=== PATIENT | male | born 1955 | race Caucasian/White ===

== ENCOUNTER 2023-05-10 16:28 | Outpatient (RCR) | payer MEDICARE, SELFPAY | END 2023-08-18 12:00 | disposition home or self-care (01) | LOC: PT 16:28 | PROVIDERS: PCP Internal Medicine | DX: Z96.651 Presence of right artificial knee joint (principal) | CPT/HCPCS: 97110; 97112; 97161; 97530 ==

== ENCOUNTER 2023-06-02 14:13 | Emergency (ER) | payer MEDICARE, OTHER, SELFPAY ==
[2023-06-02 14:30] VITALS: BP 112/78; PULSE 83; RESP 20; O2SAT 99; BMI 28.6
== END 2023-06-02 16:26 | disposition left against medical advice (07) ==
LOC: ER 14:23
PROVIDERS: Emergency Provider Emergency Medicine; PCP Internal Medicine
DX: Z53.21 Procedure and treatment not carried out due to patient leaving prior to being seen by health care provider (principal)

== ENCOUNTER 2023-06-03 02:02 | Inpatient (IN) | payer MEDICARE, SELFPAY ==
[2023-06-03] VITALS (80 sets, daily range): BP systolic 70–125; BP diastolic 40–92; PULSE 24–104; RESP 0–41; TEMP 36.2–36.9; O2SAT 97–100; BMI 27.8; BMI 29.3
--- NOTE | 2023-06-03 02:13 | ED_ITS ---
HPI - GI Bleed General Chief complaint: GI Bleed Stated complaint: WEAKNESS Time Seen by Provider: 06/03/23 02:13 Source: patient Source comment: AND PATIENT Mode of arrival: Wheelchair Limitations: no limitations History of Present Illness HPI Narrative: presents complaining of vomiting blood and tarry stool that started yesterday. feels light headed and has cold sweats when he stands. vomited again this AM. Denies abdominal pain or fever. States he does not take blood thinners and no GERD symptoms. Patient denies past history of cirrhosis or alcohol abuse. No history of varices MD complaint: Reports coffee ground emesis and melena Onset (ago): day(s) Severity: moderate Related Data Home Medications Medication Instructions Recorded Confirmed amlodipine 5 mg-benazepril 40 mg 1 cap PO DAILY 06/03/23 06/03/23 capsule amlodipine 5 mg-benazepril 40 mg 1 cap PO DAILY 06/03/23 06/03/23 capsule aspirin 81 mg tablet,delayed 81 mg PO DAILY 06/03/23 06/03/23 release bupropion HCl 300 mg 24 hr tablet, 300 mg PO DAILY 06/03/23 06/03/23 extended release cyclobenzaprine 10 mg tablet 10 mg PO DAILY 06/03/23 06/03/23 docusate sodium 100 mg capsule 100 mg PO BID 06/03/23 06/03/23 finasteride 5 mg tablet 5 mg PO DAILY 06/03/23 06/03/23 metoprolol succinate 50 mg 50 mg PO DAILY 06/03/23 06/03/23 tablet,extended release 24 hr multivitamin-iron 27 mg-folic acid 1 tab PO DAILY 06/03/23 06/03/23 400 mcg-calcium and minerals tablet (Thera-Tabs M) tamsulosin 0.4 mg capsule 0.4 mg PO DAILY 06/03/23 06/03/23 trazodone 50 mg tablet 50 mg PO DAILY 06/03/23 06/03/23 Allergies Allergy/AdvReac Type Severity Reaction Status Date / Time No Known Drug Allergies Allergy Verified 06/03/23 02:20 Review of Systems ROS Status of ROS 10 or more systems reviewed and unremarkable except as noted in history and below [facility] Surgical History (Updated 06/03/23 @ 02:21 by Sayda Castelan) Social History Smoking status: Never smoker Exam Constitutional Vital Signs, click to edit/add: Last Vital Signs Temp 97.9 F 06/03/23 02:16 Pulse 82 06/03/23 04:15 Resp 20 06/03/23 04:15 BP 107/66 06/03/23 04:15 Pulse Ox 98 06/03/23 04:15 O2 Del Method Room Air 06/03/23 04:15 Common normals: no apparent distress, average body habitus, oriented x3 and alert Eye Common normals: EOMs intact bilaterally and conjunctivae normal Respiratory Common normals: normal respiratory effort, no retractions, no use of accessory muscles and clear to auscultation bilaterally Cardio Common normals: no JVD Rate: tachycardic GI Common normals: Normal to inspection, nondistended, normoactive bowel sounds present, soft to palpation and non-tender Extremity Common normals: normal to inspection and full ROM Neuro Common normals: oriented x3, CN's II-XII intact bilaterally, moves all extremities, no focal motor deficits and no sensory deficits noted Psych Appearance: grossly normal Course Vital Signs Vital signs: Vital Signs Temperature 97.9 F 06/03/23 02:07 Pulse Rate 102 H 06/03/23 02:07 Respiratory Rate 20 06/03/23 02:07 Blood Pressure 112/92 H 06/03/23 02:07 Pulse Oximetry 100 06/03/23 02:07 Oxygen Delivery Method Room Air 06/03/23 02:07 Temperature 97.9 F 06/03/23 02:16 Pulse Rate 82 06/03/23 04:15 Respiratory Rate 20 06/03/23 04:15 Blood Pressure 107/66 06/03/23 04:15 Pulse Oximetry 98 06/03/23 04:15 Oxygen Delivery Method Room Air 06/03/23 04:15 MDM - GI Bleed MDM Narrative Medical decision making narrative: patient presents with UGI bleed. coffee ground emesis and tarry stools. No associated abdominal pain. first vomited Thday night and then again yesterday AM.Came to the ER and waited in the waiting room for a couple of hours and decided to go home. Coffee ground emesis again this AM and light headiness and now he returns. No past history of esophageal varices, GERD or known PUD. He does not take blood thinners. His Hgb is 7.2. He has been given protonix and type and screen for 2U PRBC. His BP systolic did decrease to 76 but has increased after hydration to 107/66 with pulse 80. Discussed with Dr Hines inclusion special education teacher surgeon who is willing to consult on the patient. Discussed with the inclusion special education teacher hospitalist and he would like a CT of the abdomen. CT ordered. CT returns without acute findings. patient admitted to ICU Lab Data Labs: Lab Results 06/03/23 Range/Units 02:05 WBC 9.2 (4.0-11.0) 10^3/uL RBC 2.34 L (4.70-6.10) 10^6/uL Hgb 7.2 L (14.0-18.0) g/dL Hct 22.5 L* (42.0-54.0) % MCV 96.2 H (80.0-94.0) fL MCH 30.8 (25.9-34.0) pg MCHC 32.0 (29.9-35.2) g/dL RDW 13.8 (11.0-15.0) % Plt Count 275 (150-450) 10^3/uL MPV 10.7 (9.5-13.5) fL Neut % (Auto) 61.3 (43.0-75.0) % Lymph % (Auto) 27.8 (20.5-60.0) % [place] % (Auto) 7.7 (1.7-12.0) % Eos % (Auto) 1.8 (0.9-7.0) % Baso % (Auto) 0.5 (0.2-2.0) % Neut # (Auto) 5.6 (1.4-6.5) 10^3/uL Lymph # (Auto) 2.6 (1.2-3.8) 10^3/uL [place] # (Auto) 0.7 (0.3-0.8) 10^3/uL Eos # (Auto) 0.2 (0.0-0.7) 10^3/uL Baso # (Auto) 0.1 (0.0-0.1) 10^3/uL Abs Immat Gran (auto) 0.08 H (0.00-0.03) 10^3/uL Imm/Tot Granulo (auto) 0.9 H (0.0-0.5) % PT 11.9 H (9.0-11.6) sec INR 1.13 Sodium 138 (136-145) mmol/L Potassium 4.0 (3.5-5.1) mmol/L Chloride 105 (98-107) mmol/L Carbon Dioxide 23.5 (21.0-32.0) mmol/L Anion Gap 13.5 BUN 54.0 H (7.0-18.0) mg/dL Creatinine 1.23 (0.70-1.30) mg/dL Est GFR ( Amer) >60 (>=60) Est GFR (Non-Af Amer) 58 L (>=60) BUN/Creatinine Ratio 43.9 Glucose 212 H (74-106) mg/dL Calcium 8.6 (8.5-10.1) mg/dL Total Bilirubin 0.5 (0.2-1.0) mg/dL AST 15 (15-37) U/L ALT 28 (16-63) U/L Alkaline Phosphatase 49 (46-116) U/L Troponin I High Sens 9.9 (4.0-76.1) pg/mL Total Protein 5.9 L (6.4-8.2) g/dL Albumin 3.4 (3.4-5.0) g/dL Globulin 2.5 g/dL Albumin/Globulin Ratio 1.4 Discharge Plan Discharge Chief Complaint: GI Bleed Clinical Impression: Upper gastrointestinal hemorrhage Patient Disposition: Admitted as Observation
--- NOTE | 2023-06-03 02:16 | ECG_ITS ---
The [facility] Test Date: 2023-06-03 Pat Name: SETH PARIS Department: Room: - Gender: Male Civil Designer: : 1955 Requested By: ZARA GALDAMEZ Order Number: [id number] Reading MD: ZARA GALDAMEZ Measurements Intervals [place] Rate: 100 P: -30 VT: 126 QRS: 36 QRSD: 82 T: 48 QT: 334 QTc: 391 Interpretive Statements 1120 Sinus tachycardia 9140 abnormal rhythm ECG No previous ECG available for comparison Electronically Signed On 06-03-2023 14:35:26 EDT by ZARA GALDAMEZ
[2023-06-03 02:55] LABS: Basophils Absolute Auto 0.1 10^3/uL (0.0-0.1); Basophils Percent Auto 0.5 % (0.2-2.0); Eosinophils Absolute Auto 0.2 10^3/uL (0.0-0.7); Eosinophils Percent Auto 1.8 % (0.9-7.0); Hemoglobin 7.2 g/dL (14.0-18.0); Immature Granulocytes Abs Auto 0.08 10^3/uL (0.00-0.03); Immature Granulocytes Pct Auto 0.9 % (0.0-0.5); Lymphocytes Absolute Auto 2.6 10^3/uL (1.2-3.8); Lymphocytes Percent Auto 27.8 % (20.5-60.0); Mean Corpuscular Hemoglobin 30.8 pg (25.9-34.0); Mean Corpuscular Volume 96.2 fL (80.0-94.0); Mean Platelet Volume 10.7 fL (9.5-13.5); Monocytes Absolute Auto 0.7 10^3/uL (0.3-0.8); Monocytes Percent Auto 7.7 % (1.7-12.0); Neutrophils Absolute Auto 5.6 10^3/uL (1.4-6.5); Neutrophils Percent Auto 61.3 % (43.0-75.0); Platelet Count 275 10^3/uL (150-450); Red Blood Count 2.34 10^6/uL (4.70-6.10); Red Cell Distribution Width 13.8 % (11.0-15.0); White Blood Count 9.2 10^3/uL (4.0-11.0)
[2023-06-03 02:56] LABS: INR 1.13; Prothrombin Time 11.9 sec (9.0-11.6)
--- NOTE | 2023-06-03 02:56 | PC.NURSE ---
pt presents to ED, pt states that he was at ER today but it was busy and told it would be a long wait so patient left. pt states that since yesterday he has had n/v and throwing up coffee ground emesis as well as black tarry stools.. pt was told by his pcp saba mcghee that he probably has a GI bleed and to go to ER. pt states that he did have knee replacement surgery 3 weeks ago. no hx of gi bleeds. pt states today he is weak and dizzy and feels like he is going to pass out.
[2023-06-03 02:58] LABS: Hematocrit 22.5 % (42.0-54.0)
[2023-06-03] MEDS: ONDANSETRON PF 4 MG/2 ML VIAL IV (03:02)
[2023-06-03] MEDS: PANTOPRAZOLE SODIUM 40 MG VIAL IV ×2 (03:02→21:01)
[2023-06-03] MEDS: 0.9 % SODIUM CHLORIDE 1,000 ML 999 ML IV (03:02)
[2023-06-03 03:04] LABS: Alanine Aminotransferase 28 U/L (16-63); Albumin Globulin Ratio 1.4; Albumin Level 3.4 g/dL (3.4-5.0); Alkaline Phosphatase 49 U/L (46-116); Anion Gap 13.5; Aspartate Amino Transferase 15 U/L (15-37); BUN Creatinine Ratio 43.9; Bilirubin Total 0.5 mg/dL (0.2-1.0); Calcium 8.6 mg/dL (8.5-10.1); Carbon Dioxide 23.5 mmol/L (21.0-32.0); Chloride 105 mmol/L (98-107); Estimated GFR (African America >60 (>=60); Estimated GFR (Non-African Ame 58 (>=60); Globulin 2.5 g/dL; Glucose 212 mg/dL (74-106); Sodium 138 mmol/L (136-145); Total Protein 5.9 g/dL (6.4-8.2); Troponin I High Sensitivity 9.9 pg/mL (4.0-76.1)
[2023-06-03] MEDS: LORAZEPAM 2 MG/ML 1 ML VIAL 0.5 MG IV (04:37)
[2023-06-03] MEDS: 0.9 % SODIUM CHLORIDE 1,000 ML 75 ML IV (04:41)
--- NOTE | 2023-06-03 04:50 | CT_ITS ---
The [address] [address] Patient Name: SETH PARIS MRN: [id number] date: 1955 Sex: M Assigned Patient Location: ER Current Patient Location: ER Accession/Order Number: [id number] Exam Date: 06/03/2023 05:10 Report Date: 06/03/2023 06:06 At the request of: POLLY BURCIAGA Procedure: CT abdomen pelvis wo con EXAM: CT scan of the abdomen and pelvis without contrast. Dose reduction technique used: Automated exposure control and/or adjustment of the mA and/or kV according to patient size and/or use of iterative reconstruction technique. REASON FOR EXAM: Vomiting, blood in stool COMPARISON: None FINDINGS: NG tube with tip in the stomach. Bilateral renal cysts. Colonic diverticulosis. Left total hip arthroplasty. L2-S1 posterior martinez and pedicle screw fusion, hardware is intact. No renal, ureteral or bladder calculi. No hydronephrosis. Negative appendix. No free fluid in the abdomen or pelvis. No free intraperitoneal air. No dilated or thickened loops of small bowel or colon. Liver, pancreas, spleen, bilateral kidneys, and bilateral adrenal glands are otherwise unremarkable within the limitations of noncontrast CT. No lymphadenopathy in the abdomen or pelvis. Remainder unremarkable. CT/CT abdomen pelvis wo con IMPRESSION: No acute abnormalities in the abdomen or pelvis. Electronically authenticated by: MIKEY CORONADO Date: 06/03/2023 06:06
--- NOTE | 2023-06-03 06:03 | PC.NURSE ---
called poison control. Told them patient took 60xanax, 2 tramadol and a med bottle of vodka. Poison control stated that it would be supportive care and that patient shouldn't get any worse but will remain somulant for a long time, possible 6-12 hours. they recommended labs to check for acetomenophen and aspirin levels.
--- NOTE | 2023-06-03 08:13 | P.HP_ITS ---
H&P: HPI History of Present Illness Chief complaint: WEAKNESS Narrative: patient is a 67-year-old male with past medical history of hypertension, chronic pain due to multiple orthopedic surgeries,benign prostatic hypertrophy,insomnia. Recent reports several weeks ago he had his right knee replaced and since that time has been placed on Celebrex for pain control. He also has a prescription for medical marijuana but he also uses for pain control. He has been taking a baby aspirin along with Celebrex daily. approximately one day ago had two episodes of vomiting blood and dark red bowel movements. He denies any history of GERD, or peptic ulcer disease he also denies any abdominal pain associated with this. Patient denies any fevers or chills said yesterday he developed some dizziness and slight shortness of breath and tachycardia which led him to come to the emergency department. At the time of admission patient feels as if he has improved since the two units of blood have been transfused. We discussed the plan to consult surgery for an EGD today. Review of Systems ROS Narrative ROS: a complete review of systems were reviewed with patient and are positive as below or listed in History of Chief Complaint. General: no fever, chills, night sweats Head: no headache, trauma, visual changes, nausea or vomiting Skin: no reported rashes, itching or sores Eyes: no blurriness of vision Ears: no reported hearing loss, vertigo, earache, or tinnitus Throat: no sore throat, hoarseness, swelling of neck, or tongue pain Heart: no chest pain Lungs: no shortness of breath or cough GI: no diarrhea, vomiting blood x 2 Urinary: no urinary urgency, frequency or pain Neuro: no numbness or tingling HEM:bleeding ENDO: no thyroid problems Psych: no anxiety or depression PFSH PFSH Surgical History Family History Grandmother Family history of cancer, Onset Age: 60 Son Family history of cancer, Onset Age: 17 Father Family history of diabetes mellitus Family history of myocardial infarction, Onset Age: 50 Mother Family history of myocardial infarction, Onset Age: 80 Social History Smoking status: Never smoker Gender Identity: male Meds Home Medications and Allergies Home Medications Medication Instructions Recorded Confirmed Type amlodipine 5 mg-benazepril 40 mg 1 cap PO DAILY 06/03/23 06/03/23 History capsule amlodipine 5 mg-benazepril 40 mg 1 cap PO DAILY 06/03/23 06/03/23 History capsule aspirin 81 mg tablet,delayed 81 mg PO DAILY 06/03/23 06/03/23 History release bupropion HCl 300 mg 24 hr tablet, 300 mg PO DAILY 06/03/23 06/03/23 History extended release cyclobenzaprine 10 mg tablet 10 mg PO DAILY 06/03/23 06/03/23 History docusate sodium 100 mg capsule 100 mg PO BID 06/03/23 06/03/23 History finasteride 5 mg tablet 5 mg PO DAILY 06/03/23 06/03/23 History metoprolol succinate 50 mg 50 mg PO DAILY 06/03/23 06/03/23 History tablet,extended release 24 hr multivitamin-iron 27 mg-folic acid 1 tab PO DAILY 06/03/23 06/03/23 History 400 mcg-calcium and minerals tablet (Thera-Tabs M) tamsulosin 0.4 mg capsule 0.4 mg PO DAILY 06/03/23 06/03/23 History trazodone 50 mg tablet 50 mg PO DAILY 06/03/23 06/03/23 History Allergies Allergy/AdvReac Type Severity Reaction Status Date / Time No Known Drug Allergies Allergy Verified 06/03/23 02:20 Exam Narrative Exam Narrative: General: Patient is alert, and oriented to person, place and time with normal affect, proper hygiene Skin: no visible rashes, or ulcers Head: atraumatic, acephalic Eyes: PERRLA, no nystagmus present, conjunctiva clear, no scleral icterus Ears: normal Tympanic Membrane, normal gross auditory acuity Nose: symmetric, no discharge, no maxillary or frontal sinus tenderness Mouth/Throat: no erythema, exudate, or tonsillar enlargement, normal dentition Neck: no masses palpated, normal thyroid, no JVD or audible carotid bruits Heart: Normal rate and rhythm, no murmurs/rubs/gallops Lungs: no audible wheezes, crackles and normal breath sounds all lung brito Abdomen: Normal audible bowel sounds, no distension, No palpable masses, no organomegaly, no rebound/guarding/ or rigidity Musculoskeletal: muscle atrophy noted, ROM is limited due to being in hospital bed, no swelling bilateral lower extremities Vascular: Normal carotid, radial, femoral, posterior tibial, and dorsalis pedis pulses Lymph: no supraclavicular, axillary, or anterior/posterior cervical adenopathy Neuro: CN II-X grossly intact, normal sensation upper and lower extremities Constitutional Vital Signs, click to edit/add: Last Vital Signs Temp 98.2 F 06/03/23 07:44 Pulse 78 06/03/23 07:44 Resp 21 06/03/23 07:44 BP 105/66 06/03/23 07:44 Pulse Ox 97 06/03/23 07:44 O2 Del Method Room Air 06/03/23 07:44 Results Labs Labs: Short CBC 06/03/23 Range/Units 02:05 WBC 9.2 (4.0-11.0) 10^3/uL Hgb 7.2 L (14.0-18.0) g/dL Hct 22.5 L* (42.0-54.0) % Plt Count 275 (150-450) 10^3/uL BMP 06/03/23 02:05 Sodium 138 Potassium 4.0 Chloride 105 Carbon Dioxide 23.5 BUN 54.0 H Creatinine 1.23 Glucose 212 H Calcium 8.6 Liver Function 06/03/23 Range/Units 02:05 Total Bilirubin 0.5 (0.2-1.0) mg/dL AST 15 (15-37) U/L ALT 28 (16-63) U/L Alkaline Phosphatase 49 (46-116) U/L Albumin 3.4 (3.4-5.0) g/dL Assessment and Plan Assessment and Plan (1) Upper gastrointestinal hemorrhage: Assessment and Plan: patient was typed and screened and transfused two units of PRBCs, tolerated the transfusion well repeat H and H today was 8.2. Patient has remained nothing by mouth for EGD today. Most likely ulcer, will place on Protonix 40 mg every 12 hours. Most likely from the Celebrex and aspirin combination which will be held throughout his hospital stay. Tylenol as needed for pain will also continue IV fluids with LR at one fifty (2) Total knee replacement status: Assessment and Plan: recent surgery is being undergoing outpatient PT OT. (3) Hypertension: Assessment and Plan: continue home amlodipine and benazepril, and metoprolol (4) BPH (benign prostatic hyperplasia): Assessment and Plan: continue Flomax and finasteride (5) Insomnia: Assessment and Plan: continue trazodone Plan patient is a full code SCDs for prophylaxis given patient's active bleeding Patient is under inpatient status is expected to stay more than two days, surge ry consult for EGD
[2023-06-03] MEDS: LACTATED RINGER'S SOLUTION 1,000 ML 150 ML IV (08:46)
--- NOTE | 2023-06-03 09:07 | PC.NURSE ---
06/03/23 0908 call placed out to dr weathers for general surgeon consult, along with pharmacy contacted to change timing of protonix due to administered in er this am at 0300. Carlos Pierre RN
[2023-06-03] MEDS: ACETAMINOPHEN 325 MG TABLET PO (11:16)
[2023-06-03 11:41] LABS: Basophils Percent Auto 0.5 % (0.2-2.0); Eosinophils Absolute Auto 0.1 10^3/uL (0.0-0.7); Eosinophils Percent Auto 1.3 % (0.9-7.0); Hematocrit 24.8 % (42.0-54.0); Hemoglobin 8.2 g/dL (14.0-18.0); Immature Granulocytes Abs Auto 0.05 10^3/uL (0.00-0.03); Immature Granulocytes Pct Auto 0.7 % (0.0-0.5); Lymphocytes Absolute Auto 1.9 10^3/uL (1.2-3.8); Lymphocytes Percent Auto 24.3 % (20.5-60.0); Mean Corpuscular HGB Conc 33.1 g/dL (29.9-35.2); Mean Corpuscular Hemoglobin 30.3 pg (25.9-34.0); Mean Corpuscular Volume 91.5 fL (80.0-94.0); Mean Platelet Volume 10.2 fL (9.5-13.5); Monocytes Absolute Auto 0.6 10^3/uL (0.3-0.8); Monocytes Percent Auto 8.1 % (1.7-12.0); Neutrophils Percent Auto 65.1 % (43.0-75.0); Platelet Count 164 10^3/uL (150-450); Red Blood Count 2.71 10^6/uL (4.70-6.10); Red Cell Distribution Width 14.2 % (11.0-15.0); White Blood Count 7.7 10^3/uL (4.0-11.0)
--- NOTE | 2023-06-03 12:27 | P.GSCN_ITS ---
History of Present Illness Consult details Consult date: 06/03/23 Narrative: patient is a 67-year-old male who presents emergency department yesterday with episodes of coffee-ground emesis as well as melanotic stools. This process began the night prior. He is approximately three weeks status post total knee replacement and has been on Celebrex and aspirin during his recovery. He denies any similar previous episodes. He has not taken any significant amount of anti- inflammatory agents prior to this. He is not on any anticoagulation. He denies any prior stomach related problems. Review of Systems ROS Narrative negative except HPI PFSH PFSH Surgical History (Updated 06/03/23 @ 02:21 by Sayda Castelan) Family History (Updated 06/03/23 @ 10:45 by Jagruti Pierre) Grandmother Family history of cancer, Onset Age: 60 Son Family history of cancer, Onset Age: 17 Father Family history of diabetes mellitus Family history of myocardial infarction, Onset Age: 50 Mother Family history of myocardial infarction, Onset Age: 80 Social History Smoking status: Never smoker Gender Identity: male Meds Home Medications and Allergies Home Medications Medication Instructions Recorded Confirmed Type amlodipine 5 mg-benazepril 40 mg 1 cap PO DAILY 06/03/23 06/03/23 History capsule amlodipine 5 mg-benazepril 40 mg 1 cap PO DAILY 06/03/23 06/03/23 History capsule aspirin 81 mg tablet,delayed 81 mg PO DAILY 06/03/23 06/03/23 History release bupropion HCl 300 mg 24 hr tablet, 300 mg PO DAILY 06/03/23 06/03/23 History extended release cyclobenzaprine 10 mg tablet 10 mg PO DAILY 06/03/23 06/03/23 History docusate sodium 100 mg capsule 100 mg PO BID 06/03/23 06/03/23 History finasteride 5 mg tablet 5 mg PO DAILY 06/03/23 06/03/23 History metoprolol succinate 50 mg 50 mg PO DAILY 06/03/23 06/03/23 History tablet,extended release 24 hr multivitamin-iron 27 mg-folic acid 1 tab PO DAILY 06/03/23 06/03/23 History 400 mcg-calcium and minerals tablet (Thera-Tabs M) tamsulosin 0.4 mg capsule 0.4 mg PO DAILY 07/15/23 07/15/23 History trazodone 50 mg tablet 50 mg PO DAILY 06/03/23 06/03/23 History Allergies Allergy/AdvReac Type Severity Reaction Status Date / Time No Known Drug Allergies Allergy Verified 06/03/23 02:20 Exam Constitutional Vital Signs, click to edit/add: Last Vital Signs Temp 98.4 F 06/03/23 11:00 Pulse 71 06/03/23 12:11 Resp 15 06/03/23 12:11 BP 121/72 H 06/03/23 12:11 Pulse Ox 99 06/03/23 12:11 O2 Del Method Room Air 06/03/23 12:11 HENMT Common normals: normocephalic Neck & C-Spine Common normals: supple GI Common normals: Normal to inspection, nondistended, normoactive bowel sounds present and non-tender Neuro Common normals: oriented x3 Psych Common normals: mental status grossly normal Results Labs Labs: Abnormal lab results 06/03/23 06/03/23 06/03/23 Range/Units 02:05 03:05 11:26 RBC 2.34 L 2.71 L (4.70-6.10) 10^6/uL Hgb 7.2 L 8.2 L (14.0-18.0) g/dL Hct 22.5 L* 24.8 L (42.0-54.0) % MCV 96.2 H (80.0-94.0) fL Abs Immat Gran (auto) 0.08 H 0.05 H (0.00-0.03) 10^3/uL Imm/Tot Granulo (auto) 0.9 H 0.7 H (0.0-0.5) % PT 11.9 H (9.0-11.6) sec BUN 54.0 H (7.0-18.0) mg/dL Est GFR (Non-Af Amer) 58 L (>=60) Glucose 212 H (74-106) mg/dL Total Protein 5.9 L (6.4-8.2) g/dL Crossmatch See Detail Diabetes panel 06/03/23 Range/Units 02:05 Sodium 138 (136-145) mmol/L Potassium 4.0 (3.5-5.1) mmol/L Chloride 105 (98-107) mmol/L Carbon Dioxide 23.5 (21.0-32.0) mmol/L BUN 54.0 H (7.0-18.0) mg/dL Creatinine 1.23 (0.70-1.30) mg/dL Glucose 212 H (74-106) mg/dL Calcium 8.6 (8.5-10.1) mg/dL AST 15 (15-37) U/L ALT 28 (16-63) U/L Alkaline Phosphatase 49 (46-116) U/L Total Protein 5.9 L (6.4-8.2) g/dL Albumin 3.4 (3.4-5.0) g/dL Calcium panel 06/03/23 Range/Units 02:05 Calcium 8.6 (8.5-10.1) mg/dL Albumin 3.4 (3.4-5.0) g/dL Pituitary panel 06/03/23 Range/Units 02:05 Sodium 138 (136-145) mmol/L Potassium 4.0 (3.5-5.1) mmol/L Chloride 105 (98-107) mmol/L Carbon Dioxide 23.5 (21.0-32.0) mmol/L BUN 54.0 H (7.0-18.0) mg/dL Creatinine 1.23 (0.70-1.30) mg/dL Glucose 212 H (74-106) mg/dL Calcium 8.6 (8.5-10.1) mg/dL Adrenal panel 06/03/23 Range/Units 02:05 Sodium 138 (136-145) mmol/L Potassium 4.0 (3.5-5.1) mmol/L Chloride 105 (98-107) mmol/L Carbon Dioxide 23.5 (21.0-32.0) mmol/L BUN 54.0 H (7.0-18.0) mg/dL Creatinine 1.23 (0.70-1.30) mg/dL Glucose 212 H (74-106) mg/dL Calcium 8.6 (8.5-10.1) mg/dL Total Bilirubin 0.5 (0.2-1.0) mg/dL AST 15 (15-37) U/L ALT 28 (16-63) U/L Alkaline Phosphatase 49 (46-116) U/L Total Protein 5.9 L (6.4-8.2) g/dL Albumin 3.4 (3.4-5.0) g/dL All other labs normal. Assessment and Plan Assessment and Plan (1) Upper gastrointestinal hemorrhage: Plan Assessment - probable upper gastrointestinal bleed, patient is currently clinically stable and doubt there is continued active bleeding. Plan - will proceed with upper endoscopy today to evaluate possible etiology, continue PPI therapy
[2023-06-03] MEDS: LACTATED RINGER'S SOLUTION 1,000 ML 50 ML IV (12:29)
--- NOTE | 2023-06-03 13:35 | P.GSPRC_ITS ---
Date of procedure: 06/03/23 Indications for Procedure: Patient is a 67-year-old male who presented to the emergency department yesterday with episodes of coffee-ground emesis as well as melanotic stools. Clinically this was consistent with a gastrointestinal bleed and he was noted to be anemic. He was admitted to the ICU and transfused two units packed red blood cells. He remained hemodynamically stable. With these findings upper endoscopy was recommended. The risks benefits options and potential complications of the procedure were discussed in detail the patient and his and he agrees to proceed and consent was signed. Pre-op diagnosis: upper gastrointestinal bleed Post-op diagnosis: same (and gastric ulcer) Procedure: EGD with biopsy Anesthesia: MAC Surgeon: Yimi Hines Procedure Summary: The patient was brought to the endoscopy suite and placed in the supine and upright position. Under MAC a bite block was placed. The fiberoptic endoscope was passed through the oropharynx into the esophagus. This is easily advanced into the stomach. The stomach was insufflated. No blood was noted within the stomach. Upon inspection prepyloric region there appeared to be a few small gastric ulcers. Again no bleeding was evident. The endoscope was passed through the pylorus into the duodenum. The 1st and 2nd portions of the duodenum appeared unremarkable. The endoscope was then withdrawn into the stomach and retroflexed. The upper portion of the stomach appeared grossly normal. Antral biopsies were obtained ?2. Both sites were hemostatic. The gastroesophageal junction was visualized. This again appeared unremarkable. The stomach was decompressed. The remainder of the esophagus appeared unremarkable on final withdrawal of endosc ope and the procedure was ended. The patient tolerated the procedure well and was transferred to the recovery area in stable condition. Estimated blood loss (mL): 1 Specimens: antral biopsy ?2 Complications: No
[2023-06-04] VITALS (27 sets, daily range): BP systolic 109; BP diastolic 78; PULSE 64–86; RESP 0–22; TEMP 36.3; O2SAT 98
[2023-06-04 05:22] LABS: Basophils Percent Auto 0.7 % (0.2-2.0); Eosinophils Absolute Auto 0.3 10^3/uL (0.0-0.7); Eosinophils Percent Auto 4.2 % (0.9-7.0); Immature Granulocytes Abs Auto 0.03 10^3/uL (0.00-0.03); Immature Granulocytes Pct Auto 0.5 % (0.0-0.5); Lymphocytes Absolute Auto 1.7 10^3/uL (1.2-3.8); Mean Corpuscular HGB Conc 33.6 g/dL (29.9-35.2); Mean Corpuscular Hemoglobin 30.7 pg (25.9-34.0); Mean Corpuscular Volume 91.2 fL (80.0-94.0); Mean Platelet Volume 10.4 fL (9.5-13.5); Monocytes Absolute Auto 0.5 10^3/uL (0.3-0.8); Monocytes Percent Auto 7.7 % (1.7-12.0); Neutrophils Absolute Auto 3.7 10^3/uL (1.4-6.5); Neutrophils Percent Auto 59.9 % (43.0-75.0); Platelet Count 149 10^3/uL (150-450); Red Blood Count 2.61 10^6/uL (4.70-6.10); Red Cell Distribution Width 14.6 % (11.0-15.0); White Blood Count 6.1 10^3/uL (4.0-11.0)
[2023-06-04 05:33] LABS: Alanine Aminotransferase 28 U/L (16-63); Albumin Globulin Ratio 1.3; Albumin Level 3.1 g/dL (3.4-5.0); Alkaline Phosphatase 42 U/L (46-116); Anion Gap 12.3; Aspartate Amino Transferase 19 U/L (15-37); BUN Creatinine Ratio 30.4; Bilirubin Total 0.8 mg/dL (0.2-1.0); Calcium 8.4 mg/dL (8.5-10.1); Carbon Dioxide 25.6 mmol/L (21.0-32.0); Chloride 106 mmol/L (98-107); Estimated GFR (African America >60 (>=60); Estimated GFR (Non-African Ame >60 (>=60); Globulin 2.4 g/dL; Glucose 101 mg/dL (74-106); Potassium 3.9 mmol/L (3.5-5.1); Sodium 140 mmol/L (136-145); Total Protein 5.5 g/dL (6.4-8.2)
[2023-06-04 05:49] LABS: Hematocrit 23.8 % (42.0-54.0)
--- NOTE | 2023-06-04 08:39 | PM.DS1 ---
DS: Providers Provider Date of admission: 06/03/23 07:37 Primary care physician: Stevan Mitchell DO Admitting clinician: Sudeep Greene Consults: 06/03/23 08:05 Consult to General Surgeon Routine Consulting Provider: Yimi Hines Discharging clinician: Dolores Newton DS: Diagnosis Discharge Diagnosis (1) Upper gastrointestinal hemorrhage: (2) Total knee replacement status: (3) Hypertension: (4) BPH (benign prostatic hyperplasia): (5) Insomnia: DS: Summary Hospital Course Hospital Course: (1) Upper gastrointestinal hemorrhage: ?Assessment and Plan: patient was typed and screened and transfused two units of PRBCs, tolerated the transfusion well repeat H and H today was 8.0. Had EGD with diagnosis of ulcer, will place on Protonix 40 mg PO every 12 hours. Most likely from the Celebrex and aspirin combination which will be held throughout his hospital stay should be held at home. carafate at home as well. (2) Total knee replacement status: ?Assessment and Plan: recent surgery is being undergoing outpatient PT OT. (3) Hypertension: ?Assessment and Plan: continue home amlodipine and benazepril, and metoprolol (4) BPH (benign prostatic hyperplasia): ?Assessment and Plan: continue Flomax and finasteride (5) Insomnia: ?Assessment and Plan: continue trazodone Status at Discharge Functional status at discharge: independent ambulation Overall status at discharge: patient is back to baseline Time Spent with Patient Time attestation: Total time spent providing and/or coordinating discharge services: Exam Narrative Exam Narrative: General: Patient is alert, and oriented to person, place and time with normal affect, proper hygiene Skin: no visible rashes, or ulcers Head: atraumatic, acephalic Eyes: PERRLA, no nystagmus present, conjunctiva clear, no scleral icterus Ears: normal Tympanic Membrane, normal gross auditory acuity Nose: symmetric, no discharge, no maxillary or frontal sinus tenderness Mouth/Throat: no erythema, exudate, or tonsillar enlargement, normal dentition Neck: no masses palpated, normal thyroid, no JVD or audible carotid bruits Heart: Normal rate and rhythm, no murmurs/rubs/gallops Lungs: no audible wheezes, crackles and normal breath sounds all lung brito Abdomen: Normal audible bowel sounds, no distension, No palpable masses, no organomegaly, no rebound/guarding/ or rigidity Musculoskeletal: muscle atrophy noted, ROM is limited due to being in hospital bed, no swelling bilateral lower extremities Vascular: Normal carotid, radial, femoral, posterior tibial, and dorsalis pedis pulses Lymph: no supraclavicular, axillary, or anterior/posterior cervical adenopathy Neuro: CN II-X grossly intact, normal sensation upper and lower extremities Constitutional Vital Signs, click to edit/add: Last Vital Signs Temp 97.3 F L 06/04/23 03:00 Pulse 80 06/04/23 08:00 Resp 21 06/04/23 03:10 BP 109/78 06/04/23 03:00 Pulse Ox 98 06/04/23 03:00 O2 Del Method Room Air 06/03/23 14:27 DS: Data Data Completed and Pending Labs on day of discharge: Labs from last 24 hours 06/04/23 06/03/23 06/03/23 03:50 11:26 03:05 WBC 6.1 7.7 RBC 2.61 L 2.71 L Hgb 8.0 L 8.2 L Hct 23.8 L* 24.8 L MCV 91.2 91.5 MCH 30.7 30.3 MCHC 33.6 33.1 RDW 14.6 14.2 Plt Count 149 L 164 MPV 10.4 10.2 Neut % (Auto) 59.9 65.1 Lymph % (Auto) 27.0 24.3 [place] % (Auto) 7.7 8.1 Eos % (Auto) 4.2 1.3 Baso % (Auto) 0.7 0.5 Neut # (Auto) 3.7 5.0 Lymph # (Auto) 1.7 1.9 [place] # (Auto) 0.5 0.6 Eos # (Auto) 0.3 0.1 Baso # (Auto) 0.0 0.0 Abs Immat Gran (auto) 0.03 0.05 H Imm/Tot Granulo (auto) 0.5 0.7 H Sodium 140 Potassium 3.9 Chloride 106 Carbon Dioxide 25.6 Anion Gap 12.3 BUN 21.0 H Creatinine 0.69 L Est GFR ( Amer) >60 Est GFR (Non-Af Amer) >60 BUN/Creatinine Ratio 30.4 Glucose 101 Calcium 8.4 L Total Bilirubin 0.8 AST 19 ALT 28 Alkaline Phosphatase 42 L Total Protein 5.5 L Albumin 3.1 L Globulin 2.4 Albumin/Globulin Ratio 1.3 Crossmatch See Detail Discharge Plan Discharge Disposition: Home, Self-Care (OBS FBC) Condition: Good Discharge Medications: New pantoprazole [Protonix] 40 mg tablet,delayed release (DR/EC) 40 mg PO BID 14 Days Qty: 28 0RF sucralfate [Carafate] 1 gram tablet 1 g PO TID PRN (Reason: stomach upset) 28 Days Qty: 84 0RF Rx Instructions: use before meals as needed Continued bupropion HCl 300 mg tablet extended release 24 hr 300 mg PO DAILY docusate sodium 100 mg capsule 100 mg PO BID finasteride 5 mg tablet 5 mg PO DAILY metoprolol succinate 50 mg tablet extended release 24 hr 50 mg PO DAILY Thera-Tabs M 27 mg iron-400 mcg tablet 1 tab PO DAILY Rx Instructions: HS tamsulosin 0.4 mg capsule 0.4 mg PO DAILY trazodone 50 mg tablet 50 mg PO DAILY cyclobenzaprine 10 mg tablet 10 mg PO DAILY amlodipine-benazepril 5-40 mg capsule 1 cap PO DAILY amlodipine-benazepril 5-40 mg capsule 1 cap PO DAILY Held aspirin 81 mg tablet,delayed release (DR/EC) 81 mg PO DAILY Hold Instructions: Resume on 06/18/23. Activity: resume usual activities as tolerated Diet: advance to your usual diet Patient Instructions: Sucralfate (By mouth) (Carafate), Omeprazole (By mouth), Gastrointestinal Bleeding (IP) Forms: Portal Instructions Follow Up Appointments: Dr. Mitchell 1 week; avoid NSAIDS (celebrex) Dr Jimmy Mitchell [phone] Discharge location: home
[2023-06-04] MEDS: PANTOPRAZOLE SODIUM 40 MG VIAL IV (09:07)
--- NOTE | 2023-06-04 12:33 | PM.GSPN ---
Progress Note: A&P Assessment and Plan (1) Upper gastrointestinal hemorrhage: Assessment and Plan: patient is stable for discharge from a surgical standpoint (2) Total knee replacement status: (3) Hypertension: (4) BPH (benign prostatic hyperplasia): (5) Insomnia: Subjective Subjective Interval history: patient feels well, no further bleeding, tolerating regular diet Exam Narrative Exam Narrative: vvital signs stable, abdomen soft and nontender hemoglobin 8.0 Constitutional Vital Signs, click to edit/add: Last Vital Signs Temp 97.3 F L 06/04/23 03:00 Pulse 64 06/04/23 11:48 Resp 21 06/04/23 10:38 BP 109/78 06/04/23 03:00 Pulse Ox 98 06/04/23 03:00 O2 Del Method Room Air 06/03/23 14:27
--- NOTE | 2023-06-05 16:05 | CM.DCFOLLOWU ---
Person spoke with: Kareem How are you feeling? Much better How is your pain? No pain and no vomiting Did you understand your discharge instructions? yes Do you have any questions about your discharge instructions? no Were you given any prescriptions at discharge? yes Were you able to get your prescriptions filled? yes Do you understand how to take your medications as ordered? yes Do you have any questions about your follow up appointment and do you plan to keep your follow up appointment? Spoke with Dr. Mitchell today and have scheduled repeat blood work and f/u appt Is there anything else that you would like to discuss? no Questions/Comments/Concerns/Other:
== END 2023-06-04 00:45 | disposition home or self-care (01) | DRG 379 ==
LOC: ER 06:24 → ICU 11:09
PROVIDERS: Surgery; Admitting Provider Family Medicine; Emergency Provider Internal Medicine; PCP Internal Medicine; Visit Provider Family Medicine
PROC: 0DB78ZX Excision of Stomach, Pylorus, Via Natural or Artificial Opening Endoscopic, Diagnostic (ICD-10-PCS; principal; 2023-06-03 13:00)
DX: K25.0 Acute gastric ulcer with hemorrhage (principal); I10 Essential (primary) hypertension; N40.0 Benign prostatic hyperplasia without lower urinary tract symptoms; G89.29 Other chronic pain; G47.00 Insomnia, unspecified; K21.9 Gastro-esophageal reflux disease without esophagitis; M19.90 Unspecified osteoarthritis, unspecified site; Z79.899 Other long term (current) 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; Z79.82 Long term (current) use of aspirin; Z79.1 Long term (current) use of non-steroidal anti-inflammatories (NSAID); Z96.651 Presence of right artificial knee joint; Z82.49 Family history of ischemic heart disease and other diseases of the circulatory system; Z83.3 Family history of diabetes mellitus; Z80.9 Family history of malignant neoplasm, unspecified; T39.015A Adverse effect of aspirin, initial encounter; T39.395A Adverse effect of other nonsteroidal anti-inflammatory drugs [NSAID], initial encounter; Y92.019 Unspecified place in single-family (private) house as the place of occurrence of the external cause; Z98.890 Other specified postprocedural states; Z96.649 Presence of unspecified artificial hip joint; Z97.2 Presence of dental prosthetic device (complete) (partial)
CPT/HCPCS: 36415; 36430; 74176; 80053; 84484; 85025; 85610; 86850; 86900; 86901; 86920; 88305; 88342; 93005; 96361; 96374; 96375; 96376; 97110; 99285; J2704; P9016

== ENCOUNTER 2023-06-05 09:46 | Outpatient (OUT) | payer MEDICARE, OTHER, SELFPAY ==
--- NOTE | 2023-06-05 09:53 | US_ITS ---
[address] [address] Patient Name: SETH PARIS MRN: [id number] date: 1955 Sex: M Assigned Patient Location: US Current Patient Location: LAB Accession/Order Number: [id number] Exam Date: 06/05/2023 10:00 Report Date: 06/05/2023 19:48 At the request of: ZARA GALDAMEZ Procedure: US carotid duplex BI EXAMINATION: US carotid duplex BI HISTORY: Bilateral Carotid Bruit R09.89 COMPARISON: No relevant comparison available. TECHNIQUE: Duplex Doppler ultrasound analysis of carotid and vertebral arteries. . Bilateral carotid arterial duplex examination was performed using B-mode, color flow and spectral analysis. Carotid stenosis is reported according to validated velocity parameters, similar to NASCET criteria. FINDINGS: RIGHT CAROTID ARTERY Mild atherosclerotic plaque Subclavian: PSV: 88.5 cm/s cm/s EDV: 14.2 cm/s cm/s CCA: Prox: PSV: 63.8 cm/s cm/s EDV: 22.0 cm/s cm/s Mid: PSV: 50.7 cm/s cm/s EDV: 19.4 cm/s cm/s Distal: PSV: 66.4 cm/s cm/s EDV: 22.0 cm/s cm/s BULB: PSV: 52.0 cm/s cm/s EDV: 19.4 cm/s cm/s ICA: Prox: PSV: 40.0 cm/s cm/s EDV: 20.0 cm/s cm/s Mid: PSV: 76.2 cm/s cm/s EDV: 34.8 cm/s cm/s Distal: PSV: 68.5 cm/s cm/s EDV: 28.3 cm/s cm/s ECA: PSV: 56.8 cm/s cm/s EDV: 11.5 cm/s cm/s VERTEBRAL: PSV: 56.8 cm/s cm/s EDV: 24.5 cm/s cm/s ICA/CCA ratio: PSV: 1.1 EDV: 1.6 LEFT CAROTID ARTERY mild atherosclerotic plaque Subclavian: PSV: 66.8 cm/s cm/s EDV: 0.0 cm/s CCA: Prox: PSV: 66.8 cm/s cm/s EDV: 25.4 cm/s Mid: PSV: 62.8 cm/s cm/s EDV: 22.5 cm/s Distal: PSV: 75.7 cm/s cm/s EDV: 27.3 cm/s BULB: PSV: 49.9 cm/s cm/s EDV: 22.4 cm/s ICA: Prox: PSV: 86.5 cm/s cm/s EDV: 35.3 cm/s Mid: PSV: 86.5 cm/s cm/s EDV: 31.3 cm/s Distal: PSV: 66.8 cm/s cm/s EDV: 29.4 cm/s ECA: PSV: 61.4 cm/s cm/s EDV: 6.5 cm/s VERTEBRAL: PSV: 42.7 cm/s cm/s EDV: 14.7 cm/s ICA/CCA ratio: PSV: 1.1 EDV: 1.3 US/US carotid duplex BI IMPRESSION: 0-49% flow stenosis bilateral internal carotid arteries Spectral Doppler US Thresholds (Reference: Micheal EG, et al. Radiology 2000; 214:247-252) Stenosis (%) PSV (cm/sec) VICA/VCCA 0-49 <150 <2.5 50-69 150-225 2.5-4.0 >70 >225 >4.0 Electronically authenticated by: DAVIN GALAVIZ Date: 06/05/2023 19:48
== END 2023-06-05 09:47 | disposition home or self-care (01) ==
LOC: US 09:47
PROVIDERS: PCP Internal Medicine; Visit Provider Internal Medicine
DX: R09.89 Other specified symptoms and signs involving the circulatory and respiratory systems (principal)
CPT/HCPCS: 93880

== ENCOUNTER 2023-06-06 11:54 | Outpatient (OUT) | payer MEDICARE, OTHER, SELFPAY ==
[2023-06-06 12:14] LABS: Basophils Absolute Auto 0.1 10^3/uL (0.0-0.1); Basophils Percent Auto 1.1 % (0.2-2.0); Eosinophils Absolute Auto 0.2 10^3/uL (0.0-0.7); Eosinophils Percent Auto 3.6 % (0.9-7.0); Hematocrit 29.4 % (42.0-54.0); Hemoglobin 9.7 g/dL (14.0-18.0); Immature Granulocytes Abs Auto 0.02 10^3/uL (0.00-0.03); Immature Granulocytes Pct Auto 0.3 % (0.0-0.5); Lymphocytes Absolute Auto 1.5 10^3/uL (1.2-3.8); Lymphocytes Percent Auto 24.9 % (20.5-60.0); Mean Corpuscular Hemoglobin 30.6 pg (25.9-34.0); Mean Corpuscular Volume 92.7 fL (80.0-94.0); Mean Platelet Volume 10.2 fL (9.5-13.5); Monocytes Absolute Auto 0.6 10^3/uL (0.3-0.8); Monocytes Percent Auto 9.2 % (1.7-12.0); Neutrophils Absolute Auto 3.8 10^3/uL (1.4-6.5); Neutrophils Percent Auto 60.9 % (43.0-75.0); Platelet Count 216 10^3/uL (150-450); Red Blood Count 3.17 10^6/uL (4.70-6.10); Red Cell Distribution Width 14.6 % (11.0-15.0); White Blood Count 6.2 10^3/uL (4.0-11.0)
== END 2023-06-06 11:55 | disposition home or self-care (01) ==
LOC: LAB 11:54
PROVIDERS: PCP Internal Medicine; Visit Provider Internal Medicine
DX: D62 Acute posthemorrhagic anemia (principal)
CPT/HCPCS: 36415; 85025; 86850; 86900; 86901

== ENCOUNTER 2023-07-05 14:08 | Outpatient (OUT) | payer MEDICARE, OTHER, SELFPAY ==
[2023-07-05 14:31] LABS: Basophils Percent Auto 0.4 % (0.2-2.0); Eosinophils Absolute Auto 0.2 10^3/uL (0.0-0.7); Eosinophils Percent Auto 3.5 % (0.9-7.0); Hematocrit 34.2 % (42.0-54.0); Hemoglobin 11.3 g/dL (14.0-18.0); Immature Granulocytes Abs Auto 0.01 10^3/uL (0.00-0.03); Immature Granulocytes Pct Auto 0.2 % (0.0-0.5); Lymphocytes Absolute Auto 1.4 10^3/uL (1.2-3.8); Lymphocytes Percent Auto 28.2 % (20.5-60.0); Mean Corpuscular Hemoglobin 28.6 pg (25.9-34.0); Mean Corpuscular Volume 86.6 fL (80.0-94.0); Mean Platelet Volume 10.1 fL (9.5-13.5); Monocytes Absolute Auto 0.4 10^3/uL (0.3-0.8); Monocytes Percent Auto 8.9 % (1.7-12.0); Neutrophils Absolute Auto 2.8 10^3/uL (1.4-6.5); Neutrophils Percent Auto 58.8 % (43.0-75.0); Platelet Count 198 10^3/uL (150-450); Red Blood Count 3.95 10^6/uL (4.70-6.10); Red Cell Distribution Width 13.3 % (11.0-15.0); White Blood Count 4.8 10^3/uL (4.0-11.0)
== END 2023-07-05 14:09 | disposition home or self-care (01) ==
PROVIDERS: PCP Internal Medicine; Visit Provider Internal Medicine
DX: D62 Acute posthemorrhagic anemia (principal)
CPT/HCPCS: 36415; 85025

== ENCOUNTER 2023-09-06 08:57 | Outpatient (OUT) | payer MEDICARE, SELFPAY ==
--- NOTE | 2023-09-06 09:23 | PM.CN ---
Consult Note: HPI Data of Consult Patient: known to practice within the last 3 years Requesting Physician: Rosibel Hyatt NP Primary Care Provider: Stevan Mitchell DO Consult Narrative Reason for consult: 6 month F/u Narrative: Kareem Bell a pleasant 67 year old male presents for evaluation and management of chronic low back pain. Patient has had his right knee replaced since last visit and just completed PT for that. Today rating pain as a 6/10 ache. Patient reports he is doing well since last appointment, benefits from medical marijuana flexeril and trazadone. cc:: CC: Rosibel Hyatt NP Review of Systems ROS Status of ROS 10 or more systems reviewed and unremarkable except as noted in history and below Musculoskeletal Reports: back pain and joint pain PFSH PFSH Surgical History (Updated 06/03/23 @ 18:27 by Gita Lal) History of esophagogastroduodenoscopy (EGD) ?Z98.890 - Other specified postprocedural states (ICD-10) Status post total hip replacement, right ?Z96.641 - Presence of right artificial hip joint (ICD-10) Total knee replacement status ?Z96.659 - Presence of unspecified artificial knee joint (ICD-10) Family History Grandmother Family history of cancer, Onset Age: 60 Son Family history of cancer, Onset Age: 17 Father Family history of diabetes mellitus Family history of myocardial infarction, Onset Age: 50 Mother Family history of myocardial infarction, Onset Age: 80 Social History Smoking status: Never smoker Gender Identity: male Meds Home Medications and Allergies Home Medications Medication Instructions Recorded Confirmed Type amlodipine 5 mg-benazepril 40 mg 1 cap PO DAILY 06/03/23 06/03/23 History capsule amlodipine 5 mg-benazepril 40 mg 1 cap PO DAILY 06/03/23 06/03/23 History capsule aspirin 81 mg tablet,delayed 81 mg PO DAILY 06/03/23 06/03/23 History release bupropion HCl 300 mg 24 hr tablet, 300 mg PO DAILY 06/03/23 06/03/23 History extended release cyclobenzaprine 10 mg tablet 10 mg PO DAILY 06/03/23 06/03/23 History docusate sodium 100 mg capsule 100 mg PO BID 06/03/23 06/03/23 History finasteride 5 mg tablet 5 mg PO DAILY 06/03/23 06/03/23 History metoprolol succinate 50 mg 50 mg PO DAILY 06/03/23 06/03/23 History tablet,extended release 24 hr multivitamin-iron 27 mg-folic acid 1 tab PO DAILY 06/03/23 06/03/23 History 400 mcg-calcium and minerals tablet (Thera-Tabs M) tamsulosin 0.4 mg capsule 0.4 mg PO DAILY 06/03/23 06/03/23 History trazodone 50 mg tablet 50 mg PO DAILY 06/03/23 06/03/23 History pantoprazole 40 mg tablet,delayed 40 mg PO BID 14 days #28 tabs 06/04/23 Rx release (Protonix) sucralfate 1 gram tablet (Carafate) 1 g PO TID PRN stomach upset 4 06/04/23 Rx weeks #84 tabs Allergies Allergy/AdvReac Type Severity Reaction Status Date / Time No Known Drug Allergies Allergy Verified 06/03/23 02:20 Exam Constitutional Documenting provider has reviewed patient's vital signs: yes Common normals: no apparent distress, oriented x3, healthy appearing, alert and well nourished General appearance: cooperative HENMT Common normals: normocephalic, hearing grossly normal bilaterally and moist oral mucous membranes Head and scalp: normocephalic Eye Common normals: PERRL Pupil: PERRL Neck & C-Spine General: normal visual inspection Cervical spine: cervical ROM abnormal and pain with cervical ROM Chest Common normals: inspection of chest normal Respiratory Common normals: normal respiratory effort, no retractions and no use of accessory muscles Back & Pelvis Thoracic spine/upper back: ROM limited and pain with ROM Lumbar spine/lower back: ROM limited, pain with ROM and straight leg raise negative bilaterally Sacroiliac joints: SI joints normal Other: history of surgery on cervical and thoracic spine rods and screws per pt Neuro Common normals: oriented x3, CN's II-XII intact bilaterally, moves all extremities, no focal motor deficits, no sensory deficits noted and deep tendon reflexes 2+ bilaterally Sensorium/orientation: alert Motor exam: strength 5/5 throughout and no movement abnormalities noted Psych Common normals: mental status grossly normal, thought process normal, cooperative, affect normal, speech normal and activity/motor behavior normal Speech: normal speech Thought process: normal thought process Assessment and Plan Assessment and Plan (1) Chronic pain syndrome: Assessment and Plan: well controlled per patient (2) Medical marijuana use: (3) Insomnia: Plan PCP to take over trazadone f/u prn in the future, would like to meet Dr Bates in the future as he has not met him before.
== END 2023-09-06 08:58 | disposition home or self-care (01) ==
LOC: PM 08:59
PROVIDERS: PCP Internal Medicine; Visit Provider Nurse Practitioner
DX: G89.4 Chronic pain syndrome (principal); Z79.899 Other long term (current) 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; G47.00 Insomnia, unspecified
CPT/HCPCS: G0463

== ENCOUNTER 2023-09-26 12:33 | Outpatient (OUT) | payer MEDICARE, SELFPAY ==
[2023-09-26 13:03] LABS: Basophils Absolute Auto 0.1 10^3/uL (0.0-0.1); Basophils Percent Auto 1.1 % (0.2-2.0); Eosinophils Absolute Auto 0.2 10^3/uL (0.0-0.7); Eosinophils Percent Auto 3.4 % (0.9-7.0); Hematocrit 39.1 % (42.0-54.0); Hemoglobin 12.6 g/dL (14.0-18.0); Immature Granulocytes Abs Auto 0.02 10^3/uL (0.00-0.03); Immature Granulocytes Pct Auto 0.4 % (0.0-0.5); Lymphocytes Absolute Auto 1.4 10^3/uL (1.2-3.8); Mean Corpuscular HGB Conc 32.2 g/dL (29.9-35.2); Mean Corpuscular Hemoglobin 27.2 pg (25.9-34.0); Mean Corpuscular Volume 84.3 fL (80.0-94.0); Mean Platelet Volume 10.6 fL (9.5-13.5); Monocytes Absolute Auto 0.5 10^3/uL (0.3-0.8); Monocytes Percent Auto 9.3 % (1.7-12.0); Neutrophils Absolute Auto 3.4 10^3/uL (1.4-6.5); Neutrophils Percent Auto 60.8 % (43.0-75.0); Platelet Count 189 10^3/uL (150-450); Red Blood Count 4.64 10^6/uL (4.70-6.10); Red Cell Distribution Width 16.4 % (11.0-15.0); White Blood Count 5.6 10^3/uL (4.0-11.0)
== END 2023-09-26 12:34 | disposition home or self-care (01) ==
LOC: LAB 12:38
PROVIDERS: PCP Internal Medicine; Visit Provider Internal Medicine
DX: D62 Acute posthemorrhagic anemia (principal)
CPT/HCPCS: 36415; 85025

== ENCOUNTER 2023-12-28 14:15 | Outpatient (OUT) | payer MEDICARE, SELFPAY ==
[2023-12-28 15:37] LABS: Prostate Specific Antigen Dx 0.83 ng/mL (<=4.00)
== END 2023-12-28 14:16 | disposition home or self-care (01) ==
LOC: LAB 14:16
PROVIDERS: PCP Internal Medicine; Visit Provider Urology
DX: R97.20 Elevated prostate specific antigen [PSA] (principal)
CPT/HCPCS: 36415; 84153

== ENCOUNTER 2024-05-24 13:31 | Outpatient (OUT) | payer MEDICARE, SELFPAY ==
--- OUTSIDE RECORDS SUMMARY | 2024-05-24 13:46 | XMS_ITS | CCD ---
Author Organization [facility] Care Team Providers Care Customer Service Agent Name Role Phone Rudolph Stevan Johnson Unavailable Unavailable Unavailable Stevan Galdamez DO Primary Care Provider Stevan Galdamez DO Primary Care Provider STEVAN GALDAMEZ Primary Care Physician RUDOLPH, DR ZUÑIGA Primary Care Unavailable GONZALEZ ., MARIA EUGENIA Consulting Unavailable DUNN ., DR ANETA Gonzalez Attending Unavailable DUNN ., DR ANETA Gonzalez Admitting Unavailable BALL, DR ZUÑIGA Primary Care Unavailable LAKSHMIPATHY ., NARYANNA Admitting Laura vailable LAKSHMIPATHY ., RUSLAN Attending Laura vailable RUDOLPH, DR ZUÑIGA Admitting Unavailable BALL, DR ZUÑIGA Referring Unavailable BALL, DR ZUÑIGA Attending Unavailable BALL, DR ZUÑIGA Consulting Unavailable BALL, DR ZUÑIGA Primary Care Unavailable BROWN, DAVIN Consulting Unavailable DUNN, AILYN Consulting Unavailable DUNN, AILYN Admitting Unavailable BALL, DR ZUÑIGA Primary Care Unavailable AILYN DUNN Attending Unavailable MISC, DR MORRIS Attending Unavailable MISC, DR MORRIS Consulting Unavailable MISC, DR MORRIS Admitting Unavailable BALL, DR ZUÑIGA Primary Care Unavailable BALL, DR ZUÑIGA Admitting Unavailable BALL, DR ZUÑIGA Attending Unavailable BALL, DR ZUÑIGA Primary Care Unavailable DUNN ., DR ANETA Gonzalez Admitting Unavailable BALL, DR ZUÑIGA Primary Care Unavailable GONZALEZ ., MARIA EUGENIA Consulting Unavailable DUNN ., DR ANETA Gonzalez Attending Unavailable RUDOLPH, DR ZUÑIGA Primary Care Unavailable HALKER ., ELIZ Admitting Unavailable HALKER ., ELIZ Attending Unavailable HALKER ., ELIZ Consulting Unavailable Stevan Galdamez Unavailable Stevan Galdamez DO Primary Care Provider MD ALAN HENLEY Attending Unavailable LAZARUS CORONADO Referring Unavailable RUDOLPH, STEVAN Primary Care Unavailable LAZARUS CORONADO Attending Unavailable LAZARUS CORONADO Admitting Unavailable FOSTER, LAZARUS Referring Unavailable BALL, STEVAN Primary Care Unavailable FOSTER, LAZARUS Attending Unavailable FOSTER, LAZARUS Referring Unavailable BALL, STEVAN Primary Care Unavailable FOSTER, LAZARUS Attending Unavailable BALL, STEVAN Primary Care Unavailable Rosangela BURNHAM Referring Unavailable FOSTER, LAZARUS Attending Unavailable BALL, STEVAN Primary Care Unavailable GERARDO, MONE Attending Unavailable GERARDO, MONE Referring Unavailable BALL, STEVAN Primary Care Unavailable GERARDO, MONE Attending Unavailable GERARDO, MONE Referring Unavailable FOSTER, LAZARUS Referring Unavailable BALL, STEVAN Primary Care Unavailable FOSTER, LAZARUS Attending Unavailable FOSTER, LAZARUS Referring Unavailable BALL, STEVAN Primary Care Unavailable FOSTER, LAZARUS Attending Unavailable FOSTER, LAZARUS Referring Unavailable BALL, STEVAN Primary Care Unavailable FOSTER, LAZARUS Attending Unavailable BALL, STEVAN Primary Care Unavailable FOSTER, LAZARUS Attending Unavailable SELF, SELF Referring Unavailable BALL, STEVAN Primary Care Unavailable GERARDO, MONE Attending Unavailable GERARDO, MONE Referring Unavailable BALL, STEVAN Primary Care Unavailable GERARDO, MONE Attending Unavailable GERARDO, MONE Referring Unavailable FOSTER, LAZARUS Referring Unavailable BALL, STEVAN Primary Care Unavailable FOSTER, LAZARUS Attending Unavailable FOSTER, LAZARUS Admitting Unavailable BALL, STEVAN Primary Care Unavailable SHAHZAD WHITING Consulting Unavailable FOSTER, LAZARUS Referring Unavailable FOSTER, LAZARUS Attending Unavailable NILL, Bonifacio Dee Attending Unavailable BALL, STEVAN Referring Unavailable DUNN, Ailyn Dee Attending Unavailable DUNN, Ailyn R Attending Unavailable ALGHOTHANI, JOAQUIM Attending Unavailable Allergies Allergy Classification Reported Allergen(s) Allergy Type Date of Onset Reaction(s) Facility (10 sources) patient allergy list reviewed by nurse or physicia Propensity to adverse reactions 7 Comment:Done [employer] Other (10 sources) Allergies Reconciled Propensity to adverse reactions Unknown [employer] Other (1 source) No Known Medication Allergies; 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: [No Known Medication Allergies] Propensity to adverse reactions (disorder) [facility] Repository Medications Current Medications Medication Drug Class(es) Dates Sig (Normalized) Sig (Original) 3mL syringe (3 sources) Start: 06-19-2020 3mL syringe 3mL syringe, See Instructions, 6 EA, 1, Use 1 syringe each month, [id number], Supply, 179, cm, 06/05/20 11:23:00 EDT, Height/Length Measured, 88, kg, 06/05/20 11:23:00 EDT, Weight Measured Start Date: 06/19/20 Status: Ordered acetaminophen 325 mg oral tablet (12 sources) Start: 05-08-2023 End: 05-09-2023 take 1 tablet by mouth every six hours acetaminophen (TYLENOL) tablet 1,000 mg Start: 10-10-2022 End: 05-08-2023 take 2 tablets by mouth every four hours as needed Acetaminophen 325 MG tablet Take 2 tablets by mouth every 4 hours as needed for Mild Pain. 50 tablet 1 05/08/2023 Active Start: 10-10-2022 End: 10-11-2022 take 1 tablet by mouth every six hours acetaminophen (TYLENOL) tablet 1,000 mg amLODIPine 5 mg / benazepril hydrochloride 20 mg oral capsule (20 sources) Dihydropyridine Calcium Channel Juvenal, Angiotensin Converting Enzyme Inhibitor Start: 04-11-2024 take 1 capsule by mouth once daily amLODIPine-benazepril 5 mg-20 mg Cap 1 cap(s), Oral, Daily, Refill(s) 0 Start Date: 04/11/24 Status: Ordered Start: 06-08-2023 amLODIPine Bes y-Benazepril HCl 5-20 MG as directed Orally daily for 30 days May, Active Start: 06-09-2021 take 5-40 mg by mout h once daily amLODIPine Besy-Benazepril HCl - 5-40 MG Oral Capsule TAKE 1 CAPSULE BY MOUTH EVERY DAY Quantity: 90 Refills: 0 Ordered: 07-Mar-2022 DO Start : 09-Jun-2021 Active Start: 06-11-2019 amlodipine-saba azepril 5 mg-40 mg oral capsule cap(s), Oral, Refill(s) 0 Start Date: 06/11/19 Status: Ordered aspirin 81 mg delayed release oral tablet (20 sources) Platelet Aggregation Inhibitor, Nonsteroidal Anti-inflammatory Drug Start: 05-10-2023 End: 05-09-2023 take 81 mg by mouth once daily 81 mg, Oral, DAILY, First dose on Mon05/10/23 at 0900, Until Discontinued Start: 05-09-2023 End: 05-09-2023 Aspirin tablet delayed relea se 81 mg Start: 10-10-2022 End: 05-08-[address] tablet Take 1 tab twice a day for 30 days. This medication is for blood clot prevention. 60 tablet 0 05/08/2023 Active aspirin 81 mg oral tablet, disintegrating (2 sources) Start: 06-11-2019 take 1 tablet by mouth once daily aspirin 81 mg oral tablet, disintegrating See Instructions, 1 tab(s) Oral Daily, Refills(s) 0 Start Date: 06/11/19 Status: Ordered 12 hr buPROPion hydrochloride 150 mg extended release oral tablet (20 sources) Aminoketone Start: 04-11-2024 take 1 tablet by mouth once daily buPROPion 150 mg ER Tab 150 mg = 1 tab(s), Oral, Daily, Refills(s) 0 Start Date: 04/11/24 Status: Ordered Start: 01-01-2024 take 1 tablet by adiel th once daily buPROPion 300 mg/24 hours ER Tab 300 mg = 1 tab(s), Oral, Daily, Refills(s) 0 Start Date: 01/01/24 Status: Ordered Start: 01-01-2024 buPROPion 300 mg/24 hours ER Tab Refills(s) 0 Start Date: 01/01/24 Status: Ordered Start: 05-09-2023 End: 05-09-2023 buPROPion (WELLBUTRIN) table t XL 450 mg Start: 05-08-2023 End: 05-08-2023 take 300 mg by mouth once daily 300 mg, Oral, DAILY, F irst dose on Mon05/08/23 at 1230, Until Discontinued Start: 06-30-2022 take 1 tablet by adiel th once daily buPROPion HCl ER, XL, 450 MG Tab SR 24 HR Take 300 mg by mouth daily. 0 06/30/2022 Active Start: 12-01-2021 End: 05-08-2023 buPROPion (WELLBUTRIN) table t XL 150 mg Start: 11-09-2021 End: 10-11-2022 take 300 mg by mouth once daily 300 mg, Oral, DAILY, F irst dose on Mon10/11/22 at 0900, Until Discontinued Do not crush, chew, or divide. Start: 10-04-2021 take 1 tablet by adiel th once daily buPROPion 300 MG tablet XL Take 1 tablet by mouth daily. 0 06/30/2022 Active celecoxib 200 mg oral capsule (7 sources) Nonsteroidal Anti-inflammatory Drug Start: 05-08-2023 End: 06-19-2023 take 1 capsule by mouth twice daily Celecoxib 200 MG capsule Take 1 capsule by mouth 2 times daily. 84 capsule 0 05/08/2023 06/19/2023 Active Start: 10-10-2022 End: 11-21-2022 take 1 capsule by mouth twice daily celecoxib 200 MG capsule Take 1 capsule by mouth 2 times daily. 84 capsule 0 10/10/2022 Active cyclobenzaprine hydrochloride 10 mg oral tablet (12 sources) Muscle Relaxant Start: 06-23-2022 End: 10-11-2022 take 1 tablet by mouth at bedtime cyclobenzaprine 10 MG tablet Take 1 tablet by mouth at bedtime. 0 06/23/2022 Active Start: 03-16-2022 Cyclobenzaprin e HCl - 10 MG Oral Tablet Quantity: 90 Refills: 0 Ordered: 16-Mar-2022 DO Start : 16-Mar-2022 Complete Flexeril TABS Qu antity: 0 Refills: 0 Ordered: 17-Mar-2022 DO Active docusate sodium 100 mg oral capsule (10 sources) Start: 10-10-2022 End: 05-09-2023 take 1 capsule by mouth twice daily Docusate 100 MG capsule Take 1 capsule by mouth 2 times daily. 60 capsule 0 05/08/2023 Active finasteride 5 mg oral tablet (20 sources) 5-alpha Reductase Inhibitor Start: 12-13-2023 End: 12-07-2024 take 1 tablet by mouth once daily finasteride 5 mg Tab 5 mg = 1 tab(s), Oral, Daily, X 90 day(s), # 90 tab(s), Refills(s) 3, Pharmacy: [id number], 179, cm, 12/05/22 9:44:00 EST, Height/Length Dosing, 91, kg, 12/05/22 9:44:00 EST, Weight Dosing Start Date: 12/13/23 Stop Date: 12/07/24 Status: Ordered Start: 05-08-2023 End: 05-09-2023 take 5 mg by mouth once daily 5 mg, Oral, DAILY, First dose on 04/20 at 2000, Until Discontinued Do not split, break, crush or open this medication. Contact pharmacy if altered route or dose needed. Start: 12-10-2021 End: 10-11-2022 take 1 tablet by mouth once daily finasteride 5 mg Tab 5 mg = 1 tab(s), Or al, Daily, # 90 tab(s), Refills(s) 3, Pharmacy: [id number], 179, cm, 12/03/21 9:55:00 EST, Height/Length Dosing, 91.9, kg, 12/03/21 9:55:00 EST, Weight Dosing Start Date: 12/10/21 Status: Ordered Proscar 5 MG Ora l Tablet Quantity: 0 Refills: 0 Ordered: 17-Mar-2022 DO Active gabapentin 100 mg oral capsule (11 sources) Anti-epileptic Agent Start: 06-08-2023 take 1 capsule by mouth every twenty-four hours Gabapentin 100 MG 1 capsule Orally Once a day for 30 days May, Active medicinal cannabis (MEDICINAL MARIJUANA) (6 sources) Misc. Devices (Raised Toilet Seat) Misc (6 sources) Start: 10-07-2022 naloxone hydrochloride 40 mg/ml nasal spray (2 sources) Opioid Antagonist Start: 05-08-2023 End: 05-08-2023 naloxone 4 MG/0.1ML 1 spray by Nasal route once for 1 dose. [place] into the nose as directed. Call 911. If no response in 2 minutes use a new nasal spray in other nostril. Repeat until help arrives. 1 Each 0 05/08/2023 Active omeprazole 20 mg delayed release oral capsule (20 sources) Proton Pump Inhibitor Start: 05-08-2023 take 1 capsule by mouth once daily omeprazole [address] capsule Take 1 capsule by mouth daily. 30 capsule 0 05/08/2023 Active Start: 12-07-2021 End: 05-08-2023 take 1 capsule by mouth once daily in the morning Omeprazole 40 MG Oral Capsule Delayed Release TAKE 1 CAPSULE EVERY MORNING ON AN EMPTY STOMACH followed in 30 MINUTES by BREAKFAST Quantity: 30 Refills: 0 Ordered: 07-Dec-2021 DO Start : 07-Dec-2021 Complete ondansetron 4 mg disintegrating oral tablet (20 sources) Serotonin-3 Receptor Antagonist Start: 06-02-2023 take 1 tablet by mouth every six hours as needed for nausea Ondansetron 4 MG 1 tablet on the tongue and allow to dissolve Orally every 6 hours as needed for nausea for 5 days May, Active Start: 05-08-2023 End: 05-09-2023 take 4 mg intravenously every four hours as needed Ondansetron 4mg/2ml (ZOFRAN) injection 4 mg Start: 10-10-2022 End: 10-11-2022 take 4 mg intravenously every four hours as needed ondansetron 4mg/2ml (ZOFRAN) injection 4 mg oxyCODONE hydrochloride 5 mg oral tablet (6 sources) Opioid Agonist Start: 05-08-2023 End: 05-15-2023 take 1-2 tablets by mouth every four to six hours as needed for pain oxyCODONE 5 MG tablet Indications: Acute postoperative pain of left knee Take 1-2 tabs po q 4-6 hours prn pain. Wean as tolerated. 30 tablet 0 05/08/2023 Active Start: 05-08-2023 End: 05-09-2023 take 5-10 mg by mouth every four hours as needed oxyCODONE (ROXICODONE) tablet 5-10 mg Start: 10-10-2022 End: 10-17-2022 take 1-2 tablets by mouth every four to six hours as needed for pain oxyCODONE 5 MG tablet Indications: Postoperative wound infection of left hip Take 1-2 tabs po q 4-6 hours prn pain. Wean as tolerated. 30 tablet 0 10/10/2022 Active Start: 10-10-2022 End: 10-11-2022 take 5-10 mg by mouth every four hours as needed oxyCODONE (ROXICODONE) tablet 5-10 mg pantoprazole 40 mg delayed release oral tablet (16 sources) Proton Pump Inhibitor Start: 04-11-2024 take 1 tablet by mouth once daily Pantoprazole [address] Tab 40 mg = 1 tab(s), Oral, Daily, Refills(s) 0 Start Date: 04/11/24 Status: Ordered Start: 06-14-2023 take 1 tablet by adiel th every twelve hours Pantoprazole Sodium 40 MG 1 tablet Orally twice a day for 90 days May, Active Start: 05-08-2023 End: 05-09-2023 take 40 mg by mouth once daily 40 mg, Oral, DAILY, Fir st dose on Mon05/08/23 at 1230, Until Discontinued Swallow whole; do not crush or chew. Indications: Inpt Stress Ulcer Prophylaxis Start: 10-11-2022 End: 10-11-2022 take 40 mg by mouth once daily 40 mg, Oral, DAILY, Fir st dose on Mon10/11/22 at 0900, Until Discontinued, Indications: Continuation of Home Therapy, Inpt Stress Ulcer Prophylaxis paxlovid (300/100) 20 x 150 mg & 10 x 100mg tablet therapy pack (2 sources) Start: 11-27-2023 Paxlovid (300/ 100) 20 x 150 MG & 10 x 100MG as directed Orally bid for 5 days Nov, Active tadalafil 20 mg oral tablet (3 sources) Phosphodiesterase 5 Inhibitor Start: 07-04-2023 Cialis 20 mg Tab 20 mg = 1 tab(s), Oral, As Directed, take 1-2hrs. prior to sexual activity, # 30 tab(s), Refills(s) 3, Pharmacy: [facility] #[id number], 179, cm, 12/05/22 9:44:00 EST, Height/Length Dosing, 91, kg, 12/05/22 9:44:00 EST, Weight Dosing Start Date: 07/04/23 Status: Ordered Start: 12-18-2020 Cialis 20 mg T ab 20 mg = 1 tab(s), Oral, As Directed, take 1-2hrs. prior to sexual activity, # 30 tab(s), Refills(s) 3, [facility]: [id number], 179, cm, 12/18/20 10:48:00 EST, Height/Length Dosing, 88, kg, 12/18/20 10:48:00 EST, Weight Dosing Start Date: 12/18/20 Status: Ordered tamsulosin hydrochloride 0.4 mg oral capsule (20 sources) alpha-Adrenergic Juvenal Start: 02-12-2024 End: 02-06-2025 take 1 capsule by mouth twice daily Flomax 0.4 mg Cap 0.4 mg = 1 cap(s), Oral, BID, X 90 day(s), # 180 cap(s), Refills(s) 3, Pharmacy: [facility] #[id number], 179, cm, 01/01/24 12:08:00 EST, Height/Length Dosing, 90, kg, 01/01/24 12:08:00 EST, Weight Dosing Start Date: 02/12/24 Stop Date: 02/06/25 Status: Ordered Start: 12-05-2022 End: 11-30-2023 take 1 capsule by mouth twice daily tamsulosin 0.4 mg Cap 0.4 mg = 1 cap(s), Oral, BID, X 90 day(s), # 180 cap(s), Refills(s) 3, Pharmacy: [facility] #[id number], 179, cm, 12/05/22 9:44:00 EST, Height/Length Dosing, 91, kg, 12/05/22 9:44:00 EST, Weight Dosing Start Date: 12/05/22 Stop Date: 11/30/23 Status: Ordered Start: 03-11-2022 End: 05-09-2023 take 0.4 mg by mouth once daily 0.4 mg, Oral, DAILY, F irst dose on Mon05/08/23 at 1230, Until Discontinued Slow release product. Do not chew or crush Start: 03-11-2022 Tamsulosin HCl - 0.4 MG Oral Capsule Quantity: 90 Refills: 0 Ordered: 11-Mar-2022 DO Start : 11-Mar-2022 Complete Flomax 0.4 MG Or al Capsule Quantity: 0 Refills: 0 Ordered: 17-Mar-2022 DO Active therapeutic multivitamin-minerals tablet (8 sources) Start: 05-08-2023 take 1 tablet by mouth at bedtime therapeutic multivitamin-minerals tablet Take 1 tablet by mouth at bedtime. 30 tablet 0 05/08/2023 Active Start: 10-10-2022 End: 05-08-2023 take 1 tablet by mouth at bedtime therapeutic multivitamin-minerals tablet Take 1 tablet by mouth at bedtime. 30 tablet 0 10/10/2022 05/08/2023 Discontinued (Stop Taking at Discharge) Start: 10-10-2022 take 1 tablet by adiel th at bedtime therapeutic multivitamin-minerals tablet Take 1 tablet by mouth at bedtime. 30 tablet 0 10/10/2022 Active traZODone hydrochloride 50 mg oral tablet (20 sources) Serotonin Reuptake Inhibitor Start: 04-11-2024 take 1 tablet by mouth once daily at bedtime traZODONE 50 mg Tab 50 mg = 1 tab(s), Oral, Once a day (at bedtime), Refills(s) 0 Start Date: 04/11/24 Status: Ordered Start: 09-08-2023 take 1 tablet by adiel th every twenty-four hours traZODone HCl 50 MG 1 tablet at bedtime as needed Orally Once a day for 30 days Aug, Active Start: 12-09-2021 End: 05-09-2023 take 1 tablet by mouth at bedtime traZODone 50 MG tabl et Take 1 tablet by mouth at bedtime. 0 06/23/2022 Active Completed/Discontinued Medications Medication Drug Class(es) Dates Sig (Normalized) Sig (Original) acetaminophen 325 mg / oxyCODONE hydrochloride 5 mg oral tablet (13 sources) Opioid Agonist Start: 03-02-2022 take 1 tablet by mouth three times daily as needed oxyCODONE-Acetamino phen 5-325 MG Oral Tablet TAKE 1 TABLET BY MOUTH THREE TIMES DAILY NEEDED for inflammaction OF sacroiliac joint Quantity: 90 Refills: 0 Ordered: 02-Mar-2022 DO Start : 02-Mar-2022 Active Start: 06-18-2019 take 1 tablet by adiel th twice daily Percocet 2.5/325 oral tablet 1 tab(s), Oral, BID, Refill(s) 0 Start Date: 06/18/19 Status: Ordered End: 05-08-2023 oxyCODONE-acetaminophen 5-32 5 MG per tablet Every 6 hours. 0 05/08/2023 Discontinued (Stop Taking at Discharge) amLODIPine 5 mg oral tablet (2 sources) Dihydropyridine Calcium Channel Juvenal Start: 05-08-2023 End: 05-09-2023 take 5 mg by mouth once daily 5 mg, Oral, DAILY, First dose on Mon05/08/23 at 2000, Until Discontinued Start: 10-11-2022 End: 10-11-2022 take 5 mg by mouth once daily 5 mg, Oral, DAILY, First dose on Mon10/11/22 at 0900, Until Discontinued atorvastatin 40 mg oral tablet (20 sources) HMG-CoA Reductase Inhibitor Start: 05-08-2023 End: 05-09-2023 take 80 mg by mouth once daily 80 mg, Oral, DAILY, First dose on Mon05/08/23 at 2000, Until Discontinued Start: 10-11-2022 End: 10-11-2022 take 80 mg by mouth once daily 80 mg, Oral, DAILY, Fir st dose on Mon10/11/22 at 0900, Until Discontinued Start: 06-11-2019 take 1 tablet by aidel th once daily Lipitor 80 mg Tab 80 mg = 1 tab(s), Oral, Daily, Refills(s) 0 Start Date: 06/11/19 Status: Ordered bisacodyl 10 mg rectal suppository (2 sources) Stimulant Laxative Start: 05-08-2023 End: 05-09-2023 bisacodyl (DULCOLAX) suppository 10 mg Start: 10-10-2022 End: 10-11-2022 bisacodyl (DULCOLAX) supposi tory 10 mg ceFAZolin 2000 mg injection (2 sources) Cephalosporin Antibacterial Start: 05-08-2023 End: 05-09-2023 take 2 g intravenously every eight hours ceFAZolin (ANCEF) 2 g in dextrose 100 mL premix IVPB Start: 10-10-2022 End: 10-11-2022 take 2 g intravenously every eight hours ceFAZolin (ANCEF) 2 g in dextrose 100 mL premix IVPB ciprofloxacin 500 mg oral tablet (2 sources) Quinolone Antimicrobial Start: 11-04-2021 Ciprofloxacin HCl - 500 MG Oral Tablet TAKE 1 TABLET BY MOUTH every 12 hours for 7 days, start 3 days prior to procedure Quantity: 14 Refills: 0 Ordered: 04-Nov-2021 DO Start : 04-Nov-2021 Complete dexamethasone phosphate 10 mg/ml injectable solution (3 sources) Corticosteroid Start: 05-09-2023 End: 05-09-2023 take 10 mg intravenously every twenty-four hours dexAMETHasone (DECADRON) injection 10 mg Start: 10-11-2022 End: 10-11-2022 take 10 mg intravenously every twenty-four hours dexAMETHasone (DECADRON) injection 10 mg Start: 10-11-2022 End: 10-11-2022 dexAMETHasone (DECADRON) injection diclofenac sodium 75 mg delayed release oral tablet (9 sources) Nonsteroidal Anti-inflammatory Drug Start: 07-21-2022 End: 10-10-2022 take 1 tablet by mouth twice daily at mealtime diclofenac EC [address] tablet TAKE 1 TABLET BY MOUTH TWICE DAILY with food 0 07/21/2022 10/10/2022 Discontinued (Stop Taking at Discharge) Start: 03-03-2022 take 1 tablet by adiel th twice daily at mealtime Diclofenac Sodium 75 MG Oral Tablet Delayed Release TAKE 1 TABLET BY MOUTH TWICE DAILY WITH FOOD Quantity: 60 Refills: 0 Ordered: 03-Mar-2022 DO Start : 03-Mar-2022 Complete Diclofenac sodiu m (Voltaren) 1 % Gel gel Apply 2 g topically as needed. 0 Active docusate sodium 50 mg / sennosides, care home 8.6 mg oral tablet (2 sources) Start: 05-08-2023 End: 05-09-2023 senna-docusate (SENOKOT-S) 8 .6-50 MG per tablet 2 tablet Start: 10-10-2022 End: 10-11-2022 senna-docusate (SENOKOT-S) 8 .6-50 MG per tablet 2 tablet 1 ml HYDROmorphone hydrochloride 1 mg/ml cartridge (3 sources) Opioid Agonist Start: 05-08-2023 End: 05-09-2023 take 0.5 mg intravenously every four hours as needed HYDROmorphone (DILAUDID) injection 0.5 mg Start: 10-10-2022 End: 10-11-2022 take 0.5 mg intravenously every four hours as needed HYDROmorphone (DILAUDID) injection 0.5 mg 1 ml ketorolac tromethamine 30 mg/ml cartridge (2 sources) Nonsteroidal Anti-inflammatory Drug, Cyclooxygenase Inhibitor Start: 05-08-2023 End: 05-09-2023 Ketorolac (TORADOL) injection 7.5 mg Start: 10-10-2022 End: 10-11-2022 take 7.5 mg intravenously every six hours ketorolac (TORADOL) injection 7.5 mg lisinopril 20 mg oral tablet (2 sources) Angiotensin Converting Enzyme Inhibitor Start: 05-08-2023 End: 05-09-2023 take 40 mg by mouth once daily 40 mg, Oral, DAILY, First dose on Mon05/08/23 at 1230, Until Discontinued Start: 10-11-2022 End: 10-11-2022 take 40 mg by mouth once daily 40 mg, Oral, DAILY, Fir st dose on Mon10/11/22 at 0900, Until Discontinued 24 hr metoprolol succinate 50 mg extended release oral tablet (20 sources) beta-Adrenergic Juvenal Start: 10-10-2022 End: 10-11-2022 take 25 mg by mouth every twelve hours 25 mg, Oral, EVERY 12 HOURS, First dose on Mon10/10/22 at 2100, Until Discontinued Start: 06-11-2019 End: 05-09-2023 take 1 tablet by mouth once daily Toprol XL 50 mg Tab-ER 50 mg = 1 tab(s), Oral, Daily, Refills(s) 0 Start Date: 06/11/19 Status: Ordered mupirocin 0.02 mg/mg topical ointment (1 source) RNA Synthetase Inhibitor Antibacterial Start: 09-23-2022 End: 10-11-2022 apply 15 g nasal route twice daily mupirocin 2 % ointment Indications: Arthralgia, unspecified joint Each nostril BID x 5 days 15 g 0 09/23/2022 10/11/2022 Discontinued (Stop Taking at Discharge) PARoxetine hydrochloride 20 mg oral tablet (2 sources) Serotonin Reuptake Inhibitor Start: 12-15-2020 take 1 tablet by mouth once daily in the evening PARoxetine HCl - 20 MG Oral Tablet TAKE 1 TABLET BY MOUTH EVERY EVENING Quantity: 90 Refills: 0 Ordered: 08-Sep-2021 DO Start : 15-Dec-2020 Complete 200 ml ropivacaine hydrochloride 2 mg/ml injection (1 source) Amide Local Anesthetic Start: 05-08-2023 End: 05-09-2023 ropivacaine (NAROPIN) 0.2 % On-Q pump 750 mL ropivacaine (NAROPIN) 1 % 400 mg, EPINEPHrine PF (ADRENALIN) 1 MG/ML 1 mg, ketorolac (TORADOL) 30 MG/ML 30 mg, cloNIDine 100 MCG/ML 167 mcg, sodium chloride 0.9% 45 mL 88.67 mL (total volume) (1 source) Start: 10-10-2022 End: 10-10-2022 ropivacaine (NAROPIN) 1 % 400 mg, EPINEPHrine PF (ADRENALIN) 1 MG/ML 1 mg, ketorolac (TORADOL) 30 MG/ML 30 mg, cloNIDine 100 MCG/ML 167 mcg, sodium chloride 0.9% 45 mL 88.67 mL (total volume) Ropivacaine (NAROPIN) 1 % 400 mg, EPINEPHrine PF (ADRENALIN) 1 MG/ML 1 mg, Ketorolac (TORADOL) 30 MG/ML 30 mg, cloNIDine 100 MCG/ML 179 mcg, Sodium chloride 0.9% 45 mL 88.79 mL (total volume) (1 source) Start: 05-08-2023 End: 05-08-2023 Ropivacaine (NAROPIN) 1 % 400 mg, EPINEPHrine PF (ADRENALIN) 1 MG/ML 1 mg, Ketorolac (TORADOL) 30 MG/ML 30 mg, cloNIDine 100 MCG/ML 179 mcg, Sodium chloride 0.9% 45 mL 88.79 mL (total volume) 1000 ml sodium chloride 9 mg/ml injection (5 sources) Start: 05-08-2023 End: 05-09-2023 Sodium chloride 0.9% IV solution Start: 10-10-2022 End: 10-10-2022 sodium chloride 0.9 % irriga tion Start: 10-10-2022 End: 10-11-2022 sodium chloride 0.9% IV solu tion sodium phosphate, dibasic 35 .5 mg/ml / sodium phosphate, monobasic 96.4 mg/ml enema (2 sources) Start: 05-08-2023 End: 05-09-2023 sodium phosphate w/sodium biphosphate (FLEETS) enema 1 enema Start: 10-10-2022 End: 10-11-2022 sodium phosphate w/sodium bi phosphate (FLEETS) enema 1 enema tiZANidine 4 mg oral tablet (2 sources) Central alpha-2 Adrenergic Agonist Start: 06-21-2021 take 0.5-1 tablets by mouth once daily at bedtime as needed for pain tiZANidine HCl - 4 MG Oral Tablet TAKE 1/2 (ONE-HALF) TO 1 (ONE)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 reviewed the previous health record information and history for this patient from Dr. Dunn. I have reviewed and verified the staff HPI to be accurate for this encounter. Review of Systems PHQ Score Initial Depression Screen Score: 0 SCORE ROS - Provider Constitutional: denies weight loss, denies hot flashes. Eyes: denies eye problems. Gastrointestinal: denies nausea, denies vomiting. Cardiovascular: denies chest pain or angina. Integumentary: no dryness Musculoskeletal: denies musculoskeletal symptoms. ENMT: denies otolaryngeal symptoms. Respiratory: no shortness of breath. Heme/Lymph: denies easy bleeding tendency, denies easy bruising tendency. Psychiatric: no confusion, no anxiety. Genitourinary: See HPI. Physical Exam Vitals & Measurements HR: 70(Peripheral) RR: 16 BP: 122/86 HT: 70 in HT: 179 cm WT: 90 kg WT: 198 lb BMI: 28.09 General Appearance: alert, no distress, well nourished, well developed male. Genitourinary: normal scrotum, normal testes, normal urethra, normal epididymis, normal vas deferens/spermatic cord. Flank Pain: none. Bladder: nonpalpable. Prostate: normal prostate, estimated weight 40 gms, no hard nodule observed. Assessment/Plan 1. Elevated PSA (R97.20: Elevated prostate specific antigen [PSA]) PSA: 04/21/20 - 0.62 09/17/21 - 1.85 (3.7 Finasteride) 12/06/22 - 0.62 (1.24 Finasteride) 12/28/23 - 0.83 (1.66 Finasteride) Prostate MRI 10/19/21 - PI-RADS 4. S/p fusion bx 11/09/21 - negative. ELENA: 40g, benign Discussed PSA level w/ pt, has slightly increased from prior. Will continue to monitor. -PSA in 1 yr 2. Enlarged prostate with urinary obstruction (N40.1: Benign prostatic hyperplasia with lower urinary tract symptoms) UA today negative for blood and infection. Taking Finasteride 5mg qd. Increased Tamsulosin 0.4mg qd to bid at prior OV due to pt being PO total hip replacement and having increased frequency. -Cont Finasteride 5mg qd and Tamsulosin 0.4mg bid 3. Hypogonadism male (E29.1: Testicular hypofunction) Injections d/c previously as pt felt they were not beneficial. Last level drawn in 11/2020 - 556 ([phone]). [1] 4. Erectile dysfunction (N52.9: Male erectile dysfunction, unspecified) Cialis 20mg PRN. [2] Follow-up With When Contact Information DUNN Ailyn SHEETS URL In 1 year [facility] [address] [place] [address] [phone] Additional Instructions: w/ PSA Patient Education Prostate Cancer Screening I, Pamela Quezada, personally scribed for Dr. Dunn on 01/01/2024 12:59:23. . Documentation recorded by the scribe, Pamela Quezada, accurately reflects the services(s) I performed and decisions made by me. Authenticated by Dr. Dunn on 01/01/2024 13:00:07. Problem List/Past Medical History Ongoing Anticoagulated Elevated PSA Enlarged prostate with urinary obstruction Erectile dysfunction Former smoker Heart disease Hematuria Hypertension Hypogonadism male Microscopic hematuria Nocturia Nonspecific abnormal findings on radiological and other examination of abdominal area, including retroperitoneum Proteinuria Retrograde ejaculation Umbilical hernia Historical Benign hypertension BPH - benign prostatic hyperplasia Placement of stent Procedure/Surgical History Arthroplasty of knee (04/2023), Arthroplasty of the hip (2021), MRI-US fusion guided prostate biopsy (11/09/2021), Cystoscopy (09/18/2014), Arthroscopy of knee, Cardiac catheterisation, combined right and left heart, Hemorrhoidectomy, neck surgery, Vasectomy. Medications 22 gauge needle, See Instructions, 1 refills 3mL syringe, See Instructions, 1 refills amlodipine-benazepril 5 mg-40 mg oral capsule, Oral aspirin 81 mg oral tablet, disintegrating, See Instructions buPROPion 300 mg/24 hours ER Tab Cialis 20 mg Tab, 20 mg= 1 tab(s), Oral, As Directed, 3 refills finasteride 5 mg Tab, 5 mg= 1 tab(s), Oral, Daily, 3 refills Flomax 0.4 mg Cap, 0.4 mg= 1 cap(s), Oral, Daily, 3 refills Lipitor 80 mg Tab, Oral Toprol XL 50 mg Tab-ER, Oral Allergies No Known Medication Allergies Social History Alcohol Current, 1-2 times pe (more content not included)... Normal [facility] Comment on above: Result Comment: Elec tronically Signed By: Ailyn DUNN MD\.br\Date and Time Signed: 01/01/24 13:00 EST\.br\Electronically Co-Signed By: Pamela Quezada\.antonio\Date and Time Co-Signed: 01/01/24 12:59 EST Lab Reportson 12-29-2023 Lab Reports [id number] [facility] SURGICAL PATH REPORTon 06-07 SURGICAL PATH REPORT 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 - H. PYLORI IMMUNOSTAIN IS NEGATIVE. MARK HAY PATHOLOGIST (Electronic Signature) Date Verified 06/07/2023 LL Clinical Data PRE-OP DIAGNOSIS: Not specified POST-OP DIAGNOSIS: Gastric ulcer PROCEDURES: EGD SPECIMEN: Antrum / Intensive care unit Gross Description Labeled antrum. Received in formalin on a sponge is a single irregular castano segment of soft tissue measuring 0.4 x 0.4 x 0.3 cm. The specimen is entirely submitted in one cassette. MP/adan 06/05/2023 Tissue pathology report for: [facility], [address] [place] [id number]; ____ ____ Print 06/07/2023 11:16 EDT Number: Date/Time: [facility] Department of Pathology [address] [place] [id number] Name: SETH BELL : 1955 [facility] [id number] Number: Gender Male [facility] МАРИНА : n: Admit 67 years Attending ALAN HENLEY Age: Provider: Ordering ALAN HENLEY Provider: Consulti Surgical Pathology Report ng: ACCESSION: COLLECTED DATE/TIME: RECEIVED DATE/TIME: PATHOLOGIST: [id number] 06/03/2023 12:04 EDT 06/05/2023 12:04 EDT BHARTI SHEETS, MARK MELENDEZ Gross Description PATHOLOGY SERVICES PROVIDED BY [employer] (CLIA #[id number]) in cooperation with [facility] at [address] [place] [address] (CLIA #[id number]) Microscopic Diagnosis The final diagnosis is based on a microscopic exam of service center representative sections. NOTE: One or more of the reagents used to perform assays on this specimen MAY have contained components considered to be analyte specific reagents ( ASRs). ASRs have not been cleared or approved by the U.S. Food and Drug Administration. The performance characteristics of these assays have been determined by the Department of Pathology at [facility]. This assay was performed subsequent to the H and E examination. Appropriate positive and negative controls were examined with appropriate reactivity. Codes CPT CODE: 72726 + [id number] ____ ____ Print 06/07/2023 11:16 EDT Number: Date/Time: Normal [facility] Comment on above: Performed By: #### [id number] #### [facility] Laboratory Services [id number] [place] [id number] Conflicts Analyst: Rainer Doss MD BASIC METABOLIC PANELon 04-21 Anion gap [Moles/Vol] 7 mmol/L Low [facility] Calcium [Mass/Vol] 8.1 mg/dL Low [facility] Chloride [Moles/Vol] 103 mmol/L [facility] Comment on above: Please note: Triglyc eride levels of 600mg/dL or higher may positively bias chloride results by approximately 2.1 mmol CO2 [Moles/Vol] 22 mmol/L [facility] Creatinine [Mass/Vol] 0.60 mg/dL Low [facility] GFR COMMENT Average GFR for 60-6 9 years old = 85. [facility] Comment on above: Chronic Kidney disea se, GFR = <60. Kidney failure, GFR = <15. The GFR estimate is not adjusted for extreme body surface area or acute process, nor has it been validated for women or ethnic groups other than and . Testing performed at [place], [place] [address] GFR/1.73 sq M.predicted among blacks MDRD (S/P/Bld) [Vol rate/Area] 172 mL/min/{1.73_m2} ml/min/1.73sq .m [facility] GFR/1.73 sq M.predicted among non-blacks MDRD (S/P/Bld) [Vol rate/Area] 142 mL/min/{1.73_m2} ml/min/1.73sq .m [facility] Glucose post fast [Mass/Vol] 136 mg/dL High [facility] Comment on above: NORMAL <100 mg/dL PREDIABETES 101-126 mg/dL DIABETES 126 mg/dL or higher Interpretation and review of laboratory results Abnormal [facility] Potassium [Moles/Vol] 4.0 mmol/L [facility] Sodium [Moles/Vol] 132 mmol/L Low [facility] Urea nitrogen [Mass/Vol] 18 mg/dL [facility] BMP FASTINGon 05-09-2023 Anion gap [Moles/Vol] 7 mmol/L Low 8-16 [facility] Comment on above: Performed By: #### B MPF ####Testing performed at [address] [address]#### ACBC ####Testing performed at [address] [address] Calcium [Mass/Vol] 8.1 mg/dL Low 8.4-10.2 [facility] Comment on above: Performed By: #### B MPF ####Testing performed at [address] [address]#### ACBC ####Testing performed at [address] [address] Chloride [Moles/Vol] 103 mmol/L Normal 98-107 [facility] Comment on above: Result Comment: Grey romero note: Triglyceride levels of 600mg/dL or higher may positively bias chloride results by approximately 2.1 mmol Performed By: #### B MPF ####Testing performed at [address] [address]#### ACBC ####Testing performed at [address] [address] CO2 [Moles/Vol] 22 mmol/L Normal 22-30 [facility] Comment on above: Performed By: #### B MPF ####Testing performed at [address] [address]#### ACBC ####Testing performed at [address] [address] Creatinine [Mass/Vol] 0.60 mg/dL Low 0.7-1.2 [facility] Comment on above: Performed By: #### B MPF ####Testing performed at [address] [address]#### ACBC ####Testing performed at [address] [address] EST. GFR, 172 ml/min/1.73sq.m Normal [facility] Comment on above: Performed By: #### B MPF ####Testing performed at [address] [address]#### ACBC ####Testing performed at [address] [address] EST. GFR,Non 142 ml/min/1.73sq.m [facility] Comment on above: Performed By: #### B MPF ####Testing performed at [address] [address]#### ACBC ####Testing performed at [address] [address] GFR Information Average GFR for 60-6 9 years old = 85. [facility] Comment on above: Result Comment: Candlemaker katarzyna Kidney disease, GFR = <60. Kidney failure, GFR = <15. The GFR estimate is not adjusted for extreme body surface area or acute process, nor has it been validated for women or ethnic groups other than and . Testing performed at [place] [address] Performed By: #### B MPF ####Testing performed at [address] [address]#### ACBC ####Testing performed at [address] [address] Glucose [Mass/Vol] 136 mg/dL High 70-100 [facility] Comment on above: Result Comment: NORMAL <100 mg/dL PREDIABETES 101-126 mg/dL DIABETES 126 mg/dL or higher Performed By: #### B MPF ####Testing performed at [address] [address]#### ACBC ####Testing performed at [address] [address] Potassium [Moles/Vol] 4.0 mmol/L Normal 3.5-5.1 [facility] Comment on above: Performed By: #### B MPF ####Testing performed at [address] [address]#### ACBC ####Testing performed at [address] [address] Sodium [Moles/Vol] 132 mmol/L Low 137-145 [facility] Comment on above: Performed By: #### B MPF ####Testing performed at [address] [address]#### ACBC ####[place] [address] Urea nitrogen [Mass/Vol] 18 mg/dL Normal 7-20 [facility] Comment on above: Performed By: #### B MPF ####Testing performed at [place] [id number]#### ACBC ####[place] [address] CBCon 05-09-2023 ABSOLUTE BAS 0.0 10*3/uL Normal 0.0-0.2 [facility] Comment on above: Performed By: #### B MPF ####Testing performed at [place] [id number]#### ACBC ####[place] [address] ABSOLUTE EOS 0.0 10*3/uL Normal 0.0-0.7 [facility] Comment on above: Performed By: #### B MPF ####Testing performed at [place] [id number]#### ACBC ####Testing performed at [place] [id number] ABSOLUTE NEUTROPHIL COUNT 10.1 10*3/uL High 1.4-6.5 [facility] Comment on above: Performed By: #### B MPF ####Testing performed at [address] [address]#### ACBC ####Testing performed at [place] [id number] Basophils/100 WBC (Bld) 0.0 % Normal 0.0-2.0 [facility] Comment on above: Performed By: #### B MPF ####Testing performed at [address] [address]#### ACBC ####Testing performed at [address] [place] [address] DTYPE AUTO DIFF Normal [facility] Comment on above: Performed By: #### B MPF ####Testing performed at [address] [place] [address]#### ACBC ####Testing performed at [address] [address] Eosinophils/100 WBC (Bld) 0.0 % Normal 0.0-11.0 [facility] Comment on above: Performed By: #### B MPF ####Testing performed at [address] [address]#### ACBC ####Testing performed at [address] [place] [address] Lymphocytes (Bld) [#/Vol] 0.8 10*3/uL Low 1.2-3.4 [facility] Comment on above: Performed By: #### B MPF ####Testing performed at [address] [address]#### ACBC ####Testing performed at [address] [address] Lymphocytes/100 WBC (Bld) 6.7 % Low 20.0-55.0 [facility] Comment on above: Performed By: #### B MPF ####Testing performed at [address] [address]#### ACBC ####Testing performed at [address] [address] Monocytes (Bld) [#/Vol] 1.0 10*3/uL High 0.0-0.7 [facility] Comment on above: Performed By: #### B MPF ####Testing performed at [address] [address]#### ACBC ####Testing performed at [address] [address] Monocytes/100 WBC (Bld) 8.3 % Normal 0.0-10.0 [facility] Comment on above: Performed By: #### B MPF ####Testing performed at [place] [id number]#### ACBC ####Testing performed at [place] [id number] Neutrophils/100 WBC (Bld) 85.0 % High 37.0-75.0 [facility] Comment on above: Performed By: #### B MPF ####[place] [address]#### ACBC ####[place] [address] Erythrocyte distribution width (RBC) [Ratio] 13.8 % Normal 11.5-14.5 [facility] Comment on above: Performed By: #### B MPF ####[place] [address]#### ACBC ####[place] [address] Hematocrit (Bld) [Volume fraction] 25.8 % Low 42.0-52.0 [facility] Comment on above: Performed By: #### B MPF ####[place] [address]#### ACBC ####Testing performed at [place] [id number] Hemoglobin (Bld) [Mass/Vol] 9.0 g/dL Low 14.0-18.0 [facility] Comment on above: Performed By: #### B MPF ####Testing performed at [place] [id number]#### ACBC ####Testing performed at [place] [id number] MCH (RBC) [Entitic mass] 31.3 pg Normal 26.0-35.0 [facility] Comment on above: Performed By: #### B MPF ####Testing performed at [place] [id number]#### ACBC ####Testing performed at [address] [address] MCHC (RBC) [Mass/Vol] 34.8 g/dL Normal 27.0-37.0 [facility] Comment on above: Performed By: #### B MPF ####Testing performed at [place] [id number]#### ACBC ####Testing performed at [address] [address] MCV (RBC) [Entitic vol] 90.0 fL Normal 80.0-100.0 [facility] Comment on above: Performed By: #### B MPF ####Testing performed at [place] [id number]#### ACBC ####Testing performed at [address] [address] Platelet mean volume (Bld) [Entitic vol] 9.1 fL Normal 7.4-11.0 [facility] Comment on above: Performed By: #### B MPF ####Testing performed at [place] [id number]#### ACBC ####Testing performed at [address] [address] Platelets (Bld) [#/Vol] 149 10*3/uL Normal 130-400 [facility] Comment on above: Performed By: #### B MPF ####Testing performed at [place] [id number]#### ACBC ####Testing performed at [address] [address] RBC (Bld) [#/Vol] 2.87 10*6/uL Low 4.0-6.1 [facility] Comment on above: Performed By: #### B MPF ####Testing performed at [place] [id number]#### ACBC ####Testing performed at [address] [address] WBC (Bld) [#/Vol] 11.9 10*3/uL High 3.6-11.0 [facility] Comment on above: Performed By: #### B MPF ####Testing performed at [facility] [place] [address]#### ACBC ####Testing performed at [facility] [place] [address] CBC, EDIF, PLATELETon 2022 ABSOLUTE BASOPHIL COUNT 0.0 10*3/uL 0.0 - 0.2 10*3/uL [facility] Basophils/100 WBC (Bld) 0.0 % 0.0 - 2.0 % [facility] Differential cell count method Nom (Bld) AUTO DIFF % [facility] Eosinophils (Bld) [#/Vol] 0.0 10*3/uL 0.0 - 0.7 10*3/uL [facility] Eosinophils/100 WBC (Bld) 0.0 % 0.0 - 11.0 % [facility] Erythrocyte distribution width (RBC) [Ratio] 13.8 % 11.5 - 14.5 % [facility] Hematocrit (Bld) [Volume fraction] 25.8 % Low 42.0 - 52.0 % [facility] Hemoglobin (Bld) [Mass/Vol] 9.0 g/dL Low [facility] Interpretation and review of laboratory results Abnormal [facility] Lymphocytes (Bld) [#/Vol] 0.8 10*3/uL Low 1.2 - 3.4 10*3/uL [facility] Lymphocytes/100 WBC (Bld) 6.7 % Low 20.0 - 55.0 % [facility] MCH (RBC) [Entitic mass] 31.3 pg 26.0 - 35.0 PG [facility] MCHC (RBC) [Mass/Vol] 34.8 g/dL [facility] MCV (RBC) [Entitic vol] 90.0 fL [facility] Monocytes (Bld) [#/Vol] 1.0 10*3/uL High 0.0 - 0.7 10*3/uL [facility] Monocytes/100 WBC (Bld) 8.3 % 0.0 - 10.0 % [facility] Neutrophils (Bld) [#/Vol] 10.1 10*3/uL High 1.4 - 6.5 10*3/uL [facility] Neutrophils/100 WBC (Bld) 85.0 % High 37.0 - 75.0 % [facility] Platelet mean volume (Bld) [Entitic vol] 9.1 fL [facility] Platelets (Bld) [#/Vol] 149 10*3/uL 130 - 400 10*3/uL [facility] RBC (Bld) [#/Vol] 2.87 10*6/uL Low 4.0 - 6.1 10*6/uL [facility] WBC (Bld) [#/Vol] 11.9 10*3/uL High 3.6 - 11.0 10*3/uL [facility] MRSA SCREENon 05-08-2023 MRSA DNA DALIA+probe Ql (Unsp spec) Negative Normal NEGATIVE [facility] Comment on above: Performed By: #### M RSAST ####[place] [address] STAPH AUREUS SCREEN Negative Normal NEGATIVE [facility] Comment on above: Result Comment: TEST ING PERFORMED BY PCR Performed By: #### M RSAST ####[place] [address] SCREEN: MRSA ONLY, NARES (IS OLATION SCREEN)on 05-08-2023 MRSA isol Org specific cx Ql (Nose) Negative NEGATIVE [facility] STAPHYOCOCCUS AUREUS BY PCR Negative NEGATIVE [facility] Comment on above: TESTING PERFORMED BY PCR [facility] XR KNEE LEFT 2 VIEWSon 05-08 XR KNEE LEFT 2 VIEWS EXAM: XR KNEE LEFT 2 VIEWS INDICATION: tka COMPARISON: None. TECHNIQUE: Radiographs as described above FINDINGS/IMPRESSION: Status post total knee arthroplasty without evidence of complication. Expected perioperative soft tissue changes. Normal [facility] XR Knee - left 2 Viewson FINDINGS/IMPRESSION: Status post total knee arthroplasty without evidence of complication. Expected perioperative soft tissue changes. RADIOLOGY EXAM: XR KNEE LEFT 2 VIEWS INDICATION: tka COMPARISON: None. TECHNIQUE: Radiographs as described above RADIOLOGY Clinton Dickens MD - 05/08/2023 EXAM: XR KNEE LEFT 2 VIEWS INDICATION: tka COMPARISON: None. TECHNIQUE: Radiographs as described above IMPRESSION FINDINGS/IMPRESSION: Status post total knee arthroplasty without evidence of complication. Expected perioperative soft tissue changes. [facility] Radiology Study observation (narrative) [facility] XR Knee - left 2 ViewsOrdere d By: Clinton Dickens on 05-08-2023 [facility] Work Phone: CBCon 04-13-2023 ABSOLUTE BAS 0.0 10*3/uL Normal 0.0-0.2 [facility] Comment on above: Performed By: #### U MAC #### Testing performed at [address] [address] ABSOLUTE EOS 0.2 10*3/uL Normal 0.0-0.7 [facility] Comment on above: Performed By: #### U MAC #### Testing performed at [address] [address] ABSOLUTE NEUTROPHIL COUNT 3.8 10*3/uL Normal 1.4-6.5 [facility] Comment on above: Performed By: #### U MAC #### Testing performed at [address] [address] Basophils/100 WBC (Bld) 0.5 % Normal 0.0-2.0 [facility] Comment on above: Performed By: #### U MAC #### Testing performed at [address] [address] DTYPE AUTO DIFF Normal [facility] Comment on above: Performed By: #### U MAC #### Testing performed at [address] [address] Eosinophils/100 WBC (Bld) 2.6 % Normal 0.0-11.0 [facility] Comment on above: Performed By: #### U MAC #### Testing performed at [address] [address] Lymphocytes (Bld) [#/Vol] 1.3 10*3/uL Normal 1.2-3.4 [facility] Comment on above: Performed By: #### U MAC #### Testing performed at [address] [address] Lymphocytes/100 WBC (Bld) 22.9 % Normal 20.0-55.0 [facility] Comment on above: Performed By: #### U MAC #### Testing performed at [address] [address] Monocytes (Bld) [#/Vol] 0.5 10*3/uL Normal 0.0-0.7 [facility] Comment on above: Performed By: #### U MAC #### Testing performed at [address] [address] Monocytes/100 WBC (Bld) 8.9 % Normal 0.0-10.0 [facility] Comment on above: Performed By: #### U MAC #### Testing performed at [address] [address] Neutrophils/100 WBC (Bld) 65.1 % Normal 37.0-75.0 [facility] Comment on above: Performed By: #### U MAC #### Testing performed at [address] [address] Erythrocyte distribution width (RBC) [Ratio] 14.6 % High 11.5-14.5 [facility] Comment on above: Performed By: #### U MAC #### Testing performed at [address] [address] Hematocrit (Bld) [Volume fraction] 40.8 % Low 42.0-52.0 [facility] Comment on above: Performed By: #### U MAC #### Testing performed at [address] [address] Hemoglobin (Bld) [Mass/Vol] 13.5 g/dL Low 14.0-18.0 [facility] Comment on above: Performed By: #### U MAC #### Testing performed at [address] [address] MCH (RBC) [Entitic mass] 29.9 pg Normal 26.0-35.0 [facility] Comment on above: Performed By: #### U MAC #### Testing performed at [address] [address] MCHC (RBC) [Mass/Vol] 33.0 g/dL Normal 27.0-37.0 [facility] Comment on above: Performed By: #### U MAC #### Testing performed at [address] [address] MCV (RBC) [Entitic vol] 90.7 fL Normal 80.0-100.0 [facility] Comment on above: Performed By: #### U MAC #### Testing performed at [address] [address] Platelet mean volume (Bld) [Entitic vol] 8.9 fL Normal 7.4-11.0 [facility] Comment on above: Performed By: #### U MAC #### Testing performed at [address] [address] Platelets (Bld) [#/Vol] 157 10*3/uL Normal 130-400 [facility] Comment on above: Performed By: #### U MAC #### Testing performed at [address] [address] RBC (Bld) [#/Vol] 4.50 10*6/uL Normal 4.0-6.1 [facility] Comment on above: Performed By: #### U MAC #### Testing performed at [address] [address] WBC (Bld) [#/Vol] 5.9 10*3/uL Normal 3.6-11.0 [facility] Comment on above: Performed By: #### U MAC #### Testing performed at [address] [address] CMP FASTINGon 04-13-2023 A:G RATIO 1.6 RATIO Normal 1.3-2.2 [facility] Comment on above: Performed By: #### U MAC #### Testing performed at [address] [address] ALBUMIN 4.4 G/dl Normal 3.5-5.0 [facility] Comment on above: Performed By: #### U MAC #### Testing performed at [address] [address] ALP [Catalytic activity/Vol] 52 U/L Normal 38-126 [facility] Comment on above: Performed By: #### U MAC #### Testing performed at [address] [address] ALT [Catalytic activity/Vol] 41 U/L Normal 17-63 [facility] Comment on above: Performed By: #### U MAC #### Testing performed at [address] [address] AST [Catalytic activity/Vol] 29 U/L Normal 15-41 [facility] Comment on above: Performed By: #### U MAC #### Testing performed at [address] [address] Bilirubin [Mass/Vol] 1.6 mg/dL High 0.2-1.2 [facility] Comment on above: Performed By: #### U MAC #### Testing performed at [address] [address] Calcium [Mass/Vol] 9.8 mg/dL Normal 8.4-10.2 [facility] Comment on above: Performed By: #### U MAC #### Testing performed at [address] [address] Chloride [Moles/Vol] 105 mmol/L Normal 98-107 [facility] Comment on above: Performed By: #### U MAC #### Testing performed at [address] [address] CO2 [Moles/Vol] 24 mmol/L Normal 22-30 [facility] Comment on above: Performed By: #### U MAC #### Testing performed at [address] [address] Creatinine [Mass/Vol] 0.67 mg/dL Normal 0.66-1.25 [facility] Comment on above: Performed By: #### U MAC #### Testing performed at [address] [place] [address] EST. GFR, 151 ml/min/1.73sq.m [facility] Comment on above: Performed By: #### U MAC #### Testing performed at [address] [place] [address] EST. GFR,Non 125 ml/min/1.73sq.m [facility] Comment on above: Performed By: #### U MAC #### Testing performed at [address] [address] GFR Information Average GFR for 60-6 9 years old = 85. Normal [facility] Comment on above: Result Comment: Candlemaker katarzyna Kidney disease, GFR = <60. Kidney failure, GFR = <15. The GFR estimate is not adjusted for extreme body surface area or acute process, nor has it been validated for women or ethnic groups other than and . Performed By: #### U MAC #### Testing performed at [address] [address] Glucose [Mass/Vol] 106 mg/dL High 70-100 [facility] Comment on above: Result Comment: NORMAL <100 mg/dL PREDIABETES 101-126 mg/dL DIABETES 126 mg/dL or higher Performed By: #### U MAC #### Testing performed at [address] [address] Potassium [Moles/Vol] 4.2 mmol/L Normal 3.5-5.1 [facility] Comment on above: Performed By: #### U MAC #### Testing performed at [address] [address] Protein [Mass/Vol] 7.2 g/dL Normal 6.3-8.2 [facility] Comment on above: Performed By: #### U MAC #### Testing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 0.2-1.2 [facility] Comment on above: Performed By: #### C MPF, ACBC, PT ####Testing performed at [address] [address] Calcium [Mass/Vol] 9.9 mg/dL Normal 8.4-10.2 [facility] Comment on above: Performed By: #### C MPF, ACBC, PT ####Testing performed at [address] [address] Chloride [Moles/Vol] 100 mmol/L Normal 98-107 [facility] Comment on above: Performed By: #### C MPF, ACBC, PT ####Testing performed at [address] [address] CO2 [Moles/Vol] 23 mmol/L Normal 22-30 [facility] Comment on above: Performed By: #### C MPF, ACBC, PT ####Testing performed at [address] [address] Creatinine [Mass/Vol] 0.60 mg/dL Low 0.66-1.25 [facility] Comment on above: Performed By: #### C MPF, ACBC, PT ####Testing performed at [address] [address] EST. GFR, 172 ml/min/1.73sq.m [facility] Comment on above: Performed By: #### C MPF, ACBC, PT ####Testing performed at [address] [address] EST. GFR,Non 142 ml/min/1.73sq.m [facility] Comment on above: Performed By: #### C MPF, ACBC, PT ####Testing performed at [address] [place] [address] GFR Information Average GFR for 60-6 9 years old = 85. Normal [facility] Comment on above: Result Comment: Candlemaker katarzyna Kidney disease, GFR = <60. Kidney failure, GFR = <15. The GFR estimate is not adjusted for extreme body surface area or acute process, nor has it been validated for women or ethnic groups other than and . Performed By: #### C MPF, ACBC, PT ####Testing performed at [address] [address] Glucose [Mass/Vol] 127 mg/dL High 70-100 [facility] Comment on above: Result Comment: NORMAL <100 mg/dL PREDIABETES 101-126 mg/dL DIABETES 126 mg/dL or higher Performed By: #### C MPF, ACBC, PT ####Testing performed at [address] [address] Potassium [Moles/Vol] 4.1 mmol/L Normal 3.5-5.1 [facility] Comment on above: Performed By: #### C MPF, ACBC, PT ####Testing performed at [address] [address] Protein [Mass/Vol] 7.1 g/dL Normal 6.3-8.2 [facility] Comment on above: Performed By: #### C MPF, ACBC, PT ####Testing performed at [address] [address] Sodium [Moles/Vol] 136 mmol/L Normal 136-145 [facility] Comment on above: Performed By: #### C MPF, ACBC, PT ####Testing performed at [address] [address] Urea nitrogen [Mass/Vol] 12 mg/dL Normal 7-20 [facility] Comment on above: Performed By: #### C MPF, ACBC, PT ####Testing performed at [address] [address] HEMOGLOBIN A1Con 09-15-2022 Glucose [Mass/Vol] 105 mg/dL Normal [facility] Comment on above: Performed By: #### H A1CT #### Testing performed at [address] [address] HbA1c (Bld) [Mass fraction] 5.3 % Normal <6 [facility] Comment on above: Result Comment: NORMAL <5.7% PREDIABETES 5.7-6.4% DIABETES 6.5% OR HIGHER Performed By: #### H A1CT #### Testing performed at [address] [address] MRSA SCREENon 09-15-2022 MRSA DNA DALIA+probe Ql (Unsp spec) Not detected Normal NOT DETECTED [facility] Comment on above: Performed By: #### M RSAST #### Testing performed at [address] [address] STAPH AUREUS SCREEN Detected Abnormal NOT DETECTED [facility] Comment on above: Performed By: #### M RSAST #### Testing performed at [address] [address] PROTIMEon 09-15-2022 INR Coag (PPP) [Relative time] 1.08 {INR} Normal 0.85-1.10 [facility] Comment on above: Result Comment: 2.0-3.0 THERAPEUTIC RANGE 2.5-3.5 MECHANICAL VALVE RANGE Performed By: #### C MPF, ACBC, PT ####Testing performed at [address] [address] PT Coag (PPP) [Time] 14.1 s Normal 11.8-14.4 [facility] Comment on above: Performed By: #### C MPF, ACBC, PT ####Testing performed at [address] [address] RAPID TOX SCREEN,URINEon AMPHETAMINE Negative Normal NEGATIVE [facility] Comment on above: Result Comment: <500 ng/ml CUTOFF Performed By: #### R TOX, UMAC ####Testing performed at [address] [place] [address] BARBITURATES Negative Normal NEGATIVE [facility] Comment on above: Result Comment: <200 ng/ml CUTOFF Performed By: #### R TOX, UMAC ####Testing performed at [address] [place] [address] BENZODIAZEPINES Negative Normal NEGATIVE [facility] Comment on above: Result Comment: <150 ng/ml CUTOFF Performed By: #### R TOX, UMAC ####Testing performed at [address] [place] [address] BUPRENORPHINE Negative Normal NEGATIVE [facility] Comment on above: Result Comment: <10 ng/ml CUTOFF Performed By: #### R TOX, UMAC ####Testing performed at [address] [place] [address] CANNABINOIDS Positive Abnormal NEGATIVE [facility] Comment on above: Result Comment: <50 ng/ml CUTOFF *Unconfirmed Screening Result* Unconfirmed screening results are to be used only for medical treatment purposes. Performed By: #### R TOX, UMAC ####Testing performed at [address] [place] [address] COCAINE Negative Normal NEGATIVE [facility] Comment on above: Result Comment: <150 ng/ml CUTOFF Performed By: #### R TOX, UMAC ####Testing performed at [address] [place] [address] METHADONE Negative Normal NEGATIVE [facility] Comment on above: Result Comment: <200 ng/ml CUTOFF Performed By: #### R TOX, UMAC ####Testing performed at [address] [place] [address] METHAMPHETAMINE Negative Normal NEGATIVE [facility] Comment on above: Result Comment: <500 ng/ml CUTOFF Performed By: #### R TOX, UMAC ####Testing performed at [address] [place] [address] OPIATES Negative Normal NEGATIVE [facility] Comment on above: Result Comment: <100 ng/ml CUTOFF Performed By: #### R TOX, UMAC ####Testing performed at [address] [place] [address] OXYCODONE Positive Abnormal NEGATIVE [facility] Comment on above: Result Comment: <100 ng/ml CUTOFF *Unconfirmed Screening Result* Unconfirmed screening results are to be used only for medical treatment purposes. Performed By: #### R TOX, UMAC ####Testing performed at [address] [place] [address] PHENCYCLIDINE Negative Normal NEGATIVE [facility] Comment on above: Result Comment: <25 ng/ml CUTOFF Performed By: #### R TOX, UMAC ####Testing performed at [address] [place] [address] PROPOXYPHENE Negative Normal NEGATIVE [facility] Comment on above: Result Comment: <300 ng/ml CUTOFF Performed By: #### R TOX, UMAC ####Testing performed at [address] [place] [address] TRICYCLIC ANTIDEPRESSANTS Positive Abnormal NEGATIVE [facility] Comment on above: Result Comment: <300 ng/ml CUTOFF *Unconfirmed Screening Result* Unconfirmed screening results are to be used only for medical treatment purposes. Performed By: #### R TOX, UMAC ####Testing performed at [address] [address] TYPE AND SCREEN CROSSMATCH C ONVERTIBLEon 09-15-2022 TYPE AND SCREEN CROSSMATCH CONVERTIBLE WORKUP EXPIRES 10/13/2022,2359 ABO/RH(D) O POSITIVE ANTIBODY SCREEN NEGATIVE ARM BAND NUMBER [id number] Normal [facility] Comment on above: Performed By: #### T SCC #### Testing performed at [address] [address] URINE MACROSCOPICon 09-15-20 22 Bilirubin Ql (U) Negative Normal NEGATIVE [facility] Comment on above: Performed By: #### R TOX, UMAC ####Testing performed at [address] [place] [address] Clarity (U) CLEAR Normal CLEAR [facility] Comment on above: Performed By: #### R TOX, UMAC ####Testing performed at [address] [place] [address] Color (U) YELLOW Normal YELLOW [facility] Comment on above: Performed By: #### R TOX, UMAC ####Testing performed at [address] [address] Glucose Ql (U) Negative Normal NEGATIVE [facility] Comment on above: Performed By: #### R TOX, UMAC ####Testing performed at [address] [place] [address] pH (U) 5.5 [pH] Normal 5.0-7.0 [facility] Comment on above: Performed By: #### R TOX, UMAC ####Testing performed at [address] [place] [address] URINE HEMOGLOBIN Negative Normal NEGATIVE [facility] Comment on above: Performed By: #### R TOX, UMAC ####Testing performed at [address] [place] [address] URINE KETONE Negative Normal NEGATIVE [facility] Comment on above: Performed By: #### R TOX, UMAC ####Testing performed at [address] [place] [address] URINE LEUKOTEST Negative Normal NEGATIVE [facility] Comment on above: Performed By: #### R TOX, UMAC ####Testing performed at [address] [place] [address] URINE NITRATES Negative Normal NEGATIVE [facility] Comment on above: Performed By: #### R TOX, UMAC ####Testing performed at [address] [address] URINE SPEC GRAVITY 1.015 Normal 1.010-1.025 [facility] Comment on above: Performed By: #### R TOX, UMAC ####Testing performed at [address] [address] URINE TOTAL PROTEIN Negative Normal NEGATIVE [facility] Comment on above: Performed By: #### R TOX, UMAC ####Testing performed at [address] [address] Urobilinogen Qn (U) 0.2 {Tee'U}/dL Normal 0.2-1.0 [facility] Comment on above: Performed By: #### R TOX, UMAC ####Testing performed at [address] [address] Office Visit (Audiology)on 07-15-2022 Follow-up visit Diagnoses/Problems Bilateral sensorineural hearing loss (389.18) (H90.3) Otosclerosis of left ear (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 Excellent word understanding and normal middle ear function bilaterally. Treatment Plan: 1. Follow-up with Dr. Rojas 2. Retest hearing in conjunction with medical management 3. Consider binaural amplification [id number] Adult Risk Screening There are no spiritual/cultural practices/values/needs that are important to know Initial Fall Risk Screening: Screening not indicated for medical reasons. Reference Documentation See scanned note Procedure Note: audiogram. History of Present Illness Seth Romano), 66 years old, was seen for a hearing test at the referral of Dr. Rojas. He has a left stapedectomy on 05/11/22. Overall, pain is adequately controlled, and he denies significant imbalance, or discharge from the surgical ear. The patient is doing well. His subjective hearing seems to be unchanged. Patient's preferred language: Namibian Preferred language of the parent, legal guardian or surrogate decision-maker of this minor or incapacitated patient: Not Applicable No overt signs of domestic violence/neglect/abuse . No referral made to [employer]. Pain not interfering with optimal level of function or ability to assess and/or treat. Pain Scale rank: 0/10 Pain Scale used: Numeric No referral made to primary care provider (PCP). Factors/Barriers influencing patient's ability to complete assessment or learn: none. Person taught: patient. Readiness to learn: no barriers. Results of Teaching/Counseling: verbalize recall / understanding and teaching complete. Procedure Otoscopy revealed clear ear canals with visible tympanic membranes, bilaterally. Tympanometry: Right Ear: Normal middle ear function with normal ear canal volume, peak pressure, and compliance. Left Ear: Normal middle ear function with normal ear canal volume, peak pressure, and compliance. Ipsilateral Acoustic Reflexes: Right Ear: Absent 500-4000 Hz. Left Ear: Absent 500-4000 Hz. Behavioral Hearing Evaluation: Right Ear: mild to moderate sensorineural hearing loss. Excellent word understanding (100%) at 70 dB HL. Left Ear: mild to moderate sensorineural hearing loss. Excellent word understanding (100%) at 70 dB HL.. Speech oil spot washer threshold (30 dB HL in the right and 30 dB HL in the left) in agreement with pure tone averages. Signatures Electronically signed by : Parag Carver,[email or web address]; Jul 15 2022 1:41PM EST (Author) Normal [facility] XR HIP LT 2 3V W PELVISon XR HIP LT 2 3V W PELVIS EXAM: XR HIP LT 2 3V W PELVIS HISTORY: . Pain of left hip joint . COMPARISON: None. TECHNIQUE: 3 views FINDINGS: Bony pelvis is intact. No fracture or bony destructive process is noted. There is been previous posterior fusion of the lower lumbar spine and sacrum. There is moderate narrowing of the left hip joint with sclerosis of the superior acetabular rim. Spurring is noted involving the acetabulum and small spurs are noted involving the left femoral head. No fracture is noted. Surrounding soft tissues are unremarkable. IMPRESSION: 1. Moderate to marked osteoarthritic changes of left hip. 2. No acute bony abnormality of the pelvis. 3. Postop changes involving the lower lumbar spine and sacrum. Electronically authenticated by: DAVIN LYNN Date: 2022-06-15 18:[address] 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 Overall, pain is adequately controlled, and he denies significant imbalance, or discharge from the surgical ear. The patient is doing well. His subjective hearing seems to be unchanged. Physical Examination: Steri-strips were removed revealing the incision healing well without signs of infection. Ear canal examined using the otomicroscope. Packing was removed. Graft appears to be healing well. Flap is healing well. There are no signs to suggest an infection. Air conduction appears to be better than bone at 512 and 1024 Hz. Impression: Status post left stapedectomy Plan: Maintain dry ear precautions. Schedule a follow up in 6-8 weeks along with a hearing test. It appears that his conductive component has improved. This note was created using speech recognition client relations representative software/or [employer] client relations representative services. Despite proofreading, several typographical errors might be present that might affect the meaning of the content. Please call with any questions. By signing my name below, mAie Lutz Scribe, attest that this documentation has been prepared under the direction and in the presence of Dr. Rojas. All medical record entries made by the [employer] were at my direction and personally dictated by me. I have reviewed the chart and agree that the record accurately reflects my personal performance of the history, physical exam, discussion, and plan. 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) Otosclerosis of left ear (387.9) (H80.92) Past Medical History History of arthritis (V13.4) (Z87.39) History of hypertension (V12.59) (Z86.79) History of prostate disorder (V13.29) (Z87.438) History of sleep apnea (V13.89) (Z86.69) History of snoring (V15.89) (Z87.898) Surgical History History of Back surgery History of Neck surgery Family History Family history of Alive and well Family history of Family history of malignant neoplasm (V16.9) (Z80.9) Social History Drinks beer (V49.89) (Z78.9) Former smoker (V15.82) (Z87.891) Lives with Retired from employment Allergies No Known Drug Allergies Recorded By: Rosemary Torres; 03/17/2022 3:27:37 PM No Known Environmental Allergies Recorded By: Rosemary Torres; 03/17/2022 3:27:37 PM No Known Food Allergies Recorded By: Rosemary Torres; 03/17/2022 3:27:37 PM Current Meds Medication NameInstruction amLODIPine Besy-Benazepril HCl - 5-40 MG Oral CapsuleTAKE 1 CAPSULE BY MOUTH EVERY DAY Atorvastatin Calcium 80 MG Oral TabletTAKE 1 TABLET BY MOUTH EVERY DAY IN THE EVENING buPROPion HCl ER (XL) 150 MG Oral Tablet Extended Release 24 HourTAKE 1 TABLET BY MOUTH EVERY DAY buPROPion HCl ER (XL) 300 MG Oral Tablet Extended Release 24 HourTAKE 1 TABLET BY MOUTH DAILY Flexeril TABS Flomax 0.4 MG Oral Capsule Metoprolol Succinate ER 50 MG Oral Tablet Extended Release 24 HourTake 1 tablet by mouth daily oxyCODONE-Acetaminophe n 5-325 MG Oral TabletTAKE 1 TABLET BY MOUTH THREE TIMES DAILY NEEDED for inflammaction OF sacroiliac joint Proscar 5 MG Oral Tablet traZODone HCl - 50 MG Oral TabletTAKE 1 TABLET DAILY AT BEDTIME Vitals Vital Signs Recorded: [id number] 10:48AM [id number] F Height5 ft 4.5 in Wvsanw075 lb 8 oz BMI Ejuxfiiahe44.69 kg/m2 BSA Calculated1.91 Tobacco Useb) No Falls Screening (Age 18+)b) One or more falls in the last year Pain Scale8/10 'Scores and Scales' Signatures Electronically signed by : Jamie Rojas MD; Jun 03 2022 12:52PM EST (Author) Normal [place] Order Reconciliationon 05-11 Order Reconciliation Page 1 Discharge Reconciliation Document Reconciliation Type: Discharge requested on behalf of Kevyn Epperson (Resident) done by Kevyn Epperson (Resident)) Discharge - Partial Reconciliation: 11-May-2022 12:26 by: Kevyn Epperson (Resident)) Discharge - Partial Reconciliation: 11-May-2022 12:28 by: Kevyn Epperson (Resident)) Discharge - Reconciliation: 11-May-2022 12:31 by: Kevyn Epperson (Resident)) Home Medications EnteredHOME MEDICATIONS AT DISCHARGE DateReconciliation Comment/ Additional Information Flexeril 10 mg oral tablet orally once a day 11-May-2022 09:13 Flexeril 10 mg oral tablet orally once a day 11-May-2022 09:13 Flexeril 10 mg oral tablet is continued as Flexeril 10 mg oral tablet Flomax 0.4 mg oral capsule 1 cap(s) orally once a day 11-May-2022 09:11 Flomax 0.4 mg oral capsule 1 cap(s) orally once a day 11-May-2022 09:11 Flomax 0.4 mg oral capsule is continued as Flomax 0.4 mg oral capsule Lipitor 80 mg oral tablet 1 tab(s) orally once a day 11-May-2022 09:11 Lipitor 80 mg oral tablet 1 tab(s) orally once a day 11-May-2022 09:11 Lipitor 80 mg oral tablet is continued as Lipitor 80 mg oral tablet Lotrel 5 mg-40 mg oral capsule 1 cap(s) orally once a day 11-May-2022 09:10 Lotrel 5 mg-40 mg oral capsule 1 cap(s) orally once a day 11-May-2022 09:10 Lotrel 5 mg-40 mg oral capsule is continued as Lotrel 5 mg-40 mg oral capsule oxycodone-acetaminophe n 5 mg-325 mg oral tablet 11-May-2022 09:13 oxycodone-acetaminophe n 5 mg-325 mg oral tablet 11-May-2022 09:13 oxycodone-acetaminophe n 5 mg-325 mg oral tablet is continued as oxycodone-acetaminophe n 5 mg-325 mg oral tablet PriLOSEC 40 mg oral delayed release capsule 1 cap(s) orally once a day 11-May-2022 09:11 PriLOSEC 40 mg oral delayed release capsule 1 cap(s) orally once a day 11-May-2022 09:11 PriLOSEC 40 mg oral delayed release capsule is continued as PriLOSEC 40 mg oral delayed release capsule Proscar 5 mg oral tablet 1 tab(s) orally once a day 11-May-2022 09:11 Proscar 5 mg oral tablet 1 tab(s) orally once a day 11-May-2022 09:11 Proscar 5 mg oral tablet is continued as Proscar 5 mg oral tablet Toprol-XL 50 mg oral tablet, extended release 1 tab(s) orally once a day 11-May-2022 09:13 Toprol-XL 50 mg oral tablet, extended release 1 tab(s) orally once a day 11-May-2022 09:13 Toprol-XL 50 mg oral tablet, extended release is continued as Toprol-XL 50 mg oral tablet, extended release traZODone 50 mg oral tablet orally once a day (at bedtime) 11-May-2022 09:13 traZODone 50 mg oral tablet orally once a day (at bedtime) 11-May-2022 09:13 traZODone 50 mg oral tablet is continued as traZODone 50 mg oral tablet Voltaren 75 mg oral delayed release tablet 1 tab(s) orally 2 times a day 11-May-2022 09:14 Voltaren 75 mg oral delayed release tablet 1 tab(s) orally 2 times a day 11-May-2022 09:14 Voltaren 75 mg oral delayed release tablet is continued as Voltaren 75 mg oral delayed release tablet Wellbutrin XL 150 mg/24 hours oral tablet, extended release 1 tab(s) orally every 24 hours 11-May-2022 09:15 Wellbutrin XL 150 mg/24 hours oral tablet, extended release 1 tab(s) orally every 24 hours 11-May-2022 09:15 Wellbutrin XL 150 mg/24 hours oral tablet, extended release is continued as Wellbutrin XL 150 mg/24 hours oral tablet, extended release Wellbutrin XL 300 mg/24 hours oral tablet, extended release 1 tab(s) orally every 24 hours 11-May-2022 09:14 Wellbutrin XL 300 mg/24 hours oral tablet, extended release 1 tab(s) orally every 24 hours 11-May-2022 09:14 Wellbutrin XL 300 mg/24 hours oral tablet, extended release is continued as Wellbutrin XL 300 mg/24 hours oral tablet, extended release Current OrdersDateHOME MEDICATIONS AT DISCHARGE DateReconciliation Comment/ Additional Information Acetaminophen Tablet (TYLENOL)DOSE = 650 mg Oral Every 4 Hours, PRN Pain - Mild (1-3) (PACU) when able to take OralClinician Notes: Tiera-operative order ONLY 11-May-2022 10:34 Acetaminophen is not required Albuterol 2.5 mg/ 3 mL Nebulizer Soln (PROVENTIL)DOSE = 3 mL Inhalation Once via Nebulizer, PRN Wheezing (PACU)Clinician Notes: Tiera-operative order ONLY 11-May-2022 10:34 Albuterol 2.5 mg/ 3 mL Nebulizer Soln is not required HYDROmorphone Injectable (DILAUDID)DOSE = 0.2 mg IntraVenous Push Every 5 Minutes, PRN Pain - Mod (4-6) (PACU) if unable to take oralClinician Notes: Tiera-operative order ONLYMax total of 4 mg regardless of dose. 11-May-2022 10:34 HYDROmorphone Injectable is not required HYDROmorphone Injectable (DILAUDID)DOSE = 0.4 mg IntraVenous Push Every 5 Minutes, PRN Pain - Severe (7-10) (PACU)Clinician Notes: Tiera-operative order ONLYMax total of 4 mg regardless of dose. 11-May-2022 10:34 HYDROmorphone Injectable is not required Lactated Ringers Infusion IV Bag Volume = 1,000 mL Run at: 100 mL/hr IntraVenous Clinician Notes: Tiera-operative order ONLY 22- (more content not included)... Normal [facility] CORONAVIRUS 2019, SCREEN ASY MPTOMATICon 05-10-2022 SARS-CoV-2 (COVID-19) RNA DALIA+probe Ql (Unsp spec) Not detected Normal Not Detected [facility] Comment on above: Result Comment: . This assay is designed to detect the N, ORF1ab and/or S genes of SARS-CoV-2 via nucleic acid amplification. A Negative (NOT DETECTED) result does not preclude 2019-nCoV infection since the adequacy of sample collection and/or low viral burden may result in presence of viral nucleic acids below the clinical sensitivity of this test method. Negative (NOT DETECTED) result should not be used as the sole basis for treatment or other patient management decisions. Rather negative results should be combined with clinical observations, patient history, and epidemiological information to make patient management decisions. Fact sheet for providers: https://www.fda.gov/media/589873/download Fact sheet for patients: https://www.fda.gov/media/956261/download This test has received FDA Emergency Use Authorization (EUA) and has been verified by [facility] ([facility]). This test is only authorized for the duration of time that circumstances exist to justify the authorization of the emergency use of in vitro diagnostic tests for the detection of SARS-CoV-2 virus and/or diagnosis of COVID-19 infection under section 564(b)(1) of the Act, 21 U.S.C. 360bbb-3(b)(1), unless the authorization is terminated or revoked sooner. [facility] is certified under CLIA-88 as qualified to perform high complexity testing. Testing is performed in the [facility] laboratories located at [address] [place] [address]. Performed By: #### C OVSC #### [place] [address] Covid 19 Resultson 2 SARS-CoV-2 (COVID-19) RNA DALIA+probe Ql (Unsp spec) NEGATIVE COVID-19 Test Coronaviruses are common world-wide and are the cause of many common colds. SARS-COV2 is a new coronavirus that began circulating worldwide in 2019 so we are calling it COVID-19. It has been estimated that four out of five patients with COVID-19 will recover at home without the need for medical attention. Symptoms of COVID-19 may include cough, fever, shortness of breath, loss of taste or smell and other flu-like symptoms including chills, sore muscles, sore throat, and headache. Severe illness is more common in older people and people with other health problems such as high blood pressure, obesity, and immune system problems. If the test is positive, you have COVID-19. You will be contacted by the ordering physicians office and instructed to remain on home isolation, in accordance with CDC guidelines. You may also be contacted by the [facility] to see if any of your close contacts may have been exposed to the virus and need to quarantine. If the test is negative, you likely do not have COVID-19 at this time, but you still may have a different illness that can spread to other people (like Influenza, or the Flu) and could still be at risk for getting COVID-19. We recommend that you stay away from other people to limit the spread of illness until your symptoms are improving and you are fever-free for 24 hours without the use of fever lowering medications such as acetaminophen or ibuprofen. No test is 100% accurate so if you are still concerned you may have COVID-19, talk to your doctor about the need to continue to stay away from others. Medicines Unless your provider told you not to use the following: Acetaminophen (Tylenol and others) is generally safe. Anti-inflammatory medications, such as Ibuprofen (Advil or Motrin) or Naproxen (Aleve) can also be used. Umrv-aft-xxibbss cough and cold medicines can be used according to the instructions on the package. Some zmro-wuh-kwjshrh medicines also contain acetaminophen. Make sure you are not taking more than your recommended dose. For those not hospitalized, there is no specific treatment available for this illness. Antibiotics do not treat Coronaviruses. Follow-Up Follow up with your doctor by scheduling a virtual visit or consider follow-up at one of our urgent care fever clinics. If you are having difficulty breathing, or are very weak and having difficulty standing, this is a medical emergency. Call 911 or have someone take you to the nearest emergency room immediately. If possible, wear a facemask. Additional guidance from the CDC for patients who tested POSITIVE for COVID-19 How to isolate: Isolate yourself in a specific room at home and limit your contact with others. Use a separate bathroom from other members of the household, when possible. Leave home only to get essential medical care. Do not go to work, school or public areas. Avoid using public transportation, ride-sharing, or taxis. Restrict contact with pets and other animals. If you must care for your pet or be around animals while you are sick, wash your hands before and after your interaction and wear a facemask. Make sure that shared spaces in the home have good airflow, such as by an air conditioner or an opened window, weather permitting. Personal Hygiene Procedures: Wear a face mask when in the same room as other people or pets. If a face mask interferes with your breathing, others should wear a mask when sharing space with you. Frequent hand-washing: wash your hands with soap and water for at least 20 seconds. If soap and water are not available, use alcohol-based hand computer information systems instructor. Avoid touching your eyes, nose, and mouth with unwashed hands. Household Hygiene Procedures: Avoid sharing personal household items such as dishes, glassware, cups, eating utensils, towels or bedding with other people or pets in your home. After use, these items should be washed with soap and hot water. Disinfect all high-touch surfaces every day with antibacterial cleaning solutions such as Lysol wipes, bleach, cleansers, etc. High-touch surfaces include tabletops, doorknobs, bathroom fixtures, toilets, phones, keyboards, tablets and bedside tables. Immediately clean any surfaces that may have blood, poop or body fluids on them, using antibacterial cleaning solutions such as Lysol wipes, bleach, cleansers, etc. If clothing or bedding come into contact with blood, poop or body fluids, they should be washed immediately. Follow the directions on the laundry detergent and clothing labels but hot water is recommended when possible. Stopping home isolation precautions: If possible, consult your doctor before stopping home isolation precautions. According to the CDC, you can discontinue home isolation precautions when you have met both of these criteria: Your fever and respiratory symptoms have been gone for 24 maggy (more content not included)... 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 (procedure may be cancelled if no delivery truck driver heavy), time to arrive, remove jewerly/piercings, insurance information, diabetes meds - patient advised to consult ordering provider, center location How to be AddressedBob Spoken Language PreferredEnglish Source of Informationpatient Stated Reason for Admissionleft ear Primary Contact Name and [phone] Limitations on Visitors/Phone Callsnone Medications Brought to Hospitalno General Health: Weight in kg86.4 kilogram(s) Weight in vup233.4 pound(s) Height in feet5 feet Height in inches6.97 inch(es) Height in cm170.1 centimeter(s) Height Methodstated BMI (kg/m2)29.861 square meter Patient or Family Member Reaction to Anesthesiano previous reaction; no previous family member reaction Blood Avoidance/Restrictions none Previous Transfusion Reactionno Health Mgmt: Symptoms/Conditions Managed at Homerespiratory; cardiovascular; behavioral health Behavioral Health Symptoms/Conditionsanx iety Cardiovascular Symptoms/Conditionshyp ertension Respiratory Symptoms/Conditionssle ep disordered breathing Respiratory Management StrategiesBiPAP Barriers to Managing Healthnone Relationship/Environ: Lives Withspouse Living Arrangementshouse Resource/Environmental Concernsnone Anticipated Transition Tofreeman Services Anticipated at Transitionnone Tobacco Use: Tobacco Useno Pre-op Checklist: Arrival [id number] Arrival Time09:07 Procedure Typeleft ear surgery NPOyes Last Food [id number] 22:00 Last Clear Fluid [id number] 22:00 ID Band On Patientpatient ID (name) Consent Signedpending H&P Completepending Anesthesia Assessment Completedpending EKG Performednot ordered Chest X-Ray Performednot ordered COVID 19 Results in Last 7 days05/09/22 negative Soap and Water Bath the Night Before Surgerynot applicable Hair Washed with Shampoonot applicable Bowel Prepno Surgical Site Infection Preventionyes Pain Scales and Managementyes Additional Information: Information Review: Allergies, Home Meds and Significant Events have been Reviewed and Verified with Patient/Familyyes Electronic Signatures: Teri Grant (RICARDO) (Signed 10-May-2022 09:21) Authored: Initial Info Makeda Augustine (RICARDO) (Signed 11-May-2022 09:24) Authored: Initial Info, General Health, Health Mgmt, Relationship/Environ, Tobacco Use, Pre-op Checklist, Additional Information Last Updated: 11-May-2022 09:24 by Makeda Augustine (RICARDO) Normal [facility] CORONAVIRUS 2019, SCREEN ASY MPTOMATICon 05-09-2022 Lab Specimen Source Nasal, Nasopharyngeal Normal [facility] Comment on above: Performed By: #### C OVSC #### [facility] [address] [place] [address] CBC AUTO DIFFon 05-03-2022 BASO # 0.0 103/ul Normal 0.0-0.1 [facility] Comment on above: Performed By: #### C BC #### [facility] [address] [place] [address] Dr. Natty Daily Basophils/100 WBC (Bld) 0.2 % Normal 0.2-2.0 [facility] Comment on above: Performed By: #### C BC #### [facility] [address] [place] [address] Dr. Natty Daily EO # 0.0 103/ul Normal 0.0-0.7 [facility] Comment on above: Performed By: #### C BC #### [facility] [address] [place] [address] Dr. Natty Daily Eosinophils/100 WBC (Bld) 0.0 % Critically low 0.9-7.0 [facility] Comment on above: Performed By: #### C BC #### [facility] [address] [place] [address] Dr. Natty Daily Erythrocyte distribution width (RBC) [Ratio] 12.9 % Normal 11.0-15.0 [facility] Comment on above: Performed By: #### C BC #### [facility] [address] [place] [address] Dr. Natty Daily Hematocrit (Bld) [Volume fraction] 38.6 % Critically low 42.0-54.0 [facility] Comment on above: Performed By: #### C BC #### [facility] [address] [place] [address] Dr. Natty Daily Hemoglobin (Bld) [Mass/Vol] 13.1 g/dL Critically low 14.0-18.0 [facility] Comment on above: Performed By: #### C BC #### [facility] [address] [place] [address] Dr. Natty Daily IG # 0.09 10e3/ul Critically high 0.00-0.03 [facility] Comment on above: Performed By: #### C BC #### [facility] [address] [place] [address] Dr. Natty Daily IG % 1.1 % Critically high 0.0-0.5 [facility] Comment on above: Performed By: #### C BC #### [facility] [address] [place] [address] Dr. Natty Daily LYMPH # 1.3 103/ul Normal 1.2-3.8 [facility] Comment on above: Performed By: #### C BC #### [facility] [address] [place] [address] Dr. Natty Daily Lymphocytes/100 WBC (Bld) 15.8 % Critically low 20.5-60.0 [facility] Comment on above: Performed By: #### C BC #### [facility] [address] [place] [address] Dr. Natty Daily MANUAL DIFF REQ NO Normal [facility] Comment on above: Performed By: #### C BC #### [facility] [address] [address] [address] Natty Daily MCH (RBC) [Entitic mass] 30.9 pg Normal 25.9-34.0 [facility] Comment on above: Performed By: #### C BC #### [facility] [address] [address] [address] Natty Daily MCHC (RBC) [Mass/Vol] 33.9 g/dL Normal 29.9-35.2 [facility] Comment on above: Performed By: #### C BC #### [facility] [address] [place] [address] Dr. Natty Daily MCV (RBC) [Entitic vol] 91.0 fL Normal 80.0-94.0 [facility] Comment on above: Performed By: #### C BC #### [facility] [address] [place] [address] Dr. Natty Daily MONO # 0.7 103/ul Normal 0.3-0.8 [facility] Comment on above: Performed By: #### C BC #### [facility] [address] [place] [address] Dr. Natty Daily Monocytes/100 WBC (Bld) 8.3 % Normal 1.7-12.0 [facility] Comment on above: Performed By: #### C BC #### [facility] [address] [place] [address] Dr. Natty Daily NEUT # 6.1 103/ul Normal 1.4-6.[address] [facility] Comment on above: Performed By: #### C BC #### [facility] [address] [place] [address] Dr. Natty Daily Neutrophils/100 WBC (Bld) 74.6 % Normal 43.0-75.[address] [facility] Comment on above: Performed By: #### C BC #### [facility] [address] [place] [address] Dr. Natty Daily Platelet mean volume (Bld) [Entitic vol] 9.5 fL Normal 9.5-13.5 [facility] Comment on above: Performed By: #### C BC #### [facility] [address] [address] [address] Natty Daily PLT 231 103/ul Normal 150-450 [facility] Comment on above: Performed By: #### C BC #### [facility] [address] [place] [address] Dr. Natty Daily RBC 4.24 106/ul Critically low 4.70-6.10 [facility] Comment on above: Performed By: #### C BC #### [facility] [address] [address] [address] Natty Daily WBC 8.1 103/ul Normal 4.0-11.0 [facility] Comment on above: Performed By: #### C BC #### [facility] [address] [place] [address] Dr. Natty Daily PROF 14(COMP METB)on 022 Albumin [Mass/Vol] 3.9 g/dL Normal 3.4-5.0 [facility] Comment on above: Performed By: #### C MP #### [facility] [address] [place] [address] Dr. Natty Daily Albumin/Globulin [Mass ratio] 1.2 {ratio} Normal [facility] Comment on above: Performed By: #### C MP #### [facility] [address] [place] [address] Dr. Natty Daily ALP [Catalytic activity/Vol] 58 U/L Normal 46-[address] [facility] Comment on above: Performed By: #### C MP #### [facility] [address] [place] [address] Dr. Natty Daily ALT [Catalytic activity/Vol] 78 U/L Critically high 16-63 [facility] Comment on above: Performed By: #### C MP #### [facility] [address] [place] [address] Dr. Natty Daily Anion gap [Moles/Vol] 14.3 mmol/L Normal [facility] Comment on above: Performed By: #### C MP #### [facility] [address] [address] [address] Natty Daily AST [Catalytic activity/Vol] 39 U/L Critically high 15-37 [facility] Comment on above: Performed By: #### C MP #### [facility] [address] [address] [address] Natty Daily Bilirubin [Mass/Vol] 0.8 mg/dL Normal 0.2-1.0 [facility] Comment on above: Performed By: #### C MP #### [facility] [address] [address] [address] Natty Daily Calcium [Mass/Vol] 9.0 mg/dL Normal 8.5-10.1 [facility] Comment on above: Performed By: #### C MP #### [facility] [address] [address] [address] Natty Daily Chloride [Moles/Vol] 104 mmol/L Normal 98-107 [facility] Comment on above: Performed By: #### C MP #### [facility] [address] [address] [address] Natty Daily CO2 [Moles/Vol] 24.8 mmol/L Normal 21.0-32.0 [facility] Comment on above: Performed By: #### C MP #### [facility] [address] [address] [address] Natty Daily Creatinine [Mass/Vol] 0.77 mg/dL Normal 0.70-1.30 [facility] Comment on above: Performed By: #### C MP #### [facility] [address] [address] [address] Natty Daily EGFR-AF MONTSERRATIAN >60 Normal >=60 [facility] Comment on above: Performed By: #### C MP #### [facility] [address] [address] [address] Natty Daily EGFR-NON AF MONTSERRATIAN >60 Normal >=60 [facility] Comment on above: Performed By: #### C MP #### [facility] [address] [address] [address] Natty Daily Globulin (S) [Mass/Vol] 3.2 g/dL Normal [facility] Comment on above: Performed By: #### C MP #### [facility] [address] [address] [address] Natty Daily Glucose [Mass/Vol] 131 mg/dL Critically high 74-106 [facility] Comment on above: Performed By: #### C MP #### [facility] [address] [address] [address] Natty Daily Potassium [Moles/Vol] 4.1 mmol/L Normal 3.5-5.1 [facility] Comment on above: Performed By: #### C MP #### [facility] [address] [place] [address] Dr. Natty Daily Protein [Mass/Vol] 7.1 g/dL Normal 6.4-8.2 [facility] Comment on above: Performed By: #### C MP #### [facility] [address] [address] [address] Natty Daily Sodium [Moles/Vol] 139 mmol/L Normal 136-145 [facility] Comment on above: Performed By: #### C MP #### [facility] [address] [place] [address] Dr. Natty Daily Urea nitrogen [Mass/Vol] 22.0 mg/dL Critically high 7.0-18.0 [facility] Comment on above: Performed By: #### C MP #### [facility] [address] [address] [address] Natty Daily Urea nitrogen/Creatinine [Mass ratio] 28.6 mg/mg Normal [facility] Comment on above: Performed By: #### C MP #### [facility] [address] [place] [address] Dr. Natty Daily PROTIMEon 05-03-2022 INR Coag (PPP) [Relative time] 1.06 {INR} Normal [facility] Comment on above: Performed By: #### P T, PTT #### [facility] [address] [place] [address] Dr. Natty Daily INR GUIDELINES SEE BELOW Normal [facility] Comment on above: Result Comment: REEMA RED INR: 2.0 - 3.0 CONDITIONS NOT LISTED BELOW 2.5 - 3.5 FOR PROSTHETIC HEART VALVE REPLACEMENT 2.5 - 3.5 RECURRENT THROMBOSIS Performed By: #### P T, PTT #### [facility] [address] [place] [address] Dr. Natty Daily PT Coag (PPP) [Time] 11.4 s Normal 9.0-11.6 [facility] Comment on above: Performed By: #### P T, PTT #### [facility] [address] [address] [address] Natty Daily PTTon 05-03-2022 aPTT Coag (Bld) [Time] 25.6 s Normal 22.3-36.2 [facility] Comment on above: Performed By: #### P T, PTT #### [facility] [address] [place] [address] Dr. Natty Daily Tobacco Screening.on 022 Fall risk assessment a) No falls within the last year [facility]Otolaryngol [facility] Work Phone: Tobacco use status CP b) No [facility]Otolaryngol [facility] Work Phone: Blood Urea Nitrogenon 2020 Urea nitrogen [Mass/Vol] 21 mg/dL Normal 9- [facility] Comment on above: Performed By: #### C REAT, BUN #### [facility] [address] Creatinineon 10-19-2021 Creatinine [Mass/Vol] 0.92 mg/dL Normal 0.64-1.27 [facility] Comment on above: Performed By: #### C REAT, BUN #### [facility] [address] Creatinine Clr Calc Pharmacy 86.54 Normal [facility] Comment on above: Result Comment: PERF ORMED BY: [place] [address] PATHOLOGIST [employer] JAVID GRACIA M.D. Performed By: #### C REAT, BUN #### [facility] [address] [place] [address] Estimated GFR ( Jaida > 60 Normal [facility] Comment on above: Result Comment: GFR estimated reference range: According to KDOQI guidelines, <60 ml/min/1.73m2 is sufficient to diagnose a patient with chronic kidney disease. Performed By: #### C REAT, BUN #### [facility] [address] [place] [address] Estimated GFR (Non- Am > 60 Normal [facility] Comment on above: Performed By: #### C REAT, BUN #### [address] MR prostate wo/w conon 10-19 MR prostate wo/w con [facility] Main [place] [address] [place] [address] MRI Report Signed Patient: Seth Bell MR#: [id number] 343 : 1955 Acct:[id number] Age/Sex: 65 / M ADM Date: 10/19/21 Loc: MR Room: Type: [facility] Attending Dr: Ailyn Dunn MD Ordering Provider: Ailyn Dunn MD Date of Service: 10/19/21 MR/MR prostate wo/w con: R97.2 Copies to: Ailyn Dunn MD MRI OF THE PROSTATE GLAND WITHOUT AND WITH CONTRAST INDICATIONS: Elevated prostate specific antigen. Evaluate for prostate cancer. PSA 1.85 TECHNIQUE: MRI of the prostate gland with and without 18 mL MultiHance. PI-RADS v2 Classification* PI-RADS 5 Highly Suspicious for Malignancy PI-RADS 4 Probably Malignant PI-RADS 3 Indeterminate PI-RADS 2 Probably Benign PI-RADS 1 Most Probably Benign *Based Upon ACR Guidelines November 2014. FINDINGS: Prostate Gland Size: The prostate gland measures 3.9 cm AP x 4.5 cm transverse x 6.0 cm craniocaudad consistent with a prostatic gland volume of 54.7 cc. PSA Density: 0.033 ng/mL/cc. Central Zone: No tumor-suspicious regions are identified in the central zone. Transition Zone: There is moderate nodular enlargement and inhomogeneous signal intensity throughout the transition zone most commonly due to benign prostatic hyperplasia. There is a tumor suspicious region, PI-RADS 4, involving the upper left transition zone at the extreme base. This is centered in the 5 o'clock position. This measures 8 x 8 x 7 mm. This can be seen on image 14 series 4 and image 9 series 700. This demonstrates non-circumscribed moderate T2 shortening and evidence of restricted diffusion with early contrast enhancement. Peripheral Zone: No tumor-suspicious regions are identified in the peripheral zone. Extraprostatic Extension: None. Seminal Vesicle Invasion: None. Pelvic Lymphadenopathy: None. Urinary Bladder: The urinary bladder wall is normal in thickness without evidence of a mass. Rectosigmoid Colon: There is no evidence of diverticulitis or diverticulosis. No rectosigmoid mass is identified. No rectal hemorrhoids are seen. No inguinal hernia is identified. Pelvic Osseous Structures: There is no evidence of osseous metastatic disease at the level of the prostate gland. IMPRESSION: 1. The prostate gland volume equals 54.7 cc. 2. The PSA density equals 0.033 ng/mL/cc. 3. There is moderate nodular enlargement and inhomogeneous signal intensity throughout the transition zone most commonly due to benign prostatic hyperplasia. 4. Tumor suspicious region, PI-RADS 4, involving the upper left transition zone at the extreme base. This is centered in the 5 o'clock position. 5. There is no evidence of extraprostatic extension of prostate cancer, seminal vesicle invasion or pelvic lymphadenopathy. Electronically signed on Oct 19, 2021 3:10:51 PM COT by: Asa Kline MD Diplomate, [place] [employer] Report Completed: Oct 19, 2021 3:10:51 PM COT This transmission is proprietary, privileged and confidential. It is intended to be communication only for the use of the addressee; access to this message by anyone else is unauthorized. If you are not the intended recipient and have received this communication in error, please notify us immediately. Any other action taken, including but not limited to the disclosure, copying or distribution of this communication is prohibited by law. Transcribed By: 10/19/21 1521 Dictated By: NON STAFF 10/19/21 1510 Signed By: 10/19/21 1522 [facility] Vital Signs Date Time Vital Sign Value Performing Clinician Facility 04-23-2024 08:22-0400 Diastolic blood pressure 71 mm[Hg] Bonifacio NILL [facility] [place] 04-23-2024 08:22-0400 Heart rate 50 /min Bonifacio NILL [facility] 04-23-2024 08:22-0400 Respiratory rate 16 /min Bonifacio NILL [facility] 04-23-2024 08:22-0400 Systolic blood pressure 130 mm[Hg] Bonifacio NILL [facility] 01-01-2024 12:00-0500 Blood Pressure Location Ailynanneliese DUNN [facility] 01-01-2024 12:00-0500 Diastolic blood pressure 86 mm[Hg] Ailynanneliese DUNN [facility] 01-01-2024 12:00-0500 Heart rate 70 /min Ailynanneliese DUNN [facility] 01-01-2024 12:00-0500 Respiratory rate 16 /min Ailynanneliese DUNN [facility] 01-01-2024 12:00-0500 Systolic blood pressure 122 mm[Hg] Ailynanneliese DUNN [facility] 10-03-2023 10:00-0500 Body height 165.1 cm Stevan Galdamez Other [employer] [facility] [employer] Other 10-03-2023 10:00-0500 Body mass index (BMI) [Ratio] 32.71 kg/m2 Stevan Galdamez Other [employer] Other 10-03-2023 10:00-0500 Body weight 89.18 kg Stevan Ball Other [employer] Other 10-03-2023 10:00-0500 Diastolic blood pressure 81 mm[Hg] Stevan Ball Other [employer] Other 10-03-2023 10:00-0500 Respiratory rate 12 /min Stevan Ball Other [employer] Other 10-03-2023 10:00-0500 Systolic blood pressure 131 mm[Hg] Stevan Ball Other [employer] Other 06-08-2023 09:45-0400 Body height 165.1 cm Stevan Ball Other [employer] Other 06-08-2023 09:45-0400 Body mass index (BMI) [Ratio] 32.15 kg/m2 Stevan Ball Other [employer] Other 06-08-2023 09:45-0400 Body weight 87.64 kg Stevan Ball Other [employer] Other 06-08-2023 09:45-0400 Diastolic blood pressure 66 mm[Hg] Stevan Ball Other [employer] Other 06-08-2023 09:45-0400 Respiratory rate 12 /min Stevan Ball Other [employer] Other 06-08-2023 09:45-0400 Systolic blood pressure 99 mm[Hg] Stevan Ball Other [employer] Other 06-01-2023 11:38-0400 Body height 165.1 cm Mone MORRSION Work Phone: [facility] 06-01-2023 11:38-0400 Body mass index (BMI) [Ratio] 32.78 kg/m2 Mone Watson APRN-CRAYON SORTING MACHINE FEEDER Work Phone: [facility] [employer] [facility] 06-01-2023 11:38-0400 Body temperature 97.39 [degF] Mone Watson APRN-[employer]AYON SORTING MACHINE FEEDER Work Phone: [facility] [employer] [facility] 06-01-2023 11:38-0400 Body weight 89.36 kg Mone Watson APRN-CRAYON SORTING MACHINE FEEDER Work Phone: [employer] [facility] 05-29-2023 14:15-0400 Body height 165.1 cm Stevan Ball Other [employer] Other 05-29-2023 14:15-0400 Body mass index (BMI) [Ratio] 32.58 kg/m2 Stevan Ball Other [employer] Other 05-29-2023 14:15-0400 Body weight 88.81 kg Stevan Ball Other [employer] Other 05-29-2023 14:15-0400 Diastolic blood pressure 79 mm[Hg] Stevan Ball Other [employer] Other 05-29-2023 14:15-0400 Respiratory rate 12 /min Stevan Ball Other [employer] Other 05-29-2023 14:15-0400 Systolic blood pressure 124 mm[Hg] Stevan Ball Other [employer] Other 05-09-2023 15:49-0400 Body temperature 98.6 [degF] Lazarus Coronado MD Work Phone: [employer] [facility] 05-09-2023 15:49-0400 Diastolic blood pressure 68 mm[Hg] Lazarus Coronado MD Work Phone: [employer] 06-20-2023 15:49-0400 Heart rate 71 /min Lazarus Coronado MD Work Phone: [employer] 05-09-2023 15:49-0400 Respiratory rate 16 /min Lazarus Coronado MD Work Phone: [employer] 05-09-2023 15:49-0400 SaO2% (BldA) [Mass fraction] 94 % Lazarus Coronado MD Work Phone: [employer] 05-09-2023 15:49-0400 Systolic blood pressure 138 mm[Hg] Lazarus Coronado MD Work Phone: [employer] 05-08-2023 07:10-0400 Body height 172.7 cm Lazarus Coronado MD Work Phone: [employer] 05-08-2023 07:10-0400 Body mass index (BMI) [Ratio] 29.63 kg/m2 Lazarus Coronado MD Work Phone: [employer] 05-08-2023 07:10-0400 Body weight 88.41 kg Lazarus Coronado MD Work Phone: [employer] 04-14-2023 10:00-0400 Body height 165.1 cm Stevan Ball Other [employer] Other 04-14-2023 10:00-0400 Body mass index (BMI) [Ratio] 33.24 kg/m2 Stevan Ball Other [employer] Other 04-14-2023 10:00-0400 Body weight 90.63 kg Stevan Ball Other [employer] Other 04-14-2023 10:00-0400 Diastolic blood pressure 93 mm[Hg] Stevan Ball Other [employer] Other 04-14-2023 10:00-0400 Respiratory rate 12 /min Stevan Ball Other [employer] Other 04-14-2023 10:00-0400 Systolic blood pressure 145 mm[Hg] Stevan Galdamez Other [employer] Other 03-23-2023 10:11-0400 Body height 170.2 cm Lazarus Coronado MD Work Phone: [employer] [facility] 03-23-2023 10:11-0400 Body mass index (BMI) [Ratio] 30.98 kg/m2 Lazarus Coronado MD Work Phone: [facility] 03-23-2023 10:11-0400 Body temperature 97.39 [degF] Lazarus Coronado MD Work Phone: [facility] 03-23-2023 10:11-0400 Body weight 89.72 kg Lazarus Coronado MD Work Phone: [facility] 12-05-2022 09:23-0500 Blood Pressure Location Ailyn DUNN [facility] 12-05-2022 09:23-0500 Diastolic blood pressure 88 mm[Hg] Ailyn DUNN [facility] 12-05-2022 09:23-0500 Heart rate 76 /min Ailyn DUNN [facility] 12-05-2022 09:23-0500 Respiratory rate 16 /min Ailyn DUNN [facility] 12-05-2022 09:23-0500 Systolic blood pressure 130 mm[Hg] Ailyn DUNN [facility] 10-11-2022 11:21-0500 Body temperature 98.4 [degF] Lazarus Coronado MD Work Phone: [facility] 10-11-2022 11:21-0500 Diastolic blood pressure 63 mm[Hg] Lazarus Coronado MD Work Phone: [facility] 10-11-2022 11:21-0500 Heart rate 61 /min Lazarus Coronado MD Work Phone: [employer] [facility] 10-11-2022 11:21-0500 Respiratory rate 16 /min Lazarus Coronado MD Work Phone: [employer] [facility] 10-11-2022 11:21-0500 SaO2% (BldA) [Mass fraction] 96 % Lazarus Coronado MD Work Phone: [employer] [facility] 10-11-2022 11:21-0500 Systolic blood pressure 106 mm[Hg] Lazarus Coronado MD Work Phone: [employer] [facility] 10-10-2022 13:00-0500 Body height 165.1 cm Lazarus Coronado MD Work Phone: [employer] [facility] 10-10-2022 13:00-0500 Body mass index (BMI) [Ratio] 30.79 kg/m2 Lazarus Coronado MD Work Phone: [employer] [facility] 10-10-2022 13:00-0500 Body weight 83.92 kg Lazarus Coronado MD Work Phone: [employer] [facility] 08-03-2022 14:13-0400 Body height 165.1 cm Lazarus Coronado MD Work Phone: [employer] [facility] 08-03-2022 14:13-0400 Body mass index (BMI) [Ratio] 30.65 kg/m2 Lazarus Coronado MD Work Phone: [employer] [facility] 08-03-2022 14:13-0400 Body temperature 97 [degF] Lazarus Coronado MD Work Phone: [employer] 08-03-2022 14:13-0400 Body weight 83.55 kg Lazarus Coronado MD Work Phone: [employer] [facility] 03-17-2022 15:18-0400 Body height 170.18 cm Stevan Galdamez Work Phone: SQ-Dewaacjgfseoqw-Jm [place] Work Phone: 03-17-2022 15:18-0400 Body mass index (BMI) [Ratio] 32.26 kg/m2 Stevan Galdamez Work Phone: EN-Dgpchikvjkqufm-Sp [place] Work Phone: 03-17-2022 15:18-0400 Body surface area Derived from formula 2.05 m2 Stevan Galdamez Work Phone: OA-Wklagjsxwxduyz-Qv [place] Work Phone: 03-17-2022 15:18-0400 Body temperature 98.4 [degF] Stvean Galdamez Work Phone: JQ-Giqnvowzoajjoj-Pl [place] Work Phone: 03-17-2022 15:18-0400 Body weight 93.44 kg Stevan Galdamez Work Phone: VK-Zpbxcabcubeuux-Ew [place] Work Phone: 03-17-2022 15:18-0400 0 1 Stevan Galdamez Work Phone: UR-Flpkabsrxwaaka-Tv [place] Work Phone: Comment on above: [employer] Encounters Encounter Date Encounter Type Care Provider Facility Start: 04-23-2024 End: 04-23-2024 ambulatory Bonifacio GRAVES Facility:[facility] Start: 04-23-2024 End: 04-23-2024 Patient encounter procedure Bonifacio GRAVES [facility] [place] Start: 04-09-2024 ambulatory Bonifacio GRAVES Facility:[facility] Start: 03-20-2024 End: 03-20-2024 ambulatory [facility] Start: 01-01-2024 End: 01-01-2024 ambulatory Ailyn DUNN Facility:[facility] Start: 01-01-2024 End: 01-01-2024 Patient encounter procedure [facility] Start: 11-27-2023 End: 11-27-2023 ambulatory Stevan Ball Other [employer] Other Start: 11-27-2023 Office outpatient vi sit 15 minutes Stevan Ball [facility] Start: 11-27-2023 Telephone encounter Stevan Ball [facility] Start: 10-03-2023 End: 10-03-2023 ambulatory Stevan Ball Other [employer] Other Start: 10-03-2023 Office outpatient vi sit 25 minutes Stevan Ball [facility] Start: 09-21-2023 End: 09-21-2023 ambulatory Stevan Ball Other [employer] Other Start: 09-21-2023 Telephone encounter Stevan Ball [facility] Start: 09-04-2023 End: 09-04-2023 ambulatory Stevan Ball Other [employer] Other Start: 09-04-2023 Telephone encounter Stevan Ball [facility] Start: 09-01-2023 End: 09-01-2023 ambulatory Stevan Ball Other [employer] Other Start: 09-01-2023 Telephone encounter Stevan Ball [facility] Start: 08-28-2023 End: 08-28-2023 ambulatory Stevan Ball Other [employer] Other Start: 08-28-2023 Telephone encounter Stevan Ball [facility] Start: 08-17-2023 End: 08-17-2023 ambulatory Stevan Ball Other [employer] Other Start: 08-17-2023 Telephone encounter Stevan Ball [facility] Start: 08-10-2023 End: 08-10-2023 ambulatory Stevan Ball Other [employer] Other Start: 08-10-2023 Telephone encounter Stevan Ball [facility] Start: 08-08-2023 End: 08-08-2023 ambulatory Stevan Rudolph Other [employer] Other Start: 08-08-2023 Telephone encounter Stevan Ball [facility] Start: 07-12-2023 End: 07-12-2023 ambulatory Stevan Ball Other [employer] Other Start: 07-12-2023 Telephone encounter Stevan Ball [facility] Start: 07-07-2023 End: 07-07-2023 ambulatory Stevan Ball Other [employer] Other Start: 07-07-2023 Telephone encounter Stevan Ball [facility] Start: 06-13-2023 End: 06-13-2023 ambulatory Stevan Ball Other [employer] Other Start: 06-13-2023 Telephone encounter Stevan Ball [facility] Start: 06-08-2023 End: 06-08-2023 ambulatory Stevan Ball Other [employer] Other Start: 06-08-2023 Office outpatient vi sit 25 minutes Stevan Ball [facility] Start: 06-05-2023 End: 06-05-2023 ambulatory Stevan Ball Other [employer] Other Start: 06-05-2023 Telephone encounter Stevan Ball [facility] Start: 06-03-2023 End: 06-04-2023 ambulatory MD ALAN HENLEY Facility:[facility] Start: 06-02-2023 End: 06-02-2023 ambulatory Stevan Ball Other [employer] Other Start: 06-02-2023 Telephone encounter Stevan Ball [facility] Start: 06-01-2023 Telephone encounter Stevan Ball [facility] Start: 06-01-2023 End: 06-01-2023 ambulatory STEVAN BALL [employer] Other Start: 06-01-2023 End: 06-01-2023 Postop follow up visit related to original px Mone Watson AGRIBUSINESS PROFESSOR-CRAYON SORTING MACHINE FEEDER Work Phone: [facility]3] Orthopedics Comment on above: Hx of total knee art hroplasty, right (Primary Dx) Start: 05-29-2023 End: 05-29-2023 ambulatory Stevan Galdamez Other [employer] Other Start: 05-29-2023 Office outpatient vi sit 15 minutes Stevan Galdamez [facility] Start: 05-09-2023 End: 05-09-2023 ambulatory Stevan Galdamez Other [employer] Other Start: 05-09-2023 Telephone encounter [facility] Start: 05-08-2023 End: 05-09-2023 ambulatory [facility] Start: 05-08-2023 End: 05-09-2023 Subsequent hospital visit by physician Lazarus Coronado MD Work Phone: [facility]3] Med Surg Comment on above: Osteoarthritis of ri ght knee Start: 04-14-2023 End: 04-14-2023 ambulatory Stevan Galdamez Other [employer] Other Start: 04-14-2023 Encounter for other preprocedural examination [facility] Start: 04-14-2023 Office outpatient vi sit 25 minutes Stevan Galdamez [facility] Start: 04-13-2023 ambulatory [facility] Start: 04-13-2023 Encounter for other preprocedural examination [facility] Start: 04-11-2023 End: 04-11-2023 ambulatory Stevan Galdamez Other [employer] Other Start: 04-11-2023 Telephone encounter [facility] Start: 03-24-2023 End: 03-25-[address] STEVAN GALDAMEZ Facility: Start: 03-23-2023 ambulatory [facility] Start: 03-23-2023 ambulatory [facility] Start: 03-23-2023 End: 03-23-2023 Subsequent hospital visit by physician Mone Watson APRN-CABRERA Work Phone: [facility] Start: 03-23-2023 End: 03-23-2023 Office outpatient visit 40 minutes Lazarus Coronado MD Work Phone: [facility]3] Orthopedics Comment on above: Hx of total hip arth roplasty, left (Primary Dx); Right knee pain, unspecified chronicity Start: 03-23-2023 End: 03-23-2023 Subsequent hospital visit by physician Lazarus Coronado MD Work Phone: [facility] Start: 02-23-[address] STEVAN Wetzel ty:[facility] Start: 12-05-2022 End: 12-05-2022 Patient encounter procedure Ailyn DUNN [facility] Start: 12-03-2022 End: 12-04-2022 ambulatory AILYN DUNN Facility:[facility] Start: 11-03-2022 ambulatory STEVAN GALDAMEZ [facility] Start: 11-03-2022 End: 11-03-2022 Subsequent hospital visit by physician Mone Watson APRN-CRAYON SORTING MACHINE FEEDER Work Phone: [facility] Start: 10-27-2022 End: 10-28-[address] ANETA DUNN . Facility:[facility] Start: 10-10-2022 End: 10-11-[facility] Start: 10-10-2022 End: 10-11-2022 Encounter for preprocedural laboratory examination [facility] Start: 10-10-2022 End: 10-11-2022 Patient encounter status Lazarus Coronado MD Work Phone: [facility]3] Med Surg Start: 10-10-2022 End: 10-11-2022 Subsequent hospital visit by physician Lazarus Coronado MD Work Phone: [phone] [place] [address] Med Surg Comment on above: Primary osteoarthrit is of left hip Start: 09-27-2022 Pre-procedure evalua tion check Stevan Galdamez Other [employer] Other Start: 09-15-2022 ambulatory [facility] Start: 08-03-2022 ambulatory [facility] Start: 08-03-2022 ambulatory [facility] Start: 08-03-2022 End: 08-03-2022 Office outpatient new 60 minutes Lazarus Coronado MD Work Phone: [facility]3] Orthopedics Comment on above: Left hip pain (Prima ry Dx) Start: 08-03-2022 End: 08-03-2022 Subsequent hospital visit by physician Lazarus Coronado MD Work Phone: [facility] Start: 07-23-2022 Adult health examination Milan Galdamez Other [employer] Other Start: 07-21-2022 End: 07-22-[address] STEVAN GALDAMEZ Facility:[facility] Start: 06-15-2022 End: 06-16-[address] STEVAN GALDAMEZ Facility:[facility] Start: 05-05-2022 Encounter for preprocedural cardiovascular examination DR DOCTOR GILL [facility] Start: 05-05-2022 Encounter for preprocedural laboratory examination DR DOCTOR GILL [facility] Start: 05-04-2022 End: 05-21-[address] STEVAN GALDAMEZ Facility:[facility] Start: 05-03-2022 End: 05-04-[address] DOCTOR GILL Facility:[facility] Start: 05-03-2022 End: 05-04-2022 Encounter for preprocedural cardiovascular examination DR DOCTOR GILL Facility:[facility] Start: 03-17-2022 Office outpatient ne w 45 minutes Stevan Galdamez Work Phone: [facility] Work Phone: Evaluation finding Stevan hernandez Work Phone: [facility] Work Phone: Procedures Date Procedure Procedure Detail Performing Clinician Start: 05-09-2023 Basic metabolic panel calcium total Shahzad Whiting MD Work Phone: Start: 05-09-2023 Complete blood count with white cell differential, automated Mone Watson AGRIBUSINESS PROFESSOR-[employer] SORTING MACHINE FEEDER Work Phone: Start: 05-08-2023 Radiologic examination knee 1/2 views Mone Watson APRN-CRAYON SORTING MACHINE FEEDER Work Phone: Start: 05-08-2023 End: 05-08-2023 Arthrp kne condyle&platu medial&lat compartments Lazarus Coronado MD Work Phone: Start: 05-08-2023 Cultyp nuc acid amp prb cult/isolate ea orgnism Shahzad Whiting MD Work Phone: Start: 04-20-2023 Arthroplasty of knee Ailyn DUNN Start: 12-03-[address] STEVAN GALDAMEZ Comment on above: Performed By: #### PSAD #### [facility] [address] [place] [address] Dr. Natty Daily Start: 10-11-2022 Basic metabolic panel calcium total Shahzad Whiting MD Work Phone: Start: 10-11-2022 Complete blood count with white cell differential, automated Mone Watson APRN-CRAYON SORTING MACHINE FEEDER Work Phone: Start: 10-10-2022 Radiologic examination pelvis 1/2 views Mone Watson APRN-CRAYON SORTING MACHINE FEEDER Work Phone: Start: 10-10-2022 End: 10-10-2022 Arthrp acetblr/prox fem prostc agrft/algrft Lazarus Coronado MD Work Phone: Start: 10-10-2022 Drug test prsmv read direct optical obs pr date Fabian Masters DO Work Phone: Start: 10-10-2022 Blood group typing, RH phenotyping Lazarus Coronado MD Work Phone: Start: 10-10-2022 Sars-cov-2 detection by dna/rna Mone montoya APRN-[employer] Work Phone: Start: 11-20-2021 Repair of hip Ailyn DUNN Start: 11-09-2021 MRI-US fusion guided prostate biopsy Ailyn DUNN Start: 03-08-2018 Preoperative cardiovascular examination Stevan Galdamez Other Start: 10-24-2016 Preoperative pulmonary examination Milan Galdamez Other Start: 05-03-2016 Pre-surgery evaluation Stevan Galdamez Other Start: 09-18-2014 Cystoscopy Ailyn DUNN Start: 11-20-2013 Colonoscopy Bonifacio GRAVES Arthroscopy of knee Ailyn DUNN Catheterization of b oth left and right heart Ailyn DUNN Comment on above: stent placement End: 06-15-2022 Depression screening Stevan Galdamez Other Esophagogastroduodenoscopy Darya GRAVES Excision of lumbar i ntervertebral disc Ailyn DUNN Hemorrhoidectomy Ailyn HURLEY Laboratory test result abnormal Stevan Galdamez Other neck surgery Ailyn DUNN Placement of stent Placement of stent Ailyn DUNN Placement of stent i n coronary artery Bonifacio GRAVES Procedure on back Stevan Galdamez Work Phone: Procedure on neck Stevan Galdamez Work Phone: Repair of umbilical hernia Darya GRAVES Vasectomy Ailyn DUNN Plan of Treatment Date Care Activity Detail Author Start: 12-20-2024 ambulatory Ambulatory Facility:[facility] Parra Start: 05-08-2024 End: 05-08-2024 Patient encounter procedure 05/08/2024 9:00 AM EDT Office Visit [facility]3] Orthopedics [address] [place] [address], [place] [address] Mone Watson APRN-CNP [address] [place] [address] [facility]3] Orthopedics Start: 07-21-2023 Influenza vaccination A [facility] Start: 06-01-2023 End: 06-01-2023 Patient encounter procedure 06/01/2023 11:40 AM EDT Office Visit [facility] ([facility]3] Orthopedics [address] [place] [address], [place] [address] Mone Watson APRN-CNP [address] [place] [address] [facility]3] Orthopedics Start: 04-13-2023 End: 04-13-2023 ambulatory 04/13/2023 Pre-Operative Nurse Assessment Internal Medicine [facility]3] Pre Admission Start: 03-08-2023 End: 03-08-2023 Patient encounter procedure 03/08/2023 Office Visit Orthopaedics Lazarus Coronado MD [address] [place] [address] [facility]3] Orthopedics Start: 11-03-2022 End: 11-03-2022 Patient encounter procedure 11/03/2022 Office Visit Orthopaedics Mone Watson APRN-CABRERA [address] [place] [id number] [facility]3] Orthopedics Start: 09-15-2022 End: 09-15-2022 ambulatory 09/15/2022 Pre-Operative Nurse Assessment Internal Medicine [facility]3] Pre Admission Start: 08-03-2022 End: 08-03-2023 XR Pelvis 2 Views [facility] Work Phone: Comment on above: 1 Occurrences starti ng 08/03/2022 until 08/03/2022 Expected: 08/03/2022 , Expires: 08/03/2023 Start: 07-21-2022 Influenza vaccination INFLUENZA VACC INE (#1) [facility] Start: 06-03-2022 POV, Provider: Jamie Rojas, Status: Pen, Time: 9:45 AM POV, Provider: Jamie Rojas, Status: Pen, Time: 9:45 AM [facility] Work Phone: Start: 05-12-2021 COVID-19 VACCINE (3 - Booster for Pfizer series) COVID-19 VACCINE (3 - Booster for Pfizer series) [facility] Start: 05-12-2021 COVID-19 VACCINE (3 - Pfizer series) COVID-19 VACCINE (3 - Pfizer series) [facility] Start: 07-09-2020 Pneumococcal vaccination PNEUMOCOCCAL VACCINE SERIES (2 - PPSV23 if available, else PCV20) [facility] Start: 2018 Abdominal aortic aneurysm screening ABDOMINAL AORTIC ANEURYSM HIGH RISK SCREEN [facility] Start: 2018 Pneumococcal vaccination PNEUMOCOCCAL VACCINE SERIES (1 - PCV) [facility] Start: 2003 Prostate specific antigen measurement PROSTATE CANCER SCREENING DISCUSSION [facility] Start: 2003 Zoster vaccine hzv live for subcutaneous use ZOSTER (SHINGLES) VACCINE (1 of 2) [facility] Start: 1998 Colonoscopy COLORECTAL CAN CER SCREENING DISCUSSION [facility] Start: 1998 Screening for malignant neoplasm of colon COLORECTAL CANCER SCREENING DISCUSSION [facility] Start: 1993 Fasting lipid profile LIPID SCREENIN G [facility] Start: 1993 Lipid panel LIPID SCREENING [facility] Start: 1972 Third diphtheria, tetanus and acellular pertussis (DTaP) vaccination TDAP (ADULT) [facility] Start: 1971 Tetanus vaccination TETANUS [facility] Start: [birth year]20-1956 COVID-19 VACCINE (#1) COVID-19 VACCI NE (#1) [facility] Start: 1955 Hepatitis C antibody , confirmatory test HEPATITIS C VIRUS SCREENING [facility] Start: 1955 Hepatitis C screening HEPATITI S C VIRUS SCREENING [facility] Start: 1955 Tetanus vaccination TETANUS [facility] Radiography for bone length studies XR BONE LENGTH STUDY Imaging Routine Right knee pain, unspecified chronicity 03/23/2023 11:04 AM EDT [facility] Work Phone: End: 10-10-2022 RF Unspecified body region Views during surgery [facility] Comment on above: One Time for 1 Occur rences starting 10/10/2022 until 10/10/2022 SURGICAL PATHOLOGY REQUEST SURGICAL PATHOLOGY REQUEST Surg Path Routine Primary osteoarthritis of left hip Release Upon Ordering for 1 Occurrences starting 10/10/2022 [facility] Comment on above: Release Upon Orderin g for 1 Occurrences starting 10/10/2022 SURGICAL PATHOLOGY REQUEST SURGICAL PATHOLOGY REQUEST Surg Path Routine Primary osteoarthritis of right knee Release Upon Ordering for 1 Occurrences starting 05/08/2023 [facility] Comment on above: Release Upon Orderin g for 1 Occurrences starting 05/08/2023 XR Knee - right 3 Views XR KNEE RIGHT 3 VIEWS Imaging Routine Hx of total knee arthroplasty, right 06/01/2023 11:26 AM EDT [facility] XR Knee - right 4 Views [facility] Work Phone: Comment on above: Ordered: 03/23/2023 XR Pelvis and Hip - left Views XR HIP WITH PELVIS LEFT Imaging Routine Left hip pain 08/03/2022 2:08 PM T [facility] Work Phone: XR Pelvis and Hip - left Views XR HIP WITH PELVIS LEFT Imaging Routine Hx of total hip arthroplasty, left 11/03/2022 10:44 AM [facility] XR Pelvis and Hip - left Views XR HIP WITH PELVIS LEFT Imaging Routine Hx of total hip arthroplasty, left Ordered: 03/07/2023 [facility] Comment on above: Ordered: 03/07/2023 Immunizations Immunization Date Immunization Notes Care Provider Tiffanie daugherty 10-03-2023 influenza, high dose seasonal, preservative-free Stevan Galdamez Other [employer] Other 09-27-2022 influenza, high dose seasonal, preservative-free Stevan Galdamez Other [employer] Other 09-27-2022 influenza virus vaccine, split virus (incl. purified surface antigen) Stevan Galdamez Other [employer] Other 08-20-2021 influenza virus vaccine, split virus (incl. purified surface antigen) Stevan Galdamez Other [employer] Other 03-17-2021 SARS-CoV-2 (COVID-19 ) mRNA BNT-162b2 [employer] Ailyn MoPals [facility] 02-24-2021 SARS-CoV-2 (COVID-19 ) mRNA BNT-162b2 vax Ailyn [facility] 11-20-2020 SARS-CoV-2 (COVID-19 ) mRNA BNT-162m4 [employer] [facility] Comment on above: Result Comment: pt i s fully vaccinated but does not have his card with him 08-19-2020 influenza virus vaccine, split virus (incl. purified surface antigen) Stevan Galdamez Other [employer] Other 10-29-2019 tetanus and diphther ia toxoids, adsorbed, preservative free, for adult use (5 Lf of tetanus toxoid and 2 Lf of diphtheria toxoid) Stevan Galdamez Other [employer] Other 07-09-2019 pneumococcal conjuga te vaccine, 13 valent Stevan Galdamez Other [employer] Other 07-09-2019 pneumococcal Conjuga te, unspecified formulation; 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: [Need for prophylactic vaccination against Streptococcus pneumoniae (pneumococcus)] Stevan Galdamez Other [employer] Other Payers Date Payer Category Payer Private Health Insurance 2022 Medicare [id number] 2021 Private Health Insurance [facility] 2021 Unknown 1959 Medicare [id number] 1959 Private Health Insurance [facility] [id number] 1953 Unknown [id number] 2.16.84 0.1.369809.3.579.2.593 1953 Unknown [id number] 2.16.84 0.1.054096.3.579.2.593 1953 Unknown [id number] 2.16.84 0.1.764490.3.579.2.593 1953 Unknown [id number] 2.16.84 0.1.424130.3.579.2.593 1953 Unknown [id number] 2.16.84 0.1.910132.3.579.2.593 1953 Unknown [id number] 2.16.84 0.1.415525.3.579.2.593 1953 Unknown [id number] 2.16.84 0.1.913849.3.579.2.593 1953 Unknown [id number] 2.16.84 0.1.056788.3.579.2.593 1953 Unknown [id number] 2.16.8 40.1.394819.3.579.2.159 1953 Unknown [id number] 2.16.8 40.1.281701.3.579.2.983 1953 Unknown [id number] 2.16.8 40.1.489084.3.579.2.983 1953 Unknown [id number] 2.16.8 40.1.975524.3.579.2.983 1953 Unknown [id number] 2.16.8 40.1.740477.3.579.2.983 1953 Unknown [id number] 2.16.8 40.1.478054.3.579.2.983 1953 Unknown [id number] 2.16.8 40.1.801509.3.579.2.983 1953 Unknown [id number] 2.16.8 40.1.391746.3.579.2.983 1953 Unknown [id number] 2.16.8 40.1.831755.3.579.2.983 1953 Unknown [id number] 2.16.8 40.1.233113.3.579.2.983 1953 Unknown [id number] 2.16.8 40.1.766680.3.579.2.983 1953 Unknown [id number] 2.16.8 40.1.274746.3.579.2.983 1953 Unknown [id number] 2.16.8 40.1.827543.3.579.2.983 1953 Unknown [id number] 2.16.8 40.1.489332.3.579.2.983 1953 Unknown [id number] 2.16.8 40.1.497398.3.579.2.983 1953 Unknown [id number] 2.16.8 40.1.534244.3.579.2.727 1953 Unknown [id number] 2.16.8 40.1.001713.3.579.2.727 1953 Unknown [id number] 2.16.8 40.1.853781.3.579.2.727 Social History Date Type Detail Facility Start: 05-09-2023 End: 06-01-2023 Former smoker Former smoker [facility] Work Phone: Start: 08-03-2022 End: 04-23-2024 Tobacco smoking status NHIS Ex-smoker [facility] End: 11-20-1988 History of tobacco use Cigarette Smoker [facility] [employer] Start: 08-03-2022 End: 06-01-2023 Alcohol intake Current drinker of alcohol (finding) [facility] Start: 08-03-2022 History SDOH Alcohol Comment daily [facility] Start: 1955 Sex Assigned At Not on file A [facility] End: 11-20-1988 History of tobacco use Current smoker [facility] Start: 09-13-2022 End: 04-04-2023 Tobacco use and exposure Smokeless tobacco non-user [facility] Start: 09-30-2022 End: 05-08-2023 Exposure to SARS-CoV-2 (event) Not sure [facility] Tobacco smoking status Never [facility] Start: 05-09-2023 End: 06-01-2023 Sex Assigned At Male [facility] Start: 04-04-2023 Alcohol Comment hard cider daily [facility] Medical Equipment Procedure Code Equipment Code Equipment Origin al Text Equipment Identifier Dates Bi Mentum Liner [id number] Start: 10-10-2022 22 gauge needle, See Instructions, 12 EA, 1, Use 2 needles per month, one to draw up and one for injection, [id number], Supply, 179, cm, 06/05/20 11:23:00 EDT, Height/Length Measured, 88, kg, 06/05/20 11:23:00 EDT, Weight Measured Start: 06-19-2020 Insert - Knee - [id number] Start: 05-08-2023 22 gauge needle, See Instructions, 12 EA, 1, Use 2 needles per month, one to draw up and one for injection, [id number], Supply, 179, cm, 06/05/20 11:23:00 EDT, Height/Length Measured, 88, kg, 06/05/20 11:23:00 EDT, Weight Measured Start: 06-19-2020 22 gauge needle, See Instructions, 12 EA, 1, Use 2 needles per month, one to draw up and one for injection, [id number], Supply, 179, cm, 06/05/20 11:23:00 EDT, Height/Length Measured, 88, kg, 06/05/20 11:23:00 EDT, Weight Measured Start: 06-19-2020 Functional Status Date Assessment Result Facility 04-23-2024 Functional Status N/A [facility] [place] 01-01-2024 Functional Status N/A [facility] 12-05-2022 Functional Status N/A [facility] Clinical Notes 03-17-2022 to 04-23-2024 Note Date & Type Note Facility 04-23-2024 Note Chief Complaint consultation for colonoscopy HPI Staff 68 year old male presents on consultation from Dr. Galdamez for screening colonoscopy. Denies abdominal or rectal pain. No rectal bleeding or change in bowel habits. Denies nausea or vomiting. No unexplained weight loss. Last colonoscopy completed 2013 with diverticulosis. History of Present Illness 68 yo male with h/o CAD, htn, hyperlipidemia, lumbar radiculopathy, CYNTHIA, RLS, BPH, GERD, referred for screening colonoscopy; denies change in bms or blood in stools; no abd complaints; last colonoscopy 2013 with sigmoid diverticulosis; abd operations significant for umbilical hernia repair; no asa or NSAID use; no tobacco use; no fmhx of GI malignancy or IBD. Review of Systems PHQ Score Initial Depression Screen Score: 0 SCORE ROS - Provider Constitutional: no fever, no sweats, no weight loss. Eyes: no glasses, no blurred vision, no visual loss. ENMT: no dentures, no hoarseness, no swallowing difficulties, no hearing loss, no ear infection(s), no nose bleeds. Cardiovascular: normal blood pressure, no chest pain, regular heartbeat, no heart murmur. Respiratory: no shortness of breath, no cough, no asthma, no wheezing. Gastrointestinal: no nausea, no vomiting, no diarrhea, no constipation, no blood in stool, no change in bowel habits, no abdominal pain, no hepatitis. Genitourinary: no kidney stones, no urine infection, no dysuria. Musculoskeletal: no pain, no weakness. Skin: no changing moles, no rash, no skin lumps. Neurologic: no seizures, no epilepsy, no headache. Psychiatric: no emotional or psychiatric problem. Heme/Lymph: no bleeding problems, no anemia, no blood clots, no transfusions. Allergy/Immunologic: no swollen lymph nodes/glands, no IV drug abuse. Other: Additional ROS info: Except as noted in the above Review of Systems and in the History of Present Illness, all other systems have been reviewed and are negative or noncontributory. Physical Exam Vitals & Measurements HR: 50(Peripheral) RR: 16 BP: 130/71 HT: 65 in HT: 165 cm WT: 82.8 kg WT: 182.16 lb BMI: 30.41 HEENT: normal conjunctiva, sclera clear, no scleral icterus, EOM intact, PERRLA, oral mucosa moist without lesions. Neck: trachea midline, no mass, symmetric, no thyromegaly or nodules, no adenopathy Respiratory: lungs CTA, respirations non labored. Cardiovascular: regular rate and rhythm, no murmur, no pedal edema or varicosities. Gastrointestinal: obese,soft, non distended, no tenderness, no masses, no palpable hernias, diastasis recti no, no hepatosplenomegaly; normal bs Lymphatic: no cervical adenopathy, no supraclavicular adenopathy. Musculoskeletal: normal gait, digits and nails without infection, nodes, cyanosis, clubbing. Skin: no rashes, no lesions, no ulcers, no subcutaneous nodules, induration. Psychiatric/Neuro: oriented to time, place, person, judgement normal, affect appropriate for age, insight intact, no focal deficits. Tests: , review of old records completed , Discussed surgical options, risks, and possible complications with patient. Assessment/Plan 1. Screening for malignant neoplasm of colon (Z12.11: Encounter for screening for malignant neoplasm of colon) plan colonoscopy under anesthesia, informed consent obtained. Follow-up No qualifying data available Problem List/Past Medical History Ongoing BMI 30.0-30.9,adult Coronary atherosclerosis Depression Diverticulosis Elevated PSA Enlarged prostate with urinary obstruction Erectile dysfunction Familial hypercholesterolemia Former smoker GERD (gastroesophageal reflux disease) Hearing loss Heart disease Hematuria Hyperlipidemia Hypertension Hypogonadism male Lumbar radiculopathy Lumbar spondylosis Microscopic hematuria Nocturia Obesity due to excess calories CYNTHIA (obstructive sleep apnea) Proteinuria Retrograde ejaculation RLS (restless legs syndrome) Screening for malignant neoplasm of colon Seasonal allergic rhinitis Umbilical hernia Historical Benign hypertension BPH - benign prostatic hyperplasia Placement of stent Procedure/Surgical History Arthroplasty of knee (04/2023), Arthroplasty of the hip (2021), MRI-US fusion guided prostate biopsy (11/09/2021), Cystoscopy (09/18/2014), Colonoscopy (2013), Arthroscopy of knee, Cardiac catheterisation, combined right and left heart, EGD - esophagogastroduodenoscopy, Hemorrhoidectomy, Insertion of coronary artery stent, Lumbar discectomy, neck surgery, Repair of umbilical hernia, Vasectomy. Medications 22 gauge needle, See Instructions, 1 refills 3mL syringe, See Instructions, 1 refills amLODIPine-benazepril 5 mg-20 mg Cap, 1 cap(s), Oral, Daily buPROPion 150 mg ER Tab, 150 mg= 1 tab(s), Oral, Daily buPROPion 300 mg/24 hours ER Tab, 300 mg= 1 tab(s), Oral, Daily Cialis 20 mg Tab, 20 mg= 1 tab(s), Oral, As Directed, 3 refills finasteride 5 mg Tab, 5 mg= 1 tab(s), Oral, Daily, 3 refills Flomax 0.4 mg Cap, 0.4 (more content not included)... [facility] Comment on above: Result Comment: Elec tronically Signed By: ELY SHEETS, Bonifacio Daniels.antonio\Date and Time Signed: 04/23/24 09:05 EDT 03-20-2024 Note Patient here for 1 y ear follow up CAD, hypertension, and hyperlipidemia. Denies chest pain, SOB, palpitations, and lightheadedness/syncope. He was admitted in May 2023 for upper GI bleed. Doing very well since then. [facility] 03-20-2024 Note [place] Cardiology Note HPI Chief Complaint: Seth Bell is a 66 y.o. male here for Coronary Artery Disease, Hypertension, and Hyperlipidemia Patient here for follow up of Coronary Artery Disease, Hypertension, and Hyperlipidemia. Patient adamantly denies any cardiac complaints or concerns. Patient denies any chest pain or shortness of breath. Patient denies any lower extremity edema, orthopnea, or proximal nocturnal dyspnea. No near-syncope or syncope. No dizziness or lightheadedness. Review of Systems 10 point ROS was performed and is negative unless otherwise specified in HPI Visit Vitals BP 130/88 (BP Location: Left arm, Patient Position: Sitting) Pulse 66 Ht 1.778 m (5' 10 ) Wt 83.9 kg (185 lb) SpO2 97% BMI 26.54 kg/m??? Smoking Status Former BSA 2.04 m??? Medications: Current Outpatient Medications on File Prior to Visit Medication Sig Dispense Refill amLODIPine-benazepriL (Lotrel) 5-20 mg capsule Take 1 capsule by mouth in the morning. aspirin 81 mg EC tablet Take 81 mg by mouth in the morning. atorvastatin (Lipitor) 80 mg tablet in the evening. buPROPion XL (Wellbutrin XL) 300 mg 24 hr tablet Take 450 mg by mouth 1 (one) time each day at the same time. cyclobenzaprine (Flexeril) 10 mg tablet cyclobenzaprine 10 mg tablet TAKE 1 TABLET BY MOUTH EVERY DAY AT BEDTIME finasteride (Proscar) 5 mg tablet finasteride 5 mg tablet TAKE 1 TABLET BY MOUTH DAILY metoprolol succinate XL (Toprol-XL) 50 mg 24 hr tablet metoprolol succinate ER 50 mg tablet,extended release 24 hr Take 1 tablet by mouth daily tamsulosin (Flomax) 0.4 mg 24 hr capsule Take 0.4 mg by mouth 2 times daily. traZODone (Desyrel) 50 mg tablet trazodone 50 mg tablet TAKE 1 TABLET BY MOUTH EVERY DAY AT BEDTIME pantoprazole (ProtoNix) 40 mg EC tablet Take 40 mg by mouth in the morning and at bedtime. No current facility-administered medications on file prior to visit. Physical Exam: Constitutional: Appearance: Normal appearance. Without apparent distress HENT: Head: Normocephalic and atraumatic. Nose: Nose normal. Mouth/Throat: Mouth: Mucous membranes are moist. Eyes: Extraocular Movements: Extraocular movements intact. Conjunctiva/sclera: Conjunctivae normal. Neck: Vascular: No JVD. Cardiovascular: Rate and Rhythm: Normal rate and regular rhythm. Pulses: Dorsalis pedis pulses are 3 on the right side and 3on the left side. Posterior tibial pulses are 3 on the right side and 3 on the left side. Heart sounds: Normal heart sounds, S1 normal and S2 normal. Pulmonary: Effort: Pulmonary effort is normal. Breath sounds: Normal breath sounds. Abdominal: General: Bowel sounds are normal. Palpations: Abdomen is soft. Musculoskeletal: General: Normal range of motion. Cervical back: Normal range of motion. Right lower leg: No edema. Left lower leg: No edema. Skin: General: Skin is warm and dry. Capillary Refill: Capillary refill takes less than 2 seconds. Neurological: General: No focal deficit present. Mental Status: She is alert and oriented to person, place, and time. Psychiatric: Mood and Affect: Mood normal. Behavior: Behavior normal. Thought Content: Thought content normal. Judgment: Judgment normal. Labs: 08/24/21 CBC normal, Renal function normal, Liver function normal Lipd level stable CHOL 154, LDL 71.8 Last lab values have been reviewed CV Testing: EKG today- sinus bradycardia HR 58 bpm, no acute ST or T waves changes and no acute concerns. Assessment/Plan: Mixed hyperlipidemia Patient is on atorvastatin 80 mg daily Continue current dose Essential hypertension He states that his blood pressure is well controlled at home Continue current medication regimen Monitor Bp at home, 2 hours after taking meds, and contact Cardiology if Bp is above discussed target range. Coronary artery disease involving point hope ira coronary artery of point [place]a heart without angina pectoris Patient adamantly denies any angina or anginal equivalent Continue aspirin, beta-juvenal, atorvastatin He states that he is very active and is not having any chest pain or shortness of breath -Optimize medical management -Aggressive risk factor modification -Plan of care discussed with patient. All questions were answered. Patient voices understanding and is agreeable with current plan. -Patient was educated on red flag symptoms. Strict return precautions were provided. Patient verbalizes understanding -Follow-up in cardiology clinic Joaquim Chaudhary MD [place] Interventional Cardiology [facility] 01-01-2024 Hospital Discharge instructions Patient Education 01/01/2024 12:51:39 Prostate Cancer Screening Prostate Cancer Screening Prostate cancer screening is testing that is done to check for the presence of prostate cancer in men. The prostate gland is a walnut-sized gland that is located below the bladder and in front of the rectum in males. The function of the prostate is to add fluid to semen during ejaculation. Prostate cancer is one of the most common types of cancer in men. Who should have prostate cancer screening? Screening recommendations vary based on age and other risk factors, as well as between the professional organizations who make the recommendations. In general, screening is recommended if: You are age 50 to 70 and have an average risk for prostate cancer. You should talk with your health care provider about your need for screening and how often screening should be done. Because most prostate cancers are slow growing and will not cause , screening in this age group is generally reserved for men who have a 10- to 15-year life expectancy. You are younger than age 50, and you have these risk factors: ?Having a father, brother, or uncle who has been diagnosed with prostate cancer. The risk is higher if your family member's cancer occurred at an early age or if you have multiple family members with prostate cancer at an early age. ?Being a male who is Black or is of [place] or sub-Saharan descent. In general, screening is not recommended if: You are younger than age 40. You are between the ages of 40 and 49 and you have no risk factors. You are 70 years of age or older. At this age, the risks that screening can cause are greater than the benefits that it may provide. If you are at high risk for prostate cancer, your health care provider may recommend that you have screenings more often or that you start screening at a younger age. How is screening for prostate cancer done? The recommended prostate cancer screening test is a blood test called the prostate-specific antigen (PSA) test. PSA is a protein that is made in the prostate. As you age, your prostate naturally produces more PSA. Abnormally high PSA levels may be caused by: Prostate cancer. An enlarged prostate that is not caused by cancer (benign prostatic hyperplasia, or BPH). This condition is very common in older men. A prostate gland infection (prostatitis) or urinary tract infection. Certain medicines such as male hormones (like testosterone) or other medicines that raise testosterone levels. A rectal exam may be done as part of prostate cancer screening to help provide information about the size of your prostate gland. When a rectal exam is performed, it should be done after the PSA level is drawn to avoid any effect on the results. Depending on the PSA results, you may need more tests, such as: A physical exam to check the size of your prostate gland, if not done as part of screening. Blood and imaging tests. A procedure to remove tissue samples from your prostate gland for testing (biopsy). This is the only way to know for certain if you have prostate cancer. What are the benefits of prostate cancer screening? Screening can help to identify cancer at an early stage, before symptoms start and when the cancer can be treated more easily. There is a small chance that screening may lower your risk of dying from prostate cancer. The chance is small because prostate cancer is a slow-growing cancer, and most men with prostate cancer from a different cause. What are the risks of prostate cancer screening? The main risk of prostate cancer screening is diagnosing and treating prostate cancer that would never have caused any symptoms or problems. This is called overdiagnosisand overtreatment. PSA screening cannot tell you if your PSA is high due to cancer or a different cause. A prostate biopsy is the only procedure to diagnose prostate cancer. Even the results of a biopsy may not tell you if your cancer needs to be treated. Slow-growing prostate cancer may not need any treatment other than monitoring, so diagnosing and treating it may cause unnecessary stress or other side effects. Questions to ask your health care provider When should I start prostate cancer screening? What is my risk for prostate cancer? How often do I need screening? What type of screening tests do I need? How do I get my test results? What do my results mean? Do I need treatment? Where to find more information The [place] [employer]: www.cancer.org [place] [employer]: www.auanet.org Contact a health care provider if: You have difficulty urinating. You have pain when you urinate or ejaculate. You have blood in your urine or semen. You have pain in your back or in the area of your prostate. Summary Prostate cancer is a common type of cancer in men. The prostate gland is located below the bladder and in front of the rectum. This gland adds fluid to semen during ejaculation. Prostate cancer screening may identify cancer at an early stage, when the cancer can be treated more easily and is less likely to have spread to other areas of the body. The prostate-specific antigen (PSA) test is the recommended screening test for prostate cancer, but it has associated risks. Discuss the risks and benefits of prostate cancer screening with your health care provider. If you are age 70 or older, the risks that screening can cause are greater than the benefits that it may provide. This information is not intended to replace advice given to you by your health care provider. Make sure you discuss any questions you have with your health care provider. Document Revised: 05/02/2022 Document Reviewed: 05/02/2022 [employer] Patient Education 2022 [employer]. Follow Up Care 12/05/2022 10:43:19 With:SHAUN SHEETS, Ailyn Dee, URL Address: [facility] [address] , [place] [address] [phone] When:Within 1 Year(s) Comments:w/ PSA [facility] Марина 11-27-2023 Evaluation note Encounter Date Diagnosis Assessment Notes Nov, COVID-19 (ICD-10 - U07.1) Instructed to use Robitussin or Mucinex for cough, saline or Flonase NS for congestion, Tylenol for pain and fever. Self isolate at home. - Cannot work - avoid contact with others - avoid pets - wipe counters, door knobs if touched - if can't avoid leaving home, must wear mask to protect others - need to stay isolated for 10 days from onset of symptoms - to discontinue isolation must be 5 days AND must be without fever for 24 hours AND symptoms must be improving. Always wear a mask in public places for complete 10 days Nov, ASHD (arterios clerotic heart disease) (ICD-10 - I25.10) Increases risk for more severe infection [employer] Other 01-08-2024 Evaluation note* Encounter Date Diagnosis Assessment Notes Treatment Notes Treatment Clinical Notes Nov, COVID-19 (ICD-10 - U07.1) [employer] Other 11-14-2023 Evaluation note* Encounter Date Diagnosis Assessment Notes Treatment Notes Treatment Clinical Notes Sep, ASHD (arteriosclerotic heart disease) (ICD-10 - I25.10) This patient is stable without activity related CP, dyspnea or lightheadedness. They are instructed to continue exercise and AHA diet plan. Continue secondary prevention measures. Sep, Hyperlipidemia type II (ICD-10 - E78.01) Instructed on diet and exercise with continued statin therapy.Discussed the beneficial effects of lowering cholesterol in reducing the risk for cerebrovascular and cardiovascular disease. Sep, Primary hypertension (ICD-10 - I10) This patient is instructed to consume a healthy, low-fat, low-salt diet. They are also encouraged to continue exercise to achieve/maintain a normal BMI. Sep, Gastroesophageal reflux disease with esophagitis without hemorrhage (ICD-10 - K21.00) Diet instructions: Smaller portions, avoid eating and laying flat, avoid eating or drinking prior to bedtime. Weight loss. Stop Carafate and decrease PPI to qd. Sep, Acute gastric ulcer with hemorrhage (ICD-10 - K25.0) Continue PPI Due for colonoscopy next year, will consider repeat EGD simultaneously Sep, Acute blood loss anemia (ICD-10 - D62) Slowly improving Latest Hgb 12.6gms He denies N/V, heartburn, abdominal pain, melena or hematochezia Sep, Recurrent major depressive disorder, in full remission (ICD-10 - F33.42) Mood and affect normal. Active lifestyle, looking forward to hunting. [employer] Other 11-02-2023 Evaluation note* Encounter Date Diagnosis Assessment Notes Treatment Notes Treatment Clinical Notes Sep, Acute blood loss anemia (ICD-10 - D62) [employer] Other 09-28-2023 Evaluation note* Encounter Date Diagnosis Assessment Notes Treatment Notes Treatment Clinical Notes Jul, ASHD (arteriosclerot ic heart disease) (ICD-10 - I25.10) Jul, Pure hypercholestero lemia (ICD-10 - E78.00) [employer] Other 09-21-2023 Evaluation note* Encounter Date Diagnosis Assessment Notes Treatment Notes Treatment Clinical Notes Jul, Primary hypertension (ICD-10 - I10) [employer] Other 07-20-2023 Evaluation note* Encounter Date Diagnosis Assessment Notes Treatment Notes Treatment Clinical Notes May, Acute blood loss anemia (ICD-10 - D62) Healthy diet Monitor for recurrent N/V/D, melena or hematemesis H/H in 1 month May, Acute gastric ulcer with hemorrhage (ICD-10 - K25.0) COntinue PPI bid x 8 wks Carafate bid Healthy diet Stop all NSAIDs and COX2 meds Hold ASA until Jun 20 May, RLS (restless legs syndrome) (ICD-10 - G25.81) Stretching exercises Start Gabapentin - 100mg and increase 100mg every 2 nights until resolves or reach 300mg May, Primary hypertension (ICD-10 - I10) This patient is instructed to consume a healthy, low-fat, low-salt diet. They are also encouraged to continue exercise to achieve/maintain a normal BMI. Low BP due to anemia - reduce lotrel to 5/20 for now May, ASHD (arteriosclerotic heart disease) (ICD-10 - I25.10) Holding ASA due to acute UGI bleed, resume after holding for 2 wks [employer] Other 07-17-2023 Evaluation note* Encounter Date Diagnosis Assessment Notes Treatment Notes Treatment Clinical Notes May, Acute blood loss anemia (ICD-10 - D62) [employer] Other 07-14-2023 Evaluation note* Encounter Date Diagnosis Assessment Notes Treatment Notes Treatment Clinical Notes May, Nausea (ICD-10 - R11.0) [employer] Other 07-13-2023 Evaluation note* Encounter Date Diagnosis Assessment Notes Treatment Notes Treatment Clinical Notes May, Bilateral carotid bruits (ICD-10 - R09.89) [employer] Other 07-13-2023 History of Present illness Narrative* Kayley Lisa LPN - 06/01/2023 11:40 AM EDT Ortho Nurse - Established Patient Intake Room#: 5 Date: 06/01/2023 11:43 AM Patient: Seth Bell MR#: [id number] : 1955 Age: 67 y.o. 3 wks s/p R TKA. He states he is doing well and having very minimal pain in his knee. Uses his walker for distance only. He has had some bruising and discomfort on his lower rdz area. Referring Physician: Mone Watson APRN-CNP Insurance: Payor: MEDICARE / Plan: MEDICARE A AND B / Product Type: *No Product type* / Chief Complaint Patient presents with Right Knee - Post Op Visit Visit Vitals Temp 97.4 F (36.3 C) (Temporal) Ht 1.651 m (5' 5 ) Wt 89.4 kg (197 lb) BMI 32.78 kg/m Pain Recent Labs No results found for: CRP No results found for: SEDRATE Lab Results Component Value Date WBC 11.9 (H) 05/09/2023 HGB 9.0 (L) 05/09/2023 HCT 25.8 (L) 05/09/2023 PLATELET 149 05/09/2023 MCV 90.0 05/09/2023 History 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 CYNTHIA (obstructive sleep apnea) Sciatica, right side Past Surgical History: Procedure Laterality Date ARTHROPLASTY KNEE TOTAL Right 05/08/2023 Laterality: Right; Surgeon: Lazarus Coronado MD; Location: [facility] OR ARTHROPLASTY HIP TOTAL ANTERIOR APPROACH Left 10/10/2022 Laterality: Left; Surgeon: Lazarus Coronado MD; Location: [facility] OR BACK SURGERY 2015 x2 NECK SURGERY 2015 x2 HEART CATHETERIZATION 2007 stent x1 COLONOSCOPY DIAGNOSTIC EAR SURGERY Left titanium piece placed OTHER SURGICAL prostate biopsy Family History: His family history includes Dementia in his mother; Diabetes in his father. Social History: His reports that he quit smoking about 34 years ago. His smoking use included cigarettes. He has never used smokeless tobacco. He reports current alcohol use. He reports current drug use. Drug: Marijuana. Outpatient Medications Prior to Visit Medication Sig Dispense Refill Acetaminophen 325 MG tablet Take 2 tablets by mouth every 4 hours as needed for Mild Pain. 50 tablet 1 amlodipine-benazepril 5-40 MG capsule PM Aspirin [address] tablet At bedtime. Aspirin [address] tablet Take 1 tab twice a day for 30 days. This medication is for blood clot prevention. 60 tablet 0 atorvastatin 80 MG tablet Take 1 tablet by mouth every evening. buPROPion HCl ER, XL, 450 MG Tab SR 24 HR Take 300 mg by mouth daily. Celecoxib 200 MG capsule Take 1 capsule by mouth 2 times daily. 84 capsule 0 cyclobenzaprine 10 MG tablet Take 1 tablet by mouth at bedtime. Diclofenac sodium (Voltaren) 1 % Gel gel Apply 2 g topically as needed. Docusate 100 MG capsule Take 1 capsule by mouth 2 times daily. 60 capsule 0 finasteride 5 MG tablet medicinal cannabis (MEDICINAL MARIJUANA) by Unknown route. 2 puffs once daily metoprolol succinate 50 MG tablet XL Take 1 tablet by mouth daily. pm Misc. Devices (Raised Toilet Seat) Misc 1 Units by Unknown route daily. (Patient not taking: Reported on 03/23/2023) 1 Each 0 naloxone 4 MG/0.1ML 1 spray by Nasal route once for 1 dose. [place] into the nose as directed. Call 911. If no response in 2 minutes use a new nasal spray in other nostril. Repeat until help arrives. 1Each 0 omeprazole [address] capsule Take 1 capsule by mouth daily. 30 capsule 0 oxyCODONE 5 MG tablet Take 1-2 tabs po q 4-6 hours prn pain. Wean as tolerated. 30 tablet 0 Tamsulosin HCl 0.4 MG capsule tamsulosin 0.4 mg capsule TAKE 1 CAPSULE BY MOUTH EVERY DAY therapeutic multivitamin-minerals tablet Take 1 tablet by mouth at bedtime. 30 tablet 0 traZODone 50 MG tablet Take 1 tablet by mouth at bedtime. No facility-administered medications prior to visit. Current Outpatient Medications: Acetaminophen 325 MG tablet, Take 2 tablets by mouth every 4 hours as needed for Mild Pain., Disp: 50 tablet, Rfl: 1 amlodipine-benazepril 5-40 MG capsule, PM, Disp: , Rfl: Aspirin [address] tablet, At bedtime., Disp: , Rfl: Aspirin [address] tablet, Take 1 tab twice a day for 30 days. This medication is for blood clot prevention., Disp: 60 tablet, Rfl: 0 atorvastatin 80 MG tablet, Take 1 tablet by mouth every evening., Disp: , Rfl: buPROPion HCl ER, XL, 450 MG Tab SR 24 HR, Take 300 mg by mouth daily., Disp: , Rfl: Celecoxib 200 MG capsule, Take 1 capsule by mouth 2 times daily., Disp: 84 capsule, Rfl: 0 cyclobenzaprine 10 MG tablet, Take 1 tablet by mouth at bedtime., Disp: , Rfl: Diclofenac sodium (Voltaren) 1 % Gel gel, Apply 2 g topically as needed., Disp: , Rfl: Docusate 100 MG capsule, Take 1 capsule by mouth 2 times daily., Disp: 60 capsule, Rfl: 0 finasteride 5 MG tablet, , Disp: , Rfl: medicinal cannabis (MEDICINAL MARIJUANA), by Unknown route. 2 puffs once daily, Disp: , Rfl: metoprolol succinate 50 MG tablet XL, Take 1 tablet by mouth daily. pm, Disp: , Rfl: Misc. Devices (Raised Toilet Seat) Misc, 1 Units by Unknown route daily. (Patient not taking: Reported on 03/23/2023), Disp: 1 Each, Rfl: 0 naloxone 4 MG/0.1ML, 1 spray by Nasal route once for 1 dose. [place] into the nose as directed. Call 911. If no response in 2 minutes use a new nasal spray in other nostril. Repeat until help arrives.,Disp: 1 Each, Rfl: 0 omeprazole [address] capsule, Take 1 capsule by mouth daily., Disp: 30 capsule, Rfl: 0 oxyCODONE 5 MG tablet, Take 1-2 tabs po q 4-6 hours prn pain. Wean as tolerated., Disp: 30 tablet, Rfl: 0 Tamsulosin HCl 0.4 MG capsule, tamsulosin 0.4 mg capsule TAKE 1 CAPSULE BY MOUTH EVERY DAY, Disp: ,Rfl: therapeutic multivitamin-minerals tablet, Take 1 tablet by mouth at bedtime., Disp: 30 tablet, Rfl:0 traZODone 50 MG tablet, Take 1 tablet by mouth at bedtime., Disp: , Rfl: Allergies: He has No Known Allergies. * Mone Watson APRN-[employer] SORTING MACHINE FEEDER - 06/01/2023 11:40 AM EDT HPI: Seth Bell is 3 weeks s/p right TKA. He is happy with his recovery to date and could not be happier with the outcomes of the operation. He is participating in PT in the outpatient setting, using aspirin for DVT prophylaxis along with compression stockings. He reports minimal discomfort of lower rdz area. Overall, he reports he is doing well. PHYSICAL EXAM: Today on examination he is Temp 97.4 F (36.3 C) (Temporal) Ht 1.651 m (5' 5 ) Wt 89.4 kg (197 lb) BMI 32.78 kg/m Smoking Status Former Body mass index is 32.78 kg/m . Pain is reported as 2/10. Incision is healing well without erythema, drainage, induration or evidence of dehiscence. There is mild global knee swelling. Calves are soft and non tender bilaterally with negative Homans sign. Distal neurovascular exam is intact. ROM is reported at 0-120 per patient, today it is found to be 0-125. The examination is stable to varus and valgus stress. DIAGNOSTIC STUDIES/INTERPRETATION: X-rays were reviewed today and reveal right total knee arthroplasty in good position and alignment unchanged from the immediate postop films. Assessment/Plan: 3 weeks postop right TKA. Continue DVT prophylaxis as prescribed. Continue physical therapy- if ROM goals not obtained the patient is to call the office for a follow up appointment otherwise plan for: follow up [address] Coronado is optional for clinical and radiological evaluation. Certainly see in office should an need arise. Dental prophylaxis was prescribed and instructions given. All questions were answered to his satisfaction. All questions and concerns were addressed at this appointment and the patient expressed understanding. All pertinent portions of the clinical air support operations operator documentation was reviewed and agree. PRIN[facility] Yo Ortho Nurse - Established Patient Intake Room#: 5 Date: 06/01/2023 11:43 AM Patient: Seth Bell MR#: [id number] : 1955 Age: 67 y.o. 3 wks s/p R TKA. He states he is doing well and having very minimal pain in his knee. Uses his walker for distance only. He has had some bruising and discomfort on his lower rdz area. Referring Physician: Mone Watson APRN-CNP Insurance: Payor: MEDICARE / Plan: MEDICARE A AND B / Product Type: *No Product type* / Chief Complaint Patient presents with Right Knee - Post Op Visit Visit Vitals Temp 97.4 F (36.3 C) (Temporal) Ht 1.651 m (5' 5 ) Wt 89.4 kg (197 lb) BMI 32.78 kg/m Pain Recent Labs No results found for: CRP No results found for: SEDRATE Lab Results Component Value Date WBC 11.9 (H) 05/09/2023 HGB 9.0 (L) 05/09/2023 HCT 25.8 (L) 05/09/2023 PLATELET 149 05/09/2023 MCV 90.0 05/09/2023 History 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 CYNTHIA (obstructive sleep apnea) Sciatica, right side Past Surgical History: Procedure Laterality Date ARTHROPLASTY KNEE TOTAL Right 05/08/2023 Laterality: Right; Surgeon: Lazarus Coronado MD; Location: [facility] OR ARTHROPLASTY HIP TOTAL ANTERIOR APPROACH Left 10/10/2022 Laterality: Left; Surgeon: Lazarus Coronado MD; Location: [facility] OR BACK SURGERY 2016 x2 NECK SURGERY 2016 x2 HEART CATHETERIZATION 2007 stent x1 COLONOSCOPY DIAGNOSTIC EAR SURGERY Left titanium piece placed OTHER SURGICAL prostate biopsy Family History: His family history includes Dementia in his mother; Diabetes in his father. Social History: His reports that he quit smoking about 34 years ago. His smoking use included cigarettes. He has never used smokeless tobacco. He reports current alcohol use. He reports current drug use. Drug: Marijuana. Outpatient Medications Prior to Visit Medication Sig Dispense Refill Acetaminophen 325 MG tablet Take 2 tablets by mouth every 4 hours as needed for Mild Pain. 50 tablet 1 amlodipine-benazepril 5-40 MG capsule PM Aspirin [address] tablet At bedtime. Aspirin [address] tablet Take 1 tab twice a day for 30 days. This medication is for blood clot prevention. 60 tablet 0 atorvastatin 80 MG tablet Take 1 tablet by mouth every evening. buPROPion HCl ER, XL, 450 MG Tab SR 24 HR Take 300 mg by mouth daily. Celecoxib 200 MG capsule Take 1 capsule by mouth 2 times daily. 84 capsule 0 cyclobenzaprine 10 MG tablet Take 1 tablet by mouth at bedtime. Diclofenac sodium (Voltaren) 1 % Gel gel Apply 2 g topically as needed. Docusate 100 MG capsule Take 1 capsule by mouth 2 times daily. 60 capsule 0 finasteride 5 MG tablet medicinal cannabis (MEDICINAL MARIJUANA) by Unknown route. 2 puffs once daily metoprolol succinate 50 MG tablet XL Take 1 tablet by mouth daily. pm Misc. Devices (Raised Toilet Seat) Misc 1 Units by Unknown route daily. (Patient not taking: Reported on 03/23/2023) 1 Each 0 naloxone 4 MG/0.1ML 1 spray by Nasal route once for 1 dose. [place] into the nose as directed. Call 911. If no response in 2 minutes use a new nasal spray in other nostril. Repeat until help arrives. 1Each 0 omeprazole [address] capsule Take 1 capsule by mouth daily. 30 capsule 0 oxyCODONE 5 MG tablet Take 1-2 tabs po q 4-6 hours prn pain. Wean as tolerated. 30 tablet 0 Tamsulosin HCl 0.4 MG capsule tamsulosin 0.4 mg capsule TAKE 1 CAPSULE BY MOUTH EVERY DAY therapeutic multivitamin-minerals tablet Take 1 tablet by mouth at bedtime. 30 tablet 0 traZODone 50 MG tablet Take 1 tablet by mouth at bedtime. No facility-administered medications prior to visit. Current Outpatient Medications: Acetaminophen 325 MG tablet, Take 2 tablets by mouth every 4 hours as needed for Mild Pain., Disp: 50 tablet, Rfl: 1 amlodipine-benazepril 5-40 MG capsule, PM, Disp: , Rfl: Aspirin [address] tablet, At bedtime., Disp: , Rfl: Aspirin [address] tablet, Take 1 tab twice a day for 30 days. This medication is for blood clot prevention., Disp: 60 tablet, Rfl: 0 atorvastatin 80 MG tablet, Take 1 tablet by mouth every evening., Disp: , Rfl: buPROPion HCl ER, XL, 450 MG Tab SR 24 HR, Take 300 mg by mouth daily., Disp: , Rfl: Celecoxib 200 MG capsule, Take 1 capsule by mouth 2 times daily., Disp: 84 capsule, Rfl: 0 cyclobenzaprine 10 MG tablet, Take 1 tablet by mouth at bedtime., Disp: , Rfl: Diclofenac sodium (Voltaren) 1 % Gel gel, Apply 2 g topically as needed., Disp: , Rfl: Docusate 100 MG capsule, Take 1 capsule by mouth 2 times daily., Disp: 60 capsule, Rfl: 0 finasteride 5 MG tablet, , Disp: , Rfl: medicinal cannabis (MEDICINAL MARIJUANA), by Unknown route. 2 puffs once daily, Disp: , Rfl: metoprolol succinate 50 MG tablet XL, Take 1 tablet by mouth daily. pm, Disp: , Rfl: Misc. Devices (Raised Toilet Seat) Misc, 1 Units by Unknown route daily. (Patient not taking: Reported on 03/23/2023), Disp: 1 Each, Rfl: 0 naloxone 4 MG/0.1ML, 1 spray by Nasal route once for 1 dose. [place] into the nose as directed. Call 911. If no response in 2 minutes use a new nasal spray in other nostril. Repeat until help arrives.,Disp: 1 Each, Rfl: 0 omeprazole [address] capsule, Take 1 capsule by mouth daily., Disp: 30 capsule, Rfl: 0 oxyCODONE 5 MG tablet, Take 1-2 tabs po q 4-6 hours prn pain. Wean as tolerated., Disp: 30 tablet, Rfl: 0 Tamsulosin HCl 0.4 MG capsule, tamsulosin 0.4 mg capsule TAKE 1 CAPSULE BY MOUTH EVERY DAY, Disp: ,Rfl: therapeutic multivitamin-minerals tablet, Take 1 tablet by mouth at bedtime., Disp: 30 tablet, Rfl:0 traZODone 50 MG tablet, Take 1 tablet by mouth at bedtime., Disp: , Rfl: Allergies: He has No Known Allergies. [facility] Miscellaneous Notes* Nursing Notes - Keira Qiu RN - 05/09/2023 3:41 PM EDT Discharge instructions and education reviewed with pt and his daughter, education provided for dx and new medications, printed education given, denies any questions. Hemovac care reviewed. HOLLY hose, ABDs, and ice packs provided. Meds to beds with integrity seal intact provided. * Nursing Notes - Keira Qiu RN - 05/09/2023 11:57 AM EDT Assessment is complete and remains unchanged from previous at this time with any exceptions noted in the flowsheet. Patient denies further needs and is left with call light and personals in reach. * Nursing Notes - Lily Gill RN - 05/09/2023 11:42 AM EDT Patient is admitted to Med Surg floor * Nursing Notes - Galilea Rodrigues RN - 05/09/2023 10:42 AM EDT Medhat was just given bedside teaching on his On Q Ball. The methods used for this teaching included discussion, hands on demonstrations, and material handouts. His teaching begin with the purpose of the On Q Ball and it's use. All parts of the Ball were discussed and the working of the dial. He was able to adjust his dial and flow rate. Medhat's rate is currently set at 2ml/hr and he is aware he can now increase his rate according to his level of pain. At this moment Medhat rates his pain level a 6 on a 1 to 10 scale. He understands his pain management once home should begin with his scheduled medication, his ice wrap, movement, adjusting his On Q Ball, and finally his prescribed narcotic pain medication. I then discussed in details when to remove the inserted catheter and how to remove it. Medhat is aware the On Q Ball is totally disposable. Signs and symptoms that need medical attention were discussed as well. General care and showering were addressed. Medhat stated he had a good understanding ofthe teaching provided. He agrees with the discharge Plan of Care for using the On Q Ball as his first line for pain management on discharge. The plan is for Medhat to be discharged home later today. * Nursing Notes - Diamond Alves RN - 05/09/2023 8:31 AM EDT Oxycodone 10 mg verified by this RN and administered to patient by Keira GUTIERREZ, unable to scan in [facility] due to connectivity issues. * Op Note - Lazarus Coronado MD - 05/09/2023 8:25 AM EDT DATE OF PROCEDURE: May 08, 2023 ATTENDING PHYSICIAN: Lazarus Coronado M.D. MANAGER OF PMO: Mone Watson CNP PREOPERATIVE DIAGNOSIS: Severe right knee osteoarthritis. POSTOPERATIVE DIAGNOSIS: Severe right knee osteoarthritis. PROCEDURES PERFORMED: 1. Right total knee arthroplasty. 2. Periarticular injection, right knee. 3. Placement of continuous catheter, adductor canal right knee. ANESTHESIA: General. ANESTHESIOLOGIST: Per record. ESTIMATED BLOOD LOSS: 25 mL. COMPLICATIONS: None. INTRAVENOUS FLUIDS: Adequate. SPECIMENS: Bone. INSTRUMENTATION USED: DePuy Attune size 7 right CR cemented femoral component with a size 5 tibial component, a size 8 CR polyethylene, and a 41 mm all-poly patella. INDICATIONS: Seth is a 67-year-old male with a history of debilitating right knee pain and a diagnosis of osteoarthritis, who failed conservative management. Given the options of treatment, patientelected to proceed forward with operative intervention and, for that reason, was scheduled for the procedure for which the patient appears today. Upon arrival to the preoperative unit, the risks, bene fits and alternatives were thoroughly explained, informed consent was verified, and the site was marked. After evaluation by Anesthesia and administration of preoperative antibiotics, patient was then brought to the operating room. DESCRIPTION OF THE PROCEDURE: Upon arrival to the operating room, patient was placed supine on the operating room table, and general anesthetic was induced. The right lower extremity was prepared forsurgery with the tourniquet, two leg holders and a bump. It was elevated, prepped, and draped in the standard sterile fashion. A proper timeout was performed. I began with elevation of the leg, and the tourniquet was increased to 250 mm/Hg. Total tourniquet time was 36 minutes. I then began with a midline incision and performed a medial parapatellar arthrotomy to the knee. In coming through the knee, I noted severe arthritis. A subperiosteal release was taken off the proximal medial tibial plateau. The fat pad was resected, the patella subluxed laterally, and the step drill was used to gain access to the intramedullary canal. I then set my distal femoral resection guide for 5 degrees, according to the preoperative plan, and performed the resection.The ACL was resected. The extramedullary alignment guide was assembled, and the tibial cut was referenced. Once done, the bony remnant was removed. The knee was then brought out into extension and assessed with a gap block. There was full extension and, with appropriate soft tissue balancing, slight laxity in the lateral compartment with neutral recreation of the mechanical axis as evidenced by the drop martinez. I then turned my attention back to the distal femur. With the distal femur now re-exposed, I set rotation using a 3-degree external rotation guide placed across the posterior condyles. I referenced this against the flexion gap, Zapata's line, and the epicondylar axis as well. I then used an anterior referencing stylus and sized it to a size 7. At this point then, the 4:1 cutting block was pinned into place, and all four cuts were performed. The f lexion space was opened up with the lamina engineer conductor, and the medial and lateral menisci were then removed. The posterior knee was inspected for loose bodies and then injected with the periarticular injection. I then subluxed forward the tibia and sized it to a size 5. I rotated it to the medial one-third ofthe tibial tubercle and ensured no overhang. I then used the tower, tibial drill and keel punch, and then placed the femoral trial with a 8 mm polyethylene. Overall, I had improved the preoperative range of motion, which was from approximately 7 to 110 degrees to approximately 0 to 120 degrees posto perative with a size 8 mm polyethylene. I had excellent balance of the knee with slight laxity in the lateral compartment throughout the arc of motion and anatomic tracking at the point hope ira patella. Thus, the patella itself was flipped over and measured to be approximately 23 mm pre-resection and composite after measured resection and resurfacing. A lateral facetectomy and neurectomy was performed. Patellar tracking remained unchanged, no subluxation or tilt. The trial components were then removed. The knee was thoroughly irrigated, cleaned and dried, and then the final implants were cemented into place. The knee was held with an axial load with a size 8 polyethylene until complete polymerization had occurred. Once done, I re-evaluated the knee. Performance was unchanged from the trials withfull range of motion, anatomic tracking of the patella, and a stable balanced ligamentous exam. Thetrial polyethylene was removed. The knee was again inspected for loose bodies. It was thoroughly irrigated. The final polyethylene was impacted into place, locked and verified to be secure. The periarticular injection was administered and the Betadine soak saline solution was used. Following this, a thorough pulsatile lavage irrigation was performed. The tourniquet was let down. Hemostasis was obtained 1 gram of vancomycin was placed deep to the implant and I turned my attention toward wound closure. The wound was closed with a #1 Vicryl around the pole of the patella and over sewn with a #2 Quill for the arthrotomy. Next, 0-Quill was used for the subcutaneous and subcuticular layer and for the skin, Dermabond. The extremity was cleansed. A sterile dressing applied. A HOLLY hose was applied over this with foot pumps. The patient was then awakened from anesthetic and taken to the postoperative care unit in stable condition. Prior to wound closure, I placed the On-Q catheter into the knee. I lifted up the VMO. I bluntly dissected up to the inferior border of the adductor canal. I passed the catheter; it flushed appropriately. Wound closure commenced as written above. POSTOPERATIVE PLAN OF CARE: 1. Weight bearing as tolerated, with physical therapy to start today. 2. IV antibiotics for 24 hours postop. 3. DVT prophylaxis, both mechanical and chemical. 4. Follow up in the office in 2-3 weeks. ATTENDING/ASSISTING PARTICIPATION: This operation could not have been safely performed (without compromising the technical results or length of the procedure) without the assistance of a skilled anesthesiology physician assistant. A anesthesiology physician assistant was medically necessary for positioning, retraction and instrume ntation. * Nursing Notes - Denise Treviño RN - 05/09/2023 12:54 AM EDT This RN assisted patient to bathroom at this time, x1 assist /c walker and gait belt. Before assisting the patient in ambulating to the bathroom, this RN assessed a zulma sized amount of sanguinous drainage on patient's abd pad located over the surgical site. Refer to flowsheets regarding patient'soutput and ambulation toleration. After this RN assisted patient back to bed after the patient voided, this RN observed a moderate amount of sanguineous dressing on the patient's abd pad. This RN applied zechariah wrap compression dressing at this time and informed the patient that this RN will continue to monitor the patient's incisional area for drainage. No other change in pt condition since the last nursing assessment unless noted in the flowsheets. Patient denies needs. Call light and bedside table within reach. * Nursing Notes - Denise Treviño RN - 05/08/2023 10:38 PM EDT This RN assisted patient in ambulating to the bathroom x1 assist /c gait belt and walker at this time, refer to flowsheets. When this RN assisted patient back to bed after voiding, This RN observed new drainage on abd pad at surgical site. This RN changed the soiled abd pad at this time. Patient's incision closed with sutures and dermabond, well approximated, no s/s infection and minimal swelling at the site, no active bleeding observed by this RN. Moderate amount of sanguineus drainage on abd pad. No odor. New abd pad placed over patient's incision and secured with holly hose per surgeon's orders. Foot pumps placed on back on patient. Bed alarm set. Patient denies further needs. Call light and bedside table within reach. * Nursing Notes - Keira Qiu RN - 05/08/2023 3:00 PM EDT Assessment is complete and remains unchanged from previous at this time with any exceptions noted in the flowsheet. Patient denies further needs and is left with call light and personals in reach. * Nursing Notes - Keira Qiu RN - 05/08/2023 10:51 AM EDT Patient arrives back to room 3752 at this time. Report received. Dressing to right knee dry and intact, onq unclamped at 2ml/hr. Hemovac with small amount of sanguinous drainage. Postop vitals started, foot pumps in place, tele applied, ice water and ice chips provided. Assessment unchanged from previous otherwise. He denies both pain and further needs and is left with call light and personals inreach, family at bedside. * Brief Op Note - PRINCE Yo - 05/08/2023 10:19 AM EDT POST OPERATIVE/PROCEDURE NOTE Seth Lackey Arabella 67 y.o. male [id number] SURGEON Surgeon(s) and Role: * Lazarus Coronado MD - Primary MANAGER OF PMO PRINCE Yo ANESTHESIOLOGIST TRANSMITTER ENGINEER: Boy Vidal APRN-TRANSMITTER ENGINEER; Cindy Dietz APRN-LENARD SURGICAL STAFF Emt Dispatcher: Shelley Brown RN; Debi Wiggins RN Nurse Practitioner: Mone Watson APRN-CABRERA Scrub Person: Sarita Lizama RN Harbor Engineer: Mahesh Armstrong LPN PROCEDURE PERFORMED Procedure(s) (LRB): ARTHROPLASTY KNEE TOTAL (Right) r knee periarticular injection r adductor canal catheter placment PRIMARY CLOSURE yes ANESTHESIA (type of) General ESTIMATED BLOOD LOSS 25 DRAINS Med hv BLOOD PRODUCTS None PRE OPERATIVE DIAGNOSIS Primary osteoarthritis of right knee [M17.11] POST OPERATIVE DIAGNOSIS Primary osteoarthritis of right knee [M17.11] FINDINGS Severe oa knee CONDITION OF PATIENT Stable COMPLICATION No complications GRAFTS AND/OR IMPLANTS Implant Name Type Inv. Item Serial No. Financial Center Manager Lot No. LRB No. Used Action PALACOS R 1 X 40 US - [id number] PALACOS R 1 X 40 US [id number] Right 2 Implanted PATELLA - KNEE - [id number] PATELLA - KNEE [id number] Right 1 Implanted FEMUR - KNEE - [id number] FEMUR - KNEE [id number] Right 1 Implanted Attune Knee System Tibial Base Fixed Bearing DEPUY [id number] Right 1 Implanted INSERT - KNEE - [id number] INSERT - KNEE [id number] Right 1 Implanted SPECIMENS ID Type Source Tests Collected by Time Destination 1 : Bone RIght Knee Permanent TISSUE SURGICAL PATHOLOGY REQUEST Lazarus Coronado MD 05/08/2023 0914 PRINCE Yo May 08, 2023 10:20 AM [facility]* Nursing Notes - Keira Qiu RN - 05/09/2023 3:41 PM EDT Discharge instructions and education reviewed with pt and his daughter, education provided for dx and new medications, printed education given, denies any questions. Hemovac care reviewed. HOLLY hose, ABDs, and ice packs provided. Meds to beds with integrity seal intact provided. [facility] History of Present illness Narrative* Asa Malik, SIOBHAN - 05/09/2023 12:08 PM EDT 05/09/23 1037 Time In/Out Time In 1037 Time Out 1117 Total Visit Time 40 minutes Subjective RN Approved Intervention as tolerated Existing Precautions/Restrictions fall Subjective Reports Pt sitting in bedside chair upon arrival this session. Pt agreeable for therapy and pt states pain at 5-6/10 Cognitive Status Examination Orientation Status (Cognition) oriented x 4 Level of Consciousness alert;cooperative Able to Follow Commands (Communication) WNL Personal Safety and Judgment intact General Pain Documentation (Adult, OB, Peds) Presence of Pain complains of pain/discomfort Pain Location knee, right Pain Management Interventions cold application;ambulated Select Pain Scale (8-9/10 wiht walking) Objective Therapeutic Interventions Pt sitting in bedside chair upon arrival this session. Pt agreeable for therapy and pt began with STS to FWW, CGA and then pt ambulated into hallway for approx 125ft with slow and steady gait using swing through pattern with no LOB noted. Pt then entered therapy room and pt transfered to sitting at edge of mat table for rest break. Pt then practiced modified car transferwith pt demonstrating good technique.Pt also practiced steps x4 stairs with L HR and SPC with CGA and min verbal cues for proper sequencing with no LOB noted. Pt then transfered to mat table and pt completed all protocol exercises including LAQs, ankle pumps, QS, GS, SAQs, and SLRs x10 reps each. Knee ext stretches with heel propped, calf stretches with belt, and heel slides x10 reps with belt. ROM measueing at 2-110 degrees this session. Pt then ambulated back to room for an additional 125ft with no LOB noted. Pt then transfered back to lying in bed with HOB elevated, ice pack applied to knee, and call light left within reach. Bed Mobility Skill: Supine to Sit, Rehab Eval Level of Adams: Supine/Sit supervision Transfer Skill: Sit To Stand, Rehab Eval Adams (Sit-Stand Transfers) contact guard Physical Assist/Nonphysical Assist: Sit/Stand 1 person assist Weight-Bearing Restrictions: Sit/Stand weight-bearing as tolerated Assistive Device For Transfer: Sit/Stand 2 wheeled walker Gait Skills, PT Eval Level of Adams: Gait contact guard Physical Assist/Nonphysical Assist: Gait 1 person assist Weight-Bearing Restrictions: Gait weight-bearing as tolerated Assistive Device For Transfer: Gait 2 wheeled walker Gait Distance (125ft x2) Gait Analysis, PT Eval Gait Pattern Used swing-through gait Gait Deviations Identified (Gait) decreased win;decreased gait speed;decreased step length;decreased stride length Impairments Contributing To Gait Deviations impaired balance;pain;decreased ROM;decreased strength Stair Negotiation Adams Level: Stair Negotiation contact guard assist Physical Assist: Stair Negotiation (1 person) Weight-Bearing Restrictions: Stair Negotiation weight-bearing as tolerated Assistive Device: Stair Negotiation left rail (ascending);straight cane Number of stairs 4 Stair Railings present on left side (ascending) Plan Plan for next visit Cont with protocol ex, ROM, and mobility Maintain frequency yes * Brittani Honeycutt RN - 05/09/2023 9:30 AM EDT Met with patient for follow up regarding discharge plan. Patient to go to outpatient therapy at [facility] tomorrow at 4:30 pm. Patient informed of post-op follow up call tomorrow. Patient verbalizes understanding, he states that he has been very happy with his care and is complementary of the staff. He denies any other needs at this time. * Mone Watson APRN-CABRERA - 05/09/2023 7:21 AM EDT Total Joint Progress Note P O DAY # 1 PROCEDURE: r tka SUBJECTIVE: No new symptoms or complaints PAIN RATIN/10 OBJECTIVE: Lab Results Component Value Date WBC 11.9 (H) 05/09/2023 HGB 9.0 (L) 05/09/2023 HGB 13.5 (L) 04/13/2023 HGB 10.1 (L) 10/11/2022 HCT 25.8 (L) 05/09/2023 HCT 40.8 (L) 04/13/2023 HCT 29.8 (L) 10/11/2022 PLATELET 149 05/09/2023 MCV 90.0 05/09/2023 Lab Results Component Value Date SODIUM 137 04/13/2023 POTASSIUM 4.2 04/13/2023 CHLORIDE 105 04/13/2023 CO2 24 04/13/2023 BUN 17 04/13/2023 BUN 16 10/11/2022 BUN 12 09/15/2022 CREATSERUM 0.67 04/13/2023 CREATSERUM 0.68 10/11/2022 CREATSERUM 0.60 (L) 09/15/2022 GLUCOSE 106 (H) 04/13/2023 Vital Signs: Vitals: 05/09/23 0352 BP: 103/80 Pulse: 74 Resp: 16 Temp: 97.2 F (36.2 C) SpO2: 98% Patient is alert and oriented times three. Abdomen: Soft, non-tender without organomegaly and bowel sounds are active Vascular: Dorsalis pedis/posterior tibial pulses RIGHT/LEFT/BILATERAL: Bilateral NORMAL / ABNORMAL (RESULT): Normal Neuro: Intact/deficit: intact to light touch Wound Appearance: DESCRIPTION; WOUND: incision Erythema: PRESENT OR ABSENT: absent Drainage none Dressing: Clean/dry/intact DVT Screening Exam: Calves soft/non-tender Holly hose: PRESENT OR ABSENT: present Foot pumps/ SCD's: PRESENT OR ABSENT: present Hemovac Drain Output: 110 mL/last shift Physical Therapy: ROM: 0-112 degrees Gait Distance: Up with PT Feet: ASSESSMENT: sp r tka pod 1 PLAN: 1. PT/OT 2. IV antibiotics 3. Incisional bleeding- additional dermabond applied. Incision clear otherwise. 4. DVT prophylaxis 5. Discharge planning DISCHARGE PLANNING: plans; post hospital: SEE SS NOTES * Shereen Nichole RRT - 05/08/2023 2:34 PM EDT Patient instructed on proper use of incentive spirometer. Patient achieves 2750 cc. Demonstrates proper use and technique. * Juliette Thomas OT - 05/08/2023 1:55 PM EDT 05/08/23 1245 Time In/Out Time In 1245 Time Out 1317 Total Visit Time 32 minutes Initial Evaluation/Screen Completed? yes General Information RN Approved Intervention as tolerated Admitting Diagnosis osteoarthritis of knee Surgical Procedure right TKA with on-Q and hemovac Past Surgical History Past Surgical History: Procedure Laterality Date ARTHROPLASTY HIP TOTAL ANTERIOR APPROACH Left 10/10/2022 Laterality: Left; Surgeon: Lazarus Coronado MD; Location: [facility] OR BACK SURGERY 2015 x2 NECK SURGERY 2015 x2 HEART CATHETERIZATION 2007 stent x1 COLONOSCOPY DIAGNOSTIC EAR SURGERY Left titanium piece placed OTHER SURGICAL prostate biopsy Past Medical History 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 CYNTHIA (obstructive sleep apnea) Sciatica, right side Existing Precautions/Restrictions fall Previous Level of Function Bed Mobility/Transfers independent Bathing independent Upper Body Dressing independent Lower Body Dressing independent Grooming independent Toileting independent Eating independent Home Management Skills independent General Pain Documentation (Adult, OB, Peds) Presence of Pain complains of pain/discomfort Pain Location knee, left Pain Management Interventions cold application Select Pain Scale (7-8/10) Home Setting Residence House Lives With spouse First floor setup bedroom;tub shower Number of Stairs to Enter Home 4 Number of Stairs Within Home 0 Equipment Available straight cane;wheeled walker;shower chair;elevated toilet seat;sock-aid;automated cutting machine operator;long-handled shoe horn;dressing stick;long handle sponge Cognitive Status Examination Orientation Status (Cognition) oriented x 4 Level of Consciousness alert Able to Follow Commands (Communication) WFL Personal Safety and Judgment intact Sensory Examination Sensory Examination WFL Range of Motion (ROM) Range of Motion Examination bilateral upper extremity ROM was WFL Manual Muscle Testing (MMT) Dominant Hand right Bed Mobility Skill: Supine to Sit, Rehab Eval Level of Adams: Supine/Sit stand-by assist Physical Assist/Nonphysical Assist: Supine/Sit 1 person assist Transfer Skill: Sit to Stand, Rehab Eval Level of Adams: Sit/Stand contact guard Physical Assist/Nonphysical Assist: Sit/Stand 1 person assist Weight-Bearing Restrictions: Sit/Stand weight-bearing as tolerated Assistive Device for Transfer: Sit/Stand wheeled walker Upper Body Dressing Level of Adams independent Physical Assist/Nonphysical Assist set-up required Lower Body Dressing Level of Adams maximum assist (25% patients effort) Physical Assist/Nonphysical Assist 1 person assist Toileting Level of Adams contact guard Physical Assist/Nonphysical Assist 1 person assist Grooming Adams Level (Grooming) wash face, hands;contact guard assist Physical Assist/Nonphysical Assist 1 person assist General Therapy Interventions Planned Therapy Interventions (OT Eval) ADL retraining;balance training;transfer training Clinical Impression Co-evaluation/co-treatment performed? Yes, combination of simultaneous billable and individual billable skilled care Patient Instruction Pt instructed on LB dressing techniques donning shorts CGA in sitting and standing with instruction on on-Q and hemovac management. Pt instructed on walker placement during toileting tasks in standing and walker placement for standing at sink hand hygiene Rehab Potential (OT Eval) good, to achieve stated therapy goals Therapy Frequency 7 times a week Today's Treatment Included Pt demonstrates good safety awareness during functional mobility and transfer training following initial instruction, patient had several occasions had right knee buckling,provide additional education on safety for mobility. Pt spouse can assist as needed. Pt states he had difficulty prior to surgery with LB dressing tasks, patient has had several falls prior to surgery Continue care plan yes Goals Goals For Discharge Pt will return home Discussed risk / benefits with patient;patient's family Therapist Recommendations At Discharge Recommendations OT Services not recommended at Discharge Plan Plan for next session continue with bathing, dressing, bathroom transfers and hygiene training utilizing AE as needed Therapist Information License # [id number] 1. Pt will complete LB dressing MOD I 2. Pt will complete sponge bathing MOD I 3. Pt will complete toileting MOD I 4. Pt will complete hygiene/grooming standing at sink independent 5. Pt will complete simulated tub/shower transfer SBA * Federico Muir, PT - 05/08/2023 1:15 PM EDT 05/08/23 1212 Time In/Out Time In 1212 Time Out 1254 Total Visit Time 42 minutes Total Treatment Time (skilled, billable minutes) 42 minutes PT Therapy Completed Yes Initial Evaluation/Screen Completed? 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 CYNTHIA (obstructive sleep apnea) Sciatica, right side Past Surgical History Past Surgical History: Procedure Laterality Date ARTHROPLASTY HIP TOTAL ANTERIOR APPROACH Left 10/10/2022 Laterality: Left; Surgeon: Lazarus Coronado MD; Location: [facility] OR BACK SURGERY 2016 x2 NECK SURGERY 2016 x2 HEART CATHETERIZATION 2007 stent x1 COLONOSCOPY DIAGNOSTIC EAR SURGERY Left titanium piece placed OTHER SURGICAL prostate biopsy Existing Precautions/Restrictions fall;weight bearing (WBAT RLE) Right Lower Extremity weight bearing as tolerated Home Setting Residence House (1-story house) Lives With spouse First floor setup bedroom;walk-in shower Number of stairs to enter home 4 Number of stairs in home 13 (to basement, does not access basement) Stair Railings at Home entry - present on left side (ascending);interior - with rail Mobility Equipment Available none used;straight cane;2 wheeled walker Home Environment Details Patient notes living independently prior to admission, drives, enjoys hunting/fishing. Patient's family notes probably should have used something when walking outside the home due to history of multiple falls. Previous Level of Function Ambulation Skills independent Assistive Device none used Level of Ambulation community General Pain Documentation (Adult, OB, Peds) Presence of Pain complains of pain/discomfort Pain Location knee, left Pain Management Interventions ambulated;cold application;elevation;positioning;prescribed exercises Select Pain Scale (NPRS: 6/10 at rest, 7-8/10 with activity/walking) Cognitive Status Examination Orientation Status (Cognition) oriented x 4 Level of Consciousness alert;cooperative Able to Follow Commands (Communication) WFL Personal Safety and Judgment intact Vision corrective lenses needed (reading glasses only) Hearing no gross deficit noted Speech no gross deficit noted Range of Motion (ROM) Range of Motion Examination deficits as listed below;LLE ROM was WFL (right knee: 0-112 deg; hip/ankle WFL) Manual Muscle Testing (MMT) Manual Muscle Testing Results LLE MMT was WFL;deficits as listed below (Right hip flex: 4-/5, knee ext: 3+/5, knee flex: 4-/5, ankle DF: 4/5) Muscle Tone Assessment LLE Muscle Tone Assessment WNL RLE Muscle Tone Assessment WNL Skin Integrity Skin Integrity Description Surgical Incision Edema Edema present Location Right knee joint Bed Mobility Skill: Supine to Sit, Rehab Eval Level of Adams: Supine/Sit stand-by assist Physical Assist/Nonphysical Assist: Supine/Sit 1 person assist;verbal cues Transfer Skill: Sit To Stand, Rehab Eval Adams (Sit-Stand Transfers) contact guard Physical Assist/Nonphysical Assist: Sit/Stand 1 person assist;verbal cues Weight-Bearing Restrictions: Sit/Stand weight-bearing as tolerated Assistive Device For Transfer: Sit/Stand 2 wheeled walker Gait Skills, PT Eval Level of Adams: Gait contact guard Physical Assist/Nonphysical Assist: Gait 1 person assist;verbal cues Weight-Bearing Restrictions: Gait weight-bearing as tolerated Assistive Device For Transfer: Gait 2 wheeled walker Gait Distance 50 feet Gait Analysis, PT Eval Gait Pattern Used swing-through gait Gait Deviations Identified (Gait) antalgic;right;decreased win;decreased gait speed;decreased step length;decreased stride length;wide base of support;other (see comments) (excessive right hip IR causing pigeon-toed foot positioning) Impairments Contributing To Gait Deviations impaired balance;decreased flexibility;pain;decreased ROM;decreased strength;impaired motor control;impaired postural control Stair Negotiation Adams Level: Stair Negotiation not tested Sensory Examination Sensory Examination WFL Sensory Tests light touch sensation Plan of Care Interventions Planned Therapy Interventions balance training;bed mobility training;edema control;endurance;functional activity tolerance;gait training;joint mobilization;motor coordination training;neuromuscular re-education;postural re- education;ROM;strengthening;stretching;transfer training Additional Comments Patient completes HEP per protocol in bed prior to initiating walking/restroom:ankle pumps, quad/glute sets, heel slides, SAQ, LAQ, SLR flexion, calf/hamstring stretches, and propped-heel knee extension stretch. Patient and family educated on HEP, edema control measures with good understanding stated. Patient returns to room and sits in chair with OT present in room for assessment. Assessment VTE Prevention/Management On - Compression stockings (graduated) Assessment Narrative Patient is s/p right TKA POD [address] Coronado, presents with increased pain, weakness of right knee, requires use of FWW and assistance x 1 person at all times when OOB to maintain safety with mobility. Further, the patient demonstrates decreased postural control of right knee,decreased right knee ROM, and cueing to maintain safe gait with FWW. Discharge Recommendations Patient will discharge home with family support with OP PT to follow in hometown area. Clinical Impression Co-evaluation/co-treatment performed? No simultaneous skilled care performed Criteria for Skilled Therapeutic Interventions Met (PT Eval) yes, treatment indicated Impairments Found (PT Eval) Strength;ROM (range of motion);Balance;Coordination;Pain;Posture;Transfers;Gait/Locomotion;Edema;Skin integrity;Motor control;Cognition/Arousal/Attention;Circulation/vascular;Aerobic capacity/endurance;Ventilation and respiration/gas exchange;Cranial and peripheral nerveintegrity;Neuromotor development and sensory integration Rehab Potential (PT Eval) good Therapy Frequency BID (twice a day) Anticipated Equipment Needs at Discharge (PT Eval) none Continue care plan yes Today's Treatment Included PT evaluation, ther ex's, HEP education, edema control measures Goals Goals For Discharge Patient will return home with family support and OP PT to follow Goals Goal 1 Patient will complete all transfers, bed mobility Supervision with FWW to improve safety with mobility Goal 2 Patient will ambulate x 150 ft SBA with FWW and proper step-through pattern to improve safety, endurance of gait to access the home Goal 3 Patient will ascend/descend x 4 steps with single railing on left (ascending) SBA +/- LRAD to safely enter/exit the home Goal 4 Patient will increase right knee ROM to 0-117 deg to improve ease of functional mobility Goal 5 Patient will complete HEP exercises independently or with occasional assistance per family to maximize right knee ROM, strength, transfers, gait training Therapist Recommendations At Discharge Recommendations PT Services recommended at Discharge Plan Plan for next session PT will continue to address overall mobility, safety in all functional mobility, improve ROM/strength, decrease fall risk to safely return home with OP PT to follow Therapist Information License # [id number] * Brittani Honeycutt RN - 05/08/2023 12:01 PM EDT Patient was assessed in [facility] [place] on 04/13/23. Met with patient, spouse and daughter for follow up after surgery to discuss discharge plan. Patient plans to return home with spouse and would to like go to outpatient therapy at [facility]. Patient has a wheeled walker and denies any equipmentneeds at this time. Nursing reports that the incision has been closed with dermabond with hemovac in place, will request a 3 week follow up appointment. Patient denies any other questions or needs atthis time. Referral information faxed to [facility] OP Therapy, appointment scheduled for 05/10/23 @ 4:30 pm. Follow up appointment scheduled for @ 11:40 am. * Gloria Carlson RD - 05/08/2023 11:07 AM EDT NUTRITION ASSESSMENT: POST-OP ORTHOPEDIC Nutrition Assessment Will order Ensure Max @ 3:00 pm Pt would benefit from the additional kcal, protein, vitamins, and minerals to help meet increased nutrition needs based on recent orthopedic surgery with Dr. Coronado. Recommend to continue supplementation at home for 2-4 weeks after surgery. Anthropometrics: Ht Readings from Last 1 Encounters: 05/08/23 1.727 m (5' 8 ) Wt Readings from Last 5 Encounters: 05/08/23 88.4 kg (194 lb 14.4 oz) 04/04/23 89.4 kg (197 lb) 03/23/23 89.7 kg (197 lb 12.8 oz) 11/03/22 83.5 kg (184 lb) 10/10/22 83.9 kg (185 lb) Max body weight: 68.4 kg (150 lb 12.7 oz) Adjusted ideal body weight: 76.4 kg (168 lb 7 oz) Body mass index is 29.63 kg/m . Nutrition Intake: Current Diet Orders Procedures DIET HEART HEALTHY - 4 GM SODIUM Oral Supplement Ensure Max 3:00 vary flavors Standing Status: Standing Number of Occurrences: 1 Order Specific Question: Additional Modifier: Answer: Oral Supplement No Known Allergies Labs: Lab Results Component Value Date GLUCOSE 106 (H) 04/13/2023 GLUCOSE 153 (H) 10/11/2022 GLUCOSE 127 (H) 09/15/2022 HGBA1C 5.3 04/13/2023 SODIUM 137 04/13/2023 POTASSIUM 4.2 04/13/2023 CALCIUM 9.8 04/13/2023 ALBUMIN 4.4 04/13/2023 TP 7.2 04/13/2023 BUN 17 04/13/2023 CREATSERUM 0.67 04/13/2023 AST 29 04/13/2023 ALT 41 04/13/2023 HGB 13.5 (L) 04/13/2023 HCT 40.8 (L) 04/13/2023 WBC 5.9 04/13/2023 RBC 4.50 04/13/2023 PMH & PSH: 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 Interventions Order Ensure Max @ 3:00 pm Diet order: Heart Healthy Monitoring & Evaluation PO intake, labs, weight, ONS intake, and medical condition DIOMEDES Thacker Registered Dietitian, Licensed Dietitian 05/08/23 * PRINCE Yo - 05/08/2023 10:20 AM EDT THIS PATIENT HAS HAD ORTHOPEDIC SURGERY AND IS EXPECTED TO HAVE PAIN REQUIRING NARCOTICS FOR >7 DAYS AND MAY NEED UP TO 12 tabs of oxycodone PER DAY AND THEREFORE 30tabs ARE BEING DISPENSED IN ACCORDANCE WITH POC DISCUSSED WITH DR CORONADO. * Brittani Honeycutt RN - 05/08/2023 8:32 AM EDT Spouse updates that outpatient therapy appointment will need to be changed to an afternoon appointment d/t transportation issues on Monday. [facility] contacted and appointment time changed. Will fax updated information to OP rehab after patient has had surgery. Will continue to follow up with patient and family for discharge needs. * Jazmyne Cardona LPN - 04/13/2023 11:54 AM EDT 04/13/23 1152 Referral Information Arrived From home or self-care Information Source Information Source patient Contact Information [employer] Name Brittani Honeycutt RN Case Manager's Living Environment Lives With spouse Living Arrangements house (1 story home with 3 steps to enter) Provides Primary Care For no one Primary Care Provided By self Support System Immediate family Able to Return to Prior Arrangements yes Functional Status Patient's Functional Status Prior To This Admission? Independent Initial Discharge Planning Anticipated discharge disposition Home Anticipated Services at Discharge Physical Therapy CM met with patient and spouse this date to discuss post-surgical discharge plans. Patient states that would like to return home with spouse and have OP therapy at [facility], phone number is [phone], patient prefers late morning appointment. Patient has a FW wheeled walker, in addition to raised toilet seat, railing and shower chair. Patient denies any other questions or needs at thistime. CM to continue to follow and assist with discharge plans. [facility]* Nursing Notes - Keira Qiu RN - 05/09/2023 11:57 AM EDT Assessment is complete and remains unchanged from previous at this time with any exceptions noted in the flowsheet. Patient denies further needs and is left with call light and personals in reach. Karisma Kidz [id number] Nurse Note* Nursing Notes - Lily Gill RN - 05/09/2023 11:42 AM EDT Patient is admitted to Med Surg floor Karisma Kidz [id number] Nurse Note* Nursing Notes - Galilea Rodrigues RN - 05/09/2023 10:42 AM EDT Medhat was just given bedside teaching on his On Q Ball. The methods used for this teaching included discussion, hands on demonstrations, and material handouts. His teaching begin with the purpose of the On Q Ball and it's use. All parts of the Ball were discussed and the working of the dial. He was able to adjust his dial and flow rate. Medhat's rate is currently set at 2ml/hr and he is aware he can now increase his rate according to his level of pain. At this moment Medhat rates his pain level a 6 on a 1 to 10 scale. He understands his pain management once home should begin with his scheduled medication, his ice wrap, movement, adjusting his On Q Ball, and finally his prescribed narcotic pain medication. I then discussed in details when to remove the inserted catheter and how to remove it. Medhat is aware the On Q Ball is totally disposable. Signs and symptoms that need medical attention were discussed as well. General care and showering were addressed. Medhat stated he had a good understanding ofthe teaching provided. He agrees with the discharge Plan of Care for using the On Q Ball as his first line for pain management on discharge. The plan is for Medhat to be discharged home later today. [facility]06-20-2023 Nurse Note* Nursing Notes - Diamond Alves RN - 05/09/2023 8:31 AM EDT Oxycodone 10 mg verified by this RN and administered to patient by Keira GUTIERREZ, unable to scan in [facility] due to connectivity issues. [facility]06-20-2023 Surgery Postoperative evaluation and management note* Op Note - Lazarus Coronado MD - 05/09/2023 8:25 AM EDT DATE OF PROCEDURE: May 08, 2023 ATTENDING PHYSICIAN: Lazarus Coronado M.D. MANAGER OF PMO: Mone Watson CNP PREOPERATIVE DIAGNOSIS: Severe right knee osteoarthritis. POSTOPERATIVE DIAGNOSIS: Severe right knee osteoarthritis. PROCEDURES PERFORMED: 1. Right total knee arthroplasty. 2. Periarticular injection, right knee. 3. Placement of continuous catheter, adductor canal right knee. ANESTHESIA: General. ANESTHESIOLOGIST: Per record. ESTIMATED BLOOD LOSS: 25 mL. COMPLICATIONS: None. INTRAVENOUS FLUIDS: Adequate. SPECIMENS: Bone. INSTRUMENTATION USED: DePuy Attune size 7 right CR cemented femoral component with a size 5 tibial component, a size 8 CR polyethylene, and a 41 mm all-poly patella. INDICATIONS: Seth is a 67-year-old male with a history of debilitating right knee pain and a diagnosis of osteoarthritis, who failed conservative management. Given the options of treatment, patientelected to proceed forward with operative intervention and, for that reason, was scheduled for the procedure for which the patient appears today. Upon arrival to the preoperative unit, the risks, benefits and alternatives were thoroughly explained, informed consent was verified, and the site was marked. After evaluation by Anesthesia and administration of preoperative antibiotics, patient was then brought to the operating room. DESCRIPTION OF THE PROCEDURE: Upon arrival to the operating room, patient was placed supine on the operating room table, and general anesthetic was induced. The right lower extremity was prepared forsurgery with the tourniquet, two leg holders and a bump. It was elevated, prepped, and draped in the standard sterile fashion. A proper timeout was performed. I began with elevation of the leg, and the tourniquet was increased to 250 mm/Hg. Total tourniquet time was 36 minutes. I then began with a midline incision and performed a medial parapatellar arthrotomy to the knee. In coming through the knee, I noted severe arthritis. A subperiosteal release was taken off the proximal medial tibial plateau. The fat pad was resected, the patella subluxed laterally, and the step drill was used to gain access to the intramedullary canal. I then set my distal femoral resection guide for 5 degrees, according to the preoperative plan, and performed the resection.The ACL was resected. The extramedullary alignment guide was assembled, and the tibial cut was referenced. Once done, the bony remnant was removed. The knee was then brought out into extension and assessed with a gap block. There was full extension and, with appropriate soft tissue balancing, slight laxity in the lateral compartment with neutral recreation of the mechanical axis as evidenced by the drop martinez. I then turned my attention back to the distal femur. With the distal femur now re-exposed, I set rotation using a 3-degree external rotation guide placed across the posterior condyles. I referenced this against the flexion gap, Zapata's line, and the epicondylar axis as well. I then used an anterior referencing stylus and sized it to a size 7. At this point then, the 4:1 cutting block was pinned into place, and all four cuts were performed. The flexion space was opened up with the lamina engineer conductor, and the medial and lateral menisci were then removed. The posterior knee was inspected for loose bodies and then injected with the periarticular injection. I then subluxed forward the tibia and sized it to a size 5. I rotated it to the medial one-third ofthe tibial tubercle and ensured no overhang. I then used the tower, tibial drill and keel punch, and then placed the femoral trial with a 8 mm polyethylene. Overall, I had improved the preoperative range of motion, which was from approximately 7 to 110 degrees to approximately 0 to 120 degrees posto perative with a size 8 mm polyethylene. I had excellent balance of the knee with slight laxity in the lateral compartment throughout the arc of motion and anatomic tracking at the point hope ira patella. Thus, the patella itself was flipped over and measured to be approximately 23 mm pre-resection and composite after measured resection and resurfacing. A lateral facetectomy and neurectomy was performed. Patellar tracking remained unchanged, no subluxation or tilt. The trial components were then removed. The knee was thoroughly irrigated, cleaned and dried, and then the final implants were cemented into place. The knee was held with an axial load with a size 8 polyethylene until complete polymerization had occurred. Once done, I re-evaluated the knee. Performance was unchanged from the trials withfull range of motion, anatomic tracking of the patella, and a stable balanced ligamentous exam. Thetrial polyethylene was removed. The knee was again inspected for loose bodies. It was thoroughly irrigated. The final polyethylene was impacted into place, locked and verified to be secure. The periarticular injection was administered and the Betadine soak saline solution was used. Following this, a thorough pulsatile lavage irrigation was performed. The tourniquet was let down. Hemostasis was obtained 1 gram of vancomycin was placed deep to the implant and I turned my attention toward wound closure. The wound was closed with a #1 Vicryl around the pole of the patella and over sewn with a #2 Quill for the arthrotomy. Next, 0-Quill was used for the subcutaneous and subcuticular layer and for the skin, Dermabond. The extremity was cleansed. A sterile dressing applied. A HOLLY hose was applied over this with foot pumps. The patient was then awakened from anesthetic and taken to the postoperative care unit in stable condition. Prior to wound closure, I placed the On-Q catheter into the knee. I lifted up the VMO. I bluntly dissected up to the inferior border of the adductor canal. I passed the catheter; it flushed appropriately. Wound closure commenced as written above. POSTOPERATIVE PLAN OF CARE: 1. Weight bearing as tolerated, with physical therapy to start today. 2. IV antibiotics for 24 hours postop. 3. DVT prophylaxis, both mechanical and chemical. 4. Follow up in the office in 2-3 weeks. ATTENDING/ASSISTING PARTICIPATION: This operation could not have been safely performed (without compromising the technical results or length of the procedure) without the assistance of a skilled anesthesiology physician assistant. A anesthesiology physician assistant was medically necessary for positioning, retraction and instrume ntation. [employer] Work Phone: [phone] 182-120306-20-2023 Hospital course Narrative* Shahzad Whiting MD - 05/09/2023 7:27 AM EDT Images from the original note were not included. Discharge Summary Name: Seth Bell Age: 67 y.o. Birthday: 1955 Admit Date: 05/08/2023 6:42 AM Discharge Date: 05/09/23 Discharge Time: midday Discharge Unit: Med/Surg Admission Information Admitting Physician: Lazarus Coronado MD Discharge Information Discharge Physician: Shahzad Whiting MD Problem List Active Hospital Problems Diagnosis Osteoarthritis of right knee Resolved Hospital Problems No resolved problems to display. Brief Summary of Hospital Course for Discharge Summary: Medical Consultation/Discharge Patient is a 67 y/o male s/p TKA. He is doing well postoperatively. Pain is adequately controlled. Has ambulated and voided. Denies CP, palpitations, cough, sputum, SOB, nausea, vtg, edema. Therapy going well. Known coronary artery disease. he is feeling well. There are no complaints relative to his heart disease. Patient is compliant with medications. he denies any side effects from medications. he denies chest pain, SOB, LAY, palpitations, orthopnea, PND, edema, headache, focal neurologic complaints, claudication. Known high blood pressure. he is feeling well. There are no complaints relative to his blood pressure. Ambulatory blood pressures are normal. Patient is compliant with medications. he denies any side effects from medications. he denies chest pain, SOB, LAY, palpitations, orthopnea, PND, edema, headache, focal neurologic complaints, claudication. Known hyperlipidemia. he is feeling well. There are no complaints relative to his lipids. Patient is compliant with medications. he denies any side effects from medications. he denies chest pain, SOB, LAY, palpitations, orthopnea, PND, edema, headache, focal neurologic complaints, claudication. Known GERD/gastritis. Symptoms are under good control. There are no side effects noted from the medication. he denies water brash, bitter or metallic taste, dysphagia, nausea, vomiting, hematemesis, melena, or black/tarry stools. Known depression. Mood stable. Known BPH. Voiding. Known CYNTHIA - stable on CPAP. General: No fever, chills, weight loss. HEENT: No sinus pain, ear pain, sore throat. Neck: No LAD. Lungs: No cough, sputum, pleuritic pain, hemoptysis, SOB. CV: No chest pain, palpitation, orthopnea, PND, edema. GI: No abd pain, nausea, vomiting, diarrhea, constipation, melena, hematochezia. : No dysuria, frequency, hematuria. Skin: No rash or lesion. Neuro: No mental status changes, headache, focal neurologic complaints. Objective: Blood pressure 103/80, pulse 74, temperature 97.2 F (36.2 C), temperature source Temporal, resp. rate 16, height 1.727 m (5' 8 ), weight 88.4 kg (194 lb 14.4 oz), SpO2 98 %. Results for orders placed or performed during the hospital encounter of 05/08/23 SCREEN: MRSA ONLY, NARES (ISOLATION SCREEN) Specimen: NARES; E-Swab Result Value Ref Range SCREEN: MRSA NEGATIVE NEGATIVE STAPHYOCOCCUS AUREUS BY PCR NEGATIVE NEGATIVE CBC, EDIF, PLATELET Result Value Ref Range WBC (WHITE BLOOD COUNT) 11.9 (H) 3.6 - 11.0 10*3/uL RBC 2.87 (L) 4.0 - 6.1 10*6/uL HEMOGLOBIN (HGB) 9.0 (L) 14.0 - 18.0 G/DL HEMATOCRIT (HCT) 25.8 (L) 42.0 - 52.0 % MEAN CELL VOLUME 90.0 80.0 - 100.0 FL Mean Cell HGB 31.3 26.0 - 35.0 PG MEAN CELL HGB CONCENTRATION 34.8 27.0 - 37.0 G/DL RBC DISTRIBUTION 13.8 11.5 - 14.5 % PLATELET COUNT 149 130 - 400 10*3/uL MEAN PLATELET VOLUME 9.1 7.4 - 11.0 FL DIFFERENTIAL TYPE AUTO DIFF % NEUTROPHILS 85.0 (H) 37.0 - 75.0 % LYMPHOCYTE 6.7 (L) 20.0 - 55.0 % MONOCYTE % 8.3 0.0 - 10.0 % EOSINOPHIL % 0.0 0.0 - 11.0 % BASOPHIL % 0.0 0.0 - 2.0 % Absolute Neutrophil Count 10.1 (H) 1.4 - 6.5 10*3/uL LYMPHOCYTES, ABSOLUTE 0.8 (L) 1.2 - 3.4 10*3/uL MONOCYTES, ABSOLUTE 1.0 (H) 0.0 - 0.7 10*3/uL ABSOLUTE EOSINOPHIL COUNT 0.0 0.0 - 0.7 10*3/uL ABSOLUTE BASOPHIL COUNT 0.0 0.0 - 0.2 10*3/uL HEENT: NC/AT, PERRLA, EOMI, fundi benign, external ears normal, OP normal. Neck: No LAD/thyromegaly. No JVD/bruit. Lungs: Clear to auscultation bilaterally. No wheezes, rales, ronchi. Heart: RRR. No S3/S4. Abdomen: Soft, NT/ND, normal bowel sounds, no HSM, no bruits. Extremities: No clubbing, cyanosis, edema. Normal pulses. Neurologic: CN II-XII intact. Strength/DTR's/sensation symmetric. Cerebellar function normal. Skin: No rash or suspicious lesions. Musculoskeletal: No edema, redness, warmth, deformities. Psychiatric: Alert and oriented. Affect and mood normal. Assessment and Plan: POD #1 TKA - ok to discharge if ok with ortho. CAD - continue home Rx. No symptoms here and tele normal. HTN - continue home Rx, monitor BP's. HLD - continue home Rx. GERD - continue PPI at home. Depression - continue home Rx. BPH - continue home Rx. Voiding well. CYNTHIA - continue CPAP at home. Anemia - expected drop in H&H. Follow up as outpt. IFG - carb controlled diet at home. 35 minutes total time. Shahzad Whiting MD 05/09/2023 Brief Summary of Consults for Discharge Summary: Brief Summary of Procedures and Imaging for Discharge Summary: See operative note. Summary of last selected lab results and date obtained: Lab Results Component Value Date WBC 11.9 (H) 05/09/2023 HGB 9.0 (L) 05/09/2023 HCT 25.8 (L) 05/09/2023 PLATELET 149 05/09/2023 MCV 90.0 05/09/2023 Lab Results Component Value Date SODIUM 137 04/13/2023 POTASSIUM 4.2 04/13/2023 CHLORIDE 105 04/13/2023 CO2 24 04/13/2023 BUN 17 04/13/2023 CREATSERUM 0.67 04/13/2023 GLUCOSE 106 (H) 04/13/2023 Lab Results Component Value Date ALT 41 04/13/2023 AST 29 04/13/2023 ALKPHOS 52 04/13/2023 BILITOTAL 1.6 (H) 04/13/2023 Brief Summary of Labs for Discharge Summary: Discharge Orders AMB REFERRAL TO PHYSICAL THERAPY Current Outpatient Meds: Medication List for when you go home START taking these medications naloxone 4 MG/0.1ML 1 spray by Nasal route once for 1 dose. [place] into the nose as directed. Call 911. If no response in 2 minutes use a new nasal spray in other nostril. Repeat until help arrives. Commonly known as: NARCAN CHANGE how you take these medications * Aspirin [address] tablet At bedtime. What changed: Another medication with the same name was changed. Make sure you understand how and when to take each. * Aspirin [address] tablet Take 1 tab twice a day for 30 days. This medication is for blood clot prevention. What changed: additional instructions Notes to patient: Take next dose around 9PM. omeprazole [address] capsule Take 1 capsule by mouth daily. Commonly known as: PRILOSEC What changed: The strength you have reported taking of this medication has changed See the new instructions. Notes to patient: Take next dose tomorrow morning. traZODone 50 MG TABS Take 1 tablet by mouth at bedtime. Commonly known as: DESYREL What changed: Another medication with the same name was removed. Continue taking this medication, and follow the directions you see here. * The same medication is listed twice. Please discuss with your provider. CONTINUE taking these medications Acetaminophen 325 MG tablet Take 2 tablets by mouth every 4 hours as needed for Mild Pain. Commonly known as: TYLENOL amlodipine-benazepril 5-40 MG CAPS PM Commonly known as: LOTREL Notes to patient: Take next dose tonight. atorvastatin 80 MG TABS Take 1 tablet by mouth every evening. Commonly known as: LIPITOR Notes to patient: Take next dose tonight. buPROPion HCl ER (XL) 450 MG tab XL Take 300 mg by mouth daily. Commonly known as: WELLBUTRIN-XL Celecoxib 200 MG CAPS Take 1 capsule by mouth 2 times daily. Commonly known as: CELEBREX Notes to patient: Take next dose tomorrow morning. Cyclobenzaprine 10 MG TABS Take 1 tablet by mouth at bedtime. Commonly known as: FLEXERIL Notes to patient: Take next dose tonight. Docusate 100 MG CAPS Take 1 capsule by mouth 2 times daily. Commonly known as: COLACE Notes to patient: Take next dose this evening. Finasteride 5 MG TABS Commonly known as: PROSCAR Notes to patient: Take next dose tonight. medicinal cannabis (MEDICINAL MARIJUANA) by Unknown route. 2 puffs once daily Commonly known as: MEDICINAL MARIJUANA Metoprolol succinate 50 MG tablet XL Take 1 tablet by mouth daily. pm Commonly known as: TOPROL-XL Notes to patient: Take next dose tonight. oxyCODONE 5 MG TABS Take 1-2 tabs po q 4-6 hours prn pain. Wean as tolerated. Commonly known as: ROXICODONE For diagnoses: Acute postoperative pain of left knee Raised Toilet Seat MISC 1 Units by Unknown route daily. For diagnoses: Aftercare following left hip joint replacement surgery Tamsulosin HCl 0.4 MG CAPS tamsulosin 0.4 mg capsule TAKE 1 CAPSULE BY MOUTH EVERY DAY Commonly known as: FLOMAX Notes to patient: Take next dose tomorrow morning. therapeutic multivitamin-minerals TABS Take 1 tablet by mouth at bedtime. Notes to patient: Take next dose at bedtime. Voltaren 1 % GEL gel Apply 2 g topically as needed. Generic drug: Diclofenac sodium STOP taking these medications chlorhexidine 4 % LIQD Commonly known as: HIBICLENS Mupirocin 2 % ointment Commonly known as: BACTROBAN oxyCODONE-acetaminophen 5-325 MG per tablet Commonly known as: PERCOCET Follow-up: [facility] OP Therapy ext: [phone] Follow up on 05/10/2023 Outpatient therapy appointment scheduled for Monday at 4:30 pm, please arrive at 4:15 pm for theregistration process. Bring insurance cards and photo ID. Upcoming Appointments (up to five)-Some appointments for [facility] outpatient clinics or diagnostic testing locations are not displayed below Provider Department Dept Phone 06/01/2023 11:40 AM [facility] [phone] [facility]* Nursing Notes - Denise Treviño RN - 05/09/2023 12:54 AM EDT This RN assisted patient to bathroom at this time, x1 assist /c walker and gait belt. Before assisting the patient in ambulating to the bathroom, this RN assessed a zulma sized amount of sanguinous drainage on patient's abd pad located over the surgical site. Refer to flowsheets regarding patient'soutput and ambulation toleration. After this RN assisted patient back to bed after the patient voided, this RN observed a moderate amount of sanguineous dressing on the patient's abd pad. This RN applied zechariah wrap compression dressing at this time and informed the patient that this RN will continue to monitor the patient's incisional area for drainage. No other change in pt condition since the last nursing assessment unless noted in the flowsheets. Patient denies needs. Call light and bedside table within reach. [facility]-19[facility] Nurse Note* Nursing Notes - Denise Treviño RN - 05/08/2023 10:38 PM EDT This RN assisted patient in ambulating to the bathroom x1 assist /c gait belt and walker at this time, refer to flowsheets. When this RN assisted patient back to bed after voiding, This RN observed new drainage on abd pad at surgical site. This RN changed the soiled abd pad at this time. Patient's incision closed with sutures and dermabond, well approximated, no s/s infection and minimal swellingat the site, no active bleeding observed by this RN. Moderate amount of sanguineus drainage on abd pad. No odor. New abd pad placed over patient's incision and secured with holly hose per surgeon's orders. Foot pumps placed on back on patient. Bed alarm set. Patient denies further needs. Call light and bedside table within reach. [facility]06-19-[facility] Consult note* Shahzad Whiting MD - 05/08/2023 6:17 PM EDTAssociated Order(s): IP CONSULT TO GENERAL MEDICINE Medical Consultation Patient is a 67 y/o male s/p TKA. He was at his baseline state of health prior to surgery. He was medically optimized by his primary care provider. Testing notable for a Hgb of 13.5, BS 106, HgbA1C 5.3, MSSA s/p treatment. He is doing well postoperatively. Pain is adequately controlled. Has ambulated and voided. Denies CP, palpitations, cough, sputum, SOB, nausea, vtg, edema. Known coronary artery disease. he is feeling well. There are no complaints relative to his heart disease. Patient is compliant with medications. he denies any side effects from medications. he denies chest pain, SOB, LAY, palpitations, orthopnea, PND, edema, headache, focal neurologic complaints, claudication. Known high blood pressure. he is feeling well. There are no complaints relative to his blood pressure. Ambulatory blood pressures are normal. Patient is compliant with medications. he denies any side effects from medications. he denies chest pain, SOB, LAY, palpitations, orthopnea, PND, edema, headache, focal neurologic complaints, claudication. Known hyperlipidemia. he is feeling well. There are no complaints relative to his lipids. Patient is compliant with medications. he denies any side effects from medications. he denies chest pain, SOB, LAY, palpitations, orthopnea, PND, edema, headache, focal neurologic complaints, claudication. Known GERD/gastritis. Symptoms are under good control. There are no side effects noted from the medication. he denies water brash, bitter or metallic taste, dysphagia, nausea, vomiting, hematemesis, melena, or black/tarry stools. Known depression. Mood stable. Known BPH. Voiding. Known CYNTHIA - stable on CPAP. General: No fever, chills, weight loss. HEENT: No sinus pain, ear pain, sore throat. Neck: No LAD. Lungs: No cough, sputum, pleuritic pain, hemoptysis, SOB. CV: No chest pain, palpitation, orthopnea, PND, edema. GI: No abd pain, nausea, vomiting, diarrhea, constipation, melena, hematochezia. : No dysuria, frequency, hematuria. Skin: No rash or lesion. Neuro: No mental status changes, headache, focal neurologic complaints. 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 OR BACK SURGERY 2015 x2 NECK SURGERY 2015 x2 HEART CATHETERIZATION 2007 stent x1 COLONOSCOPY DIAGNOSTIC EAR SURGERY Left titanium piece placed OTHER SURGICAL prostate biopsy Social History Socioeconomic History Marital status: Spouse name: Not on file Number of children: Not on file Years of education: Not on file Highest education level: Not on file Occupational History Not on file Tobacco Use Smoking status: Former Years: 25.00 Types: Cigarettes Quit date: 1988 Years since quittin.4 Smokeless tobacco: Never Vaping Use Vaping Use: Every day Substances: THC, CBD Devices: Disposable, Pre-filled or refillable cartridge Substance and Sexual Activity Alcohol use: Yes Comment: hard cider daily Drug use: Yes Types: Marijuana Comment: smokes 2 puffs every day Sexual activity: Not on file Other Topics Concern Not on file Social History Narrative Not on file Social Determinants of Health Financial Resource Strain: Not on file Food Insecurity: Not on file Transportation Needs: Not on file Physical Activity: Not on file Stress: Not on file Social Connections: Not on file Intimate Partner Violence: Not on file Housing Stability: Not on file No Known Allergies Objective: Blood pressure 124/75, pulse 72, temperature 98.1 F (36.7 C), temperature source Temporal, resp. rate 16, height 1.727 m (5' 8 ), weight 88.4 kg (194 lb 14.4 oz), SpO2 96 %. Results for orders placed or performed during the hospital encounter of 05/08/23 SCREEN: MRSA ONLY, NARES (ISOLATION SCREEN) Specimen: NARES; E-Swab Result Value Ref Range SCREEN: MRSA NEGATIVE NEGATIVE STAPHYOCOCCUS AUREUS BY PCR NEGATIVE NEGATIVE HEENT: NC/AT, PERRLA, EOMI, fundi benign, external ears normal, OP normal. Neck: No LAD/thyromegaly. No JVD/bruit. Lungs: Clear to auscultation bilaterally. No wheezes, rales, ronchi. Heart: RRR. No S3/S4. Abdomen: Soft, NT/ND, normal bowel sounds, no HSM, no bruits. Extremities: No clubbing, cyanosis, edema. Normal pulses. Neurologic: CN II-XII intact. Strength/DTR's/sensation symmetric. Cerebellar function normal. Skin: No rash or suspicious lesions. Musculoskeletal: No edema, redness, warmth, deformities. Psychiatric: Alert and oriented. Affect and mood normal. Assessment and Plan: POD #0 TKA - pain Rx, therapy, and anticoagulation per ortho. CAD - home Rx, monitor clinically, tele. HTN - home Rx, monitor BP's, BMP in am. HLD - home Rx and monitor clinically. GERD - PPI also for GI prophylaxis. Depression - continue home Rx. BPH - home Rx. Voiding. Monitor UO. CYNTHIA - CPAP at home setting. Anemia - follow H&H. IFG - HgbA1C normal. No need to monitor BS's. 75 minutes total time. Shahzad Whiting MD 05/08/2023 [facility]06-19-2023 Consult note* Shahzad Whiting MD - 05/08/2023 6:17 PM EDTAssociated Order(s): IP CONSULT TO GENERAL MEDICINE Medical Consultation Patient is a 67 y/o male s/p TKA. He was at his baseline state of health prior to surgery. He was medically optimized by his primary care provider. Testing notable for a Hgb of 13.5, BS 106, HgbA1C 5.3, MSSA s/p treatment. He is doing well postoperatively. Pain is adequately controlled. Has ambulated and voided. Denies CP, palpitations, cough, sputum, SOB, nausea, vtg, edema. Known coronary artery disease. he is feeling well. There are no complaints relative to his heart disease. Patient is compliant with medications. he denies any side effects from medications. he denies chest pain, SOB, LAY, palpitations, orthopnea, PND, edema, headache, focal neurologic complaints, claudication. Known high blood pressure. he is feeling well. There are no complaints relative to his blood pressure. Ambulatory blood pressures are normal. Patient is compliant with medications. he denies any side effects from medications. he denies chest pain, SOB, LAY, palpitations, orthopnea, PND, edema, headache, focal neurologic complaints, claudication. Known hyperlipidemia. he is feeling well. There are no complaints relative to his lipids. Patient is compliant with medications. he denies any side effects from medications. he denies chest pain, SOB, LAY, palpitations, orthopnea, PND, edema, headache, focal neurologic complaints, claudication. Known GERD/gastritis. Symptoms are under good control. There are no side effects noted from the medication. he denies water brash, bitter or metallic taste, dysphagia, nausea, vomiting, hematemesis, melena, or black/tarry stools. Known depression. Mood stable. Known BPH. Voiding. Known CYNTHIA - stable on CPAP. General: No fever, chills, weight loss. HEENT: No sinus pain, ear pain, sore throat. Neck: No LAD. Lungs: No cough, sputum, pleuritic pain, hemoptysis, SOB. CV: No chest pain, palpitation, orthopnea, PND, edema. GI: No abd pain, nausea, vomiting, diarrhea, constipation, melena, hematochezia. : No dysuria, frequency, hematuria. Skin: No rash or lesion. Neuro: No mental status changes, headache, focal neurologic complaints. 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 CYNTHIA (obstructive sleep apnea) Sciatica, right side Past Surgical History: Procedure Laterality Date ARTHROPLASTY HIP TOTAL ANTERIOR APPROACH Left 10/10/2022 Laterality: Left; Surgeon: Lazarus Coronado MD; Location: [facility] OR BACK SURGERY 2016 x2 NECK SURGERY 2016 x2 HEART CATHETERIZATION 2007 stent x1 COLONOSCOPY DIAGNOSTIC EAR SURGERY Left titanium piece placed OTHER SURGICAL prostate biopsy Social History Socioeconomic History Marital status: Spouse name: Not on file Number of children: Not on file Years of education: Not on file Highest education level: Not on file Occupational History Not on file Tobacco Use Smoking status: Former Years: 25.00 Types: Cigarettes Quit date: 1988 Years since quittin.4 Smokeless tobacco: Never Vaping Use Vaping Use: Every day Substances: THC, CBD Devices: Disposable, Pre-filled or refillable cartridge Substance and Sexual Activity Alcohol use: Yes Comment: hard cider daily Drug use: Yes Types: Marijuana Comment: smokes 2 puffs every day Sexual activity: Not on file Other Topics Concern Not on file Social History Narrative Not on file Social Determinants of Health Financial Resource Strain: Not on file Food Insecurity: Not on file Transportation Needs: Not on file Physical Activity: Not on file Stress: Not on file Social Connections: Not on file Intimate Partner Violence: Not on file Housing Stability: Not on file No Known Allergies Objective: Blood pressure 124/75, pulse 72, temperature 98.1 F (36.7 C), temperature source Temporal, resp. rate 16, height 1.727 m (5' 8 ), weight 88.4 kg (194 lb 14.4 oz), SpO2 96 %. Results for orders placed or performed during the hospital encounter of 05/08/23 SCREEN: MRSA ONLY, NARES (ISOLATION SCREEN) Specimen: NARES; E-Swab Result Value Ref Range SCREEN: MRSA NEGATIVE NEGATIVE STAPHYOCOCCUS AUREUS BY PCR NEGATIVE NEGATIVE HEENT: NC/AT, PERRLA, EOMI, fundi benign, external ears normal, OP normal. Neck: No LAD/thyromegaly. No JVD/bruit. Lungs: Clear to auscultation bilaterally. No wheezes, rales, ronchi. Heart: RRR. No S3/S4. Abdomen: Soft, NT/ND, normal bowel sounds, no HSM, no bruits. Extremities: No clubbing, cyanosis, edema. Normal pulses. Neurologic: CN II-XII intact. Strength/DTR's/sensation symmetric. Cerebellar function normal. Skin: No rash or suspicious lesions. Musculoskeletal: No edema, redness, warmth, deformities. Psychiatric: Alert and oriented. Affect and mood normal. Assessment and Plan: POD #0 TKA - pain Rx, therapy, and anticoagulation per ortho. CAD - home Rx, monitor clinically, tele. HTN - home Rx, monitor BP's, BMP in am. HLD - home Rx and monitor clinically. GERD - PPI also for GI prophylaxis. Depression - continue home Rx. BPH - home Rx. Voiding. Monitor UO. CYNTHIA - CPAP at home setting. Anemia - follow H&H. IFG - HgbA1C normal. No need to monitor BS's. 75 minutes total time. Shahzad Whiting MD 05/08/2023 documented in [facility] encounter[facility]* Nursing Notes - Keira Qiu RN - 05/08/2023 3:00 PM EDT Assessment is complete and remains unchanged from previous at this time with any exceptions noted in the flowsheet. Patient denies further needs and is left with call light and personals in reach. [facility]06[facility] Nurse Note* Nursing Notes - Keira Qiu RN - 05/08/2023 10:51 AM EDT Patient arrives back to room 3752 at this time. Report received. Dressing to right knee dry and intact, onq unclamped at 2ml/hr. Hemovac with small amount of sanguinous drainage. Postop vitals started, foot pumps in place, tele applied, ice water and ice chips provided. Assessment unchanged from previous otherwise. He denies both pain and further needs and is left with call light and personals inreach, family at bedside. [facility] Nurse Note* Chyna Atkins RN - 05/08/2023 10:50 AM EDT Patient discharged from PACU. Patient transported via bed to room 3752. Bed in lowest position calllight within reach. No other complaints at this time. Report given to Keira GUTIERREZ. * Debi Wiggins RN - 05/08/2023 9:11 AM EDT OR 4 Temp: 66.0' Hum: 42.0% documented in this encounterMem[facility] Nurse Surgical operation note* Chyna Atkins RN - 05/08/2023 10:50 AM EDT Patient discharged from PACU. Patient transported via bed to room 3752. Bed in lowest position calllight within reach. No other complaints at this time. Report given to Keira GUTIERREZ. [facility]06-[facility] Hospital Discharge instructions* Discharge Instructions* Keira Qiu RN - 05/08/2023 10:47 AM EDT You have been given printed educational handouts on all new medications. Please refer to your greendischarge folder for handouts. You have been given seven ABD pads, one ice gel compression wrap, six ice gel packs, two pairs of HOLLY hose and all personal belongings. If at any time you have questions please refer to your green discharge folder with all at home care instructions. Holly Hose: > Help reduce the risk of blood clots and decrease swelling > To be worn bilaterally to the lower extremities for 30 days post-op > You are able to take your HOLLY hose off for 1 hour for every 8 hours that they wear them Medications: > You have been sent home with prescriptions, including medication for pain to be taken as directed. Stay ahead and do not allow your pain to get out of control. > If prescribed Aspirin, take twice a day for 30 days. Do not skip a dose, this is your medication for the prevention of blood clots. > If you have not had a bowel movement by your 3rd post-operative day you will need to use a gentle over the counter laxative such as Milk of magnesia, Fiberlax, Miralax, etc. Bowels need to move within 3 days or take action. Gel Ice Packs > Change every 4 hours or as needed for swelling and pain for at least the first 2 weeks Ambulation > Weight bearing status : weight bearing as tolerated For Knee Replacements: > Above weight bearing status as tolerated with a walker then progress to a cane if stable, unless noted otherwise by the physician or therapist. > Physical therapy 3 times per week for 6 full weeks > Maintain uninterrupted therapy if transitioning from home therapy to out patient therapy > No therabands over your wound/incision > Patients should be doing home exercises on days they are not working with a therapist > Do not rest with a pillow under the knee, work on flexion and extension exercises to improve range of motion Anesthesia Precautions & Expectations: After anesthesia, rest for [address], drink alcoholic beverages or make any important decisions during this time. General anesthesia may cause a sore throat, jaw discomfort or muscle aches. These symptoms can last for one or two days. If you have been discharged the same day as surgery, Dr. Coronado's office will call you the morning after your discharge to follow up with how your recovery is progressing at home. * Discharge Instr - Activity* Keira Qiu RN - 05/08/2023 10:46 AM EDT Ambulate with wheeled walker until follow up appointment or directed by Dr. Coronado. * Discharge Instr - Diet* Keira Qiu RN - 05/08/2023 10:46 AM EDT Resume home diet as tolerated. * Discharge Instr - Notify* Keira Qiu RN - 05/08/2023 10:46 AM EDT Contact Office ([phone]) if: > Total Knee ROM < 90 degrees upon admission to home health or at any time during recovery period > Any falls or injuries > Redness, drainage or swelling at the incision site that is out of the ordinary from post-operative findings (minor redness, swelling and warmth around the entire knee are common post-operatively) > Patient non-compliance with assistive devices during gait > Fever > 101 degrees. For low grade fevers use Incentive Spirometry @ 10 puffs per hour and tylenol as directed. * Discharge Instr - Wound Care* Keira Qiu RN - 05/08/2023 10:46 AM EDT Images from the original note were not included. Your incision is closed with Dermabond. You may shower with this. Do not saturate or submerge extremity in water (i.e. Bathtub, hot tub, etc.) until cleared by the provider. Do not wash/scrub directly over/on your incision. Pat your incision dry do not rub your incision with a towel. Do not place any lotions, ointments, creams or powder on your incision or operative leg. When applying your new ABD pad after showering as a reminder do not place any tape over you ABD pad. Your HOLLY hose are to hold your pad in place. When you go home after surgery, you may have one or more drains in place to help your wounds heal. Hemovac, Marvin Goetz(JEFFERY) and Jose are common drains used for wounds. The drain has a squeezable container connected to flexible tubing. The tubing is put into an area near your surgical incision. It is held in place by stitches. When the drain is pressed flat, a gentle suction helps remove fluid from the wound. Your doctor will tell you when your drain can be removed. [facility] [employer] Taking Care of Your Drain(s) You will need to empty the drain and record the drainage amount on your wound drainage record sheet. Bring this record sheet to every appointment with your surgeon. What does normal drainage look like? After surgery, the color and consistency of your drainage may change in the following way: It is normal for your drainage to be a little bloody in the morning or when you move around and then return to a clear red or pink color the rest of the day. Call your surgeon s office and report if: The drainage color changed from a light color and has become bloody or bright red in color. The drainage smell has changed. The drainage has pus. How to Empty Your Drain Empty your drain in the morning and again in the evening. You should also empty the drain anytime it is long-term full. Follow these steps to empty your drain: Wash your hands well with soap and warm water. Rinse and dry. Get a measuring cup and your Wound Drainage Record Sheet. Use a record sheet to write down the amount and color of fluid from the drain. You can use the record sheet at the end of this handout or make your own. Unfasten the pin or clip that holds the drain to your clothing. Open the plug on the drain. Turn the drain upside down over the measuring cup and gently squeeze the drain to empty it. Continue to squeeze the drain. Press down on the drain until it is flat and replace the plug. All of the air needs to be out of the drain or it will not work properly. If you are not able to squeeze and plug the drain at the same time, it may help to put the drain arturo firm flat surface like a table. Do not let the drain dangle. Carefully pin or clip the drain to your clothing. Attach the drain lower than the area where it comes out of your body. Make sure the tubing lies flat with no kinks. Check the amount and color of the fluid in the measuring cup. Call your doctor if the fluid is cloudy, smells bad or the amount of fluid has increased. Write the date, time, amount and color of the fluid on the wound drainage record sheet. If you havemore than one drain, empty, measure and write down the amount of fluid for each drain. Empty the fluid into the toilet, rinse the measuring cup and flush the toilet. If you have more than one drain, repeat steps 3 to 10. Wash your hands well with soap and warm water. Rinse and dry Drain removal If you have Home Health Care, your drain will be removed by your Home Health Care Nurse. If you do not have Home Care, please call Dr. Coronado's nurse ([phone]) the morning after discharge with the recorded amount of drainage from your hemovac. The nurse will give you further instructions regarding when your drain should be removed. When to call the doctor? Call your doctor right away if you have any of the following: Fever of 100.4 degrees Fahrenheit (38 degrees Celsius) or higher Redness, swelling, or unusual drainage where the tube comes out of the skin Drainage that becomes milky, cloudy or smells bad A sudden increase in the amount of drainage Any new or increased pain Little or no drainage in the drain and fluid is leaking where the tube comes out of your skin Your drain will not stay pressed together after you have emptied it The drain tubing pulls out of your skin * Attachments The following attachments cannot be sent through Care Everywhere. * celecoxib (Namibian) * docusate (oral/rectal) (Namibian) * oxycodone (Namibian) documented in this [facility]06-19-2023 Surgery Postoperative evaluation and management note* Brief Op Note - PRINCE Yo - 05/08/2023 10:19 AM EDT POST OPERATIVE/PROCEDURE NOTE Seth Lackey [place] 67 y.o. male [id number] SURGEON Surgeon(s) and Role: * Lazarus Coronado MD - Primary MANAGER OF PMO PRINCE Yo ANESTHESIOLOGIST TRANSMITTER ENGINEER: MERRY Steele; MERRY Hutchinson SURGICAL STAFF Emt Dispatcher: Shelley Brown RN; Debi Wiggins RN Nurse Practitioner: PRINCE Yo Scrub Person: Sarita Lizama RN Harbor Engineer: Mahesh Armstrong LPN PROCEDURE PERFORMED Procedure(s) (LRB): ARTHROPLASTY KNEE TOTAL (Right) r knee periarticular injection r adductor canal catheter placment PRIMARY CLOSURE yes ANESTHESIA (type of) General ESTIMATED BLOOD LOSS 25 DRAINS Med hv BLOOD PRODUCTS None PRE OPERATIVE DIAGNOSIS Primary osteoarthritis of right knee [M17.11] POST OPERATIVE DIAGNOSIS Primary osteoarthritis of right knee [M17.11] FINDINGS Severe oa knee CONDITION OF PATIENT Stable COMPLICATION No complications GRAFTS AND/OR IMPLANTS Implant Name Type Inv. Item Serial No. Financial Center Manager Lot No. LRB No. Used Action PALACOS R 1 X 40 US - [id number] PALACOS R 1 X 40 US [id number] Right 2 Implanted PATELLA - KNEE - [id number] PATELLA - KNEE [id number] Right 1 Implanted FEMUR - KNEE - [id number] FEMUR - KNEE [id number] Right 1 Implanted Attune Knee System Tibial Base Fixed Bearing DEPUY [id number] Right 1 Implanted INSERT - KNEE - [id number] INSERT - KNEE [id number] Right 1 Implanted SPECIMENS ID Type Source Tests Collected by Time Destination 1 : Bone RIght Knee Permanent TISSUE SURGICAL PATHOLOGY REQUEST Lazarus Coronado MD 05/08/2023 [id number] Mone Watson APRN-CRAYON SORTING MACHINE FEEDER May 08, 2023 10:20 AM [facility]06-19-2023 Nurse Surgical operation note* Debi Wiggins RN - 05/08/2023 9:11 AM EDT OR 4 Temp: 66.0' Hum: 42.0% [facility]05-26-2023 Evaluation note* Encounter Date Diagnosis Assessment Notes Treatment Notes Treatment Clinical Notes March, Pre-operative examin [facility] (ICD-10 - Z01.818) Reviewed medication and preadmission testing. - no abnormal findings to prohibit surgery Due to hx of PCI/stent, he was instructed to continue w/ ASA daily March, ASHD (arteriosclerot ic heart disease) (ICD-10 - I25.10) Stable w/o activity limiting symptoms. EGK reviewed, no acute ST/T wave changes, NSR March, Primary hypertension (ICD-10 - I10) Stable, continue medication prescribed w/o interruption March, Pure hypercholestero lemia (ICD-10 - E78.00) March, Gastroesophageal ref lux disease without esophagitis (ICD-10 - K21.9) Stable, continue PPI as needed. March, Primary osteoarthrit is of right knee (ICD-10 - M17.11) Scheduled for [facility] [employer] Other 05-04-2023 History of Present illness Narrative* Sneha Busby LPN - 03/23/2023 10:00 AM EDT Ortho Nurse - Established Patient Intake Room#: 2--Visit today is a 4 month post-op check of Left MIKE (D/A)--10-10-22. His pain today is a 6. Has complaints of stiffness. Date: 03/23/2023 10:20 AM Patient: Seth Bell MR#: [id number] : 1955 Age: 67 y.o. Referring Physician: Self, Self Insurance: Payor: MEDICARE / Plan: MEDICARE A AND B / Product Type: *No Product type* / Chief Complaint Patient presents with Left Hip - Post Op Visit Visit Vitals Temp 97.4 F (36.3 C) (Temporal) Ht 1.702 m (5' 7 ) Wt 89.7 kg (197 lb 12.8 oz) BMI 30.98 kg/m Pain Presence of Pain: complains of pain/discomfort Pain Location: hip, left Select Pain Scale: DVPRS (Defense and Veterans Pain Rating Scale) (Adult- Cognitively Intact) Pain Location: hip, left Select Pain Scale: DVPRS (Defense and Veterans Pain Rating Scale) (Adult- Cognitively Intact) Recent Labs No results found for: CRP No results found for: SEDRATE Lab Results Component Value Date WBC 9.7 10/11/2022 HGB 10.1 (L) 10/11/2022 HCT 29.8 (L) 10/11/2022 PLATELET 146 10/11/2022 MCV 89.3 10/11/2022 History 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 CYNTHIA (obstructive sleep apnea) Past Surgical History: Procedure Laterality Date ARTHROPLASTY HIP TOTAL ANTERIOR APPROACH Left 10/10/2022 Laterality: Left; Surgeon: Lazarus Coronado MD; Location: [facility] BACK SURGERY 2016 x2 NECK SURGERY 2016 x2 HEART CATHETERIZATION 2007 stent x1 COLONOSCOPY DIAGNOSTIC EAR SURGERY Left titanium piece placed OTHER SURGICAL prostate biopsy Family History: His family history is not on file. Social History: His reports that he has quit smoking. His smoking use included cigarettes. He has never used smokeless tobacco. He reports current alcohol use. He reports current drug use. Drug: Marijuana. Outpatient Medications Prior to Visit Medication Sig Dispense Refill acetaminophen 325 MG tablet Take 2 tablets by mouth every 4 hours as needed for Mild Pain. 50 tablet 1 amlodipine-benazepril 5-40 MG capsule amlodipine 5 mg-benazepril 40 mg capsule TAKE 1 CAPSULE BY MOUTH EVERY DAY Aspirin [address] tablet At bedtime. atorvastatin 80 MG tablet Take 1 tablet by mouth every evening. buPROPion 300 MG tablet XL Take 1 tablet by mouth daily. medicinal cannabis (MEDICINAL MARIJUANA) by Unknown route. 2 puffs once daily metoprolol succinate 50 MG tablet XL Take 1 tablet by mouth daily. pm omeprazole [address] capsule omeprazole 40 mg capsule,delayed release TAKE 1 CAPSULE EVERY MORNING ON AN EMPTY STOMACH followed in 30 MINUTES by BREAKFAST oxyCODONE-acetaminophen 5-325 MG per tablet Every 6 hours. Tamsulosin HCl 0.4 MG capsule tamsulosin 0.4 mg capsule TAKE 1 CAPSULE BY MOUTH EVERY DAY traZODone 50 MG tablet Take 1 tablet by mouth at bedtime. aspirin EC [address] Take 1 table twice a day for 30days. This medication is for blood clot prevention. (Patient not taking: Reported on 03/23/2023) 60 tablet 0 celecoxib 200 MG capsule Take 1 capsule by mouth 2 times daily. 84 capsule 0 cyclobenzaprine 10 MG tablet Take 10 mg by mouth at bedtime. (Patient not taking: Reported on 03/23/2023) docusate 100 MG capsule Take 1 capsule by mouth 2 times daily. (Patient not taking: Reported on 03/23/2023) 60 capsule 0 finasteride 5 MG tablet finasteride 5 mg tablet TAKE 1 TABLET BY MOUTH DAILY (Patient not taking: Reported on 03/23/2023) Misc. Devices (Raised Toilet Seat) Misc 1 Units by Unknown route daily. (Patient not taking: Reported on 03/23/2023) 1 Each 0 oxyCODONE 5 MG tablet Take 1-2 tabs po q 4-6 hours prn pain. Wean as tolerated. 30 tablet 0 therapeutic multivitamin-minerals tablet Take 1 tablet by mouth at bedtime. (Patient not taking: Reported on 03/23/2023) 30 tablet 0 traZODone 50 MG tablet 1 tablet at bedtime as needed Orally Once a day for 30 day(s) (Patient not taking: Reported on 03/23/2023) No facility-administered medications prior to visit. Allergies: He has No Known Allergies. * Lazarus Coronado MD - 03/23/2023 10:00 AM EDT HPI: Patient is here today to be evaluated for right knee pain. He is a pleasant 67 y.o. male. Primary complaint is pain and discomfort. He has experienced a progressive decline in physical function and quality of life secondary to the discomfort in the right knee. He presents with a highly complexarray of symptoms upon exam today. The more he is on it, the more it hurts. He has increased pain with physical activities. He has locking, popping, catching, clicking and instability. He reports theknee recently buckled last week and nearly caused him a fall - he now has a daily fear of falling. He has attempted and failed conservative treatment in the past. 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 Patient is also here today for evaluation of his operative hip. He is status post left total hip arthroplasty. He is about 4 months out and reports that he is doing well and is pleased with the outcome of the intervention. The hip feels better now than it did before, and feels the new hip is way better than what I had before . His pain is a 3/10. PHYSICAL EXAM: This is an alert, oriented, and age-appropriate male. He is in no distress. Pleasantand cooperative. EXTREMITIES: The upper extremities have no gross deformities. Normal stability. Skin Intact. 5/5 motor. Intact sensation. Normal neurovascular status. Normal coordination. The lower extremities have no gross deformities. Normal stability. Skin Intact. 5/5 motor. Intact sensation. Normal neurovascular status. Normal coordination. Range of motion upon exam today is 5-115. Fixed varus alignment. Crepitus throughout the arc of motion. Painful range of motion. Full motion of hip. Nopain. No impingement. No instability. The operative lower extremity is soft, nontender with full and supple motion of the hip. No pain, no impingement. No instability. Bilateral lower extremities have normal neurovascular status. DIAGNOSTIC STUDIES/INTERPRETATION: Long-standing films of mechanical axis that falls to the medial compartment of the right knee. Multiple views of knee demonstrate severe arthritis of the knee with loss of joint space, subchondral sclerosis, osteophyte formation, and jrtp-nf-lyqz contact. AP hip and pelvis films demonstrate a left total hip arthroplasty in good position and alignment. No evidence of prosthetic implant loosening or migration. IMPRESSION: 1.) Symptomatic end-stage arthritis of the right knee. 2.) Stable status post left total hip arthroplasty, doing well. PLAN: We have discussed in great detail the nature of the diagnosis, the natural history and expected progression which is likely worsening pain, instability with risks of falls, and additional jointwear and or bone loss. We have discussed the options for treatment including both conservative and operative treatments. We have discussed the risks, benefits, and alternatives to each treatment. Seth is interested in surgical management in the form of a right total knee replacement. Seth understands that the potential benefits are reduced pain, improved stability and improved function. Seth also understands that the major limb and/or life threatening risks include, but are not limited to: bleeding, infection, neurovascular injury including foot drop or paralysis, dislocation, componentfailure, implant loosening, ligament or tendon disruption, fracture, stiffness, chronic pain, chronic disability, need for further surgery, blood clots in the extremities or lungs, stroke, heart attack, loss of limb, and ultimately loss of life. termination clerk expectations, risks and general implant survivorship were also discussed. Despite these risks, the patient would like to proceed with surgical planning. Today, we will initiate the pre- surgical process including nasal MRSA screening, scheduling an appointment for [facility] and the potential surgical date, and reviewing and signing the consent forms. PLAN OF CARE FOR THE LEFT HIP: I reviewed my findings with patient. Overall, I am pleased with the outcome of intervention. He has made an excellent recovery. We discussed the stages of healing alongwith what symptoms can be expected at current stage of healing. He understands he is at the 50% efrain of total recovery. We then discussed the benefits of performing a variety of exercises at home, with a physical therapist or local gym. He understands and agrees to continue this in a slow, steady manner. I expect continued improvement in strength and mobility moving forward. I recommend followup at one year postop for repeat clinical and radiographic examination or sooner if any new symptoms develop. He will call with any questions or concerns in the meantime. I have reviewed the findings of my clinical staff below and agree with their assessment. Ortho Nurse - Established Patient Intake Room#: 2--Visit today is a 4 month post-op check of Left MIKE (D/A)--10-10-22. His pain today is a 6. Has complaints of stiffness. Date: 03/23/2023 10:20 AM Patient: Seth Bell MR#: [id number] : 1955 Age: 67 y.o. Referring Physician: Self, Self Insurance: Payor: MEDICARE / Plan: MEDICARE A AND B / Product Type: *No Product type* / Chief Complaint Patient presents with Left Hip - Post Op Visit Visit Vitals Temp 97.4 F (36.3 C) (Temporal) Ht 1.702 m (5' 7 ) Wt 89.7 kg (197 lb 12.8 oz) BMI 30.98 kg/m Pain Presence of Pain: complains of pain/discomfort Pain Location: hip, left Select Pain Scale: DVPRS (Defense and Veterans Pain Rating Scale) (Adult- Cognitively Intact) Pain Location: hip, left Select Pain Scale: DVPRS (Defense and Veterans Pain Rating Scale) (Adult- Cognitively Intact) Recent Labs No results found for: CRP No results found for: SEDRATE Lab Results Component Value Date WBC 9.7 10/11/2022 HGB 10.1 (L) 10/11/2022 HCT 29.8 (L) 10/11/2022 PLATELET 146 10/11/2022 MCV 89.3 10/11/2022 History 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 CYNTHIA (obstructive sleep apnea) Past Surgical History: Procedure Laterality Date ARTHROPLASTY HIP TOTAL ANTERIOR APPROACH Left 10/10/2022 Laterality: Left; Surgeon: Lazarus Coronado MD; Location: [facility] BACK SURGERY 2016 x2 NECK SURGERY 2016 x2 HEART CATHETERIZATION 2007 stent x1 COLONOSCOPY DIAGNOSTIC EAR SURGERY Left titanium piece placed OTHER SURGICAL prostate biopsy Family History: His family history is not on file. Social History: His reports that he has quit smoking. His smoking use included cigarettes. He has never used smokeless tobacco. He reports current alcohol use. He reports current drug use. Drug: Marijuana. Outpatient Medications Prior to Visit Medication Sig Dispense Refill acetaminophen 325 MG tablet Take 2 tablets by mouth every 4 hours as needed for Mild Pain. 50 tablet 1 amlodipine-benazepril 5-40 MG capsule amlodipine 5 mg-benazepril 40 mg capsule TAKE 1 CAPSULE BY MOUTH EVERY DAY Aspirin [address] tablet At bedtime. atorvastatin 80 MG tablet Take 1 tablet by mouth every evening. buPROPion 300 MG tablet XL Take 1 tablet by mouth daily. medicinal cannabis (MEDICINAL MARIJUANA) by Unknown route. 2 puffs once daily metoprolol succinate 50 MG tablet XL Take 1 tablet by mouth daily. pm omeprazole [address] capsule omeprazole 40 mg capsule,delayed release TAKE 1 CAPSULE EVERY MORNING ON AN EMPTY STOMACH followed in 30 MINUTES by BREAKFAST oxyCODONE-acetaminophen 5-325 MG per tablet Every 6 hours. Tamsulosin HCl 0.4 MG capsule tamsulosin 0.4 mg capsule TAKE 1 CAPSULE BY MOUTH EVERY DAY traZODone 50 MG tablet Take 1 tablet by mouth at bedtime. aspirin EC [address] Take 1 table twice a day for 30days. This medication is for blood clot prevention. (Patient not taking: Reported on 03/23/2023) 60 tablet 0 celecoxib 200 MG capsule Take 1 capsule by mouth 2 times daily. 84 capsule 0 cyclobenzaprine 10 MG tablet Take 10 mg by mouth at bedtime. (Patient not taking: Reported on 03/23/2023) docusate 100 MG capsule Take 1 capsule by mouth 2 times daily. (Patient not taking: Reported on 03/23/2023) 60 capsule 0 finasteride 5 MG tablet finasteride 5 mg tablet TAKE 1 TABLET BY MOUTH DAILY (Patient not taking: Reported on 03/23/2023) Misc. Devices (Raised Toilet Seat) Misc 1 Units by Unknown route daily. (Patient not taking: Reported on 03/23/2023) 1 Each 0 oxyCODONE 5 MG tablet Take 1-2 tabs po q 4-6 hours prn pain. Wean as tolerated. 30 tablet 0 therapeutic multivitamin-minerals tablet Take 1 tablet by mouth at bedtime. (Patient not taking: Reported on 03/23/2023) 30 tablet 0 traZODone 50 MG tablet 1 tablet at bedtime as needed Orally Once a day for 30 day(s) (Patient not taking: Reported on 03/23/2023) No facility-administered medications prior to visit. Allergies: He has No Known Allergies. [facility] Discharge instructions Patient Education 12/05/2022 08:07:53 Benign Prostatic Hyperplasia Benign Prostatic Hyperplasia Benign prostatic hyperplasia (BPH) is an enlarged prostate gland that is caused by the normal agingprocess and not by cancer. The prostate is a walnut-sized gland that is involved in the production of semen. It is located in front of the rectum and below the bladder. The bladder stores urine and the urethra is the tube that carries the urine out of the body. The prostate may get bigger as a man gets older. An enlarged prostate can press on the urethra. This can make it harder to pass urine. The build-up of urine in the bladder can cause infection. Back pressure and infection may progress to bladder damage and kidney (renal) failure. What are the causes? This condition is part of a normal aging process. However, not all men develop problems from this condition. If the prostate enlarges away from the urethra, urine flow will not be blocked. If it enlarges toward the urethra and compresses it, there will be problems passing urine. What increases the risk? This condition is more likely to develop in men over the age of 50 years. What are the signs or symptoms? Symptoms of this condition include: Getting up often during the night to urinate. Needing to urinate frequently during the day. Difficulty starting urine flow. Decrease in size and strength of your urine stream. Leaking (dribbling) after urinating. Inability to pass urine. This needs immediate treatment. Inability to completely empty your bladder. Pain when you pass urine. This is more common if there is also an infection. Urinary tract infection (UTI). How is this diagnosed? This condition is diagnosed based on your medical history, a physical exam, and your symptoms. Tests will also be done, such as: A post-void bladder scan. This measures any amount of urine that may remain in your bladder after you finish urinating. A digital rectal exam. In a rectal exam, your health care provider checks your prostate by putting a lubricated, gloved finger into your rectum to feel the back of your prostate gland. This exam detects the size of your gland and any abnormal lumps or growths. An exam of your urine (urinalysis). A prostate specific antigen (PSA) screening. This is a blood test used to screen for prostate cancer. An ultrasound. This test uses sound waves to electronically produce a picture of your prostate gland. Your health care provider may refer you to a specialist in kidney and prostate diseases (urologist). How is this treated? Once symptoms begin, your health care provider will monitor your condition (active surveillance or watchful waiting). Treatment for this condition will depend on the severity of your condition. Treatment may include: Observation and yearly exams. This may be the only treatment needed if your condition and symptoms are mild. Medicines to relieve your symptoms, including: ?Medicines to shrink the prostate. ?Medicines to relax the muscle of the prostate. Surgery in severe cases. Surgery may include: ?Prostatectomy. In this procedure, the prostate tissue is removed completely through an open incision or with a laparoscope or robotics. ?Transurethral resection of the prostate (TURP). In this procedure, a tool is inserted through the opening at the tip of the penis (urethra). It is used to cut away tissue of the inner core of the prostate. The pieces are removed through the same opening of the penis. This removes the blockage. ?Transurethral incision (TUIP). In this procedure, small cuts are made in the prostate. This lessens the prostate's pressure on the urethra. ?Transurethral microwave thermotherapy (TUMT). This procedure uses microwaves to create heat. The heat destroys and removes a small amount of prostate tissue. ?Transurethral needle ablation (TUNA). This procedure uses radio frequencies to destroy and remove a small amount of prostate tissue. ?Interstitial laser coagulation (ILC). This procedure uses a laser to destroy and remove a small amount of prostate tissue. ?Transurethral electrovaporization (TUVP). This procedure uses electrodes to destroy and remove a small amount of prostate tissue. ?Prostatic urethral lift. This procedure inserts an implant to push the lobes of the prostate away from the urethra. Follow these instructions at home: Take [id number] and prescription medicines only as told by your health care provider. Monitor your symptoms for any changes. Contact your health care provider with any changes. Avoid drinking large amounts of liquid before going to bed or out in public. Avoid or reduce how much caffeine or alcohol you drink. Give yourself time when you urinate. Keep all follow-up visits as told by your health care provider. This is important. Contact a health care provider if: You have unexplained back pain. Your symptoms do not get better with treatment. You develop side effects from the medicine you are taking. Your urine becomes very dark or has a bad smell. Your lower abdomen becomes distended and you have trouble passing your urine. Get help right away if: You have a fever or chills. You suddenly cannot urinate. You feel lightheaded, or very dizzy, or you faint. There are large amounts of blood or clots in the urine. Your urinary problems become hard to manage. You develop moderate to severe low back or flank pain. The flank is the side of your body between the ribs and the hip. These symptoms may represent a serious problem that is an emergency. Do not wait to see if the symptoms will go away. Get medical help right away. Call your local emergency services (911 in the [place] Do not drive yourself to the hospital. Summary Benign prostatic hyperplasia (BPH) is an enlarged prostate that is caused by the normal aging process and not by cancer. An enlarged prostate can press on the urethra. This can make it hard to pass urine. This condition is part of a normal aging process and is more likely to develop in men over the age of 50 years. Get help right away if you suddenly cannot urinate. This information is not intended to replace advice given to you by your health care provider. Make sure you discuss any questions you have with your health care provider. Document Released: 11/06/2006 Document Revised: 10/01/2019 Document Reviewed: 12/11/2017 [employer] Patient Education 2020 [employer]. Follow Up Care 12/03/2021 10:50:50 With:SHAUN SHEETS, TOO Duffy Address: [facility] [address], [place] [id number]- When: Unknown [facility] 12-08-2022 NoteCONSULTATION CONSULTATION DATE: 10/27/2022 HISTORY OF PRESENT ILLNESS: This is a 67-year-old gentleman returning to the clinic for a three month follow up for his chronic lower back pain and hip pain. Since his last visit in July, the patient had a left total hip replacement and is overall doing wonderful. It was completed at [facility] in [place] by Dr. Coronado. The patient is recovering well and has no back pain today. His current medications include Percocet 5/325 b.i.d., Flexeril 10 mg q.h.s., Celebrex 100 mg daily and multivitamin. He is using a walker at this time in the post-op phase. Patient's REVIEW OF SYSTEMS / PAST MEDICAL HISTORY / ALLERGIES and IMAGES have been reviewed and noted on the chart. PHYSICAL EXAM: VITAL SIGNS: Blood pressure 125/77, heart rate is 59. He is 5'5 , weighs 87 kg. GENERAL APPEARANCE: Pleasant, appropriate, no acute distress. FOCUSED EXAM - BACK: Range of motion is functional in lateral rotation and flexion/extension. Paravertebral muscles are non-spasmodic. No reproduction of spinal axial pain along compression of the posterior elements of the facets. Rodger's point non-tender bilaterally. MUSCULOSKELETAL: Motor is intact, 4/5 bilaterally. Slight muscle atrophy noted to left lower quadriceps. Patient ambulates steadily with a walker. NEUROLOGICAL: Negative polyneuropathy. Patient is cognitively intact. Bilateral patellar is +2. DIAGNOSIS: Chronic lower back pain, lumbar spondylosis, status post left total hip replacement. PLAN: Overall, the patient is doing quite well and is in good spirits. There will be no changes to his medication dose and frequency at this time. He is to continue with his home supportive measures such as heat and stretches and increase activity. He will be seen in the clinic in three months' time unless otherwise indicated.[id number] Miscellaneous Notes* Nursing Notes - Keira Qiu RN - 10/11/2022 1:22 PM EST Patient is discharging home with belongings at this time. * Nursing Notes - Lily Gill RN - 10/11/2022 1:22 PM EST If reports having pain: Are you taking medications prescribed to alleviate pain? Patient did not answer phone Do the pain medications give pain relief? Patient did not answer phone Is the level of your pain acceptable to you? Yes Surgical Dressing: Do you have an surgical dressing? patient will contact provider for surgical dressing concerns Surgical Site: Do you have any of the following? Patient did not answer phone Nausea / Vomiting: Are you having any nausea or vomiting? patient will contact provider to discuss nausea / vomiting Post Op Instructions: Did you understand your Post-op Instructions? Patient encouraged to contact Dr. Coronado's office foradditional questions Staff Provider office contact: NA * Nursing Notes - Ly Lynn RN - 10/11/2022 12:39 PM EST Discharge instructions and education reviewed with pt, education provided for dx and new medications, printed education given, denies any questions, IV removed. Extra ABDs, ice packs and holly hose given to patient. Meds to bed with integrity seal intact given to patient also. * Nursing Notes - Ly Lynn RN - 10/11/2022 10:52 AM EST Assessment is complete and remains unchanged from previous at this time with any exceptions noted in the flowsheet. Patient denies further needs and is left with call light and personals in reach. Will continue to monitor. * Op Note - Lazarus Coronado MD - 10/11/2022 7:33 AM EST DATE OF PROCEDURE: 10/10/2022 ATTENDING PHYSICIAN: Lazarus Coronado M.D. MANAGER OF PMO: Mone Watson CNP. PREOPERATIVE DIAGNOSES: 1. Severe left hip osteoarthritis. 2. Spinopelvic stiffness left hip. POSTOPERATIVE DIAGNOSES: 1. Severe left hip osteoarthritis. 2. Spinopelvic stiffness left hip. PROCEDURES PERFORMED: 1. Direct anterior left total hip arthroplasty. 2. Periarticular injection left hip. 3. Interpretation of intraoperative fluoroscopy left hip. ANESTHESIA: General. ANESTHESIOLOGIST: Per record. ESTIMATED BLOOD LOSS: 125 mL. COMPLICATIONS: None. INTRAVENOUS FLUIDS: Adequate. SPECIMENS: Bone. INSTRUMENTATION USED: DePuy Bimentum Press-fit cup 53 with a 28-53 PE liner, an Actis size 6 high-offset hip stem, and a Biolox delta ceramic head 28 diameter, +5 neck length, 12/14 taper. INDICATIONS: Seth is an established patient of [employer]. She is a very pleasant, 66-year-old female with a history of severe left hip pain and has been diagnosed with osteoarthritis. Patient has failedconservative management and was given the options of treatment, and elected to proceed forward withoperative intervention. For that reason then, the patient was scheduled for the procedure, for which he appears today. Upon arrival to the preoperative unit, the risks, benefits and alternatives werethoroughly explained, informed consent was verified, and the surgical site was marked. After evaluation by Anesthesia and administration of the preoperative antibiotics, the patient was then brought to the operating room. DESCRIPTION OF THE PROCEDURE: Upon arrival to the operating room, the patient was placed supine on the operating room table and general anesthetic was induced. The patient was repositioned on the Buhl table for anterior hip surgery. The operative region was then prepped and draped in a sterile standard fashion. A proper timeout was performed. I began by utilizing a direct anterior incision, starting one fingerbreadth inferior and lateral tothe ASIS. I came down over the TFL. I split the fascia in line with the original incision. I then peeled up the medial border of the fascia and bluntly dissected over the medial side of the TFL to the superior femoral neck recess. Retraction was established here with a Cobra retractor. A Jackson was used to mobilize the rectus medially off the capsule, and retraction was then established around theinferior femoral neck with a second Cobra. I then ligated the ascending femoral circumflex vessels with the Aquamantys device, and I continued with an L-shaped capsulotomy of the anterior hip capsule, which was tagged and retracted anteriorly throughout the duration of the case. Gentle traction andexternal rotation was applied and a second posterior-superior leaflet was released out of the piriformis fossa, preserving the piriformis, obturator internus, and the obturator externus tendons. Thiswas then tagged, and I then released the pubofemoral portion of the capsule down to the level of the lesser trochanter. Using this as reference, I then marked my neck cut in accordance with my preoperative template. The head and neck osteotomy was performed. The head was removed, which demonstratedsevere endstage arthritis with significant deformity and complete loss of the cartilage. The femur naturally translated posteriorly and exposure was gained about the acetabulum with a #3 retractor placed under the anterior capsule directly on the anterior wall and then a Cobra placed directly adjacent to the posterior wall. A complete labrectomy was performed and the contents of the notch were resected. I started off with a size 49 reamer and reamed up to a size 53 mm reamer. In doing so, I reamed to my templated, planned position. I then impacted a 54 mm shell at approximately 40 degrees of abduction and 10-15 degrees of anteversion, which was in line with the natural acetabularanteversion and the transverse acetabular ligament. Rim osteophytes were safely removed. Impaction and final cup position was also verified with intraoperative fluoroscopy. Following this, the wound was thoroughly irrigated and the final liner was impacted into the shell. It was free of soft tissueentrapment and verified to be secure. I then turned my attention to the proximal femur. The proximal femur was re-exposed. The lifting hook was placed with great care directly adjacent tothe bone of the proximal femur, and the leg was externally rotated, dropped into extension and slight adduction. I then manually lifted the hook to verify proper tension, and then secured its position with the Buhl table lift. With adequate exposure of the proximal femur, I then used a box osteotome in line with the posterior cortical neck. I then used a curved rasp to gain access to the canal and verify appropriate position. I then used a starting broach in line with the posterior cortical neck and increased all the way up to a size 6 high-offset broach. I was satisfied with the metaphyseal s tability of this construct, the neck height, and shoulder height and, at this point, I started off trialing head and neck options according to my preoperative template. The hook was removed and the leg was reduced. Function and stability was assessed. There was excellent stability to full extensionand external rotation to 90 degrees in both abduction and adduction. There was no impingement and no instability. There was full flexion, and at 90 degrees of flexion there was approximately 80 degrees of internal rotation without any evidence of impingement or instability. Intraoperative fluoroscopy was used to verify appropriate position, fit and fill, and recreation of leg length and offset. It matched that compared to my preoperative template. Thus, at this point, the hip was re-dislocated.The trials were removed and the final implant was impacted down to a similar place as the trial. I re-trialed the hip with a +5 neck option as I felt this best optimized length, offset, stability, and motion. I was satisfied with this and the final head/neck combination was impacted onto a clean and dried Kay taper and this was verified to be secure. The hip was then reduced and performance wasunchanged. I then turned my attention towards wound closure. The wound was thoroughly irrigated. It was soaked with Betadine soak saline solution and irrigated further. The periarticular injection was administered. A gram of vancomycin was placed deep over theimplant. I then closed the capsule with 0-Vicryl Pop-Offs. The fascia layer of the TFL was closed with #0 Quill. The subcutaneous fatty layer was closed with #0 Quill and the skin was closed with Dermabond. A sterile dressing was placed. The patient was woken up from the anesthetic, extubated and taken to the postoperative care unit in stable condition. POSTOPERATIVE PLAN OF CARE: 1. Weightbearing as tolerated, therapy to start today. 2. Antibiotics 24 hours postop. 3. DVT prophylaxis, both mechanical and chemical. 4. Follow up in the office in 2-3 weeks. Due to the patient s spinopelvic stiffness, I opted to use a dual-mobility construct as described above to reduce the long-term incidence of instability. ATTENDING/ ASSISTING PARTICIPATION: This operation could not have been safely performed (without compromising the technical results or length of the procedure) without the assistance of a skilled anesthesiology physician assistant. A anesthesiology physician assistant was medically necessary for positioning, retraction and instrum entation. * Nursing Notes - Felecia Carrera RN - 10/11/2022 2:58 AM EST Pt assessment remains unchanged. Pt c/o 8-9/10 pain to L. Hip. Pt states pain is stinging. Dilaudid given- see MAR. Pt ambulated to BR to void at this time. Ice pack changed and applied to L. Hip. Denies any further needs at this time. Call light within reach. * Nursing Notes - Felecia Carrera RN - 10/11/2022 12:31 AM EST Pt assessment remains unchanged. Pt c/o 5/10 pain to L. Hip. Medication given - see MAR. Fresh ice pack applied to L. Hip. Denies any further needs at this time. Call light within reach. * Nursing Notes - Felecia Carrera RN - 10/10/2022 8:29 PM EST Pt assessment complete. POC reviewed with pt. Pt states pain to L.hip is 5/10. Medication given- see MAR. Ice pack applied to L. Hip. Denies any further needs at this time. Call light within reach. * Nursing Notes - Ly Lynn RN - 10/10/2022 3:22 PM EST Assessment is complete and remains unchanged from previous at this time with any exceptions noted in the flowsheet. Patient denies further needs and is left with call light and personals in reach. Will continue to monitor. * Nursing Notes - Ly Lynn RN - 10/10/2022 1:00 PM EST Report received from SECURITY RESEARCHER. Patient hooked up to tele and vitals at this time. Call light within reach and bed in low position. * Brief Op Note - PRINCE Yo - 10/10/2022 11:42 AM EST POST OPERATIVE/PROCEDURE NOTE Seth Bell 66 y.o. male [id number] SURGEON Surgeon(s) and Role: * Lazarus Coronado MD - Primary MANAGER OF PMO PRINCE Yo ANESTHESIOLOGIST TRANSMITTER ENGINEER: MERRY Rodriguez SURGICAL STAFF Emt Dispatcher: Imelda Gilbert RN; Lisa Bueno RN Nurse Practitioner: PRINCE Yo Inspector Plating: Don Snider; Refugio De Leon PROCEDURE PERFORMED Procedure(s) (LRB): ARTHROPLASTY HIP TOTAL DA - LEFT * covid test o/a* (Left) Left hip periarticular injection intraop interpretation of fluoroscopy PRIMARY CLOSURE yes ANESTHESIA (type of) * No anesthesia type entered * ESTIMATED BLOOD LOSS 125 DRAINS noen BLOOD PRODUCTS None PRE OPERATIVE DIAGNOSIS Primary osteoarthritis of left hip [M16.12] POST OPERATIVE DIAGNOSIS Primary osteoarthritis of left hip [M16.12] FINDINGS Severe oa hip CONDITION OF PATIENT Stable COMPLICATION No complications GRAFTS AND/OR IMPLANTS Implant Name Type Inv. Item Serial No. Financial Center Manager Lot No. LRB No. Used Action bi mentum press fit cup 53 [id number] Left 1 Implanted femoral stem sz 6 [id number] [id number] Left 1 Implanted femoral head 28mm DEPUY [id number] Left 1 Implanted bi mentum liner DEPUY [id number] Left 1 Implanted SPECIMENS ID Type Source Tests Collected by Time Destination 1 : left femoral head Permanent TISSUE SURGICAL PATHOLOGY REQUEST Lazarus Coronado MD 10/10/2022 1045 PRINCE Yo October 10, 2022 11:42 AM * Nursing Notes - Brittani Honeycutt RN - 09/15/2022 10:07 AM EDT 09/15/22 1004 Information Source Information Source patient ;child Contact Information [employer] Name Brittani Honeycutt RN Case Manager's Living Environment Lives With spouse Living Arrangements house (One story home with basement) Provides Primary Care For no one Primary Care Provided By self Support System Immediate family Able to Return to Prior Arrangements yes Employment/Financial Employed? Retired Cognitive/Perceptual/Developmental Current Mental Status/Cognitive Functioning no deficits noted Recent Changes in Mental Status/Cognitive Functioning no changes Developmental Stage Stage 8 (65 years-/Late Adulthood) Integrity vs. Despair Emotional/Psychological Affect no deficits noted Mood congruent to situation Verbal Skills no deficits noted Current Interpersonal Conduct/Behavior appropriate to situation Mental Health Conditions/Symptoms anxiety disorder Thought Process Alterations no deficits noted Previous Mental Health Treatment medication (Patient states that medication is effective) Referral Information Referral Source physician CM met with patient and daughter on this date to discuss post-surgical discharge plans. Patient states that he plans to return home with no needs for his hip. He states that his spouse recently had neck surgery and will also be recovering. Patient's two daughters will be providing assistance after surgery. Patient has a wheeled walker, instructed to bring with him on the day of surgery. He states that he also has a shower bench and elevated toilet seat. Patient denies any other questions or needs at this time. CM to continue to follow and assist with discharge plans. documented in this [facility]11-22-2022 Note* Nursing Notes - Keira Qiu RN - 10/11/2022 1:22 PM EST Patient is discharging home with belongings at this time. [facility]11-22-2022 Note* Nursing Notes - Lily Gill RN - 10/11/2022 1:22 PM EST If reports having pain: Are you taking medications prescribed to alleviate pain? Patient did not answer phone Do the pain medications give pain relief? Patient did not answer phone Is the level of your pain acceptable to you? Yes Surgical Dressing: Do you have an surgical dressing? patient will contact provider for surgical dressing concerns Surgical Site: Do you have any of the following? Patient did not answer phone Nausea / Vomiting: Are you having any nausea or vomiting? patient will contact provider to discuss nausea / vomiting Post Op Instructions: Did you understand your Post-op Instructions? Patient encouraged to contact Dr. Coronado's office foradditional questions Staff Provider office contact: NA [facility]11-22-2022 Note* Nursing Notes - Ly Lynn RN - 10/11/2022 12:39 PM EST Discharge instructions and education reviewed with pt, education provided for dx and new medications, printed education given, denies any questions, IV removed. Extra ABDs, ice packs and holly hose given to patient. Meds to bed with integrity seal intact given to patient also. [facility]11-22-2022 History of Present illness Narrative* Oriana Menendez RPH - 10/11/2022 12:14 PM EST AOP Patient Education on Meds to Beds Scripts AOP received prescriptions for Seth Bell for bedside delivery at discharge Medications ordered: Tylenol 325 mg Oxycodone 5 mg Docusate Sodium 100 mg Thera-Tabs Aspirin Ec 81 mg Celebrex 200 mg Issues Identified N/A Patient Education Counseled patient on appropriate use and side effects of medications. Oriana Menendez RP * Brittani Honeycutt RN - 10/11/2022 11:37 AM EST Met with patient for follow up regarding discharge plan. Patient to return home with family and no needs for his hip, following HEP. Patient informed of post-op follow up call tomorrow, patient denies any other needs at this time. * Gloria Gates PTA - 10/11/2022 11:11 AM EST 10/11/22 1014 Time In/Out Time In 1014 Time Out 1052 Total Visit Time 38 minutes Subjective Subjective Reports Pt states left hip is achy General Pain Documentation (Adult, OB, Peds) Pain Location hip, left DVPRS (Defense and Veterans Pain Rating Scale) DVPRS: Rest 7- severe pain DVPRS: Activity 7- severe pain Objective Therapeutic Interventions Ther ex left LE in reclincer: QS,GS,SAQ,AP, heel slide, LAQ [id number] ea. Pt trans sit to stand Patricia with use of FWW. Gt with fww x250ft SBA/S with step thru pattern, mildly antalgic left. no LOB incl with turns. Pt ed car trans with good understanding. Pt amb up/down 4 steps x2 reps with use of handrails and SBA. Pt ed frequent use of ice packs, HEP 2-3 times per day and use of FWW for amb with inst to walk every 1-2 hrs during day. Assessment Progress toward goals Pt demos good progress with all goals Plan Plan for next visit pt to be dc home today Maintain frequency no * Emilie Dean, RD - 10/11/2022 9:13 AM EST NUTRITION ASSESSMENT: POST-OP ORTHOPEDIC Nutrition Assessment Will order Ensure Max at 10am. Pt would benefit from the additional kcal, protein, vitamins, and minerals to help meet increased nutrition needs based on recent orthopedic surgery with Dr. Coronado. Recommend to continue supplementation at home for 2-4 weeks after surgery. Anthropometrics: Ht Readings from Last 1 Encounters: 10/10/22 1.651 m (5' 5 ) Wt Readings from Last 5 Encounters: 10/10/22 83.9 kg (185 lb) 09/07/22 83.5 kg (184 lb) 08/03/22 83.6 kg (184 lb 3.2 oz) Max body weight: 61.5 kg (135 lb 9.3 oz) Adjusted ideal body weight: 70.5 kg (155 lb 5.6 oz) Body mass index is 30.79 kg/m . Nutrition Intake: Current Diet Orders Procedures DIET HEART HEALTHY - 4 GM SODIUM Standing Status: Standing Number of Occurrences: 1 No Known Allergies Labs: Lab Results Component Value Date GLUCOSE 153 (H) 10/11/2022 GLUCOSE 127 (H) 09/15/2022 HGBA1C 5.3 09/15/2022 SODIUM 136 10/11/2022 POTASSIUM 3.7 10/11/2022 CALCIUM 8.4 10/11/2022 ALBUMIN 4.6 09/15/2022 TP 7.1 09/15/2022 BUN 16 10/11/2022 CREATSERUM 0.68 10/11/2022 AST 22 09/15/2022 ALT 31 09/15/2022 HGB 10.1 (L) 10/11/2022 HCT 29.8 (L) 10/11/2022 WBC 9.7 10/11/2022 RBC 3.33 (L) 10/11/2022 PMH & PSH: 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 Interventions Order Ensure Max at 10am Diet order: Heart Healthy Monitoring & Evaluation PO intake, labs, weight, ONS intake, and medical condition Emilie Dean RD LD Registered Dietitian, Licensed Dietitian 10/11/22 * Mone Watson APRN-[employer] SORTING MACHINE FEEDER - 10/11/2022 6:52 AM EST Total Joint Progress Note P O DAY # 1 PROCEDURE: l mike da SUBJECTIVE: No new symptoms or complaints PAIN RATIN/10 OBJECTIVE: Lab Results Component Value Date WBC 9.7 10/11/2022 HGB 10.1 (L) 10/11/2022 HGB 13.9 (L) 09/15/2022 HCT 29.8 (L) 10/11/2022 HCT 40.9 (L) 09/15/2022 PLATELET 146 10/11/2022 MCV 89.3 10/11/2022 Lab Results Component Value Date SODIUM 136 10/11/2022 POTASSIUM 3.7 10/11/2022 CHLORIDE 105 10/11/2022 CO2 22 10/11/2022 BUN 16 10/11/2022 BUN 12 09/15/2022 CREATSERUM 0.68 10/11/2022 CREATSERUM 0.60 (L) 09/15/2022 GLUCOSE 153 (H) 10/11/2022 Vital Signs: Vitals: 10/11/22 0305 BP: 124/72 Pulse: 77 Resp: 16 Temp: 98 F (36.7 C) Patient is alert and oriented times three. Abdomen: Soft, non-tender without organomegaly and bowel sounds are active Vascular: Dorsalis pedis/posterior tibial pulses RIGHT/LEFT/BILATERAL: Bilateral NORMAL / ABNORMAL (RESULT): Normal Neuro: Intact/deficit: intact to light touch Wound Appearance: DESCRIPTION; WOUND: incision Erythema: PRESENT OR ABSENT: absent Drainage none Dressing: Clean/dry/intact DVT Screening Exam: Calves soft/non-tender Holly hose: PRESENT OR ABSENT: present Foot pumps/ SCD's: PRESENT OR ABSENT: present Hemovac Drain Output: na mL/last shift Physical Therapy: Gait Distance: 100 Feet: ASSESSMENT: sp l mike da pod 1 PLAN: 1. PT/OT 2. IV antibiotics 3. DVT prophylaxis 4. Discharge planning DISCHARGE PLANNING: plans; post hospital: SEE SS NOTES * Juliette Thomas OT - 10/10/2022 5:43 PM EST 10/10/22 1410 Time In/Out Time In 1410 Time Out 1437 Total Visit Time 27 minutes Initial Evaluation/Screen Completed? 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 CYNTHIA (obstructive sleep apnea) Existing Precautions/Restrictions fall Previous Level of Function Bed Mobility/Transfers needs device Bathing needs device Upper Body Dressing independent Lower Body Dressing needs device Grooming independent Toileting independent Eating independent Home Management Skills needs device General Pain Documentation (Adult, OB, Peds) Presence of Pain complains of pain/discomfort Pain Location hip, left Pain Management Interventions cold application Select Pain Scale (4-5/10) Home Setting Residence House Lives With spouse First floor setup bedroom;walk-in shower Number of Stairs to Enter Home 4 Number of Stairs Within Home 0 Equipment Available wheeled walker;shower chair;elevated toilet seat;sock-aid;automated cutting machine operator;long-handled shoe horn;long handle sponge Cognitive Status Examination Orientation Status (Cognition) oriented x 4 Level of Consciousness alert Able to Follow Commands (Communication) WNL Personal Safety and Judgment intact Sensory Examination Sensory Examination WFL Range of Motion (ROM) Range of Motion Examination bilateral upper extremity ROM was WFL Manual Muscle Testing (MMT) Dominant Hand right Transfer Skill: Sit to Stand, Rehab Eval Level of Adams: Sit/Stand contact guard Physical Assist/Nonphysical Assist: Sit/Stand 1 person assist Weight-Bearing Restrictions: Sit/Stand weight-bearing as tolerated Assistive Device for Transfer: Sit/Stand wheeled walker Upper Body Dressing Level of Adams independent Physical Assist/Nonphysical Assist set-up required Lower Body Dressing Level of Adams moderate assist (50% patients effort) Physical Assist/Nonphysical Assist 1 person assist (including HOLLY hose) General Therapy Interventions Planned Therapy Interventions (OT Eval) ADL retraining;balance training;transfer training Clinical Impression Co-evaluation/co-treatment performed? Yes, combination of simultaneous billable and individual billable skilled care Patient Instruction Pt instructed on LB dressing techniques doffing surgical underwear with assistance for ABD pad placement, donning boxer brief underwear and shorts in sitting and standing CGA withplacement of ABD pad. Rehab Potential (OT Eval) good, to achieve stated therapy goals Therapy Frequency 7 times a week Today's Treatment Included Pt doing well post op, he is alert and following directions well. Pt spouse had cervical surgery and is currently in a brace, daughters will be assisting at home for a while. One who is present for this session. Pt educated on utilizing automated cutting machine operator and sock aid for LB dressing techniques Continue care plan yes Goals Goals For Discharge Pt will return home Discussed risk / benefits with patient;patient's family Therapist Recommendations At Discharge Recommendations OT Services not recommended at Discharge Plan Plan for next session continue with bathing, dressing, bathroom transfers and hygiene training Therapist Information License # [id number] 1. Pt will complete LB dressing MOD I 2. Pt will complete sponge bathing MOD I 3. Pt will complete toileting MOD I 4. Pt will complete hygiene/grooming standing at sink independent 5. Pt will complete walk in shower transfer SBA * Nancy Fox, PT - 10/10/2022 3:20 PM EST 10/10/22 1349 Time In/Out Time In 1349 Time Out 1420 Total Visit Time 31 minutes PT Therapy Completed Yes Initial Evaluation/Screen Completed? 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 CYNTHIA (obstructive sleep apnea) Past Surgical History Past Surgical History: Procedure Laterality Date BACK SURGERY 2015 x2 NECK SURGERY 2016 x2 HEART CATHETERIZATION 2007 stent x1 COLONOSCOPY DIAGNOSTIC EAR SURGERY Left titanium piece placed OTHER SURGICAL prostate biopsy Existing Precautions/Restrictions fall Left Lower Extremity weight bearing as tolerated Home Setting Residence House Lives With spouse First floor setup bedroom Number of stairs to enter home 4 Stair Railings at Home entry - with rail Mobility Equipment Available 2 wheeled walker Previous Level of Function Ambulation Skills independent Assistive Device 2 wheeled walker Level of Ambulation community General Pain Documentation (Adult, OB, Peds) Presence of Pain denies pain/discomfort Cognitive Status Examination Orientation Status (Cognition) oriented x 4 Level of Consciousness alert Able to Follow Commands (Communication) WNL Personal Safety and Judgment intact Range of Motion (ROM) Range of Motion Examination bilateral lower extremity ROM was WFL Manual Muscle Testing (MMT) Manual Muscle Testing Results deficits as listed below (L hip 4/5; L knee 4+/5) Bed Mobility Skill: Supine to Sit, Rehab Eval Level of Adams: Supine/Sit stand-by assist Physical Assist/Nonphysical Assist: Supine/Sit 1 person assist Transfer Skill: Sit To Stand, Rehab Eval Adams (Sit-Stand Transfers) contact guard Physical Assist/Nonphysical Assist: Sit/Stand 1 person assist Weight-Bearing Restrictions: Sit/Stand weight-bearing as tolerated Assistive Device For Transfer: Sit/Stand 2 wheeled walker Gait Skills, PT Eval Level of Adams: Gait contact guard Physical Assist/Nonphysical Assist: Gait 1 person assist Weight-Bearing Restrictions: Gait weight-bearing as tolerated Assistive Device For Transfer: Gait 2 wheeled walker Gait Distance 100 feet Gait Analysis, PT Eval Gait Pattern Used swing-through gait Balance Additional Documentation (Seated/Standing: Good) Sensory Examination Sensory Examination WFL Plan of Care Interventions Planned Therapy Interventions bed mobility training;edema control;endurance;gait training;strengthening;transfer training Additional Comments Pt performed glut sets, quad sets, heel slides, SAQ, and ankle pumps on the L LE for 1x10. Pt educated on sequencing for transfers and gait using FWW. Pt progressing to a swing through pattern. Assessment Assessment Narrative Pt is a 66 year old male s/p L MIKE (direct anterior). Pt doing well post op. Pt initially reporting mild pain but then continued to deny any pain. Pt with good strength and movement of the L hip. Pt hesitant with mobility initially. Pt performing mobility tasks well and safely.Pt will be safe to return home and will not require further PT services following discharge. Discharge Recommendations Pt to return home with HEP Clinical Impression Co-evaluation/co-treatment performed? Yes, combination of simultaneous billable and individual billable skilled care Criteria for Skilled Therapeutic Interventions Met (PT Eval) yes, treatment indicated Impairments Found (PT Eval) Strength;Transfers;Gait/Locomotion;Edema;Aerobic capacity/endurance Rehab Potential (PT Eval) good Therapy Frequency 7 times a week PT Therapies Still to Complete 6 Continue care plan yes Today's Treatment Included PT evaluation, ther ex, gait and patient education Therapist Recommendations At Discharge Recommendations PT Services not recommended at Discharge Plan Plan for next session Next visit progress mobility, practice car transfers and steps as able, and review/perform HEP. PT Goals: 1. Pt will perform all transfers with FWW and SBA to improve safety at home. 2. Pt will ambulate 200ft with FWW and SBA. 3. Pt will ambulate up and down 4 steps with SBA. 4. Pt will be independent with HEP per protocol. * Brittani Honeycutt RN - 10/10/2022 3:15 PM EST Patient was assessed in [facility] on 09/15/22. Met with patient, spouse and daughter for follow upafter surgery to discuss discharge plan. Patient to return home with no needs for his hip and HEP per PT after evaluation. Patient has a wheeled walker and denies any equipment needs at this time. Nursing reports that the incision has been closed with dermabond, will request a 3 week follow up appointment. Patient denies any other questions or needs at this time. Follow up appointment scheduled for 11/03/22 @ 10:40 am. * PRINCE Yo - 10/10/2022 11:43 AM EST THIS PATIENT HAS HAD ORTHOPEDIC SURGERY AND IS EXPECTED TO HAVE PAIN REQUIRING NARCOTICS FOR >7 DAYS AND MAY NEED UP TO 12 tabs of oxcodone PER DAY AND THEREFORE 30tabs ARE BEING DISPENSED IN ACCORDANCE WITH POC DISCUSSED WITH DR CORONADO. Pt to hold chronic percocet while on acute pain regimen. documented in this [facility]11-22-2022 Note* Nursing Notes - Ly Lynn RN - 10/11/2022 10:52 AM EST Assessment is complete and remains unchanged from previous at this time with any exceptions noted in the flowsheet. Patient denies further needs and is left with call light and personals in reach. Will continue to monitor. [facility]22 Hospital course Narrative* Shahzad Whiting MD - 10/11/2022 7:56 AM EST Images from the original note were not included. Discharge Summary Name: Seth Bell Age: 66 y.o. Birthday: 1955 Admit Date: 10/10/2022 6:53 AM Discharge Date: 10/11/22 Discharge Time: afternoon Discharge Unit: Med/Surg Admission Information Admitting Physician: Lazarus Coronado MD Discharge Information Discharge Physician: Shahzad Whiting MD Problem List Active Hospital Problems Diagnosis Primary osteoarthritis of left hip Resolved Hospital Problems No resolved problems to display. Brief Summary of Hospital Course for Discharge Summary: Medical Consultation Patient is a 66 yo male s/p MIKE. Doing well postoperatively. Pain controlled. Denies CP, palpitations, SOB, cough, sputum, nausea, vtg, edema. Voided and ambulated. Therapy going well. Known coronary artery disease. he is feeling well. There are no complaints relative to his heart disease. Patient is compliant with medications. he denies any side effects from medications. he denies chest pain, SOB, LAY, palpitations, orthopnea, PND, edema, headache, focal neurologic complaints, claudication. Known high blood pressure. he is feeling well. There are no complaints relative to his blood pressure. Ambulatory blood pressures are normal. Patient is compliant with medications. he denies any side effects from medications. he denies chest pain, SOB, LAY, palpitations, orthopnea, PND, edema, headache, focal neurologic complaints, claudication. Known GERD/gastritis. Symptoms are under good control. There are no side effects noted from the medication. he denies water brash, bitter or metallic taste, dysphagia, nausea, vomiting, hematemesis, melena, or black/tarry stools. Known hyperlipidemia. he is feeling well. There are no complaints relative to his lipids. Patient is compliant with medications. he denies any side effects from medications. he denies chest pain, SOB, LAY, palpitations, orthopnea, PND, edema, headache, focal neurologic complaints, claudication. Known depression. Patient denies sleep disturbance, loss of interest, guilty feelings, fatigue, poor concentration, appetite problems, anger/tearfullness, and suicidal ideations. BPH - voiding well. CYNTHIA - doing well in CPAP. General: No fever, chills, weight loss. HEENT: No sinus pain, ear pain, sore throat. Neck: No LAD. Lungs: No cough, sputum, pleuritic pain, hemoptysis, SOB. CV: No chest pain, palpitation, orthopnea, PND, edema. GI: No abd pain, nausea, vomiting, diarrhea, constipation, melena, hematochezia. : No dysuria, frequency, hematuria. Skin: No rash or lesion. Neuro: No mental status changes, headache, focal neurologic complaints. Objective: Blood pressure 109/63, pulse 63, temperature 98.2 F (36.8 C), temperature source Temporal, resp. rate 18, height 1.651 m (5' 5 ), weight 83.9 kg (185 lb), SpO2 97 %. Results for orders placed or performed during the hospital encounter of 10/10/22 [facility] - NASOPHARYNGEAL Specimen: NASOPHARYNGEAL; Fluid/Swab Result Value Ref Range SARS COV 2 RNA, QL REAL TIME RT PCR NOT DETECTED NOT DETECTED NARRATIVE -1 This test was performed using isothermal DALIA and has been approved as Emergency Use Authorization (EUA) for the qualitative detection [id number] nucleic acid. XR FLUORO < 1 HOUR OR Result Value Ref Range BSA 1.91 m2 TOXICOLOGY DRUG SCREEN, URINE Result Value Ref Range CANNABINOIDS (MARIJUANA) POSITIVE (A) NEGATIVE NG/ML Phencyclidine, S/P, Screen NEGATIVE NEGATIVE NG/ML Cocaine Metabolite NEGATIVE NEGATIVE NG/ML Methamphetamine NEGATIVE NEGATIVE NG/ML Opiates NEGATIVE NEGATIVE NG/ML Amphetamine NEGATIVE NEGATIVE NG/ML Benzodiazepines NEGATIVE NEGATIVE NG/ML TRICYCLIC ANTIDEPRESSANTS SCREEN, URINE POSITIVE (A) NEGATIVE NG/ML Methadone NEGATIVE NEGATIVE NG/ML Barbiturate NEGATIVE NEGATIVE NG/ML Oxycodone POSITIVE (A) NEGATIVE NG/ML PROPOXYPHENE NEGATIVE NEGATIVE NG/ML Buprenorphine NEGATIVE NEGATIVE NG/ML CBC, EDIF, PLATELET Result Value Ref Range WBC (WHITE BLOOD COUNT) 9.7 3.6 - 11.0 10*3/uL RBC 3.33 (L) 4.0 - 6.1 10*6/uL HEMOGLOBIN (HGB) 10.1 (L) 14.0 - 18.0 G/DL HEMATOCRIT (HCT) 29.8 (L) 42.0 - 52.0 % MEAN CELL VOLUME 89.3 80.0 - 100.0 FL Mean Cell HGB 30.2 26.0 - 35.0 PG MEAN CELL HGB CONCENTRATION 33.8 27.0 - 37.0 G/DL RBC DISTRIBUTION 12.8 11.5 - 14.5 % PLATELET COUNT 146 130.0 - 400.0 10*3/uL MEAN PLATELET VOLUME 9.3 7.4 - 11.0 FL DIFFERENTIAL TYPE AUTO DIFF % NEUTROPHILS 80.6 (H) 37.0 - 75.0 % LYMPHOCYTE 8.4 (L) 20.0 - 55.0 % MONOCYTE % 10.8 (H) 0.0 - 10.0 % EOSINOPHIL % 0.1 0.0 - 11.0 % BASOPHIL % 0.1 0.0 - 2.0 % Absolute Neutrophil Count 7.8 (H) 1.4 - 6.5 10*3/uL LYMPHOCYTES, ABSOLUTE 0.8 (L) 1.2 - 3.4 10*3/uL MONOCYTES, ABSOLUTE 1.1 (H) 0.0 - 0.7 10*3/uL ABSOLUTE EOSINOPHIL COUNT 0.0 0.0 - 0.7 10*3/uL ABSOLUTE BASOPHIL COUNT 0.0 0.0 - 0.2 10*3/uL BASIC METABOLIC PANEL Result Value Ref Range GLUCOSE 153 (H) 70 - 100 MG/DL BUN 16 7 - 20 MG/DL CREATININE SERUM 0.68 0.66 - 1.25 MG/DL SODIUM 136 136 - 145 MMOL/L POTASSIUM 3.7 3.5 - 5.1 MMOL/L CHLORIDE 105 98 - 107 MMOL/L CARBON DIOXIDE (CO2) 22 22 - 30 MMOL/L ANION GAP 9 8 - 16 MMOL/L CALCIUM 8.4 8.4 - 10.2 MG/DL ESTIMATED GFR, NON AMER 123 ml/min/1.73sq.m ESTIMATED GFR, 149 ml/min/1.73sq.m GFR COMMENT Average GFR for 60-69 years old = 85. REPEAT ABO/RH (D) TYPING Result Value Ref Range ABO/RH(D) O POSITIVE HEENT: NC/AT, PERRLA, EOMI, fundi benign, external ears normal, OP normal. Neck: No LAD/thyromegaly. No JVD/bruit. Lungs: Clear to auscultation bilaterally. No wheezes, rales, ronchi. Heart: RRR. No S3/S4. Abdomen: Soft, NT/ND, normal bowel sounds, no HSM, no bruits. Extremities: No clubbing, cyanosis, edema. Normal pulses. Neurologic: CN II-XII intact. Strength/DTR's/sensation symmetric. Cerebellar function normal. Skin: No rash or suspicious lesions. Musculoskeletal: No edema, redness, warmth, deformities. Psychiatric: Alert and oriented. Affect and mood normal. Assessment and Plan: POD #1 MIKE - pain controlled. Theroay going well. CAD - no symptoms. Continue home Rx. HTN - continue home Rx. Monitor BP's at home. GERD - continue home Rx. HLD - continue home R. Depression - stable. Home Rx. BPH - home Rx. Voiding well. CYNTHIA - continue CPAP. Shahzad Whitnig MD 10/11/2022 Brief Summary of Consults for Discharge Summary: See my note. Brief Summary of Procedures and Imaging for Discharge Summary: See operative note. Summary of last selected lab results and date obtained: Lab Results Component Value Date WBC 9.7 10/11/2022 HGB 10.1 (L) 10/11/2022 HCT 29.8 (L) 10/11/2022 PLATELET 146 10/11/2022 MCV 89.3 10/11/2022 Lab Results Component Value Date SODIUM 136 10/11/2022 POTASSIUM 3.7 10/11/2022 CHLORIDE 105 10/11/2022 CO2 22 10/11/2022 BUN 16 10/11/2022 CREATSERUM 0.68 10/11/2022 GLUCOSE 153 (H) 10/11/2022 Lab Results Component Value Date ALT 31 09/15/2022 AST 22 09/15/2022 ALKPHOS 76 09/15/2022 BILITOTAL 1.3 (H) 09/15/2022 Brief Summary of Labs for Discharge Summary: No discharge procedures on file. Current Outpatient Meds: Medication List for when you go home START taking these medications acetaminophen 325 MG tablet Take 2 tablets by mouth every 4 hours as needed for Mild Pain. Commonly known as: TYLENOL celecoxib 200 MG CAPS Take 1 capsule by mouth 2 times daily. Commonly known as: CELEBREX docusate 100 MG CAPS Take 1 capsule by mouth 2 times daily. Commonly known as: COLACE oxyCODONE 5 MG TABS Take 1-2 tabs po q 4-6 hours prn pain. Wean as tolerated. Commonly known as: ROXICODONE For diagnoses: Postoperative wound infection of left hip therapeutic multivitamin-minerals TABS Take 1 tablet by mouth at bedtime. CHANGE how you take these medications * Aspirin [address] tablet At bedtime. What changed: Another medication with the same name was added. Make sure you understand how and when to take each. * aspirin EC [address] Take 1 table twice a day for 30days. This medication is for blood clot prevention. What changed: You were already taking a medication with the same name, and this prescription was added. Make sure you understand how and when to take each. * The same medication is listed twice. Please discuss with your provider. CONTINUE taking these medications amlodipine-benazepril 5-40 MG CAPS amlodipine 5 mg-benazepril 40 mg capsule TAKE 1 CAPSULE BY MOUTH EVERY DAY Commonly known as: LOTREL atorvastatin 80 MG TABS Take 80 mg by mouth every evening. Commonly known as: LIPITOR buPROPion 300 MG tablet XL Take 300 mg by mouth daily. Commonly known as: WELLBUTRIN cyclobenzaprine 10 MG TABS Take 10 mg by mouth at bedtime. Commonly known as: FLEXERIL finasteride 5 MG TABS finasteride 5 mg tablet TAKE 1 TABLET BY MOUTH DAILY Commonly known as: PROSCAR medicinal cannabis (MEDICINAL MARIJUANA) by Unknown route. 2 puffs once daily Commonly known as: MEDICINAL MARIJUANA metoprolol succinate 50 MG tablet XL Take 50 mg by mouth daily. pm Commonly known as: TOPROL-XL omeprazole [address] capsule omeprazole 40 mg capsule,delayed release TAKE 1 CAPSULE EVERY MORNING ON AN EMPTY STOMACH followed in 30 MINUTES by BREAKFAST Commonly known as: PRILOSEC Raised Toilet Seat MISC 1 Units by Unknown route daily. For diagnoses: Aftercare following left hip joint replacement surgery Tamsulosin HCl 0.4 MG CAPS tamsulosin 0.4 mg capsule TAKE 1 CAPSULE BY MOUTH EVERY DAY Commonly known as: FLOMAX traZODone 50 MG TABS Take 50 mg by mouth at bedtime. Commonly known as: DESYREL STOP taking these medications chlorhexidine 4 % LIQD Commonly known as: HIBICLENS diclofenac EC [address] tablet Commonly known as: VOLTAREN mupirocin 2 % ointment Commonly known as: BACTROBAN oxyCODONE-acetaminophen 5-325 MG per tablet Commonly known as: PERCOCET Follow-up: No follow-up provider specified. Upcoming Appointments (up to five)-Some appointments for [facility] outpatient clinics or diagnostic testing locations are not displayed below Provider Department Dept Phone 11/03/2022 10:40 AM [facility] [phone] documented in this [facility]11-22-2022 Note* Op Note - Lazarus Coronado MD - 10/11/2022 7:33 AM EST DATE OF PROCEDURE: 10/10/2022 ATTENDING PHYSICIAN: Lazarus Coronado M.D. MANAGER OF PMO: Mone Watson CNP. PREOPERATIVE DIAGNOSES: 1. Severe left hip osteoarthritis. 2. Spinopelvic stiffness left hip. POSTOPERATIVE DIAGNOSES: 1. Severe left hip osteoarthritis. 2. Spinopelvic stiffness left hip. PROCEDURES PERFORMED: 1. Direct anterior left total hip arthroplasty. 2. Periarticular injection left hip. 3. Interpretation of intraoperative fluoroscopy left hip. ANESTHESIA: General. ANESTHESIOLOGIST: Per record. ESTIMATED BLOOD LOSS: 125 mL. COMPLICATIONS: None. INTRAVENOUS FLUIDS: Adequate. SPECIMENS: Bone. INSTRUMENTATION USED: DePuy Bimentum Press-fit cup 53 with a 28-53 PE liner, an Actis size 6 high-offset hip stem, and a Biolox delta ceramic head 28 diameter, +5 neck length, 12/14 taper. INDICATIONS: Seth is an established patient of [employer]. She is a very pleasant, 66-year-old female with a history of severe left hip pain and has been diagnosed with osteoarthritis. Patient has failedconservative management and was given the options of treatment, and elected to proceed forward withoperative intervention. For that reason then, the patient was scheduled for the procedure, for which he appears today. Upon arrival to the preoperative unit, the risks, benefits and alternatives werethoroughly explained, informed consent was verified, and the surgical site was marked. After evaluation by Anesthesia and administration of the preoperative antibiotics, the patient was then brought to the operating room. DESCRIPTION OF THE PROCEDURE: Upon arrival to the operating room, the patient was placed supine on the operating room table and general anesthetic was induced. The patient was repositioned on the Buhl table for anterior hip surgery. The operative region was then prepped and draped in a sterile standard fashion. A proper timeout was performed. I began by utilizing a direct anterior incision, starting one fingerbreadth inferior and lateral tothe ASIS. I came down over the TFL. I split the fascia in line with the original incision. I then peeled up the medial border of the fascia and bluntly dissected over the medial side of the TFL to the superior femoral neck recess. Retraction was established here with a Cobra retractor. A Jackson was used to mobilize the rectus medially off the capsule, and retraction was then established around theinferior femoral neck with a second Cobra. I then ligated the ascending femoral circumflex vessels with the Aquamantys device, and I continued with an L-shaped capsulotomy of the anterior hip capsule, which was tagged and retracted anteriorly throughout the duration of the case. Gentle traction andexternal rotation was applied and a second posterior-superior leaflet was released out of the piriformis fossa, preserving the piriformis, obturator internus, and the obturator externus tendons. Thiswas then tagged, and I then released the pubofemoral portion of the capsule down to the level of the lesser trochanter. Using this as reference, I then marked my neck cut in accordance with my preoperative template. The head and neck osteotomy was performed. The head was removed, which demonstratedsevere endstage arthritis with significant deformity and complete loss of the cartilage. The femur naturally translated posteriorly and exposure was gained about the acetabulum with a #3 retractor placed under the anterior capsule directly on the anterior wall and then a Cobra placed directly adjacent to the posterior wall. A complete labrectomy was performed and the contents of the notch were resected. I started off with a size 49 reamer and reamed up to a size 53 mm reamer. In doing so, I reamed to my templated, planned position. I then impacted a 54 mm shell at approximately 40 degrees of abduction and 10-15 degrees of anteversion, which was in line with the natural acetabularanteversion and the transverse acetabular ligament. Rim osteophytes were safely removed. Impaction and final cup position was also verified with intraoperative fluoroscopy. Following this, the wound was thoroughly irrigated and the final liner was impacted into the shell. It was free of soft tissueentrapment and verified to be secure. I then turned my attention to the proximal femur. The proximal femur was re-exposed. The lifting hook was placed with great care directly adjacent tothe bone of the proximal femur, and the leg was externally rotated, dropped into extension and slight adduction. I then manually lifted the hook to verify proper tension, and then secured its position with the Buhl table lift. With adequate exposure of the proximal femur, I then used a box osteotome in line with the posterior cortical neck. I then used a curved rasp to gain access to the canal and verify appropriate position. I then used a starting broach in line with the posterior cortical neck and increased all the way up to a size 6 high-offset broach. I was satisfied with the metaphyseal s tability of this construct, the neck height, and shoulder height and, at this point, I started off trialing head and neck options according to my preoperative template. The hook was removed and the leg was reduced. Function and stability was assessed. There was excellent stability to full extensionand external rotation to 90 degrees in both abduction and adduction. There was no impingement and no instability. There was full flexion, and at 90 degrees of flexion there was approximately 80 degrees of internal rotation without any evidence of impingement or instability. Intraoperative fluoroscopy was used to verify appropriate position, fit and fill, and recreation of leg length and offset. It matched that compared to my preoperative template. Thus, at this point, the hip was re-dislocated.The trials were removed and the final implant was impacted down to a similar place as the trial. I re-trialed the hip with a +5 neck option as I felt this best optimized length, offset, stability, and motion. I was satisfied with this and the final head/neck combination was impacted onto a clean and dried Kay taper and this was verified to be secure. The hip was then reduced and performance wasunchanged. I then turned my attention towards wound closure. The wound was thoroughly irrigated. It was soaked with Betadine soak saline solution and irrigated further. The periarticular injection was administered. A gram of vancomycin was placed deep over theimplant. I then closed the capsule with 0-Vicryl Pop-Offs. The fascia layer of the TFL was closed with #0 Quill. The subcutaneous fatty layer was closed with #0 Quill and the skin was closed with Dermabond. A sterile dressing was placed. The patient was woken up from the anesthetic, extubated and taken to the postoperative care unit in stable condition. POSTOPERATIVE PLAN OF CARE: 1. Weightbearing as tolerated, therapy to start today. 2. Antibiotics 24 hours postop. 3. DVT prophylaxis, both mechanical and chemical. 4. Follow up in the office in 2-3 weeks. Due to the patient s spinopelvic stiffness, I opted to use a dual-mobility construct as described above to reduce the long-term incidence of instability. ATTENDING/ ASSISTING PARTICIPATION: This operation could not have been safely performed (without compromising the technical results or length of the procedure) without the assistance of a skilled anesthesiology physician assistant. A anesthesiology physician assistant was medically necessary for positioning, retraction and instrum entation. [facility] Work Phone: [phone] Note* Nursing Notes - Felecia Carrera RN - 10/11/2022 2:58 AM EST Pt assessment remains unchanged. Pt c/o 8-9/10 pain to L. Hip. Pt states pain is stinging. Dilaudid given- see MAR. Pt ambulated to BR to void at this time. Ice pack changed and applied to L. Hip. Denies any further needs at this time. Call light within reach. [facility]11-22-2022 Note* Nursing Notes - Felecia Carrera RN - 10/11/2022 12:31 AM EST Pt assessment remains unchanged. Pt c/o 5/10 pain to L. Hip. Medication given - see MAR. Fresh ice pack applied to L. Hip. Denies any further needs at this time. Call light within reach. [facility]11-21-2022 Note* Nursing Notes - Felecia Carrera RN - 10/10/2022 8:29 PM EST Pt assessment complete. POC reviewed with pt. Pt states pain to L.hip is 5/10. Medication given- see MAR. Ice pack applied to L. Hip. Denies any further needs at this time. Call light within reach. [facility]11-21-2022 Consult note* Shahzad Whiting MD - 10/10/2022 6:17 PM ESTAssociated Order(s): IP CONSULT TO GENERAL MEDICINE Medical Consultation Patient is a 66 yo male s/p MIKE. He was at his baseline state of health prior to surgery. He was medically optimized by his primary care provider. Labs notable for Tox positive THC, opioids, TCA. Also Hgb 13.9, BS 127, HgbA1C 5.3. Doing well postoperatively. Pain controlled. Denies CP, palpitations, SOB, cough, sputum, nausea, vtg, edema. Voided and ambulated. Known coronary artery disease. he is feeling well. There are no complaints relative to his heart disease. Patient is compliant with medications. he denies any side effects from medications. he denies chest pain, SOB, LAY, palpitations, orthopnea, PND, edema, headache, focal neurologic complaints, claudication. Known high blood pressure. he is feeling well. There are no complaints relative to his blood pressure. Ambulatory blood pressures are normal. Patient is compliant with medications. he denies any side effects from medications. he denies chest pain, SOB, LAY, palpitations, orthopnea, PND, edema, headache, focal neurologic complaints, claudication. Known GERD/gastritis. Symptoms are under good control. There are no side effects noted from the medication. he denies water brash, bitter or metallic taste, dysphagia, nausea, vomiting, hematemesis, melena, or black/tarry stools. Known hyperlipidemia. he is feeling well. There are no complaints relative to his lipids. Patient is compliant with medications. he denies any side effects from medications. he denies chest pain, SOB, LAY, palpitations, orthopnea, PND, edema, headache, focal neurologic complaints, claudication. Known depression. Patient denies sleep disturbance, loss of interest, guilty feelings, fatigue, poor concentration, appetite problems, anger/tearfullness, and suicidal ideations. BPH - voiding well. CYNTHIA - doing well in CPAP. General: No fever, chills, weight loss. HEENT: No sinus pain, ear pain, sore throat. Neck: No LAD. Lungs: No cough, sputum, pleuritic pain, hemoptysis, SOB. CV: No chest pain, palpitation, orthopnea, PND, edema. GI: No abd pain, nausea, vomiting, diarrhea, constipation, melena, hematochezia. : No dysuria, frequency, hematuria. Skin: No rash or lesion. Neuro: No mental status changes, headache, focal neurologic complaints. 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 Types: Cigarettes Smokeless tobacco: Never Vaping Use Vaping Use: Never used Substance and Sexual Activity Alcohol use: Yes Comment: daily Drug use: Yes Types: Marijuana Comment: smokes 2 puffs every day Sexual activity: Not on file Other Topics Concern Not on file Social History Narrative Not on file Social Determinants of Health Financial Resource Strain: Not on file Food Insecurity: Not on file Transportation Needs: Not on file Physical Activity: Not on file Stress: Not on file Social Connections: Not on file Intimate Partner Violence: Not on file Housing Stability: Not on file No Known Allergies Objective: Blood pressure 129/75, pulse 82, temperature 97.8 F (36.6 C), temperature source Oral, resp. rate 15, height 1.651 m (5' 5 ), weight 83.9 kg (185 lb), SpO2 95 %. Results for orders placed or performed during the hospital encounter of 10/10/22 [facility] - NASOPHARYNGEAL Specimen: NASOPHARYNGEAL; Fluid/Swab Result Value Ref Range SARS COV 2 RNA, QL REAL TIME RT PCR NOT DETECTED NOT DETECTED NARRATIVE -1 This test was performed using isothermal DALIA and has been approved as Emergency Use Authorization (EUA) for the qualitative detection [id number] nucleic acid. XR FLUORO < 1 HOUR OR Result Value Ref Range BSA 1.91 m2 TOXICOLOGY DRUG SCREEN, URINE Result Value Ref Range CANNABINOIDS (MARIJUANA) POSITIVE (A) NEGATIVE NG/ML Phencyclidine, S/P, Screen NEGATIVE NEGATIVE NG/ML Cocaine Metabolite NEGATIVE NEGATIVE NG/ML Methamphetamine NEGATIVE NEGATIVE NG/ML Opiates NEGATIVE NEGATIVE NG/ML Amphetamine NEGATIVE NEGATIVE NG/ML Benzodiazepines NEGATIVE NEGATIVE NG/ML TRICYCLIC ANTIDEPRESSANTS SCREEN, URINE POSITIVE (A) NEGATIVE NG/ML Methadone NEGATIVE NEGATIVE NG/ML Barbiturate NEGATIVE NEGATIVE NG/ML Oxycodone POSITIVE (A) NEGATIVE NG/ML PROPOXYPHENE NEGATIVE NEGATIVE NG/ML Buprenorphine NEGATIVE NEGATIVE NG/ML REPEAT ABO/RH (D) TYPING Result Value Ref Range ABO/RH(D) O POSITIVE HEENT: NC/AT, PERRLA, EOMI, fundi benign, external ears normal, OP normal. Neck: No LAD/thyromegaly. No JVD/bruit. Lungs: Clear to auscultation bilaterally. No wheezes, rales, ronchi. Heart: RRR. No S3/S4. Abdomen: Soft, NT/ND, normal bowel sounds, no HSM, no bruits. Extremities: No clubbing, cyanosis, edema. Normal pulses. Neurologic: CN II-XII intact. Strength/DTR's/sensation symmetric. Cerebellar function normal. Skin: No rash or suspicious lesions. Musculoskeletal: No edema, redness, warmth, deformities. Psychiatric: Alert and oriented. Affect and mood normal. Assessment and Plan: POD #0 MIKE - pain Rx, therapy, and anticoagulation per ortho. CAD - no symptoms. Monitor clinically. HTN - home Rx. Monitor BP's and labs. GERD - home Rx also for GI prophylaxis. HLD - home Rx and monitor clinically. Depression - stable. Home Rx. BPH - home Rx and monitor voiding. CYNTHIA - sleep apnea. Shahzad Whiting MD 10/10/2022 [facility]11-21-2022 Consult note* Shahzad Whiting MD - 10/10/2022 6:17 PM ESTAssociated Order(s): IP CONSULT TO GENERAL MEDICINE Medical Consultation Patient is a 66 yo male s/p MIKE. He was at his baseline state of health prior to surgery. He was medically optimized by his primary care provider. Labs notable for Tox positive THC, opioids, TCA. Also Hgb 13.9, BS 127, HgbA1C 5.3. Doing well postoperatively. Pain controlled. Denies CP, palpitations, SOB, cough, sputum, nausea, vtg, edema. Voided and ambulated. Known coronary artery disease. he is feeling well. There are no complaints relative to his heart disease. Patient is compliant with medications. he denies any side effects from medications. he denies chest pain, SOB, LAY, palpitations, orthopnea, PND, edema, headache, focal neurologic complaints, claudication. Known high blood pressure. he is feeling well. There are no complaints relative to his blood pressure. Ambulatory blood pressures are normal. Patient is compliant with medications. he denies any side effects from medications. he denies chest pain, SOB, LAY, palpitations, orthopnea, PND, edema, headache, focal neurologic complaints, claudication. Known GERD/gastritis. Symptoms are under good control. There are no side effects noted from the medication. he denies water brash, bitter or metallic taste, dysphagia, nausea, vomiting, hematemesis, melena, or black/tarry stools. Known hyperlipidemia. he is feeling well. There are no complaints relative to his lipids. Patient is compliant with medications. he denies any side effects from medications. he denies chest pain, SOB, LAY, palpitations, orthopnea, PND, edema, headache, focal neurologic complaints, claudication. Known depression. Patient denies sleep disturbance, loss of interest, guilty feelings, fatigue, poor concentration, appetite problems, anger/tearfullness, and suicidal ideations. BPH - voiding well. CYNTHIA - doing well in CPAP. General: No fever, chills, weight loss. HEENT: No sinus pain, ear pain, sore throat. Neck: No LAD. Lungs: No cough, sputum, pleuritic pain, hemoptysis, SOB. CV: No chest pain, palpitation, orthopnea, PND, edema. GI: No abd pain, nausea, vomiting, diarrhea, constipation, melena, hematochezia. : No dysuria, frequency, hematuria. Skin: No rash or lesion. Neuro: No mental status changes, headache, focal neurologic complaints. 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 CYNTHIA (obstructive sleep apnea) Past Surgical History: Procedure Laterality Date BACK SURGERY 2015 x2 NECK SURGERY 2016 x2 HEART CATHETERIZATION 2007 stent x1 COLONOSCOPY DIAGNOSTIC EAR SURGERY Left titanium piece placed OTHER SURGICAL prostate biopsy Social History Socioeconomic History Marital status: Spouse name: Not on file Number of children: Not on file Years of education: Not on file Highest education level: Not on file Occupational History Not on file Tobacco Use Smoking status: Former Years: 25.00 Types: Cigarettes Smokeless tobacco: Never Vaping Use Vaping Use: Never used Substance and Sexual Activity Alcohol use: Yes Comment: daily Drug use: Yes Types: Marijuana Comment: smokes 2 puffs every day Sexual activity: Not on file Other Topics Concern Not on file Social History Narrative Not on file Social Determinants of Health Financial Resource Strain: Not on file Food Insecurity: Not on file Transportation Needs: Not on file Physical Activity: Not on file Stress: Not on file Social Connections: Not on file Intimate Partner Violence: Not on file Housing Stability: Not on file No Known Allergies Objective: Blood pressure 129/75, pulse 82, temperature 97.8 F (36.6 C), temperature source Oral, resp. rate 15, height 1.651 m (5' 5 ), weight 83.9 kg (185 lb), SpO2 95 %. Results for orders placed or performed during the hospital encounter of 10/10/22 [facility] - NASOPHARYNGEAL Specimen: NASOPHARYNGEAL; Fluid/Swab Result Value Ref Range SARS COV 2 RNA, QL REAL TIME RT PCR NOT DETECTED NOT DETECTED NARRATIVE -1 This test was performed using isothermal DALIA and has been approved as Emergency Use Authorization (EUA) for the qualitative detection [id number] nucleic acid. XR FLUORO < 1 HOUR OR Result Value Ref Range BSA 1.91 m2 TOXICOLOGY DRUG SCREEN, URINE Result Value Ref Range CANNABINOIDS (MARIJUANA) POSITIVE (A) NEGATIVE NG/ML Phencyclidine, S/P, Screen NEGATIVE NEGATIVE NG/ML Cocaine Metabolite NEGATIVE NEGATIVE NG/ML Methamphetamine NEGATIVE NEGATIVE NG/ML Opiates NEGATIVE NEGATIVE NG/ML Amphetamine NEGATIVE NEGATIVE NG/ML Benzodiazepines NEGATIVE NEGATIVE NG/ML TRICYCLIC ANTIDEPRESSANTS SCREEN, URINE POSITIVE (A) NEGATIVE NG/ML Methadone NEGATIVE NEGATIVE NG/ML Barbiturate NEGATIVE NEGATIVE NG/ML Oxycodone POSITIVE (A) NEGATIVE NG/ML PROPOXYPHENE NEGATIVE NEGATIVE NG/ML Buprenorphine NEGATIVE NEGATIVE NG/ML REPEAT ABO/RH (D) TYPING Result Value Ref Range ABO/RH(D) O POSITIVE HEENT: NC/AT, PERRLA, EOMI, fundi benign, external ears normal, OP normal. Neck: No LAD/thyromegaly. No JVD/bruit. Lungs: Clear to auscultation bilaterally. No wheezes, rales, ronchi. Heart: RRR. No S3/S4. Abdomen: Soft, NT/ND, normal bowel sounds, no HSM, no bruits. Extremities: No clubbing, cyanosis, edema. Normal pulses. Neurologic: CN II-XII intact. Strength/DTR's/sensation symmetric. Cerebellar function normal. Skin: No rash or suspicious lesions. Musculoskeletal: No edema, redness, warmth, deformities. Psychiatric: Alert and oriented. Affect and mood normal. Assessment and Plan: POD #0 MIKE - pain Rx, therapy, and anticoagulation per ortho. CAD - no symptoms. Monitor clinically. HTN - home Rx. Monitor BP's and labs. GERD - home Rx also for GI prophylaxis. HLD - home Rx and monitor clinically. Depression - stable. Home Rx. BPH - home Rx and monitor voiding. CYNTHIA - sleep apnea. Shahzad Whiting MD 10/10/2022 [facility]* Nursing Notes - Ly Lynn RN - 10/10/2022 3:22 PM EST Assessment is complete and remains unchanged from previous at this time with any exceptions noted in the flowsheet. Patient denies further needs and is left with call light and personals in reach. Will continue to monitor. [facility] Hospital Discharge instructions* Discharge Instructions* Keira Qiu RN - 10/10/2022 2:48 PM EST You have been given printed educational handouts on all new medications. Please refer to your greendischarge folder for handouts. You have been given seven ABD pads, one ice gel compression wrap, six ice gel packs, two pairs of HOLLY hose and all personal belongings. If at any time you have questions please refer to your green discharge folder with all at home care instructions. Holly Hose: > Help reduce the risk of blood clots and decrease swelling > To be worn bilaterally to the lower extremities for 30 days post-op > You are able to take your HOLLY hose off for 1 hour for every 8 hours that they wear them Medications: > You have been sent home with prescriptions, including medication for pain to be taken as directed. Stay ahead and do not allow your pain to get out of control. > If prescribed Aspirin, take twice a day for 30 days. Do not skip a dose, this is your medication for the prevention of blood clots. > If you have not had a bowel movement by your 3rd post-operative day you will need to use a gentle over the counter laxative such as Milk of magnesia, Fiberlax, Miralax, etc. Bowels need to move within 3 days or take action. Gel Ice Packs > Change every 4 hours or as needed for swelling and pain for at least the first 2 weeks Ambulation > Weight bearing status : weight bearing as tolerated For Direct Anterior Total Hip Replacement: > No formal physical therapy, walking is the patients best therapy, unless otherwise noted. Anesthesia Precautions & Expectations: After anesthesia, rest for [address], drink alcoholic beverages or make any important decisions during this time. General anesthesia may cause a sore throat, jaw discomfort or muscle aches. These symptoms can last for one or two days. If you have been discharged the same day as surgery, Dr. Coronado's office will call you the morning after your discharge to follow up with how your recovery is progressing at home. * Discharge Instr - Activity* Keira Qiu RN - 10/10/2022 2:47 PM EST Ambulate with wheeled walker until follow up appointment or directed by Dr. Coronado. * Discharge Instr - Diet* Keira Qiu RN - 10/10/2022 2:47 PM EST Resume home diet as tolerated. * Discharge Instr - Notify* Keira Qiu RN - 10/10/2022 2:47 PM EST Contact Office ([phone]) if: > Total Knee ROM < 90 degrees upon admission to home health or at any time during recovery period > Any falls or injuries > Redness, drainage or swelling at the incision site that is out of the ordinary from post-operative findings (minor redness, swelling and warmth around the entire knee are common post-operatively) > Patient non-compliance with assistive devices during gait > Fever > 101 degrees. For low grade fevers use Incentive Spirometry @ 10 puffs per hour and tylenol as directed. * Discharge Instr - Wound Care* Keira Qiu RN - 10/10/2022 2:47 PM EST Your incision is closed with Dermabond. You may shower with this. Do not saturate or submerge extremity in water (i.e. Bathtub, hot tub, etc.) until cleared by the provider. Do not wash/scrub directly over/on your incision. Pat your incision dry do not rub your incision with a towel. Do not place any lotions, ointments, creams or powder on your incision or operative leg. When applying your new ABD pad after showering as a reminder do not place any tape over you ABD pad. Your underwear are to hold your pad in place. * Attachments The following attachments cannot be sent through Care Everywhere. * celecoxib (Namibian) * docusate (oral/rectal) (Namibian) * oxycodone (Namibian) documented in [facility] encounter[facility] Note* Nursing Notes - Ly Lynn RN - 10/10/2022 1:00 PM EST Report received from SECURITY RESEARCHER. Patient hooked up to tele and vitals at this time. Call light within reach and bed in low position. [facility]11-[facility] Nurse Note* Diamond Barillas RN - 10/10/2022 12:45 PM EST Discharged from PACU in stable condition. Transported via bed to room 3754 Bed placed in lowest position. Call light within reach. Report given to Jared GUTIERREZ documented in this encounterMem[facility] Nurse Surgical operation note* Diamond Barillas RN - 10/10/2022 12:45 PM EST Discharged from PACU in stable condition. Transported via bed to room 3754 Bed placed in lowest position. Call light within reach. Report given to Jared RN [facility]11-21-2022 Note* Brief Op Note - PRINCE Yo - 10/10/2022 11:42 AM EST POST OPERATIVE/PROCEDURE NOTE Seth Bell 66 y.o. male [id number] SURGEON Surgeon(s) and Role: * Lazarus Coronado MD - Primary MANAGER OF PMO PRINCE Yo ANESTHESIOLOGIST TRANSMITTER ENGINEER: MERRY Rodriguez SURGICAL STAFF Emt Dispatcher: Imelda Gilbert RN; Lisa Bueno RN Nurse Practitioner: PRINCE Yo Inspector Plating: Don Snider; Refugio De Leon PROCEDURE PERFORMED Procedure(s) (LRB): ARTHROPLASTY HIP TOTAL DA - LEFT * covid test o/a* (Left) Left hip periarticular injection intraop interpretation of fluoroscopy PRIMARY CLOSURE yes ANESTHESIA (type of) * No anesthesia type entered * ESTIMATED BLOOD LOSS 125 DRAINS noen BLOOD PRODUCTS None PRE OPERATIVE DIAGNOSIS Primary osteoarthritis of left hip [M16.12] POST OPERATIVE DIAGNOSIS Primary osteoarthritis of left hip [M16.12] FINDINGS Severe oa hip CONDITION OF PATIENT Stable COMPLICATION No complications GRAFTS AND/OR IMPLANTS Implant Name Type Inv. Item Serial No. Financial Center Manager Lot No. LRB No. Used Action bi mentum press fit cup [id number] Left 1 Implanted femoral stem sz 6 DEPUY [id number] Left 1 Implanted femoral head 28mm [employer] [id number] Left 1 Implanted bi mentum liner [employer] [id number] Left 1 Implanted SPECIMENS ID Type Source Tests Collected by Time Destination 1 : left femoral head Permanent TISSUE SURGICAL PATHOLOGY REQUEST Lazarus Coronado MD 10/10/2022 1045 Mone Watson APRN-CRAYON SORTING MACHINE FEEDER October 10, 2022 11:42 AM [facility] [employer] [id number] Note* Nursing Notes - Brittani Honeycutt RN - 09/15/2022 10:07 AM EDT 09/15/22 1004 Information Source Information Source patient ;child Contact Information [employer] Name Brittani Honeycutt RN Case Manager's Living Environment Lives With spouse Living Arrangements house (One story home with basement) Provides Primary Care For no one Primary Care Provided By self Support System Immediate family Able to Return to Prior Arrangements yes Employment/Financial Employed? Retired Cognitive/Perceptual/Developmental Current Mental Status/Cognitive Functioning no deficits noted Recent Changes in Mental Status/Cognitive Functioning no changes Developmental Stage Stage 8 (65 years-/Late Adulthood) Integrity vs. Despair Emotional/Psychological Affect no deficits noted Mood congruent to situation Verbal Skills no deficits noted Current Interpersonal Conduct/Behavior appropriate to situation Mental Health Conditions/Symptoms anxiety disorder Thought Process Alterations no deficits noted Previous Mental Health Treatment medication (Patient states that medication is effective) Referral Information Referral Source physician CM met with patient and daughter on this date to discuss post-surgical discharge plans. Patient states that he plans to return home with no needs for his hip. He states that his spouse recently had neck surgery and will also be recovering. Patient's two daughters will be providing assistance after surgery. Patient has a wheeled walker, instructed to bring with him on the day of surgery. He states that he also has a shower bench and elevated toilet seat. Patient denies any other questions or needs at this time. CM to continue to follow and assist with discharge plans. Karisma Kidz [id number] History of Present illness Narrative* Sneha Busby LPN - 08/03/2022 2:10 PM EDT Ortho Nurse - Patient Intake Room#: 1--Visit today to evaluate left hip pain. He has had pain for over 3-4 months. He had no falls or injury to this area. His pain today is a 7. He has had no treatment for this hip in the past. Date: 08/03/2022 2:26 PM Patient: Seth Bell MR#: [id number] : 1955 Age: 66 y.o. Referring Physician: Rosangela Burnham DO Insurance: Payor: MEDICARE / Plan: MEDICARE A AND B / Product Type: *No Product type* / Chief Complaint Patient presents with Left Hip - Pain, New Patient Visit Vitals Temp 97 F (36.1 C) (Temporal) Ht 1.651 m (5' 5 ) Wt 83.6 kg (184 lb 3.2 oz) BMI 30.65 kg/m Pain Presence of Pain: complains of pain/discomfort Pain Location: hip, left Select Pain Scale: DVPRS (Defense and Veterans Pain Rating Scale) (Adult- Cognitively Intact) Pain Location: hip, left Select Pain Scale: DVPRS (Defense and Veterans Pain Rating Scale) (Adult- Cognitively Intact) Recent Labs No results found for: CRP No results found for: SEDRATE No results found for: WBC, WBCCOUNT, WBCFETAL, HGB, HCT, PLATELET, MCV History Past Medical History: Diagnosis Date Arthritis CAD (coronary artery disease) Depression Essential hypertension, benign CYNTHIA (obstructive sleep apnea) Past Surgical History: Procedure Laterality Date BACK SURGERY 2016 NECK SURGERY 2016 Family History: His family history is not on file. Social History: His reports that he has quit smoking. His smoking use included cigarettes. He quit after 25.00 years of use. He does not have any smokeless tobacco history on file. He reports currentalcohol use. He reports that he does not use drugs. Additional Social History Y N Notes Do you live alone? [] [x] Who lives with you: Do you have children? [x] [] How many: 3 Do you currently work? [] [x] What type of work do you do: Do you have stairs in the home? [x] [] How many do you have to climb to enter your home: 4 What services do you currently receive at home? [] [x] Name: Do you have transportation to go to outpatient therapy if needed? [x] [] What Equipment do you have at home? [x] [] [x]Walker, []Crutches, []Commode Chair, [x]Shower []Chair, [x]cane, []bracing Are you followed by a placing judge? [x] [] Name: [facility] cariology group Are you followed by pain management? [x] [] Name: Dr. Dunn--Har[place] Are you followed by any other specialists? [] [x] Name: Outpatient Medications Prior to Visit Medication Sig Dispense Refill amlodipine-benazepril 5-40 MG capsule amlodipine 5 mg-benazepril 40 mg capsule TAKE 1 CAPSULE BY MOUTH EVERY DAY Aspirin [address] tablet At bedtime. atorvastatin 80 MG tablet Take 80 mg by mouth every evening. buPROPion 300 MG tablet XL Take 300 mg by mouth daily. diclofenac EC [address] tablet TAKE 1 TABLET BY MOUTH TWICE DAILY with food finasteride 5 MG tablet finasteride 5 mg tablet TAKE 1 TABLET BY MOUTH DAILY metoprolol succinate 50 MG tablet XL metoprolol succinate ER 50 mg tablet,extended release 24 hr Take 1 tablet by mouth daily oxyCODONE-acetaminophen 5-325 MG per tablet Take 1 tablet by mouth every 6 hours as needed. Tamsulosin HCl 0.4 MG capsule tamsulosin 0.4 mg capsule TAKE 1 CAPSULE BY MOUTH EVERY DAY traZODone 50 MG tablet Take 50 mg by mouth at bedtime. No facility-administered medications prior to visit. Allergies: He has no allergies on file. Y N Are you allergic to any metals? [] [x] If yes, what metals: Review of Systems System Y N Symptoms Constitutional [] [x] Weight Loss [] [x] Weight Gain [] [x] Chronic Fever [] [x] Insomnia Eyes [] [x] Resent Vision Change [] [x] Cataracts [] [x] Glaucoma [] [x] Any Hx of Metal Fragments in the Eye ENT [x] [] Loss of hearing [] [x] Hearing Aids [] [x] Seasonal Allergies [] [x] Dental Issues Cardiovascular [] [x] Chest Pain [] [x] Angina [x] [] Stent -1 [x] [] Hypertension [] [x] Heart Murmur [] [x] Irregular Pulse [] [x] Pacemaker [] [x] Palpitations [] [x] High cholesteral Respiratory [] [x] Wheezing [] [x] Shortness of Breath [] [x] Pneumonia [] [x] Bronchitis [x] [] Sleep Apnea [] [x] COPD [] [x] Date/ LOC of last CXR: Gastrointestinal [] [x] Heartburn [] [x] Indigestion [] [x] Constipation [] [x] Ulcer [] [x] GI Stomach Bleed [] [x] Diarrhea [] [x] Colon Cancer [] [x] Acid Reflux [] [x] Blood in Stools Musculoskeletal [x] [] Arthritis [] [x] Muscle Weakness [x] [] Joint Pain [x] [] Back Pain [] [x] Fibromyalgia [] [x] Bone Infection [] [x] Swelling - Multiple Joints [] [x] Reflex Sympathetic Dystrophy Skin [] [x] Chronic Rash [] [x] Ulcers [] [x] Eczema [] [x] Psoriasis [] [x] Skin Cancer [] [x] Melanoma Neurologic [] [x] Numbness [] [x] Weakness or loss of sensation in arms or legs [] [x] Leg Pain / Sciatica [] [x] Headaches [] [x] Loss of bowel or bladder control Psychiatric [x] [] Anxiety [] [x] Claustrophobia [] [x] Other Psychiatric Problems Hematologic [] [x] Easy Bruising [] [x] Easy Bleeding [] [x] Blood Transfusion Date: Endocrine [] [x] Hypothyroid [] [x] Hyperthyroid [] [x] Hot Flashes [] [x] Hormone Replacement [] [x] Prednisone Use Does pt have dentures? no * Lazarus Coronado MD - 08/03/2022 2:10 PM EDT HPI: Patient is here today for evaluation of his left hip pain. He is a new patient for me. He is here today as a referral from Dr. Burnham for consideration of direct anterior approach. A pleasant 66 y.o. male with a history of progressive decline, physical function and decreased quality of life secondary to the hip pain over the past 3-4 months. He presents with a highly complex array of symptoms upon exam today. He is experiencing locking, popping, catching and clicking. He has weakness, pain and instability. He uses a walker for his unpredictable ambulation. He takes Tylenol PRN. He has completed formal physical therapy without success. He denies past falls, accidents or injuries. The pain is 7 on a 10-point scale. He no longer enjoys his hobbies and is not able to stay physical active as he so desires. At this time, he is weary of his symptoms and is here today for evaluation and to discuss scheduling a left total hip arthroplasty for optimal custodial management. PHYSICAL EXAM: This is an alert, oriented, and age-appropriate male. He is in no distress. Pleasantand cooperative. EXTREMITIES: The upper extremities have no gross deformity. Normal stability. 5/5 motor. Intact sensation. Normal coordination. Skin intact. Lower extremities have no gross deformity. Normal stability. 5/5 motor. Intact sensation. Normal coordination. Skin intact. Left hip demonstrates 4/5 with increased pain with rotation and flexion. Groin pain. Slow, antalgic gait. Externally rotated left foot. Painful range of motion. Contralateral hip has full and supple motion. No pain. No impingement. No instability. Normal neurovascular status in lower extremities bilaterally. IMAGING: Plain film radiographs were reviewed. There is severe arthritis to left hip, loss of jointspace, subchondral sclerosis, osteophyte formation, and [id number] contact. Available radiographsfrom 08/2021 appeared normal. IMPRESSION: 1.) Severe symptomatic end-stage arthritis, left hip 2.) Spinopelvic stiffness. 3.) Extensive back history. PLAN: We have discussed in great detail the nature of the diagnosis, the natural history and expected progression which is likely worsening pain, instability with risks of falls, and additional jointwear and or bone loss. We have discussed the options for treatment including both conservative and operative treatments. We have discussed the risks, benefits, and alternatives to each treatment. Seth is interested in surgical management in the form of a left direct anterior total hip replacement. Seth understands that the potential benefits are reduced pain, improved stability and improved function. Seth also understands that the major life or limb threatening risks include, but are not limited to: bleeding, infection, neurovascular injury including foot drop or paralysis, dislocation,component failure, implant loosening, leg length inequality, ligament or tendon disruption, fracture, stiffness, chronic pain, chronic limp, chronic disability, need for further surgery, blood clots in the extremities or lungs, stroke, heart attack, loss of limb, and ultimately loss of life. termination clerk expectations, risks and general implant survivorship were also discussed. Despite these risks, the patient would like to proceed with surgical planning. Today, we will initiate the pre-surgical process including nasal MRSA screening, scheduling an appointment for [facility] and the potential surgical date, and reviewing and signing the consent forms. Sit/stand films were also taken today for presurgical planning purposes. I have reviewed the findings of my clinical staff below and agree with their assessment. Vitals: 08/03/22 1413 Temp: 97 degrees F (36.1 degrees C) TempSrc: Temporal Weight: 83.6 kg (184 lb 3.2 oz) Height: 1.651 m (5' 5 ) Pain Presence of Pain: complains of pain/discomfort Pain Location: hip, left Select Pain Scale: DVPRS (Defense and Veterans Pain Rating Scale) (Adult- Cognitively Intact) Pain Location: hip, left Select Pain Scale: DVPRS (Defense and Veterans Pain Rating Scale) (Adult- Cognitively Intact) Recent Labs No results found for: CRP No results found for: SEDRATE No results found for: WBC, WBCCOUNT, WBCFETAL, HGB, HCT, PLATELET, MCV Past Medical History: Diagnosis Date Arthritis CAD (coronary artery disease) Depression Essential hypertension, benign CYNTHIA (obstructive sleep apnea) Past Surgical History: Procedure Laterality Date BACK SURGERY 2016 NECK SURGERY 2016 No family history on file. Social History Socioeconomic History Marital status: Tobacco Use Smoking status: Former Smoker Years: 25.00 Types: Cigarettes Vaping Use Vaping Use: Never used Substance and Sexual Activity Alcohol use: Yes Comment: daily Drug use: Never Current Outpatient Medications: amlodipine-benazepril 5-40 MG capsule, amlodipine 5 mg-benazepril 40 mg capsule TAKE 1 CAPSULE BY MOUTH EVERY DAY, Disp: , Rfl: Aspirin [address] tablet, At bedtime., Disp: , Rfl: atorvastatin 80 MG tablet, Take 80 mg by mouth every evening., Disp: , Rfl: buPROPion 300 MG tablet XL, Take 300 mg by mouth daily., Disp: , Rfl: diclofenac EC [address] tablet, TAKE 1 TABLET BY MOUTH TWICE DAILY with food, Disp: , Rfl: finasteride 5 MG tablet, finasteride 5 mg tablet TAKE 1 TABLET BY MOUTH DAILY, Disp: , Rfl: metoprolol succinate 50 MG tablet XL, metoprolol succinate ER 50 mg tablet,extended release 24 hr Take 1 tablet by mouth daily, Disp: , Rfl: oxyCODONE-acetaminophen 5-325 MG per tablet, Take 1 tablet by mouth every 6 hours as needed., Disp:, Rfl: Tamsulosin HCl 0.4 MG capsule, tamsulosin 0.4 mg capsule TAKE 1 CAPSULE BY MOUTH EVERY DAY, Disp: ,Rfl: traZODone 50 MG tablet, Take 50 mg by mouth at bedtime., Disp: , Rfl: Not on File documented in this [facility]09-01-2022 NoteCONSULTATION CONSULTATION DATE: 07/21/2022 HISTORY OF PRESENT ILLNESS: This is a pleasant, 66-year-old gentleman returning to the clinic for a three month follow up for his chronic lower back pain. He was last seen on 03/31/2022 which, at that time, he received right sided lumbar trigger point injections. Patient reports today that it was very, very helpful and it allowed him to go camping this summer with less pain. His main complaint today is left hip pain, which he rates 7/10. He has seen Dr. Burnham who plans to do a right knee replacement, but prior to doing that, the patient is in need of a left hip evaluation. He has a pending appointment on 08/18/[address] Lazarus Coronado at [facility], with the intention of moving forward with a left total hip replacement. He was referred to this physician due to needed an anterior approach. Medications include diclofenac 75 mg b.i.d., trazodone 50 mg q.h.s. Flexeril 10 mg q.h.s. and Percocet 5/325 t.i.d. p.r.n. He has no back complaints today and denies any new vasomotor weakness or radicular pain. Patient's REVIEW OF SYSTEMS / PAST MEDICAL HISTORY / ALLERGIES and IMAGES have been reviewed and they are noted on the chart. PHYSICAL EXAM: VITAL SIGNS: Blood pressure 126/80, heart rate is 65. Temperature is 97.8. He is 5'5 and weighs 85 kg. GENERAL APPEARANCE: Pleasant, appropriate, in no acute distress. FOCUSED EXAM - BACK: Range of motion is functional in lateral rotation and flexion/extension. No reproduction of spinal axial pain to posterior compression along the lumbar facets. Rodger's point is non-tender bilaterally. FABERs and compression tests are negative. MUSCULOSKELETAL: Motor is intact, 4/5 bilaterally. Patient does have diffuse muscle atrophy to his lower extremities. He does walk with an antalgic gait, weakness noted to left lower extremity secondary to left hip pathology. NEUROLOGICAL: Radicular sensory is intact. Negative polyneuropathy. Patellar and Achilles reflexes are intact. DIAGNOSIS: Lumbar spondylosis, lumbar degenerative disc disease, left hip osteoarthritis. PLAN: Overall, the patient is doing quite well in regards to the back. He is to continue with his heat and menthol rub to his back, in addition to his seated stretches which were demonstrated. He will receive a U-Tox in the office today. Patient was asked to call the office following his appointment with Dr. Coronado in [place] regarding his hip consultation. He will be seen in the clinic in three months' time unless otherwise indicated.[facility] [id number] NotePROCEDURE DETAILS Preoperative Diagnosis: 1. Conductive hearing loss 2. Otosclerosis Postoperative Diagnosis: 1. Conductive hearing loss 2. Otosclerosis Surgeon: Bob Resident/Fellow/Other Inspector And Tester: Zeenat Procedure: 1. Left stapedectomy Estimated Blood Loss: 5 Findings: 1. Stapes fixed with evidence of otosclerosis around footplate 2. 4.75mm x 0.6mm stapes prosthesis 3. Small marginal perforation reconstructed with biodesign Specimens(s) Collected: no, Operative Report: Pre-operative diagnosis: Left conductive hearing loss Post-operative diagnosis: Left non-obliterative otosclerosis Procedure: Left stapedectomy with use of argon laser Microsurgical techniques requiring use of operating microscope. Surgeon: Jamie Rojas MD Inspector And Tester surgeon: Leila Epperson MD Anesthesia: General Endotracheal. Estimated blood loss: 2 ml. History: The patient was referred to the practice for evaluation of Left progressive hearing loss. There was no pertinent past otological history. The physical examination showed an intact tympanic membrane. His audiogram showed a Left -sided conductive hearing loss, with absent reflexes. The presumed diagnosis was otosclerosis. Options for hearing rehabilitation were discussed and included hearing amplification or stapedectomy. The patient elected to undergo stapes surgery. The risks discussed included but were not limited to bleeding, infection with labyrinthitis, persistent or worsening hearing loss, tinnitus, dizziness, taste disturbance, tympanic membrane perforation and rarely iatrogenic cholesteatoma. Operative findings: the malleus and incus were mobile. The stapes was fixed. A small fenestra stapedotomy was done using the argon laser. A 4.75 x 0.6 mm, an Eclipse 360, nitinol-based piston was placed and crimped onto the incus. Gentle palpation confirmed adequate mobility. There was a small marginal perforation in the posterior inferior tympanic membrane reconstructed with Biodesign. Operative procedure: The patient was seen in the pre-operative area. The informed consent was signed, and the correct side was marked. the patient was then taken back to the operative suite and laid on the operative table. A time-out was completed according to the protocol. General anesthesia was induced, and endotracheal intubation was done. The endotracheal tube was secured. The table was tilted 180 degrees. The patient was strapped to the surgical bed. The operative ear was exposed and prepped and draped using the standard sterile techniques. An appropriately sized ear speculum was introduced in the ear canal and the operative microscope was brought into the field and utilized throughout the procedure to provide high-powered magnification. Four-quadrant canal injection was done with a mixture of 1% lidocaine and 1/100.000 epinephrine. An anteriorly based tympanomeatal flap was elevated. The flap was very thin and the there was evidence of a foreign body embedded within the canal skin inferiorly, just lateral to the tympanic membrane. This was removed with a aviles pick and appeared to be fragments of glass. The tympanic annulus was visualized and elevated and the middle ear was exposed by elevating the annulus circumferentially. The posterior malleolar ligament was lysed, and the chorda tympani was dissected off the undersurface of the drum. The malleus and incus were palpated and noted to be mobile. The stapes was gently palpated and the footplate were fixed confirming the diagnosis. A focus of otosclerosis was seen along the anterior annular ligament. Bone was removed from the scutum with a curette and 0.7mm donny drill. The incudo-stapedial joint was then . The argon laser was utilized to vaporize the stapedial tendon and the posterior dangelo. Then, the stapes superstructure was down fractured and removed. The distance between the incus and footplate was measured. Using the laser, a dallin was created in the footplate. The small fenestration was created with a 0.7 mm fluted microdrill. A 4.75 x 0.6 mm, 360-degree Eclipse nitinol-based piston [place] [employer] [place] was then placed and crimped onto the long process using the laser at low thermal energy. Adequate mobility of the prosthesis with movement in and out of the vestibule was confirmed by gently palpating the incus. A blood patch obtained in a sterile fashion was placed in the middle ear and the tympanomeatal flap was laid back to its original position. There was a small marginal perforation of the posterior-inferior aspect of the tympanic membrane that was repaired with Biodesign underlay. The tympanomeatal flap was returned to its original position and the entirety of the peroforation was covered. Gelfoam was placed in the canal to pack the flap. The table was then rotated back to the anesthesiologist and the patient was awakened and tr (more content not included)...[facility] 05-11-2022 NoteHistory & Physical Reviewed: I have reviewed the History and Physical dated: 11-May-2022 History and Physical reviewed and relevant findings noted. Patient examined to review pertinent physical findings.: No significant changes Home Medications Reviewed: no changes noted Allergies Reviewed: no changes noted ERAS (Enhanced Recovery After Surgery): ERAS Patient: no Consent: COVID-19 Consent: COVID-19 Risk ConsentSurgeon has reviewed cates risks related to the risk of cal COVID-19 and if they contract COVID-19 what the risks are. Electronic Signatures: Jamie Rojas) (Signed 11-May-2022 10:07) Authored: History & Physical Reviewed, ERAS, Consent, Note Completion Last Updated: 11-May-2022 10:07 by Jamie Rojas)[facility]04-28-2022 NoteDiagnoses/Problems Blood tests prior to treatment or procedure (V72.63) (Z01.812) Mixed hearing loss of left ear (389.21) (H90.72) Otosclerosis of left ear (387.9) (H80.92) Orders Coagulation Screen; Status:Active - Retrospective By Protocol Authorization; Requested for:17Mar2022; Complete Blood Count; Status:Active - Retrospective By Protocol Authorization; Requested for:17Mar2022; Comprehensive Metabolic Panel; Status:Active - Retrospective By Protocol Authorization; Requested for:17Mar2022; Electrocardiogram EKG; Status:Hold For - Scheduling,Retrospective By Protocol Authorization; Requested for:17Mar2022; Tobacco Use Screening; Status:Complete; Done: 17Mar2022 Chief Complaint New patient visit for otosclerosis and SNHL, referred by Dr. Davila History of Present IllnessHistory of present illness: This is the initial visit for this patient who is a 66-year-old male referred by Dr. Davila for evaluation of progressive left conductive hearing loss and possible otosclerosis in the left ear. The patient is accompanied by his daughter. Patient states he has had progressive hearing loss bilaterally greatest in the left ear and having difficulty with speech discrimination especially in crowded loud settings. Denies family hx of hearing loss. Denies ototoxic medication use. 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 Denies otorrhea otalgia or vertigo. When asked about a significant past otological history including history of prior ear surgery, noise exposure, exposure to ototoxic drugs or agents, and/or family history of hearing loss, the patientdenies experiencing any of these. The patient?s current medications, active allergies and list of medical problems were reviewed in the EHR and confirmed electronically. Physical Examination: CONSTITUTIONAL: No acute distress VOICE: No hoarseness or other abnormality RESPIRATION: Breathing comfortably, no stridor CV: No clubbing/cyanosis/edema in hands EYES: EOM intact, sclera clear NEURO: Alert and oriented times 3, Cranial nerves II-XII grossly intact and symmetric bilaterally HEAD AND FACE: Symmetric facial features, no masses or lesions RIGHT EAR: Normal external ear and post auricular area, no visible lesions, external auditory canalpatent, tympanic membrane intact, no retraction, no signs of mass, no effusion, no fluid, or infection within the middle ear LEFT EAR: Normal external ear and post auricular area, no visible lesions, external auditory canal patent, tympanic membrane intact, no retraction, no signs of mass, no effusion, no fluid, or infection within the middle ear . BC>AC at 512 and 1024Hz. NOSE: External nose midline, anterior rhinoscopy is normal with limited visualization to the anterior aspect of the interior turbinates, no bleeding or drainage, no lesions ORAL CAVITY/OROPHARYNX/LIPS: Normal mucous membranes, normal floor of mouth/tongue/OP, no masses orlesions PHARYNGEAL WILL: No masses or lesions NECK/LYMPH: No LAD, no thyroid masses, trachea midline SKIN: Neck and facial skin is without scar or injury PSYCH: Alert and oriented with appropriate mood and affect Diagnostic testing: The audiogram by Dr. Davila showed moderate mixed hearing loss on the left side sloping. Mild sloping SNHL on the right. Speech discrimination was 100% bilaterally. type A tympanogram bilaterally. I personally reviewed the available patient?s external record and independently reviewed their audiometric testing through the appropriate viewing software as detailed in my note and agree with the detailed report. Impression: Left mixed hearing loss. Right SNHL Possible left otosclerosis. Recommendation: The condition was reviewed and explained. The patient's auditory rehabilitative options were discussed. Those included observation, hearing amplification and left middle ear exploration possible leftstapedectomy. The risks benefits alternatives of each of the approaches were discussed. The risks of stapedectomy discussed included but not limited to bleeding, infection, tympanic membrane perforation, taste disturbance, hearing loss, dizziness, tinnitus and rarely facial injury. The patient desires to proceed with the left stapedectomy surgery. We will schedule at his convenience. I discussed with the patient the complexity of my medical decision making including the treatment and testing rational, indications of their elective procedure and possible adverse effects and/or complications. Based on the provided documentation and my professional assessment of this patient?s chronic progressive condition, the complexity of evaluation and treatment is moderate. This note was created using speech recognition client relations representative software/or [employer] client relations representative services. Despite proofreading, several typographical errors might be present that might affect the meaning of the content. Please call with any questions. By signing my name below, I, Amie Lowe, (more content not included)... TouchworksEvaluation + Plan note Future Appointments Appointment Date:12/08/2023 08:30:00 AM Scheduled Provider:Ailyn DUNN MD Location:[facility] Appointment Type:URO Office Visit Diagnostic Tests Pending * PSA Total 12/05/22 [facility] evaluation + Plan note Future Appointments Appointment Date:12/20/2024 08:30:00 AM Scheduled Provider:Ailyn DUNN MD Location:[facility] Appointment Type:URO Office Visit Diagnostic Tests Pending * PSA Total 01/01/24 [facility] evaluation + Plan note Future Appointments Appointment Date:12/20/2024 08:30:00 AM Scheduled Provider:Ailyn DUNN MD Location:[facility] Appointment Type:URO Office Visit [facility] [facility] General Surgery [place] Evaluation note* Diagnosis Left hip pain Pain in joint, pelvic region and thigh documented in this encounter AzoooEvaluation note* Diagnosis Left hip pain- Primary Pain in joint, pelvic region and thigh documented in this encounter AzoooEvaluation note* Diagnosis Postoperative wound infection of left hip- Primary Other postoperative infection Preop testing Preoperative examination, unspecified Encounter for preoperative screening laboratory testing for COVID-19 virus Primary osteoarthritis of left hip Primary localized osteoarthrosis, pelvic region and thigh Primary osteoarthritis of left hip Primary localized osteoarthrosis, pelvic region and thigh documented in this encounter AzoooEvaluation note* Diagnosis Hx of total hip arthroplasty, left- Primary Right knee pain, unspecified chronicity documented in this encounter AzoooEvaluation noteNo [email or web address] Other evaluation note* Diagnosis Acute postoperative pain of left knee- Primary Primary osteoarthritis of right knee Primary localized osteoarthrosis, lower leg Osteoarthritis of right knee Osteoarthrosis, unspecified whether generalized or localized, lower leg documented in this encounter AzoooEvaluation [email or web address] Other evaluation note* Diagnosis Hx of total knee arthroplasty, right- Primary documented in this encounter AzoooHistory general Narrative - Reported* Type Description Date Medical History GERD (gastroesophageal reflux di sease) Medical History Hyperlipidemia type II Medical History Essential hypertension Medical History ASHD (arteriosclerotic heart dis ease) Medical History Arthritis of left hip Medical History Benign prostatic hyp erplasia with lower urinary tract symptoms Medical History Nocturnal leg cramps Medical History Recurrent major depressive disor reed, in full remission Medical History Lumbar spondylosis Medical History Elevated transaminase level Medical History Hip pain, left Medical History High risk medication use Medical History Esophageal dysphagia Medical History Anemia Medical History Low testosterone in male Medical History Abnormal liver enzymes Surgical History CYSTOSCOPY 2013 Surgical History COLONOSCOPY 2013 Surgical History [facility] Surgical History PCDF C3-7 2015 Surgical History L2-S1 LAMINECTOMY, DECOMPRESSIO N, FUSION 2017 Surgical History ARTHROSCOPY RIGHT KNEE 2018 Surgical History LAP UMBILICAL HERNIA REPAIR 201 9 Surgical History TRANSRECTAL ULTRASOUND (TRUS) W ITH BIOPSY 2021 Surgical History LEFT TOTAL HIP ARTHROPLASTY 202 2 Hospitalization History [facility] Other History general Narrative - Reported* Type Description Date Medical History GERD (gastroesophageal reflux di sease) Medical History Hyperlipidemia type II Medical History Essential hypertension Medical History ASHD (arteriosclerotic heart dis ease) Medical History Arthritis of left hip Medical History Benign prostatic hyp erplasia with lower urinary tract symptoms Medical History Nocturnal leg cramps Medical History Recurrent major depr essive disorder, in full remission Medical History Lumbar spondylosis Medical History Elevated transaminase level Medical History Hip pain, left Medical History High risk medication use Medical History Esophageal dysphagia Medical History Anemia Medical History Low testosterone in male Medical History Abnormal liver enzymes Surgical History CYSTOSCOPY 2013 Surgical History COLONOSCOPY 2013 Surgical History [facility] Surgical History PCDF C3-7 2015 Surgical History L2-S1 LAMINECTOMY, DECOMPRESSIO N, FUSION 2017 Surgical History ARTHROSCOPY RIGHT KNEE 2018 Surgical History LAP UMBILICAL HERNIA REPAIR 201 9 Surgical History TRANSRECTAL ULTRASOUND (TRUS) W ITH BIOPSY 2021 Surgical History LEFT TOTAL HIP ARTHROPLASTY 202 2 Surgical History Right TKA 04/2023` Hospitalization History [facility] Other History general [facility]ative - [facility] Other History general Narrative - Reported* Type Description Date Medical History GERD (gastroesophageal reflux di sease) Medical History Hyperlipidemia type II Medical History Essential hypertension Medical History ASHD (arteriosclerotic heart dis ease) Medical History Arthritis of left hip Medical History Benign prostatic hyp erplasia with lower urinary tract symptoms Medical History Nocturnal leg cramps Medical History Recurrent major depr essive disorder, in full remission Medical History Lumbar spondylosis Medical History Elevated transaminase level Medical History Hip pain, left Medical History High risk medication use Medical History Esophageal dysphagia Medical History Anemia Medical History Low testosterone in male Medical History Abnormal liver enzymes Surgical History CYSTOSCOPY 2013 Surgical History COLONOSCOPY 2013 Surgical History C Surgical History PCDF C3-7 2015 Surgical History L2-S1 LAMINECTOMY, DECOMPRESSIO N, FUSION 2017 Surgical History ARTHROSCOPY RIGHT KNEE 2018 Surgical History LAP UMBILICAL HERNIA REPAIR 201 9 Surgical History TRANSRECTAL ULTRASOUND (TRUS) W ITH BIOPSY 2021 Surgical History LEFT TOTAL HIP ARTHROPLASTY 202 2 Surgical History Right TKA 04/2023` Surgical History EGD 05/2023 Hospitalization History [facility] Other History of Present illness Narrative* History of present illness: * This is the initial visit for this patient who is a 66-year-old male referred by Dr. Davila for evaluation of progressive left conductive hearing loss and possible otosclerosis in the left ear. The patient is accompanied by his daughter. Patient states he has had progressive hearing loss bilaterally greatest in the left ear and having difficulty with speech discrimination especially in crowded loud settings. Denies family hx of hearing loss. Denies ototoxic medication use. 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 Denies otorrhea otalgia or vertigo. * When asked about a significant past otological history including history of prior ear surgery, noise exposure, exposure to ototoxic drugs or agents, and/or family history of hearing loss, the patientdenies experiencing any of these. * The patient s current medications, active allergies and list of medical problems were reviewed in the EHR and confirmed electronically. * Physical Examination: * CONSTITUTIONAL: No acute distress * VOICE: No hoarseness or other abnormality * RESPIRATION: Breathing comfortably, no stridor * CV: No clubbing/cyanosis/edema in hands * EYES: EOM intact, sclera clear * NEURO: Alert and oriented times 3, Cranial nerves II-XII grossly intact and symmetric bilaterally * HEAD AND FACE: Symmetric facial features, no masses or lesions * RIGHT EAR: Normal external ear and post auricular area, no visible lesions, external auditory canalpatent, tympanic membrane intact, no retraction, no signs of mass, no effusion, no fluid, or infection within the middle ear * LEFT EAR: Normal external ear and post auricular area, no visible lesions, external auditory canal patent, tympanic membrane intact, no retraction, no signs of mass, no effusion, no fluid, or infection within the middle ear . BC>AC at 512 and 1024Hz. * NOSE: External nose midline, anterior rhinoscopy is normal with limited visualization to the anterior aspect of the interior turbinates, no bleeding or drainage, no lesions * ORAL CAVITY/OROPHARYNX/LIPS: Normal mucous membranes, normal floor of mouth/tongue/OP, no masses orlesions * PHARYNGEAL WILL: No masses or lesions * NECK/LYMPH: No LAD, no thyroid masses, trachea midline * SKIN: Neck and facial skin is without scar or injury * PSYCH: Alert and oriented with appropriate mood and affect * Diagnostic testing: * The audiogram by Dr. Davila showed moderate mixed hearing loss on the left side sloping. Mild sloping SNHL on the right. Speech discrimination was 100% bilaterally. type A tympanogram bilaterally. * I personally reviewed the available patient s external record and independently reviewed their audiometric testing through the appropriate viewing software as detailed in my note and agree with the detailed report. * Impression: * Left mixed hearing loss. * Right SNHL * Possible left otosclerosis. * Recommendation: * The condition was reviewed and explained. The patient's auditory rehabilitative options were discussed. Those included observation, hearing amplification and left middle ear exploration possible leftstapedectomy. The risks benefits alternatives of each of the approaches were discussed. The risks of stapedectomy discussed included but not limited to bleeding, infection, tympanic membrane perforation, taste disturbance, hearing loss, dizziness, tinnitus and rarely facial injury. The patient desires to proceed with the left stapedectomy surgery. We will schedule at his convenience. * I discussed with the patient the complexity of my medical decision making including the treatment and testing rational, indications of their elective procedure and possible adverse effects and/or complications. Based on the provided documentation and my professional assessment of this patient s custodial officer katarzyna progressive condition, the complexity of evaluation and treatment is moderate. * This note was created using speech recognition client relations representative software/or [employer] client relations representative services. Despite proofreading, several typographical errors might be present that might affect the meaning of the content. Please call with any questions. * By signing my name below, I, Tiff Petit, attest that this documentation has been prepared under the direction and in the presence of Dr. Rojas. All medical record entries made by the [employer] were at my direction and personally dictated by me. I have reviewed the chart and agree that the record accurately reflects my personal performance of the history, physical exam, discussion, and plan. * Patient Information: * Stapedectomy * Stapedectomy/Stapedotomy is a middle ear operation to restore hearing related to a frozen bone or bones in the middle ear. This allows improvement of hearing by restoring vibration of the middle ear bones to the fluid of the middle ear. * Complications from stapedectomy are infrequent and are usually related to uncommon variations in anatomy or defects. The likelihood of total hearing loss is rare. Facial paralysis is extremely rare for stapedectomy. Loss of taste on the side of the tongue is a common complaint that usually res olves within a few months. Some dizziness after surgery is normal and may last several days or weeks. Severe or disabling dizziness is less common and could be a symptom of inner ear disturbances. Tinnitus that was present before surgery commonly persists, but could disappear or diminish. On the other hand, tinnitus may develop as a result of surgery. * Failure to improve hearing occurs in about 2-10% of cases. If there is deterioration of hearing after successful surgery and adequate nerve function remains, it may be possible to restore that hearing by additional surgery. The likelihood of success in those cases has been estimated at 60-80%. A hearing aid may be a reasonable alternative to surgery and that option should be discussed. Unless otherwise advised by your surgeon, stapedectomy for otosclerosis is an elective procedure. OC-Bcizmdkvjxgtyb-Wyqkjtnx Work Phone: History of Present illness Narrative* History of present illness: * This is the initial visit for this patient who is a 66-year-old male referred by Dr. Davila for evaluation of progressive left conductive hearing loss and possible otosclerosis in the left ear. The patient is accompanied by his daughter. Patient states he has had progressive hearing loss bilaterally greatest in the left ear and having difficulty with speech discrimination especially in crowded loud settings. Denies family hx of hearing loss. Denies ototoxic medication use. 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 Denies otorrhea otalgia or vertigo. * When asked about a significant past otological history including history of prior ear surgery, noise exposure, exposure to ototoxic drugs or agents, and/or family history of hearing loss, the patientdenies experiencing any of these. * The patient s current medications, active allergies and list of medical problems were reviewed in the EHR and confirmed electronically. * Physical Examination: * CONSTITUTIONAL: No acute distress * VOICE: No hoarseness or other abnormality * RESPIRATION: Breathing comfortably, no stridor * CV: No clubbing/cyanosis/edema in hands * EYES: EOM intact, sclera clear * NEURO: Alert and oriented times 3, Cranial nerves II-XII grossly intact and symmetric bilaterally * HEAD AND FACE: Symmetric facial features, no masses or lesions * RIGHT EAR: Normal external ear and post auricular area, no visible lesions, external auditory canalpatent, tympanic membrane intact, no retraction, no signs of mass, no effusion, no fluid, or infection within the middle ear * LEFT EAR: Normal external ear and post auricular area, no visible lesions, external auditory canal patent, tympanic membrane intact, no retraction, no signs of mass, no effusion, no fluid, or infection within the middle ear . BC>AC at 512 and 1024Hz. * NOSE: External nose midline, anterior rhinoscopy is normal with limited visualization to the anterior aspect of the interior turbinates, no bleeding or drainage, no lesions * ORAL CAVITY/OROPHARYNX/LIPS: Normal mucous membranes, normal floor of mouth/tongue/OP, no masses orlesions * PHARYNGEAL WILL: No masses or lesions * NECK/LYMPH: No LAD, no thyroid masses, trachea midline * SKIN: Neck and facial skin is without scar or injury * PSYCH: Alert and oriented with appropriate mood and affect * Diagnostic testing: * The audiogram by Dr. Davila showed moderate mixed hearing loss on the left side sloping. Mild sloping SNHL on the right. Speech discrimination was 100% bilaterally. type A tympanogram bilaterally. * I personally reviewed the available patient s external record and independently reviewed their audiometric testing through the appropriate viewing software as detailed in my note and agree with the detailed report. * Impression: * Left mixed hearing loss. * Right SNHL * Possible left otosclerosis. * Recommendation: * The condition was reviewed and explained. The patient's auditory rehabilitative options were discussed. Those included observation, hearing amplification and left middle ear exploration possible leftstapedectomy. The risks benefits alternatives of each of the approaches were discussed. The risks of stapedectomy discussed included but not limited to bleeding, infection, tympanic membrane perforation, taste disturbance, hearing loss, dizziness, tinnitus and rarely facial injury. The patient desires to proceed with the left stapedectomy surgery. We will schedule at his convenience. * I discussed with the patient the complexity of my medical decision making including the treatment and testing rational, indications of their elective procedure and possible adverse effects and/or complications. Based on the provided documentation and my professional assessment of this patient s custodial officer katarzyna progressive condition, the complexity of evaluation and treatment is moderate. * This note was created using speech recognition client relations representative software/or [employer] client relations representative services. Despite proofreading, several typographical errors might be present that might affect the meaning of the content. Please call with any questions. * By signing my name below, I, Tiff Petit, attest that this documentation has been prepared under the direction and in the presence of Dr. Rojas. All medical record entries made by the [employer] were at my direction and personally dictated by me. I have reviewed the chart and agree that the record accurately reflects my personal performance of the history, physical exam, discussion, and plan. * Patient Information: * Stapedectomy * Stapedectomy/Stapedotomy is a middle ear operation to restore hearing related to a frozen bone or bones in the middle ear. This allows improvement of hearing by restoring vibration of the middle ear bones to the fluid of the middle ear. * Complications from stapedectomy are infrequent and are usually related to uncommon variations in anatomy or defects. The likelihood of total hearing loss is rare. Facial paralysis is extremely rare for stapedectomy. Loss of taste on the side of the tongue is a common complaint that usually res olves within a few months. Some dizziness after surgery is normal and may last several days or weeks. Severe or disabling dizziness is less common and could be a symptom of inner ear disturbances. Tinnitus that was present before surgery commonly persists, but could disappear or diminish. On the other hand, tinnitus may develop as a result of surgery. * Failure to improve hearing occurs in about 2-10% of cases. If there is deterioration of hearing after successful surgery and adequate nerve function remains, it may be possible to restore that hearing by additional surgery. The likelihood of success in those cases has been estimated at 60-80%. A hearing aid may be a reasonable alternative to surgery and that option should be discussed. Unless otherwise advised by your surgeon, stapedectomy for otosclerosis is an elective procedure. QQ-Nehjfhgvrgardv-Cqqecdbu Work Phone: Hospital course Narrative No data available for this section [facility] Hospital Discharge instructions No data available for this section [facility] General Surgery [place] Progress note No data available for this section [facility] reason for visit Narrative* Auth/Cert Specialty Diagnoses / Procedures Referred By Dodie silverman Referred To Contact Diagnoses Primary osteoarthritis of left hip Primary osteoarthritis of left hip [M16.12] Procedures MI TOTAL HIP ARTHROPLASTY ARTHROPLASTY HIP TOTAL ANTERIOR APPROACH Lazarus Coronado MD [address] [place] [address] Referral ID Status Reason Start Date Expiration Date Visits Re quested Visits Authorized [id number] 08/15/2022 1 1 [employer] Summary Purpose Family History No Family History Records FoundUnknown Family Member Name Dates Details : Father Status:Active Family history of malignant neoplasm: Father(V16.9, Z80.9) Status:Active Alive and well: Mother Status:Active Unknown Family Member Name Dates Details : Father Status:Active Family history of malignant neoplasm: Father(V16.9, Z80.9) Status:Active Alive and well: Mother Status:Active Advance Directives No Advanced Directives Records FoundLatest Code Status on File Code Status Date Activated Date Inactivated Comments Full Code 10/10/2022 11:40 AM Latest Code Status on File Code Status Date Activated Date Inactivated Comments Full Code 05/08/2023 10:16 AM Code Status History Code Status Date Activated Date Inactivated Comments Full Code 10/10/2022 11:40 AM 05/08/2023 10:16 AM Chief Complaint New patient visit for otosclerosis and SNHL, referred by Dr. Chilel patient visit for otosclerosis and SNHL, referred by Dr. Davila Reason for Referral Specialty Diagnoses / Procedures Referred By Contac t Referred To Contact Diagnoses Left hip pain Procedures XR HIP WITH PELVIS LEFT Lazarus Coronado MD [address] [place] [id number] Referral ID Status Reason Start Date Expiration Date V isits Requested Visits Authorized [id number] Pending Review 08/03/2022 08/28/2023 1 1 Specialty Diagnoses / Procedures Referred By Contac t Referred To Contact Diagnoses Right knee pain, unspecified chronicity Procedures XR KNEE RIGHT 4+ VIEWS Lazarus Coronado MD [address] [place] [id number] Referral ID Status Reason Start Date Expiration Date V isits Requested Visits Authorized [id number] New Request 03/23/2023 04/16/2024 1 1 Specialty Diagnoses / Procedures Referred By Contac t Referred To Contact Diagnoses Right knee pain, unspecified chronicity Procedures XR BONE LENGTH STUDY Lazarus Coronado MD [address] [place] [phone] Referral ID Status Reason Start Date Expiration Date V isits Requested Visits Authorized [id number] New Request 03/23/2023 04/16/2024 1 1 Referral ID Status Reason Start Date Expiration Date V isits Requested Visits Authorized [id number] New Request 03/23/2023 04/16/2024 1 1 Specialty Diagnoses / Procedures Referred By Contac t Referred To Contact Diagnoses Hx of total hip arthroplasty, left Procedures XR HIP WITH PELVIS LEFT Lazarus Coronado MD [address] [place] [phone] Referral ID Status Reason Start Date Expiration Date V isits Requested Visits Authorized [id number] New Request 03/07/2023 03/31/2024 1 1 Specialty Diagnoses / Procedures Referred By Contac t Referred To Contact Physical Therapy Diagnoses Acute postoperative pain of left knee Mone Watson APRN-[facility]A [address] [place] [id number] Referral ID Status Reason Start Date Expiration Date V isits Requested Visits Authorized [id number] New Request 05/08/2023 06/01/2024 1 1 Scheduling Instructions . Specialty Diagnoses / Procedures Referred By Contac t Referred To Contact Diagnoses Hx of total knee arthroplasty, right Procedures XR KNEE RIGHT 3 VIEWS Mone Watson APRN-[employer] [address] [place] [address] Referral ID Status Reason Start Date Expiration Date V isits Requested Visits Authorized [id number] New Request 05/24/2023 06/17/2024 1 1 Additional Source Comments (unrecognized sect ion and content) No Status Records FoundNo Status Records FoundNo Status Records FoundNo Status Records FoundNo Status Records FoundNo Status Records FoundNo Status Records FoundNo Status Records Found INFORMATION SOURCE (unrecogn ized section and content) DATE CREATED AUTHOR 12/15/2021 [facility] DATE CREATED AUTHOR AUTHOR'S ORGANIZ ATION 07/17/2022 [employer] DATE CREATED AUTHOR AUTHOR'S ORGANIZ ATION 07/18/2022 [facility] DATE CREATED AUTHOR AUTHOR'S ORGANIZ ATION 03/31/2023 [facility] DATE CREATED AUTHOR AUTHOR'S ORGANIZ ATION 06/08/2023 [facility] DATE CREATED AUTHOR AUTHOR'S ORGANIZ ATION 06/27/2023 [facility] DATE CREATED AUTHOR AUTHOR'S ORGANIZ ATION 04/25/2024 [facility] DATE CREATED AUTHOR AUTHOR'S ORGANIZ ATION 05/20/2024 [facility] Reason for Visit (unrecogniz ed section and content) Specialty Diagnoses / Procedures Referred By Contac t Referred To Contact Diagnoses Left hip pain Procedures XR HIP WITH PELVIS LEFT Lazarus Coronado MD [address] [place] [address] Referral ID Status Reason Start Date Expiration Date V isits Requested Visits Authorized [id number] Pending Review 08/03/2022 08/28/2023 1 1 Reason Comments Pain New Patient Specialty Diagnoses / Procedures Referred By Contac t Referred To Contact Diagnoses Hx of total hip arthroplasty, left Procedures XR HIP WITH PELVIS LEFT Mone Watson, AGRIBUSINESS PROFESSOR-[employer] [address] [place] [address] Referral ID Status Reason Start Date Expiration Date V isits Requested Visits Authorized [id number] New Request 10/27/2022 11/21/2023 1 1 Specialty Diagnoses / Procedures Referred By Contac t Referred To Contact Diagnoses Hx of total hip arthroplasty, left Procedures XR HIP WITH PELVIS LEFT Lazarus Coronado MD [address] [place] [address] Referral ID Status Reason Start Date Expiration Date V isits Requested Visits Authorized [id number] New Request 03/07/2023 03/31/2024 1 1 Specialty Diagnoses / Procedures Referred By Contac t Referred To Contact Diagnoses Right knee pain, unspecified chronicity Procedures XR BONE LENGTH STUDY Lazarus Coronado MD [address] [place] [phone] Referral ID Status Reason Start Date Expiration Date V isits Requested Visits Authorized [id number] New Request 03/23/2023 04/16/2024 1 1 Reason Comments Post Op Visit Specialty Diagnoses / Procedures Referred By Contac t Referred To Contact Diagnoses Primary osteoarthritis of right knee Primary osteoarthritis of right knee [M17.11] Procedures MI TOTAL KNEE ARTHROPLASTY ARTHROPLASTY KNEE TOTAL aLzarus Coronado MD [address] [place] [id number] Referral ID Status Reason Start Date Expiration Date Visits Re quested Visits Authorized [id number] 03/29/2023 1 1 Reason Comments Post Op Visit Care Teams (unrecognized sec tion and content) Customer Service Agent Relationship Specialty Start Date End Date Stevan Galdamez [address] [place] [address] PCP - General Internal Medicine 08/03/22 Customer Service Agent Relationship Specialty Start Date End Date Stevan Galdamez [address] [place] [address] PCP - General Internal Medicine 08/03/22 Customer Service Agent Relationship Specialty Start Date End Date Stevan Galdamez [address] [place] [address] PCP - General Internal Medicine 08/03/22 Customer Service Agent Relationship Specialty Start Date End Date Stevan Galdamez, DO [address] [place] [facility] [address] PCP - General Internal Medicine 08/03/22 Customer Service Agent Relationship Specialty Start Date End Date Stevan Galdamez, DO [address] [place] [address] PCP - General Internal Medicine 08/03/22 Customer Service Agent Relationship Specialty Start Date End Date Stevan Galdamez, DO [address] [place] [facility] [address] PCP - General Internal Medicine 08/03/22 Customer Service Agent Relationship Specialty Start Date End Date Stevan Galdamez, DO [address] [place] [address] PCP - General Internal Medicine 08/03/22 Customer Service Agent Relationship Specialty Start Date End Date Stevan Galdamez DO [address] [place] [address] PCP - General Internal Medicine 08/03/22 Customer Service Agent Relationship Specialty Start Date End Date Stevan Galdamez DO [address] [place] [address] PCP - General Internal Medicine 08/03/22 Scheduled Active and Recently Administ ered Medications (unrecognized section and content) Medication Order 10/09/2022 10/10/2022 10/11/2022 acetaminophen (TYLENOL) tablet 1,000 mg (COMPLETED) 1,000 mg, Oral, ONCE, 1 dose, On Mon10/10/22 at 0700, Administer 1 hour preop., Pre-op/Pre-Proc 0720 (Given - Provider: Chyna Atkins RN) acetaminophen (TYLENOL) tablet 1,000 mg 1,000 mg, Oral, EVERY 6 HOURS NON-STANDARD, First dose on Mon10/10/22 at 1500, Until Discontinued, , Post-op/Post-Proc 1522 (Given - Provider: Ly Lynn RN)2029 (Given - Provider: Felecia Carrera RN) 0241 (Given - Provider: Felecia Carrera RN)0834 (Given - Provider: Ly Lynn RN)1500 (Canceled Entry - Provider: System Discharge - Comment: Automatically canceled at discontinue of medication order) amLODIPine (NORVASC) tablet 5 mg 5 mg, Oral, DAILY, First dose on Mon10/11/22 at 0900, Until Discontinued 0834 (Given - Provid er: Ly Lynn RN) aspirin EC tablet DR 81 mg 81 mg, Oral, EVERY 12 HOURS, First dose on Mon10/11/22 at 0900, Until Discontinued, Start in AM day after surgery, Post-op/Post-Proc 0836 (Given - Provid er: Ly Lynn RN) atorvastatin (LIPITOR) tablet 80 mg 80 mg, Oral, DAILY, First dose on Mon10/11/22 at 0900, Until Discontinued 0835 (Given - Provid er: Ly Lynn RN) buPROPion (WELLBUTRIN) tablet XL 300 mg 300 mg, Oral, DAILY, First dose on Mon10/11/22 at 0900, Until Discontinued, Do not crush, chew, or divide. 0834 (Given - Provid er: Ly Lynn RN) ceFAZolin (ANCEF) 2 g in dextrose 100 mL premix IVPB (COMPLETED) 2 g, Intravenous, Administer over 30 Minutes, EVERY 8 HOURS NON-STANDARD, 3 doses, First dose on Mon10/10/22 at 1800, Last dose on Mon10/11/22 at 1000, Post-op/Post-Proc 1720 ($$New Bag$$ - Provider: Ly Lynn RN) 0246 ($$New Bag$$ - Provider: Felecia Carrera RN)0700 (Stopped - Provider: Keira Qiu RN - Comment: not runnning upon arrival to floor for shift)1052 ($$New Bag$$ - Provider: Ly Lynn RN)1122 (Stopped - Provider: Ly Lynn RN) celecoxib (CELEBREX) capsule 200 mg (COMPLETED) 200 mg, Oral, ONCE, 1 dose, On Mon10/10/22 at 0700, Administer 2 hours preop., Pre-op/Pre-Proc 0721 (Given - Provider: Chyna Atkins RN) cyclobenzaprine (FLEXERIL) tablet 10 mg 10 mg, Oral, DAILY AT BEDTIME, First dose on Mon10/10/22 at 2100, Until Discontinued 2030 (Given - Provider: Felecia Carrera RN) dexAMETHasone (DECADRON) injection 10 mg (COMPLETED) 10 mg, Intravenous, EVERY 24 HOURS, 1 dose, First dose (after last modification) on Mon10/11/22 at 1200, 24 hours post op, Post-op/Post-Proc 1053 (Given - Provid er: Ly Lynn RN) docusate (COLACE) capsule 100 mg 100 mg, Oral, 2 TIMES DAILY, First dose on Mon10/10/22 at 1700, Until Discontinued, Post-op/Post-Proc 1720 (Given - Provider: Ly Lynn RN) 0834 (Given - Provider: Ly Lynn RN) finasteride (PROSCAR) tablet 5 mg 5 mg, Oral, DAILY, First dose on Mon10/11/22 at 0900, Until Discontinued, Do not split, break, crush or open this medication. Contact pharmacy if altered route or dose needed. 0834 (Given - Provid er: Ly Lynn RN) ketorolac (TORADOL) injection 7.5 mg 7.5 mg, Intravenous, EVERY 6 HOURS NON-STANDARD, First dose on Mon10/10/22 at 1400, Until Discontinued, Post-op/Post-Proc 1522 (Given - Provider: Ly Lynn RN)203 (Given - Provider: Felecia Carrera RN) 0241 (Given - Provider: Felecia Carrera RN)0833 (Given - Provider: Ly Lynn RN)1400 (Canceled Entry - Provider: System Discharge - Comment: Automatically canceled at discontinue of medication order) lisinopril (PRINIVIL) tablet 40 mg 40 mg, Oral, DAILY, First dose on Mon10/11/22 at 0900, Until Discontinued 0834 (Given - Provid er: Ly Lynn RN) metoprolol (LOPRESSOR) tablet 25 mg 25 mg, Oral, EVERY 12 HOURS, First dose on Mon10/10/22 at 2100, Until Discontinued, 2028 (Given - Provider: Felecia Carrera RN) 0837 (Not Given - Provider: Ly Lynn RN - Reason: Other - Comment: BP is 109/63) pantoprazole (PROTONIX) tablet DR 40 mg 40 mg, Oral, DAILY, First dose on Mon10/11/22 at 0900, Until Discontinued, Indications: Continuation of Home Therapy, Inpt Stress Ulcer Prophylaxis 0834 (Given - Provid er: Ly Lynn RN) ropivacaine (NAROPIN) 1 % 400 mg, EPINEPHrine PF (ADRENALIN) 1 MG/ML 1 mg, ketorolac (TORADOL) 30 MG/ML 30 mg, cloNIDine 100 MCG/ML 167 mcg, sodium chloride 0.9% 45 mL 88.67 mL (total volume) (COMPLETED) Intra-articular, INTRA-OP ONCE, 1 dose, Starting on Mon10/10/22 at 1100, Until Mon10/10/22 at 1100, 88.67 mL, To be mixed by pharmacy NOT for IV use, Intra-op/Intra-Proc 1100 (Given - Provider: Imelda Gilbert RN - Comment: to sterile field for intra op use) Tamsulosin HCl (FLOMAX) capsule 0.4 mg 0.4 mg, Oral, DAILY, First dose on Mon10/11/22 at 0900, Until Discontinued, Slow release product. Do not chew or crush 0834 (Given - Provid er: Ly Lynn RN) tranexamic acid (LYSTEDA) tablet 1,950 mg (COMPLETED) 1,950 mg, Oral, ONCE, 1 dose, On Mon10/10/22 at 0700, Administer 2 hours preop, Pre-op/Pre-Proc 720 (Given - Provider: Chyna Atkins RN) traZODone (DESYREL) tablet 50 mg 50 mg, Oral, DAILY AT BEDTIME, First dose on Mon10/10/22 at 2100, Until Discontinued 2029 (Given - Provider: Felecia Carrera RN) Continuous Medication Order 10/09/2022 10/10/2022 10/11/2022 sodium chloride 0.9% IV solution (CANCELED) Intravenous, at 100 mL/hr, CONTINUOUS, Starting on Mon10/10/22 at 0700, Until Mon10/10/22 at 1302, Pre-op/Pre-Proc 0723 ($$New Bag$$ - Provider: Chyna Atkins RN)1121 (Paused - Provider: MERRY Rodriguez - Comment: Switch to gravity)1122 ($$New Bag$$ - Provider: MERRY Rodriguez)1300 (Stopped - Provider: Keira Qiu RN - Comment: see new order) sodium chloride 0.9% IV solution Intravenous, at 100 mL/hr, CONTINUOUS, Starting on Mon10/10/22 at 1315, Until Mon10/11/22 at 1529, Convert IV to PRN adapter post op day 1 if adequate oral intake, Post-op/Post-Proc 1300 ($$New Bag$$ - Provider: Ly Lynn RN)1700 (Rate/Dose Verify - Provider: Keira Qiu RN) 0734 (Stopped - Provider: Keira Qiu RN)1122 (Stopped - Provider: Ly Lynn RN) PRN Medication Order 10/09/2022 10/10/2022 10/11/2022 bisacodyl (DULCOLAX) suppository 10 mg 10 mg, Rectal, DAILY NEEDED, Starting on Mon10/10/22 at 1306, Until Mon10/11/22 at 1529, constipation, Post-op/Post-Proc ceFAZolin (ANCEF) 2 g in dextrose 100 mL premix IVPB (COMPLETED) 2 g, Intravenous, Administer over 30 Minutes, CAMP COORDINATOR TO PROCEDURE, 1 dose, Starting on Mon10/10/22 at 0657, Until Discontinued, Other, Pre-operative antibiotic, For 15 Minutes, Pre-op/Pre-Proc 1015 (Given - Provider: MERRY Rodriguez) HYDROmorphone (DILAUDID) injection 0.5 mg 0.5 mg, Intravenous, EVERY 4 HOURS NEEDED, Starting on Mon10/10/22 at 1306, Until Mon10/11/22 at 1529, Severe Pain, Post-op/Post-Proc 0258 (Given - Provid er: Felecia Carrera RN) HYDROmorphone (DILAUDID) injection 0.5 mg (CANCELED) 0.5 mg, Intravenous, EVERY 10 MINUTES NEEDED, 4 doses, Starting on Mon10/10/22 at 1153, Until Mon10/10/22 at 1302, Other, VAS over 3/10, Hold for RR less than 12 VAS over 3/10, Recovery 1204 (Given - Provider: Diamond Barillas RN)1219 (Given - Provider: Diamond Barillas, RN) ondansetron 4mg/2ml (ZOFRAN) injection 4 mg 4 mg, Intravenous, EVERY 4 HOURS NEEDED, Starting on Mon10/10/22 at 1306, Until Mon10/11/22 at 1529, Nausea / Vomiting, Post-op/Post-Proc ondansetron 4mg/2ml (ZOFRAN) injection 4 mg (COMPLETED) 4 mg, Intravenous, ONCE NEEDED, 1 dose, Starting on Mon10/10/22 at 1153, Until Mon10/10/22 at 1203, Nausea / Vomiting, Recovery 1203 (Given - Provider: Diamond Barillas, BRENDA) oxyCODONE (ROXICODONE) tablet 5-10 mg 5-10 mg, Oral, EVERY 4 HOURS NEEDED, Starting on Mon10/10/22 at 1306, Until Mon10/11/22 at 1529, moderate-severe pain, If pain unrelieved with oxycodone, contact pharmacist to enter order for Oxycodone ER 10mg PO Q12H for 3 days, Post-op/Post-Proc 2030 (Given - Provider: Felecia Carrera, RN) 0031 (Given - Provider: Felecia Carrera, BRENDA)0845 (Given - Provider: Ly Lynn RN) senna-docusate (SENOKOT-S) 8.6-50 MG per tablet 2 tablet 2 tablet, Oral, 2 TIMES DAILY NEEDED, Starting on Mon10/10/22 at 1306, Until Mon10/11/22 at 1529, constipation, Post-op/Post-Proc sodium chloride 0.9 % irrigation (CANCELED) NEEDED, Starting on Mon10/10/22 at 1030, Until Mon10/10/22 at 1302, Intra-op/Intra-Proc 1030 (Given - Provider: Lazarus Coronado MD)1240 (Given - Provider: Diamond Barillas RN) sodium phosphate w/sodium biphosphate (FLEETS) enema 1 enema 1 enema, Rectal, DAILY NEEDED, Starting on Mon10/10/22 at 1306, Until Mon10/11/22 at 1529, Refractory Constipation, use per package instructions, Post-op/Post-Proc vancomycin (VANCOCIN) injection (CANCELED) NEEDED, Starting on Mon10/10/22 at 1000, Until Mon10/10/22 at 1302, Intra-op/Intra-Proc 1000 (Given - Provider: Lazarus Coronado MD) zolpidem (AMBIEN) tablet 5 mg 5 mg, Oral, DAILY AT BEDTIME NEEDED, Starting on Mon10/10/22 at 2100, Until Mon10/11/22 at 1529, Sleep, Post-op/Post-Proc Scheduled Medication Order 05/07/2023 05/08/2023 05/09/2023 acetaminophen (TYLENOL) tablet 1,000 mg 1,000 mg, Oral, EVERY 6 HOURS NON-STANDARD, First dose on Mon05/08/23 at 1300, Until Discontinued, , Post-op/Post-Proc 1331 (Given - Provider: Keira Qiu RN)1821 (Given - Provider: Keira Qiu RN) 0054 (Given - Provider: Denise Treviño RN)0833 (Given - Provider: Keira Qiu RN)1418 (Given - Provider: Keira Qiu RN) amLODIPine (NORVASC) tablet 5 mg 5 mg, Oral, DAILY, First dose on Mon05/08/23 at 2000, Until Discontinued 2037 (Given - Provider: eDnise Treivño RN) Aspirin tablet delayed release 81 mg 81 mg, Oral, EVERY 12 HOURS, First dose on Mon05/09/23 at 0900, Until Discontinued, Start in AM day after surgery, Post-op/Post-Proc 0833 (Given - Provid er: Keira Qiu RN) Aspirin tablet delayed release 81 mg 81 mg, Oral, DAILY, First dose on Mon05/10/23 at 0900, Until Discontinued Atorvastatin (LIPITOR) tablet 80 mg 80 mg, Oral, DAILY, First dose on Mon05/08/23 at 2000, Until Discontinued 2037 (Given - Provider: Denise Treviño, BRENDA) buPROPion (WELLBUTRIN) tablet XL 150 mg (COMPLETED) 150 mg, Oral, ONCE, 1 dose, On Mon05/08/23 at 1415, Do not crush, chew, or divide. 1344 (Given - Provider: Keira Qiu RN) buPROPion (WELLBUTRIN) tablet XL 300 mg (CANCELED) 300 mg, Oral, DAILY, First dose on Mon05/08/23 at 1230, Until Discontinued 1331 (Given - Provider: Keira Qiu RN) buPROPion (WELLBUTRIN) tablet XL 450 mg 450 mg, Oral, DAILY, First dose on Mon05/09/23 at 0900, Until Discontinued, Do not crush, chew, or divide. 0833 (Given - Provid er: Keira Qiu RN) ceFAZolin (ANCEF) 2 g in dextrose 100 mL premix IVPB (COMPLETED) 2 g, Intravenous, Administer over 30 Minutes, EVERY 8 HOURS NON-STANDARD, 3 doses, First dose on Mon05/08/23 at 1600, Last dose on Mon05/09/23 at 0800, Post-op/Post-Proc 1650 ($$New Bag$$ - Provider: Keira Qiu RN) 0055 ($$New Bag$$ - Provider: Denise Treviño RN)0700 (Stopped - Provider: Keira Qiu RN - Comment: not running upon arrival to floor for shift)0833 ($$New Bag$$ - Provider: Keira Qiu RN)0903 (Stopped - Provider: Keira Qiu RN) dexAMETHasone (DECADRON) injection 10 mg (COMPLETED) 10 mg, Intravenous, EVERY 24 HOURS, 1 dose, First dose on Mon05/09/23 at 1100, 24 hours post op, Post-op/Post-Proc 1157 (Given - Provid er: Keira Qiu RN) Docusate (COLACE) capsule 100 mg 100 mg, Oral, 2 TIMES DAILY, First dose on Mon05/08/23 at 1100, Until Discontinued, Post-op/Post-Proc 1057 (Not Given - Provider: Keira Qiu RN - Reason: Other)1650 (Given - Provider: Keira Qiu RN) 0833 (Given - Provider: Keira Qiu RN)1700 (Canceled Entry - Provider: System Discharge - Comment: Automatically canceled at discontinue of medication order) Finasteride (PROSCAR) tablet 5 mg 5 mg, Oral, DAILY, First dose on Mon05/08/23 at 2000, Until Discontinued, Do not split, break, crush or open this medication. Contact pharmacy if altered route or dose needed. 2037 (Given - Provider: Denise Treviño RN) Ketorolac (TORADOL) injection 7.5 mg 7.5 mg, Intravenous, EVERY 6 HOURS, 12 doses, First dose on Mon05/08/23 at 1200, Last dose on Mon05/11/23 at 0600, Post-op/Post-Proc 1330 (Given - Provider: Keira Qiu RN)1821 (Given - Provider: Keira Qiu RN) 0054 (Given - Provider: Denise Treviño RN)0549 (Given - Provider: Denise Treviño RN)1157 (Given - Provider: Keira Qiu RN) Lisinopril (PRINIVIL) tablet 40 mg 40 mg, Oral, DAILY, First dose on Mon05/08/23 at 1230, Until Discontinued 2100 (Not Given - Provider: Denise Treviño RN - Reason: Patient/family refused - Comment: This medication rescheduled by previous RN d/t patient returning back from surgery. Patient states he will take the next dose tomorrow in the AM.) 08 (Given - Provider: Keira Qiu RN) Metoprolol succinate (TOPROL-XL) tablet XL 50 mg 50 mg, Oral, DAILY, First dose on Mon05/08/23 at 2000, Until Discontinued, Slow release product. Do not crush. Extended release can be cut in half. 2037 (Given - Provider: Denise Treviño RN) Pantoprazole (PROTONIX) tablet DR 40 mg 40 mg, Oral, DAILY, First dose on Mon05/08/23 at 1230, Until Discontinued, Swallow whole; do not crush or chew., Indications: Inpt Stress Ulcer Prophylaxis 1331 (Given - Provider: Keira Qiu RN) 0833 (Given - Provider: Keira Qiu RN) Ropivacaine (NAROPIN) 1 % 400 mg, EPINEPHrine PF (ADRENALIN) 1 MG/ML 1 mg, Ketorolac (TORADOL) 30 MG/ML 30 mg, cloNIDine 100 MCG/ML 179 mcg, Sodium chloride 0.9% 45 mL 88.79 mL (total volume) (COMPLETED) Intra-articular, INTRA-OP ONCE, 1 dose, Starting on Mon05/08/23 at 0900, Until Discontinued, 88.79 mL, To be mixed by pharmacy NOT for IV use, Intra-op/Intra-Proc 0951 (Given - Provider: Debi Wiggins RN) Tamsulosin HCl (FLOMAX) capsule 0.4 mg 0.4 mg, Oral, DAILY, First dose on Mon05/08/23 at 1230, Until Discontinued, Slow release product. Do not chew or crush 1331 (Given - Provider: Keira Qiu RN) 0833 (Given - Provider: Keira Qiu RN) traZODone (DESYREL) tablet 50 mg 50 mg, Oral, DAILY AT BEDTIME, First dose on Mon05/08/23 at 2100, Until Discontinued 2037 (Given - Provider: Denise Treviño RN) Continuous Medication Order 05/07/2023 05/08/2023 05/09/2023 ropivacaine (NAROPIN) 0.2 % On-Q pump 750 mL Surgical Site, CONTINUOUS, Starting on Mon05/08/23 at 0900, Until Mon05/09/23 at 1750, Recovery to Continue 1022 ($$New Bag$$ - Provider: Chyna Atkins RN - Comment: verified unclamped with lonnie GUTIERREZ at 2 mL)1619 (Rate/Dose Verify - Provider: Keira Qiu RN) Sodium chloride 0.9% IV solution Intravenous, at 100 mL/hr, CONTINUOUS, Starting on Mon05/08/23 at 0715, Until Mon05/09/23 at 1750, Pre-op/Pre-Proc 0734 ($$New Bag$$ - Provider: Keira Qiu RN)1015 (Paused - Provider: MERRY Steele - Comment: Switch to gravity)1016 (Restarted - Provider: MERRY Steele)1057 (Stopped - Provider: Keira Qiu RN) Sodium chloride 0.9% IV solution Intravenous, at 100 mL/hr, CONTINUOUS, Starting on Mon05/08/23 at 1100, Until Mon05/09/23 at 1750, Convert IV to PRN adapter if adequate oral intake, Post-op/Post-Proc 1057 (Rate/Dose Verify - Provider: Keira Qiu RN)1619 (Rate/Dose Verify - Provider: Keria Qiu RN)2302 ($$New Bag$$ - Provider: Denise Treviño RN) 0726 (Stopped - Provider: Keira Qiu RN) PRN Medication Order 05/07/2023 05/08/2023 05/09/2023 acetaminophen (TYLENOL) tablet 1,000 mg (COMPLETED) 1,000 mg, Oral, ONCE DIRECTED, 1 dose, Starting on Mon05/08/23 at 0708, Until Discontinued, See admin instructions, Administer 1 hour preop., Pre-op/Pre-Proc 07 (Given - Provider: Keira Qiu RN) bisacodyl (DULCOLAX) suppository 10 mg 10 mg, Rectal, DAILY NEEDED, Starting on Mon05/08/23 at 1051, Until Mon05/09/23 at 1750, constipation, Post-op/Post-Proc ceFAZolin (ANCEF) 2 g in dextrose 100 mL premix IVPB (COMPLETED) 2 g, Intravenous, Administer over 30 Minutes, CAMP COORDINATOR TO PROCEDURE, 1 dose, Starting on Mon05/08/23 at 0708, Until Discontinued, Other, Pre-operative antibiotic, For 15 Minutes, Pre-op/Pre-Proc 0847 (Given - Provider: Boy Vidal, AGRIBUSINESS PROFESSOR-TRANSMITTER ENGINEER) Celecoxib (CELEBREX) capsule 200 mg (COMPLETED) 200 mg, Oral, ONCE DIRECTED, 1 dose, Starting on Mon05/08/23 at 0708, Until Discontinued, See admin instructions, Administer 2 hours preop., Pre-op/Pre-Proc 0730 (Given - Provider: Keira Qiu RN) HYDROmorphone (DILAUDID) injection 0.5 mg 0.5 mg, Intravenous, EVERY 4 HOURS NEEDED, Starting on Mon05/08/23 at 1051, Until Mon05/09/23 at 1750, Severe Pain, Post-op/Post-Proc 2238 (Given - Provider: Denise Treviño RN) Ondansetron 4mg/2ml (ZOFRAN) injection 4 mg 4 mg, Intravenous, EVERY 4 HOURS NEEDED, Starting on Mon05/08/23 at 1051, Until Mon05/09/23 at 1750, Nausea / Vomiting, Post-op/Post-Proc oxyCODONE (ROXICODONE) tablet 5-10 mg 5-10 mg, Oral, EVERY 4 HOURS NEEDED, Starting on Mon05/08/23 at 1051, Until Mon05/09/23 at 1750, moderate-severe pain, If pain unrelieved with oxycodone, contact pharmacist to enter order for Oxycodone ER 10mg PO Q12H for 3 days, Post-op/Post-Proc 0833 (Given - Provid er: Keira Qiu RN - Comment: unable to scan due to connectivity issues, verfied patient and dose with BRENDA Fields. IT aware, working on issue)1418 (Given - Provider: Keira Qiu RN) senna-docusate (SENOKOT-S) 8.6-50 MG per tablet 2 tablet 2 tablet, Oral, 2 TIMES DAILY NEEDED, Starting on Mon05/08/23 at 1051, Until Mon05/09/23 at 1750, constipation, Post-op/Post-Proc Sodium chloride 0.9 % irrigation (CANCELED) NEEDED, Starting on Mon05/08/23 at 0910, Until Mon05/08/23 at 1021, Intra-op/Intra-Proc 0910 (Given - Provider: Lazarus Coronado MD) sodium phosphate w/sodium biphosphate (FLEETS) enema 1 enema 1 enema, Rectal, DAILY NEEDED, Starting on Mon05/08/23 at 1051, Until Mon05/09/23 at 1750, Refractory Constipation, use per package instructions, Post-op/Post-Proc tranexamic acid (LYSTEDA) tablet 1,950 mg (COMPLETED) 1,950 mg, Oral, ONCE DIRECTED, 1 dose, Starting on Mon05/08/23 at 0708, Until Discontinued, See admin instructions, Administer 2 hours preop, Pre-op/Pre-Proc 0730 (Given - Provider: Keira Qiu RN) Vancomycin (VANCOCIN) injection (CANCELED) NEEDED, Starting on Mon05/08/23 at 0910, Until Mon05/08/23 at 1021, Intra-op/Intra-Proc 0910 (Given - Provider: Lazarus Coronado MD) Zolpidem (AMBIEN) tablet 5 mg 5 mg, Oral, DAILY AT BEDTIME NEEDED, Starting on Mon05/08/23 at 1051, Until Mon05/09/23 at 1750, Sleep, Post-op/Post-Proc FOR RECORDS PERTAINING TO PATIENTS WHO ARE OR HAVE BEEN ENROLLED IN A CHEMICAL DEPENDENCY/SUBSTANCEABUSE PROGRAM, SOME INFORMATION MAY BE OMITTED. This clinical summary was aggregated from multiple sources. Caution should be exercised in using it in the provision of clinical care. This summary normalizes information from multiple sources, and as a consequence, information in this document may materially change the coding, format and clinical context of patient data. In addition, data may be omitted in some cases. CLINICAL DECISIONS SHOULD BE BASED ON THE PRIMARY CLINICAL RECORDS. [facility]. provides no warranty or guarantee of the accuracy or completeness of information in this document.
== END 2024-05-24 13:32 | disposition home or self-care (01) ==
LOC: PST 13:31
PROVIDERS: PCP Internal Medicine; Visit Provider Surgery
DX: Z01.818 Encounter for other preprocedural examination (principal); Z12.11 Encounter for screening for malignant neoplasm of colon

== ENCOUNTER 2024-05-29 08:15 | Day surgery (SDC) | payer MEDICARE, SELFPAY ==
--- NOTE | 2024-05-29 | OP_ITS ---
OPERATION DATE: 05/29/2024 PREOPERATIVE DIAGNOSIS: Colorectal screening. POSTOPERATIVE DIAGNOSIS: Severe diverticulosis throughout the colon. PROCEDURE: Colonoscopy to cecum. SURGEON: Bonifacio Rodriguez M.D. ANESTHESIA: Monitored anesthesia care. ESTIMATED BLOOD LOSS: Zero. INDICATIONS AND CONSENT: Patient is a 68-year-old male presents for colorectal screening. Indications, risks, benefits, alternatives of proceeding with colonoscopy were explained extensively to the patient, including the risks of bleeding, colon perforation or anesthetic complications. All of his questions were answered. Informed consent was obtained. PROCEDURE: Patient brought to the operating room, placed in the left lateral decubitus position. Monitored anesthesia care was provided. Rectal exam was performed which showed no masses or blood. The scope was inserted into the anal canal. Under direct visualization, it was advanced. It was advanced to the cecum where cecal markings were clearly identified. There was noted to be a good prep. Upon withdrawal of the scope, mucosal surfaces were carefully examined. There were no mass lesions or polyps. There was noted to be severe diverticulosis throughout the colon, more severe in the descending and sigmoid colon, without inflammatory changes or scarring. The scope was retroflexed in the anal canal. There was no significant hemorrhoidal disease. The scope was then withdrawn. Patient tolerated procedure well, was sent to recovery room in good condition. Follow up screening colonoscopy should be in 10 years, if patient remains in good health. CC: Dr. Jimmy CARL
[2024-05-29 08:41] VITALS: BP 141/78; PULSE 49; TEMP 36.4; O2SAT 96; BMI 28.0
[2024-05-29] MEDS: LACTATED RINGER'S SOLUTION 1,000 ML 50 ML IV (08:49)
[2024-05-29 09:42] VITALS: BP 110/74; PULSE 50; TEMP 36.8; O2SAT 97
[2024-05-29 09:57] VITALS: BP 135/80; PULSE 49; O2SAT 96
[2024-05-29 10:12] VITALS: BP 145/81; PULSE 51; O2SAT 98
== END 2024-05-29 10:12 | disposition home or self-care (01) ==
PROVIDERS: PCP Internal Medicine; Visit Provider Surgery
PROC: (CPT G0121; principal; 2024-05-29 09:20)
DX: Z12.11 Encounter for screening for malignant neoplasm of colon (principal); K57.30 Diverticulosis of large intestine without perforation or abscess without bleeding; I25.10 Atherosclerotic heart disease of native coronary artery without angina pectoris; I10 Essential (primary) hypertension; E78.5 Hyperlipidemia, unspecified; M54.16 Radiculopathy, lumbar region; G47.33 Obstructive sleep apnea (adult) (pediatric); G25.81 Restless legs syndrome; N40.1 Benign prostatic hyperplasia with lower urinary tract symptoms; K21.9 Gastro-esophageal reflux disease without esophagitis; Z87.891 Personal history of nicotine dependence; Z96.659 Presence of unspecified artificial knee joint; Z96.649 Presence of unspecified artificial hip joint; Z95.5 Presence of coronary angioplasty implant and graft
CPT/HCPCS: G0121; J2704

== ENCOUNTER 2024-06-28 06:40 | Outpatient (OUT) | payer MEDICARE, SELFPAY ==
--- OUTSIDE RECORDS SUMMARY | 2024-06-28 06:43 | XMS_ITS | CCD ---
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 Name Role Phone Rudolph Stevan Johnson Unavailable [...] Unavailable Stevan Galdamez DO Primary Care Provider [phone] MD ALAN HENLEY Attending Unavailable LAZARUS CORONADO [...] LAZARUS Referring Unavailable FOSTER, LAZARUS Attending Unavailable ALGHOTHANI, JOAQUIM Attending Unavailable DUNN, Ailyn Dee Attending Unavailable DUNN, Ailyn Dee Attending Unavailable NILL, Bonifacio R Attending Unavailable BALL, STEVAN Referring Unavailable NILL, Bonifacio R Attending Unavailable NILL, Bonifacio R Attending Unavailable BALL, STEVAN Referring Unavailable Allergies Allergy Classification Reported Allergen(s) Allergy Type Date of Onset Reaction(s) Facility (10 sources) patient allergy list reviewed by nurse or physicia Propensity to adverse reactions 7 Comment:Done Attune Other (10 sources) Allergies Reconciled Propensity to adverse reactions Unknown Attune Other (1 source) No Known Medication Allergies; 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: [No Known Medication Allergies] Propensity to adverse reactions (disorder) [facility] Repository Medications Current Medications Medication Drug Class(es) Dates Sig (Normalized) Sig (Original) 3mL syringe (4 sources) Start: 06-19-2020 3mL syringe 3mL syringe, [...] day(s), # 90 tab(s), Refills(s) 3, Pharmacy: [facility] #[facility], 179, cm, 12/05/22 9:44:00 EST, [...] Daily, # 90 tab(s), Refills(s) 3, Pharmacy: [facility] #[facility], 179, cm, 12/03/21 9:55:00 EST, Height/Length [...] by Nasal route once for 1 dose. [place] into the nose as directed. Call 911. [...] pantoprazole 40 mg delayed release oral tablet (17 sources) Proton Pump Inhibitor Start: 04-11-2024 take 1 tablet by mouth once daily Pantoprazole [address] Tab 40 mg = 1 tab(s), Oral, Daily, Refills(s) 0 Start Date: 04/11/24 Status: Ordered Start: 06-14-2023 take 1 tablet by adiel every twelve hours Pantoprazole Sodium 40 MG [...] Nov, Active tadalafil 20 mg oral tablet (4 sources) Phosphodiesterase 5 Inhibitor Start: 07-04-2023 Cialis 20 mg Tab 20 mg = 1 tab(s), Oral, As Directed, take 1-2hrs. prior to sexual activity, # 30 tab(s), Refills(s) 3, Pharmacy: [facility] #[facility], 179, cm, 12/05/22 9:44:00 EST, Height/Length [...] day(s), # 180 cap(s), Refills(s) 3, Pharmacy: [facility] #[facility], 179, cm, 01/01/24 12:08:00 EST, Height/Length Dosing, 90, kg, 01/01/24 12:08:00 EST, Weight Dosing Start Date: 02/12/24 Stop Date: 02/06/25 Status: Ordered Start: 12-05-2022 End: 11-30-2023 take 1 capsule by mouth twice daily tamsulosin 0.4 mg Cap 0.4 mg = 1 cap(s), Oral, BID, X 90 day(s), # 180 cap(s), Refills(s) 3, Pharmacy: [facility] #[facility], 179, cm, 12/05/22 9:44:00 EST, Height/Length [...] Discontinued Start: 06-11-2019 take 1 tablet by adiel once daily Lipitor 80 mg Tab 80 [...] Active docusate sodium 50 mg / sennosides, assisted 8.6 mg oral tablet (2 sources) Start: [...] (2 sources) Antifibrinolytic Agent Start: 05-08-2023 End: 05-08-2023 tranexamic acid (LYSTEDA) tablet 1,950 mg Start: 10-10-2022 End: 10-10-2022 tranexamic acid (LYSTEDA) ta blet 1,950 mg zolpidem tartrate 5 mg oral tablet (2 sources) gamma-Aminobutyric Acid-ergic Agonist Start: 05-08-2023 End: 05-09-2023 Zolpidem (AMBIEN) tablet 5 mg Start: 10-10-2022 End: 10-11-2022 zolpidem (AMBIEN) tablet 5 m g Problems Active Problems Problem Classification Problem Date Documented Da te Episodic/Chronic Abdominal hernia (17 sources) Umbilical hernia; 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: [Umbilical hernia with obstruction but no gangrene] Onset: 9 06-18-2019 Episodic Abdominal pain (15 sources) Periumbilical pain; 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: [Periumbilical pain] Onset: 9 Episodic Acute bronchitis (13 sources) Acute bronchitis; 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: [Acute bronchitis due to other specified organisms] Episodic Coronary atherosclerosis and other heart disease (20 sources) Coronary arteriosclerosis; 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: [Atherosclerotic heart disease of red devil coronary artery without angina pectoris] Onset: 2 Chronic Deficiency and other anemia (20 sources) Anemia; 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: [Anemia, unspecified] Episodic Disorders of lipid metabolism (20 sources) Pure hypercholesterolemia; 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: [Pure hypercholesterolemia, unspecified] Onset: 2 Chronic Diverticulosis and diverticulitis (2 sources) Diverticular disease 04-11-2024 Chronic Esophageal disorders (20 sources) Gastroesophageal reflux disease; 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: [Gastro-esophageal reflux disease without esophagitis] Chronic Essential hypertension (20 sources) Benign hypertension; 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: [Hypertensive disorder] Onset: 5 06-18-2019 Chronic Genitourinary symptoms and ill-defined conditions (16 sources) Blood in urine; 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: [Microscopic hematuria] [...] sources) H/O: high risk medication; 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: [Other [place] [facility]current[facility] 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] Episodic Other aftercare (12 sources) Long-term current use of 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; 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: [Other [place] [facility] [place] ([place] 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] Episodic Other aftercare (1 source) Other [place] [facility] 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; 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: [Other [place] [facility] [place] ([place] 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] Episodic Other and ill-defined heart disease (4 sources) Heart disease 06-23-2019 Chronic Other and unspecified benign neoplasm (2 sources) Lipoma of spermatic cord; 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] Onset: 4 Episodic Other circulatory disease (2 sources) H/O: hypertension; [...] Chronic Other ear and sense organ disorders (2 sources) Hearing loss 04-11-2024 Chronic Other endocrine disorders (2 sources) Testicular hypofunction; 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: [Testicular hypofunction] Onset: 3 Chronic Other endocrine disorders (4 sources) Male hypogonadism 12-18-2020 Chronic Other endocrine [...] Other hereditary and degenerative nervous system conditions (16 sources) Restless legs; 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: [Restless legs syndrome] [...] serum enzymes] Episodic Other male genital disorders (7 sources) Male erectile dysfunction, unspecified; 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: [Erectile dysfunction] Onset: 3 Chronic Other male genital disorders (2 sources) H/O: male genital disorder; 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: [Personal history of other genital system and obstetric disorders] Episodic Other male genital disorders (4 sources) Retrograde ejaculation 06-05-2020 Episodic Other nervous [...] Chronic Other nutritional; endocrine; and metabolic disorders (13 sources) Overweight; 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: [Overweight] 06-27-2024 Episodic Other nutritional; endocrine; and metabolic disorders (1 source) Overweight; 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: [Overweight] Episodic Other nutritional; endocrine; and metabolic disorders (1 source) Overweight in adulthood with body mass index of 25 or more but less than 30 06-27-2024 Episodic Other screening for suspected conditions (not mental disorders or infectious disease) (20 sources) Raised prostate specific antigen; 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: [Elevated prostate specific antigen [PSA]] Onset: 3 Episodic Other upper respiratory disease (14 sources) Seasonal allergic rhinitis; 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: [Other seasonal allergic rhinitis] Onset: 7 04-11-2024 Chronic Other upper respiratory disease (1 source) Other seasonal allergic rhinitis; 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: [Other seasonal allergic rhinitis] Onset: 7 Chronic Otitis media and related conditions (15 sources) Otosclerosis; 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: [Otosclerosis, unspecified] Episodic Residual codes; unclassified (14 sources) Obstructive sleep apnea syndrome; 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: [Obstructive [...] of mental health and substance abuse codes (17 sources) Ex-smoker; 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: [History of tobacco use] [...] with and (suspected) exposure to COVID-19] Unclassified (2 sources) Patient encounter status 04-23-2024 Past or Other Problems Problem Classification Problem Date Documented Da te Episodic/Chronic Acute posthemorrhagic anemia (20 sources) Acute posthemorrhagic [...] Spondylosis; intervertebral disc disorders; other back problems (14 sources) Low back pain; 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: [Low back [...] Test Name Value Interpretation Reference Range Facility Reminderson 05-30-2024 Reminders Reminders From: Nati Shane LPN To: N - Clinical; Sent: 05/30/2024 12:26:52 EDT Show up: 04/29/2034 07:00:00 EDT Subject: colonoscopy recall Due Date/Time: 05/29/2034 07:00:00 EDT Reminder/Recall Patient due for screening colonoscopy 05/29/2034. Normal [facility] Consent for Procedure/Surger yon 04-24-2024 Consent for Procedure/Surgery [id number] 0TIFF Normal [facility] Ambulatory Visit Summaryon 0 04-23-2024 Ambulatory Visit Summary SETH BELL :1955 Visit Date:04/23/2024 Ambulatory Visit Instructions Your Diagnosis Screening for malignant neoplasm of colon Your Care Team Attending Physician - ELY SHEETS, Bonifacio Dee Primary Care Physician - STEVAN GALDAMEZ DO Referring Physician - STEVAN GALDAMEZ DO This Is Your Medications List Contact prescribing [...] Follow-Up Appointments Monday 8:30 AM EST With: SHAUN SHEETS, Ailyn eDe Where: [facility] Physician Referralon 024 Physician Referral [id number] TIFF Normal [facility] Office Visiton 03-20-2024 Follow-up visit [id number] Seth Bell 1955 M Date Provider Department Center 03/20/2024 Vahe8-JOAQUIM CHAUDHARY [facility] Family History Problem Relation Age of Onset Dementia Mother Family Status - Relation Status Age at Mother Alive Father Level of Service:48486 VA OFFICE/OUTPATIENT ESTABLISHED LOW MDM 20 MIN Normal [facility] Patient Educationon 01-01-20 24 Patient Education Oncology [...] Where to find more information ? The [employer]: www.cancer.org ? [employer]: www.auanet.org Contact a health care [...] adds flu (more content not included)... Normal [facility] Urology Office/Clinic Noteon 01-01-2024 Urology Office/Clinic [...] level drawn in 11/2020 - 556 ([phone]). [1] 4. Erectile dysfunction (N52.9: Male erectile dysfunction, unspecified) Cialis 20mg PRN. [2] Follow-up With When Contact Information SHAUN SHEETS, Ailyn Dee, TOO In 1 year [facility] [address], [place] [phone] Additional Instructions: w/ PSA Patient Education Prostate [...] times pe (more content not included)... Normal [facility] Comment on above: Result Comment: Elec tronically Signed By: Ailyn DUNN MD\.br\Date and Time Signed: 01/01/24 13:00 EST\.br\Electronically Co-Signed By: Pamela Quezada\.br\Date and Time Co-Signed: 01/01/24 12:59 EST Lab Reportson 12-29-2023 Lab Reports [id number] 0TIFF Normal [facility] SURGICAL PATH REPORTon 06-07 SURGICAL PATH REPORT [facility] Department of Pathology [address] [place] [phone] Name: SETH BELL : 1955 [facility] [id number] Number: Gender Male [facility] : n: Admit 67 years Attending ALAN HENLEY Age: Provider: Ordering ALAN HENLEY Provider: Consulti Surgical Pathology Report ng: ACCESSION: COLLECTED DATE/TIME: RECEIVED DATE/TIME: PATHOLOGIST: [id number] 06/03/2023 12:04 EDT 06/05/2023 12:04 EDT BHARTI SHEETS, MARK MELENDEZ Final Diagnosis Report for [facility] [place] ANTRAL STOMACH, BIOPSY: - ANTRAL TYPE [...] specimen is entirely submitted in one cassette. LICHA/adan 06/05/2023 Tissue pathology report for: [facility], [address] [place] [address]; ____ ____ Print 06/07/2023 11:16 EDT Number: Date/Time: [facility] Department of Pathology [address] [place] [phone] Name: SETH BELL : 1955 [facility] [id number] Number: [facility] : n: Admit 67 years Attending ALAN HELNEY Age: Provider: Ordering ALAN HENLEY Provider: Consulti Surgical Pathology Report ng: ACCESSION: COLLECTED DATE/TIME: RECEIVED DATE/TIME: PATHOLOGIST: [id number] 06/03/2023 12:04 EDT 06/05/2023 12:04 EDT BHARTI SHEETS, MARK MELENDEZ Gross Description PATHOLOGY SERVICES PROVIDED BY [employer] (CLIA #[id number]) in cooperation with [facility] at [address] [place] [address] (CLIA #[id number]) Microscopic Diagnosis The final diagnosis is based on a microscopic exam of sales representative public utilities sections. NOTE: One or more of the reagents used to perform assays on this specimen MAY have contained components considered to be analyte specific reagents ( ASRs). ASRs have not been cleared or approved by the U.S. Food and Drug Administration. The performance characteristics of these assays have been determined by the Department of Pathology at [facility]. This assay was performed subsequent to the H and E examination. Appropriate positive and negative controls were examined with appropriate reactivity. Codes CPT CODE: 87069 + [id number] ____ ____ Print 06/07/2023 11:16 EDT Number: Date/Time: Normal [facility] Comment on above: Performed By: #### 9 [id number] #### [facility] Services [address] [place] [id number] Cut Off Saw Operator Metal: Rainer Doss MD BASIC METABOLIC PANELon 04-21 Anion gap [Moles/Vol] 7 mmol/L Low [facility] Calcium [Mass/Vol] 8.1 mg/dL Low [facility] Chloride [Moles/Vol] 103 mmol/L [facility] Comment on above: Please note: Triglyc eride levels of 600mg/dL or higher may positively bias chloride results by approximately 2.1 mmol CO2 [Moles/Vol] 22 mmol/L [facility] Creatinine [Mass/Vol] 0.60 mg/dL Low [facility] GFR COMMENT Average GFR for 60-6 9 years old = 85. [facility] Comment on above: Chronic Kidney disea se, GFR = <60. Kidney failure, GFR = <15. The GFR estimate is not adjusted for extreme body surface area or acute process, nor has it been validated for women or ethnic groups other than and . Testing performed at [place], [place] [address] GFR/1.73 sq M.predicted among blacks MDRD (S/P/Bld) [Vol rate/Area] 172 mL/min/{1.73_m2} ml/min/1.73sq .m [facility] GFR/1.73 sq M.predicted among non-blacks MDRD (S/P/Bld) [Vol rate/Area] 142 mL/min/{1.73_m2} ml/min/1.73sq .m [facility] Glucose post fast [Mass/Vol] 136 mg/dL High [facility] Comment on above: NORMAL <100 mg/dL PREDIABETES 101-126 mg/dL DIABETES 126 mg/dL or higher Interpretation and review of laboratory results Abnormal [facility] Potassium [Moles/Vol] 4.0 mmol/L [facility] Sodium [Moles/Vol] 132 mmol/L Low [facility] Urea nitrogen [Mass/Vol] 18 mg/dL [facility] BMP FASTINGon 05-09-2023 Anion gap [Moles/Vol] 7 mmol/L Low 8-16 [facility] Comment on above: Performed By: #### B MPF ####[place] [address]#### ACBC ####[place] [address] Calcium [Mass/Vol] 8.1 mg/dL Low 8.4-10.2 [facility] Comment on above: Performed By: #### B MPF ####Testing performed at [address] [address]#### ACBC ####Testing performed at [address] [address] Chloride [Moles/Vol] 103 mmol/L Normal 98-107 [facility] Comment on above: Result Comment: Grey romero note: Triglyceride levels of 600mg/dL or higher may positively bias chloride results by approximately 2.1 mmol Performed By: #### B MPF ####Testing performed at [address] [address]#### ACBC ####Testing performed at [place] [id number] CO2 [Moles/Vol] 22 mmol/L Normal 22-30 [facility] Comment on above: Performed By: #### B MPF ####Testing performed at [address] [address]#### ACBC ####[place] [address] Creatinine [Mass/Vol] 0.60 mg/dL Low 0.7-1.2 [facility] Comment on above: Performed By: #### B MPF ####Testing performed at [place] [id number]#### ACBC ####Testing performed at [address] [address] EST. GFR, 172 ml/min/1.73sq.m [facility] Comment on above: Performed By: #### B MPF ####[place] [address]#### ACBC ####Testing performed at [address] [address] EST. GFR,Non 142 ml/min/1.73sq.m [facility] Comment on above: Performed By: #### B MPF ####[place] [address]#### ACBC ####Testing performed at [address] [address] GFR Information Average GFR for 60-6 9 years old = 85. [facility] Comment on above: Result Comment: [employer] Machinist katarzyna Kidney disease, GFR = <60. Kidney failure, GFR = <15. The GFR estimate is not adjusted for extreme body surface area or acute process, nor has it been validated for women or ethnic groups other than and . Testing performed at [place] [address] Performed By: #### B MPF ####[place] [address]#### ACBC ####Testing performed at [address] [address] Glucose [Mass/Vol] 136 mg/dL High 70-100 [facility] Comment on above: Result Comment: NORMAL <100 mg/dL PREDIABETES 101-126 mg/dL DIABETES 126 mg/dL or higher Performed By: #### B MPF ####Testing performed at [address] [address]#### ACBC ####Testing performed at [address] [address] Potassium [Moles/Vol] 4.0 mmol/L Normal 3.5-5.1 [facility] Comment on above: Performed By: #### B MPF ####Testing performed at [address] [address]#### ACBC ####Testing performed at [address] [address] Sodium [Moles/Vol] 132 mmol/L Low 137-145 [facility] Comment on above: Performed By: #### B MPF ####Testing performed at [address] [address]#### ACBC ####Testing performed at [address] [address] Urea nitrogen [Mass/Vol] 18 mg/dL Normal 7-20 [facility] Comment on above: Performed By: #### B MPF ####Testing performed at [address] [address]#### ACBC ####Testing performed at [address] [address] CBCon 05-09-2023 ABSOLUTE BAS 0.0 10*3/uL Normal 0.0-0.2 [facility] Comment on above: Performed By: #### B MPF ####Testing performed at [address] [address]#### ACBC ####Testing performed at [address] [address] ABSOLUTE EOS 0.0 10*3/uL Normal 0.0-0.7 [facility] Comment on above: Performed By: #### B MPF ####Testing performed at [address] [place] [address]#### ACBC ####Testing performed at [address] [place] [address] ABSOLUTE NEUTROPHIL COUNT 10.1 10*3/uL High 1.4-6.5 [facility] Comment on above: Performed By: #### B MPF ####Testing performed at [address] [place] [address]#### ACBC ####Testing performed at [address] [place] [address] Basophils/100 WBC (Bld) 0.0 % Normal 0.0-2.0 [facility] Comment on above: Performed By: #### B MPF ####Testing performed at [address] [place] [address]#### ACBC ####Testing performed at [address] [place] [address] DTYPE AUTO DIFF Normal [facility] Comment on above: Performed By: #### B MPF ####Testing performed at [address] [place] [address]#### ACBC ####Testing performed at [address] [place] [address] Eosinophils/100 WBC (Bld) 0.0 % Normal 0.0-11.0 [facility] Comment on above: Performed By: #### B MPF ####Testing performed at [address] [place] [address]#### ACBC ####Testing performed at [address] [place] [address] Lymphocytes (Bld) [#/Vol] 0.8 10*3/uL Low 1.2-3.4 [facility] Comment on above: Performed By: #### B MPF ####Testing performed at [address] [place] [address]#### ACBC ####Testing performed at [address] [address] Lymphocytes/100 WBC (Bld) 6.7 % Low 20.0-55.0 [facility] Comment on above: Performed By: #### B MPF ####Testing performed at [address] [address]#### ACBC ####Testing performed at [address] [address] Monocytes (Bld) [#/Vol] 1.0 10*3/uL High 0.0-0.7 [facility] Comment on above: Performed By: #### B MPF ####Testing performed at [place] [id number]#### ACBC ####Testing performed at [address] [address] Monocytes/100 WBC (Bld) 8.3 % Normal 0.0-10.0 [facility] Comment on above: Performed By: #### B MPF ####Testing performed at [place] [id number]#### ACBC ####Testing performed at [address] [address] Neutrophils/100 WBC (Bld) 85.0 % High 37.0-75.0 [facility] Comment on above: Performed By: #### B MPF ####Testing performed at [place] [id number]#### ACBC ####Testing performed at [address] [address] Erythrocyte distribution width (RBC) [Ratio] 13.8 % Normal 11.5-14.5 [facility] Comment on above: Performed By: #### B MPF ####Testing performed at [address] [address]#### ACBC ####Testing performed at [address] [address] Hematocrit (Bld) [Volume fraction] 25.8 % Low 42.0-52.0 [facility] Comment on above: Performed By: #### B MPF ####Testing performed at [place] [id number]#### ACBC ####Testing performed at [address] [address] Hemoglobin (Bld) [Mass/Vol] 9.0 g/dL Low 14.0-18.0 [facility] Comment on above: Performed By: #### B MPF ####[place] [address]#### ACBC ####Testing performed at [place] [id number] MCH (RBC) [Entitic mass] 31.3 pg Normal 26.0-35.0 [facility] Comment on above: Performed By: #### B MPF ####[place] [address]#### ACBC ####[place] [address] MCHC (RBC) [Mass/Vol] 34.8 g/dL Normal 27.0-37.0 [facility] Comment on above: Performed By: #### B MPF ####[place] [address]#### ACBC ####Testing performed at [place] [id number] MCV (RBC) [Entitic vol] 90.0 fL Normal 80.0-100.0 [facility] Comment on above: Performed By: #### B MPF ####Testing performed at [place] [id number]#### ACBC ####Testing performed at [address] [address] Platelet mean volume (Bld) [Entitic vol] 9.1 fL Normal 7.4-11.0 [facility] Comment on above: Performed By: #### B MPF ####[place] [address]#### ACBC ####Testing performed at [address] [address] Platelets (Bld) [#/Vol] 149 10*3/uL Normal 130-400 [facility] Comment on above: Performed By: #### B MPF ####[place] [address]#### ACBC ####[place] [address] RBC (Bld) [#/Vol] 2.87 10*6/uL Low 4.0-6.1 [facility] Comment on above: Performed By: #### B MPF ####[place] [address]#### ACBC ####[place] [address] WBC (Bld) [#/Vol] 11.9 10*3/uL High 3.6-11.0 [facility] Comment on above: Performed By: #### B MPF ####[place] [address]#### ACBC ####Testing performed at [place] [id number] CBC, EDIF, PLATELETon 2022 ABSOLUTE BASOPHIL COUNT 0.0 10*3/uL 0.0 - 0.2 10*3/uL [facility] Basophils/100 WBC (Bld) 0.0 % 0.0 - 2.0 % [facility] Differential cell count method Nom (Bld) AUTO DIFF % [facility] Eosinophils (Bld) [#/Vol] 0.0 10*3/uL 0.0 - 0.7 10*3/uL [facility] Eosinophils/100 WBC (Bld) 0.0 % 0.0 - 11.0 % [facility] Erythrocyte distribution width (RBC) [Ratio] 13.8 % 11.5 - 14.5 % [facility] Hematocrit (Bld) [Volume fraction] 25.8 % Low 42.0 - 52.0 % [facility] Hemoglobin (Bld) [Mass/Vol] 9.0 g/dL Low [facility] Interpretation and review of laboratory results Abnormal [facility] Lymphocytes (Bld) [#/Vol] 0.8 10*3/uL Low 1.2 - 3.4 10*3/uL [facility] Lymphocytes/100 WBC (Bld) 6.7 % Low 20.0 - 55.0 % [facility] MCH (RBC) [Entitic mass] 31.3 pg 26.0 - 35.0 PG [facility] MCHC (RBC) [Mass/Vol] 34.8 g/dL [facility] MCV (RBC) [Entitic vol] 90.0 fL [facility] Monocytes (Bld) [#/Vol] 1.0 10*3/uL High 0.0 - 0.7 10*3/uL [facility] Monocytes/100 WBC (Bld) 8.3 % 0.0 - 10.0 % [facility] Neutrophils (Bld) [#/Vol] 10.1 10*3/uL High 1.4 - 6.5 10*3/uL [facility] Neutrophils/100 WBC (Bld) 85.0 % High 37.0 - 75.0 % [facility] Platelet mean volume (Bld) [Entitic vol] 9.1 fL [facility] Platelets (Bld) [#/Vol] 149 10*3/uL 130 - 400 10*3/uL [facility] RBC (Bld) [#/Vol] 2.87 10*6/uL Low 4.0 - 6.1 10*6/uL [facility] WBC (Bld) [#/Vol] 11.9 10*3/uL High 3.6 - 11.0 10*3/uL [facility] MRSA SCREENon 05-08-2023 MRSA DNA DALIA+probe Ql (Unsp spec) Negative Normal NEGATIVE [facility] Comment on above: Performed By: #### M RSAST ####Testing performed at [facility] [place] [address] STAPH AUREUS SCREEN Negative Normal NEGATIVE [facility] Comment on above: Result Comment: TEST ING PERFORMED BY PCR Performed By: #### M RSAST ####Testing performed at [address] [address] SCREEN: MRSA ONLY, NARES (IS OLATION SCREEN)on 05-08-2023 MRSA isol Org specific cx Ql (Nose) Negative NEGATIVE [facility] STAPHYOCOCCUS AUREUS BY PCR Negative NEGATIVE [facility] Comment on above: TESTING PERFORMED BY PCR [facility] XR KNEE LEFT 2 VIEWSon 05-08 XR KNEE LEFT 2 VIEWS EXAM: XR KNEE LEFT 2 VIEWS INDICATION: tka COMPARISON: None. TECHNIQUE: Radiographs as described above FINDINGS/IMPRESSION: Status post total knee arthroplasty without evidence of complication. Expected perioperative soft tissue changes. Normal [facility] XR Knee - left 2 Viewson FINDINGS/IMPRESSION: [...] of complication. Expected perioperative soft tissue changes. [facility] Radiology Study observation (narrative) [facility] XR Knee - left 2 ViewsAndrewe d By: Clinton Dickens on 05-08-2023 [facility] Work Phone: CBCon 04-13-2023 ABSOLUTE BAS 0.0 10*3/uL Normal 0.0-0.2 [facility] Comment on above: Performed By: #### U MAC #### Testing performed at [place] [id number] ABSOLUTE EOS 0.2 10*3/uL Normal 0.0-0.7 [facility] Comment on above: Performed By: #### U MAC #### Testing performed at [place] [id number] ABSOLUTE NEUTROPHIL COUNT 3.8 10*3/uL Normal 1.4-6.5 [facility] Comment on above: Performed By: #### U MAC #### Testing performed at [place] [id number] Basophils/100 WBC (Bld) 0.5 % Normal 0.0-2.0 [facility] Comment on above: Performed By: #### U MAC #### Testing performed at [address] [address] DTYPE AUTO DIFF Normal [facility] Comment on above: Performed By: #### U MAC #### Testing performed at [address] [address] Eosinophils/100 WBC (Bld) 2.6 % Normal 0.0-11.0 [facility] Comment on above: Performed By: #### U MAC #### Testing performed at [address] [address] Lymphocytes (Bld) [#/Vol] 1.3 10*3/uL Normal 1.2-3.4 [facility] Comment on above: Performed By: #### U MAC #### Testing performed at [address] [address] Lymphocytes/100 WBC (Bld) 22.9 % Normal 20.0-55.0 [facility] Comment on above: Performed By: #### U MAC #### Testing performed at [address] [address] Monocytes (Bld) [#/Vol] 0.5 10*3/uL Normal 0.0-0.7 [facility] Comment on above: Performed By: #### U MAC #### Testing performed at [address] [address] Monocytes/100 WBC (Bld) 8.9 % Normal 0.0-10.0 [facility] Comment on above: Performed By: #### U MAC #### Testing performed at [address] [address] Neutrophils/100 WBC (Bld) 65.1 % Normal 37.0-75.0 [facility] Comment on above: Performed By: #### U MAC #### Testing performed at [address] [address] Erythrocyte distribution width (RBC) [Ratio] 14.6 % High 11.5-14.5 [facility] Comment on above: Performed By: #### U MAC #### Testing performed at [address] [address] Hematocrit (Bld) [Volume fraction] 40.8 % Low 42.0-52.0 [facility] Comment on above: Performed By: #### U MAC #### Testing performed at [address] [address] Hemoglobin (Bld) [Mass/Vol] 13.5 g/dL Low 14.0-18.0 [facility] Comment on above: Performed By: #### U MAC #### Testing performed at [address] [address] MCH (RBC) [Entitic mass] 29.9 pg Normal 26.0-35.0 [facility] Comment on above: Performed By: #### U MAC #### Testing performed at [address] [address] MCHC (RBC) [Mass/Vol] 33.0 g/dL Normal 27.0-37.0 [facility] Comment on above: Performed By: #### U MAC #### Testing performed at [address] [address] MCV (RBC) [Entitic vol] 90.7 fL Normal 80.0-100.0 [facility] Comment on above: Performed By: #### U MAC #### Testing performed at [address] [address] Platelet mean volume (Bld) [Entitic vol] 8.9 fL Normal 7.4-11.0 [facility] Comment on above: Performed By: #### U MAC #### Testing performed at [address] [address] Platelets (Bld) [#/Vol] 157 10*3/uL Normal 130-400 [facility] Comment on above: Performed By: #### U MAC #### Testing performed at [address] [address] RBC (Bld) [#/Vol] 4.50 10*6/uL Normal 4.0-6.1 [facility] Comment on above: Performed By: #### U MAC #### Testing performed at [address] [address] WBC (Bld) [#/Vol] 5.9 10*3/uL Normal 3.6-11.0 [facility] Comment on above: Performed By: #### U MAC #### Testing performed at [address] [address] CMP FASTINGon 04-13-2023 A:G RATIO 1.6 RATIO Normal 1.3-2.2 [facility] Comment on above: Performed By: #### U MAC #### Testing performed at [address] [address] ALBUMIN 4.4 G/dl Normal 3.5-5.0 [facility] Comment on above: Performed By: #### U MAC #### Testing performed at [address] [address] ALP [Catalytic activity/Vol] 52 U/L Normal 38-126 [facility] Comment on above: Performed By: #### U MAC #### Testing performed at [address] [address] ALT [Catalytic activity/Vol] 41 U/L Normal 17-63 [facility] Comment on above: Performed By: #### U MAC #### Testing performed at [address] [address] AST [Catalytic activity/Vol] 29 U/L Normal 15-41 [facility] Comment on above: Performed By: #### U MAC #### Testing performed at [address] [address] Bilirubin [Mass/Vol] 1.6 mg/dL High 0.2-1.2 [facility] Comment on above: Performed By: #### U MAC #### Testing performed at [address] [address] Calcium [Mass/Vol] 9.8 mg/dL Normal 8.4-10.2 [facility] Comment on above: Performed By: #### U MAC #### Testing performed at [address] [address] Chloride [Moles/Vol] 105 mmol/L Normal 98-107 [facility] Comment on above: Performed By: #### U MAC #### Testing performed at [address] [address] CO2 [Moles/Vol] 24 mmol/L Normal 22-30 [facility] Comment on above: Performed By: #### U MAC #### Testing performed at [address] [address] Creatinine [Mass/Vol] 0.67 mg/dL Normal 0.66-1.25 [facility] Comment on above: Performed By: #### U MAC #### Testing performed at [address] [address] EST. GFR, 151 ml/min/1.73sq.m [facility] Comment on above: Performed By: #### U MAC #### Testing performed at [address] [address] EST. GFR,Non 125 ml/min/1.73sq.m [facility] Comment on above: Performed By: #### U MAC #### Testing performed at [address] [address] GFR Information Average GFR for 60-6 9 years old = 85. Normal [facility] Comment on above: Result Comment: [employer]atarzyna Kidney disease, GFR = <60. Kidney failure, GFR = <15. The GFR estimate is not adjusted for extreme body surface area or acute process, nor has it been validated for women or ethnic groups other than and . Performed By: #### U MAC #### Testing performed at [address] [address] Glucose [Mass/Vol] 106 mg/dL High 70-100 [facility] Comment on above: Result Comment: NORMAL <100 mg/dL PREDIABETES 101-126 mg/dL DIABETES 126 mg/dL or higher Performed By: #### U MAC #### Testing performed at [address] [address] Potassium [Moles/Vol] 4.2 mmol/L Normal 3.5-5.1 [facility] Comment on above: Performed By: #### U MAC #### Testing performed at [address] [address] Protein [Mass/Vol] 7.2 g/dL Normal 6.3-8.2 [facility] Comment on above: Performed By: #### U MAC #### Testing performed at [place] [id number] Sodium [Moles/Vol] 137 mmol/L Normal 136-145 [facility] Comment on above: Performed By: #### U MAC #### Testing performed at [place] [id number] Urea nitrogen [Mass/Vol] 17 mg/dL Normal 7-20 [facility] Comment on above: Performed By: #### U MAC #### Testing performed at [address] [address] HEMOGLOBIN A1Con 04-13-2023 Glucose [Mass/Vol] 105 mg/dL Normal [facility] Comment on above: Performed By: #### U MAC #### [place] [address] HbA1c (Bld) [Mass fraction] 5.3 % Normal <6 [facility] Comment on above: Result Comment: NORMAL <5.7% PREDIABETES 5.7-6.4% DIABETES 6.5% OR HIGHER Performed By: #### U MAC #### [place] [address] MRSA SCREENon 04-13-2023 MRSA DNA DALIA+probe Ql (Unsp spec) Negative Normal NEGATIVE [facility] Comment on above: Performed By: #### M RSAST ####[place] [address] STAPH AUREUS SCREEN Positive Abnormal NEGATIVE [facility] Comment on above: Result Comment: TEST ING PERFORMED BY PCR Performed By: #### M RSAST ####Testing performed at [address] [address] PROTIMEon 04-13-2023 INR Coag (PPP) [Relative time] 1.02 {INR} Normal 0.85-1.10 [facility] Comment on above: Result Comment: 2.0-3.0 THERAPEUTIC RANGE 2.5-3.5 MECHANICAL VALVE RANGE Performed By: #### U MAC #### Testing performed at [place] [id number] PT Coag (PPP) [Time] 13.5 s Normal 11.8-14.4 [facility] Comment on above: Performed By: #### U MAC #### Testing performed at [address] [address] TYPE AND SCREEN CROSSMATCH C ONVERTIBLEon 04-13-2023 TYPE AND SCREEN CROSSMATCH CONVERTIBLE WORKUP EXPIRES 05/11/2023,2359 ABO/RH(D) O POSITIVE ANTIBODY SCREEN NEGATIVE ARM BAND NUMBER [id number] Normal [facility] Comment on above: Performed By: #### U MAC #### Testing performed at [address] [address] URINE MACROSCOPICon 04-13-20 Bilirubin Ql (U) Negative Normal NEGATIVE [facility] Comment on above: Performed By: #### U MAC #### Testing performed at [address] [address] Clarity (U) CLEAR Normal CLEAR [facility] Comment on above: Performed By: #### U MAC #### Testing performed at [address] [address] Color (U) YELLOW Normal YELLOW [facility] Comment on above: Performed By: #### U MAC #### Testing performed at [address] [address] Glucose Ql (U) Negative Normal NEGATIVE [facility]3] Comment on above: Performed By: #### U MAC #### Testing performed at [address] [address] pH (U) 6.0 [pH] Normal 5.0-7.0 [facility] Comment on above: Performed By: #### U MAC #### Testing performed at [address] [address] URINE HEMOGLOBIN Negative Normal NEGATIVE [facility] Comment on above: Performed By: #### U MAC #### Testing performed at [address] [address] URINE KETONE Negative Normal NEGATIVE [facility] Comment on above: Performed By: #### U MAC #### Testing performed at [address] [address] URINE LEUKOTEST Negative Normal NEGATIVE [facility] Comment on above: Performed By: #### U MAC #### Testing performed at [address] [address] URINE NITRATES Negative Normal NEGATIVE [facility]3] Comment on above: Performed By: #### U MAC #### Testing performed at [address] [address] URINE SPEC GRAVITY 1.025 Normal 1.010-1.025 [facility] Comment on above: Performed By: #### U MAC #### Testing performed at [address] [address] URINE TOTAL PROTEIN Negative Normal NEGATIVE [facility] Comment on above: Performed By: #### U MAC #### Testing performed at [address] [address] Urobilinogen Qn (U) 1.0 {Tee'U}/dL Normal 0.2-1.0 [facility] Comment on above: Performed By: #### U MAC #### Testing performed at [address] [address] BASIC METABOLIC PANELon 11-2 Anion gap [Moles/Vol] 9 mmol/L [facility] Calcium [Mass/Vol] 8.4 mg/dL [facility] Chloride [Moles/Vol] 105 mmol/L [facility] CO2 [Moles/Vol] 22 mmol/L [facility] Creatinine [Mass/Vol] 0.68 mg/dL [facility] GFR COMMENT Average GFR for 60-6 9 years old = 85. [facility] Comment on above: Chronic Kidney disea se, GFR = <60. Kidney failure, GFR = <15. The GFR estimate is not adjusted for extreme body surface area or acute process, nor has it been validated for women or ethnic groups other than and . GFR/1.73 sq M.predicted among blacks MDRD (S/P/Bld) [Vol rate/Area] 149 mL/min/{1.73_m2} ml/min/1.73sq .m [facility] GFR/1.73 sq M.predicted among non-blacks MDRD (S/P/Bld) [Vol rate/Area] 123 mL/min/{1.73_m2} ml/min/1.73sq .m [facility] Glucose post fast [Mass/Vol] 153 mg/dL High [facility] Comment on above: NORMAL <100 mg/dL PREDIABETES 101-126 mg/dL DIABETES 126 mg/dL or higher Interpretation and review of laboratory results Abnormal [facility] Potassium [Moles/Vol] 3.7 mmol/L [facility] Sodium [Moles/Vol] 136 mmol/L [facility] Urea nitrogen [Mass/Vol] 16 mg/dL [facility] BMP FASTINGon 10-11-2022 Anion gap [Moles/Vol] 9 mmol/L Normal 8-16 [facility] Comment on above: Performed By: #### A CBC, BMPF #### Testing performed at [address] [address] Calcium [Mass/Vol] 8.4 mg/dL Normal 8.4-10.2 [facility] Comment on above: Performed By: #### A CBC, BMPF #### Testing performed at [address] [address] Chloride [Moles/Vol] 105 mmol/L Normal 98-107 [facility] Comment on above: Performed By: #### A CBC, BMPF #### Testing performed at [address] [address] CO2 [Moles/Vol] 22 mmol/L Normal 22-30 [facility] Comment on above: Performed By: #### A CBC, BMPF #### Testing performed at [address] [address] Creatinine [Mass/Vol] 0.68 mg/dL Normal 0.66-1.25 [facility] Comment on above: Performed By: #### A CBC, BMPF #### Testing performed at [address] [address] EST. GFR, 149 ml/min/1.73sq.m Normal [facility] Comment on above: Performed By: #### A CBC, BMPF #### Testing performed at [address] [address] EST. GFR,Non 123 ml/min/1.73sq.m Normal [facility] Comment on above: Performed By: #### A CBC BMPF #### Testing performed at [address] [address] GFR Information Average GFR for 60-6 9 years old = 85. Normal [facility] Comment on above: Result Comment: [employer] katarzyna Kidney disease, GFR = <60. Kidney failure, GFR = <15. The GFR estimate is not adjusted for extreme body surface area or acute process, nor has it been validated for women or ethnic groups other than and . Performed By: #### A CBC, BMPF #### Testing performed at [place] [id number] Glucose [Mass/Vol] 153 mg/dL High 70-100 [facility] Comment on above: Result Comment: NORMAL <100 mg/dL PREDIABETES 101-126 mg/dL DIABETES 126 mg/dL or higher Performed By: #### A CBC, BMPF #### Testing performed at [address] [address] Potassium [Moles/Vol] 3.7 mmol/L Normal 3.5-5.1 [facility] Comment on above: Performed By: #### A CBC, BMPF #### Testing performed at [address] [address] Sodium [Moles/Vol] 136 mmol/L Normal 136-145 [facility] Comment on above: Performed By: #### A CBC, BMPF #### Testing performed at [address] [address] Urea nitrogen [Mass/Vol] 16 mg/dL Normal 7-20 [facility] Comment on above: Performed By: #### A CBC, BMPF #### Testing performed at [address] [address] CBCon 10-11-2022 ABSOLUTE BAS 0.0 10*3/uL Normal 0.0-0.2 [facility] Comment on above: Performed By: #### A CBC, BMPF #### Testing performed at [address] [address] ABSOLUTE EOS 0.0 10*3/uL Normal 0.0-0.7 [facility] Comment on above: Performed By: #### A CBC, BMPF #### Testing performed at [address] [address] ABSOLUTE NEUTROPHIL COUNT 7.8 10*3/uL High 1.4-6.5 [facility] Comment on above: Performed By: #### A CBC, BMPF #### Testing performed at [address] [address] Basophils/100 WBC (Bld) 0.1 % Normal 0.0-2.0 [facility] Comment on above: Performed By: #### A CBC, BMPF #### Testing performed at [address] [address] DTYPE AUTO DIFF Normal [facility] Comment on above: Performed By: #### A CBC, BMPF #### Testing performed at [address] [address] Eosinophils/100 WBC (Bld) 0.1 % Normal 0.0-11.0 [facility] Comment on above: Performed By: #### A CBC, BMPF #### Testing performed at [address] [address] Erythrocyte distribution width (RBC) [Ratio] 12.8 % Normal 11.5-14.5 [facility] Comment on above: Performed By: #### A CBC, BMPF #### Testing performed at [address] [address] Hematocrit (Bld) [Volume fraction] 29.8 % Low 42.0-52.0 [facility] Comment on above: Performed By: #### A CBC, BMPF #### Testing performed at [address] [address] Hemoglobin (Bld) [Mass/Vol] 10.1 g/dL Low 14.0-18.0 [facility] Comment on above: Performed By: #### A CBC, BMPF #### Testing performed at [address] [address] Lymphocytes (Bld) [#/Vol] 0.8 10*3/uL Low 1.2-3.4 [facility] Comment on above: Performed By: #### A CBC, BMPF #### Testing performed at [address] [address] Lymphocytes/100 WBC (Bld) 8.4 % Low 20.0-55.0 [facility] Comment on above: Performed By: #### A CBC, BMPF #### Testing performed at [address] [address] MCH (RBC) [Entitic mass] 30.2 pg Normal 26.0-35.0 [facility] Comment on above: Performed By: #### A CBC, BMPF #### Testing performed at [address] [address] MCHC (RBC) [Mass/Vol] 33.8 g/dL Normal 27.0-37.0 [facility] Comment on above: Performed By: #### A CBC, BMPF #### Testing performed at [address] [address] MCV (RBC) [Entitic vol] 89.3 fL Normal 80.0-100.0 [facility] Comment on above: Performed By: #### A CBC, BMPF #### Testing performed at [address] [address] Monocytes (Bld) [#/Vol] 1.1 10*3/uL High 0.0-0.7 [facility] Comment on above: Performed By: #### A CBC, BMPF #### Testing performed at [address] [address] Monocytes/100 WBC (Bld) 10.8 % High 0.0-10.0 [facility] Comment on above: Performed By: #### A CBC, BMPF #### Testing performed at [address] [address] Neutrophils/100 WBC (Bld) 80.6 % High 37.0-75.0 [facility] Comment on above: Performed By: #### A CBC, BMPF #### Testing performed at [address] [address] Platelet mean volume (Bld) [Entitic vol] 9.3 fL Normal 7.4-11.0 [facility] Comment on above: Performed By: #### A CBC, BMPF #### Testing performed at [address] [address] Platelets (Bld) [#/Vol] 146 10*3/uL Normal 130.0-400.0 [facility] Comment on above: Performed By: #### A CBC, BMPF #### Testing performed at [address] [address] RBC (Bld) [#/Vol] 3.33 10*6/uL Low 4.0-6.1 [facility] Comment on above: Performed By: #### A CBC, BMPF #### Testing performed at [address] [address] WBC (Bld) [#/Vol] 9.7 10*3/uL Normal 3.6-11.0 [facility] Comment on above: Performed By: #### A CBC, BMPF #### Testing performed at [address] [address] CBC, EDIF, PLATELETon 2021 ABSOLUTE BASOPHIL COUNT 0.0 10*3/uL 0.0 - 0.2 10*3/uL [facility] Basophils/100 WBC (Bld) 0.1 % 0.0 - 2.0 % [facility] Differential cell count method Nom (Bld) AUTO DIFF % [facility] Eosinophils (Bld) [#/Vol] 0.0 10*3/uL 0.0 - 0.7 10*3/uL [facility] Eosinophils/100 WBC (Bld) 0.1 % 0.0 - 11.0 % [facility] Erythrocyte distribution width (RBC) [Ratio] 12.8 % 11.5 - 14.5 % [facility] Hematocrit (Bld) [Volume fraction] 29.8 % Low 42.0 - 52.0 % [facility] Hemoglobin (Bld) [Mass/Vol] 10.1 g/dL Low [facility] Interpretation and review of laboratory results Abnormal [facility] Lymphocytes (Bld) [#/Vol] 0.8 10*3/uL Low 1.2 - 3.4 10*3/uL [facility] Lymphocytes/100 WBC (Bld) 8.4 % Low 20.0 - 55.0 % [facility] MCH (RBC) [Entitic mass] 30.2 pg 26.0 - 35.0 PG [facility] MCHC (RBC) [Mass/Vol] 33.8 g/dL [facility] MCV (RBC) [Entitic vol] 89.3 fL [facility] Monocytes (Bld) [#/Vol] 1.1 10*3/uL High 0.0 - 0.7 10*3/uL [facility] Monocytes/100 WBC (Bld) 10.8 % High 0.0 - 10.0 % [facility] Neutrophils (Bld) [#/Vol] 7.8 10*3/uL High 1.4 - 6.5 10*3/uL [facility] Neutrophils/100 WBC (Bld) 80.6 % High 37.0 - 75.0 % [facility] Platelet mean volume (Bld) [Entitic vol] 9.3 fL [facility] Platelets (Bld) [#/Vol] 146 10*3/uL 130.0 - 400.0 10*3/uL [facility] RBC (Bld) [#/Vol] 3.33 10*6/uL Low 4.0 - 6.1 10*6/uL [facility] WBC (Bld) [#/Vol] 9.7 10*3/uL 3.6 - 11.0 10*3/uL [facility] NOVEL CORONAVIRUSon 11-21-20 22 NARRATIVE This test was performed using isothermal DALIA and has been approved as Emergency Use Authorization (EUA) for the qualitative detection [id number] nucleic acid. Normal [facility] Comment on above: Performed By: #### C OVID #### [place] [address] SARS-CoV-2 (COVID-19) RNA DALIA+probe Ql (Unsp spec) Not detected Normal NOT DETECTED [facility] Comment on above: Result Comment: Nega tive [...] #### C OVID #### Testing performed at [place] [id number] NOVEL CORONAVIRUS LAB 1 - NA SOPHARYNGEALon 10-10-2022 NARRATIVE -1 This test was performed using isothermal DALIA and has been approved as Emergency Use Authorization (EUA) for the qualitative detection [id number] nucleic acid. [facility] SARS-CoV-2 (COVID-19) RNA DALIA+probe Ql (Unsp spec) Not detected NOT DETECTED [facility] Comment on above: Negative results do [...] patient is critically ill or clinically deteriorating. [facility] RAPID TOX SCREEN,URINEon AMPHETAMINE Negative Normal NEGATIVE [facility] Comment on above: Result Comment: <500 ng/ml CUTOFF Performed By: #### R TOX #### Testing performed at [address] [address] BARBITURATES Negative Normal NEGATIVE [facility] Comment on above: Result Comment: <200 ng/ml CUTOFF Performed By: #### R TOX #### Testing performed at [address] [address] BENZODIAZEPINES Negative Normal NEGATIVE [facility] Comment on above: Result Comment: <150 ng/ml CUTOFF Performed By: #### R TOX #### Testing performed at [address] [address] BUPRENORPHINE Negative Normal NEGATIVE [facility] Comment on above: Result Comment: <10 ng/ml CUTOFF Performed By: #### R TOX #### Testing performed at [address] [place] [address] CANNABINOIDS Positive Abnormal NEGATIVE [facility] Comment on above: Result Comment: <50 ng/ml CUTOFF *Unconfirmed Screening Result* Unconfirmed screening results are to be used only for medical treatment purposes. Performed By: #### R TOX #### Testing performed at [address] [place] [address] COCAINE Negative Normal NEGATIVE [facility] Comment on above: Result Comment: <150 ng/ml CUTOFF Performed By: #### R TOX #### Testing performed at [address] [address] METHADONE Negative Normal NEGATIVE [facility] Comment on above: Result Comment: <200 ng/ml CUTOFF Performed By: #### R TOX #### Testing performed at [address] [place] [address] METHAMPHETAMINE Negative Normal NEGATIVE [facility] Comment on above: Result Comment: <500 ng/ml CUTOFF Performed By: #### R TOX #### Testing performed at [address] [address] OPIATES Negative Normal NEGATIVE [facility] Comment on above: Result Comment: <100 ng/ml CUTOFF Performed By: #### R TOX #### Testing performed at [address] [place] [address] OXYCODONE Positive Abnormal NEGATIVE [facility] Comment on above: Result Comment: <100 ng/ml CUTOFF *Unconfirmed Screening Result* Unconfirmed screening results are to be used only for medical treatment purposes. Performed By: #### R TOX #### Testing performed at [address] [address] PHENCYCLIDINE Negative Normal NEGATIVE [facility] Comment on above: Result Comment: <25 ng/ml CUTOFF Performed By: #### R TOX #### Testing performed at [address] [place] [address] PROPOXYPHENE Negative Normal NEGATIVE [facility] Comment on above: Result Comment: <300 ng/ml CUTOFF Performed By: #### R TOX #### Testing performed at [address] [address] TRICYCLIC ANTIDEPRESSANTS Positive Abnormal NEGATIVE [facility] Comment on above: Result Comment: <300 ng/ml CUTOFF *Unconfirmed Screening Result* Unconfirmed screening results are to be used only for medical treatment purposes. Performed By: #### R TOX #### Testing performed at [address] [address] REPEAT ABO/RHon 10-10-2022 REPEAT ABO/RH Positive Normal [facility] Comment on above: Performed By: #### R ABRH #### Testing performed at [address] [address] REPEAT ABO/RH (D) TYPINGon 12-10-2021 ABO and Rh group Nom (Bld ) [facility] TOXICOLOGY DRUG SCREEN, URIN Alexander 10-10-2022 Amphetamine (U) [Mass/Vol] Negative NEGATIVE NG/ML [facility] Comment on above: <500 ng/ml CUTOFF Barbiturates Screen Ql (U) Negative NEGATIVE NG/ML [facility] Comment on above: <200 ng/ml CUTOFF Benzodiazepines Ql (U) Negative NEGATIVE NG/ML [facility] Comment on above: <150 ng/ml CUTOFF Benzoylecgonine Ql (U) Negative NEGATIVE NG/ML [facility] Comment on above: <150 ng/ml CUTOFF Buprenorphine Ql (U) Negative NEGATIV E NG/ML [facility] Comment on above: <10 ng/ml CUTOFF Cannabinoids Screen Ql (U) Positive Abnormal NEGATIVE NG/ML [facility] Comment on above: <50 ng/ml CUTOFF *Unconfirmed Screening Result* Unconfirmed screening results are to be used only for medical treatment purposes. Interpretation and review of laboratory results Abnormal [facility] Methadone Screen Ql (U) Negative NEGATIVE NG/ML [facility] Comment on above: <200 ng/ml CUTOFF Methamphetamine (U) [Mass/Vol] Negative NEGATIVE NG/ML [facility] Comment on above: <500 ng/ml CUTOFF Opiates Screen Ql (U) Negative NEGATIVE NG/ML [facility] Comment on above: <100 ng/ml CUTOFF oxyCODONE Ql (U) Positive Abnormal NEGATIVE NG/ML [facility] Comment on above: <100 ng/ml CUTOFF *Unconfirmed Screening Result* Unconfirmed screening results are to be used only for medical treatment purposes. Phencyclidine Screen method >25 ng/mL Ql (U) Negative NEGATIVE NG/ML [facility] Comment on above: <25 ng/ml CUTOFF Propoxyphene+Norprop oxyphene Screen Ql (U) Negative NEGATIVE NG/ML [facility] Comment on above: <300 ng/ml CUTOFF Tricyclic antidepressants Screen Ql (U) Positive Abnormal NEGATIVE NG/ML [facility] Comment on above: <300 ng/ml CUTOFF *Unconfirmed Screening Result* Unconfirmed screening results are to be used only for medical treatment purposes. [facility] XR PELVIS AP ONLYon 10-10-20 XR PELVIS [...] no periprosthetic fracture or dislocation identified. Normal [facility] XR Pelvis APon 10-10-2022 IMPRESSION: Left hip [...] arthroplasty, no periprosthetic fracture or dislocation identified. [facility] Radiology Study observation (narrative) [facility] XR Pelvis APOrdered By: Hayden Reno on 10-10-2022 [facility] Work Phone: CBCon 09-15-2022 ABSOLUTE BAS 0.0 10*3/uL Normal 0.0-0.2 [facility] Comment on above: Performed By: #### C MPF, ACBC, PT ####Testing performed at [address] [address] ABSOLUTE EOS 0.1 10*3/uL Normal 0.0-0.7 [facility] Comment on above: Performed By: #### C MPF, ACBC, PT ####Testing performed at [address] [address] ABSOLUTE NEUTROPHIL COUNT 4.3 10*3/uL Normal 1.4-6.5 [facility] Comment on above: Performed By: #### C MPF, ACBC, PT ####Testing performed at [address] [address] Basophils/100 WBC (Bld) 0.6 % Normal 0.0-2.0 [facility] Comment on above: Performed By: #### C MPF, ACBC, PT ####Testing performed at [address] [address] DTYPE AUTO DIFF Normal [facility] Comment on above: Performed By: #### C MPF, ACBC, PT ####Testing performed at [address] [address] Eosinophils/100 WBC (Bld) 2.0 % Normal 0.0-11.0 [facility] Comment on above: Performed By: #### C MPF, ACBC, PT ####Testing performed at [address] [address] Lymphocytes (Bld) [#/Vol] 1.2 10*3/uL Normal 1.2-3.4 [facility] Comment on above: Performed By: #### C MPF, ACBC, PT ####Testing performed at [address] [address] Lymphocytes/100 WBC (Bld) 19.4 % Low 20.0-55.0 [facility] Comment on above: Performed By: #### C MPF, ACBC, PT ####[place] [address] Monocytes (Bld) [#/Vol] 0.5 10*3/uL Normal 0.0-0.7 [facility] Comment on above: Performed By: #### C MPF, ACBC, PT ####Testing performed at [place] [id number] Monocytes/100 WBC (Bld) 8.8 % Normal 0.0-10.0 [facility] Comment on above: Performed By: #### C MPF, ACBC, PT ####Testing performed at [place] [id number] Neutrophils/100 WBC (Bld) 69.2 % Normal 37.0-75.0 [facility] Comment on above: Performed By: #### C MPF, ACBC, PT ####[place] [address] Erythrocyte distribution width (RBC) [Ratio] 12.3 % Normal 11.5-14.5 [facility] Comment on above: Performed By: #### C MPF, ACBC, PT ####Testing performed at [place] [id number] Hematocrit (Bld) [Volume fraction] 40.9 % Low 42.0-52.0 [facility] Comment on above: Performed By: #### C MPF, ACBC, PT ####Testing performed at [place] [id number] Hemoglobin (Bld) [Mass/Vol] 13.9 g/dL Low 14.0-18.0 [facility] Comment on above: Performed By: #### C MPF, ACBC, PT ####Testing performed at [place] [id number] MCH (RBC) [Entitic mass] 30.6 pg Normal 26.0-35.0 [facility] Comment on above: Performed By: #### C MPF, ACBC, PT ####Testing performed at [address] [address] MCHC (RBC) [Mass/Vol] 34.0 g/dL Normal 27.0-37.0 [facility] Comment on above: Performed By: #### C MPF, ACBC, PT ####Testing performed at [address] [address] MCV (RBC) [Entitic vol] 89.9 fL Normal 80.0-100.0 [facility] Comment on above: Performed By: #### C MPF, ACBC, PT ####Testing performed at [address] [address] Platelet mean volume (Bld) [Entitic vol] 8.8 fL Normal 7.4-11.0 [facility] Comment on above: Performed By: #### C MPF, ACBC, PT ####Testing performed at [address] [address] Platelets (Bld) [#/Vol] 200 10*3/uL Normal 130.0-400.0 [facility] Comment on above: Performed By: #### C MPF, ACBC, PT ####Testing performed at [address] [address] RBC (Bld) [#/Vol] 4.55 10*6/uL Normal 4.0-6.1 [facility] Comment on above: Performed By: #### C MPF, ACBC, PT ####Testing performed at [address] [address] WBC (Bld) [#/Vol] 6.2 10*3/uL Normal 3.6-11.0 [facility] Comment on above: Performed By: #### C MPF, ACBC, PT ####Testing performed at [address] [address] CMP FASTINGon 09-15-2022 A:G RATIO 1.8 RATIO Normal 1.3-2.2 [facility] Comment on above: Performed By: #### C MPF, ACBC, PT ####Testing performed at [address] [address] ALBUMIN 4.6 G/dl Normal 3.5-5.0 [facility] Comment on above: Performed By: #### C MPF, ACBC, PT ####Testing performed at [address] [place] [address] ALP [Catalytic activity/Vol] 76 U/L Normal 38-126 [facility] Comment on above: Performed By: #### C MPF, ACBC, PT ####Testing performed at [address] [place] [address] ALT [Catalytic activity/Vol] 31 U/L Normal 17-63 [facility] Comment on above: Performed By: #### C MPF, ACBC, PT ####Testing performed at [address] [address] AST [Catalytic activity/Vol] 22 U/L Normal 15-41 [facility] Comment on above: Performed By: #### C MPF, ACBC, PT ####Testing performed at [address] [address] Bilirubin [Mass/Vol] 1.3 mg/dL High 0.2-1.2 [facility] Comment on above: Performed By: #### C MPF, ACBC, PT ####Testing performed at [address] [address] Calcium [Mass/Vol] 9.9 mg/dL Normal 8.4-10.2 [facility] Comment on above: Performed By: #### C MPF, ACBC, PT ####Testing performed at [address] [address] Chloride [Moles/Vol] 100 mmol/L Normal 98-107 [facility] Comment on above: Performed By: #### C MPF, ACBC, PT ####Testing performed at [address] [address] CO2 [Moles/Vol] 23 mmol/L Normal 22-30 [facility] Comment on above: Performed By: #### C MPF, ACBC, PT ####Testing performed at [address] [address] Creatinine [Mass/Vol] 0.60 mg/dL Low 0.66-1.25 [facility] Comment on above: Performed By: #### C CLAUDIA ALMODOVAR, PT ####Testing performed at [address] [address] EST. GFR, 172 ml/min/1.73sq.m [facility] Comment on above: Performed By: #### C MPF ACBC, PT ####Testing performed at [place] [id number] EST. GFR,Non 142 ml/min/1.73sq.m Normal [facility] Comment on above: Performed By: #### C CLAUDIA ALMODOVAR, PT ####[place] [address] GFR Information Average GFR for 60-6 9 years old = 85. Normal [facility] Comment on above: Result Comment: [employer]ist katarzyna Kidney disease, GFR = <60. Kidney failure, GFR = <15. The GFR estimate is not adjusted for extreme body surface area or acute process, nor has it been validated for women or ethnic groups other than and . Performed By: #### C CLAUDIA ALMODOVAR, PT ####Testing performed at [place] [id number] Glucose [Mass/Vol] 127 mg/dL High 70-100 [facility] Comment on above: Result Comment: NORMAL <100 mg/dL PREDIABETES 101-126 mg/dL DIABETES 126 mg/dL or higher Performed By: #### C MPPieter ACBC, PT ####Testing performed at [place] [id number] Potassium [Moles/Vol] 4.1 mmol/L Normal 3.5-5.1 [facility] Comment on above: Performed By: #### C MPPieter ACBC, PT ####Testing performed at [address] [address] Protein [Mass/Vol] 7.1 g/dL Normal 6.3-8.2 [facility] Comment on above: Performed By: #### C MPF ACBC, PT ####Testing performed at [address] [address] Sodium [Moles/Vol] 136 mmol/L Normal 136-145 [facility] Comment on above: Performed By: #### C MPF, ACBC, PT ####Testing performed at [address] [address] Urea nitrogen [Mass/Vol] 12 mg/dL Normal 7-20 [facility] Comment on above: Performed By: #### C MPF, ACBC, PT ####Testing performed at [address] [address] HEMOGLOBIN A1Con 09-15-2022 Glucose [Mass/Vol] 105 mg/dL Normal [facility] Comment on above: Performed By: #### H A1CT #### Testing performed at [address] [address] HbA1c (Bld) [Mass fraction] 5.3 % Normal <6 [facility] Comment on above: Result Comment: NORMAL <5.7% PREDIABETES 5.7-6.4% DIABETES 6.5% OR HIGHER Performed By: #### H A1CT #### Testing performed at [address] [address] MRSA SCREENon 09-15-2022 MRSA DNA DALIA+probe Ql (Unsp spec) Not detected Normal NOT DETECTED [facility] Comment on above: Performed By: #### M RSAST #### Testing performed at [address] [address] STAPH AUREUS SCREEN Detected Abnormal NOT DETECTED [facility] Comment on above: Performed By: #### M RSAST #### Testing performed at [address] [address] PROTIMEon 09-15-2022 INR Coag (PPP) [Relative time] 1.08 {INR} Normal 0.85-1.10 [facility] Comment on above: Result Comment: 2.0-3.0 THERAPEUTIC RANGE 2.5-3.5 MECHANICAL VALVE RANGE Performed By: #### C MPF, ACBC, PT ####Testing performed at [address] [address] PT Coag (PPP) [Time] 14.1 s Normal 11.8-14.4 [facility] Comment on above: Performed By: #### C MPF, ACBC, PT ####[place] [address] RAPID TOX SCREEN,URINEon AMPHETAMINE Negative Normal NEGATIVE [facility] Comment on above: Result Comment: <500 ng/ml CUTOFF Performed By: #### R TOX, UMAC ####[place] [address] BARBITURATES Negative Normal NEGATIVE [facility] Comment on above: Result Comment: <200 ng/ml CUTOFF Performed By: #### R TOX, UMAC ####[place] [address] BENZODIAZEPINES Negative Normal NEGATIVE [facility] Comment on above: Result Comment: <150 ng/ml CUTOFF Performed By: #### R TOX, UMAC ####[place] [address] BUPRENORPHINE Negative Normal NEGATIVE [facility] Comment on above: Result Comment: <10 ng/ml CUTOFF Performed By: #### R TOX, UMAC ####[place] [address] CANNABINOIDS Positive Abnormal NEGATIVE [facility] Comment on above: Result Comment: <50 ng/ml CUTOFF *Unconfirmed Screening Result* Unconfirmed screening results are to be used only for medical treatment purposes. Performed By: #### R TOX, UMAC ####[place] [address] COCAINE Negative Normal NEGATIVE [facility] Comment on above: Result Comment: <150 ng/ml CUTOFF Performed By: #### R TOX, UMAC ####[place] [address] METHADONE Negative Normal NEGATIVE [facility] Comment on above: Result Comment: <200 ng/ml CUTOFF Performed By: #### R TOX, UMAC ####[place] [address] METHAMPHETAMINE Negative Normal NEGATIVE [facility] Comment on above: Result Comment: <500 ng/ml CUTOFF Performed By: #### R TOX, UMAC ####Testing performed at [address] [address] OPIATES Negative Normal NEGATIVE [facility] Comment on above: Result Comment: <100 ng/ml CUTOFF Performed By: #### R TOX, UMAC ####Testing performed at [address] [address] OXYCODONE Positive Abnormal NEGATIVE [facility] Comment on above: Result Comment: <100 ng/ml CUTOFF *Unconfirmed Screening Result* Unconfirmed screening results are to be used only for medical treatment purposes. Performed By: #### R TOX, UMAC ####Testing performed at [address] [address] PHENCYCLIDINE Negative Normal NEGATIVE [facility] Comment on above: Result Comment: <25 ng/ml CUTOFF Performed By: #### R TOX, UMAC ####Testing performed at [address] [address] PROPOXYPHENE Negative Normal NEGATIVE [facility] Comment on above: Result Comment: <300 ng/ml CUTOFF Performed By: #### R TOX, UMAC ####Testing performed at [address] [address] TRICYCLIC ANTIDEPRESSANTS Positive Abnormal NEGATIVE [facility] Comment on above: Result Comment: <300 ng/ml CUTOFF *Unconfirmed Screening Result* Unconfirmed screening results are to be used only for medical treatment purposes. Performed By: #### R TOX, UMAC ####Testing performed at [address] [address] TYPE AND SCREEN CROSSMATCH C ONVERTIBLEon 09-15-2022 TYPE AND SCREEN CROSSMATCH CONVERTIBLE WORKUP EXPIRES 10/13/2022,2359 ABO/RH(D) O POSITIVE ANTIBODY SCREEN NEGATIVE ARM BAND NUMBER [id number] Normal [facility] Comment on above: Performed By: #### T SCC #### Testing performed at [address] [address] URINE MACROSCOPICon 09-15-20 22 Bilirubin Ql (U) Negative Normal NEGATIVE [facility] Comment on above: Performed By: #### R TOX, UMAC ####Testing performed at [address] [place] [address] Clarity (U) CLEAR Normal CLEAR [facility] Comment on above: Performed By: #### R TOX, UMAC ####Testing performed at [address] [place] [address] Color (U) YELLOW Normal YELLOW [facility] Comment on above: Performed By: #### R TOX, UMAC ####Testing performed at [address] [place] [address] Glucose Ql (U) Negative Normal NEGATIVE [facility] Comment on above: Performed By: #### R TOX, UMAC ####Testing performed at [address] [place] [address] pH (U) 5.5 [pH] Normal 5.0-7.0 [facility] Comment on above: Performed By: #### R TOX, UMAC ####Testing performed at [address] [place] [address] URINE HEMOGLOBIN Negative Normal NEGATIVE [facility] Comment on above: Performed By: #### R TOX, UMAC ####Testing performed at [address] [place] [address] URINE KETONE Negative Normal NEGATIVE [facility] Comment on above: Performed By: #### R TOX, UMAC ####Testing performed at [address] [address] URINE LEUKOTEST Negative Normal NEGATIVE [facility] Comment on above: Performed By: #### R TOX, UMAC ####Testing performed at [address] [place] [address] URINE NITRATES Negative Normal NEGATIVE [facility]] Comment on above: Performed By: #### R TOX, UMAC ####Testing performed at [address] [place] [address] URINE SPEC GRAVITY 1.015 Normal 1.010-1.025 [facility] Comment on above: Performed By: #### R TOX, UMAC ####Testing performed at [address] [place] [address] URINE TOTAL PROTEIN Negative Normal NEGATIVE [facility] Comment on above: Performed By: #### R TOX, UMAC ####Testing performed at [address] [address] Urobilinogen Qn (U) 0.2 {Tee'U}/dL Normal 0.2-1.0 [facility] Comment on above: Performed By: #### R TOX, UMAC ####Testing performed at [address] [address] Office Visit (Audiology)on 0 07-15-2022 Follow-up visit Diagnoses/Problems Bilateral sensorineural hearing loss (389.18) (H90.3) Otosclerosis of left ear (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 Excellent word understanding and normal middle ear function bilaterally. Treatment Plan: 1. Follow-up with Dr. Rojas 2. Retest hearing in conjunction with medical management 3. Consider binaural amplification [id number] Adult Risk Screening There are no spiritual/cultural [...] seems to be unchanged. Patient's preferred language: Nauruan Preferred language of the parent, legal guardian or surrogate decision-maker of this minor or incapacitated patient: Not Applicable No overt signs of domestic violence/neglect/abuse . No referral made to [employer]. Pain not interfering with optimal level of [...] understanding (100%) at 70 dB HL.. Speech corporate receptionist threshold (30 dB HL in the right and 30 dB HL in the left) in agreement with pure tone averages. Signatures Electronically signed by : Parag Carver,TUYET-A; Jul 15 2022 1:41PM EST (Author) Normal [facility] XR HIP LT 2 3V W PELVISon [...] by: DAVIN LYNN Date: 2022-06-15 18:[address] [facility] Established Visit (Otolaryng ology)on 06-03-2022 Established [...] This note was created using speech recognition bench assembler battery software/or [employer] bench assembler battery services. Despite proofreading, several typographical errors might be present that might affect the meaning of the content. Please call with any questions. By signing my name below, I, Tiff Petit, attest that this documentation has been prepared under the direction and in the presence of Dr. Rojas. All medical record entries made by the Scribe were at my direction and personally dictated [...] DAILY AT BEDTIME Vitals Vital Signs Recorded: [id number] 10:48AM [id number] F Height5 ft 4.5 in Mmeinp649 lb 8 oz BMI Vkbtdikzcx97.69 kg/m2 BSA Calculated1.91 Tobacco Useb) No Falls Screening (Age 18+)b) One or more falls in the last year Pain Scale8/10 'Scores and Scales' Signatures Electronically signed by : Jamie Rojas MD; Jun 03 2022 12:52PM EST (Author) Normal [facility] Order Reconciliationon 05-11 Order Reconciliation Page 1 [...] mL/hr IntraVenous Clinician Notes: Tiera-operative order ONLY 22-Ju (more content not included)... Normal [facility] CORONAVIRUS 2019, SCREEN ASY MPTOMATICon 05-10-2022 SARS-CoV-2 (COVID-19) RNA DALIA+probe Ql (Unsp spec) Not detected Normal Not Detected [facility] Comment on above: Result Comment: [...] patient management decisions. Fact sheet for providers: https://www.fda.gov/media/765083/download Fact sheet for patients: https://www.fda.gov/media/670150/download This test has received FDA Emergency Use Authorization (EUA) and has been verified by [facility] ([facility]). This test is only authorized for the duration of time that circumstances exist to justify the authorization of the emergency use of in vitro diagnostic tests for the detection of SARS-CoV-2 virus and/or diagnosis of COVID-19 infection under section 564(b)(1) of the Act, 21 U.S.C. 360bbb-3(b)(1), unless the authorization is terminated or revoked sooner. [facility] is certified under CLIA-88 as qualified to perform high complexity testing. Testing is performed in the [facility] laboratories located at [address] [place] [address]. Performed By: #### C OVSC #### [address] [place] [address] Covid 19 Resultson 2 SARS-CoV-2 (COVID-19) RNA [...] You may also be contacted by the [facility] to see if any of your close [...] or Naproxen (Aleve) can also be used. Nuei-wrb-fcapzxm cough and cold medicines can be used according to the instructions on the package. Some omfs-lzm-gikitbg medicines also contain acetaminophen. Make sure you [...] water are not available, use alcohol-based hand pressurised container filler. Avoid touching your eyes, nose, and mouth [...] 24 maggy (more content not included)... Normal [facility] Patient Profile - Preop v3on 05-10-2022 Patient Profile - Preop v3 Patient Profile - Preop: Initial Info: Patient DemographicsName: SETH BELL Date: 1955 Address: [address] [place] [address] Date/Time [id number] 09:19 Primary Phone [phone] Call Attemptedleft message Instructions Givenanticoagulant meds - patient advised to consult ordering provider, appropriate clothing, bring list of medications, bring responsible adult as the driver wheelchair (procedure may be cancelled if no driver wheelchair), time to arrive, remove jewerly/piercings, insurance information, diabetes meds - patient advised to consult ordering provider, center location How to be AddressedBob Spoken Language PreferredEnglish Source of Informationpatient Stated Reason for Admissionleft ear Primary Contact Name and [phone] Limitations on Visitors/Phone Callsnone Medications Brought to Hospitalno General Health: Weight in kg86.4 kilogram(s) Weight in qka419.4 pound(s) Height in feet5 feet Height in [...] Withspouse Living Arrangementshouse Resource/Environmental Concernsnone Anticipated Transition [place] [facility] Anticipated at Transitionnone Tobacco Use: Tobacco Useno Pre-op Checklist: Arrival [id number] Arrival Time09:07 Procedure Typeleft ear surgery NPOyes Last Food [id number] 22:00 Last Clear Fluid [id number] 22:00 ID Band On Patientpatient ID (name) [...] 11-May-2022 09:24 by Makeda Augustine (RICARDO) Normal [facility] CORONAVIRUS 2019, SCREEN ASY MPTOMATICon 05-09-2022 Lab Specimen Source Nasal, Nasopharyngeal Normal [facility] Comment on above: Performed By: #### C OVSC #### [facility] [address] [place] [address] CBC AUTO DIFFon 05-03-2022 BASO # 0.0 103/ul Normal 0.0-0.1 [facility] Comment on above: Performed By: #### C BC #### [facility] [address] [address] [address] Natty Daily Basophils/100 WBC (Bld) 0.2 % Normal 0.2-2.0 [facility] Comment on above: Performed By: #### C BC #### [facility] [address] [address] [address] Natty Daily EO # 0.0 103/ul Normal 0.0-0.7 [facility] Comment on above: Performed By: #### C BC #### [facility] [address] [place] [address] Dr. Natty Daily Eosinophils/100 WBC (Bld) 0.0 % Critically low 0.9-7.0 [facility] Comment on above: Performed By: #### C BC #### [facility] [address] [address] [address] Natty Daily Erythrocyte distribution width (RBC) [Ratio] 12.9 % Normal 11.0-15.0 [facility] Comment on above: Performed By: #### C BC #### [facility] [address] [place] [address] Dr. Natty Daily Hematocrit (Bld) [Volume fraction] 38.6 % Critically low 42.0-54.0 [facility] Comment on above: Performed By: #### C BC #### [facility] [address] [address] [address] Natty Daily Hemoglobin (Bld) [Mass/Vol] 13.1 g/dL Critically low 14.0-18.0 [facility] Comment on above: Performed By: #### C BC #### [facility] [address] [place] [address] Dr. Natty Daily IG # 0.09 10e3/ul Critically high 0.00-0.03 [facility] Comment on above: Performed By: #### C BC #### [facility] [address] [place] [address] Dr. Natty Daily IG % 1.1 % Critically high 0.0-0.5 [facility] Comment on above: Performed By: #### C BC #### [facility] [address] [place] [address] Dr. Natty Daily LYMPH # 1.3 103/ul Normal 1.2-3.8 [facility] Comment on above: Performed By: #### C BC #### [facility] [address] [place] [address] Dr. Natty Daily Lymphocytes/100 WBC (Bld) 15.8 % Critically low 20.5-60.0 [facility] Comment on above: Performed By: #### C BC #### [facility] [address] [place] [address] Dr. Natty Daily MANUAL DIFF REQ NO Normal [facility] Comment on above: Performed By: #### C BC #### [facility] [address] [place] [address] Dr. Natty Daily MCH (RBC) [Entitic mass] 30.9 pg Normal 25.9-34.0 [facility] Comment on above: Performed By: #### C BC #### [facility] [address] [place] [address] Dr. Natty Daily MCHC (RBC) [Mass/Vol] 33.9 g/dL Normal 29.9-35.2 [facility] Comment on above: Performed By: #### C BC #### [facility] [address] [place] [address] Dr. Natty Daily MCV (RBC) [Entitic vol] 91.0 fL Normal 80.0-94.0 [facility] Comment on above: Performed By: #### C BC #### [facility] [address] [place] [address] Dr. Natty Daily MONO # 0.7 103/ul Normal 0.3-0.8 [facility] Comment on above: Performed By: #### C BC #### [facility] [address] [place] [address] Dr. Natty Daily Monocytes/100 WBC (Bld) 8.3 % Normal 1.7-12.0 [facility] Comment on above: Performed By: #### C BC #### [facility] [address] [place] [address] Dr. Natty Daily NEUT # 6.1 103/ul Normal 1.4-6.5 [facility] Comment on above: Performed By: #### C BC #### [facility] [address] [place] [address] Dr. Natty Daily Neutrophils/100 WBC (Bld) 74.6 % Normal 43.0-75.0 [facility] Comment on above: Performed By: #### C BC #### [facility] [address] [place] [address] Dr. Natty Daily Platelet mean volume (Bld) [Entitic vol] 9.5 fL Normal 9.5-13.5 [facility] Comment on above: Performed By: #### C BC #### [facility] [address] [place] [address] Dr. Natty Daily PLT 231 103/ul Normal 150-450 [facility] Comment on above: Performed By: #### C BC #### [facility] [address] [place] [address] Dr. Natty Daily RBC 4.24 106/ul Critically low 4.70-6.10 [facility] Comment on above: Performed By: #### C BC #### [facility] [address] [place] [address] Dr. Natty Daily WBC 8.1 103/ul Normal 4.0-11.0 [facility] Comment on above: Performed By: #### C BC #### [facility] [address] [place], [place] [id number] Dr. Natty Daily PROF 14(COMP METB)on 022 Albumin [Mass/Vol] 3.9 g/dL Normal 3.4-5.0 [facility] Comment on above: Performed By: #### C MP #### [facility] [address] [place] [address] Dr. Natty Daily Albumin/Globulin [Mass ratio] 1.2 {ratio} Normal [facility] Comment on above: Performed By: #### C MP #### [facility] [address] [place] [address] Dr. Natty Daily ALP [Catalytic activity/Vol] 58 U/L Normal 46-116 [facility] Comment on above: Performed By: #### C MP #### [facility] [address] [address] [address] Natty Daily ALT [Catalytic activity/Vol] 78 U/L Critically high 16-63 [facility] Comment on above: Performed By: #### C MP #### [facility] [address] [place] [address] Dr. Natty Daily Anion gap [Moles/Vol] 14.3 mmol/L Normal [facility] Comment on above: Performed By: #### C MP #### [facility] [address] [place] [address] Dr. Natty Daily AST [Catalytic activity/Vol] 39 U/L Critically high 15-37 [facility] Comment on above: Performed By: #### C MP #### [facility] [address] [place] [address] Dr. Natty Daily Bilirubin [Mass/Vol] 0.8 mg/dL Normal 0.2-1.0 [facility] Comment on above: Performed By: #### C MP #### [facility] [address] [place] [address] Dr. Natty Daily Calcium [Mass/Vol] 9.0 mg/dL Normal 8.5-10.1 [facility] Comment on above: Performed By: #### C MP #### [facility] [address] [place] [address] Dr. Natty Daily Chloride [Moles/Vol] 104 mmol/L Normal 98-107 [facility] Comment on above: Performed By: #### C MP #### [facility] [address] [place] [address] Dr. Natty Daily CO2 [Moles/Vol] 24.8 mmol/L Normal 21.0-32.0 [facility] Comment on above: Performed By: #### C MP #### [facility] [address] [address] [address] Natty Daily Creatinine [Mass/Vol] 0.77 mg/dL Normal 0.70-1.30 [facility] Comment on above: Performed By: #### C MP #### [facility] [address] [address] [address] Natty Daily EGFR-AF CHINESE >60 Normal >=60 [facility] Comment on above: Performed By: #### C MP #### [facility] [address] [address] [address] Natty Daily EGFR-NON AF CHINESE >60 Normal >=60 [facility] Comment on above: Performed By: #### C MP #### [facility] [address] [place] [address] Dr. Natty Daily Globulin (S) [Mass/Vol] 3.2 g/dL Normal [facility] Comment on above: Performed By: #### C MP #### [facility] [address] [address] [address] Natty Daily Glucose [Mass/Vol] 131 mg/dL Critically high 74-106 [facility] Comment on above: Performed By: #### C MP #### [facility] [address] [place] [address] Dr. Natty Daily Potassium [Moles/Vol] 4.1 mmol/L Normal 3.5-5.1 [facility] Comment on above: Performed By: #### C MP #### [facility] [address] [place] [address] Dr. Natty Daily Protein [Mass/Vol] 7.1 g/dL Normal 6.4-8.2 [facility] Comment on above: Performed By: #### C MP #### [facility] [address] [address] [address] Natty Daily Sodium [Moles/Vol] 139 mmol/L Normal 136-145 [facility] Comment on above: Performed By: #### C MP #### [facility] [address] [place] [address] Dr. Natty Daily Urea nitrogen [Mass/Vol] 22.0 mg/dL Critically high 7.0-18.0 [facility] Comment on above: Performed By: #### C MP #### [facility] [address] [place] [address] Dr. Natty Daily Urea nitrogen/Creatinine [Mass ratio] 28.6 mg/mg Normal [facility] Comment on above: Performed By: #### C MP #### [facility] [address] [place] [address] Dr. Natty Daily PROTIMEon 05-03-2022 INR Coag (PPP) [Relative time] 1.06 {INR} Normal [facility] Comment on above: Performed By: #### P T, PTT #### [facility] [address] [place] [address] Dr. Natty Daily INR GUIDELINES SEE BELOW Normal [facility] Comment on above: Result Comment: REEMA RED INR: 2.0 - 3.0 CONDITIONS NOT LISTED BELOW 2.5 - 3.5 FOR PROSTHETIC HEART VALVE REPLACEMENT 2.5 - 3.5 RECURRENT THROMBOSIS Performed By: #### P T, PTT #### [facility] [address] [place] [address] Dr. Natty Daily PT Coag (PPP) [Time] 11.4 s Normal 9.0-11.6 [facility] Comment on above: Performed By: #### P T, PTT #### [facility] [address] [place] [address] Dr. Natty Daily PTTon 05-03-2022 aPTT Coag (Bld) [Time] 25.6 s Normal 22.3-36.2 [facility] Comment on above: Performed By: #### P T, PTT #### [facility] [address] [place] [address] Dr. Natty Daily Tobacco Screening.on 022 Fall risk assessment a) No falls within the last year [facility] Work Phone: Tobacco use status [facility] b) No MG-Otolaryngol polina-Flor[facility] Work Phone: Blood Urea Nitrogenon 2020 Urea nitrogen [Mass/Vol] 21 mg/dL Normal 9- [facility] Comment on above: Performed By: #### C REAT, BUN #### [facility] [address] [place] [address] [place] Creatinineon 10-19-2021 Creatinine [Mass/Vol] 0.92 mg/dL Normal 0.64-1.27 [facility] Comment on above: Performed By: #### C REAT, BUN #### [place] [address] [place] Creatinine Clr Calc Pharmacy 86.54 [facility] Comment on above: Result Comment: PERF ORMED BY: [place] [address] PATHOLOGIST CONCRETE ANALYST JAVID GRACIA M.D. Performed By: #### C REAT, BUN #### [address] Estimated GFR ( Jaida > 60 [facility] Comment on above: Result Comment: GFR estimated reference range: According to KDOQI guidelines, <60 ml/min/1.73m2 is sufficient to diagnose a patient with chronic kidney disease. Performed By: #### C REAT, BUN #### [address] Estimated GFR (Non- Am > 60 Normal [facility] Comment on above: Performed By: #### C REAT, BUN #### [address] MR prostate wo/w conon 10-19 MR prostate wo/w con [facility] [place] [address] [place] [address] MRI Report Signed Patient: Seth Bell MR#: [id number] 343 : 1955 Acct:[id number] Age/Sex: 65 / M ADM Date: 10/19/21 Loc: MR Room: Type: [facility] Attending Dr: Ailyn Dunn MD Ordering Provider: [...] PM COT by: Asa Kline MD Diplomate, [place] [employer] Report Completed: Oct 19, [...] STAFF 10/19/21 1510 Signed By: 10/19/21 1522 [facility] Vital Signs Date Time Vital Sign Value Performing Clinician Facility 06-27-2024 13:12-0400 Blood Pressure Location Bonifacio NILL [facility] [place] 06-27-2024 13:12-0400 Diastolic blood pressure 74 mm[Hg] Bonifacio NILL [facility] 06-27-2024 13:12-0400 Heart rate 45 /min Bonifacio NILL [facility] 06-27-2024 13:12-0400 Respiratory rate 16 /min Bonifacio NILL [facility] 06-27-2024 13:12-0400 Systolic blood pressure 134 mm[Hg] Bonifacio NILL [facility] 04-23-2024 08:22-0400 Diastolic blood pressure 71 mm[Hg] Bonifacio NILL [facility] 04-23-2024 08:22-0400 Heart rate 50 /min Bonifacio NILL [facility] [place] 04-23-2024 08:22-0400 Respiratory rate 16 /min Bonifacio FONSECAL [facility] 04-23-2024 08:22-0400 Systolic blood pressure 130 mm[Hg] Bonifacio NILL [facility] 01-01-2024 12:00-0500 Blood Pressure Location Ailyn DUNN [facility] 01-01-2024 12:00-0500 Diastolic blood pressure 86 mm[Hg] Ailyn DUNN [facility] 01-01-2024 12:00-0500 Heart rate 70 /min Ailyn DUNN [facility] 01-01-2024 12:00-0500 Respiratory rate 16 /min Ailyn DUNN [facility] 01-01-2024 12:00-0500 Systolic blood pressure 122 mm[Hg] Ailyn DUNN [facility] 10-03-2023 10:00-0500 Body height 165.1 cm Stevan Galdamez Other [facility] [employer] Other 10-03-2023 10:00-0500 Body mass index (BMI) [Ratio] 32.71 kg/m2 Stevan Ball Other [employer] [facility] [employer] Other 10-03-2023 10:00-0500 Body weight 89.18 kg Stevan Ball Other [employer] [facility] [employer] Other 10-03-2023 10:00-0500 Diastolic blood pressure 81 mm[Hg] Stevan Galdamez Other [employer] Other 10-03-2023 10:00-0500 Respiratory rate 12 /min Stevan Ball Other [employer] Other 10-03-2023 10:00-0500 Systolic blood pressure 131 mm[Hg] Stevan Ball Other [employer] Other 06-08-2023 09:45-0400 Body height 165.1 cm Stevan Ball Other [employer] Other 06-08-2023 09:45-0400 Body mass index (BMI) [Ratio] 32.15 kg/m2 Stevan Ball Other [employer] Other 06-08-2023 09:45-0400 Body weight 87.64 kg Stevan Ball Other [employer] Other 06-08-2023 09:45-0400 Diastolic blood pressure 66 mm[Hg] Stevan Ball Other [employer] Other 06-08-2023 09:45-0400 Respiratory rate 12 /min Stevan Ball Other [employer] Other 06-08-2023 09:45-0400 Systolic blood pressure 99 mm[Hg] Stevan Ball Other [employer] Other 06-01-2023 11:38-0400 Body height 165.1 cm Mone PipetteNPayParrot Work Phone: [employer] 06-01-2023 11:38-0400 Body mass index (BMI) [Ratio] 32.78 kg/m2 Mone Dimple Dough FITNESS INSTRUCTOR-REPAIR SERVICER Work Phone: [employer] 06-01-2023 11:38-0400 Body temperature 97.39 [degF] Mone Watson APRN-REPAIR SERVICER Work Phone: [employer] 06-01-2023 11:38-0400 Body weight 89.36 kg Mone Watson APRN-REPAIR SERVICER Work Phone: [employer] 05-29-2023 14:15-0400 Body height 165.1 cm Stevan Ball Other [employer] Other 05-29-2023 14:15-0400 Body mass index (BMI) [Ratio] 32.58 kg/m2 Stevan Ball Other [employer] Other 05-29-2023 14:15-0400 Body weight 88.81 kg Stevan Ball Other [employer] Other 05-29-2023 14:15-0400 Diastolic blood pressure 79 mm[Hg] Stevan Ball Other [employer] Other 05-29-2023 14:15-0400 Respiratory rate 12 /min Stevan Ball Other [employer] Other 05-29-2023 14:15-0400 Systolic blood pressure 124 mm[Hg] Stevan Ball Other [employer] Other 05-09-2023 15:49-0400 Body temperature 98.6 [degF] Lazarus Coronado MD Work Phone: [employer] 05-09-2023 15:49-0400 Diastolic blood pressure 68 mm[Hg] Lazarus Coronado MD Work Phone: [employer] 05-09-2023 15:49-0400 Heart rate 71 /min Lazarus Coronado MD Work Phone: [employer] 05-09-2023 15:49-0400 Respiratory rate 16 /min Lazarus Coronado MD Work Phone: [employer] 05-09-2023 15:49-0400 SaO2% (BldA) [Mass fraction] 94 % Lazarus Coronado MD Work Phone: [facility] [employer] 05-09-2023 15:49-0400 Systolic blood pressure 138 mm[Hg] Lazarus Coronado MD Work Phone: [facility] [employer] [facility] 05-08-2023 07:10-0400 Body height 172.7 cm Lazarus Coronado MD Work Phone: [facility] [employer] [facility] 05-08-2023 07:10-0400 Body mass index (BMI) [Ratio] 29.63 kg/m2 Lazarus Coronado MD Work Phone: [employer] 05-08-2023 07:10-0400 Body weight 88.41 kg Lazarus Coronado MD Work Phone: [employer] 04-14-2023 10:00-0400 Body height 165.1 cm Stevan Ball Other [employer] Other 04-14-2023 10:00-0400 Body mass index (BMI) [Ratio] 33.24 kg/m2 Stevan Ball Other [employer] Other 04-14-2023 10:00-0400 Body weight 90.63 kg Stevan Ball Other [employer] Other 04-14-2023 10:00-0400 Diastolic blood pressure 93 mm[Hg] Stevan Ball Other [employer] Other 04-14-2023 10:00-0400 Respiratory rate 12 /min Stevan Ball Other [employer] Other 04-14-2023 10:00-0400 Systolic blood pressure 145 mm[Hg] Stevan Ball Other [employer] Other 03-23-2023 10:11-0400 Body height 170.2 cm Lazarus Coronado MD Work Phone: [facility] 03-23-2023 10:11-0400 Body mass index (BMI) [Ratio] 30.98 kg/m2 Lazarus Coronado MD Work Phone: [facility] 03-23-2023 10:11-0400 Body temperature 97.39 [degF] Lazarus Coronado MD Work Phone: [facility] 03-23-2023 10:11-0400 Body weight 89.72 kg Lazarus Coronado MD Work Phone: [facility] 12-05-2022 09:23-0500 Blood Pressure Location Ailyn DUNN [facility] 12-05-2022 09:23-0500 Diastolic blood pressure 88 mm[Hg] Ailyn DUNN [facility] 12-05-2022 09:23-0500 Heart rate 76 /min Ailyn DUNN [facility] 12-05-2022 09:23-0500 Respiratory rate 16 /min Ailyn DUNN [facility] 12-05-2022 09:23-0500 Systolic blood pressure 130 mm[Hg] Ailyn DUNN [facility] 10-11-2022 11:21-0500 Body temperature 98.4 [degF] Lazarus Coronado MD Work Phone: [facility] 10-11-2022 11:21-0500 Diastolic blood pressure 63 mm[Hg] Lazarus Coronado MD Work Phone: [facility] 10-11-2022 11:21-0500 Heart rate 61 /min Lazarus Coronado MD Work Phone: [facility] 10-11-2022 11:21-0500 Respiratory rate 16 /min Lazarus Coronado MD Work Phone: [facility] [employer] [facility] 10-11-2022 11:21-0500 SaO2% (BldA) [Mass fraction] 96 % Lazarus Coronado MD Work Phone: [facility] 10-11-2022 11:21-0500 Systolic blood pressure 106 mm[Hg] Lazarus Coronado MD Work Phone: [facility] 10-10-2022 13:00-0500 Body height 165.1 cm Lazarus Coronado MD Work Phone: [facility] 10-10-2022 13:00-0500 Body mass index (BMI) [Ratio] 30.79 kg/m2 Lazarus Coronado MD Work Phone: [facility] 10-10-2022 13:00-0500 Body weight 83.92 kg Lazarus Coronado MD Work Phone: [facility] [employer] [facility] 08-03-2022 14:13-0400 Body height 165.1 cm Lazarus Coronado MD Work Phone: [facility] 08-03-2022 14:13-0400 Body mass index (BMI) [Ratio] 30.65 kg/m2 Lazarus Coronado MD Work Phone: [facility] 08-03-2022 14:13-0400 Body temperature 97 [degF] Lazarus Coronado MD Work Phone: [facility] [employer] [facility] 08-03-2022 14:13-0400 Body weight 83.55 kg Lazarus Coronado MD Work Phone: [facility] [employer] [facility] 03-17-2022 15:18-0400 Body height 170.18 cm Stevan Galdamez Work Phone: [facility] [place] Work Phone: 03-17-2022 15:18-0400 Body mass index (BMI) [Ratio] 32.26 kg/m2 Stevan Galdamez Work Phone: JZ-Vzfdaqwqtbtwxz-Jx [place] Work Phone: 03-17-2022 15:18-0400 Body surface area Derived from formula 2.05 m2 Stevan Galdamez Work Phone: NS-Ucxoppijrsivtb-Hi [place] Work Phone: 03-17-2022 15:18-0400 Body temperature 98.4 [degF] Stevan Galdamez Work Phone: GF-Djvfzwwlrprktp-Dd [place] Work Phone: 03-17-2022 15:18-0400 Body weight 93.44 kg Stevan Galdamez Work Phone: UR-Cohuxntgdvrkpo-Dj [place] Work Phone: 03-17-2022 15:18-0400 0 1 Stevan Galdamez Work Phone: UR-Hhfbaslxaicgcg-Kd [place] Work Phone: Comment on above: [employer] Encounters Encounter Date Encounter Type Care Provider Facility Start: 12-20-2024 ambulatory Ailyn Wetzeli ty:[facility] Start: 06-27-2024 ambulatory STEVAN GALDAMEZ Facility: [facility] Start: 06-27-2024 End: 06-27-2024 Patient encounter procedure Bonifacio GRAVES [facility] [place] Start: 05-29-2024 End: 05-29-2024 ambulatory Bonifacio GRAVES Facility:[id number] Start: 04-23-2024 End: 04-23-2024 ambulatory Bonifacio FONSECAL Facility:[facility] Start: 04-23-2024 End: 04-23-2024 Patient encounter procedure Bonifacio FONSECAL [facility] [place] Start: 04-09-2024 ambulatory Ailyn DUNN Facility :[facility] Start: 03-20-2024 End: 03-20-2024 ambulatory JOAQUIM [facility] Start: 01-01-2024 End: 01-01-2024 ambulatory Ailyn DUNN Facility:[facility] Start: 01-01-2024 End: 01-01-2024 Patient encounter procedure Ailyn Dee SHAUN [facility] Start: 11-27-2023 End: 11-27-2023 ambulatory Stevan Ball Other [employer] Other Start: 11-27-2023 Office outpatient vi sit 15 minutes Stevan Ball [facility] Start: 11-27-2023 Telephone encounter Stevan Ball [facility] Start: 10-03-2023 End: 10-03-2023 ambulatory Stevan Ball Other [employer] Other Start: 10-03-2023 Office outpatient vi sit 25 minutes Stevan Ball [facility] Start: 09-21-2023 End: 09-21-2023 ambulatory Stevan Ball Other [employer] Other Start: 09-21-2023 Telephone encounter Stevan Ball [facility] Start: 09-04-2023 End: 09-04-2023 ambulatory Stevan Ball Other [employer] Other Start: 09-04-2023 Telephone encounter Stevan Ball [facility] Start: 09-01-2023 End: 09-01-2023 ambulatory Stevan Ball Other [employer] Other Start: 09-01-2023 Telephone encounter Stevan Ball [facility] Start: 08-28-2023 End: 08-28-2023 ambulatory Stevan Ball Other [employer] Other Start: 08-28-2023 Telephone encounter Stevan Ball [facility] Start: 08-17-2023 End: 08-17-2023 ambulatory Stevan Ball Other [employer] Other Start: 08-17-2023 Telephone encounter Stevan Ball [facility] Start: 08-10-2023 End: 08-10-2023 ambulatory Stevan Ball Other Attune Other Start: 08-10-2023 Telephone encounter Stevan Ball [facility] Start: 08-08-2023 End: 08-08-2023 ambulatory Stevan Ball Other Att[employer] Other Start: 08-08-2023 Telephone encounter Stevan Ball [facility] Start: 07-12-2023 End: 07-12-2023 ambulatory Stevan Ball Other [employer] Other Start: 07-12-2023 Telephone encounter Stevan Ball [facility] Start: 07-07-2023 End: 07-07-2023 ambulatory Stevan Ball Other [facility] Other Start: 07-07-2023 Telephone encounter Stevan Ball [facility] Start: 06-13-2023 End: 06-13-2023 ambulatory Stevan Ball Other [facility] Other Start: 06-13-2023 Telephone encounter Stevan Ball [facility] Start: 06-08-2023 End: 06-08-2023 ambulatory Stevan Ball Other [facility] Other Start: 06-08-2023 Office outpatient vi sit 25 minutes Stevan Ball [facility] Start: 06-05-2023 End: 06-05-2023 ambulatory Stevan Ball Other [employer] Other Start: 06-05-2023 Telephone encounter Stevan Ball [facility] Start: 06-03-2023 End: 06-04-2023 ambulatory MD ALAN HENLEY Facility:[facility] Start: 06-02-2023 End: 06-02-2023 ambulatory Stevan Ball Other [facility] Other Start: 06-02-2023 Telephone encounter Stevan [facility] Start: 06-01-2023 Telephone encounter Stevan [facility] Start: 06-01-2023 End: 06-01-2023 ambulatory STEVAN GALDAMEZ [facility] Other Start: 06-01-2023 End: 06-01-2023 Postop follow up visit related to original px Mone Watson FITNESS INSTRUCTOR-REPAIR SERVICER Work Phone: [facility] Comment on above: Hx of total knee art hroplasty, right (Primary Dx) Start: 05-29-2023 End: 05-29-2023 ambulatory Stevan Galdamez Other [employer] Other Start: 05-29-2023 Office outpatient vi sit 15 minutes Stevan Galdamez [facility] Start: 05-09-2023 End: 05-09-2023 ambulatory Stevan Galdamez Other [employer] Other Start: 05-09-2023 Telephone encounter Stevan [facility] Start: 05-08-2023 End: 05-09-2023 ambulatory [facility] Start: 05-08-2023 End: 05-09-2023 Subsequent hospital visit by physician Lazarus Coronado MD Work Phone: [facility] Comment on above: Osteoarthritis of ri ght knee Start: 04-14-2023 End: 04-14-2023 ambulatory Stevan Galdamez Other [employer] Other Start: 04-14-2023 Encounter for other preprocedural examination Stevan Galdamez [facility] Start: 04-14-2023 Office outpatient vi sit 25 minutes Stevan Ball [facility] Start: 04-13-2023 ambulatory [facility] Start: 04-13-2023 Encounter for other preprocedural examination [facility] Start: 04-11-2023 End: 04-11-2023 ambulatory Stevan Galdamez Other Att[employer] Other Start: 04-11-2023 Telephone encounter Stevan Galdamez [facility] Start: 03-24-2023 End: 03-25-[address] STEVAN GALDAMEZ Facility:[facility] Start: 03-23-2023 ambulatory [facility] Start: 03-23-2023 ambulatory [facility] Start: 03-23-2023 End: 03-23-2023 Subsequent hospital visit by physician Mone Watson FITNESS INSTRUCTOR-REPAIR SERVICER Work Phone: [facility] Start: 03-23-2023 End: 03-23-2023 Office outpatient visit 40 minutes Lazarus Coronado MD Work Phone: [facility] Comment on above: Hx of total hip arth roplasty, left (Primary Dx); Right knee pain, unspecified chronicity Start: 03-23-2023 End: 03-23-2023 Subsequent hospital visit by physician Lazarus Coronado MD Work Phone: [facility] Start: 02-23-[address] STEVAN GALDAMEZ Facili ty:[facility]1 Start: 12-05-2022 End: 12-05-2022 Patient encounter procedure Ailyn DUNN [facility] Start: 12-03-2022 End: 12-04-2022 ambulatory AILYN DUNN Facility:[facility] Start: 11-03-2022 ambulatory STEVAN GALDAMEZ [facility] [place] [facility] Start: 11-03-2022 End: 11-03-2022 Subsequent hospital visit by physician Mone Watson FITNESS INSTRUCTOR-REPAIR SERVICER Work Phone: [facility] Start: 10-27-2022 End: 10-28-[address] ANETA DUNN . Facility:[facility] Start: 10-10-2022 End: 10-11-2022 ambulatory [facility] Start: 10-10-2022 End: 10-11-2022 Encounter for preprocedural laboratory examination [facility] Start: 10-10-2022 End: 10-11-2022 Patient encounter status Lazarus Coronado MD Work Phone: [facility] Start: 10-10-2022 End: 10-11-2022 Subsequent hospital visit by physician Lazarus Coronado MD Work Phone: [facility] Comment on above: Primary osteoarthrit is of left hip Start: 09-27-2022 Pre-procedure evalua tion luiz Galdamez Other [employer] Other Start: 09-15-2022 ambulatory [facility] Start: 08-03-2022 ambulatory [facility] Start: 08-03-2022 ambulatory [facility] Start: 08-03-2022 End: 08-03-2022 Office outpatient new 60 minutes Lazarus Coronado MD Work Phone: [facility] Comment on above: Left hip pain (Prima ry Dx) Start: 08-03-2022 End: 08-03-2022 Subsequent hospital visit by physician Lazarus Coronado MD Work Phone: [facility] Start: 07-23-2022 Adult health examination Milan Galdamez Other [employer] Other Start: 07-21-2022 End: 07-22-[address] STEVAN GALDAMEZ Facility:[facility] Start: 06-15-2022 End: 06-16-[address] STEVAN GALDAMEZ Facility:[facility] Start: 05-05-2022 Encounter for preprocedural cardiovascular examination DR DOCTOR GILL [facility] Start: 05-05-2022 Encounter for preprocedural laboratory examination DR [facility] Start: 05-04-2022 End: 05-21-[address] STEVAN GALDAMEZ Facility:[facility] Start: 05-03-2022 End: 05-04-[address] DOCTOR GILL Facility:[facility] Start: 05-03-2022 End: 05-04-2022 Encounter for preprocedural cardiovascular examination DR DOCTOR GILL Facility:[facility] Start: 03-17-2022 Office outpatient ne w 45 minutes Stevan Galdamez Work Phone: [facility] Work Phone: Evaluation finding [facility] Work Phone: [facility] Work Phone: Procedures Date Procedure Procedure Detail Performing Clinician Start: 05-29-2024 Colonoscopy Bonifacio GRAVES Start: 05-09-2023 Basic metabolic panel calcium total Shahzad Whiting MD Work Phone: Start: 05-09-2023 Complete blood count with white cell differential, automated Mone Watson FITNESS INSTRUCTOR-REPAIR SERVICER Work Phone: Start: 05-08-2023 Radiologic examination knee 1/2 views Mone Watson FITNESS INSTRUCTOR-REPAIR SERVICER Work Phone: Start: 05-08-2023 End: 05-08-2023 Arthrp kne condyle&platu medial&lat compartments Lazarus Coronado MD Work Phone: Start: 05-08-2023 Cultyp nuc acid amp prb cult/isolate ea orgnism Shahzad Whiting MD Work Phone: Start: 04-20-2023 Arthroplasty of knee Ailyn DUNN Start: 12-03-[address] STEVAN GALDAMEZ Comment on above: Performed By: #### PSAD #### [facility] [address] [place] [address] Dr. Natty Daily Start: 10-11-2022 Basic metabolic panel calcium total Shahzad Whiting MD Work Phone: Start: 10-11-2022 Complete blood count with white cell differential, automated Mone Watson FITNESS INSTRUCTOR-REPAIR SERVICER Work Phone: Start: 10-10-2022 Radiologic examination pelvis 1/2 views Mone Watson FITNESS INSTRUCTOR-REPAIR SERVICER Work Phone: Start: 10-10-2022 End: 10-10-2022 Arthrp acetblr/prox fem prostc agrft/algrft Lazarus Coronado MD Work Phone: Start: 10-10-2022 Drug test prsmv read direct optical obs pr date Fabian Masters DO Work Phone: Start: 10-10-2022 Blood group typing, RH phenotyping Lazarus Coronado MD Work Phone: Start: 10-10-2022 Sars-cov-2 detection by dna/rna Mone montoya FITNESS INSTRUCTOR-REPAIR SERVICER Work Phone: Start: 11-20-2021 Repair of hip [...] 06-15-2022 Depression screening Stevan Galdamez Other Esophagogastroduodenoscopy M ichael ELY Excision of lumbar i ntervertebral disc Ailyn [...] Treatment Date Care Activity Detail Author Start: 05-08-2024 End: 05-08-2024 Patient encounter procedure 05/08/2024 9:00 AM EDT Office Visit [facility] [address] [place] [id number] Mone Watson APRN-CABRERA [address] [place] [phone] [facility] Start: 07-21-2023 Influenza vaccination A [facility] Start: 06-01-2023 End: 06-01-2023 Patient encounter procedure 06/01/2023 11:40 AM EDT Office Visit [facility] [address] [place] [phone] Mone Watson APRN-CABRERA [address] [place] [phone] [facility] Start: 04-13-2023 End: 04-13-2023 ambulatory 04/13/2023 Pre-Operative Nurse Assessment Internal Medicine [facility] Pre [facility] Start: 03-08-2023 End: 03-08-2023 Patient encounter procedure 03/08/2023 Office Visit Orthopaedics Lazarus Coronado MD [address] [place] [phone] [facility] Start: 11-03-2022 End: 11-03-2022 Patient encounter procedure 11/03/2022 Office Visit Orthopaedics Mone Watson APRN-REPAIR SERVICER [address] [place] [phone] [facility] Start: 09-15-2022 End: 09-15-2022 ambulatory 09/15/2022 Pre-Operative Nurse Assessment Internal Medicine [facility] Start: 08-03-2022 End: 08-03-2023 XR Pelvis 2 Views [facility] Work Phone: Comment on above: 1 Occurrences starti ng 08/03/2022 until 08/03/2022 Expected: 08/03/2022 , Expires: 08/03/2023 Start: 07-21-2022 Influenza vaccination INFLUENZA VACC INE (#1) [facility] Start: 06-03-2022 POV, Provider: Jamie Rojas, Status: Pen, Time: 9:45 AM POV, Provider: Jamie Rojas, Status: Pen, Time: 9:45 AM IB-Qixqtbbdsjdmtz-Iyf angela Work Phone: Start: 05-12-2021 COVID-19 VACCINE (3 - Booster for Pfizer series) COVID-19 VACCINE (3 - Booster for Pfizer series) [facility] Start: 05-12-2021 COVID-19 VACCINE (3 - Pfizer series) COVID-19 VACCINE (3 - Pfizer series) [facility] Start: 07-09-2020 Pneumococcal vaccination PNEUMOCOCCAL VACCINE SERIES (2 - PPSV23 if available, else PCV20) [facility] Start: 2018 Abdominal aortic aneurysm screening ABDOMINAL AORTIC ANEURYSM HIGH RISK SCREEN [facility] Start: 2018 Pneumococcal vaccination PNEUMOCOCCAL VACCINE SERIES (1 - PCV) [facility] Start: 2003 Prostate specific antigen measurement PROSTATE CANCER SCREENING DISCUSSION [facility] Start: 2003 Zoster vaccine hzv live for subcutaneous use ZOSTER (SHINGLES) VACCINE (1 of 2) [facility] Start: 1998 Colonoscopy COLORECTAL CAN CER SCREENING DISCUSSION [facility] Start: 1998 Screening for malignant neoplasm of colon COLORECTAL CANCER SCREENING DISCUSSION [facility] Start: 1993 Fasting lipid profile LIPID SCREENIN G [facility] Start: 1993 Lipid panel LIPID SCREENING [facility] Start: 1972 Third diphtheria, tetanus and acellular pertussis (DTaP) vaccination TDAP (ADULT) [facility] Start: 1971 Tetanus vaccination TETANUS [facility] Start: 04-20-1954 COVID-19 VACCINE (#1) COVID-19 VACCI NE (#1) [facility] Start: 1953 Hepatitis C antibody , confirmatory test HEPATITIS C VIRUS SCREENING [facility] Start: 1953 Hepatitis C screening HEPATITI S C VIRUS SCREENING [facility] Start: 1953 Tetanus vaccination TETANUS [facility] Radiography for bone length studies XR BONE LENGTH STUDY Imaging Routine Right knee pain, unspecified chronicity 03/23/2023 11:04 AM EDT [employer] [facility] Work Phone: End: 10-10-2022 RF Unspecified body region Views during surgery [facility] [employer] Comment on above: One Time for 1 Occur rences starting 10/10/2022 until 10/10/2022 SURGICAL PATHOLOGY REQUEST SURGICAL PATHOLOGY REQUEST Surg Path Routine Primary osteoarthritis of left hip Release Upon Ordering for 1 Occurrences starting 10/10/2022 [facility] Comment on above: Release Upon Orderin g for 1 Occurrences starting 10/10/2022 SURGICAL PATHOLOGY REQUEST SURGICAL PATHOLOGY REQUEST Surg Path Routine Primary osteoarthritis of right knee Release Upon Ordering for 1 Occurrences starting 05/08/2023 [facility] [employer] [facility] Comment on above: Release Upon Orderin g for 1 Occurrences starting 05/08/2023 XR Knee - right 3 Views XR KNEE RIGHT 3 VIEWS Imaging Routine Hx of total knee arthroplasty, right 06/01/2023 11:26 AM EDT [employer] XR Knee - right 4 Views [facility] [employer] Work Phone: Comment on above: Ordered: 03/23/2023 XR Pelvis and Hip - left Views XR HIP WITH PELVIS LEFT Imaging Routine Left hip pain 08/03/2022 2:08 PM EDT [employer] Work Phone: XR Pelvis and Hip - left Views XR HIP WITH PELVIS LEFT Imaging Routine Hx of total hip arthroplasty, left 11/03/2022 10:44 AM EST [facility] XR Pelvis and Hip - left Views XR HIP WITH PELVIS LEFT Imaging Routine Hx of total hip arthroplasty, left Ordered: 03/07/2023 [facility] [employer] Comment on above: Ordered: 03/07/2023 Immunizations Immunization Date Immunization Notes Care Provider Tiffanie daugherty 10-03-2023 influenza, high dose seasonal, preservative-free Stevan Galdamez Other [employer] Other 09-27-2022 influenza, high dose seasonal, preservative-free Stevan Galdamez Other [employer] Other 09-27-2022 influenza virus vaccine, split virus (incl. purified surface antigen) Stevan Galdamez Other [employer] Other 08-20-2021 influenza virus vaccine, split virus (incl. purified surface antigen) Stevan Galdamez Other [employer] Other 03-17-2021 SARS-CoV-2 (COVID-19 ) mRNA BNT-162b2 TX. com. cnx Ailyn [employer] [facility] 02-24-2021 SARS-CoV-2 (COVID-19 ) mRNA BNT-162b2 RetAPPs [facility] 11-20-2020 SARS-CoV-2 (COVID-19 ) mRNA BNT-162b2 TX. com. cnx Ailyn RunTitle [facility] Comment on above: Result Comment: pt i s fully vaccinated but does not have his card with him 08-19-2020 influenza virus vaccine, split virus (incl. purified surface antigen) Stevan Galdamez Other [employer] Other 10-29-2019 tetanus and diphther ia toxoids, adsorbed, preservative free, for adult use (5 Lf of tetanus toxoid and 2 Lf of diphtheria toxoid) Stevan Galdamez Other [employer] Other 07-09-2019 pneumococcal conjuga te vaccine, 13 valent Stevan Galdamez Other [employer] Other 07-09-2019 pneumococcal Conjuga te, unspecified formulation; 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: [Need for prophylactic vaccination against Streptococcus pneumoniae (pneumococcus)] Stevan Galdamez Other [employer] Other Payers Date Payer Category Payer Private Health Insurance 2022 Medicare [id number] 2021 Private Health Insurance [facility] 2021 Unknown 1959 Medicare [id number] 1959 Private Health Insurance [facility] 1955 Unknown [id number] 2.16.84 0.1.750562.3.579.2.593 1955 Unknown [id number] 2.16.84 0.1.620665.3.579.2.593 1953 Unknown [id number] 2.16.84 0.1.298277.3.579.2.593 1953 Unknown [id number] 2.16.84 0.1.256710.3.579.2.593 1953 Unknown [id number] 2.16.84 0.1.773737.3.579.2.593 1953 Unknown [id number] 2.16.84 0.1.433338.3.579.2.593 1953 Unknown [id number] 2.16.84 0.1.079139.3.579.2.593 1953 Unknown [id number] 2.16.84 0.1.274031.3.579.2.593 1953 Unknown [id number] 2.16.8 40.1.530530.3.579.2.159 1953 Unknown [id number] 2.16.8 40.1.743792.3.579.2.983 1953 Unknown [id number] 2.16.8 40.1.097522.3.579.2.983 1953 Unknown [id number] 2.16.8 40.1.349459.3.579.2.983 1953 Unknown [id number] 2.16.8 40.1.938816.3.579.2.983 1953 Unknown [id number] 2.16.8 40.1.472946.3.579.2.983 1953 Unknown [id number] 2.16.8 40.1.230153.3.579.2.983 1953 Unknown [id number] 2.16.8 40.1.907131.3.579.2.983 1953 Unknown [id number] 2.16.8 40.1.621141.3.579.2.983 1953 Unknown [id number] 2.16.8 40.1.398203.3.579.2.983 1953 Unknown [id number] 2.16.8 40.1.314642.3.579.2.983 1953 Unknown [id number] 2.16.8 40.1.166875.3.579.2.983 1953 Unknown [id number] 2.16.8 40.1.296287.3.579.2.983 1953 Unknown [id number] 2.16.8 40.1.355019.3.579.2.983 1953 Unknown [id number] 2.16.8 40.1.698014.3.579.2.983 1953 Unknown [id number] 2.16.8 40.1.576264.3.579.2.727 1953 Unknown [id number] 2.16.8 40.1.725152.3.579.2.727 1953 Unknown [id number] 2.16.8 40.1.702240.3.579.2.727 1953 Unknown [id number] 2.16.8 40.1.241671.3.579.2.727 1953 Unknown [id number] 2.16.8 40.1.327830.3.579.2.727 Social History Date Type Detail Facility Start: 05-09-2023 End: 06-01-2023 Former smoker Former smoker [facility] Work Phone: Start: 08-03-2022 End: 06-27-2024 Tobacco smoking status NHIS Ex-smoker [facility] End: 11-20-1988 History of tobacco use Cigarette Smoker [facility] Start: 08-03-2022 End: 06-01-2023 Alcohol intake Current drinker of alcohol (finding) [facility] Start: 08-03-2022 History SDOH Alcohol Comment daily [facility] Start: 1955 Sex Assigned At Not on file A [facility] End: 11-20-1988 History of tobacco use Current smoker [facility] Start: 09-13-2022 End: 04-04-2023 Tobacco use and exposure Smokeless tobacco non-user [facility] Start: 09-30-2022 End: 05-08-2023 Exposure to SARS-CoV-2 (event) Not sure [facility] Tobacco smoking status Never [facility] Start: 05-09-2023 End: 06-01-2023 Sex Assigned At Male [facility] Start: 04-04-2023 Alcohol Comment hard cider daily [facility] Medical Equipment Procedure Code Equipment Code Equipment Origin al Text Equipment Identifier Dates Bi Mentum Liner [id number] Start: 10-10-2022 22 gauge needle, See Instructions, 12 EA, 1, Use 2 needles per month, one to draw up and one for injection, [id number], Supply, 179, cm, 06/05/20 11:23:00 EDT, Height/Length Measured, 88, kg, 06/05/20 11:23:00 EDT, Weight Measured Start: 06-19-2020 Insert - Knee - [id number] Start: 05-08-2023 22 gauge needle, See [...] 06-19-2020 Functional Status Date Assessment Result Facility 06-27-2024 Functional Status N/A [facility] [place] 04-23-2024 Functional Status N/A [facility] [place] 01-01-2024 Functional Status N/A [facility] 12-05-2022 Functional Status N/A [facility] Clinical Notes 03-17-2022 to 04-23-2024 Note [...] mg Cap, 0.4 (more content not included)... [facility] Comment on above: Result Comment: Elec tronically Signed By: ELY SHEETS, Bonifacio Duarte\Date and Time Signed: 04/23/24 09:05 EDT 03-20-2024 Note Patient here for 1 y ear follow up CAD, hypertension, and hyperlipidemia. Denies chest pain, SOB, palpitations, and lightheadedness/syncope. He was admitted in May 2023 for upper GI bleed. Doing very well since then. [facility] 03-20-2024 Note [place] Cardiology Note HPI Chief Complaint: Seth Bell [...] discussed target range. Coronary artery disease involving red devil coronary artery of red devil heart without angina pectoris Patient adamantly denies [...] -Follow-up in cardiology clinic Joaquim Chaudhary MD [place] Interventional Cardiology [facility] 01-01-2024 Hospital Discharge instructions Patient Education 01/01/2024 [...] treatment? Where to find more information [employer]: www.cancer.org [employer]: www.auanet.org Contact a health care [...] provider. Document Revised: 05/02/2022 Document Reviewed: 05/02/2022 [email or web address] Patient Education 2022 HomeStay. Follow Up Care 12/05/2022 10:43:19 With:SHAUN SHEETS, Ailyn Dee, URL Address: [facility] [address] , [place] [phone] When:Within 1 Year(s) Comments:w/ PSA [facility] 11-27-2023 Evaluation note Encounter Date Diagnosis Assessment [...] I25.10) Increases risk for more severe infection [facility] Other 01-08-2024 Evaluation note* Encounter Date Diagnosis Assessment Notes Treatment Notes Treatment Clinical Notes Nov, COVID-19 (ICD-10 - U07.1) [facility] Other 11-14-2023 Evaluation note* Encounter Date Diagnosis [...] normal. Active lifestyle, looking forward to hunting. [facility] Other 11-02-2023 Evaluation note* Encounter Date Diagnosis Assessment Notes Treatment Notes Treatment Clinical Notes Sep, Acute blood loss anemia (ICD-10 - D62) [facility] Other 09-28-2023 Evaluation note* Encounter Date Diagnosis Assessment Notes Treatment Notes Treatment Clinical Notes Jul, ASHD (arteriosclerot ic heart disease) (ICD-10 - I25.10) Jul, Pure hypercholestero lemia (ICD-10 - E78.00) [facility] Other 09-21-2023 Evaluation note* Encounter Date Diagnosis Assessment Notes Treatment Notes Treatment Clinical Notes Jul, Primary hypertension (ICD-10 - I10) [facility] Other 07-20-2023 Evaluation note* Encounter Date Diagnosis [...] bleed, resume after holding for 2 wks [facility] Other 07-17-2023 Evaluation note* Encounter Date Diagnosis Assessment Notes Treatment Notes Treatment Clinical Notes May, Acute blood loss anemia (ICD-10 - D62) [facility] Other 07-14-2023 Evaluation note* Encounter Date Diagnosis Assessment Notes Treatment Notes Treatment Clinical Notes May, Nausea (ICD-10 - R11.0) [facility] Other 07-13-2023 Evaluation note* Encounter Date Diagnosis Assessment Notes Treatment Notes Treatment Clinical Notes May, Bilateral carotid bruits (ICD-10 - R09.89) [facility] Other 07-13-2023 History of Present illness Narrative* Kayley Lisa LPN - 06/01/2023 11:40 AM EDT Ortho Nurse - Established Patient Intake Room#: 5 Date: 06/01/2023 11:43 AM Patient: Seth Bell MR#: [id number] : 1955 Age: 67 y.o. 3 wks [...] Laterality: Right; Surgeon: Lazarus Coronado MD; Location: [facility] OR ARTHROPLASTY HIP TOTAL ANTERIOR APPROACH Left 10/10/2022 Laterality: Left; Surgeon: Lazarus Coronado MD; Location: [facility] OR BACK SURGERY 2016 x2 NECK SURGERY [...] by Nasal route once for 1 dose. [place] into the nose as directed. Call 911. [...] by Nasal route once for 1 dose. [place] into the nose as directed. Call 911. [...] has No Known Allergies. * Mone Watson APRN-REPAIR SERVICER - 06/01/2023 11:40 AM EDT HPI: Seth [...] understanding. All pertinent portions of the clinical field support rep documentation was reviewed and agree. PRINCE Yo Ortho Nurse - Established Patient Intake Room#: 5 Date: 06/01/2023 11:43 AM Patient: Seth Bell MR#: [id number] : 1955 Age: 67 y.o. 3 wks [...] Laterality: Right; Surgeon: Lazarus Coronado MD; Location: [facility] OR ARTHROPLASTY HIP TOTAL ANTERIOR APPROACH Left 10/10/2022 Laterality: Left; Surgeon: Lazarus Coronado MD; Location: [facility] OR BACK SURGERY 2016 x2 NECK SURGERY [...] by Nasal route once for 1 dose. [place] into the nose as directed. Call 911. [...] by Nasal route once for 1 dose. [place] into the nose as directed. Call 911. [...] has No Known Allergies. documented in this [facility]06-20-2023 Miscellaneous Notes* Nursing Notes - Keira Qiu [...] by Keira GUTIERREZ, unable to scan in [facility] due to connectivity issues. * Op Note - Lazarus Coronado MD - 05/09/2023 8:25 AM EDT DATE OF PROCEDURE: May 08, 2023 ATTENDING PHYSICIAN: Lazarus Coronado M.D. BASIC COMBATANT SWIMMER: Mone Watson CNP PREOPERATIVE DIAGNOSIS: Severe right [...] I referenced this against the flexion gap, Enio's line, and the epicondylar axis as well. I then used an anterior referencing stylus and sized it to a size 7. At this point then, the 4:1 cutting block was pinned into place, and all four cuts were performed. The f lexion space was opened up with the lamina advisor to command in combat, and the medial and lateral menisci were [...] of motion and anatomic tracking at the red devil patella. Thus, the patella itself was flipped [...] procedure) without the assistance of a skilled surgical appliances salesperson. A surgical appliances salesperson was medically necessary for positioning, retraction and [...] AM EDT Patient arrives back to room 375 at this time. Report received. Dressing to [...] 10:19 AM EDT POST OPERATIVE/PROCEDURE NOTE Seth Bell 67 y.o. male [id number] SURGEON Surgeon(s) and Role: * Lazarus Coronado MD - Primary BASIC COMBATANT SWIMMER PRINCE Yo ANESTHESIOLOGIST COOK CHILI: MERRY Steele; MERRY Hutchinson SURGICAL STAFF Museum Archivist: Shelley Brown RN; Debi Wiggins RN Nurse Practitioner: PRINCE Yo Scrub Person: Sarita Lizama RN Agency Sales Director: Mahesh Armstrong LPN PROCEDURE PERFORMED Procedure(s) (LRB): [...] Implant Name Type Inv. Item Serial No. Slide Maker Lot No. LRB No. Used Action PALACOS R 1 X 40 US - [id number] PALACOS R 1 X 40 US [id number] Right 2 Implanted PATELLA - KNEE - [id number] PATELLA - KNEE [id number] Right 1 Implanted FEMUR - KNEE - [id number] FEMUR - KNEE [id number] Right 1 Implanted Attune Knee System Tibial Base Fixed Bearing DEPUY [id number] Right 1 Implanted INSERT - KNEE - [id number] INSERT - KNEE [id number] Right 1 Implanted SPECIMENS ID Type Source Tests Collected by Time Destination 1 : Bone RIght Knee Permanent TISSUE SURGICAL PATHOLOGY REQUEST Lazarus Coronado MD 05/08/2023 0914 Mone Watson, FITNESS INSTRUCTOR-REPAIR SERVICER May 08, 2023 10:20 AM documented in this encounterOhio [facility]06-[facility]23 Nurse Note* Nursing Notes - Keira Qiu RN - 05/09/2023 3:41 PM EDT Discharge instructions and education reviewed with pt and his daughter, education provided for dx and new medications, printed education given, denies any questions. Hemovac care reviewed. HOLLY hose, ABDs, and ice packs provided. Meds to beds with integrity seal intact provided. [facility]06-20[facility] History of Present illness Narrative* Asa Malik, MAIL HANDLER SORTER - 05/09/2023 12:08 PM EDT 05/09/23 1037 [...] Supine to Sit, Rehab Eval Level of Gilliam: Supine/Sit supervision Transfer Skill: Sit To Stand, Rehab Eval Gilliam (Sit-Stand Transfers) contact guard Physical Assist/Nonphysical Assist: Sit/Stand 1 person assist Weight-Bearing Restrictions: Sit/Stand weight-bearing as tolerated Assistive Device For Transfer: Sit/Stand 2 wheeled walker Gait Skills, PT Eval Level of Gilliam: Gait contact guard Physical Assist/Nonphysical Assist: Gait 1 person assist Weight-Bearing Restrictions: Gait weight-bearing as tolerated Assistive Device For Transfer: Gait 2 wheeled walker Gait Distance (125ft x2) Gait Analysis, PT Eval Gait Pattern Used swing-through gait Gait Deviations Identified (Gait) decreased win;decreased gait speed;decreased step length;decreased stride length Impairments Contributing To Gait Deviations impaired balance;pain;decreased ROM;decreased strength Stair Negotiation Gilliam Level: Stair Negotiation contact guard assist Physical [...] Patient to go to outpatient therapy at [facility] tomorrow at 4:30 pm. Patient informed of post-op follow up call tomorrow. Patient verbalizes understanding, he states that he has been very happy with his care and is complementary of the staff. He denies any other needs at this time. * Mone Watson APRN-REPAIR SERVICER - 05/09/2023 7:21 AM EDT Total Joint [...] post hospital: SEE SS NOTES * Shereen Nichole, BENCH MECHANIC - 05/08/2023 2:34 PM EDT Patient instructed [...] Equipment Available straight cane;wheeled walker;shower chair;elevated toilet seat;sock-aid;granulator operator;long-handled shoe horn;dressing stick;long handle sponge Cognitive [...] Supine to Sit, Rehab Eval Level of Gilliam: Supine/Sit stand-by assist Physical Assist/Nonphysical Assist: Supine/Sit 1 person assist Transfer Skill: Sit to Stand, Rehab Eval Level of Gilliam: Sit/Stand contact guard Physical Assist/Nonphysical Assist: Sit/Stand 1 person assist Weight-Bearing Restrictions: Sit/Stand weight-bearing as tolerated Assistive Device for Transfer: Sit/Stand wheeled walker Upper Body Dressing Level of Gilliam independent Physical Assist/Nonphysical Assist set-up required Lower Body Dressing Level of Gilliam maximum assist (25% patients effort) Physical Assist/Nonphysical Assist 1 person assist Toileting Level of Gilliam contact guard Physical Assist/Nonphysical Assist 1 person assist Grooming Gilliam Level (Grooming) wash face, hands;contact guard assist [...] as needed Therapist Information License # [id number] 1. Pt will complete LB dressing MOD [...] Supine to Sit, Rehab Eval Level of Gilliam: Supine/Sit stand-by assist Physical Assist/Nonphysical Assist: Supine/Sit 1 person assist;verbal cues Transfer Skill: Sit To Stand, Rehab Eval Gilliam (Sit-Stand Transfers) contact guard Physical Assist/Nonphysical Assist: Sit/Stand 1 person assist;verbal cues Weight-Bearing Restrictions: Sit/Stand weight-bearing as tolerated Assistive Device For Transfer: Sit/Stand 2 wheeled walker Gait Skills, PT Eval Level of Gilliam: Gait contact guard Physical Assist/Nonphysical Assist: Gait [...] strength;impaired motor control;impaired postural control Stair Negotiation Gilliam Level: Stair Negotiation not tested Sensory Examination [...] PT to follow Therapist Information License # [id number] * Brittani Honeycutt RN - 05/08/2023 12:01 PM EDT Patient was assessed in [facility] [place] on 04/13/23. Met with patient, spouse and daughter for follow up after surgery to discuss discharge plan. Patient plans to return home with spouse and would to like go to outpatient therapy at [facility]. Patient has a wheeled walker and denies any equipmentneeds at this time. Nursing reports that the incision has been closed with dermabond with hemovac in place, will request a 3 week follow up appointment. Patient denies any other questions or needs atthis time. Referral information faxed to [facility] OP Therapy, appointment scheduled for 05/10/23 @ 4:30 pm. Follow up appointment scheduled for 06/01/@ 11:40 am. * Gloria Carlson RD - [...] (184 lb) 10/10/22 83.9 kg (185 lb) [place] body weight: 68.4 kg (150 lb 12.7 [...] Laterality: Left; Surgeon: Lazarus Coronado MD; Location: [facility] OR BACK SURGERY 2016 x2 NECK SURGERY [...] Thacker Registered Dietitian, Licensed Dietitian 05/08/23 * Mone Watson APRN-CABRERA - 05/08/2023 10:20 AM EDT THIS PATIENT [...] afternoon appointment d/t transportation issues on Monday. [facility] contacted and appointment time changed. Will fax updated information to OP rehab after patient has had surgery. Will continue to follow up with patient and family for discharge needs. * Jazmyne Cardona LPN - 04/13/2023 11:54 AM EDT 04/13/23 1152 Referral Information Arrived From home or self-care Information Source Information Source patient Contact Information Gis Web Developer Name Brittani Honeycutt RN Case Manager's Living [...] with spouse and have OP therapy at [facility], phone number is [phone], patient prefers late morning appointment. Patient has a FW wheeled walker, in addition to raised toilet seat, railing and shower chair. Patient denies any other questions or needs at thistime. CM to continue to follow and assist with discharge plans. documented in this encounterOhio Valley Surgical Hospital06-20-2023 Nurse Note* Nursing Notes - Keira Qiu RN - 05/09/2023 11:57 AM EDT Assessment is complete and remains unchanged from previous at this time with any exceptions noted in the flowsheet. Patient denies further needs and is left with call light and personals in reach. [facility]06-20-2023 Nurse Note* Nursing Notes - Lily Gill RN - 05/09/2023 11:42 AM EDT Patient is admitted to Med Surg floor [facility]06-20-2023 Nurse Note* Nursing Notes - Galilea Rodrigues [...] Medhat to be discharged home later today. [facility] Nurse Note* Nursing Notes - Diamond Alves RN - 05/09/2023 8:31 AM EDT Oxycodone 10 mg verified by this RN and administered to patient by Keira GUTIERREZ, unable to scan in [facility] due to connectivity issues. [facility]06-20-[facility] Surgery Postoperative evaluation and management note* Op Note - Lazarus Coronado MD - 05/09/2023 8:25 AM EDT DATE OF PROCEDURE: May 08, 2023 ATTENDING PHYSICIAN: Lazarus Coronado M.D. BASIC COMBATANT SWIMMER: Mone Watson CNP PREOPERATIVE DIAGNOSIS: Severe right [...] I referenced this against the flexion gap, Derby's line, and the epicondylar axis as well. I then used an anterior referencing stylus and sized it to a size 7. At this point then, the 4:1 cutting block was pinned into place, and all four cuts were performed. The flexion space was opened up with the lamina advisor to command in combat, and the medial and lateral menisci were [...] of motion and anatomic tracking at the red devil patella. Thus, the patella itself was flipped [...] procedure) without the assistance of a skilled surgical appliances salesperson. A surgical appliances salesperson was medically necessary for positioning, retraction and instrume ntation. [employer] Work Phone: [phone] Hospital course Narrative* Shahzad Whiting MD - [...] by Nasal route once for 1 dose. [place] into the nose as directed. Call 911. [...] per tablet Commonly known as: PERCOCET Follow-up: [facility] OP Therapy ext: [phone] Follow up on 05/10/2023 Outpatient therapy appointment scheduled for Monday at 4:30 pm, please arrive at 4:15 pm for theregistration process. Bring insurance cards and photo ID. Upcoming Appointments (up to five)-Some appointments for Medical Center outpatient clinics or diagnostic testing locations are not displayed below Provider Department Dept Phone 06/01/2023 11:40 AM [facility] [phone] documented in this [facility]06-20-2023 Nurse Note* Nursing Notes - Denise Treviño [...] Call light and bedside table within reach. [facility]06-19-2023 Nurse Note* Nursing Notes - Denise Treviño [...] Call light and bedside table within reach. [facility] [employer] [id number] Consult note* Shahzad Whiting MD - 05/08/2023 [...] Laterality: Left; Surgeon: Lazarus Coronado MD; Location: [facility] ONT OR BACK SURGERY 2016 x2 [...] time. Shahzad Whiting MD 05/08/2023 [facility]06-19-2023 Consult note* Shahzad Whiting MD - 05/08/2023 [...] Laterality: Left; Surgeon: Lazarus Coronado MD; Location: [facility] OR BACK SURGERY 2015 x2 NECK SURGERY 2016 [...] Shahzad Whiting MD 05/08/2023 documented in this encounterOhio Valley Surgical Hospital06-19-2023 Nurse Note* Nursing Notes - Keira Qiu RN - 05/08/2023 3:00 PM EDT Assessment is complete and remains unchanged from previous at this time with any exceptions noted in the flowsheet. Patient denies further needs and is left with call light and personals in reach. [facility] Nurse Note* Nursing Notes - Keira [...] light and personals inreach, family at bedside. [facility]-19-[facility] Nurse Note* Chyna Atkins RN - 05/08/2023 10:50 AM EDT Patient discharged from PACU. Patient transported via bed to room 3752. Bed in lowest position calllight within reach. No other complaints at this time. Report given to Keira GUTIERREZ. * Debi Wiggins RN - 05/08/2023 9:11 AM EDT OR 4 Temp: 66.0' Hum: 42.0% documented in this encounterOhio Valley Surgical Hospital06-19-2023 Nurse Surgical operation note* Chyna Atkins RN - 05/08/2023 10:50 AM EDT Patient discharged from PACU. Patient transported via bed to room 3752. Bed in lowest position calllight within reach. No other complaints at this time. Report given to Keira GUTIERREZ. [facility] Hospital Discharge instructions* Discharge Instructions* Keira [...] - 05/08/2023 10:46 AM EDT Contact Office ([phone]) if: > Total Knee ROM < 90 [...] also empty the drain anytime it is snf full. Follow these steps to empty your [...] Home Care, please call Dr. Coronado's nurse ([phone]) the morning after discharge with the recorded [...] be sent through Care Everywhere. * celecoxib (Nauruan) * docusate (oral/rectal) (Nauruan) * oxycodone (Nauruan) documented in this encounterOhio Valley Surgical Hospital06-19-2023 Surgery Postoperative evaluation and management note* Brief Op Note - PRINCE Yo - 05/08/2023 10:19 AM EDT POST OPERATIVE/PROCEDURE NOTE Seth Bell 67 y.o. male [id number] SURGEON Surgeon(s) and Role: * Lazarus Coronado MD - Primary BASIC COMBATANT SWIMMER PRINCE Yo ANESTHESIOLOGIST COOK CHILI: MEAGAN SteeleCOOK CHILI; MERRY Hutchinson SURGICAL STAFF Museum Archivist: Shelley Brown RN; Debi Wiggins RN Nurse Practitioner: PRINCE Yo Scrub Person: Sarita Lizama RN Agency Sales Director: Mahesh Armstrong LPN PROCEDURE PERFORMED Procedure(s) (LRB): [...] Implant Name Type Inv. Item Serial No. Slide Maker Lot No. LRB No. Used Action PALACOS R 1 X 40 US - [id number] PALACOS R 1 X 40 US [id number] Right 2 Implanted PATELLA - KNEE - [id number] PATELLA - KNEE [id number] Right 1 Implanted FEMUR - KNEE - [id number] FEMUR - KNEE [id number] Right 1 Implanted Attune Knee System Tibial Base Fixed Bearing DEPUY [id number] Right 1 Implanted INSERT - KNEE - [id number] INSERT - KNEE [id number] Right 1 Implanted SPECIMENS ID Type Source Tests Collected by Time Destination 1 : Bone RIght Knee Permanent TISSUE SURGICAL PATHOLOGY REQUEST Lazarus Coronado MD 05/08/2023 0914 PRINCE Yo May 08, 2023 10:20 AM [facility] Nurse Surgical operation note* Debi Wiggins RN - 05/08/2023 9:11 AM EDT OR 4 Temp: 66.0' Hum: 42.0% [facility]05-26-20[facility] Evaluation note* Encounter Date Diagnosis Assessment Notes Treatment Notes Treatment Clinical Notes March, Pre-operative examin [facility] [place] for internal medicine (ICD-10 - Z01.818) Reviewed [...] knee (ICD-10 - M17.11) Scheduled for TKA Attune Other 05-04-2023 History of Present illness Narrative* Sneha Busby LPN - 03/23/2023 10:00 AM EDT Ortho Nurse - Established Patient Intake Room#: 2--Visit today is a 4 month post-op check of Left MIKE (D/A)--10-10-22. His pain today is a 6. Has complaints of stiffness. Date: 03/23/2023 10:20 AM Patient: Seth Bell MR#: [id number] : 1955 Age: 67 y.o. Referring Physician: [...] OR BACK SURGERY 2015 x2 NECK SURGERY 2016 [...] right total knee arthroplasty for optimal long term care phlebotomist management. Patient is also here today for [...] joint space, subchondral sclerosis, osteophyte formation, and kxos-ue-iwik contact. AP hip and pelvis films demonstrate [...] of limb, and ultimately loss of life. 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 Despite these risks, the patient would like to proceed with surgical planning. Today, we will initiate the pre- surgical process including nasal MRSA screening, scheduling an appointment for [facility] [place] and the potential surgical date, and reviewing [...] 03/23/2023 10:20 AM Patient: Seth Bell MR#: [id number] : 1955 Age: 67 y.o. Referring Physician: [...] Laterality: Left; Surgeon: Lazarus Coronado MD; Location: [facility] ONT OR BACK SURGERY 2015 x2 NECK SURGERY 2016 [...] has No Known Allergies. documented in this encounterOhio Valley Surgical Hospital01-16-2023 Hospital Discharge instructions Patient Education 12/05/2022 [...] urethra. Follow these instructions at home: Take plhi-jbh-tmemeld and prescription medicines only as told by [...] 11/06/2006 Document Revised: 10/01/2019 Document Reviewed: 12/11/2017 [email or web address] Patient Education Wearable Intelligence. Follow Up Care 12/03/2021 10:50:50 With:SHAUN SHEETS, Ailyn Dee, URL Address: [facility] [address] , [place] [address]- When: Unknown [facility] 12-08-2022 NoteCONSULTATION CONSULTATION DATE: 10/27/2022 HISTORY OF PRESENT ILLNESS: This is a 67-year-old gentleman returning to the clinic for a three month follow up for his chronic lower back pain and hip pain. Since his last visit in July, the patient had a left total hip replacement and is overall doing wonderful. It was completed at [facility] in [place] by Dr. Coronado. The patient is recovering [...] in three months' time unless otherwise indicated.[facility] [id number] Miscellaneous Notes* Nursing Notes - Keira Qiu [...] PROCEDURE: 10/10/2022 ATTENDING PHYSICIAN: Lazarus Coronado M.D. BASIC COMBATANT SWIMMER: Mone Wtason CNP. PREOPERATIVE DIAGNOSES: 1. Severe left hip [...] INDICATIONS: Seth is an established patient of [address]. She is a very pleasant, 66-year-old female [...] induced. The patient was repositioned on the Boston table for anterior hip surgery. The operative [...] and then secured its position with the Boston table lift. With adequate exposure of the [...] procedure) without the assistance of a skilled surgical appliances salesperson. A surgical appliances salesperson was medically necessary for positioning, retraction and [...] to L.hip is 5/10. Medication given- see JAN. Ice pack applied to L. Hip. Denies [...] 10/10/2022 1:00 PM EST Report received from SIGNAL WORKER. Patient hooked up to tele and vitals at this time. Call light within reach and bed in low position. * Brief Op Note - PRINCE Yo - 10/10/2022 11:42 AM EST POST OPERATIVE/PROCEDURE NOTE Seth Bell 66 y.o. male [id number] SURGEON Surgeon(s) and Role: * Lazarus Coronado MD - Primary BASIC COMBATANT SWIMMER PRINCE Yo ANESTHESIOLOGIST COOK CHILI: Gino Rashid APRN-LENARD SURGICAL STAFF Museum Archivist: Imelda Gilbert RN; Lisa Bueno RN Nurse Practitioner: PRINCE Yo Design Studio Consultant: Don Snider; Refugio De Leon PROCEDURE PERFORMED [...] Implant Name Type Inv. Item Serial No. Slide Maker Lot No. LRB No. Used Action bi mentum press fit cup 53 [id number] Left 1 Implanted femoral stem sz 6 DEPUY [id number] Left 1 Implanted femoral head 28mm DEPUY [id number] Left 1 Implanted bi mentum liner DEPUY [id number] Left 1 Implanted SPECIMENS ID Type Source Tests Collected by Time Destination 1 : left femoral head Permanent TISSUE SURGICAL PATHOLOGY REQUEST Lazarus Coronado MD 10/10/2022 1045 Mone Watson APRN-REPAIR SERVICER October 10, 2022 11:42 AM * Nursing Notes - Brittani Honeycutt RN - 09/15/2022 10:07 AM EDT 09/15/22 1004 Information Source Information Source patient ;child Contact Information Gis Web Developer Name Brittani Honeycutt RN Case Manager's Living [...] is effective) Referral Information Referral Source physician NEW met with patient and daughter on this [...] assist with discharge plans. documented in this encounterOhio Valley Surgical Hospital11-22-2022 Note* Nursing Notes - Keira Qiu RN - 10/11/2022 1:22 PM EST Patient is discharging home with belongings at this time. [facility]11-22-2022 Note* Nursing Notes - Lily Gill RN [...] foradditional questions Staff Provider office contact: NA [facility]11-22-2022 Note* Nursing Notes - Ly Lynn RN - 10/11/2022 12:39 PM EST Discharge instructions and education reviewed with pt, education provided for dx and new medications, printed education given, denies any questions, IV removed. Extra ABDs, ice packs and holly hose given to patient. Meds to bed with integrity seal intact given to patient also. [facility]11-22-2022 History of Present illness Narrative* Oriana Menendez [facility] - 10/11/2022 12:14 PM EST AOP Patient Education on Meds to Beds Scripts AOP received prescriptions for Seth Bell for bedside delivery at discharge Medications ordered: Tylenol 325 mg Oxycodone 5 mg Docusate Sodium 100 mg Thera-Tabs Aspirin Ec 81 mg Celebrex 200 mg Issues Identified N/A Patient Education Counseled patient on appropriate use and side effects of medications. Oriana Menendez RPH * Brittani Honeycutt RN - 10/11/2022 11:37 [...] LE in reclincer: QS,GS,SAQ,AP, heel slide, LAQ [id number] ea. Pt trans sit to stand Patricia [...] home today Maintain frequency no * Emilie Dean RD - 10/11/2022 9:13 AM EST NUTRITION [...] 08/03/22 83.6 kg (184 lb 3.2 oz) [place] body weight: 61.5 kg (135 lb 9.3 [...] weight, ONS intake, and medical condition DIOMEDES Lim Registered Dietitian, Licensed Dietitian 10/11/22 * Mone WatsonSUKH-REPAIR SERVICER - 10/11/2022 6:52 AM EST Total Joint [...] post hospital: SEE SS NOTES * Juliette Thomas, OT - 10/10/2022 5:43 PM EST 10/10/22 [...] 0 Equipment Available wheeled walker;shower chair;elevated toilet seat;sock-aid;granulator operator;long-handled shoe horn;long handle sponge Cognitive Status [...] Sit to Stand, Rehab Eval Level of Gilliam: Sit/Stand contact guard Physical Assist/Nonphysical Assist: Sit/Stand 1 person assist Weight-Bearing Restrictions: Sit/Stand weight-bearing as tolerated Assistive Device for Transfer: Sit/Stand wheeled walker Upper Body Dressing Level of Gilliam independent Physical Assist/Nonphysical Assist set-up required Lower Body Dressing Level of Gilliam moderate assist (50% patients effort) Physical Assist/Nonphysical [...] for this session. Pt educated on utilizing granulator operator and sock aid for LB dressing techniques Continue care plan yes Goals Goals For Discharge Pt will return home Discussed risk / benefits with patient;patient's family Therapist Recommendations At Discharge Recommendations OT Services not recommended at Discharge Plan Plan for next session continue with bathing, dressing, bathroom transfers and hygiene training Therapist Information License # [id number] 1. Pt will complete LB dressing MOD [...] Supine to Sit, Rehab Eval Level of Gilliam: Supine/Sit stand-by assist Physical Assist/Nonphysical Assist: Supine/Sit 1 person assist Transfer Skill: Sit To Stand, Rehab Eval Gilliam (Sit-Stand Transfers) contact guard Physical Assist/Nonphysical Assist: Sit/Stand 1 person assist Weight-Bearing Restrictions: Sit/Stand weight-bearing as tolerated Assistive Device For Transfer: Sit/Stand 2 wheeled walker Gait Skills, PT Eval Level of Gilliam: Gait contact guard Physical Assist/Nonphysical Assist: Gait [...] on acute pain regimen. documented in this encounterOhio Valley Surgical Hospital11-22-2022 Note* Nursing Notes - Ly Lynn RN - 10/11/2022 10:52 AM EST Assessment is complete and remains unchanged from previous at this time with any exceptions noted in the flowsheet. Patient denies further needs and is left with call light and personals in reach. Will continue to monitor. [facility] Hospital course Narrative* Shahzad Whiting MD [...] Use Authorization (EUA) for the qualitative detection uvECYT-BjC-2 nucleic acid. XR FLUORO < 1 HOUR [...] Voiding well. CYNTHIA - continue CPAP. Shahzad Whiting MD 10/11/2022 Brief Summary of Consults for [...] Department Dept Phone 11/03/2022 10:40 AM Mone Watson [facility] [phone] documented in this [facility]11-22-2022 Note* Op Note - Lazarus Coronado MD - 10/11/2022 7:33 AM EST DATE OF PROCEDURE: 10/10/2022 ATTENDING PHYSICIAN: Lazarus Coronado M.D. BASIC COMBATANT SWIMMER: Mone Watson CNP. PREOPERATIVE DIAGNOSES: 1. Severe [...] INDICATIONS: Seth is an established patient of [facility]. She is a very pleasant, 66-year-old female [...] induced. The patient was repositioned on the [place] table for anterior hip surgery. The operative [...] and then secured its position with the [place] table lift. With adequate exposure of the [...] procedure) without the assistance of a skilled surgical appliances salesperson. A surgical appliances salesperson was medically necessary for positioning, retraction and instrum entation. [employer] Work Phone: [phone] 518-700211-22-2022 Note* Nursing Notes - Felecia Carrera RN - 10/11/2022 2:58 AM EST Pt assessment remains unchanged. Pt c/o 8-9 pain to L. Hip. Pt states pain is stinging. Dilaudid given- see MAR. Pt ambulated to BR to void at this time. Ice pack changed and applied to L. Hip. Denies any further needs at this time. Call light within reach. [employer]11-22-2022 Note* Nursing Notes - Felecia Carrera RN - 10/11/2022 12:31 AM EST Pt assessment remains unchanged. Pt c/o 5/10 pain to L. Hip. Medication given - see JAN. Fresh ice pack applied to L. Hip. Denies any further needs at this time. Call light within reach. [facility]11-21-2022 Note* Nursing Notes - Felecia Carrera RN - 10/10/2022 8:29 PM EST Pt assessment complete. POC reviewed with pt. Pt states pain to L.hip is 5/10. Medication given- see JAN. Ice pack applied to L. Hip. Denies any further needs at this time. Call light within reach. [facility]11-21-2022 Consult note* Shahzad Whiting MD - 10/10/2022 [...] Use Authorization (EUA) for the qualitative detection uxRFFD-HlE-4 nucleic acid. XR FLUORO < 1 HOUR [...] - sleep apnea. Shahzad Whiting MD 10/10/2022 [facility]11-21-2022 Consult note* Shahzad Whiting MD - 10/10/2022 [...] Use Authorization (EUA) for the qualitative detection vbRMAG-BrZ-2 nucleic acid. XR FLUORO < 1 HOUR [...] Shahzad Whiting MD 10/10/2022 [facility]* Nursing Notes - Ly Lynn RN - 10/10/2022 3:22 PM EST Assessment is complete and remains unchanged from previous at this time with any exceptions noted in the flowsheet. Patient denies further needs and is left with call light and personals in reach. Will continue to monitor. [facility]11-[facility] Hospital Discharge instructions* Discharge Instructions* Keira [...] - 10/10/2022 2:47 PM EST Contact Office ([phone]) if: > Total Knee ROM < 90 [...] be sent through Care Everywhere. * celecoxib (Nauruan) * docusate (oral/rectal) (Nauruan) * oxycodone (Nauruan) documented in this [facility]11-21-2022 Note* Nursing Notes - Ly Lynn RN - 10/10/2022 1:00 PM EST Report received from SIGNAL WORKER. Patient hooked up to tele and vitals at this time. Call light within reach and bed in low position. [facility]11-21-2022 Nurse Note* Diamond Barillas RN - 10/10/2022 12:45 PM EST Discharged from PACU in stable condition. Transported via bed to room 3754 Bed placed in lowest position. Call light within reach. Report given to Jared GUTIERREZ documented in this [facility]11-21-2022 Nurse Surgical operation note* Diamond Barillas RN - 10/10/2022 12:45 PM EST Discharged from PACU in stable condition. Transported via bed to room 3754 Bed placed in lowest position. Call light within reach. Report given to Jared GUTIERREZ [facility]11-21-2022 Note* Brief Op Note - PRINCE Yo - 10/10/2022 11:42 AM EST POST OPERATIVE/PROCEDURE NOTE Seth Bell 66 y.o. male [id number] SURGEON Surgeon(s) and Role: * Lazarus Coronado MD - Primary BASIC COMBATANT SWIMMER Mone Watson APRN-CABRERA ANESTHESIOLOGIST COOK CHILI: MERRY Rodriguez SURGICAL STAFF Museum Archivist: Imelda Gilbert RN; Lisa Bueno RN Nurse Practitioner: PRINCE Yo Design Studio Consultant: Don Snider; Refugio De Leon PROCEDURE PERFORMED [...] Implant Name Type Inv. Item Serial No. Slide Maker Lot No. LRB No. Used Action bi mentum press fit cup 53 [id number] Left 1 Implanted femoral stem sz 6 DEPUY [id number] Left 1 Implanted femoral head 28mm DEPUY [id number] Left 1 Implanted bi mentum liner DEPUY [id number] Left 1 Implanted SPECIMENS ID Type Source Tests Collected by Time Destination 1 : left femoral head Permanent TISSUE SURGICAL PATHOLOGY REQUEST Lazarus Coronado MD 10/10/2022 1045 PRINCE Yo October 10, 2022 11:42 AM [facility]10-27-2022 Note* Nursing Notes - Brittani Honeycutt RN - 09/15/2022 10:07 AM EDT 09/15/22 1004 Information Source Information Source patient ;child Contact Information Gis Web Developer Name Brittani Honeycutt RN Case Manager's Living [...] to follow and assist with discharge plans. T [facility]09-14-2022 History of Present illness Narrative* Sneha Kehinde, CLARITZA - 08/03/2022 2:10 PM EDT Ortho Nurse - Patient Intake Room#: 1--Visit today to evaluate left hip pain. He has had pain for over 3-4 months. He had no falls or injury to this area. His pain today is a 7. He has had no treatment for this hip in the past. Date: 08/03/2022 2:26 PM Patient: Seth Bell MR#: [id number] : 1955 Age: 66 y.o. Referring Physician: [...] Laterality Date BACK SURGERY 2016 NECK SURGERY 2015 Family History: His family history is not [...] [x]cane, []bracing Are you followed by a examination grader? [x] [] Name: [facility] cariology group Are you followed by [...] a left total hip arthroplasty for optimal [place] [facility] management. PHYSICAL EXAM: This is an alert, [...] of jointspace, subchondral sclerosis, osteophyte formation, and cgeg-ze-gyyg contact. Available radiographsfrom 08/2021 appeared normal. IMPRESSION: [...] of limb, and ultimately loss of life. 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 Despite these risks, the patient would like to proceed with surgical planning. Today, we will initiate the pre-surgical process including nasal MRSA screening, scheduling an appointment for [facility] and the potential surgical date, and reviewing [...] Rfl: Not on File documented in this [facility]09-01-2022 NoteCONSULTATION CONSULTATION DATE: 07/21/2022 HISTORY OF PRESENT [...] on 08/18/[address] Lazarus Coronado at [facility], with the intention of moving forward with [...] following his appointment with Dr. Coronado in [place] regarding his hip consultation. He will be seen in the clinic in three months' time unless otherwise indicated.[facility] [place] [address]-22-2022 NotePROCEDURE DETAILS Preoperative Diagnosis: 1. Conductive hearing loss 2. Otosclerosis Postoperative Diagnosis: 1. Conductive hearing loss 2. Otosclerosis Surgeon: Bob Resident/Fellow/Other Sexual Assault Counselor: Zeenat Procedure: 1. Left stapedectomy Estimated Blood [...] of operating microscope. Surgeon: Jamie Rojas MD Sexual Assault Counselor surgeon: Leila Epperson MD Anesthesia: General Endotracheal. [...] mm, 360-degree Eclipse nitinol-based piston manufactured by [employer], [place], [place] was then placed and crimped onto [...] was awakened and tr (more content not included)...[facility] 05-11-2022 NoteHistory & Physical Reviewed: [...] Completion Last Updated: 11-May-2022 10:07 by Jamie Rojas)[facility]04-28-2022 NoteDiagnoses/Problems Blood tests prior to [...] This note was created using speech recognition bench assembler battery software/or [employer] bench assembler battery services. Despite proofreading, several typographical errors might be present that might affect the meaning of the content. Please call with any questions. By signing my name below, I, Amie Lowe, (more content not included)... TouchworksEvaluation + Plan note Future Appointments Appointment Date:12/08/2023 08:30:00 AM Scheduled Provider:Ailyn DUNN MD Location:[facility] Appointment Type:URO Office Visit Diagnostic Tests Pending * PSA Total 12/05/22 [facility] evaluation + Plan note Future Appointments Appointment Date:12/20/2024 08:30:00 AM Scheduled Provider:Ailyn DUNN MD Location:[facility] Appointment Type:URO Office Visit Diagnostic Tests Pending * PSA Total 01/01/24 [facility] evaluation + Plan note Future Appointments Appointment Date:12/20/2024 08:30:00 AM Scheduled Provider:Ailyn DUNN MD Location:[facility] Appointment Type:URO Office Visit [facility] Evaluation + Plan note Future Appointments Appointment Date:12/20/2024 08:30:00 AM Scheduled Provider:Ailyn DUNN MD Location:[facility] Appointment Type:URO Office Visit Future Scheduled Tests Laboratory* Creatinine 06/27/24 [facility] Evaluation note* Diagnosis Left hip pain Pain in joint, pelvic region and thigh documented in this encounter [facility] [place] [facility]* Diagnosis Left hip pain- Primary Pain in joint, pelvic region and thigh documented in this encounter [employer] note* Diagnosis Postoperative wound infection of left hip- Primary Other postoperative infection Preop testing Preoperative examination, unspecified Encounter for preoperative screening laboratory testing for COVID-19 virus Primary osteoarthritis of left hip Primary localized osteoarthrosis, pelvic region and thigh Primary osteoarthritis of left hip Primary localized osteoarthrosis, pelvic region and thigh documented in this encounter [facility] [place] [facility]* Diagnosis Hx of total hip arthroplasty, left- Primary Right knee pain, unspecified chronicity documented in this encounter [employer] noteNo [facility] [email or web address] Other Evaluation note* Diagnosis Acute postoperative pain of left knee- Primary Primary osteoarthritis of right knee Primary localized osteoarthrosis, lower leg Osteoarthritis of right knee Osteoarthrosis, unspecified whether generalized or localized, lower leg documented in this encounter [employer] [facility] [email or web address] Other Evaluation note* Diagnosis Hx of total knee arthroplasty, right- Primary documented in this encounter [facility] Narrative - Reported* Type Description Date [...] Surgical History CYSTOSCOPY 2013 Surgical History COLONOSCOPY 2014 Surgical History C Surgical History PCDF C3-7 2015 Surgical History L2-S1 LAMINECTOMY, DECOMPRESSIO N, FUSION 2017 Surgical History ARTHROSCOPY RIGHT KNEE 2018 Surgical History LAP UMBILICAL HERNIA REPAIR 201 9 Surgical History TRANSRECTAL ULTRASOUND (TRUS) W ITH BIOPSY 2021 Surgical History LEFT TOTAL HIP ARTHROPLASTY 202 2 Hospitalization History SEE SURGICAL HX Attune Other History general Narrative - Reported* Type [...] 2013 Surgical History COLONOSCOPY 2013 Surgical History LHC Surgical History PCDF C3-7 2015 Surgical History L2-S1 LAMINECTOMY, DECOMPRESSIO N, FUSION 2016 Surgical History ARTHROSCOPY RIGHT KNEE 2018 Surgical History LAP UMBILICAL HERNIA REPAIR 201 9 Surgical History TRANSRECTAL ULTRASOUND (TRUS) W ITH BIOPSY 2021 Surgical History LEFT TOTAL HIP ARTHROPLASTY 202 2 Surgical History Right TKA 04/2023` Hospitalization History SEE SURGICAL HX Attune Other History general Narrative - ReportedNoMoxie Other History general Narrative - Reported* Type [...] 2013 Surgical History COLONOSCOPY 2013 Surgical History LHC Surgical History PCDF C3-7 2015 Surgical History L2-S1 LAMINECTOMY, DECOMPRESSIO N, FUSION 2016 Surgical History ARTHROSCOPY RIGHT KNEE 2018 Surgical History LAP UMBILICAL HERNIA REPAIR 201 9 Surgical History TRANSRECTAL ULTRASOUND (TRUS) W ITH BIOPSY 2021 Surgical History LEFT TOTAL HIP ARTHROPLASTY 202 2 Surgical History Right TKA 04/2023` Surgical History EGD 05/2023 Hospitalization History SEE SURGICAL HX Attune Other History of Present illness Narrative* History [...] my professional assessment of this patient s manager inspection katarzyna progressive condition, the complexity of evaluation and treatment is moderate. * This note was created using speech recognition bench assembler battery software/or [employer] bench assembler battery services. Despite proofreading, several typographical errors might be present that might affect the meaning of the content. Please call with any questions. * By signing my name below, I, Tiff Petit, attest that this documentation has been prepared under the direction and in the presence of Dr. Rojas. All medical record entries made by the Tiff were at my direction and personally dictated [...] stapedectomy for otosclerosis is an elective procedure. [employer]xl[facility]lchiaudi-Sjgsbffh Work Phone: History of Present illness Narrative* [...] my professional assessment of this patient s manager inspection katarzyna progressive condition, the complexity of evaluation and treatment is moderate. * This note was created using speech recognition bench assembler battery software/or [employer] bench assembler battery services. Despite proofreading, several typographical errors might be present that might affect the meaning of the content. Please call with any questions. * By signing my name below, I, Amie Lowe, Scribe, attest that this documentation has been prepared under the direction and in the presence of Dr. Rojas. All medical record entries made by the Tiff were at my direction and personally dictated [...] stapedectomy for otosclerosis is an elective procedure. [employer]Kte[facility]llsnincmj[facility]Unvwhhdr Work Phone: Hospital course Narrative No data available for this section [facility] Hospital Discharge instructions No data available for this section [facility] [place] Progress note No data available for this section [facility] reason for visit Narrative* Auth/Cert Specialty Diagnoses / Procedures Referred By Dodie t Referred To Contact Diagnoses Primary osteoarthritis of left hip Primary osteoarthritis of left hip [M16.12] Procedures [facility] TOTAL HIP ARTHROPLASTY ARTHROPLASTY HIP TOTAL ANTERIOR APPROACH Lazarus Coronado MD [address] [place] [address] Referral ID Status Reason Start Date Expiration Date Visits Re quested Visits Authorized [id number] 08/15/2022 1 1 [facility] Summary Purpose Family History Unknown Family Member Name Dates Details : Father Status:Active Family history of malignant neoplasm: Father(V16.9, Z80.9) Status:Active Alive and well: Mother Status:Active Unknown Family Member Name Dates Details : Father Status:Active Family history of malignant neoplasm: Father(V16.9, Z80.9) Status:Active Alive and well: Mother Status:Active Advance Directives Latest Code Status on File Code Status [...] Referral Specialty Diagnoses / Procedures Referred By Dodie silverman Referred To Contact Diagnoses Left hip pain Procedures XR HIP WITH PELVIS LEFT Lazarus Coronado MD [address] [place] [address] Referral ID Status Reason Start Date Expiration Date V isits Requested Visits Authorized [id number] Pending Review 08/03/2022 08/28/2023 1 1 Specialty Diagnoses / Procedures Referred By Dodie t Referred To Contact Diagnoses Right knee pain, unspecified chronicity Procedures XR KNEE RIGHT 4+ VIEWS Lazarus Coronado MD [address] [place] [address] Referral ID Status Reason Start Date Expiration Date V isits Requested Visits Authorized [id number] New Request 03/23/2023 04/16/2024 1 1 Specialty Diagnoses / Procedures Referred By Octaviaac t Referred To Contact Diagnoses Right knee pain, unspecified chronicity Procedures XR BONE LENGTH STUDY Lazarus Coronado MD [address] [place] [address] Referral ID Status Reason Start Date Expiration Date V isits Requested Visits Authorized [id number] New Request 03/23/2023 04/16/2024 1 1 Referral ID Status Reason Start Date Expiration Date V isits Requested Visits Authorized [id number] New Request 03/23/2023 04/16/2024 1 1 Specialty Diagnoses / Procedures Referred By Contac t Referred To Contact Diagnoses Hx of total hip arthroplasty, left Procedures XR HIP WITH PELVIS LEFT Lazarus Coronado MD [address] [place] [address] Referral ID Status Reason Start Date Expiration Date V isits Requested Visits Authorized [id number] New Request 03/07/2023 03/31/2024 1 1 Specialty Diagnoses / Procedures Referred By Contac t Referred To Contact Physical Therapy Diagnoses Acute postoperative pain of left knee Mone Watson, SUKH-REPAIR SERVICER [address] [place] [address] Referral ID Status Reason Start Date Expiration Date V isits Requested Visits Authorized [id number] New Request 05/08/2023 06/01/2024 1 1 Scheduling Instructions . Specialty Diagnoses / Procedures Referred By Octaviaac t Referred To Contact Diagnoses Hx of total knee arthroplasty, right Procedures XR KNEE RIGHT 3 VIEWS Mone Watson, FITNESS INSTRUCTOR-REPAIR SERVICER [address] [place] [address] Referral ID Status Reason Start Date Expiration Date V isits Requested Visits Authorized [id number] New Request 05/24/2023 06/17/2024 1 1 Additional Source Comments (unrecognized sect ion and content) No Status Records FoundNo Status Records FoundNo Status Records FoundNo Status Records FoundNo Status Records FoundNo Status Records FoundNo Status Records FoundNo Status Records Found INFORMATION SOURCE (unrecogn ized section and content) DATE CREATED AUTHOR 12/15/2021 [facility] DATE CREATED AUTHOR AUTHOR'S ORGANIZ ATION 07/17/2022 [employer] DATE CREATED AUTHOR AUTHOR'S ORGANIZ ATION 07/18/2022 [facility] DATE CREATED AUTHOR AUTHOR'S ORGANIZ ATION 03/31/2023 [facility] DATE CREATED AUTHOR AUTHOR'S ORGANIZ ATION 06/08/2023 [facility] DATE CREATED AUTHOR AUTHOR'S ORGANIZ ATION 06/27/2023 [facility] DATE CREATED AUTHOR AUTHOR'S ORGANIZ ATION 05/20/2024 [facility] DATE CREATED AUTHOR AUTHOR'S ORGANIZ ATION 06/25/2024 [facility] Reason for Visit (unrecogniz ed section and content) Specialty Diagnoses / Procedures Referred By Contac t Referred To Contact Diagnoses Left hip pain Procedures XR HIP WITH PELVIS LEFT Lazraus Coronado MD [address] [place] [address] Referral ID Status Reason Start Date Expiration Date V isits Requested Visits Authorized [id number] Pending Review 08/03/2022 08/28/2023 1 1 Reason Comments Pain New Patient Specialty Diagnoses / Procedures Referred By Contac t Referred To Contact Diagnoses Hx of total hip arthroplasty, left Procedures XR HIP WITH PELVIS LEFT Mone Watson, FITNESS INSTRUCTOR-CABRERA [address] [place] [address] Referral ID Status Reason Start Date Expiration Date V isits Requested Visits Authorized [id number] New Request 10/27/2022 11/21/2023 1 1 Specialty Diagnoses / Procedures Referred By Contac t Referred To Contact Diagnoses Hx of total hip arthroplasty, left Procedures XR HIP WITH PELVIS LEFT Lazarus Coronado MD [address] [place] [address] Referral ID Status Reason Start Date Expiration Date V isits Requested Visits Authorized [id number] New Request 03/07/2023 03/31/2024 1 1 Specialty Diagnoses / Procedures Referred By Contac t Referred To Contact Diagnoses Right knee pain, unspecified chronicity Procedures XR BONE LENGTH STUDY Lazarus Coronado MD [address] [place] [phone] Referral ID Status Reason Start Date Expiration Date V isits Requested Visits Authorized [id number] New Request 03/23/2023 04/16/2024 1 1 Reason Comments Post Op Visit Specialty Diagnoses / Procedures Referred By Dodie silverman Referred To Contact Diagnoses Primary osteoarthritis of right knee Primary osteoarthritis of right knee [M17.11] Procedures [facility] TOTAL KNEE ARTHROPLASTY ARTHROPLASTY KNEE TOTAL Lazarus Coronado MD [address] [facility] [place] [address] Referral ID Status Reason Start Date Expiration Date Visits Re quested Visits Authorized [id number] 03/29/2023 1 1 Reason Comments Post Op Visit Care Teams (unrecognized sec tion and content) Personnel Name: STEVAN GALDAMEZ DO Address: Address: [address] Wood Finisher Apprentice Relationship Specialty Start Date End Date Stevan Galdamez DO [address] [facility] [place] [phone] PCP - General Internal Medicine 08/03/22 Wood Finisher Apprentice Relationship Specialty Start Date End Date Stevan Galdamez DO [address] [place] [phone] PCP - General Internal Medicine 08/03/22 Wood Finisher Apprentice Relationship Specialty Start Date End Date Stevan Galdamez DO [address] [place] [phone] PCP - General Internal Medicine 08/03/22 Wood Finisher Apprentice Relationship Specialty Start Date End Date Stevan Galdamez DO [address] [place] [phone] PCP - General Internal Medicine 08/03/22 Wood Finisher Apprentice Relationship Specialty Start Date End Date Stevan Galdamez DO [address] [place] [phone] PCP - General Internal Medicine 08/03/22 Wood Finisher Apprentice Relationship Specialty Start Date End Date Stevan Galdamez DO [address] [place] [phone] PCP - General Internal Medicine 08/03/22 Wood Finisher Apprentice Relationship Specialty Start Date End Date Stevan Galdamez DO [address] [place] [address] PCP - General Internal Medicine 08/03/22 Wood Finisher Apprentice Relationship Specialty Start Date End Date Stevan Galdamez DO [address] [place] [address] PCP - General Internal Medicine 08/03/22 Wood Finisher Apprentice Relationship Specialty Start Date End Date Stevan Galdamez DO [address] [place] [address] PCP - General Internal Medicine [...] Ly Lynn RN)2029 (Given - Provider: Felecia Carrera, BRENDA) 0241 (Given - Provider: Felecia Carrera, RN)0834 (Given - Provider: Ly Lynn RN)1500 [...] Until Discontinued 2029 (Given - Provider: Felecia Carrera, BRENDA) dexAMETHasone (DECADRON) injection 10 mg (COMPLETED) 10 [...] on Mon10/10/22 at 1400, Until Discontinued, Post-op/Post-Proc 152 (Given - Provider: Ly Lynn RN)2034 (Given - Provider: Felecia Carrera RN) 024 (Given - Provider: Felecia Carrera RN)0833 (Given [...] at 0700, Administer 2 hours preop, Pre-op/Pre-Proc 0721 (Given - Provider: Chyna Atkins RN) traZODone (DESYREL) tablet 50 mg 50 mg, Oral, DAILY AT BEDTIME, First dose on Mon10/10/22 at 2100, Until Discontinued 2030 (Given - Provider: Felecia Carrera RN) Continuous Medication Order 10/09/2022 10/10/2022 10/11/2022 sodium chloride 0.9% IV solution (CANCELED) Intravenous, at 100 mL/hr, CONTINUOUS, Starting on Mon10/10/22 at 0700, Until Mon10/10/22 at 1302, Pre-op/Pre-Proc 0723 ($$New Bag$$ - Provider: Chyna Atikns RN)1121 (Paused - Provider: MERRY Rodriguez - [...] 2 g, Intravenous, Administer over 30 Minutes, SAMPLE WRAPPER TO PROCEDURE, 1 dose, Starting on Mon10/10/22 at 0657, Until Discontinued, Other, Pre-operative antibiotic, For 15 Minutes, Pre-op/Pre-Proc 1015 (Given - Provider: Gino Rashid, FITNESS INSTRUCTOR-COOK CHILI) HYDROmorphone (DILAUDID) injection 0.5 mg 0.5 mg, [...] Diamond Barillas RN)1219 (Given - Provider: Diamond Barillas RN) ondansetron 4mg/2ml (ZOFRAN) injection 4 mg 4 mg, Intravenous, EVERY 4 HOURS NEEDED, Starting on Mon10/10/22 at 1306, Until Mon10/11/22 at 1529, Nausea / Vomiting, Post-op/Post-Proc ondansetron 4mg/2ml (ZOFRAN) injection 4 mg (COMPLETED) 4 mg, Intravenous, ONCE NEEDED, 1 dose, Starting on Mon10/10/22 at 1153, Until Mon10/10/22 at 1203, Nausea / Vomiting, Recovery 1203 (Given - Provider: Diamond Barillas, RN) oxyCODONE (ROXICODONE) tablet 5-10 mg 5-10 mg, Oral, EVERY 4 HOURS NEEDED, Starting on Mon10/10/22 at 1306, Until Mon10/11/22 at 1529, moderate-severe pain, If pain unrelieved with oxycodone, contact pharmacist to enter order for Oxycodone ER 10mg PO Q12H for 3 days, Post-op/Post-Proc 2030 (Given - Provider: Felecia Carrera, BRENDA) 0031 (Given - Provider: Felecia Carrera RN)0845 (Given - Provider: Ly Lynn RN) senna-docusate (SENOKOT-S) 8.6-50 MG per tablet 2 tablet 2 tablet, Oral, 2 TIMES DAILY NEEDED, Starting on Mon10/10/22 at 1306, Until Mon10/11/22 at 1529, constipation, Post-op/Post-Proc sodium chloride 0.9 % irrigation (CANCELED) NEEDED, Starting on Mon10/10/22 at 1030, Until Mon10/10/22 at 1302, Intra-op/Intra-Proc 1030 (Given - Provider: Lazarus Coronado MD)1240 (Given - Provider: Diamond Barillas, RN) sodium phosphate w/sodium biphosphate (FLEETS) enema [...] Mon05/08/23 at 1300, Until Discontinued, , Post-op/Post-Proc 133 (Given - Provider: Keira Qiu RN)1821 (Given - Provider: Keira Qiu RN) 0054 (Given - Provider: Denise Treviño RN)0833 (Given - Provider: Keira Qiu RN)1418 (Given - Provider: Keira Qiu RN) amLODIPine (NORVASC) tablet 5 mg 5 mg, Oral, DAILY, First dose on Mon05/08/23 at 2000, Until Discontinued 2037 (Given - Provider: Denise Treviño RN) Aspirin tablet delayed release 81 mg 81 mg, Oral, EVERY 12 HOURS, First dose on Mon05/09/23 at 0900, Until Discontinued, Start in AM day after surgery, Post-op/Post-Proc 832 (Given - Provid er: Keira Qiu RN) Aspirin tablet delayed release 81 mg 81 mg, Oral, DAILY, First dose on Mon05/10/23 at 0900, Until Discontinued Atorvastatin (LIPITOR) tablet 80 mg 80 mg, Oral, DAILY, First dose on Mon05/08/23 at 2000, Until Discontinued 2037 (Given - Provider: Denise Treviño RN) buPROPion (WELLBUTRIN) tablet XL 150 mg (COMPLETED) 150 mg, Oral, ONCE, 1 dose, On Mon05/08/23 at 1415, Do not crush, chew, or divide. 1344 (Given - Provider: Keira Qiu RN) buPROPion (WELLBUTRIN) tablet XL 300 mg (CANCELED) 300 mg, Oral, DAILY, First dose on Mon05/08/23 at 1230, Until Discontinued 133 (Given - Provider: Keira Qiu RN) buPROPion [...] or chew., Indications: Inpt Stress Ulcer Prophylaxis 133 (Given - Provider: Keira Qiu RN) 08 (Given - Provider: Keira Qiu RN) Ropivacaine [...] by pharmacy NOT for IV use, Intra-op/Intra-Proc 950 (Given - Provider: Debi Wiggins RN) Tamsulosin HCl (FLOMAX) capsule 0.4 mg 0.4 mg, Oral, DAILY, First dose on Mon05/08/23 at 1230, Until Discontinued, Slow release product. Do not chew or crush 1330 (Given - Provider: Keira Qiu RN) 0833 (Given - Provider: Keira Qiu RN) traZODone (DESYREL) tablet 50 mg 50 mg, Oral, DAILY AT BEDTIME, First dose on Mon05/08/23 at 2100, Until Discontinued 2037 (Given - Provider: Denise Treviño, RN) Continuous Medication Order 05/07/2023 05/08/2023 05/09/2023 [...] Provider: Keira Qiu RN)1015 (Paused - Provider: MEAGAN SteeleCOOK CHILI - Comment: Switch to gravity)1016 (Restarted - Provider: MEAGAN SteeleCOOK CHILI)1057 (Stopped - Provider: Keira Qiu RN) Sodium chloride 0.9% IV solution Intravenous, at 100 mL/hr, CONTINUOUS, Starting on Mon05/08/23 at 1100, Until Mon05/09/23 at 1750, Convert IV to PRN adapter if adequate oral intake, Post-op/Post-Proc 1057 (Rate/Dose Verify - Provider: Keira Qiu RN)1619 (Rate/Dose Verify - Provider: Keira Qiu RN)2302 ($$New Bag$$ - Provider: Denise Treviño RN) 0726 (Stopped - Provider: Keira Qiu RN) PRN Medication Order 05/07/2023 05/08/2023 05/09/2023 acetaminophen (TYLENOL) tablet 1,000 mg (COMPLETED) 1,000 mg, Oral, ONCE DIRECTED, 1 dose, Starting on Mon05/08/23 at 0708, Until Discontinued, See admin instructions, Administer 1 hour preop., Pre-op/Pre-Proc 0730 (Given - Provider: Keira Qiu RN) bisacodyl (DULCOLAX) suppository 10 mg 10 mg, Rectal, DAILY NEEDED, Starting on Mon05/08/23 at 1051, Until Mon05/09/23 at 1750, constipation, Post-op/Post-Proc ceFAZolin (ANCEF) 2 g in dextrose 100 mL premix IVPB (COMPLETED) 2 g, Intravenous, Administer over 30 Minutes, SAMPLE WRAPPER TO PROCEDURE, 1 dose, Starting on Mon05/08/23 at 0708, Until Discontinued, Other, Pre-operative antibiotic, For 15 Minutes, Pre-op/Pre-Proc 0847 (Given - Provider: Boy Vidal APRN-COOK CHILI) Celecoxib (CELEBREX) capsule 200 mg (COMPLETED) 200 [...] BE BASED ON THE PRIMARY CLINICAL RECORDS. [facility] [employer] [facility]. provides no warranty or guarantee of the accuracy or completeness of information in this document.
[2024-06-28 07:08] LABS: Alanine Aminotransferase 32 U/L (16-63); Albumin Globulin Ratio 1.4; Albumin Level 3.8 g/dL (3.4-5.0); Alkaline Phosphatase 50 U/L (46-116); Anion Gap 10.7; Aspartate Amino Transferase 21 U/L (15-37); BUN Creatinine Ratio 21.3; Bilirubin Total 0.9 mg/dL (0.2-1.0); Calcium 8.9 mg/dL (8.5-10.1); Chloride 104 mmol/L (98-107); Estimated GFR (African America >60 (>=60); Estimated GFR (Non-African Ame >60 (>=60); Globulin 2.7 g/dL; Glucose 96 mg/dL (74-106); Potassium 3.7 mmol/L (3.5-5.1); Sodium 140 mmol/L (136-145); Total Protein 6.5 g/dL (6.4-8.2)
[2024-06-28 08:47] LABS: Basophils Absolute Auto 0.1 10^3/uL (0.0-0.1); Eosinophils Absolute Auto 0.2 10^3/uL (0.0-0.7); Eosinophils Percent Auto 3.5 % (0.9-7.0); Hematocrit 39.7 % (42.0-54.0); Hemoglobin 13.2 g/dL (14.0-18.0); Immature Granulocytes Abs Auto 0.02 10^3/uL (0.00-0.03); Immature Granulocytes Pct Auto 0.3 % (0.0-0.5); Lymphocytes Percent Auto 32.9 % (20.5-60.0); Mean Corpuscular HGB Conc 33.2 g/dL (29.9-35.2); Mean Corpuscular Hemoglobin 29.9 pg (25.9-34.0); Mean Corpuscular Volume 89.8 fL (80.0-94.0); Monocytes Absolute Auto 0.7 10^3/uL (0.3-0.8); Monocytes Percent Auto 11.4 % (1.7-12.0); Neutrophils Absolute Auto 3.1 10^3/uL (1.4-6.5); Neutrophils Percent Auto 50.9 % (43.0-75.0); Platelet Count 183 10^3/uL (150-450); Red Blood Count 4.42 10^6/uL (4.70-6.10); Red Cell Distribution Width 13.2 % (11.0-15.0); White Blood Count 6.1 10^3/uL (4.0-11.0)
[2024-06-28 09:05] LABS: Chol HDL Ratio 2.3; Cholesterol 125 mg/dL (<=200); HDL Cholesterol 55 mg/dL (40-60); LDL Cholesterol Calculated 48.8 mg/dL; Triglycerides 106 mg/dL (<=150); VLDL CHOLESTEROL 21.2 mg/dL
== END 2024-06-28 06:41 | disposition home or self-care (01) ==
LOC: LAB 06:40
PROVIDERS: PCP Internal Medicine; Visit Provider Internal Medicine
DX: I25.10 Atherosclerotic heart disease of native coronary artery without angina pectoris (principal); I10 Essential (primary) hypertension; E78.00 Pure hypercholesterolemia, unspecified; K21.00 Gastro-esophageal reflux disease with esophagitis, without bleeding
CPT/HCPCS: 36415; 80053; 80061; 85025

== ENCOUNTER 2024-06-28 06:47 | Outpatient (OUT) | payer MEDICARE, SELFPAY ==
--- OUTSIDE RECORDS SUMMARY | 2024-06-28 06:50 | XMS_ITS | CCD ---
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 Role Phone Rudolph Stevan Johnson Unavailable Unavailable Unavailable Stevan Galdamez DO Primary Care Provider Stevan Galdamez DO Primary Care Provider [phone] STEVAN GALDAMEZ Primary Care Physician [phone] RUDOLPH, DR ZUÑIGA Primary Care Unavailable GONZALEZ [...] physicia Propensity to adverse reactions 7 Comment:Done [facility] Other (10 sources) Allergies Reconciled Propensity to adverse reactions Unknown [facility] Other (1 source) No Known Medication Allergies; 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: [No Known Medication Allergies] Propensity to adverse reactions (disorder) [facility] Repository Medications Current Medications Medication Drug Class(es) [...] day(s), # 90 tab(s), Refills(s) 3, Pharmacy: [email or web address], 179, cm, 12/05/22 9:44:00 EST, Height/Length [...] Daily, # 90 tab(s), Refills(s) 3, Pharmacy: [facility], 179, cm, 12/03/21 9:55:00 EST, Height/Length [...] by Nasal route once for 1 dose. Tye into the nose as directed. Call 911. [...] activity, # 30 tab(s), Refills(s) 3, Pharmacy: [facility], 179, cm, 12/05/22 9:44:00 EST, Height/Length [...] day(s), # 180 cap(s), Refills(s) 3, Pharmacy: [facility], 179, cm, 01/01/24 12:08:00 EST, Height/Length Dosing, 90, kg, 01/01/24 12:08:00 EST, Weight Dosing Start Date: 02/12/24 Stop Date: 02/06/25 Status: Ordered Start: 12-05-2022 End: 11-30-2023 take 1 capsule by mouth twice daily tamsulosin 0.4 mg Cap 0.4 mg = 1 cap(s), Oral, BID, X 90 day(s), # 180 cap(s), Refills(s) 3, Pharmacy: [facility], 179, cm, 12/05/22 9:44:00 EST, Height/Length [...] Active docusate sodium 50 mg / sennosides, halfway 8.6 mg oral tablet (2 sources) Start: [...] Coronary arteriosclerosis; 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: [Atherosclerotic heart disease of [place] coronary artery without angina pectoris] Onset: 2 [...] sources) H/O: high risk medication; 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: [Other fpc (current) 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] Episodic Other aftercare (12 sources) Long-term current use of 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; 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: [Other fpc (current) 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] Episodic Other aftercare (1 source) Other fpc (current) 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; 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: [Other fpc (current) 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] Episodic Other and ill-defined [...] Patient due for screening colonoscopy 05/29/2034. Normal [facility] Consent for Procedure/Surger yon 04-24-2024 Consent for Procedure/Surgery [id number] 0TIFF Normal [facility] Ambulatory Visit Summaryon 0 04-23-2024 Ambulatory [...] 8:30 AM EST With: SHAUN SHEETS, Ailyn Dee Where: [facility] Physician Referralon 024 Physician Referral [id number] TIFF Normal [facility] Office Visiton 03-20-2024 Follow-up visit [id number] Seth Bell 1955 M Date Provider Department Center 03/20/2024 Vahe8-JOAQUIM CHAUDHARY [facility] Family History Problem Relation Age of Onset Dementia Mother Family Status - Relation Status Age at Mother Alive Father Level of Service:13578 [place] OFFICE/OUTPATIENT ESTABLISHED LOW MDM 20 MIN Normal [facility] Patient Educationon 01-01-20 24 Patient Education [...] Where to find more information ? The [place] [employer]: www.cancer.org ? [place] [employer]: www.auanet.org Contact a health care [...] adds flu (more content not included)... Normal [facility] Urology Office/Clinic Noteon 01-01-2024 Urology Office/Clinic Note [...] [facility] [address], [place] [address] [phone] Additional Instructions: w/ PSA Patient Education Prostate [...] times pe (more content not included)... Normal [facility] Comment on above: Result Comment: Elec tronically Signed By: Ailyn DUNN MD\.br\Date and Time Signed: 01/01/24 13:00 EST\.br\Electronically Co-Signed By: Pamela Quezada\.br\Date and Time Co-Signed: 01/01/24 12:59 EST Lab Reportson 12-29-2023 Lab Reports [id number] 0TIFF Normal [facility] SURGICAL PATH REPORTon 06-07 SURGICAL PATH REPORT [facility] Department of Pathology [address] [place] [id number] Name: SETH BELL : 1955 [facility] [id number] Number: Gender Male [facility] : n: Admit 67 years Attending ALAN HENLEY Age: Provider: Ordering ALAN HENLEY Provider: Consulti Surgical Pathology Report ng: ACCESSION: COLLECTED DATE/TIME: RECEIVED DATE/TIME: PATHOLOGIST: [id number] 06/03/2023 12:04 EDT 06/05/2023 12:04 EDT BHARTI SHEETS, MARK MELENDEZ Final Diagnosis Report for [facility] [place] ANTRAL STOMACH, BIOPSY: - ANTRAL TYPE [...] LICHA/adan 06/05/2023 Tissue pathology report for: [facility], [address] [place] [address]; ____ ____ Print 06/07/2023 11:16 EDT Number: Date/Time: [facility] Department of Pathology [address] [place] [id number] Name: SETH BELL : 1955 [facility] [id number] Number: [facility] : n: Admit 67 years Attending ALAN HENLEY Age: Provider: Ordering ALAN HENLEY Provider: Consulti Surgical Pathology Report ng: ACCESSION: COLLECTED DATE/TIME: RECEIVED DATE/TIME: PATHOLOGIST: [id number] 06/03/2023 12:04 EDT 06/05/2023 12:04 EDT BHARTI SHEETS, AMRK MELENDEZ Gross Description PATHOLOGY SERVICES PROVIDED BY [employer] (CLIA #[id number]) in cooperation with [facility] at [address] [place] [address] (CLIA #[id number]) Microscopic Diagnosis The final diagnosis is based on a microscopic exam of sales and merchandising representative sections. NOTE: One or more of the reagents used to perform assays on this specimen MAY have contained components considered to be analyte specific reagents ( ASRs). ASRs have not been cleared or approved by the U.S. Food and Drug Administration. The performance characteristics of these assays have been determined by the Department of Pathology at [facility]. This assay was performed subsequent to the H and E examination. Appropriate positive and negative controls were examined with appropriate reactivity. Codes CPT CODE: 39023 + [id number] ____ ____ Print 06/07/2023 11:16 EDT Number: Date/Time: Normal [facility] Comment on above: Performed By: #### 9 [id number] #### [facility] Services [address] [place] [id number] White Sourer: Rainer Doss MD BASIC METABOLIC PANELon 04-21 Anion gap [Moles/Vol] 7 mmol/L Low [facility] Calcium [Mass/Vol] 8.1 mg/dL Low [facility] Chloride [Moles/Vol] 103 mmol/L [facility] Comment on above: Please note: Triglyc eride levels of 600mg/dL or higher may positively bias chloride results by approximately 2.1 mmol CO2 [Moles/Vol] 22 mmol/L [facility] Creatinine [Mass/Vol] 0.60 mg/dL Low [facility] GFR COMMENT Average GFR for 60-6 9 years old = 85. [facility] Comment on above: Chronic Kidney disea se, GFR = <60. Kidney failure, GFR = <15. The GFR estimate is not adjusted for extreme body surface area or acute process, nor has it been validated for women or ethnic groups other than and . Testing performed at [place], [place] [address] GFR/1.73 sq M.predicted among blacks MDRD (S/P/Bld) [Vol rate/Area] 172 mL/min/{1.73_m2} ml/min/1.73sq .m [facility] GFR/1.73 sq M.predicted among non-blacks MDRD (S/P/Bld) [Vol rate/Area] 142 mL/min/{1.73_m2} ml/min/1.73sq .m [facility] Glucose post fast [Mass/Vol] 136 mg/dL High [facility] Comment on above: NORMAL <100 mg/dL PREDIABETES 101-126 mg/dL DIABETES 126 mg/dL or higher Interpretation and review of laboratory results Abnormal [facility] Potassium [Moles/Vol] 4.0 mmol/L [facility] Sodium [Moles/Vol] 132 mmol/L Low [facility] Urea nitrogen [Mass/Vol] 18 mg/dL [facility] BMP FASTINGon 05-09-2023 Anion gap [Moles/Vol] 7 mmol/L Low 8-16 [facility] Comment on above: Performed By: #### B MPF ####[place] [address]#### ACBC ####[place] [address] Calcium [Mass/Vol] 8.1 mg/dL Low 8.4-10.2 [facility] Comment on above: Performed By: #### B MPF ####Testing performed at [address] [address]#### ACBC ####Testing performed at [address] [address] Chloride [Moles/Vol] 103 mmol/L Normal 98-107 [facility] Comment on above: Result Comment: Grey romero note: Triglyceride levels of 600mg/dL or higher may positively bias chloride results by approximately 2.1 mmol Performed By: #### B MPF ####Testing performed at [address] [address]#### ACBC ####Testing performed at [place] [id number] CO2 [Moles/Vol] 22 mmol/L Normal 22-30 [facility] Comment on above: Performed By: #### B MPF ####Testing performed at [address] [address]#### ACBC ####[place] [address] Creatinine [Mass/Vol] 0.60 mg/dL Low 0.7-1.2 [facility] Comment on above: Performed By: #### B MPF ####Testing performed at [place] [id number]#### ACBC ####Testing performed at [address] [address] EST. GFR, 172 ml/min/1.73sq.m [facility] Comment on above: Performed By: #### B MPF ####[place] [address]#### ACBC ####Testing performed at [address] [address] EST. GFR,Non 142 ml/min/1.73sq.m [facility] Comment on above: Performed By: #### B MPF ####[place] [address]#### ACBC ####Testing performed at [address] [address] GFR Information Average GFR for 60-6 9 years old = 85. [facility] Comment on above: Result Comment: Biom[employer] Facilitator katarzyna Kidney disease, GFR = <60. Kidney failure, GFR = <15. The GFR estimate is not adjusted for extreme body surface area or acute process, nor has it been validated for women or ethnic groups other than and . Testing performed at [place] [address] Performed By: #### B MPF ####[place] [address]#### ACBC ####Testing performed at [address] [address] Glucose [Mass/Vol] 136 mg/dL High 70-100 [facility] Comment on above: Result Comment: NORMAL <100 mg/dL PREDIABETES 101-126 mg/dL DIABETES 126 mg/dL or higher Performed By: #### B MPF ####Testing performed at [address] [address]#### ACBC ####Testing performed at [address] [address] Potassium [Moles/Vol] 4.0 mmol/L Normal 3.5-5.1 [facility] Comment on above: Performed By: #### B MPF ####Testing performed at [address] [address]#### ACBC ####Testing performed at [address] [address] Sodium [Moles/Vol] 132 mmol/L Low 137-145 [facility] Comment on above: Performed By: #### B MPF ####Testing performed at [address] [address]#### ACBC ####Testing performed at [address] [address] Urea nitrogen [Mass/Vol] 18 mg/dL Normal 7-20 [facility] Comment on above: Performed By: #### B MPF ####Testing performed at [address] [address]#### ACBC ####Testing performed at [address] [address] CBCon 05-09-2023 ABSOLUTE BAS 0.0 10*3/uL Normal 0.0-0.2 [facility] Comment on above: Performed By: #### B MPF ####Testing performed at [address] [address]#### ACBC ####Testing performed at [address] [address] ABSOLUTE EOS 0.0 10*3/uL Normal 0.0-0.7 [facility] Comment on above: Performed By: #### B MPF ####Testing performed at [address] [place] [address]#### ACBC ####Testing performed at [address] [place] [address] ABSOLUTE NEUTROPHIL COUNT 10.1 10*3/uL High 1.4-6.5 [facility] Comment on above: Performed By: #### B MPF ####Testing performed at [address] [place] [address]#### ACBC ####Testing performed at [address] [place] [address] Basophils/100 WBC (Bld) 0.0 % Normal 0.0-2.0 [facility] Comment on above: Performed By: #### B MPF ####Testing performed at [address] [place] [address]#### ACBC ####Testing performed at [address] [place] [address] DTYPE AUTO DIFF Normal [facility] Comment on above: Performed By: #### B MPF ####Testing performed at [address] [place] [address]#### ACBC ####Testing performed at [address] [place] [address] Eosinophils/100 WBC (Bld) 0.0 % Normal 0.0-11.0 [facility] Comment on above: Performed By: #### B MPF ####Testing performed at [address] [place] [address]#### ACBC ####Testing performed at [address] [place] [address] Lymphocytes (Bld) [#/Vol] 0.8 10*3/uL Low 1.2-3.4 [facility] Comment on above: Performed By: #### B MPF ####Testing performed at [address] [place] [address]#### ACBC ####Testing performed at [address] [address] Lymphocytes/100 WBC (Bld) 6.7 % Low 20.0-55.0 [facility] Comment on above: Performed By: #### B MPF ####Testing performed at [address] [address]#### ACBC ####Testing performed at [address] [address] Monocytes (Bld) [#/Vol] 1.0 10*3/uL High 0.0-0.7 [facility] Comment on above: Performed By: #### B MPF ####Testing performed at [place] [id number]#### ACBC ####Testing performed at [address] [address] Monocytes/100 WBC (Bld) 8.3 % Normal 0.0-10.0 [facility] Comment on above: Performed By: #### B MPF ####Testing performed at [place] [id number]#### ACBC ####Testing performed at [address] [address] Neutrophils/100 WBC (Bld) 85.0 % High 37.0-75.0 [facility] Comment on above: Performed By: #### B MPF ####Testing performed at [place] [id number]#### ACBC ####Testing performed at [address] [address] Erythrocyte distribution width (RBC) [Ratio] 13.8 % Normal 11.5-14.5 [facility] Comment on above: Performed By: #### B MPF ####Testing performed at [address] [address]#### ACBC ####Testing performed at [address] [address] Hematocrit (Bld) [Volume fraction] 25.8 % Low 42.0-52.0 [facility] Comment on above: Performed By: #### B MPF ####Testing performed at [place] [id number]#### ACBC ####Testing performed at [address] [address] Hemoglobin (Bld) [Mass/Vol] 9.0 g/dL Low 14.0-18.0 [facility] Comment on above: Performed By: #### B MPF ####[place] [address]#### ACBC ####Testing performed at [place] [id number] MCH (RBC) [Entitic mass] 31.3 pg Normal 26.0-35.0 [facility] Comment on above: Performed By: #### B MPF ####[place] [address]#### ACBC ####[place] [address] MCHC (RBC) [Mass/Vol] 34.8 g/dL Normal 27.0-37.0 [facility] Comment on above: Performed By: #### B MPF ####[place] [address]#### ACBC ####Testing performed at [place] [id number] MCV (RBC) [Entitic vol] 90.0 fL Normal 80.0-100.0 [facility] Comment on above: Performed By: #### B MPF ####Testing performed at [place] [id number]#### ACBC ####Testing performed at [address] [address] Platelet mean volume (Bld) [Entitic vol] 9.1 fL Normal 7.4-11.0 [facility]3] Comment on above: Performed By: #### B MPF ####[place] [address]#### ACBC ####Testing performed at [address] [address] Platelets (Bld) [#/Vol] 149 10*3/uL Normal 130-400 [facility] Comment on above: Performed By: #### B MPF ####[place] [address]#### ACBC ####[place] [address] RBC (Bld) [#/Vol] 2.87 10*6/uL Low 4.0-6.1 [facility] Comment on above: Performed By: #### B MPF ####[place] [address]#### ACBC ####[place] [address] WBC (Bld) [#/Vol] 11.9 10*3/uL High 3.6-11.0 [facility] Comment on above: Performed By: #### B MPF ####[place] [address]#### ACBC ####Testing performed at [place] [id number] CBC, EDIF, PLATELETon 2022 ABSOLUTE BASOPHIL COUNT 0.0 10*3/uL 0.0 - 0.2 10*3/uL [facility] Basophils/100 WBC (Bld) 0.0 % 0.0 - 2.0 % [facility] Differential cell count method Nom (Bld) AUTO DIFF % [facility] Eosinophils (Bld) [#/Vol] 0.0 10*3/uL 0.0 - 0.7 10*3/uL [facility] Eosinophils/100 WBC (Bld) 0.0 % 0.0 - 11.0 % [facility] Erythrocyte distribution width (RBC) [Ratio] 13.8 % 11.5 - 14.5 % [facility] Hematocrit (Bld) [Volume fraction] 25.8 % Low 42.0 - 52.0 % [facility] Hemoglobin (Bld) [Mass/Vol] 9.0 g/dL Low [facility] Interpretation and review of laboratory results Abnormal [facility] Lymphocytes (Bld) [#/Vol] 0.8 10*3/uL Low 1.2 - 3.4 10*3/uL [facility] Lymphocytes/100 WBC (Bld) 6.7 % Low 20.0 - 55.0 % [facility] MCH (RBC) [Entitic mass] 31.3 pg 26.0 - 35.0 PG [facility] MCHC (RBC) [Mass/Vol] 34.8 g/dL [facility] MCV (RBC) [Entitic vol] 90.0 fL [facility] Monocytes (Bld) [#/Vol] 1.0 10*3/uL High 0.0 - 0.7 10*3/uL [facility] Monocytes/100 WBC (Bld) 8.3 % 0.0 - 10.0 % [facility] Neutrophils (Bld) [#/Vol] 10.1 10*3/uL High 1.4 - 6.5 10*3/uL [facility] Neutrophils/100 WBC (Bld) 85.0 % High 37.0 - 75.0 % [facility] Platelet mean volume (Bld) [Entitic vol] 9.1 fL [facility] Platelets (Bld) [#/Vol] 149 10*3/uL 130 - 400 10*3/uL [facility] RBC (Bld) [#/Vol] 2.87 10*6/uL Low 4.0 - 6.1 10*6/uL [facility] WBC (Bld) [#/Vol] 11.9 10*3/uL High 3.6 - 11.0 10*3/uL [facility] MRSA SCREENon 05-08-2023 MRSA DNA DALIA+probe Ql (Unsp spec) Negative Normal NEGATIVE [facility] Comment on above: Performed By: #### M RSAST ####Testing performed at [facility] [place] [address] STAPH AUREUS SCREEN Negative Normal NEGATIVE [facility] Comment on above: Result Comment: TEST ING PERFORMED BY PCR Performed By: #### M RSAST ####Testing performed at [address] [address] SCREEN: MRSA ONLY, NARES (IS OLATION SCREEN)on 05-08-2023 MRSA isol Org specific cx Ql (Nose) Negative NEGATIVE [facility] STAPHYOCOCCUS AUREUS BY PCR Negative NEGATIVE [facility] Comment on above: TESTING PERFORMED BY PCR [facility] XR KNEE LEFT 2 VIEWSon 05-08 XR KNEE LEFT 2 VIEWS EXAM: XR KNEE LEFT 2 VIEWS INDICATION: tka COMPARISON: None. TECHNIQUE: Radiographs as described above FINDINGS/IMPRESSION: Status post total knee arthroplasty without evidence of complication. Expected perioperative soft tissue changes. Normal [facility] XR Knee - left 2 Viewson FINDINGS/IMPRESSION: [...] of complication. Expected perioperative soft tissue changes. [facility] Radiology Study observation (narrative) [facility] XR Knee - left 2 ViewsAndrewe d By: Clinton Dickens on 05-08-2023 [facility] Work Phone: CBCon 04-13-2023 ABSOLUTE BAS 0.0 10*3/uL Normal 0.0-0.2 [facility] Comment on above: Performed By: #### U MAC #### Testing performed at [place] [id number] ABSOLUTE EOS 0.2 10*3/uL Normal 0.0-0.7 [facility] Comment on above: Performed By: #### U MAC #### Testing performed at [place] [id number] ABSOLUTE NEUTROPHIL COUNT 3.8 10*3/uL Normal 1.4-6.5 [facility] Comment on above: Performed By: #### U MAC #### Testing performed at [place] [id number] Basophils/100 WBC (Bld) 0.5 % Normal 0.0-2.0 [facility] Comment on above: Performed By: #### U MAC #### Testing performed at [address] [address] DTYPE AUTO DIFF Normal [facility] Comment on above: Performed By: #### U MAC #### Testing performed at [address] [address] Eosinophils/100 WBC (Bld) 2.6 % Normal 0.0-11.0 [facility] Comment on above: Performed By: #### U MAC #### Testing performed at [address] [address] Lymphocytes (Bld) [#/Vol] 1.3 10*3/uL Normal 1.2-3.4 [facility] Comment on above: Performed By: #### U MAC #### Testing performed at [address] [address] Lymphocytes/100 WBC (Bld) 22.9 % Normal 20.0-55.0 [facility] Comment on above: Performed By: #### U MAC #### Testing performed at [address] [address] Monocytes (Bld) [#/Vol] 0.5 10*3/uL Normal 0.0-0.7 [facility] Comment on above: Performed By: #### U MAC #### Testing performed at [address] [address] Monocytes/100 WBC (Bld) 8.9 % Normal 0.0-10.0 [facility] Comment on above: Performed By: #### U MAC #### Testing performed at [address] [address] Neutrophils/100 WBC (Bld) 65.1 % Normal 37.0-75.0 [facility] Comment on above: Performed By: #### U MAC #### Testing performed at [address] [address] Erythrocyte distribution width (RBC) [Ratio] 14.6 % High 11.5-14.5 [facility] Comment on above: Performed By: #### U MAC #### Testing performed at [address] [address] Hematocrit (Bld) [Volume fraction] 40.8 % Low 42.0-52.0 [facility] Comment on above: Performed By: #### U MAC #### Testing performed at [address] [address] Hemoglobin (Bld) [Mass/Vol] 13.5 g/dL Low 14.0-18.0 [facility] Comment on above: Performed By: #### U MAC #### Testing performed at [address] [address] MCH (RBC) [Entitic mass] 29.9 pg Normal 26.0-35.0 [facility] Comment on above: Performed By: #### U MAC #### Testing performed at [address] [address] MCHC (RBC) [Mass/Vol] 33.0 g/dL Normal 27.0-37.0 [facility] Comment on above: Performed By: #### U MAC #### Testing performed at [address] [address] MCV (RBC) [Entitic vol] 90.7 fL Normal 80.0-100.0 [facility] Comment on above: Performed By: #### U MAC #### Testing performed at [address] [address] Platelet mean volume (Bld) [Entitic vol] 8.9 fL Normal 7.4-11.0 [facility]3] Comment on above: Performed By: #### U MAC #### Testing performed at [address] [address] Platelets (Bld) [#/Vol] 157 10*3/uL Normal 130-400 [facility] Comment on above: Performed By: #### U MAC #### Testing performed at [address] [address] RBC (Bld) [#/Vol] 4.50 10*6/uL Normal 4.0-6.1 [facility] Comment on above: Performed By: #### U MAC #### Testing performed at [address] [address] WBC (Bld) [#/Vol] 5.9 10*3/uL Normal 3.6-11.0 [facility] Comment on above: Performed By: #### U MAC #### Testing performed at [address] [address] CMP FASTINGon 04-13-2023 A:G RATIO 1.6 RATIO Normal 1.3-2.2 [facility] Comment on above: Performed By: #### U MAC #### Testing performed at [address] [address] ALBUMIN 4.4 G/dl Normal 3.5-5.0 [facility] Comment on above: Performed By: #### U MAC #### Testing performed at [address] [address] ALP [Catalytic activity/Vol] 52 U/L Normal 38-126 [facility] Comment on above: Performed By: #### U MAC #### Testing performed at [address] [address] [address] ALT [Catalytic activity/Vol] 41 U/L Normal 17-63 [facility] Comment on above: Performed By: #### U MAC #### Testing performed at [address] [address] AST [Catalytic activity/Vol] 29 U/L Normal 15-41 [facility] Comment on above: Performed By: #### U MAC #### Testing performed at [address] [address] Bilirubin [Mass/Vol] 1.6 mg/dL High 0.2-1.2 [facility] Comment on above: Performed By: #### U MAC #### Testing performed at [address] [address] Calcium [Mass/Vol] 9.8 mg/dL Normal 8.4-10.2 [facility] Comment on above: Performed By: #### U MAC #### Testing performed at [address] [address] Chloride [Moles/Vol] 105 mmol/L Normal 98-107 [facility] Comment on above: Performed By: #### U MAC #### Testing performed at [address] [address] CO2 [Moles/Vol] 24 mmol/L Normal 22-30 [facility] Comment on above: Performed By: #### U MAC #### Testing performed at [address] [address] Creatinine [Mass/Vol] 0.67 mg/dL Normal 0.66-1.25 [facility] Comment on above: Performed By: #### U MAC #### Testing performed at [address] [address] EST. GFR, 151 ml/min/1.73sq.m [facility] Comment on above: Performed By: #### U MAC #### Testing performed at [address] [address] EST. GFR,Non 125 ml/min/1.73sq.m [facility] Comment on above: Performed By: #### U MAC #### Testing performed at [address] [address] GFR Information Average GFR for 60-6 9 years old = 85. Normal [facility] Comment on above: Result Comment: Biomass Facilitator katarzyna Kidney disease, GFR = <60. Kidney failure, GFR = <15. The GFR estimate is not adjusted for extreme body surface area or acute process, nor has it been validated for women or ethnic groups other than and . Performed By: #### U MAC #### Testing performed at [address] [address] Glucose [Mass/Vol] 106 mg/dL High 70-100 [facility] Comment on above: Result Comment: NORMAL <100 mg/dL PREDIABETES 101-126 mg/dL DIABETES 126 mg/dL or higher Performed By: #### U MAC #### Testing performed at [address] [address] Potassium [Moles/Vol] 4.2 mmol/L Normal 3.5-5.1 [facility] Comment on above: Performed By: #### U MAC #### Testing performed at [address] [address] Protein [Mass/Vol] 7.2 g/dL Normal 6.3-8.2 [facility] Comment on above: Performed By: #### U MAC #### Testing performed at [place] [id number] Sodium [Moles/Vol] 137 mmol/L Normal 136-145 [facility] Comment on above: Performed By: #### U MAC #### Testing performed at [place] [id number] Urea nitrogen [Mass/Vol] 17 mg/dL Normal 7-20 [facility] Comment on above: Performed By: #### U MAC #### Testing performed at [address] [address] HEMOGLOBIN A1Con 04-13-2023 Glucose [Mass/Vol] 105 mg/dL Normal [facility] Comment on above: Performed By: #### U MAC #### [place] [address] HbA1c (Bld) [Mass fraction] 5.3 % Normal <6 [facility] Comment on above: Result Comment: NORMAL <5.7% PREDIABETES 5.7-6.4% DIABETES 6.5% OR HIGHER Performed By: #### U MAC #### [place] [address] MRSA SCREENon 04-13-2023 MRSA DNA DALIA+probe Ql (Unsp spec) Negative Normal NEGATIVE [facility] Comment on above: Performed By: #### M RSAST ####[place] [address] STAPH AUREUS SCREEN Positive Abnormal NEGATIVE [facility] Comment on above: Result Comment: TEST ING PERFORMED BY PCR Performed By: #### M RSAST ####Testing performed at [address] [address] PROTIMEon 04-13-2023 INR Coag (PPP) [Relative time] 1.02 {INR} Normal 0.85-1.10 [facility] Comment on above: Result Comment: 2.0-3.0 THERAPEUTIC RANGE 2.5-3.5 MECHANICAL VALVE RANGE Performed By: #### U MAC #### Testing performed at [place] [id number] PT Coag (PPP) [Time] 13.5 s Normal 11.8-14.4 [facility] Comment on above: Performed By: #### U MAC #### Testing performed at [address] [address] TYPE AND SCREEN CROSSMATCH C ONVERTIBLEon 04-13-2023 TYPE AND SCREEN CROSSMATCH CONVERTIBLE WORKUP EXPIRES 05/11/2023,2359 ABO/RH(D) O POSITIVE ANTIBODY SCREEN NEGATIVE ARM BAND NUMBER [id number] Normal [facility] Comment on above: Performed By: #### U MAC #### Testing performed at [address] [address] URINE MACROSCOPICon 04-13-20 Bilirubin Ql (U) Negative Normal NEGATIVE [facility] Comment on above: Performed By: #### U MAC #### Testing performed at [address] [address] Clarity (U) CLEAR Normal CLEAR [facility] Comment on above: Performed By: #### U MAC #### Testing performed at [address] [address] Color (U) YELLOW Normal YELLOW [facility] Comment on above: Performed By: #### U MAC #### Testing performed at [address] [address] Glucose Ql (U) Negative Normal NEGATIVE [facility] Comment on above: Performed By: #### U MAC #### Testing performed at [address] [address] pH (U) 6.0 [pH] Normal 5.0-7.0 [facility] Comment on above: Performed By: #### U MAC #### Testing performed at [address] [address] URINE HEMOGLOBIN Negative Normal NEGATIVE [facility] Comment on above: Performed By: #### U MAC #### Testing performed at [address] [address] URINE KETONE Negative Normal NEGATIVE [facility]3] Comment on above: Performed By: #### U MAC #### Testing performed at [address] [address] URINE LEUKOTEST Negative Normal NEGATIVE [facility] Comment on above: Performed By: #### U MAC #### Testing performed at [address] [address] URINE NITRATES Negative Normal NEGATIVE [facility] Comment on above: Performed By: #### U MAC #### Testing performed at [address] [address] URINE SPEC GRAVITY 1.025 Normal 1.010-1.025 [facility] Comment on above: Performed By: #### U MAC #### Testing performed at [address] [address] URINE TOTAL PROTEIN Negative Normal NEGATIVE [facility] Comment on above: Performed By: #### U MAC #### Testing performed at [address] [address] Urobilinogen Qn (U) 1.0 {Tee'U}/dL Normal 0.2-1.0 [facility] Comment on above: Performed By: #### U MAC #### Testing performed at [address] [address] BASIC METABOLIC PANELon 11-2 Anion gap [Moles/Vol] 9 mmol/L [facility] Calcium [Mass/Vol] 8.4 mg/dL [facility] Chloride [Moles/Vol] 105 mmol/L [facility] CO2 [Moles/Vol] 22 mmol/L [facility] Creatinine [Mass/Vol] 0.68 mg/dL [facility] GFR COMMENT Average GFR for 60-6 9 years old = 85. [facility] Comment on above: Chronic Kidney disea se, GFR = <60. Kidney failure, GFR = <15. The GFR estimate is not adjusted for extreme body surface area or acute process, nor has it been validated for women or ethnic groups other than and . GFR/1.73 sq M.predicted among blacks MDRD (S/P/Bld) [Vol rate/Area] 149 mL/min/{1.73_m2} ml/min/1.73sq .m [facility] GFR/1.73 sq M.predicted among non-blacks MDRD (S/P/Bld) [Vol rate/Area] 123 mL/min/{1.73_m2} ml/min/1.73sq .m [facility] Glucose post fast [Mass/Vol] 153 mg/dL High [facility] Comment on above: NORMAL <100 mg/dL PREDIABETES 101-126 mg/dL DIABETES 126 mg/dL or higher Interpretation and review of laboratory results Abnormal [facility] Potassium [Moles/Vol] 3.7 mmol/L [facility] Sodium [Moles/Vol] 136 mmol/L [facility] Urea nitrogen [Mass/Vol] 16 mg/dL [facility] BMP FASTINGon 10-11-2022 Anion gap [Moles/Vol] 9 mmol/L Normal 8-16 [facility] Comment on above: Performed By: #### A CBC, BMPF #### Testing performed at [address] [address] Calcium [Mass/Vol] 8.4 mg/dL Normal 8.4-10.2 [facility] Comment on above: Performed By: #### A CBC, BMPF #### Testing performed at [address] [address] Chloride [Moles/Vol] 105 mmol/L Normal 98-107 [facility] Comment on above: Performed By: #### A CBC, BMPF #### Testing performed at [address] [address] CO2 [Moles/Vol] 22 mmol/L Normal 22-30 [facility] Comment on above: Performed By: #### A CBC, BMPF #### Testing performed at [address] [address] Creatinine [Mass/Vol] 0.68 mg/dL Normal 0.66-1.25 [facility] Comment on above: Performed By: #### A CBC, BMPF #### Testing performed at [address] [address] EST. GFR, 149 ml/min/1.73sq.m Normal [facility]3] Comment on above: Performed By: #### A CBC, BMPF #### Testing performed at [address] [address] EST. GFR,Non 123 ml/min/1.73sq.m Normal [facility]3] Comment on above: Performed By: #### A CBC BMPF #### Testing performed at [address] [address] GFR Information Average GFR for 60-6 9 years old = 85. Normal [facility] Comment on above: Result Comment: Biomass Facilitator katarzyna Kidney disease, GFR = <60. Kidney failure, GFR = <15. The GFR estimate is not adjusted for extreme body surface area or acute process, nor has it been validated for women or ethnic groups other than and . Performed By: #### A CBC, BMPF #### Testing performed at [place] [id number] Glucose [Mass/Vol] 153 mg/dL High 70-100 [facility] Comment on above: Result Comment: NORMAL <100 mg/dL PREDIABETES 101-126 mg/dL DIABETES 126 mg/dL or higher Performed By: #### A CBC, BMPF #### Testing performed at [address] [address] Potassium [Moles/Vol] 3.7 mmol/L Normal 3.5-5.1 [facility] Comment on above: Performed By: #### A CBC, BMPF #### Testing performed at [address] [address] Sodium [Moles/Vol] 136 mmol/L Normal 136-145 [facility] Comment on above: Performed By: #### A CBC, BMPF #### Testing performed at [address] [address] Urea nitrogen [Mass/Vol] 16 mg/dL Normal 7-20 [facility] Comment on above: Performed By: #### A CBC, BMPF #### Testing performed at [address] [address] CBCon 10-11-2022 ABSOLUTE BAS 0.0 10*3/uL Normal 0.0-0.2 [facility] Comment on above: Performed By: #### A CBC, BMPF #### Testing performed at [address] [address] ABSOLUTE EOS 0.0 10*3/uL Normal 0.0-0.7 [facility] Comment on above: Performed By: #### A CBC, BMPF #### Testing performed at [address] [address] ABSOLUTE NEUTROPHIL COUNT 7.8 10*3/uL High 1.4-6.5 [facility] Comment on above: Performed By: #### A CBC, BMPF #### Testing performed at [address] [address] Basophils/100 WBC (Bld) 0.1 % Normal 0.0-2.0 [facility] Comment on above: Performed By: #### A CBC, BMPF #### Testing performed at [address] [address] DTYPE AUTO DIFF Normal [facility] Comment on above: Performed By: #### A CBC, BMPF #### Testing performed at [address] [address] Eosinophils/100 WBC (Bld) 0.1 % Normal 0.0-11.0 [facility] Comment on above: Performed By: #### A CBC, BMPF #### Testing performed at [address] [address] Erythrocyte distribution width (RBC) [Ratio] 12.8 % Normal 11.5-14.5 [facility] Comment on above: Performed By: #### A CBC, BMPF #### Testing performed at [address] [address] Hematocrit (Bld) [Volume fraction] 29.8 % Low 42.0-52.0 [facility] Comment on above: Performed By: #### A CBC, BMPF #### Testing performed at [address] [address] Hemoglobin (Bld) [Mass/Vol] 10.1 g/dL Low 14.0-18.0 [facility] Comment on above: Performed By: #### A CBC, BMPF #### Testing performed at [address] [address] Lymphocytes (Bld) [#/Vol] 0.8 10*3/uL Low 1.2-3.4 [facility] Comment on above: Performed By: #### A CBC, BMPF #### Testing performed at [address] [address] Lymphocytes/100 WBC (Bld) 8.4 % Low 20.0-55.0 [facility] Comment on above: Performed By: #### A CBC, BMPF #### Testing performed at [address] [address] MCH (RBC) [Entitic mass] 30.2 pg Normal 26.0-35.0 [facility] Comment on above: Performed By: #### A CBC, BMPF #### Testing performed at [address] [address] MCHC (RBC) [Mass/Vol] 33.8 g/dL Normal 27.0-37.0 [facility] Comment on above: Performed By: #### A CBC, BMPF #### Testing performed at [address] [address] MCV (RBC) [Entitic vol] 89.3 fL Normal 80.0-100.0 [facility] Comment on above: Performed By: #### A CBC, BMPF #### Testing performed at [address] [address] Monocytes (Bld) [#/Vol] 1.1 10*3/uL High 0.0-0.7 [facility] Comment on above: Performed By: #### A CBC, BMPF #### Testing performed at [address] [address] Monocytes/100 WBC (Bld) 10.8 % High 0.0-10.0 [facility] Comment on above: Performed By: #### A CBC, BMPF #### Testing performed at [address] [address] Neutrophils/100 WBC (Bld) 80.6 % High 37.0-75.0 [facility] Comment on above: Performed By: #### A CBC, BMPF #### Testing performed at [address] [address] Platelet mean volume (Bld) [Entitic vol] 9.3 fL Normal 7.4-11.0 [facility]3] Comment on above: Performed By: #### A CBC, BMPF #### Testing performed at [address] [address] Platelets (Bld) [#/Vol] 146 10*3/uL Normal 130.0-400.0 [facility] Comment on above: Performed By: #### A CBC, BMPF #### Testing performed at [address] [address] RBC (Bld) [#/Vol] 3.33 10*6/uL Low 4.0-6.1 [facility] Comment on above: Performed By: #### A CBC, BMPF #### Testing performed at [address] [address] WBC (Bld) [#/Vol] 9.7 10*3/uL Normal 3.6-11.0 [facility] Comment on above: Performed By: #### A CBC, BMPF #### Testing performed at [address] [address] CBC, EDIF, PLATELETon 2021 ABSOLUTE BASOPHIL COUNT 0.0 10*3/uL 0.0 - 0.2 10*3/uL [facility] Basophils/100 WBC (Bld) 0.1 % 0.0 - 2.0 % [facility] Differential cell count method Nom (Bld) AUTO DIFF % [facility] Eosinophils (Bld) [#/Vol] 0.0 10*3/uL 0.0 - 0.7 10*3/uL [facility] Eosinophils/100 WBC (Bld) 0.1 % 0.0 - 11.0 % [facility] Erythrocyte distribution width (RBC) [Ratio] 12.8 % 11.5 - 14.5 % [facility] Hematocrit (Bld) [Volume fraction] 29.8 % Low 42.0 - 52.0 % [facility] Hemoglobin (Bld) [Mass/Vol] 10.1 g/dL Low [facility] Interpretation and review of laboratory results Abnormal [facility] Lymphocytes (Bld) [#/Vol] 0.8 10*3/uL Low 1.2 - 3.4 10*3/uL [facility] Lymphocytes/100 WBC (Bld) 8.4 % Low 20.0 - 55.0 % [facility] MCH (RBC) [Entitic mass] 30.2 pg 26.0 - 35.0 PG [facility] MCHC (RBC) [Mass/Vol] 33.8 g/dL [facility] MCV (RBC) [Entitic vol] 89.3 fL [facility] Monocytes (Bld) [#/Vol] 1.1 10*3/uL High 0.0 - 0.7 10*3/uL [facility] Monocytes/100 WBC (Bld) 10.8 % High 0.0 - 10.0 % [facility] Neutrophils (Bld) [#/Vol] 7.8 10*3/uL High 1.4 - 6.5 10*3/uL [facility] Neutrophils/100 WBC (Bld) 80.6 % High 37.0 - 75.0 % [facility] Platelet mean volume (Bld) [Entitic vol] 9.3 fL [facility] Platelets (Bld) [#/Vol] 146 10*3/uL 130.0 - 400.0 10*3/uL [facility] RBC (Bld) [#/Vol] 3.33 10*6/uL Low 4.0 - 6.1 10*6/uL [facility] WBC (Bld) [#/Vol] 9.7 10*3/uL 3.6 - 11.0 10*3/uL [facility] NOVEL CORONAVIRUSon 11-21-20 22 NARRATIVE This test was performed using isothermal DALIA and has been approved as Emergency Use Authorization (EUA) for the qualitative detection [id number] nucleic acid. Normal [facility] Comment on above: Performed By: #### C OVID #### [place] [address] SARS-CoV-2 (COVID-19) RNA DALIA+probe Ql (Unsp spec) Not detected Normal NOT DETECTED [facility] Comment on above: Result Comment: Nega tive [...] #### C OVID #### Testing performed at [place] [id number] NOVEL CORONAVIRUS LAB 1 - NA SOPHARYNGEALon 10-10-2022 NARRATIVE -1 This test was performed using isothermal DALIA and has been approved as Emergency Use Authorization (EUA) for the qualitative detection [id number] nucleic acid. [facility] SARS-CoV-2 (COVID-19) RNA DALIA+probe Ql (Unsp spec) Not detected NOT DETECTED [facility] Comment on above: Negative results do [...] patient is critically ill or clinically deteriorating. [facility] RAPID TOX SCREEN,URINEon AMPHETAMINE Negative Normal NEGATIVE [facility] Comment on above: Result Comment: <500 ng/ml CUTOFF Performed By: #### R TOX #### Testing performed at [address] [address] BARBITURATES Negative Normal NEGATIVE [facility]3] Comment on above: Result Comment: <200 ng/ml CUTOFF Performed By: #### R TOX #### Testing performed at [address] [address] BENZODIAZEPINES Negative Normal NEGATIVE [facility] Comment on above: Result Comment: <150 ng/ml CUTOFF Performed By: #### R TOX #### Testing performed at [address] [address] BUPRENORPHINE Negative Normal NEGATIVE [facility] Comment on above: Result Comment: <10 ng/ml CUTOFF Performed By: #### R TOX #### Testing performed at [address] [place] [address] CANNABINOIDS Positive Abnormal NEGATIVE [facility]3] Comment on above: Result Comment: <50 ng/ml CUTOFF *Unconfirmed Screening Result* Unconfirmed screening results are to be used only for medical treatment purposes. Performed By: #### R TOX #### Testing performed at [address] [place] [address] COCAINE Negative Normal NEGATIVE [facility] Comment on above: Result Comment: <150 ng/ml CUTOFF Performed By: #### R TOX #### Testing performed at [address] [address] METHADONE Negative Normal NEGATIVE [facility] Comment on above: Result Comment: <200 ng/ml CUTOFF Performed By: #### R TOX #### Testing performed at [address] [place] [address] METHAMPHETAMINE Negative Normal NEGATIVE [facility] Comment on above: Result Comment: <500 ng/ml CUTOFF Performed By: #### R TOX #### Testing performed at [address] [address] OPIATES Negative Normal NEGATIVE [facility] Comment on above: Result Comment: <100 ng/ml CUTOFF Performed By: #### R TOX #### Testing performed at [address] [place] [address] OXYCODONE Positive Abnormal NEGATIVE [facility] Comment on above: Result Comment: <100 ng/ml CUTOFF *Unconfirmed Screening Result* Unconfirmed screening results are to be used only for medical treatment purposes. Performed By: #### R TOX #### Testing performed at [address] [address] PHENCYCLIDINE Negative Normal NEGATIVE [facility] Comment on above: Result Comment: <25 ng/ml CUTOFF Performed By: #### R TOX #### Testing performed at [address] [place] [address] PROPOXYPHENE Negative Normal NEGATIVE [facility]3] Comment on above: Result Comment: <300 ng/ml CUTOFF Performed By: #### R TOX #### Testing performed at [address] [address] TRICYCLIC ANTIDEPRESSANTS Positive Abnormal NEGATIVE [facility] Comment on above: Result Comment: <300 ng/ml CUTOFF *Unconfirmed Screening Result* Unconfirmed screening results are to be used only for medical treatment purposes. Performed By: #### R TOX #### Testing performed at [address] [address] REPEAT ABO/RHon 10-10-2022 REPEAT ABO/RH Positive Normal [facility] Comment on above: Performed By: #### R ABRH #### Testing performed at [address] [address] REPEAT ABO/RH (D) TYPINGon 12-10-2021 ABO and Rh group Nom (Bld ) [facility] TOXICOLOGY DRUG SCREEN, URIN Alexander 10-10-2022 Amphetamine (U) [Mass/Vol] Negative NEGATIVE NG/ML [facility] Comment on above: <500 ng/ml CUTOFF Barbiturates Screen Ql (U) Negative NEGATIVE NG/ML [facility] Comment on above: <200 ng/ml CUTOFF Benzodiazepines Ql (U) Negative NEGATIVE NG/ML [facility] Comment on above: <150 ng/ml CUTOFF Benzoylecgonine Ql (U) Negative NEGATIVE NG/ML [facility] Comment on above: <150 ng/ml CUTOFF Buprenorphine Ql (U) Negative NEGATIV E NG/ML [facility] Comment on above: <10 ng/ml CUTOFF Cannabinoids Screen Ql (U) Positive Abnormal NEGATIVE NG/ML [facility] Comment on above: <50 ng/ml CUTOFF *Unconfirmed Screening Result* Unconfirmed screening results are to be used only for medical treatment purposes. Interpretation and review of laboratory results Abnormal [facility] Methadone Screen Ql (U) Negative NEGATIVE [facility] Comment on above: <200 ng/ml CUTOFF Methamphetamine (U) [Mass/Vol] Negative NEGATIVE NG/ML [facility] Comment on above: <500 ng/ml CUTOFF Opiates Screen Ql (U) Negative NEGATIVE NG/ML [facility] Comment on above: <100 ng/ml CUTOFF oxyCODONE Ql (U) Positive Abnormal NEGATIVE NG/ML [facility] Comment on above: <100 ng/ml CUTOFF *Unconfirmed Screening Result* Unconfirmed screening results are to be used only for medical treatment purposes. Phencyclidine Screen method >25 ng/mL Ql (U) Negative NEGATIVE NG/ML [facility] Comment on above: <25 ng/ml CUTOFF Propoxyphene+Norprop oxyphene Screen Ql (U) Negative NEGATIVE NG/ML [facility] Comment on above: <300 ng/ml CUTOFF Tricyclic antidepressants Screen Ql (U) Positive Abnormal NEGATIVE NG/ML [facility] Comment on above: <300 ng/ml CUTOFF *Unconfirmed Screening Result* Unconfirmed screening results are to be used only for medical treatment purposes. [facility] XR PELVIS AP ONLYon 10-10-20 XR [...] no periprosthetic fracture or dislocation identified. Normal [facility] XR Pelvis APon 10-10-2022 IMPRESSION: Left hip [...] arthroplasty, no periprosthetic fracture or dislocation identified. [facility] Radiology Study observation (narrative) [facility] XR Pelvis APOrdered By: Hayden Reno on 10-10-2022 [facility] Work Phone: CBCon 09-15-2022 ABSOLUTE BAS 0.0 10*3/uL Normal 0.0-0.2 [facility] Comment on above: Performed By: #### C MPF, ACBC, PT ####Testing performed at [address] [address] ABSOLUTE EOS 0.1 10*3/uL Normal 0.0-0.7 [facility] Comment on above: Performed By: #### C MPF, ACBC, PT ####Testing performed at [address] [address] ABSOLUTE NEUTROPHIL COUNT 4.3 10*3/uL Normal 1.4-6.5 [facility] Comment on above: Performed By: #### C MPF, ACBC, PT ####Testing performed at [address] [address] Basophils/100 WBC (Bld) 0.6 % Normal 0.0-2.0 [facility] Comment on above: Performed By: #### C MPF, ACBC, PT ####Testing performed at [address] [address] DTYPE AUTO DIFF Normal [facility] Comment on above: Performed By: #### C MPF, ACBC, PT ####Testing performed at [address] [address] Eosinophils/100 WBC (Bld) 2.0 % Normal 0.0-11.0 [facility] Comment on above: Performed By: #### C MPF, ACBC, PT ####Testing performed at [address] [address] Lymphocytes (Bld) [#/Vol] 1.2 10*3/uL Normal 1.2-3.4 [facility] Comment on above: Performed By: #### C MPF, ACBC, PT ####Testing performed at [address] [address] Lymphocytes/100 WBC (Bld) 19.4 % Low 20.0-55.0 [facility] Comment on above: Performed By: #### C MPF, ACBC, PT ####[place] [address] Monocytes (Bld) [#/Vol] 0.5 10*3/uL Normal 0.0-0.7 [facility] Comment on above: Performed By: #### C MPF, ACBC, PT ####Testing performed at [place] [id number] Monocytes/100 WBC (Bld) 8.8 % Normal 0.0-10.0 [facility] Comment on above: Performed By: #### C MPF, ACBC, PT ####Testing performed at [place] [address] Neutrophils/100 WBC (Bld) 69.2 % Normal 37.0-75.0 [facility] Comment on above: Performed By: #### C MPF, ACBC, PT ####[place] [address] Erythrocyte distribution width (RBC) [Ratio] 12.3 % Normal 11.5-14.5 [facility] Comment on above: Performed By: #### C MPF, ACBC, PT ####Testing performed at [place] [id number] Hematocrit (Bld) [Volume fraction] 40.9 % Low 42.0-52.0 [facility] Comment on above: Performed By: #### C MPF, ACBC, PT ####Testing performed at [place] [address] Hemoglobin (Bld) [Mass/Vol] 13.9 g/dL Low 14.0-18.0 [facility] Comment on above: Performed By: #### C MPF, ACBC, PT ####Testing performed at [place] [id number] MCH (RBC) [Entitic mass] 30.6 pg Normal 26.0-35.0 [facility] Comment on above: Performed By: #### C MPF, ACBC, PT ####Testing performed at [address] [address] MCHC (RBC) [Mass/Vol] 34.0 g/dL Normal 27.0-37.0 [facility] Comment on above: Performed By: #### C MPF, ACBC, PT ####Testing performed at [address] [address] MCV (RBC) [Entitic vol] 89.9 fL Normal 80.0-100.0 [facility] Comment on above: Performed By: #### C MPF, ACBC, PT ####Testing performed at [address] [address] Platelet mean volume (Bld) [Entitic vol] 8.8 fL Normal 7.4-11.0 [facility]3] Comment on above: Performed By: #### C MPF, ACBC, PT ####Testing performed at [address] [address] Platelets (Bld) [#/Vol] 200 10*3/uL Normal 130.0-400.0 [facility] Comment on above: Performed By: #### C MPF, ACBC, PT ####Testing performed at [address] [address] RBC (Bld) [#/Vol] 4.55 10*6/uL Normal 4.0-6.1 [facility] Comment on above: Performed By: #### C MPF, ACBC, PT ####Testing performed at [address] [address] WBC (Bld) [#/Vol] 6.2 10*3/uL Normal 3.6-11.0 [facility] Comment on above: Performed By: #### C MPF, ACBC, PT ####Testing performed at [address] [address] CMP FASTINGon 09-15-2022 A:G RATIO 1.8 RATIO Normal 1.3-2.2 [facility] Comment on above: Performed By: #### C MPF, ACBC, PT ####Testing performed at [address] [address] ALBUMIN 4.6 G/dl Normal 3.5-5.0 [facility] Comment on above: Performed By: #### C MPF, ACBC, PT ####Testing performed at [address] [place] [address] ALP [Catalytic activity/Vol] 76 U/L Normal 38-126 [facility] Comment on above: Performed By: #### C MPF, ACBC, PT ####Testing performed at [address] [place] [address] ALT [Catalytic activity/Vol] 31 U/L Normal 17-63 [facility] Comment on above: Performed By: #### C MPF, ACBC, PT ####Testing performed at [address] [address] AST [Catalytic activity/Vol] 22 U/L Normal 15-41 [facility] Comment on above: Performed By: #### C MPF, ACBC, PT ####Testing performed at [address] [address] Bilirubin [Mass/Vol] 1.3 mg/dL High 0.2-1.2 [facility] Comment on above: Performed By: #### C MPF, ACBC, PT ####Testing performed at [address] [address] Calcium [Mass/Vol] 9.9 mg/dL Normal 8.4-10.2 [facility] Comment on above: Performed By: #### C MPF, ACBC, PT ####Testing performed at [address] [address] Chloride [Moles/Vol] 100 mmol/L Normal 98-107 [facility] Comment on above: Performed By: #### C MPF, ACBC, PT ####Testing performed at [address] [address] CO2 [Moles/Vol] 23 mmol/L Normal 22-30 [facility] Comment on above: Performed By: #### C MPF, ACBC, PT ####Testing performed at [address] [address] Creatinine [Mass/Vol] 0.60 mg/dL Low 0.66-1.25 [facility] Comment on above: Performed By: #### C CLAUDIA ALMODOVAR, PT ####Testing performed at [address] [address] EST. GFR, 172 ml/min/1.73sq.m [facility] Comment on above: Performed By: #### C MPF ACBC, PT ####Testing performed at [place] [id number] EST. GFR,Non 142 ml/min/1.73sq.m Normal [facility]3] Comment on above: Performed By: #### C CLAUDIA ALMODOVAR, PT ####[place] [address] GFR Information Average GFR for 60-6 9 years old = 85. Normal [facility] Comment on above: Result Comment: Biomass Facilitator katarzyna Kidney disease, GFR = <60. Kidney failure, GFR = <15. The GFR estimate is not adjusted for extreme body surface area or acute process, nor has it been validated for women or ethnic groups other than and . Performed By: #### C CLAUDIA ALMODOVAR, PT ####Testing performed at [place] [id number] Glucose [Mass/Vol] 127 mg/dL High 70-100 [facility] Comment on above: Result Comment: NORMAL <100 mg/dL PREDIABETES 101-126 mg/dL DIABETES 126 mg/dL or higher Performed By: #### C MPPieter ACBC, PT ####Testing performed at [place] [address] Potassium [Moles/Vol] 4.1 mmol/L Normal 3.5-5.1 [facility] Comment on above: Performed By: #### C MPPieter ACBC, PT ####Testing performed at [address] [address] Protein [Mass/Vol] 7.1 g/dL Normal 6.3-8.2 [facility] Comment on above: Performed By: #### C MPF ACBC, PT ####Testing performed at [address] [address] Sodium [Moles/Vol] 136 mmol/L Normal 136-145 [facility] Comment on above: Performed By: #### C MPF, ACBC, PT ####Testing performed at [address] [address] Urea nitrogen [Mass/Vol] 12 mg/dL Normal 7-20 [facility] Comment on above: Performed By: #### C MPF, ACBC, PT ####Testing performed at [address] [address] HEMOGLOBIN A1Con 09-15-2022 Glucose [Mass/Vol] 105 mg/dL Normal [facility] Comment on above: Performed By: #### H A1CT #### Testing performed at [address] [address] HbA1c (Bld) [Mass fraction] 5.3 % Normal <6 [facility] Comment on above: Result Comment: NORMAL <5.7% PREDIABETES 5.7-6.4% DIABETES 6.5% OR HIGHER Performed By: #### H A1CT #### Testing performed at [address] [address] MRSA SCREENon 09-15-2022 MRSA DNA DALIA+probe Ql (Unsp spec) Not detected Normal NOT DETECTED [facility] Comment on above: Performed By: #### M RSAST #### Testing performed at [address] [address] STAPH AUREUS SCREEN Detected Abnormal NOT DETECTED [facility] Comment on above: Performed By: #### M RSAST #### Testing performed at [address] [address] PROTIMEon 09-15-2022 INR Coag (PPP) [Relative time] 1.08 {INR} Normal 0.85-1.10 [facility] Comment on above: Result Comment: 2.0-3.0 THERAPEUTIC RANGE 2.5-3.5 MECHANICAL VALVE RANGE Performed By: #### C MPF, ACBC, PT ####Testing performed at [address] [address] PT Coag (PPP) [Time] 14.1 s Normal 11.8-14.4 [facility] Comment on above: Performed By: #### C MPF, ACBC, PT ####[place] [address] RAPID TOX SCREEN,URINEon AMPHETAMINE Negative Normal NEGATIVE [facility] Comment on above: Result Comment: <500 ng/ml CUTOFF Performed By: #### R TOX, UMAC ####[place] [address] BARBITURATES Negative Normal NEGATIVE [facility]3] Comment on above: Result Comment: <200 ng/ml CUTOFF Performed By: #### R TOX, UMAC ####[place] [address] BENZODIAZEPINES Negative Normal NEGATIVE [facility] Comment on above: Result Comment: <150 ng/ml CUTOFF Performed By: #### R TOX, UMAC ####[place] [address] BUPRENORPHINE Negative Normal NEGATIVE [facility] Comment on above: Result Comment: <10 ng/ml CUTOFF Performed By: #### R TOX, UMAC ####[place] [address] CANNABINOIDS Positive Abnormal NEGATIVE [facility]3] Comment on above: Result Comment: <50 ng/ml CUTOFF *Unconfirmed Screening Result* Unconfirmed screening results are to be used only for medical treatment purposes. Performed By: #### R TOX, UMAC ####[place] [address] COCAINE Negative Normal NEGATIVE [facility] Comment on above: Result Comment: <150 ng/ml CUTOFF Performed By: #### R TOX, UMAC ####[place] [address] METHADONE Negative Normal NEGATIVE [facility] Comment on above: Result Comment: <200 ng/ml CUTOFF Performed By: #### R TOX, UMAC ####[place] [address] METHAMPHETAMINE Negative Normal NEGATIVE [facility] Comment on above: Result Comment: <500 ng/ml CUTOFF Performed By: #### R TOX, UMAC ####Testing performed at [address] [address] OPIATES Negative Normal NEGATIVE [facility] Comment on above: Result Comment: <100 ng/ml CUTOFF Performed By: #### R TOX, UMAC ####Testing performed at [address] [address] OXYCODONE Positive Abnormal NEGATIVE [facility] Comment on above: Result Comment: <100 ng/ml CUTOFF *Unconfirmed Screening Result* Unconfirmed screening results are to be used only for medical treatment purposes. Performed By: #### R TOX, UMAC ####Testing performed at [address] [address] PHENCYCLIDINE Negative Normal NEGATIVE [facility] Comment on above: Result Comment: <25 ng/ml CUTOFF Performed By: #### R TOX, UMAC ####Testing performed at [address] [address] PROPOXYPHENE Negative Normal NEGATIVE [facility]3] Comment on above: Result Comment: <300 ng/ml CUTOFF Performed By: #### R TOX, UMAC ####Testing performed at [address] [address] TRICYCLIC ANTIDEPRESSANTS Positive Abnormal NEGATIVE [facility] Comment on above: Result Comment: <300 ng/ml CUTOFF *Unconfirmed Screening Result* Unconfirmed screening results are to be used only for medical treatment purposes. Performed By: #### R TOX, UMAC ####Testing performed at [address] [address] TYPE AND SCREEN CROSSMATCH C ONVERTIBLEon 09-15-2022 TYPE AND SCREEN CROSSMATCH CONVERTIBLE WORKUP EXPIRES 10/13/2022,2359 ABO/RH(D) O POSITIVE ANTIBODY SCREEN NEGATIVE ARM BAND NUMBER [id number] Normal [facility] Comment on above: Performed By: #### T SCC #### Testing performed at [address] [address] URINE MACROSCOPICon 09-15-20 22 Bilirubin Ql (U) Negative Normal NEGATIVE [facility] Comment on above: Performed By: #### R TOX, UMAC ####Testing performed at [address] [place] [address] Clarity (U) CLEAR Normal CLEAR [facility] Comment on above: Performed By: #### R TOX, UMAC ####Testing performed at [address] [place] [address] Color (U) YELLOW Normal YELLOW [facility] Comment on above: Performed By: #### R TOX, UMAC ####Testing performed at [address] [place] [address] Glucose Ql (U) Negative Normal NEGATIVE [facility] Comment on above: Performed By: #### R TOX, UMAC ####Testing performed at [address] [place] [address] pH (U) 5.5 [pH] Normal 5.0-7.0 [facility] Comment on above: Performed By: #### R TOX, UMAC ####Testing performed at [address] [place] [address] URINE HEMOGLOBIN Negative Normal NEGATIVE [facility] Comment on above: Performed By: #### R TOX, UMAC ####Testing performed at [address] [place] [address] URINE KETONE Negative Normal NEGATIVE [facility]3] Comment on above: Performed By: #### R TOX, UMAC ####Testing performed at [address] [address] URINE LEUKOTEST Negative Normal NEGATIVE [facility] Comment on above: Performed By: #### R TOX, UMAC ####Testing performed at [address] [place] [address] URINE NITRATES Negative Normal NEGATIVE [facility] Comment on above: Performed By: #### R TOX, UMAC ####Testing performed at [address] [place] [address] URINE SPEC GRAVITY 1.015 Normal 1.010-1.025 [facility] Comment on above: Performed By: #### R TOX, UMAC ####Testing performed at [address] [place] [address] URINE TOTAL PROTEIN Negative Normal NEGATIVE [facility] Comment on above: Performed By: #### R TOX, UMAC ####Testing performed at [address] [address] Urobilinogen Qn (U) 0.2 {Tee'U}/dL Normal 0.2-1.0 [facility] Comment on above: Performed By: #### R TOX, UMAC ####Testing performed at [address] [address] Office Visit (Audiology)on 0 07-15-2022 Follow-up visit [...] with medical management 3. Consider binaural amplification [id number] Adult Risk Screening There are no spiritual/cultural [...] seems to be unchanged. Patient's preferred language: Romanian Preferred language of the parent, legal guardian or surrogate decision-maker of this minor or incapacitated patient: Not Applicable No overt signs of domestic violence/neglect/abuse . No referral made to Prism Inspector. Pain not interfering with optimal level of [...] understanding (100%) at 70 dB HL.. Speech reception clerk threshold (30 dB HL in the right and 30 dB HL in the left) in agreement with pure tone averages. Signatures Electronically signed by : Parag Carver,TUYET-A; Jul 15 2022 1:41PM EST (Author) Normal [employer] XR HIP LT 2 3V W PELVISon [...] by: DAVIN LYNN Date: 2022-06-15 18:35 Normal [facility] Established Visit (Otolaryng ology)on 06-03-2022 Established [...] This note was created using speech recognition superintendent renting managing software/or [employer] superintendent renting managing services. Despite proofreading, several typographical errors might [...] DAILY AT BEDTIME Vitals Vital Signs Recorded: [id number] 10:48AM Gprdmpfwjaw24 F Height5 ft 4.5 in Jrodtv657 lb 8 oz BMI Oirnwjjwon75.69 kg/m2 BSA Calculated1.91 Tobacco Useb) No Falls Screening (Age 18+)b) One or more falls in the last year Pain Scale8/10 'Scores and Scales' Signatures Electronically signed by : Jamie Rojas MD; Jun 03 2022 12:52PM EST (Author) Normal [employer] Order Reconciliationon 05-11 Order Reconciliation Page 1 [...] ONLY 22-Ju (more content not included)... Normal [facility] CORONAVIRUS 2019, SCREEN ASY MPTOMATICon 05-10-2022 SARS-CoV-2 (COVID-19) RNA DALIA+probe Ql (Unsp spec) Not detected Normal Not Detected [facility] Comment on above: Result Comment: . This [...] patient management decisions. Fact sheet for providers: https://www.fda.gov/media/253701/download Fact sheet for patients: https://www.fda.gov/media/893437/download This test has received FDA Emergency Use Authorization (EUA) and has been verified by [facility] ([facility]). This test is only authorized for the duration of time that circumstances exist to justify the authorization of the emergency use of in vitro diagnostic tests for the detection of SARS-CoV-2 virus and/or diagnosis of COVID-19 infection under section 564(b)(1) of the Act, 21 U.S.C. 360bbb-3(b)(1), unless the authorization is terminated or revoked sooner. [facility] is certified under CLIA-88 as qualified to perform high complexity testing. Testing is performed in the [facility] laboratories located at [address] [place] [address]. Performed By: #### C OVSC #### [address] [place] [address] Covid 19 Resultson 2 SARS-CoV-2 (COVID-19) RNA [...] You may also be contacted by the [facility] to see if any of your [...] or Naproxen (Aleve) can also be used. Mlsj-xzo-fkmlimk cough and cold medicines can be used according to the instructions on the package. Some eemk-wbs-kajbprf medicines also contain acetaminophen. Make sure you [...] water are not available, use alcohol-based hand automatic mold sander. Avoid touching your eyes, nose, and mouth [...] 24 maggy (more content not included)... Normal [facility] Patient Profile - Preop v3on 05-10-2022 Patient Profile - Preop v3 Patient Profile - Preop: Initial Info: Patient DemographicsName: SETH BELL Date: 1955 Address: [address] [place] [address] Date/Time [id number] 09:19 Primary Phone [phone] Call Attemptedleft message Instructions Givenanticoagulant meds - patient advised to consult ordering provider, appropriate clothing, bring list of medications, bring responsible adult as the motor driver (procedure may be cancelled if no motor driver), time to arrive, remove jewerly/piercings, insurance information, diabetes meds - patient advised to consult ordering provider, center location How to be AddressedBob Spoken Language PreferredEnglish Source of Informationpatient Stated Reason for Admissionleft ear Primary Contact Name and [phone] Limitations on Visitors/Phone Callsnone Medications Brought to [facility]: Weight in kg86.4 kilogram(s) Weight in mnb462.4 pound(s) Height in feet5 feet Height in [...] Withspouse Living Arrangementshouse Resource/Environmental Concernsnone Anticipated Transition [facility] Anticipated at Transitionnone Tobacco Use: Tobacco Useno Pre-op Checklist: Arrival [id number] Arrival Time09:07 Procedure Typeleft ear surgery NPOyes Last Food [id number] 22:00 Last Clear Fluid [id number] 22:00 ID Band On Patientpatient ID (name) [...] 11-May-2022 09:24 by Makeda Augustine (RICARDO) Normal [facility] CORONAVIRUS 2019, SCREEN ASY MPTOMATICon 05-09-2022 Lab Specimen Source Nasal, Nasopharyngeal Normal [facility] Comment on above: Performed By: #### C OVSC #### [facility] [address] [place] [address] CBC AUTO DIFFon 05-03-2022 BASO # 0.0 103/ul Normal 0.0-0.1 [facility] Comment on above: Performed By: #### C BC #### [facility] [address] [place] [address] [address] Natty Daily Basophils/100 WBC (Bld) 0.2 % Normal 0.2-2.0 [facility] Comment on above: Performed By: #### C BC #### [facility] [address] [place] [address] [address] Natty Daily EO # 0.0 103/ul Normal 0.0-0.7 [facility] Comment on above: Performed By: #### C BC #### [facility] [address] [place] [address] Dr. Natty Daily Eosinophils/100 WBC (Bld) 0.0 % Critically low 0.9-7.0 [facility] Comment on above: Performed By: #### C BC #### [facility] [address] [address] [address] Natty Daily Erythrocyte distribution width (RBC) [Ratio] 12.9 % Normal 11.0-15.0 [facility] Comment on above: Performed By: #### C BC #### [facility] [address] [place] [address] Dr. Natty Daily Hematocrit (Bld) [Volume fraction] 38.6 % Critically low 42.0-54.0 [facility] Comment on above: Performed By: #### C BC #### [facility] [address] [address] [address] Natty Daily Hemoglobin (Bld) [Mass/Vol] 13.1 g/dL Critically low 14.0-18.0 [facility] Comment on above: Performed By: #### C BC #### [facility] [address] [place] [address] Dr. Natty Daily IG # 0.09 10e3/ul Critically high 0.00-0.[address] [facility] Comment on above: Performed By: #### C BC #### [facility] [address] [place] [address] Dr. Natty Daily IG % 1.1 % Critically high 0.0-0.[address] [facility] Comment on above: Performed By: #### C BC #### [facility] [address] [place] [address] Dr. Natty Daily LYMPH # 1.3 103/ul Normal 1.2-3.8 [facility] Comment on above: Performed By: #### C BC #### [facility] [address] [place] [address] Dr. Natty Daily Lymphocytes/100 WBC (Bld) 15.8 % Critically low 20.5-60.0 [facility] Comment on above: Performed By: #### C BC #### [facility] [address] [place] [address] Dr. Natty Daily MANUAL DIFF REQ NO Normal [facility] Comment on above: Performed By: #### C BC #### [facility] [address] [place] [address] Dr. Natty Daily MCH (RBC) [Entitic mass] 30.9 pg Normal 25.9-34.0 [facility] Comment on above: Performed By: #### C BC #### [facility] [address] [place] [address] Dr. Natty Daily MCHC (RBC) [Mass/Vol] 33.9 g/dL Normal 29.9-35.2 [facility] Comment on above: Performed By: #### C BC #### [facility] [address] [place] [address] Dr. Natty Daily MCV (RBC) [Entitic vol] 91.0 fL Normal 80.0-94.0 [facility] Comment on above: Performed By: #### C BC #### [facility] [address] [place] [address] Dr. Natty Daily MONO # 0.7 103/ul Normal 0.3-0.8 [facility] Comment on above: Performed By: #### C BC #### [facility] [address] [place] [address] Dr. Natty Daily Monocytes/100 WBC (Bld) 8.3 % Normal 1.7-12.0 [facility] Comment on above: Performed By: #### C BC #### [facility] [address] [place] [address] Dr. Natty Daily NEUT # 6.1 103/ul Normal 1.4-6.5 [facility] Comment on above: Performed By: #### C BC #### [facility] [address] [place] [address] Dr. Natty Daily Neutrophils/100 WBC (Bld) 74.6 % Normal 43.0-75.0 [facility] Comment on above: Performed By: #### C BC #### [facility] [address] [place] [address] Dr. Natty Daily Platelet mean volume (Bld) [Entitic vol] 9.5 fL Normal 9.5-13.5 [facility] Comment on above: Performed By: #### C BC #### [facility] [address] [place] [address] Dr. Natty Daily PLT 231 103/ul Normal 150-450 [facility] Comment on above: Performed By: #### C BC #### [facility] [address] [place] [address] Dr. Natty Daily RBC 4.24 106/ul Critically low 4.70-6.10 The [facility] Comment on above: Performed By: #### C BC #### [facility] [address] [place] [address] Dr. Natty Daily WBC 8.1 103/ul Normal 4.0-11.0 [facility] Comment on above: Performed By: #### C BC #### [facility] [address] [place], [place] [id number] Dr. Natty Daily PROF 14(COMP METB)on 022 Albumin [Mass/Vol] 3.9 g/dL Normal 3.4-5.0 [facility] Comment on above: Performed By: #### C MP #### [facility] [address] [place] [address] Dr. Natty Daily Albumin/Globulin [Mass ratio] 1.2 {ratio} Normal [facility] Comment on above: Performed By: #### C MP #### [facility] [address] [place] [address] Dr. Natty aDily ALP [Catalytic activity/Vol] 58 U/L Normal 46-116 [facility] Comment on above: Performed By: #### C MP #### [facility] [address] [address] [address] Natty Daily ALT [Catalytic activity/Vol] 78 U/L Critically high 16-63 [facility] Comment on above: Performed By: #### C MP #### [facility] [address] [place] [address] Dr. Natty Daily Anion gap [Moles/Vol] 14.3 mmol/L Normal [facility] Comment on above: Performed By: #### C MP #### [facility] [address] [place] [address] Dr. Natty Daily AST [Catalytic activity/Vol] 39 U/L Critically high 15-37 [facility] Comment on above: Performed By: #### C MP #### [facility] [address] [place] [address] Dr. Natty Daily Bilirubin [Mass/Vol] 0.8 mg/dL Normal 0.2-1.0 [facility] Comment on above: Performed By: #### C MP #### [facility] [address] [place] [address] Dr. Natty Daily Calcium [Mass/Vol] 9.0 mg/dL Normal 8.5-10.1 [facility] Comment on above: Performed By: #### C MP #### [facility] [address] [place] [address] Dr. Natty Daily Chloride [Moles/Vol] 104 mmol/L Normal 98-107 [facility] Comment on above: Performed By: #### C MP #### [facility] [address] [place] [address] Dr. Natty Daily CO2 [Moles/Vol] 24.8 mmol/L Normal 21.0-32.0 [facility] Comment on above: Performed By: #### C MP #### [facility] [address] [address] [address] Natty Daily Creatinine [Mass/Vol] 0.77 mg/dL Normal 0.70-1.30 [facility] Comment on above: Performed By: #### C MP #### [facility] [address] [address] [address] Natty Daily EGFR-AF MAURITANIAN >60 Normal >=60 [facility] Comment on above: Performed By: #### C MP #### [facility] [address] [address] [address] Natty Daily EGFR-NON AF MAURITANIAN >60 Normal >=60 [facility] Comment on above: Performed By: #### C MP #### [facility] [address] [place] [address] Dr. Natty Daily Globulin (S) [Mass/Vol] 3.2 g/dL Normal [facility] Comment on above: Performed By: #### C MP #### [facility] [address] [address] [address] Natty Daily Glucose [Mass/Vol] 131 mg/dL Critically high 74-106 [facility] Comment on above: Performed By: #### C MP #### [facility] [address] [place] [address] Dr. Natty Daily Potassium [Moles/Vol] 4.1 mmol/L Normal 3.5-5.1 [facility] Comment on above: Performed By: #### C MP #### [facility] [address] [place] [address] Dr. Natty Daily Protein [Mass/Vol] 7.1 g/dL Normal 6.4-8.2 [facility] Comment on above: Performed By: #### C MP #### [facility] [address] [address] [address] Natty Daily Sodium [Moles/Vol] 139 mmol/L Normal 136-145 [facility] Comment on above: Performed By: #### C MP #### [facility] [address] [place] [address] Dr. Natty Daily Urea nitrogen [Mass/Vol] 22.0 mg/dL Critically high 7.0-18.0 [facility] Comment on above: Performed By: #### C MP #### [facility] [address] [place] [address] Dr. Natty Daily Urea nitrogen/Creatinine [Mass ratio] 28.6 mg/mg Normal [facility] Comment on above: Performed By: #### C MP #### [facility] [address] [place] [address] Dr. Natty Daily PROTIMEon 05-03-2022 INR Coag (PPP) [Relative time] 1.06 {INR} Normal [facility] Comment on above: Performed By: #### P T, PTT #### [facility] [address] [place] [address] Dr. Natty Daily INR GUIDELINES SEE BELOW Normal [facility] Comment on above: Result Comment: REEMA RED INR: 2.0 - 3.0 CONDITIONS NOT LISTED BELOW 2.5 - 3.5 FOR PROSTHETIC HEART VALVE REPLACEMENT 2.5 - 3.5 RECURRENT THROMBOSIS Performed By: #### P T, PTT #### [facility] [address] [place] [address] Dr. Natty Daily PT Coag (PPP) [Time] 11.4 s Normal 9.0-11.6 [facility] Comment on above: Performed By: #### P T, PTT #### [facility] [address] [place] [address] Dr. Natty Daily PTTon 05-03-2022 aPTT Coag (Bld) [Time] 25.6 s Normal 22.3-36.2 [facility] Comment on above: Performed By: #### P T, PTT #### [facility] [address] [place] [address] Dr. Natty Daily Tobacco Screening.on 022 Fall risk assessment a) No falls within the last year [facility] Work Phone: Tobacco use status [facility] b) No MG-Otolaryngol [facility] Work Phone: Blood Urea Nitrogenon 2020 Urea nitrogen [Mass/Vol] 21 mg/dL Normal 9- [facility] Comment on above: Performed By: #### C REAT, BUN #### [facility] [address] [place] [address] [place] Creatinineon 10-19-2021 Creatinine [Mass/Vol] 0.92 mg/dL Normal 0.64-1.27 [facility] Comment on above: Performed By: #### C REAT, BUN #### [place] [address] [place] Creatinine Clr Calc Pharmacy 86.54 [facility] Comment on above: Result Comment: PERF ORMED BY: [place] [address] PATHOLOGIST WASTEWATER TREATMENT ENGINEER JAVID GRACIA M.D. Performed By: #### C REAT, BUN #### [address] Estimated GFR ( Jaida > 60 [facility] Comment on above: Result Comment: GFR estimated reference range: According to KDOQI guidelines, <60 ml/min/1.73m2 is sufficient to diagnose a patient with chronic kidney disease. Performed By: #### C REAT, BUN #### [address] Estimated GFR (Non- Am > 60 Normal [facility] Comment on above: Performed By: #### C REAT, BUN #### [address] MR prostate wo/w conon 10-19 MR prostate wo/w con [facility] Main [place] [address] [place] [address] MRI Report Signed Patient: Seth Bell MR#: [id number] : 1955 Acct:[id number] Age/Sex: 65 / M ADM Date: 10/19/21 Loc: MR Room: Type: [facility] Attending Dr: Ailyn Dunn MD Ordering Provider: [...] PM COT by: Asa Kline MD Diplomate, [place] [employer] Report Completed: Oct 19, [...] STAFF 10/19/21 1510 Signed By: 10/19/21 1522 [facility] Vital Signs Date Time Vital Sign Value Performing Clinician Facility 06-27-2024 13:12-0400 Blood Pressure Location Bonifacio NILL [facility] [place] 06-27-2024 13:12-0400 Diastolic blood pressure 74 mm[Hg] Bonifacio NILL [facility] 06-27-2024 13:12-0400 Heart rate 45 /min Bonifacio NILL [facility] 06-27-2024 13:12-0400 Respiratory rate 16 /min Bonifacio NILL [facility] 06-27-2024 13:12-0400 Systolic blood pressure 134 mm[Hg] Bonifacio NILL [facility] 04-23-2024 08:22-0400 Diastolic blood pressure 71 mm[Hg] Bonifacio NILL [facility] 04-23-2024 08:22-0400 Heart rate 50 /min Bonifacio NILL [facility] [place] 04-23-2024 08:22-0400 Respiratory rate 16 /min Bonifacio FONSECAL [facility] 04-23-2024 08:22-0400 Systolic blood pressure 130 mm[Hg] Bonifacio NILL [facility] 01-01-2024 12:00-0500 Blood Pressure Location Ailyn DUNN [facility] 01-01-2024 12:00-0500 Diastolic blood pressure 86 mm[Hg] Ailyn DUNN [facility] 01-01-2024 12:00-0500 Heart rate 70 /min Ailyn DUNN [facility] 01-01-2024 12:00-0500 Respiratory rate 16 /min Ailyn DUNN [facility] 01-01-2024 12:00-0500 Systolic blood pressure 122 mm[Hg] Ailyn DUNN [facility] 10-03-2023 10:00-0500 Body height 165.1 cm Stevan Galdamez Other [facility] [employer] Other 10-03-2023 10:00-0500 Body mass index (BMI) [Ratio] 32.71 kg/m2 Stevan Ball Other [employer] [facility] [employer] Other 10-03-2023 10:00-0500 Body weight 89.18 kg Stevan Ball Other [employer] [facility] [employer] Other 10-03-2023 10:00-0500 Diastolic blood pressure 81 mm[Hg] Stevan Galdamez Other [employer] Other 10-03-2023 10:00-0500 Respiratory rate 12 /min Stevan Ball Other [employer] Other 10-03-2023 10:00-0500 Systolic blood pressure 131 mm[Hg] Stevan Ball Other [employer] Other 06-08-2023 09:45-0400 Body height 165.1 cm Stevan Ball Other [employer] Other 06-08-2023 09:45-0400 Body mass index (BMI) [Ratio] 32.15 kg/m2 Stevan Ball Other [employer] Other 06-08-2023 09:45-0400 Body weight 87.64 kg Stevan Ball Other [employer] Other 06-08-2023 09:45-0400 Diastolic blood pressure 66 mm[Hg] Stevan Ball Other [employer] Other 06-08-2023 09:45-0400 Respiratory rate 12 /min Stevan Ball Other [employer] Other 06-08-2023 09:45-0400 Systolic blood pressure 99 mm[Hg] Stevan Ball Other [employer] Other 06-01-2023 11:38-0400 Body height 165.1 cm Mone Sirenas [employer] Work Phone: [employer] 06-01-2023 11:38-0400 Body mass index (BMI) [Ratio] 32.78 kg/m2 Mone Trigemina CAMP COUNSELOR-DRUG SAFETY ASSISTANT Work Phone: [employer] 06-01-2023 11:38-0400 Body temperature 97.39 [degF] Mone Watson APRN-DRUG SAFETY ASSISTANT Work Phone: [employer] 06-01-2023 11:38-0400 Body weight 89.36 kg Mone Watson APRN-DRUG SAFETY ASSISTANT Work Phone: [employer] 05-29-2023 14:15-0400 Body height 165.1 cm Stevan Ball Other [employer] Other 05-29-2023 14:15-0400 Body mass index (BMI) [Ratio] 32.58 kg/m2 Stevan Ball Other [employer] Other 05-29-2023 14:15-0400 Body weight 88.81 kg Stevan Ball Other [employer] Other 05-29-2023 14:15-0400 Diastolic blood pressure 79 mm[Hg] Stevan Ball Other [employer] Other 05-29-2023 14:15-0400 Respiratory rate 12 /min Stevan Ball Other [employer] Other 05-29-2023 14:15-0400 Systolic blood pressure 124 mm[Hg] Stevan Ball Other [employer] Other 05-09-2023 15:49-0400 Body temperature 98.6 [degF] Lazarus Coronado MD Work Phone: [employer] 05-09-2023 15:49-0400 Diastolic blood pressure 68 mm[Hg] Lazarus Coronado MD Work Phone: [employer] 05-09-2023 15:49-0400 Heart rate 71 /min Lazarus Coronado MD Work Phone: [employer] 05-09-2023 15:49-0400 Respiratory rate 16 /min Lazarus Coronado MD Work Phone: [employer] 05-09-2023 15:49-0400 SaO2% (BldA) [Mass fraction] 94 % Lazarus Coronado MD Work Phone: [facility] [employer] 05-09-2023 15:49-0400 Systolic blood pressure 138 mm[Hg] Lazarus Coronado MD Work Phone: [facility] [employer] [facility] 05-08-2023 07:10-0400 Body height 172.7 cm Lazarus Coronado MD Work Phone: [facility] [employer] [facility] 05-08-2023 07:10-0400 Body mass index (BMI) [Ratio] 29.63 kg/m2 Lazarus Coronado MD Work Phone: [employer] [facility] [employer] 05-08-2023 07:10-0400 Body weight 88.41 kg Lazarus Coronado MD Work Phone: [employer] [facility] [employer] 04-14-2023 10:00-0400 Body height 165.1 cm Stevan Ball Other [employer] Other 04-14-2023 10:00-0400 Body mass index (BMI) [Ratio] 33.24 kg/m2 Stevan Ball Other [employer] Other 04-14-2023 10:00-0400 Body weight 90.63 kg Stevan Ball Other [employer] Other 04-14-2023 10:00-0400 Diastolic blood pressure 93 mm[Hg] Stevan Ball Other [employer] Other 04-14-2023 10:00-0400 Respiratory rate 12 /min Stevan Ball Other [employer] Other 04-14-2023 10:00-0400 Systolic blood pressure 145 mm[Hg] Stevan Ball Other [employer] Other 03-23-2023 10:11-0400 Body height 170.2 cm Lazarus Coronado MD Work Phone: [facility] 03-23-2023 10:11-0400 Body mass index (BMI) [Ratio] 30.98 kg/m2 Lazarus Coronado MD Work Phone: [facility] 03-23-2023 10:11-0400 Body temperature 97.39 [degF] Lazarus Coronado MD Work Phone: [facility] 03-23-2023 10:11-0400 Body weight 89.72 kg Lazarus Coronado MD Work Phone: [facility] 12-05-2022 09:23-0500 Blood Pressure Location Ailyn DUNN [facility] 12-05-2022 09:23-0500 Diastolic blood pressure 88 mm[Hg] Ailyn DUNN [facility] 12-05-2022 09:23-0500 Heart rate 76 /min Ailyn DUNN [facility] 12-05-2022 09:23-0500 Respiratory rate 16 /min Ailyn DUNN [facility] 12-05-2022 09:23-0500 Systolic blood pressure 130 mm[Hg] Ailyn DUNN [facility] 10-11-2022 11:21-0500 Body temperature 98.4 [degF] Lazarus Coronado MD Work Phone: [facility] 10-11-2022 11:21-0500 Diastolic blood pressure 63 mm[Hg] Lazarus Coronado MD Work Phone: [facility] 10-11-2022 11:21-0500 Heart rate 61 /min Lazarus Coronado MD Work Phone: [facility] 10-11-2022 11:21-0500 Respiratory rate 16 /min Lazarus Coronado MD Work Phone: [facility] [employer] [facility] 10-11-2022 11:21-0500 SaO2% (BldA) [Mass fraction] 96 % Lazarus Coronado MD Work Phone: [facility] 10-11-2022 11:21-0500 Systolic blood pressure 106 mm[Hg] Lazarus Coronado MD Work Phone: [facility] 10-10-2022 13:00-0500 Body height 165.1 cm Lazarus Coronado MD Work Phone: [facility] 10-10-2022 13:00-0500 Body mass index (BMI) [Ratio] 30.79 kg/m2 Lazarus Coronado MD Work Phone: [facility] 10-10-2022 13:00-0500 Body weight 83.92 kg Lazarus Coronado MD Work Phone: [facility] [employer] [facility] 08-03-2022 14:13-0400 Body height 165.1 cm Lazarus Coronado MD Work Phone: [facility] 08-03-2022 14:13-0400 Body mass index (BMI) [Ratio] 30.65 kg/m2 Lazarus Coronado MD Work Phone: [facility] 08-03-2022 14:13-0400 Body temperature 97 [degF] Lazarus Coronado MD Work Phone: [facility] [employer] [facility] 08-03-2022 14:13-0400 Body weight 83.55 kg Lazarus Coronado MD Work Phone: [facility] [employer] [facility] 03-17-2022 15:18-0400 Body height 170.18 cm Stevan Galdamez Work Phone: [facility] [place] Work Phone: 03-17-2022 15:18-0400 Body mass index (BMI) [Ratio] 32.26 kg/m2 Stevan Galdamez Work Phone: HE[facility]Kujxjbpkojzzbs[facility] [place] Work Phone: 03-17-2022 15:18-0400 Body surface area Derived from formula 2.05 m2 Stevan Galdamez Work Phone: HT-Qmrjgzywenemec-[facility] [place] Work Phone: 03-17-2022 15:18-0400 Body temperature 98.4 [degF] Stevan Galdamez Work Phone: PO-Szxulyepivsubp-Ee [place] Work Phone: 03-17-2022 15:18-0400 Body weight 93.44 kg Stevan Galdamez Work Phone: WV-Lycqlcukjebcwh-Jv [place] Work Phone: 03-17-2022 15:18-0400 0 1 Stevan Galdamez Work Phone: SS-Kfvkrjuywsmkdm-Yx [place] Work Phone: Comment on above: [employer] Encounters Encounter Date Encounter Type Care Provider Facility Start: 12-20-2024 ambulatory Ailyn Wetzeli ty:[facility] Start: 06-27-2024 ambulatory STEVAN GALDAMEZ Facility: [facility] Start: 06-27-2024 End: 06-27-2024 Patient encounter procedure Bonifacio GRAVES [facility] [place] Start: 05-29-2024 End: 05-29-2024 ambulatory Bonifacio GRAVES Facility:[id number] Start: 04-23-2024 End: 04-23-2024 ambulatory Bonifacio FONSECAL Facility:[facility] Start: 04-23-2024 End: 04-23-2024 Patient encounter procedure Bonifacio FONSECAL [facility] [place] Start: 04-09-2024 ambulatory Ailyn DUNN Facility :[facility] Start: 03-20-2024 End: 03-20-2024 ambulatory JOAQUIM [facility] Start: 01-01-2024 End: 01-01-2024 ambulatory Ailyn DUNN Facility:[facility] Start: 01-01-2024 End: 01-01-2024 Patient encounter procedure Ailyn Dee SHAUN [facility] Start: 11-27-2023 End: 11-27-2023 ambulatory Stevan Ball Other [employer] Other Start: 11-27-2023 Office outpatient vi sit 15 minutes Stevan Ball [facility] Start: 11-27-2023 Telephone encounter Stevan Ball [facility] Start: 10-03-2023 End: 10-03-2023 ambulatory Stevan Ball Other [employer] Other Start: 10-03-2023 Office outpatient vi sit 25 minutes Stevan Ball [facility] Start: 09-21-2023 End: 09-21-2023 ambulatory Stevan Ball Other [employer] Other Start: 09-21-2023 Telephone encounter Stevan Ball [facility] Start: 09-04-2023 End: 09-04-2023 ambulatory Stevan Ball Other [employer] Other Start: 09-04-2023 Telephone encounter Stevan Ball [facility] Start: 09-01-2023 End: 09-01-2023 ambulatory Stevan Ball Other [employer] Other Start: 09-01-2023 Telephone encounter Stevan Ball [facility] Start: 08-28-2023 End: 08-28-2023 ambulatory Stevan Ball Other [employer] Other Start: 08-28-2023 Telephone encounter Stevan Ball [facility] Start: 08-17-2023 End: 08-17-2023 ambulatory Stevan Ball Other [employer] Other Start: 08-17-2023 Telephone encounter Stevan Ball [facility] Start: 08-10-2023 End: 08-10-2023 ambulatory Stevan Ball Other [employer] Other Start: 08-10-2023 Telephone encounter Stevan Ball [facility] Start: 08-08-2023 End: 08-08-2023 ambulatory Stevan Ball Other [employer] Other Start: 08-08-2023 Telephone encounter Stevan Ball [facility] Start: 07-12-2023 End: 07-12-2023 ambulatory Stevan Ball Other [employer] Other Start: 07-12-2023 Telephone encounter Stevan Ball [facility] Start: 07-07-2023 End: 07-07-2023 ambulatory Stevan Ball Other [employer] Other Start: 07-07-2023 Telephone encounter Stevan Ball [facility] Start: 06-13-2023 End: 06-13-2023 ambulatory Stevan Ball Other [employer] Other Start: 06-13-2023 Telephone encounter Stevan Ball [facility] Start: 06-08-2023 End: 06-08-2023 ambulatory Stevan Ball Other [employer] Other Start: 06-08-2023 Office outpatient vi sit 25 minutes Stevan Ball [facility] Start: 06-05-2023 End: 06-05-2023 ambulatory Stevan Ball Other [employer] Other Start: 06-05-2023 Telephone encounter Stevan Ball [facility] Start: 06-03-2023 End: 06-04-2023 ambulatory MD ALAN HENLEY Facility:[facility] Start: 06-02-2023 End: 06-02-2023 ambulatory Stevan Ball Other [employer] Other Start: 06-02-2023 Telephone encounter Stevan DALLAS [facility] Start: 06-01-2023 Telephone encounter Stevan DALLAS [facility] Start: 06-01-2023 End: 06-01-2023 ambulatory STEVAN GALDAMEZ [employer] Other Start: 06-01-2023 End: 06-01-2023 Postop follow up visit related to original px Moen Watson CAMP COUNSELOR-DRUG SAFETY ASSISTANT Work Phone: [facility] Comment on above: Hx of total knee art hroplasty, right (Primary Dx) Start: 05-29-2023 End: 05-29-2023 ambulatory Stevan Galdamez Other [employer] Other Start: 05-29-2023 Office outpatient vi sit 15 minutes Stevan Galdamez [facility] Start: 05-09-2023 End: 05-09-2023 ambulatory Stevan Galdamez Other [employer] Other Start: 05-09-2023 Telephone encounter Stevan DALLAS [facility] Start: 05-08-2023 End: 05-09-2023 ambulatory [facility] Start: 05-08-2023 End: 05-09-2023 Subsequent hospital visit by physician Lazarus Coronado MD Work Phone: [facility] Comment on above: Osteoarthritis of ri ght knee Start: 04-14-2023 End: 04-14-2023 ambulatory Stevan Galdamez Other [employer] Other Start: 04-14-2023 Encounter for other preprocedural examination Stevan Galdamez [facility] Start: 04-14-2023 Office outpatient vi sit 25 minutes Stevan Ball [facility] Start: 04-13-2023 ambulatory [facility] Start: 04-13-2023 Encounter for other preprocedural examination [facility] Start: 04-11-2023 End: 04-11-2023 ambulatory Stevan Galdamez Other [employer] Other Start: 04-11-2023 Telephone encounter Stevan Galdamez [facility] Start: 03-24-2023 End: 03-25-[address] STEVAN GALDAMEZ Facility:[facility] Start: 03-23-2023 ambulatory [facility] Start: 03-23-2023 ambulatory [facility] Start: 03-23-2023 End: 03-23-2023 Subsequent hospital visit by physician Mone Watson CAMP COUNSELOR-DRUG SAFETY ASSISTANT Work Phone: [facility] Start: 03-23-2023 End: 03-23-2023 Office outpatient visit 40 minutes Lazarus Coronado MD Work Phone: [facility] Comment on above: Hx of total hip arth roplasty, left (Primary Dx); Right knee pain, unspecified chronicity Start: 03-23-2023 End: 03-23-2023 Subsequent hospital visit by physician Lazarus Coronado MD Work Phone: [facility] Start: 02-23-[address] STEVAN GALDAMEZ Facili ty:[facility] Start: 12-05-2022 End: 12-05-2022 Patient encounter procedure Ailyn DUNN [facility] Start: 12-03-2022 End: 12-04-2022 ambulatory AILYN DUNN Facility:[facility] Start: 11-03-2022 ambulatory STEVAN GALDAMEZ [facility] Start: 11-03-2022 End: 11-03-2022 Subsequent hospital visit by physician Mone Watson CAMP COUNSELOR-DRUG SAFETY ASSISTANT Work Phone: [facility] Start: 10-27-2022 End: 10-28-[address] ANETA DUNN . Facility:[facility] Start: 10-10-2022 End: 10-11-2022 ambulatory [facility] Start: 10-10-2022 End: 10-11-2022 Encounter for preprocedural laboratory examination [facility] Start: 10-10-2022 End: 10-11-2022 Patient encounter status Lazarus Coronado MD Work Phone: [facility] Start: 10-10-2022 End: 10-11-2022 Subsequent hospital visit by physician Lazarus Coronado MD Work Phone: [facility] S[facility] Comment on above: Primary osteoarthrit is of left hip Start: 09-27-2022 Pre-procedure evalua tion luiz Galdamez Other [employer] Other Start: 09-15-2022 ambulatory [facility] Start: 08-03-2022 ambulatory [facility] Start: 08-03-2022 ambulatory [facility] Start: 08-03-2022 End: 08-03-2022 Office outpatient new 60 minutes Lazarus Coronado MD Work Phone: [facility] Comment on above: Left hip pain (Prima ry Dx) Start: 08-03-2022 End: 08-03-2022 Subsequent hospital visit by physician Lazarus Coronado MD Work Phone: [facility] Start: 07-23-2022 Adult health examination Milan Galdamez Other [employer] Other Start: 07-21-2022 End: 07-22-[address] STEVAN GALDAMEZ Facility:H1 Start: 06-15-2022 End: 06-16-[address] STEVAN GALDAMEZ Facility:[facility]1 Start: 05-05-2022 Encounter for preprocedural cardiovascular examination DR DOCTOR GILL [facility] Start: 05-05-2022 Encounter for preprocedural laboratory examination DR DOCTOR GILL [facility] Start: 05-04-2022 End: 05-21-[address] STEVAN GALDAMEZ Facility:[facility]1 Start: 05-03-2022 End: 05-04-[address] DOCTOR GILL Facility:[facility]1 Start: 05-03-2022 End: 05-04-2022 Encounter for preprocedural cardiovascular examination DR DOCTOR GILL Facility:[facility]1 Start: 03-17-2022 Office outpatient ne w 45 minutes Stevan Galdamez Work Phone: [facility] Work Phone: Evaluation finding Stevan [facility] Work Phone: [facility] Work Phone: Procedures Date Procedure Procedure Detail Performing Clinician Start: 05-29-2024 Colonoscopy Bonifacio GRAVES Start: 05-09-2023 Basic metabolic panel calcium total Shahzad Whiting MD Work Phone: Start: 05-09-2023 Complete blood count with white cell differential, automated Mone Watson CAMP COUNSELOR-DRUG SAFETY ASSISTANT Work Phone: Start: 05-08-2023 Radiologic examination knee 1/2 views Mone Watson CAMP COUNSELOR-DRUG SAFETY ASSISTANT Work Phone: Start: 05-08-2023 End: 05-08-2023 Arthrp kne condyle&platu medial&lat compartments Lazarus Coronado MD Work Phone: Start: 05-08-2023 Cultyp nuc acid amp prb cult/isolate ea orgnism Shahzad Whiting MD Work Phone: Start: 04-20-2023 Arthroplasty of knee Ailyn DUNN Start: 12-03-[address] STEVAN GALDAMEZ Comment on above: Performed By: #### PSAD #### [facility] [address] [place] [address] Dr. Natty Daily Start: 10-11-2022 Basic metabolic panel calcium total Shahzad Whiting MD Work Phone: Start: 10-11-2022 Complete blood count with white cell differential, automated Mone Watson CAMP COUNSELOR-DRUG SAFETY ASSISTANT Work Phone: Start: 10-10-2022 Radiologic examination pelvis 1/2 views Mone Watson CAMP COUNSELOR-DRUG SAFETY ASSISTANT Work Phone: Start: 10-10-2022 End: 10-10-2022 Arthrp acetblr/prox fem prostc agrft/algrft Lazarus Coronado MD Work Phone: Start: 10-10-2022 Drug test prsmv read direct optical obs pr date Fabian Masters DO Work Phone: Start: 10-10-2022 Blood group typing, RH phenotyping Lazarus Coronado MD Work Phone: Start: 10-10-2022 Sars-cov-2 detection by dna/rna Mone montoya CAMP COUNSELOR-DRUG SAFETY ASSISTANT Work Phone: Start: 11-20-2021 Repair of hip [...] procedure 05/08/2024 9:00 AM EDT Office Visit [facility] [address] [place] [id number] Mone Watson APRN-CABRERA [address] [place] [phone] [facility] Start: 07-21-2023 Influenza vaccination A [facility] Start: 06-01-2023 End: 06-01-2023 Patient encounter procedure 06/01/2023 11:40 AM EDT Office Visit [facility] [address] [place] [id number] Mone Watson APRN-CABRERA [address] [place] [phone] [facility] Start: 04-13-2023 End: 04-13-2023 ambulatory 04/13/2023 Pre-Operative Nurse Assessment Internal Medicine [facility] Start: 03-08-2023 End: 03-08-2023 Patient encounter procedure 03/08/2023 Office Visit Orthopaedics Lazarus Corondao MD [address] [place] [id number] [facility] Start: 11-03-2022 End: 11-03-2022 Patient encounter procedure 11/03/2022 Office Visit Orthopaedics Mone Watson APRN-DRUG SAFETY ASSISTANT [address] [place] [id number] [facility] Start: 09-15-2022 End: 09-15-2022 ambulatory 09/15/2022 Pre-Operative Nurse Assessment Internal Medicine [facility] Start: 08-03-2022 End: 08-03-2023 XR Pelvis 2 Views [facility] Work Phone: Comment on above: 1 Occurrences starti ng 08/03/2022 until 08/03/2022 Expected: 08/03/2022 , Expires: 08/03/2023 Start: 07-21-2022 Influenza vaccination INFLUENZA VACC INE (#1) [facility] Start: 06-03-2022 POV, Provider: Jamie Rojas, Status: Pen, Time: 9:45 AM POV, Provider: Jamie Rojas, Status: Pen, Time: 9:45 AM HX-Qrzvpnjsqodpcg-Fmd angela Work Phone: Start: 05-12-2021 COVID-19 VACCINE (3 - Booster for Pfizer series) COVID-19 VACCINE (3 - Booster for Pfizer series) [facility] Start: 05-12-2021 COVID-19 VACCINE (3 - Pfizer series) COVID-19 VACCINE (3 - Pfizer series) [facility] Start: 07-09-2020 Pneumococcal vaccination PNEUMOCOCCAL VACCINE SERIES (2 - PPSV23 if available, else PCV20) [facility] Start: 2018 Abdominal aortic aneurysm screening ABDOMINAL AORTIC ANEURYSM HIGH RISK SCREEN [facility] Start: 2018 Pneumococcal vaccination PNEUMOCOCCAL VACCINE SERIES (1 - PCV) [facility] Start: 2003 Prostate specific antigen measurement PROSTATE CANCER SCREENING DISCUSSION [facility] Start: 2003 Zoster vaccine hzv live for subcutaneous use ZOSTER (SHINGLES) VACCINE (1 of 2) [facility] Start: 1998 Colonoscopy COLORECTAL CAN CER SCREENING DISCUSSION [facility] Start: 1998 Screening for malignant neoplasm of colon COLORECTAL CANCER SCREENING DISCUSSION [facility] Start: 1993 Fasting lipid profile LIPID SCREENIN G [facility] Start: 1993 Lipid panel LIPID SCREENING [facility] Start: 1972 Third diphtheria, tetanus and acellular pertussis (DTaP) vaccination TDAP (ADULT) [facility] Start: 1971 Tetanus vaccination TETANUS [facility] Start: 04-20-1956 COVID-19 VACCINE (#1) COVID-19 VACCI NE (#1) [facility] Start: 1953 Hepatitis C antibody , confirmatory test HEPATITIS C VIRUS SCREENING [facility] Start: 1953 Hepatitis C screening HEPATITI S C VIRUS SCREENING [facility] Start: 1955 Tetanus vaccination TETANUS [facility] Radiography for bone length studies XR BONE LENGTH STUDY Imaging Routine Right knee pain, unspecified chronicity 03/23/2023 11:04 AM EDT Nub[facility] Work Phone: End: 10-10-2022 RF Unspecified body region Views during surgery [facility] [employer] Comment on above: One Time for 1 Occur rences starting 10/10/2022 until 10/10/2022 SURGICAL PATHOLOGY REQUEST SURGICAL PATHOLOGY REQUEST Surg Path Routine Primary osteoarthritis of left hip Release Upon Ordering for 1 Occurrences starting 10/10/2022 [facility] Comment on above: Release Upon Orderin g for 1 Occurrences starting 10/10/2022 SURGICAL PATHOLOGY REQUEST SURGICAL PATHOLOGY REQUEST Surg Path Routine Primary osteoarthritis of right knee Release Upon Ordering for 1 Occurrences starting 05/08/2023 [facility] [employer] [facility] Comment on above: Release Upon Orderin g for 1 Occurrences starting 05/08/2023 XR Knee - right 3 Views XR KNEE RIGHT 3 VIEWS Imaging Routine Hx of total knee arthroplasty, right 06/01/2023 11:26 AM EDT [employer] XR Knee - right 4 Views [facility] [employer] Work Phone: Comment on above: Ordered: 03/23/2023 XR Pelvis and Hip - left Views XR HIP WITH PELVIS LEFT Imaging Routine Left hip pain 08/03/2022 2:08 PM EDT [employer] Work Phone: XR Pelvis and Hip - left Views XR HIP WITH PELVIS LEFT Imaging Routine Hx of total hip arthroplasty, left 11/03/2022 10:44 AM [facility] XR Pelvis and Hip - left Views XR HIP WITH PELVIS LEFT Imaging Routine Hx of total hip arthroplasty, left Ordered: 03/07/2023 [facility] [employer] Comment on above: Ordered: 03/07/2023 Immunizations Immunization Date Immunization Notes Care Provider Tiffanie daugherty 10-03-2023 influenza, high dose seasonal, preservative-free Stevan Galdamez Other [employer] Other 09-27-2022 influenza, high dose seasonal, preservative-free Stevan Galdamez Other [employer] Other 09-27-2022 influenza virus vaccine, split virus (incl. purified surface antigen) Stevan Galdamez Other [employer] Other 08-20-2021 influenza virus vaccine, split virus (incl. purified surface antigen) Stevan Galdamez Other [employer] Other 03-17-2021 SARS-CoV-2 (COVID-19 ) mRNA BNT-162b2 [employer] Ailyn [facility] 02-24-2021 SARS-CoV-2 (COVID-19 ) mRNA BNT-162b2 [email or web address] [facility] 11-20-2020 SARS-CoV-2 (COVID-19 ) mRNA BNT-162b2 [employer] Ailyn [facility] Comment on above: Result Comment: pt i s fully vaccinated but does not have his card with him 08-19-2020 influenza virus vaccine, split virus (incl. purified surface antigen) Stevan Galdamez Other [employer] Other 10-29-2019 tetanus and diphther ia toxoids, adsorbed, preservative free, for adult use (5 Lf of tetanus toxoid and 2 Lf of diphtheria toxoid) Stevan Galdamez Other [employer] Other 07-09-2019 pneumococcal conjuga te vaccine, 13 valent Stevan Galdamez Other [employer] Other 07-09-2019 pneumococcal Conjuga te, unspecified formulation; 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: [Need for prophylactic vaccination against Streptococcus pneumoniae (pneumococcus)] Stevan Galdamez Other [employer] Other Payers Date Payer Category Payer Private Health Insurance 2022 Medicare [id number] 2021 Private Health Insurance [facility] 2021 Unknown 1959 Medicare [id number] 1959 Private Health Insurance [facility] 1953 Unknown [id number] 2.16.84 0.1.205880.3.579.2.593 1953 Unknown [id number] 2.16.84 0.1.149208.3.579.2.593 1953 Unknown [id number] 2.16.84 0.1.303182.3.579.2.593 1953 Unknown [id number] 2.16.84 0.1.866197.3.579.2.593 1953 Unknown [id number] 2.16.84 0.1.802511.3.579.2.593 1953 Unknown [id number] 2.16.84 0.1.530615.3.579.2.593 1953 Unknown [id number] 2.16.84 0.1.731182.3.579.2.593 1953 Unknown [id number] 2.16.84 0.1.088042.3.579.2.593 1953 Unknown [id number] 2.16.8 40.1.806469.3.579.2.159 1953 Unknown [id number] 2.16.8 40.1.254073.3.579.2.983 1953 Unknown [id number] 2.16.8 40.1.674371.3.579.2.983 1953 Unknown [id number] 2.16.8 40.1.831037.3.579.2.983 1953 Unknown [id number] 2.16.8 40.1.144667.3.579.2.983 1953 Unknown [id number] 2.16.8 40.1.020567.3.579.2.983 1953 Unknown [id number] 2.16.8 40.1.121917.3.579.2.983 1953 Unknown [id number] 2.16.8 40.1.566936.3.579.2.983 1953 Unknown [id number] 2.16.8 40.1.365895.3.579.2.983 1953 Unknown [id number] 2.16.8 40.1.258094.3.579.2.983 1953 Unknown [id number] 2.16.8 40.1.670792.3.579.2.983 1953 Unknown [id number] 2.16.8 40.1.224860.3.579.2.983 1953 Unknown [id number] 2.16.8 40.1.286537.3.579.2.983 1953 Unknown [id number] 2.16.8 40.1.031412.3.579.2.983 1953 Unknown [id number] 2.16.8 40.1.520468.3.579.2.983 1953 Unknown [id number] 2.16.8 40.1.810082.3.579.2.727 1953 Unknown [id number] 2.16.8 40.1.168971.3.579.2.727 1953 Unknown [id number] 2.16.8 40.1.851702.3.579.2.727 1953 Unknown [id number] 2.16.8 40.1.669910.3.579.2.727 1953 Unknown [id number] 2.16.8 40.1.474589.3.579.2.727 Social History Date Type Detail Facility Start: 05-09-2023 End: 06-01-2023 Former smoker Former smoker [facility] Work Phone: Start: 08-03-2022 End: 06-27-2024 Tobacco smoking status NHIS Ex-smoker [facility] End: 11-20-1988 History of tobacco use Cigarette Smoker [facility] Start: 08-03-2022 End: 06-01-2023 Alcohol intake Current drinker of alcohol (finding) [facility] Start: 08-03-2022 History SDOH Alcohol Comment daily [facility] Start: 1955 Sex Assigned At Not on file A [facility] End: 11-20-1988 History of tobacco use Current smoker [facility] Start: 09-13-2022 End: 04-04-2023 Tobacco use and exposure Smokeless tobacco non-user [facility] Start: 09-30-2022 End: 05-08-2023 Exposure to SARS-CoV-2 (event) Not sure [facility] Tobacco smoking status Never [facility] Start: 05-09-2023 End: 06-01-2023 Sex Assigned At Male [facility] Start: 04-04-2023 Alcohol Comment hard cider daily [facility] Medical Equipment Procedure Code Equipment Code Equipment Origin al Text Equipment Identifier Dates Bi Mentum Liner [id number] Start: 10-10-2022 22 gauge needle, See Instructions, 12 EA, 1, Use 2 needles per month, one to draw up and one for injection, [id number], Supply, 179, cm, 06/05/20 11:23:00 EDT, Height/Length Measured, 88, kg, 06/05/20 11:23:00 EDT, Weight Measured Start: 06-19-2020 Insert - Knee - [id number] Start: 05-08-2023 22 gauge needle, See [...] Assessment Result Facility 06-27-2024 Functional Status N/A [facility] [place] 04-23-2024 Functional Status N/A [facility] [place] 01-01-2024 Functional Status N/A [facility] 12-05-2022 Functional Status N/A [facility] Clinical Notes 03-17-2022 to 04-23-2024 Note [...] mg Cap, 0.4 (more content not included)... [facility] Comment on above: Result Comment: Elec tronically Signed By: ELY SHEETS, Bonifacio Duarte\Date and Time Signed: 04/23/24 09:05 EDT 03-20-2024 Note Patient here for 1 y ear follow up CAD, hypertension, and hyperlipidemia. Denies chest pain, SOB, palpitations, and lightheadedness/syncope. He was admitted in May 2023 for upper GI bleed. Doing very well since then. [facility] 03-20-2024 Note [place] Cardiology Note HPI Chief Complaint: Seth Bell [...] discussed target range. Coronary artery disease involving [place] coronary artery of [place]ot heart without angina pectoris Patient adamantly denies [...] -Follow-up in cardiology clinic Joaquim Chaudhary MD [place] Interventional Cardiology [facility] 01-01-2024 Hospital Discharge instructions Patient Education [...] treatment? Where to find more information [employer] [place] [employer]: www.cancer.org [place] [employer]: www.auanet.org Contact a health care [...] provider. Document Revised: 05/02/2022 Document Reviewed: 05/02/2022 [email or web address] Patient Education 2022 [employer]. Follow Up Care 12/05/2022 10:43:19 With:SHAUN SHEETS, Ailyn Dee, URL Address: [facility] [address] , [place] [address]- [phone] When:Within 1 Year(s) Comments:w/ PSA [facility] 11-27-2023 Evaluation note Encounter Date Diagnosis [...] I25.10) Increases risk for more severe infection [facility] Other 01-08-2024 Evaluation note* Encounter Date Diagnosis Assessment Notes Treatment Notes Treatment Clinical Notes Nov, COVID-19 (ICD-10 - U07.1) [facility] Other 11-14-2023 Evaluation note* Encounter Date Diagnosis [...] normal. Active lifestyle, looking forward to hunting. [employer] Other 11-02-2023 Evaluation note* Encounter Date Diagnosis Assessment Notes Treatment Notes Treatment Clinical Notes Sep, Acute blood loss anemia (ICD-10 - D62) [facility] Other 09-28-2023 Evaluation note* Encounter Date Diagnosis Assessment Notes Treatment Notes Treatment Clinical Notes Jul, ASHD (arteriosclerot ic heart disease) (ICD-10 - I25.10) Jul, Pure hypercholestero lemia (ICD-10 - E78.00) [facility] Other 09-21-2023 Evaluation note* Encounter Date Diagnosis Assessment Notes Treatment Notes Treatment Clinical Notes Jul, Primary hypertension (ICD-10 - I10) [facility] Other 07-20-2023 Evaluation note* Encounter Date Diagnosis [...] bleed, resume after holding for 2 wks [facility] Other 07-17-2023 Evaluation note* Encounter Date Diagnosis Assessment Notes Treatment Notes Treatment Clinical Notes May, Acute blood loss anemia (ICD-10 - D62) [facility] Other 07-14-2023 Evaluation note* Encounter Date Diagnosis Assessment Notes Treatment Notes Treatment Clinical Notes May, Nausea (ICD-10 - R11.0) [facility] Other 07-13-2023 Evaluation note* Encounter Date Diagnosis Assessment Notes Treatment Notes Treatment Clinical Notes May, Bilateral carotid bruits (ICD-10 - R09.89) [facility] Other 07-13-2023 History of Present illness Narrative* Kayley Lisa LPN - 06/01/2023 11:40 AM EDT Ortho Nurse - Established Patient Intake Room#: 5 Date: 06/01/2023 11:43 AM Patient: Seth Bell MR#: [id number] : 1955 Age: 67 y.o. 3 wks [...] Laterality: Right; Surgeon: Lazarus Coronado MD; Location: [facility] OR ARTHROPLASTY HIP TOTAL ANTERIOR APPROACH Left 10/10/2022 Laterality: Left; Surgeon: Lazarus Coronado MD; Location: [facility] OR BACK SURGERY 2016 x2 NECK [...] by Nasal route once for 1 dose. Tye into the nose as directed. Call 911. [...] by Nasal route once for 1 dose. Tye into the nose as directed. Call 911. [...] has No Known Allergies. * Mone Watson APRN-DRUG SAFETY ASSISTANT - 06/01/2023 11:40 AM EDT HPI: Seth [...] understanding. All pertinent portions of the clinical business support assistant documentation was reviewed and agree. PRINCE Yo Ortho Nurse - Established Patient Intake Room#: 5 Date: 06/01/2023 11:43 AM Patient: Seth Bell MR#: [id number] : 1955 Age: 67 y.o. 3 wks [...] Laterality: Right; Surgeon: Lazarus Coronado MD; Location: [facility] OR ARTHROPLASTY HIP TOTAL ANTERIOR APPROACH Left 10/10/2022 Laterality: Left; Surgeon: Lazarus Coronado MD; Location: [facility] OR BACK SURGERY 2016 x2 NECK [...] by Nasal route once for 1 dose. Tye into the nose as directed. Call 911. [...] by Nasal route once for 1 dose. Tye into the nose as directed. Call 911. [...] has No Known Allergies. documented in this [facility]06-20-2023 Miscellaneous Notes* Nursing Notes - Keira Qiu RN - 05/09/2023 3:41 PM EDT Discharge instructions and education reviewed with pt and his daughter, education provided for dx and new medications, printed education given, denies any questions. Hemovac care reviewed. HOLLY hose, ABDs, and ice packs provided. Meds to beds with integrity seal intact provided. * Nursing Notes - Keira iQu RN - 05/09/2023 11:57 AM EDT Assessment [...] by Keira GUTIERREZ, unable to scan in [facility] due to connectivity issues. * Op Note - Lazarus Coronado MD - 05/09/2023 8:25 AM EDT DATE OF PROCEDURE: May 08, 2023 ATTENDING PHYSICIAN: Lazarus Coronado M.D. OPTICS MANUFACTURING TECHNICIAN: Mone Watson CNP PREOPERATIVE DIAGNOSIS: Severe right [...] space was opened up with the lamina grad intern, and the medial and lateral menisci were [...] of motion and anatomic tracking at the pen[place]sc[place] patella. Thus, the patella itself was flipped [...] procedure) without the assistance of a skilled certified surgical technologist. A certified surgical technologist was medically necessary for positioning, retraction and [...] OPERATIVE/PROCEDURE NOTE Seth Bell 67 y.o. male [id number] SURGEON Surgeon(s) and Role: * Lazarus Coronado MD - Primary OPTICS MANUFACTURING TECHNICIAN PRINCE Yo ANESTHESIOLOGIST LEAD GAME DESIGNER: MRERY Steele; MERRY Hutchinson SURGICAL STAFF Bilingual Inside Sales Representative: Shelley Brown RN; Debi Wiggins RN Nurse Practitioner: PRINCE Yo Scrub Person: Sarita Lizama RN Materials Research Engineer: Mahesh Armstrong LPN PROCEDURE PERFORMED Procedure(s) [...] Implant Name Type Inv. Item Serial No. Resolution Manager Lot No. LRB No. Used Action PALACOS R 1 X 40 US - [id number] PALACOS R 1 X 40 US [id number] Right 2 Implanted PATELLA - KNEE - [id number] PATELLA - KNEE [id number] Right 1 Implanted FEMUR - KNEE - [id number] FEMUR - KNEE [id number] Right 1 Implanted Attune Knee System Tibial Base Fixed Bearing DEPUY [id number] Right 1 Implanted INSERT - KNEE - [id number] INSERT - KNEE [id number] Right 1 Implanted SPECIMENS ID Type Source Tests Collected by Time Destination 1 : Bone RIght Knee Permanent TISSUE SURGICAL PATHOLOGY REQUEST Lazarus Coronado MD 05/08/2023 0914 Mone Watson, CAMP COUNSELOR-DRUG SAFETY ASSISTANT May 08, 2023 10:20 AM [facility]* Nursing Notes - Keira Qiu RN - 05/09/2023 3:41 PM EDT Discharge instructions and education reviewed with pt and his daughter, education provided for dx and new medications, printed education given, denies any questions. Hemovac care reviewed. HOLLY hose, ABDs, and ice packs provided. Meds to beds with integrity seal intact provided. [facility]06-20-2023 History of Present illness Narrative* Asa Malik, PACKAGE DESIGNER - 05/09/2023 12:08 PM EDT 05/09/23 1037 [...] Supine to Sit, Rehab Eval Level of [place]: Supine/Sit supervision Transfer Skill: Sit To Stand, Rehab Eval [place] (Sit-Stand Transfers) contact guard Physical Assist/Nonphysical Assist: Sit/Stand 1 person assist Weight-Bearing Restrictions: Sit/Stand weight-bearing as tolerated Assistive Device For Transfer: Sit/Stand 2 wheeled walker Gait Skills, PT Eval Level of [place]: Gait contact guard Physical Assist/Nonphysical Assist: Gait 1 person assist Weight-Bearing Restrictions: Gait weight-bearing as tolerated Assistive Device For Transfer: Gait 2 wheeled walker Gait Distance (125ft x2) Gait Analysis, PT Eval Gait Pattern Used swing-through gait Gait Deviations Identified (Gait) decreased win;decreased gait speed;decreased step length;decreased stride length Impairments Contributing To Gait Deviations impaired balance;pain;decreased ROM;decreased strength Stair Negotiation [place] Level: Stair Negotiation contact guard assist Physical [...] Patient to go to outpatient therapy at [facility] tomorrow at 4:30 pm. Patient informed of post-op follow up call tomorrow. Patient verbalizes understanding, he states that he has been very happy with his care and is complementary of the staff. He denies any other needs at this time. * Mone Watson APRN-DRUG SAFETY ASSISTANT - 05/09/2023 7:21 AM EDT Total Joint [...] hospital: SEE SS NOTES * Shereen Nichole, UNIVERSITY RELATIONS VICE PRESIDENT - 05/08/2023 2:34 PM EDT Patient instructed [...] Equipment Available straight cane;wheeled walker;shower chair;elevated toilet seat;sock-aid;motion and time study teacher;long-handled shoe horn;dressing stick;long handle sponge Cognitive Status [...] Supine to Sit, Rehab Eval Level of [place]: Supine/Sit stand-by assist Physical Assist/Nonphysical Assist: Supine/Sit 1 person assist Transfer Skill: Sit to Stand, Rehab Eval Level of [place]: Sit/Stand contact guard Physical Assist/Nonphysical Assist: Sit/Stand 1 person assist Weight-Bearing Restrictions: Sit/Stand weight-bearing as tolerated Assistive Device for Transfer: Sit/Stand wheeled walker Upper Body Dressing Level of [place] independent Physical Assist/Nonphysical Assist set-up required Lower Body Dressing Level of [place] maximum assist (25% patients effort) Physical Assist/Nonphysical Assist 1 person assist Toileting Level of [place] contact guard Physical Assist/Nonphysical Assist 1 person assist Grooming [place] Level (Grooming) wash face, hands;contact guard assist [...] as needed Therapist Information License # [id number] 1. Pt will complete LB dressing MOD [...] Supine to Sit, Rehab Eval Level of [place]: Supine/Sit stand-by assist Physical Assist/Nonphysical Assist: Supine/Sit 1 person assist;verbal cues Transfer Skill: Sit To Stand, Rehab Eval [place] (Sit-Stand Transfers) contact guard Physical Assist/Nonphysical Assist: Sit/Stand 1 person assist;verbal cues Weight-Bearing Restrictions: Sit/Stand weight-bearing as tolerated Assistive Device For Transfer: Sit/Stand 2 wheeled walker Gait Skills, PT Eval Level of [place]: Gait contact guard Physical Assist/Nonphysical Assist: Gait [...] strength;impaired motor control;impaired postural control Stair Negotiation [place] Level: Stair Negotiation not tested Sensory Examination [...] PT to follow Therapist Information License # [id number] * Brittani Honeycutt RN - 05/08/2023 12:01 PM EDT Patient was assessed in [place] on 04/13/23. Met with patient, spouse and daughter for follow up after surgery to discuss discharge plan. Patient plans to return home with spouse and would to like go to outpatient therapy at [facility]. Patient has a wheeled walker and denies any equipmentneeds at this time. Nursing reports that the incision has been closed with dermabond with hemovac in place, will request a 3 week follow up appointment. Patient denies any other questions or needs atthis time. Referral information faxed to [facility] OP Therapy, appointment scheduled for 05/10/23 @ [...] (184 lb) 10/10/22 83.9 kg (185 lb) [place] body weight: 68.4 kg (150 lb 12.7 [...] Laterality: Left; Surgeon: Lazarus Coronado MD; Location: [facility] OR BACK SURGERY 2016 x2 NECK [...] afternoon appointment d/t transportation issues on Monday. [facility] Rehab contacted and appointment time changed. Will fax updated information to OP rehab after patient has had surgery. Will continue to follow up with patient and family for discharge needs. * Jazmyne Cardona LPN - 04/13/2023 11:54 AM EDT 04/13/23 1152 Referral Information Arrived From home or self-care Information Source Information Source patient Contact Information Er Rn Name Brittani Honeycutt RN Case Manager's Living [...] with spouse and have OP therapy at [facility], phone number is [phone], patient prefers late morning appointment. Patient has a FW wheeled walker, in addition to raised toilet seat, railing and shower chair. Patient denies any other questions or needs at thistime. CM to continue to follow and assist with discharge plans. [facility]* Nursing Notes - Keira Qiu RN - 05/09/2023 11:57 AM EDT Assessment is complete and remains unchanged from previous at this time with any exceptions noted in the flowsheet. Patient denies further needs and is left with call light and personals in reach. [facility]06-20-2023 Nurse Note* Nursing Notes - Lily Gill RN - 05/09/2023 11:42 AM EDT Patient is admitted to Med Surg floor [facility]06-20-2023 Nurse Note* Nursing Notes - Galilea Rodrigues [...] Medhat to be discharged home later today. [facility]* Nursing Notes - Diamond Alves RN - 05/09/2023 8:31 AM EDT Oxycodone 10 mg verified by this RN and administered to patient by Keira GUTIERREZ, unable to scan in [facility] due to connectivity issues. [facility] Surgery Postoperative evaluation and management note* Op Note - Lazarus Coronado MD - 05/09/2023 8:25 AM EDT DATE OF PROCEDURE: May 08, 2023 ATTENDING PHYSICIAN: Lazarus Coronado M.D. OPTICS MANUFACTURING TECHNICIAN: Mone Watson CNP PREOPERATIVE DIAGNOSIS: Severe right [...] I referenced this against the flexion gap, Austin's line, and the epicondylar axis as well. I then used an anterior referencing stylus and sized it to a size 7. At this point then, the 4:1 cutting block was pinned into place, and all four cuts were performed. The flexion space was opened up with the lamina grad intern, and the medial and lateral menisci were [...] of motion and anatomic tracking at the [place] patella. Thus, the patella itself was flipped [...] procedure) without the assistance of a skilled certified surgical technologist. A certified surgical technologist was medically necessary for positioning, retraction and instrume ntation. [employer] Work Phone: 1(351) 429-584906-20-2023 Hospital course Narrative* Shahzad Whiting MD - [...] by Nasal route once for 1 dose. Tye into the nose as directed. Call 911. [...] per tablet Commonly known as: PERCOCET Follow-up: [facility] OP Therapy ext: [phone] Follow up on 05/10/2023 Outpatient therapy appointment scheduled for Monday at 4:30 pm, please arrive at 4:15 pm for theregistration process. Bring insurance cards and photo ID. Upcoming Appointments (up to five)-Some appointments for Medical Center outpatient clinics or diagnostic testing locations are not displayed below Provider Department Dept Phone 06/01/2023 11:40 AM [facility] [phone] documented in this [facility]06-20-2023 Nurse Note* Nursing Notes - Denise Treviño [...] Call light and bedside table within reach. [facility] [employer]06-19-2023 Nurse Note* Nursing Notes - Denise Treviño [...] Call light and bedside table within reach. [facility] Nubli [id number] Consult note* Shahzad Whiting MD - 05/08/2023 [...] Laterality: Left; Surgeon: Lazarus Coronado MD; Location: [facility] [place] OR BACK SURGERY 2016 x2 NECK [...] minutes total time. Shahzad Whiting MD 05/08/2023 [facility]06-19-2023 Consult note* Shahzad Whiting MD - 05/08/2023 [...] Laterality: Left; Surgeon: Lazarus Coronado MD; Location: [facility] OR BACK SURGERY 2015 x2 NECK [...] Shahzad Whiting MD 05/08/2023 [facility]* Nursing Notes - Keira Qiu RN - 05/08/2023 3:00 PM EDT Assessment is complete and remains unchanged from previous at this time with any exceptions noted in the flowsheet. Patient denies further needs and is left with call light and personals in reach. [facility] Note* Nursing Notes - Keira [...] light and personals inreach, family at bedside. [facility] Note* Chyna Atkins RN - 05/08/2023 10:50 AM EDT Patient discharged from PACU. Patient transported via bed to room 3752. Bed in lowest position calllight within reach. No other complaints at this time. Report given to Keira GUTIERREZ. * Debi Wiggins RN - 05/08/2023 9:11 AM EDT OR 4 Temp: 66.0' Hum: 42.0% documented in [facility] Nurse Surgical operation note* Chyna Atkins RN - 05/08/2023 10:50 AM EDT Patient discharged from PACU. Patient transported via bed to room 3752. Bed in lowest position calllight within reach. No other complaints at this time. Report given to Keira GUTIERREZ. [facility] Discharge instructions* Discharge Instructions* Keira [...] - 05/08/2023 10:46 AM EDT Contact Office ([phone]) if: > Total Knee ROM < 90 [...] also empty the drain anytime it is mcfp full. Follow these steps to empty your [...] Home Care, please call Dr. Coronado's nurse ([phone]) the morning after discharge with the recorded [...] be sent through Care Everywhere. * celecoxib (Romanian) * docusate (oral/rectal) (Romanian) * oxycodone (Romanian) documented in [facility]06[facility] Surgery Postoperative evaluation and management note* Brief Op Note - PRINCE Yo - 05/08/2023 10:19 AM EDT POST OPERATIVE/PROCEDURE NOTE Seth Bell 67 y.o. male [id number] SURGEON Surgeon(s) and Role: * Lazarus Coronado MD - Primary OPTICS MANUFACTURING TECHNICIAN PRINCE Yo ANESTHESIOLOGIST LEAD GAME DESIGNER: MEAGAN SteeleLEAD GAME DESIGNER; MERRY Hutchinson SURGICAL STAFF Bilingual Inside Sales Representative: Shelley Brown RN; Debi Wiggins RN Nurse Practitioner: PRINCE Yo Scrub Person: Sarita Lizama RN Materials Research Engineer: Mahesh Armstrong LPN PROCEDURE PERFORMED Procedure(s) [...] Implant Name Type Inv. Item Serial No. Resolution Manager Lot No. LRB No. Used Action PALACOS R 1 X 40 US - [id number] PALACOS R 1 X 40 US [id number] Right 2 Implanted PATELLA - KNEE - [id number] PATELLA - KNEE [id number] Right 1 Implanted FEMUR - KNEE - [id number] FEMUR - KNEE [id number] Right 1 Implanted Attune Knee System Tibial Base Fixed Bearing DEPUY [id number] Right 1 Implanted INSERT - KNEE - [id number] INSERT - KNEE [id number] Right 1 Implanted SPECIMENS ID Type Source Tests Collected by Time Destination 1 : Bone RIght Knee Permanent TISSUE SURGICAL PATHOLOGY REQUEST Lazarus Coronado MD 05/08/2023 0914 PRINCE Yo May 08, 2023 10:20 AM [facility] Surgical operation note* Debi Wiggins RN - 05/08/2023 9:11 AM EDT OR 4 Temp: 66.0' Hum: 42.0% [facility] Evaluation note* Encounter Date Diagnosis Assessment Notes Treatment Notes Treatment Clinical Notes March, Pre-operative examin [facility] [place] for internal medicine (ICD-10 - Z01.818) Reviewed [...] knee (ICD-10 - M17.11) Scheduled for [facility]KA [employer] Other 05-04-2023 History of Present illness Narrative* Sneha Busby LPN - 03/23/2023 10:00 AM EDT Ortho Nurse - Established Patient Intake Room#: 2--Visit today is a 4 month post-op check of Left MIKE (D/A)--10-10-22. His pain today is a 6. Has complaints of stiffness. Date: 03/23/2023 10:20 AM Patient: Seth Bell MR#: [id number] : 1955 Age: 67 y.o. 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 Patient is also here today for [...] joint space, subchondral sclerosis, osteophyte formation, and kfsb-nt-nqmu contact. AP hip and pelvis films demonstrate [...] of limb, and ultimately loss of life. intermediate teacher expectations, risks and general implant survivorship were also discussed. Despite these risks, the patient would like to proceed with surgical planning. Today, we will initiate the pre- surgical process including nasal MRSA screening, scheduling an appointment for [facility] [place] and the potential surgical date, and reviewing [...] 03/23/2023 10:20 AM Patient: Seth Bell MR#: [id number] : 1955 Age: 67 y.o. Referring Physician: [...] Laterality: Left; Surgeon: Lazarus Coronado MD; Location: [facility] [place] [place] OR BACK SURGERY 2015 x2 NECK [...] has No Known Allergies. documented in [facility] Hospital Discharge instructions Patient Education 12/05/2022 [...] urethra. Follow these instructions at home: Take xyve-oag-wdnscuc and prescription medicines only as told by [...] 11/06/2006 Document Revised: 10/01/2019 Document Reviewed: 12/11/2017 [email or web address] Patient Education [employer]. Follow Up Care 12/03/2021 10:50:50 With:SHAUN SHEETS, Ailyn Dee, URL Address: [facility] [address] , [place] [address]- When: Unknown [facility] 12-08-2022 NoteCONSULTATION CONSULTATION DATE: 10/27/2022 HISTORY OF PRESENT ILLNESS: This is a 67-year-old gentleman returning to the clinic for a three month follow up for his chronic lower back pain and hip pain. Since his last visit in July, the patient had a left total hip replacement and is overall doing wonderful. It was completed at [facility] in [place] by Dr. Coronado. The patient is recovering [...] in three months' time unless otherwise indicated.[facility] [id number] Miscellaneous Notes* Nursing Notes - Keira Qiu [...] PROCEDURE: 10/10/2022 ATTENDING PHYSICIAN: Lazarus Coronado M.D. OPTICS MANUFACTURING TECHNICIAN: Mone Watson CNP. PREOPERATIVE DIAGNOSES: 1. Severe [...] INDICATIONS: Seth is an established patient of [facility]. She is a very pleasant, 66-year-old female [...] induced. The patient was repositioned on the [place] table for anterior hip surgery. The operative [...] and then secured its position with the [place] table lift. With adequate exposure of the [...] procedure) without the assistance of a skilled certified surgical technologist. A certified surgical technologist was medically necessary for positioning, retraction and [...] 10/10/2022 1:00 PM EST Report received from DENTAL INSURANCE BILLER. Patient hooked up to tele and vitals at this time. Call light within reach and bed in low position. * Brief Op Note - PRINCE Yo - 10/10/2022 11:42 AM EST POST OPERATIVE/PROCEDURE NOTE Seth Bell 66 y.o. male [id number] SURGEON Surgeon(s) and Role: * Lazarus Coronado MD - Primary OPTICS MANUFACTURING TECHNICIAN PRINCE Yo ANESTHESIOLOGIST LEAD GAME DESIGNER: Gino Rashid APRN-LENARD SURGICAL STAFF Bilingual Inside Sales Representative: Imelda Gilbert RN; Lisa Bueno RN Nurse Practitioner: PRINCE Yo Hydrometer Calibrator: Don Snider; Refugio De Leon PROCEDURE PERFORMED [...] Implant Name Type Inv. Item Serial No. Resolution Manager Lot No. LRB No. Used Action bi mentum press fit cup [id number] Left 1 Implanted femoral stem sz 6 DEPUY [id number] Left 1 Implanted femoral head 28mm DEPUY [id number] Left 1 Implanted bi mentum liner DEPUY [id number] Left 1 Implanted SPECIMENS ID Type Source Tests Collected by Time Destination 1 : left femoral head Permanent TISSUE SURGICAL PATHOLOGY REQUEST Lazarus Coronado MD 10/10/2022 1045 Mone Watson APRN-DRUG SAFETY ASSISTANT October 10, 2022 11:42 AM * Nursing Notes - Brittani Honeycutt RN - 09/15/2022 10:07 AM EDT 09/15/22 1004 Information Source Information Source patient ;child Contact Information Er Rn Name Brittani Honeycutt RN Case Manager's Living [...] assist with discharge plans. documented in [facility]11-[facility]22 Note* Nursing Notes - Keira Qiu RN - 10/11/2022 1:22 PM EST Patient is discharging home with belongings at this time. [facility]11-22-2022 Note* Nursing Notes - Lily Gill [...] foradditional questions Staff Provider office contact: NA [facility]11-22-2022 Note* Nursing Notes - Ly Lynn RN - 10/11/2022 12:39 PM EST Discharge instructions and education reviewed with pt, education provided for dx and new medications, printed education given, denies any questions, IV removed. Extra ABDs, ice packs and holly hose given to patient. Meds to bed with integrity seal intact given to patient also. [facility]11-22-2022 History of Present illness Narrative* Oriana Menendez [facility] - 10/11/2022 12:14 PM EST AOP [...] LE in reclincer: QS,GS,SAQ,AP, heel slide, LAQ r21wqtd ea. Pt trans sit to stand Patricia [...] 08/03/22 83.6 kg (184 lb 3.2 oz) [place] body weight: 61.5 kg (135 lb 9.3 [...] Registered Dietitian, Licensed Dietitian 10/11/22 * Mone WatsonSUKH-DRUG SAFETY ASSISTANT - 10/11/2022 6:52 AM EST Total Joint [...] 0 Equipment Available wheeled walker;shower chair;elevated toilet seat;sock-aid;motion and time study teacher;long-handled shoe horn;long handle sponge Cognitive Status Examination Orientation Status (Cognition) oriented x 4 Level of Consciousness alert Able to Follow Commands (Communication) WNL Personal Safety and Judgment intact Sensory Examination Sensory Examination WFL Range of Motion (ROM) Range of Motion Examination bilateral upper extremity ROM was WFL Manual Muscle Testing (MMT) Dominant Hand right Transfer Skill: Sit to Stand, Rehab Eval Level of [place]: Sit/Stand contact guard Physical Assist/Nonphysical Assist: Sit/Stand 1 person assist Weight-Bearing Restrictions: Sit/Stand weight-bearing as tolerated Assistive Device for Transfer: Sit/Stand wheeled walker Upper Body Dressing Level of [place] independent Physical Assist/Nonphysical Assist set-up required Lower Body Dressing Level of [place] moderate assist (50% patients effort) Physical Assist/Nonphysical [...] for this session. Pt educated on utilizing motion and time study teacher and sock aid for LB dressing techniques Continue care plan yes Goals Goals For Discharge Pt will return home Discussed risk / benefits with patient;patient's family Therapist Recommendations At Discharge Recommendations OT Services not recommended at Discharge Plan Plan for next session continue with bathing, dressing, bathroom transfers and hygiene training Therapist Information License # [id number] 1. Pt will complete LB dressing MOD [...] Supine to Sit, Rehab Eval Level of [place]: Supine/Sit stand-by assist Physical Assist/Nonphysical Assist: Supine/Sit 1 person assist Transfer Skill: Sit To Stand, Rehab Eval [place] (Sit-Stand Transfers) contact guard Physical Assist/Nonphysical Assist: Sit/Stand 1 person assist Weight-Bearing Restrictions: Sit/Stand weight-bearing as tolerated Assistive Device For Transfer: Sit/Stand 2 wheeled walker Gait Skills, PT Eval Level of [place]: Gait contact guard Physical Assist/Nonphysical Assist: Gait [...] on acute pain regimen. documented in this [facility]11-[facility]22 Note* Nursing Notes - Ly Lynn RN - 10/11/2022 10:52 AM EST Assessment is complete and remains unchanged from previous at this time with any exceptions noted in the flowsheet. Patient denies further needs and is left with call light and personals in reach. Will continue to monitor. [facility] Hospital course Narrative* Shahzad Whiting MD [...] Use Authorization (EUA) for the qualitative detection ciVTLK-IsD-8 nucleic acid. XR FLUORO < 1 HOUR [...] Dept Phone 11/03/2022 10:40 AM Mone Watson [facility] [phone] documented in this [facility]11-22-2022 Note* Op Note - Lazarus Coronado MD - 10/11/2022 7:33 AM EST DATE OF PROCEDURE: 10/10/2022 ATTENDING PHYSICIAN: Lazarus Coronado M.D. OPTICS MANUFACTURING TECHNICIAN: Mone Watson CNP. PREOPERATIVE DIAGNOSES: 1. Severe [...] INDICATIONS: Seth is an established patient of [facility]. She is a very pleasant, 66-year-old female [...] induced. The patient was repositioned on the [place] table for anterior hip surgery. The operative [...] and then secured its position with the [place] table lift. With adequate exposure of the [...] procedure) without the assistance of a skilled certified surgical technologist. A certified surgical technologist was medically necessary for positioning, retraction and instrum entation. [employer] Work Phone: 1(137) 440-437611-22-2022 Note* Nursing Notes - Felecia Carrera RN - 10/11/2022 2:58 AM EST Pt assessment remains unchanged. Pt c/o 8-9 pain to L. Hip. Pt states pain is stinging. Dilaudid given- see MAR. Pt ambulated to BR to void at this time. Ice pack changed and applied to L. Hip. Denies any further needs at this time. Call light within reach. [employer]11-22-2022 Note* Nursing Notes - Felecia Carrera RN - 10/11/2022 12:31 AM EST Pt assessment remains unchanged. Pt c/o 5/10 pain to L. Hip. Medication given - see JAN. Fresh ice pack applied to L. Hip. Denies any further needs at this time. Call light within reach. [facility]11-21-2022 Note* Nursing Notes - Felecia Carrera RN - 10/10/2022 8:29 PM EST Pt assessment complete. POC reviewed with pt. Pt states pain to L.hip is 5/10. Medication given- see JAN. Ice pack applied to L. Hip. Denies any further needs at this time. Call light within reach. [facility]11-21-2022 Consult note* Shahzad Whiting MD - [...] Use Authorization (EUA) for the qualitative detection djAXFA-JkN-8 nucleic acid. XR FLUORO < 1 HOUR [...] - sleep apnea. Shahzad Whiting MD 10/10/2022 [facility]11-21-2022 Consult note* Shahzad Whiting MD - [...] Use Authorization (EUA) for the qualitative detection rnARJD-AgH-2 nucleic acid. XR FLUORO < 1 HOUR [...] Shahzad Whiting MD 10/10/2022 documented in [facility]11[facility]* Nursing Notes - Ly Lynn RN - 10/10/2022 3:22 PM EST Assessment is complete and remains unchanged from previous at this time with any exceptions noted in the flowsheet. Patient denies further needs and is left with call light and personals in reach. Will continue to monitor. [facility] Discharge instructions* Discharge Instructions* Keira [...] - 10/10/2022 2:47 PM EST Contact Office ([phone]) if: > Total Knee ROM < 90 [...] be sent through Care Everywhere. * celecoxib (Romanian) * docusate (oral/rectal) (Romanian) * oxycodone (Romanian) documented in this [facility]11-21-20[facility] Note* Nursing Notes - Ly Lynn RN - 10/10/2022 1:00 PM EST Report received from DENTAL INSURANCE BILLER. Patient hooked up to tele and vitals at this time. Call light within reach and bed in low position. [facility] Nurse Note* Diamond Barillas RN - 10/10/2022 12:45 PM EST Discharged from PACU in stable condition. Transported via bed to room 3754 Bed placed in lowest position. Call light within reach. Report given to Jared GUTIERREZ documented in this [facility]11-21-2022 Nurse Surgical operation note* Diamond Barillas RN - 10/10/2022 12:45 PM EST Discharged from PACU in stable condition. Transported via bed to room 3754 Bed placed in lowest position. Call light within reach. Report given to Jared GUTIERREZ [facility]11-21-2022 Note* Brief Op Note - PRINCE Yo - 10/10/2022 11:42 AM EST POST OPERATIVE/PROCEDURE NOTE Seth Bell 66 y.o. male [id number] SURGEON Surgeon(s) and Role: * Lazarus Coronado MD - Primary OPTICS MANUFACTURING TECHNICIAN Mone Watson APRN-CABRERA ANESTHESIOLOGIST LEAD GAME DESIGNER: MERRY Rodriguez SURGICAL STAFF Bilingual Inside Sales Representative: Imelda Gilbert RN; Lisa Bueno RN Nurse Practitioner: PRINCE Yo Hydrometer Calibrator: Don Snider; Refugio De Leon PROCEDURE PERFORMED [...] Implant Name Type Inv. Item Serial No. Resolution Manager Lot No. LRB No. Used Action bi mentum press fit cup [id number] Left 1 Implanted femoral stem sz 6 DEPUY [id number] Left 1 Implanted femoral head 28mm DEPUY [id number] Left 1 Implanted bi mentum liner DEPUY [id number] Left 1 Implanted SPECIMENS ID Type Source Tests Collected by Time Destination 1 : left femoral head Permanent TISSUE SURGICAL PATHOLOGY REQUEST Lazarus Coronado MD 10/10/2022 1045 PRINCE Yo October 10, 2022 11:42 AM [facility]10-27-2022 Note* Nursing Notes - Brittani Honeycutt RN - 09/15/2022 10:07 AM EDT 09/15/22 1004 Information Source Information Source patient ;child Contact Information Er Rn Name Brittani Honeycutt RN Case Manager's Living [...] follow and assist with discharge plans. [facility] History of Present illness Narrative* Sneha [...] 08/03/2022 2:26 PM Patient: Seth Bell MR#: [id number] : 1955 Age: 66 y.o. Referring Physician: [...] [x]cane, []bracing Are you followed by a continuous improvement intern? [x] [] Name: [facility] cariology group Are you [...] a left total hip arthroplasty for optimal fpc management. PHYSICAL EXAM: This is an alert, [...] of jointspace, subchondral sclerosis, osteophyte formation, and evhf-qj-xbee contact. Available radiographsfrom 08/2021 appeared normal. IMPRESSION: [...] of limb, and ultimately loss of life. intermediate teacher expectations, risks and general implant survivorship were also discussed. Despite these risks, the patient would like to proceed with surgical planning. Today, we will initiate the pre-surgical process including nasal MRSA screening, scheduling an appointment for [facility] [place] and the potential surgical date, and reviewing [...] Rfl: Not on File documented in this [facility]09-01-2022 NoteCONSULTATION CONSULTATION DATE: 07/21/2022 HISTORY OF PRESENT [...] on 08/18/[address] Lazarus Coronado at [facility], with the intention of moving forward with [...] following his appointment with Dr. Coronado in [place] regarding his hip consultation. He will be seen in the clinic in three months' time unless otherwise indicated.[facility] [place] [address]-22-2022 NotePROCEDURE DETAILS Preoperative Diagnosis: 1. Conductive hearing loss 2. Otosclerosis Postoperative Diagnosis: 1. Conductive hearing loss 2. Otosclerosis Surgeon: Bob Resident/Fellow/Other Link Wire Fabric Machine Operator: Zeenat Procedure: 1. Left stapedectomy Estimated Blood [...] of operating microscope. Surgeon: Jamie Rojas MD [employer] Wire Fabric Machine Operator surgeon: Leila Epperson MD Anesthesia: General Endotracheal. [...] mm, 360-degree Eclipse nitinol-based piston manufactured by [employer], [place], [place] was then placed and crimped onto [...] was awakened and tr (more content not included)...[facility] 05-11-2022 NoteHistory & Physical Reviewed: I have [...] Completion Last Updated: 11-May-2022 10:07 by Jamie Rojas)[facility]04-28-2022 NoteDiagnoses/Problems Blood tests prior to treatment or [...] is a 66-year-old male referred by Dr. Davlia for evaluation of progressive left conductive hearing [...] This note was created using speech recognition superintendent renting managing software/or [employer] superintendent renting managing services. Despite proofreading, several typographical errors might be present that might affect the meaning of the content. Please call with any questions. By signing my name below, I, Amie Lowe, (more content not included)... TouchworksEvaluation + Plan note Future Appointments Appointment Date:12/08/2023 08:30:00 AM Scheduled Provider:Ailyn DUNN MD Location:[facility] Appointment Type:URO Office Visit Diagnostic Tests Pending * PSA Total 12/05/22 [facility] evaluation + Plan note Future Appointments Appointment Date:12/20/2024 08:30:00 AM Scheduled Provider:Ailyn DUNN MD Location:[facility] Appointment Type:URO Office Visit Diagnostic Tests Pending * PSA Total 01/01/24 [facility] evaluation + Plan note Future Appointments Appointment Date:12/20/2024 08:30:00 AM Scheduled Provider:Ailyn DUNN MD Location:[facility] Appointment Type:URO Office Visit [facility] Evaluation + Plan note Future Appointments Appointment Date:12/20/2024 08:30:00 AM Scheduled Provider:Ailyn DUNN MD Location:[facility] Appointment Type:URO Office Visit Future Scheduled Tests Laboratory* Creatinine 06/27/24 [facility] Evaluation note* Diagnosis Left hip pain Pain in joint, pelvic region and thigh documented in this encounter [facility] [place] [facility]* Diagnosis Left hip pain- Primary Pain in joint, pelvic region and thigh documented in this encounter RF nanoEvMindSumo note* Diagnosis Postoperative wound infection of left hip- Primary Other postoperative infection Preop testing Preoperative examination, unspecified Encounter for preoperative screening laboratory testing for COVID-19 virus Primary osteoarthritis of left hip Primary localized osteoarthrosis, pelvic region and thigh Primary osteoarthritis of left hip Primary localized osteoarthrosis, pelvic region and thigh documented in this encounter [facility] [place] [facility]* Diagnosis Hx of total hip arthroplasty, left- Primary Right knee pain, unspecified chronicity documented in this encounter Jumio noteNo [facility] [place] Other Evaluation note* Diagnosis Acute postoperative pain of left knee- Primary Primary osteoarthritis of right knee Primary localized osteoarthrosis, lower leg Osteoarthritis of right knee Osteoarthrosis, unspecified whether generalized or localized, lower leg documented in this encounter Jumio [facility] [place] Other Evaluation note* Diagnosis Hx of total knee arthroplasty, right- Primary documented in this encounter [facility] general Narrative - Reported* Type Description Date [...] 202 2 Hospitalization History SEE SURGICAL HX Instaclustr Other History general Narrative - Reported* Type [...] TKA 04/2023` Hospitalization History SEE SURGICAL HX Instaclustr Other History general Narrative - ReportedNoShotSpotter Other History general Narrative - Reported* Type [...] EGD 05/2023 Hospitalization History SEE SURGICAL HX Instaclustr Other History of Present illness Narrative* History [...] my professional assessment of this patient s boat master katarzyna progressive condition, the complexity of evaluation and treatment is moderate. * This note was created using speech recognition superintendent renting managing software/or [employer] superintendent renting managing services. Despite proofreading, several typographical errors might [...] stapedectomy for otosclerosis is an elective procedure. YI-Nrzpxfzmdolces-Hxkzvuol Work Phone: History of Present illness Narrative* [...] my professional assessment of this patient s boat master katarzyna progressive condition, the complexity of evaluation and treatment is moderate. * This note was created using speech recognition superintendent renting managing software/or [employer] superintendent renting managing services. Despite proofreading, several typographical errors might [...] stapedectomy for otosclerosis is an elective procedure. DV-Kryjxjecwkzeev-Sjectcxe Work Phone: Hospital course Narrative No data available for this section [facility] Hospital Discharge instructions No data available for this section [facility] [place] Progress note No data available for this section [facility] reason for visit Narrative* Auth/Cert Specialty Diagnoses / Procedures Referred By Dodie t Referred To Contact Diagnoses Primary osteoarthritis of left hip Primary osteoarthritis of left hip [M16.12] Procedures OH TOTAL HIP ARTHROPLASTY ARTHROPLASTY HIP TOTAL ANTERIOR APPROACH Lazarus Coronado MD [address] [place] [phone] Referral ID Status Reason Start Date Expiration Date Visits Re quested Visits Authorized [id number] 08/15/2022 1 1 [facility] Summary Purpose Family History Unknown Family [...] HIP WITH PELVIS LEFT Lazarus Coronado MD [address] [place] [address]31 Referral ID Status Reason Start Date Expiration Date V isits Requested Visits Authorized [id number] Pending Review 08/03/2022 08/28/2023 1 1 Specialty Diagnoses / Procedures Referred By Dodie t Referred To Contact Diagnoses Right knee pain, unspecified chronicity Procedures XR KNEE RIGHT 4+ VIEWS Lazarus Coronado MD [address] [place] [phone] Referral ID Status Reason Start Date Expiration Date V isits Requested Visits Authorized [id number] New Request 03/23/2023 04/16/2024 1 1 Specialty Diagnoses / Procedures Referred By Octaviaac t Referred To Contact Diagnoses Right knee pain, unspecified chronicity Procedures XR BONE LENGTH STUDY Lazarus Coronado MD [address] [place] [phone] Referral ID Status Reason Start Date Expiration Date V isits Requested Visits Authorized [id number] New Request 03/23/2023 04/16/2024 1 1 Referral ID Status Reason Start Date Expiration Date V isits Requested Visits Authorized [id number] New Request 03/23/2023 04/16/2024 1 1 Specialty Diagnoses / Procedures Referred By Contac t Referred To Contact Diagnoses Hx of total hip arthroplasty, left Procedures XR HIP WITH PELVIS LEFT Lazarus Coronado MD [address] [place] [phone] Referral ID Status Reason Start Date Expiration Date V isits Requested Visits Authorized [id number] New Request 03/07/2023 03/31/2024 1 1 Specialty Diagnoses / Procedures Referred By Contac t Referred To Contact Physical Therapy Diagnoses Acute postoperative pain of left knee Mone Watson, SUKH-DRUG SAFETY ASSISTANT [address] [place] [phone] Referral ID Status Reason Start Date Expiration Date V isits Requested Visits Authorized [id number] New Request 05/08/2023 06/01/2024 1 1 Scheduling Instructions . Specialty Diagnoses / Procedures Referred By Octaviaac t Referred To Contact Diagnoses Hx of total knee arthroplasty, right Procedures XR KNEE RIGHT 3 VIEWS Mone Watson, CAMP COUNSELOR-DRUG SAFETY ASSISTANT [address] [place] [address] 11834 Referral ID Status Reason Start Date Expiration Date V isits Requested Visits Authorized [id number] New Request 05/24/2023 06/17/2024 1 1 Additional Source Comments (unrecognized sect ion and content) No Status Records FoundNo Status Records FoundNo Status Records FoundNo Status Records FoundNo Status Records FoundNo Status Records FoundNo Status Records FoundNo Status Records Found INFORMATION SOURCE (unrecogn ized section and content) DATE CREATED AUTHOR 12/15/2021 [facility] DATE CREATED AUTHOR AUTHOR'S ORGANIZ ATION 07/17/[address] [employer] [address] [employer] DATE CREATED AUTHOR AUTHOR'S ORGANIZ ATION 07/18/2022 [facility] DATE CREATED AUTHOR AUTHOR'S ORGANIZ ATION 03/31/2023 [facility] DATE CREATED AUTHOR AUTHOR'S ORGANIZ ATION 06/08/2023 [facility] DATE CREATED AUTHOR AUTHOR'S ORGANIZ ATION 06/27/2023 [facility] DATE CREATED AUTHOR AUTHOR'S ORGANIZ ATION 05/20/2024 [facility] DATE CREATED AUTHOR AUTHOR'S ORGANIZ ATION 06/25/2024 [facility]by [facility] Reason for Visit (unrecogniz ed section and content) Specialty Diagnoses / Procedures Referred By Contac t Referred To Contact Diagnoses Left hip pain Procedures XR HIP WITH PELVIS LEFT Lazarus Coronado MD [address] [place] [address] Referral ID Status Reason Start Date Expiration Date V isits Requested Visits Authorized [id number] Pending Review 08/03/2022 08/28/2023 1 1 Reason Comments Pain New Patient Specialty Diagnoses / Procedures Referred By Contac t Referred To Contact Diagnoses Hx of total hip arthroplasty, left Procedures XR HIP WITH PELVIS LEFT Mone Watson, CAMP COUNSELOR-CABRERA [address] [place] [address] 47217 Referral ID Status Reason Start Date Expiration Date V isits Requested Visits Authorized [id number] New Request 10/27/2022 11/21/2023 1 1 Specialty Diagnoses / Procedures Referred By Contac t Referred To Contact Diagnoses Hx of total hip arthroplasty, left Procedures XR HIP WITH PELVIS LEFT Lazarus Coronado MD [address] [place] [address] 51163 Referral ID Status Reason Start Date Expiration Date V isits Requested Visits Authorized [id number] New Request 03/07/2023 03/31/2024 1 1 Specialty Diagnoses / Procedures Referred By Contac t Referred To Contact Diagnoses Right knee pain, unspecified chronicity Procedures XR BONE LENGTH STUDY Lazarus Coronado MD [address] [place] [address] [phone] Referral ID Status Reason Start Date Expiration Date V isits Requested Visits Authorized [id number] New Request 03/23/2023 04/16/2024 1 1 Reason Comments Post Op Visit Specialty Diagnoses / Procedures Referred By Dodie silverman Referred To Contact Diagnoses Primary osteoarthritis of right knee Primary osteoarthritis of right knee [M17.11] Procedures OH TOTAL KNEE ARTHROPLASTY ARTHROPLASTY KNEE TOTAL Lazarus Coronado MD [address] [facility] [place] [address] Referral ID Status Reason Start Date Expiration Date Visits Re quested Visits Authorized [id number] 03/29/2023 1 1 Reason Comments Post Op Visit Care Teams (unrecognized sec tion and content) Personnel Name: STEVAN GALDAMEZ DO Address: Address: [address] Meat Cutting Teacher Relationship Specialty Start Date End Date Stevan Galdamez DO [address] [facility] [place] [phone] PCP - General Internal Medicine 08/03/22 Meat Cutting Teacher Relationship Specialty Start Date End Date Stevan Galdamez DO [address] [place] [phone] PCP - General Internal Medicine 08/03/22 Meat Cutting Teacher Relationship Specialty Start Date End Date Stevan Galdamez DO [address] [place] [phone] PCP - General Internal Medicine 08/03/22 Meat Cutting Teacher Relationship Specialty Start Date End Date Stevan Galdamez DO [address] [place] [phone] PCP - General Internal Medicine 08/03/22 Meat Cutting Teacher Relationship Specialty Start Date End Date Stevan Galdamez DO [address] [place] [phone] PCP - General Internal Medicine 08/03/22 Meat Cutting Teacher Relationship Specialty Start Date End Date Stevan Galdamez DO [address] [place] [phone] PCP - General Internal Medicine 08/03/22 Meat Cutting Teacher Relationship Specialty Start Date End Date Stevan Galdamez DO [address] [place] [phone] PCP - General Internal Medicine 08/03/22 Meat Cutting Teacher Relationship Specialty Start Date End Date Stevan Galdamez DO [address] [place] [phone] PCP - General Internal Medicine 08/03/22 Meat Cutting Teacher Relationship Specialty Start Date End Date Stevan Galdamez DO [address] [place] [phone] PCP - General Internal Medicine [...] 2 g, Intravenous, Administer over 30 Minutes, INVESTMENT SALES ASSISTANT TO PROCEDURE, 1 dose, Starting on Mon10/10/22 at 0657, Until Discontinued, Other, Pre-operative antibiotic, For 15 Minutes, Pre-op/Pre-Proc 1015 (Given - Provider: Gino Rashid, CAMP COUNSELOR-LEAD GAME DESIGNER) HYDROmorphone (DILAUDID) injection 0.5 mg 0.5 mg, [...] Qiu RN) 0833 (Given - Provider: Keira iQu RN) traZODone (DESYREL) tablet 50 mg 50 [...] Keira Qiu RN)1015 (Paused - Provider: MEAGAN SteeleLEAD GAME DESIGNER - Comment: Switch to gravity)1016 (Restarted - Provider: MEAGAN SteeleLEAD GAME DESIGNER)1057 (Stopped - Provider: Keira Qiu RN) Sodium [...] 2 g, Intravenous, Administer over 30 Minutes, INVESTMENT SALES ASSISTANT TO PROCEDURE, 1 dose, Starting on Mon05/08/23 at 0708, Until Discontinued, Other, Pre-operative antibiotic, For 15 Minutes, Pre-op/Pre-Proc 0847 (Given - Provider: Boy Vidal APRN-LEAD GAME DESIGNER) Celecoxib (CELEBREX) capsule 200 mg (COMPLETED) 200 [...] BE BASED ON THE PRIMARY CLINICAL RECORDS. [facility] [employer] [facility]. provides no warranty or guarantee of the accuracy or completeness of information in this document.
--- NOTE | 2024-06-28 08:20 | CT_ITS ---
[address] [address] Patient Name: SETH PARIS MRN: [id number] date: 1955 Sex: M Assigned Patient Location: LAB Current Patient Location: Accession/Order Number: [id number] Exam Date: 06/28/2024 08:07 Report Date: 07/01/2024 14:20 At the request of: JAGDEEP GRAVES Procedure: CT abdomen pelvis w con EXAMINATION: CT abdomen pelvis w con HISTORY: Right Lower Quadrant Pain COMPARISON: No relevant comparison available. TECHNIQUE: CT images were created with IV contrast. Axial, Coronal, and Sagittal images. Dose reduction techniques were achieved by using automated exposure control and/or adjustment of mA and/or kV according to patient size and/or use of iterative reconstruction technique. FINDINGS: LUNG BASES: No visible pulmonary or pleural disease. LIVER: No enlargement, atrophy, abnormal density, or significant focal lesion. BILIARY: No visible dilatation or calcification. PANCREAS: No lesion, fluid collection, ductal dilatation, or atrophy. SPLEEN: No enlargement or focal lesion. ADRENALS: No mass or enlargement. KIDNEYS: Bilateral renal cortical hypodensities likely cysts. No hydronephrosis or obstructing nephrolithiasis BOWEL/MESENTERY: Moderate colonic diverticulosis without evidence of acute diverticulitis. Nonobstructive bowel gas pattern. Normal appendix. AORTA/VASCULAR: No aortic aneurysm. Moderate diffuse atherosclerosis RETROPERITONEUM: No mass or adenopathy. LYMPH NODES: No adenopathy. URINARY BLADDER: No visible focal wall thickening, lesion, or calculus. PELVIC ORGANS: Enlarged heterogeneous prostate gland measuring 4.8 cm in diameter ABDOMINAL WALL: No mass or hernia. BONES: No bony lesion or fracture. Posterior decompression bilateral transpedicular fusion L2-S1. No mechanical failure. Moderate to severe degenerative changes of the spine. Left hip arthroplasty. OTHER: Negative. CT/CT abdomen pelvis w con IMPRESSION: No obstructive uropathy Normal appendix Electronically authenticated by: DAVIN GALAVIZ Date: 07/01/2024 14:20
== END 2024-06-28 06:48 | disposition home or self-care (01) ==
LOC: LAB 06:47
PROVIDERS: PCP Internal Medicine; Visit Provider Surgery
DX: R10.31 Right lower quadrant pain (principal)
CPT/HCPCS: 74177; Q9967

== ENCOUNTER 2024-09-19 14:18 | Outpatient (OUT) | payer MEDICARE, SELFPAY ==
--- OUTSIDE RECORDS SUMMARY | 2024-09-19 14:29 | XMS_ITS | CCD ---
Author Organization [facility] Care Team Providers Care Knot Cutter Name Role Phone Rudolph Stevan Johnson Unavailable Unavailable Unavailable Stevan Galdamez DO Primary Care Provider [phone] Stevan Galdamez DO Primary Care Provider [phone] STEVAN GALDAMEZ Primary Care Physician [phone] RUDOLPH, DR ZUÑIGA Primary Care Unavailable GONZALEZ [...] Unavailable BALL, STEVAN Primary Care Unavailable FOSTER, LAZRAUS Attending Unavailable FOSTER, LAZARUS Referring Unavailable BALL, [...] LAZARUS Referring Unavailable FOSTER, LAZARUS Attending Unavailable JOAQUIM CHAUDHARY Attending Unavailable Ball Stevan SHEETS Primary Care Provider SARAH HOOKS Attending Unavailable BALL, STEVAN E Referring Unavailable NILL, Bonifacio Dee Attending Unavailable BALL, STEVAN Referring Unavailable BALL, STEVAN Referring Unavailable NILL, Bonifacio Dee Attending Unavailable DUNN, Ailyn Dee Attending Unavailable DUNN, Ailyn Dee Attending Unavailable NILL, Bonifacio Dee Attending Unavailable NILL, Bonifacio Dee Attending Unavailable Allergies Allergy Classification Reported Allergen(s) Allergy Type Date of Onset Reaction(s) Facility (10 sources) patient allergy list reviewed by nurse or physicia Propensity to adverse reactions 7 Comment:Done [facility] Other (10 sources) Allergies Reconciled Propensity to adverse reactions Unknown [facility] Other (1 source) No Known Medication Allergies; 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: [No Known Medication Allergies] Propensity to adverse reactions (disorder) [facility] Repository Medications Current Medications Medication Drug Class(es) Dates Sig (Normalized) Sig (Original) 3mL syringe (5 sources) Start: 06-19-2020 3mL syringe 3mL syringe, See Instructions, 6 EA, 1, Use 1 syringe each month, [facility][id number], Supply, 179, cm, 06/05/20 11:23:00 EDT, Height/Length [...] day(s), # 90 tab(s), Refills(s) 3, Pharmacy: [facility], 179, cm, 12/05/22 9:44:00 EST, Height/Length [...] Daily, # 90 tab(s), Refills(s) 3, Pharmacy: [facility], 179, cm, 12/03/21 9:55:00 EST, Height/Length [...] Active medicinal cannabis (MEDICINAL MARIJUANA) (6 sources) 24 hr metoprolol succinate 50 mg extended release oral tablet (20 sources) beta-Adrenergic Juvenal Start: 10-10-2022 End: 10-11-2022 take 25 mg by mouth every twelve hours 25 mg, Oral, EVERY 12 HOURS, First dose on Mon10/10/22 at 2100, Until Discontinued Start: 06-11-2019 End: 05-09-2023 take 1 tablet by mouth once daily metoprolol succinate XL (Toprol-XL) 50 MG 24 hr tablet Take 1 tablet by mouth Daily 08/14/2024 Active Misc. Devices (Raised Toilet Seat) Misc (6 sources) Start: 10-07-2022 naloxone hydrochloride 40 mg/ml nasal spray (2 sources) Opioid Antagonist Start: 05-08-2023 End: 05-08-2023 naloxone 4 MG/0.1ML 1 spray by Nasal route once for 1 dose. Ophelia into the nose as directed. Call 911. [...] pantoprazole 40 mg delayed release oral tablet (20 sources) Proton Pump Inhibitor Start: 02-29-2024 take 1 tablet by mouth once daily [...] Nov, Active tadalafil 20 mg oral tablet (5 sources) Phosphodiesterase 5 Inhibitor Start: 07-04-2023 Cialis 20 mg Tab 20 mg = 1 tab(s), Oral, As Directed, take 1-2hrs. prior to sexual activity, # 30 tab(s), Refills(s) 3, Pharmacy: [facility], 179, cm, 12/05/22 9:44:00 EST, Height/Length [...] day(s), # 180 cap(s), Refills(s) 3, Pharmacy: [facility], 179, cm, 01/01/24 12:08:00 EST, Height/Length Dosing, 90, kg, 01/01/24 12:08:00 EST, Weight Dosing Start Date: 02/12/24 Stop Date: 02/06/25 Status: Ordered Start: 01-12-2024 take 1 capsule by [facility] every twenty-four hours in the morning tamsulosin (Flomax) 0.4 MG 24 hr capsule Take 0.4 mg by mouth in the morning and 0.4 mg before bedtime. 01/12/2024 Active Start: 12-05-2022 End: 11-30-2023 take 1 capsule by mouth twice daily tamsulosin 0.4 mg Cap 0.4 mg = 1 cap(s), Oral, BID, X 90 day(s), # 180 cap(s), Refills(s) 3, Pharmacy: [facility], 179, cm, 12/05/22 9:44:00 EST, Height/Length Dosing, 91, kg, 12/05/22 9:44:00 EST, Weight Dosing Start Date: 12/05/22 Stop Date: 11/30/23 Status: Ordered Start: 03-11-2022 End: 05-09-2023 take 0.4 mg by mouth once daily 0.4 mg, Oral, DAILY, F irst dose on 05/08/23 at 1230, Until Discontinued Slow release product. [...] Start: 06-11-2019 take 1 tablet by adiel th once daily Lipitor 80 mg Tab [...] Active docusate sodium 50 mg / sennosides, [facility] 8.6 mg oral tablet (2 sources) Start: [...] dose on Mon10/11/22 at 0900, Until Discontinued mupirocin 0.02 mg/mg topical ointment (1 source) [...] Date Documented Da te Episodic/Chronic Abdominal hernia (20 sources) Umbilical hernia; 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: [Umbilical hernia with obstruction but no gangrene] Onset: 9 06-18-2019 Episodic Abdominal pain (16 sources) Periumbilical pain; 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: [Periumbilical pain] Onset: 9 Episodic Acute bronchitis (13 sources) Acute bronchitis; 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: [Acute bronchitis due to other specified organisms] Episodic Coronary atherosclerosis and other heart disease (20 sources) Coronary arteriosclerosis; 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: [Atherosclerotic heart disease of [place] coronary artery without angina pectoris] Onset: 2 Chronic Deficiency and other anemia (20 sources) Anemia; 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: [Anemia, unspecified] Episodic Disorders of lipid metabolism (20 sources) Pure hypercholesterolemia; 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: [Pure hypercholesterolemia, unspecified] Onset: 2 Chronic Diverticulosis and diverticulitis (3 sources) Diverticular disease 04-11-2024 Chronic Esophageal disorders (20 sources) Gastroesophageal reflux disease; 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: [Gastro-esophageal reflux disease without esophagitis] Chronic Essential hypertension (20 sources) Benign hypertension; 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: [Hypertensive disorder] Onset: 5 06-18-2019 Chronic Genitourinary symptoms and ill-defined conditions (20 sources) Blood in urine; 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: [Microscopic hematuria] [...] sources) H/O: high risk medication; 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: [Other jail (current) 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] Episodic Other aftercare (12 sources) Long-term current use of 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; 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: [Other jail (current) 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] Episodic Other aftercare (1 source) Other terminal clerk (current) 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; 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: [Other jail (current) 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] Episodic Other and ill-defined heart disease (5 sources) Heart disease 06-23-2019 Chronic Other and unspecified benign neoplasm (3 sources) Lipoma of spermatic cord; 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: [Benign [...] Chronic Other ear and sense organ disorders (3 sources) Hearing loss 04-11-2024 Chronic Other endocrine disorders (2 sources) Testicular hypofunction; 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: [Testicular hypofunction] Onset: 3 Chronic Other endocrine disorders (5 sources) Male hypogonadism 12-18-2020 Chronic Other endocrine [...] Other hereditary and degenerative nervous system conditions (17 sources) Restless legs; 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: [Restless legs syndrome] [...] serum enzymes] Episodic Other male genital disorders (8 sources) Male erectile dysfunction, unspecified; 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: [Erectile dysfunction] Onset: 3 Chronic Other male genital disorders (2 sources) H/O: male genital disorder; 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: [Personal history of other genital system and obstetric disorders] Episodic Other male genital disorders (5 sources) Retrograde ejaculation 06-05-2020 Episodic Other nervous [...] Chronic Other nutritional; endocrine; and metabolic disorders (14 sources) Overweight; 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: [Overweight] 08-08-2024 Episodic Other nutritional; endocrine; and metabolic disorders (1 source) Overweight; 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: [Overweight] Episodic Other nutritional; endocrine; and metabolic disorders (2 sources) Overweight in adulthood with body mass index of 25 or more but less than 30 06-27-2024 Episodic Other screening for suspected conditions (not mental disorders or infectious disease) (20 sources) Raised prostate specific antigen; 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: [Elevated prostate specific antigen [PSA]] Onset: 3 Episodic Other upper respiratory disease (15 sources) Seasonal allergic rhinitis; 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: [Other seasonal allergic rhinitis] Onset: 7 04-11-2024 Chronic Other upper respiratory disease (1 source) Other seasonal allergic rhinitis; 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: [Other seasonal allergic rhinitis] Onset: 7 Chronic Otitis media and related conditions (15 sources) Otosclerosis; 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: [Otosclerosis, unspecified] Episodic Residual codes; unclassified (15 sources) Obstructive sleep apnea syndrome; 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: [Obstructive [...] of mental health and substance abuse codes (18 sources) Ex-smoker; 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: [History of tobacco use] [...] with and (suspected) exposure to COVID-19] Unclassified (3 sources) Patient encounter status 04-23-2024 Past or [...] Spondylosis; intervertebral disc disorders; other back problems (15 sources) Low back pain; 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: [Low back [...] Test Name Value Interpretation Reference Range Facility Ambulatory Visit Summaryon 0 06-27-2024 Ambulatory Visit Summary Ambulatory Visit Summary SETH BELL :1955 Visit Date:06/27/2024 Ambulatory Visit Instructions Your Diagnosis Right groin pain, Right lower quadrant abdominal pain Tests Performed CT Abdomen/Pelvis w/ Contrast -- Results Pending -- Please visit your patient portal for your results or contact your primary care physician. Your Care Team Attending Physician - Bonifacio GRAVES MD Primary Care Physician - STEVAN GALDAMEZ DO [...] trazodone (traZODONE 50 mg Tab) Procedures Performed Colonoscopy (05/29/2024), Arthroplasty of knee (04/2023), Arthroplasty of the hip (2021), MRI-US fusion guided prostate biopsy (11/09/2021), Cystoscopy (09/18/2014), Colonoscopy (2013), Arthroscopy of knee, Cardiac catheterisation, combined right and left heart, EGD - esophagogastroduodenosco py, Hemorrhoidectomy, Insertion of coronary artery stent, Lumbar discectomy, neck surgery, Repair of umbilical hernia, Vasectomy. Discharge Vitals Heart Rate (Peripheral) 45 Respiratory Rate 16 Blood Pressure 134/74 Height 165 cm Height 65 in Weight 80.1 kg Weight 176.22 lb BMI 29.42 What to do next Scheduled Follow-Up Appointments Monday 8:30 AM EST With: SHAUN SHEETS, Ailyn Dee Where: [facility] [place] [address]- Medications What How Much When Instructions Unchanged amlodipine-benazepril (amLODIPine-benazepril 5 mg-20 mg Cap) 1 Capsules By Mouth Every day Contact prescribing physician if questions or concerns Unchanged atorvastatin (Lipitor 80 mg Tab) 1 Tablets By Mouth Every day Contact prescribing physician if questions or concerns Unchanged buPROPion (buPROPion 150 mg ER Tab) 1 Tablets By Mouth Every day Contact prescribing physician if questions or concerns Unchanged buPROPion (buPROPion 300 mg/ 24 hours ER Tab) 1 Tablets By Mouth Every day Contact prescribing physician if questions or concerns Unchanged finasteride (finasteride 5 mg Tab) 1 Tablets By Mouth Every day Duration: 90 Days Contact prescribing physician if questions or concerns Unchanged metoprolol (Toprol XL 50 mg Tab-ER) 1 Tablets By Mouth Every day Contact prescribing physician if questions or concerns Unchanged Misc Prescription (22 gauge needle) See instructions Use 2 needles per month, one to draw up and one for injection Contact prescribing physician if questions or concerns Unchanged Misc Prescription (3mL syringe) See instructions Use 1 syringe each month Contact prescribing physician if questions or concerns Unchanged pantoprazole (Pantoprazole [address] Tab) 1 Tablets By Mouth Every day Contact prescribing physician if questions or concerns Unchanged tadalafil (Cialis 20 mg Tab) 1 Tablets By Mouth As Directed take 1-2hrs. prior to sexual activity Contact prescribing physician if questions or concerns Unchanged tamsulosin (Flomax 0.4 mg Cap) 1 Capsules By Mouth 2 times a day Duration: 90 Days Contact prescribing physician if questions or concerns Unchanged trazodone (traZODONE 50 mg Tab) 1 Tablets By Mouth Once a day (at bedtime) Contact prescribing physician if questions or concerns Allergies No Known Allergies No Known Medication Allergies Problems Ongoing - Any problem that you are currently receiving treatment for. BMI 29.0-29.9,adult Coronary atherosclerosis Depression Diverticulosis Elevated PSA Enlarged prostate with urinary obstruction Erectile dysfunction Familial hypercholesterolemia Former smoker GERD (gastroesophageal reflux disease) Hearing loss Heart disease Hematuria Hypercholesterolemia Hyperlipidemia Hypertension Hypogonadism male Lumbar radiculopathy Lumbar spondylosis Microscopic hematuria Nocturia CYNTHIA (obstructive sleep apnea) Overweight Proteinuria Retrograde ejaculation Right groin pain RLS (restless legs syndrome) Screening for malignant neoplasm of colon Seasonal allergic rhinitis Umbilical hernia Historical - Any problem that you are no longer receiving treatment for. Benign hypertension BPH - benign prostatic hyperplasia Placement of stent Patient Survey You may receive a survey via text or e-mail asking about your office visit. Please share your experience with us by completing your survey. We appreciate your feedback and thank you for choosing us for your care. (more content not included)... [facility] Reminderson 05-30-2024 Reminders Reminders From: Nati Shane LPN To: GSN - Clinical; Sent: 05/30/2024 12:26:52 EDT Show up: 04/29/2034 07:00:00 EDT Subject: colonoscopy recall Due Date/Time: 05/29/2034 07:00:00 EDT Reminder/Recall Patient due for screening colonoscopy 05/29/2034. [facility] Consent for Procedure/Surger yon 04-24-2024 Consent for Procedure/Surgery [id number] F [facility] Ambulatory Visit Summaryon 0 04-23-2024 Ambulatory [...] combined right and left heart, EGD - esophagogastroduodenosco py, Hemorrhoidectomy, Insertion of coronary artery stent, Lumbar discectomy, neck surgery, Repair of umbilical hernia, Vasectomy. Discharge Vitals Heart Rate (Peripheral) 50 Respiratory Rate 16 Blood Pressure 130/71 Height 165 cm Height 65 in Weight 82.8 kg Weight 182.16 lb BMI 30.41 What to do next Scheduled Follow-Up Appointments Monday 8:30 AM EST With: SHAUN SHEETS, Ailyn Dee Where: [facility] Physician Referralon 024 Physician Referral [id number] [facility] Office Visiton 03-20-2024 Follow-up visit [id number] Lona Bell 1955 M Date Provider Department Center 03/20/2024 3848-JOAQUIM CHAUDHARY FLORENCIA Tsai Family History Problem Relation Age of Onset Dementia Mother Family Status - Relation Status Age at Mother Alive Father Level of Service:16517 DC OFFICE/OUTPATIENT ESTABLISHED LOW MDM 20 MIN Normal [facility] Patient Educationon 01-01-20 24 Patient Education [...] Where to find more information ? The [place] [employer]: www.cancer.org ? [employer]: www.auanet.org Contact a health care [...] adds flu (more content not included)... Normal [facility] Urology Office/Clinic Noteon 01-01-2024 Urology Office/Clinic Note [...] In 1 year [facility] [address] [place] [address]- [phone] Additional Instructions: w/ PSA Patient Education Prostate [...] times pe (more content not included)... Normal [facility] Comment on above: Result Comment: Elec tronically Signed By: Ailyn DUNN MD\.br\Date and Time Signed: 01/01/24 13:00 EST\.br\Electronically Co-Signed By: Pamela Quezada.antonio\Date and Time Co-Signed: 01/01/24 12:59 EST Lab Reportson 12-29-2023 Lab Reports [id number] F Normal [facility] SURGICAL PATH REPORTon 06-07 SURGICAL PATH REPORT [facility] Department of Pathology [address] [place] [address] Name: SETH BELL : 1955 Financial [id number] Number: Gender Male [facility] : n: Admit 67 years Attending ALAN HENLEY Age: Provider: Ordering ALAN HENLEY Provider: Consulti Surgical Pathology Report ng: ACCESSION: COLLECTED DATE/TIME: RECEIVED DATE/TIME: PATHOLOGIST: [id number] 06/03/2023 12:04 EDT 06/05/2023 12:04 EDT BHARTI SHEETS, MARK MELENDEZ Final Diagnosis Report for [facility] [place] ANTRAL STOMACH, BIOPSY: - ANTRAL TYPE [...] MP/adan 06/05/2023 Tissue pathology report for: [facility], [address] [place] [address]; ____ Print 06/07/2023 11:16 EDT Number: Date/Time: [facility] Department of Pathology [address] [place] [id number] Name: ESTH BELL : 1955 Financial [id number] Number: [facility] : n: Admit 67 years Attending ALAN HENLEY Age: Provider: Ordering ALAN HENLEY Provider: Consulti Surgical Pathology Report ng: ACCESSION: COLLECTED DATE/TIME: RECEIVED DATE/TIME: PATHOLOGIST: [id number] 06/03/2023 12:04 EDT 06/05/2023 12:04 EDT BHARTI SHEETS, MARK MELENDEZ Gross Description PATHOLOGY SERVICES PROVIDED BY [employer] (CLIA #[id number]) in cooperation with [facility] at [address] [place] [address] (CLIA #[id number]) Microscopic Diagnosis The final diagnosis is based on a microscopic exam of hobbies and crafts sales representative sections. NOTE: One or more of the reagents used to perform assays on this specimen MAY have contained components considered to be analyte specific reagents ( ASRs). ASRs have not been cleared or approved by the U.S. Food and Drug Administration. The performance characteristics of these assays have been determined by the Department of Pathology at [facility]. This assay was performed subsequent to the H and E examination. Appropriate positive and negative controls were examined with appropriate reactivity. Codes CPT CODE: 85295 + 24133 ____ Print 06/07/2023 11:16 EDT Number: Date/Time: Normal [facility] Comment on above: Performed By: #### [id number] #### [facility] Laboratory Services [address] [place] [address] Missile Control Pilot: Rainer Doss MD BASIC METABOLIC PANELon 04-21 Anion gap [Moles/Vol] 7 mmol/L Low [facility] Calcium [Mass/Vol] 8.1 mg/dL Low [facility] Chloride [Moles/Vol] 103 mmol/L [facility] Comment on above: Please note: Triglyc eride levels of 600mg/dL or higher may positively bias chloride results by approximately 2.1 mmol CO2 [Moles/Vol] 22 mmol/L [facility] Creatinine [Mass/Vol] 0.60 mg/dL Low [facility] GFR COMMENT Average GFR for 60-6 9 years old = 85. [facility] Comment on above: Chronic Kidney disea se, GFR = <60. Kidney failure, GFR = <15. The GFR estimate is not adjusted for extreme body surface area or acute process, nor has it been validated for women or ethnic groups other than and . Testing performed at [place] [id number] GFR/1.73 sq M.predicted among blacks MDRD (S/P/Bld) [Vol rate/Area] 172 mL/min/{1.73_m2} ml/min/1.73s q.m [facility] GFR/1.73 sq M.predicted among non-blacks MDRD (S/P/Bld) [Vol rate/Area] 142 mL/min/{1.73_m2} ml/min/1.73s q.m [facility] Glucose post fast [Mass/Vol] 136 mg/dL High [facility] Comment on above: NORMAL <100 mg/dL PREDIABETES 101-126 mg/dL DIABETES 126 mg/dL or higher Interpretation and review of laboratory results Abnormal [facility] Potassium [Moles/Vol] 4.0 mmol/L [facility] Sodium [Moles/Vol] 132 mmol/L Low [facility] Urea nitrogen [Mass/Vol] 18 mg/dL [facility] BMP FASTINGon 05-09-2023 Anion gap [Moles/Vol] 7 mmol/L Low 8-16 [facility] Comment on above: Performed By: #### B MPF ####Testing performed at [address] [address]#### ACBC ####Testing performed at [address] [address] Calcium [Mass/Vol] 8.1 mg/dL Low 8.4-10.2 [facility] Comment on above: Performed By: #### B MPF ####Testing performed at [address] [address]#### ACBC ####Testing performed at [address] [address] Chloride [Moles/Vol] 103 mmol/L Normal 98-107 [facility] Comment on above: Result Comment: Grey romero note: Triglyceride levels of 600mg/dL or higher may positively bias chloride results by approximately 2.1 mmol Performed By: #### B MPF ####Testing performed at [address] [address]#### ACBC ####Testing performed at [address] [address] CO2 [Moles/Vol] 22 mmol/L Normal 22-30 [facility] Comment on above: Performed By: #### B MPF ####Testing performed at [address] [address]#### ACBC ####Testing performed at [address] [address] Creatinine [Mass/Vol] 0.60 mg/dL Low 0.7-1.2 [facility] Comment on above: Performed By: #### B MPF ####Testing performed at [address] [address]#### ACBC ####Testing performed at [address] [address] EST. GFR, 172 ml/min/1.73sq.m [facility] Comment on above: Performed By: #### B MPF ####Testing performed at [address] [address]#### ACBC ####Testing performed at [address] [address] EST. GFR,Non 142 ml/min/1.73sq.m [facility] Comment on above: Performed By: #### B MPF ####Testing performed at [address] [address]#### ACBC ####Testing performed at [address] [address] GFR Information Average GFR for 60-6 9 years old = 85. Normal [facility] Comment on above: Result Comment: Peripheral Equipment Operator katarzyna Kidney disease, GFR = <60. Kidney failure, GFR = <15. The GFR estimate is not adjusted for extreme body surface area or acute process, nor has it been validated for women or ethnic groups other than and . Testing performed at [place] [address] Performed By: #### B MPF ####[place] [address]#### ACBC ####[place] [address] Glucose [Mass/Vol] 136 mg/dL High 70-100 [facility] Comment on above: Result Comment: NORMAL <100 mg/dL PREDIABETES 101-126 mg/dL DIABETES 126 mg/dL or higher Performed By: #### B MPF ####[place] [address]#### ACBC ####Testing performed at [place] [id number] Potassium [Moles/Vol] 4.0 mmol/L Normal 3.5-5.1 [facility] Comment on above: Performed By: #### B MPF ####Testing performed at [place] [id number]#### ACBC ####Testing performed at [address] [address] Sodium [Moles/Vol] 132 mmol/L Low 137-145 [facility] Comment on above: Performed By: #### B MPF ####Testing performed at [place] [id number]#### ACBC ####Testing performed at [address] [address] Urea nitrogen [Mass/Vol] 18 mg/dL Normal 7-20 [facility] Comment on above: Performed By: #### B MPF ####Testing performed at [place] [id number]#### ACBC ####Testing performed at [address] [address] CBCon 05-09-2023 ABSOLUTE BAS 0.0 10*3/uL Normal 0.0-0.2 [facility] Comment on above: Performed By: #### B MPF ####Testing performed at [address] [address]#### ACBC ####Testing performed at [address] [address] ABSOLUTE EOS 0.0 10*3/uL Normal 0.0-0.7 [facility] Comment on above: Performed By: #### B MPF ####Testing performed at [address] [address]#### ACBC ####Testing performed at [address] [address] ABSOLUTE NEUTROPHIL COUNT 10.1 10*3/uL High 1.4-6.5 [facility] Comment on above: Performed By: #### B MPF ####Testing performed at [address] [address]#### ACBC ####Testing performed at [address] [address] Basophils/100 WBC (Bld) 0.0 % Normal 0.0-2.0 [facility] Comment on above: Performed By: #### B MPF ####Testing performed at [address] [address]#### ACBC ####Testing performed at [address] [place] [address] DTYPE AUTO DIFF Normal [facility] Comment on above: Performed By: #### B MPF ####Testing performed at [address] [address]#### ACBC ####Testing performed at [address] [address] Eosinophils/100 WBC (Bld) 0.0 % Normal 0.0-11.0 [facility] Comment on above: Performed By: #### B MPF ####[place] [address]#### ACBC ####Testing performed at [address] [address] Lymphocytes (Bld) [#/Vol] 0.8 10*3/uL Low 1.2-3.4 [facility] Comment on above: Performed By: #### B MPF ####[place] [address]#### ACBC ####Testing performed at [address] [address] Lymphocytes/100 WBC (Bld) 6.7 % Low 20.0-55.0 [facility] Comment on above: Performed By: #### B MPF ####[place] [address]#### ACBC ####Testing performed at [address] [address] Monocytes (Bld) [#/Vol] 1.0 10*3/uL High 0.0-0.7 [facility] Comment on above: Performed By: #### B MPF ####[place] [address]#### ACBC ####Testing performed at [address] [address] Monocytes/100 WBC (Bld) 8.3 % Normal 0.0-10.0 [facility] Comment on above: Performed By: #### B MPF ####Testing performed at [address] [address]#### ACBC ####Testing performed at [address] [address] Neutrophils/100 WBC (Bld) 85.0 % High 37.0-75.0 [facility] Comment on above: Performed By: #### B MPF ####[place] [address]#### ACBC ####Testing performed at [address] [address] Erythrocyte distribution width (RBC) [Ratio] 13.8 % Normal 11.5-14.5 [facility] Comment on above: Performed By: #### B MPF ####Testing performed at [address] [address]#### ACBC ####Testing performed at [address] [address] Hematocrit (Bld) [Volume fraction] 25.8 % Low 42.0-52.0 [facility] Comment on above: Performed By: #### B MPF ####Testing performed at [address] [address]#### ACBC ####Testing performed at [address] [address] Hemoglobin (Bld) [Mass/Vol] 9.0 g/dL Low 14.0-18.0 [facility] Comment on above: Performed By: #### B MPF ####Testing performed at [address] [address]#### ACBC ####Testing performed at [address] [address] MCH (RBC) [Entitic mass] 31.3 pg Normal 26.0-35.0 [facility] Comment on above: Performed By: #### B MPF ####Testing performed at [address] [address]#### ACBC ####Testing performed at [address] [address] MCHC (RBC) [Mass/Vol] 34.8 g/dL Normal 27.0-37.0 [facility] Comment on above: Performed By: #### B MPF ####Testing performed at [address] [address]#### ACBC ####Testing performed at [address] [address] MCV (RBC) [Entitic vol] 90.0 fL Normal 80.0-100.0 [facility] Comment on above: Performed By: #### B MPF ####Testing performed at [address] [address]#### ACBC ####Testing performed at [address] [address] Platelet mean volume (Bld) [Entitic vol] 9.1 fL Normal 7.4-11.0 [facility] [place] Comment on above: Performed By: #### B MPF ####Testing performed at [address] [address]#### ACBC ####Testing performed at [address] [address] Platelets (Bld) [#/Vol] 149 10*3/uL Normal 130-400 [facility] Comment on above: Performed By: #### B MPF ####Testing performed at [place] [id number]#### ACBC ####Testing performed at [place] [id number] RBC (Bld) [#/Vol] 2.87 10*6/uL Low 4.0-6.1 [facility] Comment on above: Performed By: #### B MPF ####Testing performed at [place] [id number]#### ACBC ####Testing performed at [address] [address] WBC (Bld) [#/Vol] 11.9 10*3/uL High 3.6-11.0 [facility] Comment on above: Performed By: #### B MPF ####Testing performed at [address] [address]#### ACBC ####Testing performed at [address] [address] CBC, EDIF, PLATELETon 2022 ABSOLUTE BASOPHIL COUNT 0.0 10*3/uL 0.0 - 0.2 10*3/uL [facility] Basophils/100 WBC (Bld) 0.0 % 0.0 - 2.0 % [facility] Differential cell count method Nom (Bld) AUTO DIFF % [facility] Eosinophils (Bld) [#/Vol] 0.0 10*3/uL 0.0 - 0.7 10*3/uL [facility] Eosinophils/100 WBC (Bld) 0.0 % 0.0 - 11.0 % [facility] Erythrocyte distribution width (RBC) [Ratio] 13.8 % 11.5 - 14.5 % [facility] Hematocrit (Bld) [Volume fraction] 25.8 % Low 42.0 - 52.0 % [facility] Hemoglobin (Bld) [Mass/Vol] 9.0 g/dL Low [facility] Interpretation and review of laboratory results Abnormal [facility] Lymphocytes (Bld) [#/Vol] 0.8 10*3/uL Low 1.2 - 3.4 10*3/uL [facility] Lymphocytes/100 WBC (Bld) 6.7 % Low 20.0 - 55.0 % [facility] MCH (RBC) [Entitic mass] 31.3 pg 26.0 - 35.0 PG [facility] MCHC (RBC) [Mass/Vol] 34.8 g/dL [facility] MCV (RBC) [Entitic vol] 90.0 fL [facility] Monocytes (Bld) [#/Vol] 1.0 10*3/uL High 0.0 - 0.7 10*3/uL [facility] Monocytes/100 WBC (Bld) 8.3 % 0.0 - 10.0 % [facility] Neutrophils (Bld) [#/Vol] 10.1 10*3/uL High 1.4 - 6.5 10*3/uL [facility] Neutrophils/100 WBC (Bld) 85.0 % High 37.0 - 75.0 % [facility] Platelet mean volume (Bld) [Entitic vol] 9.1 fL [facility] Platelets (Bld) [#/Vol] 149 10*3/uL 130 - 400 10*3/uL [facility] RBC (Bld) [#/Vol] 2.87 10*6/uL Low 4.0 - 6.1 10*6/uL [facility] WBC (Bld) [#/Vol] 11.9 10*3/uL High 3.6 - 11.0 10*3/uL [facility] MRSA SCREENon 05-08-2023 MRSA DNA DALIA+probe Ql (Unsp spec) Negative Normal NEGATIVE [facility] Comment on above: Performed By: #### M RSAST ####[place] [address] STAPH AUREUS SCREEN Negative Normal NEGATIVE [facility] Comment on above: Result Comment: TEST ING PERFORMED BY PCR Performed By: #### M RSAST ####[place] [address] SCREEN: MRSA ONLY, NARES (IS OLATION SCREEN)on 05-08-2023 MRSA isol Org specific cx Ql (Nose) Negative NEGATIVE [facility] STAPHYOCOCCUS AUREUS BY PCR Negative NEGATIVE [facility] Comment on above: TESTING PERFORMED BY PCR [facility] XR KNEE LEFT 2 VIEWSon 05-08 XR KNEE LEFT 2 VIEWS EXAM: XR KNEE LEFT 2 VIEWS INDICATION: tka COMPARISON: None. TECHNIQUE: Radiographs as described above FINDINGS/IMPRESSION: Status post total knee arthroplasty without evidence of complication. Expected perioperative soft tissue changes. Normal [facility] XR Knee - left 2 Viewson FINDINGS/IMPRESSION: [...] of complication. Expected perioperative soft tissue changes. [facility] Radiology Study observation (narrative) [facility] XR Knee - left 2 ViewsOrdere d By: Clinton Dickens on 05-08-2023 [facility] Work Phone: CBCon 04-13-2023 ABSOLUTE BAS 0.0 10*3/uL Normal 0.0-0.2 [facility] Comment on above: Performed By: #### U MAC #### Testing performed at [address] [address] ABSOLUTE EOS 0.2 10*3/uL Normal 0.0-0.7 [facility] Comment on above: Performed By: #### U MAC #### Testing performed at [address] [address] ABSOLUTE NEUTROPHIL COUNT 3.8 10*3/uL Normal 1.4-6.5 [facility] Comment on above: Performed By: #### U MAC #### Testing performed at [address] [address] Basophils/100 WBC (Bld) 0.5 % Normal 0.0-2.0 [facility] Comment on above: Performed By: #### U MAC #### Testing performed at [address] [address] DTYPE AUTO DIFF Normal [facility] Comment on above: Performed By: #### U MAC #### Testing performed at [address] [address] Eosinophils/100 WBC (Bld) 2.6 % Normal 0.0-11.0 [facility] Comment on above: Performed By: #### U MAC #### Testing performed at [address] [address] Lymphocytes (Bld) [#/Vol] 1.3 10*3/uL Normal 1.2-3.4 [facility] Comment on above: Performed By: #### U MAC #### Testing performed at [address] [address] Lymphocytes/100 WBC (Bld) 22.9 % Normal 20.0-55.0 [facility] Comment on above: Performed By: #### U MAC #### Testing performed at [address] [address] Monocytes (Bld) [#/Vol] 0.5 10*3/uL Normal 0.0-0.7 [facility] Comment on above: Performed By: #### U MAC #### Testing performed at [address] [address] Monocytes/100 WBC (Bld) 8.9 % Normal 0.0-10.0 [facility] Comment on above: Performed By: #### U MAC #### Testing performed at [address] [address] Neutrophils/100 WBC (Bld) 65.1 % Normal 37.0-75.0 [facility] Comment on above: Performed By: #### U MAC #### Testing performed at [address] [address] Erythrocyte distribution width (RBC) [Ratio] 14.6 % High 11.5-14.5 [facility] Comment on above: Performed By: #### U MAC #### Testing performed at [address] [address] Hematocrit (Bld) [Volume fraction] 40.8 % Low 42.0-52.0 [facility] Comment on above: Performed By: #### U MAC #### Testing performed at [address] [address] Hemoglobin (Bld) [Mass/Vol] 13.5 g/dL Low 14.0-18.0 [facility] Comment on above: Performed By: #### U MAC #### Testing performed at [address] [address] MCH (RBC) [Entitic mass] 29.9 pg Normal 26.0-35.0 [facility] Comment on above: Performed By: #### U MAC #### Testing performed at [address] [address] MCHC (RBC) [Mass/Vol] 33.0 g/dL Normal 27.0-37.0 [facility] Comment on above: Performed By: #### U MAC #### Testing performed at [address] [address] MCV (RBC) [Entitic vol] 90.7 fL Normal 80.0-100.0 [facility] Comment on above: Performed By: #### U MAC #### Testing performed at [address] [address] Platelet mean volume (Bld) [Entitic vol] 8.9 fL Normal 7.4-11.0 [facility] [place] Comment on above: Performed By: #### U MAC #### Testing performed at [address] [place] [address] Platelets (Bld) [#/Vol] 157 10*3/uL Normal 130-400 [facility] Comment on above: Performed By: #### U MAC #### Testing performed at [address] [place] [address] RBC (Bld) [#/Vol] 4.50 10*6/uL Normal 4.0-6.1 [facility] Comment on above: Performed By: #### U MAC #### Testing performed at [address] [address] WBC (Bld) [#/Vol] 5.9 10*3/uL Normal 3.6-11.0 [facility] Comment on above: Performed By: #### U MAC #### Testing performed at [address] [address] CMP FASTINGon 04-13-2023 A:G RATIO 1.6 RATIO Normal 1.3-2.2 [facility] Comment on above: Performed By: #### U MAC #### Testing performed at [address] [place] [address] ALBUMIN 4.4 G/dl Normal 3.5-5.0 [facility] Comment on above: Performed By: #### U MAC #### Testing performed at [address] [place] [address] ALP [Catalytic activity/Vol] 52 U/L Normal 38-126 [facility] Comment on above: Performed By: #### U MAC #### Testing performed at [address] [place] [address] ALT [Catalytic activity/Vol] 41 U/L Normal 17-63 [facility] Comment on above: Performed By: #### U MAC #### Testing performed at [address] [address] AST [Catalytic activity/Vol] 29 U/L Normal 15-41 [facility] Comment on above: Performed By: #### U MAC #### Testing performed at [address] [place] [address] Bilirubin [Mass/Vol] 1.6 mg/dL High 0.2-1.2 [facility] Comment on above: Performed By: #### U MAC #### Testing performed at [address] [address] Calcium [Mass/Vol] 9.8 mg/dL Normal 8.4-10.2 [facility] Comment on above: Performed By: #### U MAC #### Testing performed at [address] [address] Chloride [Moles/Vol] 105 mmol/L Normal 98-107 [facility] Comment on above: Performed By: #### U MAC #### Testing performed at [address] [address] CO2 [Moles/Vol] 24 mmol/L Normal 22-30 [facility] Comment on above: Performed By: #### U MAC #### Testing performed at [address] [address] Creatinine [Mass/Vol] 0.67 mg/dL Normal 0.66-1.25 [facility] Comment on above: Performed By: #### U MAC #### Testing performed at [address] [address] EST. GFR, 151 ml/min/1.73sq.m [facility] Comment on above: Performed By: #### U MAC #### Testing performed at [address] [address] EST. GFR,Non 125 ml/min/1.73sq.m [facility] Comment on above: Performed By: #### U MAC #### Testing performed at [address] [address] GFR Information Average GFR for 60-6 9 years old = 85. Normal [facility] Comment on above: Result Comment: Peripheral Equipment Operator katarzyna Kidney disease, GFR = <60. Kidney failure, GFR = <15. The GFR estimate is not adjusted for extreme body surface area or acute process, nor has it been validated for women or ethnic groups other than and . Performed By: #### U MAC #### Testing performed at [address] [address] Glucose [Mass/Vol] 106 mg/dL High 70-100 [facility] Comment on above: Result Comment: NORMAL <100 mg/dL PREDIABETES 101-126 mg/dL DIABETES 126 mg/dL or higher Performed By: #### U MAC #### Testing performed at [address] [address] Potassium [Moles/Vol] 4.2 mmol/L Normal 3.5-5.1 [facility] Comment on above: Performed By: #### U MAC #### Testing performed at [address] [address] Protein [Mass/Vol] 7.2 g/dL Normal 6.3-8.2 [facility] Comment on above: Performed By: #### U MAC #### Testing performed at [address] [address] Sodium [Moles/Vol] 137 mmol/L Normal 136-145 [facility] Comment on above: Performed By: #### U MAC #### Testing performed at [address] [address] Urea nitrogen [Mass/Vol] 17 mg/dL Normal 7-20 [facility] Comment on above: Performed By: #### U MAC #### Testing performed at [address] [address] HEMOGLOBIN A1Con 04-13-2023 Glucose [Mass/Vol] 105 mg/dL Normal [facility] Comment on above: Performed By: #### U MAC #### Testing performed at [address] [address] HbA1c (Bld) [Mass fraction] 5.3 % Normal <6 [facility] Comment on above: Result Comment: NORMAL <5.7% PREDIABETES 5.7-6.4% DIABETES 6.5% OR HIGHER Performed By: #### U MAC #### Testing performed at [address] [address] MRSA SCREENon 04-13-2023 MRSA DNA DALIA+probe Ql (Unsp spec) Negative Normal NEGATIVE [facility] Comment on above: Performed By: #### M RSAST ####Testing performed at [address] [address] STAPH AUREUS SCREEN Positive Abnormal NEGATIVE [facility] Comment on above: Result Comment: TEST ING PERFORMED BY PCR Performed By: #### M RSAST ####Testing performed at [address] [place] [address] PROTIMEon 04-13-2023 INR Coag (PPP) [Relative time] 1.02 {INR} Normal 0.85-1.10 [facility] Comment on above: Result Comment: 2.0-3.0 THERAPEUTIC RANGE 2.5-3.5 MECHANICAL VALVE RANGE Performed By: #### U MAC #### Testing performed at [address] [address] PT Coag (PPP) [Time] 13.5 s Normal 11.8-14.4 [facility] Comment on above: Performed By: #### U MAC #### Testing performed at [address] [address] TYPE AND SCREEN CROSSMATCH C ONVERTIBLEon 04-13-2023 TYPE AND SCREEN CROSSMATCH CONVERTIBLE WORKUP EXPIRES 05/11/2023,2359 ABO/RH(D) O POSITIVE ANTIBODY SCREEN NEGATIVE ARM BAND NUMBER [id number] Normal [facility] Comment on above: Performed By: #### U MAC #### Testing performed at [address] [address] URINE MACROSCOPICon 04-13-20 23 Bilirubin Ql (U) Negative Normal NEGATIVE [facility] Comment on above: Performed By: #### U MAC #### Testing performed at [address] [address] Clarity (U) CLEAR Normal CLEAR [facility] Comment on above: Performed By: #### U MAC #### Testing performed at [address] [place] [address] Color (U) YELLOW Normal YELLOW [facility] Comment on above: Performed By: #### U MAC #### Testing performed at [address] [address] Glucose Ql (U) Negative Normal NEGATIVE [facility] Comment on above: Performed By: #### U MAC #### Testing performed at [address] [address] pH (U) 6.0 [pH] Normal 5.0-7.0 [facility] Comment on above: Performed By: #### U MAC #### Testing performed at [address] [address] URINE HEMOGLOBIN Negative Normal NEGATIVE [facility] Comment on above: Performed By: #### U MAC #### Testing performed at [address] [address] URINE KETONE Negative Normal NEGATIVE [facility] [place] Comment on above: Performed By: #### U MAC #### Testing performed at [address] [address] URINE LEUKOTEST Negative Normal NEGATIVE [facility] Comment on above: Performed By: #### U MAC #### Testing performed at [address] [address] URINE NITRATES Negative Normal NEGATIVE [facility] Comment on above: Performed By: #### U MAC #### Testing performed at [address] [address] URINE SPEC GRAVITY 1.025 Normal 1.010-1.025 [facility] Comment on above: Performed By: #### U MAC #### Testing performed at [address] [address] URINE TOTAL PROTEIN Negative Normal NEGATIVE [facility] Comment on above: Performed By: #### U MAC #### Testing performed at [address] [address] Urobilinogen Qn (U) 1.0 {Tee'U}/dL Normal 0.2-1.0 [facility] Comment on above: Performed By: #### U MAC #### Testing performed at [address] [address] BASIC METABOLIC PANELon 11- Anion gap [Moles/Vol] 9 mmol/L [facility] Calcium [Mass/Vol] 8.4 mg/dL [facility] Chloride [Moles/Vol] 105 mmol/L [facility] CO2 [Moles/Vol] 22 mmol/L [facility] Creatinine [Mass/Vol] 0.68 mg/dL [facility] GFR COMMENT Average GFR for 60-6 9 years old = 85. [facility] Comment on above: Chronic Kidney disea se, GFR = <60. Kidney failure, GFR = <15. The GFR estimate is not adjusted for extreme body surface area or acute process, nor has it been validated for women or ethnic groups other than and . GFR/1.73 sq M.predicted among blacks MDRD (S/P/Bld) [Vol rate/Area] 149 mL/min/{1.73_m2} ml/min/1.73s q.m [facility] GFR/1.73 sq M.predicted among non-blacks MDRD (S/P/Bld) [Vol rate/Area] 123 mL/min/{1.73_m2} ml/min/1.73s q.m [facility] Glucose post fast [Mass/Vol] 153 mg/dL High [facility] Comment on above: NORMAL <100 mg/dL PREDIABETES 101-126 mg/dL DIABETES 126 mg/dL or higher Interpretation and review of laboratory results Abnormal [facility] Potassium [Moles/Vol] 3.7 mmol/L [facility] Sodium [Moles/Vol] 136 mmol/L [facility] Urea nitrogen [Mass/Vol] 16 mg/dL [facility] BMP FASTINGon 10-11-2022 Anion gap [Moles/Vol] 9 mmol/L Normal 8-16 [facility] Comment on above: Performed By: #### A CBC, BMPF #### Testing performed at [address] [address] Calcium [Mass/Vol] 8.4 mg/dL Normal 8.4-10.2 [facility] Comment on above: Performed By: #### A CBC, BMPF #### Testing performed at [address] [address] Chloride [Moles/Vol] 105 mmol/L Normal 98-107 [facility] Comment on above: Performed By: #### A CBC, BMPF #### Testing performed at [address] [address] CO2 [Moles/Vol] 22 mmol/L Normal 22-30 [facility] Comment on above: Performed By: #### A CBC, BMPF #### Testing performed at [address] [address] Creatinine [Mass/Vol] 0.68 mg/dL Normal 0.66-1.25 [facility] Comment on above: Performed By: #### A CBC BMPF #### Testing performed at [address] [address] EST. GFR, 149 ml/min/1.73sq.m [facility] Comment on above: Performed By: #### A CBC BMPF #### Testing performed at [address] [address] EST. GFR,Non 123 ml/min/1.73sq.m [facility] Comment on above: Performed By: #### A CBC BMPF #### Testing performed at [address] [address] GFR Information Average GFR for 60-6 9 years old = 85. Normal [facility] Comment on above: Result Comment: Peripheral Equipment Operator katarzyna Kidney disease, GFR = <60. Kidney failure, GFR = <15. The GFR estimate is not adjusted for extreme body surface area or acute process, nor has it been validated for women or ethnic groups other than and . Performed By: #### A CBC BMPF #### Testing performed at [address] [address] Glucose [Mass/Vol] 153 mg/dL High 70-100 [facility] Comment on above: Result Comment: NORMAL <100 mg/dL PREDIABETES 101-126 mg/dL DIABETES 126 mg/dL or higher Performed By: #### A CBC, BMPF #### Testing performed at [address] [address] Potassium [Moles/Vol] 3.7 mmol/L Normal 3.5-5.1 [facility] Comment on above: Performed By: #### A CBC BMPF #### Testing performed at [address] [address] Sodium [Moles/Vol] 136 mmol/L Normal 136-145 [facility] Comment on above: Performed By: #### A CBC, BMPF #### Testing performed at [address] [address] Urea nitrogen [Mass/Vol] 16 mg/dL Normal 7-20 [facility] Comment on above: Performed By: #### A CBC, BMPF #### Testing performed at [address] [address] CBCon 10-11-2022 ABSOLUTE BAS 0.0 10*3/uL Normal 0.0-0.2 [facility] Comment on above: Performed By: #### A CBC, BMPF #### Testing performed at [address] [address] ABSOLUTE EOS 0.0 10*3/uL Normal 0.0-0.7 [facility] Comment on above: Performed By: #### A CBC, BMPF #### Testing performed at [address] [address] ABSOLUTE NEUTROPHIL COUNT 7.8 10*3/uL High 1.4-6.5 [facility] Comment on above: Performed By: #### A CBC, BMPF #### Testing performed at [address] [address] Basophils/100 WBC (Bld) 0.1 % Normal 0.0-2.0 [facility] Comment on above: Performed By: #### A CBC, BMPF #### Testing performed at [address] [address] DTYPE AUTO DIFF Normal [facility] Comment on above: Performed By: #### A CBC, BMPF #### Testing performed at [address] [address] Eosinophils/100 WBC (Bld) 0.1 % Normal 0.0-11.0 [facility] Comment on above: Performed By: #### A CBC, BMPF #### Testing performed at [address] [address] Erythrocyte distribution width (RBC) [Ratio] 12.8 % Normal 11.5-14.5 [facility] Comment on above: Performed By: #### A CBC, BMPF #### Testing performed at [address] [address] Hematocrit (Bld) [Volume fraction] 29.8 % Low 42.0-52.0 [facility] Comment on above: Performed By: #### A CBC, BMPF #### Testing performed at [address] [address] Hemoglobin (Bld) [Mass/Vol] 10.1 g/dL Low 14.0-18.0 [facility] Comment on above: Performed By: #### A CBC, BMPF #### Testing performed at [address] [address] Lymphocytes (Bld) [#/Vol] 0.8 10*3/uL Low 1.2-3.4 [facility] Comment on above: Performed By: #### A CBC, BMPF #### Testing performed at [address] [address] Lymphocytes/100 WBC (Bld) 8.4 % Low 20.0-55.0 [facility] Comment on above: Performed By: #### A CBC, BMPF #### Testing performed at [address] [address] MCH (RBC) [Entitic mass] 30.2 pg Normal 26.0-35.0 [facility] Comment on above: Performed By: #### A CBC, BMPF #### Testing performed at [address] [address] MCHC (RBC) [Mass/Vol] 33.8 g/dL Normal 27.0-37.0 [facility] Comment on above: Performed By: #### A CBC, BMPF #### Testing performed at [address] [address] MCV (RBC) [Entitic vol] 89.3 fL Normal 80.0-100.0 [facility] Comment on above: Performed By: #### A CBC, BMPF #### Testing performed at [address] [address] Monocytes (Bld) [#/Vol] 1.1 10*3/uL High 0.0-0.7 [facility] Comment on above: Performed By: #### A CBC, BMPF #### Testing performed at [facility] [address] [place] [address] Monocytes/100 WBC (Bld) 10.8 % High 0.0-10.0 [facility] Comment on above: Performed By: #### A CBC BMPF #### Testing performed at [address] [place] [address] Neutrophils/100 WBC (Bld) 80.6 % High 37.0-75.0 [facility] Comment on above: Performed By: #### A CBC, BMPF #### Testing performed at [address] [address] Platelet mean volume (Bld) [Entitic vol] 9.3 fL Normal 7.4-11.0 [facility] [place] Comment on above: Performed By: #### A CBC, BMPF #### Testing performed at [address] [address] Platelets (Bld) [#/Vol] 146 10*3/uL Normal 130.0-400.0 [facility] Comment on above: Performed By: #### A CBC, BMPF #### Testing performed at [address] [address] RBC (Bld) [#/Vol] 3.33 10*6/uL Low 4.0-6.1 [facility] Comment on above: Performed By: #### A CBC, BMPF #### Testing performed at [address] [address] WBC (Bld) [#/Vol] 9.7 10*3/uL Normal 3.6-11.0 [facility] Comment on above: Performed By: #### A CBC, BMPF #### Testing performed at [address] [address] CBC, EDIF, PLATELETon 2021 ABSOLUTE BASOPHIL COUNT 0.0 10*3/uL 0.0 - 0.2 10*3/uL [facility] Basophils/100 WBC (Bld) 0.1 % 0.0 - 2.0 % [facility] Differential cell count method Nom (Bld) AUTO DIFF % [facility] Eosinophils (Bld) [#/Vol] 0.0 10*3/uL 0.0 - 0.7 10*3/uL [facility] Eosinophils/100 WBC (Bld) 0.1 % 0.0 - 11.0 % [facility] Erythrocyte distribution width (RBC) [Ratio] 12.8 % 11.5 - 14.5 % [facility] Hematocrit (Bld) [Volume fraction] 29.8 % Low 42.0 - 52.0 % [facility] Hemoglobin (Bld) [Mass/Vol] 10.1 g/dL Low [facility] Interpretation and review of laboratory results Abnormal [facility] Lymphocytes (Bld) [#/Vol] 0.8 10*3/uL Low 1.2 - 3.4 10*3/uL [facility] Lymphocytes/100 WBC (Bld) 8.4 % Low 20.0 - 55.0 % [facility] MCH (RBC) [Entitic mass] 30.2 pg 26.0 - 35.0 PG [facility] MCHC (RBC) [Mass/Vol] 33.8 g/dL [facility] MCV (RBC) [Entitic vol] 89.3 fL [facility] Monocytes (Bld) [#/Vol] 1.1 10*3/uL High 0.0 - 0.7 10*3/uL [facility] Monocytes/100 WBC (Bld) 10.8 % High 0.0 - 10.0 % [facility] Neutrophils (Bld) [#/Vol] 7.8 10*3/uL High 1.4 - 6.5 10*3/uL [facility] Neutrophils/100 WBC (Bld) 80.6 % High 37.0 - 75.0 % [facility] Platelet mean volume (Bld) [Entitic vol] 9.3 fL [facility] Platelets (Bld) [#/Vol] 146 10*3/uL 130.0 - 400.0 10*3/uL [facility] RBC (Bld) [#/Vol] 3.33 10*6/uL Low 4.0 - 6.1 10*6/uL [facility] WBC (Bld) [#/Vol] 9.7 10*3/uL 3.6 - 11.0 10*3/uL [facility] NOVEL CORONAVIRUSon 10-10-20 22 NARRATIVE This test was perfor med using isothermal DALIA and has been approved as Emergency Use Authorization (EUA) for the qualitative detection [id number] nucleic acid. Normal [facility] Comment on above: Performed By: #### C OVID #### Testing performed at [address] [address] SARS-CoV-2 (COVID-19) RNA DALIA+probe Ql (Unsp spec) Not detected Normal NOT DETECTED [facility] Comment on above: Result Comment: Nega tive [...] #### C OVID #### Testing performed at [address] [address] NOVEL CORONAVIRUS LAB 1 - NA SOPHARYNGEALon 10-10-2022 NARRATIVE -1 This test was perfor med using isothermal DALIA and has been approved as Emergency Use Authorization (EUA) for the qualitative detection [id number] nucleic acid. [facility] SARS-CoV-2 (COVID-19) RNA DALIA+probe Ql (Unsp spec) Not detected NOT DETECTED [facility] Comment on above: Negative results do not [...] patient is critically ill or clinically deteriorating. [facility] RAPID TOX SCREEN,URINEon AMPHETAMINE Negative Normal NEGATIVE [facility] Comment on above: Result Comment: <500 ng/ml CUTOFF Performed By: #### R TOX #### Testing performed at [address] [place] [address] BARBITURATES Negative Normal NEGATIVE [facility] Comment on above: Result Comment: <200 ng/ml CUTOFF Performed By: #### R TOX #### Testing performed at [address] [place] [address] BENZODIAZEPINES Negative Normal NEGATIVE [facility] Comment on above: Result Comment: <150 ng/ml CUTOFF Performed By: #### R TOX #### Testing performed at [address] [place] [address] BUPRENORPHINE Negative Normal NEGATIVE [facility] Comment on above: Result Comment: <10 ng/ml CUTOFF Performed By: #### R TOX #### Testing performed at [address] [place] [address] CANNABINOIDS Positive Abnormal NEGATIVE [facility] [place] [facility] Comment on above: Result Comment: <50 ng/ml CUTOFF *Unconfirmed Screening Result* Unconfirmed screening results are to be used only for medical treatment purposes. Performed By: #### R TOX #### Testing performed at [address] [place] [address] COCAINE Negative Normal NEGATIVE [facility] Comment on above: Result Comment: <150 ng/ml CUTOFF Performed By: #### R TOX #### Testing performed at [address] [place] [address] METHADONE Negative Normal NEGATIVE [facility] Comment on above: Result Comment: <200 ng/ml CUTOFF Performed By: #### R TOX #### Testing performed at [address] [place] [address] METHAMPHETAMINE Negative Normal NEGATIVE [facility] Comment on above: Result Comment: <500 ng/ml CUTOFF Performed By: #### R TOX #### Testing performed at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 [address] Dr. Natty Daily Erythrocyte distribution width (RBC) [Ratio] 12.9 % Normal 11.0-15.0 [facility] Comment on above: Performed By: #### C BC #### [facility] [address] [place] [address] Dr. Natty Daily Hematocrit (Bld) [Volume fraction] 38.6 % Critically low 42.0-54.0 [facility] Comment on above: Performed By: #### C BC #### [facility] [address] [place] [address] Dr. Natty Daily Hemoglobin (Bld) [Mass/Vol] 13.1 g/dL Critically low 14.0-18.0 [facility] Comment on above: Performed By: #### C BC #### [facility] [address] [place] [address] Dr. Natty Daily IG # 0.09 10e3/ul Critically high 0.00-0.03 [facility] Comment on above: Performed By: #### C BC #### [facility] [address] [place] [address] Dr. aNtty Daily IG % 1.1 % Critically high 0.0-0.5 [facility] Comment on above: Performed By: #### C BC #### [facility] [address] [place] [address] Dr. Natty Daily LYMPH # 1.3 103/ul Normal 1.2-3.8 [facility] Comment on above: Performed By: #### C BC #### [facility] [address] [place] [address] Dr. Natty Daily Lymphocytes/100 WBC (Bld) 15.8 % Critically low 20.5-60.0 [facility] Comment on above: Performed By: #### C BC #### [facility] [address] [place] [address] Dr. Natty Daily MANUAL DIFF REQ NO Normal [facility] Comment on above: Performed By: #### C BC #### [facility] [address] [place] [address] Dr. Natty Daily MCH (RBC) [Entitic mass] 30.9 pg Normal 25.9-34.0 [facility] Comment on above: Performed By: #### C BC #### [facility] [address] [place] [address] Dr. Natty Daily MCHC (RBC) [Mass/Vol] 33.9 g/dL Normal 29.9-35.2 [facility] Comment on above: Performed By: #### C BC #### [facility] [address] [address] [address] Natty Daily MCV (RBC) [Entitic vol] 91.0 fL Normal 80.0-94.0 [facility] Comment on above: Performed By: #### C BC #### [facility] [address] [address] [address] Natty Daily MONO # 0.7 103/ul Normal 0.3-0.8 [facility] Comment on above: Performed By: #### C BC #### [facility] [address] [address] [address] Natty Daily Monocytes/100 WBC (Bld) 8.3 % Normal 1.7-12.0 [facility] Comment on above: Performed By: #### C BC #### [facility] [address] [address] [address] Natty Daily NEUT # 6.1 103/ul Normal 1.4-6.5 [facility] Comment on above: Performed By: #### C BC #### [facility] [address] [place] [address] Dr. Natty Daily Neutrophils/100 WBC (Bld) 74.6 % Normal 43.0-75.0 [facility] Comment on above: Performed By: #### C BC #### [facility] [address] [address] [address] Natty Daily Platelet mean volume (Bld) [Entitic vol] 9.5 fL Normal 9.5-13.5 [facility] Comment on above: Performed By: #### C BC #### [facility] [address] [place] [address] Dr. Natty Daily PLT 231 103/ul Normal 150-450 [facility] Comment on above: Performed By: #### C BC #### [facility] [address] [address] [address] Natty Daily RBC 4.24 106/ul Critically low 4.70-6.10 [facility] Comment on above: Performed By: #### C BC #### [facility] [address] [address] [address] Natty Daily WBC 8.1 103/ul Normal 4.0-11.0 [facility] Comment on above: Performed By: #### C BC #### [facility] [address] [place] [address] Dr. Natty Daily PROF 14(COMP METB)on 022 Albumin [Mass/Vol] 3.9 g/dL Normal 3.4-5.0 [facility] Comment on above: Performed By: #### C MP #### [facility] [address] [place] [address] Dr. Natty Daily Albumin/Globulin [Mass ratio] 1.2 {ratio} Normal [facility] Comment on above: Performed By: #### C MP #### [facility] [address] [place] [address] Dr. Natty Daily ALP [Catalytic activity/Vol] 58 U/L Normal 46-116 [facility] Comment on above: Performed By: #### C MP #### [facility] [address] [place] [address] Dr. Natty Daily ALT [Catalytic activity/Vol] 78 U/L Critically high 16-63 [facility] Comment on above: Performed By: #### C MP #### [facility] [address] [place] [address] Dr. Natty Daily Anion gap [Moles/Vol] 14.3 mmol/L Normal [facility] Comment on above: Performed By: #### C MP #### [facility] [address] [place] [address] Dr. Natty Daily AST [Catalytic activity/Vol] 39 U/L Critically high 15-37 [facility] Comment on above: Performed By: #### C MP #### [facility] [address] [place] [address] Dr. Natty Daily Bilirubin [Mass/Vol] 0.8 mg/dL Normal 0.2-1.0 [facility] Comment on above: Performed By: #### C MP #### [facility] [address] [place] [address] Dr. Natty Daily Calcium [Mass/Vol] 9.0 mg/dL Normal 8.5-10.1 [facility] Comment on above: Performed By: #### C MP #### [facility] [address] [place] [address] Dr. Natty Daily Chloride [Moles/Vol] 104 mmol/L Normal 98-107 [facility] Comment on above: Performed By: #### C MP #### [facility] [address] [place] [address] Dr. Natty Daily CO2 [Moles/Vol] 24.8 mmol/L Normal 21.0-32.0 [facility] Comment on above: Performed By: #### C MP #### [facility] [address] [place] [address] Dr. Natty Daily Creatinine [Mass/Vol] 0.77 mg/dL Normal 0.70-1.30 [facility] Comment on above: Performed By: #### C MP #### [facility] [address] [place] [address] Dr. Natty Daily EGFR-AF CUBAN >60 Normal >=60 [facility] Comment on above: Performed By: #### C MP #### [facility] [address] [place] [address] Dr. Natty Daily EGFR-NON AF CUBAN >60 Normal >=60 [facility] Comment on above: Performed By: #### C MP #### [facility] [address] [place] [address] Dr. Natty Daily Globulin (S) [Mass/Vol] 3.2 g/dL Normal [facility] Comment on above: Performed By: #### C MP #### [facility] [address] [address] [address] Natty Daily Glucose [Mass/Vol] 131 mg/dL Critically high 74-106 [facility] Comment on above: Performed By: #### C MP #### [facility] [address] [place] [address] Dr. Natty Daily Potassium [Moles/Vol] 4.1 mmol/L Normal 3.5-5.1 [facility] Comment on above: Performed By: #### C MP #### [facility] [address] [address] [address] Natty Daily Protein [Mass/Vol] 7.1 g/dL Normal 6.4-8.2 [facility] Comment on above: Performed By: #### C MP #### [facility] [address] [address] [address] Natty Daily Sodium [Moles/Vol] 139 mmol/L Normal 136-145 [facility] Comment on above: Performed By: #### C MP #### [facility] [address] [address] [address] Natty Daily Urea nitrogen [Mass/Vol] 22.0 mg/dL Critically high 7.0-18.0 [facility] Comment on above: Performed By: #### C MP #### [facility] [address] [address] [address] Natty Daily Urea nitrogen/Creatinine [Mass ratio] 28.6 mg/mg Normal [facility] Comment on above: Performed By: #### C MP #### [facility] [address] [address] [address] Natty Daily PROTIMEon 05-03-2022 INR Coag (PPP) [Relative time] 1.06 {INR} Normal [facility] Comment on above: Performed By: #### P T, PTT #### [facility] [address] [place] [address] Dr. Natty Daily INR GUIDELINES SEE BELOW Normal [facility] Comment on above: Result Comment: REEMA RED INR: 2.0 - 3.0 CONDITIONS NOT LISTED BELOW 2.5 - 3.5 FOR PROSTHETIC HEART VALVE REPLACEMENT 2.5 - 3.5 RECURRENT THROMBOSIS Performed By: #### P T, PTT #### [facility] [address] [address] [address] Natty Daily PT Coag (PPP) [Time] 11.4 s Normal 9.0-11.6 [facility] Comment on above: Performed By: #### P T, PTT #### [facility] [address] [place], [place] [id number] Dr. Natty Daily PTTon 05-03-2022 aPTT Coag (Bld) [Time] 25.6 s Normal 22.3-36.2 [facility] Comment on above: Performed By: #### P T, PTT #### [facility] [address] [address] [address] Natty Daily Tobacco Screening.on 022 Fall risk assessment a) No falls within the last year [facility] Work Phone: Tobacco use status [facility] b) No [facility] Work Phone: Blood Urea Nitrogenon 2020 Urea nitrogen [Mass/Vol] 21 mg/dL Normal 9-23 [facility] Comment on above: Performed By: #### C REAT, BUN #### [facility] [address] [place] [address] [place] Creatinineon 10-19-2021 Creatinine [Mass/Vol] 0.92 mg/dL Normal 0.64-1.27 [facility] Comment on above: Performed By: #### C REAT, BUN #### [place] [address] [place] Creatinine Clr Calc Pharmacy 86.54 [facility] Comment on above: Result Comment: PERF ORMED BY: [place] [address] PATHOLOGIST LITHOGRAPH PRESS OPERATOR TINWARE JAVID GRACIA M.D. Performed By: #### C REAT, BUN #### [place] [address] [place] Estimated GFR ( Jaida > 60 [facility] Comment on above: Result Comment: GFR estimated reference range: According to KDOQI guidelines, <60 ml/min/1.73m2 is sufficient to diagnose a patient with chronic kidney disease. Performed By: #### C REAT, BUN #### [place] [address] [place] Estimated GFR (Non- Am > 60 [facility] Comment on above: Performed By: #### C MAYCOL FOUNTAIN #### [facility] [address] [id number] [facility] MR prostate wo/w conon 10-19 MR prostate wo/w con [facility] [place] [address] [id number] MRI Report Signed Patient: Seth Bell MR#: [id number] : 1955 Acct:[id number] Age/Sex: 65 / M ADM Date: 10/19/21 Loc: MR Room: Type: [facility] Attending Dr: Ailyn Dunn MD Ordering [...] PM COT by: Asa Kline MD Diplomate, [place] [employer] Report Completed: Oct 19, [...] STAFF 10/19/21 1510 Signed By: 10/19/21 1522 [facility] Vital Signs Date Time Vital Sign Value Performing Clinician Facility 09-09-2024 09:41-0400 Body height 170.2 cm [facility] Phone: [facility] 09-09-2024 09:41-0400 Body mass index (BMI) [Ratio] 28.38 kg/m2 [facility] Phone: [facility] 09-09-2024 09:41-0400 Body weight 82.19 kg [facility] Phone: [facility] 09-09-2024 09:41-0400 Diastolic blood pressure 82 mm[Hg] Sarah Bella DO Work Phone: [facility] 09-09-2024 09:41-0400 Heart rate 51 /min Sarah Bella DO Work Phone: [facility] 09-09-2024 09:41-0400 Respiratory rate 14 /min Sarah Bella DO Work Phone: [facility] 09-09-2024 09:41-0400 Systolic blood pressure 142 mm[Hg] Sarahzoe Wareett DO Work Phone: [facility] 06-27-2024 13:12-0400 Blood Pressure Location Bonifacio NILL [facility] 06-27-2024 13:12-0400 Diastolic blood pressure 74 mm[Hg] Bonifacio NILL [facility] 06-27-2024 13:12-0400 Heart rate 45 /min Bonifacio NILL [facility] 06-27-2024 13:12-0400 Respiratory rate 16 /min Bonifacio NILL [facility] 06-27-2024 13:12-0400 Systolic blood pressure 134 mm[Hg] Bonifacio NILL [facility] 04-23-2024 08:22-0400 Diastolic blood pressure 71 mm[Hg] Bonifacio NILL [facility] 04-23-2024 08:22-0400 Heart rate 50 /min Bonifacio NILL [facility] 04-23-2024 08:22-0400 Respiratory rate 16 /min Bonifacio NILL [facility] 04-23-2024 08:22-0400 Systolic blood pressure 130 mm[Hg] Bonifacio NILL [facility] [place] 01-01-2024 12:00-0500 Blood Pressure Location Ailyn DUNN [facility] 01-01-2024 12:00-0500 Diastolic blood pressure 86 mm[Hg] Ailyn DUNN [facility] 01-01-2024 12:00-0500 Heart rate 70 /min Ailyn DUNN [facility] 01-01-2024 12:00-0500 Respiratory rate 16 /min Ailyn DUNN [facility] 01-01-2024 12:00-0500 Systolic blood pressure 122 mm[Hg] Ailyn DUNN [facility] 10-03-2023 10:00-0500 Body height 165.1 cm Stevan Ball Other [facility] [employer] Other 10-03-2023 10:00-0500 Body mass index (BMI) [Ratio] 32.71 kg/m2 Stevan Ball Other [facility] [employer] Other 10-03-2023 10:00-0500 Body weight 89.18 kg Stevan Ball Other [place] [employer] Other 10-03-2023 10:00-0500 Diastolic blood pressure 81 mm[Hg] Stevan Ball Other [place] [employer] Other 10-03-2023 10:00-0500 Respiratory rate 12 /min Stevan Ball Other [employer] Other 10-03-2023 10:00-0500 Systolic blood pressure 131 mm[Hg] Stevan Ball Other [employer] Other 06-08-2023 09:45-0400 Body height 165.1 cm Stevan Ball Other [employer] Other 06-08-2023 09:45-0400 Body mass index (BMI) [Ratio] 32.15 kg/m2 Stevan Ball Other [employer] Other 06-08-2023 09:45-0400 Body weight 87.64 kg Stevan Ball Other [employer] Other 06-08-2023 09:45-0400 Diastolic blood pressure 66 mm[Hg] Stevan Ball Other [employer] Other 06-08-2023 09:45-0400 Respiratory rate 12 /min Stevan Ball Other [employer] Other 06-08-2023 09:45-0400 Systolic blood pressure 99 mm[Hg] Stevan Ball Other [employer] Other 06-01-2023 11:38-0400 Body height 165.1 cm Mone Watson INFECTION CONTROL PREVENTIONIST-HAIR CUTTER Work Phone: [employer] 06-01-2023 11:38-0400 Body mass index (BMI) [Ratio] 32.78 kg/m2 Mone Watson INFECTION CONTROL PREVENTIONIST-HAIR CUTTER Work Phone: [employer] 06-01-2023 11:38-0400 Body temperature 97.39 [degF] Mone Watson INFECTION CONTROL PREVENTIONIST-HAIR CUTTER Work Phone: [employer] 06-01-2023 11:38-0400 Body weight 89.36 kg Mone Watson INFECTION CONTROL PREVENTIONIST-HAIR CUTTER Work Phone: [employer] 05-29-2023 14:15-0400 Body height 165.1 cm Stevan Ball Other [employer] Other 05-29-2023 14:15-0400 Body mass index (BMI) [Ratio] 32.58 kg/m2 Stevan Ball Other [employer] Other 05-29-2023 14:15-0400 Body weight 88.81 kg Stevan Ball Other [employer] Other 05-29-2023 14:15-0400 Diastolic blood pressure 79 mm[Hg] Stevan Ball Other [employer] Other 05-29-2023 14:15-0400 Respiratory rate 12 /min Stevan Ball Other [employer] Other 05-29-2023 14:15-0400 Systolic blood pressure 124 mm[Hg] Stevan Ball Other [employer] Other 05-09-2023 15:49-0400 Body temperature 98.6 [degF] Lazarus Coronado MD Work Phone: [employer] 05-09-2023 15:49-0400 Diastolic blood pressure 68 mm[Hg] Lazarus Coronado MD Work Phone: [employer] 05-09-2023 15:49-0400 Heart rate 71 /min Lazarus Coronado MD Work Phone: [employer] 05-09-2023 15:49-0400 Respiratory rate 16 /min Lazarus Coronado MD Work Phone: [employer] 05-09-2023 15:49-0400 SaO2% (BldA) [Mass fraction] 94 % Lazarus Coronado MD Work Phone: [employer] 05-09-2023 15:49-0400 Systolic blood pressure 138 mm[Hg] Lazarus Coronado MD Work Phone: [employer] 05-08-2023 07:10-0400 Body height 172.7 cm Lazarus Coronado MD Work Phone: [employer] 05-08-2023 07:10-0400 Body mass index (BMI) [Ratio] 29.63 kg/m2 Lazarus Coronado MD Work Phone: [employer] 05-08-2023 07:10-0400 Body weight 88.41 kg Lazarus Coronado MD Work Phone: [employer] 04-14-2023 10:00-0400 Body height 165.1 cm Stevan Ball Other [employer] Other 04-14-2023 10:00-0400 Body mass index (BMI) [Ratio] 33.24 kg/m2 Stevan Ball Other [employer] Other 04-14-2023 10:00-0400 Body weight 90.63 kg Stevan Ball Other [employer] Other 04-14-2023 10:00-0400 Diastolic blood pressure 93 mm[Hg] Stevan Ball Other [employer] Other 04-14-2023 10:00-0400 Respiratory rate 12 /min Stevan Ball Other [employer] Other 04-14-2023 10:00-0400 Systolic blood pressure 145 mm[Hg] Stevan Ball Other [employer] Other 03-23-2023 10:11-0400 Body height 170.2 cm Lazarus Coronado MD Work Phone: [employer] 03-23-2023 10:11-0400 Body mass index (BMI) [Ratio] 30.98 kg/m2 Lazarus Coronado MD Work Phone: [employer] 03-23-2023 10:11-0400 Body temperature 97.39 [degF] Lazarus Coronado MD Work Phone: [facility] 03-23-2023 10:11-0400 Body weight 89.72 kg Lazarus Coronado MD Work Phone: [facility] 12-05-2022 09:23-0500 Blood Pressure Location Ailyn DUNN [facility] 12-05-2022 09:23-0500 Diastolic blood pressure 88 mm[Hg] Ailyn DUNN [facility] 12-05-2022 09:23-0500 Heart rate 76 /min Ailyn DUNN [facility] 12-05-2022 09:23-0500 Respiratory rate 16 /min Ailyn DUNN [facility] 12-05-2022 09:23-0500 Systolic blood pressure 130 mm[Hg] Ailyn DUNN [facility] 10-11-2022 11:21-0500 Body temperature 98.4 [degF] Lazarus Coronado MD Work Phone: [facility] 10-11-2022 11:21-0500 Diastolic blood pressure 63 mm[Hg] Lazarus Coronado MD Work Phone: [facility] 10-11-2022 11:21-0500 Heart rate 61 /min Lazarus Coronado MD Work Phone: [facility] 10-11-2022 11:21-0500 Respiratory rate 16 /min Lazarus Coronado MD Work Phone: [facility] 10-11-2022 11:21-0500 SaO2% (BldA) [Mass fraction] 96 % Lazarus Coronado MD Work Phone: [facility] 10-11-2022 11:21-0500 Systolic blood pressure 106 mm[Hg] Lazarus Coronado MD Work Phone: [facility] 10-10-2022 13:00-0500 Body height 165.1 cm Lazarus Coronado MD Work Phone: [facility] 10-10-2022 13:00-0500 Body mass index (BMI) [Ratio] 30.79 kg/m2 Lazarus Coronado MD Work Phone: [facility] 10-10-2022 13:00-0500 Body weight 83.92 kg Lazarus Coronado MD Work Phone: [facility] 08-03-2022 14:13-0400 Body height 165.1 cm Lazarus Coronado MD Work Phone: [facility] 08-03-2022 14:13-0400 Body mass index (BMI) [Ratio] 30.65 kg/m2 Lazarus Coronado MD Work Phone: [facility] 08-03-2022 14:13-0400 Body temperature 97 [degF] Lazarus Coronado MD Work Phone: [facility] 08-03-2022 14:13-0400 Body weight 83.55 kg Lazarus Coronado MD Work Phone: [facility] 03-17-2022 15:18-0400 Body height 170.18 cm Stevan Galdamez Work Phone: AL-Phabjtkykqmqqr-Fw [place] Work Phone: 03-17-2022 15:18-0400 Body mass index (BMI) [Ratio] 32.26 kg/m2 Stevan Galdamez Work Phone: FF-Wkozyzvksqsszk-Dy [place] Work Phone: 03-17-2022 15:18-0400 Body surface area Derived from formula 2.05 m2 Stevan Galdamez Work Phone: ON-Rtxyqaoxjzuauq-Wk [place] Work Phone: 03-17-2022 15:18-0400 Body temperature 98.4 [degF] Stevan Galdamez Work Phone: RJ-Byxoeudusljrnz-Bv [place] Work Phone: 03-17-2022 15:18-0400 Body weight 93.44 kg Stevan Galdamez Work Phone: DW-Ujiwwqawribusp-Kg [place] Work Phone: 03-17-2022 15:18-0400 0 1 Stevan Galdamez Work Phone: WF-Dutrcxmvjfaabe-Mc [place] Work Phone: Comment on above: [employer] Encounters Encounter Date Encounter Type Care Provider Facility Start: 09-17-2024 End: 09-17-2024 ambulatory [facility] Start: 09-17-2024 End: 09-17-2024 [facility] Start: 09-09-2024 End: 09-09-2024 Bamboo flowsheet Sarah Bella DO Work Phone: [facility] Start: 09-09-2024 End: 09-09-2024 Bamboo flowsheet Sarah Bella DO Work Phone: [facility] Start: 09-09-2024 End: 09-09-2024 ambulatory SARAH HOOKS Not Available Start: 09-09-2024 End: 09-09-2024 Office outpatient new 45 minutes Sarah Bella DO Work Phone: [facility] Comment on above: Right inguinal herni a Start: 06-27-2024 End: 06-27-2024 ambulatory STEVAN GALDAMEZ Facility:[facility] Start: 06-27-2024 End: 06-27-2024 Patient encounter procedure Bonifacio FONSECADandre [facility] [place] Start: 05-29-2024 End: 05-29-2024 ambulatory Bonifacio FONSECADandre Facility:[id number] Start: 04-23-2024 End: 04-23-2024 ambulatory Bonifacio GRAVES Facility:[facility] Start: 04-23-2024 End: 04-23-2024 Patient encounter procedure Bonifacio Dee MARIANDandre [facility] [place] Start: 04-09-2024 ambulatory Bonifacio GRAVES Facility:[facility] Start: 03-20-2024 End: 03-20-2024 [facility] Start: 01-01-2024 End: 01-01-2024 ambulatory Ailyn R DUNN Facility:[facility] Start: 01-01-2024 End: 01-01-2024 Patient encounter procedure Ailyn DUNN [facility] [place] Start: 11-27-2023 End: 11-27-2023 ambulatory Stevan Ball Other [employer] Other Start: 11-27-2023 Office outpatient vi sit 15 minutes Stevan Ball [facility] Start: 11-27-2023 Telephone encounter Stevan Ball [facility] Start: 10-03-2023 End: 10-03-2023 ambulatory Stevan Ball Other [employer] Other Start: 10-03-2023 Office outpatient vi sit 25 minutes Stevan Ball [facility] Start: 09-21-2023 End: 09-21-2023 ambulatory Stevan Ball Other [employer] Other Start: 09-21-2023 Telephone encounter Stevan Ball [facility] Start: 09-04-2023 End: 09-04-2023 ambulatory Stevan Ball Other [employer] Other Start: 09-04-2023 Telephone encounter Stevan Ball [facility] Start: 09-01-2023 End: 09-01-2023 ambulatory Stevan Ball Other [employer] Other Start: 09-01-2023 Telephone encounter Stevan Ball [facility] Start: 08-28-2023 End: 08-28-2023 ambulatory Stevan Ball Other [employer] Other Start: 08-28-2023 Telephone encounter Stevan Ball [facility] Start: 08-17-2023 End: 08-17-2023 ambulatory Stevan Ball Other [employer] Other Start: 08-17-2023 Telephone encounter Stevan Ball [facility] Start: 08-10-2023 End: 08-10-2023 ambulatory Stevan Ball Other [employer] Other Start: 08-10-2023 Telephone encounter Stevan Ball [facility] Start: 08-08-2023 End: 08-08-2023 ambulatory Stevan Ball Other [employer] Other Start: 08-08-2023 Telephone encounter Stevan Ball [facility] Start: 07-12-2023 End: 07-12-2023 ambulatory Stevan Ball Other [employer] Other Start: 07-12-2023 Telephone encounter Stevan Ball [facility] Start: 07-07-2023 End: 07-07-2023 ambulatory Stevan Ball Other [employer] Other Start: 07-07-2023 Telephone encounter Stevan Ball [facility] Start: 06-13-2023 End: 06-13-2023 ambulatory Stevan Ball Other [employer] Other Start: 06-13-2023 Telephone encounter Stevan Ball [facility] Start: 06-08-2023 End: 06-08-2023 ambulatory Stevan Ball Other [employer] Other Start: 06-08-2023 Office outpatient vi sit 25 minutes Stevan Ball [facility] Start: 06-05-2023 End: 06-05-2023 ambulatory Stevan Ball Other [employer] Other Start: 06-05-2023 Telephone encounter Stevan Ball [facility] Start: 06-03-2023 End: 06-04-2023 ambulatory MD ALAN HENLEY Facility:[facility] Start: 06-02-2023 End: 06-02-2023 ambulatory Stevan Ball Other [employer] Other Start: 06-02-2023 Telephone encounter Stevan Ball [facility] Start: 06-01-2023 Telephone encounter Stevan Ball [facility] Start: 06-01-2023 End: 06-01-2023 ambulatory STEVAN BALL [employer] Other Start: 06-01-2023 End: 06-01-2023 Postop follow up visit related to original px Mone Watson INFECTION CONTROL PREVENTIONIST-HAIR CUTTER Work Phone: [facility] Comment on above: Hx of total knee art hroplasty, right (Primary Dx) Start: 05-29-2023 End: 05-29-2023 ambulatory Stevan Ball Other [employer] Other Start: 05-29-2023 Office outpatient vi sit 15 minutes Stevan Ball [facility] Start: 05-09-2023 End: 05-09-2023 ambulatory Stevan Ball Other [employer] Other Start: 05-09-2023 Telephone encounter Stevan Ball [facility] Start: 05-08-2023 End: 05-09-2023 ambulatory LAZARUS CORONADO [facility] Start: 05-08-2023 End: 05-09-2023 Subsequent hospital visit by physician Lazarus Coronado MD Work Phone: [facility] Comment on above: Osteoarthritis of ri ght knee Start: 04-14-2023 End: 04-14-2023 ambulatory Stevan Ball Other [employer] Other Start: 04-14-2023 Encounter for other preprocedural examination Stevan Galdamez [facility] Start: 04-14-2023 Office outpatient vi sit 25 minutes Stevan Galdamez [facility] Start: 04-13-2023 ambulatory [facility] Start: 04-13-2023 Encounter for other preprocedural examination [facility] Start: 04-11-2023 End: 04-11-2023 ambulatory Stevan Galdamez Other [employer] Other Start: 04-11-2023 Telephone encounter Stevan Galdamez [facility] Start: 03-24-2023 End: 03-25-[address] STEVAN GALDAMEZ Facility:[facility] Start: 03-23-2023 ambulatory [facility] Start: 03-23-2023 ambulatory [facility] Start: 03-23-2023 End: 03-23-2023 Subsequent hospital visit by physician Mone MORRISON Work Phone: [facility] Start: 03-23-2023 End: 03-23-2023 Office outpatient visit 40 minutes Lazarus Coronado MD Work Phone: [facility] Comment on above: Hx of total hip arth roplasty, left (Primary Dx); Right knee pain, unspecified chronicity Start: 03-23-2023 End: 03-23-2023 Subsequent hospital visit by physician Lazarus Coronado MD Work Phone: [facility] Start: 02-23-[address] STEVAN GALDAMEZ Facili ty:[facility] Start: 12-05-2022 End: 12-05-2022 Patient encounter procedure Ailyn DUNN [facility] Start: 12-03-2022 End: 12-04-2022 ambulatory AILYN DUNN Facility:[facility] Start: 11-03-2022 ambulatory STEVAN GALDAMEZ [facility] Start: 11-03-2022 End: 11-03-2022 Subsequent hospital visit by physician Mone Watson INFECTION CONTROL PREVENTIONIST-HAIR CUTTER Work Phone: [facility] Start: 10-27-2022 End: 10-28-[address] ANETA DUNN . Facility:[facility] Start: 10-10-2022 End: 10-11-2022 ambulatory [facility] Start: 10-10-2022 End: 10-11-2022 Encounter for preprocedural laboratory examination [facility] Start: 10-10-2022 End: 10-11-2022 Patient encounter status Lazarus Coronado MD Work Phone: [facility] Start: 10-10-2022 End: 10-11-2022 Subsequent hospital visit by physician Lazarus Coronado MD Work Phone: [facility] Comment on above: Primary osteoarthrit is of left hip Start: 09-27-2022 Pre-procedure evalua tion luiz Galdamez Other [employer] Other Start: 09-15-2022 ambulatory [facility] Start: 08-03-2022 ambulatory [facility] Start: 08-03-2022 ambulatory [facility] Start: 08-03-2022 End: 08-03-2022 Office outpatient new 60 minutes Lazarus Coronado MD Work Phone: [facility] Comment on above: Left hip pain (Prima ry Dx) Start: 08-03-2022 End: 08-03-2022 Subsequent hospital visit by physician Lazarus Coronado MD Work Phone: [facility] Start: 07-23-2022 Adult health examination Milan Galdamez Other [employer] Other Start: 07-21-2022 End: 07-22-[address] STEVAN GALDAMEZ Facility:[facility] Start: 06-15-2022 End: 06-16-[address] STEVAN GALDAMEZ Facility:[facility] Start: 05-05-2022 Encounter for preprocedural cardiovascular examination DR DOCTOR GILL [facility] Start: 05-05-2022 Encounter for preprocedural laboratory examination DR DOCTOR GILL [facility] Start: 05-04-2022 End: 05-21-[address] STEVAN GALDAMEZ Facility:[facility] Start: 05-03-2022 End: 05-04-[address] DOCTOR GILL Facility:[facility] Start: 05-03-2022 End: 05-04-2022 Encounter for preprocedural cardiovascular examination DR DOCTOR GILL Facility:[facility] Start: 03-17-2022 Office outpatient ne w 45 minutes Stevan Galdamez Work Phone: TS-Dcpsjzzgkcjiph-Fdrp lake Work Phone: Evaluation finding tSevan hernandez Work Phone: PB-Bzhsaqpizpinaa-Lklw lake Work Phone: Procedures Date Procedure Procedure Detail Performing Clinician Start: 05-29-2024 Colonoscopy Sarah Hooks DO Work Phone: Start: 05-29-2024 Colonoscopy Bonifacio GRAVES Start: 05-09-2023 Basic metabolic panel calcium total Shahzad Whiting MD Work Phone: Start: 05-09-2023 Complete blood count with white cell differential, automated Mone Watson INFECTION CONTROL PREVENTIONIST-HAIR CUTTER Work Phone: Start: 05-08-2023 Radiologic examination knee 1/2 views Mone Watson APRN-HAIR CUTTER Work Phone: Start: 05-08-2023 End: 05-08-2023 Arthrp kne condyle&platu medial&lat compartments Lazarus Coroando MD Work Phone: Start: 05-08-2023 Cultyp nuc acid amp prb cult/isolate ea orgnism Shahzad Whiting MD Work Phone: Start: 04-20-2023 Arthroplasty of knee Ailyn DUNN Start: 12-03-[address] STEVAN GALDAMEZ Comment on above: Performed By: #### PSAD #### [facility] [address] [place], [place] [id number] Dr. Natty Daily Start: 10-11-2022 Basic metabolic panel calcium total Shahzad Whiting MD Work Phone: Start: 10-11-2022 Complete blood count with white cell differential, automated Mone Watson INFECTION CONTROL PREVENTIONIST-HAIR CUTTER Work Phone: Start: 10-10-2022 Radiologic examination pelvis 1/2 views Monewilfredo Watson INFECTION CONTROL PREVENTIONIST-HAIR CUTTER Work Phone: Start: 10-10-2022 End: 10-10-2022 Arthrp acetblr/prox fem prostc agrft/algrft Lazarus Coronado MD Work Phone: Start: 10-10-2022 Drug test prsmv read direct optical obs pr date Fabian Masters DO Work Phone: Start: 10-10-2022 Blood group typing, RH phenotyping Lazarus Coronado MD Work Phone: Start: 10-10-2022 Sars-cov-2 detection by dna/rna Mone Bertrand montoya INFECTION CONTROL PREVENTIONIST-HAIR CUTTER Work Phone: Start: 11-20-2021 Repair of hip [...] Treatment Date Care Activity Detail Author Start: 05-29-2034 Screening for malignant neoplasm of colon [facility] Start: 12-20-2024 ambulatory Ambulatory Facility:[facility] Start: 05-08-2024 End: 05-08-2024 Patient encounter procedure 05/08/2024 9:00 AM EDT Office Visit [facility] [address] [place] [id number] Mone Watson, INFECTION CONTROL PREVENTIONIST-HAIR CUTTER [address] [place] [id number] [facility] Start: 07-21-2023 Influenza vaccination A [facility] Start: 06-01-2023 End: 06-01-2023 Patient encounter procedure 06/01/2023 11:40 AM EDT Office Visit [facility] [address] [place] [id number] Mone Watson, INFECTION CONTROL PREVENTIONIST-HAIR CUTTER [address] [place] [id number] [facility] Start: 04-13-2023 End: 04-13-2023 ambulatory 04/13/2023 Pre-Operative Nurse Assessment Internal Medicine [facility] Start: 03-08-2023 End: 03-08-2023 Patient encounter procedure 03/08/2023 Office Visit Orthopaedics Lazarus Coronado MD [address] [place] [address] [facility] Start: 11-03-2022 End: 11-03-2022 Patient encounter procedure 11/03/2022 Office Visit Orthopaedics Mone Watson, INFECTION CONTROL PREVENTIONIST-HAIR CUTTER [address] [place] [address] [facility] Start: 09-15-2022 End: 09-15-2022 ambulatory 09/15/2022 Pre-Operative Nurse Assessment Internal Medicine [facility] Start: 08-03-2022 End: 08-03-2023 XR Pelvis 2 Views [facility] Work Phone: Comment on above: 1 Occurrences starti ng 08/03/2022 until 08/03/2022 Expected: 08/03/2022 , Expires: 08/03/2023 Start: 07-21-2022 Influenza vaccination INFLUENZA VACC INE (#1) [facility] Start: 06-03-2022 POV, Provider: Jamie Rojas, Status: Pen, Time: 9:45 AM POV, Provider: Jamie Rojas, Status: Pen, Time: 9:45 AM FD-Jqvinajudgswty-Nwc tlake Work Phone: Start: 05-12-2021 COVID-19 VACCINE (3 - Booster for Pfizer series) COVID-19 VACCINE (3 - Booster for Pfizer series) [facility] Start: 05-12-2021 COVID-19 VACCINE (3 - Pfizer series) COVID-19 VACCINE (3 - Pfizer series) [facility] Start: 07-09-2020 Pneumococcal vaccination PNEUMOCOCCAL VACCINE SERIES (2 - PPSV23 if available, else PCV20) [facility] Start: 07-09-2020 Pneumococcal Vaccine : 65+ Years (2 of 2 - PPSV23 or PCV20) Pneumococcal Vaccine: 65+ Years (2 of 2 - PPSV23 or PCV20) [facility] Start: 2018 Abdominal aortic aneurysm screening ABDOMINAL AORTIC ANEURYSM HIGH RISK SCREEN [facility] Start: 2018 Pneumococcal vaccination PNEUMOCOCCAL VACCINE SERIES (1 - PCV) [facility] Start: 2003 Prostate specific antigen measurement PROSTATE CANCER SCREENING DISCUSSION [facility] Start: 2003 Zoster vaccine hzv live for subcutaneous use ZOSTER (SHINGLES) VACCINE (1 of 2) [facility] Start: 1998 Colonoscopy COLORECTAL CAN CER SCREENING DISCUSSION [facility] Start: 1998 Screening for malignant neoplasm of colon COLORECTAL CANCER SCREENING DISCUSSION [facility] Start: 1993 Fasting lipid profile LIPID SCREENIN G [facility] Start: 1993 Lipid panel LIPID SCREENING [facility] Start: 1972 Third diphtheria, tetanus and acellular pertussis (DTaP) vaccination TDAP (ADULT) [facility] Start: 1971 Tetanus vaccination TETANUS [facility] Start: 04-20-1954 COVID-19 VACCINE (#1) COVID-19 VACCI NE (#1) [facility] Start: 1953 Hepatitis C antibody , confirmatory test HEPATITIS C VIRUS SCREENING [facility] Start: 1953 Hepatitis C screening HEPATITI S C VIRUS SCREENING [facility] Start: 1953 Screening for malignant neoplasm of colon [facility] Start: 1953 Tetanus vaccination TETANUS [facility] Radiography for bone length studies XR BONE LENGTH STUDY Imaging Routine Right knee pain, unspecified chronicity 03/23/2023 11:04 AM EDT [facility] Work Phone: End: 10-10-2022 RF Unspecified body region Views during surgery [facility] Comment on above: One Time for 1 Occur rences starting 10/10/2022 until 10/10/2022 SURGICAL PATHOLOGY REQUEST SURGICAL PATHOLOGY REQUEST Surg Path Routine Primary osteoarthritis of left hip Release Upon Ordering for 1 Occurrences starting 10/10/2022 [facility] Comment on above: Release Upon Orderin g for 1 Occurrences starting 10/10/2022 SURGICAL PATHOLOGY REQUEST SURGICAL PATHOLOGY REQUEST Surg Path Routine Primary osteoarthritis of right knee Release Upon Ordering for 1 Occurrences starting 05/08/2023 [facility] Comment on above: Release Upon Orderin g for 1 Occurrences starting 05/08/2023 XR Knee - right 3 Views XR KNEE RIGHT 3 VIEWS Imaging Routine Hx of total knee arthroplasty, right 06/01/2023 11:26 AM EDT [employer] XR Knee - right 4 Views [employer] Work Phone: Comment on above: Ordered: 03/23/2023 XR Pelvis and Hip - left Views XR HIP WITH PELVIS LEFT Imaging Routine Left hip pain 08/03/2022 2:08 PM EDT [employer] Work Phone: XR Pelvis and Hip - left Views XR HIP WITH PELVIS LEFT Imaging Routine Hx of total hip arthroplasty, left 11/03/2022 10:44 AM EST [facility] XR Pelvis and Hip - left Views XR HIP WITH PELVIS LEFT Imaging Routine Hx of total hip arthroplasty, left Ordered: 03/07/2023 [employer] Comment on above: Ordered: 03/07/2023 Immunizations Immunization Date Immunization Notes Care Provider Tiffanie daugherty 10-03-2023 influenza, high dose seasonal, preservative-free Stevan Galdamez Other [employer] Other 09-27-2022 influenza, high dose seasonal, preservative-free Stevan Galdamez Other [employer] Other 09-27-2022 influenza virus vaccine, split virus (incl. purified surface antigen) Stevan Galdamez Other [employer] Other 08-20-2021 influenza virus vaccine, split virus (incl. purified surface antigen) Stevan Galdamez Other [employer] Other 03-17-2021 SARS-CoV-2 (COVID-19 ) mRNA BNT-162b2 fam DUNN [facility] 02-24-2021 SARS-CoV-2 (COVID-19 ) mRNA BNT-162b2 fam DUNN [facility] 11-20-2020 SARS-CoV-2 (COVID-19 ) mRNA BNT-162b2 vax Ailyn DUNN [facility] Comment on above: Result Comment: pt i s fully vaccinated but does not have his card with him 08-19-2020 influenza virus vaccine, split virus (incl. purified surface antigen) Stevan Galdamez Other [employer] Other 10-29-2019 tetanus and diphther ia toxoids, adsorbed, preservative free, for adult use (5 Lf of tetanus toxoid and 2 Lf of diphtheria toxoid) Stevan Galdamez Other [employer] Other 07-09-2019 pneumococcal conjuga te vaccine, 13 valent Stevan Galdamez Other [employer] Other 07-09-2019 pneumococcal Conjuga te, unspecified formulation; 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: [Need for prophylactic vaccination against Streptococcus pneumoniae (pneumococcus)] Stevan Galdamez Other [employer] Other Payers Date Payer Category Payer Private Health Insurance 2021 Private Health Insurance [facility] 2021 Unknown 2020 Medicare [id number] 1961 Medicare [id number] 1959 Private Health Insurance [facility] [id number] 1953 Unknown [id number] 2.16.84 [id number] 1953 Unknown [id number] 2.16.84 [id number] 1953 Unknown [id number] 2.16.84 [id number] 1953 Unknown [id number] 2.16.84 [id number] 1953 Unknown [id number] 2.16.84 0.1.203159.3.579.2.593 1953 Unknown [id number] 2.16.84 [id number] 1953 Unknown [id number] 2.16.84 0.1.410177.3.579.2.593 1953 Unknown [id number] 2.16.84 0.1.503294.3.579.2.593 1953 Unknown [id number] 2.16.8 [id number] 1953 Unknown [id number] 2.16.8 40.1.087144.3.579.2.983 1953 Unknown [id number] 2.16.8 40.1.697933.3.579.2.983 1953 Unknown [id number] 2.16.8 40.1.113282.3.579.2.983 1953 Unknown [id number] 2.16.8 [id number] 1953 Unknown [id number] 2.16.8 40.1.951554.3.579.2.983 1953 Unknown [id number] 2.16.8 [id number] 1955 Unknown [id number] 2.16.8 40.1.968626.3.579.2.983 1955 Unknown [id number] 2.16.8 40.1.109544.3.579.2.983 1955 Unknown [id number] 2.16.8 40.1.574727.3.579.2.983 1955 Unknown [id number] 2.16.8 40.1.890337.3.579.2.983 1955 Unknown [id number] 2.16.8 40.1.259887.3.579.2.983 1955 Unknown [id number] 2.16.8 40.1.049444.3.579.2.983 1955 Unknown [id number] 2.16.8 40.1.975686.3.579.2.983 1955 Unknown [id number] 2.16.8 40.1.403139.3.579.2.983 1955 Unknown [id number] 2.16.84 0.1.547456.3.579.2.1259 1955 Unknown [id number] 2.16.8 40.1.086150.3.579.2.727 1955 Unknown [id number] 2.16.8 40.1.560888.3.579.2.727 1955 Unknown [id number] 2.16.8 40.1.811164.3.579.2.727 1955 Unknown [id number] 2.16.8 40.1.274094.3.579.2.727 1955 Unknown [id number] 2.16.8 40.1.223000.3.579.2.727 1955 Unknown [id number] 2.16.8 40.1.407089.3.579.2.727 Social History Date Type Detail Facility Start: 05-09-2023 End: 06-01-2023 Former smoker Former smoker [facility] Work Phone: Start: 08-03-2022 End: 06-27-2024 Tobacco smoking status NHIS Ex-smoker [facility] End: 11-20-1988 History of tobacco use Cigarette Smoker [facility] Start: 08-03-2022 End: 06-01-2023 Alcohol intake Current drinker of alcohol (finding) [facility] Start: 08-03-2022 History SDOH Alcohol Comment daily [facility] Start: 1955 Sex Assigned At Not on file A [facility] End: 11-20-1988 History of tobacco use Current smoker [facility] Start: 09-13-2022 End: 04-04-2023 Tobacco use and exposure Smokeless tobacco non-user [facility] Start: 09-30-2022 End: 05-08-2023 Exposure to SARS-CoV-2 (event) Not sure [facility] Tobacco smoking status Never [facility] Start: 05-09-2023 End: 06-01-2023 Sex Assigned At Male [facility] Start: 04-04-2023 Alcohol Comment hard cider daily [facility] Tobacco smoking status NHIS Tobacco smoking consumption unknown [facility] Medical Equipment Procedure Code Equipment Code Equipment Origin al Text Equipment Identifier Dates Bi Mentum Liner [id number] Start: 10-10-2022 22 gauge needle, See Instructions, 12 EA, 1, Use 2 needles per month, one to draw up and one for injection, [id number], Supply, 179, cm, 06/05/20 11:23:00 EDT, Height/Length Measured, 88, kg, 06/05/20 11:23:00 EDT, Weight Measured Start: 06-19-2020 Insert - Knee - [id number] Start: 05-08-2023 22 gauge needle, See Instructions, [...] to draw up and one for injection, [id number], Supply, 179, cm, 06/05/20 11:23:00 EDT, Height/Length Measured, 88, kg, 06/05/20 11:23:00 EDT, Weight Measured Start: 06-19-2020 Functional Status Date Assessment Result Facility 06-27-2024 Functional Status N/A [facility] [place] 04-23-2024 Functional Status N/A [facility] [place] 01-01-2024 Functional Status N/A [facility] 12-05-2022 Functional Status N/A [facility] Clinical Notes 03-17-2022 to 09-09-2024 Sarah Hooks DO - 09/09/2024 9:30 AM EDT Note Date & Type Note Facility 09-09-2024 History of Present illness Narrative General Surgery H&P Seth Bell 1955 Seth Bell is a 68 y.o. male presents with chief complaint of Hernia (Patient presents with right inguinal hernia. Patient states he has had it for more than a month. Patient states he has pain. Has had CT scan. Bulge is mainly in the abdomen but pain also in scrotum. Denies hx of excessive weight loss. Denies fevers, chills, or sweats. Denies nausea or vomiting. Discussed surgery and risks for robotic assisted laparoscopic right inguinal hernia repair with mesh procedure. Patient would like to proceed with surgery. He understands the no heavy lifting or vigorous exercise for 6 weeks after the procedure. SUBJECTIVE: MEDICATIONS: ALLERGIES Current Outpatient Medications Medication Instructions aspirin (ASPIR) 81 mg, Once atorvastatin (Lipitor) 80 MG tablet 1 tablet, Every evening buPROPion XL (Wellbutrin XL) 150 MG 24 hr tablet 1 tablet, Daily finasteride (Proscar) 5 MG tablet 1 tablet, Daily metoprolol succinate XL (Toprol-XL) 50 MG 24 hr tablet 1 tablet, Daily pantoprazole (PROTONIX) 40 mg, Daily before breakfast tamsulosin (FLOMAX) 0.4 mg, 2 times daily traZODone (Desyrel) 50 MG tablet 1 tablet, Nightly No Known Allergies PAST MEDICAL HISTORY: SOCIAL HISTORY SURGICAL HISTORY: No past medical history on file. No past surgical history on file. No family history on file. No Known Allergies No past surgical history on file. Tobacco Use: Medium Risk (06/01/2023) Received from [facility] Patient History Smoking Tobacco Use: Former Smokeless Tobacco Use: Never Passive Exposure: Not on file Alcohol Use: Not on file Depression: Not on file Physical Activity: Not on file REVIEW OF SYMPTOMS: Review of Systems All other systems reviewed and are negative. 10 systems were reviewed. Positives noted above. Remainder are negative per CMS guidelines OBJECTIVE: Visit Vitals BP 142/82 (BP Location: Right arm) Pulse 51 Resp 14 Ht 5' 7 Wt 181 lb 3.2 oz BMI 28.38 kg/m BSA 1.97 m Physical Exam Vitals reviewed. General: AAOx3, NAD Head: atraumatic normocephalic Neck: trachea midline. No masses or lymphadenopathy Heart: Regular rate and rhythm Lungs: equal chest rise and fall, non labored breathing Abdomen: soft, non distended right inguinal hernia noted with reducible contents, mild tenderness to deep palpation, no skin changes Ext: motor 5/5 all extremities with no gross deformities Psych: alert and oriented, behavior appropriate ASSESSMENT AND PLAN: Assessment/Plan Diagnoses and all orders for this visit: Right inguinal hernia Patient informed of the risks of robotic assisted laparoscopic right inguinal hernia repair with mesh procedure which include but not limited to bleeding, scarring, damage to nearby structures, chronic pain, wound healing issues, possible need for more procedures and risks of anesthesia. Patient understood risks and signed informed consent. Will schedule at patient's earliest convenience. He needs cardiac and PCP clearance. He understands this. Thank you, Margareth Hooks DO documented in this encounter [facility] 06-27-2024 Note General Surgery Offi ce/Clinic Note Chief Complaint consultation for inguinal hernia HPI Staff 68 year old male presents on consultation from Dr. Galdamez for right inguinal hernia. Reports increasing right inguinal pain over 3-4 weeks. Pain intensifies with activity. He is wearing an abdominal binder which has been assisting in supporting area and reducing discomfort. He notes a bulge but is unsure if bulge is constant vs intermittent. Denies nausea, vomiting or bowel changes. No imaging completed. History of Present Illness 68 yo female with h/o CAD, htn, hypercholesterolemia, lumbar radiculopathy, GERD, CYNTHIA, referred for right groin pain, possible hernia; patient was lifting heavy bag of cement and developed pain in right groin, burning ache, worse with activity and standing/sitting, relieved with lying down; possible slight bulge in area, no skin changes, no N/V or bowel changes, no fevers; only abd operation umbilical herniorrhaphy; recent colonoscopy with diffuse diverticular disease. taking occasional ibuprofen with some relief. abd binder to lower abd provides some relief as well when active. Review of Systems PHQ Score Initial Depression [...] noncontributory. Physical Exam Vitals & Measurements HR: 45(Peripheral) RR: 16 BP: 134/74 HT: 65 in HT: 165 cm WT: 80.1 kg WT: 176.22 lb BMI: 29.42 HEENT: normal conjunctiva, sclera clear, no scleral icterus, EOM intact, PERRLA, oral mucosa moist without lesions. Neck: trachea midline, no mass, symmetric, no thyromegaly or nodules, no adenopathy Respiratory: lungs CTA, respirations non labored. Cardiovascular: regular rate and rhythm, no murmur, no pedal edema or varicosities. Gastrointestinal: soft, non distended,point tender over right pubic tubercle, no skin changes, no mass, small reducible cord lipoma, no palpable hernias, diastasis recti no, no hepatosplenomegaly; normal bs Lymphatic: no cervical adenopathy, no supraclavicular adenopathy, no inguinal adenopathy. Musculoskeletal: abnormal gait, kyphosis; digits and nails without infection, nodes, cyanosis, clubbing. Skin: no rashes, no lesions, no ulcers, no subcutaneous nodules, induration. Psychiatric/Neuro: oriented to time, place, person, judgement normal, affect appropriate for age, insight intact, no focal deficits. Tests: review of old records completed , Assessment/Plan 1. Right groin pain, (R10.31: Right lower quadrant pain)Right lower quadrant abdominal pain likely groin strain; recommend NSAIDs with food; ice prn; avoid strenuous activities; due to development of pain several days after colonoscopy, and known severe diverticulosis, will obtain abd/pelvic ct scan with contrast for further evaluation of other etiologies, and to evaluate for occult hernia; will call patient with results; call sooner if problems/questions. Ordered: Creatinine CT Abdomen/Pelvis w/ Contrast E&M of Est. Patient High 40-54 Min 72918 3. 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 Patient High 40-54 Min 76631 Follow-up No qualifying data available Problem List/Past Medical History Ongoing BMI 29.0-29.9,adult Coronary atherosclerosis Depression Diverticulosis Elevated PSA Enlarged prostate with urinary obstruction Erectile dysfunction Familial hypercholesterolemia Former smoker GERD (gastroesophageal reflux disease) Hearing loss Heart disease Hematuria Hypercholesterolemia Hyperlipidemia Hypertension Hypogonadism male Lipoma of spermatic cord Lumbar radiculopathy Lumbar spondylosis Microscopic hematuria Nocturia CYNTHIA (obstructive sleep apnea) Overweight Proteinuria Retrograde ejaculation Right groin pain RLS (restless legs syndrome) Screening for malignant neoplasm (more content not included)... [facility] Comment on above: Result Comment: Elec tronically Signed By: ELY SHEETS, Bonifacio Duarte\Date and Time Signed: 06/27/24 14:57 EDT 04-23-2024 Note Chief Complaint consultation for colonoscopy [...] mg Cap, 0.4 (more content not included)... [facility] Comment on above: Result Comment: Elec tronically Signed By: ELY SHEETS, Bonifacio Duarte\Date and Time Signed: 04/23/24 09:05 EDT 03-20-2024 Note Patient here for 1 y ear follow up CAD, hypertension, and hyperlipidemia. Denies chest pain, SOB, palpitations, and lightheadedness/syncope. He was admitted in May 2023 for upper GI bleed. Doing very well since then. [facility] 03-20-2024 Note [place] Cardiology Note HPI Chief Complaint: Seth Bell [...] discussed target range. Coronary artery disease involving [place] coronary artery of [place] heart without angina pectoris Patient adamantly denies [...] -Follow-up in cardiology clinic Joaquim Chaudhary MD [place] Interventional Cardiology [facility] 01-01-2024 Hospital Discharge instructions Patient Education [...] treatment? Where to find more information [employer]: www.cancer.org [employer] [employer]: www.auanet.org Contact a health care [...] provider. Document Revised: 05/02/2022 Document Reviewed: 05/02/2022 [employer] Patient Education 2022 [employer]. Follow Up Care 12/05/2022 10:43:19 With:SHAUN SHEETS, Ailyn Dee, URL Address: [facility] [address] , [place] [address]- [phone] When:Within 1 Year(s) Comments:w/ PSA [facility] Марина 11-27-2023 Evaluation note Encounter Date Diagnosis [...] I25.10) Increases risk for more severe infection [facility] Other 01-08-2024 Evaluation note* Encounter Date Diagnosis Assessment Notes Treatment Notes Treatment Clinical Notes Nov, COVID-19 (ICD-10 - U07.1) [facility] Other 11-14-2023 Evaluation note* Encounter Date Diagnosis [...] normal. Active lifestyle, looking forward to hunting. [facility] Other 11-02-2023 Evaluation note* Encounter Date Diagnosis Assessment Notes Treatment Notes Treatment Clinical Notes Sep, Acute blood loss anemia (ICD-10 - D62) [facility] Other 09-28-2023 Evaluation note* Encounter Date Diagnosis Assessment Notes Treatment Notes Treatment Clinical Notes Jul, ASHD (arteriosclerot ic heart disease) (ICD-10 - I25.10) Jul, Pure hypercholestero lemia (ICD-10 - E78.00) [facility] Other 09-21-2023 Evaluation note* Encounter Date Diagnosis Assessment Notes Treatment Notes Treatment Clinical Notes Jul, Primary hypertension (ICD-10 - I10) [facility] Other 07-20-2023 Evaluation note* Encounter Date Diagnosis [...] bleed, resume after holding for 2 wks [facility] Other 07-17-2023 Evaluation note* Encounter Date Diagnosis Assessment Notes Treatment Notes Treatment Clinical Notes May, Acute blood loss anemia (ICD-10 - D62) [facility] Other 07-14-2023 Evaluation note* Encounter Date Diagnosis Assessment Notes Treatment Notes Treatment Clinical Notes May, Nausea (ICD-10 - R11.0) [facility] Other 07-13-2023 Evaluation note* Encounter Date Diagnosis Assessment Notes Treatment Notes Treatment Clinical Notes May, Bilateral carotid bruits (ICD-10 - R09.89) [facility] Other 07-13-2023 History of Present illness Narrative* Kayley Lisa LPN - 06/01/2023 11:40 AM EDT Ortho Nurse - Established Patient Intake Room#: 5 Date: 06/01/2023 11:43 AM Patient: Seth Bell MR#: [id number] : 1955 Age: 67 y.o. 3 wks [...] Hyperlipidemia 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 CYTNHIA (obstructive sleep apnea) Sciatica, right side Past [...] by Nasal route once for 1 dose. Ophelia into the nose as directed. Call 911. [...] by Nasal route once for 1 dose. Ophelia into the nose as directed. Call 911. [...] has No Known Allergies. * Mone Watson APRN-HAIR CUTTER - 06/01/2023 11:40 AM EDT HPI: Seth [...] understanding. All pertinent portions of the clinical technical support 1 software engineer documentation was reviewed and agree. PRINCE Yo Ortho Nurse - Established Patient Intake Room#: 5 Date: 06/01/2023 11:43 AM Patient: Seth Bell MR#: [id number] : 1955 Age: 67 y.o. 3 wks [...] by Nasal route once for 1 dose. Ophelia into the nose as directed. Call 911. [...] by Nasal route once for 1 dose. Ophelia into the nose as directed. Call 911. [...] has No Known Allergies. [facility] Miscellaneous Notes* Nursing Notes - Keira [...] by Keira GUTIERREZ, unable to scan in [employer] due to connectivity issues. * Op Note - Lazarus Coronado MD - 05/09/2023 8:25 AM EDT DATE OF PROCEDURE: May 08, 2023 ATTENDING PHYSICIAN: Lazarus Coronado M.D. MANAGER TAX: Mone Watson CNP PREOPERATIVE DIAGNOSIS: Severe right [...] I referenced this against the flexion gap, Yalobusha's line, and the epicondylar axis as well. I then used an anterior referencing stylus and sized it to a size 7. At this point then, the 4:1 cutting block was pinned into place, and all four cuts were performed. The f lexion space was opened up with the lamina check viewer, and the medial and lateral menisci were [...] of motion and anatomic tracking at the [place] patella. Thus, the patella itself was flipped [...] without the assistance of a skilled surgical assist. A surgical assist was medically necessary for positioning, retraction and [...] OPERATIVE/PROCEDURE NOTE Seth Bell 67 y.o. male [id number] SURGEON Surgeon(s) and Role: * Lazarus Coronado MD - Primary MANAGER TAX PRINCE Yo ANESTHESIOLOGIST AGATE SETTER: MEAGAN SteeleAGATE SETTER; MERRY Hutchinson SURGICAL STAFF Chemical Engineering Technologist: Shelley Brown RN; Debi Wiggins RN Nurse Practitioner: PRINCE Yo Scrub Person: Sarita Lizama RN Grinder Set Up Operator: Mahesh Armstrong LPN PROCEDURE PERFORMED Procedure(s) (LRB): [...] Implant Name Type Inv. Item Serial No. Production Support Specialist Lot No. LRB No. Used Action PALACOS R 1 X 40 US - [id number] PALACOS R 1 X 40 US [id number] Right 2 Implanted PATELLA - KNEE - [id number] PATELLA - KNEE [id number] Right 1 Implanted FEMUR - KNEE - [id number] FEMUR - KNEE [id number] Right 1 Implanted Attune Knee System Tibial Base Fixed Bearing DEPUY [id number] Right 1 Implanted INSERT - KNEE - [id number] INSERT - KNEE [id number] Right 1 Implanted SPECIMENS ID Type Source Tests Collected by Time Destination 1 : Bone RIght Knee Permanent TISSUE SURGICAL PATHOLOGY REQUEST Lazarus Coronado MD 05/08/2023 0914 PRINCE Yo May 08, 2023 10:20 AM documented in this encounterMet[facility] Nurse Note* Nursing Notes - Keira Qiu RN - 05/09/2023 3:41 PM EDT Discharge instructions and education reviewed with pt and his daughter, education provided for dx and new medications, printed education given, denies any questions. Hemovac care reviewed. HOLLY hose, ABDs, and ice packs provided. Meds to beds with integrity seal intact provided. [facility] History of Present illness Narrative* Asa Malik PTA - 05/09/2023 12:08 PM EDT 05/09/23 1037 [...] Supine to Sit, Rehab Eval Level of [place]: Supine/Sit supervision Transfer Skill: Sit To Stand, Rehab Eval [place] (Sit-Stand Transfers) contact guard Physical Assist/Nonphysical Assist: Sit/Stand 1 person assist Weight-Bearing Restrictions: Sit/Stand weight-bearing as tolerated Assistive Device For Transfer: Sit/Stand 2 wheeled walker Gait Skills, PT Eval Level of [place]: Gait contact guard Physical Assist/Nonphysical Assist: Gait 1 person assist Weight-Bearing Restrictions: Gait weight-bearing as tolerated Assistive Device For Transfer: Gait 2 wheeled walker Gait Distance (125ft x2) Gait Analysis, PT Eval Gait Pattern Used swing-through gait Gait Deviations Identified (Gait) decreased win;decreased gait speed;decreased step length;decreased stride length Impairments Contributing To Gait Deviations impaired balance;pain;decreased ROM;decreased strength Stair Negotiation [place] Level: Stair Negotiation contact guard assist Physical [...] Patient to go to outpatient therapy at [facility] tomorrow at 4:30 pm. Patient informed [...] Hyperlipidemia 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 CYNHTIA (obstructive sleep apnea) Sciatica, right side Existing [...] Equipment Available straight cane;wheeled walker;shower chair;elevated toilet seat;sock-aid;goggles assembler;long-handled shoe horn;dressing stick;long handle sponge Cognitive Status [...] Supine to Sit, Rehab Eval Level of [place]: Supine/Sit stand-by assist Physical Assist/Nonphysical Assist: Supine/Sit 1 person assist Transfer Skill: Sit to Stand, Rehab Eval Level of [place]: Sit/Stand contact guard Physical Assist/Nonphysical Assist: Sit/Stand 1 person assist Weight-Bearing Restrictions: Sit/Stand weight-bearing as tolerated Assistive Device for Transfer: Sit/Stand wheeled walker Upper Body Dressing Level of [place] independent Physical Assist/Nonphysical Assist set-up required Lower Body Dressing Level of [place] maximum assist (25% patients effort) Physical Assist/Nonphysical Assist 1 person assist Toileting Level of [place] contact guard Physical Assist/Nonphysical Assist 1 person assist Grooming [place] Level (Grooming) wash face, hands;contact guard assist [...] as needed Therapist Information License # [id number] 1. Pt will complete LB dressing MOD [...] Supine to Sit, Rehab Eval Level of [place]: Supine/Sit stand-by assist Physical Assist/Nonphysical Assist: Supine/Sit 1 person assist;verbal cues Transfer Skill: Sit To Stand, Rehab Eval [place] (Sit-Stand Transfers) contact guard Physical Assist/Nonphysical Assist: Sit/Stand 1 person assist;verbal cues Weight-Bearing Restrictions: Sit/Stand weight-bearing as tolerated Assistive Device For Transfer: Sit/Stand 2 wheeled walker Gait Skills, PT Eval Level of [place]: Gait contact guard Physical Assist/Nonphysical Assist: Gait [...] strength;impaired motor control;impaired postural control Stair Negotiation [place] Level: Stair Negotiation not tested Sensory Examination [...] PT to follow Therapist Information License # [id number] * Brittani Honeycutt RN - 05/08/2023 12:01 PM EDT Patient was assessed in [facility] on 04/13/23. Met with patient, spouse and daughter for follow up after surgery to discuss discharge plan. Patient plans to return home with spouse and would to like go to outpatient therapy at [facility]. Patient has a wheeled walker and denies any equipmentneeds at this time. Nursing reports that the incision has been closed with dermabond with hemovac in place, will request a 3 week follow up appointment. Patient denies any other questions or needs atthis time. Referral information faxed to [facility] OP Therapy, appointment scheduled for 05/10/23 [...] (184 lb) 10/10/22 83.9 kg (185 lb) Arthur body weight: 68.4 kg (150 lb 12.7 [...] afternoon appointment d/t transportation issues on Monday. [facility] contacted and appointment time changed. Will fax updated information to OP rehab after patient has had surgery. Will continue to follow up with patient and family for discharge needs. * Jazmyne Cardona LPN - 04/13/2023 11:54 AM EDT 04/13/23 1152 Referral Information Arrived From home or self-care Information Source Information Source patient Contact Information Pay Clerk Name Brittani Honeycutt RN Case Manager's Living [...] with spouse and have OP therapy at [facility], phone number is [phone], patient prefers late morning appointment. Patient has a FW wheeled walker, in addition to raised toilet seat, railing and shower chair. Patient denies any other questions or needs at thistime. CM to continue to follow and assist with discharge plans. documented in this encounterMet[facility] Nurse Note* Nursing Notes - Keira Qiu RN - 05/09/2023 11:57 AM EDT Assessment is complete and remains unchanged from previous at this time with any exceptions noted in the flowsheet. Patient denies further needs and is left with call light and personals in reach. [id number] [id number] Nurse Note* Nursing Notes - Lily Gill RN - 05/09/2023 11:42 AM EDT Patient is admitted to Med Surg floor BPeSA [id number] Nurse Note* Nursing Notes - Galilea Rodrigues [...] Medhat to be discharged home later today. [facility]06-20-2023 Nurse Note* Nursing Notes - Diamond Alves RN - 05/09/2023 8:31 AM EDT Oxycodone 10 mg verified by this RN and administered to patient by Keira GUTIERREZ, unable to scan in [facility] due to connectivity issues. [facility]06-20-2023 Surgery Postoperative evaluation and management note* Op Note - Lazarus Coronado MD - 05/09/2023 8:25 AM EDT DATE OF PROCEDURE: May 08, 2023 ATTENDING PHYSICIAN: Lazarus Coronado M.D. MANAGER TAX: Mone Watson CNP PREOPERATIVE DIAGNOSIS: Severe right [...] I referenced this against the flexion gap, Yalobusha's line, and the epicondylar axis as well. I then used an anterior referencing stylus and sized it to a size 7. At this point then, the 4:1 cutting block was pinned into place, and all four cuts were performed. The flexion space was opened up with the lamina check viewer, and the medial and lateral menisci were [...] of motion and anatomic tracking at the [place] patella. Thus, the patella itself was flipped [...] without the assistance of a skilled surgical assist. A surgical assist was medically necessary for positioning, retraction and instrume ntation. [employer] Work Phone: 1(988) 917-513606-20-2023 Hospital course Narrative* Shahzad Whiting MD - [...] by Nasal route once for 1 dose. Ophelia into the nose as directed. Call 911. [...] per tablet Commonly known as: PERCOCET Follow-up: [facility] ext: [phone] Follow up on 05/10/2023 Outpatient therapy appointment scheduled for Monday at 4:30 pm, please arrive at 4:15 pm for theregistration process. Bring insurance cards and photo ID. Upcoming Appointments (up to five)-Some appointments for Medical Center outpatient clinics or diagnostic testing locations are not displayed below Provider Department Dept Phone 06/01/2023 11:40 AM [facility] [phone] documented in this encounter[facility]* Nursing Notes - Denise [...] Call light and bedside table within reach. [facility]06[facility]19[facility] Nurse Note* Nursing Notes - Denise Treviño [...] Call light and bedside table within reach. [facility]06-19-2023 Consult note* Shahzad Whiting MD - 05/08/2023 [...] Laterality: Left; Surgeon: Lazarus Coronado MD; Location: [facility] OR BACK SURGERY 2015 x2 NECK [...] minutes total time. Shahzad Whiting MD 05/08/2023 [facility]06-19-2023 Consult note* Shahzad Whiting MD - 05/08/2023 [...] Laterality: Left; Surgeon: Lazarus Coronado MD; Location: [facility] OR BACK SURGERY 2016 x2 NECK [...] Shahzad Whiting MD 05/08/2023 documented in this encounterMet[facility] Nurse Note* Nursing Notes - Keira Qiu RN - 05/08/2023 3:00 PM EDT Assessment is complete and remains unchanged from previous at this time with any exceptions noted in the flowsheet. Patient denies further needs and is left with call light and personals in reach. [facility] Nurse Note* Nursing Notes - Keira Qiu [...] light and personals inreach, family at bedside. [facility] Nurse Note* Chyna Atkins RN - 05/08/2023 10:50 AM EDT Patient discharged from PACU. Patient transported via bed to room 3752. Bed in lowest position calllight within reach. No other complaints at this time. Report given to Keira GUTIERREZ. * Debi Wiggins RN - 05/08/2023 9:11 AM EDT OR 4 Temp: 66.0' Hum: 42.0% documented in this encounterMet[facility]23 Nurse Surgical operation note* Chyna Atkins RN - 05/08/2023 10:50 AM EDT Patient discharged from PACU. Patient transported via bed to room 3752. Bed in lowest position calllight within reach. No other complaints at this time. Report given to Keira GUTIERREZ. [facility] Hospital Discharge instructions* Discharge Instructions* Keira Qiu [...] - 05/08/2023 10:46 AM EDT Contact Office ([phone]) if: > Total Knee ROM < 90 [...] Home Care, please call Dr. Coronado's nurse ([phone]) the morning after discharge with the recorded [...] be sent through Care Everywhere. * celecoxib (Maltese) * docusate (oral/rectal) (Maltese) * oxycodone (Maltese) documented in this [facility]06-19-2023 Surgery Postoperative evaluation and management note* Brief Op Note - PRINCE Yo - 05/08/2023 10:19 AM EDT POST OPERATIVE/PROCEDURE NOTE Seth Bell 67 y.o. male [id number] SURGEON Surgeon(s) and Role: * Lazarus Coronado MD - Primary MANAGER TAX PRINCE Yo ANESTHESIOLOGIST AGATE SETTER: MERRY Steele; MERRY Hutchinson SURGICAL STAFF Chemical Engineering Technologist: Shelley Brown RN; Debi Wiggins RN Nurse Practitioner: PRINCE Yo Scrub Person: Sarita Lizama RN Grinder Set Up Operator: Mahesh Armstrong LPN PROCEDURE PERFORMED Procedure(s) (LRB): [...] Implant Name Type Inv. Item Serial No. Production Support Specialist Lot No. LRB No. Used Action PALACOS R 1 X 40 US - [id number] PALACOS R 1 X 40 US [id number] Right 2 Implanted PATELLA - KNEE - [id number] PATELLA - KNEE [id number] Right 1 Implanted FEMUR - KNEE - [id number] FEMUR - KNEE [id number] Right 1 Implanted Attune Knee System Tibial Base Fixed Bearing DEPUY [id number] Right 1 Implanted INSERT - KNEE - [id number] INSERT - KNEE [id number] Right 1 Implanted SPECIMENS ID Type Source Tests Collected by Time Destination 1 : Bone RIght Knee Permanent TISSUE SURGICAL PATHOLOGY REQUEST Lazarus Coronado MD 05/08/2023 0914 Mone Watson APRN-HAIR CUTTER May 08, 2023 10:20 AM [facility]06-19-2023 Nurse Surgical operation note* Debi Wiggins RN - 05/08/2023 9:11 AM EDT OR 4 Temp: 66.0' Hum: 42.0% [facility]05-26-2023 Evaluation note* Encounter Date Diagnosis Assessment Notes [...] knee (ICD-10 - M17.11) Scheduled for TKA [facility] Other 05-04-2023 History of Present illness Narrative* Sneha Busby LPN - 03/23/2023 10:00 AM EDT Ortho Nurse - Established Patient Intake Room#: 2--Visit today is a 4 month post-op check of Left MIKE (D/A)--10-10-22. His pain today is a 6. Has complaints of stiffness. Date: 03/23/2023 10:20 AM Patient: Seth Bell MR#: [id number] : 1955 Age: 67 y.o. Referring Physician: [...] a right total knee arthroplasty for optimal jail management. Patient is also here today for [...] joint space, subchondral sclerosis, osteophyte formation, and tquf-ui-fiez contact. AP hip and pelvis films demonstrate [...] of limb, and ultimately loss of life. assisted expectations, risks and general implant survivorship were also discussed. Despite these risks, the patient would like to proceed with surgical planning. Today, we will initiate the pre- surgical process including nasal MRSA screening, scheduling an appointment for [facility] and the potential surgical date, and reviewing [...] 03/23/2023 10:20 AM Patient: Seth Bell MR#: [id number] : 1955 Age: 67 y.o. Referring Physician: [...] has No Known Allergies. documented in this encounterMet[facility]01-[facility]23 Hospital Discharge instructions Patient Education 12/05/2022 08:07:53 [...] urethra. Follow these instructions at home: Take bxyg-gvn-ffofzhq and prescription medicines only as told by [...] 11/06/2006 Document Revised: 10/01/2019 Document Reviewed: 12/11/2017 [employer] Patient Education 2020 [employer]. Follow Up Care 12/03/2021 10:50:50 With:SHAUN SHEETS, TOO Duffy Address: [facility] [address] , [place] [address]- When: Unknown [facility] 12-08-2022 NoteCONSULTATION CONSULTATION DATE: 10/27/2022 HISTORY OF PRESENT ILLNESS: This is a 67-year-old gentleman returning to the clinic for a three month follow up for his chronic lower back pain and hip pain. Since his last visit in July, the patient had a left total hip replacement and is overall doing wonderful. It was completed at [facility] in [place] by Dr. Coronado. The patient is recovering [...] in three months' time unless otherwise indicated.The [facility] [id number] Miscellaneous Notes* Nursing Notes - Keira Qiu [...] 10/10/2022 ATTENDING PHYSICIAN: Lazarus Coronado M.D. MANAGER TAX: Mone Watson CNP. PREOPERATIVE DIAGNOSES: 1. Severe [...] INDICATIONS: Seth is an established patient of [employer]. She is a very pleasant, 66-year-old female [...] induced. The patient was repositioned on the Felton table for anterior hip surgery. The operative [...] and then secured its position with the Felton table lift. With adequate exposure of the [...] without the assistance of a skilled surgical assist. A surgical assist was medically necessary for positioning, retraction and [...] 10/10/2022 1:00 PM EST Report received from SPIKE MACHINE OPERATOR. Patient hooked up to tele and vitals at this time. Call light within reach and bed in low position. * Brief Op Note - PRINCE Yo - 10/10/2022 11:42 AM EST POST OPERATIVE/PROCEDURE NOTE Seth Bell 66 y.o. male [id number] SURGEON Surgeon(s) and Role: * Lazarus Coronado MD - Primary MANAGER TAX PRINCE Yo ANESTHESIOLOGIST AGATE SETTER: MERRY Rodriguez SURGICAL STAFF Chemical Engineering Technologist: Imelda Gilbert RN; Lisa Bueno RN Nurse Practitioner: PRINCE Yo Ceiling Installer: Don Snider; Refugio De Leon PROCEDURE PERFORMED [...] Implant Name Type Inv. Item Serial No. Production Support Specialist Lot No. LRB No. Used Action bi mentum press fit cup [id number] Left 1 Implanted femoral stem sz 6 DEPUY [id number] Left 1 Implanted femoral head 28mm DEPUY [id number] Left 1 Implanted bi mentum liner DEPUY [id number] Left 1 Implanted SPECIMENS ID Type Source Tests Collected by Time Destination 1 : left femoral head Permanent TISSUE SURGICAL PATHOLOGY REQUEST Lazarus Coronado MD 10/10/2022 1045 PRINCE Yo October 10, 2022 11:42 AM * Nursing Notes - Brittani Honeycutt RN - 09/15/2022 10:07 AM EDT 09/15/22 1004 Information Source Information Source patient ;child Contact Information Pay Clerk Name Brittani Honeycutt RN Case Manager's Living [...] assist with discharge plans. documented in this encounterMet[facility]11-22-2022 Note* Nursing Notes - Keira Qiu RN - 10/11/2022 1:22 PM EST Patient is discharging home with belongings at this time. [facility]11-22-2022 Note* Nursing Notes - Lily [...] foradditional questions Staff Provider office contact: NA [facility]11-22-2022 Note* Nursing Notes - Ly Lynn RN - 10/11/2022 12:39 PM EST Discharge instructions and education reviewed with pt, education provided for dx and new medications, printed education given, denies any questions, IV removed. Extra ABDs, ice packs and holly hose given to patient. Meds to bed with integrity seal intact given to patient also. [facility]11-22-[facility] History of Present illness Narrative* Oriaan Menendez RPH - 10/11/2022 12:14 PM EST [...] LE in reclincer: QS,GS,SAQ,AP, heel slide, LAQ [id number] ea. Pt trans sit to stand Patricia [...] 08/03/22 83.6 kg (184 lb 3.2 oz) Arthur body weight: 61.5 kg (135 lb 9.3 [...] Dietitian, Licensed Dietitian 10/11/22 * Mone Watson APRN-HAIR CUTTER - 10/11/2022 6:52 AM EST Total Joint [...] 0 Equipment Available wheeled walker;shower chair;elevated toilet seat;sock-aid;goggles assembler;long-handled shoe horn;long handle sponge Cognitive Status Examination Orientation Status (Cognition) oriented x 4 Level of Consciousness alert Able to Follow Commands (Communication) WNL Personal Safety and Judgment intact Sensory Examination Sensory Examination WFL Range of Motion (ROM) Range of Motion Examination bilateral upper extremity ROM was WFL Manual Muscle Testing (MMT) Dominant Hand right Transfer Skill: Sit to Stand, Rehab Eval Level of [place]: Sit/Stand contact guard Physical Assist/Nonphysical Assist: Sit/Stand 1 person assist Weight-Bearing Restrictions: Sit/Stand weight-bearing as tolerated Assistive Device for Transfer: Sit/Stand wheeled walker Upper Body Dressing Level of [place] independent Physical Assist/Nonphysical Assist set-up required Lower Body Dressing Level of [place] moderate assist (50% patients effort) Physical Assist/Nonphysical [...] for this session. Pt educated on utilizing goggles assembler and sock aid for LB dressing techniques Continue care plan yes Goals Goals For Discharge Pt will return home Discussed risk / benefits with patient;patient's family Therapist Recommendations At Discharge Recommendations OT Services not recommended at Discharge Plan Plan for next session continue with bathing, dressing, bathroom transfers and hygiene training Therapist Information License # [id number] 1. Pt will complete LB dressing MOD [...] Supine to Sit, Rehab Eval Level of [place]: Supine/Sit stand-by assist Physical Assist/Nonphysical Assist: Supine/Sit 1 person assist Transfer Skill: Sit To Stand, Rehab Eval [place] (Sit-Stand Transfers) contact guard Physical Assist/Nonphysical Assist: Sit/Stand 1 person assist Weight-Bearing Restrictions: Sit/Stand weight-bearing as tolerated Assistive Device For Transfer: Sit/Stand 2 wheeled walker Gait Skills, PT Eval Level of [place]: Gait contact guard Physical Assist/Nonphysical Assist: Gait [...] on acute pain regimen. documented in this [facility]11-22-2022 Note* Nursing Notes - Ly Lynn RN - 10/11/2022 10:52 AM EST Assessment is complete and remains unchanged from previous at this time with any exceptions noted in the flowsheet. Patient denies further needs and is left with call light and personals in reach. Will continue to monitor. [facility] Hospital course Narrative* Shahzad Whiting MD - [...] Use Authorization (EUA) for the qualitative detection [id number]-6 nucleic acid. XR FLUORO < 1 HOUR [...] Department Dept Phone 11/03/2022 10:40 AM [facility] [phone] documented in this [facility]11-22-2022 Note* Op Note - Lazarus Coronado MD - 10/11/2022 7:33 AM EST DATE OF PROCEDURE: 10/10/2022 ATTENDING PHYSICIAN: Lazarus Coronado M.D. MANAGER TAX: Mone Watson CNP. PREOPERATIVE DIAGNOSES: 1. Severe [...] INDICATIONS: Seth is an established patient of [employer] [facility]. She is a very pleasant, 66-year-old female [...] induced. The patient was repositioned on the Felton table for anterior hip surgery. The operative [...] and then secured its position with the Felton table lift. With adequate exposure of the [...] without the assistance of a skilled surgical assist. A surgical assist was medically necessary for positioning, retraction and instrum entation. [employer] Work Phone: [phone] 874-143311-22-2022 Note* Nursing Notes - Felecia Carrera RN - 10/11/2022 2:58 AM EST Pt assessment remains unchanged. Pt c/o 8-9/10 pain to L. Hip. Pt states pain is stinging. Dilaudid given- see MAR. Pt ambulated to BR to void at this time. Ice pack changed and applied to L. Hip. Denies any further needs at this time. Call light within reach. [employer]11-22-2022 Note* Nursing Notes - Felecia Carrera RN - 10/11/2022 12:31 AM EST Pt assessment remains unchanged. Pt c/o 5/10 pain to L. Hip. Medication given - see MAR. Fresh ice pack applied to L. Hip. Denies any further needs at this time. Call light within reach. [employer]11-21-2022 Note* Nursing Notes - Felecia Carrera RN - 10/10/2022 8:29 PM EST Pt assessment complete. POC reviewed with pt. Pt states pain to L.hip is 5/10. Medication given- see MAR. Ice pack applied to L. Hip. Denies any further needs at this time. Call light within reach. [employer]11-21-2022 Consult note* Shahzad Whiting MD - 10/10/2022 [...] Use Authorization (EUA) for the qualitative detection xaNEUX-XeQ-6 nucleic acid. XR FLUORO < 1 HOUR [...] - sleep apnea. Shahzad Whiting MD 10/10/2022 [facility]11-21-2022 Consult note* Shahzad Whiting MD - 10/10/2022 6:17 PM ESTCho[facility] Talihinaated Order(s): IP CONSULT TO GENERAL MEDICINE Medical [...] Use Authorization (EUA) for the qualitative detection [id number] nucleic acid. XR FLUORO < 1 HOUR [...] Shahzad Whiting MD 10/10/2022 documented in this encounterMet[facility]11-21-2022 Note* Nursing Notes - Ly Lynn RN - 10/10/2022 3:22 PM EST Assessment is complete and remains unchanged from previous at this time with any exceptions noted in the flowsheet. Patient denies further needs and is left with call light and personals in reach. Will continue to monitor. [facility]11[facility] Hospital Discharge instructions* Discharge Instructions* Keira Qiu [...] - 10/10/2022 2:47 PM EST Contact Office ([phone]) if: > Total Knee ROM < 90 [...] be sent through Care Everywhere. * celecoxib (Maltese) * docusate (oral/rectal) (Maltese) * oxycodone (Maltese) documented in this encounterMetro[facility]11-21-2022 Note* Nursing Notes - Ly Lynn RN - 10/10/2022 1:00 PM EST Report received from SPIKE MACHINE OPERATOR. Patient hooked up to tele and vitals at this time. Call light within reach and bed in low position. [facility]11-[facility] Nurse Note* Diamond Barillas RN - 10/10/2022 12:45 PM EST Discharged from PACU in stable condition. Transported via bed to room 3754 Bed placed in lowest position. Call light within reach. Report given to Jared RN documented in this encounterMetro[facility]11-21-2022 Nurse Surgical operation note* Diamond Barillas RN - 10/10/2022 12:45 PM EST Discharged from PACU in stable condition. Transported via bed to room 3754 Bed placed in lowest position. Call light within reach. Report given to Jared RN [facility]11-21-2022 Note* Brief Op Note - PRINCE Yo - 10/10/2022 11:42 AM EST POST OPERATIVE/PROCEDURE NOTE Seth Bell 66 y.o. male [id number] SURGEON Surgeon(s) and Role: * Lazarus Coronado MD - Primary MANAGER TAX PRINCE Yo ANESTHESIOLOGIST AGATE SETTER: MERRY Rodriguez SURGICAL STAFF Chemical Engineering Technologist: Imelda Gilbert RN; Lisa Bueno RN Nurse Practitioner: PRINCE Yo Ceiling Installer: Don Snider; Refugio De Leon PROCEDURE PERFORMED [...] Implant Name Type Inv. Item Serial No. Production Support Specialist Lot No. LRB No. Used Action bi mentum press fit cup [id number] Left 1 Implanted femoral stem sz 6 DEPUY [id number] Left 1 Implanted femoral head 28mm DEPUY [id number] Left 1 Implanted bi mentum liner DEPUY [id number] Left 1 Implanted SPECIMENS ID Type Source Tests Collected by Time Destination 1 : left femoral head Permanent TISSUE SURGICAL PATHOLOGY REQUEST Lazarus Coronado MD 10/10/2022 1045 Mone Watson, INFECTION CONTROL PREVENTIONIST-HAIR CUTTER October 10, 2022 11:42 AM [facility] [employer]10-27-2022 Note* Nursing Notes - Brittani Honeycutt RN - 09/15/2022 10:07 AM EDT 09/15/22 1004 Information Source Information Source patient ;child Contact Information Pay Clerk Name Brittani Honeycutt RN Case Manager's Living [...] to follow and assist with discharge plans. [facility] [id number] History of Present illness Narrative* Sneha Busby [...] 08/03/2022 2:26 PM Patient: Seth Bell MR#: [id number] : 1955 Age: 66 y.o. Referring Physician: [...] [x]cane, []bracing Are you followed by a textile screen printer? [x] [] Name: [facility] cariology group Are you followed by pain [...] a left total hip arthroplasty for optimal jail management. PHYSICAL EXAM: This is an alert, [...] of jointspace, subchondral sclerosis, osteophyte formation, and vpih-zl-csiw contact. Available radiographsfrom 08/2021 appeared normal. IMPRESSION: [...] of limb, and ultimately loss of life. long term expectations, risks and general implant survivorship were also discussed. Despite these risks, the patient would like to proceed with surgical planning. Today, we will initiate the pre-surgical process including nasal MRSA screening, scheduling an appointment for [facility] and the potential surgical date, and reviewing [...] Rfl: Not on File documented in this [facility]09-01-2022 NoteCONSULTATION CONSULTATION DATE: 07/21/2022 HISTORY OF [...] 08/18/[address] Lazarus Coronado at [facility], with the intention of moving [...] following his appointment with Dr. Coronado in [place] regarding his hip consultation. He will be seen in the clinic in three months' time unless otherwise indicated.The [facility] [id number] NotePROCEDURE DETAILS Preoperative Diagnosis: 1. Conductive hearing loss 2. Otosclerosis Postoperative Diagnosis: 1. Conductive hearing loss 2. Otosclerosis Surgeon: Bob Resident/Fellow/Other Job Service Consultant: Zeenat Procedure: 1. Left stapedectomy Estimated Blood [...] of operating microscope. Surgeon: Jamie Rojas MD Job Service Consultant surgeon: Leila Epperson MD Anesthesia: General Endotracheal. [...] mm, 360-degree Eclipse nitinol-based piston [place] was then placed and crimped onto [...] was awakened and tr (more content not included)...[facility] 05-11-2022 NoteHistory & Physical Reviewed: [...] Completion Last Updated: 11-May-2022 10:07 by Jamie Rojas)[facility]04-28-2022 NoteDiagnoses/Problems Blood tests prior to [...] This note was created using speech recognition marine steam fitter software/or [employer] marine steam fitter services. Despite proofreading, several typographical errors might be present that might affect the meaning of the content. Please call with any questions. By signing my name below, I, Amie Lowe, (more content not included)... TouchworksEvaluation + Plan note Future Appointments Appointment Date:12/08/2023 08:30:00 AM Scheduled Provider:Ailyn DUNN MD Location:[facility] Appointment Type:URO Office Visit Diagnostic Tests Pending * PSA Total 12/05/22 [facility] evaluation + Plan note Future Appointments Appointment Date:12/20/2024 08:30:00 AM Scheduled Provider:Ailyn DUNN MD Location:[facility] Appointment Type:URO Office Visit Diagnostic Tests Pending * PSA Total 01/01/24 [facility] evaluation + Plan note Future Appointments Appointment Date:12/20/2024 08:30:00 AM Scheduled Provider:Ailyn DUNN MD Location:[facility] Appointment Type:URO Office Visit [facility] evaluation + Plan note Future Appointments Appointment Date:12/20/2024 08:30:00 AM Scheduled Provider:Ailyn DUNN MD Location:[facility] Appointment Type:URO Office Visit Future Scheduled Tests Laboratory* Creatinine 06/27/24 [facility] evaluation note* Diagnosis Left hip pain Pain in joint, pelvic region and thigh documented in this encounter [facility] System[facility] note* Diagnosis Left hip pain- Primary Pain in joint, pelvic region and thigh documented in this encounter [facility] SystemEvaluation note* Diagnosis Postoperative wound infection of left hip- Primary Other postoperative infection Preop testing Preoperative examination, unspecified Encounter for preoperative screening laboratory testing for COVID-19 virus Primary osteoarthritis of left hip Primary localized osteoarthrosis, pelvic region and thigh Primary osteoarthritis of left hip Primary localized osteoarthrosis, pelvic region and thigh documented in this encounter [employer] note* Diagnosis Hx of total hip arthroplasty, left- Primary Right knee pain, unspecified chronicity documented in this encounter [facility] SystemEvaluation noteNo [facility] [employer] Other evaluation note* Diagnosis Acute postoperative pain of left knee- Primary Primary osteoarthritis of right knee Primary localized osteoarthrosis, lower leg Osteoarthritis of right knee Osteoarthrosis, unspecified whether generalized or localized, lower leg documented in this encounter [employer] MaterialsEvaluation noteNort [employer] Other Evaluation note* Diagnosis Hx of total knee arthroplasty, right- Primary documented in this encounter [facility]BionaturisMet[facility]* Diagnosis Right inguinal hernia Inguinal hernia without mention of obstruction or gangrene, unilateral or unspecified, (not specified as recurrent) documented in this encounter [facility]History general Narrative - Reported* Type Description Date [...] 202 2 Hospitalization History SEE SURGICAL HX [facility] Other History general Narrative - Reported* Type [...] TKA 04/2023` Hospitalization History SEE SURGICAL HX [facility] Other History general Narrative - ReportedNort [employer] Other Hisycrc general Narrative - Reported* Type Description Date [...] EGD 05/2023 Hospitalization History SEE SURGICAL HX [facility] Other History of Present illness Narrative* History [...] my professional assessment of this patient s jewel inspector katarzyna progressive condition, the complexity of evaluation and treatment is moderate. * This note was created using speech recognition marine steam fitter software/or [employer] marine steam fitter services. Despite proofreading, several typographical errors might [...] stapedectomy for otosclerosis is an elective procedure. 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 * This note was created using speech recognition marine steam fitter software/or [employer] marine steam fitter services. Despite proofreading, several typographical errors might [...] stapedectomy for otosclerosis is an elective procedure. [id number] Work Phone: Hospital course Narrative No data available for this section [facility] Hospital Discharge instructions No data available for this section [facility] General Surgery [place] Progress note No data available for this section [facility] reason for visit Narrative* Auth/Cert Specialty Diagnoses / Procedures Referred By Dodie silverman Referred To Contact Diagnoses Primary osteoarthritis of left hip Primary osteoarthritis of left hip [M16.12] Procedures DC TOTAL HIP ARTHROPLASTY ARTHROPLASTY HIP TOTAL ANTERIOR APPROACH Lazarus Coronado MD [address] [phone] Referral ID Status Reason Start Date Expiration Date Visits Re quested Visits Authorized [id number] 08/15/2022 1 1 [employer] Summary Purpose Family History No Family History [...] HIP WITH PELVIS LEFT Lazarus Coronado MD [address] [place] [phone] Referral ID Status Reason Start Date Expiration Date V isits Requested Visits Authorized [id number] Pending Review 08/03/2022 08/28/2023 1 1 Specialty Diagnoses / Procedures Referred By Contac t Referred To Contact Diagnoses Right knee pain, unspecified chronicity Procedures XR KNEE RIGHT 4+ VIEWS Lazarus Coronado MD [address] [place] [phone] Referral ID Status Reason Start Date Expiration Date V isits Requested Visits Authorized [id number] New Request 03/23/2023 04/16/2024 1 1 Specialty Diagnoses / Procedures Referred By Contac t Referred To Contact Diagnoses Right knee pain, unspecified chronicity Procedures XR BONE LENGTH STUDY Lazarus Coronaod MD [address] [place] [phone] Referral ID Status Reason Start Date Expiration Date V isits Requested Visits Authorized [id number] New Request 03/23/2023 04/16/2024 1 1 Referral ID Status Reason Start Date Expiration Date V isits Requested Visits Authorized [id number] New Request 03/23/2023 04/16/2024 1 1 Specialty Diagnoses / Procedures Referred By Contac t Referred To Contact Diagnoses Hx of total hip arthroplasty, left Procedures XR HIP WITH PELVIS LEFT Lazarus Coronado MD [address] [place] [phone] Referral ID Status Reason Start Date Expiration Date V isits Requested Visits Authorized [id number] New Request 03/07/2023 03/31/2024 1 1 Specialty Diagnoses / Procedures Referred By Contac t Referred To Contact Physical Therapy Diagnoses Acute postoperative pain of left knee Mone Watson, INFECTION CONTROL PREVENTIONIST-HAIR CUTTER [address] [place] [address] Referral ID Status Reason Start Date Expiration Date V isits Requested Visits Authorized [id number] New Request 05/08/2023 06/01/2024 1 1 Scheduling Instructions . Specialty Diagnoses / Procedures Referred By Contac t Referred To Contact Diagnoses Hx of total knee arthroplasty, right Procedures XR KNEE RIGHT 3 VIEWS Mone Watson, INFECTION CONTROL PREVENTIONIST-HAIR CUTTER [address] [place] [address] Referral ID Status Reason Start Date Expiration Date V isits Requested Visits Authorized [id number] New Request 05/24/2023 06/17/2024 1 1 Additional Source Comments (unrecognized sect ion and content) No Status Records FoundNo Status Records FoundNo Status Records FoundNo Status Records FoundNo Status Records FoundNo Status Records FoundNo Status Records FoundNo Status Records FoundNo Status Records Found INFORMATION SOURCE (unrecogn ized section and content) DATE CREATED AUTHOR 12/15/2021 [facility] DATE CREATED AUTHOR AUTHOR'S ORGANIZ ATION 07/17/2022 [facility] DATE CREATED AUTHOR AUTHOR'S ORGANIZ ATION 07/18/2022 [facility] DATE CREATED AUTHOR AUTHOR'S ORGANIZ ATION 03/31/2023 [facility] DATE CREATED AUTHOR AUTHOR'S ORGANIZ ATION 06/08/2023 [facility] DATE CREATED AUTHOR AUTHOR'S ORGANIZ ATION 06/27/2023 [facility] DATE CREATED AUTHOR AUTHOR'S ORGANIZ ATION 05/20/2024 [facility] DATE CREATED AUTHOR AUTHOR'S ORGANIZ ATION 09/10/2024 [facility] DATE CREATED AUTHOR AUTHOR'S ORGANIZ ATION 09/19/2024 [facility] Reason for Visit (unrecogniz ed section and content) Specialty Diagnoses / Procedures Referred By Contac t Referred To Contact Diagnoses Left hip pain Procedures XR HIP WITH PELVIS LEFT Lazarus Coronado MD [address] [place] [phone] Referral ID Status Reason Start Date Expiration Date V isits Requested Visits Authorized [id number] Pending Review 08/03/2022 08/28/2023 1 1 Reason Comments Pain New Patient Specialty Diagnoses / Procedures Referred By Contac t Referred To Contact Diagnoses Hx of total hip arthroplasty, left Procedures XR HIP WITH PELVIS LEFT Mone Watson, INFECTION CONTROL PREVENTIONIST-HAIR CUTTER [address] [place] [phone] Referral ID Status Reason Start Date Expiration Date V isits Requested Visits Authorized [id number] New Request 10/27/2022 11/21/2023 1 1 Specialty Diagnoses / Procedures Referred By Contac t Referred To Contact Diagnoses Hx of total hip arthroplasty, left Procedures XR HIP WITH PELVIS LEFT Lazarus Coronado MD [address] [place] [phone] Referral ID Status Reason Start Date Expiration Date V isits Requested Visits Authorized [id number] New Request 03/07/2023 03/31/2024 1 1 Specialty Diagnoses / Procedures Referred By Contac t Referred To Contact Diagnoses Right knee pain, unspecified chronicity Procedures XR BONE LENGTH STUDY Lazarus Coronado MD [address] [place] [phone] Referral ID Status Reason Start Date Expiration Date V isits Requested Visits Authorized [id number] New Request 03/23/2023 04/16/2024 1 1 Reason Comments Post Op Visit Specialty Diagnoses / Procedures Referred By Contac t Referred To Contact Diagnoses Primary osteoarthritis of right knee Primary osteoarthritis of right knee [M17.11] Procedures DC TOTAL KNEE ARTHROPLASTY ARTHROPLASTY KNEE TOTAL Lazarus Coronado MD [address] [place] [phone] Referral ID Status Reason Start Date Expiration Date Visits Re quested Visits Authorized [id number] 03/29/2023 1 1 Reason Comments Post Op Visit Reason Comments Hernia Patient presents wit h right inguinal hernia. Patient states he has had it for more than a month. Patient states he has pain. Has had CT scan. Bulge is mainly in the abdomen but pain also in scrotum. Specialty Diagnoses / Procedures Referred By Dodie silverman Referred To Contact General Surgery Diagnoses Right inguinal hernia Procedures DC OFFICE/OUTPATIENT [facility] 60 MINUTES Stevan Galdamez MD [address] [place] [facility] [place] [address] Phone: tel: fax: Sarah Hooks, DO [address] [place] [address] Phone: tel: fax: Referral ID Status Reason Start Date Expiration Date V isits Requested Visits Authorized [id number] Closed Specialty Services Required 09/04/2024 03/03/2025 1 1 Care Teams (unrecognized sec tion and content) Knot Cutter Relationship Specialty Start Date End Date Stevan Galdamez DO [address] [place] [facility] [place] [address] PCP - General Internal Medicine 08/03/22 Knot Cutter Relationship Specialty Start Date End Date Stevan Galdamez DO [address] [place] [facility] [place] [address] PCP - General Internal Medicine 08/03/22 Knot Cutter Relationship Specialty Start Date End Date Stevan Galdamez DO [address] [place] [facility] [place] [address] PCP - General Internal Medicine 08/03/22 Knot Cutter Relationship Specialty Start Date End Date Stevan Galdamez, DO [address] [place] [facility] [place] [address] PCP - General Internal Medicine 08/03/22 Knot Cutter Relationship Specialty Start Date End Date Stevan Galdamez DO [address] [place] [facility] [place] [address] PCP - General Internal Medicine 08/03/22 Knot Cutter Relationship Specialty Start Date End Date Stevan Galdamez, DO [address] [place] [facility] [place] [address] PCP - General Internal Medicine 08/03/22 Knot Cutter Relationship Specialty Start Date End Date Stevan Galdamez DO [address] [place] [facility] [place] [address] PCP - General Internal Medicine 08/03/22 Knot Cutter Relationship Specialty Start Date End Date Stevan Galdamez DO [address] [place] [facility] [place] [phone] PCP - General Internal Medicine 08/03/22 Knot Cutter Relationship Specialty Start Date End Date Stevan Galdamez DO [address] [place] [facility] [place] [address] PCP - General Internal Medicine 08/03/22 Knot Cutter Relationship Specialty Start Date End Date Stevan Galdamez MD [address] [place] [facility] [place] [address] PCP - General Internal Medicine 09/04/24 Knot Cutter Relationship Specialty Start Date End Date Stevan Galdamez MD [address] [place] [facility] [place] [address] PCP - General Internal Medicine 09/04/24 Scheduled Active and Recently Administ ered Medications [...] Felecia Carrera RN) Continuous Medication Order 10/09/2022 10/10/202210/11/2022 sodium chloride 0.9% IV solution (CANCELED) Intravenous, [...] Lynn RN)1700 (Rate/Dose Verify - Provider: Keira Qiu, RN) 0734 (Stopped - Provider: Keira Qiu, RN)1122 (Stopped - Provider: Ly Lynn RN) PRN Medication Order 10/09/2022 10/10/2022 10/11/2022 bisacodyl (DULCOLAX) suppository 10 mg 10 mg, Rectal, DAILY NEEDED, Starting on Mon10/10/22 at 1306, Until Mon10/11/22 at 1529, constipation, Post-op/Post-Proc ceFAZolin (ANCEF) 2 g in dextrose 100 mL premix IVPB (COMPLETED) 2 g, Intravenous, Administer over 30 Minutes, MATERIALS TECH TO PROCEDURE, 1 dose, Starting on Mon10/10/22 [...] days, Post-op/Post-Proc 2030 (Given - Provider: Felecia Carrera RN) 0031 (Given - Provider: Felecia Carrera, RN)0845 (Given - Provider: Ly Lynn RN) senna-docusate (SENOKOT-S) 8.6-50 MG per tablet 2 tablet 2 tablet, Oral, 2 TIMES DAILY NEEDED, Starting on Mon10/10/22 at 1306, Until Mon10/11/22 at 1529, constipation, Post-op/Post-Proc sodium chloride 0.9 % irrigation (CANCELED) NEEDED, Starting on Mon10/10/22 at 1030, Until Mon10/10/22 at 1302, Intra-op/Intra-Proc 1030 (Given - Provider: Lazarus Coronado MD)1240 (Given - Provider: Diamond Barillas, BRENDA) sodium phosphate w/sodium biphosphate (FLEETS) enema 1 [...] the next dose tomorrow in the AM.) 0833 (Given - Provider: Keira Qui RN) Metoprolol succinate (TOPROL-XL) tablet XL 50 [...] Qiu RN)2302 ($$New Bag$$ - Provider: Denise Treviño, RN) 0726 (Stopped - Provider: Keira Qiu [...] 2 g, Intravenous, Administer over 30 Minutes, MATERIALS TECH TO PROCEDURE, 1 dose, Starting on Mon05/08/23 at 0708, Until Discontinued, Other, Pre-operative antibiotic, For 15 Minutes, Pre-op/Pre-Proc 0847 (Given - Provider: Boy Vidal, INFECTION CONTROL PREVENTIONIST-AGATE SETTER) Celecoxib (CELEBREX) capsule 200 mg (COMPLETED) 200 [...] BE BASED ON THE PRIMARY CLINICAL RECORDS. [employer] [facility]. provides no warranty or guarantee of the accuracy or completeness of information in this document.
--- NOTE | 2024-09-19 14:56 | XR_ITS ---
The [address] [address] Patient Name: SETH PARIS MRN: [id number] date: 1955 Sex: M Assigned Patient Location: [facility] Current Patient Location: Accession/Order Number: [id number] Exam Date: 09/19/2024 15:30 Report Date: 09/20/2024 11:06 At the request of: JOSELO GARCIA Procedure: XR chest 1V PROCEDURE: XR chest 1V DATE: 09/19/2024 3:30 PM EDT COMPARISONS: None. CLINICAL INDICATION: 68 years Male pre-op: vaping FINDINGS: The cardiomediastinal silhouette and pulmonary vasculature are within normal limits. The lungs are clear. There is no evidence of pleural effusion or pneumothorax. XR/XR chest 1V IMPRESSION: Chest radiograph is within normal limits. Electronically authenticated by: JIGAR CHAWLA Date: 09/20/2024 11:06
[2024-09-19 15:34] LABS: Basophils Percent Auto 0.5 % (0.2-2.0); Eosinophils Absolute Auto 0.2 10^3/uL (0.0-0.7); Hematocrit 41.1 % (42.0-54.0); Hemoglobin 13.9 g/dL (14.0-18.0); Immature Granulocytes Abs Auto 0.01 10^3/uL (0.00-0.03); Immature Granulocytes Pct Auto 0.1 % (0.0-0.5); Lymphocytes Absolute Auto 1.4 10^3/uL (1.2-3.8); Mean Corpuscular HGB Conc 33.8 g/dL (29.9-35.2); Mean Corpuscular Hemoglobin 30.3 pg (25.9-34.0); Mean Corpuscular Volume 89.5 fL (80.0-94.0); Mean Platelet Volume 10.6 fL (9.5-13.5); Monocytes Absolute Auto 0.5 10^3/uL (0.3-0.8); Monocytes Percent Auto 7.2 % (1.7-12.0); Neutrophils Absolute Auto 5.3 10^3/uL (1.4-6.5); Neutrophils Percent Auto 71.2 % (43.0-75.0); Platelet Count 199 10^3/uL (150-450); Red Blood Count 4.59 10^6/uL (4.70-6.10); Red Cell Distribution Width 13.2 % (11.0-15.0); White Blood Count 7.5 10^3/uL (4.0-11.0)
[2024-09-19 15:40] LABS: INR 1.14; Partial Thromboplastin Time 26.5 sec (22.3-36.2); Prothrombin Time 11.9 sec (9.0-11.6)
[2024-09-19 15:49] LABS: Anion Gap 17.1; BUN Creatinine Ratio 13.8; Calcium 9.2 mg/dL (8.5-10.1); Chloride 104 mmol/L (98-107); Estimated GFR (African America >60 (>=60 mL/min/1.73m^2); Estimated GFR (Non-African Ame >60 (>=60 mL/min/1.73m^2); Glucose 101 mg/dL (74-106); Potassium 4.1 mmol/L (3.5-5.1); Sodium 142 mmol/L (136-145)
== END 2024-09-19 14:19 | disposition home or self-care (01) ==
LOC: PST 14:19
PROVIDERS: Anesthesiology; PCP Internal Medicine; Visit Provider Surgery
DX: Z01.810 Encounter for preprocedural cardiovascular examination (principal); Z01.812 Encounter for preprocedural laboratory examination; K40.90 Unilateral inguinal hernia, without obstruction or gangrene, not specified as recurrent; I10 Essential (primary) hypertension; I25.10 Atherosclerotic heart disease of native coronary artery without angina pectoris
CPT/HCPCS: 36415; 71045; 80048; 85025; 85610; 85730

== ENCOUNTER 2024-09-24 07:20 | Day surgery (SDC) | payer MEDICARE, SELFPAY ==
[2024-09-19 14:46] VITALS: BMI 29.8
[2024-09-19 14:48] VITALS: BP 158/91; PULSE 62; TEMP 36.4; O2SAT 98
[2024-09-24] VITALS (21 sets, daily range): BP systolic 123–143; BP diastolic 65–90; PULSE 50–63; TEMP 36.1–36.4; O2SAT 94–100; BMI 30.3
--- OUTSIDE RECORDS SUMMARY | 2024-09-24 07:25 | XMS_ITS | CCD ---
Author Organization [facility] Care Team Providers Care Waitstaff Captain Name Role Phone Rudolph Stevan Johnson Unavailable [...] Care Unavailable FOSTER, LAZARUS Attending Unavailable FOSTER, ALZARUS Referring Unavailable BALL, STEVAN Primary Care Unavailable [...] physicia Propensity to adverse reactions 7 Comment:Done [employer] Other (10 sources) Allergies Reconciled Propensity to adverse reactions Unknown [employer] Other (1 source) No Known Medication Allergies; 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: [No Known Medication Allergies] Propensity to adverse reactions (disorder) [facility] Repository Medications Current Medications Medication Drug Class(es) Dates Sig (Normalized) Sig (Original) 3mL syringe (5 sources) Start: 06-19-2020 3mL syringe 3mL syringe, See Instructions, 6 EA, 1, Use 1 syringe each month, [facility]acy #[id number], Supply, 179, cm, 06/05/20 11:23:00 EDT, Height/Length [...] day(s), # 90 tab(s), Refills(s) 3, Pharmacy: [facility], 179, cm, 12/05/22 9:44:00 EST, Height/Length [...] Daily, # 90 tab(s), Refills(s) 3, Pharmacy: [facility], 179, cm, 12/03/21 9:55:00 EST, Height/Length [...] by Nasal route once for 1 dose. [place] into the nose as directed. Call 911. [...] activity, # 30 tab(s), Refills(s) 3, Pharmacy: [facility], 179, cm, 12/05/22 9:44:00 EST, Height/Length [...] day(s), # 180 cap(s), Refills(s) 3, Pharmacy: [facility], 179, cm, 01/01/24 12:08:00 EST, Height/Length Dosing, 90, kg, 01/01/24 12:08:00 EST, Weight Dosing Start Date: 02/12/24 Stop Date: 02/06/25 Status: Ordered Start: 01-12-2024 [facility] by [facility] twenty-four hours in the morning tamsulosin (Flomax) 0.4 MG 24 hr capsule Take 0.4 mg by mouth in the morning and 0.4 mg before bedtime. 01/12/2024 Active Start: 12-05-2022 End: 11-30-2023 take 1 capsule by mouth twice daily tamsulosin 0.4 mg Cap 0.4 mg = 1 cap(s), Oral, BID, X 90 day(s), # 180 cap(s), Refills(s) 3, Pharmacy: [facility], 179, cm, 12/05/22 9:44:00 EST, Height/Length [...] Active docusate sodium 50 mg / sennosides, senior living 8.6 mg oral tablet (2 sources) Start: [...] Coronary arteriosclerosis; 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: [Atherosclerotic heart disease of [place] coronary artery without angina pectoris] Onset: 2 [...] sources) H/O: high risk medication; 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: [Other snf (current) 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] Episodic Other aftercare (12 sources) Long-term current use of 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; 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: [Other snf (current) 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] Episodic Other aftercare (1 source) 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 (more content not included)... [facility] Reminderson 05-30-2024 Reminders Reminders From: Nati Shane LPN To: [facility] - Clinical; Sent: 05/30/2024 12:26:52 EDT Show up: 04/29/2034 07:00:00 EDT Subject: colonoscopy recall Due Date/Time: 05/29/2034 07:00:00 EDT Reminder/Recall Patient due for screening colonoscopy 05/29/2034. [facility] Consent for Procedure/Surger yon 04-24-2024 Consent for Procedure/Surgery [id number] F [facility] Ambulatory Visit Summaryon 0 04-23-2024 Ambulatory [...] SHEETS, Ailyn Dee Where: [facility] Physician Referralon 024 Physician Referral [id number] [facility] Office Visiton 03-20-2024 Follow-up visit [id number] Lona Bell 1955 M Date Provider Department Center 03/20/2024 3848-JOAQUIM CHAUDHARY FLORENCIA Tsai Family History Problem Relation Age of Onset Dementia Mother Family Status - Relation Status Age at Mother Alive Father Level of Service:32666 MA OFFICE/OUTPATIENT ESTABLISHED LOW MDM 20 MIN Normal [facility] Patient Educationon 01-01-20 24 Patient [...] Where to find more information ? The [place] [employer]: www.cancer.org ? [place] [employer]: www.auanet.org Contact a health care [...] flu (more content not included)... Normal [facility] Urology Office/Clinic Noteon 01-01-2024 Urology Office/Clinic [...] 1 year [facility] [address] [place] [address]- [phone] Additional Instructions: w/ PSA Patient Education Prostate [...] times pe (more content not included)... Normal [facility] Comment on above: Result Comment: Elec tronically Signed By: Ailyn DUNN MD\.br\Date and Time Signed: 01/01/24 13:00 EST\.br\Electronically Co-Signed By: Pamela Quezada.antonio\Date and Time Co-Signed: 01/01/24 12:59 EST Lab Reportson 12-29-2023 Lab Reports [id number] F Normal [facility] SURGICAL PATH REPORTon 06-07 SURGICAL PATH REPORT [facility] Department of Pathology [address] [place] [address] Name: SETH BELL : 1955 Financial [id number] Number: Gender Male [facility] : n: Admit 67 years Attending ALAN HENLEY Age: Provider: Ordering ALAN HENLEY Provider: Consulti Surgical Pathology Report ng: ACCESSION: COLLECTED DATE/TIME: RECEIVED DATE/TIME: PATHOLOGIST: [id number] 06/03/2023 12:04 EDT 06/05/2023 12:04 EDT BHARTI SHEETS, MARK MELENDEZ Final Diagnosis Report for [facility], [place] ANTRAL STOMACH, BIOPSY: - ANTRAL TYPE [...] MP/adan 06/05/2023 Tissue pathology report for: [facility], [address] [place] [address]; ____ Print 06/07/2023 11:16 EDT Number: Date/Time: [facility] Department of Pathology [address] [place] [id number] Name: SETH BELL : 1955 Financial [id number] Number: Gender [facility] : n: Admit 67 years Attending ALAN HENLEY Age: Provider: Ordering ALAN HENLEY Provider: Consulti Surgical Pathology Report ng: ACCESSION: COLLECTED DATE/TIME: RECEIVED DATE/TIME: PATHOLOGIST: [id number] 06/03/2023 12:04 EDT 06/05/2023 12:04 EDT BHARTI SHEETS, MARK MELENDEZ Gross Description PATHOLOGY SERVICES PROVIDED BY [employer] (CLIA #[id number]) in cooperation with [facility] at [address] [place] [address] (CLIA #[id number]) Microscopic Diagnosis The final diagnosis is based on a microscopic exam of branch sales and service representative sections. NOTE: One or more of the reagents used to perform assays on this specimen MAY have contained components considered to be analyte specific reagents ( ASRs). ASRs have not been cleared or approved by the U.S. Food and Drug Administration. The performance characteristics of these assays have been determined by the Department of Pathology at [facility]. This assay was performed subsequent to the H and E examination. Appropriate positive and negative controls were examined with appropriate reactivity. Codes CPT CODE: 23804 + [id number] ____ Print 06/07/2023 11:16 EDT Number: Date/Time: Normal [facility] Comment on above: Performed By: #### 9 [id number] #### [facility] Laboratory Services [address] [place] [address] Quarter Doper: Rainer Doss MD BASIC METABOLIC PANELon 04-21 Anion gap [Moles/Vol] 7 mmol/L Low [facility] Calcium [Mass/Vol] 8.1 mg/dL Low [facility] Chloride [Moles/Vol] 103 mmol/L [facility] Comment on above: Please note: Triglyc eride levels of 600mg/dL or higher may positively bias chloride results by approximately 2.1 mmol CO2 [Moles/Vol] 22 mmol/L [facility] Creatinine [Mass/Vol] 0.60 mg/dL Low [facility] GFR COMMENT Average GFR for 60-6 9 years old = 85. [facility] Comment on above: Chronic Kidney disea se, GFR = <60. Kidney failure, GFR = <15. The GFR estimate is not adjusted for extreme body surface area or acute process, nor has it been validated for women or ethnic groups other than and . Testing performed at [place] [id number] GFR/1.73 sq M.predicted among blacks MDRD (S/P/Bld) [Vol rate/Area] 172 mL/min/{1.73_m2} ml/min/1.73s q.m [facility] GFR/1.73 sq M.predicted among non-blacks MDRD (S/P/Bld) [Vol rate/Area] 142 mL/min/{1.73_m2} ml/min/1.73s q.m [facility] Glucose post fast [Mass/Vol] 136 mg/dL High [facility] Comment on above: NORMAL <100 mg/dL PREDIABETES 101-126 mg/dL DIABETES 126 mg/dL or higher Interpretation and review of laboratory results Abnormal [facility] Potassium [Moles/Vol] 4.0 mmol/L [facility] Sodium [Moles/Vol] 132 mmol/L Low [facility] Urea nitrogen [Mass/Vol] 18 mg/dL [facility] BMP FASTINGon 05-09-2023 Anion gap [Moles/Vol] 7 mmol/L Low 8-16 [facility] Comment on above: Performed By: #### B MPF ####Testing performed at [address] [address]#### ACBC ####Testing performed at [address] [address] Calcium [Mass/Vol] 8.1 mg/dL Low 8.4-10.2 [facility] Comment on above: Performed By: #### B MPF ####Testing performed at [address] [address]#### ACBC ####Testing performed at [address] [address] Chloride [Moles/Vol] 103 mmol/L Normal 98-107 [facility] Comment on above: Result Comment: Grey romero note: Triglyceride levels of 600mg/dL or higher may positively bias chloride results by approximately 2.1 mmol Performed By: #### B MPF ####Testing performed at [address] [address]#### ACBC ####Testing performed at [address] [address] CO2 [Moles/Vol] 22 mmol/L Normal 22-30 [facility] Comment on above: Performed By: #### B MPF ####Testing performed at [address] [address]#### ACBC ####Testing performed at [address] [address] Creatinine [Mass/Vol] 0.60 mg/dL Low 0.7-1.2 [facility] Comment on above: Performed By: #### B MPF ####Testing performed at [address] [address]#### ACBC ####Testing performed at [address] [address] EST. GFR, 172 ml/min/1.73sq.m [facility] Comment on above: Performed By: #### B MPF ####Testing performed at [address] [address]#### ACBC ####Testing performed at [address] [address] EST. GFR,Non 142 ml/min/1.73sq.m [facility] Comment on above: Performed By: #### B MPF ####Testing performed at [address] [address]#### ACBC ####Testing performed at [address] [address] GFR Information Average GFR for 60-6 9 years old = 85. Normal [facility] Comment on above: Result Comment: Lab Technician katarzyna Kidney disease, GFR = <60. Kidney failure, GFR = <15. The GFR estimate is not adjusted for extreme body surface area or acute process, nor has it been validated for women or ethnic groups other than and . Testing performed at [place] [address] Performed By: #### B MPF ####[place] [address]#### ACBC ####[place] [address] Glucose [Mass/Vol] 136 mg/dL High 70-100 [facility] Comment on above: Result Comment: NORMAL <100 mg/dL PREDIABETES 101-126 mg/dL DIABETES 126 mg/dL or higher Performed By: #### B MPF ####[place] [address]#### ACBC ####Testing performed at [place] [id number] Potassium [Moles/Vol] 4.0 mmol/L Normal 3.5-5.1 [facility] Comment on above: Performed By: #### B MPF ####Testing performed at [place] [id number]#### ACBC ####Testing performed at [address] [address] Sodium [Moles/Vol] 132 mmol/L Low 137-145 [facility] Comment on above: Performed By: #### B MPF ####Testing performed at [place] [id number]#### ACBC ####Testing performed at [address] [address] Urea nitrogen [Mass/Vol] 18 mg/dL Normal 7-20 [facility] Comment on above: Performed By: #### B MPF ####Testing performed at [place] [id number]#### ACBC ####Testing performed at [address] [address] CBCon 05-09-2023 ABSOLUTE BAS 0.0 10*3/uL Normal 0.0-0.2 [facility] Comment on above: Performed By: #### B MPF ####Testing performed at [address] [address]#### ACBC ####Testing performed at [address] [address] ABSOLUTE EOS 0.0 10*3/uL Normal 0.0-0.7 [facility] Comment on above: Performed By: #### B MPF ####Testing performed at [address] [address]#### ACBC ####Testing performed at [address] [address] ABSOLUTE NEUTROPHIL COUNT 10.1 10*3/uL High 1.4-6.5 [facility] Comment on above: Performed By: #### B MPF ####Testing performed at [address] [address]#### ACBC ####Testing performed at [address] [address] Basophils/100 WBC (Bld) 0.0 % Normal 0.0-2.0 [facility] Comment on above: Performed By: #### B MPF ####Testing performed at [address] [address]#### ACBC ####Testing performed at [address] [place] [address] DTYPE AUTO DIFF Normal [facility] Comment on above: Performed By: #### B MPF ####Testing performed at [address] [address]#### ACBC ####Testing performed at [address] [address] Eosinophils/100 WBC (Bld) 0.0 % Normal 0.0-11.0 [facility] Comment on above: Performed By: #### B MPF ####[place] [address]#### ACBC ####Testing performed at [address] [address] Lymphocytes (Bld) [#/Vol] 0.8 10*3/uL Low 1.2-3.4 [facility] Comment on above: Performed By: #### B MPF ####[place] [address]#### ACBC ####Testing performed at [address] [address] Lymphocytes/100 WBC (Bld) 6.7 % Low 20.0-55.0 [facility] Comment on above: Performed By: #### B MPF ####[place] [address]#### ACBC ####Testing performed at [address] [address] Monocytes (Bld) [#/Vol] 1.0 10*3/uL High 0.0-0.7 [facility] Comment on above: Performed By: #### B MPF ####[place] [address]#### ACBC ####Testing performed at [address] [address] Monocytes/100 WBC (Bld) 8.3 % Normal 0.0-10.0 [facility] Comment on above: Performed By: #### B MPF ####Testing performed at [address] [address]#### ACBC ####Testing performed at [address] [address] Neutrophils/100 WBC (Bld) 85.0 % High 37.0-75.0 [facility] Comment on above: Performed By: #### B MPF ####[place] [address]#### ACBC ####Testing performed at [address] [address] Erythrocyte distribution width (RBC) [Ratio] 13.8 % Normal 11.5-14.5 [facility] Comment on above: Performed By: #### B MPF ####Testing performed at [address] [address]#### ACBC ####Testing performed at [address] [address] Hematocrit (Bld) [Volume fraction] 25.8 % Low 42.0-52.0 [facility] Comment on above: Performed By: #### B MPF ####Testing performed at [address] [address]#### ACBC ####Testing performed at [address] [address] Hemoglobin (Bld) [Mass/Vol] 9.0 g/dL Low 14.0-18.0 [facility] Comment on above: Performed By: #### B MPF ####Testing performed at [address] [address]#### ACBC ####Testing performed at [address] [address] MCH (RBC) [Entitic mass] 31.3 pg Normal 26.0-35.0 [facility] Comment on above: Performed By: #### B MPF ####Testing performed at [address] [address]#### ACBC ####Testing performed at [address] [address] MCHC (RBC) [Mass/Vol] 34.8 g/dL Normal 27.0-37.0 [facility] Comment on above: Performed By: #### B MPF ####Testing performed at [address] [address]#### ACBC ####Testing performed at [address] [address] MCV (RBC) [Entitic vol] 90.0 fL Normal 80.0-100.0 [facility] Comment on above: Performed By: #### B MPF ####Testing performed at [address] [address]#### ACBC ####Testing performed at [address] [address] Platelet mean volume (Bld) [Entitic vol] 9.1 fL Normal 7.4-11.0 [facility] Comment on above: Performed By: #### B MPF ####Testing performed at [address] [address]#### ACBC ####Testing performed at [address] [address] Platelets (Bld) [#/Vol] 149 10*3/uL Normal 130-400 [facility] Comment on above: Performed By: #### B MPF ####Testing performed at [place] [id number]#### ACBC ####Testing performed at [place] [id number] RBC (Bld) [#/Vol] 2.87 10*6/uL Low 4.0-6.1 [facility] Comment on above: Performed By: #### B MPF ####Testing performed at [place] [id number]#### ACBC ####Testing performed at [address] [address] WBC (Bld) [#/Vol] 11.9 10*3/uL High 3.6-11.0 [facility] Comment on above: Performed By: #### B MPF ####Testing performed at [address] [address]#### ACBC ####Testing performed at [address] [address] CBC, EDIF, PLATELETon 2022 ABSOLUTE BASOPHIL COUNT 0.0 10*3/uL 0.0 - 0.2 10*3/uL [facility] Basophils/100 WBC (Bld) 0.0 % 0.0 - 2.0 % [facility] Differential cell count method Nom (Bld) AUTO DIFF % [facility] Eosinophils (Bld) [#/Vol] 0.0 10*3/uL 0.0 - 0.7 10*3/uL [facility] Eosinophils/100 WBC (Bld) 0.0 % 0.0 - 11.0 % [facility] Erythrocyte distribution width (RBC) [Ratio] 13.8 % 11.5 - 14.5 % [facility] Hematocrit (Bld) [Volume fraction] 25.8 % Low 42.0 - 52.0 % [facility] Hemoglobin (Bld) [Mass/Vol] 9.0 g/dL Low [facility] Interpretation and review of laboratory results Abnormal [facility] Lymphocytes (Bld) [#/Vol] 0.8 10*3/uL Low 1.2 - 3.4 10*3/uL [facility] Lymphocytes/100 WBC (Bld) 6.7 % Low 20.0 - 55.0 % [facility] MCH (RBC) [Entitic mass] 31.3 pg 26.0 - 35.0 PG [facility] MCHC (RBC) [Mass/Vol] 34.8 g/dL [facility] MCV (RBC) [Entitic vol] 90.0 fL [facility] Monocytes (Bld) [#/Vol] 1.0 10*3/uL High 0.0 - 0.7 10*3/uL [facility] Monocytes/100 WBC (Bld) 8.3 % 0.0 - 10.0 % [facility] Neutrophils (Bld) [#/Vol] 10.1 10*3/uL High 1.4 - 6.5 10*3/uL [facility] Neutrophils/100 WBC (Bld) 85.0 % High 37.0 - 75.0 % [facility] Platelet mean volume (Bld) [Entitic vol] 9.1 fL [facility] Platelets (Bld) [#/Vol] 149 10*3/uL 130 - 400 10*3/uL [facility] RBC (Bld) [#/Vol] 2.87 10*6/uL Low 4.0 - 6.1 10*6/uL [facility] WBC (Bld) [#/Vol] 11.9 10*3/uL High 3.6 - 11.0 10*3/uL [facility] MRSA SCREENon 05-08-2023 MRSA DNA DALIA+probe Ql (Unsp spec) Negative Normal NEGATIVE [facility] Comment on above: Performed By: #### M RSAST ####[place] [address] STAPH AUREUS SCREEN Negative Normal NEGATIVE [facility] Comment on above: Result Comment: TEST ING PERFORMED BY PCR Performed By: #### M RSAST ####[place] [address] SCREEN: MRSA ONLY, NARES (IS OLATION SCREEN)on 05-08-2023 MRSA isol Org specific cx Ql (Nose) Negative NEGATIVE [facility] STAPHYOCOCCUS AUREUS BY PCR Negative NEGATIVE [facility] Comment on above: TESTING PERFORMED BY PCR [facility] XR KNEE LEFT 2 VIEWSon 05-08 XR KNEE LEFT 2 VIEWS EXAM: XR KNEE LEFT 2 VIEWS INDICATION: tka COMPARISON: None. TECHNIQUE: Radiographs as described above FINDINGS/IMPRESSION: Status post total knee arthroplasty without evidence of complication. Expected perioperative soft tissue changes. Normal [facility] XR Knee - left 2 Viewson [...] of complication. Expected perioperative soft tissue changes. [facility] Radiology Study observation (narrative) [facility] XR Knee - left 2 ViewsOrdere d By: Clinton Dickens on 05-08-2023 [facility] Work Phone: CBCon 04-13-2023 ABSOLUTE BAS 0.0 10*3/uL Normal 0.0-0.2 [facility] Comment on above: Performed By: #### U MAC #### Testing performed at [address] [address] ABSOLUTE EOS 0.2 10*3/uL Normal 0.0-0.7 [facility] Comment on above: Performed By: #### U MAC #### Testing performed at [address] [address] ABSOLUTE NEUTROPHIL COUNT 3.8 10*3/uL Normal 1.4-6.5 [facility] Comment on above: Performed By: #### U MAC #### Testing performed at [address] [address] Basophils/100 WBC (Bld) 0.5 % Normal 0.0-2.0 [facility] Comment on above: Performed By: #### U MAC #### Testing performed at [address] [address] DTYPE AUTO DIFF Normal [facility] Comment on above: Performed By: #### U MAC #### Testing performed at [address] [address] Eosinophils/100 WBC (Bld) 2.6 % Normal 0.0-11.0 [facility] Comment on above: Performed By: #### U MAC #### Testing performed at [address] [address] Lymphocytes (Bld) [#/Vol] 1.3 10*3/uL Normal 1.2-3.4 [facility] Comment on above: Performed By: #### U MAC #### Testing performed at [address] [address] Lymphocytes/100 WBC (Bld) 22.9 % Normal 20.0-55.0 [facility] Comment on above: Performed By: #### U MAC #### Testing performed at [address] [address] Monocytes (Bld) [#/Vol] 0.5 10*3/uL Normal 0.0-0.7 [facility] Comment on above: Performed By: #### U MAC #### Testing performed at [address] [address] Monocytes/100 WBC (Bld) 8.9 % Normal 0.0-10.0 [facility] Comment on above: Performed By: #### U MAC #### Testing performed at [address] [address] Neutrophils/100 WBC (Bld) 65.1 % Normal 37.0-75.0 [facility] Comment on above: Performed By: #### U MAC #### Testing performed at [address] [address] Erythrocyte distribution width (RBC) [Ratio] 14.6 % High 11.5-14.5 [facility] Comment on above: Performed By: #### U MAC #### Testing performed at [address] [address] Hematocrit (Bld) [Volume fraction] 40.8 % Low 42.0-52.0 [facility] Comment on above: Performed By: #### U MAC #### Testing performed at [address] [address] Hemoglobin (Bld) [Mass/Vol] 13.5 g/dL Low 14.0-18.0 [facility] Comment on above: Performed By: #### U MAC #### Testing performed at [address] [address] MCH (RBC) [Entitic mass] 29.9 pg Normal 26.0-35.0 [facility] Comment on above: Performed By: #### U MAC #### Testing performed at [address] [address] MCHC (RBC) [Mass/Vol] 33.0 g/dL Normal 27.0-37.0 [facility] Comment on above: Performed By: #### U MAC #### Testing performed at [address] [address] MCV (RBC) [Entitic vol] 90.7 fL Normal 80.0-100.0 [facility] Comment on above: Performed By: #### U MAC #### Testing performed at [address] [address] Platelet mean volume (Bld) [Entitic vol] 8.9 fL Normal 7.4-11.0 [facility] Comment on above: Performed By: #### U MAC #### Testing performed at [address] [place] [address] Platelets (Bld) [#/Vol] 157 10*3/uL Normal 130-400 [facility] Comment on above: Performed By: #### U MAC #### Testing performed at [address] [place] [address] RBC (Bld) [#/Vol] 4.50 10*6/uL Normal 4.0-6.1 [facility] Comment on above: Performed By: #### U MAC #### Testing performed at [address] [address] WBC (Bld) [#/Vol] 5.9 10*3/uL Normal 3.6-11.0 [facility] Comment on above: Performed By: #### U MAC #### Testing performed at [address] [address] CMP FASTINGon 04-13-2023 A:G RATIO 1.6 RATIO Normal 1.3-2.2 [facility] Comment on above: Performed By: #### U MAC #### Testing performed at [address] [place] [address] ALBUMIN 4.4 G/dl Normal 3.5-5.0 [facility] Comment on above: Performed By: #### U MAC #### Testing performed at [address] [place] [address] ALP [Catalytic activity/Vol] 52 U/L Normal 38-126 [facility] Comment on above: Performed By: #### U MAC #### Testing performed at [address] [place] [address] ALT [Catalytic activity/Vol] 41 U/L Normal 17-63 [facility] Comment on above: Performed By: #### U MAC #### Testing performed at [address] [address] AST [Catalytic activity/Vol] 29 U/L Normal 15-41 [facility] Comment on above: Performed By: #### U MAC #### Testing performed at [address] [place] [address] Bilirubin [Mass/Vol] 1.6 mg/dL High 0.2-1.2 [facility] Comment on above: Performed By: #### U MAC #### Testing performed at [address] [address] Calcium [Mass/Vol] 9.8 mg/dL Normal 8.4-10.2 [facility] Comment on above: Performed By: #### U MAC #### Testing performed at [address] [address] Chloride [Moles/Vol] 105 mmol/L Normal 98-107 [facility] Comment on above: Performed By: #### U MAC #### Testing performed at [address] [address] CO2 [Moles/Vol] 24 mmol/L Normal 22-30 [facility] Comment on above: Performed By: #### U MAC #### Testing performed at [address] [address] Creatinine [Mass/Vol] 0.67 mg/dL Normal 0.66-1.25 [facility] Comment on above: Performed By: #### U MAC #### Testing performed at [address] [address] EST. GFR, 151 ml/min/1.73sq.m [facility] Comment on above: Performed By: #### U MAC #### Testing performed at [address] [address] EST. GFR,Non 125 ml/min/1.73sq.m [facility] Comment on above: Performed By: #### U MAC #### Testing performed at [address] [address] GFR Information Average GFR for 60-6 9 years old = 85. Normal [facility] Comment on above: Result Comment: Lab Technician katarzyna Kidney disease, GFR = <60. Kidney failure, GFR = <15. The GFR estimate is not adjusted for extreme body surface area or acute process, nor has it been validated for women or ethnic groups other than and . Performed By: #### U MAC #### Testing performed at [address] [address] Glucose [Mass/Vol] 106 mg/dL High 70-100 [facility] Comment on above: Result Comment: NORMAL <100 mg/dL PREDIABETES 101-126 mg/dL DIABETES 126 mg/dL or higher Performed By: #### U MAC #### Testing performed at [address] [address] Potassium [Moles/Vol] 4.2 mmol/L Normal 3.5-5.1 [facility] Comment on above: Performed By: #### U MAC #### Testing performed at [address] [address] Protein [Mass/Vol] 7.2 g/dL Normal 6.3-8.2 [facility] Comment on above: Performed By: #### U MAC #### Testing performed at [address] [address] Sodium [Moles/Vol] 137 mmol/L Normal 136-145 [facility] Comment on above: Performed By: #### U MAC #### Testing performed at [address] [address] Urea nitrogen [Mass/Vol] 17 mg/dL Normal 7-20 [facility] Comment on above: Performed By: #### U MAC #### Testing performed at [address] [address] HEMOGLOBIN A1Con 04-13-2023 Glucose [Mass/Vol] 105 mg/dL Normal [facility] Comment on above: Performed By: #### U MAC #### Testing performed at [address] [address] HbA1c (Bld) [Mass fraction] 5.3 % Normal <6 [facility] Comment on above: Result Comment: NORMAL <5.7% PREDIABETES 5.7-6.4% DIABETES 6.5% OR HIGHER Performed By: #### U MAC #### Testing performed at [address] [address] MRSA SCREENon 04-13-2023 MRSA DNA DALIA+probe Ql (Unsp spec) Negative Normal NEGATIVE [facility] Comment on above: Performed By: #### M RSAST ####Testing performed at [address] [address] STAPH AUREUS SCREEN Positive Abnormal NEGATIVE [facility] Comment on above: Result Comment: TEST ING PERFORMED BY PCR Performed By: #### M RSAST ####Testing performed at [address] [place] [address] PROTIMEon 04-13-2023 INR Coag (PPP) [Relative time] 1.02 {INR} Normal 0.85-1.10 [facility] Comment on above: Result Comment: 2.0-3.0 THERAPEUTIC RANGE 2.5-3.5 MECHANICAL VALVE RANGE Performed By: #### U MAC #### Testing performed at [address] [address] PT Coag (PPP) [Time] 13.5 s Normal 11.8-14.4 [facility] Comment on above: Performed By: #### U MAC #### Testing performed at [address] [address] TYPE AND SCREEN CROSSMATCH C ONVERTIBLEon 04-13-2023 TYPE AND SCREEN CROSSMATCH CONVERTIBLE WORKUP EXPIRES 05/11/2023,2359 ABO/RH(D) O POSITIVE ANTIBODY SCREEN NEGATIVE ARM BAND NUMBER [id number] Normal [facility] Comment on above: Performed By: #### U MAC #### Testing performed at [address] [address] URINE MACROSCOPICon 04-13-20 23 Bilirubin Ql (U) Negative Normal NEGATIVE [facility] Comment on above: Performed By: #### U MAC #### Testing performed at [address] [address] Clarity (U) CLEAR Normal CLEAR [facility] Comment on above: Performed By: #### U MAC #### Testing performed at [address] [place] [address] Color (U) YELLOW Normal YELLOW [facility] Comment on above: Performed By: #### U MAC #### Testing performed at [address] [address] Glucose Ql (U) Negative Normal NEGATIVE [facility] Comment on above: Performed By: #### U MAC #### Testing performed at [address] [address] pH (U) 6.0 [pH] Normal 5.0-7.0 [facility] Comment on above: Performed By: #### U MAC #### Testing performed at [address] [address] URINE HEMOGLOBIN Negative Normal NEGATIVE [facility] Comment on above: Performed By: #### U MAC #### Testing performed at [address] [address] URINE KETONE Negative Normal NEGATIVE [facility] Comment on above: Performed By: #### U MAC #### Testing performed at [address] [address] URINE LEUKOTEST Negative Normal NEGATIVE [facility] Comment on above: Performed By: #### U MAC #### Testing performed at [address] [address] URINE NITRATES Negative Normal NEGATIVE [facility] Comment on above: Performed By: #### U MAC #### Testing performed at [address] [address] URINE SPEC GRAVITY 1.025 Normal 1.010-1.025 [facility] Comment on above: Performed By: #### U MAC #### Testing performed at [address] [address] URINE TOTAL PROTEIN Negative Normal NEGATIVE [facility] Comment on above: Performed By: #### U MAC #### Testing performed at [address] [address] Urobilinogen Qn (U) 1.0 {Tee'U}/dL Normal 0.2-1.0 [facility] Comment on above: Performed By: #### U MAC #### Testing performed at [address] [address] BASIC METABOLIC PANELon 11- Anion gap [Moles/Vol] 9 mmol/L [facility] Calcium [Mass/Vol] 8.4 mg/dL [facility] Chloride [Moles/Vol] 105 mmol/L [facility] CO2 [Moles/Vol] 22 mmol/L [facility] Creatinine [Mass/Vol] 0.68 mg/dL [facility] GFR COMMENT Average GFR for 60-6 9 years old = 85. [facility] Comment on above: Chronic Kidney disea se, GFR = <60. Kidney failure, GFR = <15. The GFR estimate is not adjusted for extreme body surface area or acute process, nor has it been validated for women or ethnic groups other than and . GFR/1.73 sq M.predicted among blacks MDRD (S/P/Bld) [Vol rate/Area] 149 mL/min/{1.73_m2} ml/min/1.73s q.m [facility] GFR/1.73 sq M.predicted among non-blacks MDRD (S/P/Bld) [Vol rate/Area] 123 mL/min/{1.73_m2} ml/min/1.73s q.m [facility] Glucose post fast [Mass/Vol] 153 mg/dL High [facility] Comment on above: NORMAL <100 mg/dL PREDIABETES 101-126 mg/dL DIABETES 126 mg/dL or higher Interpretation and review of laboratory results Abnormal [facility] Potassium [Moles/Vol] 3.7 mmol/L [facility] Sodium [Moles/Vol] 136 mmol/L [facility] Urea nitrogen [Mass/Vol] 16 mg/dL [facility] BMP FASTINGon 10-11-2022 Anion gap [Moles/Vol] 9 mmol/L Normal 8-16 [facility] Comment on above: Performed By: #### A CBC, BMPF #### Testing performed at [address] [address] Calcium [Mass/Vol] 8.4 mg/dL Normal 8.4-10.2 [facility] Comment on above: Performed By: #### A CBC, BMPF #### Testing performed at [address] [address] Chloride [Moles/Vol] 105 mmol/L Normal 98-107 [facility] Comment on above: Performed By: #### A CBC, BMPF #### Testing performed at [address] [address] CO2 [Moles/Vol] 22 mmol/L Normal 22-30 [facility] Comment on above: Performed By: #### A CBC, BMPF #### Testing performed at [address] [address] Creatinine [Mass/Vol] 0.68 mg/dL Normal 0.66-1.25 [facility] Comment on above: Performed By: #### A CBC BMPF #### Testing performed at [address] [address] EST. GFR, 149 ml/min/1.73sq.m [facility] Comment on above: Performed By: #### A CBC BMPF #### Testing performed at [address] [address] EST. GFR,Non 123 ml/min/1.73sq.m [facility] Comment on above: Performed By: #### A CBC BMPF #### Testing performed at [address] [address] GFR Information Average GFR for 60-6 9 years old = 85. Normal [facility] Comment on above: Result Comment: Lab Technician katarzyna Kidney disease, GFR = <60. Kidney failure, GFR = <15. The GFR estimate is not adjusted for extreme body surface area or acute process, nor has it been validated for women or ethnic groups other than and . Performed By: #### A CBC BMPF #### Testing performed at [address] [address] Glucose [Mass/Vol] 153 mg/dL High 70-100 [facility] Comment on above: Result Comment: NORMAL <100 mg/dL PREDIABETES 101-126 mg/dL DIABETES 126 mg/dL or higher Performed By: #### A CBC, BMPF #### Testing performed at [address] [address] Potassium [Moles/Vol] 3.7 mmol/L Normal 3.5-5.1 [facility] Comment on above: Performed By: #### A CBC BMPF #### Testing performed at [address] [address] Sodium [Moles/Vol] 136 mmol/L Normal 136-145 [facility] Comment on above: Performed By: #### A CBC, BMPF #### Testing performed at [address] [address] Urea nitrogen [Mass/Vol] 16 mg/dL Normal 7-20 [facility] Comment on above: Performed By: #### A CBC, BMPF #### Testing performed at [address] [address] CBCon 10-11-2022 ABSOLUTE BAS 0.0 10*3/uL Normal 0.0-0.2 [facility] Comment on above: Performed By: #### A CBC, BMPF #### Testing performed at [address] [address] ABSOLUTE EOS 0.0 10*3/uL Normal 0.0-0.7 [facility] Comment on above: Performed By: #### A CBC, BMPF #### Testing performed at [address] [address] ABSOLUTE NEUTROPHIL COUNT 7.8 10*3/uL High 1.4-6.5 [facility] Comment on above: Performed By: #### A CBC, BMPF #### Testing performed at [address] [address] Basophils/100 WBC (Bld) 0.1 % Normal 0.0-2.0 [facility] Comment on above: Performed By: #### A CBC, BMPF #### Testing performed at [address] [address] DTYPE AUTO DIFF Normal [facility] Comment on above: Performed By: #### A CBC, BMPF #### Testing performed at [address] [address] Eosinophils/100 WBC (Bld) 0.1 % Normal 0.0-11.0 [facility] Comment on above: Performed By: #### A CBC, BMPF #### Testing performed at [address] [address] Erythrocyte distribution width (RBC) [Ratio] 12.8 % Normal 11.5-14.5 [facility] Comment on above: Performed By: #### A CBC, BMPF #### Testing performed at [address] [address] Hematocrit (Bld) [Volume fraction] 29.8 % Low 42.0-52.0 [facility] Comment on above: Performed By: #### A CBC, BMPF #### Testing performed at [address] [address] Hemoglobin (Bld) [Mass/Vol] 10.1 g/dL Low 14.0-18.0 [facility] Comment on above: Performed By: #### A CBC, BMPF #### Testing performed at [address] [address] Lymphocytes (Bld) [#/Vol] 0.8 10*3/uL Low 1.2-3.4 [facility] Comment on above: Performed By: #### A CBC, BMPF #### Testing performed at [address] [address] Lymphocytes/100 WBC (Bld) 8.4 % Low 20.0-55.0 [facility] Comment on above: Performed By: #### A CBC, BMPF #### Testing performed at [address] [address] MCH (RBC) [Entitic mass] 30.2 pg Normal 26.0-35.0 [facility] Comment on above: Performed By: #### A CBC, BMPF #### Testing performed at [address] [address] MCHC (RBC) [Mass/Vol] 33.8 g/dL Normal 27.0-37.0 [facility] Comment on above: Performed By: #### A CBC, BMPF #### Testing performed at [address] [address] MCV (RBC) [Entitic vol] 89.3 fL Normal 80.0-100.0 [facility] Comment on above: Performed By: #### A CBC, BMPF #### Testing performed at [address] [address] Monocytes (Bld) [#/Vol] 1.1 10*3/uL High 0.0-0.7 [facility] Comment on above: Performed By: #### A CBC, BMPF #### Testing performed at [facility] [place] [facility] [address] [place] [address] Monocytes/100 WBC (Bld) 10.8 % High 0.0-10.0 [facility] Comment on above: Performed By: #### A CBC BMPF #### Testing performed at [address] [place] [address] Neutrophils/100 WBC (Bld) 80.6 % High 37.0-75.0 [facility] Comment on above: Performed By: #### A CBC, BMPF #### Testing performed at [address] [address] Platelet mean volume (Bld) [Entitic vol] 9.3 fL Normal 7.4-11.0 [facility] Comment on above: Performed By: #### A CBC, BMPF #### Testing performed at [address] [address] Platelets (Bld) [#/Vol] 146 10*3/uL Normal 130.0-400.0 [facility] Comment on above: Performed By: #### A CBC, BMPF #### Testing performed at [address] [address] RBC (Bld) [#/Vol] 3.33 10*6/uL Low 4.0-6.1 [facility] Comment on above: Performed By: #### A CBC, BMPF #### Testing performed at [address] [address] WBC (Bld) [#/Vol] 9.7 10*3/uL Normal 3.6-11.0 [facility] Comment on above: Performed By: #### A CBC, BMPF #### Testing performed at [address] [address] CBC, EDIF, PLATELETon 2021 ABSOLUTE BASOPHIL COUNT 0.0 10*3/uL 0.0 - 0.2 10*3/uL [facility] Basophils/100 WBC (Bld) 0.1 % 0.0 - 2.0 % [facility] Differential cell count method Nom (Bld) AUTO DIFF % [facility] Eosinophils (Bld) [#/Vol] 0.0 10*3/uL 0.0 - 0.7 10*3/uL [facility] Eosinophils/100 WBC (Bld) 0.1 % 0.0 - 11.0 % [facility] Erythrocyte distribution width (RBC) [Ratio] 12.8 % 11.5 - 14.5 % [facility] Hematocrit (Bld) [Volume fraction] 29.8 % Low 42.0 - 52.0 % [facility] Hemoglobin (Bld) [Mass/Vol] 10.1 g/dL Low [facility] Interpretation and review of laboratory results Abnormal [facility] Lymphocytes (Bld) [#/Vol] 0.8 10*3/uL Low 1.2 - 3.4 10*3/uL [facility] Lymphocytes/100 WBC (Bld) 8.4 % Low 20.0 - 55.0 % [facility] MCH (RBC) [Entitic mass] 30.2 pg 26.0 - 35.0 PG [facility] MCHC (RBC) [Mass/Vol] 33.8 g/dL [facility] MCV (RBC) [Entitic vol] 89.3 fL [facility] Monocytes (Bld) [#/Vol] 1.1 10*3/uL High 0.0 - 0.7 10*3/uL [facility] Monocytes/100 WBC (Bld) 10.8 % High 0.0 - 10.0 % [facility] Neutrophils (Bld) [#/Vol] 7.8 10*3/uL High 1.4 - 6.5 10*3/uL [facility] Neutrophils/100 WBC (Bld) 80.6 % High 37.0 - 75.0 % [facility] Platelet mean volume (Bld) [Entitic vol] 9.3 fL [facility] Platelets (Bld) [#/Vol] 146 10*3/uL 130.0 - 400.0 10*3/uL [facility] RBC (Bld) [#/Vol] 3.33 10*6/uL Low 4.0 - 6.1 10*6/uL [facility] WBC (Bld) [#/Vol] 9.7 10*3/uL 3.6 - 11.0 10*3/uL [facility] NOVEL CORONAVIRUSon 10-10-20 22 NARRATIVE This test was perfor med using isothermal DALIA and has been approved as Emergency Use Authorization (EUA) for the qualitative detection [id number] [facility] Comment on above: Performed By: #### C OVID #### Testing performed at [address] [address] SARS-CoV-2 (COVID-19) RNA DALIA+probe Ql (Unsp spec) Not detected Normal NOT DETECTED [facility] Comment on above: Result Comment: Nega [...] #### C OVID #### Testing performed at [address] [address] NOVEL CORONAVIRUS LAB 1 - NA SOPHARYNGEALon 10-10-2022 NARRATIVE -1 This test was perfor med using isothermal DALIA and has been approved as Emergency Use Authorization (EUA) for the qualitative detection [id number] nucleic acid. [facility] SARS-CoV-2 (COVID-19) RNA DALIA+probe Ql (Unsp spec) Not detected NOT DETECTED [facility] Comment on above: Negative results do not [...] patient is critically ill or clinically deteriorating. [facility] RAPID TOX SCREEN,URINEon AMPHETAMINE Negative Normal NEGATIVE [facility] Comment on above: Result Comment: <500 ng/ml CUTOFF Performed By: #### R TOX #### Testing performed at [address] [place] [address] BARBITURATES Negative Normal NEGATIVE [facility] Comment on above: Result Comment: <200 ng/ml CUTOFF Performed By: #### R TOX #### Testing performed at [address] [place] [address] BENZODIAZEPINES Negative Normal NEGATIVE [facility] Comment on above: Result Comment: <150 ng/ml CUTOFF Performed By: #### R TOX #### Testing performed at [address] [place] [address] BUPRENORPHINE Negative Normal NEGATIVE [facility] Comment on above: Result Comment: <10 ng/ml CUTOFF Performed By: #### R TOX #### Testing performed at [address] [place] [address] CANNABINOIDS Positive Abnormal NEGATIVE [facility] Comment on above: Result Comment: <50 ng/ml CUTOFF *Unconfirmed Screening Result* Unconfirmed screening results are to be used only for medical treatment purposes. Performed By: #### R TOX #### Testing performed at [address] [place] [address] COCAINE Negative Normal NEGATIVE [facility] Comment on above: Result Comment: <150 ng/ml CUTOFF Performed By: #### R TOX #### Testing performed at [address] [place] [address] METHADONE Negative Normal NEGATIVE [facility] Comment on above: Result Comment: <200 ng/ml CUTOFF Performed By: #### R TOX #### Testing performed at [address] [place] [address] METHAMPHETAMINE Negative Normal NEGATIVE [facility] Comment on above: Result Comment: <500 ng/ml CUTOFF Performed By: #### R TOX #### Testing performed at [address] [place] [address] OPIATES Negative Normal NEGATIVE [facility] Comment on above: Result Comment: <100 ng/ml CUTOFF Performed By: #### R TOX #### Testing performed at [address] [place] [address] OXYCODONE Positive Abnormal NEGATIVE [facility] Comment on above: Result Comment: <100 ng/ml CUTOFF *Unconfirmed Screening Result* Unconfirmed screening results are to be used only for medical treatment purposes. Performed By: #### R TOX #### Testing performed at [address] [address] PHENCYCLIDINE Negative Normal NEGATIVE [facility] Comment on above: Result Comment: <25 ng/ml CUTOFF Performed By: #### R TOX #### Testing performed at [address] [address] PROPOXYPHENE Negative Normal NEGATIVE [facility] Comment on above: Result Comment: <300 ng/ml CUTOFF Performed By: #### R TOX #### Testing performed at [address] [address] TRICYCLIC ANTIDEPRESSANTS Positive Abnormal NEGATIVE [facility] Comment on above: Result Comment: <300 ng/ml CUTOFF *Unconfirmed Screening Result* Unconfirmed screening results are to be used only for medical treatment purposes. Performed By: #### R TOX #### Testing performed at [address] [address] REPEAT ABO/RHon 10-10-2022 REPEAT ABO/RH Positive Normal [facility] Comment on above: Performed By: #### R ABRH #### Testing performed at [address] [address] REPEAT ABO/RH (D) TYPINGon 1 12-10-2021 ABO and Rh group Nom (Bld ) Positive [facility] [employer] [facility] TOXICOLOGY DRUG SCREEN, URIN Alexander 10-10-2022 Amphetamine (U) [Mass/Vol] Negative NEGATIVE NG/ML [facility] [employer] Comment on above: <500 ng/ml CUTOFF Barbiturates Screen Ql (U) Negative NEGATIVE NG/ML [facility] Comment on above: <200 ng/ml CUTOFF Benzodiazepines Ql (U) Negative NEGATIVE NG/ML [facility] Comment on above: <150 ng/ml CUTOFF Benzoylecgonine Ql (U) Negative NEGATIVE NG/ML [facility] Comment on above: <150 ng/ml CUTOFF Buprenorphine Ql (U) Negative NEGATIV E NG/ML [facility] Comment on above: <10 ng/ml CUTOFF Cannabinoids Screen Ql (U) Positive Abnormal NEGATIVE NG/ML [facility] Comment on above: <50 ng/ml CUTOFF *Unconfirmed Screening Result* Unconfirmed screening results are to be used only for medical treatment purposes. Interpretation and review of laboratory results Abnormal [facility] Methadone Screen Ql (U) Negative NEGATIVE NG/ML [facility] Comment on above: <200 ng/ml CUTOFF Methamphetamine (U) [Mass/Vol] Negative NEGATIVE NG/ML [facility] Comment on above: <500 ng/ml CUTOFF Opiates Screen Ql (U) Negative NEGATIVE NG/ML [facility] Comment on above: <100 ng/ml CUTOFF oxyCODONE Ql (U) Positive Abnormal NEGATIVE NG/ML [facility] Comment on above: <100 ng/ml CUTOFF *Unconfirmed Screening Result* Unconfirmed screening results are to be used only for medical treatment purposes. Phencyclidine Screen method >25 ng/mL Ql (U) Negative NEGATIVE NG/ML [facility] Comment on above: <25 ng/ml CUTOFF Propoxyphene+Norprop oxyphene Screen Ql (U) Negative NEGATIVE NG/ML [facility] Comment on above: <300 ng/ml CUTOFF Tricyclic antidepressants Screen Ql (U) Positive Abnormal NEGATIVE NG/ML [facility] Comment on above: <300 ng/ml CUTOFF *Unconfirmed Screening Result* Unconfirmed screening results are to be used only for medical treatment purposes. [facility] XR PELVIS AP ONLYon 10-10-20 XR [...] no periprosthetic fracture or dislocation identified. Normal [facility] XR Pelvis APon 10-10-2022 IMPRESSION: Left [...] arthroplasty, no periprosthetic fracture or dislocation identified. [facility] Radiology Study observation (narrative) [facility] XR Pelvis APOrdered By: Hayden Reno on 10-10-2022 [facility] Work Phone: CBCon 09-15-2022 ABSOLUTE BAS 0.0 10*3/uL Normal 0.0-0.2 [facility] Comment on above: Performed By: #### C MPF, ACBC, PT ####Testing performed at [address] [address] ABSOLUTE EOS 0.1 10*3/uL Normal 0.0-0.7 [facility] Comment on above: Performed By: #### C MPF, ACBC, PT ####Testing performed at [address] [address] ABSOLUTE NEUTROPHIL COUNT 4.3 10*3/uL Normal 1.4-6.5 [facility] Comment on above: Performed By: #### C MPF, ACBC, PT ####Testing performed at [address] [address] Basophils/100 WBC (Bld) 0.6 % Normal 0.0-2.0 [facility] Comment on above: Performed By: #### C MPF, ACBC, PT ####Testing performed at [address] [address] DTYPE AUTO DIFF Normal [facility] Comment on above: Performed By: #### C MPF, ACBC, PT ####Testing performed at [address] [address] Eosinophils/100 WBC (Bld) 2.0 % Normal 0.0-11.0 [facility] Comment on above: Performed By: #### C MPF, ACBC, PT ####Testing performed at [address] [address] Lymphocytes (Bld) [#/Vol] 1.2 10*3/uL Normal 1.2-3.4 [facility] Comment on above: Performed By: #### C MPF, ACBC, PT ####Testing performed at [address] [address] Lymphocytes/100 WBC (Bld) 19.4 % Low 20.0-55.0 [facility] Comment on above: Performed By: #### C MPF, ACBC, PT ####Testing performed at [address] [address] Monocytes (Bld) [#/Vol] 0.5 10*3/uL Normal 0.0-0.7 [facility] Comment on above: Performed By: #### C MPF, ACBC, PT ####Testing performed at [address] [address] Monocytes/100 WBC (Bld) 8.8 % Normal 0.0-10.0 [facility] Comment on above: Performed By: #### C MPF, ACBC, PT ####Testing performed at [address] [address] Neutrophils/100 WBC (Bld) 69.2 % Normal 37.0-75.0 [facility] Comment on above: Performed By: #### C MPF, ACBC, PT ####Testing performed at [address] [address] Erythrocyte distribution width (RBC) [Ratio] 12.3 % Normal 11.5-14.5 [facility] Comment on above: Performed By: #### C MPF, ACBC, PT ####Testing performed at [address] [address] Hematocrit (Bld) [Volume fraction] 40.9 % Low 42.0-52.0 [facility] Comment on above: Performed By: #### C MPF, ACBC, PT ####Testing performed at [address] [address] Hemoglobin (Bld) [Mass/Vol] 13.9 g/dL Low 14.0-18.0 [facility] Comment on above: Performed By: #### C MPF, ACBC, PT ####Testing performed at [place] [id number] MCH (RBC) [Entitic mass] 30.6 pg Normal 26.0-35.0 [facility] Comment on above: Performed By: #### C MPF, ACBC, PT ####[place] [address] MCHC (RBC) [Mass/Vol] 34.0 g/dL Normal 27.0-37.0 [facility] Comment on above: Performed By: #### C MPF, ACBC, PT ####Testing performed at [place] [id number] MCV (RBC) [Entitic vol] 89.9 fL Normal 80.0-100.0 [facility] Comment on above: Performed By: #### C MPF, ACBC, PT ####Testing performed at [place] [id number] Platelet mean volume (Bld) [Entitic vol] 8.8 fL Normal 7.4-11.0 [facility] Comment on above: Performed By: #### C MPF, ACBC, PT ####Testing performed at [address] [address] Platelets (Bld) [#/Vol] 200 10*3/uL Normal 130.0-400.0 [facility] Comment on above: Performed By: #### C MPF, ACBC, PT ####Testing performed at [address] [address] RBC (Bld) [#/Vol] 4.55 10*6/uL Normal 4.0-6.1 [facility] Comment on above: Performed By: #### C MPF, ACBC, PT ####Testing performed at [address] [address] WBC (Bld) [#/Vol] 6.2 10*3/uL Normal 3.6-11.0 [facility] Comment on above: Performed By: #### C MPF, ACBC, PT ####Testing performed at [address] [address] CMP FASTINGon 09-15-2022 A:G RATIO 1.8 RATIO Normal 1.3-2.2 [facility] Comment on above: Performed By: #### C MPF, ACBC, PT ####Testing performed at [address] [address] ALBUMIN 4.6 G/dl Normal 3.5-5.0 [facility] Comment on above: Performed By: #### C MPF, ACBC, PT ####Testing performed at [address] [address] ALP [Catalytic activity/Vol] 76 U/L Normal 38-126 [facility] Comment on above: Performed By: #### C MPF, ACBC, PT ####Testing performed at [address] [address] ALT [Catalytic activity/Vol] 31 U/L Normal 17-63 [facility] Comment on above: Performed By: #### C MPF, ACBC, PT ####Testing performed at [address] [address] AST [Catalytic activity/Vol] 22 U/L Normal 15-41 [facility] Comment on above: Performed By: #### C MPF, ACBC, PT ####Testing performed at [address] [address] Bilirubin [Mass/Vol] 1.3 mg/dL High 0.2-1.2 [facility] Comment on above: Performed By: #### C MPF, ACBC, PT ####Testing performed at [address] [address] Calcium [Mass/Vol] 9.9 mg/dL Normal 8.4-10.2 [facility] Comment on above: Performed By: #### C MPF, ACBC, PT ####Testing performed at [address] [address] Chloride [Moles/Vol] 100 mmol/L Normal 98-107 [facility] Comment on above: Performed By: #### C MPF ACBC, PT ####Testing performed at [address] [address] CO2 [Moles/Vol] 23 mmol/L Normal 22-30 [facility] Comment on above: Performed By: #### C MPF ACBC, PT ####Testing performed at [address] [address] Creatinine [Mass/Vol] 0.60 mg/dL Low 0.66-1.25 [facility] Comment on above: Performed By: #### C MPF ACBC, PT ####Testing performed at [address] [address] EST. GFR, 172 ml/min/1.73sq.m [facility] Comment on above: Performed By: #### C MPF ACBC, PT ####Testing performed at [address] [address] EST. GFR,Non 142 ml/min/1.73sq.m [facility] Comment on above: Performed By: #### C MPF ACBC, PT ####Testing performed at [address] [address] GFR Information Average GFR for 60-6 9 years old = 85. Normal [facility] Comment on above: Result Comment: Lab Technician katarzyna Kidney disease, GFR = <60. Kidney failure, GFR = <15. The GFR estimate is not adjusted for extreme body surface area or acute process, nor has it been validated for women or ethnic groups other than and . Performed By: #### C MPF, ACBC, PT ####Testing performed at [address] [address] Glucose [Mass/Vol] 127 mg/dL High 70-100 [facility] Comment on above: Result Comment: NORMAL <100 mg/dL PREDIABETES 101-126 mg/dL DIABETES 126 mg/dL or higher Performed By: #### C MPF, ACBC, PT ####Testing performed at [address] [address] Potassium [Moles/Vol] 4.1 mmol/L Normal 3.5-5.1 [facility] Comment on above: Performed By: #### C MPF, ACBC, PT ####Testing performed at [address] [address] Protein [Mass/Vol] 7.1 g/dL Normal 6.3-8.2 [facility] Comment on above: Performed By: #### C MPF, ACBC, PT ####Testing performed at [place] [id number] Sodium [Moles/Vol] 136 mmol/L Normal 136-145 [facility] Comment on above: Performed By: #### C MPF, ACBC, PT ####Testing performed at [place] [id number] Urea nitrogen [Mass/Vol] 12 mg/dL Normal 7-20 [facility] Comment on above: Performed By: #### C MPF, ACBC, PT ####Testing performed at [address] [address] HEMOGLOBIN A1Con 09-15-2022 Glucose [Mass/Vol] 105 mg/dL Normal [facility] Comment on above: Performed By: #### H A1CT #### [place] [address] HbA1c (Bld) [Mass fraction] 5.3 % Normal <6 [facility] Comment on above: Result Comment: NORMAL <5.7% PREDIABETES 5.7-6.4% DIABETES 6.5% OR HIGHER Performed By: #### H A1CT #### Testing performed at [place] [id number] MRSA SCREENon 09-15-2022 MRSA DNA DALIA+probe Ql (Unsp spec) Not detected Normal NOT DETECTED [facility] Comment on above: Performed By: #### M RSAST #### Testing performed at [place] [id number] STAPH AUREUS SCREEN Detected Abnormal NOT DETECTED [facility] Comment on above: Performed By: #### M RSAST #### Testing performed at [address] [address] PROTIMEon 09-15-2022 INR Coag (PPP) [Relative time] 1.08 {INR} Normal 0.85-1.10 [facility] Comment on above: Result Comment: 2.0-3.0 THERAPEUTIC RANGE 2.5-3.5 MECHANICAL VALVE RANGE Performed By: #### C MPF, ACBC, PT ####Testing performed at [address] [address] PT Coag (PPP) [Time] 14.1 s Normal 11.8-14.4 [facility] Comment on above: Performed By: #### C MPF, ACBC, PT ####Testing performed at [address] [address] RAPID TOX SCREEN,URINEon AMPHETAMINE Negative Normal NEGATIVE [facility] Comment on above: Result Comment: <500 ng/ml CUTOFF Performed By: #### R TOX, UMAC ####Testing performed at [address] [address] BARBITURATES Negative Normal NEGATIVE [facility] Comment on above: Result Comment: <200 ng/ml CUTOFF Performed By: #### R TOX, UMAC ####Testing performed at [address] [address] BENZODIAZEPINES Negative Normal NEGATIVE [facility] Comment on above: Result Comment: <150 ng/ml CUTOFF Performed By: #### R TOX, UMAC ####Testing performed at [address] [address] BUPRENORPHINE Negative Normal NEGATIVE [facility] Comment on above: Result Comment: <10 ng/ml CUTOFF Performed By: #### R TOX, UMAC ####Testing performed at [address] [address] CANNABINOIDS Positive Abnormal NEGATIVE [facility] Comment on above: Result Comment: <50 ng/ml CUTOFF *Unconfirmed Screening Result* Unconfirmed screening results are to be used only for medical treatment purposes. Performed By: #### R TOX, UMAC ####Testing performed at [address] [place] [address] COCAINE Negative Normal NEGATIVE [facility] Comment on above: Result Comment: <150 ng/ml CUTOFF Performed By: #### R TOX, UMAC ####Testing performed at [address] [place] [address] METHADONE Negative Normal NEGATIVE [facility] Comment on above: Result Comment: <200 ng/ml CUTOFF Performed By: #### R TOX, UMAC ####Testing performed at [address] [place] [address] METHAMPHETAMINE Negative Normal NEGATIVE [facility] Comment on above: Result Comment: <500 ng/ml CUTOFF Performed By: #### R TOX, UMAC ####Testing performed at [address] [place] [address] OPIATES Negative Normal NEGATIVE [facility] Comment on above: Result Comment: <100 ng/ml CUTOFF Performed By: #### R TOX, UMAC ####Testing performed at [address] [place] [address] OXYCODONE Positive Abnormal NEGATIVE [facility] Comment on above: Result Comment: <100 ng/ml CUTOFF *Unconfirmed Screening Result* Unconfirmed screening results are to be used only for medical treatment purposes. Performed By: #### R TOX, UMAC ####Testing performed at [address] [place] [address] PHENCYCLIDINE Negative Normal NEGATIVE [facility] Comment on above: Result Comment: <25 ng/ml CUTOFF Performed By: #### R TOX, UMAC ####Testing performed at [address] [place] [address] PROPOXYPHENE Negative Normal NEGATIVE [facility] Comment on above: Result Comment: <300 ng/ml CUTOFF Performed By: #### R TOX, UMAC ####Testing performed at [address] [place] [address] TRICYCLIC ANTIDEPRESSANTS Positive Abnormal NEGATIVE [facility] Comment on above: Result Comment: <300 ng/ml CUTOFF *Unconfirmed Screening Result* Unconfirmed screening results are to be used only for medical treatment purposes. Performed By: #### R TOX, UMAC ####Testing performed at [address] [place] [address] TYPE AND SCREEN CROSSMATCH C ONVERTIBLEon 09-15-2022 TYPE AND SCREEN CROSSMATCH CONVERTIBLE WORKUP EXPIRES 10/13/2022,2359 ABO/RH(D) O POSITIVE ANTIBODY SCREEN NEGATIVE ARM BAND NUMBER [id number] Normal [facility] Comment on above: Performed By: #### T SCC #### Testing performed at [address] [address] URINE MACROSCOPICon 09-15-20 22 Bilirubin Ql (U) Negative Normal NEGATIVE [facility] Comment on above: Performed By: #### R TOX, UMAC ####Testing performed at [address] [place] [address] Clarity (U) CLEAR Normal CLEAR [facility] Comment on above: Performed By: #### R TOX, UMAC ####Testing performed at [address] [place] [address] Color (U) YELLOW Normal YELLOW [facility] Comment on above: Performed By: #### R TOX, UMAC ####Testing performed at [address] [address] Glucose Ql (U) Negative Normal NEGATIVE [facility] Comment on above: Performed By: #### R TOX, UMAC ####Testing performed at [address] [place] [address] pH (U) 5.5 [pH] Normal 5.0-7.0 [facility] Comment on above: Performed By: #### R TOX, UMAC ####Testing performed at [address] [place] [address] URINE HEMOGLOBIN Negative Normal NEGATIVE [facility] Comment on above: Performed By: #### R TOX, UMAC ####Testing performed at [address] [place] [address] URINE KETONE Negative Normal NEGATIVE [facility] Comment on above: Performed By: #### R TOX, UMAC ####Testing performed at [address] [address] URINE LEUKOTEST Negative Normal NEGATIVE [facility] Comment on above: Performed By: #### R TOX, UMAC ####Testing performed at [address] [address] URINE NITRATES Negative Normal NEGATIVE [facility] Comment on above: Performed By: #### R TOX, UMAC ####Testing performed at [address] [address] URINE SPEC GRAVITY 1.015 Normal 1.010-1.025 [facility] Comment on above: Performed By: #### R TOX, UMAC ####Testing performed at [address] [address] URINE TOTAL PROTEIN Negative Normal NEGATIVE [facility] Comment on above: Performed By: #### R TOX, UMAC ####Testing performed at [address] [address] Urobilinogen Qn (U) 0.2 {Tee'U}/dL Normal 0.2-1.0 [facility] Comment on above: Performed By: #### R TOX, UMAC ####Testing performed at [address] [address] Office Visit (Audiology)on 07-15-2022 Follow-up visit Diagnoses/Problems [...] with medical management 3. Consider binaural amplification [id number] Adult Risk Screening There are no spiritual/cultural [...] seems to be unchanged. Patient's preferred language: Jordanian Preferred language of the parent, legal guardian or surrogate decision-maker of this minor or incapacitated patient: Not Applicable No overt signs of domestic violence/neglect/abuse. No referral made to Fisheries Enforcement Officer. Pain not interfering with optimal level of [...] understanding (100%) at 70 dB HL.. Speech dental receptionist threshold (30 dB HL in the right and 30 dB HL in the left) in agreement with pure tone averages. Signatures Electronically signed by : Parag Carver,CCC-A; Jul 15 2022 1:41PM EST (Author) Normal [facility] XR HIP LT 2 3V W PELVISon [...] DAVIN LYNN Date: 2022-06-15 18:35 Normal [facility] Established Visit (Otolaryng ology)on 06-03-2022 Established Visit [...] This note was created using speech recognition top lifter software/or [employer] top lifter services. Despite proofreading, several typographical errors might [...] DAILY AT BEDTIME Vitals Vital Signs Recorded: [id number] 10:48AM Ibstelwygbt82 F Height5 ft 4.5 in Kzzcwx513 lb 8 oz BMI Krypgxifsl23.69 kg/m2 BSA Calculated1.91 Tobacco Useb) No Falls [...] order ONLY (more content not included)... Normal [facility] CORONAVIRUS 2019, SCREEN ASY MPTOMATICon 05-10-2022 SARS-CoV-2 (COVID-19) RNA DALIA+probe Ql (Unsp spec) Not detected Normal Not Detected [facility] Comment on above: Result Comment: [...] patient management decisions. Fact sheet for providers: https://www.fda.gov/media/351581/download Fact sheet for patients: https://www.fda.gov/media/283007/download This test has received FDA Emergency Use Authorization (EUA) and has been verified by [facility] ([facility]). This test is only authorized for the duration of time that circumstances exist to justify the authorization of the emergency use of in vitro diagnostic tests for the detection of SARS-CoV-2 virus and/or diagnosis of COVID-19 infection under section 564(b)(1) of the Act, 21 U.S.C. 360bbb-3(b)(1), unless the authorization is terminated or revoked sooner. [facility] is certified under CLIA-88 as qualified to perform high complexity testing. Testing is performed in the [facility] laboratories located at [address] [place] [address]. Performed By: #### C OVSC #### [address] [place] [address] Covid 19 Resultson 2 SARS-CoV-2 (COVID-19) RNA [...] You may also be contacted by the [facility] to see if any of [...] or Naproxen (Aleve) can also be used. Jbio-ewo-fjbidxi cough and cold medicines can be used according to the instructions on the package. Some bujb-msu-gghasbc medicines also contain acetaminophen. Make sure you [...] water are not available, use alcohol-based hand precision honing machine operator. Avoid touching your eyes, nose, and mouth [...] 24 maggy (more content not included)... Normal [facility] Patient Profile - Preop v3on 05-10-2022 Patient Profile - Preop v3 Patient Profile - Preop: Initial Info: Patient DemographicsName: SETH BELL Date: 1955 Address: [address] [place] [address] Date/Time 09:19 Primary Phone [phone] Call Attemptedleft message Instructions Givenanticoagulant meds - patient advised to consult ordering provider, appropriate clothing, bring list of medications, bring responsible adult as the dairy truck driver (procedure may be cancelled if no dairy truck driver), time to arrive, remove jewerly/piercings, insurance information, diabetes meds - patient advised to consult ordering provider, center location How to be AddressedBob Spoken Language PreferredEnglish Source of Informationpatient Stated Reason for Admissionleft ear Primary Contact Name and [phone] Limitations on Visitors/Phone Callsnone Medications Brought to Hospital[facility] General Health: Weight in kg86.4 kilogram(s) Weight in aea866.4 pound(s) Height in feet5 feet Height in [...] Withspouse Living Arrangementshouse Resource/Environmental Concernsnone Anticipated Transition [employer] Anticipated at Transitionnone Tobacco Use: Tobacco Useno Pre-op Checklist: Arrival [id number] Arrival Time09:07 Procedure Typeleft ear surgery NPOyes Last Food [id number] 22:00 Last Clear Fluid [id number] 22:00 ID Band On Patientpatient ID (name) [...] 11-May-2022 09:24 by Makeda Augustine (RICARDO) Normal [facility] CORONAVIRUS 2019, SCREEN ASY MPTOMATICon 05-09-2022 Lab Specimen Source Nasal, Nasopharyngeal Normal [facility] Comment on above: Performed By: #### C OVSC #### [facility] [address] [place] [address] CBC AUTO DIFFon 05-03-2022 BASO # 0.0 103/ul Normal 0.0-0.1 [facility] Comment on above: Performed By: #### C BC #### [facility] [address] [place] [address] Dr. Natty Daily Basophils/100 WBC (Bld) 0.2 % Normal 0.2-2.0 [facility] Comment on above: Performed By: #### C BC #### [facility] [address] [place] [address] [address] Natty Daily EO # 0.0 103/ul Normal 0.0-0.7 [facility] Comment on above: Performed By: #### C BC #### [facility] [address] [place] [address] [address] Natty Daily Eosinophils/100 WBC (Bld) 0.0 % Critically low 0.9-7.0 [facility] Comment on above: Performed By: #### C BC #### [facility] [address] [place] [address] Dr. Natty Daily Erythrocyte distribution width (RBC) [Ratio] 12.9 % Normal 11.0-15.0 [facility] Comment on above: Performed By: #### C BC #### [facility] [address] [place] [address] Dr. Natty Daily Hematocrit (Bld) [Volume fraction] 38.6 % Critically low 42.0-54.0 [facility] Comment on above: Performed By: #### C BC #### [facility] [address] [place] [address] Dr. Natty Daily Hemoglobin (Bld) [Mass/Vol] 13.1 g/dL Critically low 14.0-18.0 [facility] Comment on above: Performed By: #### C BC #### [facility] [address] [place] [address] Dr. Natty Daily IG # 0.09 10e3/ul Critically high 0.00-0.03 [facility] Comment on above: Performed By: #### C BC #### [facility] [address] [place] [address] Dr. Natty Daily IG % 1.1 % Critically high 0.0-0.5 [facility] Comment on above: Performed By: #### C BC #### [facility] [address] [place] [address] Dr. Natty Daily LYMPH # 1.3 103/ul Normal 1.2-3.8 [facility] Comment on above: Performed By: #### C BC #### [facility] [address] [place] [address] Dr. Natty Daily Lymphocytes/100 WBC (Bld) 15.8 % Critically low 20.5-60.0 [facility] Comment on above: Performed By: #### C BC #### [facility] [address] [place] [address] Dr. Natty Daily MANUAL DIFF REQ NO Normal [facility] Comment on above: Performed By: #### C BC #### [facility] [address] [place] [address] Dr. Natty Daily MCH (RBC) [Entitic mass] 30.9 pg Normal 25.9-34.0 [facility] Comment on above: Performed By: #### C BC #### [facility] [address] [place] [address] Dr. Natty Daily MCHC (RBC) [Mass/Vol] 33.9 g/dL Normal 29.9-35.2 [facility] Comment on above: Performed By: #### C BC #### [facility] [address] [place] [address] [address] Natty Daily MCV (RBC) [Entitic vol] 91.0 fL Normal 80.0-94.0 [facility] Comment on above: Performed By: #### C BC #### [facility] [address] [place] [address] [address] Natty Daily MONO # 0.7 103/ul Normal 0.3-0.8 [facility] Comment on above: Performed By: #### C BC #### [facility] [address] [place] [address] [address] Natty Daily Monocytes/100 WBC (Bld) 8.3 % Normal 1.7-12.0 [facility] Comment on above: Performed By: #### C BC #### [facility] [address] [place] [address] [address] Natty Daily NEUT # 6.1 103/ul Normal 1.4-6.5 [facility] Comment on above: Performed By: #### C BC #### [facility] [address] [place] [address] Dr. Natty Daily Neutrophils/100 WBC (Bld) 74.6 % Normal 43.0-75.0 [facility] Comment on above: Performed By: #### C BC #### [facility] [address] [place] [address] [address] Natty Daily Platelet mean volume (Bld) [Entitic vol] 9.5 fL Normal 9.5-13.5 [facility] Comment on above: Performed By: #### C BC #### [facility] [address] [place] [address] Dr. Natty Daily PLT 231 103/ul Normal 150-450 [facility] Comment on above: Performed By: #### C BC #### [facility] [address] [place] [address] [address] Natty Daily RBC 4.24 106/ul Critically low 4.70-6.10 [facility] Comment on above: Performed By: #### C BC #### [facility] [address] [place] [address] [address] Natty Daily WBC 8.1 103/ul Normal 4.0-11.0 [facility] Comment on above: Performed By: #### C BC #### [facility] [address] [place] [address] Dr. Natty Daily PROF 14(COMP METB)on 022 Albumin [Mass/Vol] 3.9 g/dL Normal 3.4-5.0 [facility] Comment on above: Performed By: #### C MP #### [facility] [address] [place] [address] Dr. Natty Daily Albumin/Globulin [Mass ratio] 1.2 {ratio} Normal [facility] Comment on above: Performed By: #### C MP #### [facility] [address] [place] [address] Dr. Natty Daily ALP [Catalytic activity/Vol] 58 U/L Normal 46-116 [facility] Comment on above: Performed By: #### C MP #### [facility] [address] [place] [address] Dr. Natty Daily ALT [Catalytic activity/Vol] 78 U/L Critically high 16-63 [facility] Comment on above: Performed By: #### C MP #### [facility] [address] [place] [address] Dr. Natty Daily Anion gap [Moles/Vol] 14.3 mmol/L Normal [facility] Comment on above: Performed By: #### C MP #### [facility] [address] [place] [address] Dr. Natty Daily AST [Catalytic activity/Vol] 39 U/L Critically high 15-37 [facility] Comment on above: Performed By: #### C MP #### [facility] [address] [place] [address] Dr. Natty Daily Bilirubin [Mass/Vol] 0.8 mg/dL Normal 0.2-1.0 [facility] Comment on above: Performed By: #### C MP #### [facility] [address] [place] [address] Dr. Natty Daily Calcium [Mass/Vol] 9.0 mg/dL Normal 8.5-10.1 [facility] Comment on above: Performed By: #### C MP #### [facility] [address] [place] [address] Dr. Natty Daily Chloride [Moles/Vol] 104 mmol/L Normal 98-107 [facility] Comment on above: Performed By: #### C MP #### [facility] [address] [place] [address] Dr. Natty Daily CO2 [Moles/Vol] 24.8 mmol/L Normal 21.0-32.0 [facility] Comment on above: Performed By: #### C MP #### [facility] [address] [place] [address] Dr. Natty Daily Creatinine [Mass/Vol] 0.77 mg/dL Normal 0.70-1.30 [facility] Comment on above: Performed By: #### C MP #### [facility] [address] [place] [address] Dr. Natty Daily EGFR-AF ZIMBABWEAN >60 Normal >=60 [facility] Comment on above: Performed By: #### C MP #### [facility] [address] [place] [address] Dr. Natty Daily EGFR-NON AF ZIMBABWEAN >60 Normal >=60 [facility] Comment on above: Performed By: #### C MP #### [facility] [address] [place] [address] Dr. Natty Daily Globulin (S) [Mass/Vol] 3.2 g/dL Normal [facility] Comment on above: Performed By: #### C MP #### [facility] [address] [place] [address] [address] Natty Daily Glucose [Mass/Vol] 131 mg/dL Critically high 74-106 [facility] Comment on above: Performed By: #### C MP #### [facility] [address] [place] [address] Dr. Natty Daily Potassium [Moles/Vol] 4.1 mmol/L Normal 3.5-5.1 [facility] Comment on above: Performed By: #### C MP #### [facility] [address] [place] [address] [address] Natty Daily Protein [Mass/Vol] 7.1 g/dL Normal 6.4-8.2 [facility] Comment on above: Performed By: #### C MP #### [facility] [address] [place] [address] [address] Natty Daily Sodium [Moles/Vol] 139 mmol/L Normal 136-145 [facility] Comment on above: Performed By: #### C MP #### [facility] [address] [address] [address] Natty Daily Urea nitrogen [Mass/Vol] 22.0 mg/dL Critically high 7.0-18.0 [facility] Comment on above: Performed By: #### C MP #### [facility] [address] [address] [address] Natty Daily Urea nitrogen/Creatinine [Mass ratio] 28.6 mg/mg Normal [facility] Comment on above: Performed By: #### C MP #### [facility] [address] [address] [address] Natty Daily PROTIMEon 05-03-2022 INR Coag (PPP) [Relative time] 1.06 {INR} Normal [facility] Comment on above: Performed By: #### P T, PTT #### [facility] [address] [place] [address] Dr. Natty Daily INR GUIDELINES SEE BELOW Normal [facility] Comment on above: Result Comment: REEMA RED INR: 2.0 - 3.0 CONDITIONS NOT LISTED BELOW 2.5 - 3.5 FOR PROSTHETIC HEART VALVE REPLACEMENT 2.5 - 3.5 RECURRENT THROMBOSIS Performed By: #### P T, PTT #### [facility] [address] [address] [address] Natty Daily PT Coag (PPP) [Time] 11.4 s Normal 9.0-11.6 [facility] Comment on above: Performed By: #### P T, PTT #### [facility] [address] [place], [place] [id number] Dr. Natty Daily PTTon 05-03-2022 aPTT Coag (Bld) [Time] 25.6 s Normal 22.3-36.2 [facility] Comment on above: Performed By: #### P T, PTT #### [facility] [address] [address] [address] Natty Daily Tobacco Screening.on 022 Fall risk assessment a) No falls within the last year [facility] Work Phone: Tobacco use status CPHS b) No [facility] Work Phone: Blood Urea Nitrogenon 2020 Urea nitrogen [Mass/Vol] 21 mg/dL Normal 9-23 [facility] Comment on above: Performed By: #### C REAT, BUN #### [facility] [address] [place] [address] [place] Creatinineon 10-19-2021 Creatinine [Mass/Vol] 0.92 mg/dL Normal 0.64-1.27 [facility] Comment on above: Performed By: #### C REAT, BUN #### [place] [address] [place] Creatinine Clr Calc Pharmacy 86.54 [facility] Comment on above: Result Comment: PERF ORMED BY: [place] [address] PATHOLOGIST ORTHOPHOTOGRAPHY TECHNICIAN JAVID GRACIA M.D. Performed By: #### C REAT, BUN #### [place] [address] [place] Estimated GFR ( Jaida > 60 [facility] Comment on above: Result Comment: GFR estimated reference range: According to KDOQI guidelines, <60 ml/min/1.73m2 is sufficient to diagnose a patient with chronic kidney disease. Performed By: #### C REAT, BUN #### [place] [address] [place] Estimated GFR (Non- Am > 60 [facility] Comment on above: Performed By: #### C MAYCOL FOUNTAIN #### [facility] [id number] [facility] MR prostate wo/w conon 10-19 MR prostate wo/w con [facility] Main [place] [address] [id number] MRI Report Signed Patient: Seth Bell MR#: [id number] 343 : 1955 Acct:[id number] Age/Sex: 65 / M ADM Date: 10/19/21 Loc: MR Room: Type: [facility] Attending Dr: Ailyn Dunn MD [...] PM COT by: Asa Kline MD Diplomate, [place] [employer] Report Completed: Oct 19, [...] STAFF 10/19/21 1510 Signed By: 10/19/21 1522 [facility] Vital Signs Date Time Vital Sign Value Performing Clinician Facility 09-09-2024 09:41-0400 Body height 170.2 cm [employer] Phone: [facility] [employer] 09-09-2024 09:41-0400 Body mass index (BMI) [Ratio] 28.38 kg/m2 [employer] Phone: [facility] [employer] 09-09-2024 09:41-0400 Body weight 82.19 kg [employer] Phone: [facility] 09-09-2024 09:41-0400 Diastolic blood pressure 82 mm[Hg] Sarah Bella DO Work Phone: [facility] 09-09-2024 09:41-0400 Heart rate 51 /min Sarah Bella DO Work Phone: [facility] 09-09-2024 09:41-0400 Respiratory rate 14 /min Sarah Bella DO Work Phone: [facility] 09-09-2024 09:41-0400 Systolic blood pressure 142 mm[Hg] Sarahzoe Wareett DO Work Phone: [facility] 06-27-2024 13:12-0400 Blood Pressure Location Bonifacio NILL [facility] 06-27-2024 13:12-0400 Diastolic blood pressure 74 mm[Hg] Bonifacio NILL [facility] 06-27-2024 13:12-0400 Heart rate 45 /min Bonifacio NILL [facility] 06-27-2024 13:12-0400 Respiratory rate 16 /min Bonifacio NILL [facility] 06-27-2024 13:12-0400 Systolic blood pressure 134 mm[Hg] Bonifacio NILL [facility] 04-23-2024 08:22-0400 Diastolic blood pressure 71 mm[Hg] Bonifacio NILL [facility] 04-23-2024 08:22-0400 Heart rate 50 /min Bonifacio NILL [facility] 04-23-2024 08:22-0400 Respiratory rate 16 /min Bonifacio NILL [facility] 04-23-2024 08:22-0400 Systolic blood pressure 130 mm[Hg] Bonifacio NILL [facility] [place] 01-01-2024 12:00-0500 Blood Pressure Location Ailyn DUNN [facility] 01-01-2024 12:00-0500 Diastolic blood pressure 86 mm[Hg] Ailyn DUNN [facility] 01-01-2024 12:00-0500 Heart rate 70 /min Ailyn DUNN [facility] 01-01-2024 12:00-0500 Respiratory rate 16 /min Ailyn DUNN [facility] 01-01-2024 12:00-0500 Systolic blood pressure 122 mm[Hg] Ailyn DUNN [facility] 10-03-2023 10:00-0500 Body height 165.1 cm Stevan Ball Other [facility] [employer] Other 10-03-2023 10:00-0500 Body mass index (BMI) [Ratio] 32.71 kg/m2 Stevan Ball Other [facility] [employer] Other 10-03-2023 10:00-0500 Body weight 89.18 kg Stevan Ball Other [employer] Other 10-03-2023 10:00-0500 Diastolic blood pressure 81 mm[Hg] Stevan Ball Other [employer] Other 10-03-2023 10:00-0500 Respiratory rate 12 /min Stevan Ball Other [employer] Other 10-03-2023 10:00-0500 Systolic blood pressure 131 mm[Hg] Stevan Ball Other [employer] Other 06-08-2023 09:45-0400 Body height 165.1 cm Stevan Ball Other [employer] Other 06-08-2023 09:45-0400 Body mass index (BMI) [Ratio] 32.15 kg/m2 Stevan Ball Other [employer] Other 06-08-2023 09:45-0400 Body weight 87.64 kg Stevan Ball Other [employer] Other 06-08-2023 09:45-0400 Diastolic blood pressure 66 mm[Hg] Stevan Ball Other [employer] Other 06-08-2023 09:45-0400 Respiratory rate 12 /min Stevan Ball Other [employer] Other 06-08-2023 09:45-0400 Systolic blood pressure 99 mm[Hg] Stevan Ball Other [employer] Other 06-01-2023 11:38-0400 Body height 165.1 cm Mone Watson ON SITE CONSTRUCTION SUPERINTENDENT-EXECUTIVE COMPENSATION ANALYST Work Phone: [employer] 06-01-2023 11:38-0400 Body mass index (BMI) [Ratio] 32.78 kg/m2 Mone Watson ON SITE CONSTRUCTION SUPERINTENDENT-EXECUTIVE COMPENSATION ANALYST Work Phone: [employer] 06-01-2023 11:38-0400 Body temperature 97.39 [degF] Mone Watson ON SITE CONSTRUCTION SUPERINTENDENT-EXECUTIVE COMPENSATION ANALYST Work Phone: [employer] 06-01-2023 11:38-0400 Body weight 89.36 kg Mone Watson ON SITE CONSTRUCTION SUPERINTENDENT-EXECUTIVE COMPENSATION ANALYST Work Phone: [employer] 05-29-2023 14:15-0400 Body height 165.1 cm Stevan Ball Other [employer] Other 05-29-2023 14:15-0400 Body mass index (BMI) [Ratio] 32.58 kg/m2 Stevan Ball Other [employer] Other 05-29-2023 14:15-0400 Body weight 88.81 kg Stevan Ball Other [employer] Other 05-29-2023 14:15-0400 Diastolic blood pressure 79 mm[Hg] Stevan Ball Other [employer] Other 05-29-2023 14:15-0400 Respiratory rate 12 /min Stevan Ball Other [employer] Other 05-29-2023 14:15-0400 Systolic blood pressure 124 mm[Hg] Stevan Ball Other [employer] Other 05-09-2023 15:49-0400 Body temperature 98.6 [degF] Lazarus Coronado MD Work Phone: [employer] 05-09-2023 15:49-0400 Diastolic blood pressure 68 mm[Hg] Lazarus Coronado MD Work Phone: [employer] 05-09-2023 15:49-0400 Heart rate 71 /min Lazarus Coronado MD Work Phone: [employer] 05-09-2023 15:49-0400 Respiratory rate 16 /min Lazarus Coronado MD Work Phone: [employer] 05-09-2023 15:49-0400 SaO2% (BldA) [Mass fraction] 94 % Lazarus Coronado MD Work Phone: [employer] 05-09-2023 15:49-0400 Systolic blood pressure 138 mm[Hg] Lazarus Coronado MD Work Phone: [employer] 05-08-2023 07:10-0400 Body height 172.7 cm Lazarus Coronado MD Work Phone: [employer] 05-08-2023 07:10-0400 Body mass index (BMI) [Ratio] 29.63 kg/m2 Lazarus Coronado MD Work Phone: [employer] 05-08-2023 07:10-0400 Body weight 88.41 kg Lazarus Coronado MD Work Phone: [employer] 04-14-2023 10:00-0400 Body height 165.1 cm Stevan Ball Other [employer] Other 04-14-2023 10:00-0400 Body mass index (BMI) [Ratio] 33.24 kg/m2 Stevan Ball Other [employer] Other 04-14-2023 10:00-0400 Body weight 90.63 kg Stevan Ball Other [employer] Other 04-14-2023 10:00-0400 Diastolic blood pressure 93 mm[Hg] Stevan Ball Other [employer] Other 04-14-2023 10:00-0400 Respiratory rate 12 /min Stevan Ball Other [employer] Other 04-14-2023 10:00-0400 Systolic blood pressure 145 mm[Hg] Stevan Ball Other [employer] Other 03-23-2023 10:11-0400 Body height 170.2 cm Lazarus Coronado MD Work Phone: [employer] 03-23-2023 10:11-0400 Body mass index (BMI) [Ratio] 30.98 kg/m2 Lazarus Coronado MD Work Phone: [employer] 03-23-2023 10:11-0400 Body temperature 97.39 [degF] Lazarus Coronado MD Work Phone: [facility] 03-23-2023 10:11-0400 Body weight 89.72 kg Lazarus Coronado MD Work Phone: [facility] 12-05-2022 09:23-0500 Blood Pressure Location Ailyn DUNN [facility] 12-05-2022 09:23-0500 Diastolic blood pressure 88 mm[Hg] Ailyn DUNN [facility] 12-05-2022 09:23-0500 Heart rate 76 /min Ailyn DUNN [facility] 12-05-2022 09:23-0500 Respiratory rate 16 /min Ailyn DUNN [facility] 12-05-2022 09:23-0500 Systolic blood pressure 130 mm[Hg] Ailyn DUNN [facility] 10-11-2022 11:21-0500 Body temperature 98.4 [degF] Lazarus Coronado MD Work Phone: [facility] 10-11-2022 11:21-0500 Diastolic blood pressure 63 mm[Hg] Lazarus Coronado MD Work Phone: [facility] 10-11-2022 11:21-0500 Heart rate 61 /min Lazarus Coronado MD Work Phone: [facility] 10-11-2022 11:21-0500 Respiratory rate 16 /min Lazarus Coronado MD Work Phone: [facility] 10-11-2022 11:21-0500 SaO2% (BldA) [Mass fraction] 96 % Lazarus Coronado MD Work Phone: [facility] 10-11-2022 11:21-0500 Systolic blood pressure 106 mm[Hg] Lazarus Coronado MD Work Phone: [facility] 10-10-2022 13:00-0500 Body height 165.1 cm Lazarus Coronado MD Work Phone: [facility] 10-10-2022 13:00-0500 Body mass index (BMI) [Ratio] 30.79 kg/m2 Lazarus Coronado MD Work Phone: [facility] 10-10-2022 13:00-0500 Body weight 83.92 kg Lazarus Coronado MD Work Phone: [facility] 08-03-2022 14:13-0400 Body height 165.1 cm Lazarus Coronado MD Work Phone: [facility] 08-03-2022 14:13-0400 Body mass index (BMI) [Ratio] 30.65 kg/m2 Lazarus Coronado MD Work Phone: [facility] 08-03-2022 14:13-0400 Body temperature 97 [degF] Lazarus Coronado MD Work Phone: [facility] 08-03-2022 14:13-0400 Body weight 83.55 kg Lazarus Coronado MD Work Phone: [facility] 03-17-2022 15:18-0400 Body height 170.18 cm Stevan Galdamez Work Phone: [facility] [place] Work Phone: 03-17-2022 15:18-0400 Body mass index (BMI) [Ratio] 32.26 kg/m2 Stevan Galdamez Work Phone: WE-Crfzgdtysozprv-Wn [place] Work Phone: 03-17-2022 15:18-0400 Body surface area Derived from formula 2.05 m2 Stevan Galdamez Work Phone: GA-Qjhtziwceknqkg-Sp [address] Work Phone: 03-17-2022 15:18-0400 Body temperature 98.4 [degF] Stevan Galdamez Work Phone: RP-Tssfyfsvnzyyxw-Xm [address] Work Phone: 03-17-2022 15:18-0400 Body weight 93.44 kg Stevan Galdamez Work Phone: FW-Jhwbhbqiastxsv-Ep [address] Work Phone: 03-17-2022 15:18-0400 0 1 Stevan Galdamez Work Phone: ML-Aupkybtykqkaxv-Ps [address] Work Phone: Comment on above: [employer] Encounters Encounter Date Encounter Type Care Provider Facility Start: 09-17-2024 End: 09-17-2024 ambulatory [facility] Start: 09-17-2024 End: 09-17-2024 Patient encounter [facility] Start: 09-09-2024 End: 09-09-2024 Bamboo flowsheet [...] Start: 06-27-2024 End: 06-27-2024 ambulatory STEVAN GALDAMEZ Facility:[facility] Start: 06-27-2024 End: 06-27-2024 Patient encounter procedure Bonifacio FONSECADandre [facility] Start: 05-29-2024 End: 05-29-2024 ambulatory Bonifacio FONSECADandre Facility:CD:[id number] Start: 04-23-2024 End: 04-23-2024 ambulatory Bonifacio GRAVES Facility:[facility] Start: 04-23-2024 End: 04-23-2024 Patient encounter procedure Bonifacio Dee MARIANDandre [facility] Start: 04-09-2024 ambulatory Bonifacio GRAVES Facility:[facility] Start: 03-20-2024 End: 03-20-2024 [facility] Start: 01-01-2024 End: 01-01-2024 ambulatory Ailyn R DUNN Facility:[facility] Start: 01-01-2024 End: 01-01-2024 Patient encounter procedure Ailyn DUNN [facility] Start: 11-27-2023 End: 11-27-2023 ambulatory Stevan Ball Other [employer] Other Start: 11-27-2023 Office outpatient vi sit 15 minutes Stevan Ball [facility] Start: 11-27-2023 Telephone encounter Stevan Ball [facility] Start: 10-03-2023 End: 10-03-2023 ambulatory Stevan Ball Other [employer] Other Start: 10-03-2023 Office outpatient vi sit 25 minutes Stevan Ball [facility] Start: 09-21-2023 End: 09-21-2023 ambulatory Stevan Ball Other [employer] Other Start: 09-21-2023 Telephone encounter Stevan Ball [facility] Start: 09-04-2023 End: 09-04-2023 ambulatory Stevan Ball Other [employer] Other Start: 09-04-2023 Telephone encounter Stevan Ball [facility] Start: 09-01-2023 End: 09-01-2023 ambulatory Stevan Ball Other [employer] Other Start: 09-01-2023 Telephone encounter Stevan Ball [facility] Start: 08-28-2023 End: 08-28-2023 ambulatory Stevan Ball Other [employer] Other Start: 08-28-2023 Telephone encounter Stevan Ball [facility] Start: 08-17-2023 End: 08-17-2023 ambulatory Stevan Ball Other [employer] Other Start: 08-17-2023 Telephone encounter Stevan Ball [facility] Start: 08-10-2023 End: 08-10-2023 ambulatory Stevan Ball Other [employer] Other Start: 08-10-2023 Telephone encounter Stevan Ball [facility] Start: 08-08-2023 End: 08-08-2023 ambulatory Stevan Ball Other [employer] Other Start: 08-08-2023 Telephone encounter Stevan Ball [facility] Start: 07-12-2023 End: 07-12-2023 ambulatory Stevan Ball Other [employer] Other Start: 07-12-2023 Telephone encounter Stevan Ball [facility] Start: 07-07-2023 End: 07-07-2023 ambulatory Stevan Ball Other [employer] Other Start: 07-07-2023 Telephone encounter Stevan Ball [facility] Start: 06-13-2023 End: 06-13-2023 ambulatory Stevan Ball Other [employer] Other Start: 06-13-2023 Telephone encounter Stevan Ball [facility] Start: 06-08-2023 End: 06-08-2023 ambulatory Stevan Ball Other [employer] Other Start: 06-08-2023 Office outpatient vi sit 25 minutes Stevan Ball [facility] Start: 06-05-2023 End: 06-05-2023 ambulatory Stevan Ball Other [employer] Other Start: 06-05-2023 Telephone encounter Stevan Ball [facility] Start: 06-03-2023 End: 06-04-2023 ambulatory MD ALAN HENLEY Facility:[facility] Start: 06-02-2023 End: 06-02-2023 ambulatory Stevan Ball Other [employer] Other Start: 06-02-2023 Telephone encounter Stevan Ball [facility] Start: 06-01-2023 Telephone encounter Stevan Ball [facility] Start: 06-01-2023 End: 06-01-2023 ambulatory STEVAN BALL [employer] Other Start: 06-01-2023 End: 06-01-2023 Postop follow up visit related to original px Mone Watson ON SITE CONSTRUCTION SUPERINTENDENT-EXECUTIVE COMPENSATION ANALYST Work Phone: [facility] Comment on above: Hx of total knee art hroplasty, right (Primary Dx) Start: 05-29-2023 End: 05-29-2023 ambulatory Stevan Ball Other [employer] Other Start: 05-29-2023 Office outpatient vi sit 15 minutes Stevan Ball [facility] Start: 05-09-2023 End: 05-09-2023 ambulatory Stevan Ball Other [employer] Other Start: 05-09-2023 Telephone encounter Stevan Ball [facility] Start: 05-08-2023 End: 05-09-2023 ambulatory LAZARUS CORONADO [facility] Start: 05-08-2023 End: 05-09-2023 Subsequent hospital visit by physician Lazarus Coronado MD Work Phone: [facility] Comment on above: Osteoarthritis of ri ght knee Start: 04-14-2023 End: 04-14-2023 ambulatory Stevan Ball Other [employer] Other Start: 04-14-2023 Encounter for other preprocedural examination Stevan Galdamez [facility] Start: 04-14-2023 Office outpatient vi sit [address] [facility] Start: 04-13-2023 ambulatory [facility] Start: 04-13-2023 Encounter for other preprocedural examination [facility] Start: 04-11-2023 End: 04-11-2023 ambulatory Stevan Galdamez Other [employer] Other Start: 04-11-2023 Telephone encounter Stevan Galdamez [facility] Start: 03-24-2023 End: 03-25-[address] STEVAN GALDAMEZ Facility:[facility] Start: 03-23-2023 ambulatory [facility] Start: 03-23-2023 ambulatory [facility] Start: 03-23-2023 End: 03-23-2023 Subsequent hospital visit by physician Mone MORRISON Work Phone: [facility] Start: 03-23-2023 End: 03-23-2023 Office outpatient visit 40 minutes Lazarus Coronado MD Work Phone: [facility] Comment on above: Hx of total hip arth roplasty, left (Primary Dx); Right knee pain, unspecified chronicity Start: 03-23-2023 End: 03-23-2023 Subsequent hospital visit by physician Lazarus Coronado MD Work Phone: [facility] Start: 02-23-[address] STEVAN GALDAMEZ Facili ty:[facility] Start: 12-05-2022 End: 12-05-2022 Patient encounter procedure Ailyn DUNN [facility] Start: 12-03-2022 End: 12-04-2022 ambulatory AILYN DUNN Facility:[facility] Start: 11-03-2022 ambulatory STEVAN GALDAMEZ [facility] Start: 11-03-2022 End: 11-03-2022 Subsequent hospital visit by physician Mone Watson ON SITE CONSTRUCTION SUPERINTENDENT-EXECUTIVE COMPENSATION ANALYST Work Phone: [facility] Start: 10-27-2022 End: 10-28-[address] ANETA DUNN . Facility:[facility] Start: 10-10-2022 End: 10-11-2022 ambulatory [facility] Start: 10-10-2022 End: 10-11-2022 Encounter for preprocedural laboratory examination [facility] Start: 10-10-2022 End: 10-11-2022 Patient encounter status Lazarus Coronado MD Work Phone: [facility] Start: 10-10-2022 End: 10-11-2022 Subsequent hospital visit by physician Lazarus Coronado MD Work Phone: [facility] Comment on above: Primary osteoarthrit is of left hip Start: 09-27-2022 Pre-procedure evalua tion luiz Galdamez Other [employer] Other Start: 09-15-2022 ambulatory [facility] Start: 08-03-2022 ambulatory [facility] Start: 08-03-2022 ambulatory [facility] Start: 08-03-2022 End: 08-03-2022 Office outpatient new 60 minutes Lazarus Coronado MD Work Phone: [facility] Comment on above: Left hip pain (Prima ry Dx) Start: 08-03-2022 End: 08-03-2022 Subsequent hospital visit by physician Lazarus Coronado MD Work Phone: [facility] Start: 07-23-2022 Adult health examination Milan Galdamez Other [employer] Other Start: 07-21-2022 End: 07-22-[address] STEVAN GALDAMEZ Facility:[facility] Start: 06-15-2022 End: 06-16-[address] STEVAN GALDAMEZ Facility:[facility] Start: 05-05-2022 Encounter for preprocedural cardiovascular examination DR DOCTOR GILL [facility] Start: 05-05-2022 Encounter for preprocedural laboratory examination DR DOCTOR GILL [facility] Start: 05-04-2022 End: 05-21-[address] STEVAN GALDAMEZ Facility:[facility] Start: 05-03-2022 End: 05-04-[address] DOCTOR GILL Facility:[facility] Start: 05-03-2022 End: 05-04-2022 Encounter for preprocedural cardiovascular examination DR DOCTOR GILL Facility:[facility] Start: 03-17-2022 Office outpatient ne w 45 minutes Stevan Galdamez Work Phone: [facility] [place] Work Phone: Evaluation finding Stevan hernandez Work Phone: IE-Euhzlzpbjjdphf-Dwtr [place] Work Phone: Procedures Date Procedure Procedure Detail Performing Clinician Start: 05-29-2024 Colonoscopy Sarah Hooks DO Work Phone: Start: 05-29-2024 Colonoscopy Bonifacio GRAVES Start: 05-09-2023 Basic metabolic panel calcium total Shahzad Whiting MD Work Phone: Start: 05-09-2023 Complete blood count with white cell differential, automated Mone Watson ON SITE CONSTRUCTION SUPERINTENDENT-EXECUTIVE COMPENSATION ANALYST Work Phone: Start: 05-08-2023 Radiologic examination knee 1/2 views Mone Watson APRN-EXECUTIVE COMPENSATION ANALYST Work Phone: Start: 05-08-2023 End: 05-08-2023 Arthrp kne condyle&platu medial&lat compartments Lazarus Coronado MD Work Phone: Start: 05-08-2023 Cultyp nuc acid amp prb cult/isolate ea orgnism Shahzad Whiting MD Work Phone: Start: 04-20-2023 Arthroplasty of knee Ailyn DUNN Start: 12-03-[address] STEVAN GALDAMEZ Comment on above: Performed By: #### PSAD #### [facility] [address] [place], [place] [id number] Dr. Natty Daily Start: 10-11-2022 Basic metabolic panel calcium total Shahzad Whiting MD Work Phone: Start: 10-11-2022 Complete blood count with white cell differential, automated Mone Watson ON SITE CONSTRUCTION SUPERINTENDENT-EXECUTIVE COMPENSATION ANALYST Work Phone: Start: 10-10-2022 Radiologic examination pelvis 1/2 views Monewilfredo Watson ON SITE CONSTRUCTION SUPERINTENDENT-EXECUTIVE COMPENSATION ANALYST Work Phone: Start: 10-10-2022 End: 10-10-2022 Arthrp acetblr/prox fem prostc agrft/algrft Lazarus Coronado MD Work Phone: Start: 10-10-2022 Drug test prsmv read direct optical obs pr date Fabian Masters DO Work Phone: Start: 10-10-2022 Blood group typing, RH phenotyping Lazarus Coronado MD Work Phone: Start: 10-10-2022 Sars-cov-2 detection by dna/rna Mone Bertrand montoya ON SITE CONSTRUCTION SUPERINTENDENT-EXECUTIVE COMPENSATION ANALYST Work Phone: Start: 11-20-2021 Repair of hip [...] 05-29-2034 Screening for malignant neoplasm of colon [facility] Start: 12-20-2024 ambulatory Ambulatory Facility:[facility] [place] Start: 05-08-2024 End: 05-08-2024 Patient encounter procedure 05/08/2024 9:00 AM EDT Office Visit [facility] [address] [place] [id number] Mone Watson, ON SITE CONSTRUCTION SUPERINTENDENT-EXECUTIVE COMPENSATION ANALYST [address] [place] [id number] [facility] Start: 07-21-2023 Influenza vaccination A [facility] Start: 06-01-2023 End: 06-01-2023 Patient encounter procedure 06/01/2023 11:40 AM EDT Office Visit [facility] [address] [place] [address] Mone Watson, ON SITE CONSTRUCTION SUPERINTENDENT-EXECUTIVE COMPENSATION ANALYST [address] [place] [id number] [facility] Start: 04-13-2023 End: 04-13-2023 ambulatory 04/13/2023 Pre-Operative Nurse Assessment Internal Medicine [facility] Pre Admission Start: 03-08-2023 End: 03-08-2023 Patient encounter procedure 03/08/2023 Office Visit Orthopaedics Lazarus Coronado MD [address] [place] [address] [facility] Start: 11-03-2022 End: 11-03-2022 Patient encounter procedure 11/03/2022 Office Visit Orthopaedics Mone Watson, ON SITE CONSTRUCTION SUPERINTENDENT-EXECUTIVE COMPENSATION ANALYST [address] [place] [address] [facility] Start: 09-15-2022 End: 09-15-2022 ambulatory 09/15/2022 Pre-Operative Nurse Assessment Internal Medicine [facility] Pre [facility] Start: 08-03-2022 End: 08-03-2023 XR Pelvis 2 Views [facility] Work Phone: Comment on above: 1 Occurrences starti ng 08/03/2022 until 08/03/2022 Expected: 08/03/2022 , Expires: 08/03/2023 Start: 07-21-2022 Influenza vaccination INFLUENZA VACC INE (#1) [facility] Start: 06-03-2022 POV, Provider: Jamie Rojas, Status: Pen, Time: 9:45 AM POV, Provider: Jamie Rojas, Status: Pen, Time: 9:45 AM [facility] Work Phone: Start: 05-12-2021 COVID-19 VACCINE (3 - Booster for Pfizer series) COVID-19 VACCINE (3 - Booster for Pfizer series) [facility] Start: 05-12-2021 COVID-19 VACCINE (3 - Pfizer series) COVID-19 VACCINE (3 - Pfizer series) [facility] Start: 07-09-2020 Pneumococcal vaccination PNEUMOCOCCAL VACCINE SERIES (2 - PPSV23 if available, else PCV20) [facility] Start: 07-09-2020 Pneumococcal Vaccine : 65+ Years (2 of 2 - PPSV23 or PCV20) Pneumococcal Vaccine: 65+ Years (2 of 2 - PPSV23 or PCV20) [facility] Start: 2018 Abdominal aortic aneurysm screening ABDOMINAL AORTIC ANEURYSM HIGH RISK SCREEN [facility] Start: 2018 Pneumococcal vaccination PNEUMOCOCCAL VACCINE SERIES (1 - PCV) [facility] Start: 2003 Prostate specific antigen measurement PROSTATE CANCER SCREENING DISCUSSION [facility] Start: 2003 Zoster vaccine hzv live for subcutaneous use ZOSTER (SHINGLES) VACCINE (1 of 2) [facility] Start: 1998 Colonoscopy COLORECTAL CAN CER SCREENING DISCUSSION [facility] Start: 1998 Screening for malignant neoplasm of colon COLORECTAL CANCER SCREENING DISCUSSION [facility] Start: 1993 Fasting lipid profile LIPID SCREENIN G [facility] Start: 1993 Lipid panel LIPID SCREENING [facility] Start: 1972 Third diphtheria, tetanus and acellular pertussis (DTaP) vaccination TDAP (ADULT) [facility] Start: 1971 Tetanus vaccination TETANUS [facility] Start: 04-20-1956 COVID-19 VACCINE (#1) COVID-19 VACCI NE (#1) [facility] Start: 1953 Hepatitis C antibody , confirmatory test HEPATITIS C VIRUS SCREENING [facility] Start: 1955 Hepatitis C screening HEPATITI S C VIRUS SCREENING [facility] Start: 1955 Screening for malignant neoplasm of colon [facility] Start: 1955 Tetanus vaccination TETANUS [facility] Radiography for bone length studies XR BONE LENGTH STUDY Imaging Routine Right knee pain, unspecified chronicity 03/23/2023 11:04 AM EDT [facility] Work Phone: End: 10-10-2022 RF Unspecified body region Views during surgery [facility] Comment on above: One Time for 1 Occur rences starting 10/10/2022 until 10/10/2022 SURGICAL PATHOLOGY REQUEST SURGICAL PATHOLOGY REQUEST Surg Path Routine Primary osteoarthritis of left hip Release Upon Ordering for 1 Occurrences starting 10/10/2022 [facility] Comment on above: Release Upon Orderin g for 1 Occurrences starting 10/10/2022 SURGICAL PATHOLOGY REQUEST SURGICAL PATHOLOGY REQUEST Surg Path Routine Primary osteoarthritis of right knee Release Upon Ordering for 1 Occurrences starting 05/08/2023 [facility] Comment on above: Release Upon Orderin g for 1 Occurrences starting 05/08/2023 XR Knee - right 3 Views XR KNEE RIGHT 3 VIEWS Imaging Routine Hx of total knee arthroplasty, right 06/01/2023 11:26 AM EDT [facility] XR Knee - right 4 Views [facility] Work Phone: Comment on above: Ordered: 03/23/2023 XR Pelvis and Hip - left Views XR HIP WITH PELVIS LEFT Imaging Routine Left hip pain 08/03/2022 2:08 PM EDT [facility] Work Phone: XR Pelvis and Hip - left Views XR HIP WITH PELVIS LEFT Imaging Routine Hx of total hip arthroplasty, left 11/03/2022 10:44 AM EST [facility] XR Pelvis and Hip - left Views XR HIP WITH PELVIS LEFT Imaging Routine Hx of total hip arthroplasty, left Ordered: 03/07/[address] [facility] Comment on above: Ordered: 03/07/2023 Immunizations Immunization Date Immunization Notes Care Provider Tiffanie daugherty 10-03-2023 influenza, high dose seasonal, preservative-free Stevan Galdamez Other [facility] Other 09-27-2022 influenza, high dose seasonal, preservative-free Stevan Galdamez Other [facility] Other 09-27-2022 influenza virus vaccine, split virus (incl. purified surface antigen) Stevan Galdamez Other [facility] Other 08-20-2021 influenza virus vaccine, split virus (incl. purified surface antigen) Stevan Galdamez Other [facility] Other 03-17-2021 SARS-CoV-2 (COVID-19 ) mRNA BNT-162b2 fam DUNN [facility] 02-24-2021 SARS-CoV-2 (COVID-19 ) mRNA BNT-162b2 fam DUNN [facility] 11-20-2020 SARS-CoV-2 (COVID-19 ) mRNA BNT-162b2 vax Ailyn DUNN [facility] Comment on above: Result Comment: pt i s fully vaccinated but does not have his card with him 08-19-2020 influenza virus vaccine, split virus (incl. purified surface antigen) Stevan Galdamez Other [facility] Other 10-29-2019 tetanus and diphther ia toxoids, adsorbed, preservative free, for adult use (5 Lf of tetanus toxoid and 2 Lf of diphtheria toxoid) Stevan Galdamez Other [facility] Other 07-09-2019 pneumococcal conjuga te vaccine, 13 valent Stevan Galdamez Other [facility] Other 07-09-2019 pneumococcal Conjuga te, unspecified formulation; 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: [Need for prophylactic vaccination against Streptococcus pneumoniae (pneumococcus)] Stevan Galdamez Other [facility] Other Payers Date Payer Category Payer Private Health Insurance 2021 Private Health Insurance [facility] 2021 Unknown 2020 Medicare [id number] 1959 Medicare [id number] 1959 Private Health Insurance [facility] [id number] 1953 Unknown [id number] 2.16.84 0.1.601368.3.579.2.593 1953 Unknown [id number] 2.16.84 0.1.657460.3.579.2.593 1953 Unknown [id number] 2.16.84 0.1.833303.3.579.2.593 1953 Unknown [id number] 2.16.84 0.1.321785.3.579.2.593 1953 Unknown [id number] 2.16.84 0.1.546544.3.579.2.593 1953 Unknown [id number] 2.16.84 0.1.122679.3.579.2.593 1953 Unknown [id number] 2.16.84 0.1.970930.3.579.2.593 1953 Unknown [id number] 2.16.84 0.1.488284.3.579.2.593 1953 Unknown [id number] 2.16.8 40.1.677316.3.579.2.159 1953 Unknown [id number] 2.16.8 40.1.455855.3.579.2.983 1953 Unknown [id number] 2.16.8 40.1.092927.3.579.2.983 1953 Unknown [id number] 2.16.8 40.1.155028.3.579.2.983 1953 Unknown [id number] 2.16.8 40.1.621989.3.579.2.983 1953 Unknown [id number] 2.16.8 40.1.760580.3.579.2.983 1953 Unknown [id number] 2.16.8 40.1.056092.3.579.2.983 1953 Unknown [id number] 2.16.8 40.1.014072.3.579.2.983 1953 Unknown [id number] 2.16.8 40.1.662387.3.579.2.983 1953 Unknown [id number] 2.16.8 40.1.983379.3.579.2.983 1953 Unknown [id number] 2.16.8 40.1.371190.3.579.2.983 1953 Unknown [id number] 2.16.8 40.1.111072.3.579.2.983 1953 Unknown [id number] 2.16.8 40.1.199103.3.579.2.983 1953 Unknown [id number] 2.16.8 40.1.992381.3.579.2.983 1953 Unknown [id number] 2.16.8 40.1.399943.3.579.2.983 1953 Unknown [id number] 2.16.84 0.1.855683.3.579.2.1259 1953 Unknown [id number] 2.16.8 40.1.992815.3.579.2.727 1953 Unknown [id number] 2.16.8 40.1.946104.3.579.2.727 1953 Unknown [id number] 2.16.8 40.1.829873.3.579.2.727 1953 Unknown [id number] 2.16.8 40.1.063270.3.579.2.727 1953 Unknown [id number] 2.16.8 40.1.395554.3.579.2.727 1953 Unknown [id number] 2.16.8 40.1.405965.3.579.2.727 Social History Date Type Detail Facility Start: 05-09-2023 End: 06-01-2023 Former smoker Former smoker [facility] Work Phone: Start: 08-03-2022 End: 06-27-2024 Tobacco smoking status NHIS Ex-smoker [facility] End: 11-20-1988 History of tobacco use Cigarette Smoker [facility] Start: 08-03-2022 End: 06-01-2023 Alcohol intake Current drinker of alcohol (finding) [facility] Start: 08-03-2022 History SDOH Alcohol Comment daily [facility] Start: 1955 Sex Assigned At Not on file [facility] End: 11-20-1988 History of tobacco use Current smoker [facility] Start: 09-13-2022 End: 04-04-2023 Tobacco use and exposure Smokeless tobacco non-user [facility] Start: 09-30-2022 End: 05-08-2023 Exposure to SARS-CoV-2 (event) Not sure [facility] Tobacco smoking status Never [facility] Start: 05-09-2023 End: 06-01-2023 Sex Assigned At Male [facility] Start: 04-04-2023 Alcohol Comment hard cider daily [facility] Tobacco smoking status NHIS Tobacco smoking consumption unknown [facility] Medical Equipment Procedure Code Equipment Code Equipment Origin al Text Equipment Identifier Dates Bi Mentum Liner [id number] Start: 10-10-2022 22 gauge needle, See Instructions, 12 EA, 1, Use 2 needles per month, one to draw up and one for injection, [id number], Supply, 179, cm, 06/05/20 11:23:00 EDT, Height/Length Measured, 88, kg, 06/05/20 11:23:00 EDT, Weight Measured Start: 06-19-2020 Insert - Knee - [id number] Start: 05-08-2023 22 gauge needle, See Instructions, [...] to draw up and one for injection, [id number], Supply, 179, cm, 06/05/20 11:23:00 EDT, Height/Length Measured, 88, kg, 06/05/20 11:23:00 EDT, Weight Measured Start: 06-19-2020 Functional Status Date Assessment Result Facility 06-27-2024 Functional Status N/A [facility] [place] 04-23-2024 Functional Status N/A [facility] [place] 01-01-2024 Functional Status N/A [facility] 12-05-2022 Functional Status N/A [facility] Clinical Notes 03-17-2022 to 09-09-2024 Sarah Hooks [...] Tobacco Use: Medium Risk (06/01/2023) Received from [facility] Patient History Smoking Tobacco Use: Former Smokeless [...] Margareth Hooks DO documented in this encounter [facility] 06-27-2024 Note General Surgery Offi ce/Clinic [...] E&M of Est. Patient High 40-54 Min 68812 3. 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 Patient High 40-54 Min 53699 Follow-up No qualifying data available Problem List/Past [...] for malignant neoplasm (more content not included)... [facility] Comment on above: Result Comment: Elec tronically [...] mg Cap, 0.4 (more content not included)... [facility] Comment on above: Result Comment: Elec tronically Signed By: ELY SHEETS, Bonifacio Duarte\Date and Time Signed: 04/23/24 09:05 EDT 03-20-2024 Note Patient here for 1 y ear follow up CAD, hypertension, and hyperlipidemia. Denies chest pain, SOB, palpitations, and lightheadedness/syncope. He was admitted in May 2023 for upper GI bleed. Doing very well since then. [facility] 03-20-2024 Note IN Cardiology Note HPI Chief Complaint: Seth Bell [...] discussed target range. Coronary artery disease involving [place] coronary artery of [place] heart without angina pectoris Patient adamantly denies [...] -Follow-up in cardiology clinic Joaquim Chaudhary MD IN Interventional Cardiology [facility] 01-01-2024 Hospital Discharge instructions Patient [...] treatment? Where to find more information [employer] [place] [employer]: www.cancer.org [place] [employer]: www.auanet.org Contact a health care [...] provider. Document Revised: 05/02/2022 Document Reviewed: 05/02/2022 [employer] Patient Education 2022 [employer]. Follow Up Care 12/05/2022 10:43:19 With:SHAUN SHEETS, Ailyn Dee, URL Address: [facility] [address] , [place] [address]- [phone] When:Within 1 Year(s) Comments:w/ PSA [facility] Марина 11-27-2023 Evaluation note Encounter Date Diagnosis [...] I25.10) Increases risk for more severe infection [facility] Other 01-08-2024 Evaluation note* Encounter Date Diagnosis Assessment Notes Treatment Notes Treatment Clinical Notes Nov, COVID-19 (ICD-10 - U07.1) [facility] Other 11-14-2023 Evaluation note* Encounter Date Diagnosis [...] normal. Active lifestyle, looking forward to hunting. [facility] Other 11-02-2023 Evaluation note* Encounter Date Diagnosis Assessment Notes Treatment Notes Treatment Clinical Notes Sep, Acute blood loss anemia (ICD-10 - D62) [facility] Other 09-28-2023 Evaluation note* Encounter Date Diagnosis Assessment Notes Treatment Notes Treatment Clinical Notes Jul, ASHD (arteriosclerot ic heart disease) (ICD-10 - I25.10) Jul, Pure hypercholestero lemia (ICD-10 - E78.00) [facility] Other 09-21-2023 Evaluation note* Encounter Date Diagnosis Assessment Notes Treatment Notes Treatment Clinical Notes Jul, Primary hypertension (ICD-10 - I10) [facility] Other 07-20-2023 Evaluation note* Encounter Date Diagnosis [...] bleed, resume after holding for 2 wks [facility] Other 07-17-2023 Evaluation note* Encounter Date Diagnosis Assessment Notes Treatment Notes Treatment Clinical Notes May, Acute blood loss anemia (ICD-10 - D62) [facility] Other 07-14-2023 Evaluation note* Encounter Date Diagnosis Assessment Notes Treatment Notes Treatment Clinical Notes May, Nausea (ICD-10 - R11.0) [facility] Other 07-13-2023 Evaluation note* Encounter Date Diagnosis Assessment Notes Treatment Notes Treatment Clinical Notes May, Bilateral carotid bruits (ICD-10 - R09.89) [facility] Other 07-13-2023 History of Present illness Narrative* Kayley Lisa LPN - 06/01/2023 11:40 AM EDT Ortho Nurse - Established Patient Intake Room#: 5 Date: 06/01/2023 11:43 AM Patient: Seth Bell MR#: [id number] : 1955 Age: 67 y.o. 3 wks [...] by Nasal route once for 1 dose. [place] into the nose as directed. Call 911. [...] by Nasal route once for 1 dose. [place] into the nose as directed. Call 911. [...] has No Known Allergies. * Mone Watson APRN-EXECUTIVE COMPENSATION ANALYST - 06/01/2023 11:40 AM EDT HPI: Seth [...] understanding. All pertinent portions of the clinical clinical support associate documentation was reviewed and agree. PRINCE Yo Ortho Nurse - Established Patient Intake Room#: 5 Date: 06/01/2023 11:43 AM Patient: Seth Bell MR#: [id number] : 1955 Age: 67 y.o. 3 wks [...] by Nasal route once for 1 dose. [place] into the nose as directed. Call 911. [...] by Nasal route once for 1 dose. [place] into the nose as directed. Call 911. [...] has No Known Allergies. documented in [facility] Miscellaneous Notes* Nursing Notes - Keira Qiu [...] by Keira GUTIERREZ, unable to scan in [email or web address] due to connectivity issues. * Op Note - Lazarus Coronado MD - 05/09/2023 8:25 AM EDT DATE OF PROCEDURE: May 08, 2023 ATTENDING PHYSICIAN: Lazarus Coronado M.D. SPORTS MEDIA: Mone Watson CNP PREOPERATIVE DIAGNOSIS: Severe right [...] I referenced this against the flexion gap, [place]'s line, and the epicondylar axis as well. I then used an anterior referencing stylus and sized it to a size 7. At this point then, the 4:1 cutting block was pinned into place, and all four cuts were performed. The f lexion space was opened up with the lamina sterile technician, and the medial and lateral menisci were [...] of motion and anatomic tracking at the [place] patella. Thus, the patella itself was flipped [...] procedure) without the assistance of a skilled ophthalmic surgical assistant. A ophthalmic surgical assistant was medically necessary for positioning, retraction [...] OPERATIVE/PROCEDURE NOTE Seth Bell 67 y.o. male [id number] SURGEON Surgeon(s) and Role: * Lazarus Coronado MD - Primary SPORTS MEDIA PRINCE Yo ANESTHESIOLOGIST ASSISTANT CORPORATION COUNSEL: MEAGAN SteeleASSISTANT CORPORATION COUNSEL; MERRY Hutchinson SURGICAL STAFF Parts Room Assistant: Shelley Brown RN; Debi Wiggins RN Nurse Practitioner: PRINCE Yo Scrub Person: Sarita Lizama RN Gravity Flow Irrigator: Mahesh Armstrong LPN PROCEDURE PERFORMED Procedure(s) (LRB): [...] Implant Name Type Inv. Item Serial No. Forestry Laborer Lot No. LRB No. Used Action PALACOS R 1 X 40 US - [id number] PALACOS R 1 X 40 US [id number] Right 2 Implanted PATELLA - KNEE - [id number] PATELLA - KNEE [id number] Right 1 Implanted FEMUR - KNEE - [id number] FEMUR - KNEE [id number] Right 1 Implanted Attune Knee System Tibial Base Fixed Bearing DEPUY [id number] Right 1 Implanted INSERT - KNEE - [id number] INSERT - KNEE [id number] Right 1 Implanted SPECIMENS ID Type Source Tests Collected by Time Destination 1 : Bone RIght Knee Permanent TISSUE SURGICAL PATHOLOGY REQUEST Lazarus Coronado MD 05/08/2023 0914 PRINCE Yo May 08, 2023 10:20 AM documented in this encounterAdena [facility]06-[facility]23 Nurse Note* Nursing Notes - Keira Qiu RN - 05/09/2023 3:41 PM EDT Discharge instructions and education reviewed with pt and his daughter, education provided for dx and new medications, printed education given, denies any questions. Hemovac care reviewed. HOLLY hose, ABDs, and ice packs provided. Meds to beds with integrity seal intact provided. [facility] History of Present illness Narrative* Asa Malik [...] Supine to Sit, Rehab Eval Level of [place]: Supine/Sit supervision Transfer Skill: Sit To Stand, Rehab Eval [place] (Sit-Stand Transfers) contact guard Physical Assist/Nonphysical Assist: Sit/Stand 1 person assist Weight-Bearing Restrictions: Sit/Stand weight-bearing as tolerated Assistive Device For Transfer: Sit/Stand 2 wheeled walker Gait Skills, PT Eval Level of [place]: Gait contact guard Physical Assist/Nonphysical Assist: Gait 1 person assist Weight-Bearing Restrictions: Gait weight-bearing as tolerated Assistive Device For Transfer: Gait 2 wheeled walker Gait Distance (125ft x2) Gait Analysis, PT Eval Gait Pattern Used swing-through gait Gait Deviations Identified (Gait) decreased win;decreased gait speed;decreased step length;decreased stride length Impairments Contributing To Gait Deviations impaired balance;pain;decreased ROM;decreased strength Stair Negotiation [place] Level: Stair Negotiation contact guard assist Physical [...] Patient to go to outpatient therapy at [facility] tomorrow at 4:30 pm. Patient informed of [...] Equipment Available straight cane;wheeled walker;shower chair;elevated toilet seat;sock-aid;regional administrative assistant;long-handled shoe horn;dressing stick;long handle sponge Cognitive Status [...] Supine to Sit, Rehab Eval Level of [place]: Supine/Sit stand-by assist Physical Assist/Nonphysical Assist: Supine/Sit 1 person assist Transfer Skill: Sit to Stand, Rehab Eval Level of [place]: Sit/Stand contact guard Physical Assist/Nonphysical Assist: Sit/Stand 1 person assist Weight-Bearing Restrictions: Sit/Stand weight-bearing as tolerated Assistive Device for Transfer: Sit/Stand wheeled walker Upper Body Dressing Level of [place] independent Physical Assist/Nonphysical Assist set-up required Lower Body Dressing Level of [place] maximum assist (25% patients effort) Physical Assist/Nonphysical Assist 1 person assist Toileting Level of [place] contact guard Physical Assist/Nonphysical Assist 1 person assist Grooming [place] Level (Grooming) wash face, hands;contact guard assist [...] as needed Therapist Information License # [id number] 1. Pt will complete LB dressing MOD [...] Supine to Sit, Rehab Eval Level of [place]: Supine/Sit stand-by assist Physical Assist/Nonphysical Assist: Supine/Sit 1 person assist;verbal cues Transfer Skill: Sit To Stand, Rehab Eval [place] (Sit-Stand Transfers) contact guard Physical Assist/Nonphysical Assist: Sit/Stand 1 person assist;verbal cues Weight-Bearing Restrictions: Sit/Stand weight-bearing as tolerated Assistive Device For Transfer: Sit/Stand 2 wheeled walker Gait Skills, PT Eval Level of [place]: Gait contact guard Physical Assist/Nonphysical Assist: Gait [...] strength;impaired motor control;impaired postural control Stair Negotiation [place] Level: Stair Negotiation not tested Sensory Examination [...] PT to follow Therapist Information License # [id number] * Brittani Honeycutt RN - 05/08/2023 12:01 PM EDT Patient was assessed in [facility] on 04/13/23. Met with patient, spouse and daughter for follow up after surgery to discuss discharge plan. Patient plans to return home with spouse and would to like go to outpatient therapy at [facility]. Patient has a wheeled walker and denies any equipmentneeds at this time. Nursing reports that the incision has been closed with dermabond with hemovac in place, will request a 3 week follow up appointment. Patient denies any other questions or needs atthis time. Referral information faxed to [facility] OP Therapy, appointment scheduled for 05/10/23 @ [...] lb) 10/10/22 83.9 kg (185 lb) [place] body weight: 68.4 kg (150 lb 12.7 [...] afternoon appointment d/t transportation issues on Monday. [facility] Re[facility] contacted and appointment time changed. Will fax updated information to OP rehab after patient has had surgery. Will continue to follow up with patient and family for discharge needs. * Jazmyne Cardona LPN - 04/13/2023 11:54 AM EDT 04/13/23 1152 Referral Information Arrived From home or self-care Information Source Information Source patient Contact Information Apron Man Name Brittani Honeycutt RN Case Manager's Living [...] with spouse and have OP therapy at [facility], phone number is [phone], patient prefers late morning appointment. Patient has a FW wheeled walker, in addition to raised toilet seat, railing and shower chair. Patient denies any other questions or needs at thistime. CM to continue to follow and assist with discharge plans. documented in this encounterAdena [facility] System06-20-2023 Nurse Note* Nursing Notes - Keira Qiu RN - 05/09/2023 11:57 AM EDT Assessment is complete and remains unchanged from previous at this time with any exceptions noted in the flowsheet. Patient denies further needs and is left with call light and personals in reach. [employer] [id number] Nurse Note* Nursing Notes - Lily Gill RN - 05/09/2023 11:42 AM EDT Patient is admitted to Med Surg floor [facility] [id number] Nurse Note* Nursing Notes - Galilea Rodrigues [...] be discharged home later today. [facility]06-20-2023 Nurse Note* Nursing Notes - Diamond Alves RN - 05/09/2023 8:31 AM EDT Oxycodone 10 mg verified by this RN and administered to patient by Keira GUTIERREZ, unable to scan in [facility] due to connectivity issues. [facility]06-20-2023 Surgery Postoperative evaluation and management note* Op Note - Lazarus Coronado MD - 05/09/2023 8:25 AM EDT DATE OF PROCEDURE: May 08, 2023 ATTENDING PHYSICIAN: Lazarus Coronado M.D. SPORTS MEDIA: Mone Watson CNP PREOPERATIVE DIAGNOSIS: Severe right [...] I referenced this against the flexion gap, [place]'s line, and the epicondylar axis as well. I then used an anterior referencing stylus and sized it to a size 7. At this point then, the 4:1 cutting block was pinned into place, and all four cuts were performed. The flexion space was opened up with the lamina sterile technician, and the medial and lateral menisci were [...] of motion and anatomic tracking at the [place] patella. Thus, the patella itself was flipped [...] procedure) without the assistance of a skilled ophthalmic surgical assistant. A ophthalmic surgical assistant was medically necessary for positioning, retraction and instrume ntation. [employer] Work Phone: [phone] Hospital course Narrative* Shahzad Whiting MD - [...] by Nasal route once for 1 dose. [place] into the nose as directed. Call 911. [...] per tablet Commonly known as: PERCOCET Follow-up: [facility] OP Therapy ext: [phone] Follow up on 05/10/2023 Outpatient therapy appointment scheduled for Monday at 4:30 pm, please arrive at 4:15 pm for theregistration process. Bring insurance cards and photo ID. Upcoming Appointments (up to five)-Some appointments for Medical Center outpatient clinics or diagnostic testing locations are not displayed below Provider Department Dept Phone 06/01/2023 11:40 AM [facility] Orthoped[facility] [phone] documented in this encounterAden[facility]06-[facility]23 Nurse Note* Nursing Notes - Denise Treviño [...] Call light and bedside table within reach. [facility]-19[facility] Nurse Note* Nursing Notes - Denise Treviño [...] and bedside table within reach. [facility]06-19-2023 Consult note* Shahzad Whiting MD - [...] Laterality: Left; Surgeon: Lazarus Coronado MD; Location: [facility] OR BACK SURGERY 2015 x2 NECK [...] BPH - home Rx. Voiding. Monitor UO. CYNTHAI - CPAP at home setting. Anemia - follow H&H. IFG - HgbA1C normal. No need to monitor BS's. 75 minutes total time. Shahzad Whiting MD 05/08/2023 [facility]06-19-2023 Consult note* Shahzad Whiting MD - [...] Laterality: Left; Surgeon: Lazarus Coronado MD; Location: [facility] OR BACK SURGERY 2016 x2 NECK [...] Shahzad Whiting MD 05/08/2023 documented in this encounterAdena Health System06-19-2023 Nurse Note* Nursing Notes - Keira Qiu RN - 05/08/2023 3:00 PM EDT Assessment is complete and remains unchanged from previous at this time with any exceptions noted in the flowsheet. Patient denies further needs and is left with call light and personals in reach. [facility] Nurse Note* Nursing Notes - Keira Qiu [...] light and personals inreach, family at bedside. [facility] Nurse Note* Chyna Atkins RN - 05/08/2023 10:50 AM EDT Patient discharged from PACU. Patient transported via bed to room 3752. Bed in lowest position calllight within reach. No other complaints at this time. Report given to Keira GUTIERREZ. * Debi Wiggins RN - 05/08/2023 9:11 AM EDT OR 4 Temp: 66.0' Hum: 42.0% documented in this encounterAdena Health System06-19-2023 Nurse Surgical operation note* Chyna Atkins RN - 05/08/2023 10:50 AM EDT Patient discharged from PACU. Patient transported via bed to room 3752. Bed in lowest position calllight within reach. No other complaints at this time. Report given to Keira GUTIERREZ. [facility] Hospital Discharge instructions* Discharge Instructions* Keira Qiu [...] - 05/08/2023 10:46 AM EDT Contact Office ([phone]) if: > Total Knee ROM < 90 [...] any tape over you ABD pad. Your HLOLY hose are to hold your pad in place. When you go home after surgery, you may have one or more drains in place to help your wounds heal. Hemovac, Marvin Goetz(EJFFERY) and Jose are common drains used for [...] Home Care, please call Dr. Coronado's nurse ([phone]) the morning after discharge with the recorded [...] be sent through Care Everywhere. * celecoxib (Jordanian) * docusate (oral/rectal) (Jordanian) * oxycodone (Jordanian) documented in this [facility]06-19-2023 Surgery Postoperative evaluation and management note* Brief Op Note - PRINCE Yo - 05/08/2023 10:19 AM EDT POST OPERATIVE/PROCEDURE NOTE Seth Bell 67 y.o. male [id number] SURGEON Surgeon(s) and Role: * Lazarus Coronado MD - Primary SPORTS MEDIA PRINCE Yo ANESTHESIOLOGIST ASSISTANT CORPORATION COUNSEL: MERRY Steele; MERRY Hutchinson SURGICAL STAFF Parts Room Assistant: Shelley Brown RN; Debi Wiggins RN Nurse Practitioner: PRINCE Yo Scrub Person: Sarita Lizama RN Gravity Flow Irrigator: Mahesh Armstrong LPN PROCEDURE PERFORMED Procedure(s) (LRB): [...] Implant Name Type Inv. Item Serial No. Forestry Laborer Lot No. LRB No. Used Action PALACOS R 1 X 40 US - [id number] PALACOS R 1 X 40 US [id number] Right 2 Implanted PATELLA - KNEE - [id number] PATELLA - KNEE [id number] Right 1 Implanted FEMUR - KNEE - [id number] FEMUR - KNEE [id number] Right 1 Implanted Attune Knee System Tibial Base Fixed Bearing DEPUY [id number] Right 1 Implanted INSERT - KNEE - [id number] INSERT - KNEE [id number] Right 1 Implanted SPECIMENS ID Type Source Tests Collected by Time Destination 1 : Bone RIght Knee Permanent TISSUE SURGICAL PATHOLOGY REQUEST Lazarus Coronado MD 05/08/2023 0914 Mone Watson APRN-EXECUTIVE COMPENSATION ANALYST May 08, 2023 10:20 AM [facility]06-19-2023 Nurse Surgical operation note* Debi Wiggins RN - 05/08/2023 9:11 AM EDT OR 4 Temp: 66.0' Hum: 42.0% [facility]05-26-2023 Evaluation note* Encounter Date Diagnosis Assessment [...] knee (ICD-10 - M17.11) Scheduled for [facility] [employer] Other 05-04-2023 History of Present illness Narrative* Sneha Busby LPN - 03/23/2023 10:00 AM EDT Ortho Nurse - Established Patient Intake Room#: 2--Visit today is a 4 month post-op check of Left MIKE (D/A)--10-10-22. His pain today is a 6. Has complaints of stiffness. Date: 03/23/2023 10:20 AM Patient: Seth Bell MR#: [id number] : 1955 Age: 67 y.o. Referring Physician: [...] a right total knee arthroplasty for optimal snf management. Patient is also here today for [...] joint space, subchondral sclerosis, osteophyte formation, and aeva-ht-wwrk contact. AP hip and pelvis films demonstrate [...] of limb, and ultimately loss of life. detention expectations, risks and general implant survivorship were also discussed. Despite these risks, the patient would like to proceed with surgical planning. Today, we will initiate the pre- surgical process including nasal MRSA screening, scheduling an appointment for [facility] and the potential surgical date, and reviewing [...] 03/23/2023 10:20 AM Patient: Seth Bell MR#: [id number] : 1955 Age: 67 y.o. Referring Physician: [...] has No Known Allergies. documented in this encounterAdena Health System01-16-2023 Hospital Discharge instructions Patient Education 12/05/2022 08:07:53 [...] urethra. Follow these instructions at home: Take dnrs-duu-zlfwuuz and prescription medicines only as told by [...] 11/06/2006 Document Revised: 10/01/2019 Document Reviewed: 12/11/2017 [employer] Patient Education 2020 [employer]. Follow Up Care 12/03/2021 10:50:50 With:SHAUN SHEETS, TOO Duffy Address: [facility] [address] , [place] [address]- When: Unknown [facility] 12-08-2022 NoteCONSULTATION CONSULTATION DATE: 10/27/2022 HISTORY OF PRESENT ILLNESS: This is a 67-year-old gentleman returning to the clinic for a three month follow up for his chronic lower back pain and hip pain. Since his last visit in July, the patient had a left total hip replacement and is overall doing wonderful. It was completed at [facility] in [place] by Dr. Coronado. The patient is recovering [...] in three months' time unless otherwise indicated.[facility] [id number] Miscellaneous Notes* Nursing Notes - Keira Qiu [...] PROCEDURE: 10/10/2022 ATTENDING PHYSICIAN: Lazarus Coronado M.D. SPORTS MEDIA: Mone Watson CNP. PREOPERATIVE DIAGNOSES: 1. Severe [...] INDICATIONS: Seth is an established patient of [facility]. She is a very pleasant, 66-year-old female [...] induced. The patient was repositioned on the Palmetto table for anterior hip surgery. The operative [...] and then secured its position with the Palmetto table lift. With adequate exposure of the [...] procedure) without the assistance of a skilled ophthalmic surgical assistant. A ophthalmic surgical assistant was medically necessary for positioning, retraction [...] 10/10/2022 1:00 PM EST Report received from CUSTOMER SERVICE REP. Patient hooked up to tele and vitals at this time. Call light within reach and bed in low position. * Brief Op Note - PRINCE Yo - 10/10/2022 11:42 AM EST POST OPERATIVE/PROCEDURE NOTE Seth Bell 66 y.o. male [id number] SURGEON Surgeon(s) and Role: * Lazarus Coronado MD - Primary SPORTS MEDIA PRINCE Yo ANESTHESIOLOGIST ASSISTANT CORPORATION COUNSEL: MERRY Rodriguez SURGICAL STAFF Parts Room Assistant: Imelda Gilbert RN; Lisa Bueno RN Nurse Practitioner: PRINCE Yo Radio Repairman: Don Snider; Refugio De Leon PROCEDURE PERFORMED [...] Implant Name Type Inv. Item Serial No. Forestry Laborer Lot No. LRB No. Used Action bi mentum press fit cup 53 [id number] Left 1 Implanted femoral stem sz 6 DEPUY [id number] Left 1 Implanted femoral head 28mm DEPUY [id number] Left 1 Implanted bi mentum liner DEPUY [id number] Left 1 Implanted SPECIMENS ID Type Source Tests Collected by Time Destination 1 : left femoral head Permanent TISSUE SURGICAL PATHOLOGY REQUEST Lazarus Coronado MD 10/10/2022 1045 PRINCE Yo October 10, 2022 11:42 AM * Nursing Notes - Brittani Honeycutt RN - 09/15/2022 10:07 AM EDT 09/15/22 1004 Information Source Information Source patient ;child Contact Information Apron Man Name Brittani Honeycutt RN Case Manager's Living [...] assist with discharge plans. documented in this encounterAdena Health System11-22-2022 Note* Nursing Notes - Keira Qiu RN [...] LE in reclincer: QS,GS,SAQ,AP, heel slide, LAQ h39ydjo ea. Pt trans sit to stand Patricia [...] 83.6 kg (184 lb 3.2 oz) [place] body weight: 61.5 kg (135 lb 9.3 [...] Dietitian, Licensed Dietitian 10/11/22 * Mone Watson APRN-EXECUTIVE COMPENSATION ANALYST - 10/11/2022 6:52 AM EST Total Joint [...] 0 Equipment Available wheeled walker;shower chair;elevated toilet seat;sock-aid;regional administrative assistant;long-handled shoe horn;long handle sponge Cognitive Status Examination Orientation Status (Cognition) oriented x 4 Level of Consciousness alert Able to Follow Commands (Communication) WNL Personal Safety and Judgment intact Sensory Examination Sensory Examination WFL Range of Motion (ROM) Range of Motion Examination bilateral upper extremity ROM was WFL Manual Muscle Testing (MMT) Dominant Hand right Transfer Skill: Sit to Stand, Rehab Eval Level of [place]: Sit/Stand contact guard Physical Assist/Nonphysical Assist: Sit/Stand 1 person assist Weight-Bearing Restrictions: Sit/Stand weight-bearing as tolerated Assistive Device for Transfer: Sit/Stand wheeled walker Upper Body Dressing Level of [place] independent Physical Assist/Nonphysical Assist set-up required Lower Body Dressing Level of [place] moderate assist (50% patients effort) Physical Assist/Nonphysical [...] for this session. Pt educated on utilizing regional administrative assistant and sock aid for LB dressing techniques Continue care plan yes Goals Goals For Discharge Pt will return home Discussed risk / benefits with patient;patient's family Therapist Recommendations At Discharge Recommendations OT Services not recommended at Discharge Plan Plan for next session continue with bathing, dressing, bathroom transfers and hygiene training Therapist Information License # [id number] 1. Pt will complete LB dressing MOD [...] Supine to Sit, Rehab Eval Level of [place]: Supine/Sit stand-by assist Physical Assist/Nonphysical Assist: Supine/Sit 1 person assist Transfer Skill: Sit To Stand, Rehab Eval [place] (Sit-Stand Transfers) contact guard Physical Assist/Nonphysical Assist: Sit/Stand 1 person assist Weight-Bearing Restrictions: Sit/Stand weight-bearing as tolerated Assistive Device For Transfer: Sit/Stand 2 wheeled walker Gait Skills, PT Eval Level of [place]: Gait contact guard Physical Assist/Nonphysical Assist: Gait [...] on acute pain regimen. documented in this [facility]11-22-2022 Note* Nursing Notes - Ly Lynn RN - 10/11/2022 10:52 AM EST Assessment is complete and remains unchanged from previous at this time with any exceptions noted in the flowsheet. Patient denies further needs and is left with call light and personals in reach. Will continue to monitor. [facility] Hospital course Narrative* Shahzad Whiting MD - [...] Use Authorization (EUA) for the qualitative detection ihTEOC-ToF-0 nucleic acid. XR FLUORO < 1 HOUR [...] Department Dept Phone 11/03/2022 10:40 AM [facility] Orth[facility] [phone] documented in this [facility]11-22-2022 Note* Op Note - Lazarus Coronado MD - 10/11/2022 7:33 AM EST DATE OF PROCEDURE: 10/10/2022 ATTENDING PHYSICIAN: Lazarus Coronado M.D. SPORTS MEDIA: Mone Watson CNP. PREOPERATIVE DIAGNOSES: 1. Severe [...] INDICATIONS: Seth is an established patient of [facility]. She is a very pleasant, 66-year-old female [...] induced. The patient was repositioned on the Palmetto table for anterior hip surgery. The operative [...] and then secured its position with the Palmetto table lift. With adequate exposure of the [...] procedure) without the assistance of a skilled ophthalmic surgical assistant. A ophthalmic surgical assistant was medically necessary for positioning, retraction and instrum entation. [employer] Work Phone: [phone] Note* Nursing Notes - Felecia Carrera RN - 10/11/2022 2:58 AM EST Pt assessment remains unchanged. Pt c/o 8-9/10 pain to L. Hip. Pt states pain is stinging. Dilaudid given- see MAR. Pt ambulated to BR to void at this time. Ice pack changed and applied to L. Hip. Denies any further needs at this time. Call light within reach. [facility]11-22-2022 Note* Nursing Notes - Felecia Carrera RN - 10/11/2022 12:31 AM EST Pt assessment remains unchanged. Pt c/o 5/10 pain to L. Hip. Medication given - see MAR. Fresh ice pack applied to L. Hip. Denies any further needs at this time. Call light within reach. [facility]11-21-2022 Note* Nursing Notes - Felecia Carrera RN - 10/10/2022 8:29 PM EST Pt assessment complete. POC reviewed with pt. Pt states pain to L.hip is 5/10. Medication given- see MAR. Ice pack applied to L. Hip. Denies any further needs at this time. Call light within reach. [facility]11-21-2022 Consult note* Shahzad Whiting MD - 10/10/2022 [...] Use Authorization (EUA) for the qualitative detection ftSWFX-YpI-6 nucleic acid. XR FLUORO < 1 HOUR [...] Shahzad Whiting MD - 10/10/2022 6:17 PM [facility]Gr[facility] Normanated Order(s): IP CONSULT TO GENERAL MEDICINE Medical [...] Use Authorization (EUA) for the qualitative detection peIQIN-VjE-2 nucleic acid. XR FLUORO < 1 HOUR [...] Shahzad Whiting MD 10/10/2022 documented in this encounterAdena Health System11-21-2022 Note* Nursing Notes - Ly Lynn RN - 10/10/2022 3:22 PM EST Assessment is complete and remains unchanged from previous at this time with any exceptions noted in the flowsheet. Patient denies further needs and is left with call light and personals in reach. Will continue to monitor. [facility] Discharge instructions* Discharge Instructions* Keira Qiu [...] Dr. Coronado. * Discharge Instr - Diet* Kiera Qiu RN - 10/10/2022 2:47 PM EST Resume home diet as tolerated. * Discharge Instr - Notify* Keira Qiu RN - 10/10/2022 2:47 PM EST Contact Office ([phone]) if: > Total Knee ROM < 90 [...] be sent through Care Everywhere. * celecoxib (Jordanian) * docusate (oral/rectal) (Jordanian) * oxycodone (Jordanian) documented in this encounterAdena Health System11-21-2022 Note* Nursing Notes - Ly Lynn RN - 10/10/2022 1:00 PM EST Report received from CUSTOMER SERVICE REP. Patient hooked up to tele and vitals at this time. Call light within reach and bed in low position. [facility] Nurse Note* Diamond Barillas RN - 10/10/2022 12:45 PM EST Discharged from PACU in stable condition. Transported via bed to room 3754 Bed placed in lowest position. Call light within reach. Report given to Jared RN documented in this encounterAdena Health System11-21-2022 Nurse Surgical operation note* Diamond Barillas RN - 10/10/2022 12:45 PM EST Discharged from PACU in stable condition. Transported via bed to room 3754 Bed placed in lowest position. Call light within reach. Report given to Jared RN [facility] Note* Brief Op Note - PRINCE Yo - 10/10/2022 11:42 AM EST POST OPERATIVE/PROCEDURE NOTE Seth Bell 66 y.o. male [id number] SURGEON Surgeon(s) and Role: * Lazarus Coronado MD - Primary SPORTS MEDIA PRINCE Yo ANESTHESIOLOGIST ASSISTANT CORPORATION COUNSEL: MERRY Rodriguez SURGICAL STAFF Parts Room Assistant: Imelda Gilbert RN; Lisa Bueno RN Nurse Practitioner: PRINCE Yo Radio Repairman: Don Snider; Refugio De Leon PROCEDURE PERFORMED [...] Implant Name Type Inv. Item Serial No. Forestry Laborer Lot No. LRB No. Used Action bi mentum press fit cup [id number] Left 1 Implanted femoral stem sz 6 DEPUY [id number] Left 1 Implanted femoral head 28mm DEPUY [id number] Left 1 Implanted bi mentum liner DEPUY [id number] Left 1 Implanted SPECIMENS ID Type Source Tests Collected by Time Destination 1 : left femoral head Permanent TISSUE SURGICAL PATHOLOGY REQUEST Lazarus Coronado MD 10/10/2022 1045 Mone Watson, ON SITE CONSTRUCTION SUPERINTENDENT-EXECUTIVE COMPENSATION ANALYST October 10, 2022 11:42 AM [facility] [employer]10-27-2022 Note* Nursing Notes - Brittani Honeycutt RN - 09/15/2022 10:07 AM EDT 09/15/22 1004 Information Source Information Source patient ;child Contact Information Apron Man Name Brittani Honeycutt RN Case Manager's Living [...] to follow and assist with discharge plans. [employer] [id number] History of Present illness Narrative* Sneha Busby [...] 08/03/2022 2:26 PM Patient: Seth Bell MR#: [id number] : 1955 Age: 66 y.o. Referring Physician: [...] [x]cane, []bracing Are you followed by a generator repairer? [x] [] Name: [facility] cariology group Are you followed [...] a left total hip arthroplasty for optimal snf management. PHYSICAL EXAM: This is an alert, [...] of jointspace, subchondral sclerosis, osteophyte formation, and udrx-cp-paxo contact. Available radiographsfrom 08/2021 appeared normal. IMPRESSION: [...] of limb, and ultimately loss of life. moth exterminator expectations, risks and general implant survivorship were also discussed. Despite these risks, the patient would like to proceed with surgical planning. Today, we will initiate the pre-surgical process including nasal MRSA screening, scheduling an appointment for [facility] and the potential surgical date, and reviewing [...] Rfl: Not on File documented in this [facility]09-01-2022 NoteCONSULTATION CONSULTATION DATE: 07/21/2022 HISTORY OF PRESENT [...] on 08/18/[address] Lazarus Coronado at [facility], with the intention of moving [...] following his appointment with Dr. Coronado in [place] regarding his hip consultation. He will be seen in the clinic in three months' time unless otherwise indicated.[facility] [id number] NotePROCEDURE DETAILS Preoperative Diagnosis: 1. Conductive hearing loss 2. Otosclerosis Postoperative Diagnosis: 1. Conductive hearing loss 2. Otosclerosis Surgeon: Bob Resident/Fellow/Other Preventive Maintenance Engineer: Zeenat Procedure: 1. Left stapedectomy Estimated Blood [...] of operating microscope. Surgeon: Jamie Rojas MD Preventive Maintenance Engineer surgeon: Leila Epperson MD Anesthesia: General Endotracheal. [...] footplate was measured. Using the laser, a daliln was created in the footplate. The small fenestration was created with a 0.7 mm fluted microdrill. A 4.75 x 0.6 mm, 360-degree Eclipse nitinol-based piston [place] [employer] was then placed and crimped onto [...] was awakened and tr (more content not included)...[facility] 05-11-2022 NoteHistory & Physical Reviewed: [...] Completion Last Updated: 11-May-2022 10:07 by Jamie Rojas)[facility]04-28-2022 NoteDiagnoses/Problems Blood tests prior to [...] affect Diagnostic testing: The audiogram by Dr. aDvila showed moderate mixed hearing loss on the [...] This note was created using speech recognition top lifter software/or [employer] top lifter services. Despite proofreading, several typographical errors might be present that might affect the meaning of the content. Please call with any questions. By signing my name below, I, Amie Lowe, (more content not included)... TouchworksEvaluation + Plan note Future Appointments Appointment Date:12/08/2023 08:30:00 AM Scheduled Provider:Ailyn DUNN MD Location:[facility] Appointment Type:URO Office Visit Diagnostic Tests Pending * PSA Total 12/05/22 [facility] evaluation + Plan note Future Appointments Appointment Date:12/20/2024 08:30:00 AM Scheduled Provider:Ailyn DUNN MD Location:[facility] Appointment Type:URO Office Visit Diagnostic Tests Pending * PSA Total 01/01/24 [facility] evaluation + Plan note Future Appointments Appointment Date:12/20/2024 08:30:00 AM Scheduled Provider:Ailyn DUNN MD Location:[facility] Appointment Type:URO Office Visit [facility] evaluation + Plan note Future Appointments Appointment Date:12/20/2024 08:30:00 AM Scheduled Provider:Ailyn DUNN MD Location:[facility] Appointment Type:URO Office Visit Future Scheduled Tests Laboratory* Creatinine 06/27/24 [facility] evaluation note* Diagnosis Left hip pain Pain in joint, pelvic region and thigh documented in this encounter [facility] System[facility] note* Diagnosis Left hip pain- Primary Pain in joint, pelvic region and thigh documented in this encounter [facility] System[facility] note* Diagnosis Postoperative wound infection of left hip- Primary Other postoperative infection Preop testing Preoperative examination, unspecified Encounter for preoperative screening laboratory testing for COVID-19 virus Primary osteoarthritis of left hip Primary localized osteoarthrosis, pelvic region and thigh Primary osteoarthritis of left hip Primary localized osteoarthrosis, pelvic region and thigh documented in this encounter [employer] note* Diagnosis Hx of total hip arthroplasty, left- Primary Right knee pain, unspecified chronicity documented in this encounter [facility] SystemEvaluation noteNo [facility] [employer] Other evaluation note* Diagnosis Acute postoperative pain of left knee- Primary Primary osteoarthritis of right knee Primary localized osteoarthrosis, lower leg Osteoarthritis of right knee Osteoarthrosis, unspecified whether generalized or localized, lower leg documented in this encounter [employer] noteNort [employer] Other Evaluation note* Diagnosis Hx of total knee arthroplasty, right- Primary documented [facility]* Diagnosis Right inguinal hernia Inguinal hernia [...] 202 2 Hospitalization History SEE SURGICAL HX [employer] Other History general Narrative - Reported* Type [...] TKA 04/2023` Hospitalization History SEE SURGICAL HX [employer] Other History general Narrative - ReportedNort [employer] Other Hisncss general Narrative - Reported* Type Description Date [...] EGD 05/2023 Hospitalization History SEE SURGICAL HX [employer] Other History of Present illness Narrative* History [...] my professional assessment of this patient s wire transfer 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 * This note was created using speech recognition top lifter software/or [employer] top lifter services. Despite proofreading, several typographical errors might [...] stapedectomy for otosclerosis is an elective procedure. 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 * This note was created using speech recognition top lifter software/or [employer] top lifter services. Despite proofreading, several typographical errors might [...] stapedectomy for otosclerosis is an elective procedure. CP-[id number]-[id number] Work Phone: Hospital course Narrative No data available for this section [facility] Discharge instructions No data available for this section [facility] [place] Progress note No data available for this section [facility] reason for visit Narrative* Auth/Cert Specialty Diagnoses / Procedures Referred By Dodie silverman Referred To Contact Diagnoses Primary osteoarthritis of left hip Primary osteoarthritis of left hip [M16.12] Procedures MA TOTAL HIP ARTHROPLASTY ARTHROPLASTY HIP TOTAL ANTERIOR APPROACH Lazarus Coronado MD [address] [phone] Referral ID Status Reason Start Date Expiration Date Visits Re quested Visits Authorized [id number] 08/15/2022 1 1 [employer] Summary Purpose Family History No Family History [...] HIP WITH PELVIS LEFT Lazarus Coronado MD [address] [place] [phone] Referral ID Status Reason Start Date Expiration Date V isits Requested Visits Authorized [id number] Pending Review 08/03/2022 08/28/2023 1 1 Specialty Diagnoses / Procedures Referred By Contac t Referred To Contact Diagnoses Right knee pain, unspecified chronicity Procedures XR KNEE RIGHT 4+ VIEWS Lazarus Coronado MD [address] [place] [phone] Referral ID Status Reason Start Date Expiration Date V isits Requested Visits Authorized [id number] New Request 03/23/2023 04/16/2024 1 1 Specialty Diagnoses / Procedures Referred By Contac t Referred To Contact Diagnoses Right knee pain, unspecified chronicity Procedures XR BONE LENGTH STUDY Lazarus Coronado MD [address] [place] [phone] Referral ID Status Reason Start Date Expiration Date V isits Requested Visits Authorized [id number] New Request 03/23/2023 04/16/2024 1 1 Referral ID Status Reason Start Date Expiration Date V isits Requested Visits Authorized [id number] New Request 03/23/2023 04/16/2024 1 1 Specialty Diagnoses / Procedures Referred By Contac t Referred To Contact Diagnoses Hx of total hip arthroplasty, left Procedures XR HIP WITH PELVIS LEFT Lazarus Coronado MD [address] [place] [phone] Referral ID Status Reason Start Date Expiration Date V isits Requested Visits Authorized [id number] New Request 03/07/2023 03/31/2024 1 1 Specialty Diagnoses / Procedures Referred By Contac t Referred To Contact Physical Therapy Diagnoses Acute postoperative pain of left knee Mone Watson, [employer] S[employer] SUPERINTENDENT-EXECUTIVE COMPENSATION ANALYST [address] [place] [address] Referral ID Status Reason Start Date Expiration Date V isits Requested Visits Authorized [id number] New Request 05/08/2023 06/01/2024 1 1 Scheduling Instructions . Specialty Diagnoses / Procedures Referred By Contac t Referred To Contact Diagnoses Hx of total knee arthroplasty, right Procedures XR KNEE RIGHT 3 VIEWS Mone Watson, [employer] SITE CONSTRUCTION SUPERINTENDENT-EXECUTIVE COMPENSATION ANALYST [address] [place] [address] Referral ID Status Reason Start Date Expiration Date V isits Requested Visits Authorized [id number] New Request 05/24/2023 06/17/2024 1 1 Additional Source Comments (unrecognized sect ion and content) No Status Records FoundNo Status Records FoundNo Status Records FoundNo Status Records FoundNo Status Records FoundNo Status Records FoundNo Status Records FoundNo Status Records FoundNo Status Records Found INFORMATION SOURCE (unrecogn ized section and content) DATE CREATED AUTHOR 12/15/2021 [facility] DATE CREATED AUTHOR AUTHOR'S ORGANIZ ATION 07/17/2022 [employer] DATE CREATED AUTHOR AUTHOR'S ORGANIZ ATION 07/18/2022 [facility] DATE CREATED AUTHOR AUTHOR'S ORGANIZ ATION 03/31/2023 [facility] DATE CREATED AUTHOR AUTHOR'S ORGANIZ ATION 06/08/2023 [facility] DATE CREATED AUTHOR AUTHOR'S ORGANIZ ATION 06/27/2023 [facility] DATE CREATED AUTHOR AUTHOR'S ORGANIZ ATION 05/20/2024 [facility] DATE CREATED AUTHOR AUTHOR'S ORGANIZ ATION 09/10/2024 [facility] DATE CREATED AUTHOR AUTHOR'S ORGANIZ ATION 09/19/2024 [facility] Reason for Visit (unrecogniz ed section and content) Specialty Diagnoses / Procedures Referred By Contac t Referred To Contact Diagnoses Left hip pain Procedures XR HIP WITH PELVIS LEFT Lazarus Coronado MD [address] [place] [address] Referral ID Status Reason Start Date Expiration Date V isits Requested Visits Authorized [id number] Pending Review 08/03/2022 08/28/2023 1 1 Reason Comments Pain New Patient Specialty Diagnoses / Procedures Referred By Contac t Referred To Contact Diagnoses Hx of total hip arthroplasty, left Procedures XR HIP WITH PELVIS LEFT Mone Watson, [employer] S[employer] CONSTRUCTION SUPERINTENDENT-EXECUTIVE COMPENSATION ANALYST [address] [place] [phone] Referral ID Status Reason Start Date Expiration Date V isits Requested Visits Authorized [id number] New Request 10/27/2022 11/21/2023 1 1 Specialty Diagnoses / Procedures Referred By Contac t Referred To Contact Diagnoses Hx of total hip arthroplasty, left Procedures XR HIP WITH PELVIS LEFT Lazarus Coronado MD [address] [place] [phone] Referral ID Status Reason Start Date Expiration Date V isits Requested Visits Authorized [id number] New Request 03/07/2023 03/31/2024 1 1 Specialty Diagnoses / Procedures Referred By Contac t Referred To Contact Diagnoses Right knee pain, unspecified chronicity Procedures XR BONE LENGTH STUDY Lazarus Coronado MD [address] [place] [phone] Referral ID Status Reason Start Date Expiration Date V isits Requested Visits Authorized [id number] New Request 03/23/2023 04/16/2024 1 1 Reason Comments Post Op Visit Specialty Diagnoses / Procedures Referred By Contac t Referred To Contact Diagnoses Primary osteoarthritis of right knee Primary osteoarthritis of right knee [M17.11] Procedures MA TOTAL KNEE ARTHROPLASTY ARTHROPLASTY KNEE TOTAL Lazarus Coronado MD [address] [place] [phone] Referral ID Status Reason Start Date Expiration Date Visits Re quested Visits Authorized [id number] 03/29/2023 1 1 Reason Comments Post Op [...] General Surgery Diagnoses Right inguinal hernia Procedures MA OFFICE/OUTPATIENT [facility] 60 MINUTES Stevan Galdamez MD [address] [place] [facility] [place] [address] Phone: tel: fax: Sarah Hooks, DO [address] [place] [address] Phone: tel: fax: Referral ID Status Reason Start Date Expiration Date V isits Requested Visits Authorized [id number] Closed Specialty Services Required 09/04/2024 03/03/2025 1 1 Care Teams (unrecognized sec tion and content) Waitstaff Captain Relationship Specialty Start Date End Date Stevan Galdamez DO [address] [place] [place] [facility] [place] [address] PCP - General Internal Medicine 08/03/22 Waitstaff Captain Relationship Specialty Start Date End Date Stevan Galdamez DO [address] [place] [facility] [place] [facility] [place] [address] PCP - General Internal Medicine 08/03/22 Waitstaff Captain Relationship Specialty Start Date End Date Stevan Galdamez DO [address] [place] [facility] [place] [facility] [place] [address] PCP - General Internal Medicine 08/03/22 Waitstaff Captain Relationship Specialty Start Date End Date Stevan Galdamez, DO [address] [place] [facility] [place] [address] PCP - General Internal Medicine 08/03/22 Waitstaff Captain Relationship Specialty Start Date End Date Stevan Galdamez DO [address] [place] [facility] [place] [facility] [place] [address] PCP - General Internal Medicine 08/03/22 Waitstaff Captain Relationship Specialty Start Date End Date Stevan Galdamez, DO [address] [place] [facility] [place] [address] PCP - General Internal Medicine 08/03/22 Waitstaff Captain Relationship Specialty Start Date End Date Stevan Galdamez DO [address] [place] [facility] [place] [address] PCP - General Internal Medicine 08/03/22 Waitstaff Captain Relationship Specialty Start Date End Date Stevan Galdamez DO [address] [place] [facility] [place] [facility] [place] [address] PCP - General Internal Medicine 08/03/22 Waitstaff Captain Relationship Specialty Start Date End Date Stevan Galdamez DO [address] [place] [facility] [place] [facility] [place] [address] PCP - General Internal Medicine 08/03/22 Waitstaff Captain Relationship Specialty Start Date End Date Stevan Galdamez MD [address] [place] [facility] [place] [address] PCP - General Internal Medicine 09/04/24 Waitstaff Captain Relationship Specialty Start Date End Date Stevan Galdamez MD [address] [place] [facility] [place] [address] PCP - General Internal Medicine 09/04/24 [...] 2 g, Intravenous, Administer over 30 Minutes, SLASH TRIMMER TO PROCEDURE, 1 dose, Starting on Mon10/10/22 [...] Discontinued, Post-op/Post-Proc 1057 (Not Given - Provider: Keria Qiu RN - Reason: Other)1650 (Given - [...] the AM.) 0833 (Given - Provider: Keira Qiu RN) Metoprolol [...] 2 g, Intravenous, Administer over 30 Minutes, SLASH TRIMMER TO PROCEDURE, 1 dose, Starting on Mon05/08/23 at 0708, Until Discontinued, Other, Pre-operative antibiotic, For 15 Minutes, Pre-op/Pre-Proc 0847 (Given - Provider: Boy Vidal, [employer] SITE CONSTRUCTION SUPERINTENDENT-ASSISTANT CORPORATION COUNSEL) Celecoxib (CELEBREX) capsule 200 mg (COMPLETED) 200 [...] BE BASED ON THE PRIMARY CLINICAL RECORDS. [facility]. provides no warranty or guarantee of the accuracy or completeness of information in this document.
[2024-09-24] MEDS: LACTATED RINGER'S SOLUTION 1,000 ML 50 ML IV ×4 (08:04→13:26)
[2024-09-24] MEDS: CEFAZOLIN SODIUM 2 GM/50 ML D5W PREMIX IV (08:33)
--- NOTE | 2024-09-24 08:57 | P.ON_ITS ---
Date of procedure: 09/24/24 Pre-op diagnosis: right symptomatic inguinal hernia Post-op diagnosis: same as pre-op Procedure: Robotic laparoscopic right inguinal hernia repair with TAP block The patient was brought to the operating room and placed supine on the operating room table. Cardiopulmonary monitoring was initiated. General anesthesia was induced without any complication. A time-out was performed.? Pre-operative antibiotics were given. EPC cuffs were on the lower extremities. Both arms were tucked. The abdomen was prepped and draped in the usual sterile fashion. The abdomen was entered approximately 12-14 cm distal to the xyophoid process and to the left of the midline. To do this a skin incision was made. A 5mm 0 degree laparoscope was then introduced using an optical access trocar. Pneumoperitoneum was then established through this trocar. Once pneumoperitoneum was created 2 additional 8 mm DA Shayy ports were placed under direct visualization in the mid and left abdomen along the same line just superior to the umbilicus. The 5mm optiview port was then upsized to a 8mm robotic port under direct visualization.? Prior to proceeding with the operation, an intraoperative TAP block was performed. ?Under visualization with the laparoscope, a needle was inserted perc utaneously and, confirming that I was in the right plane, 30 mL of a mixture of Ropivacaine and Decadron were injected on both sides for a total of 60 ml. ?Good separation of the muscle planes was seen bilaterally indicating good placement of the anesthetic solution. The robot was then docked and a 30 degree robotic scope was placed into the abdomen.? Both inguinal regions were inspected and the median umbilical ligament, medial umbilical ligaments, and lateral umbilical folds were identified.? A right indirect hernia was noted.? There was no left inguinal hernia on inspection. The peritoneum on the right side was incised with scissor electrocautery along a line 2 cm above the superior edge of the hernia defect, extending from the medial umbilical ligament to the anterior superior iliac s pine. ?The peritoneal flap was mobilized inferiorly using blunt dissection.? Blunt dissection was down from the ASIS to the lateral edge of the internal ring.? The inferior epigastric vessels were exposed and kept superior to the dissection planes at all times during the operation.? Medial dissection was done until Jaiden's ligament was exposed.? The cord structures and hernia sac were identified. Cord structures were preserved during the dissection and reduction of hernia sac.? The cord structures were dissected free from the hernia sac circumferentially. The hernia sac containing fat was reduced from the . Hemostasis was maintained. A Critical view of the nicole-pectineal orifice was achieved. Once dissection was completed, a 15 cm x 9 cm piece of [employer] Progrip mesh was rolled double scroll and placed within the peritoneum flap.? The mesh was centered over the deep inguinal ring and unrolled to cover direct and indirect hernia spaces. It was noted to lay flat, in good position and without crimpage. The peritoneum was closed with running 2-0 V lock suture. The intra-abdominal cavity was grossly inspected there were no signs of bleeding or any other injury. The robot was undocked without complications. The pneumoperitoneum was evacuated through the remaining robotic ports and the ports removed. The port sites were closed with 4-0 Monocryl suture and then skin glue material was applied. The patient tolerated the procedure well and was transferred to the recovery room in satisfactory condition. All instruments, sharps and sponges were accounted for. Anesthesia: GETA Surgeon: Chad Blanco Estimated blood loss (mL): 5 Pathology: none sent Condition: stable Disposition: PACU
[2024-09-24] MEDS: BUPIVACAINE LIPOSOME/PF 266 MG/13.3 ML VIAL INJ (09:13)
[2024-09-24] MEDS: 0.9 % SODIUM CHLORIDE 10 ML 20 ML INJ ×2 (09:13)
[2024-09-24] MEDS: BUPIVACAINE HCL 0.25% PF 25 MG/10 ML VIAL 20 ML INJ (09:13)
[2024-09-24] MEDS: HYDROMORPHONE HCL 0.5 MG/0.5 ML SYRINGE IV ×4 (11:03→11:32)
[2024-09-24] MEDS: OXYCODONE HCL/ACETAMINOPHEN 5MG/325MG 1 TAB PO (11:20)
--- NOTE | 2024-09-24 14:36 | PC.NURSE ---
1436- Patient unable to void. Bladder scanned for 492cc of urine. Patient requesting that he be given more time to void on his own.
--- NOTE | 2024-09-24 14:50 | PC.NURSE ---
1450- Patient unable to void on his own. Dr. Blanco paged. 1500- Dr. Blanco returns page. Informed that patient is unable to void and informed of bladder scan results. New orders received. 1510- Patient straight cathed for 450cc of clear yellow urine. Patient tolerated procedure well.
== END 2024-09-24 15:19 | disposition home or self-care (01) ==
PROVIDERS: PCP Internal Medicine; Visit Provider Surgery
PROC: (CPT 49650; principal; 2024-09-24 08:15)
DX: K40.90 Unilateral inguinal hernia, without obstruction or gangrene, not specified as recurrent (principal); I10 Essential (primary) hypertension; I25.10 Atherosclerotic heart disease of native coronary artery without angina pectoris; G47.33 Obstructive sleep apnea (adult) (pediatric); F17.290 Nicotine dependence, other tobacco product, uncomplicated; Z95.5 Presence of coronary angioplasty implant and graft; E78.5 Hyperlipidemia, unspecified; G25.81 Restless legs syndrome; K21.9 Gastro-esophageal reflux disease without esophagitis; N40.0 Benign prostatic hyperplasia without lower urinary tract symptoms
CPT/HCPCS: 49650; 51701; 51798; C1781; J0665; J0690; J1171; J2250; J2405; J2704; J2710; J3010

== ENCOUNTER 2024-12-19 09:10 | Outpatient (OUT) | payer MEDICARE, SELFPAY ==
--- OUTSIDE RECORDS SUMMARY | 2024-12-19 09:24 | XMS_ITS | CCD ---
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 Name Role Phone Rudolph Stevan Johnson Unavailable Unavailable Unavailable Stevan Galdamez DO Primary Care Provider Stevan Galdamez DO Primary Care Provider [phone] STEVAN GALDAMEZ Primary Care Physician [phone] RUDOLPH, DR ZUÑIGA Primary Care Unavailable GONZALEZ ., MARIA EUGENIA Consulting Unavailable DUNN ., DR ANETA Gonzalez Attending Unavailable DUNN ., DR ANETA Gonzalez Admitting Unavailable BALL, DR ZUÑIGA Primary Care Unavailable LAKSHMIPATHY ., RUSLAN Admitting Laura vailable LAKSHMIPATHY ., RUSLAN Attending Laura vailable BALL, DR ZUÑIGA Admitting Unavailable BALL, DR [...] Admitting Unavailable HALKER ., ELIZ Attending Unavailable HALJUANY ., ELIZ Consulting Unavailable Stevan Galdamez Unavailable Steavn Galdamez DO Primary Care Provider MD ALAN HENLEY Attending Unavailable LAZARUS CORONADO Referring Unavailable RUDOLPH, STEVAN Primary Care Unavailable LAZARUS CORONADO Attending Unavailable FOSTER, LAZARUS Admitting Unavailable FOSTER, LAZARUS Referring Unavailable BALL, [...] Attending Unavailable JOAQUIM CHAUDHARY Attending Unavailable Ball , Stevan Johnson Primary Care Provider SARAH HOOKS Attending Unavailable BALL, STEVAN E Referring Unavailable SARAH HOOKS Attending Unavailable NILL, Bonifacio Dee Attending Unavailable [...] physicia Propensity to adverse reactions 7 Comment:Done OnShift Other (10 sources) Allergies Reconciled Propensity to adverse reactions Unknown OnShift Other (1 source) No Known Medication Allergies; 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: [No Known Medication Allergies] Propensity to adverse reactions (disorder) [facility] Repository Medications Current Medications Medication Drug Class(es) Dates Sig (Normalized) Sig (Original) 3mL syringe (5 sources) Start: 06-19-2020 3mL syringe 3mL syringe, See Instructions, 6 EA, 1, Use 1 syringe each month, [facility]/pharmacy #[id number], Supply, 179, cm, 06/05/20 11:23:00 EDT, [...] 1 tablet by mouth once daily finasteride (Proscar) 5 MG tablet Take 1 tablet by mouth Daily 12/13/2023 Active Start: 05-08-2023 End: 05-09-2023 take 5 mg [...] Daily, # 90 tab(s), Refills(s) 3, Pharmacy: [facility], 179, cm, 12/03/21 9:55:00 EST, Height/Length [...] oral tablet (20 sources) beta-Adrenergic Juvenal Start: 08-14-2024 take 1 tablet by mouth once daily metoprolol succinate XL (Toprol-XL) 50 MG 24 hr tablet Take 1 tablet by mouth Daily 08/14/2024 Active Start: 10-10-2022 End: 10-11-2022 take 25 mg [...] by Nasal route once for 1 dose. Lyons into the nose as directed. Call 911. [...] Start: 02-29-2024 take 1 tablet by mouth before mealtime pantoprazole (ProtoNix) 40 MG EC tablet Take 40 mg by mouth in the morning. Take before meals. 02/29/2024 Active Start: 06-14-2023 take 1 tablet by adiel [...] activity, # 30 tab(s), Refills(s) 3, Pharmacy: [facility], 179, cm, 12/05/22 9:44:00 EST, Height/Length [...] day(s), # 180 cap(s), Refills(s) 3, Pharmacy: [facility], 179, cm, 01/01/24 12:08:00 EST, Height/Length Dosing, 90, kg, 01/01/24 12:08:00 EST, Weight Dosing Start Date: 02/12/24 Stop Date: 02/06/25 Status: Ordered Start: 01-12-20[address] [facility] every twenty-four hours in the morning tamsulosin (Flomax) 0.4 MG 24 hr capsule Take 0.4 mg by mouth in the morning and 0.4 mg before bedtime. 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] Episodic Other aftercare (12 sources) Long-term current use of 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; 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: [Other 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) 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] Episodic Other aftercare (1 source) 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 (more content not included)... [facility] Reminderson 05-30-2024 Reminders Reminders From: Nati Shane LPN To: N - Clinical; Sent: 05/30/2024 12:26:52 EDT Show up: 04/29/2034 07:00:00 EDT Subject: colonoscopy recall Due Date/Time: 05/29/2034 07:00:00 EDT Reminder/Recall Patient due for screening colonoscopy 05/29/2034. [facility] Consent for Procedure/Surger n 04-24-2024 Consent for Procedure/Surgery [id number] F [facility] Ambulatory Visit Summaryon 0 04-23-2024 [...] Ailyn DUNN MD Where: [facility] Physician Referralon 024 Physician Referral [id number] [facility] Office Visiton 03-20-2024 Follow-up visit [id number] Lona Bell 1955 M Date Provider Department Center 03/20/2024 3848-JOAQUIM CHAUDHARY FLORENCIA Tsai Family History Problem Relation Age of Onset Dementia Mother Family Status - Relation Status Age at Mother Alive Father Level of Service:56471 [place] OFFICE/OUTPATIENT ESTABLISHED LOW MDM 20 MIN Normal [facility] Patient Educationon 01-01-20 24 Patient Education [...] Where to find more information ? The [place] [employer]: www.cancer.org ? [place] [employer]: www.auanet.org Contact a health care [...] flu (more content not included)... Normal [facility] Urology Office/Clinic Noteon 01-01-2024 Urology Office/Clinic [...] year [facility] [address], [place] [address]- [phone] Additional Instructions: w/ PSA Patient Education Prostate [...] times pe (more content not included)... Normal [facility] Comment on above: Result Comment: Elec tronically Signed By: Ailyn DUNN MD\.br\Date and Time Signed: 01/01/24 13:00 EST\.br\Electronically Co-Signed By: Pamela Quezada.antonio\Date and Time Co-Signed: 01/01/24 12:59 EST Lab Reportson 12-29-2023 Lab Reports [id number] F Normal [facility] SURGICAL PATH REPORTon 06-07 SURGICAL PATH REPORT [facility] Department of Pathology [address] [place] [address] Name: SETH BELL : 1955 Financial [id number] Number: Gender Male [facility] : n: Admit 67 years Attending ALAN HENLEY Age: Provider: Ordering ALAN HENLEY Provider: Consulti Surgical Pathology Report ng: ACCESSION: COLLECTED DATE/TIME: RECEIVED DATE/TIME: PATHOLOGIST: [id number] 06/03/2023 12:04 EDT 06/05/2023 12:04 EDT BHARTI SHEETS, MARK MELENDEZ Final Diagnosis Report for [facility] [place] ANTRAL STOMACH, BIOPSY: - ANTRAL TYPE [...] LICHA/adan 06/05/2023 Tissue pathology report for: [facility], [address] [place] [address]; ____ Print 06/07/2023 11:16 EDT Number: Date/Time: [facility] Department of Pathology [address] [place] [id number] Name: SETH BELL : 1955 Financial [id number] Number: [facility] : n: Admit 67 years Attending ALAN HENLEY Age: Provider: Ordering ALAN HENLEY Provider: Consulti Surgical Pathology Report ng: ACCESSION: COLLECTED DATE/TIME: RECEIVED DATE/TIME: PATHOLOGIST: [id number] 06/03/2023 12:04 EDT 06/05/2023 12:04 EDT BHARTI SHEETS, MARK MELENDEZ Gross Description PATHOLOGY SERVICES PROVIDED BY [employer] (CLIA #[id number]) in cooperation with [facility] at [address] [place] [address] (CLIA #[id number]) Microscopic Diagnosis The final diagnosis is based on a microscopic exam of technical service representative sections. NOTE: One or more of the reagents used to perform assays on this specimen MAY have contained components considered to be analyte specific reagents ( ASRs). ASRs have not been cleared or approved by the U.S. Food and Drug Administration. The performance characteristics of these assays have been determined by the Department of Pathology at [facility]. This assay was performed subsequent to the H and E examination. Appropriate positive and negative controls were examined with appropriate reactivity. Codes CPT CODE: 88781 + [id number] ____ Print 06/07/2023 11:16 EDT Number: Date/Time: Normal [facility] Comment on above: Performed By: #### 9 [id number] #### [facility] Laboratory Services [address] [place] [address] Manager Automotive: Rainer Doss MD BASIC METABOLIC PANELon 04-21 Anion gap [Moles/Vol] 7 mmol/L Low [facility] Calcium [Mass/Vol] 8.1 mg/dL Low [facility] Chloride [Moles/Vol] 103 mmol/L [facility] Comment on above: Please note: Triglyc eride levels of 600mg/dL or higher may positively bias chloride results by approximately 2.1 mmol CO2 [Moles/Vol] 22 mmol/L [facility] Creatinine [Mass/Vol] 0.60 mg/dL [facility] GFR COMMENT Average GFR for 60-6 9 years old = 85. [facility] Comment on above: Chronic Kidney disea se, GFR = <60. Kidney failure, GFR = <15. The GFR estimate is not adjusted for extreme body surface area or acute process, nor has it been validated for women or ethnic groups other than and . Testing performed at [place], [place] [address] GFR/1.73 sq M.predicted among blacks MDRD (S/P/Bld) [Vol rate/Area] 172 mL/min/{1.73_m2} ml/min/1.73s q.m [facility] GFR/1.73 sq M.predicted among non-blacks MDRD (S/P/Bld) [Vol rate/Area] 142 mL/min/{1.73_m2} ml/min/1.73s q.m [facility] Glucose post fast [Mass/Vol] 136 mg/dL [facility] Comment on above: NORMAL <100 mg/dL PREDIABETES 101-126 mg/dL DIABETES 126 mg/dL or higher Interpretation and review of laboratory results Abnormal [facility] Potassium [Moles/Vol] 4.0 mmol/L [facility] Sodium [Moles/Vol] 132 mmol/L [facility] Urea nitrogen [Mass/Vol] 18 mg/dL [facility] BMP FASTINGon 05-09-2023 Anion gap [Moles/Vol] 7 mmol/L Low 8-16 [facility] Comment on above: Performed By: #### B MPF ####Testing performed at [address] [address]#### ACBC ####Testing performed at [address] [address] Calcium [Mass/Vol] 8.1 mg/dL Low 8.4-10.2 [facility] Comment on above: Performed By: #### B MPF ####[place] [address]#### ACBC ####Testing performed at [address] [address] Chloride [Moles/Vol] 103 mmol/L Normal 98-[address] [facility] Comment on above: Result Comment: Grey romero note: Triglyceride levels of 600mg/dL or higher may positively bias chloride results by approximately 2.1 mmol Performed By: #### B MPF ####Testing performed at [address] [address]#### ACBC ####Testing performed at [address] [address] CO2 [Moles/Vol] 22 mmol/L Normal 22-30 [facility] Comment on above: Performed By: #### B MPF ####Testing performed at [address] [address]#### ACBC ####Testing performed at [address] [address] Creatinine [Mass/Vol] 0.60 mg/dL Low 0.7-1.2 [facility] Comment on above: Performed By: #### B MPF ####Testing performed at [address] [address]#### ACBC ####Testing performed at [address] [place] [address] EST. GFR, 172 ml/min/1.73sq.m [facility] Comment on above: Performed By: #### B MPF ####Testing performed at [address] [address]#### ACBC ####Testing performed at [address] [address] EST. GFR,Non 142 ml/min/1.73sq.m [facility] Comment on above: Performed By: #### B MPF ####Testing performed at [address] [address]#### ACBC ####Testing performed at [address] [address] GFR Information Average GFR for 60-6 9 years old = 85. Normal [facility] Comment on above: Result Comment: Swimming Pool Serviceperson katarzyna Kidney disease, GFR = <60. Kidney failure, GFR = <15. The GFR estimate is not adjusted for extreme body surface area or acute process, nor has it been validated for women or ethnic groups other than and . Testing performed at [place] [address] Performed By: #### B MPF ####[place] [address]#### ACBC ####[place] [address] Glucose [Mass/Vol] 136 mg/dL High 70-100 [facility] Comment on above: Result Comment: NORMAL <100 mg/dL PREDIABETES 101-126 mg/dL DIABETES 126 mg/dL or higher Performed By: #### B MPF ####Testing performed at [place] [id number]#### ACBC ####Testing performed at [place] [id number] Potassium [Moles/Vol] 4.0 mmol/L Normal 3.5-5.1 [facility] Comment on above: Performed By: #### B MPF ####Testing performed at [address] [address]#### ACBC ####Testing performed at [address] [address] Sodium [Moles/Vol] 132 mmol/L Low 137-145 [facility] Comment on above: Performed By: #### B MPF ####Testing performed at [place] [id number]#### ACBC ####Testing performed at [address] [address] Urea nitrogen [Mass/Vol] 18 mg/dL Normal 7-20 [facility] Comment on above: Performed By: #### B MPF ####Testing performed at [place] [id number]#### ACBC ####Testing performed at [address] [address] CBCon 05-09-2023 ABSOLUTE BAS 0.0 10*3/uL Normal 0.0-0.2 [facility] Comment on above: Performed By: #### B MPF ####Testing performed at [address] [address]#### ACBC ####Testing performed at [address] [address] ABSOLUTE EOS 0.0 10*3/uL Normal 0.0-0.7 [facility] Comment on above: Performed By: #### B MPF ####Testing performed at [address] [address]#### ACBC ####Testing performed at [address] [address] ABSOLUTE NEUTROPHIL COUNT 10.1 10*3/uL High 1.4-6.5 [facility] Comment on above: Performed By: #### B MPF ####Testing performed at [address] [address]#### ACBC ####Testing performed at [address] [address] Basophils/100 WBC (Bld) 0.0 % Normal 0.0-2.0 [facility] Comment on above: Performed By: #### B MPF ####Testing performed at [address] [address]#### ACBC ####Testing performed at [address] [address] DTYPE AUTO DIFF Normal [facility] Comment on above: Performed By: #### B MPF ####Testing performed at [address] [address]#### ACBC ####Testing performed at [address] [address] Eosinophils/100 WBC (Bld) 0.0 % Normal 0.0-11.0 [facility] Comment on above: Performed By: #### B MPF ####[place] [address]#### ACBC ####Testing performed at [address] [address] Lymphocytes (Bld) [#/Vol] 0.8 10*3/uL Low 1.2-3.4 [facility] Comment on above: Performed By: #### B MPF ####[place] [address]#### ACBC ####Testing performed at [address] [address] Lymphocytes/100 WBC (Bld) 6.7 % Low 20.0-55.0 [facility] Comment on above: Performed By: #### B MPF ####[place] [address]#### ACBC ####Testing performed at [address] [address] Monocytes (Bld) [#/Vol] 1.0 10*3/uL High 0.0-0.7 [facility] Comment on above: Performed By: #### B MPF ####[place] [address]#### ACBC ####Testing performed at [address] [address] Monocytes/100 WBC (Bld) 8.3 % Normal 0.0-10.0 [facility] Comment on above: Performed By: #### B MPF ####[place] [address]#### ACBC ####Testing performed at [address] [address] Neutrophils/100 WBC (Bld) 85.0 % High 37.0-75.0 [facility] Comment on above: Performed By: #### B MPF ####[place] [address]#### ACBC ####Testing performed at [address] [address] Erythrocyte distribution width (RBC) [Ratio] 13.8 % Normal 11.5-14.5 [facility] Comment on above: Performed By: #### B MPF ####Testing performed at [address] [address]#### ACBC ####Testing performed at [address] [address] Hematocrit (Bld) [Volume fraction] 25.8 % Low 42.0-52.0 [facility] Comment on above: Performed By: #### B MPF ####Testing performed at [place] [id number]#### ACBC ####Testing performed at [address] [address] Hemoglobin (Bld) [Mass/Vol] 9.0 g/dL Low 14.0-18.0 [facility] Comment on above: Performed By: #### B MPF ####Testing performed at [place] [id number]#### ACBC ####Testing performed at [address] [address] MCH (RBC) [Entitic mass] 31.3 pg Normal 26.0-35.0 [facility] Comment on above: Performed By: #### B MPF ####Testing performed at [place] [id number]#### ACBC ####Testing performed at [address] [address] MCHC (RBC) [Mass/Vol] 34.8 g/dL Normal 27.0-37.0 [facility] Comment on above: Performed By: #### B MPF ####Testing performed at [address] [address]#### ACBC ####Testing performed at [address] [address] MCV (RBC) [Entitic vol] 90.0 fL Normal 80.0-100.0 [facility] Comment on above: Performed By: #### B MPF ####Testing performed at [place] [id number]#### ACBC ####Testing performed at [address] [address] Platelet mean volume (Bld) [Entitic vol] 9.1 fL Normal 7.4-11.0 [facility] Comment on above: Performed By: #### B MPF ####Testing performed at [place] [id number]#### ACBC ####Testing performed at [address] [address] Platelets (Bld) [#/Vol] 149 10*3/uL Normal 130-400 [facility] Comment on above: Performed By: #### B MPF ####Testing performed at [place] [id number]#### ACBC ####Testing performed at [place] [id number] RBC (Bld) [#/Vol] 2.87 10*6/uL Low 4.0-6.1 [facility] Comment on above: Performed By: #### B MPF ####[place] [address]#### ACBC ####Testing performed at [address] [address] WBC (Bld) [#/Vol] 11.9 10*3/uL High 3.6-11.0 [facility] Comment on above: Performed By: #### B MPF ####Testing performed at [place] [id number]#### ACBC ####Testing performed at [address] [address] CBC, EDIF, PLATELETon 2022 ABSOLUTE BASOPHIL COUNT 0.0 10*3/uL 0.0 - 0.2 10*3/uL [facility] Basophils/100 WBC (Bld) 0.0 % 0.0 - 2.0 % [facility] Differential cell count method Nom (Bld) AUTO DIFF % [facility] Eosinophils (Bld) [#/Vol] 0.0 10*3/uL 0.0 - 0.7 10*3/uL [facility] Eosinophils/100 WBC (Bld) 0.0 % 0.0 - 11.0 % [facility] Erythrocyte distribution width (RBC) [Ratio] 13.8 % 11.5 - 14.5 % [facility] Hematocrit (Bld) [Volume fraction] 25.8 % Low 42.0 - 52.0 % [facility] Hemoglobin (Bld) [Mass/Vol] 9.0 g/dL Low [facility] Interpretation and review of laboratory results Abnormal [facility] Lymphocytes (Bld) [#/Vol] 0.8 10*3/uL Low 1.2 - 3.4 10*3/uL [facility] Lymphocytes/100 WBC (Bld) 6.7 % Low 20.0 - 55.0 % [facility] MCH (RBC) [Entitic mass] 31.3 pg 26.0 - 35.0 PG [facility] MCHC (RBC) [Mass/Vol] 34.8 g/dL [facility] MCV (RBC) [Entitic vol] 90.0 fL [facility] Monocytes (Bld) [#/Vol] 1.0 10*3/uL High 0.0 - 0.7 10*3/uL [facility] Monocytes/100 WBC (Bld) 8.3 % 0.0 - 10.0 % [facility] Neutrophils (Bld) [#/Vol] 10.1 10*3/uL High 1.4 - 6.5 10*3/uL [facility] Neutrophils/100 WBC (Bld) 85.0 % High 37.0 - 75.0 % [facility] Platelet mean volume (Bld) [Entitic vol] 9.1 fL [facility] Platelets (Bld) [#/Vol] 149 10*3/uL 130 - 400 10*3/uL [facility] RBC (Bld) [#/Vol] 2.87 10*6/uL Low 4.0 - 6.1 10*6/uL [facility] WBC (Bld) [#/Vol] 11.9 10*3/uL High 3.6 - 11.0 10*3/uL [facility] MRSA SCREENon 05-08-2023 MRSA DNA DALIA+probe Ql (Unsp spec) Negative Normal NEGATIVE [facility] Comment on above: Performed By: #### M RSAST ####[place] [address] STAPH AUREUS SCREEN Negative Normal NEGATIVE [facility] Comment on above: Result Comment: TEST ING PERFORMED BY PCR Performed By: #### M RSAST ####Testing performed at [place] [id number] SCREEN: MRSA ONLY, NARES (IS OLATION SCREEN)on 05-08-2023 MRSA isol Org specific cx Ql (Nose) Negative NEGATIVE [facility] STAPHYOCOCCUS AUREUS BY PCR Negative NEGATIVE [facility] Comment on above: TESTING PERFORMED BY PCR [facility] XR KNEE LEFT 2 VIEWSon 05-08 XR KNEE LEFT 2 VIEWS EXAM: XR KNEE LEFT 2 VIEWS INDICATION: tka COMPARISON: None. TECHNIQUE: Radiographs as described above FINDINGS/IMPRESSION: Status post total knee arthroplasty without evidence of complication. Expected perioperative soft tissue changes. Normal [facility] XR Knee - left 2 Viewson [...] of complication. Expected perioperative soft tissue changes. [facility] Radiology Study observation (narrative) [facility] XR Knee - left 2 ViewsOrderalex d By: Clinton Dickens on 05-08-2023 [facility] Work Phone: CBCon 04-13-2023 ABSOLUTE BAS 0.0 10*3/uL Normal 0.0-0.2 [facility] Comment on above: Performed By: #### U MAC #### Testing performed at [address] [address] ABSOLUTE EOS 0.2 10*3/uL Normal 0.0-0.7 [facility] Comment on above: Performed By: #### U MAC #### Testing performed at [address] [address] ABSOLUTE NEUTROPHIL COUNT 3.8 10*3/uL Normal 1.4-6.5 [facility] Comment on above: Performed By: #### U MAC #### Testing performed at [address] [address] Basophils/100 WBC (Bld) 0.5 % Normal 0.0-2.0 [facility] Comment on above: Performed By: #### U MAC #### Testing performed at [address] [address] DTYPE AUTO DIFF Normal [facility] Comment on above: Performed By: #### U MAC #### Testing performed at [address] [address] Eosinophils/100 WBC (Bld) 2.6 % Normal 0.0-11.0 [facility] Comment on above: Performed By: #### U MAC #### Testing performed at [address] [address] Lymphocytes (Bld) [#/Vol] 1.3 10*3/uL Normal 1.2-3.4 [facility] Comment on above: Performed By: #### U MAC #### Testing performed at [address] [address] Lymphocytes/100 WBC (Bld) 22.9 % Normal 20.0-55.0 [facility] Comment on above: Performed By: #### U MAC #### Testing performed at [address] [address] Monocytes (Bld) [#/Vol] 0.5 10*3/uL Normal 0.0-0.7 [facility] Comment on above: Performed By: #### U MAC #### Testing performed at [address] [address] Monocytes/100 WBC (Bld) 8.9 % Normal 0.0-10.0 [facility] Comment on above: Performed By: #### U MAC #### Testing performed at [address] [address] Neutrophils/100 WBC (Bld) 65.1 % Normal 37.0-75.0 [facility] Comment on above: Performed By: #### U MAC #### Testing performed at [address] [address] Erythrocyte distribution width (RBC) [Ratio] 14.6 % High 11.5-14.5 [facility] Comment on above: Performed By: #### U MAC #### Testing performed at [address] [address] Hematocrit (Bld) [Volume fraction] 40.8 % Low 42.0-52.0 [facility] Comment on above: Performed By: #### U MAC #### Testing performed at [address] [address] Hemoglobin (Bld) [Mass/Vol] 13.5 g/dL Low 14.0-18.0 [facility] Comment on above: Performed By: #### U MAC #### Testing performed at [address] [address] MCH (RBC) [Entitic mass] 29.9 pg Normal 26.0-35.0 [facility] Comment on above: Performed By: #### U MAC #### Testing performed at [address] [address] MCHC (RBC) [Mass/Vol] 33.0 g/dL Normal 27.0-37.0 [facility] Comment on above: Performed By: #### U MAC #### Testing performed at [address] [address] MCV (RBC) [Entitic vol] 90.7 fL Normal 80.0-100.0 [facility] Comment on above: Performed By: #### U MAC #### Testing performed at [address] [address] Platelet mean volume (Bld) [Entitic vol] 8.9 fL Normal 7.4-11.0 [facility] Comment on above: Performed By: #### U MAC #### Testing performed at [address] [place] [address] Platelets (Bld) [#/Vol] 157 10*3/uL Normal 130-400 [facility] Comment on above: Performed By: #### U MAC #### Testing performed at [address] [place] [address] RBC (Bld) [#/Vol] 4.50 10*6/uL Normal 4.0-6.1 [facility] Comment on above: Performed By: #### U MAC #### Testing performed at [address] [place] [address] WBC (Bld) [#/Vol] 5.9 10*3/uL Normal 3.6-11.0 [facility] Comment on above: Performed By: #### U MAC #### Testing performed at [address] [place] [address] CMP FASTINGon 04-13-2023 A:G RATIO 1.6 RATIO Normal 1.3-2.2 [facility] Comment on above: Performed By: #### U MAC #### Testing performed at [address] [place] [address] ALBUMIN 4.4 G/dl Normal 3.5-5.0 [facility] Comment on above: Performed By: #### U MAC #### Testing performed at [address] [place] [address] ALP [Catalytic activity/Vol] 52 U/L Normal 38-126 [facility] Comment on above: Performed By: #### U MAC #### Testing performed at [address] [place] [address] ALT [Catalytic activity/Vol] 41 U/L Normal 17-63 [facility] Comment on above: Performed By: #### U MAC #### Testing performed at [address] [place] [address] AST [Catalytic activity/Vol] 29 U/L Normal 15-41 [facility] Comment on above: Performed By: #### U MAC #### Testing performed at [address] [place] [address] Bilirubin [Mass/Vol] 1.6 mg/dL High 0.2-1.[address] [facility] Comment on above: Performed By: #### U MAC #### Testing performed at [address] [address] Calcium [Mass/Vol] 9.8 mg/dL Normal 8.4-10.2 [facility] Comment on above: Performed By: #### U MAC #### Testing performed at [address] [address] Chloride [Moles/Vol] 105 mmol/L Normal 98-[address] [facility] Comment on above: Performed By: #### U MAC #### Testing performed at [address] [address] CO2 [Moles/Vol] 24 mmol/L Normal 22-30 [facility] Comment on above: Performed By: #### U MAC #### Testing performed at [address] [address] Creatinine [Mass/Vol] 0.67 mg/dL Normal 0.66-1.25 [facility] Comment on above: Performed By: #### U MAC #### Testing performed at [address] [address] EST. GFR, 151 ml/min/1.73sq.m [facility] Comment on above: Performed By: #### U MAC #### Testing performed at [address] [address] EST. GFR,Non 125 ml/min/1.73sq.m [facility] Comment on above: Performed By: #### U MAC #### Testing performed at [address] [address] GFR Information Average GFR for 60-6 9 years old = 85. Normal [facility] Comment on above: Result Comment: Swimming Pool Serviceperson katarzyna Kidney disease, GFR = <60. Kidney failure, GFR = <15. The GFR estimate is not adjusted for extreme body surface area or acute process, nor has it been validated for women or ethnic groups other than and . Performed By: #### U MAC #### Testing performed at [address] [address] Glucose [Mass/Vol] 106 mg/dL High 70-100 [facility] Comment on above: Result Comment: NORMAL <100 mg/dL PREDIABETES 101-126 mg/dL DIABETES 126 mg/dL or higher Performed By: #### U MAC #### Testing performed at [address] [address] Potassium [Moles/Vol] 4.2 mmol/L Normal 3.5-5.1 [facility] Comment on above: Performed By: #### U MAC #### Testing performed at [address] [address] Protein [Mass/Vol] 7.2 g/dL Normal 6.3-8.2 [facility] Comment on above: Performed By: #### U MAC #### Testing performed at [address] [address] Sodium [Moles/Vol] 137 mmol/L Normal 136-145 [facility] Comment on above: Performed By: #### U MAC #### Testing performed at [address] [address] Urea nitrogen [Mass/Vol] 17 mg/dL Normal 7-20 [facility] Comment on above: Performed By: #### U MAC #### Testing performed at [address] [address] HEMOGLOBIN A1Con 04-13-2023 Glucose [Mass/Vol] 105 mg/dL Normal [facility] Comment on above: Performed By: #### U MAC #### Testing performed at [address] [address] HbA1c (Bld) [Mass fraction] 5.3 % Normal <6 [facility] Comment on above: Result Comment: NORMAL <5.7% PREDIABETES 5.7-6.4% DIABETES 6.5% OR HIGHER Performed By: #### U MAC #### Testing performed at [address] [address] MRSA SCREENon 04-13-2023 MRSA DNA DALIA+probe Ql (Unsp spec) Negative Normal NEGATIVE [facility] Comment on above: Performed By: #### M RSAST ####Testing performed at [address] [address] STAPH AUREUS SCREEN Positive Abnormal NEGATIVE [facility] Comment on above: Result Comment: TEST ING PERFORMED BY PCR Performed By: #### M RSAST ####Testing performed at [address] [place] [address] PROTIMEon 04-13-2023 INR Coag (PPP) [Relative time] 1.02 {INR} Normal 0.85-1.10 [facility] Comment on above: Result Comment: 2.0-3.0 THERAPEUTIC RANGE 2.5-3.5 MECHANICAL VALVE RANGE Performed By: #### U MAC #### Testing performed at [address] [address] PT Coag (PPP) [Time] 13.5 s Normal 11.8-14.[address] [facility] Comment on above: Performed By: #### U MAC #### Testing performed at [address] [address] TYPE AND SCREEN CROSSMATCH C ONVERTIBLEon 04-13-2023 TYPE AND SCREEN CROSSMATCH CONVERTIBLE WORKUP EXPIRES 05/11/2023,2359 ABO/RH(D) O POSITIVE ANTIBODY SCREEN NEGATIVE ARM BAND NUMBER [id number] Normal [facility] Comment on above: Performed By: #### U MAC #### Testing performed at [address] [address] URINE MACROSCOPICon 04-13-20 23 Bilirubin Ql (U) Negative Normal NEGATIVE [facility] Comment on above: Performed By: #### U MAC #### Testing performed at [address] [address] Clarity (U) CLEAR Normal CLEAR [facility] Comment on above: Performed By: #### U MAC #### Testing performed at [address] [place] [address] Color (U) YELLOW Normal YELLOW [facility] Comment on above: Performed By: #### U MAC #### Testing performed at [address] [address] Glucose Ql (U) Negative Normal NEGATIVE [facility] Comment on above: Performed By: #### U MAC #### Testing performed at [address] [address] pH (U) 6.0 [pH] Normal 5.0-7.0 [facility] Comment on above: Performed By: #### U MAC #### Testing performed at [address] [address] URINE HEMOGLOBIN Negative Normal NEGATIVE [facility] Comment on above: Performed By: #### U MAC #### Testing performed at [address] [address] URINE KETONE Negative Normal NEGATIVE [facility] Comment on above: Performed By: #### U MAC #### Testing performed at [address] [place] [address] URINE LEUKOTEST Negative Normal NEGATIVE [facility] Comment on above: Performed By: #### U MAC #### Testing performed at [address] [address] URINE NITRATES Negative Normal NEGATIVE [facility] Comment on above: Performed By: #### U MAC #### Testing performed at [address] [address] URINE SPEC GRAVITY 1.025 Normal 1.010-1.025 [facility] Comment on above: Performed By: #### U MAC #### Testing performed at [address] [address] URINE TOTAL PROTEIN Negative Normal NEGATIVE [facility] Comment on above: Performed By: #### U MAC #### Testing performed at [address] [address] Urobilinogen Qn (U) 1.0 {Tee'U}/dL Normal 0.2-1.0 [facility] Comment on above: Performed By: #### U MAC #### Testing performed at [address] [place] [address] BASIC METABOLIC PANELon 11- Anion gap [Moles/Vol] 9 mmol/L [facility] Calcium [Mass/Vol] 8.4 mg/dL [facility] Chloride [Moles/Vol] 105 mmol/L [facility] CO2 [Moles/Vol] 22 mmol/L [facility] Creatinine [Mass/Vol] 0.68 mg/dL [facility] GFR COMMENT Average GFR for 60-6 9 years old = 85. [facility] Comment on above: Chronic Kidney disea se, GFR = <60. Kidney failure, GFR = <15. The GFR estimate is not adjusted for extreme body surface area or acute process, nor has it been validated for women or ethnic groups other than and . GFR/1.73 sq M.predicted among blacks MDRD (S/P/Bld) [Vol rate/Area] 149 mL/min/{1.73_m2} ml/min/1.73s q.m [facility] GFR/1.73 sq M.predicted among non-blacks MDRD (S/P/Bld) [Vol rate/Area] 123 mL/min/{1.73_m2} ml/min/1.73s q.m [facility] Glucose post fast [Mass/Vol] 153 mg/dL [facility] Comment on above: NORMAL <100 mg/dL PREDIABETES 101-126 mg/dL DIABETES 126 mg/dL or higher Interpretation and review of laboratory results Abnormal [facility] Potassium [Moles/Vol] 3.7 mmol/L [facility] Sodium [Moles/Vol] 136 mmol/L [facility] Urea nitrogen [Mass/Vol] 16 mg/dL [facility] BMP FASTINGon 10-11-2022 Anion gap [Moles/Vol] 9 mmol/L Normal 8-16 [facility] Comment on above: Performed By: #### A CBC, BMPF #### Testing performed at [address] [address] Calcium [Mass/Vol] 8.4 mg/dL Normal 8.4-10.2 [facility] Comment on above: Performed By: #### A CBC, BMPF #### Testing performed at [address] [address] Chloride [Moles/Vol] 105 mmol/L Normal 98-[address] [facility] Comment on above: Performed By: #### A CBC, BMPF #### Testing performed at [address] [address] CO2 [Moles/Vol] 22 mmol/L Normal 22-30 [facility] Comment on above: Performed By: #### A CBC, BMPF #### Testing performed at [address] [address] Creatinine [Mass/Vol] 0.68 mg/dL Normal 0.66-1.25 [facility] Comment on above: Performed By: #### A CBC BMPF #### Testing performed at [address] [address] EST. GFR, 149 ml/min/1.73sq.m [facility] Comment on above: Performed By: #### A CBC BMPF #### Testing performed at [address] [address] EST. GFR,Non 123 ml/min/1.73sq.m [facility] Comment on above: Performed By: #### A CBC BMPF #### Testing performed at [address] [address] GFR Information Average GFR for 60-6 9 years old = 85. Normal [facility] Comment on above: Result Comment: Swimming Pool Serviceperson katarzyna Kidney disease, GFR = <60. Kidney failure, GFR = <15. The GFR estimate is not adjusted for extreme body surface area or acute process, nor has it been validated for women or ethnic groups other than and . Performed By: #### A CBC BMPF #### Testing performed at [address] [address] Glucose [Mass/Vol] 153 mg/dL High 70-100 [facility] Comment on above: Result Comment: NORMAL <100 mg/dL PREDIABETES 101-126 mg/dL DIABETES 126 mg/dL or higher Performed By: #### A CBC, BMPF #### Testing performed at [address] [address] Potassium [Moles/Vol] 3.7 mmol/L Normal 3.5-5.1 [facility] Comment on above: Performed By: #### A CBC BMPF #### Testing performed at [address] [address] Sodium [Moles/Vol] 136 mmol/L Normal 136-145 [facility] Comment on above: Performed By: #### A CBC BMPF #### Testing performed at [address] [address] Urea nitrogen [Mass/Vol] 16 mg/dL Normal 7-20 [facility] Comment on above: Performed By: #### A CBC, BMPF #### Testing performed at [address] [address] CBCon 10-11-2022 ABSOLUTE BAS 0.0 10*3/uL Normal 0.0-0.2 [facility] Comment on above: Performed By: #### A CBC, BMPF #### Testing performed at [address] [address] ABSOLUTE EOS 0.0 10*3/uL Normal 0.0-0.7 [facility] Comment on above: Performed By: #### A CBC, BMPF #### Testing performed at [address] [address] ABSOLUTE NEUTROPHIL COUNT 7.8 10*3/uL High 1.4-6.5 [facility] Comment on above: Performed By: #### A CBC, BMPF #### Testing performed at [address] [address] Basophils/100 WBC (Bld) 0.1 % Normal 0.0-2.0 [facility] Comment on above: Performed By: #### A CBC, BMPF #### Testing performed at [address] [address] DTYPE AUTO DIFF Normal [facility] Comment on above: Performed By: #### A CBC, BMPF #### Testing performed at [address] [address] Eosinophils/100 WBC (Bld) 0.1 % Normal 0.0-11.0 [facility] Comment on above: Performed By: #### A CBC, BMPF #### Testing performed at [address] [address] Erythrocyte distribution width (RBC) [Ratio] 12.8 % Normal 11.5-14.5 [facility] Comment on above: Performed By: #### A CBC, BMPF #### Testing performed at [address] [address] Hematocrit (Bld) [Volume fraction] 29.8 % Low 42.0-52.0 [facility] Comment on above: Performed By: #### A CBC, BMPF #### Testing performed at [address] [address] Hemoglobin (Bld) [Mass/Vol] 10.1 g/dL Low 14.0-18.0 [facility] Comment on above: Performed By: #### A CBC, BMPF #### Testing performed at [address] [address] Lymphocytes (Bld) [#/Vol] 0.8 10*3/uL Low 1.2-3.4 [facility] Comment on above: Performed By: #### A CBC, BMPF #### Testing performed at [address] [address] Lymphocytes/100 WBC (Bld) 8.4 % Low 20.0-55.0 [facility] Comment on above: Performed By: #### A CBC, BMPF #### Testing performed at [address] [address] MCH (RBC) [Entitic mass] 30.2 pg Normal 26.0-35.0 [facility] Comment on above: Performed By: #### A CBC, BMPF #### Testing performed at [address] [address] MCHC (RBC) [Mass/Vol] 33.8 g/dL Normal 27.0-37.0 [facility] Comment on above: Performed By: #### A CBC, BMPF #### Testing performed at [address] [address] MCV (RBC) [Entitic vol] 89.3 fL Normal 80.0-100.0 [facility] Comment on above: Performed By: #### A CBC, BMPF #### Testing performed at [address] [address] Monocytes (Bld) [#/Vol] 1.1 10*3/uL High 0.0-0.7 [facility] Comment on above: Performed By: #### A CBC, BMPF #### Testing performed at [address] [address] Monocytes/100 WBC (Bld) 10.8 % High 0.0-10.0 [facility] Comment on above: Performed By: #### A CBC BMPF #### Testing performed at [address] [address] Neutrophils/100 WBC (Bld) 80.6 % High 37.0-75.0 [facility] Comment on above: Performed By: #### A CBC, BMPF #### Testing performed at [address] [address] Platelet mean volume (Bld) [Entitic vol] 9.3 fL Normal 7.4-11.0 [facility] Comment on above: Performed By: #### A CBC BMPF #### Testing performed at [address] [address] Platelets (Bld) [#/Vol] 146 10*3/uL Normal 130.0-400.0 [facility] Comment on above: Performed By: #### A CBC, BMPF #### Testing performed at [address] [address] RBC (Bld) [#/Vol] 3.33 10*6/uL Low 4.0-6.1 [facility] Comment on above: Performed By: #### A CBC BMPF #### Testing performed at [address] [address] WBC (Bld) [#/Vol] 9.7 10*3/uL Normal 3.6-11.0 [facility] Comment on above: Performed By: #### A CBC, BMPF #### Testing performed at [address] [address] CBC, EDIF, PLATELETon 2021 ABSOLUTE BASOPHIL COUNT 0.0 10*3/uL 0.0 - 0.2 10*3/uL [facility] Basophils/100 WBC (Bld) 0.1 % 0.0 - 2.0 % [facility] Differential cell count method Nom (Bld) AUTO DIFF % [facility] Eosinophils (Bld) [#/Vol] 0.0 10*3/uL 0.0 - 0.7 10*3/uL [facility] Eosinophils/100 WBC (Bld) 0.1 % 0.0 - 11.0 % [facility] Erythrocyte distribution width (RBC) [Ratio] 12.8 % 11.5 - 14.5 % [facility] Hematocrit (Bld) [Volume fraction] 29.8 % Low 42.0 - 52.0 % [facility] Hemoglobin (Bld) [Mass/Vol] 10.1 g/dL Low [facility] Interpretation and review of laboratory results Abnormal [facility] Lymphocytes (Bld) [#/Vol] 0.8 10*3/uL Low 1.2 - 3.4 10*3/uL [facility] Lymphocytes/100 WBC (Bld) 8.4 % Low 20.0 - 55.0 % [facility] MCH (RBC) [Entitic mass] 30.2 pg 26.0 - 35.0 PG [facility] MCHC (RBC) [Mass/Vol] 33.8 g/dL [facility] MCV (RBC) [Entitic vol] 89.3 fL [facility] Monocytes (Bld) [#/Vol] 1.1 10*3/uL High 0.0 - 0.7 10*3/uL [facility] Monocytes/100 WBC (Bld) 10.8 % High 0.0 - 10.0 % [facility] Neutrophils (Bld) [#/Vol] 7.8 10*3/uL High 1.4 - 6.5 10*3/uL [facility] Neutrophils/100 WBC (Bld) 80.6 % High 37.0 - 75.0 % [facility] Platelet mean volume (Bld) [Entitic vol] 9.3 fL [facility] Platelets (Bld) [#/Vol] 146 10*3/uL 130.0 - 400.0 10*3/uL [facility] RBC (Bld) [#/Vol] 3.33 10*6/uL Low 4.0 - 6.1 10*6/uL [facility] WBC (Bld) [#/Vol] 9.7 10*3/uL 3.6 - 11.0 10*3/uL [facility] NOVEL CORONAVIRUSon 10-10-20 22 NARRATIVE This test was perfor med using isothermal DALIA and has been approved as Emergency Use Authorization (EUA) for the qualitative detection [id number] nucleic acid. Normal [facility] Comment on above: Performed By: #### C OVID #### Testing performed at [address] [address] SARS-CoV-2 (COVID-19) RNA DALIA+probe Ql (Unsp spec) Not detected Normal NOT DETECTED [facility] Comment on above: Result Comment: Nega [...] #### C OVID #### Testing performed at [address] [address] NOVEL CORONAVIRUS LAB 1 - NA SOPHARYNGEALon 10-10-2022 NARRATIVE -1 This test was perfor med using isothermal DALIA and has been approved as Emergency Use Authorization (EUA) for the qualitative detection [id number] nucleic acid. [facility] SARS-CoV-2 (COVID-19) RNA DALIA+probe Ql (Unsp spec) Not detected NOT DETECTED [facility] Comment on above: Negative results do [...] patient is critically ill or clinically deteriorating. [facility] RAPID TOX SCREEN,URINEon AMPHETAMINE Negative Normal NEGATIVE [facility] Comment on above: Result Comment: <500 ng/ml CUTOFF Performed By: #### R TOX #### Testing performed at [address] [place] [address] BARBITURATES Negative Normal NEGATIVE [facility] Comment on above: Result Comment: <200 ng/ml CUTOFF Performed By: #### R TOX #### Testing performed at [address] [place] [address] BENZODIAZEPINES Negative Normal NEGATIVE [facility] Comment on above: Result Comment: <150 ng/ml CUTOFF Performed By: #### R TOX #### Testing performed at [address] [place] [address] BUPRENORPHINE Negative Normal NEGATIVE [facility] Comment on above: Result Comment: <10 ng/ml CUTOFF Performed By: #### R TOX #### Testing performed at [address] [place] [address] CANNABINOIDS Positive Abnormal NEGATIVE [facility] Comment on above: Result Comment: <50 ng/ml CUTOFF *Unconfirmed Screening Result* Unconfirmed screening results are to be used only for medical treatment purposes. Performed By: #### R TOX #### Testing performed at [address] [place] [address] COCAINE Negative Normal NEGATIVE [facility] Comment on above: Result Comment: <150 ng/ml CUTOFF Performed By: #### R TOX #### Testing performed at [address] [place] [address] METHADONE Negative Normal NEGATIVE [facility] Comment on above: Result Comment: <200 ng/ml CUTOFF Performed By: #### R TOX #### Testing performed at [address] [place] [address] METHAMPHETAMINE Negative Normal NEGATIVE [facility] Comment on above: Result Comment: <500 ng/ml CUTOFF Performed By: #### R TOX #### Testing performed at [address] [place] [address] OPIATES Negative Normal NEGATIVE [facility] Comment on above: Result Comment: <100 ng/ml CUTOFF Performed By: #### R TOX #### Testing performed at [address] [place] [address] OXYCODONE Positive Abnormal NEGATIVE [facility] Comment on above: Result Comment: <100 ng/ml CUTOFF *Unconfirmed Screening Result* Unconfirmed screening results are to be used only for medical treatment purposes. Performed By: #### R TOX #### Testing performed at [address] [address] PHENCYCLIDINE Negative Normal NEGATIVE [facility] Comment on above: Result Comment: <25 ng/ml CUTOFF Performed By: #### R TOX #### Testing performed at [address] [address] PROPOXYPHENE Negative Normal NEGATIVE [facility] Comment on above: Result Comment: <300 ng/ml CUTOFF Performed By: #### R TOX #### Testing performed at [address] [address] TRICYCLIC ANTIDEPRESSANTS Positive Abnormal NEGATIVE [facility] Comment on above: Result Comment: <300 ng/ml CUTOFF *Unconfirmed Screening Result* Unconfirmed screening results are to be used only for medical treatment purposes. Performed By: #### R TOX #### Testing performed at [address] [address] REPEAT ABO/RHon 10-10-2022 REPEAT ABO/RH Positive Normal [facility] Comment on above: Performed By: #### R ABRH #### Testing performed at [address] [address] REPEAT ABO/RH (D) TYPINGon 1 12-10-2021 ABO and Rh group Nom (Bld ) Positive [facility] TOXIC[facility] DRUG SCREEN, URIN Alexander 10-10-2022 Amphetamine (U) [Mass/Vol] Negative NEGATIVE NG/ML [facility] Comment on above: <500 ng/ml CUTOFF Barbiturates Screen Ql (U) Negative NEGATIVE NG/ML [facility] Comment on above: <200 ng/ml CUTOFF Benzodiazepines Ql (U) Negative NEGATIVE NG/ML [facility] Comment on above: <150 ng/ml CUTOFF Benzoylecgonine Ql (U) Negative NEGATIVE NG/ML [facility] Comment on above: <150 ng/ml CUTOFF Buprenorphine Ql (U) Negative NEGATIV E NG/ML [facility] Comment on above: <10 ng/ml CUTOFF Cannabinoids Screen Ql (U) Positive Abnormal NEGATIVE NG/ML [facility] Comment on above: <50 ng/ml CUTOFF *Unconfirmed Screening Result* Unconfirmed screening results are to be used only for medical treatment purposes. Interpretation and review of laboratory results Abnormal [facility] Methadone Screen Ql (U) Negative NEGATIVE NG/ML [facility] Comment on above: <200 ng/ml CUTOFF Methamphetamine (U) [Mass/Vol] Negative NEGATIVE NG/ML [facility] Comment on above: <500 ng/ml CUTOFF Opiates Screen Ql (U) Negative NEGATIVE NG/ML [facility] Comment on above: <100 ng/ml CUTOFF oxyCODONE Ql (U) Positive Abnormal NEGATIVE NG/ML [facility] Comment on above: <100 ng/ml CUTOFF *Unconfirmed Screening Result* Unconfirmed screening results are to be used only for medical treatment purposes. Phencyclidine Screen method >25 ng/mL Ql (U) Negative NEGATIVE NG/ML [facility] Comment on above: <25 ng/ml CUTOFF Propoxyphene+Norprop oxyphene Screen Ql (U) Negative NEGATIVE NG/ML [facility] Comment on above: <300 ng/ml CUTOFF Tricyclic antidepressants Screen Ql (U) Positive Abnormal NEGATIVE NG/ML [facility] Comment on above: <300 ng/ml CUTOFF *Unconfirmed Screening Result* Unconfirmed screening results are to be used only for medical treatment purposes. [facility] XR PELVIS AP ONLYon 10-10-20 XR [...] no periprosthetic fracture or dislocation identified. Normal [facility] XR Pelvis APon 10-10-2022 IMPRESSION: Left [...] arthroplasty, no periprosthetic fracture or dislocation identified. [facility] Radiology Study observation (narrative) [facility] XR Pelvis APOrdered By: Hayden Reno on 10-10-2022 [facility] Work Phone: CBCon 09-15-2022 ABSOLUTE BAS 0.0 10*3/uL Normal 0.0-0.2 [facility] Comment on above: Performed By: #### C MPF, ACBC, PT ####Testing performed at [address] [address] ABSOLUTE EOS 0.1 10*3/uL Normal 0.0-0.7 [facility] Comment on above: Performed By: #### C MPF, ACBC, PT ####Testing performed at [address] [address] ABSOLUTE NEUTROPHIL COUNT 4.3 10*3/uL Normal 1.4-6.5 [facility] Comment on above: Performed By: #### C MPF, ACBC, PT ####Testing performed at [address] [address] Basophils/100 WBC (Bld) 0.6 % Normal 0.0-2.0 [facility] Comment on above: Performed By: #### C MPF, ACBC, PT ####Testing performed at [address] [address] DTYPE AUTO DIFF Normal [facility] Comment on above: Performed By: #### C MPF, ACBC, PT ####Testing performed at [address] [address] Eosinophils/100 WBC (Bld) 2.0 % Normal 0.0-11.0 [facility] Comment on above: Performed By: #### C MPF, ACBC, PT ####Testing performed at [address] [address] Lymphocytes (Bld) [#/Vol] 1.2 10*3/uL Normal 1.2-3.4 [facility] Comment on above: Performed By: #### C MPF, ACBC, PT ####Testing performed at [address] [address] Lymphocytes/100 WBC (Bld) 19.4 % Low 20.0-55.0 [facility] Comment on above: Performed By: #### C MPF, ACBC, PT ####Testing performed at [address] [address] Monocytes (Bld) [#/Vol] 0.5 10*3/uL Normal 0.0-0.7 [facility] Comment on above: Performed By: #### C MPF, ACBC, PT ####Testing performed at [address] [address] Monocytes/100 WBC (Bld) 8.8 % Normal 0.0-10.0 [facility] Comment on above: Performed By: #### C MPF, ACBC, PT ####Testing performed at [address] [address] Neutrophils/100 WBC (Bld) 69.2 % Normal 37.0-75.0 [facility] Comment on above: Performed By: #### C MPF, ACBC, PT ####Testing performed at [address] [address] Erythrocyte distribution width (RBC) [Ratio] 12.3 % Normal 11.5-14.5 [facility] Comment on above: Performed By: #### C MPF, ACBC, PT ####Testing performed at [address] [address] Hematocrit (Bld) [Volume fraction] 40.9 % Low 42.0-52.0 [facility] Comment on above: Performed By: #### C MPF, ACBC, PT ####[place] [address] Hemoglobin (Bld) [Mass/Vol] 13.9 g/dL Low 14.0-18.0 [facility] Comment on above: Performed By: #### C MPF, ACBC, PT ####[place] [address] MCH (RBC) [Entitic mass] 30.6 pg Normal 26.0-35.0 [facility] Comment on above: Performed By: #### C MPF, ACBC, PT ####[place] [address] MCHC (RBC) [Mass/Vol] 34.0 g/dL Normal 27.0-37.0 [facility] Comment on above: Performed By: #### C MPF, ACBC, PT ####[place] [address] MCV (RBC) [Entitic vol] 89.9 fL Normal 80.0-100.0 [facility] Comment on above: Performed By: #### C MPF, ACBC, PT ####[place] [address] Platelet mean volume (Bld) [Entitic vol] 8.8 fL Normal 7.4-11.0 [facility] Comment on above: Performed By: #### C MPF, ACBC, PT ####Testing performed at [place] [id number] Platelets (Bld) [#/Vol] 200 10*3/uL Normal 130.0-400.0 [facility] Comment on above: Performed By: #### C MPF, ACBC, PT ####Testing performed at [place] [id number] RBC (Bld) [#/Vol] 4.55 10*6/uL Normal 4.0-6.1 [facility] Comment on above: Performed By: #### C MPF, ACBC, PT ####Testing performed at [address] [place] [address] WBC (Bld) [#/Vol] 6.2 10*3/uL Normal 3.6-11.0 [facility] Comment on above: Performed By: #### C MPF, ACBC, PT ####Testing performed at [address] [address] CMP FASTINGon 09-15-2022 A:G RATIO 1.8 RATIO Normal 1.3-2.2 [facility] Comment on above: Performed By: #### C MPF, ACBC, PT ####Testing performed at [address] [address] ALBUMIN 4.6 G/dl Normal 3.5-5.0 [facility] Comment on above: Performed By: #### C MPF, ACBC, PT ####Testing performed at [address] [address] ALP [Catalytic activity/Vol] 76 U/L Normal 38-126 [facility] Comment on above: Performed By: #### C MPF, ACBC, PT ####Testing performed at [address] [address] ALT [Catalytic activity/Vol] 31 U/L Normal 17-63 [facility] Comment on above: Performed By: #### C MPF, ACBC, PT ####Testing performed at [address] [address] AST [Catalytic activity/Vol] 22 U/L Normal 15-41 [facility] Comment on above: Performed By: #### C MPF, ACBC, PT ####Testing performed at [address] [address] Bilirubin [Mass/Vol] 1.3 mg/dL High 0.2-1.[address] [facility] Comment on above: Performed By: #### C MPF, ACBC, PT ####Testing performed at [address] [address] Calcium [Mass/Vol] 9.9 mg/dL Normal 8.4-10.2 [facility] Comment on above: Performed By: #### C MPF, ACBC, PT ####Testing performed at [address] [address] Chloride [Moles/Vol] 100 mmol/L Normal 98-[address] [facility] Comment on above: Performed By: #### C MPF ACBC, PT ####Testing performed at [address] [address] CO2 [Moles/Vol] 23 mmol/L Normal 22-30 [facility] Comment on above: Performed By: #### C MPF ACBC, PT ####Testing performed at [address] [address] Creatinine [Mass/Vol] 0.60 mg/dL Low 0.66-1.25 [facility] Comment on above: Performed By: #### C LICHAF ACBC, PT ####Testing performed at [address] [address] EST. GFR, 172 ml/min/1.73sq.m [facility] Comment on above: Performed By: #### C MPF ACBC, PT ####Testing performed at [address] [address] EST. GFR,Non 142 ml/min/1.73sq.m [facility] Comment on above: Performed By: #### C MPF ACBC, PT ####Testing performed at [address] [address] GFR Information Average GFR for 60-6 9 years old = 85. Normal [facility] Comment on above: Result Comment: Swimming Pool Serviceperson katarzyna Kidney disease, GFR = <60. Kidney failure, GFR = <15. The GFR estimate is not adjusted for extreme body surface area or acute process, nor has it been validated for women or ethnic groups other than and . Performed By: #### C MPF, ACBC, PT ####Testing performed at [address] [address] Glucose [Mass/Vol] 127 mg/dL High 70-100 [facility] Comment on above: Result Comment: NORMAL <100 mg/dL PREDIABETES 101-126 mg/dL DIABETES 126 mg/dL or higher Performed By: #### C MPF, ACBC, PT ####Testing performed at [address] [address] Potassium [Moles/Vol] 4.1 mmol/L Normal 3.5-5.1 [facility] Comment on above: Performed By: #### C MPF, ACBC, PT ####Testing performed at [address] [address] Protein [Mass/Vol] 7.1 g/dL Normal 6.3-8.2 [facility] Comment on above: Performed By: #### C MPF, ACBC, PT ####Testing performed at [address] [address] Sodium [Moles/Vol] 136 mmol/L Normal 136-145 [facility] Comment on above: Performed By: #### C MPF, ACBC, PT ####Testing performed at [address] [address] Urea nitrogen [Mass/Vol] 12 mg/dL Normal 7-20 [facility] Comment on above: Performed By: #### C MPF, ACBC, PT ####Testing performed at [address] [address] HEMOGLOBIN A1Con 09-15-2022 Glucose [Mass/Vol] 105 mg/dL Normal [facility] Comment on above: Performed By: #### H A1CT #### Testing performed at [address] [address] HbA1c (Bld) [Mass fraction] 5.3 % Normal <6 [facility] Comment on above: Result Comment: NORMAL <5.7% PREDIABETES 5.7-6.4% DIABETES 6.5% OR HIGHER Performed By: #### H A1CT #### Testing performed at [address] [address] MRSA SCREENon 09-15-2022 MRSA DNA DALIA+probe Ql (Unsp spec) Not detected Normal NOT DETECTED [facility] Comment on above: Performed By: #### M RSAST #### Testing performed at [address] [address] STAPH AUREUS SCREEN Detected Abnormal NOT DETECTED [facility] Comment on above: Performed By: #### M RSAST #### Testing performed at [address] [address] PROTIMEon 09-15-2022 INR Coag (PPP) [Relative time] 1.08 {INR} Normal 0.85-1.10 [facility] Comment on above: Result Comment: 2.0-3.0 THERAPEUTIC RANGE 2.5-3.5 MECHANICAL VALVE RANGE Performed By: #### C MPF, ACBC, PT ####Testing performed at [address] [address] PT Coag (PPP) [Time] 14.1 s Normal 11.8-14.[address] [facility] Comment on above: Performed By: #### C MPF, ACBC, PT ####Testing performed at [address] [address] RAPID TOX SCREEN,URINEon AMPHETAMINE Negative Normal NEGATIVE [facility] Comment on above: Result Comment: <500 ng/ml CUTOFF Performed By: #### R TOX, UMAC ####Testing performed at [address] [address] BARBITURATES Negative Normal NEGATIVE [facility] Comment on above: Result Comment: <200 ng/ml CUTOFF Performed By: #### R TOX, UMAC ####Testing performed at [address] [address] BENZODIAZEPINES Negative Normal NEGATIVE [facility] Comment on above: Result Comment: <150 ng/ml CUTOFF Performed By: #### R TOX, UMAC ####Testing performed at [address] [address] BUPRENORPHINE Negative Normal NEGATIVE [facility] Comment on above: Result Comment: <10 ng/ml CUTOFF Performed By: #### R TOX, UMAC ####Testing performed at [address] [address] CANNABINOIDS Positive Abnormal NEGATIVE [facility] Comment on above: Result Comment: <50 ng/ml CUTOFF *Unconfirmed Screening Result* Unconfirmed screening results are to be used only for medical treatment purposes. Performed By: #### R TOX, UMAC ####Testing performed at [address] [place] [address] COCAINE Negative Normal NEGATIVE [facility] Comment on above: Result Comment: <150 ng/ml CUTOFF Performed By: #### R TOX, UMAC ####Testing performed at [address] [place] [address] METHADONE Negative Normal NEGATIVE [facility] Comment on above: Result Comment: <200 ng/ml CUTOFF Performed By: #### R TOX, UMAC ####Testing performed at [address] [place] [address] METHAMPHETAMINE Negative Normal NEGATIVE [facility] Comment on above: Result Comment: <500 ng/ml CUTOFF Performed By: #### R TOX, UMAC ####Testing performed at [address] [place] [address] OPIATES Negative Normal NEGATIVE [facility] Comment on above: Result Comment: <100 ng/ml CUTOFF Performed By: #### R TOX, UMAC ####Testing performed at [address] [place] [address] OXYCODONE Positive Abnormal NEGATIVE [facility] Comment on above: Result Comment: <100 ng/ml CUTOFF *Unconfirmed Screening Result* Unconfirmed screening results are to be used only for medical treatment purposes. Performed By: #### R TOX, UMAC ####Testing performed at [address] [place] [address] PHENCYCLIDINE Negative Normal NEGATIVE [facility] Comment on above: Result Comment: <25 ng/ml CUTOFF Performed By: #### R TOX, UMAC ####Testing performed at [address] [place] [address] PROPOXYPHENE Negative Normal NEGATIVE [facility] Comment on above: Result Comment: <300 ng/ml CUTOFF Performed By: #### R TOX, UMAC ####Testing performed at [address] [place] [address] TRICYCLIC ANTIDEPRESSANTS Positive Abnormal NEGATIVE [facility] Comment on above: Result Comment: <300 ng/ml CUTOFF *Unconfirmed Screening Result* Unconfirmed screening results are to be used only for medical treatment purposes. Performed By: #### R TOX, UMAC ####Testing performed at [address] [place] [address] TYPE AND SCREEN CROSSMATCH C ONVERTIBLEon 09-15-2022 TYPE AND SCREEN CROSSMATCH CONVERTIBLE WORKUP EXPIRES 10/13/2022,2359 ABO/RH(D) O POSITIVE ANTIBODY SCREEN NEGATIVE ARM BAND NUMBER [id number] Normal [facility] Comment on above: Performed By: #### T SCC #### Testing performed at [address] [address] URINE MACROSCOPICon 09-15-20 22 Bilirubin Ql (U) Negative Normal NEGATIVE [facility] Comment on above: Performed By: #### R TOX, UMAC ####Testing performed at [address] [place] [address] Clarity (U) CLEAR Normal CLEAR [facility] Comment on above: Performed By: #### R TOX, UMAC ####Testing performed at [address] [place] [address] Color (U) YELLOW Normal YELLOW [facility] Comment on above: Performed By: #### R TOX, UMAC ####Testing performed at [address] [address] Glucose Ql (U) Negative Normal NEGATIVE [facility] Comment on above: Performed By: #### R TOX, UMAC ####Testing performed at [address] [place] [address] pH (U) 5.5 [pH] Normal 5.0-7.0 [facility] Comment on above: Performed By: #### R TOX, UMAC ####Testing performed at [address] [place] [address] URINE HEMOGLOBIN Negative Normal NEGATIVE [facility] Comment on above: Performed By: #### R TOX, UMAC ####Testing performed at [address] [place] [address] URINE KETONE Negative Normal NEGATIVE [facility] Comment on above: Performed By: #### R TOX, UMAC ####Testing performed at [address] [address] URINE LEUKOTEST Negative Normal NEGATIVE [facility] Comment on above: Performed By: #### R TOX, UMAC ####Testing performed at [address] [address] URINE NITRATES Negative Normal NEGATIVE [facility] Comment on above: Performed By: #### R TOX, UMAC ####Testing performed at [address] [address] URINE SPEC GRAVITY 1.015 Normal 1.010-1.025 [facility] Comment on above: Performed By: #### R TOX, UMAC ####Testing performed at [address] [address] URINE TOTAL PROTEIN Negative Normal NEGATIVE [facility] Comment on above: Performed By: #### R TOX, UMAC ####Testing performed at [address] [address] Urobilinogen Qn (U) 0.2 {Tee'U}/dL Normal 0.2-1.0 [facility] Comment on above: Performed By: #### R TOX, UMAC ####Testing performed at [address] [address] Office Visit (Audiology)on 07-15-2022 Follow-up visit Diagnoses/Problems [...] with medical management 3. Consider binaural amplification [id number] Adult Risk Screening There are no spiritual/cultural [...] seems to be unchanged. Patient's preferred language: Citizen [place] Preferred language of the parent, legal guardian or surrogate decision-maker of this minor or incapacitated patient: Not Applicable No overt signs of domestic violence/neglect/abuse. No referral made to History Card Clerk. Pain not interfering with optimal level of [...] understanding (100%) at 70 dB HL.. Speech bull riveter threshold (30 dB HL in the right and 30 dB HL in the left) in agreement with pure tone averages. Signatures Electronically signed by : Parag Carver,CCC-A; Jul 15 2022 1:41PM EST (Author) Normal [employer] XR HIP LT 2 3V W PELVISon [...] DAVIN LYNN Date: 2022-06-15 18:35 Normal [facility] Established Visit (Otolaryng ology)on 06-03-2022 Established [...] This note was created using speech recognition rotary derrick operator software/or [employer] rotary derrick operator services. Despite proofreading, several typographical errors might [...] DAILY AT BEDTIME Vitals Vital Signs Recorded: [id number] 10:48AM [id number] F Height5 ft 4.5 in Vlgutx510 lb 8 oz BMI Vkzveawkxh01.69 kg/m2 BSA Calculated1.91 Tobacco Useb) No Falls [...] Kevyn Epperson (Resident) done by Kevyn Epperson ( (Resident)) Discharge - Partial Reconciliation: 11-May-2022 12:26 [...] order ONLY (more content not included)... Normal [facility] CORONAVIRUS 2019, SCREEN ASY MPTOMATICon 05-10-2022 SARS-CoV-2 (COVID-19) RNA DALIA+probe Ql (Unsp spec) Not detected Normal Not Detected [facility] Comment on above: Result Comment: [...] patient management decisions. Fact sheet for providers: https://www.fda.gov/media/384229/download Fact sheet for patients: https://www.fda.gov/media/644619/download This test has received FDA Emergency Use Authorization (EUA) and has been verified by [facility] ([facility]). This test is only authorized for the duration of time that circumstances exist to justify the authorization of the emergency use of in vitro diagnostic tests for the detection of SARS-CoV-2 virus and/or diagnosis of COVID-19 infection under section 564(b)(1) of the Act, 21 U.S.C. 360bbb-3(b)(1), unless the authorization is terminated or revoked sooner. [facility] is certified under CLIA-88 as qualified to perform high complexity testing. Testing is performed in the [facility] laboratories located at [address] [place] [address]. Performed By: #### C OVSC #### [address] [place] [address] Covid 19 Resultson 2 SARS-CoV-2 (COVID-19) RNA [...] You may also be contacted by the [facility] to see if any of your [...] or Naproxen (Aleve) can also be used. Fnxr-vgv-vejlyqv cough and cold medicines can be used according to the instructions on the package. Some jbtx-uhx-agmdvgm medicines also contain acetaminophen. Make sure you [...] water are not available, use alcohol-based hand space technologist. Avoid touching your eyes, nose, and mouth [...] 24 maggy (more content not included)... Normal [facility] Patient Profile - Preop v3on 05-10-2022 Patient Profile - Preop v3 Patient Profile - Preop: Initial Info: Patient DemographicsName: SETH BELL Date: 1955 Address: [address] [place] [address] Date/Time 09:19 Primary Phone [phone] Call Attemptedleft message Instructions Givenanticoagulant meds - patient advised to consult ordering provider, appropriate clothing, bring list of medications, bring responsible adult as the boat driver (procedure may be cancelled if no boat driver), time to arrive, remove jewerly/piercings, insurance information, diabetes meds - patient advised to consult ordering provider, center location How to be AddressedBob Spoken Language PreferredEnglish Source of Informationpatient Stated Reason for Admissionleft ear Primary Contact Name and [phone] Limitations on Visitors/Phone Callsnone Medications Brought to Hospitalno General Health: Weight in kg86.4 kilogram(s) Weight in nkt271.4 pound(s) Height in feet5 feet Height in [...] Withspouse Living Arrangementshouse Resource/Environmental Concernsnone Anticipated Transition [place] Services Anticipated at Transitionnone Tobacco Use: Tobacco Useno Pre-op Checklist: Arrival [id number] Arrival Time09:07 Procedure Typeleft ear surgery NPOyes Last Food [id number] 22:00 Last Clear Fluid [id number] 22:00 ID Band On Patientpatient ID (name) [...] 11-May-2022 09:24 by Makeda Augustine (RICARDO) Normal [facility] CORONAVIRUS 2019, SCREEN ASY MPTOMATICon 05-09-2022 Lab Specimen Source Nasal, Nasopharyngeal Normal [facility] Comment on above: Performed By: #### C OVSC #### [facility] [address] [place] [address] CBC AUTO DIFFon 05-03-2022 BASO # 0.0 103/ul Normal 0.0-0.1 [facility] Comment on above: Performed By: #### C BC #### [facility] [address] [place] [address] Dr. Natty Daily Basophils/100 WBC (Bld) 0.2 % Normal 0.2-2.0 [facility] Comment on above: Performed By: #### C BC #### [facility] [address] [place] [address] [address] Natty Daily EO # 0.0 103/ul Normal 0.0-0.7 [facility] Comment on above: Performed By: #### C BC #### [facility] [address] [address] [address] Natty Daily Eosinophils/100 WBC (Bld) 0.0 % Critically low 0.9-7.0 [facility] Comment on above: Performed By: #### C BC #### [facility] [address] [address] [address] Natty Daily Erythrocyte distribution width (RBC) [Ratio] 12.9 % Normal 11.0-15.0 [facility] Comment on above: Performed By: #### C BC #### [facility] [address] [place] [address] Dr. Natty Daily Hematocrit (Bld) [Volume fraction] 38.6 % Critically low 42.0-54.0 [facility] Comment on above: Performed By: #### C BC #### [facility] [address] [place] [address] Dr. Natty Daily Hemoglobin (Bld) [Mass/Vol] 13.1 g/dL Critically low 14.0-18.0 [facility] Comment on above: Performed By: #### C BC #### [facility] [address] [place] [address] Dr. Natty Daily IG # 0.09 10e3/ul Critically high 0.00-0.[address] [facility] Comment on above: Performed By: #### C BC #### [facility] [address] [place] [address] Dr. Natty Daily IG % 1.1 % Critically high 0.0-0.5 [facility] Comment on above: Performed By: #### C BC #### [facility] [address] [place] [address] Dr. Natty Daily LYMPH # 1.3 103/ul Normal 1.2-3.8 [facility] Comment on above: Performed By: #### C BC #### [facility] [address] [place] [address] Dr. Natty Daily Lymphocytes/100 WBC (Bld) 15.8 % Critically low 20.5-60.0 [facility] Comment on above: Performed By: #### C BC #### [facility] [address] [place] [address] Dr. Natty Daily MANUAL DIFF REQ NO Normal [facility] Comment on above: Performed By: #### C BC #### [facility] [address] [place] [address] Dr. Natty Daiyl MCH (RBC) [Entitic mass] 30.9 pg Normal 25.9-34.0 [facility] Comment on above: Performed By: #### C BC #### [facility] [address] [place] [address] Dr. Natty Daily MCHC (RBC) [Mass/Vol] 33.9 g/dL Normal 29.9-35.2 [facility] Comment on above: Performed By: #### C BC #### [facility] [id number] Natty Daily MCV (RBC) [Entitic vol] 91.0 fL Normal 80.0-94.0 [facility] Comment on above: Performed By: #### C BC #### [facility] [id number] Natty Daily MONO # 0.7 103/ul Normal 0.3-0.8 [facility] Comment on above: Performed By: #### C BC #### [facility] [address] [address] [address] Natty Daily Monocytes/100 WBC (Bld) 8.3 % Normal 1.7-12.0 [facility] Comment on above: Performed By: #### C BC #### [facility] [address] [place] [address] Dr. Natty Daily NEUT # 6.1 103/ul Normal 1.4-6.5 [facility] Comment on above: Performed By: #### C BC #### [facility] [address] [place] [address] Dr. Natty Daily Neutrophils/100 WBC (Bld) 74.6 % Normal 43.0-75.0 [facility] Comment on above: Performed By: #### C BC #### [facility] [address] [place] [address] Dr. Natty Daily Platelet mean volume (Bld) [Entitic vol] 9.5 fL Normal 9.5-13.5 [facility] Comment on above: Performed By: #### C BC #### [facility] [address] [place] [address] Dr. Natty Daily PLT 231 103/ul Normal 150-450 [facility] Comment on above: Performed By: #### C BC #### [facility] [id number] Natty Daily RBC 4.24 106/ul Critically low 4.70-6.10 [facility] Comment on above: Performed By: #### C BC #### [facility] [address] [place] [address] Dr. Natty Daily WBC 8.1 103/ul Normal 4.0-11.0 [facility] Comment on above: Performed By: #### C BC #### [facility] [address] [place] [address] Dr. Natty Daily PROF 14(COMP METB)on 022 Albumin [Mass/Vol] 3.9 g/dL Normal 3.4-5.0 [facility] Comment on above: Performed By: #### C MP #### [facility] [address] [place] [address] Dr. Natty Daily Albumin/Globulin [Mass ratio] 1.2 {ratio} Normal [facility] Comment on above: Performed By: #### C MP #### [facility] [address] [place] [address] Dr. Natty Daily ALP [Catalytic activity/Vol] 58 U/L Normal 46-116 [facility] Comment on above: Performed By: #### C MP #### [facility] [address] [place] [address] Dr. Natty Daily ALT [Catalytic activity/Vol] 78 U/L Critically high 16-63 [facility] Comment on above: Performed By: #### C MP #### [facility] [address] [place] [address] Dr. Natty Daily Anion gap [Moles/Vol] 14.3 mmol/L Normal [facility] Comment on above: Performed By: #### C MP #### [facility] [address] [place] [address] Dr. Natty Daily AST [Catalytic activity/Vol] 39 U/L Critically high 15-37 [facility] Comment on above: Performed By: #### C MP #### [facility] [address] [place] [address] Dr. Natty Daily Bilirubin [Mass/Vol] 0.8 mg/dL Normal 0.2-1.0 [facility] Comment on above: Performed By: #### C MP #### [facility] [address] [place] [address] Dr. Natty Daily Calcium [Mass/Vol] 9.0 mg/dL Normal 8.5-10.1 [facility] Comment on above: Performed By: #### C MP #### [facility] [address] [address] [address] Natty Daily Chloride [Moles/Vol] 104 mmol/L Normal 98-107 [facility] Comment on above: Performed By: #### C MP #### [facility] [address] [place] [address] Dr. Natty Daily CO2 [Moles/Vol] 24.8 mmol/L Normal 21.0-32.0 [facility] Comment on above: Performed By: #### C MP #### [facility] [address] [place] [address] Dr. Natty Daily Creatinine [Mass/Vol] 0.77 mg/dL Normal 0.70-1.30 [facility] Comment on above: Performed By: #### C MP #### [facility] [address] [place] [address] Dr. Natty Daily EGFR-AF MACANESE >60 Normal >=60 [facility] Comment on above: Performed By: #### C MP #### [facility] [address] [place] [address] Dr. Natty Daily EGFR-NON AF MACANESE >60 Normal >=60 [facility] Comment on above: Performed By: #### C MP #### [facility] [address] [place] [address] Dr. Natty Daily Globulin (S) [Mass/Vol] 3.2 g/dL Normal [facility] Comment on above: Performed By: #### C MP #### [facility] [address] [place] [address] Dr. Natty Daily Glucose [Mass/Vol] 131 mg/dL Critically high 74-106 [facility] Comment on above: Performed By: #### C MP #### [facility] [address] [place] [address] Dr. Natty Daily Potassium [Moles/Vol] 4.1 mmol/L Normal 3.5-5.1 [facility] Comment on above: Performed By: #### C MP #### [facility] [address] [address] [address] Natty Daily Protein [Mass/Vol] 7.1 g/dL Normal 6.4-8.2 [facility] Comment on above: Performed By: #### C MP #### [facility] [address] [address] [address] Natty Daily Sodium [Moles/Vol] 139 mmol/L Normal 136-145 [facility] Comment on above: Performed By: #### C MP #### [facility] [address] [address] [address] Natty Daily Urea nitrogen [Mass/Vol] 22.0 mg/dL Critically high 7.0-18.0 [facility] Comment on above: Performed By: #### C MP #### [facility] [address] [place] [address] Dr. Natty Daily Urea nitrogen/Creatinine [Mass ratio] 28.6 mg/mg Normal [facility] Comment on above: Performed By: #### C MP #### [facility] [address] [place] [address] Dr. Natty Daily PROTIMEon 05-03-2022 INR Coag (PPP) [Relative time] 1.06 {INR} Normal [facility] Comment on above: Performed By: #### P T, PTT #### [facility] [address] [place] [address] Dr. Natty Daily INR GUIDELINES SEE BELOW Normal [facility] Comment on above: Result Comment: REEMA RED INR: 2.0 - 3.0 CONDITIONS NOT LISTED BELOW 2.5 - 3.5 FOR PROSTHETIC HEART VALVE REPLACEMENT 2.5 - 3.5 RECURRENT THROMBOSIS Performed By: #### P T, PTT #### [facility] [address] [place] [address] Dr. Natty Daily PT Coag (PPP) [Time] 11.4 s Normal 9.0-11.6 [facility] Comment on above: Performed By: #### P T, PTT #### [facility] [address] [place] [address] Dr. Natty Daily PTTon 05-03-2022 aPTT Coag (Bld) [Time] 25.6 s Normal 22.3-36.2 [facility] Comment on above: Performed By: #### P T, PTT #### [facility] [address] [address] [address] Natty Daily Tobacco Screening.on 022 Fall risk assessment a) No falls within the last year [facility] Work Phone: Tobacco use status [facility]PHS b) No [facility] Work Phone: Blood Urea Nitrogenon 2020 Urea nitrogen [Mass/Vol] 21 mg/dL Normal 9-23 [facility] Comment on above: Performed By: #### C REAT, BUN #### [facility] [address] [place] [address] [place] Creatinineon 10-19-2021 Creatinine [Mass/Vol] 0.92 mg/dL Normal 0.64-1.27 [facility] Comment on above: Performed By: #### C REAT, BUN #### [place] [address] [place] Creatinine Clr Calc Pharmacy 86.54 [facility] Comment on above: Result Comment: PERF ORMED BY: [place] [address] PATHOLOGIST METAL POLISHER JAVID GRACIA M.D. Performed By: #### C REAT, BUN #### [address] Estimated GFR ( Jaida > 60 [facility] Comment on above: Result Comment: GFR estimated reference range: According to KDOQI guidelines, <60 ml/min/1.73m2 is sufficient to diagnose a patient with chronic kidney disease. Performed By: #### C REAT, BUN #### [facility] [address] [place] [address] [place] Estimated GFR (Non- Am > 60 Normal [facility] Comment on above: Performed By: #### C MAYCOL FOUNTAIN #### [facility] [address] [id number] [facility] MR prostate wo/w conon 10-19 MR prostate wo/w con [facility] [address] [place] [address] [place] [address] MRI Report Signed Patient: Seth Bell MR#: [id number] : 1955 Acct:[id number] Age/Sex: 65 / M ADM Date: 10/19/21 Loc: MR Room: Type: [facility] Attending Dr: Ailyn Dunn MD Ordering [...] PM COT by: Asa Kline MD Diplomate, [place] [employer] Report Completed: Oct 19, [...] STAFF 10/19/21 1510 Signed By: 10/19/21 1522 [facility] Vital Signs Date Time Vital Sign Value Performing Clinician Facility 10-09-2024 11:08-0500 Body height 170.2 cm [facility] 10-09-2024 11:08-0500 Body mass index (BMI) [Ratio] 28.25 kg/m2 7write Phone: [facility] 10-09-2024 11:08-0500 Body weight 81.83 kg 7write Phone: [facility] [employer] 10-09-2024 11:08-0500 Diastolic blood pressure 72 mm[Hg] 7write Phone: [facility] 10-09-2024 11:08-0500 Heart rate 50 /min Sarah Hooks DO Work Phone: [facility] 10-09-2024 11:08-0500 SaO2% (BldA) [Mass fraction] 97 % Sarah Hooks DO Work Phone: [facility] 10-09-2024 11:08-0500 Systolic blood pressure 118 mm[Hg] Sarah Hooks DO Work Phone: [facility] 09-09-2024 09:41-0400 Body height 170.2 cm Sarah Hooks DO Work Phone: [facility] 09-09-2024 09:41-0400 Body mass index (BMI) [Ratio] 28.38 kg/m2 Sarahzoe Hooks DO Work Phone: [facility] 09-09-2024 09:41-0400 Body weight 82.19 kg Sarah Hooks DO Work Phone: [facility] 09-09-2024 09:41-0400 Diastolic blood pressure 82 mm[Hg] Sarah Hooks DO Work Phone: [facility] 09-09-2024 09:41-0400 Heart rate 51 /min Sarah Bella DO Work Phone: [facility] 09-09-2024 09:41-0400 Respiratory rate 14 /min Sarahzoe Hooks DO Work Phone: [facility] 09-09-2024 09:41-0400 Systolic blood pressure 142 mm[Hg] Sarah Wareett DO Work Phone: [facility] 06-27-2024 13:12-0400 Blood Pressure Location Bonifacio GRAVES [facility] 06-27-2024 13:12-0400 Diastolic blood pressure 74 mm[Hg] Bonifacio GRAVES [facility] 06-27-2024 13:12-0400 Heart rate 45 /min Bonifacio NILL [facility] 06-27-2024 13:12-0400 Respiratory rate 16 /min Bonifacio NILL [facility] [place] 06-27-2024 13:12-0400 Systolic blood pressure 134 mm[Hg] Bonifacio NILL [facility] [place] 04-23-2024 08:22-0400 Diastolic blood pressure 71 mm[Hg] Bonifacio NILL [facility] [place] 04-23-2024 08:22-0400 Heart rate 50 /min Bonifacio NILL [facility] 04-23-2024 08:22-0400 Respiratory rate 16 /min Bonifacio NILL [facility] 04-23-2024 08:22-0400 Systolic blood pressure 130 mm[Hg] Bonifacio NILL [facility] 01-01-2024 12:00-0500 Blood Pressure Location Ailyn DUNN [facility] 01-01-2024 12:00-0500 Diastolic blood pressure 86 mm[Hg] Ailyn DUNN [facility] 01-01-2024 12:00-0500 Heart rate 70 /min Ailyn DUNN [facility] 01-01-2024 12:00-0500 Respiratory rate 16 /min Ailyn DUNN [facility] 01-01-2024 12:00-0500 Systolic blood pressure 122 mm[Hg] Ailyn DUNN [facility] 10-03-2023 10:00-0500 Body height 165.1 cm Stevan Ball Other [employer] Other 10-03-2023 10:00-0500 Body mass index (BMI) [Ratio] 32.71 kg/m2 Stevan Ball Other [employer] Other 10-03-2023 10:00-0500 Body weight 89.18 kg Stevan Ball Other [facility] Other 10-03-2023 10:00-0500 Diastolic blood pressure 81 mm[Hg] Stevan Ball Other [employer] Other 10-03-2023 10:00-0500 Respiratory rate 12 /min Stevan Ball Other [employer] Other 10-03-2023 10:00-0500 Systolic blood pressure 131 mm[Hg] Stevan Ball Other [facility] Other 06-08-2023 09:45-0400 Body height 165.1 cm Stevan Ball Other [employer] Other 06-08-2023 09:45-0400 Body mass index (BMI) [Ratio] 32.15 kg/m2 Stevan Ball Other [employer] Other 06-08-2023 09:45-0400 Body weight 87.64 kg Stevan Ball Other [employer] Other 06-08-2023 09:45-0400 Diastolic blood pressure 66 mm[Hg] Stevan Ball Other [employer] Other 06-08-2023 09:45-0400 Respiratory rate 12 /min Stevan Ball Other [employer] Other 06-08-2023 09:45-0400 Systolic blood pressure 99 mm[Hg] Stevan Ball Other [employer] Other 06-01-2023 11:38-0400 Body height 165.1 cm [employer] PERSONAL ASSIST[employer] Work Phone: [employer] 06-01-2023 11:38-0400 Body mass index (BMI) [Ratio] 32.78 kg/m2 [employer] PERSONAL ASSIST[employer] Work Phone: [employer] 06-01-2023 11:38-0400 Body temperature 97.39 [degF] [employer] PERSONAL [employer]IST[employer] Work Phone: [employer] 06-01-2023 11:38-0400 Body weight 89.36 kg [employer] PERSONAL ASSIST[employer] Work Phone: [employer] 05-29-2023 14:15-0400 Body height 165.1 cm Stevan Ball Other [employer] Other 05-29-2023 14:15-0400 Body mass index (BMI) [Ratio] 32.58 kg/m2 Stevan Ball Other [employer] Other 05-29-2023 14:15-0400 Body weight 88.81 kg Stevan Ball Other [employer] Other 05-29-2023 14:15-0400 Diastolic blood pressure 79 mm[Hg] Stevan Ball Other [employer] Other 05-29-2023 14:15-0400 Respiratory rate 12 /min Stevan Ball Other [employer] Other 05-29-2023 14:15-0400 Systolic blood pressure 124 mm[Hg] Stevan Ball Other [employer] Other 05-09-2023 15:49-0400 Body temperature 98.6 [degF] Lazarus Coronado MD Work Phone: [employer] 05-09-2023 15:49-0400 Diastolic blood pressure 68 mm[Hg] Lazarus Coronado MD Work Phone: [employer] 05-09-2023 15:49-0400 Heart rate 71 /min Lazarus Coronado MD Work Phone: [employer] 05-09-2023 15:49-0400 Respiratory rate 16 /min Lazarus Coronado MD Work Phone: [employer] 05-09-2023 15:49-0400 SaO2% (BldA) [Mass fraction] 94 % Lazarus Coronado MD Work Phone: [employer] 05-09-2023 15:49-0400 Systolic blood pressure 138 mm[Hg] Lazarus Coronado MD Work Phone: [employer] 05-08-2023 07:10-0400 Body height 172.7 cm Lazarus oCronado MD Work Phone: [employer] 05-08-2023 07:10-0400 Body mass index (BMI) [Ratio] 29.63 kg/m2 Lazarus Coronado MD Work Phone: [employer] 05-08-2023 07:10-0400 Body weight 88.41 kg Lazarus Coronado MD Work Phone: [employer] 04-14-2023 10:00-0400 Body height 165.1 cm Stevan Ball Other [employer] Other 04-14-2023 10:00-0400 Body mass index (BMI) [Ratio] 33.24 kg/m2 Stevan Ball Other [employer] Other 04-14-2023 10:00-0400 Body weight 90.63 kg Stevan Ball Other [employer] Other 04-14-2023 10:00-0400 Diastolic blood pressure 93 mm[Hg] Stevan Ball Other [employer] Other 04-14-2023 10:00-0400 Respiratory rate 12 /min Stevan Ball Other [employer] Other 04-14-2023 10:00-0400 Systolic blood pressure 145 mm[Hg] Stevan Ball Other [employer] Other 03-23-2023 10:11-0400 Body height 170.2 cm Lazarus Coronado MD Work Phone: [facility] 03-23-2023 10:11-0400 Body mass index (BMI) [Ratio] 30.98 kg/m2 Lazarus Coronado MD Work Phone: [facility] 03-23-2023 10:11-0400 Body temperature 97.39 [degF] [facility] 03-23-2023 10:11-0400 Body weight 89.72 kg Lazarus Coronado MD Work Phone: [facility] 12-05-2022 09:23-0500 Blood Pressure Location Ailyn DUNN [facility] 12-05-2022 09:23-0500 Diastolic blood pressure 88 mm[Hg] Ailyn DUNN [facility] 12-05-2022 09:23-0500 Heart rate 76 /min Ailyn DUNN [facility] 12-05-2022 09:23-0500 Respiratory rate 16 /min Ailyn DUNN [facility] 12-05-2022 09:23-0500 Systolic blood pressure 130 mm[Hg] Ailyn DUNN [facility] 10-11-2022 11:21-0500 Body temperature 98.4 [degF] Lazarus Coronado MD Work Phone: [employer] [facility] 10-11-2022 11:21-0500 Diastolic blood pressure 63 mm[Hg] Lazarus Coronado MD Work Phone: [employer] [facility] 10-11-2022 11:21-0500 Heart rate 61 /min Lazarus Coronado MD Work Phone: [employer] [facility] 10-11-2022 11:21-0500 Respiratory rate 16 /min Lazarus Coronado MD Work Phone: [employer] [facility] 10-11-2022 11:21-0500 SaO2% (BldA) [Mass fraction] 96 % Lazarus Coronado MD Work Phone: [employer] [facility] 10-11-2022 11:21-0500 Systolic blood pressure 106 mm[Hg] Lazarus Coronado MD Work Phone: [employer] [facility] 10-10-2022 13:00-0500 Body height 165.1 cm Lazarus Coronado MD Work Phone: [employer] [facility] 10-10-2022 13:00-0500 Body mass index (BMI) [Ratio] 30.79 kg/m2 Lazarus Coronado MD Work Phone: [employer] [facility] 10-10-2022 13:00-0500 Body weight 83.92 kg Lazarus Coronado MD Work Phone: [employer] 08-03-2022 14:13-0400 Body height 165.1 cm Lazarus Coronado MD Work Phone: [employer] [facility] 08-03-2022 14:13-0400 Body mass index (BMI) [Ratio] 30.65 kg/m2 Lazarus Coronado MD Work Phone: [employer] 08-03-2022 14:13-0400 Body temperature 97 [degF] Lazarus Coronado MD Work Phone: [facility] 08-03-2022 14:13-0400 Body weight 83.55 kg Lazarus Coronado MD Work Phone: [facility] 03-17-2022 15:18-0400 Body height 170.18 cm Stevan Alex Galdamez Work Phone: RW-Dcdrcbcrptztmc-En [place] Work Phone: 03-17-2022 15:18-0400 Body mass index (BMI) [Ratio] 32.26 kg/m2 Stevan Galdamez Work Phone: KS-Pvwmgztzsxsiuz-Zd [place] Work Phone: 03-17-2022 15:18-0400 Body surface area Derived from formula 2.05 m2 Stevan Johnson Rudolph Work Phone: DI-Byvzdnxpfoilzn-Kc [place] Work Phone: 03-17-2022 15:18-0400 Body temperature 98.4 [degF] Stevan Galdamez Work Phone: GD-Ustdyubaoubrgv-Lw [place] Work Phone: 03-17-2022 15:18-0400 Body weight 93.44 kg Stevan Galdamez Work Phone: XN-Fsawuvdehxahij-Zk [place] Work Phone: 03-17-2022 15:18-0400 0 1 Stevan Galdamez Work Phone: MC-Iunhtjvdjbcywp-Cy [place] Work Phone: Comment on above: [employer] Encounters Encounter Date Encounter Type Care Provider Facility Start: 10-09-2024 End: 10-09-2024 Bamboo [employer] Sarah Hooks DO Work Phone: [facility] Start: 10-09-2024 End: 10-09-2024 [employer]amboo [employer] Sarah Hooks DO Work Phone: [facility] Start: 10-09-2024 End: 10-09-2024 Postop follow up visit related to original px Sarah Hooks DO Work Phone: [facility] Comment on above: S/P laparoscopic her dieudonne repair (Primary Dx) Start: 10-09-2024 End: 10-09-2024 ambulatory SARAH HOOKS Not Available Start: 09-17-2024 End: 09-17-2024 ambulatory Bonifacio R NILL Facility: [facility] Start: 09-17-2024 End: 09-17-2024 Patient encounter procedure Bonifacio R NILL [facility] Start: 09-09-2024 End: 09-09-2024 Bamboo flowsheet Sarah Hooks DO Work Phone: [facility] Start: 09-09-2024 End: 09-09-2024 Bamboo flowsheet Sarah Hooks DO Work Phone: [facility] Start: 09-09-2024 End: 09-09-2024 ambulatory SARAH HOOKS Not Available Start: 09-09-2024 End: 09-09-2024 Office outpatient new 45 minutes Sarah oHoks DO Work Phone: [facility] Comment on above: Right inguinal herni a Start: 06-27-2024 End: 06-27-2024 ambulatory STEVAN RUDOLPH Facility: [facility] Start: 06-27-2024 End: 06-27-2024 Patient encounter procedure Bonifacio R NILL [facility] Start: 05-29-2024 End: 05-29-2024 ambulatory Bonifacio R NILL Facility:[id number] Start: 04-23-2024 End: 04-23-2024 ambulatory Bonifacio R NILL Facility: [facility] Start: 04-23-2024 End: 04-23-2024 Patient encounter procedure Bonifacio R NILL [facility] [place] Start: 04-09-2024 ambulatory Bonifacio ELY Facility:[facility] Start: 03-20-2024 End: 03-20-2024 [facility] Start: 01-01-2024 End: 01-01-2024 ambulatory Ailyn R DUNN Facility:[facility] Start: 01-01-2024 End: 01-01-2024 Patient encounter procedure Ailyn DUNN [facility] Start: 11-27-2023 End: 11-27-2023 ambulatory Stevan Galdamez Other [employer] Other Start: 11-27-2023 Office outpatient vi sit 15 minutes Stevan Ball [facility] Start: 11-27-2023 Telephone encounter Stevan Ball [facility] Start: 10-03-2023 End: 10-03-2023 ambulatory Stevan Ball Other [employer] Other Start: 10-03-2023 Office outpatient vi sit 25 minutes Stevan Ball [facility] Start: 09-21-2023 End: 09-21-2023 ambulatory Stevan Ball Other [employer] Other Start: 09-21-2023 Telephone encounter Stevan Ball [facility] Start: 09-04-2023 End: 09-04-2023 ambulatory Stevan Ball Other [employer] Other Start: 09-04-2023 Telephone encounter Stevan Ball [facility] Start: 09-01-2023 End: 09-01-2023 ambulatory Stevan Ball Other [employer] Other Start: 09-01-2023 Telephone encounter Stevan Ball [facility] Start: 08-28-2023 End: 08-28-2023 ambulatory Stevan Ball Other [employer] Other Start: 08-28-2023 Telephone encounter Stevan Ball [facility] Start: 08-17-2023 End: 08-17-2023 ambulatory Stevan Ball Other [employer] Other Start: 08-17-2023 Telephone encounter Stevan Ball [facility] Start: 08-10-2023 End: 08-10-2023 ambulatory Stevan Ball Other [employer] Other Start: 08-10-2023 Telephone encounter Stevan Ball [facility] Start: 08-08-2023 End: 08-08-2023 ambulatory Stevan Ball Other [employer] Other Start: 08-08-2023 Telephone encounter Stevan Ball [facility] Start: 07-12-2023 End: 07-12-2023 ambulatory Stevan Ball Other [employer] Other Start: 07-12-2023 Telephone encounter Stevan Ball [facility] Start: 07-07-2023 End: 07-07-2023 ambulatory Stevan Ball Other [employer] Other Start: 07-07-2023 Telephone encounter Stevan Ball [facility] Start: 06-13-2023 End: 06-13-2023 ambulatory Stevan Ball Other [employer] Other Start: 06-13-2023 Telephone encounter Stevan Ball [facility] Start: 06-08-2023 End: 06-08-2023 ambulatory Stevan Ball Other [employer] Other Start: 06-08-2023 Office outpatient vi sit 25 minutes Stevan Ball [facility] Start: 06-05-2023 End: 06-05-2023 ambulatory Stevan Ball Other [employer] Other Start: 06-05-2023 Telephone encounter Stevan Galdamez [facility] Start: 06-03-2023 End: 06-04-2023 ambulatory MD ALAN HENLEY Facility:[facility] Start: 06-02-2023 End: 06-02-2023 ambulatory Stevan Galdamez Other [employer] Other Start: 06-02-2023 Telephone encounter Stevan Galdamez [facility] Start: 06-01-2023 Telephone encounter Stevan Galdamez [facility] Start: 06-01-2023 End: 06-01-2023 ambulatory STEVAN GALDAMEZ [employer] Other Start: 06-01-2023 End: 06-01-2023 Postop follow up visit related to original px Mone Watson PERSONAL ASSISTANT-[employer]NER Work Phone: [facility] Comment on above: Hx of total knee art hroplasty, right (Primary Dx) Start: 05-29-2023 End: 05-29-2023 ambulatory Stevan Galdamez Other [employer] Other Start: 05-29-2023 Office outpatient vi sit 15 minutes Stevna Galdamez [facility] Start: 05-09-2023 End: 05-09-2023 ambulatory Stevan Galdamez Other [employer] Other Start: 05-09-2023 Telephone encounter Stevan Galdamez [facility] Start: 05-08-2023 End: 05-09-2023 ambulatory LAZARUS CORONADO [facility] Start: 05-08-2023 End: 05-09-2023 Subsequent hospital visit by physician Lazarus Coronado MD Work Phone: [facility] Comment on above: Osteoarthritis of ri ght knee Start: 04-14-2023 End: 04-14-2023 ambulatory Stevan Galdamez Other [employer] Other Start: 04-14-2023 Encounter for other preprocedural examination Stevan Galdamez [facility] Start: 04-14-2023 Office outpatient vi sit 25 minutes Stevan Galdamez [facility] Start: 04-13-2023 ambulatory [facility] Start: 04-13-2023 Encounter for other preprocedural examination [facility] Start: 04-11-2023 End: 04-11-2023 ambulatory Stevan Galdamez Other [employer] Other Start: 04-11-2023 Telephone encounter Stevan Galdamez FP [facility] Start: 03-24-2023 End: 03-25-[address] STEVAN GALDAMEZ Facility:[facility] Start: 03-23-2023 ambulatory [facility] Start: 03-23-2023 ambulatory [facility] Start: 03-23-2023 End: 03-23-2023 Subsequent hospital visit by physician Mone Watson PERSONAL ASSISTANT[employer] Work Phone: [facility] Start: 03-23-2023 End: 03-23-2023 Office outpatient visit 40 minutes Lazarus Coronado MD Work Phone: [facility] Comment on above: Hx of total hip arth roplasty, left (Primary Dx); Right knee pain, unspecified chronicity Start: 03-23-2023 End: 03-23-2023 Subsequent hospital visit by physician Lazarus Coronado MD Work Phone: [facility] Start: 02-23-[address] STEVAN GALDAMEZ Facili ty:[facility] Start: 12-05-2022 End: 12-05-2022 Patient encounter procedure Ailyn DUNN [facility] Start: 12-03-2022 End: 12-04-2022 ambulatory AILYN DUNN Facility:[facility] Start: 11-03-2022 ambulatory STEVAN GALDAMEZ [facility] Start: 11-03-2022 End: 11-03-2022 Subsequent hospital visit by physician Mone Watson PERSONAL ASSISTANT-[employer]NER Work Phone: [facility] Start: 10-27-2022 End: 10-28-[address] ANETA DUNN . Facility:[facility] Start: 10-10-2022 End: 10-11-2022 ambulatory [facility] Start: 10-10-2022 End: 10-11-2022 Encounter for preprocedural laboratory examination [facility] Start: 10-10-2022 End: 10-11-2022 Patient encounter status Lazarus Coronado MD Work Phone: [facility] Start: 10-10-2022 End: 10-11-2022 Subsequent hospital visit by physician Lazarus Coronado MD Work Phone: [facility] Comment on above: Primary osteoarthrit is of left hip Start: 09-27-2022 Pre-procedure evalua tion luiz Galdamez Other [employer] Other Start: 09-15-2022 ambulatory [facility] Start: 08-03-2022 ambulatory [facility] Start: 08-03-2022 ambulatory [facility] Start: 08-03-2022 End: 08-03-2022 Office outpatient new 60 minutes Lazarus Coronado MD Work Phone: [facility] Comment on above: Left hip pain (Prima ry Dx) Start: 08-03-2022 End: 08-03-2022 Subsequent hospital visit by physician Lazarus Coronado MD Work Phone: [facility] [facility] Radiology Start: 07-23-2022 Adult health examination Milan Galdamez Other [facility] Other Start: 07-21-2022 End: 07-22-[address] STEVAN GALDAMEZ Facility:H1 Start: 06-15-2022 End: 06-16-[address] STEVAN GALDAMEZ Facility:H1 Start: 05-05-2022 Encounter for preprocedural cardiovascular examination DR DOCTOR GILL [facility] Start: 05-05-2022 Encounter for preprocedural laboratory examination DR DOCTOR GILL [facility] Start: 05-04-2022 End: 05-21-[address] STEVAN GALDAMEZ Facility:H1 Start: 05-03-2022 End: 05-04-[address] DOCTOR GILL Facility:H1 Start: 05-03-2022 End: 05-04-2022 Encounter for preprocedural cardiovascular examination DR DOCTOR GILL Facility:H1 Start: 03-17-2022 Office outpatient ne w 45 minutes Stevan Galdamez Work Phone: [facility] Work Phone: Evaluation finding [facility] Work Phone: [facility] Work Phone: Procedures Date Procedure Procedure Detail Performing Clinician Start: 05-29-2024 Colonoscopy Sarah Hooks DO Work Phone: Start: 05-29-2024 Colonoscopy Bonifacio ELY Start: 05-09-2023 Basic metabolic panel calcium total Shahzad Whiting MD Work Phone: Start: 05-09-2023 Complete blood count with white cell differential, automated Mone Watson PERSONAL ASSISTANT-DIE TURNER Work Phone: Start: 05-08-2023 Radiologic examination knee 1/2 views Mone Watson PERSONAL ASSISTANT-DIE TURNER Work Phone: Start: 05-08-2023 End: 05-08-2023 Arthrp kne condyle&platu medial&lat compartments Lazarus Coronado MD Work Phone: Start: 05-08-2023 Cultyp nuc acid amp prb cult/isolate ea orgnism Shahzad Whiting MD Work Phone: Start: 04-20-2023 Arthroplasty of knee Ailynanneliese DUNN Start: 12-03-[address] STEVAN GALDAMEZ Comment on above: Performed By: #### PSAD #### [facility] [address] [place] [address] Dr. Natty Daily Start: 10-11-2022 Basic metabolic panel calcium total Shahzad Whiting MD Work Phone: Start: 10-11-2022 Complete blood count with white cell differential, automated Mone Watson PERSONAL ASSISTANT-DIE TURNER Work Phone: Start: 10-10-2022 Radiologic examination pelvis 1/2 views Mone Thurstoney PERSONAL ASSISTANT-DIE TURNER Work Phone: Start: 10-10-2022 End: 10-10-2022 Arthrp acetblr/prox fem prostc agrft/algrft Lazarus Coronado MD Work Phone: Start: 10-10-2022 Drug test prsmv read direct optical obs pr date Fabian L Guerrero DO Work Phone: Start: 10-10-2022 Blood group typing, RH phenotyping Lazarus Coronado MD Work Phone: Start: 10-10-2022 Sars-cov-2 detection by dna/rna Mone Bertrand montoya PERSONAL ASSISTANT-DIE TURNER Work Phone: Start: 11-20-2021 Repair of hip Ailyn DUNN Start: 11-09-2021 MRI-US fusion guided prostate biopsy Ailyn DUNN Start: 03-08-2018 Preoperative cardiovascular examination Stevan Galdamez Other Start: 10-24-2016 Preoperative pulmonary examination Milan Galdamez Other Start: 05-03-2016 Pre-surgery evaluation Stevan Galdamez Other Start: 09-18-2014 Cystoscopy Ailyn DUNN Start: 11-20-2013 Colonoscopy Bonifacio MARIANDandre Arthroscopy of knee Ailyn DUNN Catheterization of b oth left and right heart Ailyn DUNN Comment on above: stent placement End: 06-15-2022 Depression screening Stevan Galdamez Other Esophagogastroduodenoscopy M dary GRAVES Excision of lumbar i ntervertebral disc [...] 05-29-2034 Screening for malignant neoplasm of colon [facility] Start: 12-23-2024 ambulatory Ambulatory Facility:[facility] Start: 10-09-2024 End: 10-09-2024 Patient encounter procedure 10/09/2024 11:00 AM EST Office Visit SANDIE SUAREZ [address] [facility] [address] [place] [address] Sarah Hooks DO [address] [place] [address] Arrived SANDIE SUAREZ Comment on above: Arrived Start: 05-08-2024 End: 05-08-2024 Patient encounter procedure 05/08/2024 9:00 AM EDT Office Visit [facility] [address] [place] [id number] Mone Watson, PERSONAL ASSISTANT-DIE TURNER [address] [place] [address] [facility] Start: 07-21-2023 Influenza vaccination A [facility] Start: 06-01-2023 End: 06-01-2023 Patient encounter procedure 06/01/2023 11:40 AM EDT Office Visit [address] [address] Mone Watson, PERSONAL ASSISTANT-DIE TURNER [address] [facility] [address] [facility] Start: 04-13-2023 End: 04-13-2023 ambulatory 04/13/2023 Pre-Operative Nurse Assessment Internal Medicine [facility] Pre Admission Start: 03-08-2023 End: 03-08-2023 Patient encounter procedure 03/08/2023 Office Visit Orthopaedics Lazarus Coronado MD [address] [place] [address] [facility] Start: 11-03-2022 End: 11-03-2022 Patient encounter procedure 11/03/2022 Office Visit Orthopaedics Mone Watson, PERSONAL ASSISTANT-DIE TURNER [address] [place] [address] [facility] Start: 09-15-2022 End: 09-15-2022 ambulatory 09/15/2022 Pre-Operative Nurse Assessment Internal Medicine [facility] Pre Admission Start: 08-03-2022 End: 08-03-2023 XR Pelvis 2 Views [facility] Work Phone: Comment on above: 1 Occurrences starti ng 08/03/2022 until 08/03/2022 Expected: 08/03/2022 , Expires: 08/03/2023 Start: 07-21-2022 Influenza vaccination INFLUENZA VACC INE (#1) [facility] Start: 06-03-2022 POV, Provider: Jamie Rojas, Status: Pen, Time: 9:45 AM POV, Provider: Jamie Rojas, Status: Pen, Time: 9:45 AM [facility] Work Phone: Start: 05-12-2021 COVID-19 VACCINE (3 - Booster for Pfizer series) COVID-19 VACCINE (3 - Booster for Pfizer series) [facility] Start: 05-12-2021 COVID-19 VACCINE (3 - Pfizer series) COVID-19 VACCINE (3 - Pfizer series) [facility] Start: 07-09-2020 Pneumococcal vaccination PNEUMOCOCCAL VACCINE SERIES (2 - PPSV23 if available, else PCV20) [facility] Start: 07-09-2020 Pneumococcal Vaccine : 65+ Years (2 of 2 - PPSV23 or PCV20) Pneumococcal Vaccine: 65+ Years (2 of 2 - PPSV23 or PCV20) [facility] Start: 2018 Abdominal aortic aneurysm screening ABDOMINAL AORTIC ANEURYSM HIGH RISK SCREEN [facility] Start: 2018 Pneumococcal vaccination PNEUMOCOCCAL VACCINE SERIES (1 - PCV) [facility] Start: 2003 Prostate specific antigen measurement PROSTATE CANCER SCREENING DISCUSSION [facility] Start: 2003 Zoster vaccine hzv live for subcutaneous use ZOSTER (SHINGLES) VACCINE (1 of 2) [facility] Start: 1998 Colonoscopy COLORECTAL CAN CER SCREENING DISCUSSION [facility] Start: 1998 Screening for malignant neoplasm of colon COLORECTAL CANCER SCREENING DISCUSSION [facility] Start: 1993 Fasting lipid profile LIPID SCREENIN G [facility] Start: 1993 Lipid panel LIPID SCREENING [facility] Start: 1972 Third diphtheria, tetanus and acellular pertussis (DTaP) vaccination TDAP (ADULT) [facility] Start: 1971 Tetanus vaccination TETANUS [facility] Start: 04-20-1956 COVID-19 VACCINE (#1) COVID-19 VACCI NE (#1) [facility] Start: 1953 Hepatitis C antibody , confirmatory test HEPATITIS C VIRUS SCREENING [facility] Start: 1953 Hepatitis C screening HEPATITI S C VIRUS SCREENING [facility] Start: 1953 Screening for malignant neoplasm of colon [facility] Start: 1953 Tetanus vaccination TETANUS [facility] Radiography for bone length studies XR BONE LENGTH STUDY Imaging Routine Right knee pain, unspecified chronicity 03/23/2023 11:04 AM EDT [facility] Work Phone: End: 10-10-2022 RF Unspecified body region Views during surgery [facility] Comment on above: One Time for 1 Occur rences starting 10/10/2022 until 10/10/2022 SURGICAL PATHOLOGY REQUEST SURGICAL PATHOLOGY REQUEST Surg Path Routine Primary osteoarthritis of left hip Release Upon Ordering for 1 Occurrences starting 10/10/2022 [facility] Comment on above: Release Upon Orderin g for 1 Occurrences starting 10/10/2022 SURGICAL PATHOLOGY REQUEST SURGICAL PATHOLOGY REQUEST Surg Path Routine Primary osteoarthritis of right knee Release Upon Ordering for 1 Occurrences starting 05/08/2023 [facility] Comment on above: Release Upon Orderin g for 1 Occurrences starting 05/08/2023 XR Knee - right 3 Views XR KNEE RIGHT 3 VIEWS Imaging Routine Hx of total knee arthroplasty, right 06/01/2023 11:26 AM EDT [facility] XR Knee - right 4 Views [facility] Work Phone: Comment on above: Ordered: 03/23/2023 XR Pelvis and Hip - left Views XR HIP WITH PELVIS LEFT Imaging Routine Left hip pain 08/03/2022 2:08 PM EDT [facility] Work Phone: XR Pelvis and Hip - left Views XR HIP WITH PELVIS LEFT Imaging Routine Hx of total hip arthroplasty, left 11/03/2022 10:44 AM EST [facility] XR Pelvis and Hip - left Views XR HIP WITH PELVIS LEFT Imaging Routine Hx of total hip arthroplasty, left Ordered: 03/07/2023 [facility] Comment on above: Ordered: 03/07/2023 Immunizations Immunization Date Immunization Notes Care Provider Tiffanie daugherty 10-03-2023 influenza, high dose seasonal, preservative-free Stevan Galdamez Other [facility] Other 09-27-2022 influenza, high dose seasonal, preservative-free Stevan Galdamez Other [facility] Other 09-27-2022 influenza virus vaccine, split virus (incl. purified surface antigen) Stevan Galdamez Other [facility] Other 08-20-2021 influenza virus vaccine, split virus (incl. purified surface antigen) Stevan Galdamez Other [facility] Other 03-17-2021 SARS-CoV-2 (COVID-19 ) mRNA BNT-162b2 fam DUNN [facility] 02-24-2021 SARS-CoV-2 (COVID-19 ) mRNA BNT-162b2 vax Ailyn DUNN [facility] 11-20-2020 SARS-CoV-2 (COVID-19 ) mRNA BNT-162b2 vax Ailyn DUNN [facility] Comment on above: Result Comment: pt i s fully vaccinated but does not have his card with him 08-19-2020 influenza virus vaccine, split virus (incl. purified surface antigen) Stevan Galdamez Other [facility] Other 10-29-2019 tetanus and diphther ia toxoids, adsorbed, preservative free, for adult use (5 Lf of tetanus toxoid and 2 Lf of diphtheria toxoid) Stevan Galdamez Other [facility] Other 07-09-2019 pneumococcal conjuga te vaccine, 13 valent Stevan Galdamez Other [facility] Other 07-09-2019 pneumococcal Conjuga te, unspecified formulation; 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: [Need for prophylactic vaccination against Streptococcus pneumoniae (pneumococcus)] Stevan Galdamez Other [facility] Other Payers Date Payer Category Payer Private Health Insurance 2021 Private Health Insurance [facility] 2021 Unknown 2020 Medicare [id number] 1959 Medicare [id number] 1959 Private Health Insurance [facility] [id number] 1955 Unknown [id number] 2.16.84 0.1.593890.3.579.2.593 1953 Unknown [id number] 2.16.84 0.1.092535.3.579.2.593 1953 Unknown [id number] 2.16.84 0.1.186746.3.579.2.593 1953 Unknown [id number] 2.16.84 0.1.513704.3.579.2.593 1953 Unknown [id number] 2.16.84 0.1.330632.3.579.2.593 1953 Unknown [id number] 2.16.84 0.1.619099.3.579.2.593 1953 Unknown [id number] 2.16.84 0.1.922899.3.579.2.593 1953 Unknown [id number] 2.16.84 0.1.074728.3.579.2.593 1953 Unknown [id number] 2.16.8 40.1.297331.3.579.2.159 1953 Unknown [id number] 2.16.8 40.1.833506.3.579.2.983 1953 Unknown [id number] 2.16.8 40.1.025281.3.579.2.983 1953 Unknown [id number] 2.16.8 40.1.042040.3.579.2.983 1953 Unknown [id number] 2.16.8 40.1.856000.3.579.2.983 1953 Unknown [id number] 2.16.8 40.1.345340.3.579.2.983 1953 Unknown [id number] 2.16.8 40.1.661598.3.579.2.983 1953 Unknown [id number] 2.16.8 40.1.608733.3.579.2.983 1953 Unknown [id number] 2.16.8 40.1.400314.3.579.2.983 1953 Unknown [id number] 2.16.8 40.1.034495.3.579.2.983 1953 Unknown [id number] 2.16.8 40.1.028224.3.579.2.983 1953 Unknown [id number] 2.16.8 40.1.662128.3.579.2.983 1953 Unknown [id number] 2.16.8 40.1.819091.3.579.2.983 1953 Unknown [id number] 2.16.8 40.1.215852.3.579.2.983 1953 Unknown [id number] 2.16.8 40.1.057436.3.579.2.983 1953 Unknown [id number] 2.16.84 0.1.268949.3.579.2.1259 1953 Unknown [id number] 2.16.84 0.1.945170.3.579.2.1259 1953 Unknown [id number] 2.16.8 40.1.047977.3.579.2.727 1953 Unknown [id number] 2.16.8 40.1.154521.3.579.2.727 1953 Unknown [id number] 2.16.8 40.1.293589.3.579.2.727 1953 Unknown [id number] 2.16.8 40.1.099759.3.579.2.727 1953 Unknown [id number] 2.16.8 40.1.509657.3.579.2.727 1953 Unknown [id number] 2.16.8 40.1.514638.3.579.2.727 Social History Date Type Detail Facility Start: 05-09-2023 End: 06-01-2023 Former smoker Former smoker [facility] Work Phone: Start: 08-03-2022 End: 06-27-2024 Tobacco smoking status NHIS Ex-smoker [facility] End: 11-20-1988 History of tobacco use Cigarette Smoker [facility] Start: 08-03-2022 End: 06-01-2023 Alcohol intake Current drinker of alcohol (finding) [facility] Start: 08-03-2022 History SDOH Alcohol Comment daily [facility] Start: 1955 Sex Assigned At Not on file A [facility] End: 11-20-1988 History of tobacco use Current smoker [facility] Start: 09-13-2022 End: 04-04-2023 Tobacco use and exposure Smokeless tobacco non-user [facility] Start: 09-30-2022 End: 05-08-2023 Exposure to SARS-CoV-2 (event) Not sure [facility] Tobacco smoking status Never [facility] Start: 05-09-2023 End: 06-01-2023 Sex Assigned At Male [facility] Start: 04-04-2023 Alcohol Comment hard cider daily [facility] Tobacco smoking status VTIS Tobacco smoking consumption unknown [facility] Medical Equipment Procedure Code Equipment Code Equipment Origin al Text Equipment Identifier Dates Bi Mentum Liner [id number] Start: 10-10-2022 22 gauge needle, See Instructions, 12 EA, 1, Use 2 needles per month, one to draw up and one for injection, [id number], Supply, 179, cm, 06/05/20 11:23:00 EDT, Height/Length Measured, 88, kg, 06/05/20 11:23:00 EDT, Weight Measured Start: 06-19-2020 Insert - Knee - [id number] Start: 05-08-2023 22 gauge needle, See [...] Assessment Result Facility 06-27-2024 Functional Status N/A [facility] 04-23-2024 Functional Status N/A [facility] 01-01-2024 Functional Status N/A [facility] 12-05-2022 Functional Status N/A [facility] Clinical Notes 03-17-2022 to 10-09-2024 Sarah Hooks DO - 10/09/2024 11:00 AM Dilan Hooks DO - 09/09/2024 9:30 AM EDT Note Date & Type Note Facility 10-09-2024 History of Present illness Narrative General Surgery H&P Seth Bell 1955 Seth Bell is a 68 y.o. male presents Post-op. Pt presents post op from a robotic right inguinal hernia repair on 09/24. He states that he is doing well, denies any pain. Doing well postoperatively. Denies fevers, chills, or sweats. Denies nausea or vomiting. Tolerating diet and having regular bowel function. No pain currently. No complaints at this time. SUBJECTIVE: MEDICATIONS: ALLERGIES Current Outpatient Medications Medication [...] PAST MEDICAL HISTORY: SOCIAL HISTORY SURGICAL HISTORY: History reviewed. No pertinent past medical history. Past Surgical History: Procedure Laterality Date HERNIA REPAIR 09/24/2024 Right inguinal No family history on file. No Known Allergies Past Surgical History: Procedure Laterality Date HERNIA REPAIR 09/24/2024 Right inguinal Tobacco Use: Medium Risk (06/01/2023) Received from [facility] Patient History Smoking Tobacco Use: Former Smokeless Tobacco Use: Never Passive Exposure: Not on file Alcohol Use: Not on file Depression: Not on file Physical Activity: Not on file REVIEW OF SYMPTOMS: Review of Systems All other systems reviewed and are negative. 10 systems were reviewed. Positives noted above. Remainder are negative per CMS guidelines OBJECTIVE: Visit Vitals BP 118/72 Pulse 50 Ht 5' 7 Wt 180 lb 6.4 oz SpO2 97% BMI 28.25 kg/m BSA 1.97 m Physical Exam Vitals reviewed. General: AAOx3, NAD Head: atraumatic normocephalic Neck: trachea midline. No masses or lymphadenopathy Heart: Regular rate and rhythm Lungs: equal chest rise and fall, non labored breathing Abdomen: soft, nontender, and non distended, incisions c/d/I, no bulges or discomfort Ext: motor 5/5 all extremities with no gross deformities Psych: alert and oriented, behavior appropriate ASSESSMENT AND PLAN: Assessment/Plan Diagnoses and all orders for this visit: S/P laparoscopic hernia repair S/p 09/24 robotic assisted right inguinal hernia repair with mesh Patient doing well. No complaints. Instructed to continue daily washing of incisions and no swimming/bathing until 14 days past procedure or until incisions fully healed. No lifting more then 12-15lbs until 28 days after procedure. Ok to return to work with lifting restrictions mentioned above. Follow up as needed. Thank you, Margareth Hooks DO documented in this encounter [facility] 09-09-2024 History of Present illness Narrative General [...] Tobacco Use: Medium Risk (06/01/2023) Received from [facility] Patient History Smoking Tobacco Use: Former Smokeless [...] Margareth Hooks DO documented in this encounter [facility] 06-27-2024 Note General Surgery Offi ce/Clinic Note [...] E&M of Est. Patient High 40-54 Min 50028 3. 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 Patient High 40-54 Min 57349 Follow-up No qualifying data available Problem List/Past [...] for malignant neoplasm (more content not included)... [facility] Comment on above: Result Comment: Elec tronically Signed By: ELY SHEETS, Bonifacio Dee\.antonio\Date and Time Signed: 06/27/24 14:57 EDT 04-23-2024 [...] mg Cap, 0.4 (more content not included)... [facility] Comment on above: Result Comment: Elec tronically Signed By: ELY SHEETS, Bonifacio Duarte\Date and Time Signed: 04/23/24 09:05 EDT 03-20-2024 Note Patient here for 1 y ear follow up CAD, hypertension, and hyperlipidemia. Denies chest pain, SOB, palpitations, and lightheadedness/syncope. He was admitted in May 2023 for upper GI bleed. Doing very well since then. [facility] 03-20-2024 Note [place] Cardiology Note HPI Chief Complaint: Seth Bell [...] discussed target range. Coronary artery disease involving [place]western [place] coronary artery of [place] heart without angina pectoris Patient adamantly denies [...] -Follow-up in cardiology clinic Joaquim Chaudhary MD [place] Interventional Cardiology [facility] 01-01-2024 Hospital Discharge instructions Patient Education [...] treatment? Where to find more information The [place] [employer]: www.cancer.org [place] [employer]: www.auanet.org Contact a health care [...] provider. Document Revised: 05/02/2022 Document Reviewed: 05/02/2022 [employer] Patient Education 2022 [employer]. Follow Up Care 12/05/2022 10:43:19 With:SHAUN SHEETS, Ailyn Dee, URL Address: [facility] [address] , [place] [phone] When:Within 1 Year(s) Comments:w/ PSA [facility] 11-27-2023 Evaluation note Encounter Date Diagnosis [...] I25.10) Increases risk for more severe infection [facility] Other 01-08-2024 Evaluation note* Encounter Date Diagnosis Assessment Notes Treatment Notes Treatment Clinical Notes Nov, COVID-19 (ICD-10 - U07.1) [facility] Other 11-14-2023 Evaluation note* Encounter Date Diagnosis Assessment Notes Treatment Notes Treatment Clinical Notes Sep, ASHD (arteriosclerotic heart disease) (ICD-10 - I25.10) This patient is stable without activity related CP, dyspnea or lightheadedness. They are instructed to continue exercise and AHA diet plan. Continue secondary prevention measures. 14 Sep, 2023 Hyperlipidemia type II (ICD-10 - E78.01) Instructed [...] normal. Active lifestyle, looking forward to hunting. [facility] Other 11-02-2023 Evaluation note* Encounter Date Diagnosis Assessment Notes Treatment Notes Treatment Clinical Notes Sep, Acute blood loss anemia (ICD-10 - D62) [facility] Other 09-28-2023 Evaluation note* Encounter Date Diagnosis Assessment Notes Treatment Notes Treatment Clinical Notes Jul, ASHD (arteriosclerot ic heart disease) (ICD-10 - I25.10) Jul, Pure hypercholestero lemia (ICD-10 - E78.00) [facility] Other 09-21-2023 Evaluation note* Encounter Date Diagnosis Assessment Notes Treatment Notes Treatment Clinical Notes Jul, Primary hypertension (ICD-10 - I10) [facility] Other 07-20-2023 Evaluation note* Encounter Date Diagnosis [...] bleed, resume after holding for 2 wks [facility] Other 07-17-2023 Evaluation note* Encounter Date Diagnosis Assessment Notes Treatment Notes Treatment Clinical Notes May, Acute blood loss anemia (ICD-10 - D62) [facility] Other 07-14-2023 Evaluation note* Encounter Date Diagnosis Assessment Notes Treatment Notes Treatment Clinical Notes May, Nausea (ICD-10 - R11.0) [facility] Other 07-13-2023 Evaluation note* Encounter Date Diagnosis Assessment Notes Treatment Notes Treatment Clinical Notes May, Bilateral carotid bruits (ICD-10 - R09.89) [facility] Other 07-13-2023 History of Present illness Narrative* Kayley Lisa LPN - 06/01/2023 11:40 AM EDT Ortho Nurse - Established Patient Intake Room#: 5 Date: 06/01/2023 11:43 AM Patient: Seth Bell MR#: [id number] : 1955 Age: 67 y.o. 3 wks [...] Laterality: Right; Surgeon: Lazarus Coronado MD; Location: [facility] OR ARTHROPLASTY HIP TOTAL ANTERIOR APPROACH Left 10/10/2022 Laterality: Left; Surgeon: Lazarus Coronado MD; Location: [facility] OR BACK SURGERY 2016 x2 NECK [...] by Nasal route once for 1 dose. Lyons into the nose as directed. Call 911. [...] by Nasal route once for 1 dose. Lyons into the nose as directed. Call 911. [...] Allergies: He has No Known Allergies. * PRINCE Yo - 06/01/2023 11:40 AM EDT HPI: Seth [...] understanding. All pertinent portions of the clinical client support representative documentation was reviewed and agree. PRINCE Yo Ortho Nurse - Established Patient Intake Room#: 5 Date: 06/01/2023 11:43 AM Patient: Seth Bell MR#: [id number] : 1955 Age: 67 y.o. 3 wks [...] Laterality: Right; Surgeon: Lazarus Coronado MD; Location: [facility] OR ARTHROPLASTY HIP TOTAL ANTERIOR APPROACH Left 10/10/2022 Laterality: Left; Surgeon: Lazarus Coronado MD; Location: [facility] OR BACK SURGERY 2015 x2 NECK [...] by Nasal route once for 1 dose. Lyons into the nose as directed. Call 911. [...] by Nasal route once for 1 dose. Lyons into the nose as directed. Call 911. [...] has No Known Allergies. [facility] Misc[facility] Notes* Nursing Notes - Keira [...] by Keira GUTIERREZ, unable to scan in [facility] due to connectivity issues. * Op Note - Lazarus Coronado MD - 05/09/2023 8:25 AM EDT DATE OF PROCEDURE: May 08, 2023 ATTENDING PHYSICIAN: Lazarus Coronado M.D. OPTOMETRIST/PRACTICE OWNER: Mone Watson CNP PREOPERATIVE DIAGNOSIS: Severe right [...] I referenced this against the flexion gap, Kearney's line, and the epicondylar axis as well. I then used an anterior referencing stylus and sized it to a size 7. At this point then, the 4:1 cutting block was pinned into place, and all four cuts were performed. The f lexion space was opened up with the [place] police chief deputy, and the medial and lateral menisci were [...] of motion and anatomic tracking at the [place] patella. Thus, the patella itself was flipped [...] without the assistance of a skilled surgical dental assistant. A surgical dental assistant was medically necessary for positioning, retraction [...] OPERATIVE/PROCEDURE NOTE Seth Bell 67 y.o. male [id number] SURGEON Surgeon(s) and Role: * Lazarus Coronado MD - Primary OPTOMETRIST/PRACTICE OWNER PRINCE Yo ANESTHESIOLOGIST ROUTER TENDER: MERRY Steele; MERRY Hutchinson SURGICAL STAFF Risk Management Professional: Shelley Brown RN; Debi Wiggins RN Nurse Practitioner: PRINCE Yo Scrub Person: Sarita Lizama RN Library Attendant: Mahesh Armstrong LPN PROCEDURE PERFORMED Procedure(s) (LRB): [...] Implant Name Type Inv. Item Serial No. Supervisor Color Making Lot No. LRB No. Used Action PALACOS R 1 X 40 US - [id number] PALACOS R 1 X 40 US [id number] Right 2 Implanted PATELLA - KNEE - [id number] PATELLA - KNEE [id number] Right 1 Implanted FEMUR - KNEE - [id number] FEMUR - KNEE [id number] Right 1 Implanted Attune Knee System Tibial Base Fixed Bearing DEPUY [id number] Right 1 Implanted INSERT - KNEE - [id number] INSERT - KNEE [id number] Right 1 Implanted SPECIMENS ID Type Source Tests Collected by Time Destination 1 : Bone RIght Knee Permanent TISSUE SURGICAL PATHOLOGY REQUEST Lazarus Coronado MD 05/08/2023 0914 Mone Watson APRN-DIE TURNER May 08, 2023 10:20 AM documented in this encounterCity [facility]06-20-2023 Nurse Note* Nursing Notes - Keira Qiu RN - 05/09/2023 3:41 PM EDT Discharge instructions and education reviewed with pt and his daughter, education provided for dx and new medications, printed education given, denies any questions. Hemovac care reviewed. HOLLY hose, ABDs, and ice packs provided. Meds to beds with integrity seal intact provided. [facility] History of Present illness Narrative* Asa Malik, PRACTICAL NURSING TEACHER - 05/09/2023 12:08 PM EDT 05/09/23 1037 [...] Supine to Sit, Rehab Eval Level of [place]: Supine/Sit supervision Transfer Skill: Sit To Stand, Rehab Eval [place] (Sit-Stand Transfers) contact guard Physical Assist/Nonphysical Assist: Sit/Stand 1 person assist Weight-Bearing Restrictions: Sit/Stand weight-bearing as tolerated Assistive Device For Transfer: Sit/Stand 2 wheeled walker Gait Skills, PT Eval Level of L[place]: Gait contact guard Physical Assist/Nonphysical Assist: Gait 1 person assist Weight-Bearing Restrictions: Gait weight-bearing as tolerated Assistive Device For Transfer: Gait 2 wheeled walker Gait Distance (125ft x2) Gait Analysis, PT Eval Gait Pattern Used swing-through gait Gait Deviations Identified (Gait) decreased win;decreased gait speed;decreased step length;decreased stride length Impairments Contributing To Gait Deviations impaired balance;pain;decreased ROM;decreased strength Stair Negotiation [place] Level: Stair Negotiation contact guard assist Physical [...] Patient to go to outpatient therapy at [facility] tomorrow at 4:30 pm. Patient informed of post-op follow up call tomorrow. Patient verbalizes understanding, he states that he has been very happy with his care and is complementary of the staff. He denies any other needs at this time. * Mone Watson APRN-DIE TURNER - 05/09/2023 7:21 AM EDT Total Joint [...] Laterality: Left; Surgeon: Lazarus Coronado MD; Location: [facility] OR BACK SURGERY 2015 x2 NECK [...] Equipment Available straight cane;wheeled walker;shower chair;elevated toilet seat;sock-aid;core carrier;long-handled shoe horn;dressing stick;long handle sponge Cognitive Status [...] Supine to Sit, Rehab Eval Level of [place]: Supine/Sit stand-by assist Physical Assist/Nonphysical Assist: Supine/Sit 1 person assist Transfer Skill: Sit to Stand, Rehab Eval Level of [place]: Sit/Stand contact guard Physical Assist/Nonphysical Assist: Sit/Stand 1 person assist Weight-Bearing Restrictions: Sit/Stand weight-bearing as tolerated Assistive Device for Transfer: Sit/Stand wheeled walker Upper Body Dressing Level of [place] independent Physical Assist/Nonphysical Assist set-up required Lower Body Dressing Level of [place] maximum assist (25% patients effort) Physical Assist/Nonphysical Assist 1 person assist Toileting Level of [place] contact guard Physical Assist/Nonphysical Assist 1 person assist Grooming [place] Level (Grooming) wash face, hands;contact guard assist Physical Assist/Nonphysical Assist 1 person assist General Therapy Interventions Planned Therapy Interventions (OT Eval) ADL retraining;balance training;transfer training Clinical Impression Co-evaluation/co-treatment performed? Yes, combination of simultaneous billable and individual billable skilled care Patient Instruction Pt instructed on LB dressing techniques rhea brownlee CGA in sitting and standing with instruction [...] as needed Therapist Information License # [id number] 1. Pt will complete LB dressing MOD [...] Laterality: Left; Surgeon: Lazarus Coronado MD; Location: [facility] OR BACK SURGERY 2015 x2 NECK [...] Assistive Device none used Level of Ambulation [facility] General Pain Documentation (Adult, OB, Peds) Presence [...] Supine to Sit, Rehab Eval Level of [place]: Supine/Sit stand-by assist Physical Assist/Nonphysical Assist: Supine/Sit 1 person assist;verbal cues Transfer Skill: Sit To Stand, Rehab Eval [place] (Sit-Stand Transfers) contact guard Physical Assist/Nonphysical Assist: Sit/Stand 1 person assist;verbal cues Weight-Bearing Restrictions: Sit/Stand weight-bearing as tolerated Assistive Device For Transfer: Sit/Stand 2 wheeled walker Gait Skills, PT Eval Level of [place]: Gait contact guard Physical Assist/Nonphysical Assist: Gait [...] strength;impaired motor control;impaired postural control Stair Negotiation [place] Level: Stair Negotiation not tested Sensory Examination [...] PT to follow Therapist Information License # [id number] * Brittani Honeycutt RN - 05/08/2023 12:01 PM EDT Patient was assessed in [facility] [place] on 04/13/23. Met with patient, spouse and daughter for follow up after surgery to discuss discharge plan. Patient plans to return home with spouse and would to like go to outpatient therapy at [facility]. Patient has a wheeled walker and denies any equipmentneeds at this time. Nursing reports that the incision has been closed with dermabond with hemovac in place, will request a 3 week follow up appointment. Patient denies any other questions or needs atthis time. Referral information faxed to [facility] OP Therapy, appointment scheduled for 05/10/23 [...] (184 lb) 10/10/22 83.9 kg (185 lb) Ookala body weight: 68.4 kg (150 lb 12.7 [...] afternoon appointment d/t transportation issues on Monday. [facility] contacted and appointment time changed. Will fax updated information to OP rehab after patient has had surgery. Will continue to follow up with patient and family for discharge needs. * Jazmyne Cardona LPN - 04/13/2023 11:54 AM EDT 04/13/23 1152 Referral Information Arrived From home or self-care Information Source Information Source patient Contact Information Artificial Foliage Arranger Name Brittani Honeycutt RN Case Manager's Living [...] with spouse and have OP therapy at [facility], phone number is [phone], patient prefers late morning appointment. Patient has a FW wheeled walker, in addition to raised toilet seat, railing and shower chair. Patient denies any other questions or needs at thistime. CM to continue to follow and assist with discharge plans. documented in this encounterCity Hospital06-20-2023 Nurse Note* Nursing Notes - Keira Qiu RN - 05/09/2023 11:57 AM EDT Assessment is complete and remains unchanged from previous at this time with any exceptions noted in the flowsheet. Patient denies further needs and is left with call light and personals in reach. [facility] [employer] Maana [id number] Nurse Note* Nursing Notes - Lily Gill RN - 05/09/2023 11:42 AM EDT Patient is admitted to Med Surg floor [facility] [facility]ana [id number] Nurse Note* Nursing Notes - Galilea Rodrigues [...] Medhat to be discharged home later today. [facility]06-20-2023 Nurse Note* Nursing Notes - Diamond Alves RN - 05/09/2023 8:31 AM EDT Oxycodone 10 mg verified by this RN and administered to patient by Keira GUTIERREZ, unable to scan in Markerly due to connectivity issues. [facility]06-20-2023 Surgery Postoperative evaluation and management note* Op Note - Lazarus Coronado MD - 05/09/2023 8:25 AM EDT DATE OF PROCEDURE: May 08, 2023 ATTENDING PHYSICIAN: Lazarus Coronado M.D. OPTOMETRIST/PRACTICE OWNER: Mone Watson CNP PREOPERATIVE DIAGNOSIS: Severe right [...] I referenced this against the flexion gap, Kearney's line, and the epicondylar axis as well. I then used an anterior referencing stylus and sized it to a size 7. At this point then, the 4:1 cutting block was pinned into place, and all four cuts were performed. The flexion space was opened up with the [place] police chief deputy, and the medial and lateral menisci were [...] of motion and anatomic tracking at the [place] patella. Thus, the patella itself was flipped [...] without the assistance of a skilled surgical dental assistant. A surgical dental assistant was medically necessary for positioning, retraction and instrume ntation. [employer] [facility] Work Phone: [phone] Hospital course Narrative* Shhazad Whiting MD - 05/09/2023 7:27 AM EDT [...] by Nasal route once for 1 dose. Lyons into the nose as directed. Call 911. [...] per tablet Commonly known as: PERCOCET Follow-up: [facility] OP Therapy ext: [phone] Follow up on 05/10/2023 Outpatient therapy appointment scheduled for Monday at 4:30 pm, please arrive at 4:15 pm for theregistration process. Bring insurance cards and photo ID. Upcoming Appointments (up to five)-Some appointments for Medical Center outpatient clinics or diagnostic testing locations are not displayed below Provider Department Dept Phone 06/01/2023 11:40 AM Mone Watson [facility] [phone] documented in this encounterCity Hospital06-20-2023 Nurse Note* Nursing Notes - Denise [...] Call light and bedside table within reach. [facility] Nurse Note* Nursing Notes - Denise [...] Call light and bedside table within reach. [facility]-19-2023 Consult note* Shahzad Whiting MD - [...] minutes total time. Shahzad Whiting MD 05/08/2023 [facility]06-19-2023 Consult note* Shahzad Whiting MD - [...] Laterality: Left; Surgeon: Lazarus Coronado MD; Location: [facility] OR BACK SURGERY 2015 x2 NECK [...] Shahzad Whiting MD 05/08/2023 documented in this encounterCity Hospital06-19-2023 Nurse Note* Nursing Notes - Keira Qiu RN - 05/08/2023 3:00 PM EDT Assessment is complete and remains unchanged from previous at this time with any exceptions noted in the flowsheet. Patient denies further needs and is left with call light and personals in reach. [facility] Nurse Note* Nursing Notes - Keira [...] light and personals inreach, family at bedside. [facility] Nurse Note* Chyna Atkins RN - 05/08/2023 10:50 AM EDT Patient discharged from PACU. Patient transported via bed to room 3752. Bed in lowest position calllight within reach. No other complaints at this time. Report given to Keira GUTIERREZ. * Debi Wiggins RN - 05/08/2023 9:11 AM EDT OR 4 Temp: 66.0' Hum: 42.0% documented in this encounterCity Hospital06-19-2023 Nurse Surgical operation note* Chyna Atkins RN - 05/08/2023 10:50 AM EDT Patient discharged from PACU. Patient transported via bed to room 3752. Bed in lowest position calllight within reach. No other complaints at this time. Report given to Keira GUTIERREZ. [facility] Hospital Discharge instructions* Discharge Instructions* Keira [...] - 05/08/2023 10:46 AM EDT Contact Office ([phone]) if: > Total Knee ROM < 90 [...] also empty the drain anytime it is residential full. Follow these steps to empty your [...] Home Care, please call Dr. Coronado's nurse ([phone]) the morning after discharge with the recorded [...] be sent through Care Everywhere. * celecoxib ([place]izen [place]) * docusate (oral/rectal) ([place]) * oxycodone ([place]) documented in this [facility]06-19-2023 Surgery Postoperative evaluation and management note* Brief Op Note - PRINCE Yo - 05/08/2023 10:19 AM EDT POST OPERATIVE/PROCEDURE NOTE Seth Bell 67 y.o. male [id number] SURGEON Surgeon(s) and Role: * Lazarus Coronado MD - Primary OPTOMETRIST/PRACTICE OWNER PRINCE Yo ANESTHESIOLOGIST ROUTER TENDER: MEAGAN SteeleROUTER TENDER; MERRY Hutchinson SURGICAL STAFF Risk Management Professional: Shelley Brown RN; Debi Wiggins RN Nurse Practitioner: PRINCE Yo Scrub Person: Sarita Lizama RN Library Attendant: Mahesh Armstrong LPN PROCEDURE PERFORMED Procedure(s) (LRB): [...] Implant Name Type Inv. Item Serial No. Supervisor Color Making Lot No. LRB No. Used Action PALACOS R 1 X 40 US - [id number] PALACOS R 1 X 40 US [id number] Right 2 Implanted PATELLA - KNEE - [id number] PATELLA - KNEE [id number] Right 1 Implanted FEMUR - KNEE - [id number] FEMUR - KNEE [id number] Right 1 Implanted Attune Knee System Tibial Base Fixed Bearing DEPUY [id number] Right 1 Implanted INSERT - KNEE - [id number] INSERT - KNEE [id number] Right 1 Implanted SPECIMENS ID Type Source Tests Collected by Time Destination 1 : Bone RIght Knee Permanent TISSUE SURGICAL PATHOLOGY REQUEST Lazarus Coronado MD 05/08/2023 0914 Mone Watson APRN-DIE TURNER May 08, 2023 10:20 AM [facility]06-19-2023 Nurse Surgical operation note* Debi Wiggins RN - 05/08/2023 9:11 AM EDT OR 4 Temp: 66.0' Hum: 42.0% [facility]05-26-2023 Evaluation note* Encounter Date Diagnosis Assessment Notes Treatment Notes Treatment Clinical Notes March, Pre-operative examin [facility] (ICD-10 - Z01.818) Reviewed [...] knee (ICD-10 - M17.11) Scheduled for [facility] Other 05-04-2023 History of Present illness Narrative* Sneha Busby LPN - 03/23/2023 10:00 AM EDT Ortho Nurse - Established Patient Intake Room#: 2--Visit today is a 4 month post-op check of Left MIKE (D/A)--10-10-22. His pain today is a 6. Has complaints of stiffness. Date: 03/23/2023 10:20 AM Patient: Seth Bell MR#: [id number] : 1955 Age: 67 y.o. Referring Physician: [...] Laterality: Left; Surgeon: Lazarus Coronado MD; Location: [facility] OR BACK SURGERY 2015 x2 NECK [...] a right total knee arthroplasty for optimal fdc management. Patient is also here today for [...] joint space, subchondral sclerosis, osteophyte formation, and uyqv-bt-xpvx contact. AP hip and pelvis films demonstrate [...] of limb, and ultimately loss of life. senior living expectations, risks and general implant survivorship were also discussed. Despite these risks, the patient would like to proceed with surgical planning. Today, we will initiate the pre- surgical process including nasal MRSA screening, scheduling an appointment for [facility] and the potential surgical date, and reviewing [...] 03/23/2023 10:20 AM Patient: Seth Bell MR#: [id number] : 1955 Age: 67 y.o. Referring Physician: [...] Laterality: Left; Surgeon: Lazarus Coronado MD; Location: [facility] OR BACK SURGERY 2015 x2 NECK [...] has No Known Allergies. documented in this encounterCity Hospital01-16-2023 Hospital Discharge instructions Patient Education 12/05/2022 [...] urethra. Follow these instructions at home: Take nazm-kao-qqxhthv and prescription medicines only as told by [...] 11/06/2006 Document Revised: 10/01/2019 Document Reviewed: 12/11/2017 [employer] Patient Education 2020 [employer]. Follow Up Care 12/03/2021 10:50:50 With:SHAUN SHEETS, Ailyn Dee, TOO Address: [facility] [address] [place] [address]- When: Unknown [facility] 12-08-2022 NoteCONSULTATION CONSULTATION DATE: 10/27/2022 HISTORY OF PRESENT ILLNESS: This is a 67-year-old gentleman returning to the clinic for a three month follow up for his chronic lower back pain and hip pain. Since his last visit in July, the patient had a left total hip replacement and is overall doing wonderful. It was completed at [facility] in [place] by Dr. Coronado. The patient is recovering [...] in three months' time unless otherwise indicated.[id number] Miscellaneous Notes* Nursing Notes - Keira Qiu [...] office foradditional questions Staff Provider office contact: ISAEL * Nursing Notes - Ly Lynn RN [...] PROCEDURE: 10/10/2022 ATTENDING PHYSICIAN: Lazarus Coronado M.D. OPTOMETRIST/PRACTICE OWNER: Mone Watson CNP. PREOPERATIVE DIAGNOSES: 1. Severe [...] diameter, +5 neck length, 12/14 taper. INDICATIONS: eSth is an established patient of [facility]. She is a very pleasant, 66-year-old female [...] induced. The patient was repositioned on the [place] table for anterior hip surgery. The operative [...] and then secured its position with the [place] table lift. With adequate exposure of the [...] without the assistance of a skilled surgical dental assistant. A surgical dental assistant was medically necessary for positioning, retraction [...] 10/10/2022 1:00 PM EST Report received from BRICK PICKER. Patient hooked up to tele and vitals at this time. Call light within reach and bed in low position. * Brief Op Note - PRINCE Yo - 10/10/2022 11:42 AM EST POST OPERATIVE/PROCEDURE NOTE Seht Bell 66 y.o. male [id number] SURGEON Surgeon(s) and Role: * Lazarus Coronado MD - Primary OPTOMETRIST/PRACTICE OWNER PRINCE Yo ANESTHESIOLOGIST ROUTER TENDER: MERRY Rodriguez SURGICAL STAFF Risk Management Professional: Imelda Gilbert RN; Lisa Bueno, BRENDA Nurse Practitioner: PRINCE Yo Bleach Boiler Packer: Don Snider; Refugio De Leon PROCEDURE PERFORMED [...] Implant Name Type Inv. Item Serial No. Supervisor Color Making Lot No. LRB No. Used Action bi mentum press fit cup 53 [id number] Left 1 Implanted femoral stem sz 6 DEPUY [id number] Left 1 Implanted femoral head 28mm DEPUY [id number] Left 1 Implanted bi mentum liner DEPUY [id number] Left 1 Implanted SPECIMENS ID Type Source Tests Collected by Time Destination 1 : left femoral head Permanent TISSUE SURGICAL PATHOLOGY REQUEST Lazarus Coronado MD 10/10/2022 1045 Mone Watson APRN-DIE TURNER October 10, 2022 11:42 AM * Nursing Notes - Brittani Honeycutt RN - 09/15/2022 10:07 AM EDT 09/15/22 1004 Information Source Information Source patient ;child Contact Information Artificial Foliage Arranger Name Brittani Honeycutt RN Case Manager's Living [...] assist with discharge plans. documented in this encounterCity Hospital11-22-2022 Note* Nursing Notes - Keira Qiu RN - 10/11/2022 1:22 PM EST Patient is discharging home with belongings at this time. [facility]11-22-2022 Note* Nursing Notes - Lily [...] foradditional questions Staff Provider office contact: NA [facility]11-22-2022 Note* Nursing Notes - Ly Lynn RN - 10/11/2022 12:39 PM EST Discharge instructions and education reviewed with pt, education provided for dx and new medications, printed education given, denies any questions, IV removed. Extra ABDs, ice packs and holly hose given to patient. Meds to bed with integrity seal intact given to patient also. [facility]11-22-2022 History of Present illness Narrative* Oriana Menendez, [facility] - 10/11/2022 12:14 PM EST AOP Patient Education on Meds to Beds Scripts AOP received prescriptions for Seth Bell for bedside delivery at discharge Medications ordered: Tylenol 325 mg Oxycodone 5 mg Docusate Sodium 100 mg Thera-Tabs Aspirin Ec 81 mg Celebrex 200 mg Issues Identified N/A Patient Education Counseled patient on appropriate use and side effects of medications. Oriana Menendez [facility] * Brittani Honeycutt RN - 10/11/2022 11:37 [...] LE in reclincer: QS,GS,SAQ,AP, heel slide, LAQ [id number] ea. Pt trans sit to stand Patricia [...] 08/03/22 83.6 kg (184 lb 3.2 oz) Ookala body weight: 61.5 kg (135 lb 9.3 [...] Dietitian, Licensed Dietitian 10/11/22 * Mone Watson APRN-CABRERA - 10/11/2022 6:52 AM EST Total Joint [...] Date BACK SURGERY 2015 x2 NECK SURGERY 2015 [...] 0 Equipment Available wheeled walker;shower chair;elevated toilet seat;sock-aid;core carrier;long-handled shoe horn;long handle sponge Cognitive Status Examination Orientation Status (Cognition) oriented x 4 Level of Consciousness alert Able to Follow Commands (Communication) WNL Personal Safety and Judgment intact Sensory Examination Sensory Examination WFL Range of Motion (ROM) Range of Motion Examination bilateral upper extremity ROM was WFL Manual Muscle Testing (MMT) Dominant Hand right Transfer Skill: Sit to Stand, Rehab Eval Level of [place]: Sit/Stand contact guard Physical Assist/Nonphysical Assist: Sit/Stand 1 person assist Weight-Bearing Restrictions: Sit/Stand weight-bearing as tolerated Assistive Device for Transfer: Sit/Stand wheeled walker Upper Body Dressing Level of [place] independent Physical Assist/Nonphysical Assist set-up required Lower Body Dressing Level of [place] moderate assist (50% patients effort) Physical Assist/Nonphysical Assist 1 person assist (including HOLLY johnson) General Therapy Interventions Planned Therapy Interventions (OT Eval) ADL retraining;balance training;transfer training Clinical Impression Co-evaluation/co-treatment performed? Yes, combination of simultaneous billable and individual billable skilled care Patient Instruction Pt instructed on LB dressing techniques doffing surgical underwear with assistance for ABD pad placement, donning boxer brief underwear and shorts in sitting and standing CGA withplacement of ABD pad. Rehab Potential (OT Evidalmis) good, to achieve stated therapy goals Therapy Frequency 7 times a week Today's Treatment Included Pt doing well post op, he is alert and following directions well. Pt spouse had cervical surgery and is currently in a brace, daughters will be assisting at home for a while. One who is present for this session. Pt educated on utilizing core carrier and sock aid for LB dressing techniques Continue care plan yes Goals Goals For Discharge Pt will return home Discussed risk / benefits with patient;patient's family Therapist Recommendations At Discharge Recommendations OT Services not recommended at Discharge Plan Plan for next session continue with bathing, dressing, bathroom transfers and hygiene training Therapist Information License # [id number] 1. Pt will complete LB dressing MOD I 2. Pt will complete sponge bathing MOD I 3. Pt will complete toileting MOD I 4. Pt will complete hygiene/grooming standing at sink independent 5. Pt will complete walk in shower transfer SBA * Nancy Fox PT - 10/10/2022 3:20 PM EST 10/10/22 [...] Supine to Sit, Rehab Eval Level of [place]: Supine/Sit stand-by assist Physical Assist/Nonphysical Assist: Supine/Sit 1 person assist Transfer Skill: Sit To Stand, Rehab Eval [place] (Sit-Stand Transfers) contact guard Physical Assist/Nonphysical Assist: Sit/Stand 1 person assist Weight-Bearing Restrictions: Sit/Stand weight-bearing as tolerated Assistive Device For Transfer: Sit/Stand 2 wheeled walker Gait Skills, PT Eval Level of [place]: Gait contact guard Physical Assist/Nonphysical Assist: Gait [...] scheduled for 11/03/22 @ 10:40 am. * Mone Watson APRN-CABRERA - 10/10/2022 11:43 AM EST THIS PATIENT HAS HAD ORTHOPEDIC SURGERY AND IS EXPECTED TO HAVE PAIN REQUIRING NARCOTICS FOR >7 DAYS AND MAY NEED UP TO 12 tabs of oxcodone PER DAY AND THEREFORE 30tabs ARE BEING DISPENSED IN ACCORDANCE WITH POC DISCUSSED WITH DR CORONADO. Pt to hold chronic percocet while on acute pain regimen. documented in this encounterCity Hospital11-22-2022 Note* Nursing Notes - Ly Lynn RN - 10/11/2022 10:52 AM EST Assessment is complete and remains unchanged from previous at this time with any exceptions noted in the flowsheet. Patient denies further needs and is left with call light and personals in reach. Will continue to monitor. [facility] course Narrative* Shahzad Whiting MD [...] Use Authorization (EUA) for the qualitative detection [id number] nucleic acid. XR FLUORO < 1 HOUR [...] Dept Phone 11/03/2022 10:40 AM Mone Watson [facility] [phone] documented in this [facility]11-22-2022 Note* Op Note - Lazarus Coronado MD - 10/11/2022 7:33 AM EST DATE OF PROCEDURE: 10/10/2022 ATTENDING PHYSICIAN: Lazarus Coronado M.D. OPTOMETRIST/PRACTICE OWNER: Mone Watson CNP. PREOPERATIVE DIAGNOSES: 1. Severe [...] FLUIDS: Adequate. SPECIMENS: Bone. INSTRUMENTATION USED: [employer] Press-fit cup 53 with a 28-53 PE liner, an Actis size 6 high-offset hip stem, and a Biolox delta ceramic head 28 diameter, +5 neck length, 12/14 taper. INDICATIONS: Seth is an established patient of mine. She is a very pleasant, 66-year-old female [...] induced. The patient was repositioned on the [place] table for anterior hip surgery. The operative [...] and then secured its position with the [place] table lift. With adequate exposure of the [...] without the assistance of a skilled surgical dental assistant. A surgical dental assistant was medically necessary for positioning, retraction and instrum entation. reportbrain Work Phone: 1(279) 396-114011-22-2022 Note* Nursing Notes - Felecia Carrera RN - 10/11/2022 2:58 AM EST Pt assessment remains unchanged. Pt c/o 8-910 pain to L. Hip. Pt states pain is stinging. Dilaudid given- see MAR. Pt ambulated to to void at this time. Ice pack changed and applied to L. Hip. Denies any further needs at this time. Call light within reach. [facility] [employer] [id number] Note* Nursing Notes - Felecia Carrera RN - 10/11/2022 12:31 AM EST Pt assessment remains unchanged. Pt c/o 5/10 pain to L. Hip. Medication given - see MAR. Fresh ice pack applied to L. Hip. Denies any further needs at this time. Call light within reach. [facility] [employer] [id number] Note* Nursing Notes - Felecia Carrera RN - 10/10/2022 8:29 PM EST Pt assessment complete. POC reviewed with pt. Pt states pain to L.hip is 5/10. Medication given- see MAR. Ice pack applied to L. Hip. Denies any further needs at this time. Call light within reach. [facility]11-21-2022 Consult note* Shahzad Whiting MD [...] Use Authorization (EUA) for the qualitative detection zbCQFN-GiE-2 nucleic acid. XR FLUORO < 1 HOUR [...] - sleep apnea. Shahzad Whiting MD 10/10/2022 [facility]11-21-2022 Consult note* Shahzad Whiting MD - 10/10/2022 6:[facility]): IP CONSULT TO GENERAL MEDICINE Medical [...] Use Authorization (EUA) for the qualitative detection zjUZDS-TuC-7 nucleic acid. XR FLUORO < 1 HOUR [...] Shahzad Whiting MD 10/10/2022 [facility]* Nursing Notes - Ly Lynn RN - 10/10/2022 3:22 PM EST Assessment is complete and remains unchanged from previous at this time with any exceptions noted in the flowsheet. Patient denies further needs and is left with call light and personals in reach. Will continue to monitor. [facility] Hospital Discharge instructions* Discharge Instructions* Keira [...] - 10/10/2022 2:47 PM EST Contact Office ([phone]) if: > Total Knee ROM < 90 [...] be sent through Care Everywhere. * celecoxib ([place]izen [place]) * docusate (oral/rectal) ([place]izen [place]) * oxycodone ([place]izen [place]) documented in this [facility]11-21-2022 Note* Nursing Notes - Ly Lynn RN - 10/10/2022 1:00 PM EST Report received from BRICK PICKER. Patient hooked up to tele and vitals at this time. Call light within reach and bed in low position. [facility] Nurse Note* Diamond Barillas RN - 10/10/2022 12:45 PM EST Discharged from PACU in stable condition. Transported via bed to room 3754 Bed placed in lowest position. Call light within reach. Report given to Jared GUTIERREZ documented in this [facility]11-21-2022 Nurse Surgical operation note* Diamond Barillas RN - 10/10/2022 12:45 PM EST Discharged from PACU in stable condition. Transported via bed to room 3754 Bed placed in lowest position. Call light within reach. Report given to Jared GUTIERREZ [facility]-21-[facility] Note* Brief Op Note - Mone Watson APRN-CABRERA - 10/10/2022 11:42 AM EST POST OPERATIVE/PROCEDURE NOTE Seth Bell 66 y.o. male [id number] SURGEON Surgeon(s) and Role: * Lazarus Coronado MD - Primary OPTOMETRIST/PRACTICE OWNER PRINCE Yo ANESTHESIOLOGIST ROUTER TENDER: MERRY Rodriguez SURGICAL STAFF Risk Management Professional: Imelda Gilbert RN; Lisa Bueno RN Nurse Practitioner: PRINCE Yo Bleach Boiler Packer: Don Snider; Refugio De Leon PROCEDURE PERFORMED [...] Implant Name Type Inv. Item Serial No. Supervisor Color Making Lot No. LRB No. Used Action bi mentum press fit cup 53 [id number] Left 1 Implanted femoral stem sz 6 DEPUY [id number] Left 1 Implanted femoral head 28mm DEPUY [id number] Left 1 Implanted bi mentum liner DEPUY [id number] Left 1 Implanted SPECIMENS ID Type Source Tests Collected by Time Destination 1 : left femoral head Permanent TISSUE SURGICAL PATHOLOGY REQUEST Lazarus Coronado MD 10/10/2022 1045 PRINCE Yo October 10, 2022 11:42 AM [facility]10-27-2022 Note* Nursing Notes - Brittani Honeycutt RN - 09/15/2022 10:07 AM EDT 09/15/22 1004 Information Source Information Source patient ;child Contact Information Artificial Foliage Arranger Name Brittani Honeycutt RN Case Manager's Living [...] to follow and assist with discharge plans. [facility]09-14-2022 History of Present illness Narrative* Sneha Busby [...] 08/03/2022 2:26 PM Patient: Seth Bell MR#: [id number] : 1955 Age: 66 y.o. Referring Physician: [...] [x]cane, []bracing Are you followed by a tractor mechanic helper? [x] [] Name: [facility] [...] a left total hip arthroplasty for optimal fdc management. PHYSICAL EXAM: This is an alert, [...] of jointspace, subchondral sclerosis, osteophyte formation, and okvu-xw-rvbv contact. Available radiographsfrom 08/2021 appeared normal. IMPRESSION: [...] of limb, and ultimately loss of life. senior living expectations, risks and general implant survivorship were also discussed. Despite these risks, the patient would like to proceed with surgical planning. Today, we will initiate the pre-surgical process including nasal MRSA screening, scheduling an appointment for [facility] and the potential surgical date, and reviewing [...] Rfl: Not on File documented in this [facility]09-01-2022 NoteCONSULTATION CONSULTATION DATE: 07/21/2022 HISTORY OF [...] on 08/18/[address] Lazarus Coronado at [facility], with the intention of moving forward with [...] following his appointment with Dr. Coronado in [place] regarding his hip consultation. He will be seen in the clinic in three months' time unless otherwise indicated.[facility] [id number] NotePROCEDURE DETAILS Preoperative Diagnosis: 1. Conductive hearing loss 2. Otosclerosis Postoperative Diagnosis: 1. Conductive hearing loss 2. Otosclerosis Surgeon: Bob Resident/Fellow/Other Hot Mill Observer: Zeenat Procedure: 1. Left stapedectomy Estimated Blood [...] of operating microscope. Surgeon: Jamie Rojas MD Hot Mill Observer surgeon: Leila Epperson MD Anesthesia: General Endotracheal. [...] mm, 360-degree Eclipse nitinol-based piston manufactured by [employer], [place], [place] was then placed and crimped onto [...] was awakened and tr (more content not included)...[facility] 05-11-2022 NoteHistory & Physical Reviewed: [...] Completion Last Updated: 11-May-2022 10:07 by Jamie Rojas)[facility]04-28-2022 NoteDiagnoses/Problems Blood tests prior to [...] This note was created using speech recognition rotary derrick operator software/or Clusterize rotary derrick operator services. Despite proofreading, several typographical errors might be present that might affect the meaning of the content. Please call with any questions. By signing my name below, I, Amie Lowe, (more content not included)... TouchworksEvaluation + Plan note Future Appointments Appointment Date:12/08/2023 08:30:00 AM Scheduled Provider:Ailyn DUNN MD Location:[facility] Appointment Type:URO Office Visit Diagnostic Tests Pending * PSA Total 12/05/22 [facility] evaluation + Plan note Future Appointments Appointment Date:12/20/2024 08:30:00 AM Scheduled Provider:Ailyn DUNN MD Location:[facility] Appointment Type:URO Office Visit Diagnostic Tests Pending * PSA Total 01/01/24 [facility] evaluation + Plan note Future Appointments Appointment Date:12/20/2024 08:30:00 AM Scheduled Provider:Ailyn DUNN MD Location:[facility] Appointment Type:URO Office Visit [facility] Lucinda Evaluation + Plan note Future Appointments Appointment Date:12/20/2024 08:30:00 AM Scheduled Provider:Ailyn DUNN MD Location:[facility] Appointment Type:URO Office Visit Future Scheduled Tests Laboratory* Creatinine 06/27/24 [facility] General Surgery Bimal evaluation note* Diagnosis Left hip pain Pain in joint, pelvic region and thigh documented in this encounter [facility] EmbedsterEvalutidalhealth [place] note* Diagnosis Left hip pain- Primary Pain in joint, pelvic region and thigh [facility]* Diagnosis Postoperative wound infection of left hip- Primary Other postoperative infection Preop testing Preoperative examination, unspecified Encounter for preoperative screening laboratory testing for COVID-19 virus Primary osteoarthritis of left hip Primary localized osteoarthrosis, pelvic region and thigh Primary osteoarthritis of left hip Primary localized osteoarthrosis, pelvic region and thigh documented in this encounter reportbrainEvaluation note* Diagnosis Hx of total hip arthroplasty, left- Primary Right knee pain, unspecified chronicity documented in this encounter [facility] Mediaalutidal[facility] noteNo InformationOnShift Other evaluation note* Diagnosis Acute postoperative pain of left knee- Primary Primary osteoarthritis of right knee Primary localized osteoarthrosis, lower leg Osteoarthritis of right knee Osteoarthrosis, unspecified whether generalized or localized, lower leg documented in this encounter [facility] [employer] Other evaluation note* Diagnosis Hx of total knee arthroplasty, right- Primary documented in this encounter reportbrainEvalutidalhealth [place] note* Diagnosis Right inguinal hernia Inguinal hernia without mention of obstruction or gangrene, unilateral or unspecified, (not specified as recurrent) documented in this encounter [facility] HealthcareEvaluation note* Diagnosis S/P laparoscopic hernia repair- Primary Other postprocedural status documented in this encounter [facility] HealthcareHistory general Narrative - Reported* Type Description [...] Surgical History [facility] Surgical History PCDF C3-7 2016 Surgical History L2-S1 LAMINECTOMY, DECOMPRESSIO N, FUSION 2017 Surgical History ARTHROSCOPY RIGHT KNEE 2018 Surgical History LAP UMBILICAL HERNIA REPAIR 201 9 Surgical History TRANSRECTAL ULTRASOUND (TRUS) W ITH BIOPSY 2021 Surgical History LEFT TOTAL HIP ARTHROPLASTY 202 2 Hospitalization History SEE SURGICAL OnShift Other History general Narrative - Reported* Type [...] 2013 Surgical History COLONOSCOPY 2013 Surgical History [facility] Surgical History PCDF C3-7 2016 Surgical History L2-S1 LAMINECTOMY, DECOMPRESSIO N, FUSION 2017 Surgical History ARTHROSCOPY RIGHT KNEE 2018 Surgical History LAP UMBILICAL HERNIA REPAIR 201 9 Surgical History TRANSRECTAL ULTRASOUND (TRUS) W ITH BIOPSY 2021 Surgical History LEFT TOTAL HIP ARTHROPLASTY 202 2 Surgical History Right TKA 04/2023` Hospitalization History SEE SURGICAL OnShift Other History general [facility] - [facility] [employer] Other HisHELIX [employer]OMED[employer] general Narrative - Reported* Type Description Date [...] 2013 Surgical History COLONOSCOPY 2014 Surgical History [facility] Surgical History PCDF C3-7 2016 Surgical History L2-S1 LAMINECTOMY, DECOMPRESSIO N, FUSION 2017 Surgical History ARTHROSCOPY RIGHT KNEE 2018 Surgical History LAP UMBILICAL HERNIA REPAIR 201 9 Surgical History TRANSRECTAL ULTRASOUND (TRUS) W ITH BIOPSY 2021 Surgical History LEFT TOTAL HIP ARTHROPLASTY 202 2 Surgical History Right TKA 04/2023` Surgical History EGD 05/2023 Hospitalization History SEE SURGICAL HX OnShift Other History of Present illness Narrative* History [...] my professional assessment of this patient s lunchroom supervisor katarzyna progressive condition, the complexity of evaluation and treatment is moderate. * This note was created using speech recognition rotary derrick operator software/or Clusterize rotary derrick operator services. Despite proofreading, several typographical errors might [...] stapedectomy for otosclerosis is an elective procedure. FA-Itlcnuddmvrtdl-Ujevfgij Work Phone: History of Present illness Narrative* [...] my professional assessment of this patient s lunchroom supervisor katarzyna progressive condition, the complexity of evaluation and treatment is moderate. * This note was created using speech recognition rotary derrick operator software/or [employer]ize rotary derrick operator services. Despite proofreading, several typographical errors might [...] stapedectomy for otosclerosis is an elective procedure. IV-Pjarptrxkerqtd-Xmvwyxlw Work Phone: Hospital course Narrative No data available for this section [facility] Hospital Discharge instructions No data available for this section [facility] Lucinda Progress note No data available for this section [facility] reason for visit Narrative* Auth/Cert Specialty Diagnoses / Procedures Referred By Dodie silverman Referred To Contact Diagnoses Primary osteoarthritis of left hip Primary osteoarthritis of left hip [M16.12] Procedures WI TOTAL HIP ARTHROPLASTY ARTHROPLASTY HIP TOTAL ANTERIOR APPROACH Lazarus Coronado MD [address] [place] [address] Referral ID Status Reason Start Date Expiration Date Visits Re quested Visits Authorized [id number] 08/15/2022 1 1 [employer] Summary Purpose Family History No Family History [...] HIP WITH PELVIS LEFT Lazarus Coronado MD [address] [place] [address] Referral ID Status Reason Start Date Expiration Date V isits Requested Visits Authorized [id number] Pending Review 08/03/2022 08/28/2023 1 1 Specialty Diagnoses / Procedures Referred By Contac t Referred To Contact Diagnoses Right knee pain, unspecified chronicity Procedures XR KNEE RIGHT 4+ VIEWS Lazarus Coronado MD [address] [place] [address] Referral ID Status Reason Start Date Expiration Date V isits Requested Visits Authorized [id number] New Request 03/23/2023 04/16/2024 1 1 Specialty Diagnoses / Procedures Referred By Contac t Referred To Contact Diagnoses Right knee pain, unspecified chronicity Procedures XR BONE LENGTH STUDY Lazarus Coronado MD [address] [place] [address] Referral ID Status Reason Start Date Expiration Date V isits Requested Visits Authorized [id number] New Request 03/23/2023 04/16/2024 1 1 Referral ID Status Reason Start Date Expiration Date V isits Requested Visits Authorized [id number] New Request 03/23/2023 04/16/2024 1 1 Specialty Diagnoses / Procedures Referred By Contac t Referred To Contact Diagnoses Hx of total hip arthroplasty, left Procedures XR HIP WITH PELVIS LEFT Lazarus Coronado MD [address] [place] [address] Referral ID Status Reason Start Date Expiration Date V isits Requested Visits Authorized [id number] New Request 03/07/2023 03/31/2024 1 1 Specialty Diagnoses / Procedures Referred By Contac t Referred To Contact Physical Therapy Diagnoses Acute postoperative pain of left knee Mone Watson, PERSONAL ASSISTANT-DIE TURNER [address] [place] [address] Referral ID Status Reason Start Date Expiration Date V isits Requested Visits Authorized [id number] New Request 05/08/2023 06/01/2024 1 1 Scheduling Instructions . Specialty Diagnoses / Procedures Referred By Contac t Referred To Contact Diagnoses Hx of total knee arthroplasty, right Procedures XR KNEE RIGHT 3 VIEWS Mone Watson, PERSONAL ASSISTANT-DIE TURNER [address] [place] [address] Referral ID Status Reason Start Date Expiration Date V isits Requested Visits Authorized [id number] New Request 05/24/2023 06/17/2024 1 1 Additional Source Comments (unrecognized sect ion and content) No Status Records FoundNo Status Records FoundNo Status Records FoundNo Status Records FoundNo Status Records FoundNo Status Records FoundNo Status Records FoundNo Status Records FoundNo Status Records Found INFORMATION SOURCE (unrecogn ized section and content) DATE CREATED AUTHOR 12/15/2021 [facility] DATE CREATED AUTHOR AUTHOR'S ORGANIZ ATION 07/17/2022 [employer] DATE CREATED AUTHOR AUTHOR'S ORGANIZ ATION 07/18/2022 [facility] DATE CREATED AUTHOR AUTHOR'S ORGANIZ ATION 03/31/2023 [facility] DATE CREATED AUTHOR AUTHOR'S ORGANIZ ATION 06/08/2023 [facility] DATE CREATED AUTHOR AUTHOR'S ORGANIZ ATION 06/27/2023 [facility] DATE CREATED AUTHOR AUTHOR'S ORGANIZ ATION 05/20/2024 [facility] DATE CREATED AUTHOR AUTHOR'S ORGANIZ ATION 10/12/2024 [facility] EPIC DATE CREATED AUTHOR AUTHOR'S ORGANIZ ATION 11/30/2024 [facility] Reason for Visit (unrecogniz ed section and content) Specialty Diagnoses / Procedures Referred By Contac t Referred To Contact Diagnoses Left hip pain Procedures XR HIP WITH PELVIS LEFT Lazarus Coronado MD [address] [place] [address] Referral ID Status Reason Start Date Expiration Date V isits Requested Visits Authorized [id number] Pending Review 08/03/2022 08/28/2023 1 1 Reason Comments Pain New Patient Specialty Diagnoses / Procedures Referred By Contac t Referred To Contact Diagnoses Hx of total hip arthroplasty, left Procedures XR HIP WITH PELVIS LEFT Mone Watson APRN-CABRERA [address] [place] [address] Referral ID Status Reason Start Date Expiration Date V isits Requested Visits Authorized [id number] New Request 10/27/2022 11/21/2023 1 1 Specialty Diagnoses / Procedures Referred By Dodie t Referred To Contact Diagnoses Hx of total hip arthroplasty, left Procedures XR HIP WITH PELVIS LEFT Lazarus Coronado MD [address] [place] [address] Referral ID Status Reason Start Date Expiration Date V isits Requested Visits Authorized [id number] New Request 03/07/2023 03/31/2024 1 1 Specialty Diagnoses / Procedures Referred By Octaviaac t Referred To Contact Diagnoses Right knee pain, unspecified chronicity Procedures XR BONE LENGTH STUDY Lazarus Coronado MD [address] [place] [address] Referral ID Status Reason Start Date Expiration Date V isits Requested Visits Authorized [id number] New Request 03/23/2023 04/16/2024 1 1 Reason Comments Post Op Visit Specialty Diagnoses / Procedures Referred By Octaviaac t Referred To Contact Diagnoses Primary osteoarthritis of right knee Primary osteoarthritis of right knee [M17.11] Procedures WI TOTAL KNEE ARTHROPLASTY ARTHROPLASTY KNEE TOTAL Lazarus Coronado MD [address] [place] [address] Referral ID Status Reason Start Date Expiration Date Visits Re quested Visits Authorized [id number] 03/29/2023 1 1 Reason Comments Post Op Visit Reason Comments Hernia Patient presents wit h right inguinal hernia. Patient states he has had it for more than a month. Patient states he has pain. Has had CT scan. Bulge is mainly in the abdomen but pain also in scrotum. Specialty Diagnoses / Procedures Referred By Dodie t Referred To Contact General Surgery Diagnoses Right inguinal hernia Procedures WI OFFICE/OUTPATIENT NEW HIGH MDM 60 MINUTES Stevan Galdamez MD [address] [place] [address] Phone: tel: fax: Sarah Hooks DO [address] [facility] [address] [place] [address] Phone: tel: fax: Referral ID Status Reason Start Date Expiration Date V isits Requested Visits Authorized [id number] Closed Specialty Services Required 09/04/2024 03/03/2025 1 1 Reason Comments Post-op Pt presents post op from a robotic right inguinal hernia repair on 09/24. He states that he is doing well, denies any pain. He states that there is some tenderness at times. Care Teams (unrecognized sec tion and content) Top And Seat Cover Fitter Relationship Specialty Start Date End Date Stevan Galdamez, DO [address] [facility] [place] [address] PCP - General Internal Medicine 08/03/22 Top And Seat Cover Fitter Relationship Specialty Start Date End Date Stevan Galdamez, DO [address] [facility] [place] [address] PCP - General Internal Medicine 08/03/22 Top And Seat Cover Fitter Relationship Specialty Start Date End Date Stevan Galdamez, DO [address] [facility] [place] [address] PCP - General Internal Medicine 08/03/22 Top And Seat Cover Fitter Relationship Specialty Start Date End Date Stevan Galdamez, DO [address] [facility] [place] [address] PCP - General Internal Medicine 08/03/22 Top And Seat Cover Fitter Relationship Specialty Start Date End Date Stevan Galdamez DO [address] [facility] [place] [address] PCP - General Internal Medicine 08/03/22 Top And Seat Cover Fitter Relationship Specialty Start Date End Date Stevan Galdamez, DO [address] [facility] [place] [facility] [place] [address] PCP - General Internal Medicine 08/03/22 Top And Seat Cover Fitter Relationship Specialty Start Date End Date Stevan Galdamez DO [address] [place] [address] PCP - General Internal Medicine 08/03/22 Top And Seat Cover Fitter Relationship Specialty Start Date End Date Stevan Galdamez DO [address] [facility] [place] [facility] [place] [address] PCP - General Internal Medicine 08/03/22 Top And Seat Cover Fitter Relationship Specialty Start Date End Date Stevan Galdamez DO [address] [facility] [place] [address] PCP - General Internal Medicine 08/03/22 Top And Seat Cover Fitter Relationship Specialty Start Date End Date Stevan Galdamez MD [address] [facility] [place] [facility] [place] [address] PCP - General Internal Medicine 09/04/24 Top And Seat Cover Fitter Relationship Specialty Start Date End Date Stevan Galdamez MD [address] [facility] [place] [facility] [place] [address] PCP - General Internal Medicine 09/04/24 Top And Seat Cover Fitter Relationship Specialty Start Date End Date Stevan Galdamez MD [address] [facility] [place] [facility] [place] [address] PCP - General Internal Medicine 09/04/24 Top And Seat Cover Fitter Relationship Specialty Start Date End Date Stevan Galdamez MD [address] [facility] [place] [facility] [place] [address] PCP - General Internal Medicine 09/04/24 Scheduled [...] Until Discontinued 2030 (Given - Provider: Felecia Carrera, BRENDA) dexAMETHasone [...] Ly Lynn RN)203 (Given - Provider: Felecia Carrera, BRENDA) 024 (Given - Provider: Felecia Carrera RN)0833 [...] 2 g, Intravenous, Administer over 30 Minutes, STATE'S ATTORNEY TO PROCEDURE, 1 dose, Starting on Mon10/10/22 [...] 3/10, Recovery 1204 (Given - Provider: Diamond Barillas, RN)1219 (Given - Provider: Diamond Barillas, RN) [...] Post-op/Post-Proc 1057 (Not Given - Provider: Keira Lazarus, RN - Reason: Other)1650 (Given - Provider: [...] Provider: MERRY Steele)1057 (Stopped - Provider: Keira Lazarus, RN) Sodium chloride 0.9% IV solution Intravenous, [...] admin instructions, Administer 1 hour preop., Pre-op/Pre-Proc 729 (Given - Provider: Keira Qiu RN) bisacodyl (DULCOLAX) suppository 10 mg 10 mg, Rectal, DAILY NEEDED, Starting on Mon05/08/23 at 1051, Until Mon05/09/23 at 1750, constipation, Post-op/Post-Proc ceFAZolin (ANCEF) 2 g in dextrose 100 mL premix IVPB (COMPLETED) 2 g, Intravenous, Administer over 30 Minutes, STATE'S ATTORNEY TO PROCEDURE, 1 dose, Starting on Mon05/08/23 at 0708, Until Discontinued, Other, Pre-operative antibiotic, For 15 Minutes, Pre-op/Pre-Proc 0847 (Given - Provider: Boy Vidal, PERSONAL ASSISTANT-ROUTER TENDER) Celecoxib (CELEBREX) capsule 200 mg (COMPLETED) 200 mg, Oral, ONCE DIRECTED, 1 dose, Starting on Mon05/08/23 at 0708, Until Discontinued, See admin instructions, Administer 2 hours preop., Pre-op/Pre-Proc 729 (Given - Provider: Keira Qiu RN) HYDROmorphone [...] BE BASED ON THE PRIMARY CLINICAL RECORDS. Contacts+ [facility]. provides no warranty or guarantee of the accuracy or completeness of information in this document.
[2024-12-19 12:01] LABS: Prostate Specific Antigen Dx 0.81 ng/mL (<=4.00)
== END 2024-12-19 09:11 | disposition home or self-care (01) ==
PROVIDERS: PCP Internal Medicine; Visit Provider Urology
DX: R97.20 Elevated prostate specific antigen [PSA] (principal)
CPT/HCPCS: 36415; 84153

== ENCOUNTER 2025-04-30 13:30 | Outpatient (OUT) | payer MEDICARE, SELFPAY | END 2025-04-30 13:31 | disposition home or self-care (01) | LOC: PST 13:31 | PROVIDERS: PCP Internal Medicine; Visit Provider Urology | DX: Z01.818 Encounter for other preprocedural examination (principal); N40.1 Benign prostatic hyperplasia with lower urinary tract symptoms ==

== ENCOUNTER 2025-05-01 09:23 | Day surgery (SDC) | payer MEDICARE, SELFPAY ==
--- OUTSIDE RECORDS SUMMARY | 2025-04-18 08:40 | XMS_ITS | Encounter Summary ---
Author Organization [facility] Address [address] [place] [address] Care Team Providers Care Switch Operators Supervisor Name Role Phone Stevan Mitchell DO Primary Care Provider [phone] Reason for Visit * Reason Comments Ear Problem Left ear plugged Encounter Details Date Type Department Care Team (Late st Contact Info) Description 04/18/2025 8:40 AM EDT Office Visit [facility] [address] [place] [address] Daria Davila MD [address] [place] [address] Other specified hearing loss of left ear, unspecified 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 (Primary Dx); Bilateral impacted cerumen Social History Tobacco Use Types Packs/Day Years Used Date Smoking Tobacco: Never Smokeless Tobacco: Never Tobacco Cessation:Counseling Given: Not Answered Sex and Gender Information Value Date Recorded Sex Assigned at Not on file Legal Sex Male 6:37 PM EDT Gender Identity Not on file Sexual Orientation Not on file documented as of this encounter Last Filed Vital Signs Vital Sign Reading Time Taken Comments Blood Pressure 135/77 04/18/2025 8:41 AM EDT Pulse 59 04/18/2025 8:41 AM EDT Temperature - - Respiratory Rate - - Oxygen Saturation - - Inhaled Oxygen Concentration - - Weight 83 kg (183 lb) 04/18/2025 8:41 AM EDT Height 165.1 cm (5' 5 ) 04/18/2025 8:41 AM EDT Body Mass Index 30.45 04/18/2025 8:41 AM EDT documented in this encounter Progress Notes * Daria Davila MD - 04/18/2025 8:40 AM EDT Images from the original note were not included. Subjective Patient ID: Kareem Bell is a 69 y.o. male who presents for Ear Problem (Left ear plugged ) Pt reports he has had left ear fullness and hearing loss a couple months . No audio. Used a nasal spray for 2 weeks. No help. Review of Systems All other systems reviewed and are negative. No family history on file. Active Ambulatory Problems Diagnosis Date Noted Abnormal findings on diagnostic imaging of skull and head, not elsewhere classified 04/10/2023 Anticoagulated 04/10/2023 Arteriosclerosis of coronary artery (CMS/HCC) 08/31/2022 Coronary atherosclerosis (CMS/HCC) 10/06/2012 Arthritis of left hip 04/16/2025 Benign prostatic hyperplasia with urinary obstruction 04/10/2023 Bilateral tinnitus 04/16/2025 BMI 29.0-29.9,adult 02/14/2025 Bradycardia 02/17/2025 Depression (CMS/HCC) 02/14/2025 Diverticulosis 02/14/2025 Encounter for screening for malignant neoplasm of colon 02/14/2025 Erectile dysfunction 04/10/2023 Familial hypercholesterolemia (CMS/HCC) 02/14/2025 Former smoker 04/10/2023 GERD (gastroesophageal reflux disease) 02/14/2025 Heart disease 04/16/2025 Hematuria 04/10/2023 Elevated PSA 04/16/2025 Abdominal pain 04/16/2025 Angina pectoris 10/06/2012 Hypogonadism in male 04/10/2023 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 Cervical spondylosis with myelopathy 04/10/2023 Malaise and fatigue 11/28/2013 Microscopic hematuria 04/10/2023 Mixed conductive and sensorineural hearing loss of left ear with restricted hearing of right ear 04/16/2025 Mixed hyperlipidemia (CMS/HCC) 10/06/2012 Nocturia 04/10/2023 Nicotine addiction 04/16/2025 Obesity 04/10/2023 Obstructive sleep apnea syndrome 02/14/2025 Internal derangement of right knee 04/16/2025 Otosclerosis 04/10/2023 Overweight 02/14/2025 Pain in right knee 04/16/2025 Primary hypertension (CMS/HCC) 08/31/2022 Proteinuria 04/10/2023 Pure hypercholesterolemia (CMS/HCC) 02/17/2025 Retention of urine 11/28/2013 Retrograde ejaculation 04/10/2023 Right inguinal hernia 04/16/2025 RLS (restless legs syndrome) 02/14/2025 Seasonal allergic rhinitis 02/14/2025 Resolved Ambulatory Problems Diagnosis Date Noted No Resolved Ambulatory Problems No Additional Past Medical History Past Surgical History: Procedure Laterality Date BACK SURGERY HERNIA REPAIR 09/24/2024 Right inguinal HIP SURGERY KNEE SURGERY NECK SURGERY No Known Allergies Current Outpatient Medications on File Prior to Visit Medication Sig Dispense Refill amLODIPine-benazepril (Lotrel) 5-20 MG capsule .COMPLEX aspirin (ASPIR) 81 MG EC tablet Take 81 mg by mouth 1 (one) time atorvastatin (Lipitor) 80 MG tablet Take 1 tablet by mouth in the evening buPROPion XL (Wellbutrin XL) 300 MG 24 hr tablet Take 300 mg by mouth Daily finasteride (Proscar) 5 MG tablet Take 1 tablet by mouth Daily metoprolol succinate XL (Toprol-XL) 50 MG 24 hr tablet Take 1 tablet by mouth Daily pantoprazole (ProtoNix) 40 MG EC tablet Take 40 mg by mouth in the morning. Take before meals. Do not crush, chew, or split. tamsulosin (Flomax) 0.4 MG 24 hr capsule Take 0.4 mg by mouth in the morning and 0.4 mg before bedtime. traZODone (Desyrel) 50 MG tablet Take 1 tablet by mouth at bedtime [DISCONTINUED] buPROPion XL (Wellbutrin XL) 150 MG 24 hr tablet Take 1 tablet by mouth Daily [DISCONTINUED] ondansetron ODT (Zofran-ODT) 4 MG disintegrating tablet DISSOLVE 1 (ONE) TABLET ON THE TONGUE EVERY 8 HOURS FOR 5 DAYS [DISCONTINUED] pantoprazole (ProtoNix) 40 MG EC tablet Take 40 mg by mouth in the morning. Take before meals. No current facility-administered medications on file prior to visit. Objective Last Recorded Vitals Vitals: 04/18/25 0841 BP: 135/77 Pulse: 59 ENT Physical Exam Constitutional Appearance: patient appears well-developed and well-nourished, Head and Face Appearance: head appears normal and face appears atraumatic; Ear Ear Canals: bilateral ear canals impacted cerumen observed; Ear comments: Claudio ears normal Nose External Nose: nares patent bilaterally; external nose normal; Internal Nose: nasal mucosa normal; Oral Cavity/Oropharynx Lips: normal; Teeth: normal; Gums: gingiva normal; Tongue: normal; Oral mucosa: normal; Hard palate: normal; Neck Neck: neck normal; neck palpation normal; Thyroid: thyroid normal; Respiratory Inspection: breathing unlabored; normal breathing rate; Auscultation: breath sounds are clear; Cardiovascular Inspection: extremities are warm and well perfused; no peripheral edema present; Auscultation: regular rate and rhythm; Patient ID: Kareem Bell is a 69 y.o. male. Procedures Cerumen was removed from the ears using binocular microscopy under micro with suction Assessment/Plan Diagnoses and all orders for this visit: Other specified hearing loss of left ear, unspecified 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 Bilateral impacted cerumen Left ear sx seem improved after debridement. If still has any sx after 2 days we will check an audio. documented in this encounter Plan of Treatment Not on file documented as of this encounter Visit Diagnoses Diagnosis Other specified hearing loss of left ear, unspecified 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- Primary Bilateral impacted cerumen Impacted cerumen documented in this encounter Care Teams Switch Operators Supervisor Relationship Specialty Start Date End Date Stevan Mitchell DO [address] [place] [id number] PCP - General Internal Medicine 04/17/25 documented as of this encounter
--- OUTSIDE RECORDS SUMMARY | 2025-05-01 09:25 | XMS_ITS | Clinical Summary ---
Author Organization [facility] Address [address] [place] [address] Care Team Providers Care Hogshead Head Matcher Name Role Phone Stevan Mitchell DO Primary Care Provider [phone] Allergies No known active allergies Medications tamsulosin (Flomax) 0.4 mg 24 hr capsule Take 0.4 mg by mouth 2 times daily. Active finasteride (Proscar) 5 mg tablet finasteride 5 mg tablet TAKE 1 TABLET BY MOUTH DAILY Active traZODone (Desyrel) 50 mg tablet trazodone 50 mg tablet TAKE 1 TABLET BY MOUTH EVERY DAY AT BEDTIME 06/23/20 22 Active cyclobenzaprine (Flexeril) 10 mg tablet cyclobenzaprine 10 mg tablet TAKE 1 TABLET BY MOUTH EVERY DAY AT BEDTIME Active metoprolol succinate XL (Toprol-XL) 50 mg 24 hr tablet metoprolol succinate ER 50 mg tablet,extended release 24 hr Take 1 tablet by mouth daily 06/11/20 19 Active aspirin 81 mg EC tablet Take 81 mg by mouth in the morning. Active buPROPion XL (Wellbutrin XL) 300 mg 24 hr tablet Take 450 mg by mouth 1 (one) time each day at the same time. Active amLODIPine-benaze priL (Lotrel) 5-20 mg capsule Take 1 capsule by mouth in the morning. Active atorvastatin (Lipitor) 80 mg tablet in the evening. 06/11/20 19 Active pantoprazole (ProtoNix) 40 mg EC tablet Take 40 mg by mouth in the morning and at bedtime. 02/29/20 24 Active ondansetron ODT (Zofran-ODT) 4 mg disintegrating tablet DISSOLVE 1 (ONE) TABLET ON THE TONGUE EVERY 8 HOURS FOR 5 DAYS 09/24/20 24 Active Cialis 20 mg tablet Take 20 mg by mouth. 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 CYNTHIA (obstructive sleep apnea) 02/14/2025 Overweight 02/14/2025 Right groin pain 02/14/2025 RLS (restless legs syndrome) 02/14/2025 Screening for malignant neoplasm of colon 2024 Seasonal allergic rhinitis 02/14/2025 Osteoarthritis of right knee 05/08/202311/2023 Umbilical hernia 04/10/2023 Sensorineural hearing loss 04/10/2023 Retrograde ejaculation 04/10/2023 Proteinuria 04/10/2023 Otosclerosis 04/10/2023 Obesity 04/10/2023 Nocturia 04/10/2023 Microscopic hematuria 04/10/2023 Hypogonadism in male 04/10/2023 High prostate specific antigen (PSA) 04/10/2023 Hematuria 04/10/2023 Former smoker 04/10/2023 Erectile dysfunction 04/10/2023 Benign prostatic hyperplasia with urinary obstru ction 04/10/2023 Anticoagulated 04/10/2023 Weakness of limb 04/10/2023 Cervical spondylosis with myelopathy 04/10/2023 Abnormal findings on diagnos tic imaging of skull and head, not elsewhere classified 04/10/2023 Primary osteoarthritis of left hip 10/10/2022 Coronary artery disease invo lving [place] coronary artery of [place] heart without angina pectoris 08/31/2022 Assessment & Plan (08/31/2022 11:54 AM EDT): Continue GDMT- ASA, lipitor, toprol Continue risk factor modifications- heart healthy diet, regular exercise as tolerated, and continue medications. RTC 6 months Essential hypertension 08/31/2022 Assessment & Plan (08/31/2022 11:53 AM EDT): 127/74 currently well controlled Continue all medications Renal function normal Mixed hyperlipidemia 08/31/2022 Assessment & Plan (08/31/2022 11:52 AM EDT): continue statin LDL 71.8 stable Pre-operative cardiovascular examination, high r isk surgery 08/31/2022 Assessment & Plan (08/31/2022 11:52 AM EDT): Revised Cardiac Risk Index for Pre-Operative Risk- 1 point Class II risk with 6% 30-day risk of , [place], or cardiac arrest Functional aerobic capacity limited by Osteoarthritis only- no acute cardiac symptoms currently From a Cardiology perspective pt may proceed with planning Orthopedic surgery- Lt hip, pt is a moderate cardiovascular risk for a moderate risk surgery. Pt may hold ASA 5-7 days prior and resume all medications post op as per Surgeon discretion. EKG without any acute concerns today. Hip pain 11/30/2020 Lumbar radiculopathy 11/28/2016 Retention of urine 11/28/2013 Malaise and fatigue 11/28/2013 Angina pectoris 10/06/2012 Encounters Date Type Department Care Team Description 02/17/2025 9:20 AM EDT Office Visit [address] [id number] Bella Hollis MD Coronary artery disease involving [place] coronary artery of [place] heart without angina pectoris (Primary Dx); Bradycardia; Sinus bradycardia; Essential hypertension; Pure hypercholesterolemia; Erectile dysfunction, unspecified erectile dysfunction type; Pure hypertriglyceridemia from Last 3 Months Immunizations Immunization Administration Dates Next Due Unspecified Sars-Cov-2 Vaccination 03/17/2021, Family History Medical History Relation Name Comments Dementia Mother Relation Name Status Comments Father Mother Alive Social History Tobacco Use Types Packs/Day Years Used Date Smoking Tobacco: Former Cigarettes Tobacco Cessation:Counseling Given: Not Answered [place] Safety & Environment Answer Date Rec orded Fear of Current or Ex-Partner Not on file Emotionally Abused Not on file 01/11/2024 Physically Abused Not on file 01/11/2024 Sexually Abused Not on file 01/11/2024 Physically or Sexually Abused Not on file Sex and Gender Information Value Date Recorded Sex Assigned at Not on file Legal Sex Male 9:33 PM EDT Gender Identity Not on file Sexual Orientation Not on file Last Filed Vital Signs Vital Sign Reading Time Taken Comments Blood Pressure 131/76 02/17/2025 9:27 AM EDT Pulse 46 02/17/2025 9:27 AM EDT Temperature 37 C (98.6 F) 10/04/2021 12:46 PM EST Respiratory Rate - - Oxygen Saturation 96% 02/17/2025 9:27 AM EDT Inhaled Oxygen Concentration - - Weight 83.5 kg (184 lb) 02/17/2025 9:27 AM EDT Height 177.8 cm (5' 10 ) 02/17/2025 9:27 AM EDT Body Mass Index 26.4 02/17/2025 9:27 AM EDT Plan of Treatment Health Maintenance Due Date Last Done Comments CT Colonography 1953 FIT-DNA 1953 FIT 1953 FOBT 1955 Medicare Annual Wellness (AWV) 1953 Sigmoidoscopy 1953 Depression Screening 1965 Adult Tetanus 1975 Zoster Vaccines (1 of 2) 2003 Fall Risk Screening 2018 Pneumococcal Vaccine: 50+ Years (2 of 2 - PPSV23, PCV20, or PCV21) 09/03/2019 07/09/2019 COVID-19 Vaccine ( season) 2024 03/17/2021, 03/17/2021, 02/24/2021, Additional history exists Colonoscopy 05/29/2034 05/29/2024 Colorectal Cancer Screening 05/29/2034 Influenza Vaccine Completed 08/28/2024 HIB Vaccines Aged Out No longer eligi ble based on patient's age to complete this topic HPV Vaccines Aged Out No longer eligi ble based on patient's age to complete this topic IPV Vaccines Aged Out No longer eligi ble based on patient's age to complete this topic Meningococcal B Vaccine Aged Out No l onger eligible based on patient's age to complete this topic Meningococcal Vaccine Aged Out No moira america eligible based on patient's age to complete this topic Rotavirus Vaccines Aged Out No longer eligible based on patient's age to complete this topic Procedures Procedure Name Priority Date/Time Associated Diagnosis Comments ECG 12 LEAD UNIT PERFORMED Routine 02/17/2025 9:51 AM EDT Bradycardia from Last 3 Months Results * ECG 12 lead unit performed (02/17/2025 9:51 AM EDT) Bella Hollis MD ECG ORDERABLES Final Result from Last 3 Months Insurance MEDICARE Member Subscriber Plan / Payer (Ef fective 2020-Present) Name:Kareem Bell Member ID:[id number] Relation to Subscriber:Self Name:Kareem Bell Subscriber ID:[id number] Payer ID:[id number] Group ID:Not on file Type:Medicare Address: [facility] [place] [id number] [employer] Care Teams Hogshead Head Matcher Relationship Specialty Start Date End Date Stevan Mitchell DO [address] [place] [phone] PCP - General 08/31/22
--- OUTSIDE RECORDS SUMMARY | 2025-05-01 09:25 | XMS_ITS | Clinical Summary ---
Author Organization [facility] Address [address] [place] [address] Care Team Providers Care Geological Technical Officer Name Role Phone Stevan Mitchell DO Primary Care Provider [phone] Allergies No known active allergies Medications amlodipine-benaze pril 5-40 MG capsule PM Active Aspirin [address] tablet At bedtime. Active atorvastatin 80 MG tablet Take 1 tablet by mouth every evening. 2 Active buPROPion HCl ER, XL, 450 MG Tab SR 24 HR Take 300 mg by mouth daily. 2 Active finasteride 5 MG tablet Active metoprolol succinate 50 MG tablet XL Take 1 tablet by mouth daily. pm Active Tamsulosin HCl 0.4 MG capsule tamsulosin 0.4 mg capsule TAKE 1 CAPSULE BY MOUTH EVERY DAY Active traZODone 50 MG tablet Take 1 tablet by mouth at bedtime. 2 Active cyclobenzaprine 10 MG tablet Take 1 tablet by mouth at bedtime. 2 Active medicinal cannabis (MEDICINAL MARIJUANA) by Unknown route. 2 puffs once daily Active Misc. Devices (Raised Toilet Seat) MiscIndications:A ftercare following left hip joint replacement surgery 1 Units by Unknown route daily. 1 Each 2 Active Diclofenac sodium (Voltaren) 1 % Gel gel Apply 2 g topically as needed. Active Aspirin [address] tablet Take 1 tab twice a day for 30 days. This medication is for blood clot prevention. 60 tablet 3 Active Celecoxib 200 MG capsule Take 1 capsule by mouth 2 times daily. 84 capsule 3 Active Docusate 100 MG capsule Take 1 capsule by mouth 2 times daily. 60 capsule 3 Active therapeutic multivitamin-mine rals tablet Take 1 tablet by mouth at bedtime. 30 tablet 3 Active omeprazole [address] capsule Take 1 capsule by mouth daily. 30 capsule 3 Active oxyCODONE 5 MG tabletIndications :Acute postoperative pain of left knee Take 1-2 tabs po q 4-6 hours prn pain. Wean as tolerated. 30 tablet 3 Active Acetaminophen 325 MG tablet Take 2 tablets by mouth every 4 hours as needed for Mild Pain. 50 tablet 1 3 Active naloxone 4 MG/0.1ML 1 spray by Nasal route once for 1 dose. [place] into the nose as directed. Call 911. If no response in 2 minutes use a new nasal spray in other nostril. Repeat until help arrives. 1 Each 3 Active Active Problems Problem Noted Date Diagnosed Date Osteoarthritis of right knee 05/08/2023 Primary osteoarthritis of left hip 10/10/2022 Family History Medical History Relation Name Comments Diabetes Father Dementia Mother Relation Name Status Comments Father Mother Social History Tobacco Use Types Packs/Day Years Used Date Smoking Tobacco: Former Cigarettes 1 - 1988 Smokeless Tobacco: Never Alcohol Use Standard Drinks/Week Comments Yes 0 (1 standard drink = 0.6 oz pur e alcohol) hard [place] daily Sex and Gender Information Value Date Recorded Sex Assigned at Not on file Legal Sex Male 11:20 AM EDT Gender Identity Not on file Sexual Orientation Not on file Last Filed Vital Signs Vital Sign Reading Time Taken Comments Blood Pressure 138/68 05/09/2023 3:49 PM EDT Pulse 71 05/09/2023 3:49 PM EDT Temperature 36.3 C (97.4 F) 06/01/2023 11:38 AM EDT Respiratory Rate 16 05/09/2023 3:49 PM EDT Oxygen Saturation 94% 05/09/2023 3:49 PM EDT Inhaled Oxygen Concentration - - Weight 89.4 kg (197 lb) 06/01/2023 11:38 AM EDT Height 165.1 cm (5' 5 ) 06/01/2023 11:38 AM EDT Body Mass Index 32.78 06/01/2023 11:38 AM EDT Plan of Treatment Health Maintenance Due Date Last Done Comments HEPATITIS C VIRUS SCREENING 1953 TETANUS 1953 TDAP (ADULT) 1972 LIPID SCREENING 1993 COLORECTAL CANCER SCREENING DISCUSSION 1998 ZOSTER (SHINGLES) VACCINE (1 of 2) 2003 ABDOMINAL AORTIC ANEURYSM HIGH RISK SCREEN 2018 PNEUMOCOCCAL VACCINE SERIES (2 of 2 - PPSV23) 07/09/2020 07/09/2019 COVID-19 VACCINE (3 - 2023-2 5 season) 2024 03/17/2021, 02/24/2021 INFLUENZA VACCINE (Season Ended) 2025 RSV VACCINE (1 - 1-dose 75+ series) 2028 HEP B VACCINE Aged Out No longer elig ible based on patient's age to complete this topic Medical Devices Implanted Type Area Seconds Inspector Device Identifier Shelf Expiration Date Model / Serial / Lot Bi Mentum Press Fit Cup 53 Implanted:Qty: 1 on 10/10/2022 by Lazarus Servin MD at [facility] Left: Hip 09/19/2024 [id number] / / [id number] Femoral Stem Sz 6 Implanted:Qty: 1 on 10/10/2022 by Lazarus Servin MD at [facility] Left: Hip DEPUY 04/19/2032 [id number] / / [id number] Femoral Head 28mm Implanted:Qty: 1 on 10/10/2022 by Lazarus Servin MD at [facility] Left: Hip DEPUY 06/19/2027 [id number] / / [id number] Bi Mentum Liner Implanted:Qty: 1 on 10/10/2022 by Lazarus Servin MD at [facility] Left: Hip DEPUY 05/19/2024 [id number] / / [id number] Palacos R 1 X 40 Us - [id number] Implanted:Qty: 2 on 05/08/2023 by Lazarus Serivn MD at [facility] Right: Knee 10/19/2027 / / [id number] Patella - Knee - [id number] Implanted:Qty: 1 on 05/08/2023 by Lazarus Servin MD at [facility] Right: Knee 11/19/2027 / / [id number] Femur - Knee - [id number] Implanted:Qty: 1 on 05/08/2023 by Lazarus Servin MD at [facility] Right: Knee 12/20/2032 / / [id number] Attune Knee System Tibial Base Fixed Bearing Implanted:Qty: 1 on 05/08/2023 by Lazarus Servin MD at [facility] Right: Knee DEPUY 10/19/2032 [id number] / / [id number] Insert - Knee - [id number] Implanted:Qty: 1 on 05/08/2023 by Lazarus Servin MD at [facility] Right: Knee 12/20/2027 / / [id number] Insurance MEDICARE A AND B MEDICARE SUPPLEMENT Advance Directives For more information, please contact: [phone] (7:30 AM - 6PM [facility], Monday-Monday) * Full Code (Latest Code Status on File) Date Activated Date Inactivated Comments 05/08/2023 10:16 AM * Full Code Date Activated Date Inactivated Comments 10/10/2022 11:40 AM 05/08/2023 10:16 AM Care Teams Geological Technical Officer Relationship Specialty Start Date End Date Stevan Mitchell DO PCP - General Internal Medicine 08/03/22
--- OUTSIDE RECORDS SUMMARY | 2025-05-01 09:26 | XMS_ITS | Clinical Summary ---
Author Organization [facility] Address [address] [place] [address] Phone Care Team Providers Care Frontload Driver Name Role Phone StephenStevan Alex HURLEY Primary Care Provider [phone] Social History Tobacco Use Types Packs/Day Years Used Date Smoking Tobacco: Never Assessed Sex and Gender Information Value Date Recorded Sex Assigned at Not on file Legal Sex Male 6:43 PM EST Gender Identity Not on file Sexual Orientation Not on file Last Filed Vital Signs Vital Sign Reading Time Taken Comments Blood Pressure - - Pulse - - Temperature 36.7 C (98 F) 06/03/2022 10:48 AM EDT Respiratory Rate - - Oxygen Saturation - - Inhaled Oxygen Concentration - - Weight 85 kg (187 lb 8 oz) 06/03/2022 10:48 AM E DT Height 163.8 cm (5' 4.5 ) 06/03/2022 10:48 AM ED T Body Mass Index 31.69 06/03/2022 10:48 AM EDT Plan of Treatment Health Maintenance Due Date Last Done Comments CT Colonography 1953 Colonoscopy 1953 Colorectal Cancer Screening 1953 FIT-DNA (Cologuard) 1953 FIT 1953 Lipid Panel 1953 Sigmoidoscopy 1953 Yearly Adult Physical 1953 Hepatitis C Screening 1971 DTaP/Tdap/Td Vaccines (1 - Tdap) 1975 Pneumococcal Vaccine (1 of 1 - PCV) 2003 Zoster Vaccines (1 of 2) 2003 COVID-19 Vaccine (2023-2 5 season) 2024 Influenza Vaccine (Season Ended) 2025 RSV High Risk: (Elderly (60+ ) or Population) (1 - 1-dose 75+ series) 2028 HIB Vaccines Aged Out No longer eligi ble based on patient's age to complete this topic HPV Vaccines Aged Out No longer eligi ble based on patient's age to complete this topic Hepatitis A Vaccines Aged Out No long er eligible based on patient's age to complete this topic Hepatitis B Vaccines Aged Out No long er eligible based on patient's age to complete this topic IPV Vaccines Aged Out No longer eligi ble based on patient's age to complete this topic Meningococcal Vaccine Aged Out No moira america eligible based on patient's age to complete this topic Rotavirus Vaccines Aged Out No longer eligible based on patient's age to complete this topic Medical Devices Implanted Type Area Instrument Repairer Helper Device Identifier Shelf Expiration Date Model / Serial / Lot Graft, Biodesign, Otologic Repair, 0.6.-0.9cm Case [id number] Implanted:Qty: 1 on 05/11/2022 by Jamie Rojas MD Cochlear Implant [facility] 10/13/2022 [id number] / / [id number] Description:Converted from [facility]. Please see archived information for full log information. Niya Norwood 0.6mm Eva X 4.75mm Nitinol Fluoroplastic Case [id number] Implanted:Qty: 1 on 05/11/2022 by Jamie Rojas MD Cochlear Implant Left: Ear TRELL 12/01/2025 [id number] / / [id number] Description:Converted from [facility]. Please see archived information for full log information. Additional Information:NIYA NORWOOD 0.6MM EVA X 4.75MM NITINOL FLUOROPLASTIC (Implants Care Teams Frontload Driver Relationship Specialty Start Date End Date Stevan Mitchell DO PCP - General 03/17/22
--- OUTSIDE RECORDS SUMMARY | 2025-05-01 09:26 | XMS_ITS | Encounter Summary ---
Author Organization [facility] Address [address] [place] [address] Phone Care Team Providers Care Dry House Attendant Name Role Phone Stevan Mitchell DO Primary Care Provider [phone] Encounter Details Date Type Department Care Team (Late st Contact Info) Description 05/03/2022 Orders Only [facility] [address] [place] [address] Conversion, Onbase Social History Tobacco Use Types Packs/Day Years Used Date Smoking Tobacco: Never Assessed Sex and Gender Information Value Date Recorded Sex Assigned at Not on file Legal Sex Male 6:43 PM EST Gender Identity Not on file Sexual Orientation Not on file documented as of this encounter Plan of Treatment Scheduled Orders Name Type Priority Associated Diagnoses Orde r Schedule OUTSIDE LAB SCAN Lab Ordered: 05/03/2022 OUTSIDE LAB SCAN Lab Ordered: 05/03/2022 documented as of this encounter Visit Diagnoses Not on filedocumented in this encounter Care Teams Dry House Attendant Relationship Specialty Start Date End Date Stevan Mitchell DO PCP - General 03/17/22 documented as of this encounter
--- OUTSIDE RECORDS SUMMARY | 2025-05-01 09:26 | XMS_ITS | Encounter Summary ---
Author Organization [facility] Address [address] [place] [address] Care Team Providers Care Platemaker Name Role Phone Stevan Mitchell DO Primary Care Provider [phone] Encounter Details Date Type Department Care Team (Latest Contact Info) Description 04/18/2025 Travel Social History Tobacco Use Types Packs/Day Years Used Date Smoking Tobacco: Never Smokeless Tobacco: Never Sex and Gender Information Value Date Recorded Sex Assigned at Not on file Legal Sex Male 6:37 PM EDT Gender Identity Not on file Sexual Orientation Not on file documented as of this encounter Plan of Treatment Not on file documented as of this encounter Visit Diagnoses Not on filedocumented in this encounter Care Teams Platemaker Relationship Specialty Start Date End Date Stevan Mitchell DO [address] [place] [id number] PCP - General Internal Medicine 04/17/25 documented as of this encounter
--- OUTSIDE RECORDS SUMMARY | 2025-05-01 09:26 | XMS_ITS | Encounter Summary ---
Author Organization [facility] Address [address] [facility] [address] Care Team Providers Care Senior Bi Architect Name Role Phone Stevan Mitchell DO Primary Care Provider [phone] Encounter Details Date Type Department Care Team (Late st Contact Info) Description 04/18/2025 Bamboo flowsheet [facility] [address] [place] [address] Daria Davila MD [address] [facility] [address] [place] [address] Social History Tobacco Use Types Packs/Day Years [...] on filedocumented in this encounter Care Teams Senior Bi Architect Relationship Specialty Start Date End Date Stevan Mitchell DO [address] [facility] [place] [id number] PCP - General Internal Medicine 04/17/25 documented as of this encounter
--- OUTSIDE RECORDS SUMMARY | 2025-05-01 09:26 | XMS_ITS | Clinical Summary ---
Author Organization [facility] Address [address] [place], [place] [id number] Care Team Providers Care Mixing Machine Operator Name Role Phone Unavailable Primary Care Provider Unavailabl e Allergies No known active allergies Medications tamsulosin ER (FLOMAX) 0.4 mg cp24 Take 0.4 mg by mouth twice daily. Active atorvastatin (LIPITOR) 80 mg tablet Take 80 mg by mouth once daily. Active metoprolol succinate ER (TOPROL XL) 50 mg 24 hr tablet Take 50 mg by mouth once daily. Active amLODIPine-Tamra zepril 5-40 mg per capsule Take 1 capsule by mouth once daily. Active finasteride (PROSCAR) 5 mg tablet Take 5 mg by mouth once daily. Active PARoxetine (PAXIL) 20 mg tablet Take 20 mg by mouth once daily. Active Social History Tobacco Use Types Packs/Day Years Used Date Smoking Tobacco: Former Sex and Gender Information Value Date Recorded Sex Assigned at Not on file Legal Sex Male 8:27 AM EST Gender Identity Not on file Sexual Orientation Not on file Plan of Treatment Health Maintenance Due Date Last Done Comments Abdominal Aortic Aneurysm Screening 1953 Anxiety Screening 1971 Depression Screening 1971 Hepatitis C Screening 1971 DTaP,Tdap,Td Vaccine (1 - Tdap) [address] Colonography 1998 Cologuard (FIT-DNA) 1998 Colonoscopy 1998 Colorectal Cancer Screening 1998 Diabetes Screening 1998 Fecal Occult Blood 1998 Sigmoidoscopy 1998 Pneumococcal Vaccine: 50+ (1 of 1 - PCV) 2003 Shingrix Vaccine (1 of 2) 2003 Covid-19 Vaccine (1 - 2024-25 season) 2024 Advance Directive Discussion 11/20/2024 Influenza Vaccine (Season Ended) 2025 RSV Vaccine (1 - 1-dose 75+ series) 2028 Insurance [employer]
--- OUTSIDE RECORDS SUMMARY | 2025-05-01 09:26 | XMS_ITS | Encounter Summary ---
Author Organization [facility] Address [address] [place] [address] Phone Care Team Providers Care Bandoleer Straightener Stamper Name Role Phone Stevan Mitchell DO Primary Care Provider [phone] Encounter Details Date Type Department Care Team (Late st Contact Info) Description 12/28/2021 Orders Only [facility] [address] [place] [address] Conversion, Onbase Social History Tobacco Use Types Packs/Day Years Used Date Smoking Tobacco: Never Assessed Sex and Gender Information Value Date Recorded Sex Assigned at Not on file Legal Sex Male 6:43 PM EST Gender Identity Not on file Sexual Orientation Not on file documented as of this encounter Plan of Treatment Scheduled Orders Name Type Priority Associated Diagnoses Orde r Schedule AUDIOLOGY REPORT - ONBASE SCAN Audiology Ordered: 022 documented as of this encounter Visit Diagnoses Not on filedocumented in this encounter Care Teams Bandoleer Straightener Stamper Relationship Specialty Start Date End Date Stevan Mitchell DO PCP - General 03/17/22 documented as of this encounter
--- OUTSIDE RECORDS SUMMARY | 2025-05-01 09:26 | XMS_ITS | Clinical Summary ---
Author Organization [facility] Address [address] [place] [address] Care Team Providers Care Phototypesetter Operator Name Role Phone Stevan Mitchell Primary Care Provider [phone] Allergies No known active allergies Medications aspirin (ASPIR) 81 MG EC tablet Take 81 mg by mouth 1 (one) time Active atorvastatin (Lipitor) 80 MG tablet Take 1 tablet by mouth in the evening Active finasteride (Proscar) 5 MG tablet Take 1 tablet by mouth Daily 4 Active metoprolol succinate XL (Toprol-XL) 50 MG 24 hr tablet Take 1 tablet by mouth Daily 4 Active tamsulosin (Flomax) 0.4 MG 24 hr capsule Take 0.4 mg by mouth in the morning and 0.4 mg before bedtime. 4 Active traZODone (Desyrel) 50 MG tablet Take 1 tablet by mouth at bedtime Active amLODIPine-benazep ril (Lotrel) 5-20 MG capsule .COMPLEX 4 Active buPROPion XL (Wellbutrin XL) 300 MG 24 hr tablet Take 300 mg by mouth Daily 5 Active pantoprazole (ProtoNix) 40 MG EC tablet Take 40 mg by mouth in the morning. Take before meals. Do not crush, chew, or split. Active buPROPion XL (Wellbutrin XL) 150 MG 24 hr tablet Take 1 tablet by mouth Daily 025 Discontin ued(Thera py completed ) pantoprazole (ProtoNix) 40 MG EC tablet Take 40 mg by mouth in the morning. Take before meals. 4 025 Discontin ued(Thera py completed ) ondansetron ODT (Zofran-ODT) 4 MG disintegrating tablet DISSOLVE 1 (ONE) TABLET ON THE TONGUE EVERY 8 HOURS FOR 5 DAYS 4 025 Discontin ued(Thera py completed ) Active Problems Problem Noted Date Diagnosed Date Arthritis of left hip 04/16/2025 Bilateral tinnitus 04/16/2025 Heart disease 04/16/2025 Elevated PSA 04/16/2025 Abdominal pain 04/16/2025 Mixed conductive and sensori neural hearing loss of left ear with restricted hearing of right ear 04/16/2025 Nicotine addiction 04/16/2025 Overview (04/16/2025): Age started, PPD, age quit Internal derangement of right knee 04/16/2025 Pain in right knee 04/16/2025 Right inguinal hernia 04/16/2025 Bradycardia 02/17/2025 Pure hypercholesterolemia 02/17/2025 BMI 29.0-29.9,adult 02/14/2025 Depression 02/14/2025 Diverticulosis 02/14/2025 Encounter for screening for malignant neoplasm o f colon 02/14/2025 Familial hypercholesterolemia 02/14/2025 GERD (gastroesophageal reflux disease) 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 Obstructive sleep apnea syndrome 02/14/2025 Overweight 02/14/2025 RLS (restless legs syndrome) 02/14/2025 Seasonal allergic rhinitis 02/14/2025 Abnormal findings on diagnos tic imaging of skull and head, not elsewhere classified 04/10/2023 Anticoagulated 04/10/2023 Benign prostatic hyperplasia with urinary obstru ction 04/10/2023 Erectile dysfunction 04/10/2023 Former smoker 04/10/2023 Hematuria 04/10/2023 Hypogonadism in male 04/10/2023 Cervical spondylosis with myelopathy 04/10/2023 Microscopic hematuria 04/10/2023 Nocturia 04/10/2023 Obesity 04/10/2023 Otosclerosis 04/10/2023 Proteinuria 04/10/2023 Retrograde ejaculation 04/10/2023 Arteriosclerosis of coronary artery 08/31/2022 Overview (04/16/2025): PTCA LAD - 2008 Primary hypertension 08/31/2022 Overview (04/16/2025): Carotid US: < 50% B/L - 05/2023 Malaise and fatigue 11/28/2013 Retention of urine 11/28/2013 Coronary atherosclerosis 10/06/2012 Angina pectoris 10/06/2012 Mixed hyperlipidemia 10/06/2012 Encounters Date Type Department Care Team Description 04/18/2025 8:40 AM EDT Office Visit [facility] [address] [place] [address] Daria Davila MD Other specified hearing loss of left ear, unspecified 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 (Primary Dx); Bilateral impacted cerumen 04/18/2025 [facility]amboo flow[facility] [address] [place] [address] Daria Davila MD 04/18/2025 Travel from Last 3 Months Family History Relation Name Status Comments Father Mother Social [...] AM EDT Temperature - - Respiratory Rate 14 09/09/2024 9:41 AM EDT Oxygen Saturation 97% 10/09/2024 11:08 AM EST Inhaled Oxygen Concentration - - Weight 83 kg (183 lb) 04/18/2025 8:41 AM EDT Height 165.1 cm (5' 5 ) 04/18/2025 8:41 AM EDT Body Mass Index 30.45 04/18/2025 8:41 AM EDT Plan of Treatment Health Maintenance Due Date Last Done Comments CT Colonography 1953 FIT-DNA 1953 FIT 1953 FOBT 1953 Sigmoidoscopy 1953 Pneumococcal Vaccine: 65+ Ye ars (2 of 2 - PPSV23) 07/09/2020 07/09/2019 Colonoscopy 05/29/2034 05/29/2024 Colorectal Cancer Screening 05/29/2034 Influenza Vaccine Completed 08/28/2024, , 09/27/2022, Additional history exists Insurance MEDICARE AET Care Teams Phototypesetter Operator Relationship Specialty Start Date End Date Stevan Mitchell DO [address] [place] [id number] PCP - General Internal Medicine 04/17/25
--- OUTSIDE RECORDS SUMMARY | 2025-05-01 09:26 | XMS_ITS | Encounter Summary ---
Author Organization [facility] Address [address] [place] [address] Phone Care Team Providers Care Board Certified Arts Therapist Name Role Phone Stevan Mitchell DO Primary Care Provider [phone] Encounter Details Date Type Department Care Team (Late st Contact Info) Description 05/04/2022 Orders Only [facility] [address] [place] [address] Conversion, Onbase Social History Tobacco Use Types [...] r Schedule OUTSIDE LAB SCAN Lab Ordered: 05/04/2022 documented as of this encounter Visit Diagnoses Not on filedocumented in this encounter Care Teams Board Certified Arts Therapist Relationship Specialty Start Date End Date Stevan Mitchell DO PCP - General 03/17/22 documented as of this encounter
[2025-05-01 09:30] VITALS: BP 154/84; PULSE 57; TEMP 36.4; O2SAT 99
[2025-05-01] MEDS: LIDOCAINE 2% JELLY 10 ML UR (11:15)
[2025-05-01 11:17] VITALS: BP 145/86; BP 170/88; PULSE 56; PULSE 58; O2SAT 98; O2SAT 99
--- NOTE | 2025-05-01 11:34 | P.URON_ITS ---
Urology Surgery Operative Note Operative Note Procedure Date: 05/01/25 Time Out Performed: yes Pre-op Diagnosis: BPH with LUTS refractory to medications Post-op Diagnosis: same as pre-op Procedures performed: 1. Cystoscopy. Anesthesia: local Primary Surgeon: Irving Rose Complications: None Estimated blood loss (mL): 0 Findings: 1. Long obstructing lateral lobes. 2. High-grade bladder damage with thick trabeculation and open diverticuli diffusely. No bladder tumors. Specimens: None Drains: None Indications for Procedures: This gentleman has BPH with LUTS for which he takes max meds in the form of alpha blockade and 5 alpha reductase inhibition. He has had recent prostate infection and difficulty with urination. He now presents for cystoscopy. He has signed an informed consent. Detailed description of Procedure: The patient was kept on the [place] bed and brought into the endoscopy suite. He was in the supine position. Timeout was done by all parties in the room. Genitalia were sterilely prepped and draped in the usual fashion. 2% lidocaine gel was passed per urethra. I then passed a flexible cystoscope per urethra and into the bladder. His meatus was slightly narrow. Anterior urethra was normal. Prostatic urethra revealed by lobar fairly long obstructing lateral lobes. Careful panendoscopy in the bladder revealed no evidence of any bladder tumors or stones. He had rather thick trabeculation with open diverticuli diffusely. On retroflex of the scope no new findings were noted. The scope was then removed. He was then discharged to home. The plan is that we will either do a rezume procedure of the prostate or a TURP. He will call our office with his choice.
== END 2025-05-01 11:40 | disposition home or self-care (01) ==
LOC: SURGOUT 09:23
PROVIDERS: PCP Internal Medicine; Visit Provider Urology
PROC: (CPT 52000; principal; 2025-05-01 09:50)
DX: N40.1 Benign prostatic hyperplasia with lower urinary tract symptoms (principal); R39.14 Feeling of incomplete bladder emptying; I25.10 Atherosclerotic heart disease of native coronary artery without angina pectoris; F32.A Depression, unspecified; I10 Essential (primary) hypertension; R78.5 Finding of other psychotropic drug in blood; G47.30 Sleep apnea, unspecified; N32.89 Other specified disorders of bladder; N32.3 Diverticulum of bladder
CPT/HCPCS: 52000

== ENCOUNTER 2025-07-15 09:44 | Outpatient (OUT) | payer MEDICARE, SELFPAY ==
--- OUTSIDE RECORDS SUMMARY | 2025-07-15 09:53 | XMS_ITS | CCD ---
Author Organization [facility] Clini[facility]v Care Team Providers Care Income Tax Preparer Name Role Phone Stevan Galdamez Unavailable Unavailable Unavailable Stevan Galdamez DO Primary Care Provider Stevan Galdamez DO Primary Care Provider STEVAN GALDAMEZ Primary Care Physician [phone] RUDOLPH, DR ZUÑIGA Primary Care Unavailable GONZLAEZ ., MARIA EUGENIA Consulting Unavailable DUNN ., DR ANETA Gonzalez Attending Unavailable DUNN ., DR ANETA Gonzalez Admitting Unavailable BALL, DR ZUÑIGA Primary Care Unavailable LAKSHMIPATHY ., NARYANNA Admitting Laura vailable LAKSHMIPATHY ., NARYANNA Attending Laura vailable BALL, DR ZUÑIGA Admitting [...] DUNN ., DR ANETA Gonzalez Attending Unavailable BALL, DR ZUÑIGA Primary Care Unavailable HALKER ., ELIZ Admitting Unavailable HALKER ., ELIZ Attending Unavailable HALJUANY ., ELIZ Consulting Unavailable Stevan Galdamez Unavailable Stevan Galdamez DO Primary Care Provider [phone] MD ALAN HENLEY Attending Unavailable LAZARUS CORONADO Referring Unavailable STEVAN GALDAMEZ Primary Care Unavailable LAZARUS CORONADO Attending Unavailable LAZARUS CORONADO Admitting Unavailable LAZARUS CORONADO Referring Unavailable BALL, STEVAN Primary Care Unavailable [...] LAZARUS Referring Unavailable FOSTER, LAZARUS Attending Unavailable Ball Stevan SHEETS Primary Care Provider JOAQUIM CHAUDHARY Attending Unavailable JOHN ARRIETA Attending Unavailable Stevan Galdamez DO Primary Care Provider SABINO DEXTER Attending Unavailable BALL, STEVAN E Referring Unavailable NEVA, SARAH Attending Unavailable BALL, STEVAN E Referring Unavailable NEVA, SARAH Attending Unavailable DUNN, Ailyn R Attending Unavailable DUNN, Ailyn R Attending Unavailable DUNN, Ailyn R Attending Unavailable DUNN, Ailyn R Attending Unavailable NILL, Bonifacio R Attending Unavailable BALL, STEVAN Referring Unavailable DUNN, Ailyn R Attending Unavailable DUNN, Ailyn R Attending Unavailable DUNN, Ailyn R Referring Unavailable DUNN, Ailyn R Admitting Unavailable DUNN, Ailyn R Attending Unavailable DUNN, Ailyn R Attending Unavailable NILL, Bonifacio R Attending Unavailable Ball Stevan HURLEY Primary Care Provider Stevan Galdamez DO Provider [phone] Allergies Allergy Classification Reported Allergen(s) Allergy Type Date of Onset Reaction(s) Facility (10 sources) patient allergy list reviewed by nurse or physicia Propensity to adverse reactions 7 Comment:Done [employer] Other (10 sources) Allergies Reconciled Propensity to adverse reactions Unknown [employer] Other (1 source) No Known Medication Allergies; 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: [No Known Medication Allergies] Propensity to adverse reactions (disorder) [facility] Repository Medications Current Medications Medication Drug Class(es) Dates Sig (Normalized) Sig (Original) 3mL syringe (10 sources) Start: 06-19-2020 3mL syringe 3m L syringe, See Instructions, 6 EA, 1, Use 1 syringe each month, [id number], Supply, 179, cm, 06/05/20 11:23:00 EDT, Height/Length Measured, 88, kg, 06/05/20 11:23:00 EDT, Weight Measured Start Date: 06/19/20 Status: Ordered Quantity: 6.0 Unit: EA Repeat number: 2 Start: 06-19-2020 3mL syringe 3m L syringe, See Instructions, 6 EA, 1, Use [...] six hours acetaminophen (TYLENOL) tablet 1,000 mg acetaminophen 325 mg / HYDROcodone bitartrate 7.5 mg oral tablet (2 sources) Opioid Agonist Start: 05-06-2025 take 1 tablet by mouth once, then take 1 tablet by mouth every hour [place] 325 mg-7.5 mg oral tablet 1 tab(s), Oral, Once, 1 tab(s), Refill(s) 0, Take 1 hour prior to procedure, [facility], 179, cm, 04/30/25 8:07:00 EDT, Height/Length Dosing, 82.9, kg, 04/30/25 8:07:00 EDT, Weight Dosing Start Date: 05/06/25 Status: Ordered Quantity: 1.0 Unit: tab(s) Repeat number: 1 acetaminophen 325 mg / traMADol hydrochloride 37.5 mg oral tablet (2 sources) Opioid Agonist Start: 05-06-2025 take 1 tablet by mouth every twelve hours Ultracet 325 mg-37.5 mg Tab 1 tab(s), Oral, q12hr, 20 tab(s), Refill(s) 0, For after the procedure, [facility], 179, cm, 04/30/25 8:07:00 EDT, Height/Length Dosing, 82.9, kg, 04/30/25 8:07:00 EDT, Weight Dosing Start Date: 05/06/25 Status: Ordered Quantity: 20.0 Unit: tab(s) Repeat number: 1 amLODIPine 5 mg / benazepril hydrochloride 20 mg oral capsule (20 sources) Dihydropyridine Calcium Channel Juvenal, Angiotensin Converting Enzyme Inhibitor Start: 08-14-2024 take 1 capsule by mouth once daily Amlodipine-Benazep ril 5-20 mg capsule Active 0 .ROUTE .COMPLEX 90 August 14, 2024 8:25pm TAKE 1 CAPSULE BY MOUTH EVERY DAY Complies with 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 Start: 04-11-2024 amLODIPine-saba azepril (Lotrel) 5-20 MG capsule .COMPLEX 04/11/2024 Active Start: 01-12-2024 End: 08-14-2024 take 1 capsule by mouth once daily Amlodipine-Benazepril 5-20 mg capsule Discontinued 1 CAP PO Daily January 12, 2024 1:00am August 14, 2024 8:26pm Start: 06-08-2023 amLODIPine Bes y-Benazepril HCl 5-20 [...] Refills(s) 0 Start Date: 06/11/19 Status: Ordered atorvastatin 80 mg oral tablet (20 sources) HMG-CoA Reductase Inhibitor Start: 08-14-2024 take 1 tablet by mouth once daily Atorvastatin 80 mg tablet Active 0 .ROUTE .COMPLEX August 14, 2024 8:25pm TAKE 1 TABLET BY MOUTH EVERY DAY Complies with 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 Start: 05-08-2023 End: 05-09-2023 take 80 mg by mouth once daily 80 mg, Oral, DAILY, [facility] dose on Mon05/08/23 at 2000, Until Discontinued Start: 10-11-2022 End: 10-11-2022 take 80 mg by mouth once daily 80 mg, Oral, DAILY, [facility] dose on Mon10/11/22 at 0900, Until Discontinued Start: 06-11-2019 End: 08-14-2024 take 1 tablet by mouth once daily Atorvastatin 80 mg tablet Discontinued 80 MG PO Daily January 12, 2024 1:00am August 14, 2024 8:26pm benazepril hydrochloride 10 mg oral tablet (3 sources) Angiotensin Converting Enzyme Inhibitor Start: 02-14-2025 take 1 tablet by mouth once daily Benazepril 10 mg tablet Active 10 MG PO Daily 90 February 14, 2025 12:00am Complies with 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 24 hr buPROPion hydrochloride 300 mg extended release oral tablet (20 sources) Aminoketone Start: 11-18-2024 take 1 tablet by mouth once daily Bupropion Hcl 300 mg tablet extended release 24 hr Active 300 MG PO Daily 90 90 November 18, 2024 6:28pm Complies with 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 Start: 08-19-2024 End: 11-18-2024 take 1 tablet by mouth once daily Bupropion Hcl 300 mg tablet extended release 24 hr Discontinued 0 .ROUTE .COMPLEX August 19, 2024 12:35pm November 18, 2024 6:29pm TAKE 1 TABLET BY MOUTH EVERY DAY Start: 05-14-2024 End: 07-23-2024 take 1 tablet by mouth once daily Bupropion Hcl 150 mg tablet extended release 24 hr Discontinued 0 .ROUTE .COMPLEX 90 May 14, 2024 6:28pm July 23, 2024 1:00pm TAKE 1 TABLET BY MOUTH DAILY 90 Start: 04-11-2024 take 1 tablet by adiel th once daily buPROPion 150 mg ER Tab 150 mg = 1 tab(s), Oral, Daily, Refills(s) 0 Start Date: 04/11/24 Status: Ordered Repeat number: 1 Start: 01-01-2024 End: 07-23-2024 take 1 tablet by mouth once daily Bupropion Hcl 300 mg tablet extended release 24 hr Discontinued 300 MG PO Daily January 12, 2024 1:00am July 23, 2024 10:49am Start: 01-01-2024 buPROPion 300 mg/24 hours ER [...] daily. 0 06/30/2022 Active Start: 12-01-2021 End: 04-18-2025 take 1 tablet by mouth once daily Bupropion Hcl 150 mg tablet extended release 24 hr Discontinued 150 MG PO Daily January 12, 2024 1:00am May 14, 2024 6:29pm Start: 11-09-2021 End: 10-11-2022 take 300 mg [...] 0 Refills: 0 Ordered: 17-Mar-2022 DO Active diazePAM 10 mg oral tablet (2 sources) Benzodiazepine Start: 05-06-2025 Valium 10 mg Tab 10 mg = 1 tab(s), Oral, Once, Take 1 hour prior to procedure. Have a jinrikisha driver., # 1 tab(s), Refills(s) 0, Pharmacy: [facility], 179, cm, 04/30/25 8:07:00 EDT, Height/Length Dosing, 82.9, kg, 04/30/25 8:07:00 EDT, Weight Dosing Start Date: 05/06/25 Status: Ordered Quantity: 1.0 Unit: tab(s) Repeat number: 1 docusate sodium 100 mg oral capsule (10 sources) Start: 10-10-2022 End: 05-09-2023 take 1 capsule by mouth twice daily Docusate 100 MG capsule Take 1 capsule by mouth 2 times daily. 60 capsule 0 05/08/2023 Active finasteride 5 mg oral tablet (20 sources) 5-alpha Reductase Inhibitor Start: 12-13-2023 End: 11-27-2025 take 1 tablet by mouth once daily Finasteride 5 mg tablet Active 5 MG PO Daily January 12, 2024 1:00am Complies with 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 Start: 05-08-2023 End: 05-09-2023 take 5 mg [...] Daily, # 90 tab(s), Refills(s) 3, Pharmacy: [facility], 179, cm, 12/03/21 9:55:00 EST, Height/Length [...] a day for 30 days May, Active levoFLOXacin 750 mg oral tablet (2 sources) Quinolone Antimicrobial Start: 04-22-2025 take 1 tablet by mouth once daily Levofloxacin 750 mg tablet Active 750 MG PO Daily April 22, 2025 12:00am Complies with 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 medicinal cannabis (MEDICINAL MARIJUANA) (6 sources) 24 hr metoprolol succinate 50 mg extended release oral tablet (20 sources) beta-Adrenergic Juvenal Start: 08-14-2024 take 1 tablet by mouth once daily Metoprolol Succinate 50 mg tablet extended release 24 hr Active 0 .ROUTE .COMPLEX 90 August 14, 2024 8:25pm TAKE 1 TABLET BY MOUTH EVERY DAY Complies with 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 Start: 10-10-2022 End: 10-11-2022 take 25 mg by mouth every twelve hours 25 mg, Oral, EVERY 12 HOURS, First dose on 10/10/22 at 2100, Until Discontinued Start: 06-11-2019 End: 08-14-2024 take 1 tablet by mouth once daily Metoprolol Succinate 50 mg tablet extended release 24 hr Discontinued 50 MG PO Daily January 12, 2024 1:00am August 14, 2024 8:26pm Misc. Devices (Raised Toilet Seat) Misc (6 sources) Start: 10-07-2022 naloxone hydrochloride 40 mg/ml nasal spray (2 sources) Opioid Antagonist Start: 05-08-2023 End: 05-08-2023 naloxone 4 MG/0.1ML 1 spray by Nasal route once for 1 dose. [place] into the nose as directed. Call 911. If no response in 2 minutes use a new nasal spray in other nostril. Repeat until help arrives. 1 Each 0 05/08/2023 Active ondansetron 4 mg disintegrating oral tablet (20 sources) Serotonin-3 Receptor Antagonist Start: 09-24-2024 End: 04-18-2025 ondansetron ODT (Zofran-ODT) 4 MG disintegrating tablet DISSOLVE 1 (ONE) TABLET ON THE TONGUE EVERY 8 HOURS FOR 5 DAYS 09/24/2024 04/18/2025 Discontinued (Therapy completed) Start: 01-12-2024 Ondansetron 4 mg tablet,disintegrating Active 4 MG TRANSLINGU Every 6 hours as needed January 12, 2024 1:00am Complies with 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 Start: 06-02-2023 take 1 tablet by adiel th every six hours as needed for nausea [...] needed ondansetron 4mg/2ml (ZOFRAN) injection 4 mg 24 hr oxybutynin chloride 10 mg extended release oral tablet (3 sources) Cholinergic Muscarinic Antagonist Start: 05-06-2025 take 1 tablet by mouth once daily oxybutynin 10 mg ER Tab 10 mg = 1 tab(s), Oral, Daily, # 7 tab(s), Refills(s) 0, Pharmacy: [facility], 179, cm, 04/30/25 8:07:00 EDT, Height/Length Dosing, 82.9, kg, 04/30/25 8:07:00 EDT, Weight Dosing Start Date: 05/06/25 Status: Ordered Quantity: 7.0 Unit: tab(s) Repeat number: 1 oxyCODONE hydrochloride 5 mg oral tablet (6 [...] tablet (20 sources) Proton Pump Inhibitor Start: 08-14-2024 End: 01-06-2025 take 1 tablet by mouth twice daily Pantoprazole 40 mg tablet,delayed release (DR/EC) Active 0 .ROUTE .COMPLEX 180 January 06, 2025 10:54pm TAKE 1 TABLET BY MOUTH TWICE DAILY Complies with 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 Start: 02-29-2024 End: 04-18-2025 take 1 tablet by mouth once daily Pantoprazole [address] Tab 40 mg = 1 tab(s), Oral, Daily, Refills(s) 0 Start Date: 04/11/24 Status: Ordered Repeat number: 1 Start: 01-12-2024 End: 08-14-2024 take 1 tablet by mouth twice daily Pantoprazole 40 mg tablet,delayed release (DR/EC) Discontinued 40 MG PO Twice daily January 12, 2024 1:00am August 14, 2024 8:26pm Start: 06-14-2023 take 1 tablet by adiel [...] therapy pack (2 sources) Start: 11-27-2023 Paxlovid (300/100) 20 x 150 MG & 10 x 100MG as directed Orally bid for 5 days Nov, Active tadalafil 20 mg oral tablet (10 sources) Phosphodiesterase 5 Inhibitor Start: 11-27-2024 take 1 tablet by mouth every hour Cialis 20 mg Tab 20 mg = 1 tab(s), Oral, As Directed, take 1hr prior to sexual activity. Do not exceed 20mg/24 hrs., # 30 tab(s), Refills(s) 3, Pharmacy: [facility], 165, cm, 06/27/24 13:17:00 EDT, Height/Length Dosing, 80.1, kg, 06/27/24 13:17:00 EDT, Weight Dosing Start Date: 11/27/24 Status: Ordered Quantity: 30.0 Unit: tab(s) Repeat number: 4 Start: 07-04-2023 Cialis 20 mg T ab 20 mg = 1 tab(s), Oral, As Directed, take 1-2hrs. prior to sexual activity, # 30 tab(s), Refills(s) 3, Pharmacy: [facility], 179, cm, 12/05/22 9:44:00 EST, Height/Length [...] oral capsule (20 sources) alpha-Adrenergic Juvenal Start: 01-12-2024 take 1 capsule by mouth every twenty-four hours in the morning tamsulosin (Flomax) 0.4 MG 24 hr capsule Take 0.4 mg by mouth in the morning and 0.4 mg before bedtime. 01/12/2024 Active Start: 01-12-2024 End: 02-16-2026 take 1 capsule by mouth twice daily Tamsulosin 0.4 mg capsule Active 0.4 MG PO Twice daily January 12, 2024 1:00am Complies with 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 Start: 12-05-2022 End: 11-30-2023 take 1 capsule by mouth twice daily tamsulosin 0.4 mg Cap 0.4 mg = 1 cap(s), Oral, BID, X 90 day(s), # 180 cap(s), Refills(s) 3, Pharmacy: [facility], 179, cm, 12/05/22 9:44:00 EST, Height/Length [...] tablet (20 sources) Serotonin Reuptake Inhibitor Start: 06-11-2025 End: 06-23-2025 take 1 tablet by mouth once daily at bedtime Trazodone 50 mg tablet Active 50 MG PO Daily at bedtime June 23, 2025 11:53am Complies with 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 Start: 09-12-2024 End: 06-11-2025 take 1 tablet by mouth once daily at bedtime as needed Trazodone 50 mg tablet Discontinued 0 .ROUTE .COMPLEX October 01, 2024 2:04pm June 11, 2025 5:49pm TAKE 1 TABLET BY MOUTH EVERY DAY AT BEDTIME NEEDED FOR INSOMNIA Start: 01-12-2024 End: 09-12-2024 take 1 tablet by mouth once daily at bedtime as needed Trazodone 50 mg tablet Discontinued 50 MG PO Daily at bedtime as needed for insomnia March 11, 2024 1:13pm September 12, 2024 8:41am Start: 09-08-2023 take 1 tablet by adiel th every twenty-four hours traZODone HCl 50 MG 1 tablet at bedtime as needed Orally Once a day for 30 days Aug, Active Start: 12-09-2021 End: 05-09-2023 take 1 tablet by mouth at bedtime traZODone 50 MG tablet Take 1 tablet [...] dose on Mon10/11/22 at 0900, Until Discontinued bisacodyl 10 mg rectal suppository (2 sources) [...] premix IVPB ciprofloxacin 500 mg oral tablet (5 sources) Quinolone Antimicrobial Start: 04-30-2025 Cipro 500 mg Tab 500 mg = 1 tab(s), Oral, As Directed, Take one tab the day before the procedure. Then take the 2nd tab after the procedure has been completed., # 2 tab(s), Refills(s) 0, Pharmacy: [facility], 179, cm, 04/30/25 8:07:00 EDT, Height/Length Dosing, 82.9, kg, 04/30/25 8:07:00 EDT, Weight Dosing Start Date: 04/30/25 Status: Ordered Quantity: 2.0 Unit: tab(s) Repeat number: 1 Start: 11-04-2021 Ciprofloxacin HCl - 500 MG [...] Active docusate sodium 50 mg / sennosides, fpc 8.6 mg oral tablet (2 sources) Start: 05-08-2023 End: 05-09-2023 senna-docusate (SENOKOT-S) 8 .6-50 MG per tablet 2 tablet Start: 10-10-2022 End: 10-11-2022 senna-docusate (SENOKOT-S) 8 .6-50 MG per tablet 2 tablet doxycycline hyclate 100 mg oral capsule (3 sources) Tetracycline-class Drug Start: 01-16-2024 End: 04-22-2025 take 1 capsule by mouth twice daily Doxycycline Hyclate 100 mg capsule Discontinued 100 MG PO Twice daily 14 January 16, 2024 1:00am April 22, 2025 2:19pm 1 ml HYDROmorphone hydrochloride 1 mg/ml cartridge [...] 09/23/2022 10/11/2022 Discontinued (Stop Taking at Discharge) omeprazole 40 mg delayed release oral capsule (20 sources) Proton Pump Inhibitor Start: 01-12-2024 End: 01-06-2025 take 1 capsule by mouth once daily Omeprazole 40 mg capsule,delayed release(DR/EC) Discontinued 40 MG PO Daily January 12, 2024 1:00am January 06, 2025 10:54pm Start: 05-08-2023 take 1 capsule by mo moh once daily omeprazole [address] [...] Ordered: 07-Dec-2021 DO Start : 07-Dec-2021 Complete Pantoprazole 40 mg tablet,delayed release (DR/EC) (2 sources) Start: 08-14-2024 End: 01-06-2025 take 1 tablet by mouth twice daily Pantoprazole 40 mg tablet,delayed release (DR/EC) Discontinued 0 .ROUTE .COMPLEX 180 August 14, 2024 8:25pm January 06, 2025 10:54pm TAKE 1 TABLET BY MOUTH TWICE DAILY PARoxetine hydrochloride 20 mg oral tablet (2 sources) Serotonin Reuptake Inhibitor Start: 12-15-2020 take 1 tablet by mouth once daily in the evening PARoxetine HCl - 20 MG Oral Tablet TAKE 1 TABLET BY MOUTH EVERY EVENING Quantity: 90 Refills: 0 Ordered: 08-Sep-2021 DO Start : 15-Dec-2020 Complete predniSONE 20 mg oral tablet (1 source) Start: 06-23-2025 End: 06-23-2025 Prednisone 20 mg tablet Discontinued 20 MG PO As Directed 16 9 June 23, 2025 12:00am June 23, 2025 11:49am 1 tab tid w/ food x 2 days, then bid w/ food x 3 days, then qd w/ food x 4 days 200 ml ropivacaine hydrochloride 2 mg/ml injection [...] gangrene] Onset: 9 06-18-2019 Episodic Abdominal pain (20 sources) Periumbilical pain; 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: [Periumbilical pain] Onset: 9 Episodic Acute bronchitis (13 sources) Acute bronchitis; 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: [Acute bronchitis due to other specified organisms] Episodic Cardiac dysrhythmias (5 sources) Bradycardia, unspecified; 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: [Bradycardia] Onset: 5 Episodic Coronary atherosclerosis and other heart disease (20 sources) Coronary arteriosclerosis; 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: [Atherosclerotic heart disease of [place] coronary artery without angina pectoris] Onset: 2 Chronic Comment on above: PTCA LAD - 2007 PTCA LAD - 2007, LHC w/ mild CAD - 2009 Deficiency and other anemia (20 sources) Anemia; 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: [Anemia, unspecified] Episodic Disorders of lipid metabolism (20 sources) Pure hypercholesterolemia; 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: [Pure hypercholesterolemia, unspecified] Onset: 2 Chronic Diverticulosis and diverticulitis (11 sources) Diverticular disease; 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: [Diverticulosis of intestine, part unspecified, without perforation or abscess without bleeding] Onset: 5 04-11-2024 Chronic Esophageal disorders (20 sources) Gastroesophageal reflux disease; 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: [Gastro-esophageal reflux disease without esophagitis] Onset: 5 Chronic Essential hypertension (20 sources) Benign hypertension; 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: [Hypertensive disorder] Onset: 5 06-18-2019 Chronic Comment on above: Carotid US: < 50% B/ L - 05/2023 Genitourinary symptoms and ill-defined conditions (20 sources) Blood in urine; 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: [Microscopic hematuria] Onset: 4 06-23-2019 Episodic Hyperplasia of prostate (20 sources) Benign prostatic hypertrophy with outflow obstruction; 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: [Benign prostatic hyperplasia with lower urinary tract symptoms] Onset: 3 Chronic Immunizations and screening for infectious disease (13 sources) Vaccination given; 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: [Encounter for immunization] Episodic Joint disorders and dislocations; trauma-related (3 sources) Derangement of right knee; 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: [Unspecified internal derangement of right knee] Onset: 5 04-16-2025 Chronic Joint disorders and dislocations; trauma-related (13 sources) Unspecified tear of unspecified meniscus, current injury, right knee, initial encounter; 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: [Unspecified tear of unspecified meniscus, current injury, right knee, initial encounter] Episodic Mood disorders (20 sources) Recurrent major depression in full remission; 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: [Major depressive disorder, recurrent, in full remission] Onset: 5 Chronic Nausea and vomiting (1 source) Nausea Episodic Nonspecific chest pain (5 sources) Chest pain; 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: [Chest pain, unspecified] 02-14-2025 Episodic Osteoarthritis (20 sources) Osteoarthritis of left hip joint; 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: [Unilateral primary osteoarthritis, left hip] Onset: 2 Chronic Other aftercare (20 sources) H/O: high risk medication; 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: [Other residential (current) 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] Episodic Other aftercare (12 sources) Long-term current use of 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; 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: [Other residential (current) 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] Episodic Other aftercare (1 source) Other residential (current) 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; Translations: [Other residential (current) 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] Episodic Other and ill-defined heart disease (13 sources) Heart disease; Translations: [Heart disease, unspecified] Onset: 5 06-23-2019 Chronic Other and unspecified benign neoplasm (11 sources) Lipoma of spermatic cord; Translations: [Benign [...] Episodic Other ear and sense organ disorders (5 sources) Mixed conductive AND sensorineural hearing loss; Translations: [Mixed hearing loss, unilateral] Onset: 5 04-16-2025 Chronic Other ear and sense organ disorders [...] Chronic Other ear and sense organ disorders (8 sources) Hearing loss 04-11-2024 Chronic Other ear and sense organ disorders (2 sources) Hearing loss of left ear; Translations: [Other specified hearing loss, left ear] 04-18-2025 Chronic Other ear and sense organ disorders (3 sources) Bilateral tinnitus; Translations: [Tinnitus, bilateral] Onset: 5 04-16-2025 Episodic Other ear and sense organ disorders (2 sources) Impacted cerumen of bilateral ears; Translations: [Impacted cerumen, bilateral] 04-18-2025 Episodic Other endocrine disorders (3 sources) Testicular hypofunction; Translations: [Testicular hypofunction] Onset: 3 Chronic Other endocrine disorders (13 sources) Male hypogonadism; Translations: [Testicular hypofunction] Onset: 3 12-18-2020 Chronic Other endocrine disorders (1 source) [...] Other hereditary and degenerative nervous system conditions (20 sources) Restless legs; Translations: [Restless legs syndrome] Onset: 5 04-11-2024 Chronic Other hereditary and degenerative nervous [...] serum enzymes] Episodic Other male genital disorders (19 sources) Male erectile dysfunction, unspecified; Translations: [Erectile dysfunction] Onset: 3 Chronic Other male genital disorders (2 sources) H/O: male genital disorder; Translations: [Personal history of other genital system and obstetric disorders] Episodic Other male genital disorders (13 sources) Retrograde ejaculation; Translations: [Retrograde ejaculation] Onset: 3 06-05-2020 Episodic Other nervous system disorders (4 sources) H/O: respiratory disease; Translations: [Personal history of other specified diseases] Episodic Other nervous system disorders (3 sources) Other acute postprocedural pain; Translations: [Pain in joint, lower leg] Onset: 3 05-08-2023 Episodic Other non-traumatic joint disorders (2 sources) Hip pain; Translations: [Pain in left hip] Episodic Other non-traumatic joint disorders (4 sources) Pain in right knee; Translations: [Pain in joint, lower leg] Onset: 5 Episodic Other non-traumatic joint disorders (7 sources) [...] Chronic Other nutritional; endocrine; and metabolic disorders (3 sources) Obesity; Translations: [Obesity, unspecified] Onset: 3 04-16-2025 Chronic Other nutritional; endocrine; and metabolic disorders (20 sources) Overweight; Translations: [Overweight] Onset: 5 06-27-2024 Episodic Other nutritional; endocrine; and metabolic disorders (1 source) Overweight; Translations: [Overweight] Episodic Other nutritional; endocrine; and metabolic disorders (10 sources) Overweight in adulthood with body mass index of 25 or more but less than 30; Translations: [Body mass index (BMI) 29.0-29.9, adult] Onset: 5 06-27-2024 Episodic Other screening for suspected conditions (not mental disorders or infectious disease) (20 sources) Raised prostate specific antigen; Translations: [Elevated prostate specific antigen [PSA]] Onset: 3 Episodic Comment on above: PSA: 0.81 - 11/2024 Other upper respiratory disease (20 sources) Seasonal allergic rhinitis; Translations: [Other seasonal allergic rhinitis] Onset: 7 04-11-2024 Chronic Other upper respiratory disease (1 source) Other seasonal allergic rhinitis; Translations: [Other seasonal allergic rhinitis] Onset: 7 Chronic Residual codes; unclassified (20 sources) Obstructive sleep apnea syndrome; Translations: [Obstructive sleep apnea (adult) (pediatric)] Onset: 5 04-11-2024 Chronic Residual codes; unclassified (1 source) [...] of mental health and substance abuse codes (20 sources) Ex-smoker; Translations: [History of tobacco use] Onset: 9 06-23-2019 Episodic Spondylosis; intervertebral disc disorders; other back problems (20 sources) Spondylosis without myelopathy or radiculopathy, lumbar region; Translations: [Other intervertebral disc degeneration, lumbar region] Onset: 6 Chronic Substance-related disorders (7 sources) Nicotine dependence; Translations: [Nicotine dependence, unspecified, uncomplicated] Onset: 5 04-06-2024 Chronic Comment on above: Age started, PPD, ag e quit Unclassified (2 sources) Drug therapy finding 06-23-2019 [...] with and (suspected) exposure to COVID-19] Unclassified (8 sources) Patient encounter status 04-23-2024 Past or [...] [Melena] Resolved: 06-15-2022 Episodic Malaise and fatigue (16 sources) Malaise and fatigue; Translations: [Other malaise and fatigue] Onset: 11-28-2013 04-16-2025 Episodic Mycoses (13 sources) Onychomycosis due to dermatophyte ; Translations: [Tinea unguium] Resolved: 06-15-2022 Episodic Other aftercare (3 sources) Drug therapy finding; 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: [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] Onset: 04-10-2023 04-16-2025 Episodic Other connective tissue disease (12 sources) [...] [Acute maxillary sinusitis, unspecified] Onset: 08-08-2017 Episodic Otitis media and related conditions (18 sources) Otosclerosis; Translations: [Otosclerosis, unspecified] Onset: 04-10-2023 04-16-2025 Episodic Spondylosis; intervertebral disc disorders; other back problems (20 sources) Low back pain; Translations: [Low back [...] Reference Range Facility Ambulatory Visit Summaryon 0 06-18-2025 Ambulatory Visit Summary Ambulatory Visit Summary SETH BELL :1955 Visit Date:06/18/2025 Ambulatory Visit Instructions Your Diagnosis BPH with obstruction/lower urinary tract symptoms Elevated PSA Your Care Team Attending Physician - SHAUN SHEETS, Ailyn Dee Primary Care Physician - STEVAN GALDAMEZ DO This Is Your Medications List finasteride (finasteride 5 mg Tab) tadalafil (Cialis 20 mg Tab) tamsulosin (tamsulosin 0.4 mg Cap) Contact prescribing physician if questions or concerns Misc Prescription (22 gauge needle) Misc Prescription (3mL syringe) amlodipine-benazepril (amLODIPine-benazepril 5 mg-20 mg Cap) atorvastatin (Lipitor 80 mg Tab) buPROPion (buPROPion 150 mg ER Tab) buPROPion (buPROPion 300 mg/24 hours ER Tab) metoprolol (Toprol XL 50 mg Tab-ER) oxybutynin (oxybutynin 10 mg ER Tab) pantoprazole (Pantoprazole [address] Tab) trazodone (traZODONE 50 mg Tab) Procedures Performed Transurethral water vapor ablation of prostate (05/27/2025), Cystoscopy (05/01/2025), Hernia repair (09/24/2024), Colonoscopy (05/29/2024), Arthroplasty of knee (04/2023), Arthroplasty of the hip (2021), MRI-US fusion guided prostate biopsy (11/09/2021), Cystoscopy (09/18/2014), Colonoscopy (2013), Arthroscopy of knee, Cardiac catheterisation, combined right and left heart, EGD - esophagogastroduodenoscopy, Hemorrhoidectomy, Insertion of coronary artery stent, neck surgery, Repair of umbilical hernia, Vasectomy. Discharge Vitals Heart Rate (Peripheral) 60 Respiratory Rate 16 Blood Pressure 110/82 Height 179 cm Height 70 in Weight 80.8 kg Weight 178.133 lb BMI 25.22 What to do next Scheduled Follow-Up Appointments Monday2025 8:30 AM EST With: Ailyn DUNN MD Where: [facility] [address] [facility] [place] [address]- You Need to Schedule the Following Appointments Follow Up with Ailyn DUNN MD, URL When: Where: [facility] [address], [facility] [place] [address] [phone] Medications What How Much When Instructions Unchanged finasteride (finasteride 5 mg Tab) 1 Tablets By Mouth Every day Duration: 90 Days Unchanged tadalafil (Cialis 20 mg Tab) 1 Tablets By Mouth As Directed take 1hr prior to sexual activity. Do not exceed 20mg/ 24 hrs. Unchanged tamsulosin (tamsulosin 0.4 mg Cap) 1 Capsules By Mouth 2 times a day Duration: 90 Days Unchanged amlodipine-benazepril (amLODIPine-benazepril 5 mg-20 mg Cap) [...] prescribing physician if questions or concerns Unchanged oxybutynin (oxybutynin 10 mg ER Tab) 1 Tablets By Mouth [...] are currently receiving treatment for. BMI 29.0-29.9,adult BPH with obstruction/lower urinary tract symptoms Coronary atherosclerosis Depression Diverticulosis Elevated PSA Erectile dysfunction Familial hypercholesterolemia Former smoker GERD (gastroesophageal reflux disease) Hearing loss Heart disease Hematuria Hypercholesterolemia Hyperlipidemia Hypertension Hypogonadism male Incomplete bladder emptying Lipoma of spermatic cord Lumbar radiculopathy Lumbar [...] stent Patient Survey You may receive a surv (more content not included)... Normal [facility] Urology Office/Clinic Noteon 06-18-2025 Urology Office/Clinic Note Urology Office/Clinic Note Chief Complaint PO Rezum HPI Staff PO Rezum 05/27/25 w/PVR Previous DX: elevated PSA, BPH with urinary obstruction, hypogonadism and ED. *Finasteride 5mg qd and Tamsulosin 0.4mg BID Denies pain or burning, yes some visible blood PVR 48cc History of Present Illness Tests reviewed: reviewed UA, PVR, op note I have reviewed the previous health record [...] HPI. Physical Exam Vitals & Measurements HR: 60(Peripheral) RR: 16 BP: 110/82 HT: 70 in HT: 179 cm WT: 178.133 lb WT: 80.8 kg BMI: 25.22 General Appearance: alert, no distress, well nourished, well developed male. Assessment/Plan 1. BPH with obstruction/lower urinary tract symptoms (N40.1: Benign prostatic hyperplasia with lower urinary tract symptoms) S/p Cysto 05/01/25 - Bilobar obstruction, fairly long obstructing lateral lobes. Thick bladder trabeculations with open diverticuli diffusely. S/p Rezum 05/27/25 (12 tx). PVR (cc): 04/30/25 - 85 06/18/24 - 48 UA today shows large blood and trace leuks, expected PO. States he had significant discomfort during the procedure but was more bothered in having a catheter after (had burning). IPSS 8 (11), QoL 2 (5). Taking Finasteride 5mg qd and Tamsulosin 0.4mg bid. Stream is especially good when he drinks a lot of water. Does not feel overall urination has improved yet. Discussed max efficacy of procedure is 3-4 mos. Advised pt sxs with continue to improve with time and healing. -Cont Finasteride and Tamsulosin wo changes. Can consider weaning off of this at f/u. -F/u in 4 mos 2. Elevated PSA (R97.20: Elevated prostate specific antigen [PSA]) PSA: 04/21/20 - 0.62 09/17/21 - 1.85 (3.70 Finasteride) 12/06/22 - 0.62 (1.24 Finasteride) 12/28/23 - 0.83 (1.66 Finasteride) 12/19/24 - 0.81 (1.62 Finasteride) Prostate MRI 10/19/21 - PI-RADS 4. Fusion bx 11/09/21 - Neg. ELENA 01/01/24: ~40g, benign. -PSA due Dec 2025 Follow-up With When Contact Information SHAUN SHEETS, Ailyn Dee, URL [facility] [address] [place] [address]- [phone] Additional Instructions: 4 mos Patient Education Transurethral Vaporization of Prostate, Care After I, Pamela Quezada, personally scribed for Dr. Dunn on 06/18/2025 09:55:25. . Documentation recorded by the scribe, Pamela Quezada, accurately reflects the services(s) I performed and decisions made by me. Authenticated by Dr. Dunn on 06/18/2025 09:57:49. Problem List/Past Medical History Ongoing BMI 29.0-29.9,adult BPH with obstruction/lower urinary tract symptoms Coronary atherosclerosis Depression Diverticulosis Elevated PSA Erectile dysfunction Familial hypercholesterolemia Former smoker GERD (gastroesophageal reflux disease) Hearing loss Heart disease Hematuria Hypercholesterolemia Hyperlipidemia Hypertension Hypogonadism male Incomplete bladder emptying Lipoma of spermatic cord Lumbar radiculopathy Lumbar spondylosis Microscopic hematuria Nocturia CYNTHIA (obstructive sleep apnea) Overweight Proteinuria Retrograde ejaculation Right groin pain RLS (restless legs syndrome) Screening for malignant neoplasm of colon Seasonal allergic rhinitis Umbilical hernia Historical Benign hypertension BPH - benign prostatic hyperplasia Placement of stent Procedure/Surgical History Transurethral water vapor ablation of prostate (05/27/2025), Cystoscopy (05/01/2025), Hernia repair (09/24/2024), Colonoscopy (05/29/2024), Arthroplasty of knee (04/2023), Arthroplasty of the hip (2021), MRI-US fusion guided prostate biopsy (11/09/2021), Cystoscopy (09/18/2014), Colonoscopy (2013), Arthroscopy of knee, Cardiac catheterisation, combined right and left heart, EGD - esophagogastroduodenoscopy, Hemorrhoidectomy, Insertion of coronary artery stent, neck surgery, Repair of umbilical hernia, Vasectomy. [...] As Directed, 3 refills finasteride 5 mg T (more content not included)... Normal [facility] Comment on above: Result Comment: Elec tronically Signed By: Ailyn DUNN MD\.br\Date and Time Signed: 06/18/25 09:57 EDT\.br\Electronically Co-Signed By: Pamela Quezada\.br\Date and Time Co-Signed: 06/18/25 09:55 EDT Ambulatory Visit Summaryon 0 06-03-2025 Ambulatory Visit Summary Ambulatory Visit Summary SETH BELL :1955 Visit Date:06/03/2025 Ambulatory Visit Instructions Your Care Team Attending Physician - Ailyn DUNN MD Primary Care Physician - STEVAN GALDAMEZ DO This Is Your Medications List Misc Prescription (22 gauge needle) Misc Prescription (3mL syringe) acetaminophen-hydrocodone ([place] 325 mg-7.5 mg oral tablet) acetaminophen-tramadol (Ultracet 325 mg-37.5 mg Tab) amlodipine-benazepril (amLODIPine-benazepril 5 mg-20 mg Cap) atorvastatin (Lipitor 80 mg Tab) buPROPion (buPROPion 150 mg ER Tab) buPROPion (buPROPion 300 mg/24 hours ER Tab) ciprofloxacin (Cipro 500 mg Tab) diazepam (Valium 10 mg Tab) finasteride (finasteride 5 mg Tab) metoprolol (Toprol XL 50 mg Tab-ER) oxybutynin (oxybutynin 10 mg ER Tab) pantoprazole (Pantoprazole [address] Tab) tadalafil (Cialis 20 mg Tab) tamsulosin (tamsulosin 0.4 mg Cap) trazodone (traZODONE 50 mg Tab) Procedures Performed Hernia repair (09/24/2024), Colonoscopy (05/29/2024), Arthroplasty of knee (04/2023), Arthroplasty of the hip (2021), MRI-US fusion guided prostate biopsy (11/09/2021), Cystoscopy (09/18/2014), Colonoscopy (2013), Arthroscopy of knee, Cardiac catheterisation, combined right and left heart, EGD - esophagogastroduodenoscopy, Hemorrhoidectomy, Insertion of coronary artery stent, neck surgery, Repair of umbilical hernia, Vasectomy. What to do next Scheduled Follow-Up Appointments Monday 8:45 AM EDT With: Ailyn DUNN MD Where: [facility] [address] [place] [address] Monday2025 8:30 AM EST With: Ailyn DUNN MD Where: [facility] [address] [place] [address] [place] [address]- Medications What How Much When Instructions Unchanged acetaminophen-hydrocodone ([place] 325 mg-7.5 mg oral tablet) 1 Tablets By Mouth Once Take 1 hour prior to procedure Unchanged acetaminophen-tramadol (Ultracet 325 mg-37.5 mg Tab) 1 Tablets By Mouth Every 12 hours For after the procedure Unchanged amlodipine-benazepril (amLODIPine-benazepril 5 mg-20 mg Cap) 1 Capsules By Mouth Every day Unchanged atorvastatin (Lipitor 80 mg Tab) 1 Tablets By Mouth Every day Unchanged buPROPion (buPROPion 150 mg ER Tab) 1 Tablets By Mouth Every day Unchanged buPROPion (buPROPion 300 mg/ 24 hours ER Tab) 1 Tablets By Mouth Every day Unchanged ciprofloxacin (Cipro 500 mg Tab) 1 Tablets By Mouth As Directed Take one tab the day before the procedure. Then take the 2nd tab after the procedure has been completed. Unchanged diazepam (Valium 10 mg Tab) 1 Tablets By Mouth Once Take 1 hour prior to procedure. 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 Unchanged finasteride (finasteride 5 mg Tab) 1 Tablets By Mouth Every day Duration: 90 Days Unchanged metoprolol (Toprol XL 50 mg Tab-ER) 1 Tablets By Mouth Every day Unchanged Misc Prescription (22 gauge needle) See instructions Use 2 needles per month, one to draw up and one for injection Unchanged Misc Prescription (3mL syringe) See instructions Use 1 syringe each month Unchanged oxybutynin (oxybutynin 10 mg ER Tab) 1 Tablets By Mouth Every day Unchanged pantoprazole (Pantoprazole [address] Tab) 1 Tablets By Mouth Every day Unchanged tadalafil (Cialis 20 mg Tab) 1 Tablets By Mouth As Directed take 1hr prior to sexual activity. Do not exceed 20mg/ 24 hrs. Unchanged tamsulosin (tamsulosin 0.4 mg Cap) 1 Capsules By Mouth 2 times a day Duration: 90 Days Unchanged trazodone (traZODONE 50 mg Tab) 1 Tablets By Mouth Once a day (at bedtime) Allergies No Known Allergies No Known Medication Allergies Problems Ongoing - Any problem that you are currently receiving treatment for. BMI 29.0-29.9,adult BPH with obstruction/lower urinary tract symptoms Coronary atherosclerosis Depression Diverticulosis Elevated PSA Erectile dysfunction Familial hypercholesterolemia Former smoker GERD (gastroesophageal reflux disease) Hearing loss Heart disease Hematuria Hypercholesterolemia Hyperlipidemia Hypertension Hypogonadism male Incomplete bladder emptying Lipoma of spermatic cord Lumbar radiculopathy Lumbar [...] you for choosing us for your care. Patient Portal You may access all of your (more content not included)... Normal [facility] H&P Updateon 05-27-2025 H&P Update H&P Update Patient: SETH BELL Age: 69 years Sex: Male : 1955 Associated Diagnoses: None Author: SHAUN SHEETS, Ailyn Dee Basic Information Pre-Op Diagnosis: BPH with obstruction Proposed Surgery: Cystoscopy with Rezum I have reviewed the History and Physical and examined the patient for changes. Based upon my assessment, the patient may proceed with the planned procedure. Health Status Procedure history: Hernia repair ([id number]) on 09/24/2024 at 68 Years. Colonoscopy ([id number]) on 05/29/2024 at 68 Years. Arthroplasty of knee right ([id number]) in the month of 04/2023 at 67 Years. Arthroplasty of the hip ([id number]) in 2021 at 67 Years. MRI-US fusion guided prostate biopsy ([id number]) on 11/09/2021 at 66 Years. Colonoscopy ([id number]) in 2013 at 59 Years. Cystoscopy ([id number]) on 09/18/2014 at 58 Years. Cardiac catheterisation, combined right and left heart ([id number]). Comments: 06/18/2019 8:32 MOISE - Manuelito Monteiro stent placement Vasectomy ([id number]). Hemorrhoidectomy ([id number]). Lumbar discectomy (634053417). neck surgery. Arthroscopy of knee ([id number]). Insertion of coronary artery stent ([id number]). EGD - esophagogastroduodenoscopy ([id number]). Repair of umbilical hernia ([id number]). Social History Social & Psychosocial Habits Alcohol 04/30/2025 Use: Current Frequency: 1-2 times per week 04/30/2025 Use: Past Substance Abuse 04/30/2025 Use: Current Type: Marijuana Frequency: Daily Tobacco 04/30/2025 Tobacco Use: Former smoker, quit more Smokeless tobacco use: Never Type: Cigarettes Tobacco use per day: 1 Started at age: 19.0 Years Stopped at age: 22 Years . Allergies: Allergic Reactions (Selected) No Known Allergies No Known Medication Allergies, Allergies (2) Active Severity Reaction No Known Allergies None Documented No Known Medication Allergies None Documented Current medications: (Selected) Prescriptions Prescribed 22 gauge needle: 22 gauge needle, See Instructions, 12 EA, 1, Use 2 needles per month, one to draw up and one for injection, [id number], Supply, 179, cm, 06/05/20 11:23:00 EDT, Height/Length Measured, 88, kg, 06/05/20 11:23:00 EDT, Weight Measured 3mL syringe: 3mL syringe, See Instructions, 6 EA, 1, Use 1 syringe each month, [id number], Supply, 179, cm, 06/05/20 11:23:00 EDT, Height/Length Measured, 88, kg, 06/05/20 11:23:00 EDT, Weight Measured Cialis 20 mg Tab: 20 mg = 1 tab(s), Oral, As Directed, take 1hr prior to sexual activity. Do not exceed 20mg/24 hrs., # 30 tab(s), Refills(s) 3, Pharmacy: [facility], 165, cm, 06/27/24 13:17:00 EDT, Height/Length Dosing, 80.1, kg, 06/27/24 13:17:00 EDT,... Cipro 500 mg Tab: 500 mg = 1 tab(s), Oral, As Directed, Take one tab the day before the procedure. Then take the 2nd tab after the procedure has been completed., # 2 tab(s), Refills(s) 0, Pharmacy: [facility], 179, cm, 04/30/25 8:07:00 EDT, Height/Lengt... [place] 325 mg-7.5 mg oral tablet: 1 tab(s), Oral, Once, 1 tab(s), Refill(s) 0, Take 1 hour prior to procedure, [facility], 179, cm, 04/30/25 8:07:00 EDT, Height/Length Dosing, 82.9, kg, 04/30/25 8:07:00 EDT, Weight Dosing Ultracet 325 mg-37.5 mg Tab: 1 tab(s), Oral, q12hr, 20 tab(s), Refill(s) 0, For after the procedure, [facility], 179, cm, 04/30/25 8:07:00 EDT, Height/Length Dosing, 82.9, kg, 04/30/25 8:07:00 EDT, Weight Dosing Valium 10 mg Tab: 10 mg = 1 tab(s), Oral, Once, Take 1 hour prior to procedure. Have a jinrikisha driver., # 1 tab(s), Refills(s) 0, Pharmacy: [facility], 179, cm, 04/30/25 8:07:00 EDT, Height/Length Dosing, 82.9, kg, 04/30/25 8:07:00 EDT, Weight Dosing finasteride 5 mg Tab: 5 mg = 1 tab(s), Oral, Daily, X 90 day(s), # 90 tab(s), Refills(s) 3, Pharmacy: [facility], 165, cm, 06/27/24 13:17:00 EDT, Height/Length Dosing, 80.1, kg, 06/27/24 13:17:00 EDT, Weight Dosing oxybutynin 10 mg ER Tab: 10 mg = 1 tab(s), Oral, Daily, # 7 tab(s), Refills(s) 0, Pharmacy: [facility], 179, cm, 04/30/25 8:07:00 EDT, Height/Length Dosing, 82.9, kg, 04/30/25 8:07:00 EDT, Weight Dosing tamsulosin 0.4 mg Cap: 0.4 mg = 1 cap(s), Oral, BID, X 90 day(s), # 180 cap(s), Refills(s) 3, Pharmacy: [facility], 179, cm, 12/23/24 14:30:00 EST, Height/Length Dosing, 86.5, kg, 12/23/24 14:30:00 EST, Weight Dosing Documented Medications Documented Lipitor 80 mg Tab: 80 mg = 1 tab(s), Oral, Daily, Refills(s) [address] Tab: 40 mg = 1 tab(s), Oral, Daily, Refills(s) 0 Toprol XL 50 mg Tab-ER: 50 mg = 1 tab(s), Oral, Daily, Refills(s) 0 amLODIPine-benazepril 5 mg-20 mg Cap: 1 cap(s), Oral, Daily, Refill(s) 0 buPROPion 150 mg ER Tab: 150 mg = 1 tab(s), Oral, Daily, Refills(s) 0 buPROPion 300 mg/24 hours ER Tab: 300 mg = 1 tab(s), Oral, Daily, Refills(s) 0 traZODONE 50 mg Tab: 50 mg = 1 tab(s), Oral, Once a day (at bedti (more content not included)... Normal [facility] Comment on above: Result Comment: Elec tronically Signed By: Ailyn DUNN MD\.br\Date and Time Signed: 05/27/25 07:59 EDT Main OR Intraoperative Recor don 05-27-2025 Main OR Intraoperative Record Main OR Intraoperative Record IntraOp Document Type FTURO Summary Primary Physician: Ailyn DUNN MD Finalized Date/Time: 05/27/25 10:30:01 Pt. Name: SETH BELL/Sex: 1955 Male Med Rec #: [id number] Physician: Ailyn DUNN MD Financial #: [id number] Pt. Type: O Room/Bed: / Admit/Disch: 05/27/25 09:11:56 - Institution: Case Times FTURO Entry 1 Patient Times In Room 05/27/25 10:03:00 Out Room 05/27/25 10:29:00 Procedure Times Start 05/27/25 10:07:00 Stop 05/27/25 10:24:00 Anesthesia Times Last Modified By: Pal Reddy Ii 05/27/25 10:29:57 Case Attendance FTURO Entry 1 Entry 2 Entry 3 Case Attendee SHAUN SHEETS, Ailyn Cardenas CERTIFIED MEDICATION TECHNICIAN, Pal Clark Ii Role Performed Surgeon - Primary Scrub - Primary Copy Manager - Primary Time In 05/27/25 10:03:00 05/27/25 10:03:00 05/27/25 10:03:00 Time Out 05/27/25 10:29:00 05/27/25 10:29:00 05/27/25 10:29:00 Procedure CYSTOSCOPY LOCAL CYSTOSCOPY LOCAL CYSTOSCOPY LOCAL REZUM(.) REZUM(.) REZUM(.) Comments Last Modified By: Pal Reddy Ii, Alfons Ii F Letrondo, Alfons Ii F 05/27/25 10:29:58 05/27/25 10:29:58 05/27/25 10:29:58 Surgical Procedures FTURO Entry 1 Procedure Description Procedure CYSTOSCOPY LOCAL REZUM Modifiers . Surgeon Description CYSTO REZUM Primary Procedure Yes Primary Surgeon SHAUN SHEETS, Ailyn Dee Start 05/27/25 10:07:00 Stop 05/27/25 10:24:00 Anesthesia Type Local Surgical Service Urology Wound Class 2 - Clean-Contaminated Last Modified By: Pal Reddy Ii 05/27/25 10:24:32 General Case Data FTURO Pre-Care Text: Classifies surgical wound, implements aseptic technique, initiates traffic control Entry 1 Case Information OR URO 1 FT Case Level None Wound Class 2 - Clean-Contaminated Specialty Urology Preop Diagnosis BPH WITH OBSTRUCTION Postop Same As Preop Yes Postop Diagnosis BPH WITH OBSTRUCTION Outcomes Met? Yes Last Modified By: Pal Reddy Ii 05/27/25 10:03:15 Post-Care Text: The patient is free from signs and symptoms of infection EU IntraOp - FTURO Pre-Care Text: Implements protective measures prior to operative or invasive procedure, confirms identity before the operative or invasive procedure, verifies operative procedure, surgical site, and laterality Entry 1 EU Perioperative Protocols Procedure(s) CYSTOSCOPY LOCAL Patient Identity Birthday, ID Band REZUM(.) Verified (select at Check, Patient least 2): Participation Consents / H and P H&P, Surgery/Procedure Operative Site N/A Verified Consent Marking Verified Surgical Site Yes Laterality Verified n/a Verified Procedure Verified Yes Correct Patient Yes Position Verified Availability Equipment, Medication Time Out Ailyn DUNN MD, Verified (If Participants Ronald MARTIN, [place] Applicable) Barry Keith Alfons Ii F Time Out Complete 05/27/25 10:04:00 Allergies Reviewed? Yes Allergies Reviewed Self/Patient With Body Position Low Lithotomy Prep Area PERINEUM Prep Agents Betadine Solution Skin. Condition Intact, [place], Warm, & Description UNCHANGED Dry Additional None Specimens Collected Vitals - EU Blood Pressure 130/80 Pulse 50 bpm Respirations 18 br/min SPO2 96 % I&O - EU Outcomes Met? Yes Last Modified By: Pal Reddy Ii 05/27/25 10:07:26 Post-Care Text: The patient is free from signs and symptoms of injury caused by extraneous objects Sign Out FTURO Entry 1 Before Patient Leaves OR Nurse verbally Yes Nurse verbally Yes confirms with the confirms with the team the name of team that the procedure(s) instrument, sponge, recorded and needle counts are correct (or N/A) Nurse verbally n/a Nurse verbally Yes confirms with the confirms with the team how the team whether there specimen is labeled are any equipment (including patient problems to be name), if applicable addressed Sign Out Complete 05/27/25 10:24:00 Last Modified By: Pal Reddy Ii 05/27/25 10:24:32 Case Comments Finalized By: Pal Reddy Ii Document Signatures Signed By: Pal Reddy Ii 05/27/25 10:30 Normal [facility] Main OR Preoperative Recordo n 05-27-2025 Main OR Preoperative Record Main OR Preoperative Record Holding Area Document Type FTURO Summary Primary Physician: Ailyn DUNN MD Finalized Date/Time: 05/27/25 09:38:41 Pt. Name: ARABELLASETH DELEON Darya Norton./Sex: 1955 Male Med Rec #: [id number] Physician: Ailyn DUNN MD Financial #: [id number] Pt. Type: O Room/Bed: / Admit/Disch: 05/27/25 09:11:56 - Institution: Case Times Holding FTURO Pre-Care Text: Verifies consent for planned procedure, identifies individual values and wishes concerning care, includes family members in perioperative teaching Secures patient's records' belongings, and valuables, maintains patient's dignity and privacy, and maintains patient confidentiality Entry 1 In Holding 05/27/25 09:37:00 Outcomes Met? Yes Last Modified By: CORTES Garza RN, Ruthann 05/27/25 09:37:06 Post-Care Text: The patient participates in decisions affecting his or her perioperative plan of care The patient's right to privacy is maintained Surgery Checklist FTURO Entry 1 Patient Birthday, ID Band Procedure History and Physical, Identification: Check, Patient Verification: Surgical Consent, With Participation Patient NPO after Midnight: n/a Personal Items: Dentures Personal Items clothes Limitations: none Comment: Complaints of Pain: No Skin Integrity Unable to Visualize Vitals - EU Blood Pressure 130/80 Pulse 53 bpm Respirations 18 br/min SPO2 98 % Additional None RN Reviewed Yes Specimens Collected Last Modified By: CORTES Garza RN, Ruthann 05/27/25 09:38:38 Finalized By: CORTES Garza RN, Ruthann Document Signatures Signed By: CORTES Garza RN, Ruthann 05/27/25 09:38 Normal [facility] Operative Reporton Operative Report Operative Report Patient: SETH BELL Age: 69 years Sex: Male : 1955 Associated Diagnoses: None Author: Ailyn DUNN MD Procedure Operative Information Details: Date/ Time: 05/27/2025 10:28:00. Pre-Op Dx: BPH w/ LUTS - N40.1. Post-Op Dx: Same. Anesthesia Type: Local. Procedure: REZUM ablation of the prostate. Complications: None. Risks/Benefits/Informed Consent: Surgical risks, benefits, details of the procedure have been explained to the patient, Full informed consent has been obtained. Indications: The patient has BPH with LUTS and presents for the REZUM trans-urethral water vapor ablation of the prostate, He understands the risks, benefits, details of this procedure including but not limited to bleeding, infection, continued difficulties urinating, blood in the semen, pain during urination, increased urinary frequency, Despite these risks, among others, he wishes to proceed. Intraoperative Information Prepped: The patient is brought back to the operative suite, The patient is placed in the supine position, 10 cc of 2% viscous Xylocaine jelly prior to the catheterization, The bladder is catheterized with a 16 Fr straight catheter, 60 cc of 1% xylocaine solution is instilled followed by 10 cc of 2% viscous Xylocaine jelly, After waiting approximately 20 minutes, he is positioned in the modified dorso-lithotomy position and prepped in the usual fashion, The 30-degree cystoscope lens is placed, The anterior urethra, membranous urethra, and prostatic urethra is visualized. Procedure: The bladder demonstrates no tumor or stones, 12 targeted treatments were delivered to the prostate, staying at least 1 cm from the bladder neck, Each location is treated for 9 seconds, per protocol, 10 treatments were given into the lateral lobes by 1 cm, 2 treatments administered to the median lobe, The bladder is again inspected and is free of injury and is clear of blood clots, A Chris catheter is placed, the balloon inflated, and leg bag attached. Specimens Removed: None. Devices Implanted: None. Postoperative Information Discharge: The patient tolerates the procedure well and is discharged home in satisfactory condition, Discharge instructions are provided. Normal [facility] Comment on above: Result Comment: Elec tronically Signed By: Ailyn DUNN MD\.br\Date and Time Signed: 05/27/25 10:30 EDT Ambulatory Visit Summaryon 0 04-30-2025 Ambulatory Visit Summary Ambulatory Visit Summary SETH BELL :1955 Visit Date:04/30/2025 Ambulatory Visit Instructions Your Diagnosis BPH with obstruction/lower urinary tract symptoms Incomplete bladder emptying Elevated PSA Your Care Team Attending Physician - Ailyn DUNN MD Primary Care Physician - STEVAN GALDAMEZ DO This Is Your Medications List Misc Prescription (22 gauge needle) Misc Prescription (3mL syringe) ciprofloxacin (Cipro 500 mg Tab) finasteride (finasteride 5 mg Tab) tadalafil (Cialis 20 mg Tab) tamsulosin (tamsulosin 0.4 mg Cap) Contact prescribing physician if questions or concerns amlodipine-benazepril (amLODIPine-benazepril 5 mg-20 mg Cap) atorvastatin (Lipitor 80 mg Tab) buPROPion (buPROPion 150 mg ER Tab) buPROPion (buPROPion 300 mg/24 hours ER Tab) metoprolol (Toprol XL 50 mg Tab-ER) pantoprazole (Pantoprazole [address] Tab) trazodone (traZODONE 50 mg Tab) Procedures Performed Hernia repair (09/24/2024), Colonoscopy (05/29/2024), Arthroplasty of knee (04/2023), Arthroplasty of the hip (2021), MRI-US fusion guided prostate biopsy (11/09/2021), Cystoscopy (09/18/2014), Colonoscopy (2013), Arthroscopy of knee, Cardiac catheterisation, combined right and left heart, EGD - esophagogastroduodenoscopy, Hemorrhoidectomy, Insertion of coronary artery stent, Lumbar discectomy, neck surgery, Repair of umbilical hernia, Vasectomy. Discharge Vitals Heart Rate (Peripheral) 60 Respiratory Rate 18 Blood Pressure 132/78 Height 179 cm Height 70 in Weight 82.9 kg Weight 182.763 lb BMI 25.87 What to do next Scheduled Follow-Up Appointments Monday2025 8:30 AM EST With: Ailyn DUNN MD Where: [facility] [place] [address]- You Need to Schedule the Following Appointments Follow Up with Ailyn DUNN MD, URL When: Where: [facility] [address], [place] [address]- Medications What How Much When Instructions New ciprofloxacin (Cipro 500 mg Tab) 1 Tablets By Mouth As Directed Take one tab the day before the procedure. Then take the 2nd tab after the procedure has been completed. Pickup at [facility] Unchanged finasteride (finasteride 5 mg Tab) 1 Tablets By Mouth Every day Duration: 90 Days Unchanged Misc Prescription (22 gauge needle) See instructions Use 2 needles per month, one to draw up and one for injection Unchanged Misc Prescription (3mL syringe) See instructions Use 1 syringe each month Unchanged tadalafil (Cialis 20 mg Tab) 1 Tablets By Mouth As Directed take 1hr prior to sexual activity. Do not exceed 20mg/ 24 hrs. Unchanged tamsulosin (tamsulosin 0.4 mg Cap) 1 Capsules By Mouth 2 times a day Duration: 90 Days Unchanged amlodipine-benazepril (amLODIPine-benazepril 5 mg-20 mg Cap) [...] Contact prescribing physician if questions or concerns Pharmacy Information [facility]: [address], [place] [id number] [phone] Allergies No Known Allergies No Known Medication Allergies Problems Ongoing - Any problem that you are currently receiving treatment for. BMI 29.0-29.9,adult BPH with obstruction/lower urinary tract symptoms Coronary atherosclerosis Depression Diverticulosis Elevated PSA Erectile dysfunction Familial hypercholesterolemia Former smoker GERD (gastroesophageal reflux disease) Hearing loss Heart disease Hematuria Hypercholesterolemia Hyperlipidemia Hypertension Hypogonadism male Incomplete bladder emptying Lipoma of spermatic cord Lumbar radiculopathy Lumbar spondylosis Microscopic hematuria Nocturia CYNTHIA (obstructive sleep apnea) Overweight Proteinuria Retrograde ejaculation Right groin pain RLS (restless legs syndrome) Screening for malignant neoplasm of colon Seasonal allergic rhinitis Umbilical hernia Historical - Any problem that you are no longer receiving treatment for. Benign hypertension BPH - benign prostatic hyperplasia Placement of stent Patient Survey (more content not included)... Normal [facility] Ambulatory Visit Summary Ambulatory Visit Summary SETH BELL :1955 Visit Date:04/30/2025 Ambulatory Visit Instructions Your Diagnosis BPH with obstruction/lower urinary tract symptoms Incomplete bladder emptying Elevated PSA Your Care Team Attending Physician - Ailyn DUNN MD Primary Care Physician - STEVAN GALDAMEZ DO This Is Your Medications List Misc Prescription (22 gauge needle) Misc Prescription (3mL syringe) ciprofloxacin (Cipro 500 mg Tab) finasteride (finasteride 5 mg Tab) tadalafil (Cialis 20 mg Tab) tamsulosin (tamsulosin 0.4 mg Cap) Contact prescribing physician if questions or concerns amlodipine-benazepril (amLODIPine-benazepril 5 mg-20 mg Cap) atorvastatin (Lipitor 80 mg Tab) buPROPion (buPROPion 150 mg ER Tab) buPROPion (buPROPion 300 mg/24 hours ER Tab) metoprolol (Toprol XL 50 mg Tab-ER) pantoprazole (Pantoprazole [address] Tab) trazodone (traZODONE 50 mg Tab) Procedures Performed Hernia repair (09/24/2024), Colonoscopy (05/29/2024), Arthroplasty of knee (04/2023), Arthroplasty of the hip (2021), MRI-US fusion guided prostate biopsy (11/09/2021), Cystoscopy (09/18/2014), Colonoscopy (2013), Arthroscopy of knee, Cardiac catheterisation, combined right and left heart, EGD - esophagogastroduodenoscopy, Hemorrhoidectomy, Insertion of coronary artery stent, neck surgery, Repair of umbilical hernia, Vasectomy. Discharge Vitals Heart Rate (Peripheral) 60 Respiratory Rate 18 Blood Pressure 132/78 Height 179 cm Height 70 in Weight 82.9 kg Weight 182.763 lb BMI 25.87 What to do next Scheduled Follow-Up Appointments Monday2025 8:30 AM EST With: Ailyn DUNN MD Where: [facility] [address] [place] [address]- You Need to Schedule the Following Appointments Follow Up with Ailyn DUNN MD, URL When: Where: [facility] [address] , [place] [address]- Medications What How Much When Instructions New ciprofloxacin (Cipro 500 mg Tab) 1 Tablets By Mouth As Directed Take one tab the day before the procedure. Then take the 2nd tab after the procedure has been completed. Pickup at [facility] Unchanged finasteride (finasteride 5 mg Tab) 1 Tablets By Mouth Every day Duration: 90 Days Unchanged Misc Prescription (22 gauge needle) See instructions Use 2 needles per month, one to draw up and one for injection Unchanged Misc Prescription (3mL syringe) See instructions Use 1 syringe each month Unchanged tadalafil (Cialis 20 mg Tab) 1 Tablets By Mouth As Directed take 1hr prior to sexual activity. Do not exceed 20mg/ 24 hrs. Unchanged tamsulosin (tamsulosin 0.4 mg Cap) 1 Capsules By Mouth 2 times a day Duration: 90 Days Unchanged amlodipine-benazepril (amLODIPine-benazepril 5 mg-20 mg Cap) [...] Contact prescribing physician if questions or concerns Pharmacy Information [facility]: [address] [place], [place] [id number] [phone] Allergies No Known Allergies No Known Medication Allergies Problems Ongoing - Any problem that you are currently receiving treatment for. BMI 29.0-29.9,adult BPH with obstruction/lower urinary tract symptoms Coronary atherosclerosis Depression Diverticulosis Elevated PSA Erectile dysfunction Familial hypercholesterolemia Former smoker GERD (gastroesophageal reflux disease) Hearing loss Heart disease Hematuria Hypercholesterolemia Hyperlipidemia Hypertension Hypogonadism male Incomplete bladder emptying Lipoma of spermatic cord Lumbar radiculopathy Lumbar [...] of stent Patient Survey You may receive (more content not included)... Normal [facility] Urology Office/Clinic Noteon 04-30-2025 Urology Office/Clinic Note Urology Office/Clinic Note Chief Complaint difficulty urinating HPI Staff Pt is here today for difficult urination that gets worse with more physical activity. Dx: elevated PSA, BPH with urinary obstruction, hypogonadism and ED. PSA due in December 2025. Flomax BID, Finasteride 5mg qd and Cialis 20mg PRN IPSS: 11 reports difficulty getting stream started, was seen by PCP and was advise that he has an infection in his prostate and was given Levaquin with relief. After completing ABX his symptoms have resumed denies pain/burning denies visible blood denies back/flank pain Pt reports that he has pain at the base of the penis and groin PVR 85 ml History of Present Illness Tests reviewed: UA I have reviewed the previous health record [...] HPI. Physical Exam Vitals & Measurements HR: 60(Peripheral) RR: 18 BP: 132/78 HT: 179 cm HT: 70 in WT: 182.763 lb WT: 82.9 kg BMI: 25.87 General Appearance: alert, no distress, well nourished, well developed adult. Assessment/Plan Pt accompanied by an adult female today. 1. BPH with obstruction/lower urinary tract symptoms (N40.1: Benign prostatic hyperplasia with lower urinary tract symptoms) UA neg. IPSS 11. Taking Finasteride 5mg qd and Tamsulosin 0.4mg bid. Couldn't void after riding lawn mowing. Saw Dr Galdamez who gave him course of Levaquin for prostate infection. Sx improved after abx course. Prior to this, had difficulty voiding/getting stream started. Educated pt that his prostate has outgrown the efficacy of his meds. Explained risks including infection and UR requiring chris. Next option is prostate procedure but first he will require cysto to assess candidacy for prostate procedures. He understands risk that he might go back into retention in the meantime prior to cysto. Discused prostate procedure options including TURP vs rezum and their R/Bs. Will schedule cysto. The risks and benefits for cystoscopy have been discussed. The risks include bleeding, infection, and irritation of the bladder and urinary channel, among others. The patient, after being informed of procedural details and after questions have been answered, wishes to proceed. Full informed consent has been obtained. Will order Local anesthesia. Prophylactic abx sent to DM. 2. Incomplete bladder emptying (R33.9: Retention of urine, unspecified) See #1. PVR today 85 cc. 3. Elevated PSA (R97.20: Elevated prostate specific antigen [PSA]) PSA: 04/21/20 - 0.62 09/17/21 - 1.85 (3.70 Finasteride) 12/06/22 - 0.62 (1.24 Finasteride) 12/28/23 - 0.83 (1.66 Finasteride) 12/19/24 - 0.81 (1.62 Finasteride) Prostate MRI 10/19/21 - PI-RADS 4. Fusion bx 11/09/21 - Neg. ELENA 01/01/24: ~40g, benign. -PSA due in December 2025 Follow-up With When Contact Information SHAUN SHEETS, Ailyn Dee, URL [facility] [address], [place] [address]- Additional Instructions: sched cysto Patient Education Cystoscopy I, Sultana Adler, personally scribed for Dr. Dunn on 04/30/2025 08:36:00. . Documentation recorded by the scribe, Sultana Adler, accurately reflects the services(s) I performed and decisions made by me. Authenticated by Dr. Dunn on 04/30/2025 08:44:24. Problem List/Past Medical History Ongoing BMI 29.0-29.9,adult BPH with obstruction/lower urinary tract symptoms Coronary atherosclerosis Depression Diverticulosis Elevated PSA Erectile dysfunction Familial hypercholesterolemia Former smoker GERD (gastroesophageal reflux disease) Hearing loss Heart disease Hematuria Hypercholesterolemia Hyperlipidemia Hypertension Hypogonadism male Incomplete bladder emptying Lipoma of spermatic cord Lumbar radiculopathy Lumbar spondylosis Microscopic hematuria Nocturia CYNTHIA (obstructive sleep apnea) Overweight Proteinuria Retrograde ejaculation Right groin pain RLS (restless legs syndrome) Screening for malignant neoplasm of colon Seasonal allergic rhinitis Umbilical hernia Historical Benign hypertension BPH - benign prostatic hyperplasia Placement of stent Procedure/Surgical History Hernia repair (09/24/2024), Colonoscopy (05/29/2024), Arthroplasty of knee (04/2023), Arthroplasty of the hip (2021), M (more content not included)... Normal [facility] Comment on above: Result Comment: Elec tronically Signed By: Ailyn DUNN MD R\.br\Date and Time Signed: 04/30/25 08:44 EDT\.br\Electronically Co-Signed By: Sultana Adler\.br\Date and Time Co-Signed: 04/30/25 08:36 EDT 37on 02-17-2025 37 Sinus bradycardia, h eart rate 46 bpm, otherwise normal EKG Normal [facility] Office Visiton 02-17-2025 Follow-up visit [id number] Lona Bell 1955 M Date Provider Department Center 02/17/2025 [id number] [facility]A [facility] Family History Problem Relation Age of Onset Dementia Mother Family Status - Relation Status Age at Mother Alive Father Level of Service:95017 ME OFFICE/OUTPATIENT ESTABLISHED MOD MDM 30 MIN Reason for Visit and Comments: Hypertension [469209] Hyperlipidemia [182] Coronary Artery Disease [187] Normal [facility] Urology Office/Clinic Noteon 12-23-2024 Urology Office/Clinic Note Urology Office/Clinic Note Chief Complaint 1 year with PSA HPI Staff 69yr old male pt here for 1yr f/u with PSA. Previous Dx: elevated PSA, enlarged prostate with urinary obstruction, hypogonadism male, erectile dysfunction *tamsulosin 0.4mg bid, Finasteride 5mg qd, Cialis 20mg prn PSA: 04/21/20 - 0.62 09/17/21 - 1.85 (3.7 Finasteride) 12/06/22 - 0.62 (1.24 Finasteride) 12/28/23 - 0.83 (1.66 Finasteride) 12/09/24 - 0.81 Dysuria: denies Incomplete bladder emptying: denies Hematuria: denies Frequency: depends on fluid intake, but once every 3-4 hours Urgency: denies Nocturia: denies Stream: denies straining, has steady stream Leaking: denies Post void dripping: sometimes Wearing pads/ Depends: denies Urge incontinence: denies Stress incontinence: denies Incontinence without Sensory Awareness: denies Abdominal pain: denies Flank pain: denies Sexual complaints: _ History of Present Illness Tests reviewed: reviewed [...] HPI. Physical Exam Vitals & Measurements HR: 56(Peripheral) RR: 16 BP: 145/89 HT: 70 in HT: 179 cm WT: 86.5 kg WT: 190.7 lb BMI: 27 General Appearance: alert, no distress, well nourished, well developed male. Assessment/Plan Had pain in groin in June after lifting bags of concrete. Was told he had pulled and torn groin muscle. However was further evaluated for a hernia which he had repaired. 1. Elevated PSA (R97.20: Elevated prostate specific antigen [PSA]) PSA: 04/21/20 - 0.62 09/17/21 - 1.85 (3.7 Finasteride) 12/06/22 - 0.62 (1.24 Finasteride) 12/28/23 - 0.83 (1.66 Finasteride) 12/19/24 - 0.81 (1.62 Finasteride) Prostate MRI 10/19/21 - PI-RADS 4. S/p fusion bx 11/09/21 - negative. ELENA 01/01/24: ~40g, benign PSA remains stable. Will cont to monitor. -F/u in 1 yr w/ PSA 2. Enlarged prostate with urinary obstruction (N40.1: Benign prostatic hyperplasia with lower urinary tract symptoms) UA today negative for blood and infection. Taking Finasteride 5mg qd and Tamsulosin 0.4mg bid. Feels he empties completely. Denies nocturia. Satisfied with urinary sx control. -Cont Finasteride and Tamsulosin. Pt to call for refills. 3. Hypogonadism male (E29.1: Testicular hypofunction) Injections d/c previously as pt felt they were not beneficial. Last level drawn in 11/2020 - 556 ([phone]). [1] 4. Erectile dysfunction (N52.9: Male erectile dysfunction, unspecified) Cialis 20mg PRN. [2] Follow-up With When Contact Information SHAUN SHEETS, Ailyn Dee, URL [facility] [address], [place] [address]- [phone] Additional Instructions: 1 yr w/ PSA Patient Education Prostate Cancer Screening IPamela, personally scribed for Dr. Dunn on 12/23/2024 15:20:34. . Documentation recorded by the scribePamela, accurately reflects the services(s) I performed and decisions made by me. Authenticated by Dr. Dunn on 12/23/2024 15:22:05. Problem List/Past Medical History Ongoing BMI 29.0-29.9,adult [...] prostatic hyperplasia Placement of stent Procedure/Surgical History Hernia repair (09/24/2024), Colonoscopy (05/29/2024), Arthroplasty of knee (04/2023), Arthroplasty of the hip (2021), MRI-US fusion guided prostate biopsy (11/09/2021), Cystoscopy (09/18/2014), Colonoscopy (2013), Arthroscopy of knee, Cardiac catheterisation, combined right and left heart, EGD - esophagogastroduodenoscopy, Hemorrhoidectomy, Insertion of coronary artery stent, neck surg (more content not included)... Normal [facility] Comment on above: Result Comment: Elec tronically Signed By: Ailyn DUNN MD\.br\Date and Time Signed: 12/23/24 15:22 EST\.br\Electronically Co-Signed By: Pamela Quezada\.br\Date and Time Co-Signed: 12/23/24 15:20 EST No Panel Informationon 12-19 Prostate Specific Antigen Total 0.81 ng/mL <=4.00 [facility] Ambulatory Visit Summaryon 0 06-27-2024 Ambulatory Visit Summary Ambulatory Visit Summary SETH BELL Darya :1955 Visit Date:06/27/2024 Ambulatory Visit Instructions Your [...] SHEETS, Ailyn Dee Where: [facility] [address] [address]- Medications What How Much When Instructions Unchanged [...] for your care. (more content not included)... Normal [facility] Office Visiton 03-20-2024 Follow-up visit [id number] Lona Bell Darya 1955 M Date Provider Department [facility] Family History Problem Relation Age of Onset Dementia Mother Family Status - Relation Status Age at Mother Alive Father Level of Service:96822 ME OFFICE/OUTPATIENT ESTABLISHED LOW MDM 20 MIN Normal [facility] SURGICAL PATH REPORTon 06-07 SURGICAL PATH REPORT [facility] Department of Pathology [address] [place] [address] Name: SETH BELL : 1955 Financial [id number] Number: Gender Male Rosalio PARISH : n: Admit 67 years Attending ALAN HENLEY Age: Provider: Ordering ALAN HENLEY Provider: Consulti Surgical Pathology Report ng: ACCESSION: COLLECTED DATE/TIME: RECEIVED DATE/TIME: PATHOLOGIST: [id number] 06/03/2023 12:04 EDT 06/05/2023 12:04 EDT MARK HAY MD Final Diagnosis Report for [facility] [place] ANTRAL STOMACH, BIOPSY: - ANTRAL TYPE [...] LICHA/adan 06/05/2023 Tissue pathology report for: [facility], [address] [place] [address]; ____ Print 06/07/2023 11:16 EDT Number: Date/Time: [facility] Department of Pathology [address] [place] [id number] Name: SETH BELL : 1955 Financial [id number] Number: Gender [facility] : n: Admit 67 years Attending ALAN HENLYE Age: Provider: Ordering ALAN HENLEY Provider: Consulti Surgical Pathology Report ng: ACCESSION: COLLECTED DATE/TIME: RECEIVED DATE/TIME: PATHOLOGIST: [id number] 06/03/2023 12:04 EDT 06/05/2023 12:04 EDT BHARTI SHEETS, MARK MELENDEZ Gross Description PATHOLOGY SERVICES PROVIDED BY [employer] (CLIA #[id number]) in cooperation with [facility] at [address] [place] [address] (CLIA #[id number]) Microscopic Diagnosis The final diagnosis is based on a microscopic exam of charter representative sections. NOTE: One or more of the reagents used to perform assays on this specimen MAY have contained components considered to be analyte specific reagents ( ASRs). ASRs have not been cleared or approved by the U.S. Food and Drug Administration. The performance characteristics of these assays have been determined by the Department of Pathology at [facility]. This assay was performed subsequent to the H and E examination. Appropriate positive and negative controls were examined with appropriate reactivity. Codes CPT CODE: 28588 + 13813 ____ Print 06/07/2023 11:16 EDT Number: Date/Time: Normal [facility] Comment on above: Performed By: #### 9 [id number] #### [facility] Laboratory Services [address] [place] [address] Attendant [employer]: Rainer Doss MD BASIC METABOLIC PANELon 06-2 Anion gap [Moles/Vol] 7 mmol/L Low [facility] Calcium [Mass/Vol] 8.1 mg/dL Low [facility] Chloride [Moles/Vol] 103 mmol/L [facility] Comment on above: Please note: Triglyc eride levels of 600mg/dL or higher may positively bias chloride results by approximately 2.1 mmol CO2 [Moles/Vol] 22 mmol/L [facility] Creatinine [Mass/Vol] 0.60 mg/dL Low [facility] GFR COMMENT Average GFR for 60-6 9 years old = 85. [facility] Comment on above: Chronic Kidney disea se, GFR = <60. Kidney failure, GFR = <15. The GFR estimate is not adjusted for extreme body surface area or acute process, nor has it been validated for women or ethnic groups other than and . Testing performed at [place] [address] GFR/1.73 sq M.predicted among blacks MDRD (S/P/Bld) [Vol rate/Area] 172 mL/min/{1.73_m2} ml/min/1.73 sq.m [facility] GFR/1.73 sq M.predicted among non-blacks MDRD (S/P/Bld) [Vol rate/Area] 142 mL/min/{1.73_m2} ml/min/1.73 sq.m [facility] Glucose post fast [Mass/Vol] 136 mg/dL High [facility] Comment on above: NORMAL <100 mg/dL PREDIABETES 101-126 mg/dL DIABETES 126 mg/dL or higher Interpretation and review of laboratory results Abnormal [facility] Potassium [Moles/Vol] 4.0 mmol/L [facility] Sodium [Moles/Vol] 132 mmol/L Low [facility] Urea nitrogen [Mass/Vol] 18 mg/dL [facility] BMP FASTINGon 05-09-2023 Anion gap [Moles/Vol] 7 mmol/L Low 8-16 [facility] Comment on above: Performed By: #### B MPF ####Testing performed at [place] [id number]#### ACBC ####[place] [address] Calcium [Mass/Vol] 8.1 mg/dL Low 8.4-10.2 [facility] Comment on above: Performed By: #### B MPF ####Testing performed at [address] [address]#### ACBC ####Testing performed at [place] [id number] Chloride [Moles/Vol] 103 mmol/L Normal 98-107 [facility] Comment on above: Result Comment: Grey romero note: Triglyceride levels of 600mg/dL or higher may positively bias chloride results by approximately 2.1 mmol Performed By: #### B MPF ####Testing performed at [address] [address]#### ACBC ####[place] [address] CO2 [Moles/Vol] 22 mmol/L Normal 22-30 [facility] Comment on above: Performed By: #### B MPF ####Testing performed at [place] [id number]#### ACBC ####[place] [address] Creatinine [Mass/Vol] 0.60 mg/dL Low 0.7-1.2 [facility] Comment on above: Performed By: #### B MPF ####Testing performed at [address] [address]#### ACBC ####Testing performed at [address] [address] EST. GFR, 172 ml/min/1.73sq.m [facility] Comment on above: Performed By: #### B MPF ####Testing performed at [address] [address]#### ACBC ####Testing performed at [address] [address] EST. GFR,Non 142 ml/min/1.73sq.m [facility] Comment on above: Performed By: #### B MPF ####Testing performed at [address] [address]#### ACBC ####Testing performed at [address] [address] GFR Information Average GFR for 60-6 9 years old = 85. Normal [facility] Comment on above: Result Comment: [employer] katarzyna Kidney disease, GFR = <60. Kidney failure, GFR = <15. The GFR estimate is not adjusted for extreme body surface area or acute process, nor has it been validated for women or ethnic groups other than and . Testing performed at [place] [address] Performed By: #### B MPF ####Testing performed at [place] [id number]#### ACBC ####Testing performed at [address] [address] Glucose [Mass/Vol] 136 mg/dL High 70-100 [facility] Comment on above: Result Comment: NORMAL <100 mg/dL PREDIABETES 101-126 mg/dL DIABETES 126 mg/dL or higher Performed By: #### B MPF ####Testing performed at [place] [id number]#### ACBC ####Testing performed at [address] [address] Potassium [Moles/Vol] 4.0 mmol/L Normal 3.5-5.1 [facility] Comment on above: Performed By: #### B MPF ####Testing performed at [address] [address]#### ACBC ####Testing performed at [address] [address] Sodium [Moles/Vol] 132 mmol/L Low 137-145 [facility] Comment on above: Performed By: #### B MPF ####Testing performed at [address] [address]#### ACBC ####Testing performed at [address] [address] Urea nitrogen [Mass/Vol] 18 mg/dL Normal 7-20 [facility] Comment on above: Performed By: #### B MPF ####Testing performed at [address] [address]#### ACBC ####Testing performed at [address] [address] CBCon 05-09-2023 ABSOLUTE BAS 0.0 10*3/uL Normal 0.0-0.2 [facility] Comment on above: Performed By: #### B MPF ####Testing performed at [address] [address]#### ACBC ####Testing performed at [address] [address] ABSOLUTE EOS 0.0 10*3/uL Normal 0.0-0.7 [facility] Comment on above: Performed By: #### B MPF ####Testing performed at [address] [address]#### ACBC ####Testing performed at [address] [address] ABSOLUTE NEUTROPHIL COUNT 10.1 10*3/uL High 1.4-6.5 [facility] Comment on above: Performed By: #### B MPF ####Testing performed at [place] [id number]#### ACBC ####Testing performed at [address] [address] Basophils/100 WBC (Bld) 0.0 % Normal 0.0-2.0 [facility] Comment on above: Performed By: #### B MPF ####Testing performed at [address] [address]#### ACBC ####Testing performed at [address] [address] DTYPE AUTO DIFF Normal [facility] Comment on above: Performed By: #### B MPF ####Testing performed at [address] [address]#### ACBC ####Testing performed at [address] [address] Eosinophils/100 WBC (Bld) 0.0 % Normal 0.0-11.0 [facility] Comment on above: Performed By: #### B MPF ####Testing performed at [place] [id number]#### ACBC ####Testing performed at [address] [address] Lymphocytes (Bld) [#/Vol] 0.8 10*3/uL Low 1.2-3.4 [facility] Comment on above: Performed By: #### B MPF ####Testing performed at [address] [address]#### ACBC ####Testing performed at [address] [address] Lymphocytes/100 WBC (Bld) 6.7 % Low 20.0-55.0 [facility] Comment on above: Performed By: #### B MPF ####Testing performed at [place] [id number]#### ACBC ####Testing performed at [address] [address] Monocytes (Bld) [#/Vol] 1.0 10*3/uL High 0.0-0.7 [facility] Comment on above: Performed By: #### B MPF ####[place] [address]#### ACBC ####Testing performed at [address] [address] Monocytes/100 WBC (Bld) 8.3 % Normal 0.0-10.0 [facility] Comment on above: Performed By: #### B MPF ####Testing performed at [place] [id number]#### ACBC ####Testing performed at [address] [address] Neutrophils/100 WBC (Bld) 85.0 % High 37.0-75.0 [facility] Comment on above: Performed By: #### B MPF ####Testing performed at [address] [address]#### ACBC ####Testing performed at [address] [address] Erythrocyte distribution width (RBC) [Ratio] 13.8 % Normal 11.5-14.5 [facility] Comment on above: Performed By: #### B MPF ####Testing performed at [place] [id number]#### ACBC ####Testing performed at [address] [address] Hematocrit (Bld) [Volume fraction] 25.8 % Low 42.0-52.0 [facility] Comment on above: Performed By: #### B MPF ####Testing performed at [place] [id number]#### ACBC ####[place] [address] Hemoglobin (Bld) [Mass/Vol] 9.0 g/dL Low 14.0-18.0 [facility] Comment on above: Performed By: #### B MPF ####[place] [address]#### ACBC ####Testing performed at [place] [id number] MCH (RBC) [Entitic mass] 31.3 pg Normal 26.0-35.0 [facility] Comment on above: Performed By: #### B MPF ####[place] [address]#### ACBC ####Testing performed at [place] [id number] MCHC (RBC) [Mass/Vol] 34.8 g/dL Normal 27.0-37.0 [facility] Comment on above: Performed By: #### B MPF ####Testing performed at [place] [id number]#### ACBC ####Testing performed at [address] [address] MCV (RBC) [Entitic vol] 90.0 fL Normal 80.0-100.0 [facility] Comment on above: Performed By: #### B MPF ####Testing performed at [place] [id number]#### ACBC ####Testing performed at [address] [address] Platelet mean volume (Bld) [Entitic vol] 9.1 fL Normal 7.4-11.0 [facility] Comment on above: Performed By: #### B MPF ####Testing performed at [place] [id number]#### ACBC ####Testing performed at [place] [id number] Platelets (Bld) [#/Vol] 149 10*3/uL Normal 130-400 [facility] Comment on above: Performed By: #### B MPF ####[place] [address]#### ACBC ####[place] [address] RBC (Bld) [#/Vol] 2.87 10*6/uL Low 4.0-6.1 [facility] Comment on above: Performed By: #### B MPF ####[place] [address]#### ACBC ####Testing performed at [place] [id number] WBC (Bld) [#/Vol] 11.9 10*3/uL High 3.6-11.0 [facility] Comment on above: Performed By: #### B MPF ####Testing performed at [place] [id number]#### ACBC ####Testing performed at [address] [address] CBC, EDIF, PLATELETon 2022 ABSOLUTE BASOPHIL COUNT 0.0 10*3/uL 0.0 - 0.2 10*3/uL [facility] Basophils/100 WBC (Bld) 0.0 % 0.0 - 2.0 % [facility] Differential cell count method Nom (Bld) AUTO DIFF % [facility] Eosinophils (Bld) [#/Vol] 0.0 10*3/uL 0.0 - 0.7 10*3/uL [facility] Eosinophils/100 WBC (Bld) 0.0 % 0.0 - 11.0 % [facility] Erythrocyte distribution width (RBC) [Ratio] 13.8 % 11.5 - 14.5 % [facility] Hematocrit (Bld) [Volume fraction] 25.8 % Low 42.0 - 52.0 % [facility] Hemoglobin (Bld) [Mass/Vol] 9.0 g/dL Low [facility] Interpretation and review of laboratory results Abnormal [facility] Lymphocytes (Bld) [#/Vol] 0.8 10*3/uL Low 1.2 - 3.4 10*3/uL [facility] Lymphocytes/100 WBC (Bld) 6.7 % Low 20.0 - 55.0 % [facility] MCH (RBC) [Entitic mass] 31.3 pg 26.0 - 35.0 PG [facility] MCHC (RBC) [Mass/Vol] 34.8 g/dL [facility] MCV (RBC) [Entitic vol] 90.0 fL [facility] Monocytes (Bld) [#/Vol] 1.0 10*3/uL High 0.0 - 0.7 10*3/uL [facility] Monocytes/100 WBC (Bld) 8.3 % 0.0 - 10.0 % [facility] Neutrophils (Bld) [#/Vol] 10.1 10*3/uL High 1.4 - 6.5 10*3/uL [facility] Neutrophils/100 WBC (Bld) 85.0 % High 37.0 - 75.0 % [facility] Platelet mean volume (Bld) [Entitic vol] 9.1 fL [facility] Platelets (Bld) [#/Vol] 149 10*3/uL 130 - 400 10*3/uL [facility] RBC (Bld) [#/Vol] 2.87 10*6/uL Low 4.0 - 6.1 10*6/uL [facility] WBC (Bld) [#/Vol] 11.9 10*3/uL High 3.6 - 11.0 10*3/uL [facility] MRSA SCREENon 06-19-2023 MRSA DNA DALIA+probe Ql (Unsp spec) Negative Normal NEGATIVE [facility] Comment on above: Performed By: #### M RSAST ####Testing performed at [address] [address] STAPH AUREUS SCREEN Negative Normal NEGATIVE [facility] Comment on above: Result Comment: TEST ING PERFORMED BY PCR Performed By: #### M RSAST ####Testing performed at [address] [address] SCREEN: MRSA ONLY, NARES (IS OLATION SCREEN)on 05-08-2023 MRSA isol Org specific cx Ql (Nose) Negative NEGATIVE [facility] STAPHYOCOCCUS AUREUS BY PCR Negative NEGATIVE [facility] Comment on above: TESTING PERFORMED BY PCR [facility] XR KNEE LEFT 2 VIEWSon 05-08 XR KNEE LEFT 2 VIEWS EXAM: XR KNEE LEFT 2 VIEWS INDICATION: tka COMPARISON: None. TECHNIQUE: Radiographs as described above FINDINGS/IMPRESSION: Status post total knee arthroplasty without evidence of complication. Expected perioperative soft tissue changes. Normal [facility] XR Knee - left 2 Viewson FINDINGS/IMPRESSION: [...] of complication. Expected perioperative soft tissue changes. [facility] Radiology Study observation (narrative) [facility] XR Knee - left 2 ViewsOrdere d By: Clinton Dickens on 05-08-2023 [facility] Work Phone: CBCon 04-13-2023 ABSOLUTE BAS 0.0 10*3/uL Normal 0.0-0.2 [facility] Comment on above: Performed By: #### U MAC #### Testing performed at [facility] [address] [place] [address] ABSOLUTE EOS 0.2 10*3/uL Normal 0.0-0.7 [facility] Comment on above: Performed By: #### U MAC #### Testing performed at [address] [address] ABSOLUTE NEUTROPHIL COUNT 3.8 10*3/uL Normal 1.4-6.5 [facility] Comment on above: Performed By: #### U MAC #### Testing performed at [address] [address] Basophils/100 WBC (Bld) 0.5 % Normal 0.0-2.0 [facility] Comment on above: Performed By: #### U MAC #### Testing performed at [address] [address] DTYPE AUTO DIFF Normal [facility] Comment on above: Performed By: #### U MAC #### Testing performed at [address] [address] Eosinophils/100 WBC (Bld) 2.6 % Normal 0.0-11.0 [facility] Comment on above: Performed By: #### U MAC #### Testing performed at [address] [address] Lymphocytes (Bld) [#/Vol] 1.3 10*3/uL Normal 1.2-3.4 [facility] Comment on above: Performed By: #### U MAC #### Testing performed at [address] [address] Lymphocytes/100 WBC (Bld) 22.9 % Normal 20.0-55.0 [facility] Comment on above: Performed By: #### U MAC #### Testing performed at [address] [address] Monocytes (Bld) [#/Vol] 0.5 10*3/uL Normal 0.0-0.7 [facility] Comment on above: Performed By: #### U MAC #### Testing performed at [address] [address] Monocytes/100 WBC (Bld) 8.9 % Normal 0.0-10.0 [facility] Comment on above: Performed By: #### U MAC #### Testing performed at [address] [address] Neutrophils/100 WBC (Bld) 65.1 % Normal 37.0-75.0 [facility] Comment on above: Performed By: #### U MAC #### Testing performed at [address] [address] Erythrocyte distribution width (RBC) [Ratio] 14.6 % High 11.5-14.5 [facility] Comment on above: Performed By: #### U MAC #### Testing performed at [address] [address] Hematocrit (Bld) [Volume fraction] 40.8 % Low 42.0-52.0 [facility] Comment on above: Performed By: #### U MAC #### Testing performed at [address] [address] Hemoglobin (Bld) [Mass/Vol] 13.5 g/dL Low 14.0-18.0 [facility] Comment on above: Performed By: #### U MAC #### Testing performed at [address] [address] MCH (RBC) [Entitic mass] 29.9 pg Normal 26.0-35.0 [facility] Comment on above: Performed By: #### U MAC #### Testing performed at [address] [address] MCHC (RBC) [Mass/Vol] 33.0 g/dL Normal 27.0-37.0 [facility] Comment on above: Performed By: #### U MAC #### Testing performed at [address] [address] MCV (RBC) [Entitic vol] 90.7 fL Normal 80.0-100.0 [facility] Comment on above: Performed By: #### U MAC #### Testing performed at [address] [address] Platelet mean volume (Bld) [Entitic vol] 8.9 fL Normal 7.4-11.0 [facility] Comment on above: Performed By: #### U MAC #### Testing performed at [address] [address] Platelets (Bld) [#/Vol] 157 10*3/uL Normal 130-400 [facility] Comment on above: Performed By: #### U MAC #### Testing performed at [address] [address] RBC (Bld) [#/Vol] 4.50 10*6/uL Normal 4.0-6.1 [facility] Comment on above: Performed By: #### U MAC #### Testing performed at [address] [address] WBC (Bld) [#/Vol] 5.9 10*3/uL Normal 3.6-11.0 [facility] Comment on above: Performed By: #### U MAC #### Testing performed at [address] [address] CMP FASTINGon 04-13-2023 A:G RATIO 1.6 RATIO Normal 1.3-2.2 [facility] Comment on above: Performed By: #### U MAC #### Testing performed at [address] [address] ALBUMIN 4.4 G/dl Normal 3.5-5.0 [facility] Comment on above: Performed By: #### U MAC #### Testing performed at [address] [address] ALP [Catalytic activity/Vol] 52 U/L Normal 38-126 [facility] Comment on above: Performed By: #### U MAC #### Testing performed at [address] [place] [address] ALT [Catalytic activity/Vol] 41 U/L Normal 17-63 [facility] Comment on above: Performed By: #### U MAC #### Testing performed at [address] [place] [address] AST [Catalytic activity/Vol] 29 U/L Normal 15-41 [facility] Comment on above: Performed By: #### U MAC #### Testing performed at [address] [address] Bilirubin [Mass/Vol] 1.6 mg/dL High 0.2-1.2 [facility] Comment on above: Performed By: #### U MAC #### Testing performed at [address] [address] Calcium [Mass/Vol] 9.8 mg/dL Normal 8.4-10.2 [facility] Comment on above: Performed By: #### U MAC #### Testing performed at [address] [address] Chloride [Moles/Vol] 105 mmol/L Normal 98-107 [facility] Comment on above: Performed By: #### U MAC #### Testing performed at [address] [address] CO2 [Moles/Vol] 24 mmol/L Normal 22-30 [facility] Comment on above: Performed By: #### U MAC #### Testing performed at [address] [address] Creatinine [Mass/Vol] 0.67 mg/dL Normal 0.66-1.25 [facility] Comment on above: Performed By: #### U MAC #### Testing performed at [address] [address] EST. GFR, 151 ml/min/1.73sq.m [facility] Comment on above: Performed By: #### U MAC #### Testing performed at [address] [address] EST. GFR,Non 125 ml/min/1.73sq.m [facility] Comment on above: Performed By: #### U MAC #### Testing performed at [address] [address] GFR Information Average GFR for 60-6 9 years old = 85. Normal [facility] Comment on above: Result Comment: [employer] katarzyna Kidney disease, GFR = <60. Kidney failure, GFR = <15. The GFR estimate is not adjusted for extreme body surface area or acute process, nor has it been validated for women or ethnic groups other than and . Performed By: #### U MAC #### Testing performed at [address] [address] Glucose [Mass/Vol] 106 mg/dL High 70-100 [facility] Comment on above: Result Comment: NORMAL <100 mg/dL PREDIABETES 101-126 mg/dL DIABETES 126 mg/dL or higher Performed By: #### U MAC #### Testing performed at [address] [address] Potassium [Moles/Vol] 4.2 mmol/L Normal 3.5-5.1 [facility] Comment on above: Performed By: #### U MAC #### Testing performed at [address] [address] Protein [Mass/Vol] 7.2 g/dL Normal 6.3-8.2 [facility] Comment on above: Performed By: #### U MAC #### Testing performed at [address] [address] Sodium [Moles/Vol] 137 mmol/L Normal 136-145 [facility] Comment on above: Performed By: #### U MAC #### Testing performed at [address] [address] Urea nitrogen [Mass/Vol] 17 mg/dL Normal 7-20 [facility] Comment on above: Performed By: #### U MAC #### Testing performed at [address] [address] HEMOGLOBIN A1Con 04-13-2023 Glucose [Mass/Vol] 105 mg/dL Normal [facility] Comment on above: Performed By: #### U MAC #### Testing performed at [address] [address] HbA1c (Bld) [Mass fraction] 5.3 % Normal <6 [facility] Comment on above: Result Comment: NORMAL <5.7% PREDIABETES 5.7-6.4% DIABETES 6.5% OR HIGHER Performed By: #### U MAC #### Testing performed at [address] [address] MRSA SCREENon 04-13-2023 MRSA DNA DALIA+probe Ql (Unsp spec) Negative Normal NEGATIVE [facility] Comment on above: Performed By: #### M RSAST ####Testing performed at [address] [address] STAPH AUREUS SCREEN Positive Abnormal NEGATIVE [facility] Comment on above: Result Comment: TEST ING PERFORMED BY PCR Performed By: #### M RSAST ####Testing performed at [address] [address] PROTIMEon 04-13-2023 INR Coag (PPP) [Relative time] 1.02 {INR} Normal 0.85-1.10 [facility] Comment on above: Result Comment: 2.0-3.0 THERAPEUTIC RANGE 2.5-3.5 MECHANICAL VALVE RANGE Performed By: #### U MAC #### Testing performed at [address] [place] [address] PT Coag (PPP) [Time] 13.5 s Normal 11.8-14.4 [facility] Comment on above: Performed By: #### U MAC #### Testing performed at [address] [address] TYPE AND SCREEN CROSSMATCH C ONVERTIBLEon 04-13-2023 TYPE AND SCREEN CROSSMATCH CONVERTIBLE WORKUP EXPIRES 05/11/2023,2359 ABO/RH(D) O POSITIVE ANTIBODY SCREEN NEGATIVE ARM BAND NUMBER [id number] Normal [facility] Comment on above: Performed By: #### U MAC #### Testing performed at [address] [address] URINE MACROSCOPICon 04-13-20 23 Bilirubin Ql (U) Negative Normal NEGATIVE [facility] Comment on above: Performed By: #### U MAC #### Testing performed at [address] [address] Clarity (U) CLEAR Normal CLEAR [facility] Comment on above: Performed By: #### U MAC #### Testing performed at [address] [place] [address] Color (U) YELLOW Normal YELLOW [facility] Comment on above: Performed By: #### U MAC #### Testing performed at [address] [place] [address] Glucose Ql (U) Negative Normal NEGATIVE [facility] Comment on above: Performed By: #### U MAC #### Testing performed at [address] [address] pH (U) 6.0 [pH] Normal 5.0-7.0 [facility] Comment on above: Performed By: #### U MAC #### Testing performed at [address] [address] URINE HEMOGLOBIN Negative Normal NEGATIVE [facility] Comment on above: Performed By: #### U MAC #### Testing performed at [address] [address] URINE KETONE Negative Normal NEGATIVE [facility] Comment on above: Performed By: #### U MAC #### Testing performed at [address] [address] URINE LEUKOTEST Negative Normal NEGATIVE [facility] Comment on above: Performed By: #### U MAC #### Testing performed at [address] [address] URINE NITRATES Negative Normal NEGATIVE [facility] Comment on above: Performed By: #### U MAC #### Testing performed at [address] [address] URINE SPEC GRAVITY 1.025 Normal 1.010-1.025 [facility] Comment on above: Performed By: #### U MAC #### Testing performed at [address] [address] URINE TOTAL PROTEIN Negative Normal NEGATIVE [facility] Comment on above: Performed By: #### U MAC #### Testing performed at [address] [address] Urobilinogen Qn (U) 1.0 {Tee'U}/dL Normal 0.2-1.0 [facility] Comment on above: Performed By: #### U MAC #### Testing performed at [address] [address] BASIC METABOLIC PANEL 11-2 Anion gap [Moles/Vol] 9 mmol/L [facility] Calcium [Mass/Vol] 8.4 mg/dL [facility] Chloride [Moles/Vol] 105 mmol/L [facility] CO2 [Moles/Vol] 22 mmol/L [facility] Creatinine [Mass/Vol] 0.68 mg/dL [facility] GFR COMMENT Average GFR for 60-6 9 years old = 85. [facility] Comment on above: Chronic Kidney disea se, GFR = <60. Kidney failure, GFR = <15. The GFR estimate is not adjusted for extreme body surface area or acute process, nor has it been validated for women or ethnic groups other than and . GFR/1.73 sq M.predicted among blacks MDRD (S/P/Bld) [Vol rate/Area] 149 mL/min/{1.73_m2} ml/min/1.73 sq.m [facility] GFR/1.73 sq M.predicted among non-blacks MDRD (S/P/Bld) [Vol rate/Area] 123 mL/min/{1.73_m2} ml/min/1.73 sq.m [facility] Glucose post fast [Mass/Vol] 153 mg/dL High [facility] Comment on above: NORMAL <100 mg/dL PREDIABETES 101-126 mg/dL DIABETES 126 mg/dL or higher Interpretation and review of laboratory results Abnormal [facility] Potassium [Moles/Vol] 3.7 mmol/L [facility] Sodium [Moles/Vol] 136 mmol/L [facility] Urea nitrogen [Mass/Vol] 16 mg/dL [facility] BMP FASTINGon 10-11-2022 Anion gap [Moles/Vol] 9 mmol/L Normal 8-16 [facility] Comment on above: Performed By: #### A CBC, BMPF #### Testing performed at [address] [address] Calcium [Mass/Vol] 8.4 mg/dL Normal 8.4-10.2 [facility] Comment on above: Performed By: #### A CBC, BMPF #### Testing performed at [address] [address] Chloride [Moles/Vol] 105 mmol/L Normal 98-107 [facility] Comment on above: Performed By: #### A CBC, BMPF #### Testing performed at [address] [address] CO2 [Moles/Vol] 22 mmol/L Normal 22-30 [facility] Comment on above: Performed By: #### A CBC, BMPF #### Testing performed at [address] [address] Creatinine [Mass/Vol] 0.68 mg/dL Normal 0.66-1.25 [facility] Comment on above: Performed By: #### A CBC, BMPF #### Testing performed at [address] [address] EST. GFR, 149 ml/min/1.73sq.m [facility] Comment on above: Performed By: #### A CBC BMPF #### Testing performed at [address] [address] EST. GFR,Non 123 ml/min/1.73sq.m [facility] Comment on above: Performed By: #### A CBC BMPF #### Testing performed at [address] [address] GFR Information Average GFR for 60-6 9 years old = 85. Normal [facility] Comment on above: Result Comment: [employer] katarzyna Kidney disease, GFR = <60. Kidney failure, GFR = <15. The GFR estimate is not adjusted for extreme body surface area or acute process, nor has it been validated for women or ethnic groups other than and . Performed By: #### A CBC BMPF #### Testing performed at [place] [id number] Glucose [Mass/Vol] 153 mg/dL High 70-100 [facility] Comment on above: Result Comment: NORMAL <100 mg/dL PREDIABETES 101-126 mg/dL DIABETES 126 mg/dL or higher Performed By: #### A CBC BMPF #### Testing performed at [place] [id number] Potassium [Moles/Vol] 3.7 mmol/L Normal 3.5-5.1 [facility] Comment on above: Performed By: #### A CBC BMPF #### Testing performed at [address] [address] Sodium [Moles/Vol] 136 mmol/L Normal 136-145 [facility] Comment on above: Performed By: #### A CBC BMPF #### Testing performed at [place] [id number] Urea nitrogen [Mass/Vol] 16 mg/dL Normal 7-20 [facility] Comment on above: Performed By: #### A CBC, BMPF #### Testing performed at [address] [address] CBCon 11-22-2022 ABSOLUTE BAS 0.0 10*3/uL Normal 0.0-0.2 [facility] Comment on above: Performed By: #### A CBC, BMPF #### Testing performed at [address] [address] ABSOLUTE EOS 0.0 10*3/uL Normal 0.0-0.7 [facility] Comment on above: Performed By: #### A CBC, BMPF #### Testing performed at [address] [address] ABSOLUTE NEUTROPHIL COUNT 7.8 10*3/uL High 1.4-6.5 [facility] Comment on above: Performed By: #### A CBC, BMPF #### Testing performed at [address] [address] Basophils/100 WBC (Bld) 0.1 % Normal 0.0-2.0 [facility] Comment on above: Performed By: #### A CBC, BMPF #### Testing performed at [address] [address] DTYPE AUTO DIFF Normal [facility] Comment on above: Performed By: #### A CBC, BMPF #### Testing performed at [address] [address] Eosinophils/100 WBC (Bld) 0.1 % Normal 0.0-11.0 [facility] Comment on above: Performed By: #### A CBC, BMPF #### Testing performed at [address] [address] Erythrocyte distribution width (RBC) [Ratio] 12.8 % Normal 11.5-14.5 [facility] Comment on above: Performed By: #### A CBC, BMPF #### Testing performed at [address] [address] Hematocrit (Bld) [Volume fraction] 29.8 % Low 42.0-52.0 [facility] Comment on above: Performed By: #### A CBC, BMPF #### Testing performed at [address] [address] Hemoglobin (Bld) [Mass/Vol] 10.1 g/dL Low 14.0-18.0 [facility] Comment on above: Performed By: #### A CBC, BMPF #### Testing performed at [address] [address] Lymphocytes (Bld) [#/Vol] 0.8 10*3/uL Low 1.2-3.4 [facility] Comment on above: Performed By: #### A CBC, BMPF #### Testing performed at [address] [address] Lymphocytes/100 WBC (Bld) 8.4 % Low 20.0-55.0 [facility] Comment on above: Performed By: #### A CBC, BMPF #### Testing performed at [address] [address] MCH (RBC) [Entitic mass] 30.2 pg Normal 26.0-35.0 [facility] Comment on above: Performed By: #### A CBC, BMPF #### Testing performed at [address] [address] MCHC (RBC) [Mass/Vol] 33.8 g/dL Normal 27.0-37.0 [facility] Comment on above: Performed By: #### A CBC, BMPF #### Testing performed at [address] [address] MCV (RBC) [Entitic vol] 89.3 fL Normal 80.0-100.0 [facility] Comment on above: Performed By: #### A CBC, BMPF #### Testing performed at [address] [address] Monocytes (Bld) [#/Vol] 1.1 10*3/uL High 0.0-0.7 [facility] Comment on above: Performed By: #### A CBC, BMPF #### Testing performed at [address] [address] Monocytes/100 WBC (Bld) 10.8 % High 0.0-10.0 [facility] Comment on above: Performed By: #### A CBC, BMPF #### Testing performed at [address] [address] Neutrophils/100 WBC (Bld) 80.6 % High 37.0-75.0 [facility] Comment on above: Performed By: #### A CBC, BMPF #### Testing performed at [address] [address] Platelet mean volume (Bld) [Entitic vol] 9.3 fL Normal 7.4-11.0 [facility] Comment on above: Performed By: #### A CBC, BMPF #### Testing performed at [address] [address] Platelets (Bld) [#/Vol] 146 10*3/uL Normal 130.0-400.0 [facility] Comment on above: Performed By: #### A CBC, BMPF #### Testing performed at [address] [address] RBC (Bld) [#/Vol] 3.33 10*6/uL Low 4.0-6.1 [facility] Comment on above: Performed By: #### A CBC, BMPF #### Testing performed at [address] [address] WBC (Bld) [#/Vol] 9.7 10*3/uL Normal 3.6-11.0 [facility] Comment on above: Performed By: #### A CBC, BMPF #### Testing performed at [address] [address] CBC, EDIF, PLATELETon 2021 ABSOLUTE BASOPHIL COUNT 0.0 10*3/uL 0.0 - 0.2 10*3/uL [facility] Basophils/100 WBC (Bld) 0.1 % 0.0 - 2.0 % [facility] Differential cell count method Nom (Bld) AUTO DIFF % [facility] Eosinophils (Bld) [#/Vol] 0.0 10*3/uL 0.0 - 0.7 10*3/uL [facility] Eosinophils/100 WBC (Bld) 0.1 % 0.0 - 11.0 % [facility] Erythrocyte distribution width (RBC) [Ratio] 12.8 % 11.5 - 14.5 % [facility] Hematocrit (Bld) [Volume fraction] 29.8 % Low 42.0 - 52.0 % [facility] Hemoglobin (Bld) [Mass/Vol] 10.1 g/dL Low [facility] Interpretation and review of laboratory results Abnormal [facility] Lymphocytes (Bld) [#/Vol] 0.8 10*3/uL Low 1.2 - 3.4 10*3/uL [facility] Lymphocytes/100 WBC (Bld) 8.4 % Low 20.0 - 55.0 % [facility] MCH (RBC) [Entitic mass] 30.2 pg 26.0 - 35.0 PG [facility] MCHC (RBC) [Mass/Vol] 33.8 g/dL [facility] MCV (RBC) [Entitic vol] 89.3 fL [facility] Monocytes (Bld) [#/Vol] 1.1 10*3/uL High 0.0 - 0.7 10*3/uL [facility] Monocytes/100 WBC (Bld) 10.8 % High 0.0 - 10.0 % [facility] Neutrophils (Bld) [#/Vol] 7.8 10*3/uL High 1.4 - 6.5 10*3/uL [facility] Neutrophils/100 WBC (Bld) 80.6 % High 37.0 - 75.0 % [facility] Platelet mean volume (Bld) [Entitic vol] 9.3 fL [facility] Platelets (Bld) [#/Vol] 146 10*3/uL 130.0 - 400.0 10*3/uL [facility] RBC (Bld) [#/Vol] 3.33 10*6/uL Low 4.0 - 6.1 10*6/uL [facility] WBC (Bld) [#/Vol] 9.7 10*3/uL 3.6 - 11.0 10*3/uL [facility] NOVEL CORONAVIRUSon --20 22 NARRATIVE This test was perfor med using isothermal DALIA and has been approved as Emergency Use Authorization (EUA) for the qualitative detection [id number] nucleic acid. Normal [facility] Comment on above: Performed By: #### C OVID #### Testing performed at [address] [address] SARS-CoV-2 (COVID-19) RNA DALIA+probe Ql (Unsp spec) Not detected Normal NOT DETECTED [facility] Comment on above: Result Comment: Nega tive [...] #### C OVID #### [place] [address] NOVEL CORONAVIRUS LAB 1 - NA SOPHARYNGEALon 10-10-2022 NARRATIVE -1 This test was perfor med using isothermal DALIA and has been approved as Emergency Use Authorization (EUA) for the qualitative detection [id number] nucleic acid. [facility] SARS-CoV-2 (COVID-19) RNA DALIA+probe Ql (Unsp spec) Not detected NOT DETECTED [facility] Comment on above: Negative results [...] patient is critically ill or clinically deteriorating. [facility] RAPID TOX SCREEN,URINEon AMPHETAMINE Negative Normal NEGATIVE [facility] Comment on above: Result Comment: <500 ng/ml CUTOFF Performed By: #### R TOX #### Testing performed at [address] [address] BARBITURATES Negative Normal NEGATIVE [facility] Comment on above: Result Comment: <200 ng/ml CUTOFF Performed By: #### R TOX #### Testing performed at [address] [place] [address] BENZODIAZEPINES Negative Normal NEGATIVE [facility] Comment on above: Result Comment: <150 ng/ml CUTOFF Performed By: #### R TOX #### Testing performed at [address] [place] [address] BUPRENORPHINE Negative Normal NEGATIVE [facility] Comment on above: Result Comment: <10 ng/ml CUTOFF Performed By: #### R TOX #### Testing performed at [address] [place] [address] CANNABINOIDS Positive Abnormal NEGATIVE [facility] Comment on above: Result Comment: <50 ng/ml CUTOFF *Unconfirmed Screening Result* Unconfirmed screening results are to be used only for medical treatment purposes. Performed By: #### R TOX #### Testing performed at [address] [place] [address] COCAINE Negative Normal NEGATIVE [facility] Comment on above: Result Comment: <150 ng/ml CUTOFF Performed By: #### R TOX #### Testing performed at [address] [place] [address] METHADONE Negative Normal NEGATIVE [facility] Comment on above: Result Comment: <200 ng/ml CUTOFF Performed By: #### R TOX #### Testing performed at [address] [place] [address] METHAMPHETAMINE Negative Normal NEGATIVE [facility] Comment on above: Result Comment: <500 ng/ml CUTOFF Performed By: #### R TOX #### Testing performed at [address] [place] [address] OPIATES Negative Normal NEGATIVE [facility] Comment on above: Result Comment: <100 ng/ml CUTOFF Performed By: #### R TOX #### Testing performed at [address] [place] [address] OXYCODONE Positive Abnormal NEGATIVE [facility] Comment on above: Result Comment: <100 ng/ml CUTOFF *Unconfirmed Screening Result* Unconfirmed screening results are to be used only for medical treatment purposes. Performed By: #### R TOX #### Testing performed at [address] [place] [address] PHENCYCLIDINE Negative Normal NEGATIVE [facility] Comment on above: Result Comment: <25 ng/ml CUTOFF Performed By: #### R TOX #### Testing performed at [address] [place] [address] PROPOXYPHENE Negative Normal NEGATIVE [facility] Comment on above: Result Comment: <300 ng/ml CUTOFF Performed By: #### R TOX #### Testing performed at [address] [place] [address] TRICYCLIC ANTIDEPRESSANTS Positive Abnormal NEGATIVE [facility] Comment on above: Result Comment: <300 ng/ml CUTOFF *Unconfirmed Screening Result* Unconfirmed screening results are to be used only for medical treatment purposes. Performed By: #### R TOX #### Testing performed at [address] [address] REPEAT ABO/RHon 10-10-2022 REPEAT ABO/RH Positive Normal [facility] Comment on above: Performed By: #### R ABR #### Testing performed at [address] [address] REPEAT ABO/RH (D) TYPINGon 1 12-10-2021 ABO and Rh group Nom (Bld ) Positive [facility] TOXICOLOGY DRUG SCREEN, URIN Alexander 10-10-2022 Amphetamine (U) [Mass/Vol] Negative NEGATIVE NG/ML [facility] Comment on above: <500 ng/ml CUTOFF Barbiturates Screen Ql (U) Negative NEGATIVE NG/ML [facility] Comment on above: <200 ng/ml CUTOFF Benzodiazepines Ql (U) Negative NEGATIVE NG/ML [facility] [employer] [facility] Comment on above: <150 ng/ml CUTOFF Benzoylecgonine Ql (U) Negative NEGATIVE NG/ML [facility] Comment on above: <150 ng/ml CUTOFF Buprenorphine Ql (U) Negative NEGATIVE NG/ML [facility] [employer] [facility] Comment on above: <10 ng/ml CUTOFF Cannabinoids Screen Ql (U) Positive Abnormal NEGATIVE NG/ML [facility] [employer] [facility] Comment on above: <50 ng/ml CUTOFF *Unconfirmed Screening Result* Unconfirmed screening results are to be used only for medical treatment purposes. Interpretation and review of laboratory results Abnormal [facility] Methadone Screen Ql (U) Negative NEGATIVE NG/ML [facility] Comment on above: <200 ng/ml CUTOFF Methamphetamine (U) [Mass/Vol] Negative NEGATIVE NG/ML [facility] Comment on above: <500 ng/ml CUTOFF Opiates Screen Ql (U) Negative NEGATIVE NG/ML [facility] Comment on above: <100 ng/ml CUTOFF oxyCODONE Ql (U) Positive Abnormal NEGATIVE NG/ML [facility] Comment on above: <100 ng/ml CUTOFF *Unconfirmed Screening Result* Unconfirmed screening results are to be used only for medical treatment purposes. Phencyclidine Screen method >25 ng/mL Ql (U) Negative NEGATIVE NG/ML [facility] Comment on above: <25 ng/ml CUTOFF Propoxyphene+Norpr opoxyphene Screen Ql (U) Negative NEGATIVE NG/ML [facility] Comment on above: <300 ng/ml CUTOFF Tricyclic antidepressants Screen Ql (U) Positive Abnormal NEGATIVE NG/ML [facility] Comment on above: <300 ng/ml CUTOFF *Unconfirmed Screening Result* Unconfirmed screening results are to be used only for medical treatment purposes. [facility] XR PELVIS AP ONLYon 10-10-20 [...] no periprosthetic fracture or dislocation identified. Normal [facility] XR Pelvis APon 10-10-2022 IMPRESSION: Left hip [...] arthroplasty, no periprosthetic fracture or dislocation identified. [facility] Radiology Study observation (narrative) [facility] XR Pelvis APOrdered By: Hayden Reno on 10-10-2022 [facility] Work Phone: CBCon 09-15-2022 ABSOLUTE BAS 0.0 10*3/uL Normal 0.0-0.2 [facility] Comment on above: Performed By: #### C MPF, ACBC, PT ####Testing performed at [address] [address] ABSOLUTE EOS 0.1 10*3/uL Normal 0.0-0.7 [facility] Comment on above: Performed By: #### C MPF, ACBC, PT ####Testing performed at [address] [address] ABSOLUTE NEUTROPHIL COUNT 4.3 10*3/uL Normal 1.4-6.5 [facility] Comment on above: Performed By: #### C MPF, ACBC, PT ####Testing performed at [address] [address] Basophils/100 WBC (Bld) 0.6 % Normal 0.0-2.0 [facility] Comment on above: Performed By: #### C MPF, ACBC, PT ####Testing performed at [address] [address] DTYPE AUTO DIFF Normal [facility] Comment on above: Performed By: #### C MPF, ACBC, PT ####Testing performed at [address] [address] Eosinophils/100 WBC (Bld) 2.0 % Normal 0.0-11.0 [facility] Comment on above: Performed By: #### C MPF, ACBC, PT ####Testing performed at [address] [address] Lymphocytes (Bld) [#/Vol] 1.2 10*3/uL Normal 1.2-3.4 [facility] Comment on above: Performed By: #### C MPF, ACBC, PT ####Testing performed at [address] [address] Lymphocytes/100 WBC (Bld) 19.4 % Low 20.0-55.0 [facility] Comment on above: Performed By: #### C MPF, ACBC, PT ####Testing performed at [address] [address] Monocytes (Bld) [#/Vol] 0.5 10*3/uL Normal 0.0-0.7 [facility] Comment on above: Performed By: #### C MPF, ACBC, PT ####Testing performed at [address] [address] Monocytes/100 WBC (Bld) 8.8 % Normal 0.0-10.0 [facility] Comment on above: Performed By: #### C MPF, ACBC, PT ####Testing performed at [address] [address] Neutrophils/100 WBC (Bld) 69.2 % Normal 37.0-75.0 [facility] Comment on above: Performed By: #### C MPF, ACBC, PT ####Testing performed at [place] [id number] Erythrocyte distribution width (RBC) [Ratio] 12.3 % Normal 11.5-14.5 [facility] Comment on above: Performed By: #### C MPF, ACBC, PT ####Testing performed at [address] [address] Hematocrit (Bld) [Volume fraction] 40.9 % Low 42.0-52.0 [facility] Comment on above: Performed By: #### C MPF, ACBC, PT ####Testing performed at [address] [address] Hemoglobin (Bld) [Mass/Vol] 13.9 g/dL Low 14.0-18.0 [facility] Comment on above: Performed By: #### C MPF, ACBC, PT ####Testing performed at [address] [address] MCH (RBC) [Entitic mass] 30.6 pg Normal 26.0-35.0 [facility] Comment on above: Performed By: #### C MPF, ACBC, PT ####Testing performed at [address] [address] MCHC (RBC) [Mass/Vol] 34.0 g/dL Normal 27.0-37.0 [facility] Comment on above: Performed By: #### C MPF, ACBC, PT ####Testing performed at [address] [address] MCV (RBC) [Entitic vol] 89.9 fL Normal 80.0-100.0 [facility] Comment on above: Performed By: #### C MPF, ACBC, PT ####Testing performed at [address] [address] Platelet mean volume (Bld) [Entitic vol] 8.8 fL Normal 7.4-11.0 [facility] Comment on above: Performed By: #### C MPF, ACBC, PT ####Testing performed at [address] [address] Platelets (Bld) [#/Vol] 200 10*3/uL Normal 130.0-400.0 [facility] Comment on above: Performed By: #### C MPF, ACBC, PT ####Testing performed at [address] [address] RBC (Bld) [#/Vol] 4.55 10*6/uL Normal 4.0-6.1 [facility] Comment on above: Performed By: #### C MPF, ACBC, PT ####Testing performed at [address] [address] WBC (Bld) [#/Vol] 6.2 10*3/uL Normal 3.6-11.0 [facility] Comment on above: Performed By: #### C MPF, ACBC, PT ####Testing performed at [address] [address] CMP FASTINGon 09-15-2022 A:G RATIO 1.8 RATIO Normal 1.3-2.2 [facility] Comment on above: Performed By: #### C MPF, ACBC, PT ####Testing performed at [address] [address] ALBUMIN 4.6 G/dl Normal 3.5-5.0 [facility] Comment on above: Performed By: #### C MPF, ACBC, PT ####Testing performed at [address] [address] ALP [Catalytic activity/Vol] 76 U/L Normal 38-126 [facility] Comment on above: Performed By: #### C MPF, ACBC, PT ####Testing performed at [address] [address] ALT [Catalytic activity/Vol] 31 U/L Normal 17-63 [facility] Comment on above: Performed By: #### C MPF, ACBC, PT ####Testing performed at [address] [address] AST [Catalytic activity/Vol] 22 U/L Normal 15-41 [facility] Comment on above: Performed By: #### C MPF, ACBC, PT ####Testing performed at [address] [address] Bilirubin [Mass/Vol] 1.3 mg/dL High 0.2-1.2 [facility] Comment on above: Performed By: #### C MPF, ACBC, PT ####Testing performed at [address] [address] Calcium [Mass/Vol] 9.9 mg/dL Normal 8.4-10.2 [facility] Comment on above: Performed By: #### C MPF, ACBC, PT ####Testing performed at [address] [address] Chloride [Moles/Vol] 100 mmol/L Normal 98-107 [facility] Comment on above: Performed By: #### C MPF, ACBC, PT ####Testing performed at [address] [address] CO2 [Moles/Vol] 23 mmol/L Normal 22-30 [facility] Comment on above: Performed By: #### C MPF ACBC, PT ####Testing performed at [address] [address] Creatinine [Mass/Vol] 0.60 mg/dL Low 0.66-1.25 [facility] Comment on above: Performed By: #### C MPF, ACBC, PT ####Testing performed at [address] [address] EST. GFR, 172 ml/min/1.73sq.m [facility] Comment on above: Performed By: #### C MPF, ACBC, PT ####Testing performed at [address] [address] EST. GFR,Non 142 ml/min/1.73sq.m [facility] Comment on above: Performed By: #### C MPF, ACBC, PT ####Testing performed at [address] [address] GFR Information Average GFR for 60-6 9 years old = 85. Normal [facility] Comment on above: Result Comment: [employer] katarzyna Kidney disease, GFR = <60. Kidney failure, GFR = <15. The GFR estimate is not adjusted for extreme body surface area or acute process, nor has it been validated for women or ethnic groups other than and . Performed By: #### C MPF ACBC, PT ####Testing performed at [address] [address] Glucose [Mass/Vol] 127 mg/dL High 70-100 [facility] Comment on above: Result Comment: NORMAL <100 mg/dL PREDIABETES 101-126 mg/dL DIABETES 126 mg/dL or higher Performed By: #### C MPF, ACBC, PT ####Testing performed at [place] [id number] Potassium [Moles/Vol] 4.1 mmol/L Normal 3.5-5.1 [facility] Comment on above: Performed By: #### C MPF, ACBC, PT ####Testing performed at [address] [address] Protein [Mass/Vol] 7.1 g/dL Normal 6.3-8.2 [facility] Comment on above: Performed By: #### C MPF, ACBC, PT ####Testing performed at [place] [id number] Sodium [Moles/Vol] 136 mmol/L Normal 136-145 [facility] Comment on above: Performed By: #### C MPF, ACBC, PT ####Testing performed at [place] [id number] Urea nitrogen [Mass/Vol] 12 mg/dL Normal 7-20 [facility] Comment on above: Performed By: #### C MPF, ACBC, PT ####Testing performed at [address] [address] HEMOGLOBIN A1Con 09-15-2022 Glucose [Mass/Vol] 105 mg/dL Normal [facility] Comment on above: Performed By: #### H A1CT #### Testing performed at [place] [id number] HbA1c (Bld) [Mass fraction] 5.3 % Normal <6 [facility] Comment on above: Result Comment: NORMAL <5.7% PREDIABETES 5.7-6.4% DIABETES 6.5% OR HIGHER Performed By: #### H A1CT #### Testing performed at [address] [address] MRSA SCREENon 09-15-2022 MRSA DNA DALIA+probe Ql (Unsp spec) Not detected Normal NOT DETECTED [facility] Comment on above: Performed By: #### M RSAST #### Testing performed at [address] [address] STAPH AUREUS SCREEN Detected Abnormal NOT DETECTED [facility] Comment on above: Performed By: #### M RSAST #### Testing performed at [address] [address] PROTIMEon 09-15-2022 INR Coag (PPP) [Relative time] 1.08 {INR} Normal 0.85-1.10 [facility] Comment on above: Result Comment: 2.0-3.0 THERAPEUTIC RANGE 2.5-3.5 MECHANICAL VALVE RANGE Performed By: #### C MPF, ACBC, PT ####Testing performed at [address] [address] PT Coag (PPP) [Time] 14.1 s Normal 11.8-14.4 [facility] Comment on above: Performed By: #### C MPF, ACBC, PT ####Testing performed at [address] [address] RAPID TOX SCREEN,URINEon AMPHETAMINE Negative Normal NEGATIVE [facility] Comment on above: Result Comment: <500 ng/ml CUTOFF Performed By: #### R TOX, UMAC ####Testing performed at [address] [address] BARBITURATES Negative Normal NEGATIVE [facility] Comment on above: Result Comment: <200 ng/ml CUTOFF Performed By: #### R TOX, UMAC ####Testing performed at [address] [address] BENZODIAZEPINES Negative Normal NEGATIVE [facility] Comment on above: Result Comment: <150 ng/ml CUTOFF Performed By: #### R TOX, UMAC ####Testing performed at [address] [address] BUPRENORPHINE Negative Normal NEGATIVE [facility] Comment on above: Result Comment: <10 ng/ml CUTOFF Performed By: #### R TOX, UMAC ####Testing performed at [address] [address] CANNABINOIDS Positive Abnormal NEGATIVE [facility] Comment on above: Result Comment: <50 ng/ml CUTOFF *Unconfirmed Screening Result* Unconfirmed screening results are to be used only for medical treatment purposes. Performed By: #### R TOX, UMAC ####Testing performed at [address] [place] [address] COCAINE Negative Normal NEGATIVE [facility] Comment on above: Result Comment: <150 ng/ml CUTOFF Performed By: #### R TOX, UMAC ####Testing performed at [address] [place] [address] METHADONE Negative Normal NEGATIVE [facility] Comment on above: Result Comment: <200 ng/ml CUTOFF Performed By: #### R TOX, UMAC ####Testing performed at [address] [place] [address] METHAMPHETAMINE Negative Normal NEGATIVE [facility] Comment on above: Result Comment: <500 ng/ml CUTOFF Performed By: #### R TOX, UMAC ####Testing performed at [address] [place] [address] OPIATES Negative Normal NEGATIVE [facility] Comment on above: Result Comment: <100 ng/ml CUTOFF Performed By: #### R TOX, UMAC ####Testing performed at [address] [place] [address] OXYCODONE Positive Abnormal NEGATIVE [facility] Comment on above: Result Comment: <100 ng/ml CUTOFF *Unconfirmed Screening Result* Unconfirmed screening results are to be used only for medical treatment purposes. Performed By: #### R TOX, UMAC ####Testing performed at [address] [address] PHENCYCLIDINE Negative Normal NEGATIVE [facility] Comment on above: Result Comment: <25 ng/ml CUTOFF Performed By: #### R TOX, UMAC ####Testing performed at [address] [place] [address] PROPOXYPHENE Negative Normal NEGATIVE [facility] Comment on above: Result Comment: <300 ng/ml CUTOFF Performed By: #### R TOX, UMAC ####Testing performed at [address] [address] TRICYCLIC ANTIDEPRESSANTS Positive Abnormal NEGATIVE [facility] Comment on above: Result Comment: <300 ng/ml CUTOFF *Unconfirmed Screening Result* Unconfirmed screening results are to be used only for medical treatment purposes. Performed By: #### R TOX, UMAC ####Testing performed at [address] [address] TYPE AND SCREEN CROSSMATCH C ONVERTIBLEon 09-15-2022 TYPE AND SCREEN CROSSMATCH CONVERTIBLE WORKUP EXPIRES 10/13/2022,2359 ABO/RH(D) O POSITIVE ANTIBODY SCREEN NEGATIVE ARM BAND NUMBER [id number] Normal [facility] Comment on above: Performed By: #### T SCC #### Testing performed at [address] [address] URINE MACROSCOPICon 09-15-20 Bilirubin Ql (U) Negative Normal NEGATIVE [facility] Comment on above: Performed By: #### R TOX, UMAC ####Testing performed at [address] [place] [address] Clarity (U) CLEAR Normal CLEAR [facility] Comment on above: Performed By: #### R TOX, UMAC ####Testing performed at [address] [place] [address] Color (U) YELLOW Normal YELLOW [facility] Comment on above: Performed By: #### R TOX, UMAC ####Testing performed at [address] [place] [address] Glucose Ql (U) Negative Normal NEGATIVE [facility] Comment on above: Performed By: #### R TOX, UMAC ####Testing performed at [address] [place] [address] pH (U) 5.5 [pH] Normal 5.0-7.0 [facility] Comment on above: Performed By: #### R TOX, UMAC ####Testing performed at [address] [place] [address] URINE HEMOGLOBIN Negative Normal NEGATIVE [facility] Comment on above: Performed By: #### R TOX, UMAC ####Testing performed at [address] [place] [address] URINE KETONE Negative Normal NEGATIVE [facility] Comment on above: Performed By: #### R TOX, UMAC ####Testing performed at [address] [place] [address] URINE LEUKOTEST Negative Normal NEGATIVE [facility] Comment on above: Performed By: #### R TOX, UMAC ####Testing performed at [address] [place] [address] URINE NITRATES Negative Normal NEGATIVE [facility] Comment on above: Performed By: #### R TOX, UMAC ####Testing performed at [address] [place] [address] URINE SPEC GRAVITY 1.015 Normal 1.010-1.025 [facility] Comment on above: Performed By: #### R TOX, UMAC ####Testing performed at [address] [address] URINE TOTAL PROTEIN Negative Normal NEGATIVE [facility] Comment on above: Performed By: #### R TOX, UMAC ####Testing performed at [address] [address] Urobilinogen Qn (U) 0.2 {Tee'U}/dL Normal 0.2-1.0 [facility] Comment on above: Performed By: #### R TOX, UMAC ####Testing performed at [address] [address] Office Visit (Audiology)on 07-15-2022 Follow-up visit Diagnoses/Problems [...] with medical management 3. Consider binaural amplification [id number] Adult Risk Screening There are no spiritual/cultural [...] seems to be unchanged. Patient's preferred language: Mexican Preferred language of the parent, legal guardian or surrogate decision-maker of this minor or incapacitated patient: Not Applicable No overt signs of domestic violence/neglect/abuse. No referral made to Orthotic Finish Grinding Technician. Pain not interfering with optimal level of [...] understanding (100%) at 70 dB HL.. Speech driver courier threshold (30 dB HL in the right [...] DAVIN LYNN Date: 2022-06-15 18:35 Normal [facility] Established Visit (Otolaryng ology)on 06-03-2022 Established [...] This note was created using speech recognition hospitalist physician software/or gripNote hospitalist physician services. Despite proofreading, several typographical errors might [...] DAILY AT BEDTIME Vitals Vital Signs Recorded: [id number] 10:48AM [id number] F Height5 ft 4.5 in Spvqgm114 lb 8 oz BMI Szuwpueclx37.69 kg/m2 BSA Calculated1.91 Tobacco Useb) No Falls Screening (Age 18+)b) One or more falls in the last year Pain Scale8/10 'Scores and Scales' Signatures Electronically signed by : Jamie Rojas MD; Jun 03 2022 12:52PM EST (Author) Normal [facility] Order Reconciliationon 05-11 Order Reconciliation Page 1 [...] ONLY 22-Ju (more content not included)... Normal [facility]3] CORONAVIRUS 2019, SCREEN ASY MPTOMATICon 05-10-2022 SARS-CoV-2 (COVID-19) RNA DALIA+probe Ql (Unsp spec) Not detected Normal Not Detected [facility]3] Comment on above: Result Comment: . This [...] patient management decisions. Fact sheet for providers: https://www.fda.gov/media/155932/download Fact sheet for patients: https://www.fda.gov/media/848125/download This test has received FDA Emergency Use Authorization (EUA) and has been verified by [facility] ([facility]). This test is only authorized for the duration of time that circumstances exist to justify the authorization of the emergency use of in vitro diagnostic tests for the detection of SARS-CoV-2 virus and/or diagnosis of COVID-19 infection under section 564(b)(1) of the Act, 21 U.S.C. 360bbb-3(b)(1), unless the authorization is terminated or revoked sooner. [facility] is certified under CLIA-88 as qualified to perform high complexity testing. Testing is performed in the [facility] laboratories located at [address] [place] [address]. Performed By: #### C OVSC #### [address] [place] [address] Covid 19 Resultson 2 SARS-CoV-2 (COVID-19) RNA [...] may also be contacted by the [facility] to see if any of your [...] or Naproxen (Aleve) can also be used. Pnke-wrm-yuyedvx cough and cold medicines can be used according to the instructions on the package. Some rwwe-lfy-mhcxcjv medicines also contain acetaminophen. Make sure you [...] water are not available, use alcohol-based hand archivist nonprofit foundation. Avoid touching your eyes, nose, and mouth [...] 24 maggy (more content not included)... Normal [facility]3] Patient Profile - Preop v3on 05-10-2022 Patient Profile - Preop v3 Patient Profile - Preop: Initial Info: Patient DemographicsName: SETH BELL Date: 1955 Address: [address] [place] [address] Date/Time [id number] 09:19 Primary Phone [phone] Call Attemptedleft message Instructions Givenanticoagulant meds - patient advised to consult ordering provider, appropriate clothing, bring list of medications, bring responsible adult as the jinrikisha driver (procedure may be cancelled if no jinrikisha driver), time to arrive, remove jewerly/piercings, insurance information, diabetes meds - patient advised to consult ordering provider, center location How to be AddressedBob Spoken Language PreferredEnglish Source of Informationpatient Stated Reason for Admissionleft [facility] Primary Contact Name and [id number] Limitations on Visitors/Phone Callsnone Medications Brought to Hospitalno General Health: Weight in kg86.4 kilogram(s) Weight in ner619.4 pound(s) Height in feet5 feet Height in inches6.97 inch(es) Height in cm170.1 centimeter(s) Height Methodstated BMI (kg/m2)29.861 square meter Patient or Family Member Reaction to Anesthesiano previous reaction; no previous family member reaction Blood Avoidance/Restrictionsnone Previous Transfusion Reactionno Health Mgmt: Symptoms/Conditions Managed at Homerespiratory; cardiovascular; behavioral health Behavioral Health Symptoms/Conditionsanxiety Cardiovascular Symptoms/Conditionshypertens ion Respiratory Symptoms/Conditionssleep disordered breathing Respiratory Management StrategiesBiPAP Barriers to Managing Healthnone Relationship/Environ: Lives Withspouse Living Arrangementshouse Resource/Environmental Concernsnone Anticipated Transition [place] [facility] Anticipated at Transitionnone Tobacco Use: Tobacco Useno Pre-op Checklist: Arrival [id number] Arrival Time09:07 Procedure Typeleft ear surgery NPOyes Last Food [id number] 22:00 Last Clear Fluid [id number] 22:00 ID Band On Patientpatient ID (name) [...] (Signed 10-May-2022 09:21) Authored: Initial Info Makeda Augustine) (Signed 11-May-2022 09:24) Authored: Initial Info, General Health, Health Mgmt, Relationship/Environ, Tobacco Use, Pre-op Checklist, Additional Information Last Updated: 11-May-2022 09:24 by Makeda Augustine) Normal [facility]3] CORONAVIRUS 2019, SCREEN ASY MPTOMATICon 05-09-2022 Lab Specimen Source Nasal, Nasopharyngeal Normal [facility] Comment on above: Performed By: #### C OVSC #### [facility] [address] [place] [address] CBC AUTO DIFFon 05-03-2022 BASO # 0.0 103/ul Normal 0.0-0.1 [facility] Comment on above: Performed By: #### C BC #### [facility] [address] [address] [address] Natty Daily Basophils/100 WBC (Bld) 0.2 % Normal 0.2-2.0 [facility] Comment on above: Performed By: #### C BC #### [facility] [address] [address] [address] Natty Daily EO # 0.0 103/ul Normal 0.0-0.7 [facility] Comment on above: Performed By: #### C BC #### [facility] [address] [place] [address] Dr. Natty Daily Eosinophils/100 WBC (Bld) 0.0 % Critically low 0.9-7.0 [facility] Comment on above: Performed By: #### C BC #### [facility] [address] [place] [address] Dr. Natty Daily Erythrocyte distribution width (RBC) [Ratio] 12.9 % Normal 11.0-15.0 [facility] Comment on above: Performed By: #### C BC #### [facility] [address] [place] [address] Dr. Natty Daily Hematocrit (Bld) [Volume fraction] 38.6 % Critically low 42.0-54.0 [facility] Comment on above: Performed By: #### C BC #### [facility] [address] [place] [address] Dr. Natty Daily Hemoglobin (Bld) [Mass/Vol] 13.1 g/dL Critically low 14.0-18.0 [facility] Comment on above: Performed By: #### C BC #### [facility] [address] [place] [address] Dr. Natty Daily IG # 0.09 10e3/ul Critically high 0.00-0.03 [facility] Comment on above: Performed By: #### C BC #### [facility] [address] [place] [address] Dr. Natty Daily IG % 1.1 % Critically high 0.0-0.[address] [facility] Comment on above: Performed By: #### C BC #### [facility] [address] [place] [address] Dr. Natty Daily LYMPH # 1.3 103/ul Normal 1.2-3.8 [facility] Comment on above: Performed By: #### C BC #### [facility] [address] [place] [address] Dr. Natty Daily Lymphocytes/100 WBC (Bld) 15.8 % Critically low 20.5-60.0 [facility] Comment on above: Performed By: #### C BC #### [facility] [address] [place] [address] Dr. Natty Daily MANUAL DIFF REQ NO Normal [facility] Comment on above: Performed By: #### C BC #### [facility] [address] [place] [address] Dr. Natty Daily MCH (RBC) [Entitic mass] 30.9 pg Normal 25.9-34.0 [facility] Comment on above: Performed By: #### C BC #### [facility] [address] [place] [address] Dr. Natty Daily MCHC (RBC) [Mass/Vol] 33.9 g/dL Normal 29.9-35.2 [facility] Comment on above: Performed By: #### C BC #### [facility] [address] [place] [address] Dr. Natty Daily MCV (RBC) [Entitic vol] 91.0 fL Normal 80.0-94.0 [facility] Comment on above: Performed By: #### C BC #### [facility] [address] [place] [address] Dr. Natty Daily MONO # 0.7 103/ul Normal 0.3-0.8 [facility] Comment on above: Performed By: #### C BC #### [facility] [address] [place] [address] Dr. Natty Daily Monocytes/100 WBC (Bld) 8.3 % Normal 1.7-12.0 [facility] Comment on above: Performed By: #### C BC #### [facility] [address] [place] [address] Dr. Natty Daily NEUT # 6.1 103/ul Normal 1.4-6.5 [facility] Comment on above: Performed By: #### C BC #### [facility] [address] [place] [address] Dr. Natty Daily Neutrophils/100 WBC (Bld) 74.6 % Normal 43.0-75.0 [facility] Comment on above: Performed By: #### C BC #### [facility] [address] [place] [address] Dr. Natty Daily Platelet mean volume (Bld) [Entitic vol] 9.5 fL Normal 9.5-13.5 [facility] Comment on above: Performed By: #### C BC #### [facility] [address] [place] [address] Dr. Natty Daily PLT 231 103/ul Normal 150-450 [facility] Comment on above: Performed By: #### C BC #### [facility] [address] [place] [address] Dr. Natty Daily RBC 4.24 106/ul Critically low 4.70-6.[address] [facility] Comment on above: Performed By: #### C BC #### [facility] [address] [place] [address] Dr. Natty Daily WBC 8.1 103/ul Normal 4.0-11.0 [facility] Comment on above: Performed By: #### C BC #### [facility] [address] [place] [address] Dr. Natty Daily PROF 14(COMP METB)on 022 Albumin [Mass/Vol] 3.9 g/dL Normal 3.4-5.0 [facility] Comment on above: Performed By: #### C MP #### [facility] [address] [place] [address] Dr. Natty Daily Albumin/Globulin [Mass ratio] 1.2 {ratio} Normal [facility] Comment on above: Performed By: #### C MP #### [facility] [address] [place] [address] Dr. Natty Daily ALP [Catalytic activity/Vol] 58 U/L Normal 46-116 [facility] Comment on above: Performed By: #### C MP #### [facility] [address] [address] [address] Natty Daily ALT [Catalytic activity/Vol] 78 U/L Critically high 16-63 [facility] Comment on above: Performed By: #### C MP #### [facility] [address] [place] [address] Dr. Natty Daily Anion gap [Moles/Vol] 14.3 mmol/L Normal [facility] Comment on above: Performed By: #### C MP #### [facility] [address] [place] [address] Dr. Natty Daily AST [Catalytic activity/Vol] 39 U/L Critically high 15-37 [facility] Comment on above: Performed By: #### C MP #### [facility] [address] [place] [address] Dr. Natty Daily Bilirubin [Mass/Vol] 0.8 mg/dL Normal 0.2-1.0 [facility] Comment on above: Performed By: #### C MP #### [facility] [address] [place] [address] Dr. Natty Daily Calcium [Mass/Vol] 9.0 mg/dL Normal 8.5-10.1 [facility] Comment on above: Performed By: #### C MP #### [facility] [address] [address] [address] Natty Daily Chloride [Moles/Vol] 104 mmol/L Normal 98-107 [facility] Comment on above: Performed By: #### C MP #### [facility] [address] [place] [address] Dr. Natty Daily CO2 [Moles/Vol] 24.8 mmol/L Normal 21.0-32.0 [facility] Comment on above: Performed By: #### C MP #### [facility] [address] [address] [address] Natty Daily Creatinine [Mass/Vol] 0.77 mg/dL Normal 0.70-1.30 [facility] Comment on above: Performed By: #### C MP #### [facility] [address] [address] [address] Natty Daily EGFR-AF CITIZEN [place] >60 Normal >=60 [facility] Comment on above: Performed By: #### C MP #### [facility] [address] [address] [address] Natty Daily EGFR-NON AF CITIZEN OF [place] >60 Normal >=60 [facility] Comment on above: Performed By: #### C MP #### [facility] [address] [place] [address] Dr. Natty Daily Globulin (S) [Mass/Vol] 3.2 g/dL Normal [facility] Comment on above: Performed By: #### C MP #### [facility] [address] [place] [address] Dr. Natty Daily Glucose [Mass/Vol] 131 mg/dL Critically high 74-106 [facility] Comment on above: Performed By: #### C MP #### [facility] [address] [place] [address] Dr. Natty Daily Potassium [Moles/Vol] 4.1 mmol/L Normal 3.5-5.1 [facility] Comment on above: Performed By: #### C MP #### [facility] [address] [address] [address] Natty Daily Protein [Mass/Vol] 7.1 g/dL Normal 6.4-8.2 [facility] Comment on above: Performed By: #### C MP #### [facility] [address] [place] [address] Dr. Natty Daily Sodium [Moles/Vol] 139 mmol/L Normal 136-145 [facility] Comment on above: Performed By: #### C MP #### [facility] [address] [place] [address] Dr. Natty Daily Urea nitrogen [Mass/Vol] 22.0 mg/dL Critically high 7.0-18.0 [facility] Comment on above: Performed By: #### C MP #### [facility] [address] [place] [address] Dr. Natty Daily Urea nitrogen/Creatinin e [Mass ratio] 28.6 mg/mg Normal [facility] Comment on above: Performed By: #### C MP #### [facility] [address] [place] [address] Dr. Natty Daily PROTIMEon 05-03-2022 INR Coag (PPP) [Relative time] 1.06 {INR} Normal [facility] Comment on above: Performed By: #### P T, PTT #### [facility] [address] [place] [address] Dr. Natty Daily INR GUIDELINES SEE BELOW Normal [facility] Comment on above: Result Comment: REEMA RED INR: 2.0 - 3.0 CONDITIONS NOT LISTED BELOW 2.5 - 3.5 FOR PROSTHETIC HEART VALVE REPLACEMENT 2.5 - 3.5 RECURRENT THROMBOSIS Performed By: #### P T, PTT #### [facility] [address] [place] [address] Dr. Natty Daily PT Coag (PPP) [Time] 11.4 s Normal 9.0-11.6 [facility] Comment on above: Performed By: #### P T, PTT #### [facility] [address] [place] [address] Dr. Natty Daily PTTon 05-03-2022 aPTT Coag (Bld) [Time] 25.6 s Normal 22.3-36.2 [facility] Comment on above: Performed By: #### P T, PTT #### [facility] [address] [place] [address] Dr. Natty Daily Tobacco Screening.on 022 Fall risk assessment a) No falls within the last year [facility]: Tobacco use status [facility] b) No MG-Otolaryng ology-[facility] Work Phone: Blood Urea Nitrogenon 2020 Urea nitrogen [Mass/Vol] 21 mg/dL Normal 9- [facility] Comment on above: Performed By: #### C REAT, BUN #### [facility] [address] [id number] [place] Creatinineon 10-19-2021 Creatinine [Mass/Vol] 0.92 mg/dL Normal 0.64-1.27 [facility] Comment on above: Performed By: #### C REAT, BUN #### [place] [address] [place] Creatinine Clr [facility]c [facility] 86.[address] [facility] Comment on above: Result Comment: PERF ORMED BY: [place] [id number] PATHOLOGIST STORY READER JAVID GRACIA M.D. Performed By: #### C REAT, BUN #### [address] Estimated GFR ( Jaida > [address] [facility] Comment on above: Result Comment: GFR estimated reference range: According to KDOQI guidelines, <60 ml/min/1.73m2 is sufficient to diagnose a patient with chronic kidney disease. Performed By: #### C REAT, BUN #### [address] Estimated GFR (Non- Am > [address] [facility] Comment on above: Performed By: #### C REAT, BUN #### [address] MR prostate wo/w conon 10-19 MR prostate wo/w con [facility] [place] [address] [place] [address] MRI Report Signed Patient: Seth Bell MR#: [id number] 343 : 1955 Acct:[id number] Age/Sex: 65 / M ADM Date: 10/19/21 Loc: MR Room: Type: [facility] Attending Dr: Ailyn Dunn MD Ordering [...] PM COT by: Asa Kline MD Diplomate, [place] [employer] Report Completed: Oct 19, [...] STAFF 10/19/21 1510 Signed By: 10/19/[address] [facility] Vital Signs Date Time Vital Sign Value Performing Clinician Facility 06-23-2025 11:[id number] Body height 165.1 cm Stevan Ball DO Work Phone: [facility] 06-23-2025 11:170400 Body mass index (BMI) [Ratio] 29.6 kg/m2 Stevan Ball DO Work Phone: [facility] 06-23-2025 [id number] Body weight 80.73 kg Stevan Ball DO Work Phone: [facility] 06-23-2025 11:17-0400 Diastolic blood pressure 81 mm[Hg] Stevan Ball DO Work Phone: [facility] 06-23-2025 11:17-0400 Heart rate 50 /min Stevan Ball DO Work Phone: [facility] 06-23-2025 11:17-040 Respiratory rate 12 /min Stevan Ball DO Work Phone: [facility] 06-23-2025 11:17-0400 Systolic blood pressure 157 mm[Hg] Stevan Ball DO Work Phone: [facility] 04-22-2025 14:27-0400 Body height 165.1 cm [facility] 04-22-2025 14:27-0400 Body mass index (BMI) [Ratio] 29.8 kg/m2 [facility] 04-22-2025 14:27-0400 Body weight 81.41 kg [facility] 04-22-2025 14:27-0400 Diastolic blood pressure 87 mm[Hg] [facility] 04-22-2025 14:27-0400 Heart rate 76 /min [facility] 04-22-2025 14:27-0400 Respiratory rate 12 /min [facility] 04-22-2025 14:27-0400 Systolic blood pressure 154 mm[Hg] [facility] 04-18-2025 08:41-0400 Body height 165.1 cm Sabino Dexter MD Work Phone: [facility] 04-18-2025 08:41-0400 Body mass index (BMI) [Ratio] 30.45 kg/m2 Sabino Dexter MD Work Phone: [facility] 04-18-2025 08:41-0400 Body weight 83.01 kg Sabino Dexter MD Work Phone: [facility] 04-18-2025 08:41-0400 Diastolic blood pressure 77 mm[Hg] Sabino Dexter MD Work Phone: [facility] 04-18-2025 08:41-0400 Heart rate 59 /min Sabino Dexter MD Work Phone: [facility] 04-18-2025 08:41-0400 Systolic blood pressure 135 mm[Hg] Sabino Dexetr MD Work Phone: [facility] 02-14-2025 14:46-0400 Body height 165.1 cm [facility] 02-14-2025 14:46-0400 Body mass index (BMI) [Ratio] 30.5 kg/m2 [facility] 02-14-2025 14:46-0400 Body weight 83.17 kg [facility] 02-14-2025 14:46-0400 Diastolic blood pressure 79 mm[Hg] [facility] 02-14-2025 14:46-0400 Heart rate 54 /min [facility] 02-14-2025 14:46-0400 Respiratory rate 12 /min [facility] 02-14-2025 14:46-0400 Systolic blood pressure 158 mm[Hg] [facility] 12-23-2024 14:27-0500 Diastolic blood pressure 89 mm[Hg] Ailyn DUNN [facility] 12-23-2024 14:27-0500 Heart rate 56 /min Ailynanneliese DUNN [facility] 12-23-2024 14:27-0500 Respiratory rate 16 /min Ailynanneliese DUNN [facility] 12-23-2024 14:27-0500 Systolic blood pressure 145 mm[Hg] Ailyn DUNN [facility] 10-09-2024 11:08-0500 Body height 170.2 cm [employer] Work Phone: [facility] 10-09-2024 11:08-0500 Body mass index (BMI) [Ratio] 28.25 kg/m2 [employer] Work Phone: [facility] 10-09-2024 11:08-0500 Body weight 81.83 kg [employer] Work Phone: [facility] 10-09-2024 11:08-0500 Diastolic blood pressure 72 mm[Hg] [employer] Work Phone: [facility] 10-09-2024 11:08-0500 Heart rate 50 /min [employer] Work Phone: [facility] 10-09-2024 11:08-0500 SaO2% (BldA) [Mass fraction] 97 % [employer] Work Phone: [facility] 10-09-2024 11:08-0500 Systolic blood pressure 118 mm[Hg] Sarah Neva DO Work Phone: [facility] 09-09-2024 09:41-0400 Body height 170.2 cm Sarah Hooks DO Work Phone: [facility] 09-09-2024 09:41-0400 Body mass index (BMI) [Ratio] 28.38 kg/m2 Sarahzoe Hooks DO Work Phone: [facility] 09-09-2024 09:41-0400 Body weight 82.19 kg Sarah Hooks DO Work Phone: [facility] 09-09-2024 09:41-0400 Diastolic blood pressure 82 mm[Hg] Sarah Neva DO Work Phone: [facility] 09-09-2024 09:41-0400 Heart rate 51 /min Sarah Neva DO Work Phone: [facility] 09-09-2024 09:41-0400 Respiratory rate 14 /min Sarah Neva DO Work Phone: [facility] 09-09-2024 09:41-0400 Systolic blood pressure 142 mm[Hg] Sarah Neva DO Work Phone: [facility] 06-27-2024 13:12-0400 Blood Pressure Location Bonifacio NILL [facility] [place] 06-27-2024 13:12-0400 Diastolic blood pressure 74 mm[Hg] Bonifacio NILL [facility] [place] 06-27-2024 13:12-0400 Heart rate 45 /min Bonifacio NILL [facility] 06-27-2024 13:12-0400 Respiratory rate 16 /min Bonifacio NILL [facility] 06-27-2024 13:12-0400 Systolic blood pressure 134 mm[Hg] Bonifacio NILL [facility] [place] 04-23-2024 08:22-0400 Diastolic blood pressure 71 mm[Hg] Bonifacio NILL [facility] [place] 04-23-2024 08:22-0400 Heart rate 50 /min Bonifacio NILL [facility] [place] 04-23-2024 08:22-0400 Respiratory rate 16 /min Bonifacio NILL [facility] [place] 04-23-2024 08:22-0400 Systolic blood pressure 130 mm[Hg] Bonifacio NILL [facility] 01-01-2024 12:00-0500 Blood Pressure Location Ailyn DUNN [facility] 01-01-2024 12:00-0500 Diastolic blood pressure 86 mm[Hg] Ailyn DUNN [facility] 01-01-2024 12:00-0500 Heart rate 70 /min Ailyn DUNN [facility] 01-01-2024 12:00-0500 Respiratory rate 16 /min Ailyn DUNN [facility] 01-01-2024 12:00-0500 Systolic blood pressure 122 mm[Hg] Ailyn DUNN [facility] 10-03-2023 10:00-0500 Body height 165.1 cm Stevan Galdamez Other [employer] Other 10-03-2023 10:00-0500 Body mass index (BMI) [Ratio] 32.71 kg/m2 Stevan Ball Other [employer] Other 10-03-2023 10:00-0500 Body weight 89.18 kg Stevan Ball Other [employer] Other 10-03-2023 10:00-0500 Diastolic blood pressure 81 mm[Hg] Stevan Ball Other [employer] Other 10-03-2023 10:00-0500 Respiratory rate 12 /min Stevan Ball Other [employer] Other 10-03-2023 10:00-0500 Systolic blood pressure 131 mm[Hg] Stevan Ball Other [employer] Other 06-08-2023 09:45-0400 Body height 165.1 cm Stevan Ball Other [employer] Other 06-08-2023 09:45-0400 Body mass index (BMI) [Ratio] 32.15 kg/m2 Stevan Ball Other [employer] Other 06-08-2023 09:45-0400 Body weight 87.64 kg Stevan Ball Other [employer] Other 06-08-2023 09:45-0400 Diastolic blood pressure 66 mm[Hg] Stevan Ball Other [employer] Other 06-08-2023 09:45-0400 Respiratory rate 12 /min Stevan Ball Other [employer] Other 06-08-2023 09:45-0400 Systolic blood pressure 99 mm[Hg] Stevan Ball Other [employer] Other 06-01-2023 11:38-0400 Body height 165.1 cm Mone Watson APRN-[employer]IVE[employer] SALES REPRESENTATIVE Work Phone: [employer] 06-01-2023 11:38-0400 Body mass index (BMI) [Ratio] 32.78 kg/m2 Mone Watson APRN-[employer] SALES REPRESENTATIVE Work Phone: [employer] 06-01-2023 11:38-0400 Body temperature 97.39 [degF] Mone Watson APRN-[employer] SALES REPRESENTATIVE Work Phone: [employer] 06-01-2023 11:38-0400 Body weight 89.36 kg Mone Watson APRN-[employer] SALES REPRESENTATIVE Work Phone: [employer] 05-29-2023 14:15-0400 Body height 165.1 cm Stevan Ball Other [employer] Other 05-29-2023 14:15-0400 Body mass index (BMI) [Ratio] 32.58 kg/m2 Stevan Ball Other [employer] Other 05-29-2023 14:15-0400 Body weight 88.81 kg Stevan Ball Other [employer] Other 05-29-2023 14:15-0400 Diastolic blood pressure 79 mm[Hg] Stevan Ball Other [employer] Other 05-29-2023 14:15-0400 Respiratory rate 12 /min Stevan Ball Other [employer] Other 05-29-2023 14:15-0400 Systolic blood pressure 124 mm[Hg] Stevan Ball Other [employer] Other 05-09-2023 15:49-0400 Body temperature 98.6 [degF] Lazarus Coronado MD Work Phone: [employer] 05-09-2023 15:49-0400 Diastolic blood pressure 68 mm[Hg] Lazarus Coronado MD Work Phone: [employer] 05-09-2023 15:49-0400 Heart rate 71 /min Lazarus Coronado MD Work Phone: [employer] 05-09-2023 15:49-0400 Respiratory rate 16 /min Lazarus Coronado MD Work Phone: [employer] 05-09-2023 15:49-0400 SaO2% (BldA) [Mass fraction] 94 % Lazarus Coronado MD Work Phone: [employer] 05-09-2023 15:49-0400 Systolic blood pressure 138 mm[Hg] Lazarus Coronado MD Work Phone: [employer] 05-08-2023 07:10-0400 Body height 172.7 cm Lazarus Coronado MD Work Phone: [employer] 05-08-2023 07:10-0400 Body mass index (BMI) [Ratio] 29.63 kg/m2 Lazarus Coronado MD Work Phone: [employer] 05-08-2023 07:10-0400 Body weight 88.41 kg Lazarus Coronado MD Work Phone: [employer] 04-14-2023 10:00-0400 Body height 165.1 cm Stevan Ball Other [employer] Other 04-14-2023 10:00-0400 Body mass index (BMI) [Ratio] 33.24 kg/m2 Stevan Ball Other [employer] Other 04-14-2023 10:00-0400 Body weight 90.63 kg Stevan Ball Other [employer] Other 04-14-2023 10:00-0400 Diastolic blood pressure 93 mm[Hg] Stevan Ball Other [employer] Other 04-14-2023 10:00-0400 Respiratory rate 12 /min Stevan Ball Other [facility] [employer] Other 04-14-2023 10:00-0400 Systolic blood pressure 145 mm[Hg] Stevan Ball Other [employer] Other 03-23-2023 10:11-0400 Body height 170.2 cm Lazarus Coronado MD Work Phone: [facility] [employer] [facility] 03-23-2023 10:11-0400 Body mass index (BMI) [Ratio] 30.98 kg/m2 Lazarus Coronado MD Work Phone: [facility] 03-23-2023 10:11-0400 Body temperature 97.39 [degF] Lazarus Coronado MD Work Phone: [facility] 03-23-2023 10:11-0400 Body weight 89.72 kg Lazarus Coronado MD Work Phone: [facility] 12-05-2022 09:23-0500 Blood Pressure Location Ailynanneliese DUNN [facility] 12-05-2022 09:23-0500 Diastolic blood pressure 88 mm[Hg] Ailyn DUNN [facility] 12-05-2022 09:23-0500 Heart rate 76 /min Ailyn DUNN [facility] 12-05-2022 09:23-0500 Respiratory rate 16 /min Ailyn DUNN [facility] 12-05-2022 09:23-0500 Systolic blood pressure 130 mm[Hg] Ailyn DUNN [facility] 10-11-2022 11:21-0500 Body temperature 98.4 [degF] Lazarus Coronado MD Work Phone: [facility] 10-11-2022 11:21-0500 Diastolic blood pressure 63 mm[Hg] Lazarus Coronado MD Work Phone: [employer] [facility] 10-11-2022 11:21-0500 Heart rate 61 /min Lazarus Coronado MD Work Phone: [employer] [facility] 10-11-2022 11:21-0500 Respiratory rate 16 /min Lazarus Coronado MD Work Phone: [employer] [facility] 10-11-2022 11:21-0500 SaO2% (BldA) [Mass fraction] 96 % Lazarus Coronado MD Work Phone: [employer] [facility] 10-11-2022 11:21-0500 Systolic blood pressure 106 mm[Hg] Lazarus Coronado MD Work Phone: [employer] [facility] 10-10-2022 13:00-0500 Body height 165.1 cm Lazarus Coronado MD Work Phone: [employer] [facility] 10-10-2022 13:00-0500 Body mass index (BMI) [Ratio] 30.79 kg/m2 Lazarus Coronado MD Work Phone: [employer] [facility] 10-10-2022 13:00-0500 Body weight 83.92 kg Lazarus Coronado MD Work Phone: [employer] [facility] 08-03-2022 14:13-0400 Body height 165.1 cm Lazarus Coronado MD Work Phone: [employer] 08-03-2022 14:13-0400 Body mass index (BMI) [Ratio] 30.65 kg/m2 Lazarus Coronado MD Work Phone: [employer] 08-03-2022 14:13-0400 Body temperature 97 [degF] Lazarus Coronado MD Work Phone: [employer] 08-03-2022 14:13-0400 Body weight 83.55 kg Lazarus Coronado MD Work Phone: [employer] [facility] 03-17-2022 15:18-0400 Body height 170.18 cm Stevan Galdamez Work Phone: MX-Qxmyvkmhnzlmrk-Jj [place] Work Phone: 03-17-2022 15:18-0400 Body mass index (BMI) [Ratio] 32.26 kg/m2 Stevan Galdamez Work Phone: NQ-Tbpefknatsjzad-Ll [place] Work Phone: 03-17-2022 15:18-0400 Body surface area Derived from formula 2.05 m2 Stevan Galdamez Work Phone: AI-Tpdovxjyokjayv-Jy [place] Work Phone: 03-17-2022 15:18-0400 Body temperature 98.4 [degF] Stevan Galdamez Work Phone: II-Ajgsnassutyrrj-Hw [place] Work Phone: 03-17-2022 15:18-0400 Body weight 93.44 kg Stevan Galdamez Work Phone: TC-Rfpmljbkeohovo-Qc [place] Work Phone: 03-17-2022 15:18-0400 0 1 Stevan Galdamez Work Phone: PO-Keivbxcgoyjjzm-Rx [place] Work Phone: Comment on above: [employer] Encounters Encounter Date Encounter Type Care Provider Facility Start: 12-26-2025 ambulatory Ailyn Lowery ty:NICA [facility] Start: 10-01-2025 ambulatory Ailyn Lowery ty:NICA Gonzalez Start: 06-23-2025 End: 06-23-2025 ambulatory Stevan Galdamez DO Work Phone: [facility] Work Phone: Start: 06-23-2025 End: 06-23-2025 Patient encounter procedure Stevan Galdamez DO -[facility] Work Phone: Start: 06-18-2025 End: 06-18-2025 ambulatory Ailyn DUNN Facility:[facility] Start: 06-18-2025 End: 06-18-2025 Patient encounter procedure Ailyn R DUNN [facility] Start: 06-03-2025 End: 06-03-2025 ambulatory Ailyn Leila SHAUN Facility: [place] Start: 06-03-2025 End: 06-03-2025 Patient encounter procedure Ailyn Dee DUNN [facility] [place] Start: 05-27-2025 End: 05-27-2025 ambulatory Ailyn Leila SHAUN Facility:[facility] [place] [place] Start: 05-27-2025 End: 05-27-2025 Patient encounter procedure Ailyn Dee DUNN [facility] Start: 04-30-2025 End: 05-01-2025 ambulatory Ailyn R DUNN Facility:[id number] Start: 04-30-2025 End: 04-30-2025 Patient encounter procedure Ailyn DUNN [facility] Start: 04-22-2025 End: 04-22-2025 ambulatory [facility] Work Phone: Start: 04-22-2025 End: 04-22-2025 Patient encounter procedure [facility] Work Phone: Start: 04-18-2025 End: 04-18-2025 Bamboo flowsheet Sabino Dexter MD Work Phone: [facility] Start: 04-18-2025 End: 04-18-2025 Bammary jane flowsjr Dexter MD Work Phone: [facility] Start: 04-18-2025 End: 04-18-2025 ambulatory SABINO DEXTER Not Available Start: 04-18-2025 End: 04-18-2025 Office outpatient new 30 minutes Sabino Dexter MD Work Phone: [facility] Comment on above: 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, unspecified 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 (Primary Dx); Bilateral impacted cerumen Start: 04-08-2025 Non-patient / Non-visit [facility] Work Phone: Start: 02-17-2025 End: 02-17-2025 ambulatory [facility] Start: 02-14-2025 End: 02-14-2025 ambulatory [facility] Work Phone: Start: 02-14-2025 End: 02-14-2025 Patient encounter procedure [facility] Work Phone: Start: 12-23-2024 End: 12-23-2024 ambulatory Ailyn DUNN Facility:[facility] Start: 12-23-2024 End: 12-23-2024 Patient encounter procedure Ailyn DUNN [facility] Start: 12-19-2024 Non-patient / Non-visit [facility] Work Phone: Start: 10-09-2024 End: 10-09-2024 Bamboo flowsheet Sarahzoe Hooks DO Work Phone: [facility] Start: 10-09-2024 End: 10-09-2024 Bamboo flowsheet Sarah Hooks DO Work Phone: [facility] Start: 10-09-2024 End: 10-09-2024 Postop follow up visit related to original px Sarah Neva DO Work Phone: [facility] Comment on above: S/P laparoscopic her dieudonne repair (Primary Dx) Start: 10-09-2024 End: 10-09-2024 ambulatory SARAH HOOKS Not Available Start: 09-17-2024 End: 09-17-2024 ambulatory Bonifacio GRAVES Facility: [facility] Start: 09-17-2024 End: 09-17-2024 Patient encounter procedure Bonifacio GRAVES [facility] [place] Start: 09-09-2024 End: 09-09-2024 Bamboo flowsheet Sarah Neva DO Work Phone: [facility] Start: 09-09-2024 End: 09-09-2024 Bamboo flowsheet Sarah Neva DO Work Phone: [facility] Start: 09-09-2024 End: 09-09-2024 ambulatory SARAH HOOKS Not Available Start: 09-09-2024 End: 09-09-2024 Office outpatient new 45 minutes Sarah Neva DO Work Phone: [facility] Comment on above: Right inguinal herni a Start: 06-27-2024 End: 06-27-2024 ambulatory Bonifacio GRAVES Facility: [place] Start: 06-27-2024 End: 06-27-2024 Patient encounter procedure Bonifacio GRAVES [facility] [place] Start: 04-23-2024 End: 04-23-2024 Patient encounter procedure Bonifacio GRAVES [facility] [place] Start: 03-20-2024 End: 03-20-2024 ambulatory [facility] Start: 01-01-2024 End: 01-01-2024 Patient encounter procedure Ailyn DUNN [facility] [place] Start: 11-27-2023 End: 11-27-2023 ambulatory Stevan Galdamez Other [employer] Other Start: 11-27-2023 Office outpatient vi sit 15 minutes Stevan Ball [facility] Start: 11-27-2023 Telephone encounter Stevan Ball [facility] Start: 10-03-2023 End: 10-03-2023 ambulatory Stevan Ball Other [employer] Other Start: 10-03-2023 Office outpatient vi sit 25 minutes Stevan Ball [facility] Start: 09-21-2023 End: 09-21-2023 ambulatory Stevan Ball Other [employer] Other Start: 09-21-2023 Telephone encounter Stevan Ball [facility] Start: 09-04-2023 End: 09-04-2023 ambulatory Stevan Ball Other [employer] Other Start: 09-04-2023 Telephone encounter Stevan Ball [facility] Start: 09-01-2023 End: 09-01-2023 ambulatory Stevan Ball Other [employer] Other Start: 09-01-2023 Telephone encounter Stevan Ball [facility] Start: 08-28-2023 End: 08-28-2023 ambulatory Stevan Ball Other [employer] Other Start: 08-28-2023 Telephone encounter Stevan Ball [facility] Start: 08-17-2023 End: 08-17-2023 ambulatory Stevan Ball Other [employer] Other Start: 08-17-2023 Telephone encounter Stevan Ball [facility] Start: 08-10-2023 End: 08-10-2023 ambulatory Stevan Ball Other [employer] Other Start: 08-10-2023 Telephone encounter Stevan Ball [facility] Start: 08-08-2023 End: 08-08-2023 ambulatory Stevan Ball Other [employer] Other Start: 08-08-2023 Telephone encounter Stevan Galdamez [facility] Start: 07-12-2023 End: 07-12-2023 ambulatory Stevan Galdamez Other [employer] Other Start: 07-12-2023 Telephone encounter Stevan Galdamez [facility] Start: 07-07-2023 End: 07-07-2023 ambulatory Stevan Galdamez Other [employer] Other Start: 07-07-2023 Telephone encounter Stevan Ball [facility] Start: 06-13-2023 End: 06-13-2023 ambulatory Stevan Galdamez Other [employer] Other Start: 06-13-2023 Telephone encounter Stevan Ball [facility] Start: 06-08-2023 End: 06-08-2023 ambulatory Stevan Galdamez Other [employer] Other Start: 06-08-2023 Office outpatient vi sit 25 minutes Stevan Galdamez [facility] Start: 06-05-2023 End: 06-05-2023 ambulatory Stevan Galdamez Other [employer] Other Start: 06-05-2023 Telephone encounter Stevan Galdamez [facility] Start: 06-03-2023 End: 06-04-2023 ambulatory MD ALAN HENLEY Facility:[facility] Start: 06-02-2023 End: 06-02-2023 ambulatory Stevan Galdamez Other [employer] Other Start: 06-02-2023 Telephone encounter Stevan Ball [facility] Start: 06-01-2023 Telephone encounter Stevan Ball [facility] Start: 06-01-2023 End: 06-01-2023 ambulatory STEVAN BALL [employer] Other Start: 06-01-2023 End: 06-01-2023 Postop follow up visit related to original rojelio Watson APRN-[employer] SALES REPRESENTATIVE Work Phone: [facility] Comment on above: Hx of total knee art hroplasty, right (Primary Dx) Start: 05-29-2023 End: 05-29-2023 ambulatory Stevan Galdamez Other [employer] Other Start: 05-29-2023 Office outpatient vi sit 15 minutes Stevan Galdamez [facility] Start: 05-09-2023 End: 05-09-2023 ambulatory Stevan Galdamez Other [employer] Other Start: 05-09-2023 Telephone encounter [facility] Start: 05-08-2023 End: 05-09-2023 ambulatory [facility] Start: 05-08-2023 End: 05-09-2023 Subsequent hospital visit by physician Lazarus Coronado MD Work Phone: [facility] Comment on above: Osteoarthritis of ri ght knee Start: 04-14-2023 End: 04-14-2023 ambulatory Stevan Galdamez Other [employer] Other Start: 04-14-2023 Encounter for other preprocedural examination Stevan Galdamez [facility] Start: 04-14-2023 Office outpatient vi sit 25 minutes Stevan Rudolph [facility] Start: 04-13-2023 ambulatory [facility] Start: 04-13-2023 Encounter for other preprocedural examination [facility] Start: 04-11-2023 End: 04-11-2023 ambulatory Stevan Galdamez Other [employer] Other Start: 04-11-2023 Telephone encounter [facility] Start: 03-24-2023 End: 03-25-[address] STEVAN GALDAMEZ Facility:[facility] Start: 03-23-2023 ambulatory [facility] Start: 03-23-2023 ambulatory [facility] Start: 03-23-2023 End: 03-23-2023 Subsequent hospital visit by physician Mone Watson APRN-[employer] SAL[employer] REPRESENTATIVE Work Phone: [facility] Start: 03-23-2023 End: 03-23-2023 Office outpatient visit 40 minutes Lazarus Coronado MD Work Phone: [facility] Comment on above: Hx of total hip arth roplasty, left (Primary Dx); Right knee pain, unspecified chronicity Start: 03-23-2023 End: 03-23-2023 Subsequent hospital visit by physician Lazarus Coronado MD Work Phone: [facility] Start: 02-23-[address] STEVAN GALDAMEZ Facili ty:[facility] Start: 12-05-2022 End: 12-05-2022 Patient encounter procedure Ailyn DUNN [facility] Start: 12-03-2022 End: 12-04-2022 ambulatory AILYN DUNN Facility:[facility] Start: 11-03-2022 ambulatory [facility] Start: 11-03-2022 End: 11-03-2022 Subsequent hospital visit by physician Mone Watson GEOMETRICIAN-[employer] SALES REPRESENTATIVE Work Phone: [facility] Start: 10-27-2022 End: 10-28-[address] ANETA DUNN . Facility:[facility] Start: 10-10-2022 End: 10-11-2022 ambulatory [facility] Start: 10-10-2022 End: 10-11-2022 Encounter for preprocedural laboratory examination [facility] Start: 10-10-2022 End: 10-11-2022 Patient encounter status Lazarus Coronado MD Work Phone: [facility] Med Surg Start: 10-10-2022 End: 10-11-2022 Subsequent hospital visit by physician Lazarus Coronado MD Work Phone: [facility] Med Surg Comment on above: Primary osteoarthrit is of left hip Start: 09-27-2022 Pre-procedure evalua tion check Stevan Galdamez Other [employer] Other Start: 09-15-2022 ambulatory [facility] Start: 08-03-2022 ambulatory [facility] Start: 08-03-2022 ambulatory [facility] Start: 08-03-2022 End: 08-03-2022 Office outpatient new 60 minutes Lazarus Coronado MD Work Phone: [facility] Orthopedics Comment on above: Left hip pain (Prima ry Dx) Start: 08-03-2022 End: 08-03-2022 Subsequent hospital visit by physician Lazarus Coronado MD Work Phone: [facility] Radiology Start: 07-23-2022 Adult health examination Milan Galdamez Other [employer] Other Start: 07-21-2022 End: 07-22-[address] STEVAN GALDAMEZ Facility:[facility] Start: 06-15-2022 End: 06-16-[address] STEVAN GALDAMEZ Facility:[facility] Start: 05-05-2022 Encounter for preprocedural cardiovascular examination DR DOCTOR GILL [facility] Start: 05-05-2022 Encounter for preprocedural laboratory examination DR DOCTOR GILL [facility] Start: 05-04-2022 End: 05-21-[address] STEVAN GALDAMEZ Facility:[facility] Start: 05-03-2022 End: 05-04-[address] DOCTOR GILL Facility:[facility] Start: 05-03-2022 End: 05-04-2022 Encounter for preprocedural cardiovascular examination DR DOCTOR GILL Facility:[facility] Start: 03-17-2022 Office outpatient ne w 45 minutes Stevan Galdamez Work Phone: [facility] Work Phone: Evaluation finding Stevan hernandez Work Phone: [facility] Work Phone: Procedures Date Procedure Procedure Detail Performing Clinician Start: 05-27-2025 Transurethral water vapor ablation of prostate Ailyn DUNN Start: 05-01-2025 Cystoscopy Ailyn DUNN Start: 09-24-2024 Hernia repair Ailyn DUNN Start: 05-29-2024 Colonoscopy Sarah Hooks DO Work Phone: Start: 05-29-2024 Colonoscopy Bonifacio GRAVES Start: 05-09-2023 Basic metabolic panel calcium total Shahzad Whiting MD Work Phone: Start: 05-09-2023 Complete blood count with white cell differential, automated Mone Watson GEOMETRICIAN-[employer]IVEST[employer] SALES REPRESENTATIVE Work Phone: Start: 05-08-2023 Radiologic examination knee 1/2 views Mone Watson GEOMETRICIAN-[employer]IVESTOCK SALES REPRESENTATIVE Work Phone: Start: 05-08-2023 End: 05-08-2023 Arthrp kne condyle&platu medial&lat compartments Lazarus Coronado MD Work Phone: Start: 05-08-2023 Cultyp nuc acid amp prb cult/isolate ea orgnism Shahzad Whiting MD Work Phone: Start: 04-20-2023 Arthroplasty of knee Ailyn DUNN Start: 12-03-[address] STEVAN GALDAMEZ Comment on above: Performed By: #### PSAD #### [facility] [address] [place] [address] Dr. Natty Daily Start: 10-11-2022 Basic metabolic panel calcium total Shahzad Whiting MD Work Phone: Start: 10-11-2022 Complete blood count with white cell differential, automated Mone Watson GEOMETRICIAN-LIVESTOCK SALES REPRESENTATIVE Work Phone: Start: 10-10-2022 Radiologic examination pelvis 1/2 views Mone Watson GEOMETRICIAN-LIVESTOCK SALES REPRESENTATIVE Work Phone: Start: 10-10-2022 End: 10-10-2022 Arthrp acetblr/prox fem prostc agrft/algrft Lazarus Coronado MD Work Phone: Start: 10-10-2022 Drug test prsmv read direct optical obs pr date Fabian Masters DO Work Phone: Start: 10-10-2022 Blood group typing, RH phenotyping Lazarus Coronado MD Work Phone: Start: 10-10-2022 Sars-cov-2 detection by dna/rna Mone montoya GEOMETRICIAN-[employer]IVESTOCK SALES REPRESENTATIVE Work Phone: Start: 11-20-2021 Repair of hip [...] i ntervertebral disc Ailyn DUNN Hemorrhoidectomy Ailyn SULLIVAN MEI Laboratory test result abnormal Stevan Galdamez Other neck surgery Ailyn DUNN Placement of stent Placement of stent Ailyn DUNN Placement of stent i n coronary artery Bonifacio GRAVES Procedure on back Stevan Johnson Rudolph Work Phone: Procedure on neck Stevan Galdamez Work Phone: Repair of umbilical hernia Darya GRAVES Vasectomy Ailyn DUNN Plan of Treatment Date Care Activity Detail Author Start: 05-29-2034 Screening for malignant neoplasm of colon SANDIE [facility] Start: 10-09-2024 End: 10-09-2024 Patient encounter procedure 10/09/2024 11:00 AM EST Office Visit SANDIE SUAREZ [address] [place] [address] Sarah Hooks DO [address] [place] [address] Arrived SANDIE SUAREZ Comment on above: Arrived Start: 05-08-2024 End: 05-08-2024 Patient encounter procedure 05/08/2024 9:00 AM EDT Office Visit [facility] [address] [place] [id number] Mone Watson, GEOMETRICIAN-LIVESTOCK SALES REPRESENTATIVE [address] [place] [id number] [facility] Start: 07-21-2023 Influenza vaccination A [facility] Start: 06-01-2023 End: 06-01-2023 Patient encounter procedure 06/01/2023 11:40 AM EDT Office Visit [facility] [address] [place] [phone] Mone Watson, GEOMETRICIAN-LIVESTOCK SALES REPRESENTATIVE [address] [place] [id number] [facility] Start: 04-13-2023 End: 04-13-2023 ambulatory 04/13/2023 Pre-Operative Nurse Assessment Internal Medicine [facility] Pre Admission Start: 03-08-2023 End: 03-08-2023 Patient encounter procedure 03/08/2023 Office Visit Orthopaedics Lazarus Coronado MD [address] [place] [id number] [facility] Start: 11-03-2022 End: 11-03-2022 Patient encounter procedure 11/03/2022 Office Visit Orthopaedics Gerardo Mone, GEOMETRICIAN-LIVESTOCK SALES REPRESENTATIVE [address] [place] [address] [facility] Start: 09-15-2022 End: 09-15-2022 ambulatory 09/15/2022 Pre-Operative Nurse Assessment Internal Medicine [facility] Pre Admission Start: 08-03-2022 End: 08-03-2023 XR Pelvis 2 Views [facility] Work Phone: Comment on above: 1 Occurrences starti ng 08/03/2022 until 08/03/2022 Expected: 08/03/2022 , Expires: 08/03/2023 Start: 07-21-2022 Influenza vaccination INFLUENZA VACC INE (#1) [facility] Start: 06-03-2022 POV, Provider: Jamie Rojas, Status: Pen, Time: 9:45 AM POV, Provider: Jamie Rojas, Status: Pen, Time: 9:45 AM [facility] Work Phone: Start: 05-12-2021 COVID-19 VACCINE (3 - Booster for Pfizer series) COVID-19 VACCINE (3 - Booster for Pfizer series) [facility] Start: 05-12-2021 COVID-19 VACCINE (3 - Pfizer series) COVID-19 VACCINE (3 - Pfizer series) [facility] Start: 07-09-2020 Pneumococcal vaccination PNEUMOCOCCAL VACCINE SERIES (2 - PPSV23 if available, else PCV20) [facility] Start: 07-09-2020 Pneumococcal Vaccine : 65+ Years (2 of 2 - PPSV23 or PCV20) Pneumococcal Vaccine: 65+ Years (2 of 2 - PPSV23 or PCV20) [facility] Start: 07-09-2020 Pneumococcal Vaccine : 65+ Years (2 of 2 - PPSV23) Pneumococcal Vaccine: 65+ Years (2 of 2 - PPSV23) [facility] Start: 2018 Abdominal aortic aneurysm screening ABDOMINAL AORTIC ANEURYSM HIGH RISK SCREEN [facility] Start: 2018 Pneumococcal vaccination PNEUMOCOCCAL VACCINE SERIES (1 - PCV) [facility] Start: 2003 Prostate specific antigen measurement PROSTATE CANCER SCREENING DISCUSSION [facility] Start: 2003 Zoster vaccine hzv live for subcutaneous use ZOSTER (SHINGLES) VACCINE (1 of 2) [facility] Start: 1998 Colonoscopy COLORECTAL CAN CER SCREENING DISCUSSION [facility] Start: 1998 Screening for malignant neoplasm of colon COLORECTAL CANCER SCREENING DISCUSSION [facility] Start: 1993 Fasting lipid profile LIPID SCREENIN G [facility] Start: 1993 Lipid panel LIPID SCREENING [facility] Start: 1972 Third diphtheria, tetanus and acellular pertussis (DTaP) vaccination TDAP (ADULT) [facility] Start: 1971 Tetanus vaccination TETANUS [facility] Start: [birth year]-20-1954 COVID-19 VACCINE (#1) COVID-19 VACCI NE (#1) [facility] Start: 1953 Hepatitis C antibody , confirmatory test HEPATITIS C VIRUS SCREENING [facility] Start: 1953 Hepatitis C screening HEPATITI S C VIRUS SCREENING [facility] Start: 1953 Screening for malignant neoplasm of colon [facility] Start: 1953 Tetanus vaccination TETANUS [facility] Radiography for bone length studies XR BONE LENGTH STUDY Imaging Routine Right knee pain, unspecified chronicity 03/23/2023 11:04 AM EDT [facility] Work Phone: End: 10-10-2022 RF Unspecified body region Views during surgery [facility] Comment on above: One Time for 1 Occur rences starting 10/10/2022 until 10/10/2022 SURGICAL PATHOLOGY REQUEST SURGICAL PATHOLOGY REQUEST Surg Path Routine Primary osteoarthritis of left hip Release Upon Ordering for 1 Occurrences starting 10/10/2022 [facility] Comment on above: Release Upon Orderin g for 1 Occurrences starting 10/10/2022 SURGICAL PATHOLOGY REQUEST SURGICAL PATHOLOGY REQUEST Surg Path Routine Primary osteoarthritis of right knee Release Upon Ordering for 1 Occurrences starting 05/08/2023 [facility] Comment on above: Release Upon Orderin g for 1 Occurrences starting 05/08/2023 XR Knee - right 3 Views XR KNEE RIGHT 3 VIEWS Imaging Routine Hx of total knee arthroplasty, right 06/01/2023 11:26 AM EDT [employer] XR Knee - right 4 Views [employer] Work Phone: Comment on above: Ordered: 03/23/2023 XR Pelvis and Hip - left Views XR HIP WITH PELVIS LEFT Imaging Routine Left hip pain 08/03/2022 2:08 PM EDT [employer] Work Phone: XR Pelvis and Hip - left Views XR HIP WITH PELVIS LEFT Imaging Routine Hx of total hip arthroplasty, left 11/03/2022 10:44 AM EST [facility] XR Pelvis and Hip - left Views XR HIP WITH PELVIS LEFT Imaging Routine Hx of total hip arthroplasty, left Ordered: 03/07/2023 [employer] Comment on above: Ordered: 03/07/2023 Immunizations Immunization Date Immunization Notes Care Provider Tiffanie daugherty 08-28-2024 influenza virus vaccine, unspecified formulation Ailyn DUNN [facility] 08-28-2024 influenza, high dose seasonal, preservative-free [facility] 10-03-2023 influenza virus vaccine, unspecified formulation [facility] 10-03-2023 influenza, high dose seasonal, preservative-free Stevan Galdamez Other [facility] [employer] Other 09-27-2022 influenza, high dose seasonal, preservative-free Stevan Galdamez Other [facility] [employer] Other 09-27-2022 influenza virus vaccine, split virus (incl. purified surface antigen) Stevan Galdamez Other [facility] Other 09-27-2022 influenza virus vaccine, unspecified formulation [facility] 08-20-2021 influenza virus vaccine, split virus (incl. purified surface antigen) Stevan Galdamez Other [facility] [employer] Other 08-20-2021 influenza virus vaccine, unspecified formulation [facility] 03-17-2021 SARS-CoV-2 (COVID-19 ) mRNA BNT-162b2 vax Ailyn DUNN [facility] 02-24-2021 SARS-CoV-2 (COVID-19 ) mRNA BNT-162q6 aidex Ailyn DUNN [facility] 11-20-2020 SARS-CoV-2 (COVID-19 ) mRNA BNT-162a1 aidex Ailyn DUNN [facility] Comment on above: Result Comment: pt i s fully vaccinated but does not have his card with him 08-19-2020 influenza virus vaccine, split virus (incl. purified surface antigen) Stevan Galdamez Other [employer] Other 08-19-2020 influenza virus vaccine, unspecified formulation [facility] 10-29-2019 tetanus and diphther ia toxoids, adsorbed, preservative free, for adult use (5 Lf of tetanus toxoid and 2 Lf of diphtheria toxoid) Stevan Galdamez Other [facility] 07-09-2019 pneumococcal conjuga te vaccine, 13 valent Stevan Galdamez Other [facility] 07-09-2019 pneumococcal Conjuga te, unspecified formulation; Translations: [Need for prophylactic vaccination against Streptococcus pneumoniae (pneumococcus)] Stevan Galdamez Other [employer] Other Payers Date Payer Category Payer Private Health Insurance [facility] 2021 Unknown 2021 Private Health Insurance 2020 Medicare [id number] 1959 Medicare [id number] 1959 Private Health Insurance [facility] [id number] 1953 Unknown [id number] 2.16.84 0.1.515692.3.579.2.593 1953 Unknown [id number] 2.16.84 0.1.909713.3.579.2.593 1953 Unknown [id number] 2.16.84 0.1.180398.3.579.2.593 1953 Unknown [id number] 2.16.84 0.1.749573.3.579.2.593 1953 Unknown [id number] 2.16.84 0.1.486491.3.579.2.593 1953 Unknown [id number] 2.16.84 0.1.652522.3.579.2.593 1953 Unknown [id number] 2.16.84 0.1.027502.3.579.2.593 1953 Unknown [id number] 2.16.84 0.1.641260.3.579.2.593 1953 Unknown [id number] 2.16.840.1.363311.3.579.2.159 1953 Unknown [id number] 2.16.840.1.647512.3.579.2.983 1953 Unknown [id number] 2.16.840.1.352355.3.579.2.983 1953 Unknown [id number] 2.16.840.1.706425.3.579.2.983 1953 Unknown [id number] 2.16.840.1.488743.3.579.2.983 1953 Unknown [id number] 2.16.840.1.886772.3.579.2.983 1953 Unknown [id number] 2.16.840.1.851615.3.579.2.983 1953 Unknown [id number] 2.16.840.1.126838.3.579.2.983 1953 Unknown [id number] 2.16.840.1.620687.3.579.2.983 1953 Unknown [id number] 2.16.840.1.853480.3.579.2.983 1953 Unknown [id number] 2.16.840.1.324091.3.579.2.983 1953 Unknown [id number] 2.16.840.1.755366.3.579.2.983 1953 Unknown [id number] 2.16.840.1.074610.3.579.2.983 1953 Unknown [id number] 2.16.840.1.950283.3.579.2.983 1953 Unknown [id number] 2.16.840.1.369249.3.579.2.983 1953 Unknown [id number] 2.16.840.1.642194.3.579.2.1259 1953 Unknown [id number] 2.16.840.1.761685.3.579.2.1259 1953 Unknown [id number] 2.16.840.1.355181.3.579.2.1259 1953 Unknown [id number] 2.16.840.1.925134.3.579.2.727 1953 Unknown [id number] 2.16.840.1.964612.3.579.2.727 1953 Unknown [id number] 2.16.840.1.529106.3.579.2.727 1953 Unknown [id number] 2.16.840.1.852983.3.579.2.727 1953 Unknown [id number] 2.16.840.1.716816.3.579.2.727 1953 Unknown [id number] 2.16.840.1.018426.3.579.2.727 1953 Unknown [id number] 2.16.840.1.440151.3.579.2.727 1953 Unknown [id number] 2.16.840.1.371262.3.579.2.727 1953 Unknown [id number] 2.16.840.1.619788.3.579.2.727 1953 Unknown [id number] 2.16.840.1.326725.3.579.2 Unknown [facility] [id number] Social History Date Type Detail Facility Start: 05-09-2023 End: 04-18-2025 Former smoker Former smoker [facility] Work Phone: Start: 08-03-2022 End: 06-23-2025 Tobacco smoking status NHIS Ex-smoker [facility] End: 11-20-1988 History of tobacco use Cigarette Smoker [facility] Start: 08-03-2022 End: 06-01-2023 Alcohol intake Current drinker of alcohol (finding) [facility] Start: 08-03-2022 History SDOH Alcohol Comment daily [facility] Start: 1955 Sex Assigned At Not on file A [facility] End: 11-20-1988 History of tobacco use Current smoker [facility] Start: 09-13-2022 End: 04-18-2025 Tobacco use and exposure Smokeless tobacco non-user [facility] Start: 09-30-2022 End: 05-08-2023 Exposure to SARS-CoV-2 (event) Not sure [facility] Tobacco smoking status Never Roseanne dee [facility] Start: 05-09-2023 End: 04-18-2025 Sex Assigned At Male [facility] Start: 04-04-2023 Alcohol Comment hard cider daily [facility] Tobacco smoking stat [facility] Tobacco smoking consumption unknown [facility] Start: 01-08-2018 End: 02-14-2025 Sex Male (finding) [facility] Start: 1955 Sex Assigned At Male F [facility] Start: 04-18-2025 Tobacco smoking stat us NHIS Never smoked tobacco [facility] Sexual Orientation [facility] Medical Equipment Procedure Code Equipment Code Equipment Origin al Text Equipment Identifier Dates Bi Mentum Liner [id number] Start: 10-10-2022 22 gauge needle, See Instructions, 12 EA, 1, Use 2 needles per month, one to draw up and one for injection, [id number], Supply, 179, cm, 06/05/20 11:23:00 EDT, Height/Length Measured, 88, kg, 06/05/20 11:23:00 EDT, Weight Measured Start: 06-19-2020 Insert - Knee - [id number] Start: 05-08-2023 22 gauge needle, See [...] 06-19-2020 Functional Status Date Assessment Result Facility 12-23-2024 Functional Status N/A [facility] 06-27-2024 Functional Status N/A [facility] [place] 04-23-2024 Functional Status N/A [facility] [place] 01-01-2024 Functional Status N/A [facility] 12-05-2022 Functional Status N/A [facility] Clinical Notes 03-17-2022 to 06-18-2025 Note Date & Type Note Facility 06-18-2025 Hospital Discharg e instructions Patient Education 06/18/2025 09:43:38 Transurethral Vaporization of Prostate, Care After Transurethral Vaporization of Prostate, Care After The following information offers guidance on how to care for yourself after your procedure. Your health care provider may also give you more specific instructions. If you have problems or questions, contact your health care provider. What can I expect after the procedure? After the procedure, it is common to have these symptoms for a few days: Swelling or discomfort around your urethra. Blood in your urine. A burning feeling when you urinate after the urinary catheter is removed. You will feel this especially at the end of urination. This feeling usually passes within 3 5 days. Little or no semen produced during ejaculation (dry ejaculation). For the first few weeks after the procedure, you may still feel: A sudden urge to urinate (urgency). A need to urinate often. Follow these instructions at home: Medicines Take fgfh-cef-lsyziea and prescription medicines only as told by your health care provider. If you were prescribed an antibiotic medicine, take it as told by your health care provider. Do not stop taking the antibiotic even if you start to feel better. Bathing Do not take baths, swim, or use a hot tub until your health care provider approves. Ask your health care provider if you may take showers. You may only be allowed to take sponge baths. Activity Rest as told by your health care provider. Do not drive or operate machinery until your health care provider says that it is safe. Do not ride in a car for long periods of time, or as told by your health care provider. Do not do strenuous exercises for 1 week or as told by your health care provider. Strenuous exercises are exercises that require a lot effort. Do not lift anything that is heavier than 10 lb (4.5 kg), or the limit that you are told, until your health care provider says that it is safe. Do not have sex until your health care provider approves. Return to your normal activities as told by your health care provider. Ask your health care provider what activities are safe for you. Preventing constipation You may need to take these actions to prevent or treat constipation: Drink enough fluid to keep your urine pale yellow. Take quyn-lzw-voiaquk or prescription medicines. Eat foods that are high in fiber, such as beans, whole grains, and fresh fruits and vegetables. Limit foods that are high in fat and processed sugars, such as fried and sweet foods. General instructions Do not strain when you have a bowel movement. Straining may lead to bleeding from the prostate. This may cause blood clots and trouble urinating. Do not use any products that contain nicotine or tobacco. These products include cigarettes, chewing tobacco, and vaping devices, such as e-cigarettes. If you need help quitting, ask your health care provider. If you go home with a tube draining your urine (urinary catheter), care for the catheter as told by your health care provider. Keep all follow-up visits. This is important. Contact a health care provider if: You have signs of infection, such as: ?Fever or chills. ?Swelling around your urethra that is getting worse. ?Urine that smells very bad. ?Struggling to urinate or pain or burning when you urinate. You have trouble having a bowel movement. You have blood in your urine for more than 2 days after the procedure. You have trouble having or keeping an erection. No semen comes out during orgasm. You have a urinary catheter still in place and you have: ?Spasms or pain. ?Problems with the catheter or your catheter is blocked. Get help right away if: You cannot urinate after your catheter is removed. Your urine is dark red or has blood clots in it. You have blood in your stool. You have severe pain that does not get better with medicine. You develop swelling or pain in your leg. You develop chest pains or shortness of breath. These symptoms may be an emergency. Get help right away. Call 911. Do not wait to see if the symptoms will go away. Do not drive yourself to the hospital. Summary After this procedure, it is common to have some blood in your urine. If you see dark red blood or blood clots in your urine, however, you should get medical help right away. If you go home with a urinary catheter, care for your catheter as told by your health care provider. Follow restrictions about lifting and sexual activity as told by your health care provider. Ask what activities are safe for you. Get help right away if you cannot urinate after your catheter is removed. This information is not intended to replace advice given to you by your health care provider. Make sure you discuss any questions you have with your health care provider. Document Revised: 08/07/2022 Document Reviewed: 08/07/2022 Info Patient Education 2023 Ryan. Follow Up Care 05/02/2025 10:20:54 With:SHAUN SHEETS, Ailyn Dee, TOO Address: [facility] [address], [place] [phone] When: Unknown [facility] 06-18-2025 Note Patient Education Urology Transurethral Vaporization of Prostate, Care After The following information offers guidance on how to care for yourself after your procedure. Your health care provider may also give you more specific instructions. If you have problems or questions, contact your health care provider. What can I expect after the procedure? After the procedure, it is common to have these symptoms for a few days: ??? Swelling or discomfort around your urethra. ??? Blood in your urine. ??? A burning feeling when you urinate after the urinary catheter is removed. You will feel this especially at the end of urination. This feeling usually passes within 3?5 days. ??? Little or no semen produced during ejaculation (dry ejaculation). For the first few weeks after the procedure, you may still feel: ??? A sudden urge to urinate (urgency). ??? A need to urinate often. Follow these instructions at home: Medicines ??? Take pwsj-msr-qidntml and prescription medicines only as told by your health care provider. ??? If you were prescribed an antibiotic medicine, take it as told by your health care provider. Do not stop taking the antibiotic even if you start to feel better. Bathing ??? Do not take baths, swim, or use a hot tub until your health care provider approves. Ask your health care provider if you may take showers. You may only be allowed to take sponge baths. Activity ??? Rest as told by your health care provider. ??? Do not drive or operate machinery until your health care provider says that it is safe. ??? Do not ride in a car for long periods of time, or as told by your health care provider. ??? Do not do strenuous exercises for 1 week or as told by your health care provider. Strenuous exercises are exercises that require a lot effort. ??? Do not lift anything that is heavier than 10 lb (4.5 kg), or the limit that you are told, until your health care provider says that it is safe. ??? Do not have sex until your health care provider approves. ??? Return to your normal activities as told by your health care provider. Ask your health care provider what activities are safe for you. Preventing constipation You may need to take these actions to prevent or treat constipation: ??? Drink enough fluid to keep your urine pale yellow. ??? Take uygk-jhq-oopbzry or prescription medicines. ??? Eat foods that are high in fiber, such as beans, whole grains, and fresh fruits and vegetables. ??? Limit foods that are high in fat and processed sugars, such as fried and sweet foods. General instructions ??? Do not strain when you have a bowel movement. Straining may lead to bleeding from the prostate. This may cause blood clots and trouble urinating. ??? Do not use any products that contain nicotine or tobacco. These products include cigarettes, chewing tobacco, and vaping devices, such as e-cigarettes. If you need help quitting, ask your health care provider. ??? If you go home with a tube draining your urine (urinary catheter), care for the catheter as told by your health care provider. ??? Keep all follow-up visits. This is important. Contact a health care provider if: ??? You have signs of infection, such as: ? Fever or chills. ? Swelling around your urethra that is getting worse. ? Urine that smells very bad. ? Struggling to urinate or pain or burning when you urinate. ??? You have trouble having a bowel movement. ??? You have blood in your urine for more than 2 days after the procedure. ??? You have trouble having or keeping an erection. ??? No semen comes out during orgasm. ??? You have a urinary catheter still in place and you have: ? Spasms or pain. ? Problems with the catheter or your catheter is blocked. Get help right away if: ??? You cannot urinate after your catheter is removed. ??? Your urine is dark red or has blood clots in it. ??? You have blood in your stool. ??? You have severe pain that does not get better with medicine. ??? You develop swelling or pain in your leg. ??? You develop chest pains or shortness of breath. These symptoms may be an emergency. Get help right away. Call 911. ??? Do not wait to see if the symptoms will go away. ??? Do not drive yourself to the hospital. Summary ??? After this procedure, it is common to have some blood in your urine. If you see dark red blood or blood clots in your urine, however, you should get medical help right away. ??? If you go home with a urinary catheter, care for your catheter as told by your health care provider. ??? Follow restrictions about lifting and sexual activity as told by your health care provider. Ask what activities are safe for you. ??? Get help right away if you cannot urinate after your catheter is removed. This information is not intended to replace advice given to you by your health care provider. Make sure you discuss any questions you (more content not included)... [facility] 05-27-2025 Hospital Discharg e instructions Patient Education 05/27/2025 10:26:39 EU - Rezum Discharge Instructions (CUSTOM) Rezum Post-Procedure Instructions General Recommendations 1. Drink some extra fluids (water preferred) for the first few days following the procedure. Avoid alcohol and caffeine until your irritative symptoms have resolved. 2. Take the medication as prescribed by your doctor. Usually this will include an antibiotic, pain medication or antispasmodic if needed. 3. Avoid lifting heavy objects (>10 lbs) or excessive straining as this may cause bleeding in the first week after surgery. 4. Catheter instructions: You will go home with a Chris catheter attached to a catheter bag. Follow your doctor s instructions. 5. You may resume your normal diet. Common Treatment Related Symptoms The following are common treatment related signs and symptoms that you may experience after the procedure. They may also occur following removal of the catheter. After the procedure, your general urinary symptoms may temporarily worsen and then gradually improve. 1. Blood in the Urine. It is common to see some blood in the urine for 1 to 2 weeks. Limit any physical activities and drink some extra water to flush the bladder but you do not need to drink excessively or be alarmed. If you think the bleeding is excessive or you are having trouble urinating, call the number below. 2. Painful Urination. It is common to have some pain or burning with urination for 1 to 2 weeks. It should gradually improve. If it persists or starts to worsen, call the number below. 3. Slow Urinary Stream. After the procedure, swelling of the prostate occurs which may or may not make the urinary stream weaker. This should gradually improve. If you are having a lot of difficulty trying to urinate or cannot urinate, call your doctor. 4. Urinary Urgency, Frequency or Leakage. You may experience frequency and/or a strong urge to urinate while the prostate heals. Sometimes, you may find the urge is so strong that it is difficult to hold your urine and leakage can occur. 6. Blood in the Semen. This may occur up to several weeks following the procedure. The semen may have red or a gonzales color. This condition will almost always resolve without any treatment. You should not be alarmed. Frequently Asked Questions Your Treating Doctor may override these recommendations. You should follow his/her instructions. 1. When can I resume normal physical activities? You may resume your daily activities immediately. You should limit vigorous workouts such as bike riding, running, treadmills, and heavy weight lifting for the first week. If you experience any bleeding, limit your activities and increase your water intake. 2. When can I resume sexual activity? In general, once you do not see any blood in the urine you may resume sexual activity. You may experience blood in the semen as described in the Common Treatment Related Symptoms section. 3. When can I resume my medications including blood thinners? In general, you should continue with any of your regular medications but check with your doctor. Typically, you can resume any blood thinners immediately post procedure but check with your doctor. 4. When can I go back to work? In general, you can return to work the following day. If you are taking pain medication (narcotics) or have a physical job (lifting, construction work, etc.), check with your doctor. 5. When can I have an alcoholic beverage? You should avoid any alcohol until your irritative symptoms have resolved, typically 1-2 weeks. Alcohol is a bladder irritant and can worsen your symptoms. You should also follow the instructions regarding alcohol intake on the labels of your prescription medication. Contact your Doctor Immediately If you experience: 1. Fever (oral temperature = 101 F), chills may be signs of an infection. 2. Inability to urinate. 3. Foul smelling or cloudy urine. 4. While there may be some pain related to the procedure, it is usually not severe. If you are experiencing severe pain or any condition you think may be serious, call your doctor. 5. If unable to contact your physician and you feel it is an emergency, go to the nearest emergency room or call 911. Chris Catheter Care, Male A Chris catheter is a soft, flexible tube that is placed into the bladder to drain urine. The catheter has a balloon to hold it inside the bladder. A Chris catheter may be inserted if: You leak urine or are not able to control when you urinate (urinary incontinence). You are not able to urinate when you need to (urinary retention). You had prostate surgery or surgery on the genitals. You have certain medical conditions, such as multiple sclerosis, dementia, or a spinal cord injury. To Prevent Infection: 1. Wash your hands with soap and water before and after handling your catheter. 2. Using mild soap and warm water on a clean washcloth; twice a day. Clean the area on your body closest to the catheter insertion site using a circular motion, moving away from the catheter. Never wipe toward the catheter because this could sweep bacteria up into the urethra and cause infection. Remove all traces of soap. Pat the area dry with a clean towel and reposition the foreskin. No tub baths. No lotions, powders, or sprays unless directed by your physician. 3. Keep the tube secure. Do not let the tube pull or catch when you are moving around. Attach the catheter to your leg so there is no tension on the catheter. Use adhesive tape or a leg strap. If you are using adhesive tape, remove any sticky residue left behind by the previous tape you used. 4. Replace wet leg straps with dry ones. 5. Wear cotton underwear to absorb moisture and keep skein yarn drier. 6. Keep the drainage bag below the level of the bladder, but keep it off the floor. 7. Check throughout the day to be sure the catheter is working and urine is draining freely. Make sure the tubing does not become kinked or looped. 8. Do not pull on the catheter or try to remove it. Pulling could damage internal tissues. TAKING CARE OF THE DRAINAGE BAGS Emptying the Drainage Bag You must empty your drainage bag when it is ? full. 1. Wash your hands with soap and water before and after handling your catheter. 2. Keep the drainage bag below your hips, below the level of your bladder. This stops urine from going back into the tubing and into your bladder. 3. Hold the dirty bag over the toilet or a clean container. 4. Open the pour spout at the bottom of the bag and empty the urine into the toilet or container. Do not let the pour spout touch the toilet, container, or any other surface. Doing so can place bacteria on the bag, which can cause an infection. 5. Clean the pour spout with a gauze pad or cotton ball that has rubbing alcohol on it. 6. Close the pour spout. 7. Attach the bag to your leg with adhesive tape or a leg strap. Changing the Drainage Bag 1. Wash your hands with soap and water before and after handling your catheter. 2. Pinch off the rubber catheter so that urine does not spill out. 3. Disconnect the catheter tube from the drainage tube at the connection valve. Do not let the tubes touch any surface. 4. Clean the end of the catheter tube with an alcohol wipe. Use a different alcohol wipe to clean the end of the drainage tube. 5. Connect the catheter tube to the drainage tube of the clean drainage bag. 6. Attach the new bag to the leg with adhesive tape or a leg strap. Avoid attaching the new bag too tightly. 7. Place a cap on the drainage bag not in use and store in a clean towel. SEEK MEDICAL CARE IF: Your urine is cloudy or smells. Your catheter starts to leak. Your catheter falls out or is pulled out. You have pain, swelling, redness, or pus where the catheter enters the body. You have pain in the abdomen, legs, lower back, or bladder. You have a fever of 100.4 F (38 C) or higher You see pink, red, dark, coffee colored, or pus-like urine. You have nausea, vomiting, or chills. You are not feeling better in 2 to 3 days or you are feeling worse. You are not draining urine into the bag or your bladder feels full. MAKE SURE YOU: Understand the reason you have the catheter. Understand and follow these instructions to care for the catheter. Will watch your condition. Drink 6-8 glasses of water or liquids per day to keep your urine clear. Avoid Caffeinated drinks. They can irritate the bladder and cause bladder spasms. Keep your follow up appointments and call with any concerns. Follow Up Care 05/02/2025 10:27:55 With:Ailyn DUNN Address: [address] [place] [id number] [address] (1) When: Unknown Comments:Keep scheduled appointment [facility] 05-27-2025 Note Patient Education Custom Rezu Post-Procedure Instructions General Recommendations 1. Drink some extra fluids (water preferred) for the first few days following the procedure. Avoid alcohol and caffeine until your irritative symptoms have resolved. 2. Take the medication as prescribed by your doctor. Usually this will include an antibiotic, pain medication or antispasmodic if needed. 3. Avoid lifting heavy objects (>10 lbs) or excessive straining as this may cause bleeding in the first week after surgery. 4. Catheter instructions: ??? You will go home with a Chris catheter attached to a catheter bag. ??? Follow your doctor???s instructions. 5. You may resume your normal diet. Common Treatment Related Symptoms The following are common treatment related signs and symptoms that you may experience after the procedure. They may also occur following removal of the catheter. After the procedure, your general urinary symptoms may temporarily worsen and then gradually improve. 1. Blood in the Urine. It is common to see some blood in the urine for 1 to 2 weeks. Limit any physical activities and drink some extra water to flush the bladder but you do not need to drink excessively or be alarmed. If you think the bleeding is excessive or you are having trouble urinating, call the number below. 2. Painful Urination. It is common to have some pain or burning with urination for 1 to 2 weeks. It should gradually improve. If it persists or starts to worsen, call the number below. 3. Slow Urinary Stream. After the procedure, swelling of the prostate occurs which may or may not make the urinary stream weaker. This should gradually improve. If you are having a lot of difficulty trying to urinate or cannot urinate, call your doctor. 4. Urinary Urgency, Frequency or Leakage. You may experience frequency and/or a strong urge to urinate while the prostate heals. Sometimes, you may find the urge is so strong that it is difficult to hold your urine and leakage can occur. 6. Blood in the Semen. This may occur up to several weeks following the procedure. The semen may have red or a ???gonzales??? color. This condition will almost always resolve without any treatment. You should not be alarmed. Frequently Asked Questions Your Treating Doctor may override these recommendations. You should follow his/her instructions. 1. When can I resume normal physical activities? You may resume your daily activities immediately. You should limit vigorous workouts such as bike riding, running, treadmills, and heavy weight lifting for the first week. If you experience any bleeding, limit your activities and increase your water intake. 2. When can I resume sexual activity? In general, once you do not see any blood in the urine you may resume sexual activity. You may experience blood in the semen as described in the ???Common Treatment Related Symptoms??? section. 3. When can I resume my medications including blood thinners? In general, you should continue with any of your regular medications but check with your doctor. Typically, you can resume any blood thinners immediately post procedure but check with your doctor. 4. When can I go back to work? In general, you can return to work the following day. If you are taking pain medication (narcotics) or have a physical job (lifting, construction work, etc.), check with your doctor. 5. When can I have an alcoholic beverage? You should avoid any alcohol until your irritative symptoms have resolved, typically 1-2 weeks. Alcohol is a bladder irritant and can worsen your symptoms. You should also follow the instructions regarding alcohol intake on the labels of your prescription medication. Contact your Doctor Immediately If you experience: 1. Fever (oral temperature ? 101?F), chills ??? may be signs of an infection. 2. Inability to urinate. 3. Foul smelling or cloudy urine. 4. While there may be some pain related to the procedure, it is usually not severe. If you are experiencing severe pain or any condition you think may be serious, call your doctor. 5. If unable to contact your physician and you feel it is an emergency, go to the nearest emergency room or call 911. Chris Catheter Care, Male A Chris catheter is a soft, flexible tube that is placed into the bladder to drain urine. The catheter has a balloon to hold it inside the bladder. A Chris catheter may be inserted if: ??? You leak urine or are not able to control when you urinate (urinary incontinence). ??? You are not able to urinate when you need to (urinary retention). ??? You had prostate surgery or surgery on the genitals. ??? You have certain medical conditions, such as multiple sclerosis, dementia, or a spinal cord injury. To Prevent Infection: 1. Wash your hands with soap and water before and after handling your catheter. 2. Using mild soap and warm water on a clean washcloth; twice a day. ??? Clean the area on your body closest (more content not included)... [facility] 04-30-2025 Hospital Discharg e instructions Patient Education 04/30/2025 08:34:53 Cystoscopy Cystoscopy Cystoscopy is a procedure that is used to help diagnose and sometimes treat conditions that affect the lower urinary tract. The lower urinary tract includes the bladder and the urethra. The urethra is the tube that drains urine from the bladder. Cystoscopy is done using a thin, tube-shaped instrument with a light and camera at the end (cystoscope). The cystoscope may be hard or flexible, depending on the goal of the procedure. The cystoscope is inserted through the urethra, into the bladder. Cystoscopy may be recommended if you have: Urinary tract infections that keep coming back. Blood in the urine (hematuria). An inability to control when you urinate (urinary incontinence) or an overactive bladder. Unusual cells found in a urine sample. A blockage in the urethra, such as a urinary stone. Painful urination. An abnormality in the bladder found during an intravenous pyelogram (IVP) or CT scan. Cystoscopy may also be done to remove a sample of tissue to be examined under a microscope (biopsy). Tell a health care provider about: Any allergies you have. All medicines you are taking, including vitamins, herbs, eye drops, creams, and zlri-amu-cfroruo medicines. Any problems you or family members have had with anesthetic medicines. Any blood disorders you have. Any surgeries you have had. Any medical conditions you have. Whether you are or may be . What are the risks? Generally, this is a safe procedure. However, problems may occur, including: Infection. Bleeding. Allergic reactions to medicines. Damage to other structures or organs. What happens before the procedure? Medicines Ask your health care provider about: Changing or stopping your regular medicines. This is especially important if you are taking diabetes medicines or blood thinners. Taking medicines such as aspirin and ibuprofen. These medicines can thin your blood. Do not take these medicines unless your health care provider tells you to take them. Taking mmnv-ylr-ndsakml medicines, vitamins, herbs, and supplements. Tests You may have an exam or testing, such as: X-rays of the bladder, urethra, or kidneys. CT scan of the abdomen or pelvis. Urine tests to check for signs of infection. General instructions Follow instructions from your health care provider about eating or drinking restrictions. Ask your health care provider what steps will be taken to help prevent infection. These steps may include: ?Washing skin with a germ-killing soap. ?Taking antibiotic medicine. Plan to have a responsible adult take you home from the hospital or clinic. What happens during the procedure? You will be given one or more of the following: ?A medicine to help you relax (sedative). ?A medicine to numb the area (local anesthetic). The area around the opening of your urethra will be cleaned. The cystoscope will be passed through your urethra into your bladder. Germ-free (sterile) fluid will flow through the cystoscope to fill your bladder. The fluid will stretch your bladder so that your health care provider can clearly examine your bladder will. Your doctor will look at the urethra and bladder. Your doctor may take a biopsy or remove stones. The cystoscope will be removed, and your bladder will be emptied. The procedure may vary among health care providers and hospitals. What can I expect after the procedure? After the procedure, it is common to have: Some soreness or pain in your abdomen and urethra. Urinary symptoms. These include: ?Mild pain or burning when you urinate. Pain should stop within a few minutes after you urinate. This may last for up to 1 week. ?A small amount of blood in your urine for several days. ?Feeling like you need to urinate but producing only a small amount of urine. Follow these instructions at home: Medicines Take khwv-ism-ntswavn and prescription medicines only as told by your health care provider. If you were prescribed an antibiotic medicine, take it as told by your health care provider. Do not stop taking the antibiotic even if you start to feel better. General instructions Return to your normal activities as told by your health care provider. Ask your health care provider what activities are safe for you. If you were given a sedative during the procedure, it can affect you for several hours. Do not drive or operate machinery until your health care provider says that it is safe. Watch for any blood in your urine. If the amount of blood in your urine increases, call your health care provider. Follow instructions from your health care provider about eating or drinking restrictions. If a tissue sample was removed for testing (biopsy) during your procedure, it is up to you to get your test results. Ask your health care provider, or the department that is doing the test, when your results will be ready. Drink enough fluid to keep your urine pale yellow. Keep all follow-up visits. This is important. Contact a health care provider if: You have pain that gets worse or does not get better with medicine, especially pain when you urinate. You have trouble urinating. You have more blood in your urine. Get help right away if: You have blood clots in your urine. You have abdominal pain. You have a fever or chills. You are unable to urinate. Summary Cystoscopy is a procedure that is used to help diagnose and sometimes treat conditions that affect the lower urinary tract. Cystoscopy is done using a thin, tube-shaped instrument with a light and camera at the end. After the procedure, it is common to have some soreness or pain in your abdomen and urethra. Watch for any blood in your urine. If the amount of blood in your urine increases, call your health care provider. If you were prescribed an antibiotic medicine, take it as told by your health care provider. Do not stop taking the antibiotic even if you start to feel better. This information is not intended to replace advice given to you by your health care provider. Make sure you discuss any questions you have with your health care provider. Document Revised: 07/20/2022 Document Reviewed: 06/18/2021 Info Patient Education 2023 [employer]. Follow Up Care 04/29/2025 13:02:38 With:SHAUN SHEETS, Ailyn Dee, URL Address: [facility] [address], [place] [address]- When: Unknown [facility] 04-30-2025 Note Patient Education Urology Cystoscopy Cystoscopy is a procedure that is used to help diagnose and sometimes treat conditions that affect the lower urinary tract. The lower urinary tract includes the bladder and the urethra. The urethra is the tube that drains urine from the bladder. Cystoscopy is done using a thin, tube-shaped instrument with a light and camera at the end (cystoscope). The cystoscope may be hard or flexible, depending on the goal of the procedure. The cystoscope is inserted through the urethra, into the bladder. Cystoscopy may be recommended if you have: ??? Urinary tract infections that keep coming back. ??? Blood in the urine (hematuria). ??? An inability to control when you urinate (urinary incontinence) or an overactive bladder. ??? Unusual cells found in a urine sample. ??? A blockage in the urethra, such as a urinary stone. ??? Painful urination. ??? An abnormality in the bladder found during an intravenous pyelogram (IVP) or CT scan. Cystoscopy may also be done to remove a sample of tissue to be examined under a microscope (biopsy). Tell a health care provider about: ??? Any allergies you have. ??? All medicines you are taking, including vitamins, herbs, eye drops, creams, and pjbq-cuk-ndouqnv medicines. ??? Any problems you or family members have had with anesthetic medicines. ??? Any blood disorders you have. ??? Any surgeries you have had. ??? Any medical conditions you have. ??? Whether you are or may be . What are the risks? Generally, this is a safe procedure. However, problems may occur, including: ??? Infection. ??? Bleeding. ??? Allergic reactions to medicines. ??? Damage to other structures or organs. What happens before the procedure? Medicines Ask your health care provider about: ??? Changing or stopping your regular medicines. This is especially important if you are taking diabetes medicines or blood thinners. ??? Taking medicines such as aspirin and ibuprofen. These medicines can thin your blood. Do not take these medicines unless your health care provider tells you to take them. ??? Taking oaqv-dub-epbjtaa medicines, vitamins, herbs, and supplements. Tests You may have an exam or testing, such as: ??? X-rays of the bladder, urethra, or kidneys. ??? CT scan of the abdomen or pelvis. ??? Urine tests to check for signs of infection. General instructions ??? Follow instructions from your health care provider about eating or drinking restrictions. ??? Ask your health care provider what steps will be taken to help prevent infection. These steps may include: ? Washing skin with a germ-killing soap. ? Taking antibiotic medicine. ??? Plan to have a responsible adult take you home from the hospital or clinic. What happens during the procedure? You will be given one or more of the following: ? A medicine to help you relax (sedative). ? A medicine to numb the area (local anesthetic). ??? The area around the opening of your urethra will be cleaned. ??? The cystoscope will be passed through your urethra into your bladder. ??? Germ-free (sterile) fluid will flow through the cystoscope to fill your bladder. The fluid will stretch your bladder so that your health care provider can clearly examine your bladder will. ??? Your doctor will look at the urethra and bladder. Your doctor may take a biopsy or remove stones. ??? The cystoscope will be removed, and your bladder will be emptied. The procedure may vary among health care providers and hospitals. What can I expect after the procedure? After the procedure, it is common to have: ??? Some soreness or pain in your abdomen and urethra. ??? Urinary symptoms. These include: ? Mild pain or burning when you urinate. Pain should stop within a few minutes after you urinate. This may last for up to 1 week. ? A small amount of blood in your urine for several days. ? Feeling like you need to urinate but producing only a small amount of urine. Follow these instructions at home: Medicines ??? Take jvip-ruq-hazfqxg and prescription medicines only as told by your health care provider. ??? If you were prescribed an antibiotic medicine, take it as told by your health care provider. Do not stop taking the antibiotic even if you start to feel better. General instructions ??? Return to your normal activities as told by your health care provider. Ask your health care provider what activities are safe for you. ??? If you were given a sedative during the procedure, it can affect you for several hours. Do not drive or operate machinery until your health care provider says that it is safe. ??? Watch for any blood in your urine. If the amount of blood in your urine increases, call your health care provider. ??? Follow instructions from your health care provider about eating or drinking restrictions. ??? If a tissue sample was removed for testing (biopsy) during your (more content not included)... [facility] 04-22-2025 Evaluation note Diagnosis Onset Date Resolution Benign prostatic hyperplasia with lower urinary tract symptoms acute April 22, 2025 2:15pm Essential (primary) hypertension acute April 22, 2025 2:15pm ASHD (arteriosclerotic heart disease) acute June 23, 2025 11:04am Essential (primary) hypertension acute June 23, 2025 11:04am Hypercholesterolemia acute Augu 2024 11:04am Lumbar spondylosis acute June 23, 2025 11:04am Nicotine addiction acute June 23, 2025 11:04am Obstructive sleep apnea (adult) (pediatric) acute June 23, 2025 11:04am Screening PSA (prostate specific antigen) acute June 23 11:04am Medicare annual wellness visit, subsequent noneactive June 23 11:04am [facility] Work Phone: 1(798) 666-368705-30-2025 History of Present illness Narrative* Sabino Dexter MD - 04/18/2025 8:40 AM EDT Images from the original note were not included. Subjective Patient ID: Seth Bell is a 69 y.o. male who [...] Auscultation: regular rate and rhythm; Patient ID: Seth Bell is a 69 y.o. male. Procedures [...] will check an audio. documented in this encounterFreeman Orthopaedics & Sports [id number] Chief complaint+Reason for visit Narrative* Chief Complaint Admit Date Referral Order April 08, 2025 12:26 pm difficulty urinating April 22, 2025 2:15 pm wellness June 23, 2025 11: 04am Reason for Visit Admit Date Benign prostatic hyperplasia with lower urinary tract symptoms April 22, 2025 2:15pm Essential (primary) hypertension April 2:15pm ASHD (arteriosclerotic heart disease) Au 2024 11:04am Essential (primary) hypertension June 23, 2025 11:04am Hypercholesterolemia June 23, 2025 11 :04am Lumbar spondylosis June 23, 2025 11: 04am Nicotine addiction June 23, 2025 11: 04am Obstructive sleep apnea (adult) (pediatr ic) June 23, 2025 11:04am Screening PSA (prostate specific antigen ) June 23, 2025 11:04am Medicare annual wellness visit, subseque nt June 23, 2025 11:04am [facility] Work Phone: 1(475) 208-593403-31-2025 NoteUT Cardiology - [facility] Subjective Seth Bell is a 69 y.o. year old male patient being seen for Hypertension, Hyperlipidemia, and Coronary Artery Disease Patient Active Problem List Diagnosis Coronary artery disease involving [place] coronary artery of [place] heart without angina pectoris Essential hypertension Mixed hyperlipidemia Pre-operative cardiovascular examination, high risk surgery Umbilical hernia Sensorineural hearing loss Retrograde ejaculation Retention of urine Proteinuria Primary osteoarthritis of left hip Otosclerosis Obesity Nocturia Microscopic hematuria Malaise and fatigue Lumbar radiculopathy Hypogonadism in male Hip pain High prostate specific antigen (PSA) Hematuria Former smoker Erectile dysfunction Benign prostatic hyperplasia with urinary obstruction Anticoagulated Angina pectoris Weakness of limb Cervical spondylosis with myelopathy Abnormal findings on diagnostic imaging of skull and head, not elsewhere classified Osteoarthritis of right knee BMI 29.0-29.9,adult Depression Diverticulosis Familial hypercholesterolemia GERD (gastroesophageal reflux disease) Lipoma of spermatic cord CYNTHIA (obstructive sleep apnea) Overweight Right groin pain RLS (restless legs syndrome) Screening for malignant neoplasm of colon Seasonal allergic rhinitis HPI Patient has history of coronary artery disease, status post PTCA of LAD in 2007 and had mild coronary artery disease per cardiac catheterization 09/09/2010, history of hypertension and hyperlipidemia and sleep apnea He is here today for follow-up visit. He states that he has been doing well. He walks every day about 1 mile. Denies any chest pain or shortness of breath at rest or with exertion. He denies orthopnea or paroxysmal nocturnal dyspnea or dizziness or palpitations or legs edema or leg discomfort on exertion He states that his blood pressure has been lately in the 150s and he just saw his PCP at the end of last week and amlodipine benazepril was increased to 10-20 mg daily. He is going to start it tomorrow. He did not pay attention to his pulse. His heart rate was noted to be slow 46 bpm today however he denies any symptoms of tiredness or dizziness or shortness of breath ROS All systems were reviewed and they were negative except for the positive findings noted above in the history Past Medical History: Diagnosis Date Coronary artery disease Hyperlipidemia Hypertension Sleep apnea Past Surgical History: Procedure Laterality Date BACK SURGERY CARDIAC CATHETERIZATION CORONARY STENT PLACEMENT NECK SURGERY Family History Problem Relation Name Age of Onset Dementia Mother Social History Tobacco Use Smoking status: Former Types: Cigarettes Substance Use Topics Drug use: Yes Types: Marijuana Allergies No Known Allergies Medications Current Outpatient Medications: amLODIPine-benazepriL (Lotrel) 5-20 mg capsule, Take 1 capsule by mouth in the morning., Disp: , Rfl: aspirin 81 mg EC tablet, Take 81 mg by mouth in the morning., Disp: , Rfl: atorvastatin (Lipitor) 80 mg tablet, in the evening., Disp: , Rfl: buPROPion XL (Wellbutrin XL) 300 mg 24 hr tablet, Take 450 mg by mouth 1 (one) time each day at the same time., Disp: , Rfl: Cialis 20 mg tablet, Take 20 mg by mouth., Disp: , Rfl: cyclobenzaprine (Flexeril) 10 mg tablet, cyclobenzaprine 10 mg tablet TAKE 1 TABLET BY MOUTH EVERY DAY AT BEDTIME, Disp: , Rfl: finasteride (Proscar) 5 mg tablet, finasteride 5 mg tablet TAKE 1 TABLET BY MOUTH DAILY, Disp: , Rfl: metoprolol succinate XL (Toprol-XL) 50 mg 24 hr tablet, metoprolol succinate ER 50 mg tablet,extended release 24 hr Take 1 tablet by mouth daily, Disp: , Rfl: pantoprazole (ProtoNix) 40 mg EC tablet, Take 40 mg by mouth in the morning and at bedtime., Disp: , Rfl: tamsulosin (Flomax) 0.4 mg 24 hr capsule, Take 0.4 mg by mouth 2 times daily., Disp: , Rfl: traZODone (Desyrel) 50 mg tablet, trazodone 50 mg tablet TAKE 1 TABLET BY MOUTH EVERY DAY AT BEDTIME, Disp: , Rfl: ondansetron ODT (Zofran-ODT) 4 mg disintegrating tablet, DISSOLVE 1 (ONE) TABLET ON THE TONGUE EVERY 8 HOURS FOR 5 DAYS, Disp: , Rfl: Objective Visit Vitals BP 131/76 (BP Location: Left arm, Patient Position: Sitting) Pulse (!) 46 Ht 1.778 m (5' 10 ) Wt 83.5 kg (184 lb) SpO2 96% BMI 26.40 kg/m??? Smoking Status Former BSA 2.03 m??? Physical exam: GENERAL: alert and oriented x3, well developed, in no acute distress. HEAD: atraumatic, normocephalic. EYES: JOSEFINA, EOMI. NECK: trachea midline, no JVD present, no carotid bruits present. CARDIAC: S1, S2 present. RRR. No murmur, rubs, or gallops. RESPIRATORY: CTAB, no increased effort of breathing, no rales, rhonchi, or wheezing. ABDOMEN: soft, nontender, nondistended. EXTREMITIES: no lower extremity edema. No rash/skin discoloration present. NEURO: strengt (more content not included)...[facility] 02-14-2025 Evaluation note* Diagnosis Onset Date Resolution Status Admit Date ASHD (arteriosclerotic heart disease) acute February 14, 2025 2:32pm Chest pain acute February 14 2:32pm Essential (primary) hypertension acu te February 14, 2025 2:32pm [facility] Work Phone: [phone]) 598-458502-03-2025 Hospital Discharge instructions Patient Education 12/23/2024 15:12:50 Prostate Cancer Screening Prostate Cancer Screening Prostate cancer screening is testing that is done to check for the presence of prostate cancer in men. The prostate gland is a walnut-sized gland that is located below the bladder and in front of therectum in males. The function of the prostate is to add fluid to semen during ejaculation. Prostatecancer is one of the most common types of cancer in men. Who should have prostate cancer screening? Screening recommendations vary based on age and other risk factors, as well as between the professional organizations who make the recommendations. In general, screening is recommended if: You are age 50 to 70 and have an average risk for prostate cancer. You should talk with your healthcare provider about your need for screening and [...] diagnosed with prostate cancer. The risk is higherif your family member's cancer occurred at an early age or if you have multiple family members withprostate cancer at an early age. ?Being a [...] is a blood test called the prostate-specific antigen(PSA) test. PSA is a protein that is [...] treatment? Where to find more information The [place] [employer]: www.cancer.org [place] [employer]: www.auanet.org Contact a health care [...] the recommended screening test for prostate cancer, butit has associated risks. Discuss the risks and [...] provider. Document Revised: 05/02/2022 Document Reviewed: 05/02/2022 Info Patient Education 2023 Ryan. Follow Up Care 01/01/2024 13:07:08 With:SHAUN SHEETS, Ailyn Dee, URL Address: [facility] [address] [place] [address]- [phone] When: Unknown Comments:1 yr w/ PSA [facility] [place] 02-03-2025 NotePatient Education Oncology Prostate Cancer Screening Prostate cancer screening is testing that is done to check for the presence of prostate cancer in men. The prostate gland is a walnut-sized gland that is located below the bladder and in front of therectum in males. The function of the prostate is to add fluid to semen during ejaculation. Prostatecancer is one of the most common types of cancer in men. Who should have prostate cancer screening? Screening recommendations vary based on age and other risk factors, as well as between the professional organizations who make the recommendations. In general, screening is recommended if: ??? You are age 50 to 70 and [...] have a 10- to 15-year life expectancy. ??? You are younger than age 50, and [...] In general, screening is not recommended if: ??? You are younger than age 40. ??? You are between the ages of 40 and 49 and you have no risk factors. ??? You are 70 years of age or [...] is a blood test called the prostate-specific antigen(PSA) test. PSA is a protein that is made in the prostate. As you age, your prostate naturally produces more PSA. Abnormally high PSA levels may be caused by: ??? Prostate cancer. ??? An enlarged prostate that is not caused by cancer (benign prostatic hyperplasia, or BPH). This condition is very common in older men. ??? A prostate gland infection (prostatitis) or urinary tract infection. ??? Certain medicines such as male hormones (like [...] you may need more tests, such as: ??? A physical exam to check the size of your prostate gland, if not done as part of screening. ??? Blood and imaging tests. ??? A procedure to remove tissue samples from your prostate gland for testing (biopsy). This is theonly way to know for certain if you have prostate cancer. What are the benefits of prostate cancer screening? Screening can help to identify cancer at an early stage, before symptoms start and when the cancer can be treated more easily. ??? There is a small chance that screening [...] Questions to ask your health care provider ??? When should I start prostate cancer screening? What is my risk for prostate cancer? How often do I need screening? What type of screening tests do I need? How do I get my test results? What do my results mean? Do I need treatment? Where to find more information ??? The [place] [employer]: www.cancer.org ??? [place] [employer] Association: www.auanet.org Contact a health care provider if: ??? You have difficulty urinating. ??? You have pain when you urinate or ejaculate. ??? You have blood in your urine or semen. ??? You have pain in your back or in the area of your prostate. Summary ??? Prostate cancer is a common type of cancer in men. The prostate gland (more content not included)...[facility]11-20-2024 History of Present illness Narrative* Sarah DO Neva - 10/09/2024 11:00 AM EST General Surgery H&P Seth Lackey Aarbella 1955 Seth Bell is a 68 y.o. [...] Tobacco Use: Medium Risk (06/01/2023) Received from [facility] Patient History Smoking Tobacco Use: Former [...] to work with lifting restrictions mentioned above. Foll ow up as needed. Thank you, Margareth Hooks DO documented in this encounterFreeman Orthopaedics & Sports [id number] History of Present illness Narrative* Sarah Hooks DO - 09/09/2024 9:30 AM EDT General Surgery H&P Seth Bell 1955 Seth [...] Tobacco Use: Medium Risk (06/01/2023) Received from [facility] Patient History Smoking Tobacco Use: Former [...] you, Margareth Hooks DO documented in this encounterFreeman Orthopaedics & Sports [id number] NoteGeneral Surgery Office/Clinic Note Chief Complaint consultation for inguinal hernia [...] htn, hypercholesterolemia, lumbar radiculopathy, GERD, CYNTHIA, referred forright groin pain, possible hernia; patient was lifting [...] swallowing difficulties, no hearing loss, no ear infection(s),no nose bleeds. Cardiovascular: normal blood pressure, no [...] E&M of Est. Patient High 40-54 Min 33973 3. 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 Patient High 40-54 Min 77764 Follow-up No qualifying data available Problem List/Past [...] Screening for malignant neoplasm (more content not included)...[facility]:Result Comment: Electronically Signed By: ELY SHEETS, Bonifacio Duarte\Date and Time Signed: 06/27/24 14:57 [id number] NotePatient here for 1 year follow up CAD, hypertension, and hyperlipidemia. Denies chest pain, SOB, palpitations, and lightheadedness/syncope. He was admitted in May 2023 for upper GI bleed. Doing very well since then.[facility]05-01-2024 NoteUT Cardiology Note HPI Chief Complaint: Seth Bell [...] discussed target range. Coronary artery disease involving [place] coronary artery of [place] heart without angina pectoris Patient adamantly denies [...] -Follow-up in cardiology clinic Joaquim Chaudhary MD [place] [facility] Discharge instructions Patient Education 01/01/2024 12:51:39 Prostate Cancer Screening Prostate Cancer Screening Prostate cancer screening is testing that is done to check for the presence of prostate cancer in men. The prostate gland is a walnut-sized gland that is located below the bladder and in front of therectum in males. The function of the prostate is to add fluid to semen during ejaculation. Prostatecancer is one of the most common types of cancer in men. Who should have prostate cancer screening? Screening recommendations vary based on age and other risk factors, as well as between the professional organizations who make the recommendations. In general, screening is recommended if: You are age 50 to 70 and have an average risk for prostate cancer. You should talk with your healthcare provider about your need for screening and [...] diagnosed with prostate cancer. The risk is higherif your family member's cancer occurred at an early age or if you have multiple family members withprostate cancer at an early age. ?Being a [...] is a blood test called the prostate-specific antigen(PSA) test. PSA is a protein that is [...] treatment? Where to find more information The [place] [employer]: www.cancer.org [place] [employer] Association: www.auanet.org Contact a health care [...] the recommended screening test for prostate cancer, butit has associated risks. Discuss the risks and [...] provider. Document Revised: 05/02/2022 Document Reviewed: 05/02/2022 Info Patient Education 2022 Ryan. Follow Up Care 12/05/2022 10:43:19 With:SHAUN SHEETS, Ailyn Dee, URL Address: [facility] [address] [place] [address] [phone] When:Within 1 Year(s) Comments:w/ PSA [facility] 01-08-2024 Evaluation note* Encounter Date Diagnosis Assessment Notes Treatment Notes Treatment Clinical Notes Nov, COVID-19 (ICD-10 - U07.1) Instructed [...] places for complete 10 days Nov, ASHD (arteriosclerotic heart disease) (ICD-10 - I25.10) Increases risk for more severe infection [employer] Other 01-08-2024 Evaluation note* Encounter Date Diagnosis Assessment Notes Treatment Notes Treatment Clinical Notes Nov, COVID-19 (ICD-10 - U07.1) [employer] Other 11-14-2023 Evaluation note* Encounter Date Diagnosis [...] normal. Active lifestyle, looking forward to hunting. [employer] Other 11-02-2023 Evaluation note* Encounter Date Diagnosis Assessment Notes Treatment Notes Treatment Clinical Notes Sep, Acute blood loss anemia (ICD-10 - D62) [employer] Other 09-28-2023 Evaluation note* Encounter Date Diagnosis Assessment Notes Treatment Notes Treatment Clinical Notes Jul, ASHD (arteriosclerot ic heart disease) (ICD-10 - I25.10) Jul, Pure hypercholestero lemia (ICD-10 - E78.00) [employer] Other 09-21-2023 Evaluation note* Encounter Date Diagnosis Assessment Notes Treatment Notes Treatment Clinical Notes Jul, Primary hypertension (ICD-10 - I10) [employer] Other 07-20-2023 Evaluation note* Encounter Date Diagnosis [...] bleed, resume after holding for 2 wks [employer] Other 07-17-2023 Evaluation note* Encounter Date Diagnosis Assessment Notes Treatment Notes Treatment Clinical Notes May, Acute blood loss anemia (ICD-10 - D62) [employer] Other 07-14-2023 Evaluation note* Encounter Date Diagnosis Assessment Notes Treatment Notes Treatment Clinical Notes May, Nausea (ICD-10 - R11.0) [employer] Other 07-13-2023 Evaluation note* Encounter Date Diagnosis Assessment Notes Treatment Notes Treatment Clinical Notes May, Bilateral carotid bruits (ICD-10 - R09.89) [employer] Other 07-13-2023 History of Present illness Narrative* Kayley Lisa LPN - 06/01/2023 11:40 AM EDT Ortho Nurse - Established Patient Intake Room#: 5 Date: 06/01/2023 11:43 AM Patient: Seth Bell MR#: [id number] : 1955 Age: 67 y.o. 3 wks [...] Laterality: Right; Surgeon: Lazarus Coronado MD; Location: [facility] OR ARTHROPLASTY HIP TOTAL ANTERIOR APPROACH Left 10/10/2022 Laterality: Left; Surgeon: Lazarus Coronado MD; Location: [facility] OR BACK SURGERY 2016 x2 NECK SURGERY [...] by Nasal route once for 1 dose. [place] into the nose as directed. Call 911. [...] by Nasal route once for 1 dose. [place] into the nose as directed. Call 911. [...] has No Known Allergies. * Mone Watson APRN-[employer]IVEST[employer] SALES REPRESENTATIVE - 06/01/2023 11:40 AM EDT HPI: Seth [...] pertinent portions of the clinical business support associate documentation was reviewed and agree. PRINCE Yo Ortho Nurse - Established Patient Intake Room#: 5 Date: 06/01/2023 11:43 AM Patient: Seth Bell MR#: [id number] : 1955 Age: 67 y.o. 3 wks s/p R TKA. He states he is doing well and having very minimal pain in his knee. Uses his walker for distance only. He has had some bruising and discomfort on his lower rdz area. Referring Physician: Gerardo, Mone, GEOMETRICIAN-LIVESTOCK SALES REPRESENTATIVE Insurance: Payor: MEDICARE / Plan: MEDICARE A [...] Laterality: Right; Surgeon: Lazarus Coronado MD; Location: [facility] OR ARTHROPLASTY HIP TOTAL ANTERIOR APPROACH Left 10/10/2022 Laterality: Left; Surgeon: Lazarus Coronado MD; Location: [facility] OR BACK SURGERY 2016 x2 NECK SURGERY [...] by Nasal route once for 1 dose. [place] into the nose as directed. Call 911. [...] by Nasal route once for 1 dose. [place] into the nose as directed. Call 911. [...] has No Known Allergies. documented in this [facility]06-20-2023 Miscellaneous Notes* Nursing Notes - Keira [...] by Keira GUTIERREZ, unable to scan in [facility] due to connectivity issues. * Op Note - Lazarus Coronado MD - 05/09/2023 8:25 AM EDT DATE OF PROCEDURE: May 08, 2023 ATTENDING PHYSICIAN: Lazarus Coronado M.D. FIRST AID NURSE: Mone Watson CNP PREOPERATIVE DIAGNOSIS: Severe right [...] I referenced this against the flexion gap, Lysite's line, and the epicondylar axis as well. I then used an anterior referencing stylus and sized it to a size 7. At this point then, the 4:1 cutting block was pinned into place, and all four cuts were performed. The flexion space was opened up with the lamina plaster mechanic, and the medial and lateral menisci were [...] of motion and anatomic tracking at the [place] patella. Thus, the patella itself was flipped [...] without the assistance of a skilled surgical brace maker. A surgical brace maker was medically necessary for positioning, retraction and [...] OPERATIVE/PROCEDURE NOTE Seth Bell 67 y.o. male [id number] SURGEON Surgeon(s) and Role: * Lazarus Coronado MD - Primary FIRST AID NURSE PRINCE Yo ANESTHESIOLOGIST BRANCH MAKER: MERRY Steele; MERRY Hutchinson SURGICAL STAFF Copy Manager: Shelley Brown RN; Debi Wiggins RN Nurse Practitioner: PRINCE Yo Scrub Person: Sarita Lizama RN Hazardous Waste Material Technician: Mahesh Armstrong LPN PROCEDURE PERFORMED Procedure(s) (LRB): [...] Implant Name Type Inv. Item Serial No. Vp Product Marketing Lot No. LRB No. Used Action PALACOS R 1 X 40 US - [id number] PALACOS R 1 X 40 US [id number] Right 2 Implanted PATELLA - KNEE - [id number] PATELLA - KNEE [id number] Right 1 Implanted FEMUR - KNEE - [id number] FEMUR - KNEE [id number] Right 1 Implanted Attune Knee System Tibial Base Fixed Bearing DEPUY [id number] Right 1 Implanted INSERT - KNEE - [id number] INSERT - KNEE [id number] Right 1 Implanted SPECIMENS ID Type Source Tests Collected by Time Destination 1 : Bone RIght Knee Permanent TISSUE SURGICAL PATHOLOGY REQUEST Lazarus Coronado MD 05/08/2023 0914 Mone WatsonSUKH-CABRERA May 08, 2023 10:20 AM documented in this [facility] AdolescentsPalmap [id number] Nurse Note* Nursing Notes - Keira Qiu RN - 05/09/2023 3:41 PM EDT Discharge instructions and education reviewed with pt and his daughter, education provided for dx and new medications, printed education given, denies any questions. Hemovac care reviewed. HOLLY hose, ABDs, and ice packs provided. Meds to beds with integrity seal intact provided. Trendmeon [id number] History of Present illness Narrative* Asa Malik, [...] Supine to Sit, Rehab Eval Level of [place]: Supine/Sit supervision Transfer Skill: Sit To Stand, Rehab Eval [place] (Sit-Stand Transfers) contact guard Physical Assist/Nonphysical Assist: Sit/Stand 1 person assist Weight-Bearing Restrictions: Sit/Stand weight-bearing as tolerated Assistive Device For Transfer: Sit/Stand 2 wheeled walker Gait Skills, PT Eval Level of [place]: Gait contact guard Physical Assist/Nonphysical Assist: Gait 1 person assist Weight-Bearing Restrictions: Gait weight-bearing as tolerated Assistive Device For Transfer: Gait 2 wheeled walker Gait Distance (125ft x2) Gait Analysis, PT Eval Gait Pattern Used swing-through gait Gait Deviations Identified (Gait) decreased win;decreased gait speed;decreased step length;decreased stride length Impairments Contributing To Gait Deviations impaired balance;pain;decreased ROM;decreased strength Stair Negotiation [place] Level: Stair Negotiation contact guard assist Physical [...] Patient to go to outpatient therapy at [facility] tomorrow at 4:30 pm. Patient informed of post-op follow up call tomorrow. Patient verbalizes understanding, he states that he has been very happy with his care and is complementary of the staff. He denies any other needs at this time. * Mone Watson, GEOMETRICIAN-LIVESTOCK SALES REPRESENTATIVE - 05/09/2023 7:21 AM EDT Total Joint Progress Note P O DAY # 1 PROCEDURE: r tka SUBJECTIVE: No new symptoms or complaints PAIN RATIN10 OBJECTIVE: Lab Results Component Value Date WBC [...] Equipment Available straight cane;wheeled walker;shower chair;elevated toilet seat;sock-aid;client representative;long-handled shoe horn;dressing stick;long handle sponge Cognitive Status [...] Supine to Sit, Rehab Eval Level of [place]: Supine/Sit stand-by assist Physical Assist/Nonphysical Assist: Supine/Sit 1 person assist Transfer Skill: Sit to Stand, Rehab Eval Level of [place]: Sit/Stand contact guard Physical Assist/Nonphysical Assist: Sit/Stand 1 person assist Weight-Bearing Restrictions: Sit/Stand weight-bearing as tolerated Assistive Device for Transfer: Sit/Stand wheeled walker Upper Body Dressing Level of [place] independent Physical Assist/Nonphysical Assist set-up required Lower Body Dressing Level of [place] maximum assist (25% patients effort) Physical Assist/Nonphysical Assist 1 person assist Toileting Level of [place] contact guard Physical Assist/Nonphysical Assist 1 person assist Grooming [place] Level (Grooming) wash face, hands;contact guard assist [...] as needed Therapist Information License # [id number] 1. Pt will complete LB dressing MOD [...] Laterality: Left; Surgeon: Lazarus Coronado MD; Location: [facility] ONT OR BACK SURGERY 2015 x2 NECK [...] Supine to Sit, Rehab Eval Level of [place]: Supine/Sit stand-by assist Physical Assist/Nonphysical Assist: Supine/Sit 1 person assist;verbal cues Transfer Skill: Sit To Stand, Rehab Eval [place] (Sit-Stand Transfers) contact guard Physical Assist/Nonphysical Assist: Sit/Stand 1 person assist;verbal cues Weight-Bearing Restrictions: Sit/Stand weight-bearing as tolerated Assistive Device For Transfer: Sit/Stand 2 wheeled walker Gait Skills, PT Eval Level of [place]: Gait contact guard Physical Assist/Nonphysical Assist: Gait [...] strength;impaired motor control;impaired postural control Stair Negotiation [place] Level: Stair Negotiation not tested Sensory Examination [...] PT to follow Therapist Information License # [id number] * Brittani Honeycutt RN - 05/08/2023 12:01 PM EDT Patient was assessed in [facility] [place] on 04/13/23. Met with patient, spouse and daughter for follow up after surgery to discuss discharge plan. Patient plans to return home with spouse and would to like go to outpatient therapy at [facility]. Patient has a wheeled walker and denies any equipmentneeds at this time. Nursing reports that the incision has been closed with dermabond with hemovac in place, will request a 3 week follow up appointment. Patient denies any other questions or needs atthis time. Referral information faxed to [facility] OP Therapy, appointment scheduled for 05/10/23 [...] (184 lb) 10/10/22 83.9 kg (185 lb) [place] body weight: 68.4 kg (150 lb 12.7 [...] Laterality: Left; Surgeon: Lazarus Coronado MD; Location: [facility] OR BACK SURGERY 2015 x2 NECK SURGERY [...] Dietitian, Licensed Dietitian 05/08/23 * Mone Watson APRN-LIVESTOCK SALES REPRESENTATIVE - 05/08/2023 10:20 AM EDT THIS PATIENT [...] afternoon appointment d/t transportation issues on Monday. [facility] contacted and appointment time changed. Will fax updated information to OP rehab after patient has had surgery. Will continue to follow up with patient and family for discharge needs. * Jazmyne Cardona LPN - 04/13/2023 11:54 AM EDT 04/13/23 1152 Referral Information Arrived From home or self-care Information Source Information Source patient Contact Information Director Integrated Name Brittani Honeycutt RN Case Manager's Living [...] with spouse and have OP therapy at [facility], phone number is [phone], patient prefers late morning appointment. Patient has a FW wheeled walker, in addition to raised toilet seat, railing and shower chair. Patient denies any other questions or needs at thistime. CM to continue to follow and assist with discharge plans. [facility] Nurse Note* Nursing Notes - Keira Qiu RN - 05/09/2023 11:57 AM EDT Assessment is complete and remains unchanged from previous at this time with any exceptions noted in the flowsheet. Patient denies further needs and is left with call light and personals in reach. [facility]* Nursing Notes - Lily Gill RN - 05/09/2023 11:42 AM EDT Patient is admitted to Med Surg floor [facility]06-20-2023 Nurse Note* Nursing Notes - Galilea Rodrigues [...] Medhat to be discharged home later today. [facility] Nurse Note* Nursing Notes - Diamond Alves RN - 05/09/2023 8:31 AM EDT Oxycodone 10 mg verified by this RN and administered to patient by Keira GUTIERREZ, unable to scan in [facility] due to connectivity issues. T [facility]06-20-2023 Surgery Postoperative evaluation and management note* Op Note - Lazarus Coronado MD - 05/09/2023 8:25 AM EDT DATE OF PROCEDURE: May 08, 2023 ATTENDING PHYSICIAN: Lazarus Coronado M.D. FIRST AID NURSE: Mone Watson CNP PREOPERATIVE DIAGNOSIS: Severe right [...] I referenced this against the flexion gap, Lysite's line, and the epicondylar axis as well. I then used an anterior referencing stylus and sized it to a size 7. At this point then, the 4:1 cutting block was pinned into place, and all four cuts were performed. The flexion space was opened up with the lamina plaster mechanic, and the medial and lateral menisci were [...] of motion and anatomic tracking at the [place] patella. Thus, the patella itself was flipped [...] without the assistance of a skilled surgical brace maker. A surgical brace maker was medically necessary for positioning, retraction and instrume ntation. [employer] Work Phone: 1(131) 623-248306-20-2023 Hospital course Narrative* Shahzad Whiting MD - [...] by Nasal route once for 1 dose. [place] into the nose as directed. Call 911. [...] per tablet Commonly known as: PERCOCET Follow-up: [facility] OP Therapy ext: [phone] Follow up on 05/10/2023 Outpatient therapy appointment scheduled for Monday at 4:30 pm, please arrive at 4:15 pm for theregistration process. Bring insurance cards and photo ID. Upcoming Appointments (up to five)-Some appointments for Medical Center outpatient clinics or diagnostic testing locations are not displayed below Provider Department Dept Phone 06/01/2023 11:40 AM Mone [facility] [phone] documented in this [facility]06-20-20[facility] Nurse Note* Nursing Notes - Denise [...] Call light and bedside table within reach. [facility] [employer] [id number] Nurse Note* Nursing Notes - Denise Treviño [...] Call light and bedside table within reach. [facility] [employer] [id number] Consult note* Shahzad Whiting MD - 05/08/2023 [...] Laterality: Left; Surgeon: Lazarus Coronado MD; Location: [facility] ONT OR BACK SURGERY 2016 x2 NECK [...] minutes total time. Shahzad Whiting MD 05/08/2023 [facility]06-19-2023 Consult note* Shahzad Whiting MD - [...] Laterality: Left; Surgeon: Lazarus Coronado MD; Location: [facility] OR BACK SURGERY 2015 x2 NECK SURGERY [...] Shahzad Whiting MD 05/08/2023 documented in this encounterK[facility]06-19-2023 Nurse Note* Nursing Notes - Keira Qiu RN - 05/08/2023 3:00 PM EDT Assessment is complete and remains unchanged from previous at this time with any exceptions noted in the flowsheet. Patient denies further needs and is left with call light and personals in reach. [facility]06-[facility] Nurse Note* Nursing Notes - [...] light and personals inreach, family at bedside. [facility]06-19-[facility] Nurse Note* Chyna Atkins RN - 05/08/2023 10:50 AM EDT Patient discharged from PACU. Patient transported via bed to room 3752. Bed in lowest position calllight within reach. No other complaints at this time. Report given to Keira GUTIERREZ. * Debi Wiggins RN - 05/08/2023 9:11 AM EDT OR 4 Temp: 66.0' Hum: 42.0% documented in this encounterK[facility]06-19-2023 Nurse Surgical operation note* Chyna Atkins RN - 05/08/2023 10:50 AM EDT Patient discharged from PACU. Patient transported via bed to room 3752. Bed in lowest position calllight within reach. No other complaints at this time. Report given to Keira GUTIERREZ. [facility]06-[facility] Hospital Discharge instructions* Discharge Instructions* [...] - 05/08/2023 10:46 AM EDT Contact Office ([phone]) if: > Total Knee ROM < 90 [...] Home Care, please call Dr. Coronado's nurse ([phone]) the morning after discharge with the recorded [...] be sent through Care Everywhere. * celecoxib (Mexican) * docusate (oral/rectal) (Mexican) * oxycodone (Mexican) documented in this encounterKet[facility]06-19-2023 Surgery Postoperative evaluation and management note* Brief Op Note - PRINCE Yo - 05/08/2023 10:19 AM EDT POST OPERATIVE/PROCEDURE NOTE Seth Bell 67 y.o. male [id number] SURGEON Surgeon(s) and Role: * Lazarus Coronado MD - Primary FIRST AID NURSE PRINCE Yo ANESTHESIOLOGIST BRANCH MAKER: MEAGAN SteeleBRANCH MAKER; MERRY Hutchinson SURGICAL STAFF Copy Manager: Shelley Brown RN; Debi Wiggins RN Nurse Practitioner: PRINCE Yo Scrub Person: Sarita Lizama RN Hazardous Waste Material Technician: Mahesh Armstrong LPN PROCEDURE PERFORMED Procedure(s) (LRB): [...] Implant Name Type Inv. Item Serial No. Vp Product Marketing Lot No. LRB No. Used Action PALACOS R 1 X 40 US - [id number] PALACOS R 1 X 40 US [id number] Right 2 Implanted PATELLA - KNEE - [id number] PATELLA - KNEE [id number] Right 1 Implanted FEMUR - KNEE - [id number] FEMUR - KNEE [id number] Right 1 Implanted Attune Knee System Tibial Base Fixed Bearing DEPUY [id number] Right 1 Implanted INSERT - KNEE - [id number] INSERT - KNEE [id number] Right 1 Implanted SPECIMENS ID Type Source Tests Collected by Time Destination 1 : Bone RIght Knee Permanent TISSUE SURGICAL PATHOLOGY REQUEST Lazarus Coronado MD 05/08/2023 0914 PRINCE Yo May 08, 2023 10:20 AM [facility]06[facility] Nurse Surgical operation note* Debi Wiggins RN - 05/08/2023 9:11 AM EDT OR 4 Temp: 66.0' Hum: 42.0% [facility]05-26-20[facility] Evaluation note* Encounter Date Diagnosis Assessment Notes Treatment Notes Treatment Clinical Notes March, Pre-operative examin [facility] (ICD-10 - Z01.818) Reviewed [...] knee (ICD-10 - M17.11) Scheduled for TKA [employer] Other 05-04-2023 History of Present illness Narrative* Sneha Busby LPN - 03/23/2023 10:00 AM EDT Ortho Nurse - Established Patient Intake Room#: 2--Visit today is a 4 month post-op check of Left MIKE (D/A)--10-10-22. His pain today is a 6. Has complaints of stiffness. Date: 03/23/2023 10:20 AM Patient: Seth Bell MR#: [id number] : 1955 Age: 67 y.o. Referring Physician: [...] a right total knee arthroplasty for optimal residential management. Patient is also here today for [...] joint space, subchondral sclerosis, osteophyte formation, and blks-nm-nhaf contact. AP hip and pelvis films demonstrate [...] of limb, and ultimately loss of life. assistant terminal manager expectations, risks and general implant survivorship were also discussed. Despite these risks, the patient would like to proceed with surgical planning. Today, we will initiate the pre- surgical process including nasal MRSA screening, scheduling an appointment for [facility] [place] and the potential surgical date, and reviewing [...] 03/23/2023 10:20 AM Patient: Seth Bell MR#: [id number] : 1955 Age: 67 y.o. Referring Physician: [...] Laterality: Left; Surgeon: Lazarus Coronado MD; Location: [facility] ONT OR BACK SURGERY 2015 x2 NECK [...] has No Known Allergies. documented in this [facility] Hospital Discharge instructions Patient Education 12/05/2022 [...] urethra. Follow these instructions at home: Take psoi-xfh-opwptwv and prescription medicines only as told by [...] 11/06/2006 Document Revised: 10/01/2019 Document Reviewed: 12/11/2017 Info Patient Education 2020 Ryan. Follow Up Care 12/03/2021 10:50:50 With:SHAUN SHEETS, Ailyn Dee, URL Address: [facility] [address] , [place] [address]- When: Unknown [facility] 12-08-2022 NoteCONSULTATION CONSULTATION DATE: 10/27/2022 HISTORY OF PRESENT ILLNESS: This is a 67-year-old gentleman returning to the clinic for a three month follow up for his chronic lower back pain and hip pain. Since his last visit in July, the patient had a left total hip replacement and is overall doing wonderful. It was completed at [facility] in [place] by Dr. Coronado. The patient is recovering [...] in three months' time unless otherwise indicated.[facility] HospitalDjossktm02-93-2029 Miscellaneous Notes* Nursing Notes - Keira Qiu [...] PROCEDURE: 10/10/2022 ATTENDING PHYSICIAN: Lazarus Coronado M.D. FIRST AID NURSE: Mone Watson CNP. PREOPERATIVE DIAGNOSES: 1. Severe [...] INDICATIONS: Seth is an established patient of [employer]. She is a very pleasant, 66-year-old female [...] induced. The patient was repositioned on the Morris table for anterior hip surgery. The operative [...] established here with a Cobra retractor. A Jacskon was used to mobilize the rectus medially [...] and then secured its position with the Morris table lift. With adequate exposure of the [...] without the assistance of a skilled surgical brace maker. A surgical brace maker was medically necessary for positioning, retraction and [...] 10/10/2022 1:00 PM EST Report received from SCIENTIST. Patient hooked up to tele and vitals at this time. Call light within reach and bed in low position. * Brief Op Note - PRINCE Yo - 10/10/2022 11:42 AM EST POST OPERATIVE/PROCEDURE NOTE Seth Bell 66 y.o. male [id number] SURGEON Surgeon(s) and Role: * Lazarus Coronado MD - Primary FIRST AID NURSE PRINCE Yo ANESTHESIOLOGIST BRANCH MAKER: Gino Rashid APRN-LENARD SURGICAL STAFF Copy Manager: Imelda Gilbert RN; Lisa Bueno, BRENDA Nurse Practitioner: PRINCE Yo Medical Charge Entry Specialist: Don Snider; Refugio De Leon PROCEDURE PERFORMED [...] Implant Name Type Inv. Item Serial No. Vp Product Marketing Lot No. LRB No. Used Action bi mentum press fit cup 53 [id number] Left 1 Implanted femoral stem sz 6 DEPUY [id number] Left 1 Implanted femoral head 28mm DEPUY [id number] Left 1 Implanted bi mentum liner DEPUY [id number] Left 1 Implanted SPECIMENS ID Type Source Tests Collected by Time Destination 1 : left femoral head Permanent TISSUE SURGICAL PATHOLOGY REQUEST Lazarus Coronado MD 10/10/2022 1045 Mone Watson APRN-CABRERA October 10, 2022 11:42 AM * Nursing Notes - Brittani Honeycutt RN - 09/15/2022 10:07 AM EDT 09/15/22 1004 Information Source Information Source patient ;child Contact Information Director Integrated Name Brittani Honeycutt RN Case Manager's Living [...] assist with discharge plans. documented in this [facility]11-22-2022 Note* Nursing Notes - Keira Qiu RN - 10/11/2022 1:22 PM EST Patient is discharging home with belongings at this time. [facility]11-22-2022 Note* Nursing Notes - Lily Gill RN [...] foradditional questions Staff Provider office contact: NA [facility]11-22-2022 Note* Nursing Notes - Ly Lynn RN - 10/11/2022 12:39 PM EST Discharge instructions and education reviewed with pt, education provided for dx and new medications, printed education given, denies any questions, IV removed. Extra ABDs, ice packs and holly hose given to patient. Meds to bed with integrity seal intact given to patient also. [facility]11-22-2022 History of Present illness Narrative* Oriana Menendez [...] LE in reclincer: QS,GS,SAQ,AP, heel slide, LAQ [id number] ea. Pt trans sit to stand Patricia [...] 08/03/22 83.6 kg (184 lb 3.2 oz) [place] body weight: 61.5 kg (135 lb 9.3 [...] plans; post hospital: SEE SS NOTES * Julietteernie Thomas, OT - 10/10/2022 5:43 PM EST [...] 0 Equipment Available wheeled walker;shower chair;elevated toilet seat;sock-aid;client representative;long-handled shoe horn;long handle sponge Cognitive Status Examination Orientation Status (Cognition) oriented x 4 Level of Consciousness alert Able to Follow Commands (Communication) WNL Personal Safety and Judgment intact Sensory Examination Sensory Examination WFL Range of Motion (ROM) Range of Motion Examination bilateral upper extremity ROM was WFL Manual Muscle Testing (MMT) Dominant Hand right Transfer Skill: Sit to Stand, Rehab Eval Level of [place]: Sit/Stand contact guard Physical Assist/Nonphysical Assist: Sit/Stand 1 person assist Weight-Bearing Restrictions: Sit/Stand weight-bearing as tolerated Assistive Device for Transfer: Sit/Stand wheeled walker Upper Body Dressing Level of [place] independent Physical Assist/Nonphysical Assist set-up required Lower Body Dressing Level of [place] moderate assist (50% patients effort) Physical Assist/Nonphysical [...] for this session. Pt educated on utilizing client representative and sock aid for LB dressing techniques Continue care plan yes Goals Goals For Discharge Pt will return home Discussed risk / benefits with patient;patient's family Therapist Recommendations At Discharge Recommendations OT Services not recommended at Discharge Plan Plan for next session continue with bathing, dressing, bathroom transfers and hygiene training Therapist Information License # [id number] 1. Pt will complete LB dressing MOD [...] Device 2 wheeled walker Level of Ambulation [facility] General Pain Documentation (Adult, OB, Peds) [...] Supine to Sit, Rehab Eval Level of [place]: Supine/Sit stand-by assist Physical Assist/Nonphysical Assist: Supine/Sit 1 person assist Transfer Skill: Sit To Stand, Rehab Eval [place] (Sit-Stand Transfers) contact guard Physical Assist/Nonphysical Assist: Sit/Stand 1 person assist Weight-Bearing Restrictions: Sit/Stand weight-bearing as tolerated Assistive Device For Transfer: Sit/Stand 2 wheeled walker Gait Skills, PT Eval Level of [place]: Gait contact guard Physical Assist/Nonphysical Assist: Gait [...] on acute pain regimen. documented in this [facility]11-22-2022 Note* Nursing Notes - Ly Lynn RN - 10/11/2022 10:52 AM EST Assessment is complete and remains unchanged from previous at this time with any exceptions noted in the flowsheet. Patient denies further needs and is left with call light and personals in reach. Will continue to monitor. [facility]11-22-2022 Hospital course Narrative* Shahzad Whiting MD - [...] Use Authorization (EUA) for the qualitative detection [id number] nucleic acid. XR FLUORO < 1 HOUR [...] Dept Phone 11/03/2022 10:40 AM Mone Watson [facility] Orthopedics [phone] documented in this [facility]11-22-2022 Note* Op Note - Lazarus Coronado MD - 10/11/2022 7:33 AM EST DATE OF PROCEDURE: 10/10/2022 ATTENDING PHYSICIAN: Lazarus Coronado M.D. FIRST AID NURSE: Mone Watson CNP. PREOPERATIVE DIAGNOSES: 1. Severe [...] INDICATIONS: Seth is an established patient of [employer]. She is a very pleasant, 66-year-old female [...] induced. The patient was repositioned on the Morris table for anterior hip surgery. The operative [...] and then secured its position with the Morris table lift. With adequate exposure of the [...] without the assistance of a skilled surgical brace maker. A surgical brace maker was medically necessary for positioning, retraction and instrum entation. [employer] Work Phone: [phone] Note* Nursing Notes - Felecia Carrera RN - 10/11/2022 2:58 AM EST Pt assessment remains unchanged. Pt c/o 8-07/30 pain to L. Hip. Pt states pain is stinging. Dilaudid given- see MAR. Pt ambulated to BR to void at this time. Ice pack changed and applied to L. Hip. Denies any further needs at this time. Call light within reach. [employer]11-22-2022 Note* Nursing Notes - Felecia Carrera RN - 10/11/2022 12:31 AM EST Pt assessment remains unchanged. Pt c/o 5/10 pain to L. Hip. Medication given - see JAN. Fresh ice pack applied to L. Hip. Denies any further needs at this time. Call light within reach. [facility]11-21-2022 Note* Nursing Notes - Felecia Carrera RN - 10/10/2022 8:29 PM EST Pt assessment complete. POC reviewed with pt. Pt states pain to L.hip is 5/10. Medication given- see MAR. Ice pack applied to L. Hip. Denies any further needs at this time. Call light within reach. [facility]11-21-2022 Consult note* Shahzad Whiting MD - 10/10/2022 [...] Use Authorization (EUA) for the qualitative detection lcSOVZ-ChY-0 nucleic acid. XR FLUORO < 1 HOUR [...] - sleep apnea. Shahzad Whiting MD 10/10/2022 [facility]11-21-2022 Consult note* Shahzad Whiting MD - 10/10/2022 [...] Use Authorization (EUA) for the qualitative detection gdKRUA-KmD-0 nucleic acid. XR FLUORO < 1 HOUR [...] Shahzad Whiting MD 10/10/2022 [facility]* Nursing Notes - Ly Lynn RN - 10/10/2022 3:22 PM EST Assessment is complete and remains unchanged from previous at this time with any exceptions noted in the flowsheet. Patient denies further needs and is left with call light and personals in reach. Will continue to monitor. [facility] Hospital Discharge instructions* Discharge Instructions* [...] - 10/10/2022 2:47 PM EST Contact Office ([phone]) if: > Total Knee ROM < 90 [...] be sent through Care Everywhere. * celecoxib (Mexican) * docusate (oral/rectal) (Mexican) * oxycodone (Mexican) documented in this [facility]11-21-2022 Note* Nursing Notes - Ly yLnn RN - 10/10/2022 1:00 PM EST Report received from SCIENTIST. Patient hooked up to tele and vitals at this time. Call light within reach and bed in low position. [facility] Nurse Note* Diamond Barillas RN - 10/10/2022 12:45 PM EST Discharged from PACU in stable condition. Transported via bed to room 3754 Bed placed in lowest position. Call light within reach. Report given to Jared GUTIERREZ documented in this [facility]11-21-2022 Nurse Surgical operation note* Diamond Barillas RN - 10/10/2022 12:45 PM EST Discharged from PACU in stable condition. Transported via bed to room 3754 Bed placed in lowest position. Call light within reach. Report given to Jared GUTIERREZ [facility]11-21-2022 Note* Brief Op Note - PRINCE Yo - 10/10/2022 11:42 AM EST POST OPERATIVE/PROCEDURE NOTE Seth Darya Bell 66 y.o. male [id number] SURGEON Surgeon(s) and Role: * Lazarus Coronado MD - Primary FIRST AID NURSE Mone Watson APRN-CABRERA ANESTHESIOLOGIST BRANCH MAKER: Gino Rashid APRN-LENARD SURGICAL STAFF Copy Manager: Imelda Gilbert RN; Lisa Bueno RN Nurse Practitioner: PRINCE Yo Medical Charge Entry Specialist: Don Snider; Refugio De Leon PROCEDURE PERFORMED [...] Implant Name Type Inv. Item Serial No. Vp Product Marketing Lot No. LRB No. Used Action bi mentum press fit cup [id number] Left 1 Implanted femoral stem sz 6 DEPUY [id number] Left 1 Implanted femoral head 28mm DEPUY [id number] Left 1 Implanted bi mentum liner DEPUY [id number] Left 1 Implanted SPECIMENS ID Type Source Tests Collected by Time Destination 1 : left femoral head Permanent TISSUE SURGICAL PATHOLOGY REQUEST Lazarus Coronado MD 10/10/2022 1045 PRINCE Yo October 10, 2022 11:42 AM [facility]10-27-2022 Note* Nursing Notes - Brittani Honeycutt RN - 09/15/2022 10:07 AM EDT 09/15/22 1004 Information Source Information Source patient ;child Contact Information Director Integrated Name Brittani Honeycutt RN Case Manager's Living [...] to follow and assist with discharge plans. [facility] History of Present illness Narrative* Sneha Busby, CLARITZA - 08/03/2022 2:10 PM EDT Ortho Nurse - Patient Intake Room#: 1--Visit today to evaluate left hip pain. He has had pain for over 3-4 months. He had no falls or injury to this area. His pain today is a 7. He has had no treatment for this hip in the past. Date: 08/03/2022 2:26 PM Patient: Seth Bell MR#: [id number] : 1955 Age: 66 y.o. Referring Physician: [...] [x]cane, []bracing Are you followed by a tibco developer? [x] [] Name: [facility] cariology [facility] Are you [...] a left total hip arthroplasty for optimal residential management. PHYSICAL EXAM: This is an alert, [...] of jointspace, subchondral sclerosis, osteophyte formation, and jtoy-tg-ucxw contact. Available radiographsfrom 08/2021 appeared normal. IMPRESSION: [...] of limb, and ultimately loss of life. snf expectations, risks and general implant survivorship were also discussed. Despite these risks, the patient would like to proceed with surgical planning. Today, we will initiate the pre-surgical process including nasal MRSA screening, scheduling an appointment for [facility] and the potential surgical date, and reviewing [...] Rfl: Not on File documented in this [facility]09-01-2022 NoteCONSULTATION CONSULTATION DATE: 07/21/2022 HISTORY OF [...] following his appointment with Dr. Coronado in [place] regarding his hip consultation. He will be seen in the clinic in three months' time unless otherwise indicated.[facility] [id number] NotePROCEDURE DETAILS Preoperative Diagnosis: 1. Conductive hearing loss 2. Otosclerosis Postoperative Diagnosis: 1. Conductive hearing loss 2. Otosclerosis Surgeon: Bob Resident/Fellow/Other Enrollment Counselor: Zeenat Procedure: 1. Left stapedectomy Estimated [...] of operating microscope. Surgeon: Jamie Rojas MD Enrollment Counselor surgeon: Leila Epperson MD Anesthesia: General [...] mm, 360-degree Eclipse nitinol-based piston manufactured by [employer], [place], [place] was then placed and crimped onto [...] was awakened and tr (more content not included)...[facility]3] 05-11-2022 NoteHistory & Physical Reviewed: I have [...] Completion Last Updated: 11-May-2022 10:07 by Jamie Rojas)[facility]3]04-28-2022 NoteDiagnoses/Problems Blood tests prior to treatment or [...] for otosclerosis and SNHL, referred by Dr. Dexter History of Present IllnessHistory of present illness: This is the initial visit for this patient who is a 66-year-old male referred by Dr. Dexter for evaluation of progressive left conductive hearing [...] affect Diagnostic testing: The audiogram by Dr. Dexter showed moderate mixed hearing loss on the [...] This note was created using speech recognition hospitalist physician software/or gripNote hospitalist physician services. Despite proofreading, several typographical errors might be present that might affect the meaning of the content. Please call with any questions. By signing my name below, I, Amie Lwoe, (more content not included)... TouchworksEvaluation + Plan note Future Appointments Appointment Date:12/08/2023 08:30:00 AM Scheduled Provider:Ailyn DNUN MD Location:[facility] Appointment Type:URO Office Visit Diagnostic Tests Pending * PSA Total 12/05/22 [facility] evaluation + Plan note Future Appointments Appointment Date:12/20/2024 08:30:00 AM Scheduled Provider:Ailyn DUNN MD Location:[facility] Appointment Type:URO Office Visit Diagnostic Tests Pending * PSA Total 01/01/24 [facility] evaluation + Plan note Future Appointments Appointment Date:12/20/2024 08:30:00 AM Scheduled Provider:Ailyn DUNN MD Location:[facility] Appointment Type:URO Office Visit [facility] evaluation + Plan note Future Appointments Appointment Date:12/20/2024 08:30:00 AM Scheduled Provider:Ailyn DUNN MD Location:[facility] Appointment Type:URO Office Visit Future Scheduled Tests Laboratory* Creatinine 06/27/24 [facility] Evaluation + Plan note Future Appointments Appointment Date:12/26/2025 08:30:00 AM Scheduled Provider:[facility]N [facility] Type:[facility]O Office Visit Diagnostic Tests Pending * PSA Total 12/23/24 Future Scheduled Tests Laboratory* Creatinine 06/27/24 [facility] evaluation + Plan note Future Appointments Appointment Date:12/26/2025 08:30:00 AM Scheduled Provider:Ailyn DUNN MD [facility] Type:URO Office Visit Future Scheduled Tests Laboratory* Creatinine 06/27/24 [facility] Evaluation + Plan note Future Appointments Appointment Date:06/03/2025 08:30:00 AM Scheduled Provider: Location:[facility] Appointment Type:URO Nurse Visit Appointment Date:06/18/2025 08:45:00 AM Scheduled Provider:Ailyn DUNN MD Location:[facility] Appointment Type:URO Office Visit Appointment Date:12/26/2025 08:30:00 AM Scheduled Provider:[facility] Type:[facility]O Office Visit Future Scheduled Tests Laboratory* Creatinine 06/27/[address] [facility] Evaluation + Plan note Future Appointments Appointment Date:06/18/2025 08:45:00 AM Scheduled Provider:Ailyn DUNN MD [facility] Appoint[facility] Type:URO Office Visit Appointment Date:12/26/2025 08:30:00 AM Scheduled Provider:Ailyn DUNN MD [facility] App[facility] Type:URO Office Visit Future Scheduled Tests Laboratory* Creatinine 06/27/24 [facility] Evaluation + Plan note Future Appointments Appointment Date:10/01/2025 02:45:00 PM Scheduled Provider:Ailyn DUNN MD Location:[facility] [place] Appointment Type:URO Office Visit Appointment Date:12/26/2025 08:30:00 AM Scheduled Provider:Ailyn DUNN MD Location:[facility] Appointment Type:URO Office Visit Future Scheduled Tests Laboratory* Creatinine 06/27/24 [facility] Evaluation note* Diagnosis Left hip pain Pain in joint, pelvic region and thigh documented in this encounter [employer] note* Diagnosis Left hip pain- Primary Pain in joint, pelvic region and thigh documented in this encounter [employer] note* Diagnosis Postoperative wound infection of left hip- Primary Other postoperative infection Preop testing Preoperative examination, unspecified Encounter for preoperative screening laboratory testing for COVID-19 virus Primary osteoarthritis of left hip Primary localized osteoarthrosis, pelvic region and thigh Primary osteoarthritis of left hip Primary localized osteoarthrosis, pelvic region and thigh documented in this encounter [employer] note* Diagnosis Hx of total hip arthroplasty, left- Primary Right knee pain, unspecified chronicity documented in this encounter [employer] noteNo InformationMarc[employer] Other evaluation note* Diagnosis Acute postoperative pain of left knee- Primary Primary osteoarthritis of right knee Primary localized osteoarthrosis, lower leg Osteoarthritis of right knee Osteoarthrosis, unspecified whether generalized or localized, lower leg documented in this encounter [employer] Other evaluation note* Diagnosis Hx of total knee arthroplasty, right- Primary documented in this encounter [employer]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 & 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 [employer]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 note* Diagnosis Right inguinal hernia Inguinal hernia without mention of obstruction or gangrene, unilateral or unspecified, (not specified as recurrent) documented in this encounter [facility] HealthcareEvaluation note* Diagnosis S/P laparoscopic hernia repair- Primary Other postprocedural status documented in this encounter [facility] HealthcareEvaluation note* Diagnosis Other specified hearing loss of left ear, unspecified 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- Primary Bilateral impacted cerumen Impacted cerumen documented in this encounter [facility] HealthcareHistory general [...] ARTHROPLASTY 202 2 Hospitalization History SEE SURGICAL [employer] Other History general Narrative - Reported* Type [...] 2013 Surgical History COLONOSCOPY 2013 Surgical History [facility] Surgical History PCDF C3-7 2015 Surgical History L2-S1 LAMINECTOMY, DECOMPRESSIO N, FUSION 2017 Surgical History ARTHROSCOPY RIGHT KNEE 2018 Surgical History LAP UMBILICAL HERNIA REPAIR 201 9 Surgical History TRANSRECTAL ULTRASOUND (TRUS) W ITH BIOPSY 2021 Surgical History LEFT TOTAL HIP ARTHROPLASTY 202 2 Surgical History Right TKA 04/2023` Hospitalization History SEE SURGICAL [employer] Other History general Narrative - [facility] [employer] Other Rhytecjzqa general Narrative - Reported* Type Description Date [...] 2013 Surgical History COLONOSCOPY 2014 Surgical History [facility] Surgical History PCDF C3-7 2015 Surgical History L2-S1 LAMINECTOMY, DECOMPRESSIO N, FUSION 2017 Surgical History ARTHROSCOPY RIGHT KNEE 2018 Surgical History LAP UMBILICAL HERNIA REPAIR 201 9 Surgical History TRANSRECTAL ULTRASOUND (TRUS) W ITH BIOPSY 2021 Surgical History LEFT TOTAL HIP ARTHROPLASTY 202 2 Surgical History Right TKA 04/2023` Surgical History EGD 05/2023 Hospitalization History SEE SURGICAL HX [employer] Other History of Present illness Narrative* History of present illness: * This is the initial visit for this patient who is a 66-year-old male referred by Dr. Dexter for evaluation of progressive left conductive hearing [...] Diagnostic testing: * The audiogram by Dr. Dexter showed moderate mixed hearing loss on the [...] my professional assessment of this patient s advanced research programs director katarzyna progressive condition, the complexity of evaluation and treatment is moderate. * This note was created using speech recognition hospitalist physician software/or gripNote hospitalist physician services. Despite proofreading, several typographical errors might [...] stapedectomy for otosclerosis is an elective procedure. [employer] Work Phone: History of Present illness Narrative* History of present illness: * This is the initial visit for this patient who is a 66-year-old male referred by Dr. Dexter for evaluation of progressive left conductive hearing [...] Diagnostic testing: * The audiogram by Dr. Dexter showed moderate mixed hearing loss on the [...] my professional assessment of this patient s advanced research programs director katarzyna progressive condition, the complexity of evaluation and treatment is moderate. * This note was created using speech recognition hospitalist physician software/or [employer] hospitalist physician services. Despite proofreading, several typographical errors might [...] stapedectomy for otosclerosis is an elective procedure. [place] Work Phone: Hospital course Narrative No data available for this section [facility] Hospital Discharge instructions No data available for this section [facility] [place] Progress note No data available for this section [facility] reason for referral (narrative)No reason for referral information available[facility] Work Phone: Reason for visit Narrative* Auth/Cert Specialty Diagnoses / Procedures Referred By Dodie silverman Referred To Contact Diagnoses Primary osteoarthritis of left hip Primary osteoarthritis of left hip [M16.12] Procedures ME TOTAL HIP ARTHROPLASTY ARTHROPLASTY HIP TOTAL ANTERIOR APPROACH Lazarus Coronado MD [address] [phone] Referral ID Status Reason Start Date Expiration Date Visits Re quested Visits Authorized [id number] 08/15/2022 1 1 [employer] Summary Purpose Family History Unknown Family Member Name Dates Details : Father Status:Active Family history of malignant neoplasm: Father(V16.9, Z80.9) Status:Active Alive and well: Mother Status:Active Unknown Family Member Name Dates Details : Father Status:Active Family history of malignant neoplasm: Father(V16.9, Z80.9) Status:Active Alive and well: Mother Status:Active Relationship Condition Age at Onset Recorded Date/T noreen father Unknown Heart disease Unknown mother Alzheimer's dementia Unknown Unknown son Malignant neoplasm Unknown Advance Directives Latest Code Status on File Code Status Date Activated Date Inactivated Comments Full Code 10/10/2022 11:40 AM Latest Code Status on File Code Status Date Activated Date Inactivated Comments Full Code 05/08/2023 10:16 AM Code Status History Code Status Date Activated Date Inactivated Comments Full Code 10/10/2022 11:40 AM 05/08/2023 10:16 AM Advance Directive Response Recorded Date/ Time Advance Directives Yes September 5:56pm Chief Complaint New patient visit for otosclerosis and SNHL, referred by Dr. Chilel patient visit for otosclerosis and SNHL, referred by Dr. Dexter Reason for Referral Specialty Diagnoses / Procedures Referred By Contac t Referred To Contact Diagnoses Left hip pain Procedures XR HIP WITH PELVIS LEFT Lazarus Coronado MD [address] [place] [phone] Referral ID Status Reason Start Date Expiration Date V isits Requested Visits Authorized [id number] Pending Review 08/03/2022 08/28/2023 1 1 Specialty Diagnoses / Procedures Referred By Contac t Referred To Contact Diagnoses Right knee pain, unspecified chronicity Procedures XR KNEE RIGHT 4+ VIEWS Lazarus Coronado MD [address] [place] [address] Referral ID Status Reason Start Date Expiration Date V isits Requested Visits Authorized [id number] New Request 03/23/2023 04/16/2024 1 1 Specialty Diagnoses / Procedures Referred By Contac t Referred To Contact Diagnoses Right knee pain, unspecified chronicity Procedures XR BONE LENGTH STUDY Lazarus Coronado MD [address] [place] [address] Referral ID Status Reason Start Date Expiration Date V isits Requested Visits Authorized [id number] New Request 03/23/2023 04/16/2024 1 1 Referral ID Status Reason Start Date Expiration Date V isits Requested Visits Authorized [id number] New Request 03/23/2023 04/16/2024 1 1 Specialty Diagnoses / Procedures Referred By Contac t Referred To Contact Diagnoses Hx of total hip arthroplasty, left Procedures XR HIP WITH PELVIS LEFT Lazarus Coronado MD [address] [place] [address] Referral ID Status Reason Start Date Expiration Date V isits Requested Visits Authorized [id number] New Request 03/07/2023 03/31/2024 1 1 Specialty Diagnoses / Procedures Referred By Contac t Referred To Contact Physical Therapy Diagnoses Acute postoperative pain of left knee Mone Watson, GEOMETRICIAN-LIVESTOCK SALES REPRESENTATIVE [address] [place] [address] Referral ID Status Reason Start Date Expiration Date V isits Requested Visits Authorized [id number] New Request 05/08/2023 06/01/2024 1 1 Scheduling Instructions . Specialty Diagnoses / Procedures Referred By Dodie silverman Referred To Contact Diagnoses Hx of total knee arthroplasty, right Procedures XR KNEE RIGHT 3 VIEWS Mone Watson, GEOMETRICIAN-LIVESTOCK SALES REPRESENTATIVE [address] [place] [address] Referral ID Status Reason Start Date Expiration Date V isits Requested Visits Authorized [id number] New Request 05/24/2023 06/17/2024 1 1 Chief Complaint and Reason for Visit Chief Complaint Admit Date chest discomfort, bp concerns January 2:32pm Reason for Visit Admit Date ASHD (arteriosclerotic heart disease) [facility] 2024 2:32pm Chest pain February 14, 2025 2:3 2pm Essential (primary) hypertension January 192024 2:32pm Chief Complaint Admit Date chest discomfort, bp concerns January 2:32pm Referral Order April 08, 2025 12:26 pm difficulty urinating April 22, 2025 2:15 pm Additional Source Comments (unrecognized sect ion and content) No Status Records FoundNo Status Records FoundNo Status Records FoundNo Status Records FoundNo Status Records FoundNo Status Records FoundNo Status Records FoundNo Status Records FoundNo Status Records Found INFORMATION SOURCE (unrecogn ized section and content) DATE CREATED AUTHOR 12/15/2021 [facility] DATE CREATED AUTHOR AUTHOR'S ORGANIZ ATION 07/17/2022 [facility] DATE CREATED AUTHOR AUTHOR'S ORGANIZ ATION 07/18/2022 [facility] DATE CREATED AUTHOR AUTHOR'S ORGANIZ ATION 03/31/2023 [facility] DATE CREATED AUTHOR AUTHOR'S ORGANIZ ATION 06/08/[address] [facility] DATE CREATED AUTHOR AUTHOR'S ORGANIZ ATION 06/27/2023 [facility] DATE CREATED AUTHOR AUTHOR'S ORGANIZ ATION 02/17/2025 [facility] DATE CREATED AUTHOR AUTHOR'S ORGANIZ ATION 04/20/2025 [facility] DATE CREATED AUTHOR AUTHOR'S ORGANIZ ATION 06/19/2025 [facility] Reason for Visit (unrecogniz ed section and content) Specialty Diagnoses / Procedures Referred By Contac t Referred To Contact Diagnoses Left hip pain Procedures XR HIP WITH PELVIS LEFT Lazarus Coronado MD [address] [place] [phone] Referral ID Status Reason Start Date Expiration Date V isits Requested Visits Authorized [id number] Pending Review 08/03/2022 08/28/2023 1 1 Reason Comments Pain New Patient Specialty Diagnoses / Procedures Referred By Contac t Referred To Contact Diagnoses Hx of total hip arthroplasty, left Procedures XR HIP WITH PELVIS LEFT Mone Watson, GEOMETRICIAN-CABRERA [address] [place] [id number] Referral ID Status Reason Start Date Expiration Date V isits Requested Visits Authorized [id number] New Request 10/27/2022 11/21/2023 1 1 Specialty Diagnoses / Procedures Referred By Contac t Referred To Contact Diagnoses Hx of total hip arthroplasty, left Procedures XR HIP WITH PELVIS LEFT Lazarus Coronado MD [address] [place] [phone] Referral ID Status Reason Start Date Expiration Date V isits Requested Visits Authorized [id number] New Request 03/07/2023 03/31/2024 1 1 Specialty Diagnoses / Procedures Referred By Contac t Referred To Contact Diagnoses Right knee pain, unspecified chronicity Procedures XR BONE LENGTH STUDY Lazarus Coronado MD [address] [place] [phone] Referral ID Status Reason Start Date Expiration Date V isits Requested Visits Authorized [id number] New Request 03/23/2023 04/16/2024 1 1 Reason Comments Post Op Visit Specialty Diagnoses / Procedures Referred By Contac t Referred To Contact Diagnoses Primary osteoarthritis of right knee Primary osteoarthritis of right knee [M17.11] Procedures ME TOTAL KNEE ARTHROPLASTY ARTHROPLASTY KNEE TOTAL Lazarus Coronado MD [address] [place] [phone] Referral ID Status Reason Start Date Expiration Date Visits Re quested Visits Authorized [id number] 03/29/2023 1 1 Reason Comments Post Op [...] General Surgery Diagnoses Right inguinal hernia Procedures ME OFFICE/OUTPATIENT NEW HIGH MDM 60 MINUTES Stevan Galdamez MD [address] [place] [address] Phone: tel: fax: Sarah Hooks DO [address] [facility] [address] [place] [address] Phone: tel: fax: Referral ID Status Reason Start Date Expiration Date V isits Requested Visits Authorized [id number] Closed Specialty Services Required 09/04/2024 03/03/2025 1 1 Reason Comments Post-op Pt presents post op from a robotic right inguinal hernia repair on 09/24. He states that he is doing well, denies any pain. He states that there is some tenderness at times. Reason Comments Ear Problem Left ear plugged Care Teams (unrecognized sec tion and content) Team Status: Active Member Role Status Dates Stevan Galdamez DO Primary Care Provider Active Team Status: Active Member Role Status Dates Stevan Galdamez DO Primary Care Provider Active Start: April 08, 2025 Stevan Galdamez DO Attending Provider Active Sta rt: April 08, 2025 Team Status: Inactive Member Role Status Dates Stevan Galdamez DO Primary Care Provider Active Start: April 22, 2025 End: April 22, 2025 Stevan Galdamez DO Attending Provider Active Sta rt: April 22, 2025 End: April 22, 2025 Team Status: Inactive Member Role Status Dates Stevan Galdamez DO Primary Care Provider Active Start: June 23, 2025 End: June 23, 2025 Stevan Galdamez DO Attending Provider Active Sta rt: June 23, 2025 End: June 23, 2025 Team Status: Active Member Role Status Dates Stevan Galdamez DO Primary Care Provider Active Team Status: Inactive Member Role Status Dates Stevan Galdamez DO Primary Care Provide r, Attending Provider Active Start: February 14, 2025 End: February 14, 2025 Team Status: Active Member Role Status Dates Stevan Galdamez Primary Care Provide r, Attending Provider Active Start: April 08, 2025 Team Status: Inactive Member Role Status Dates Stevan Rudolph Primary Care Provide r, Attending Provider Active Start: April 22, 2025 End: April 22, 2025 Income Tax Preparer Relationship Specialty Start Date End Date Stevan Galdamez DO [address] [facility] [place] [address] PCP - General Internal Medicine 08/03/22 Income Tax Preparer Relationship Specialty Start Date End Date Stevan Galdamez DO [address] [place] [place] [address] PCP - General Internal Medicine 08/03/22 Income Tax Preparer Relationship Specialty Start Date End Date Stevan Galdamez DO [address] [place] [place] [address] PCP - General Internal Medicine 08/03/22 Income Tax Preparer Relationship Specialty Start Date End Date Stevan Galdamez DO [address] [place] [place] [facility] [address] PCP - General Internal Medicine 08/03/22 Income Tax Preparer Relationship Specialty Start Date End Date Stevan Galdamez DO [address] [place] [place] [facility] [address] PCP - General Internal Medicine 08/03/22 Income Tax Preparer Relationship Specialty Start Date End Date Stevan Galdamez, DO [address] [place] [address] PCP - General Internal Medicine 08/03/22 Income Tax Preparer Relationship Specialty Start Date End Date Stevan Galdamez DO [address] [place] [address] PCP - General Internal Medicine 08/03/22 Income Tax Preparer Relationship Specialty Start Date End Date Stevan Galdamez DO [address] [place] [place] [address] PCP - General Internal Medicine 08/03/22 Income Tax Preparer Relationship Specialty Start Date End Date Stevan Galdamez DO [address] [facility] [place] [address] PCP - General Internal Medicine 08/03/22 Income Tax Preparer Relationship Specialty Start Date End Date Stevan Galdamez MD [address] [facility] [place] [address] PCP - General Internal Medicine 09/04/24 Income Tax Preparer Relationship Specialty Start Date End Date Stevan Galdamez MD [address] [facility] [place] [address] PCP - General Internal Medicine 09/04/24 Income Tax Preparer Relationship Specialty Start Date End Date Stevan Galdamez MD [address] [facility] [place] [address] PCP - General Internal Medicine 09/04/24 Income Tax Preparer Relationship Specialty Start Date End Date Stevan Galdamez MD [address] [facility] [place] [address] PCP - General Internal Medicine 09/04/24 Team Status: Active Member Role Status Dates Stevan Galdamez DO Primary Care Provider Active Start: December 19, 2024 Ailyn Dunn MD Attending Provider Active St art: December 19, 2024 Income Tax Preparer Relationship Specialty Start Date End Date Stevan Galdamez DO [address] [facility] [place] [address] PCP - General Internal Medicine 04/17/25 Income Tax Preparer Relationship Specialty Start Date End Date Stevan Galdamez DO [address] [place] [phone] PCP - General Internal Medicine 04/17/25 Team Status: Active Member Role Status Dates Stevan Galdamez DO Primary Care Provider Active Start: April 08, 2025 Stevan Galdamez DO Attending Provider Active Sta rt: April 08, 2025 Team Status: Inactive Member Role Status Dates Stevan Galdamez DO Primary Care Provider Active Start: April 22, 2025 End: April 22, 2025 Stevan Galdamez DO Attending Provider Active Sta rt: April 22, 2025 End: April 22, 2025 Team Status: Inactive Member Role Status Dates Stevan Galdamez DO Primary Care Provider Active Start: June 23, 2025 End: June 23, 2025 Stevan Galdamez DO Attending Provider Active Sta rt: June 23, 2025 End: June 23, 2025 Scheduled Active and Recently Administ ered Medications [...] Post-op/Post-Proc 1522 (Given - Provider: Ly Lynn RN)202 (Given - Provider: Felecia Carrera RN) 0241 [...] preop., Pre-op/Pre-Proc 0721 (Given - Provider: Chyna Atkins, BRENDA) cyclobenzaprine (FLEXERIL) tablet 10 mg 10 mg, [...] Post-op/Post-Proc 1300 ($$New Bag$$ - Provider: Ly Lynn, BRENDA)1700 (Rate/Dose Verify - Provider: Keira Qiu, RN) 0734 (Stopped - Provider: Keira Qiu, RN)1122 (Stopped - Provider: Ly Lynn, BRENDA) PRN Medication Order 10/09/2022 10/10/2022 10/11/2022 bisacodyl (DULCOLAX) suppository 10 mg 10 mg, Rectal, DAILY NEEDED, Starting on Mon10/10/22 at 1306, Until Mon10/11/22 at 1529, constipation, Post-op/Post-Proc ceFAZolin (ANCEF) 2 g in dextrose 100 mL premix IVPB (COMPLETED) 2 g, Intravenous, Administer over 30 Minutes, COLLAR FELLER TO PROCEDURE, 1 dose, Starting on Mon10/10/22 at 0657, Until Discontinued, Other, Pre-operative antibiotic, For 15 Minutes, Pre-op/Pre-Proc 1015 (Given - Provider: Gino Rashid APRN-BRANCH MAKER) HYDROmorphone (DILAUDID) injection 0.5 mg 0.5 mg, [...] Qiu RN) 0054 (Given - Provider: Denise Treviño, RN)0549 (Given - Provider: Denise Treviño RN)1157 [...] release product. Do not chew or crush 133 (Given - Provider: Keira Qiu RN) 0833 [...] Keira Qiu RN)1015 (Paused - Provider: MEAGAN SteeleBRANCH MAKER - Comment: Switch to gravity)1016 (Restarted - Provider: MEAGAN SteeleBRANCH MAKER)1057 (Stopped - Provider: Keira Qiu RN) Sodium [...] 2 g, Intravenous, Administer over 30 Minutes, COLLAR FELLER TO PROCEDURE, 1 dose, Starting on Mon05/08/23 at 0708, Until Discontinued, Other, Pre-operative antibiotic, For 15 Minutes, Pre-op/Pre-Proc 0847 (Given - Provider: Boy Vidal APRN-BRANCH MAKER) Celecoxib (CELEBREX) capsule 200 mg (COMPLETED) 200 mg, Oral, ONCE DIRECTED, 1 dose, Starting on Mon05/08/23 at 0708, Until Discontinued, See admin instructions, Administer 2 hours preop., Pre-op/Pre-Proc 07 (Given - Provider: Keira Qiu RN) HYDROmorphone [...] 1051, Until Mon05/09/23 at 1750, Sleep, Post-op/Post-Proc Goals (unrecognized section and content) Goals may be documented in a n alternate section FOR RECORDS PERTAINING TO PATIENTS WHO ARE [...] BE BASED ON THE PRIMARY CLINICAL RECORDS. [facility]. provides no warranty or guarantee of the accuracy or completeness of information in this document.
[2025-07-15 10:45] LABS: Alanine Aminotransferase 47 U/L (16-63); Albumin Globulin Ratio 1.3; Albumin Level 4.0 g/dL (3.4-5.0); Alkaline Phosphatase 46 U/L (46-116); Anion Gap 14.5; Aspartate Amino Transferase 28 U/L (15-37); Blood Urea Nitrogen 17.0 mg/dL (7.0-18.0); Calcium 8.9 mg/dL (8.5-10.1); Carbon Dioxide 25.5 mmol/L (21.0-32.0); Chloride 105 mmol/L (98-107); Cholesterol 140 mg/dL (<=200); Estimated GFR (African America >60 (>=60 mL/min/1.73m^2); Estimated GFR (Non-African Ame >60 (>=60 mL/min/1.73m^2); Globulin 3.2 g/dL; Glucose 113 mg/dL (74-106); HDL Cholesterol 60 mg/dL (40-60); Potassium 4.0 mmol/L (3.5-5.1); Sodium 141 mmol/L (136-145); Total Protein 7.2 g/dL (6.4-8.2); Triglycerides 75 mg/dL (<=150); VLDL CHOLESTEROL 15.0 mg/dL
[2025-07-15 10:46] LABS: Hematocrit 40.4 % (42.0-54.0); Hemoglobin 13.8 g/dL (14.0-18.0); Immature Granulocytes Abs Auto 0.02 10^3/uL (0.00-0.03); Immature Granulocytes Pct Auto 0.3 % (0.0-0.5); Lymphocytes Absolute Auto 1.4 10^3/uL (1.2-3.8); Mean Corpuscular HGB Conc 34.2 g/dL (29.9-35.2); Mean Corpuscular Hemoglobin 30.9 pg (25.9-34.0); Mean Corpuscular Volume 90.6 fL (80.0-94.0); Platelet Count 164 10^3/uL (150-450); Red Blood Count 4.46 10^6/uL (4.70-6.10); White Blood Count 6.7 10^3/uL (4.0-11.0)
== END 2025-07-15 09:45 | disposition home or self-care (01) ==
LOC: LAB 09:46
PROVIDERS: PCP Internal Medicine; Visit Provider Internal Medicine
DX: E78.00 Pure hypercholesterolemia, unspecified (principal); I10 Essential (primary) hypertension; I25.10 Atherosclerotic heart disease of native coronary artery without angina pectoris
CPT/HCPCS: 36415; 80053; 80061; 85025

== ENCOUNTER 2025-11-07 07:58 | Outpatient (OUT) | payer MEDICARE, SELFPAY ==
--- OUTSIDE RECORDS SUMMARY | 2025-10-29 07:01 | XMS_ITS | Continuity of Care Document ---
Author Organization [facility] Address [address] [place] [address] Phone Care Team Providers Care Medical Device Sales Representative Name Role Phone Stephen Stevan HURLEY Primary Care Provider Stevan Mitchell DO Attending Provider Care Teams Patient Care Team Team Status: Active Member Role/Relationship Status Dates Stevan Mtichell DO Primary Care Provider Active Visit Care Team Team Status: Inactive Member Role/Relationship Status Dates Stevan Mitchell DO Primary Care Provider Active Start: October 03, 2025 End: October 03tootie Mitchell DOAttending ProviderActiveStart: October 03, 2025 End: October 03, 2025 Patient Care Team Team Status: Inactive Member Role/Relationship Status Dates Stevan Mitchell DO Primary Care Provider Active Start: October 29, 2025 End: October 29tootie Mitchell DOAttending ProviderActiveStart: October 29, 2025 End: October 29, 2025 Chief Complaint and Reason for Visit Chief Complaint Admit Date pain in side October 03, 2025 9:14am 1 week October 29, 2025 10:43am Reason for Visit Admit Date Left lower quadrant abdominal pain Novem 2024 9:14am Acute diverticulitis October 03, 2025 9:14am Left lower quadrant abdominal pain Decem 2024 10:43am Acute diverticulitis October 29, 2025 10:43am Thoracic back pain October 29, 2025 10:43am Allergies, Adverse Reactions, Alerts Allergen Type Severity Reaction Last Updated Verified Status No Known Allergies Allergy Unknown October 29, 2025 11:20amYesActive Social History Smoking Status Status Start Date End Date Date of Observa tion Ex-smoker (finding) June 23, 2025 11:25am Observation Status Observation Response Date of Response Legal Sex Male (finding) Sex Assigned At BirthMaleDecember 1954 Family History Relationship Condition Age at Onset Recorded Date/T noreen father Unknown Heart diseaseUnknownmotherAlzheimer's dementiaUnknownDeceasedUnknownsonMalignant neoplasmUnknown Problems Active Problems Problem Diagnosis/Recorded Date Onset Date Status C omments Nicotine addiction April 06, 2024 7:04am Unknown Active Age started, PPD, age quit Screening PSA (prostate specific antigen) December 19, 2024 8:24pm Unknown Active PSA: 0 .81 - 11/2024 Screening for colon cancer April 08, 2024 10:01am Unknown Active Obstructive sleep apnea (adult) (pediatric)January 12, 2024 9:53amUnknown ActiveHypercholesterolemiaMay 2023 7:04amUnknownActiveRLS (restless legs syndrome)January 12, 2024 9:54amUnknownActiveEssential (primary) hypertension January 12, 2024 9:53amUnknownActiveCarotid US: < 50% B/L - 05/2023Right inguinal herniaJuly 2023 1:25pmUnknownActiveBenign prostatic hyperplasia with lower urinary tract symptomsFebruary 2023 9:53amUnknownActiveGERD (gastroesophageal reflux disease)January 12, 2024 9:53amUnknownActive Abdominal painJuly 2023 1:26pmUnknownActiveChest painMarch 2024 2:34pmUnknownActiveLumbar spondylosisFebruary 2023 9:53amUnknownActiveASHD (arteriosclerotic heart disease)January 12, 2024 9:53amUnknownActivePTCA LAD - 2007, LHC w/ mild CAD - 2009 Medications Medication Status Dose Units Route Directions Qty Days Refills S tart Date Stop Date End Date Reason(s) Instructions Adherence Trazodone 50 mg tablet Discontinued 50 MG PO Daily at bedtim e as needed for insomnia 30 30 5 March 11, 2024 12:13September 12, 2024 7:41amBupropion Hcl 150 mg tablet extended release 24 hr Discontinued0.ROUTE.QNZRANZ737Vtlr 25th, 2024 5:28pmSept2023 12:00pm TAKE 1 TABLET BY MOUTH DAILY 90Bupropion Hcl 150 mg tablet extended release 24 gvEombsxkayetq599RPDEFsfud nsjqjhl65487Bpblpujdj2023 11:59amSeptember 2023 11:35amAmlodipine-Benazepril 5-20 mg capsuleDiscontinued0.ROUTE .RJCWACD332Hvaggolmn2023 7:25pmSeptember 2024 4:53pmTAKE 1 CAPSULE BY MOUTH EVERY DAYMetoprolol Succinate 50 mg tablet extended release 24 hr Discontinued0.ROUTE.KMMKQZU039Vytpuitrp2023 7:25pmSeptember 2024 12:43pmTAKE 1 TABLET BY MOUTH EVERY DAYPantoprazole 40 mg tablet,delayed release (DR/EC)Discontinued0.ROUTE.ZKWEIIX5077Jchkhatmf2023 7:25pmFebruary 2024 9:54pmTAKE 1 TABLET BY MOUTH TWICE DAILYAtorvastatin 80 mg tablet Discontinued0.ROUTE.CSLGPXI126Trgfvgnel2023 7:25pmSept2024 4:53pmTAKE 1 TABLET BY MOUTH EVERY DAYBupropion Hcl 300 mg tablet extended release 24 hrDiscontinued0.ROUTE.WGFAYFN424OrmspshsfAugust 19, 2024 11:35amDecember 2023 5:29pmTAKE 1 TABLET BY MOUTH EVERY DAYTrazodone 50 mg tablet Discontinued0.ROUTE.DUZHEWY164Nohfdsg 24th, 2024 7:41amNovember 2023 1:04pmTAKE 1 TABLET BY MOUTH EVERY DAY AT BEDTIME NEEDED FOR INSOMNIA Trazodone 50 mg tabletDiscontinued0.ROUTE.TCHUMOC178Gqryfbiv 12th, 2024 1:04pm June 11, 2025 4:49pmTAKE 1 TABLET BY MOUTH EVERY DAY AT BEDTIME NEEDED FOR INSOMNIABupropion Hcl 300 mg tablet extended release 24 lmNkzunftdoghp118JOXR Dlqsx09139Ojwqtiqp2023 5:28pmSept2024 12:43pmPantoprazole 40 mg tablet,delayed release (DR/EC)Active0.ROUTE.AOITTEU7677Smwqeknp 2024 9:54pmTAKE 1 TABLET BY MOUTH TWICE DAILYComplies with 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Trazodone 50 mg zccwrkRttkuslrpkkp17KISVHqmmb at mlpjkdz07811Qzdy 2024 4:49pmAugust 2024 10:55amMetoprolol Succinate 50 mg tablet extended release 24 hrActive 49ZILUSroam11644Euechthlq 2024 12:42pmComplies with 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Bupropion Hcl 300 mg tablet extended release 24 nrTommww479ZNBDJdlsj19690Kptoyrtfj 2024 12:43pmComplies with 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Atorvastatin 80 mg gfecnmLnxnwl16SIFAIuadr cclnoxw36150Ohwispwlo 2024 4:53pmComplies with 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Amlodipine- Benazepril 5-20 mg capsuleActive0.ROUTE.LNCOFUD878Qawzccwal 2024 4:53pm TAKE 1 CAPSULE BY MOUTH EVERY DAYComplies with 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Metronidazole 500 mg ewyyrjTnpzssvzjoix777OKGTZmwkr 8 bzcds9329Wjajbwuo 2nd, 2025 12:00amDecember 2024 11:24amCiprofloxacin Hcl (Cipro) 500 mg erkbwoRmmmdk117OWHKKynmn jthfn4612Qwuusavp 2nd, 2025 12:00amComplies with 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Amlodipine- Benazepril 5-20 mg fmbkvukUsamzpcpooao2AEDQGSbckwPafeudhf 2023 12:00am August 14, 2024 7:26pmAtorvastatin 80 mg vaghdmRhpppzmpfnxi79JETZFslig January 12, 2024 12:00amSept2023 7:26pmBupropion Hcl 150 mg tablet extended release 24 aiQctdfdwbddqk858ATQMAbxtiJxotykhz 2023 12:00am May 14, 2024 5:29pmBupropion Hcl 300 mg tablet extended release 24 hr Jpvskdrowoao204UIULXprqvDbbnbker 2023 12:00amSept2023 9:49am Finasteride 5 mg hltamlKlwrun2CYLRHzxfbSsmfvokx 2023 12:00amComplies with 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Metoprolol Succinate 50 mg tablet extended release 24 hrDiscontinued 50MGPODailyFebruary 2023 12:00amSeptember 2023 7:26pmOmeprazole 40 mg capsule,delayed release(DR/EC)Tdqvxmrvzhdu43HOBGXsizjZgkbfdfi 2023 12:00amFebruary 2024 9:54pmOndansetron 4 mg tablet,zoeunnnexuffkyKaxaab5QZ TRANSLINGUEvery 6 hours as neededFebruary 2023 12:00amComplies with 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Pantoprazole 40 mg tablet,delayed release (DR/EC)Fdsedhsflpnl24YUDNThhki dailyFebruary 2023 12:00amSeptember 2023 7:26pmTamsulosin 0.4 mg capsuleDiscontinued0.4MGPOTwice dailyFebruary 2023 12:00amNovember 2024 9:27amTrazodone 50 mg efwsfwIstupdzujqkx49JMMETqcxe at bedtime as needed January 12, 2024 12:00amApril 2023 2:49pmDoxycycline Hyclate 100 mg woprucgDxufsmqmhxsx078FOOUFalon rpdir7781Ezlomhdj 2023 12:00amJune 2024 1:19pmTamsulosin 0.4 mg capsuleActive0.4MGPODailyNovember 2024 9:27am Complies with 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Benazepril 10 mg rqwxisYxduql95BIYHYnufh56384Zoumg 2024 11:00pmComplies with 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Levofloxacin 750 mg tablet Eyajrcoosvrv967NGHPQwpow19728Fcpp 2024 11:00pmAugust 2024 11:49am Prednisone 20 mg zxhdtzJhjqwsbstnra40QHKUYd Vorkgpbk9182Ctpjsi 3rd, 2025 11:00pm June 23, 2025 10:49am1 tab tid w/ food x 2 days, then bid w/ food x 3 days, then qd w/ food x 4 daysTrazodone 50 mg rsqtcmOwkroa15UQKHIbejo at xdnfjys83909 June 23, 2025 10:53amComplies with 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Amoxicillin-Pot Clavulanate 875-125 mg uqalsrNjqskvbhroze8UAJTETfwhi 12 pcxjl9937Fvsefsmi 2024 12:00am October 21, 2025 9:42am Immunizations Immunization Event Date Not Given Reason Dose Number Pmp Certified Project Manager Lot Number Reason(s) Given Vaccine Information Statement (VIS) Detail Administration Location COVID-19 mRNA, Comirnaty (Pfizer) February 24 COVID-19 mRNA, Comirnaty (Pfizer)March 17, 2021Fluzone TIV High-Dose 65YR+ August 28, 2024UT8437BAFPG [facility] Americainfluenza, unspecified formulationSeptember 2019influenza, unspecified formulationOctober 2020influenza, unspecified formulationNovember 2021influenza, unspecified formulationNovember neumococcal Conjugate Vaccine, 13 valentAugust 2018Tetanus, Diphtheria adult, 5 Lf pres free absDecember 2018 Vital Signs Vital Reading Result Reference Range Collection Date/Time Height 65 [in_i] October 03, 2025 9:97ibRadeyr09.15 kgNovember 2024 9:27amHeart Rate57 /wio88-898Yprujthb 2024 9:27amRespiratory rate12 /eek53-57Cgaadxgl 2024 9:27amBP Pknkglcn928 mm[Hg]100-140November 2024 9:27amBP Xoctoouws72 mm[Hg]60-100November 2024 9:27amBMI (Body Mass Index)30.1 kg/q3Ktilzqaa 2024 9:66ldEwbtqh30 [in_i]October 29, 2025 11:74raRfalof93.30 kg October 29, 2025 11:24amHeart Rate44 /cvc75-799Nmwlufoz 2024 11:24am Respiratory rate12 /yjg77-66Jipifiie 10th, 2025 11:24amBP Kdvunopf708 mm[Hg] 100-140December 2024 11:24amBP Smstjrsij17 mm[Hg]60-100December 2024 11:24amBMI (Body Mass Index)29.8 kg/a3Jjrbakfd 2024 11:24am Advance Directives Advance Directive Response Recorded Date/ Time Advance Directives Yes September 4:56pm Insurance Providers Guarantor Kareem Cabrerakerman Address [address] [address] [facility] [address]Fyvtfku Info.Home Phone: Payer Group Member ID Coverage Type Subscriber Relationship to Subscriber Effective Date Expiration Date Medicare [id number] Arabella Id: [id number] [address] [facility] [address] Home Phone: [facility] [id number] [place] Id: [id number] [address] [facility] [address] Home Phone: [facility]Washington [facility] Centerc[facility] Id: [id number] A Arabella Id: [id number] [address] [facility] [address] Home Phone: Email: none Encounters Encounter Location(s) Arrival/Admit Date Discharge/Departure Date Discharge/Departure Disposition Provider(s) Departed Physician/ Provider Office Visit -[facility] October 03, 2025 9:14am October 03, 2025 10:00am Discharged to home care or self care (routine discharge) Stevan Mitchell DO Departed Physician/ Provider Office Visit -[facility] October 29, 2025 10:43am October 29, 2025 12:00pm Discharged to home care or self care (routine discharge) Stevan Mitchell DO Recent Diagnosis Onset Date Admit Date Left lower quadrant abdominal pain Unknown October 03, 2025 9:14am Acute diverticulitis Unknown October 032024 9:14am Left lower quadrant abdominal pain Unknown October 29, 2025 10:43am Acute diverticulitis Unknown October 292024 10:43am Thoracic back pain Unknown October 10:43am Assessments Diagnosis Onset Date Resolution Status Admit Date Left lower quadrant abdominal pain noneactiveOctober 03 2025 9:14amAcute diverticulitisnoneactiveNovember 2024 9:14amLeft lower quadrant abdominal painnoneactiveDeceer 2024 10:43amAcute diverticulitisnoneactiveDeceer 2024 10:43amThoracic back painnoneactiveDeceer 2024 10:43am Plan of Treatment Author [facility] 2024 11:56amAbdomen soft w/ some tenderness w/o deep palpation No guarding or rebound tenderness. Completed Augmentin w/o resolution of pain Unable to take Flagyl and finished Cipro alone. Monitor for now but may require CT abdomen ER for increased pain Instructed on diet: full liquid diet, push fluids Complete Augmentin w/o resolution of pain Unable to take Flagyl and finished Cipro but again w/o complete resolution of pain His symptoms are mild and I have instructed him to slowly advance his diet. CT if symptoms rebound Mid thoracic pain after lifting. Tender to palpation over paraspinal muscles. Instructed to use heat/ice and Lidocaine Author Stevan [facility] 2024 9:58amAbdomen soft w/ some tenderness w/o deep palpation No guarding or rebound tenderness. ER for increased pain Instructed on diet: full liquid diet, push fluids Instructed to begin Augmentin and complete 7 day course of therapy ER for increased pain Future Tests Future scheduled test information is unavailable Pending Tests Pending diagnostic test information is unavailable Future Visits Future appointment information is unavailable Future Procedures Procedure Name Ordered Date Scheduled Date Braxton Diggs October 29, 2025 11:47am Future Medications Future medication information is unavailable Patient Instructions Patient instructions are unavailable
--- OUTSIDE RECORDS SUMMARY | 2025-11-07 08:02 | XMS_ITS | Clinical Summary ---
Author Organization [facility] Healthcare Address [address] [place] [address] Care Team Providers Care Patient Placement Coordinator Name Role Phone Stevan Mitchell Primary Care Provider [phone] Allergies No known active allergies Medications MedicationSigDispense QuantityRefillsLast FilledStart DateEnd DateStatus aspirin (ASPIR) 81 MG EC tablet Take 81 mg by mouth 1 (one) timeActive atorvastatin (Lipitor) 80 MG tablet Take 1 tablet by mouth in the eveningActive finasteride (Proscar) 5 MG tablet Take 1 tablet by mouth Daily12/13/2023ctive metoprolol succinate XL (Toprol-XL) 50 MG 24 hr tablet Take 1 tablet by mouth Daily08/14/2024ctive tamsulosin (Flomax) 0.4 MG 24 hr capsule Take 0.4 mg by mouth in the morning and 0.4 mg before bedtime.01/12/2024ctive traZODone (Desyrel) 50 MG tablet Take 1 tablet by mouth at bedtimeActive amLODIPine-benazepril (Lotrel) 5-20 MG capsule .YGBENUV6904/11/2024ctive buPROPion XL (Wellbutrin XL) 300 MG 24 hr tablet Take 300 mg by mouth Daily02/06/2025tive pantoprazole (ProtoNix) 40 MG EC tablet Take 40 mg by mouth in the morning. Take before meals. Do not crush, chew, or split.Active Active Problems ProblemNoted DateDiagnosed DateArthritis of left hip04/16/2025ilateral tinnitus 04/16/2025Heart jvmuxlt3404/16/2025Elevated PSA04/16/2025bdominal pain04/16/2025 Mixed conductive and sensorineural hearing loss of left ear with restricted hearing of right ear04/16/2025Nicotine mletuiqao27/28/2025 Overview (04/16/2025): Age started, PPD, age quit Internal derangement of right knee04/16/2025Pain in right knee04/16/2025Right inguinal tiigvd4904/16/20255337Ystkvjyrzvw06/31/2025Pure hypercholesterolemia 02/17/2025MI 29.0-29.9,adult02/14/20254590Yzxsnwmmfa25/28/2025Diverticulosis 02/14/2025Encounter for screening for malignant neoplasm of colon02/14/2025 Familial zgaqkagalwqqbnvornhc37/28/2025GERD (gastroesophageal reflux disease) 02/14/2025Lipoma of spermatic cord02/14/2025Obstructive sleep apnea syndrome 02/14/20259227Efudwidbts01/28/2025RLS (restless legs syndrome)02/14/2025Seasonal allergic pfznrlto13/28/2025bnormal findings on diagnostic imaging of skull and head, not elsewhere vggtykkybi20/22/4670Mokhmeoezocacn78/22/2023enign prostatic hyperplasia with urinary ywixsrbzbyr65/22/2023Erectile jgwifhtsaxn04/22/2023 Former zypiks1304/10/20231253Kzysqybhj82/22/2023Hypogonadism in male04/10/2023ervical spondylosis with ivlivqotik15/22/2023Microscopic bqqcnvbry52/22/2023Nocturia 04/10/20239595Oetclrv66/22/7043Biomkoihnxub53/22/4280Kqdgzhrlbnj52/22/2023Retrograde ilyfzcxtxky64/22/2023rteriosclerosis of coronary aipwgj8708/31/2022 Overview (04/16/2025): PTCA LAD - 2007 Primary urnvmmsmdhsh19/12/2022 Overview (04/16/2025): Carotid US: < 50% B/L - 05/2023 Malaise and pemrvqt0311/28/2013Retention of urine11/28/2013Coronary tqlrpvteleqhytf19/17/2012ngina uqztnndo47/17/2012Mixed nqzgzhotcgxnxd44/17/2012 Family History RelationNameStatusCommentsFatherDeceasedMotherDeceased Social History Tobacco UseTypesPacks/DayYears UsedDateSmoking Tobacco: NeverSmokeless Tobacco: Never Tobacco Cessation:Counseling Given: Not Answered Sex and Gender InformationValueDate RecordedSex Assigned at BirthNot on file Legal IpqYuea7302/01/2023 6:37 PM EDTGender IdentityNot on fileSexual Orientation Not on file Last Filed Vital Signs Vital SignReadingTime TakenCommentsBlood Odbwjtin934/7705 8:41 AM EDT Bmvgv756404/18/2025 8:41 AM EDTTemperature--Respiratory Souo6309 9:41 AM EDTOxygen Kinmobgzie93%10/09/2024 11:08 AM ESTInhaled Oxygen Concentration-- Zpuyiq02 kg (183 lb)04/18/2025 8:41 AM QQTFdzlec977.1 cm (5' 5 )04/18/2025 8:41 AM EDTBody Mass Index30.45004/18/2025 8:41 AM EDT Plan of Treatment Not on file Insurance Care Teams Team MemberRelationshipSpecialtyStart DateEnd Stevan Mitchell DO [address] [place] [address] PCP - GeneralInternal Medicine04/17/25
--- OUTSIDE RECORDS SUMMARY | 2025-11-07 08:02 | XMS_ITS | Clinical Summary ---
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 pmActive Tamsulosin HCl 0.4 MG capsule tamsulosin 0.4 mg capsule TAKE 1 CAPSULE BY MOUTH EVERY DAYActive traZODone 50 MG tablet Take 1 tablet by mouth at bedtime.06/23/2022ctive cyclobenzaprine 10 MG tablet Take 1 tablet by mouth at bedtime.06/23/2022ctive medicinal cannabis (MEDICINAL MARIJUANA) by Unknown route. 2 puffs once dailyActive Misc. Devices (Raised Toilet Seat) Misc Indications:Aftercare following left hip joint replacement surgery1 Units by Unknown route daily. 1 Each 10/07/2022ctive Diclofenac sodium (Voltaren) 1 % Gel gel Apply 2 g topically as needed.Active Aspirin [address] tablet Take 1 tab twice a day for 30 days. This medication is for blood clot prevention. 60 tablet 05/08/2023ctive Celecoxib 200 MG capsule Take 1 capsule by mouth 2 times daily. 84 capsule 06/19/2023Active Docusate 100 MG capsule Take 1 capsule by mouth 2 times daily. 60 capsule 05/08/2023ctive therapeutic multivitamin-minerals tablet Take 1 tablet by mouth at bedtime. 30 tablet 05/08/2023ctive omeprazole [address] capsule Take 1 capsule by mouth daily. 30 capsule 05/08/2023ctive oxyCODONE 5 MG tablet Indications:Acute postoperative pain of left kneeTake 1-2 tabs po q 4-6 hours prn pain. Wean as tolerated. 30 tablet 05/08/2023ctive Acetaminophen 325 MG tablet Take 2 tablets by mouth every 4 hours as needed for Mild Pain. 50 tablet ctive naloxone 4 MG/0.1ML 1 spray by Nasal route once for 1 dose. Hardesty into the nose as directed. Call 911. If no response in 2 minutes use a new nasal spray in other nostril. Repeat until help arrives. 1 Each 05/08/2023ctive Active Problems ProblemNoted DateDiagnosed DateOsteoarthritis of right knee05/08/2023rimary osteoarthritis of left hip10/10/2022 Family History Medical HistoryRelationNameCommentsDiabetesFatherDementiaMotherRelationName StatusCommentsFatherDeceasedMotherDeceased Social History Tobacco UseTypesPacks/DayYears UsedDateSmoking Tobacco: AwrumlPujenvrkqn702720 - 1988Smokeless Tobacco: NeverAlcohol UseStandard Drinks/WeekCommentsYes0 (1 standard drink = 0.6 oz pure alcohol)hard cider dailySex and Gender Information ValueDate RecordedSex Assigned at BirthNot on fileLegal XtlKjzy0607/08/2022 11:20 AM EDTGender IdentityNot on fileSexual OrientationNot on file Last Filed Vital Signs Vital SignReadingTime TakenCommentsBlood Kxipvvsl228/6806 3:49 PM EDT Pwrvc2778 3:49 PM APCMzzbvszezep76.3 ??C (97.4 ??F)06/01/2023 11:38 AM EDTRespiratory Uehw216705/09/2023 3:49 PM EDTOxygen Zyoghtditn06%05/09/2023 3:49 PM EDTInhaled Oxygen Concentration--Klvvhs87.4 kg (197 lb)06/01/2023 11:38 AM LCNJrfbst272.1 cm (5' 5 )06/01/2023 11:38 AM EDTBody Mass Index32.78006/01/2023 11:38 AM EDT Plan of Treatment Health MaintenanceDue DateLast DoneCommentsHEPATITIS C VIRUS QAYCBKGVY1955 VZXYSVC0010/20/1955TDAP (ADULT)1972LIPID TLZJKLINF12/01/1993COLORECTAL CANCER SCREENING SSXYAJICVE53/01/1998ZOSTER (SHINGLES) VACCINE (1 of 2) 2003ABDOMINAL AORTIC ANEURYSM HIGH RISK TYPVLP9210/20/2018PNEUMOCOCCAL VACCINE SERIES (2 of 2 - PCV20 or PCV21)COVID-19 VACCINE (3 - season), 02/24/2021INFLUENZA VACCINE (#1) 2025RSV VACCINE (1 - 1-dose 75+ series)2028HEP B VACCINEAged OutNo longer eligible based on patient's age to complete this topic Medical Devices ImplantedTypeAreaManufacturerDevice IdentifierShelf Expiration DateModel / Serial / LotBi Mentum Press Fit Cup 53 Implanted:Qty: 1 on 10/10/2022 by Lazarus Servin MD at [facility]: Hip [id number] / / [id number] Stem Sz 6 Implanted:Qty: 1 on 10/10/2022 by Lazarus Servin MD at [facility]: Hip [id number] / / [id number] Head 28mm Implanted:Qty: 1 on 10/10/2022 by Lazarus Servin MD at [facility]: Hip [id number] / / [id number] Mentum Liner Implanted:Qty: 1 on 10/10/2022 by Lazarus Servin MD at [facility]: Hip [id number] / / [id number] R 1 X 40 Us - [id number] Implanted:Qty: 2 on 05/08/2023 by Lazarus Servin MD at [facility]: Knee 10/19/2027/ / [id number] - Knee - [id number] Implanted:Qty: 1 on 05/08/2023 by Lazarus Servin MD at [facility]: Knee 11/19/2027/ / [id number] - Knee - [id number] Implanted:Qty: 1 on 05/08/2023 by Lazarus Servin MD at [facility]: Knee 12/20/2032/ / [id number] Knee System Tibial Base Fixed Bearing Implanted:Qty: 1 on 05/08/2023 by Lazarus Servin MD at [facility]: Knee [id number] / / [id number] - Knee - [id number] Implanted:Qty: 1 on 05/08/2023 by Lazarus Servin MD at [facility]: Knee 12/20/2027/ / [id number] Insurance * Guarantor: Seth Paris TypeRelation to PatientDate of BirthPhone Billing AddressPersonal/BdtlyyGkjx1955 [address] [address] Advance Directives For more information, please contact: [phone] (7:30 AM - 6PM Jaida/[facility], Monday-Monday) * Full Code (Latest Code Status on File) Date ActivatedDate InactivatedComments05/08/2023 10:16 AM * Full Code Date ActivatedDate MuerplmetwtLyarqzal94/21/2022 11:40 AM05/08/2023 10:16 AM Care Teams Team MemberRelationshipSpecialtyStart DateEnd Date Stevan Mitchell DO PCP - GeneralInternal Medicine08/03/22
--- OUTSIDE RECORDS SUMMARY | 2025-11-07 08:02 | XMS_ITS | Clinical Summary ---
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 Name Role Phone Unavailable Primary Care Provider Unavailabl e Allergies No known active allergies Medications MedicationSigDispense QuantityRefillsLast FilledStart DateEnd DateStatus tamsulosin ER (FLOMAX) 0.4 mg cp24 Take 0.4 mg by mouth twice daily.Active atorvastatin (LIPITOR) 80 mg tablet Take 80 mg by mouth once daily.Active metoprolol succinate ER (TOPROL XL) 50 mg 24 hr tablet Take 50 mg by mouth once daily.Active amLODIPine-Benazepril 5-40 mg per capsule Take 1 capsule by mouth once daily.Active finasteride (PROSCAR) 5 mg tablet Take 5 mg by mouth once daily.Active PARoxetine (PAXIL) 20 mg tablet Take 20 mg by mouth once daily.Active Social History Tobacco UseTypesPacks/DayYears UsedDateSmoking Tobacco: FormerSex and Gender InformationValueDate RecordedSex Assigned at BirthNot on fileLegal SexMale 10/21/2012 8:27 AM ESTGender IdentityNot on fileSexual OrientationNot on file Plan of Treatment Health MaintenanceDue DateLast DoneCommentsAbdominal Aortic Aneurysm Screening 3Anxiety Onmqapuce43/01/1971Depression Vverriwyo99/01/1971Hepatitis C Hzxwzymts94/01/1971DTaP,Tdap,Td Vaccine (1 - Tdap)1972Lipid Screening 1988CT Cqkqinczikxg10/01/1998Cologuard (FIT-DNA)1998Colonoscopy 1998Colorectal Cancer Tfrlhkgrt97/01/1998Diabetes Zderlfyed80/01/1998Fecal Occult Blood10/20/19981606Ibyxjevzpqoyi75/01/1998Pneumococcal Vaccine: 50+ (1 of 1 - PCV)2003Shingrix Vaccine (1 of 2)2003Advance Directive Discussion 5Covid-19 Vaccine (1 - 2024- season)2025Influenza Vaccine (#1) 2025RSV Vaccine (1 - 1-dose 75+ series)2028 Insurance
--- OUTSIDE RECORDS SUMMARY | 2025-11-07 08:02 | XMS_ITS | Clinical Summary ---
Author Organization [facility] Address [address] [place] [address] Care Team Providers Care Flower Arranger Name Role Phone tSevan Mitchell DO Primary Care Provider [phone] Allergies No known active allergies Medications MedicationSigDispense QuantityRefillsLast FilledStart DateEnd DateStatus tamsulosin (Flomax) 0.4 mg 24 hr capsule Take 0.4 mg by mouth 2 times daily.Active finasteride (Proscar) 5 mg tablet finasteride 5 mg tablet TAKE 1 TABLET BY MOUTH DAILYActive traZODone (Desyrel) 50 mg tablet trazodone 50 mg tablet TAKE 1 TABLET BY MOUTH EVERY DAY AT XAHCTZL9306/23/2022ctive cyclobenzaprine (Flexeril) 10 mg tablet cyclobenzaprine 10 mg tablet TAKE 1 TABLET BY MOUTH EVERY DAY AT BEDTIMEActive metoprolol succinate XL (Toprol-XL) 50 mg 24 hr tablet metoprolol succinate ER 50 mg tablet,extended release 24 hr Take 1 tablet by mouth daily06/11/2019Active aspirin 81 mg EC tablet Take 81 mg by mouth in the morning.Active buPROPion XL (Wellbutrin XL) 300 mg 24 hr tablet Take 450 mg by mouth 1 (one) time each day at the same time.Active amLODIPine-benazepriL (Lotrel) 5-20 mg capsule Take 1 capsule by mouth in the morning.Active atorvastatin (Lipitor) 80 mg tablet in the evening.06/11/2019Active pantoprazole (ProtoNix) 40 mg EC tablet Take 40 mg by mouth in the morning and at bedtime.02/29/2024ctive ondansetron ODT (Zofran-ODT) 4 mg disintegrating tablet DISSOLVE 1 (ONE) TABLET ON THE TONGUE EVERY 8 HOURS FOR 5 DAYS09/24/2024ctive Cialis 20 mg tablet Take 20 mg by mouth.11/27/2024tive Active Problems ProblemNoted DateDiagnosed TpkqTnxpjniqjoq55/31/2025Pure hypercholesterolemia 02/17/2025MI 29.0-29.9,adult02/14/20253862Bfsfigplsw26/28/2025Diverticulosis 02/14/2025Familial frhhheuxkcmiecczhmkt53/28/2025GERD (gastroesophageal reflux disease)02/14/2025Lipoma of spermatic cord02/14/2025OSA (obstructive sleep apnea)02/14/20255065Isbqwuzppj60/28/2025Right groin pain02/14/2025RLS (restless legs syndrome)02/14/2025Screening for malignant neoplasm of colon02/14/2025Seasonal allergic rgzaesyi72/28/2025Osteoarthritis of right knee/11/2023 Umbilical ynnirk1704/10/2023Sensorineural hearing loss04/10/2023Retrograde abdjavexrex16/22/2066Vzfhulqyuah82/22/9806Kihajaqkkeyr82/22/2023Obesity 04/10/20238955Dkvfomnb40/22/2023Microscopic dhbplfcaf37/22/2023Hypogonadism in male 04/10/2023High prostate specific antigen (PSA)04/10/20230296Qxhkubzkb91/22/2023 Former cjaseg4504/10/2023Erectile hujjyumfmgd00/22/2023enign prostatic hyperplasia with urinary pikrzwetlai95/22/6079Cotjpusglzozhf00/22/2023Weakness of limb04/10/2023ervical spondylosis with vwxipozcep44/22/2023bnormal findings on diagnostic imaging of skull and head, not elsewhere ynltoidmtz69/22/2023 Primary osteoarthritis of left hip10/10/2022oronary artery disease involving [place] coronary artery of [place] heart without angina umnjjtrh17/12/2022 Assessment & Plan (08/31/2022 11:54 AM EDT): Continue GDMT- ASA, lipitor, toprol Continue risk factor modifications- heart healthy diet, regular exercise as tolerated, and continuemedications. RTC 6 months Essential rdrttkvqkujc83/12/2022 Assessment & Plan (08/31/2022 11:53 AM EDT): 127/74 currently well controlled Continue all medications Renal function normal Mixed gxdcgkmayxtzaj78/12/2022 Assessment & Plan (08/31/2022 11:52 AM EDT): continue statin LDL 71.8 stable Pre-operative cardiovascular examination, high risk qjmitdh6808/31/2022 Assessment & Plan (08/31/2022 11:52 AM EDT): Revised Cardiac Risk Index for Pre-Operative Risk- 1 point Class II risk with 6% 30-day risk of , [place], or cardiac arrest Functional aerobic capacity limited by Osteoarthritis only- no acute cardiac symptoms currently From a Cardiology perspective pt may proceed with planning Orthopedic surgery- Lt hip, pt is a moderate cardiovascular risk for a moderate risk surgery. Pt may hold ASA 5-7 days prior and resume all medications post op as per Surgeon discretion. EKG without any acute concerns today. Hip pain11/30/2020umbar fuhznwizxmhgp85/09/2017Retention of urine11/28/2013 Malaise and hrmhamp0511/28/2013ngina fpcxskeo97/17/2012 Immunizations ImmunizationAdministration DatesNext DueUnspecified Sars-Cov-2 Vaccination 03/17/2021,02/24/2021 Family History Medical HistoryRelationNameCommentsDementiaMotherRelationNameStatusComments FatherDeceasedMotherAlive Social History Tobacco UseTypesPacks/DayYears UsedDateSmoking Tobacco: FormerCigarettes Tobacco Cessation:Counseling Given: Not Answered [place] Safety & EnvironmentAnswerDate RecordedFear of Current or Ex-PartnerNot on file01/11/2024Emotionally AbusedNot on file01/11/2024hysically AbusedNot on file01/11/2024Sexually AbusedNot on file01/11/2024hysically or Sexually Abused Not on file01/11/2024Sex and Gender InformationValueDate RecordedSex Assigned at BirthNot on fileLegal IoaTgds2805/18/2022 9:33 PM EDTGender IdentityNot on file Sexual OrientationNot on file Last Filed Vital Signs Vital SignReadingTime TakenCommentsBlood Trfsonaj525/76002/17/2025 9:27 AM EDT Ypgpi315102/17/2025 9:27 AM TGWCadwtimgkgw24 ??C (98.6 ??F)10/04/2021 12:46 PM EST Respiratory Rate--Oxygen Ttuqiakhtr43%02/17/2025 9:27 AM EDTInhaled Oxygen Concentration--Hnyjvk44.5 kg (184 lb)02/17/2025 9:27 AM MCSFdborq288.8 cm (5' 10 )02/17/2025 9:27 AM EDTBody Mass Index26. 9:27 AM EDT Plan of Treatment Health MaintenanceDue DateLast DoneCommentsCT Yuepcfkfdsza1953FIT-DNA 1955FIT1955FOBT1955Medicare Annual Wellness (AWV)1955 Seixoawdobakd1953epression Mlvxeubcf38/01/1965Adult Rhntivo3310/20/1975 Zoster Vaccines (1 of 2)2003Fall Risk Lsykjgftr42/01/2018Pneumococcal Vaccine: 50+ Years (2 of 2 - PPSV23, PCV20, or PCV21)COVID- 19 Vaccine ( season)504/, 03/17/2021, 02/24/2021, Additional history existsInfluenza Vaccine (#1)0/4Colonoscopy 407/4Colorectal Cancer Psqknvhct25/10/2034HIB VaccinesAged OutNo longer eligible based on patient's age to complete this topicHPV VaccinesAged OutNo longer eligible based on patient's age to complete this topicIPV Vaccines Aged OutNo longer eligible based on patient's age to complete this topic Meningococcal B VaccineAged OutNo longer eligible based on patient's age to complete this topicMeningococcal VaccineAged OutNo longer eligible based on patient's age to complete this topicRotavirus VaccinesAged OutNo longer eligible based on patient's age to complete this topic Insurance Care Teams Team MemberRelationshipSpecialtyStart DateEnd Stevan Mitchell DO [address] [place] [address] PCP - Matecpl72/12/22
--- OUTSIDE RECORDS SUMMARY | 2025-11-07 08:02 | XMS_ITS | Clinical Summary ---
Author Organization [facility] Address [address] 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 Name Role Phone Stevan Mitchell Primary Care Provider [phone] Social History Tobacco UseTypesPacks/DayYears UsedDateSmoking Tobacco: Never AssessedSex and Gender InformationValueDate RecordedSex Assigned at BirthNot on fileLegal Sex Male10/15/2022 6:43 PM ESTGender IdentityNot on fileSexual OrientationNot on file Last Filed Vital Signs Vital SignReadingTime TakenCommentsBlood Pressure--Pulse--Bcbryqicysx60.7 ??C (98 ??F)06/03/2022 10:48 AM EDTRespiratory Rate--Oxygen Saturation--Inhaled Oxygen Concentration--Pzoucw34 kg (187 lb 8 oz)06/03/2022 10:48 AM EDTHeight 163.8 cm (5' 4.5 )06/03/2022 10:48 AM EDTBody Mass Index31.69006/03/2022 10:48 AM EDT Plan of Treatment Not on file Medical Devices ImplantedTypeAreaManufacturerDevice IdentifierShelf Expiration DateModel / Serial / LotGraft, Biodesign, Otologic Repair, 0.6.-0.9cm Case [id number] Implanted:Qty: 1 on 05/11/2022 by Jamie Rojas, [facility] ImplantCOND MEDICAL INC10/13/[id number] / / [id number]:Converted from [facility]. Please see archived information for full log information.Niya Norwood 0.6mm Eva X 4.75mm Nitinol Fluoroplastic Case [id number] Implanted:Qty: 1 on 05/11/2022 by Jamie Rojas [facility] ImplantLeft: Ear [id number] / / [id number]:Converted from [facility]. Please see archived information for full log information. Additional Information:NIYA NORWOOD 0.6MM EVA X 4.75MM NITINOL FLUOROPLASTIC (Implants Care Teams Team MemberRelationshipSpecialtyStart DateEnd Date Stevan Mitchell DO [facility]03/17/22
--- NOTE | 2025-11-07 08:11 | CT_ITS ---
The [address] [address] Patient Name: SETH PARIS MRN: [id number] date: 1955 Sex: M Assigned Patient Location: LAB Current Patient Location: LAB Accession/Order Number: [id number] Exam Date: 11/07/2025 09:15 Report Date: 11/07/2025 10:06 At the request of: ZARA GALDAMEZ DO Procedure: CT abdomen pelvis w con CT ABDOMEN AND PELVIS WITH CONTRAST COMPARISON: 06/28/2024 CLINICAL DATA: Left lower quadrant pain for the past 2 weeks and gas. Spiral images were obtained through the abdomen and pelvis following oral and 100 mL of Omnipaque 300. This CT exam was performed using one or more following dose reduction techniques: Automated exposure control, adjustment of the mA and/or kV according to patient size, or use of iterative reconstruction technique. Limited cuts through the lung bases show no contributory findings. There is fatty infiltration of the liver. No calcified gallstones are noted. The spleen, pancreas and adrenal glands show no acute findings. There are symmetric renal nephrograms, without hydronephrosis. Renal cysts are present. The largest is exophytic at the lower pole on the left measuring approximately 4.8 cm in size. There is atherosclerotic plaque involving the aorta and iliac arteries. No enlarged lymph nodes or ascites are seen. The small bowel loops are not dilated. There is stool along the colon. Scattered colonic diverticula are visualized, greater on the left. There is multilevel lumbar laminectomy and fusion with posterior rods and pedicle screws. Degenerative changes are also seen. Images through the pelvis show normal caliber small bowel loops. No appendiceal inflammation is identified. There is mild distal colonic stool. Additional cecal and distal colonic diverticula are visualized, without associated active inflammation. The prostate is top normal in size and contains calcification. The urinary bladder is poorly distended for evaluation. No ascites is seen. Patient has a left hip prosthesis with associated streak artifact. CT/CT abdomen pelvis w con IMPRESSION: FATTY LIVER. RENAL CYSTS. NO BOWEL OR URINARY TRACT OBSTRUCTION. DIVERTICULOSIS. NO OTHER ACUTE FINDINGS. Impression dictated by: Ludivina Joseph M.D. 11/07/2025 10:06 AM Dictation Location: [employer] Electronically authenticated by: [id number] Y Date: 11/07/2025 10:06
[2025-11-07 08:14] LABS: Estimated GFR (African America >60 (>=60 mL/min/1.73m^2); Estimated GFR (Non-African Ame >60 (>=60 mL/min/1.73m^2)
== END 2025-11-07 07:59 | disposition home or self-care (01) ==
LOC: LAB 07:59
PROVIDERS: Pathology Anatomic Pathology & Clinical Pathology; PCP Internal Medicine; Visit Provider Internal Medicine
DX: R10.32 Left lower quadrant pain (principal); K76.0 Fatty (change of) liver, not elsewhere classified; N28.1 Cyst of kidney, acquired; K57.90 Diverticulosis of intestine, part unspecified, without perforation or abscess without bleeding
CPT/HCPCS: 36415; 74177; 82565; Q9967